=== PATIENT | male | born 1955 | race Caucasian/White ===

== ENCOUNTER → 2022-08-23 | Outpatient (CLI) | payer MEDICARE, BC, SELFPAY ==
[2022-08-26 14:08] LABS: QNTFERON TB Mitogen Value > 10.00 IU/mL (.); QNTFERON TB Nil Value 0.05 IU/mL (.); QNTFERON TB1+ Ag Value 0.04 IU/mL (.); QNTFERON TB2+ Ag Value 0.04 IU/mL (.)
[2022-08-26 18:25] LABS: QNTIFERON TB Positive Criteria Negative (Negative)
== END | disposition home or self-care (01) ==
LOC: MTLAB 08:58
PROVIDERS: PCP Family Medicine; Referring Provider Dermatology; Visit Provider Dermatology
DX: L40.0 Psoriasis vulgaris (principal); Z79.899 Other long term (current) drug therapy
CPT/HCPCS: 36415; 86480

== ENCOUNTER → 2023-12-05 | Outpatient (CLI) | payer MEDICARE, BC, SELFPAY ==
--- NOTE | 2023-12-05 08:30 | PET_ITS ---
EXAMINATION: FDG PET-CT INDICATIONS: A 68-year-old male with history of pulmonary nodularity. COMPARISON EXAMINATION: None available INDEX LESION SIZE SUV INTERPRETATION Right upper lung field, right upper lobe 7.1-mm 4.1 Fulfills quantitative criteria for viable neoplasm TECHNIQUE: Following the intravenous administration of 14.67 mCi of F-18 deoxyglucose via the left antecubital fossa, multiplanar image acquisitions of the neck, chest, abdomen and pelvis to level of mid thigh, obtained at one hour post radiopharmaceutical administration contemporaneously interpreted with the current CT of the neck, chest, abdomen and pelvis, to level of mid thigh, dated 12/05/23 via coregistration reveals: BLOOD GLUCOSE LEVEL:?? 87 mg/dl?HEIGHT:?65 inches?WEIGHT: 160 lbs. FINDINGS: Head/Neck: There is no evidence of abnormal increased glucose metabolism in the pharyngeal mucosal space, parapharyngeal space, bilateral-lateral and anterior neck, hypopharynx and distribution of the laryngeal structures. CHEST: Facilitated uptake is noted in the posterior aspect of the right upper lung, right upper lobe. The calculated maximal standard uptake value is 4.1. The maximal axial diameter of the corresponding parenchymal density is 7.1-mm. Prominent radiopharmaceutical concentration is identified in the left ventricular myocardium commensurate with the [place]. Pertinent chest CT findings are as follows. There is atherosclerotic calcification defined in the thoracic aorta without evidence of dilatation-aneurysm formation. Coronary arterial calcification is observed. Bilateral axillary soft tissue densities are non-glucose avid. Abdomen/Pelvis: Normal physiologic distribution of the radiopharmaceutical is apparent in the hepatic (2.9) and splenic parenchyma, both renal units, bladder and visualized intestinal tract. The abdomen and pelvis CT findings are as follows. There is atherosclerotic calcification defined in the abdominal aorta without evidence of dilatation-aneurysm formation. Pelvic arterial calcification is observed. There is evidence of prior vasectomy. Right and left inguinal soft tissue densities are ametabolic. Calcified phlebolith formation is noted in the left lower hemipelvis. Colonic diverticulosis is noted without evidence of diverticulitis. Skeletal: Degenerative changes are noted in the cervical, thoracic and lumbar spine without evidence of increased radiopharmaceutical concentration. PET/PET/CT Tumor Base -Thigh Init IMPRESSION: 1. ABNORMAL EXAMINATION INDICATIVE OF MALIGNANT VIABLE NEOPLASM. 2. Increased tracer uptake noted in the right hemithorax pulmonary parenchyma, right upper lobe, fulfills quantitative criteria for malignant transformation. Histopathologic analysis is recommended. (Gagan et al, Annals of Internal Medicine, 138:724, 2003). 3. No other quantitatively significant hypermetabolic abnormalities are noted. There is no scintigraphic evidence of distant metastatic disease. Electronic Signature Miguel Farrell D.O. Accurate Quantification of SUVs for this report are calculated using the exclusive [employer], (U.S. Patent No. [phone] [id number] [phone] [id number] [phone] [place] patent [id number] [phone] [phone] ). Standardization and correction of the FDG SUV metric exclusively available with [employer] intellectual property, allow for vendor non-specific objective quantitative sequential FDG PET-CT comparison and otherwise unobtainable optimization of the sensitivity and specificity of the examination. [email or web address] Electronically Signed: Miguel Farrell DO at 8:21 EDT ,
== END | disposition home or self-care (01) ==
PROVIDERS: PCP Family Medicine; Referring Provider Nurse Practitioner Family; Visit Provider Nurse Practitioner Family
DX: R91.1 Solitary pulmonary nodule (principal)
CPT/HCPCS: 78815; A9552

== ENCOUNTER 2024-01-02 18:33 | Emergency (ER) | payer MEDICARE, BC, SELFPAY ==
[2024-01-02] VITALS (13 sets, daily range): BP systolic 103–160; BP diastolic 47–115; PULSE 84–112; RESP 11–22; TEMP 37.1–37.7; O2SAT 95–99; BMI 28.4
--- NOTE | 2024-01-02 20:46 | EDS_ITS ---
HPI History of Present Illness Chief Complaint: General Illness Narrative Narrative: 68-year-old male presenting with generalized weakness, chills, cough. He states has been like this for 2 days. He states he has not had a fever and he checked his temperature. He states he has not taken any ibuprofen or Tylenol because it was not prescribed by a physician. Patient also states it is really hard for him to walk although he states he was able to walk to his car and drive here and walk into the emergency room. He states he has a history of cardiac stents and he does not want to mess anything up. He states he has decreased p.o. intake because he has constipation and does not want to make it worse. He has had constipation for several months and takes stool softeners and sporadically makes stool. He does not have any abdominal pain. No urinary symptoms. He has not had any sick contacts. Has not eaten anything exotic. No recent travel. [facility] Medical History HTN (hypertension) Lung nodule Allergy/AdvReac Type Severity Reaction Status Date / Time Penicillins Allergy Mild Hives Verified 01/02/24 18:36 Surgical History Hx of cardiac catheterization Social History Smoking Status: Former smoker ROS ROS ED ROS Narrative Generalized weakness Constitutional Constitutional ED: Denies chills, fever(s) or sweats Eyes Eyes: Denies blurry vision or change in vision ENT ENT ED: Denies ear pain or sore throat Cardiovascular Cardiovascular: Denies chest pain, palpitations or racing heartbeat Respiratory/Chest Respiratory/Chest: Reports cough; Denies dyspnea or sputum Gastrointestinal Gastrointestinal: Reports constipation; Denies abdominal pain, diarrhea, nausea or vomiting Genitourinary Genitourinary ED: Denies dysuria, hematuria or urinary frequency Musculoskeletal Musculoskeletal: Denies arthralgias, myalgias or neck pain Integumentary Denies abscess, Abrasions or rash Neurologic Neurologic: Denies headache(s), paresthesias or weakness Psychiatric Psychiatric: Denies anxiety, depression, suicidal ideation or suicidal thoughts Endocrine Endocrinology: Denies polydipsia or polyuria EXAM Physical Exam Const Vital Signs: 01/02/24 18:34 01/02/24 18:35 01/02/24 19:04 Temperature 99.7 F H 99 F Temperature Source Temporal Oral Pulse Rate 112 H 99 Respiratory Rate 22 H 19 H Respiratory Effort Short of Breath Respiratory Pattern Normal Blood Pressure 160/115 H 145/73 H Blood Pressure Mean 130 97 Pulse Ox 99 96 Oxygen Delivery Method Room Air Room Air 01/02/24 19:47 01/02/24 20:00 01/02/24 20:30 Temperature 99.8 F H Temperature Source Oral Pulse Rate 100 99 97 Respiratory Rate 16 11 L Respiratory Effort Respiratory Pattern Blood Pressure 119/56 L 123/57 H 131/64 H Blood Pressure Mean 77 75 83 Pulse Ox 95 96 Oxygen Delivery Method Room Air 01/02/24 20:45 01/02/24 21:00 01/02/24 21:15 Temperature Temperature Source Pulse Rate 94 Respiratory Rate 14 Respiratory Effort Respiratory Pattern Blood Pressure 124/97 H 120/63 117/63 Blood Pressure Mean 103 81 79 Pulse Ox 96 Oxygen Delivery Method 01/02/24 21:30 01/02/24 21:45 01/02/24 21:55 Temperature 98.8 F Temperature Source Oral Pulse Rate 88 88 Respiratory Rate 13 13 Respiratory Effort Respiratory Pattern Blood Pressure 112/61 111/47 L 111/47 L Blood Pressure Mean 78 57 68 Pulse Ox 96 96 96 Oxygen Delivery Method Room Air 01/02/24 23:06 Temperature 99.1 F Temperature Source Pulse Rate 84 Respiratory Rate 16 Respiratory Effort Respiratory Pattern Blood Pressure 103/58 L Blood Pressure Mean 73 Pulse Ox 96 Oxygen Delivery Method Positive well nourished General Appearance ED: NAD; Negative for pallor HEENT Reports moist mucous membranes Eyes PERRL and EOMs intact bilaterally General Eye ED: Negative for pale conjunctiva Chest Wall inspection of chest normal Resp normal respiratory effort and clear to auscultation bilaterally Auscultation: Negative for rales, rhonchi or wheezes Cardio regular rate and regular rhythm GI normal to inspection, nondistended, normoactive bowel sounds Extremity normal to inspection Neuro oriented x3 and CN's II-XII intact bilaterally Sensorium / Orientation: alert Motor Exam: strength 5/5 throughout Psych mental status grossly normal Skin no wounds General Skin Exam: Negative for jaundice or pallor MDM MDM MDM Narrative Medical decision making narrative: Patient presenting with fatigue, chills, without fever. Initial vital signs show tachycardia and tachypnea. Differential includes pneumonia, viral syndrome, dehydration, anemia. CBC was obtained to assess white blood cell count, hemoglobin, platelets. BMP to assess renal function, electrolytes, glucose. Chest x-ray to rule out pneumonia. Patient given IV fluids. CBC and BMP unremarkable. COVID, RSV, influenza all negative. Patient was ambulated in the hallway and maintained O2 sats 96% or higher. I do not believe he needs any further workup. I discussed this with him recommend plenty of fluids. He is to alternate Tylenol ibuprofen for fevers or bodyaches. Return precautions discussed. Impression: 1. Generalized weakness 2. Chills Lab Data Attestation: I reviewed the patient's lab results. Labs: Laboratory Results - last 24 hr 01/02/24 20:57 WBC 5.4 RBC 4.86 Hgb 14.0 Hct 43.2 MCV 88.9 MCH 28.8 MCHC 32.4 RDW Std Deviation 40.8 RDW Coeff of Ollie 12.4 Plt Count 81 L MPV 11.9 Immature Gran % (Auto) 0.600 Neut % (Auto) 87.2 H Lymph % (Auto) 3.7 L [place] % (Auto) 7.9 Eos % (Auto) 0.2 Baso % (Auto) 0.4 Absolute Neuts (auto) 4.7 Absolute Lymphs (auto) 0.20 L Nucleated RBC % 0 Differential Comment SCANNED Sodium 138 Potassium 3.9 Chloride 107 Carbon Dioxide 22.0 Anion Gap 9 BUN 23 H Creatinine 1.21 Estim Creat Clear Calc 56.12 Est GFR (MDRD) Af Amer 77 Est GFR (MDRD) Non-Af 63 BUN/Creatinine Ratio 19.0 Glucose 94 Calcium 9.2 Radiography Diagnostic Testing: Clinical Impression(s) from Imaging Studies Chest X-Ray 01/02/24 21:35 IMPRESSION: Right pulmonary nodule identified on 12/05/2023 is not well visualized radiographically. No additional acute findings. Electronically Signed: Dominick Brown DO at 22:06 EDT , Discharge Plan Triage Chief Complaint: General Illness ED Provider: Thad Morris Dx/Rx/DC Orders Instructions: ED Viral Syndrome (Adult), ED Weakness (Uncertain Cause) Primary Care Provider: Morro Solorio Referrals: Morro Solorio MD [Primary Care Provider] - Print Language: [place] Citizen Disposition Disposition: Home, Self Care Discharge Date/Time: 01/02/24 23:11
[2024-01-02] MEDS: 0.9% Normal Saline (1000mL) 1,000 ML 999 ML IV (20:55)
[2024-01-02 21:07] LABS: Absolute Neutrophil Count 4.7 X10^3/uL (2.0-7.7); Basophil# 0.02 X10^3/uL; Basophil% 0.4 % (0-1); Eosinophil# 0.01 X10^3/uL; Eosinophils% 0.2 % (0-5); Hematocrit 43.2 % (40-54); Lymphocyte % 3.7 % (19-41); Mean Corp Hgb Conc 32.4 g/dL (32-36); Mean Corpuscular Hgb 28.8 pg (27.0-32.0); Mean Corpuscular Volume 88.9 fL (80-94); Mean Platelet Vol. 11.9 fl (6.2-12.0); Monocyte# 0.43 X10^3/uL; Monocyte% 7.9 % (0-10); NRBC Flagged by Analyzer 0 % (0-5); Neutrophil # 4.73 X10^3/uL (2.7-7.7); Neutrophil % 87.2 % (47-70); POSITIVE COUNT YES; POSITIVE DIFFERENTIAL YES; Platelet Count 81 K/mm3 (150-450); RBC Distribution Width CV 12.4 % (11.6-14.6); RBC Distribution Width SD 40.8 fl (35.1-43.9); Red Blood Count 4.86 M/mm3 (4.6-6.2); White Blood Count 5.4 K/mm3 (4.4-11.0)
[2024-01-02 21:16] LABS: Differential Indicated SCAN CRITERIA MET
[2024-01-02 21:20] LABS: Anion Gap 9 (5-15); BUN 23 mg/dL (7-18); Calcium,Total 9.2 mg/dL (8.5-10.1); Chloride 107 mmol/L (98-107); Creatinine, Serum 1.21 mg/dL (0.70-1.30); EST Glomerular Filtration Rate 63 mL/min (>60); Est Glom Filt Rate - Afr Amer 77 mL/min (>60); Estimated Creatinine Clearance 56.12 ml/min; Glucose 94 mg/dL (74-106); Potassium 3.9 mmol/L (3.5-5.1); Sodium Level 138 mmol/L (136-145)
--- NOTE | 2024-01-02 21:35 | RAD_ITS ---
RAD/Chest 1 View (Portable) IMPRESSION: Right pulmonary nodule identified on 12/05/2023 is not well visualized radiographically. No additional acute findings. Electronically Signed: Dominick Brown DO at 22:06 EDT ,
[2024-01-02 21:50] LABS: Differential Comment SCANNED
== END 2024-01-02 23:11 | disposition home or self-care (01) ==
PROVIDERS: Emergency Provider Student in an Organized Health Care Education/Training Program; PCP Family Medicine; Visit Provider Student in an Organized Health Care Education/Training Program
DX: R53.1 Weakness (principal); Z87.891 Personal history of nicotine dependence; R68.83 Chills (without fever); Z95.5 Presence of coronary angioplasty implant and graft; I10 Essential (primary) hypertension
CPT/HCPCS: 71045; 80048; 85025; 87631; 99283; A4216

== ENCOUNTER 2024-02-17 05:25 | Emergency (ER) | payer MEDICARE, BC, SELFPAY ==
[2024-02-17 05:25] VITALS: BP 150/87; PULSE 98; RESP 16; TEMP 36.6; O2SAT 96
--- NOTE | 2024-02-17 05:39 | CT_ITS ---
EXAM: CT ABDOMEN AND PELVIS WITH INTRAVENOUS CONTRAST CLINICAL INDICATION: abd pain post thoracici surgery -- IV PO Contrast TECHNIQUE: Helically acquired images were obtained of the abdomen and pelvis with intravenous contrast. This CT exam was performed using one or more of the following dose reduction techniques: automated exposure control, adjustment of the mA and/or kV according to patient size, and/or use of iterative reconstruction technique. CONTRAST: 100 cc of Isovue-370 IV. With oral contrast. RADIATION DOSE: CTDIvol = 20.18 mGy, DLP = 1124.60 mGy-cm COMPARISON: No relevant prior studies available. FINDINGS: LOWER THORAX: Small right pleural effusion and atelectasis in the right lung base. Thickening of the interlobular septa in the right lung base consistent with interstitial disease. Coronary artery calcifications. No cardiomegaly. ABDOMEN: LIVER: Unremarkable. Homogeneous. No focal mass. GALLBLADDER AND BILE DUCTS: Unremarkable. No calcified gallstones. No gallbladder distention or wall edema. No intra- or extrahepatic biliary ductal dilation. PANCREAS: Unremarkable. No focal cystic or solid mass. SPLEEN: Unremarkable. Normal size without focal cystic or solid mass. ADRENALS: Unremarkable. No nodules. KIDNEYS AND URETERS: Unremarkable. Normal renal size and position. No hydronephrosis. STOMACH AND BOWEL: Unremarkable. No stomach or bowel distention. No focal inflammatory change. PELVIS: APPENDIX: No evidence of acute appendicitis. BLADDER: Unremarkable. REPRODUCTIVE: Unremarkable as visualized. No mass. ABDOMEN and PELVIS: INTRAPERITONEAL SPACE: Unremarkable. No ascites or other fluid collection. No free air. BONES/JOINTS: Unremarkable. No suspicious lytic or blastic abnormality. SOFT TISSUES: Small amount of gas in the deep soft tissues of the right chest wall posterolaterally. No discrete abdominal or pelvic wall hernia. VASCULATURE: Intrarenal abdominal aortic aneurysm measuring 3.4 cm. LYMPH NODES: Unremarkable. No enlarged lymph nodes. CT/Abdomen/Pelvis WITH Contrast IMPRESSION: 1. No acute abdominal pelvic abnormality. 2. Intrarenal abdominal aortic aneurysm measuring 3.4 cm. Recommend abdomen/pelvis CT or MR imaging follow-up in 3 years. 3. Small amount of gas in the deep soft tissues of the right chest wall posterolaterally. 4. Small right pleural effusion and atelectasis in the right lung base. 5. Thickening of the interlobular septa in the right lung base consistent with interstitial disease. 6. Coronary artery disease. Electronically Signed: Juice Riddle MD at 7:47 EDT ,
--- NOTE | 2024-02-17 05:41 | EDS_ITS ---
HPI HPI - GI History of Present Illness Chief Complaint: Chest Other Informant: patient Abdominal Pain/Flank Pain Onset: Days Context: Gradual Onset Timing: Continuous Quality: Aching Location: RUQ and Right Flank Current Severity: Moderate Maximum Severity: Moderate Worsened by: Movement Relieved by: Nothing Nausea/Vomiting/Emesis GI Symptom: Negative for Nausea or Vomiting Diarrhea/Melena/Hematochezia GI Symptom: Positive for - (Constipation.); Negative for Diarrhea, Melena or Hematochezia Onset: Days Associated Symptoms Associated Symptoms: Negative for Dysuria, Frequency, Hematuria or Urgency Narrative Narrative: 68-year-old male status post recent right chest surgery to remove a lung nodule that may be cancerous. Said he did not have any metastases. He has a prior history of CAD with 4 stents and a prior LA. Patient states he had the surgery around the was discharged from [facility] in he had right- sided abdominal right-sided chest discomfort since the surgery. Worse with movement. He has been on oxycodone for pain but he has been very constipated. Denies vomiting. Denies fever or dysuria. Prior similar symptoms: No Recent Illness/Hospitalization: Yes [facility] Medical History HTN (hypertension) Lung nodule Home Medications ?Medication ?Instructions ?Recorded ?Last Taken ?Type aspirin 81 mg capsule 81 mg PO DAILY 02/17/24 Unknown History atorvastatin 80 mg tablet 80 mg PO DAILY 02/17/24 Unknown History carvedilol 6.25 mg tablet 6.25 mg PO BID 02/17/24 Unknown History ezetimibe 10 mg tablet 10 mg PO DAILY 02/17/24 Unknown History lisinopril 5 mg tablet 5 mg PO DAILY 02/17/24 Unknown History oxycodone 5 mg tablet 5 mg PO TID PRN PRN pain 02/17/24 Unknown History Allergy/AdvReac Type Severity Reaction Status Date / Time Penicillins Allergy Mild Hives Verified 02/17/24 05:26 Surgical History Hx of cardiac catheterization Social History Smoking Status: Former smoker ROS ROS ED ROS Narrative Abdominal pain. Constipation. Review of Systems ROS Unobtainable: Denies due to encephalopathy Constitutional Constitutional ED: Denies chills or fever(s) ENT ENT ED: Denies ear pain Cardiovascular Cardiovascular: Reports chest pain Respiratory/Chest Respiratory/Chest: Denies cough or dyspnea Gastrointestinal Gastrointestinal: Reports abdominal pain and constipation; Denies diarrhea, melena, nausea or vomiting Genitourinary Genitourinary ED: Denies dysuria or hematuria Musculoskeletal Musculoskeletal: Denies arthralgias or back pain Integumentary Denies abscess, Abrasions or rash Neurologic Neurologic: Denies headache(s) Psychiatric Psychiatric: Denies anxiety or depression Endocrine Endocrinology: Denies polydipsia or polyphagia Hematologic/Lymphatic Hematologic/Lymphatic: Denies easy bleeding Allergic/Immunologic Allergic/Immunologic ED: Denies mouth swelling, tongue swelling or urticaria EXAM Physical Exam Narrative Exam Narrative: Well-appearing 68-year-old male. Vital signs stable afebrile. Pulse ox 96% on room air no hypoxia. H EENT exam unremarkable. Allergenics members. Neck nontender no JVD. Lungs clear to auscultation bilaterally. Heart regular rhythm rate about 95 no murmur. Chest wall and ribs Eila is mild tenderness to the right side chest wall is a surgical wound on the right posterior lateral chest. There is no redness or warmth. No crepitus or subcu air. Abdomen soft nondistended normal bowel sounds without peritoneal signs. His surgical wound on his right lateral abdomen. He is mildly tender around there. The site is dry and clean. His dressing in place. No hernia or mass on his abdominal exam. No signs of obstruction. Back nontender. Neurologically he is awake and alert. Answering questions and following commands. Const Vital Signs: 02/17/24 05:25 02/17/24 05:25 02/17/24 07:25 Temperature 98 F Temperature Source Oral Pulse Rate 98 94 Respiratory Rate 16 20 H Respiratory Effort Normal Non-Labored Blood Pressure 150/87 H 168/78 H Blood Pressure Mean 108 108 Pulse Ox 96 96 Oxygen Delivery Method Room Air Room Air Positive well nourished and well developed; Negative for obese, cachectic, contractures or unkempt General Appearance ED: well developed and NAD; Negative for unkempt, cachectic, contractures or pallor Nutritional Appearance: Negative for cachectic or obese HEENT Reports dry mucous membranes normocephalic and atraumatic; Negative for trauma or tenderness Mouth ED: Yes dry mucous membranes Mouth: dry mucous membranes Eyes PERRL and EOMs intact bilaterally General Eye ED: Negative for pale conjunctiva or scleral icterus Neck no lymphadenopathy, supple and no JVD General: Negative for tenderness Lymph Lymphatic: Negative for other Resp normal respiratory effort and clear to auscultation bilaterally Effort and Inspection: Negative for respiratory distress Auscultation: Negative for rales, rhonchi, wheezes or diminished lung sounds Cardio regular rate, regular rhythm, S1 normal heart sound, S2 normal heart sound and no murmurs Rate: Negative for bradycardia or tachycardic Rhythm: Negative for abnormal rhythm GI non-distended and no masses; Negative for non-tender GI Narrative: Well-healing right lateral abdominal incision. Mild tenderness or. No redness or warmth. No discharge or drainage. Inspection: Negative for abdominal distention Auscultation: normoactive bowel sounds Palpation: soft, tender and rebound tenderness present; Negative for guarding, mass or pulsatile mass Back/Spine no CVA tenderness General Back: Negative for CVA tenderness Cervical Spine: Negative for cervical spine tenderness Thoracic Spine / Upper Back: Negative for thoracic spinal tenderness Lumbar Spine / Lower Back: Negative for lumbar spinal tenderness Extremity full ROM General Extremety ED: Negative for edema or tenderness General Extremity: Negative for edema Neuro CN's II-XII intact bilaterally and moves all extremities Sensorium / Orientation: alert, oriented to person, oriented to place and oriented to time; Negative for orientation impaired, confused, lethargic or stuporous Motor Exam: strength 5/5 throughout Psych mental status grossly normal and thought process normal Appearance: Negative for unkempt Attitude: No agitated Mood & Affect: Negative for depressed, anxious or tearful Skin no wounds General Skin Exam: Negative for jaundice or pallor Lesions: no lesions Rashes: no rashes Trauma: Negative for abrasion Nails: Negative for discolored MDM MDM MDM Narrative Medical decision making narrative: 68-year-old male status post right-sided lung nodule that ended up being cancerous was removed right-sided abdominal and right lateral rib cage and chest wall pain. He did not waiting for pain due to his constipation. Chest x-ray and CAT scan his abdomen will be obtained along with screening labs. Repeat exam patient is doing well at 8:20 AM. He and I went over all his test results including chest x-ray and CAT scan. There is really no significant acute findings. He does have a small infrarenal abdominal aneurysm which of the follow-up with. His surgical sites appear to be healing appropriately. He is almost out of his pain medication will be written for prescription of Percocet for pain. Given a dose of morphine here and Zofran. And outpatient follow-up with his cardiothoracic surgeon. Tito at home for his constipation. History & Record Review Discussion w/independent historian: Patient Additional record(s) reviewed:: Prior inpatient record, Prior outpatient record, Prior ED visit, Prior labs and No prior records Lab Data Attestation: I reviewed the patient's lab results. Lab results narrative: CBC shows white count 11. H&H 12.8 and 38.6. Platelets 144. Electrolytes show sodium 134 gap 6. Normal BUN is 17 creatinine 0.8. Glucose 119. Liver enzymes normal. Labs: Laboratory Results - last 24 hr 02/17/24 06:10 WBC 11.0 RBC 4.43 L Hgb 12.8 L Hct 38.6 L MCV 87.1 MCH 28.9 MCHC 33.2 RDW Std Deviation 40.0 RDW Coeff of Ollie 12.7 Plt Count 144 L MPV 12.6 H Immature Gran % (Auto) 0.900 Neut % (Auto) 81.4 H Lymph % (Auto) 5.1 L [place] % (Auto) 11.1 H Eos % (Auto) 1.2 Baso % (Auto) 0.3 Absolute Neuts (auto) 9.0 H Absolute Lymphs (auto) 0.56 L Nucleated RBC % 0 Sodium 134 L Potassium 4.5 Chloride 102 Carbon Dioxide 26.0 Anion Gap 6 BUN 17 Creatinine 0.89 Est GFR (MDRD) Af Amer 110 Est GFR (MDRD) Non-Af 91 BUN/Creatinine Ratio 19.2 Glucose 119 H Calcium 9.0 Total Bilirubin 1.00 AST 30 ALT 86 H Alkaline Phosphatase 92 Total Protein 7.8 Albumin 3.2 Globulin 4.6 H Albumin/Globulin Ratio 0.7 L Radiography Chest X-Ray - ED: 2 View, Read by ED Physician, Normal, Heart, Lungs, Mediastinum, Bony Structures, No Acute Disease and Chronic Changes Diagnostic Testing: Clinical Impression(s) from Imaging Studies Abdomen/Pelvis CT 02/17/24 05:39 IMPRESSION: 1. No acute abdominal pelvic abnormality. 2. Intrarenal abdominal aortic aneurysm measuring 3.4 cm. Recommend abdomen/pelvis CT or MR imaging follow-up in 3 years. 3. Small amount of gas in the deep soft tissues of the right chest wall posterolaterally. 4. Small right pleural effusion and atelectasis in the right lung base. 5. Thickening of the interlobular septa in the right lung base consistent with interstitial disease. 6. Coronary artery disease. Electronically Signed: Juice Riddle MD at 7:47 EDT , Chest X-Ray 02/17/24 07:33 IMPRESSION: New small layering right pleural effusion with underlying atelectasis Electronically Signed: Jose Nobles MD at 8:12 EDT , Chest x-ray, 2 views, AP and lateral interpreted by myself shows no acute abnormality. Normal cardiac silhouette. Normal lung bermeo. Small right pleural effusion. No pneumothorax. No pneumonia. Discharge Plan Triage Chief Complaint: Chest Other ED Provider: Karl Ross Dx/Rx/DC Orders Clinical Impression: Post-op pain, History of lung cancer, History of thoracic surgery, Acute constipation Instructions: ED Constipation (Adult) Prescriptions: No Action oxycodone 5 mg tablet 5 mg PO TID PRN PRN (Reason: pain) aspirin 81 mg capsule 81 mg PO DAILY atorvastatin 80 mg tablet 80 mg PO DAILY carvedilol 6.25 mg tablet 6.25 mg PO BID ezetimibe 10 mg tablet 10 mg PO DAILY lisinopril 5 mg tablet 5 mg PO DAILY Primary Care Provider: Morro Solorio Referrals: Morro Solorio MD [Primary Care Provider] - As Needed Activity Restrictions/Additional Instructions: Follow-up with your cardiothoracic surgeon from [facility] Dr. Tadeo as scheduled. Return if you are feeling worse. Percocet for pain. Plenty of fruits, vegetables, fiber and walking to help get your bowels moving again. GoLytely 16 ounce glass every hour until you have a large bowel movement. Print Language: [place] Disposition Disposition: Home, Self Care
[2024-02-17 06:13] LABS: Absolute Lymphocyte Count 0.56 X10^3/uL (0.83-4.51); Basophil# 0.03 X10^3/uL; Basophil% 0.3 % (0-1); Eosinophil# 0.13 X10^3/uL; Eosinophils% 1.2 % (0-5); Hematocrit 38.6 % (40-54); Hemoglobin 12.8 g/dL (13.0-16.5); Lymphocyte # 0.56 X10^3/ul (0.83-4.51); Lymphocyte % 5.1 % (19-41); Mean Corp Hgb Conc 33.2 g/dL (32-36); Mean Corpuscular Hgb 28.9 pg (27.0-32.0); Mean Corpuscular Volume 87.1 fL (80-94); Mean Platelet Vol. 12.6 fl (6.2-12.0); Monocyte# 1.22 X10^3/uL; Monocyte% 11.1 % (0-10); NRBC Flagged by Analyzer 0 % (0-5); Neutrophil # 8.95 X10^3/uL (2.7-7.7); Neutrophil % 81.4 % (47-70); POSITIVE DIFFERENTIAL YES; Platelet Count 144 K/mm3 (150-450); RBC Distribution Width CV 12.7 % (11.6-14.6); Red Blood Count 4.43 M/mm3 (4.6-6.2)
[2024-02-17 06:44] LABS: ALB/GLOB Ratio 0.7 RATIO (0.9-2.4); AST(SGOT) 30 U/L (15-37); Alanine Aminotransfer ALT/SGPT 86 U/L (16-61); Albumin, Serum 3.2 g/dL (3.2-5.0); Alkaline Phosphatase 92 U/L (45-117); Anion Gap 6 (5-15); BUN 17 mg/dL (7-18); BUN/Creat Ratio 19.2 RATIO (10-20); Chloride 102 mmol/L (98-107); Creatinine, Serum 0.89 mg/dL (0.70-1.30); EST Glomerular Filtration Rate 91 mL/min (>60); Est Glom Filt Rate - Afr Amer 110 mL/min (>60); Globulin 4.6 g/dL (2.2-4.2); Glucose 119 mg/dL (74-106); Potassium 4.5 mmol/L (3.5-5.1); Protein, Total 7.8 g/dL (6.4-8.2); Sodium Level 134 mmol/L (136-145)
[2024-02-17 07:25] VITALS: BP 168/78; PULSE 94; RESP 20; O2SAT 96
--- NOTE | 2024-02-17 07:33 | RAD_ITS ---
INDICATION: S/P lung surgery 5 days ago, right lung, pain EXAMINATION/TECHNIQUE: X-RAY - XR Chest 2 Views COMPARISON: 01/02/24. FINDINGS: LINES/DEVICES: None. LUNGS: Small layering right effusion with underlying atelectasis. No left lung consolidation or effusion. No pneumothorax. MEDIASTINUM AND CARDIOVASCULAR STRUCTURES: Cardiac silhouette not enlarged. Mild aortic atherosclerosis. BONES AND SOFT TISSUES: Unremarkable. RAD/Chest PA and Lateral IMPRESSION: New small layering right pleural effusion with underlying atelectasis Electronically Signed: Jose Nobles MD at 8:12 EDT ,
[2024-02-17] MEDS: Ondansetron 4 MG/2 ML Vial IV (08:34)
[2024-02-17] MEDS: morphine 8 MG/ML Syringe IV (08:47)
[2024-02-17 08:49] VITALS: BP 138/67; PULSE 91; RESP 16; TEMP 36.6; O2SAT 96
[2024-02-17] MEDS: Electrolyte Solution/Peg's 4000 ML 2000 ML PO (09:13)
== END 2024-02-17 09:15 | disposition home or self-care (01) ==
PROVIDERS: Emergency Provider Emergency Medicine; PCP Family Medicine; Visit Provider Emergency Medicine
DX: G89.18 Other acute postprocedural pain (principal); K59.00 Constipation, unspecified; I25.10 Atherosclerotic heart disease of native coronary artery without angina pectoris; I10 Essential (primary) hypertension; I25.2 Old myocardial infarction; Z95.5 Presence of coronary angioplasty implant and graft; Z79.82 Long term (current) use of aspirin; Z79.899 Other long term (current) drug therapy; Z85.118 Personal history of other malignant neoplasm of bronchus and lung; Z87.891 Personal history of nicotine dependence
CPT/HCPCS: 71046; 74177; 80053; 85025; 96374; 96375; 99284; Q9967; A4216; J2405

== ENCOUNTER → 2024-03-22 | Outpatient (CLI) | payer MEDICARE, BC, SELFPAY ==
--- NOTE | 2024-03-22 10:26 | ART_ITS ---
Reason For Study: Other specified symptoms and signs involving the circulatory and respiratory systems Procedure A bilateral lower extremity continuous wave Doppler with analog waveform analysis and ankle brachial indexes. Left Segmental Pressures Left brachial= 122mmHg. Left posterior tibial artery = 97mmHg. Left dorsalis pedis artery = 98mmHg. Left digit = 69 mmHg. The left dorsalis pedis waveforms are biphasic. The left posterior tibial artery waveforms are biphasic. Right Segmental Pressures Right brachial= 126mmHg. Right posterior tibial artery = 137mmHg. Right dorsalis pedis artery = 134mmHg. Right digit = 134 mmHg. The right dorsalis pedis waveforms are triphasic. The right posterior tibial artery waveforms are triphasic. Indices The right ankle brachial index by the dorsalis pedis is 1.06. The right ankle brachial index by the posterior tibial artery is 1.09. The right digital-brachial index is 1.06. The left ankle brachial index by the dorsalis pedis is 0.78. The left ankle brachial index by the posterior tibial artery is 0.77. The left digital-brachial index is 0.55. VL/Ankle Brachial Index Interpretation Summary Triphasic Doppler waveforms are noted at ankle level on the right. Biphasic Dop pler waveforms are noted at ankle level on the left. Pulse-volume recordings appear diminished at digital level on the left, but satisfactory at ankle level bilaterally and at digital level on the r ight. The resting right ankle-brachial index is normal. The resting left ankle-brachial index is moderately diminished. The right digital-brachial index is normal. The left digital-brachi al index is mildly diminished. Arterial flow appears normal in the right lower extremity. There is evidence of [id number] arterial occlusive disease in the left lower extremity. Ordering Physician: Morro Solorio Referring Physician: TIMA SOLORIO MD Performed By: Latosha Clements RVT
== END | disposition home or self-care (01) ==
LOC: CVS 10:25
PROVIDERS: PCP Family Medicine; Referring Provider Family Medicine; Visit Provider Family Medicine
DX: R09.89 Other specified symptoms and signs involving the circulatory and respiratory systems (principal); R20.8 Other disturbances of skin sensation
CPT/HCPCS: 93922

== ENCOUNTER 2024-06-09 01:32 | Emergency (ER) | payer MEDICARE, BC, SELFPAY ==
[2024-06-09 01:33] VITALS: BP 158/76; PULSE 66; RESP 12; TEMP 36.4; O2SAT 98; BMI 27.3
[2024-06-09 02:09] LABS: Absolute Lymphocyte Count 1.05 X10^3/uL (0.83-4.51); Basophil# 0.03 X10^3/uL; Basophil% 0.9 % (0-1); Eosinophils% 2.8 % (0-5); Hematocrit 41.1 % (40-54); Hemoglobin 13.4 g/dL (13.0-16.5); Lymphocyte # 1.05 X10^3/ul (0.83-4.51); Lymphocyte % 29.9 % (19-41); Mean Corp Hgb Conc 32.6 g/dL (32-36); Mean Corpuscular Volume 85.8 fL (80-94); Mean Platelet Vol. 12.2 fl (6.2-12.0); Monocyte# 0.35 X10^3/uL; NRBC Flagged by Analyzer 0 % (0-5); Neutrophil # 1.96 X10^3/uL (2.7-7.7); Neutrophil % 55.8 % (47-70); Platelet Count 118 K/mm3 (150-450); RBC Distribution Width CV 12.9 % (11.6-14.6); RBC Distribution Width SD 39.8 fl (35.1-43.9); Red Blood Count 4.79 M/mm3 (4.6-6.2); White Blood Count 3.5 K/mm3 (4.4-11.0)
[2024-06-09 02:25] LABS: Anion Gap 4 (5-15); BUN 18 mg/dL (7-18); BUN/Creat Ratio 18.9 RATIO (10-20); Calcium,Total 8.7 mg/dL (8.5-10.1); Chloride 108 mmol/L (98-107); Creatinine, Serum 0.95 mg/dL (0.70-1.30); EST Glomerular Filtration Rate 83 mL/min (>60); Est Glom Filt Rate - Afr Amer 101 mL/min (>60); Estimated Creatinine Clearance 70.29 ml/min; Glucose 106 mg/dL (74-106); Potassium 4.1 mmol/L (3.5-5.1); Sodium Level 140 mmol/L (136-145); Troponin-I HS (w/2H Reflex) 11 pg/mL (3.0-78.0)
[2024-06-09 02:33] VITALS: BP 129/75; PULSE 64; RESP 18; O2SAT 96
[2024-06-09 03:00] VITALS: BP 112/67; PULSE 61; RESP 14; O2SAT 96
[2024-06-09 04:00] VITALS: BP 119/63; PULSE 62; RESP 16; O2SAT 97
[2024-06-09 04:05] LABS: Reflex Troponin-HS? (from REC) Y
[2024-06-09 04:45] LABS: Troponin-I HS 30 pg/mL (3.0-78.0)
[2024-06-09 04:50] VITALS: BP 128/66; PULSE 60; RESP 16; TEMP 36.8; O2SAT 96
== END 2024-06-09 04:56 | disposition home or self-care (01) ==
PROVIDERS: Emergency Provider Emergency Medicine; PCP Family Medicine; Visit Provider Emergency Medicine
DX: R07.89 Other chest pain (principal); I10 Essential (primary) hypertension; I25.10 Atherosclerotic heart disease of native coronary artery without angina pectoris; Z87.891 Personal history of nicotine dependence; Z79.82 Long term (current) use of aspirin; Z79.899 Other long term (current) drug therapy; Z95.5 Presence of coronary angioplasty implant and graft
CPT/HCPCS: 71045; 80048; 84484; 85025; 93005; 99284; A4216

== ENCOUNTER → 2024-06-14 | Outpatient (CLI) | payer MEDICARE, BC, SELFPAY ==
--- NOTE | 2024-06-14 08:17 | CDU_ITS ---
Reason For Study: History of CAD, PAD Rt. Velocities/BP Lt. Velocities/BP Prox CCA 100.3/17.9 cm/sec. Prox CCA 122.9/22.5 cm/sec. Mid CCA 113.3/22.5 cm/sec. Mid CCA 113.8/20.6 cm/sec. Dist CCA 109.7/26.2 cm/sec. Dist CCA 101/18.8 cm/sec. Prox ICA 84.6/15.2 cm/sec. Prox ICA 79.1/20.6 cm/sec. Mid ICA 94.9/26.2 cm/sec. Mid ICA 85.1/22.5 cm/sec. Dist ICA 69.1/23.7 cm/sec. Dist ICA 88.8/26.2 cm/sec. Rt. ICA/CCA = 0.84. Lt. ICA/CCA = 0.78. Prox ECA 143/9.7 cm/sec. Prox ECA 99.2/7.9 cm/sec. Rt. Vert. 50.7/12.6 cm/sec. Lt. Vert. 60.5/13.9 cm/sec. Right Extracranial There is homogeneous, smooth atherosclerotic plaque noted in the right common carotid artery. There is intimal thickening but no significant atherosclerotic plaque noted in the right internal carotid artery. There is intimal thickening but no significant atherosclerotic plaque noted in the right external carotid artery. Antegrade flow is noted in the right vertebral artery. Left Extracranial There is homogeneous, smooth atherosclerotic plaque noted in the left common carotid artery. There is homogeneous, smooth atherosclerotic plaque noted in the left internal carotid artery. There is intimal thickening but no significant atherosclerotic plaque noted in the left external carotid artery. Antegrade flow is noted in the left vertebral artery. Procedure Carotid Duplex 28822. This is a Carotid Duplex examination using B-mode, color flow and specral Doppler. Exam performed in department. VL/Carotid Duplex Ultrasound Interpretation Summary Normal right extracranial internal carotid. Mild (<50%) stenosis left extracranial internal carotid. Patent and antegrade vertebrals bilaterally. Ordering Physician: Roxana Plata Referring Physician: Guy Zheng Performed By: Latosha Clements RVT
== END | disposition home or self-care (01) ==
LOC: CVS 08:17
PROVIDERS: PCP Family Medicine; Referring Provider Physician Assistant; Visit Provider Physician Assistant
DX: I65.21 Occlusion and stenosis of right carotid artery (principal); I73.9 Peripheral vascular disease, unspecified; I77.9 Disorder of arteries and arterioles, unspecified
CPT/HCPCS: 93880

== ENCOUNTER → 2025-03-12 | Outpatient (CLI) | payer MEDICARE, BC, SELFPAY ==
[2025-03-14 05:07] LABS: QNTFERON TB Mitogen Value > 10.00 IU/mL (.); QNTFERON TB Nil Value 0.03 IU/mL (.); QNTFERON TB1+ Ag Value 0.02 IU/mL (.); QNTFERON TB2+ Ag Value 0.02 IU/mL (.); QNTIFERON TB Positive Criteria Negative (Negative)
== END | disposition home or self-care (01) ==
LOC: MTLAB 08:52
PROVIDERS: PCP Family Medicine; Referring Provider Dermatology; Visit Provider Dermatology
DX: L40.0 Psoriasis vulgaris (principal)
CPT/HCPCS: 36415; 86480

== ENCOUNTER → 2025-06-12 | Outpatient (CLI) | payer MEDICARE, BC, SELFPAY ==
--- NOTE | 2025-06-12 07:10 | ART_ITS ---
Reason For Study Reason For Study: PVD Procedure A bilateral lower extremity continuous wave Doppler with analog waveform analysis,segmental pressures,and ankle brachial indexes with exercise. Left Segmental Pressures Left brachial= 97mmHg. Left low thigh = 110mmHg. Left calf = 79mmHg. Left posterior tibial artery = 96mmHg. Left dorsalis pedis artery = 93mmHg. Left digit = 73 mmHg. The left posterior tibial artery waveforms are biphasic. The left dorsalis pedis waveforms are biphasic. Right Segmental Pressures Right brachial= 100mmHg. Right posterior tibial artery = 123mmHg. Right dorsalis pedis artery = 114mmHg. Right digit = 91 mmHg. The right posterior tibial artery waveforms are triphasic. The right dorsalis pedis waveforms are triphasic. Indices The right ankle brachial index by the posterior tibial artery is 1.23. The right ankle brachial index by the dorsalis pedis is 1.14. The right digital-brachial index is 0.91. The right post exercise ankle brachial index is 1.17. The left ankle brachial index by the posterior tibial artery is 0.96. The left ankle brachial index by the dorsalis pedis is 0.93. The left digital-brachial index is 0.73. The left post exercise ankle brachial index is 0.87. VL/Lower Ext Art Exam w/ Exercise Interpretation Summary Right LINH 1.23, normal. TBI and Doppler/PVR waveforms of the right leg normal a t rest. Right lower extremity exhibits normal response to exercise. Left LINH 0.96, mild arterial insufficiency. Doppler/PVR waveforms and segmental pressures reveal distal SFA/popliteal disease. Left lower extremity exhibits no change in response to exercise Ordering Physician: Roxana Plata Referring Physician: Morro Solorio Performed By: Len Castro RVT
--- OUTSIDE RECORDS SUMMARY | 2025-06-12 07:33 | XMS RPT_ITS | CCD ---
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 Name Role Phone WALTER GRESHAM Attending Unavailable SHAYNA SHAH Primary Care Unavailable WALTER GRESHAM Attending Unavailable SHAYNA SHAH Primary Care Unavailable Shayna Shah Primary Care Provider Tima Tello MD Primary Care Provider Shayna Shha DO Primary Care Provider Tima Tello MD Primary Care Provider Shayna Shah DO Primary Care Provider Tima Tello MD Primary Care Provider TIMA GUARDADO Admitting Unavailab TIMA Goncalves Attending Unavailab TIMA Garcia Primary Care Unavailab nupur Nunez MD, Daesung Unavailable Becky Tineo MD Unavailable Tima Tello MD Primary Care Provider [phone] Provider Chavez URRUTIA Unavailable Unavailable [place] PULLER OVER.DISASTER RECOVERY MANAGER, Charo Unavailable TIMA TELLO Primary Care Unavailab FRED Flor Attending Unavailable NADEGE TADEO Admitting Unavailable NADEGE TADEO Attending Unavailable NADEGE TADEO Referring Unavailable TIMA TELLO Primary Care Unavailab TIMA Garcia Primary Care Unavailab NADEGE Vanessa Attending Unavailable NADEGE TADEO Referring Unavailable TIMA TELLO Primary Care Unavailab SHAYLEE Carrillo Attending Unavailable TIMA TELLO Primary Care Unavailab TIMA Garcia Primary Care Unavailab FRED Flor Referring Unavailable Juanita RN, Irma Unavailable Unavailable Juanita RN, Irma Unavailable Unavailable Podlogar PULLER OVER.RENEE, Alejandra Unavailable Dylan PULLER OVER.DISASTER RECOVERY MANAGERJenna Unavailable Lyndsey URRUTIA, Dr. Hooker Primary Care Provider Jannie URRUTIA, Dr. Garcia Attending Provider Jannie URRUTIA, Dr. Garcia Referring Provider Juanita RN, Irma Unavailable Unavailable JUAN BROOKLYNN Admitting Unavailable JUANBROOKLYNN Attending Unavailable BURSLEY, CHRISTOPHER Primary Care Unavailable PATSY TELLES Unavailable BITTENBENDERBECKY Admitting Unavailable BITTENBENDER PETER Attending Unavailable BURSLEY, CHRISTOPHER Primary Care Unavailable BITTENBENDERBECKY Attending Unavailable BURSLEY, CHRISTOPHER Primary Care Unavailable HORACE MARTINEZ Attending Unavailable BURSLEY, CHRISTOPHER Primary Care Unavailable BROOKLYNN MARTINEZ Attending Unavailable BURSLEY, CHRISTOPHER Primary Care Unavailable YARA FLOWERS Attending Unavailable BURSLEY, CHRISTOPHER Primary Care Unavailable BROOKLYNN MARTINEZ Attending Unavailable BURSLEY, CHRISTOPHER Primary Care Unavailable YARA FLOWERS Attending Unavailable BURSLEY, CHRISTOPHER Primary Care Unavailable YARA FLOWERS Attending Unavailable BURSLEY, CHRISTOPHER Primary Care Unavailable YARA FLOWERS Attending Unavailable BURSLEY, CHRISTOPHER Primary Care Unavailable BROOKLYNN MARTINEZ Referring Unavailable BURSLEY, CHRISTOPHER Primary Care Unavailable HORACE MARTINEZ Attending Unavailable HORACE MARTINEZ Referring Unavailable BURSLEY, CHRISTOPHER Primary Care Unavailable BURSLEY, CHRISTOPHER B Primary Care Unavailab le VETOVIRAN, NAN Referring Unavailable BURSLEY, CHRISTOPHER B Primary Care Unavailab le ANALY DUMONT Attending Unavailable BURSLEY, CHRISTOPHER B Primary Care Unavailab le BURSLEY, CHRISTOPHER B Referring Unavailab le BURSLEY, CHRISTOPHER B Primary Care Unavailab le PODALEJANDRA CHERRY Attending Unavailable BURSLEY, CHRISTOPHER B Primary Care Unavailab le BURSLEY, CHRISTOPHER B Referring Unavailab SARAY Rucker Attending Unavailable BURSLEY, CHRISTOPHER B Primary Care Unavailab GISSELLE Conway Attending Unavailable BURSLEY, CHRISTOPHER B Primary Care Unavailab le YVES, SARAY Referring Unavailable TIMA TELLO Primary Care Unavailab le YVES, SARAY Referring Unavailable MAE ROBLES Attending Unavailable TIMA TELLO Primary Care Unavailab le YVES, SARAY Referring Unavailable MAXINE GOULD Attending Unavailable TIMA TELLO Primary Care Unavailab le GERMANIA TELLOER Arnulfo Referring Unavailab CRISTO Ortega Attending Unavailable TIMA TELLO Primary Care Unavailab le YVES, SARAY Attending Unavailable TIMA TELLO Primary Care Unavailab le MASCANALY Mckenzie Attending Unavailable TIMA TELLO Primary Care Unavailab le MASCANALY Mckenzie Attending Unavailable TIMA TELLO Primary Care Unavailab le TIMA TELLO Attending Unavailab le TIMA TELLO Primary Care Unavailab le GERMANIA TELLOER Arnulfo Primary Care Unavailab le MASCANALY Mckenzie Referring Unavailable TIMA TELLO Primary Care Unavailab nupur MASCIANALY Referring Unavailable TIMA TELLO Primary Care Unavailab le TIMA TELOL Referring Unavailab le GERMANIA TELLOER Arnulfo Primary Care Unavailab le BLACKWELL, HAKAN Referring Unavailable TIMA TELLO Primary Care Unavailab le BLACKWELLHAKAN Referring Unavailable TIMA TELLO Primary Care Unavailab le PODALEJANDRA CHERRY Attending Unavailable TIMA TELLO Primary Care Unavailab GISSELLE Conway Attending Unavailable TIMA TELLO Primary Care Unavailab le MASCANALY Mckenzie Referring Unavailable HAKAN BLACKWELL Attending Unavailable TIMA TELLO Primary Care Unavailab FORTUNATO Christensen Attending Unavailable TIMA TELLO Primary Care Unavailab le PODLOGALEJANDRA ALCALA Attending Unavailable TIMA TELLO Primary Care Unavailab nupur RHIANNONFORTUNATO CLEMENT Referring Unavailable TIMA TELLO Primary Care Unavailab le GERMANIA TELLOER Arnulfo Primary Care Unavailab le VETONAN PAZ Referring Unavailable TIMA TELLO Primary Care Unavailab le NAN NG Attending Unavailable Morro Tello Primary Care Unavailable Roxana Plata Referring Unavailable David Petersen Attending Unavailable [facility] Unavailable Roxana Plata Attending Unavailable Roxana Plata Referring Unavailable [facility] Primary [facility] Unavailable Blaze Burnett Attending Unavailable Blaze Burnett Referring Unavailable Jose Valderrama Attending Unavailable Jose Valderrama Referring Unavailable [facility] Unavailable Roxana Plata Attending Unavailable Roxana Plata Referring Unavailable [facility] Primary Care Unavailable Allergies Allergy Classification Reported Allergen(s) Allergy Type Date of Onset Reaction(s) Facility Penicillins (antibiotic) (1 source) Penicillins Drug Allergy 8 [facility] (1 source) Codeine Drug Allergy 7 [facility] Work Phone: (1 source) oxyCODONE Drug Allergy 7 [facility] Work Phone: (5 sources) Penicillins; Translations: [PENICILLINS] Propensity to adverse reactions to drug 8 [facility] Work Phone: (4 sources) Penicillins Propensity to adverse reactions 8 [facility] Work Phone: (20 sources) Penicillins Drug Allergy 8 [facility] (20 sources) Penicillins Propensity to adverse reactions 4 [facility] (15 sources) Penicillins Drug Allergy 8 [facility] (1 source) Penicillins Allergy to substance 4 [facility] (1 source) Penicillins Drug allergy (disorder) 4 [facility] Medications Current Medications Medication Drug Class(es) Dates Sig (Normalized) Sig (Original) atorvastatin 80 mg oral tablet (20 sources) HMG-CoA Reductase Inhibitor Start: 12-08-2021 End: 12-07-2024 take 1 tablet by mouth once daily at bedtime for hyperlipidemia atorvastatin (LIPITOR) 80 mg tablet Indications: Mixed hyperlipidemia Take 1 tablet by mouth daily at bedtime. For cholesterol. 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 For cholesterol. carvedilol 6.25 mg oral tablet (20 sources) alpha-Adrenergic Aric, beta-Adrenergic Aric Start: 0 End: take 1 tablet by mouth twice daily Carvedilol 6.25 mg tablet Active 6.25 mg PO TWICE A DAY February 17, 2024 12:00am take 1 tablet by mouth once todd y carvedilol (COREG) 6.25 mg tablet Take 6.25 mg by mouth once daily. 0 Active Comment on above: Take 6.25 mg by mout h twice daily with meals. cephalexin 500 mg oral capsule (5 sources) Cephalosporin Antibacterial Start: End: take 1 capsule by mouth three times daily cephALEXin (KEFLEX) 500 mg capsule Take 1 capsule by mouth three times a day for 5 days. 15 capsule 05/01/2024 05/06/2024 Active clopidogrel 75 mg oral tablet (20 sources) P2Y12 Platelet Inhibitor Start: End: clopidogrel (PLAVIX) 75 mg tablet Take 75 mg by mouth. 07/31/2024 Active cyclobenzaprine hydrochloride 10 mg oral tablet (4 sources) Muscle Relaxant Start: End: take 1 tablet by mouth three times daily as needed for pain cyclobenzaprine (FLEXERIL) 10 mg tablet Indications: Acute post-operative pain , History of thoracotomy Take 1 tablet by mouth three times a day as needed for muscle spasm or pain for up to 10 days. 30 tablet 0 02/22/2024 03/03/2024 Active Start: 05-05-2021 End: 11-23-2021 take 1 tablet by mouth every eight hours as needed cyclobenzaprine (FLEXERIL) 10 mg tablet Take 1 tablet by mouth three times daily as needed for muscle spasm. 21 tablet 0 05/05/2021 11/23/2021 Discontinued Comment on above: Take 1 tablet by desi th three times daily as needed for muscle spasm. docusate sodium 100 mg oral capsule (11 sources) Start: take 1 capsule by mouth twice daily as needed for constipation docusate sodium (COLACE) 100 mg capsule Indications: Chronic constipation , Melena , Generalized abdominal pain Take 1 capsule by mouth two times a day as needed for constipation. 60 capsule 2 03/19/2025 Active doxycycline hyclate 100 mg oral tablet (6 sources) Tetracycline-class Drug Start: End: take 1 tablet by mouth twice daily doxycycline (VIBRA-TABS) 100 mg tablet Indications: Left leg cellulitis Take 1 tablet by mouth two times a day for 5 days. 10 tablet 05/06/2024 05/11/2024 Active ezetimibe 10 mg oral tablet (20 sources) Dietary Cholesterol Absorption Inhibitor Start: End: take 1 tablet by mouth once daily ezetimibe (ZETIA) 10 mg tablet Take 10 mg by mouth once daily. 08/28/2024 08/28/2025 Active Comment on above: Take 1 tablet by desi once daily. 24 hr isosorbide mononitrate 30 mg extended release oral tablet (20 sources) Nitrate Vasodilator Start: End: take 1 tablet by mouth once daily, then take 1 tablet by mouth every twenty-four hours isosorbide mononitrate ER (IMDUR) 30 mg 24 hr tablet Take 30 mg by mouth once daily. 07/22/2024 Active iv contrast (will be provided with radiology test) (20 sources) Start: End: iv contrast (will be provided with radiology test) CT Chest W -Inject, intravenously, once for 1 dose.No IV access, insert saline lock prior to the beginning of sedation, infusion, injection of imaging exam. Discontinue saline lock post exam. If Pt. has a central line or IVAD, may access for administration according to line specific nursing protocol. Once exam is complete flush line and de-access according to line specific nursing protocol in theCT contrast administration guidelines link. 1 each 04/09/2025 04/10/2025 Active Start: 03-19-2025 End: 03-21-2025 iv contrast (will be provide d with radiology test) Indications: Melena , Generalized abdominal pain CT ABD/PEL -Inject, intravenously, once for 1 dose.No IV access, insert saline lock prior to the beginning of sedation, infusion, injection of imaging exam. Discontinue saline lock post exam. If Pt. has a central line or IVAD, may access for administration according to line specific nursing protocol. Once exam is complete flush line and de-access according to line specific nursing protocol in theCT contrast administration guidelines link. 1 each 03/19/2025 03/21/2025 Discontinued Start: 03-19-2025 End: 03-20-2025 iv contrast (will be provide d with radiology test) Indications: Melena , Generalized abdominal pain CT ABD/PEL -Inject, intravenously, once for 1 dose.No IV access, insert saline lock prior to the beginning of sedation, infusion, injection of imaging exam. Discontinue saline lock post exam. If Pt. has a central line or IVAD, may access for administration according to line specific nursing protocol. Once exam is complete flush line and de-access according to line specific nursing protocol in theCT contrast administration guidelines link. 1 each 03/19/2025 03/20/2025 Active Start: 03-18-2025 End: 03-19-2025 iv contrast (will be provide d with radiology test) Indications: Primary lung adenocarcinoma, right (HCC) CT Chest W -Inject, intravenously, once for 1 dose.No IV access, insert saline lock prior to the beginning of sedation, infusion, injection of imaging exam. Discontinue saline lock post exam. If Pt. has a central line or IVAD, may access for administration according to line specific nursing protocol. Once exam is complete flush line and de-access according to line specific nursing protocol in theCT contrast administration guidelines link. 1 each 03/18/2025 03/19/2025 Active Start: 09-09-2024 End: 09-10-2024 iv contrast (will be provide d with radiology test) Indications: Malignant neoplasm of unspecified part of unspecified bronchus or lung (HCC) , S/P lobectomy of lung CT Chest W -Inject, intravenously, once for 1 dose.No IV access, insert saline lock prior to the beginning of sedation, infusion, injection of imaging exam. Discontinue saline lock post exam. If Pt. has a central line or IVAD, may access for administration according to line specific nursing protocol. Once exam is complete flush line and de-access according to line specific nursing protocol in the CT contrast administration guidelines link. 1 Each 09/09/2024 09/10/2024 Active Start: 03-20-2024 End: 09-09-2024 iv contrast (will be provide d with radiology test) CT Chest W -Inject, intravenously, once for 1 dose.No IV access, insert saline lock prior to the beginning of sedation, infusion, injection of imaging exam. Discontinue saline lock post exam. If Pt. has a central line or IVAD, may access for administration according to line specific nursing protocol. Once exam is complete flush line and de-access according to line specific nursing protocol in the CT contrast administration guidelines link. 1 Each 03/20/2024 09/09/2024 Discontinued (Course of therapy completed) Start: 03-20-2024 iv contrast (w ill be provided with radiology test) CT Chest W -Inject, intravenously, once for 1 dose.No IV access, insert saline lock prior to the beginning of sedation, infusion, injection of imaging exam. Discontinue saline lock post exam. If Pt. has a central line or IVAD, may access for administration according to line specific nursing protocol. Once exam is complete flush line and de-access according to line specific nursing protocol in the CT contrast administration guidelines link. 1 Each 03/20/2024 Active lisinopril 5 mg oral tablet (20 sources) Angiotensin Converting Enzyme Inhibitor Start: 12-27-2019 End: 08-12-2024 take 1 tablet by mouth once daily Lisinopril 5 mg tablet Active 5 mg PO DAILY February 17, 2024 12:00am Comment on above: Take 5 mg by mouth o nce daily. metoprolol tartrate 25 mg oral tablet (20 sources) beta-Adrenergic Aric Start: 07-28-2024 2.5 mg, IntraVENous, Once, On 07/28/24 at 1430, For 1 dose Start: 07-28-2024 End: 07-28-2024 take 2.5 mg intravenously every six hours 2.5 mg, IntraVENous, Every 6 hours, First dose on 07/28/24 at 2000 Start: 07-28-2024 End: 12-26-2024 take 1 tablet by mouth twice daily metoprolol tartrate (Lopressor) 25 MG tablet Take 1 tablet (25 mg) by mouth 2 times daily. 60 tablet 3 08/28/2024 Active Start: 07-27-2024 End: 07-28-2024 12.5 mg, Oral, 2 times daily , First dose on Mon07/27/24 at 0900, Hold for SBP less than 105 and/or MAPs less than 65 and/or HR less than 60 Nutritional Supplements (Ensure High Protein) liquid (3 sources) Start: 09-18-2024 End: 10-18-2024 Nutritional Supplements (Ensure High Protein) liquid Take 1 Bottle by mouth 2 times daily. 67481 mL 1 09/18/2024 10/18/2024 Active pantoprazole 20 mg delayed release oral tablet (3 sources) Proton Pump Inhibitor Start: 04-15-2025 End: 07-14-2025 take 1 tablet by mouth once daily pantoprazole DR (PROTONIX) 20 mg tablet Take 1 tablet by mouth once daily. 90 tablet 04/15/2025 07/14/2025 Active Start: 07-26-2024 End: 07-31-2024 take 40 mg by mouth once daily before breakfast 40 mg, Oral, Daily before breakfast, First dose on Mon07/26/24 at 0630, Do not crush, chew, or split. polyethylene glycol 3350 48896 mg powder for oral solution (13 sources) Osmotic Laxative Start: 03-19-2025 End: 06-17-2025 polyethylene glycol 3350 (MIRALAX) 17 gram/dose powder Take 17 g by mouth two times a day. Dissolve dose in 4 - 8 ounces of liquid and take as directed. 1020 g 2 03/19/2025 06/17/2025 Active Start: 07-26-2024 End: 07-31-2024 17 g, Oral, Daily, First dos e on Mon07/26/24 at 0900, Recovery & On Unit, Bowel Regimen - for prevention of constipation. traMADol hydrochloride 50 mg oral tablet (4 sources) Opioid Agonist Start: 02-29-2024 End: 03-07-2024 take 1 tablet by mouth every six hours as needed for pain traMADol (ULTRAM) 50 mg tablet Indications: Adenocarcinoma, lung, right (HCC) Take 1 tablet by mouth every 6 hours as needed for pain for up to 7 days. 28 tablet 0 02/29/2024 03/07/2024 Active Completed/Discontinued Medications Medication Drug Class(es) Dates Sig (Normalized) Sig (Original) acetaminophen 500 mg oral tablet (15 sources) Start: 07-31-2024 End: 08-30-2024 take 2 tablets by mouth three times daily acetaminophen (Tylenol) 500 MG tablet Take 2 tablets (1,000 mg) by mouth 3 times daily. 180 tablet 07/31/2024 08/30/2024 Start: 07-25-2024 End: 07-31-2024 take 1 tablet by mouth every eight hours 1,000 mg, Oral, Every 8 hours, First dose on Marjorie 07/25/24 at 1400, Recovery & On Unit Start: 02-22-2024 End: 02-22-2024 take 2 tablets by mouth once acetaminophen (TYLENOL) 5 00 mg tablet Indications: Acute post-operative pain , History of thoracotomy Take 2 tablets by mouth one time only for 1 dose. Please take morning of surgery. 0 02/22/2024 02/22/2024 Active Start: 01-29-2024 End: 01-29-2024 take 2 tablets by mouth once acetaminophen (TYLENOL EX TRA STRENGTH) 500 mg tablet Take 2 tablets by mouth one time only for 1 dose. Take morning of surgery 2 tablet 0 01/29/2024 01/29/2024 Active acetaminophen 325 mg / oxyCODONE hydrochloride 5 mg oral tablet (1 source) Opioid Agonist Start: 02-17-2024 End: 06-07-2024 Oxycodone-Acetaminophen (Percocet) 5-325 mg tablet Discontinued 1 {tbl} PO Q4H as needed for pain 20 5 0 February 17, 2024 June 07, 2024 10:03am History of thoracic surgery Other specified postprocedural states 20 ml albumin human, long term 250 mg/ml injection (10 sources) Human Serum Albumin Start: 07-25-2024 End: 07-25-2024 50 g, IntraVENous, at 200 mL/hr, Once, On Marjorie 07/25/24 at 1515, For 1 dose, Infusion rate depends on indication and clinical situation. In emergencies, may administer as rapidly as necessary to improve clinical condition. After initial volume replacement: 25%: Do not exceed 1 mL/minute (60 mL/hr) in patients with normal plasma volume; 2 to 3 mL/minute (120 to 180 mL/hr) in patients with hypoproteinemia Start: 07-25-2024 End: 07-25-2024 50 g, IntraVENous, at 200 mL /hr, Once, On Marjorie 07/25/24 at 1515, For 1 dose, Infusion rate depends on indication and clinical situation. In emergencies, may administer as rapidly as necessary to improve clinical condition. After initial volume replacement: 25%: Do not exceed 1 mL/minute (60 mL/hr) in patients with normal plasma volume; 2 to 3 mL/minute (120 to 180 mL/hr) in patients with hypoproteinemia Start: 07-25-2024 End: 07-25-2024 Starting on Marjorie 24 at 1506, For 1 dose, Sebastián Colbert: grisel eli Start: 07-25-2024 End: 07-31-2024 50 g, IntraVENous, at 200 mL /hr, Once, On Marjorie 07/25/24 at 1315, For 1 dose, Infusion rate depends on indication and clinical situation. In emergencies, may administer as rapidly as necessary to improve clinical condition. After initial volume replacement: 25%: Do not exceed 1 mL/minute (60 mL/hr) in patients with normal plasma volume; 2 to 3 mL/minute (120 to 180 mL/hr) in patients with hypoproteinemia Start: 07-25-2024 End: 07-25-2024 IntraVENous, As needed, Star ting on Marjorie 07/25/24 at 1137, Anesthesia Intraprocedure albuterol 0.833 mg/ml / ipratropium bromide 0.167 mg/ml inhalation solution (2 sources) Anticholinergic, beta2-Adrenergic Agonist Start: 07-25-2024 End: 07-31-2024 aminocaproic acid (Amicar) 10g in sodium chloride 0.9% 290 mL infusion (1 source) Start: 07-25-2024 End: 07-25-2024 IntraVENous, Continuous PRN, Starting on Marjorie 07/25/24 at 0820, Anesthesia Intraprocedure amiodarone hydrochloride 200 mg oral tablet (19 sources) Antiarrhythmic Start: 07-31-2024 End: 09-09-2024 take 2 tablets by mouth twice daily, then take 2 tablets by mouth once daily, then take 1 tablet by mouth once daily amiodarone (PACERONE) 200 mg tablet TAKE 2 TABS BY MOUTH 2 TIMES DAILY X10 DAYS, THEN 2 TABS DAILY X7 DAYS, THEN 1 TAB DAILY X7 DAYS 07/31/2024 09/09/2024 Discontinued (Course of therapy completed) Start: 07-31-2024 End: 07-31-2024 take 400 mg by mouth twice daily 400 mg, Oral, 2 times daily, First dose on Mon07/31/24 at 0900, For 14 days Start: 07-30-2024 End: 07-31-2024 1 mg/min (33.3333 mL/hr, rou nded to 33.3 mL/hr), IntraVENous, Continuous, Starting on Mon07/30/24 at 0700, Use in-line filter. Use in-line filter. Give through central venous catheter whenever available. Premix Start: 07-30-2024 End: 07-30-2024 150 mg, IntraVENous, Adminis ter over 10 Minutes, Once, On Mon07/30/24 at 0700, For 1 dose, Use in-line filter. Administer through central venous catheter whenever available. Premix aspirin 81 mg chewable tablet (20 sources) Platelet Aggregation Inhibitor, Nonsteroidal Anti-inflammatory Drug Start: 07-26-2024 End: 07-31-2024 take 81 mg by mouth once daily 81 mg, Oral, Daily, First dose on Mon07/26/24 at 0900 Start: 02-17-2024 take 1 capsule by mouth once d aily Aspirin 81 mg capsule Active 81 mg PO DAILY February 17, 2024 12:00am take 1 tablet by desi th once daily before breakfast aspirin 81 MG EC tablet Take 81 mg by mouth every morning (before breakfast). Active Comment on above: Take 81 mg by mouth once daily. benzonatate 100 mg oral capsule (2 sources) Non-narcotic Antitussive Start: take 2 capsules by mouth every eight hours as needed benzonatate (TESSALON PERLE) 100 mg capsule Take 2 capsules by mouth three times daily as needed. 30 capsule 0 12/02/2022 Active Comment on above: Take 2 capsules by m outh three times daily as needed. 10 ml calcium chloride 100 mg/ml prefilled syringe (2 sources) Start: 024 End: IntraVENous, As needed, Starting on Marjorie 07/25/24 at 1145, Anesthesia Intraprocedure calcium chloride 0.0014 meq/ml / potassium chloride 0.004 meq/ml / sodium chloride 0.103 meq/ml / sodium lactate 0.028 meq/ml injectable solution (7 sources) Start: 025 End: take 30 mL intravenously every hour 30 mL/hr, INTRAVENOUS, CONTINUOUS, Starting on 04/08/25 at 1430, Until 04/08/25 at 1608, Preprocedure Start: 07-25-2024 End: 07-31-2024 500 mL, IntraVENous, at 500 mL/hr, Administer over 1 Hours, Once, On Marjorie 07/25/24 at 1315, For 1 dose 100 ml calcium gluconate 20 mg/ml injection (2 sources) Start: 07-25-2024 End: 07-31-2024 ceFAZolin 2000 mg injection (3 sources) Cephalosporin Antibacterial Start: 07-25-2024 End: 07-27-2024 take 2000 mg intravenously every eight hours 2,000 mg, IntraVENous, Administer over 30 Minutes, Every 8 hours, First dose on Marjorie 07/25/24 at 2000, For 5 doses, Phase II/On Unit, premix bag, Suspected Indication (Select all that apply): Surgical Prophylaxis Start: 07-25-2024 End: 07-25-2024 IntraVENous, As needed, Star ting on Marjorie 07/25/24 at 0825, Anesthesia Intraprocedure chlorhexidine gluconate 1.2 mg/ml mouthwash (3 sources) Start: 07-25-2024 End: 07-31-2024 take 15 mL by mouth twice daily 15 mL, Mouth/Throat, 2 times daily, First dose on Marjorie 07/25/24 at 1800, For 7 days, Phase II/On Unit, Rinse and spit. Do not swallow. Start: 07-12-2024 End: 07-12-2024 chlorhexidine (Peridex) 0.12 % solution Use 15 mL in the mouth or throat Once for 1 dose. Swish for 30 seconds and spit out the night before surgery. Do not swallow. 15 mL 07/12/2024 07/12/2024 Active cholecalciferol 9.52 unt/ml / glucose 357 mg/ml oral gel (2 sources) Vitamin D Start: 07-25-2024 End: 07-31-2024 1 ml dexamethasone phosphate 10 mg/ml injection (1 source) Corticosteroid Start: 07-25-2024 End: 07-25-2024 IntraVENous, As needed, Starting on Marjorie 07/25/24 at 0745, Anesthesia Intraprocedure diphenhydrAMINE (1 source) Histamine-1 Receptor Antagonist Start: 04-08-2025 End: 04-08-2025 12.5-50 mg, INTRAVENOUS, DIRECTED, Starting on 04/08/25 at 1530, Until e 04/08/25 at 1929, DOSING DIRECTED BY PHYSICIAN FOR PROCEDURAL SEDATION ONLY, Intraprocedure docusate sodium 50 mg / sennosides, long term 8.6 mg oral tablet (2 sources) Start: 07-25-2024 End: 07-31-2024 take 2 tablets by mouth once daily for constipation 2 tablet, Oral, Nightly, First dose on Marjorie 07/25/24 at 2100, Recovery & On Unit, Bowel Regimen - for prevention of constipation. enteric contrast (will be provided with radiology test) (3 sources) Start: 03-19-2025 End: 03-21-2025 enteric contrast (will be provided with radiology test) Indications: Melena , Generalized abdominal pain For CT ABD/PEL W IVCON Routine order Administer, As Directed One Time Only, via Oral, Rectal, both Oral and Rectal, Enteric Tube, Stoma or Indwelling Catheter, Enteric Contrast as designated per enteric contrast guidelines 1 each 03/19/2025 03/21/2025 Discontinued Start: 03-19-2025 End: 03-20-2025 enteric contrast (will be pr ovided with radiology test) Indications: Melena , Generalized abdominal pain For CT ABD/PEL W IVCON Routine order Administer, As Directed One Time Only, via Oral, Rectal, both Oral and Rectal, Enteric Tube, Stoma or Indwelling Catheter, Enteric Contrast as designated per enteric contrast guidelines 1 each 03/19/2025 03/20/2025 Active 10 ml esmolol hydrochloride 10 mg/ml injection (1 source) beta-Adrenergic Aric Start: 07-25-2024 End: 07-25-2024 IntraVENous, As needed, Starting on Marjorie 07/25/24 at 0745, Anesthesia Intraprocedure 20 ml etomidate 2 mg/ml injection (1 source) General Anesthetic Start: 07-25-2024 End: 07-25-2024 IntraVENous, As needed, Starting on Marjorie 07/25/24 at 0745, Anesthesia Intraprocedure 1 ml fentaNYL 0.05 mg/ml injection (2 sources) Opioid Agonist Start: 04-08-2025 End: 04-08-2025 25-100 mcg, INTRAVENOUS, DIRECTED, Starting on 04/08/25 at 1530, Until 04/08/25 at 1929, DOSING DIRECTED BY PHYSICIAN FOR PROCEDURAL SEDATION ONLY, Intraprocedure Start: 07-25-2024 End: 07-25-2024 IntraVENous, As needed, Star ting on Marjorie 07/25/24 at 0745, Anesthesia Intraprocedure furosemide 40 mg oral tablet (6 sources) Loop Diuretic Start: 07-28-2024 End: 07-30-2024 take 40 mg by mouth twice daily 40 mg, Oral, 2 times daily, First dose on 07/28/24 at 0715 Start: 07-27-2024 End: 07-28-2024 40 mg, IntraVENous, 2 times daily, First dose on 07/27/24 at 1500 Start: 07-27-2024 End: 07-27-2024 40 mg, IntraVENous, Once, On 07/27/24 at 0815, For 1 dose glucagon (rdna) 1 mg injecti on (2 sources) Antihypoglycemic Agent Start: 07-25-2024 End: 07-31-2024 150 ml glucose 50 mg/ml inje ction (4 sources) Start: 07-25-2024 End: 07-31-2024 Start: 07-25-2024 End: 07-31-2024 12 hr guaiFENesin 600 mg extended release oral tablet (2 sources) Start: 12-02-2022 take 2 tablets by mouth twice daily guaiFENesin (MUCINEX) 600 mg 12 hr tablet Take 2 tablets by mouth twice daily. 24 tablet 0 12/02/2022 Active Comment on above: Take 2 tablets by mouth twice daily. 1 ml heparin sodium, porcine 1000 unt/ml injection (1 source) Unfractionated Heparin, Anti-coagulant Start: 07-25-2024 End: 07-25-2024 IntraVENous, As needed, Starting on Marjorie 07/25/24 at 0910, Anesthesia Intraprocedure 100 ml insulin, regular, human 1 unt/ml injection (2 sources) Insulin Start: 07-25-2024 End: 07-26-2024 take 1-50 [IU] intravenously every hour, then take 1-50 mL intravenously every hour 1-50 Units/hr (1-50 mL/hr), IntraVENous, Continuous, Starting on Marjorie 07/25/24 at 1230, Recovery & On Unit, As guided by calculator flowsheet Low target: 120 High target: 160 Hold insulin infusion if BS ketamine 10 mg/ml injectable solution (1 source) General Anesthetic Start: 07-25-2024 End: 07-25-2024 IntraVENous, As needed, Starting on Marjorie 07/25/24 at 0745, Anesthesia Intraprocedure lactulose 667 mg/ml oral solution (2 sources) Osmotic Laxative Start: 07-27-2024 End: 07-28-2024 20 g, Oral, 3 times daily, First dose on 07/27/24 at 0900, For 3 doses lidocaine 0.04 mg/mg medicated patch (3 sources) Antiarrhythmic, Amide Local Anesthetic Start: 07-25-2024 End: 07-31-2024 1 patch, Topical, Administer over 12 Hours, Daily, First dose on Marjorie 07/25/24 at 1230, Recovery & On Unit, Cut in half and place on both sides of the incision. Patch may remain in place for up to 12 hours in any 24 hour period. Start: 07-25-2024 End: 07-25-2024 IntraVENous, As needed, Star ting on Marjorie 07/25/24 at 0745, Anesthesia Intraprocedure magnesium hydroxide 80 mg/ml oral suspension (4 sources) Start: 07-27-2024 End: 07-27-2024 take 8 [oz_av] by mouth once 60 mL, Oral, Once, On 07/27/24 at 0815, For 1 dose, Follow dose with 8 oz of water. Start: 07-25-2024 End: 07-31-2024 take 30 mL by mouth every twenty-four ho urs as needed for constipation magnesium sulfate IVPB premix 2,000 mg (2 sources) Start: 07-25-2024 End: 07-31-2024 magnesium sulfate IVPB premix 2,000 mg Methocarbamol (20 sources) Muscle Relaxant Start: 07-31-2024 End: 11-13-2024 take 1 tablet by mouth every eight hours as needed methocarbamol 1000 MG tablet Take 1,000 mg by mouth every 8 hours as needed for muscle spasms for up to 14 days. 42 tablet 07/31/2024 11/13/2024 Discontinued Start: 07-31-2024 take 1 tablet by desi th every eight hours as needed methocarbamol 1000 MG tablet Take 1,000 mg by mouth every 8 hours as needed for muscle spasms for up to 14 days. 42 tablet 07/31/2024 Active Start: 07-31-2024 End: 08-14-2024 take 1 tablet by mouth every eight hours as needed methocarbamol 1,000 mg tablet Take 1,000 mg by mouth three times a day as needed. 07/31/2024 08/14/2024 Active Start: 07-31-2024 End: 08-14-2024 take 1 tablet by mouth every eight hours as needed methocarbamol 1000 MG tablet Take 1,000 mg by mouth every 8 hours as needed for muscle spasms for up to 14 days. 42 tablet 07/31/2024 08/14/2024 Active Start: 07-26-2024 End: 07-31-2024 take 1 tablet by mouth every eight hours as needed 1,000 mg, Oral, Every 8 hours PRN, muscle spasms, Starting on Mon07/26/24 at 0621 take 1 tablet by desi th four times daily methocarbamol 1,000 mg tablet Take 1,000 mg by mouth four times daily. Active 2 ml metoclopramide 5 mg/ml prefilled syringe (2 sources) Dopamine-2 Receptor Antagonist Start: 07-26-2024 End: 07-27-2024 take 10 mg intravenously every six hours 10 mg, IntraVENous, Every 6 hours, First dose on Mon07/26/24 at 0630, For 4 doses 5 ml midazolam 1 mg/ml injection (2 sources) Benzodiazepine Start: 04-08-2025 End: 04-08-2025 1-5 mg, INTRAVENOUS, DIRECTED, Starting on Mon04/08/25 at 1530, Until Mon04/08/25 at 1929, DOSING DIRECTED BY PHYSICIAN FOR PROCEDURAL SEDATION ONLY, Intraprocedure Start: 07-25-2024 End: 07-25-2024 IntraVENous, As needed, Star ting on Marjorie 07/25/24 at 0729, Anesthesia Intraprocedure mupirocin 0.02 mg/mg topical ointment (8 sources) RNA Synthetase Inhibitor Antibacterial Start: 07-25-2024 End: 07-29-2024 Nasal, 2 times daily, First dose on Marjorie 07/25/24 at 1800, For 4 days, Phase II/On Unit Start: 07-12-2024 End: 07-31-2024 mupirocin (Bactroban) 2 % oi ntment Apply liberal amount per nostril the night before surgery and then again the morning of surgery 1 g 07/12/2024 07/31/2024 Discontinued (Stop taking at discharge) 1 ml naloxone hydrochloride 0.4 mg/ml injection (2 sources) Opioid Antagonist Start: 07-26-2024 End: 07-31-2024 0.4 mg, IntraVENous, Every 5 min PRN, opioid reversal, respiratory depression, Starting on Mon07/26/24 at 0625, +++ For RR nitroglycerin 0.4 mg sublingual tablet (20 sources) Nitrate Vasodilator Start: 11-23-2021 End: 09-09-2024 nitroglycerin sublingual (NITROQUICK) 0.4 mg SL tablet Dissolve 1 tablet under the tongue every 5 minutes as needed. 1 Bottle of 25 11/23/2021 09/09/2024 Discontinued (Course of therapy completed) Start: 11-23-2021 End: 07-31-2024 nitroglycerin (Nitrostat) 0. 4 MG SL tablet DISSOLVE 1 TABLET UNDER THE TONGUE EVERY 5 MINUTES NEEDED. 11/23/2021 07/31/2024 Discontinued (Stop taking at discharge) Comment on above: Dissolve 1 tablet un ti the tongue every 5 minutes as needed. Dissolve 0.4 mg unde r the tongue every 5 minutes as needed. 100 ml sodium nitroprusside 0.5 mg/ml injection (2 sources) Start: 07-25-20 End: 07-26-20 0.1-3 mcg/kg/min 74.4 kg (0.8928-26.784 mL/hr, rounded to 0.89-26.78 mL/hr), IntraVENous, Continuous PRN, SBP above hemodynamic goal, Starting on Marjorie 07/25/24 at 1229, Recovery & On Unit, If dose LESS than 1 mcg/kg/min titrate by 0.25 mcg/kg/min no faster than every 1 minute to goal If dose GREATER than or equal to 1 mcg/kg/min titrate by 0.5 mcg/kg/min no faster than every 1 minute to goal May titrate outside of defined titration parameters (increments and frequency) under the direction of the provider. If SBP falls below goal, wean drip, re-evaluate, once hemodynamic parameters are back within range resume drip using previous ordered parameters. For unstable, emergent situation, may titrate accordingly to meet hemodynamic goal., Titrate Infusion? Yes, Initial Infusion Dose: Other, Other (mcg/kg/min): 0.1, Goal of Therapy is: Other, Other Goal: Refer to Hemodynamic Goals nursing order, Contact Provider if: Other, Other: patient is at max dose and not at hemodynamic goal 2 ml ondansetron 2 mg/ml injection (1 source) Serotonin-3 Receptor Antagonist Start: 07-25-20 End: 07-25-20 IntraVENous, As needed, Starting on Marjorie 07/25/24 at 0745, Anesthesia Intraprocedure ondansetron ODT (Zofran-ODT) disintegrating tablet 4 mg (2 sources) Start: 07-25-20 End: 07-31-19 take 1 tablet by mouth every eight hours as needed for nausea and vomiting ondansetron ODT (Zofran-ODT) disintegrating tablet 4 mg oxyCODONE hydrochloride 5 mg oral tablet (20 sources) Opioid Agonist Start: 07-31-19 End: 09-09-19 take 1 tablet by mouth every six hours as needed for pain oxyCODONE IR (ROXICODONE) 5 mg immediate release tablet TAKE 1 TABLET (5 MG) BY MOUTH EVERY 6 HOURS NEEDED FOR SEVERE PAIN (7-10) FOR UP TO 7 DAYS. 07/31/2024 09/09/2024 Discontinued (Discontinued by another Health Care Provider) Start: 07-28-2024 End: 07-31-2024 take 1 tablet by mouth every six hours as needed for pain oxyCODONE (Roxicodone) immediate release tablet 5 mg Start: 07-25-2024 End: 07-28-2024 take 1 tablet by mouth every four hours as needed for pain 5 mg, Oral, Every 4 hours PRN, moderate pain (4-6), Starting on Marjorie 07/25/24 at 1235, Recovery & On Unit Start: 02-22-2024 End: 02-29-2024 take 1 tablet by mouth every six hours as needed for pain oxyCODONE IR (ROXICODONE) 5 mg immediate release tablet Indications: Acute post-operative pain , History of thoracotomy , Right upper lobe pulmonary nodule Take 1 tablet by mouth every 6 hours as needed for pain for up to 7 days. 28 tablet 0 02/22/2024 02/29/2024 Discontinued (Course of therapy completed) Start: 02-17-2024 End: 06-07-2024 take 1 tablet by mouth three times daily as needed for pain Oxycodone 5 mg tablet Discontinued 5 mg PO 3 TIMES DAILY NEEDED as needed for pain February 17, 2024 12:00am June 07, 2024 10:03am Start: 02-14-2024 End: 02-17-2024 take 1 tablet by mouth every eight hours as needed for pain oxyCODONE IR (ROXICODONE) 5 mg immediate release tablet Indications: S/P lobectomy of lung Take 1 tablet by mouth every 8 hours as needed for pain for up to 3 days. 9 tablet 0 02/14/2024 02/17/2024 Active pantoprazole (ProtoNix) 40 mg in sodium chloride (PF) 0.9 % 10 mL injection (2 sources) Start: 07-25-2024 End: 07-26-2024 40 mg, IntraVENous, Administer over 2 Minutes, Daily, First dose on Marjorie 07/25/24 at 1400, Phase II/On Unit, Reconstitute with 10 mL 0.9 % sodium chloride and administer over at least 2 minutes. perfusion prime builder (1 source) Start: 07-25-2024 End: 07-25-2024 Perfusion, Continuous PRN, Starting on Marjorie 07/25/24 at 0945, Anesthesia Intraprocedure polyethylene glycol 3350 125679 mg / potassium chloride 2970 mg / sodium bicarbonate 6740 mg / sodium chloride 5860 mg / sodium sulfate 12811 mg powder for oral solution (5 sources) Osmotic Laxative Start: 03-21-2025 End: 04-09-2025 peg 3350-Electrolytes (GOLYTELY) 236-22.74-6.74 -5.86 gram suspension Refer to printed prep instructions from your provider. 4000 mL 03/21/2025 04/09/2025 Discontinued microencapsulated potassium chloride 10 meq extended release oral tablet (4 sources) Start: 07-26-2024 End: 07-31-2024 20 mEq, Oral, PRN, Hypokalemia, Starting on Mon07/26/24 at 0000, Phase II/On Unit, If patient is intubated or not tolerating PO use PRN IV replacement protocol Potassium level Dose LESS than 3.0 = Give 20 mEq x 3 doses 3.0-3.6 = Give 20 mEq x 2 doses Recheck potassium level 2 hour after replacement given, place order for lab under [place] If potassium level LESS than 3 after 1st replacement: Call surgeon. Do not crush or break. Do not crush or chew. Start: 07-25-2024 End: 07-31-2024 potassium chloride IVPB 20 m Eq pravastatin sodium 80 mg oral tablet (5 sources) HMG-CoA Reductase Inhibitor Start: 05-07-2021 End: 05-22-2022 take 1 tablet by mouth once daily pravastatin (PRAVACHOL) 80 mg tablet Take 1 tablet by mouth once daily. 90 tablet 3 11/23/2021 12/08/2021 Discontinued Comment on above: Take 1 tablet by desi once daily. predniSONE 10 mg oral tablet (1 source) Start: 05-05-2021 End: 11-23-2021 predniSONE (DELTASONE) 10 mg tablet Take 4 tabs daily for 3 days, then 2 tabs daily for 3 days, then 1 tab daily for 3 days with food. 21 tablet 0 05/05/2021 11/23/2021 Discontinued Comment on above: Take 4 tabs daily fo r 3 days, then 2 tabs daily for 3 days, then 1 tab daily for 3 days with food. 100 ml propofol 10 mg/ml injection (2 sources) General Anesthetic Start: 07-25-2024 End: 07-26-2024 5-50 mcg/kg/min 74.4 kg (2.232-22.32 mL/hr, rounded to 2.23-22.32 mL/hr), IntraVENous, Continuous, Starting on Marjorie 07/25/24 at 1230, Recovery & On Unit, Instructions If RASS 1 point below goal - decrease dose by 5mcg/kg/min no faster than every 5 min If RASS 2 points below goal- decrease dose by 10mcg/kg/min no faster than every 5 min If RASS at goal, continue current dose If RASS 2 or more points above goal - increase dose by 10mcg/kg/min no faster than every 5 min If RASS 1 point above goal - increase dosee by 5mcg/kg/min no faster than every 5 min If after titration rate change patient exhibits adverse hemodynamic response, next titration rate change may be adjusted by one-half of the previous rate change If patient fails sedation interruption, resume propofol titration at 50% of previous rate General Anesthetic - do not give without appropriate ventilation support. Do not administer propofol in same IV catheter as blood or plasma. Discard any unused portion of propofol vials and tubing after 12 hours., Titrate Infusion? Yes, Initial Infusion Dose: 30 mcg/kg/min, Goal of Therapy: RASS of -1 to 0, Contact Provider if: Patient is receiving maximum dose and is not achieving the goal of therapy 25 ml protamine sulfate (long term) 10 mg/ml injection (1 source) Start: 07-25-2024 End: 07-25-2024 IntraVENous, As needed, Starting on Marjorie 07/25/24 at 1140, Anesthesia Intraprocedure rocuronium bromide 10 mg/ml injectable solution (1 source) Nondepolarizing Neuromuscular Aric Start: 07-25-2024 End: 07-25-2024 IntraVENous, As needed, Starting on Marjorie 07/25/24 at 0744, Anesthesia Intraprocedure 1 ml secukinumab 150 mg/ml auto-injector (12 sources) Interleukin-17A Antagonist Start: 05-07-2021 End: 11-23-2021 secukinumab (COSENTYX PEN, 2 PENS,) 150 mg/mL Inject 2 mL subcutaneously once every month. 0 05/07/2021 11/23/2021 Discontinued inject 300 mg by sub cutaneous injection every week secukinumab (COSENTYX, 2 SYRINGES,) 150 mg/mL injection Inject 300 mg subcutaneously one time a week. Active Comment on above: Inject 2 mL subcutan eously once every month. simethicone 80 mg chewable tablet (2 sources) Start: End: take 80 mg by mouth four times daily 80 mg, Oral, 4 times daily, First dose on Mon07/26/24 at 0900, For 4 doses 10 ml sodium bicarbonate 84 mg/ml injection (1 source) Start: End: IntraVENous, As needed, Starting on Marjorie 07/25/24 at 1012, Anesthesia Intraprocedure 5 ml sodium chloride 9 mg/ml injection (13 sources) Start: End: take 20 mL intravenously every hour 20 mL/hr, IntraVENous, Continuous, Starting on Marjorie 07/25/24 at 1230, Recovery & On Unit, 20 ml/hr to SP(introducer) and WT on [place] Turner Catheter; once [place] discontinued run at 20 ml/hr through SP(introducer) Start: 07-25-2024 End: 07-28-2024 take 5-40 mL intraluminal route every eight hours 5-40 mL, IntraCATHeter, Every 8 hours, First dose on Marjorie 07/25/24 at 1230, Recovery & On Unit, For Line Patency: Peripheral IV = 5 mL; Midline or Central Line = 10 mL/lumen. If following IV push medication, administer flush at same rate as the IV push. Flush volume is determined by type of infusion therapy being given. For non-viscous solutions use: Peripheral IV = 5 mL Midline or Central Line = 10 mL/lumen For viscous solutions (i.e. blood components, parenteral nutrition, contrast media, or after obtaining blood sample) use: Peripheral IV = 10 mL Midline or Central Line = 20 mL/lumen Start: 07-25-2024 End: 07-25-2024 IntraVENous, Continuous PRN, Starting on Marjorie 07/25/24 at 0729, Anesthesia Intraprocedure Start: 07-25-2024 End: 07-25-2024 take 50 mL intravenously every hour 50 mL/hr, IntraVENous, Continuous, Starting on Marojrie 07/25/24 at 0530, Preprocedure, Upon admission to sameday - please start iv if patient does not have iv access. Start: 07-05-2024 End: 07-05-2024 take 100 mL intravenously every hour as needed, then take 20 mL intravenously every hour as needed 5-250 mL/hr, IntraVENous, PRN, if patient receiving piggyback infusions and maintenance fluids are not ordered OR KVO fluids to protect IV site / prevent frequent line interruptions / long duration, Starting on Mon07/05/24 at 0828, Preprocedure, For piggyback infusion, administer at same rate as piggyback for a total of 25 mL. Enter 25 mL into dose field and piggyback rate into rate field of order. If piggyback is infusing at a rate less than 100 mL/hr, enter 25 mL into dose field and 100 mL/hr into rate field of order. For KVO fluids, enter rate of 20 mL/hr or less into rate field of order. Start: 07-05-2024 End: 07-05-2024 5-40 mL, IntraVENous, PRN, l ine care, After every IV line use, Starting on Mon07/05/24 at 0828, Preprocedure, For Line Patency: Peripheral IV = 5 mL; Midline or Central Line = 10 mL/lumen. If following IV push medication, administer flush at same rate as the IV push. Flush volume is determined by type of infusion therapy being given. For non-viscous solutions use: Peripheral IV = 5 mL Midline or Central Line = 10 mL/lumen For viscous solutions (i.e. blood components, parenteral nutrition, contrast media, or after obtaining blood sample) use: Peripheral IV = 10 mL Midline or Central Line = 20 mL/lumen Start: 07-05-2024 End: 07-05-2024 take 5-40 mL intravenously every twelve hours 5-40 mL, IntraVENous, Every 12 hours, First dose on Mon07/05/24 at 0830, Preprocedure, For Line Patency: Peripheral IV = 5 mL; Midline or Central Line = 10 mL/lumen. If following IV push medication, administer flush at same rate as the IV push. Flush volume is determined by type of infusion therapy being given. For non-viscous solutions use: Peripheral IV = 5 mL Midline or Central Line = 10 mL/lumen For viscous solutions (i.e. blood components, parenteral nutrition, contrast media, or after obtaining blood sample) use: Peripheral IV = 10 mL Midline or Central Line = 20 mL/lumen 5 ml sugammadex 100 mg/ml injection (2 sources) Start: 07-25-2024 End: 07-25-2024 300 mg (rounded from 297.6 m g = 4 mg/kg 74.4 kg), IntraVENous, Once, On Marjorie 07/25/24 at 1315, For 1 dose Problems Active Problems Problem Classification Problem Date Documented Da te Episodic/Chronic Abdominal pain (13 sources) Generalized abdominal pain; Translations: [Generalized abdominal pain] Onset: 03-21-2025 03-19-2025 Episodic Aortic; peripheral; and visceral artery aneurysms (20 sources) Abdominal aortic aneurysm without rupture; Translations: [Abdominal aortic aneurysm, without rupture] Onset: 06-08-2021 06-08-2021 Chronic Cancer of bronchus; lung (20 sources) Adenocarcinoma of right lung; Translations: [Malignant neoplasm of unspecified part of right bronchus or lung] Onset: 02-29-2024 02-29-2024 Chronic Cancer of bronchus; lung (1 source) History of malignant neoplasm of thoracic cavity structure; Translations: [Personal history of other malignant neoplasm of bronchus and lung] 02-25-2024 Episodic Cancer; other respiratory and intrathoracic (2 sources) Malignant neoplasm of lower respiratory tract 09-09-2024 Chronic Cardiac dysrhythmias (5 sources) Atrial fibrillation; Translations: [Unspecified atrial fibrillation] Onset: 08-14-2024 08-14-2024 Chronic Coagulation and hemorrhagic disorders (20 sources) Platelet count below reference range; Translations: [Thrombocytopenia, unspecified] Chronic Congestive heart failure; nonhypertensive (2 sources) Heart failure, unspecified; Translations: [Heart failure, unspecified (HCC)] Onset: 07-18-2024 Chronic Coronary atherosclerosis and other heart disease (20 sources) Coronary atherosclerosis; Translations: [Atherosclerotic heart disease of [place] coronary artery without angina pectoris] Onset: 11-29-2016 11-29-2016 Chronic Disorders of lipid metabolism (20 sources) Hyperlipidemia; Translations: [Mixed hyperlipidemia] Onset: 07-02-2008 10-27-2017 Chronic Essential hypertension (20 sources) Essential hypertension; Translations: [Essential (primary) hypertension] Onset: 05-07-2021 Chronic Gastrointestinal hemorrhage (10 sources) Melena; Translations: [Melena] Onset: 03-21-2025 03-19-2025 Episodic Nausea and vomiting (8 sources) Nausea; Translations: [Nausea] Onset: 03-21-2025 03-21-2025 Episodic Occlusion or stenosis of precerebral arteries (4 sources) Bilateral stenosis of carotid arteries; Translations: [Occlusion and stenosis of bilateral carotid arteries] Onset: 07-11-2024 04-15-2025 Chronic Osteoarthritis (1 source) Primary osteoarthritis, left shoulder; Translations: [Primary osteoarthritis, left shoulder] Onset: 07-02-2024 Chronic Other circulatory disease (2 sources) Other specified symptoms and signs involving the circulatory and respiratory systems; Translations: [Other symptoms involving cardiovascular system] Onset: 03-26-2025 03-11-2024 Episodic Other circulatory disease (6 sources) Air trapping; Translations: [Other specified symptoms and signs involving the circulatory and respiratory systems] 05-21-2024 Episodic Other connective tissue disease (2 sources) Pain of toe of right foot; Translations: [Pain in right toe(s)] 03-11-2024 Episodic Other ear and sense organ disorders (20 sources) Bilateral tinnitus; Translations: [Tinnitus, bilateral] 05-07-2021 Episodic Other gastrointestinal disorders (6 sources) Chronic constipation; Translations: [Other constipation] 03-19-2025 Episodic Other gastrointestinal disorders (4 sources) Heartburn; Translations: [Heartburn] 03-21-2025 Episodic Other gastrointestinal disorders (1 source) Acute constipation; Translations: [Constipation, unspecified] 02-25-2024 Episodic Other gastrointestinal disorders (1 source) Constipation, unspecified; Translations: [Constipation, unspecified constipation type] Onset: 06-03-2025 Episodic Other gastrointestinal disorders (1 source) Other constipation; Translations: [Chronic constipation] Onset: 03-21-2025 Episodic Other gastrointestinal disorders (1 source) Heartburn; Translations: [Heart burn] Onset: 03-21-2025 Episodic Other inflammatory condition of skin (20 sources) Psoriasis; Translations: [Psoriasis, unspecified] Chronic Other inflammatory condition of skin (1 source) Psoriasis vulgaris; Translations: [Psoriasis vulgaris] Onset: 03-21-2025 Chronic Other lower respiratory disease (3 sources) Solitary pulmonary nodule; Translations: [Lung nodule] Onset: 12-15-2023 Episodic Other lower respiratory disease (1 source) Dyspnea; Translations: [Shortness of breath] 01-19-2024 Episodic Other lower respiratory disease (1 source) Shortness of breath; Translations: [Shortness of breath] Onset: 01-29-2024 Episodic Other nervous system disorders (1 source) Chronic post-thoracotomy pain syndrome; Translations: [Chronic post-thoracotomy pain] 04-09-2025 Chronic Other nervous system disorders (3 sources) Other chronic pain; Translations: [Other chronic pain] Onset: 07-25-2024 Chronic Other nervous system disorders (1 source) Chronic post-thoracotomy pain; Translations: [Chronic post-thoracotomy pain] Onset: 04-09-2025 Chronic Other nervous system disorders (1 source) Acute postoperative pain; Translations: [Other acute postprocedural pain] 02-22-2024 Episodic Other nervous system disorders (2 sources) Cold extremity; Translations: [Unspecified disturbances of skin sensation] 03-11-2024 Episodic Other nervous system disorders (1 source) Postoperative pain ; Translations: [Other acute postprocedural pain] 02-25-2024 Episodic Other non-traumatic joint disorders (3 sources) Chronic pain of left upper limb; Translations: [Pain in left shoulder] 07-31-2024 Episodic Other upper respiratory infections (1 source) Upper respiratory infection; Translations: [Acute upper respiratory infection, unspecified] Episodic Peripheral and visceral atherosclerosis (16 sources) Peripheral vascular disease, unspecified; Translations: [Peripheral vascular disease, unspecified] Onset: 06-10-2024 04-04-2024 Chronic Residual codes; unclassified (2 sources) Pain; Translations: [Pain, unspecified] 08-09-2024 Episodic Residual codes; unclassified (1 source) History of thoracic surgery; Translations: [Other specified postprocedural states] 02-25-2024 Episodic Screening and history of mental health and substance abuse codes (12 sources) Tobacco use and exposure - finding; Translations: [Personal history of nicotine dependence] Onset: 03-26-2025 Episodic Skin and subcutaneous tissue infections (3 sources) Cellulitis of left lower limb; Translations: [Cellulitis of left lower limb] 05-01-2024 Episodic Spondylosis; intervertebral disc disorders; other back problems (3 sources) Degeneration of cervical intervertebral disc; Translations: [Other cervical disc degeneration, unspecified cervical region] Onset: 08-12-2024 08-12-2024 Chronic Substance-related disorders (20 sources) Tobacco user; Translations: [Nicotine dependence, unspecified, uncomplicated] Onset: 06-03-2008 06-03-2008 Chronic Unclassified (1 source) Established Patient Onset: 01-29-2024 Unclassified (2 sources) Chronic pain of left upper limb 07-31-2024 Unclassified (1 source) History of lung lobectomy 09-09-2024 Unclassified (1 source) Peripheral arterial disease 04-15-2025 Unclassified (1 source) Infrarenal abdominal aortic aneurysm (AAA) without rupture; Translations: [Infrarenal abdominal aortic aneurysm (AAA) without rupture] Onset: 06-08-2021 Unclassified (1 source) Abdominal aortic aneurysm (AAA) without rupture, unspecified part; Translations: [Abdominal aortic aneurysm (AAA) without rupture, unspecified part] Onset: 06-08-2021 Unclassified (1 source) Infrarenal abdominal aortic aneurysm, without rupture; Translations: [Infrarenal abdominal aortic aneurysm, without rupture] Onset: 04-15-2025 Past or Other Problems Problem Classification Problem Date Documented Date Episodic/Chronic Allergic reactions (20 sources) Allergy to penicillin; Translations: [Allergy status to penicillin] Onset: 06-03-2008 11-14-2008 Episodic Coronary atherosclerosis and other heart disease (4 sources) Presence of aortocoronary bypass graft; Translations: [Presence of coronary angioplasty implant and graft] Onset: 06-11-2024 Episodic Diabetes mellitus without complication (2 sources) Hyperglycemia, unspecified; Translations: [Hyperglycemia, unspecified] Onset: 07-18-2024 Episodic Disorders of teeth and jaw (20 sources) Jaw pain; Translations: [Jaw pain] Onset: 10-27-2017 10-27-2017 Episodic Immunizations and screening for infectious disease (20 sources) Patient encounter status; Translations: [Encounter for screening for human immunodeficiency virus [HIV]] Onset: 10-08-2008 Episodic Nonspecific chest pain (20 sources) Atypical chest pain; Translations: [Chest pain] Onset: 10-27-2017 10-27-2017 Episodic Other and unspecified benign neoplasm (20 sources) Benign neoplasm of colon; Translations: [Benign neoplasm of colon, unspecified] Onset: 10-08-2008 10-08-2008 Episodic Other circulatory disease (20 sources) Low blood pressure; Translations: [Hypotension, unspecified] Onset: 10-27-2017 10-27-2017 Episodic Other lower respiratory disease (20 sources) Multiple nodules of lung; Translations: [Other nonspecific abnormal finding of lung field] Onset: 11-09-2023 11-06-2023 Episodic Other lower respiratory disease (20 sources) Nodule of lung; Translations: [Solitary pulmonary nodule] Onset: 12-15-2023 11-10-2023 Episodic Other non-traumatic joint disorders (20 sources) Arthralgia of the ankle and/or foot; Translations: [Pain in unspecified ankle and joints of unspecified foot] Onset: 06-03-2008 06-03-2008 Episodic Other non-traumatic joint disorders (4 sources) Pain in left shoulder; Translations: [Pain in joint, shoulder region] Onset: 07-25-2024 06-11-2024 Episodic Other screening for suspected conditions (not mental disorders or infectious disease) (20 sources) Echocardiogram abnormal; Translations: [Abnormal result of other cardiovascular function study] Onset: 06-25-2024 07-02-2024 Episodic Residual codes; unclassified (20 sources) At risk of apnea; Translations: [Other specified personal risk factors, not elsewhere classified] Onset: 11-29-2023 11-29-2023 Episodic Residual codes; unclassified (20 sources) History of lung lobectomy; Translations: [Acquired absence of lung [part of]] Onset: 02-09-2024 02-09-2024 Episodic Residual codes; unclassified (2 sources) Acquired absence of lung [part of]; Translations: [S/P lobectomy of lung] Onset: 02-09-2024 Episodic Residual codes; unclassified (1 source) Pain, unspecified; Translations: [Pain] Onset: 08-12-2024 Episodic Sprains and strains (20 sources) Injury of shoulder and upper arm; Translations: [Sprain and strain of unspecified site of shoulder and upper arm] Onset: 06-03-2008 06-03-2008 Episodic Viral infection (20 sources) Herpes simplex; Translations: [Herpesviral infection, unspecified] Onset: 06-03-2008 06-03-2008 Episodic Results Test Name Value Interpretation Reference Range Facility [facility] 06-03-2025 CNOV Office Visit (BLAKE ) -- MARKSHARONDA Romero ([id number]) 1955 M [facility] Date Time Provider Department 06/03/25 10:30 AM MAXINE GOULD During your visit today, we recorded the following information about you: Pulse Blood pressure Weight 75/minute 146/80 72.5 kg Maxine Gould PA-C 06/03/2025 10:25 AM Addendum Thank you for seeing me in clinic today. It was very nice to meet you! As we discussed, my recommendations are as follows: Schedule HIDA scan Mix one 238 gram bottle of Miralax with 64 ounces (2 quarts) of Gatorade. Drink an 8 ounce glass of Miralax / Gatorade solution every 30 minutes until gone. Go more slowly if nauseated. If no results after the first 4 hours, you can take 2 tablets of Dulcolax to speed up the process (may cause cramping.) Follow this with a daily dose of 1-2 capfuls Miralax AND 1 tbsp of Benefiber or Metamucil with lots of daily fluids (at least 64oz water daily) Continue pantoprazole 20mg daily If you have any questions about the above treatment plan, please do not hesitate to send me a [employer] message or call. Maxine Gould PA-C We discussed your constipation and abdominal pain: - You should stop using stool softeners, as they are not very effective. - Continue taking Metamucil daily for fiber. - Add Miralax, starting with 2 capfuls per day, to help regulate your bowel movements. You may increase to 3 capfuls per day if needed, based on your response. - Complete a full bowel cleanout at home, similar to the preparation you did before your colonoscopy, to clear out your colon before starting the new regimen. - Drink plenty of water each day to support regular bowel movements. - Continue taking pantoprazole 20 mg daily in the morning before eating, as this has been helping with your acid reflux and stomach upset. We discussed possible causes for your ongoing pain: - The pain may be related to constipation, your gallbladder, or scar tissue from your previous lung surgery. - Your recent CT scan showed a significant amount of stool in the right side of your colon, which may be contributing to your symptoms. - There is no evidence of cancer or other dangerous findings on your recent CT scan, colonoscopy, or endoscopy. Follow-up: - We will schedule a HIDA scan to check the function of your gallbladder and help determine if it is contributing to your symptoms. - I will send a message to your primary care provider to update them on our plan and findings. Maxine Gould PA-C 06/03/2025 10:50 AM Signed DEPARTMENT OF GASTROENTEROLOGY - NEW PATIENT/CONSULT REASON FOR VISIT Sharonda Flores is a 69 year old male who is scheduled at the request of Saray Marinelli for Consult (CONSTIPATION). My final recommendations will be communicated back to the requesting physician by the way of the shared medical record, fax, or via US Mail HISTORY OF PRESENT ILLNESS Sharonda Flores is a 69 year old male who presents today for an evaluation of RUQ pain and constipation. The patient is a 69-year-old male with chronic constipation, right-sided abdominal pain, and a history of right lung cancer resection and coronary artery disease, presenting for evaluation of persistent abdominal pain and constipation. He reports that his symptoms began after his first surgery in January of last year, which he attributes to opioid use postoperatively. He subsequently underwent a triple bypass in June, after which his constipation worsened. He describes his bowel movements as infrequent, with intervals ranging from 1 to 4 days, and the stool is consistently small and pellet-like. He has tried various interventions, including castor oil, Metamucil, and up to 3 stool softeners daily, with only temporary relief. He notes that his symptoms improve after bowel cleanouts, but constipation and pain recur once he resumes eating. He describes his abdominal pain as localized to the right side, sometimes associated with a palpable firmness. The pain is exacerbated by physical contact or pressure and can radiate to the back. He also reports intermittent swelling in the right upper quadrant. The pain disrupts his sleep and has led to reduced oral intake, including cessation of carbonated beverages and limiting food intake, without significant improvement. He denies any improvement in pain with pantoprazole, though it has resolved his prior dyspepsia. He has undergone multiple diagnostic tests, including colonoscopy, EGD, and CT scan, with no definitive diagnosis. He has received conflicting information regarding the presence of an ulcer. He expresses frustration with the lack of a clear diagnosis and resolution of his symptoms. He is currently taking pantoprazole 20 mg daily, which has resolved his dyspepsia, but has not improved his abdominal pain. He is also on Cosentyx for psoriasis. (more content not included)... [facility] CNOVSPon 05-14-2025 CNOVSP Visit (SP) Office (H EMAWS) -- SHARONDA FLORES ([id number]) 1955 [facility] Date Time Provider Department 05/14/25 8:50 AM ANALY DUMONT During your visit today, we recorded the following information about you: Temperature Pulse Blood pressure Weight 98.3 degrees 67/minute 129/78 74.4 kg Analy Dumont DO 05/14/2025 9:11 AM Signed Oncologic problem(s): 1) NSCLC s/p resection. HPI: The patient is a 69-year-old male with past medical history as outlined below. Had a screening CT of the lung 11/06/2023. Observed to have a solid nodule in the right upper lobe with an average diameter of approximately 10.2 mm. It would. Mildly larger when compared to scan in July 2023. There were 2 other nodules in the right upper lobe. 1 of which appeared stable and the other measuring 4 x 3 mm may have been slightly larger than when compared to previous scan. A 7.1 mm parenchymal density in the right upper lobe on PET scan performed subsequently had an SUV of 4.1. Ultimately underwent a right sided VATS right upper lobectomy on 02/09/2024. Pathology: FINAL DIAGNOSIS A. Lung, right upper lobe, wedge resection: - Adenocarcinoma, acinar subtype. - Inked surgical margin is positive for carcinoma. - See comment. B. Lymph node, level 9, excision: - Lymph node tissue, negative for carcinoma (0/1). C. Lung, right upper lobe, lobectomy: - Adenocarcinoma, acinar (60%) and lepidic (40%) patterns. - Margins (bronchial, vascular and parenchymal margins) negative for tumor. - Focal features suggestive of prior infarct. - Seven lymph nodes, negative for carcinoma (0/7). - See comment and synoptic report. D. Lymph node, level 4, excision: - Fibroadipose tissue, negative for tumor. - Lymph node tissue is not present. E. Lymph node, level 7, excision: - One lymph node, negative for carcinoma (0/1). Diagnosis Comment A. The tumor in part A shows extensive frozen artifact which limits the morphologic evaluation as well as the evaluation for size,vascular space and pleural invasion. C. Targeted oncology profile (TOP), ALK, PDL1, ROS1 and RET testing will be performed A, C. Dr. Erica Roberts has reviewed this case and agrees with the above diagnosis. Block for additional Biomarkers/Molecular studies C16 Synoptic Report LUNG 8th Edition - Protocol posted: 04/20/2022LUNG: RESECTION - All Specimens SPECIMEN Procedure Lobectomy Specimen Laterality Right TUMOR Tumor Focality Single focus Tumor Site Upper lobe of lung Tumor Size Total Tumor Size (size of entire tumor) Greatest Dimension (Centimeters): at least 1.5 cm Size of Invasive Component Greatest Dimension (Centimeters): at least 1.5 cm Histologic Type Invasive acinar adenocarcinoma Histologic Patterns Present Acinar: 80 Histologic Grade G2, moderately differentiated Spread Through Air Spaces (ANITA) Not identified Visceral Pleura Invasion Not identified Direct Invasion of Adjacent Structures Not applicable (no adjacent structures present) Treatment Effect No known presurgical therapy Lymphovascular Invasion Not identified MARGINS Margin Status for Invasive Carcinoma All margins negative for invasive carcinoma Closest Margin(s) to Invasive Carcinoma Bronchial Vascular Parenchymal Distance from Invasive Carcinoma to Closest Margin 3.5 cm Margin Status for Non-Invasive Tumor All margins negative for non-invasive tumor REGIONAL LYMPH NODES Lymph Node(s) from Prior Procedures Not included Regional Lymph Node Status All regional lymph nodes negative for tumor Number of Lymph Nodes Examined 9 Erika Site(s) Examined 4R: Lower paratracheal 9R: Pulmonary ligament 7: Subcarinal PATHOLOGIC STAGE CLASSIFICATION (pTNM, AJCC 8th Edition) Reporting of pT, pN, and (when applicable) pM categories is based on information available to the pathologist at the time the report is issued. As per the AJCC (Chapter 1, 8th Ed.) it is the managing physician?s responsibility to establish the final pathologic stage based upon all pertinent information, including but potentially not limited to this pathology report. pT Category pT1b pN Category pN0 . Presents for ongoing oncologic management. Interim history: Had 3 vessel CABG 06/2024. Since last seen: Underwent EGD. Findings noted. Saw general surgery. Started on PPI. Had a CT abdomen pelvis that showed contracted gallbladder. Still having pain that is exacerbated with activity and eating different foods. He has been eating a lot of eggs salad sandwiches because they seem to sit best with him. Nausea improved after starting PPI. Still gets flares of right upper quadrant pain nonetheless. No other GI symptoms. No change in overall respiratory status. PAST MEDICAL HISTORY Diagnosis Date Abdominal ao (more content not included)... Normal [facility] CNOVon 04-21-2025 CNOV Office Visit (YULIYAWS ) -- SHARONDA FLORES ([id number]) 1955 M [facility] Date Time Provider Department 04/21/25 7:20 AM ALEJANDRA VIRAMONTES During your visit today, we recorded the following information about you: Pulse Blood pressure Weight Height 63/minute 144/87 74.4 kg 1.69 m Alejandra Viramontes APRN.CNP 04/21/2025 3:15 PM Signed 04/21/2025 Patient presents with: Follow Up Results Recording using Purple software for draft documentation of the visit was discussed with the patient/authorized sales representative electric service; all questions welcomed and answered. Patient/authorized sales representative electric service agreed to proceed SUBJECTIVE: This is a 69 year old that is here today for Above Complaints.. Followed up with gastro for RUQ pain and nausea that has been ongoing since his right upper lung resection in 2023. Pain is intermittent and described as a numbness that shoots. Physical activity seems to make it worse. Recently completed EGD and colonoscopy. Was place on Protonix about five days ago by gastro for the pain. Was instructed to take for 90 days. Also instructed if no improvement in pain then to inform gastro and they would order HIDA scan. PAST MEDICAL HISTORY Diagnosis Date Abdominal aortic aneurysm (AAA) without rupture 3 x 3.1 cm 05/2021, repeat 1 year. 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 Tineo Essential hypertension Heart attack (HCC) 2011 s/p stents History of tobacco use HLD (hyperlipidemia) Multiple lung nodules on CT 11/09/2023 PET scan ordered PAD (peripheral artery disease) 04/04/2024 Mild to moderate disease LLE on LINH Primary lung adenocarcinoma, right (HCC) RUL,s/p 02/09/24 flexible bronchoscopy, right VATS, right upper lobe wedge resection, cryo nerve block, mediastinal lymph node dissection Psoriasis [facility] S/P lobectomy of lung S/P triple vessel bypass 07/25/2024 Thrombocytopenia Tinnitus of both ears ALLERGIES Penicillins MEDICATIONS Current Outpatient Medications Medication Sig pantoprazole DR (PROTONIX) 20 mg tablet Take 1 tablet by mouth once daily. secukinumab (COSENTYX, 2 SYRINGES,) 150 mg/mL injection Inject 300 mg subcutaneously one time a week. docusate sodium (COLACE) 100 mg capsule Take 1 capsule by mouth two times a day as needed for constipation. ezetimibe (ZETIA) 10 mg tablet Take 10 mg by mouth once daily. isosorbide mononitrate ER (IMDUR) 30 mg 24 hr tablet Take 30 mg by mouth once daily. methocarbamol 1,000 mg tablet Take 1,000 mg by mouth four times daily. clopidogrel (PLAVIX) 75 mg tablet Take 75 mg by mouth. atorvastatin (LIPITOR) 80 mg tablet Take 1 tablet by mouth daily at bedtime. For cholesterol. Aspirin 81 mg Tab Take 81 mg by mouth once daily. polyethylene glycol 3350 (MIRALAX) 17 gram/dose powder Take 17 g by mouth two times a day. Dissolve dose in 4 - 8 ounces of liquid and take as directed. (Patient not taking: Reported on 04/21/2025) No current facility-administered medications for this visit. Medications and allergies reviewed by this provider. SOCIAL HISTORY SOCIAL HISTORY[1] REVIEW OF SYSTEMS All other reviewed and negative other than HPI. OBJECTIVE: BP 144/87 Pulse 63 Ht 169 cm (5' 6.54) Wt 74.4 kg (164 lb) BMI 26.04 kg/m? . Vital signs reviewed by this provider. APPEARANCE Well appearing, alert, in no acute distress, well-hydrated, well nourished. DTaP,Tdap,Td Vaccine(1 - Tdap) Never done Shingrix Vaccine(1 of 2) Never done Pneumococcal Vaccine: 50+(1 of 2 - PCV) Never done RSV Vaccine(1 - Risk 60-74 years 1-dose series) Never done Advance Directive Discussion due on 07/31/2024 Depression Screening due on 12/07/2024 Anxiety Screening due on 12/07/2024 Medicare Annual Wellness Visit due on 12/07/2024 Influenza Vaccine(1) due on 01/27/2026 LDL Cholesterol due on 09/02/2025 Annual PCP Team Chronic Disease Visit due on 04/21/2026 Diabetes Screening due on 03/19/2028 Lipid Screening due on 09/02/2029 Colorectal Cancer Screening due on 04/08/2035 Abdominal Aortic Aneurysm Screening Completed Hepatitis C Screening Completed ASSESSMENT/PLAN: 1. RUQ pain - ICD9: 789.01, ICD10: R10.11 - not exactly sure why he is following up today as this was addressed by gastro - instructed patient to continue their recommendations and follow-up as instructed - follow-up with PCP in 6 months for routine visit, sooner if needed Alejandra PodlogSESAR alcala.[employer]GER Prescription instructions reviewed with patient as applicable. Patient advised if symptoms do not improve or if symptoms worsen sooner, to contact their primary care physician. Potential red flag symptoms discussed with the patient. Reviewed appropriate action plan to take if red flag symptoms occur. Patient agreeable to treatm (more content not included)... Normal [facility] CNOVon 04-15-2025 CNOV Office Visit (GENSWS ) -- SHARONDA FLORES ([id number]) 1955 [facility] Date Time Provider Department 04/15/25 10:00 AM SARAY MARINELLI GENS During your visit today, we recorded the following information about you: Saray Marinelli APRN.CNP 04/15/2025 10:12 AM Signed FOLLOW UP VISIT - ENDOSCOPY Sharonda Flores 1955 [id number] REFERRING PHYSICIAN: No referring provider defined for this encounter. Sharonda Flores is a patient I am following for melena AND RUQ pain. Dr. Robles performed upper AND lower endoscopy on 04/08/25. The patient was found to have EGD Patchy mildly erythematous mucosa without active bleeding and with no stigmata of bleeding was found in the duodenal bulb. Biopsies were taken with a cold forceps for histology. Patchy mildly erythematous mucosa without bleeding was found in the gastric body. Biopsies were taken with a cold forceps for histology. Also biopsy taken of antrum for h pylori. Verification of patient identification for the specimen was done by the nurse. Estimated blood loss was minimal. A very small hiatal hernia was present. COLONOSCOPY Impression: - Non-bleeding internal hemorrhoids. - Diverticulosis in the sigmoid colon. - No specimens collected. Pathology demonstrated: FINAL DIAGNOSIS A. Small bowel, duodenum, biopsy: - Superficial fragments of small bowel mucosa with extensive gastric mucin cell metaplasia B. Stomach, antrum, biopsy: - Antral-type gastric mucosa with no diagnostic abnormalities. - No helicobacter organisms identified. C. Stomach, body, biopsy: - Fragments of antral and oxyntic type gastric mucosa with no diagnostic abnormalities. - No helicobacter organisms identified. RUQ US IMPRESSION: 1. Gallbladder is contracted with thickened wall 2. Spleen is mildly enlarged The patient notes continued struggles with constipation -noting he needs to use catrol oil -can't eat late at night or red sauce or he tastes his food -does use pepto bismol -notes nausea after eating VITALS: There were no vitals taken for this visit. General: patient is alert, cooperative, pleasant and in no acute distress On examination, the abdomen is RUQ pain. Assessment ASSESSMENT/PLAN: 1. RUQ pain - ICD9: 789.01, ICD10: R10.11 - Begin treatment with Protonix 20 mg every day x 3 mos - If post prandial nausea is not relieved with Protonix after 1 month will order HIDA - RUQ pain not believe to be related to gallbladder since it is not post prandial AND has been present since CABG in 2023- if no improvement with protonix will refer to GI I reviewed the results with Dr. Robles who agrees with the above plan. The operative findings and pathology report were reviewed with the patient, and the patient has had the opportunity to ask questions and have questions answered. If the patient notes any problems or changes in bowel function, the patient should contact me immediately. Otherwise I recommend follow up colonoscopy in 5 to 10 years. HM updated. Discussed treatment plan and patient voices understanding. Patient's questions answered appropriately. Medications and potential side effects were discussed and patient voices understanding. Return to the office as scheduled or as needed for worsening/no improvement. _ KAVYA Rosa Kimberley, APRN.CNP 04/15/2025 10:02 AM Signed Start taking Protonix 20mg daily in the morning at least 30 minutes before eating or drinking for 3 months, at 3 months can stop taking medication -if no improvement with the nausea after eating in 1 month let me know and I will order a HIDA scan to check the functioning of the gallbladder -normal to experience diarrhea and bloating for the first week or two while taking the medication, if it is intolerable let me know and we can switch to a similar medication 2. Repeat colonoscopy in 5 to 10 years or sooner with any concerning symptoms Allergies As of Date: 04/15/2025 Noted Allergy Reaction PENICILLINS 05/23/2008 4 - Hives Date Reviewed: 04/15/2025 Reviewed by: Saray Marinelli APRN.DISASTER RECOVERY MANAGER - Fully Assessed Reason for Visit: Follow Up [171] Cmt: Follow up to colonoscopy Primary Visit Diagnosis:RUQ pain [R10.11] Order(s):pantoprazole DR (PROTONIX) 20 mg tabletTake 1 tablet by mouth once daily.Disp: 90 tabletRfl: 0 Prescriptions as of 04/15/2025 - pantoprazole DR (PROTONIX) 20 mg tablet Take 1 tablet by mouth once daily. - secukinumab (COSENTYX, 2 SYRINGES,) 150 mg/mL injection Inject 300 mg subcutaneously one time a week. - docusate sodium (COLACE) 100 mg capsule Take 1 capsule by mouth two times a day as needed for constipation. - polyethylene glycol 3350 (MIRALAX) 17 gram/dose powder Take 17 g by mouth two times a day. Dissolve dose in 4 - 8 ounces of liquid and take as directed. - ezetimibe (ZETIA) 10 (more content not included)... Normal [facility] CN Office Visit (VASSWS ) -- SHARONDA FLORES ([id number]) 1955 M [place] Date Time Provider Department 04/15/25 8:30 AM CRISTO LOERAS During your visit today, we recorded the following information about you: Pulse Blood pressure 71/minute 131/76 Cristo Loera, DO 04/15/2025 4:31 PM Signed [facility] DEPARTMENT OF VASCULAR SURGERY OUTPATIENT VISIT DATE April 15, 2025 OUTPATIENT VISIT TYPE CONSULTATION SERVICE DATE: 04/15/2025 SERVICE TIME: 8:18 AM PRIMARY CARE PHYSICIAN: Tima Tello MD REFERRING PROVIDER: Tima Tello [id number] [facility] [id number] Consult requested for an opinion regarding the evaluation and treatment of the above. My final impression and recommendations will be communicated back to the requesting physician by way of the shared medical record or letter via US mail. CHIEF COMPLAINT: AAA, atherosclerotic ulcer of aorta HISTORY OF PRESENT ILLNESS: Vascular consultation at the request of Dr. Tima Tello. A copy of this consultation note will be provided to the requesting physician by way of shared Medical record or letter to requesting physician via US mail. Mr. Flores is a 69 year old male who is seen today for AAA and atherosclerotic ulcer. He has been having right upper quadrant pain which he has noticed after his CABG and VATS. He denies significant family history of aneurysmal disease. States he had blood pressure cuff testing on his legs in the past and carotid ultrasound. His biggest concern is of upper abdominal pain. Denies significant history of trauma or tearing/crushing abdominal or back pain. PAST MEDICAL HISTORY Diagnosis Date Abdominal aortic aneurysm (AAA) without rupture 3 x 3.1 cm 05/2021, repeat 1 year. 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 Tineo Essential hypertension Heart attack (HCC) 2012 s/p stents History of tobacco use HLD (hyperlipidemia) Multiple lung nodules on CT 11/09/2023 PET scan ordered PAD (peripheral artery disease) 04/04/2024 Mild to moderate disease LLE on LINH Primary lung adenocarcinoma, right (HCC) RUL,s/p 02/09/24 flexible bronchoscopy, right VATS, right upper lobe wedge resection, cryo nerve block, mediastinal lymph node dissection Psoriasis [facility] S/P lobectomy of lung S/P triple vessel bypass 07/25/2024 Thrombocytopenia Tinnitus of both ears PAST SURGICAL HISTORY Procedure Laterality Date APPENDECTOMY HX COLONOSCOPY 04/08/2025 COLONOSCOPY FLX DX W/COLLJ SPEC WHEN PFRMD 10/08/2008 Colonoscopy COLONOSCOPY FLX DX W/COLLJ SPEC WHEN PFRMD 08/03/2021 repeat in 10 years EGD 04/08/2025 EXTRACTION, ERUPTED TOOTH OR EXPOSED ROOT (ELEVATION AND/OR FORCEPS REMOVAL) wisdom HEART CATHETERIZATION 2012 stent x 4 HEART SURGERY HX LUNG SURGERY HX Right 02/09/2024 right VATS Right Upper lobe Lung resection PAST SURGICAL HISTORY OF age 6 appendectomy, no rupture PAST SURGICAL HISTORY OF Right 09/2021 cyst removal from chest wall PAST SURGICAL HISTORY OF 07/25/2024 Triple Bypass PT ED HEART AND VASCULAR 2012 TONSILLECTOMY HX TONSILLECTOMY PRIMARY/SECONDARY tonsillectomy SOCIAL HISTORY: SOCIAL HISTORY[1] FAMILY HISTORY Problem Relation Age of Onset Breast Cancer Mother Heart Father details uncertain; ? h/o rheumatic fever Stroke Father details uncertain No Known Problems Brother No Known Problems Daughter No Known Problems Daughter No Known Problems Son No Known Problems Son No Known Problems Maternal Grandmother No Known Problems Maternal Grandfather No Known Problems Paternal Grandmother No Known Problems Paternal Grandfather Diabetes Other none Colon Cancer Other none Prostate Cancer Other none Anesthesia Problems No Family History MEDICATIONS: secukinumab (COSENTYX, 2 SYRINGES,) 150 mg/mL injection Inject 300 mg subcutaneously one time a week. docusate sodium (COLACE) 100 mg capsule Take 1 capsule by mouth two times a day as needed for constipation. polyethylene glycol 3350 (MIRALAX) 17 gram/dose powder Take 17 g by mouth two times a day. Dissolve dose in 4 - 8 ounces of liquid and take as directed. ezetimibe (ZETIA) 10 mg tablet Take 10 mg by mouth once daily. isosorbide mononitrate ER (IMDUR) 30 mg 24 hr tablet Take 30 mg by mouth once daily. methocarbamol 1,000 mg tablet Take 1,000 mg by mouth four times daily. clopidogrel (PLAVIX) 75 mg tablet Take 75 mg by mouth. atorvastatin (LIPITOR) 80 mg tablet Take 1 tablet by mouth daily at bedtime. For cholesterol. Aspirin 81 mg Tab Take 81 mg by mouth once daily. ALLERGIES: ALLERGIES Allergen Reactions Penicillins Hives REVIEW of SYSTEM: Constitutional: Negative for Malaise and (more content not included)... Normal [facility] [id number] 36 Pended rx, PULLER OVER to s ign. BETH Dr. Tineo 11/13/24. CBC completed 03/19/25 Normal [facility] 36 Requesting refill clopidogrel (Plavix) 75 MG tablet [facility] Normal [facility] 36 Discussed with pt, h e is reaching out to Dr. Tineo's office for refills. [facility] 36on 04-13-2025 36 Name of caller: Len Contact phone number: [phone] Relationship to Patient: patient Provider: [facility] Practice: Cardiothoracic Surgery Chief Complaint/Reason for Call: Patient is calling stating that he is unable to refill his ezetimibe (Zetia) 10 MG without contacting provider first. He has just a few weeks remaining. Advised he may need to contact office on Monday morning, 04/14/25 to discuss. Please call to advise. Best time of day caller can be reached: Any Patient advised that office/PCP has 24-48 business hours to return their call: Yes Normal [facility] CT ABD/PEL W IVCONon 025 CT ABD/PEL W IVCON * * *Final Report* * * DATE OF EXAM: Apr 11 2025 12:04PM [facility] 0530 - CT ABD/PEL W IVCON / PROCEDURE REASON: multiple diagnoses * * * * Physician Interpretation * * * * EXAMINATION: CT ABDOMEN AND PELVIS WITH IV CONTRAST CLINICAL HISTORY: Melena. TECHNIQUE: CT of the abdomen and pelvis was performed using standard technique, scanning from just above the dome of the diaphragm to the symphysis pubis. MQ: CTAP_3 Contrast: IV: 100 ml of Omnipaque 350 Oral: 10 ml of Omni 240 10-25ml diluted with water CT Radiation dose: Integrated Dose-length product (DLP) for this visit = 568 mGy*cm. CT Dose Reduction Employed: Automated exposure control(AEC) and iterative recon COMPARISON: CT abdomen pelvis on 01/21/2013 RESULT: Liver: There are a few low-attenuation lesions or cysts measuring up to 9 mm. Biliary: No bile duct dilation. No CT evidence of gallbladder stones. Spleen: No mass. The spleen is within upper normal limits in size. Pancreas: No mass or duct dilation. Adrenals: No mass. Kidneys: No kidney mass, abnormal enhancement or hydroureteronephrosis. GI tract: No bowel obstruction. The appendix is surgically absent. There appears to be thickening in the sigmoid colon, to lesser extent in the distal descending colon. No significant soft tissue stranding/edema along the large bowel loops. Lymph nodes: No abdominal or pelvic lymphadenopathy. Mesentery/Peritoneum: No ascites or mass or free abdominal air. Retroperitoneum: No mass. Vasculature: The celiac artery, SMA, KALINA and portal veins are patent. Noted is interval AAA in the distal abdomen aorta measuring 3.4 x 3 x 4.5 cm, with mural thrombus. Just superior to the AAA, there appears be a 1.1 cm atherosclerotic ulcer projecting over from the posterior wall of the abdomen aorta, series 6 image 62. Atherosclerotic calcifications noted in the abdomen aorta and its branches. Pelvis: No mass, ascites or fluid collection. Bones/Soft Tissues: Stable abdominal wall soft tissue. There are degenerative changes in the spine. Lower thorax: No pleural effusions. Lung bases are clear of consolidations. Localizer images: No additional findings. IMPRESSION: Subcentimeter low-attenuation lesions or cysts in the liver. Bowel wall thickening in the sigmoid colon and descending colon, without adjacent soft tissue stranding or edema. Please clinically correlate. AAA in the distal abdominal aorta. Atherosclerotic ulcer in the abdomen aorta. Security Business Analyst: [facility] Transcribe Date/Time: Apr 11 2025 12:30P Dictated by : JAIRO CARMONA MD This examination was interpreted and the report reviewed and electronically signed by: JAIRO CARMONA MD on Apr 11 2025 12:45PM [facility] [id number] Normal [facility] CT Abdomen and Pelvis W cont rast Ana Rosa 04-11-2025 IMPRESSION: Subcentimeter low-attenuation lesions or cysts in the liver. Bowel wall thickening in the sigmoid colon and descending colon, without adjacent soft tissue stranding or edema. Please clinically correlate. AAA in the distal abdominal aorta. Atherosclerotic ulcer in the abdomen aorta. Security Business Analyst: [facility] Transcribe Date/Time: Apr 11 2025 12:30P Dictated by : JAIRO CARMONA MD This examination was interpreted and the report reviewed and electronically signed by: JAIRO CARMONA MD on Apr 11 2025 12:45PM [facility] DIVISION OF RADIOLOGY * * *Final Report* * * DATE OF EXAM: Apr 11 2025 12:04PM [facility] 0530 - CT ABD/PEL W IVCON / PROCEDURE REASON: multiple diagnoses * * * * Physician Interpretation * * * * EXAMINATION: CT ABDOMEN AND PELVIS WITH IV CONTRAST CLINICAL HISTORY: Melena. TECHNIQUE: CT of the abdomen and pelvis was performed using standard technique, scanning from just above the dome of the diaphragm to the symphysis pubis. MQ: CTAP_3 Contrast: IV: 100 ml of Omnipaque 350 Oral: 10 ml of Omni 240 10-25ml diluted with water CT Radiation dose: Integrated Dose-length product (DLP) for this visit = 568 mGy*cm. CT Dose Reduction Employed: Automated exposure control(AEC) and iterative recon COMPARISON: CT abdomen pelvis on 01/21/2013 RESULT: Liver: There are a few low-attenuation lesions or cysts measuring up to 9 mm. Biliary: No bile duct dilation. No CT evidence of gallbladder stones. Spleen: No mass. The spleen is within upper normal limits in size. Pancreas: No mass or duct dilation. Adrenals: No mass. Kidneys: No kidney mass, abnormal enhancement or hydroureteronephrosis. GI tract: No bowel obstruction. The appendix is surgically absent. There appears to be thickening in the sigmoid colon, to lesser extent in the distal descending colon. No significant soft tissue stranding/edema along the large bowel loops. Lymph nodes: No abdominal or pelvic lymphadenopathy. Mesentery/Peritoneum: No ascites or mass or free abdominal air. Retroperitoneum: No mass. Vasculature: The celiac artery, SMA, KALINA and portal veins are patent. Noted is interval AAA in the distal abdomen aorta measuring 3.4 x 3 x 4.5 cm, with mural thrombus. Just superior to the AAA, there appears be a 1.1 cm atherosclerotic ulcer projecting over from the posterior wall of the abdomen aorta, series 6 image 62. Atherosclerotic calcifications noted in the abdomen aorta and its branches. Pelvis: No mass, ascites or fluid collection. Bones/Soft Tissues: Stable abdominal wall soft tissue. There are degenerative changes in the spine. Lower thorax: No pleural effusions. Lung bases are clear of consolidations. Localizer images: No additional findings. DIVISION OF RADIOLOGY Provider, [facility] - 04/11/2025 * * *Final Report* * * DATE OF EXAM: Apr 11 2025 12:04PM [facility] 0530 - CT ABD/PEL W IVCON / PROCEDURE REASON: multiple diagnoses * * * * Physician Interpretation * * * * EXAMINATION: CT ABDOMEN AND PELVIS WITH IV CONTRAST CLINICAL HISTORY: Melena. TECHNIQUE: CT of the abdomen and pelvis was performed using standard technique, scanning from just above the dome of the diaphragm to the symphysis pubis. MQ: CTAP_3 Contrast: IV: 100 ml of Omnipaque 350 Oral: 10 ml of Omni 240 10-25ml diluted with water CT Radiation dose: Integrated Dose-length product (DLP) for this visit = 568 mGy*cm. CT Dose Reduction Employed: Automated exposure control(AEC) and iterative recon COMPARISON: CT abdomen pelvis on 01/21/2013 RESULT: Liver: There are a few low-attenuation lesions or cysts measuring up to 9 mm. Biliary: No bile duct dilation. No CT evidence of gallbladder stones. Spleen: No mass. The spleen is within upper normal limits in size. Pancreas: No mass or duct dilation. Adrenals: No mass. Kidneys: No kidney mass, abnormal enhancement or hydroureteronephrosis. GI tract: No bowel obstruction. The appendix is surgically absent. There appears to be thickening in the sigmoid colon, to lesser extent in the distal descending colon. No significant soft tissue stranding/edema along the large bowel loops. Lymph nodes: No abdominal or pelvic lymphadenopathy. Mesentery/Peritoneum: No ascites or mass or free abdominal air. Retroperitoneum: No mass. Vasculature: The celiac artery, SMA, KALINA and portal veins are patent. Noted is interval AAA in the distal abdomen aorta measuring 3.4 x 3 x 4.5 cm, with mural thrombus. Just superior to the AAA, there appears be a 1.1 cm atherosclerotic ulcer projecting over from the posterior wall of the abdomen aorta, series 6 image 62. Atherosclerotic calcifications noted in the abdomen aorta and its branches. Pelvis: No mass, ascites or fluid collection. Bones/Soft Tissues: Stable abdominal wall soft tissue. There are degenerative changes in the spine. Lower thorax: No pleural effusions. Lung bases are clear of consolidations. Localizer images: No additional findings. IMPRESSION IMPRESSION: Subcentimeter low-attenuation lesions or cysts in the liver. Bowel wall thickening in the sigmoid colon and descending colon, without adjacent soft tissue stranding or edema. Please clinically correlate. AAA in the distal abdominal aorta. Atherosclerotic ulcer in the abdomen aorta. Security Business Analyst: [facility] Transcribe Date/Time: Apr 11 2025 12:30P Dictated by : JAIRO CARMONA MD This examination was interpreted and the report reviewed and electronically signed by: AJIRO CARMONA MD on Apr 11 2025 12:45PM EST [facility] Radiology Study observation (narrative) [facility] CT Abdomen and Pelvis W cont rast IVOrdered By: [facility] Provider on 04-11-2025 [facility] CNOVSPon 04-09-2025 CNOVSP Visit (SP) Office (H EMAWS) -- SHARONDA FLORES ([id number]) 1955 M [facility] Date Time Provider Department 04/09/25 9:10 AM ANALY DUMONT During your visit today, we recorded the following information about you: Temperature Pulse Blood pressure Weight 97.7 degrees 82/minute 123/74 72.8 kg Analy Dumont DO 04/09/2025 10:48 AM Signed Oncologic problem(s): 1) NSCLC s/p resection. HPI: The patient is a 69-year-old male with past medical history as outlined below. Had a screening CT of the lung 11/06/2023. Observed to have a solid nodule in the right upper lobe with an average diameter of approximately 10.2 mm. It would. Mildly larger when compared to scan in July 2023. There were 2 other nodules in the right upper lobe. 1 of which appeared stable and the other measuring 4 x 3 mm may have been slightly larger than when compared to previous scan. A 7.1 mm parenchymal density in the right upper lobe on PET scan performed subsequently had an SUV of 4.1. Ultimately underwent a right sided VATS right upper lobectomy on 02/09/2024. Pathology: FINAL DIAGNOSIS A. Lung, right upper lobe, wedge resection: - Adenocarcinoma, acinar subtype. - Inked surgical margin is positive for carcinoma. - See comment. B. Lymph node, level 9, excision: - Lymph node tissue, negative for carcinoma (0/1). C. Lung, right upper lobe, lobectomy: - Adenocarcinoma, acinar (60%) and lepidic (40%) patterns. - Margins (bronchial, vascular and parenchymal margins) negative for tumor. - Focal features suggestive of prior infarct. - Seven lymph nodes, negative for carcinoma (0/7). - See comment and synoptic report. D. Lymph node, level 4, excision: - Fibroadipose tissue, negative for tumor. - Lymph node tissue is not present. E. Lymph node, level 7, excision: - One lymph node, negative for carcinoma (0/1). Diagnosis Comment A. The tumor in part A shows extensive frozen artifact which limits the morphologic evaluation as well as the evaluation for size,vascular space and pleural invasion. C. Targeted oncology profile (TOP), ALK, PDL1, ROS1 and RET testing will be performed A, C. Dr. Erica Roberts has reviewed this case and agrees with the above diagnosis. Block for additional Biomarkers/Molecular studies C16 Synoptic Report LUNG 8th Edition - Protocol posted: 04/20/2022LUNG: RESECTION - All Specimens SPECIMEN Procedure Lobectomy Specimen Laterality Right TUMOR Tumor Focality Single focus Tumor Site Upper lobe of lung Tumor Size Total Tumor Size (size of entire tumor) Greatest Dimension (Centimeters): at least 1.5 cm Size of Invasive Component Greatest Dimension (Centimeters): at least 1.5 cm Histologic Type Invasive acinar adenocarcinoma Histologic Patterns Present Acinar: 80 Histologic Grade G2, moderately differentiated Spread Through Air Spaces (ANITA) Not identified Visceral Pleura Invasion Not identified Direct Invasion of Adjacent Structures Not applicable (no adjacent structures present) Treatment Effect No known presurgical therapy Lymphovascular Invasion Not identified MARGINS Margin Status for Invasive Carcinoma All margins negative for invasive carcinoma Closest Margin(s) to Invasive Carcinoma Bronchial Vascular Parenchymal Distance from Invasive Carcinoma to Closest Margin 3.5 cm Margin Status for Non-Invasive Tumor All margins negative for non-invasive tumor REGIONAL LYMPH NODES Lymph Node(s) from Prior Procedures Not included Regional Lymph Node Status All regional lymph nodes negative for tumor Number of Lymph Nodes Examined 9 Erika Site(s) Examined 4R: Lower paratracheal 9R: Pulmonary ligament 7: Subcarinal PATHOLOGIC STAGE CLASSIFICATION (pTNM, AJCC 8th Edition) Reporting of pT, pN, and (when applicable) pM categories is based on information available to the pathologist at the time the report is issued. As per the AJCC (Chapter 1, 8th Ed.) it is the managing physician?s responsibility to establish the final pathologic stage based upon all pertinent information, including but potentially not limited to this pathology report. pT Category pT1b pN Category pN0 . Presents for ongoing oncologic management. Interim history: Had 3 vessel CABG 06/2024. More constipated since last summer. Having RUQ pain that radiates around to back. Not worse with eating. Uses MiraLAX as advised by his PCP. Moving and taking deep breath can aggravated it. Had EGD and colonoscopy yesterday. Also had recent US RUQ. Results noted. PAST MEDICAL HISTORY Diagnosis Date Abdominal aortic aneurysm (AAA) without rupture 3 x 3.1 cm 05/2021, repeat 1 year. Benign neoplasm of colon Coronary artery disease involving chilkoot coronary artery of chilkoot heart without angina pectoris Dr. Tineo (more content not included)... Normal [facility] [id number] 04-08-2025 [id number] HNO ID: [id number] Author: JUANITA GODFREY RN Service: ? Author Type: Registered Nurse Type: [id number] Filed: 04/08/2025 16:17 Note Text: The patient received a copy of Colonoscopy and EGD discharge instructions that contain information for how to contact the physician who performed the procedure and when to seek medical care. Normal [facility]-08-2025 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 Last Colonoscopy: 2021. Referring Physician: Saray Marinelli (Referring MD) Medicines: Midazolam 3 mg IV, Fentanyl 50 micrograms IV, See the other procedure note for documentation of the administered medications Complications: No immediate complications. Requesting Provider: Procedure: Pre-Anesthesia Assessment: - Prior to the procedure, a History and Physical was performed, and patient medications and allergies were reviewed. The patient is competent. The risks and benefits of the procedure and the sedation options and risks were discussed with the patient. All questions were answered and informed consent was obtained. Patient identification and proposed procedure were verified by the physician in the pre-procedure area. Mental Status Examination: alert and oriented. Airway Examination: normal oropharyngeal airway and neck mobility. Respiratory Examination: clear to auscultation. CV Examination: normal. Prophylactic Antibiotics: The patient does not require prophylactic antibiotics. Prior Anticoagulants: The patient has taken no anticoagulant or antiplatelet agents. ASA Grade Assessment: II - A patient with mild systemic disease. After reviewing the risks and benefits, the patient was deemed in satisfactory condition to undergo the procedure. The anesthesia plan was to use moderate sedation / analgesia (conscious sedation). Immediately prior to administration of medications, the patient was re-assessed for adequacy to receive sedatives. The heart rate, respiratory rate, oxygen saturations, blood pressure, adequacy of pulmonary ventilation, and response to care were monitored throughout the procedure. The physical status of the patient was re-assessed after the procedure. After I obtained informed consent, the scope was passed under direct vision. Throughout the procedure, the patient's blood pressure, pulse, and oxygen saturations were monitored continuously. The Colonoscope was introduced through the anus and advanced to the cecum, identified by the appendiceal orifice, IC valve and transillumination. The colonoscopy was performed without difficulty. The patient tolerated the procedure well. The quality of the bowel preparation was adequate to identify polyps greater than 5 mm in size. The appendiceal orifice and the rectum were photographed. Moderate Sedation: The administration of moderate sedation was initiated at 15:24. Moderate (conscious) sedation was personally administered by the endoscopist. The following parameters were monitored: oxygen saturation, heart rate, blood pressure, respiratory rate, EKG, adequacy of pulmonary ventilation, and response to care. Moderate (conscious) sedation was personally administered by the endoscopist. The following parameters were monitored: oxygen saturation, heart rate, blood pressure, respiratory rate, EKG, adequacy of pulmonary ventilation, and response to care. Findings: The perianal and digital rectal examinations were normal. Non-bleeding internal hemorrhoids were found. A few small-mouthed diverticula were found in the sigmoid colon. Impression: - Non-bleeding internal hemorrhoids. - Diverticulosis in the sigmoid colon. - No specimens collected. Recommendation: - Discharge patient to home. - Resume previous diet. - Continue present medications. - - Repeat colonoscopy in 5-10 years for screening purposes. - Return to referring provider at the next available appointment for discussion of EGD results. - Patient has a contact number available for emergencies. The signs and symptoms of potential delayed complications were discussed with the patient. Return to normal activities tomorrow. Written discharge instructions were provided to the patient. Procedure Code(s): --- Professional --- 75346, Colonoscopy, flexible; diagnostic, including collection of specimen(s) by brushing or washing, when performed (separate procedure) Diagnosis Code(s): --- Professional --- K57.30, Diverticulosis of large intestine without perforation or abscess without bleeding K92.1, Melena (includes Hematochezia) K64.8, Other hemorrhoids CPT copyright 2020 [employer]. All rights reserved. The codes documented in this report are preliminary and upon uniform patrol police officer review may be revised to meet current compliance requirements. Attending Participation: I personally performed the entire procedure. Scope In: 3:41:47 PM Scope Out: 3:56:14 PM MD Mae Calvert MD 04/08/2025 4:02 (more content not included)... Normal [facility] EGD Study observation Gasper aleamn 04-08-2025 Vernon [facility] Gastrointestinal Endoscopy Patient Name: Sharonda Flores Procedure Date: 04/08/2025 3:08 PM Date of : 1955 Admit Type: Outpatient Age: 69 Gender: Male Note Status: Finalized Procedure: Upper GI endoscopy Indications: Abdominal pain in the right upper quadrant, Heartburn Providers: Mae Robles MD Patient Profile: Refer to note in patient chart for documentation of history and physical. Referring Physician: Saray Marinelli (Referring MD) Medicines: Midazolam 5 mg IV, Fentanyl 50 micrograms IV, Diphenhydramine 50 mg IV, Benzocaine spray, See the other procedure note for documentation of the administered medications Complications: No immediate complications. Requesting Provider: Procedure: Pre-Anesthesia Assessment: - Prior to the procedure, a History and Physical was performed, and patient medications and allergies were reviewed. The patient is competent. The risks and benefits of the procedure and the sedation options and risks were discussed with the patient. All questions were answered and informed consent was obtained. Patient identification and proposed procedure were verified by the physician in the pre-procedure area. Mental Status Examination: alert and oriented. Airway Examination: normal oropharyngeal airway and neck mobility. Respiratory Examination: clear to auscultation. Prophylactic Antibiotics: The patient does not require prophylactic antibiotics. Prior Anticoagulants: The patient has taken no anticoagulant or antiplatelet agents. ASA Grade Assessment: II - A patient with mild systemic disease. After reviewing the risks and benefits, the patient was deemed in satisfactory condition to undergo the procedure. The anesthesia plan was to use moderate sedation / analgesia (conscious sedation). Immediately prior to administration of medications, the patient was re-assessed for adequacy to receive sedatives. The heart rate, respiratory rate, oxygen saturations, blood pressure, adequacy of pulmonary ventilation, and response to care were monitored throughout the procedure. The physical status of the patient was re-assessed after the procedure. After obtaining informed consent, the endoscope was passed under direct vision. Throughout the procedure, the patient's blood pressure, pulse, and oxygen saturations were monitored continuously. The Endoscope was introduced through the mouth, and advanced to the second part of duodenum. The upper GI endoscopy was accomplished without difficulty. The patient tolerated the procedure. Moderate Sedation: The administration of moderate sedation was initiated at 15:24. Findings: Patchy mildly erythematous mucosa without active bleeding and with no stigmata of bleeding was found in the duodenal bulb. Biopsies were taken with a cold forceps for histology. Patchy mildly erythematous mucosa without bleeding was found in the gastric body. Biopsies were taken with a cold forceps for histology. Also biopsy taken of antrum for h pylori. Verification of patient identification for the specimen was done by the nurse. Estimated blood loss was minimal. A very small hiatal hernia was present. Impression: - No specimens collected. Recommendation: - Discharge patient to home (ambulatory). - Resume previous diet. - Continue present medications. - Await pathology results. - - Follow up with Kya Marinelli NP, , may be via televisit for discussion of pathology results and determination of timing of future endoscopies Procedure Code(s): --- Professional --- 99146, Esophagogastroduodenoscopy , flexible, transoral; diagnostic, including col (more content not included)... PROVATION [facility] Flexible sigmoidoscopy study on 04-08-2025 Nicko [facility] Gastrointestinal Endoscopy Patient Name: Sharonda Flores Procedure Date: 04/08/2025 3:07 PM Date of : 1955 Admit Type: Outpatient Age: 69 Gender: Male Note Status: Finalized Procedure: Colonoscopy Indications: Melena Providers: Mae Robles MD Patient Profile: Refer to note in patient chart for documentation of history and physical. Last Colonoscopy: 2021. Referring Physician: Saray Marinelli (Referring MD) Medicines: Midazolam 3 mg IV, Fentanyl 50 micrograms IV, See the other procedure note for documentation of the administered medications Complications: No immediate complications. Requesting Provider: Procedure: Pre-Anesthesia Assessment: - Prior to the procedure, a History and Physical was performed, and patient medications and allergies were reviewed. The patient is competent. The risks and benefits of the procedure and the sedation options and risks were discussed with the patient. All questions were answered and informed consent was obtained. Patient identification and proposed procedure were verified by the physician in the pre-procedure area. Mental Status Examination: alert and oriented. Airway Examination: normal oropharyngeal airway and neck mobility. Respiratory Examination: clear to auscultation. CV Examination: normal. Prophylactic Antibiotics: The patient does not require prophylactic antibiotics. Prior Anticoagulants: The patient has taken no anticoagulant or antiplatelet agents. ASA Grade Assessment: II - A patient with mild systemic disease. After reviewing the risks and benefits, the patient was deemed in satisfactory condition to undergo the procedure. The anesthesia plan was to use moderate sedation / analgesia (conscious sedation). Immediately prior to administration of medications, the patient was re-assessed for adequacy to receive sedatives. The heart rate, respiratory rate, oxygen saturations, blood pressure, adequacy of pulmonary ventilation, and response to care were monitored throughout the procedure. The physical status of the patient was re-assessed after the procedure. After I obtained informed consent, the scope was passed under direct vision. Throughout the procedure, the patient's blood pressure, pulse, and oxygen saturations were monitored continuously. The Colonoscope was introduced through the anus and advanced to the cecum, identified by the appendiceal orifice, IC valve and transillumination. The colonoscopy was performed without difficulty. The patient tolerated the procedure well. The quality of the bowel preparation was adequate to identify polyps greater than 5 mm in size. The appendiceal orifice and the rectum were photographed. Moderate Sedation: The administration of moderate sedation was initiated at 15:24. Moderate (conscious) sedation was personally administered by the endoscopist. The following parameters were monitored: oxygen saturation, heart rate, blood pressure, respiratory rate, EKG, adequacy of pulmonary ventilation, and response to care. Findings: The perianal and digital rectal examinations were normal. Non-bleeding internal hemorrhoids were found. A few small-mouthed diverticula were found in the sigmoid colon. Impression: - Non-bleeding internal hemorrhoids. - Diverticulosis in the sigmoid colon. - No specimens collected. Recommendation: - Discharge patient to home. - Resume previous diet. - Continue present medications. - - Repeat colonoscopy in 5-10 years for screening purposes. - Return to referring provider at the next available appointment for discussio (more content not included)... PR[facility]ATION [facility] HISTORY PHYSICALon HISTORY PHYSICAL HNO ID: [id number] Author: MAE ROBLES MD Service: General Surgery Author Type: Physician Type: H&P Filed: 04/08/2025 13:34 Note Text: HISTORY AND PHYSICAL Sharonda Flores : 1955 REFERRING PHYSICIAN: [facility] [id number] CHIEF COMPLAINT: Patient presents with: Rectal Problem: blood in stool HPI: Sharonda is a 69 year old male referred for endoscopy. [place] notes constipation AND melena. Sharonda notes abdominal pain. -relieved with bowel movement [place] denies diarrhea. Sharonda notes constipation. -chronic, happens one time a month -uses castor oil which causes black stools -no fiber supplements -tried miraLAX once with no relief [place] notes melena. -most recent BM described as black and watery Lutherpaulino denies bright red blood per rectum. Sharonda notes occasional hemorrhoids. [place] denies family history of colon issues. Sharonda notes heartburn. -if eating too late a night [place] denies dysphagia. Sharonda denies a history of ulcers/ peptic ulcer disease. Lutheralejandramingo notes a lot of nausea after eating [place] notes a lot of chronic RUQ pain that has been present since his CABG last year. Hx of CABG (06/2024), [place] s/p stents (2011), HLD, HTN AND AAA- follow with cardiology On plavix He CP, SOB, dizziness, palpitations, syncope, edema, recent hospitalizations Hx of RUL wedge 01/2024 d/t lung cancer. No chemo or radiation. Sharonda has undergone prior endoscopy. Last colonoscopy was 07/[address] Ariza at [facility]. Sedation: Midazolam 5 mg IV, Fentanyl 100 micrograms IV Impression: - Diverticulosis in the sigmoid colon. - Submucosal nodule in the recto-sigmoid colon. Biopsied. - The examination was otherwise normal on direct and retroflexion views. CONVERTED FINAL DIAGNOSIS Colon at 20 cm, biopsy - Hyperplastic polyp. TPP/lk 08/04/2021 CURRENT MEDICATIONS Current Outpatient Medications Medication Sig secukinumab (COSENTYX, 2 SYRINGES,) 150 mg/mL injection Inject 300 mg subcutaneously one time a week. docusate sodium (COLACE) 100 mg capsule Take 1 capsule by mouth two times a day as needed for constipation. ezetimibe (ZETIA) 10 mg tablet Take 10 mg by mouth once daily. isosorbide mononitrate ER (IMDUR) 30 mg 24 hr tablet Take 30 mg by mouth once daily. methocarbamol 1,000 mg tablet Take 1,000 mg by mouth four times daily. clopidogrel (PLAVIX) 75 mg tablet Take 75 mg by mouth. atorvastatin (LIPITOR) 80 mg tablet Take 1 tablet by mouth daily at bedtime. For cholesterol. Aspirin 81 mg Tab Take 81 mg by mouth once daily. peg 3350-Electrolytes (GOLYTELY) 236-22.74-6.74 -5.86 gram suspension Refer to printed prep instructions from your provider. polyethylene glycol 3350 (MIRALAX) 17 gram/dose powder Take 17 g by mouth two times a day. Dissolve dose in 4 - 8 ounces of liquid and take as directed. No current facility-administered medications for this visit. ALLERGIES: Penicillins PAST MEDICAL HISTORY PAST MEDICAL HISTORY Diagnosis Date Abdominal aortic aneurysm (AAA) without rupture 3 x 3.1 cm 05/2021, repeat 1 year. Benign neoplasm of colon Coronary artery disease involving chilkoot coronary artery of chilkoot heart without angina pectoris Dr. Tineo Essential hypertension Heart attack (HCC) 2011 s/p stents History of tobacco use HLD (hyperlipidemia) Multiple lung nodules on CT 11/09/2023 PET scan ordered PAD (peripheral artery disease) 04/04/2024 Mild to moderate disease LLE on LINH Primary lung adenocarcinoma, right (HCC) RUL,s/p 02/09/24 flexible bronchoscopy, right VATS, right upper lobe wedge resection, cryo nerve block, mediastinal lymph node dissection Psoriasis [facility] S/P lobectomy of lung S/P triple vessel bypass 07/25/2024 Thrombocytopenia Tinnitus of both ears PAST SURGICAL HISTORY PAST SURGICAL HISTORY Procedure Laterality Date COLONOSCOPY FLX DX W/COLLJ SPEC WHEN PFRMD 10/08/2008 Colonoscopy COLONOSCOPY FLX DX W/COLLJ SPEC WHEN PFRMD 08/03/2021 repeat in 10 years EXTRACTION, ERUPTED TOOTH OR EXPOSED ROOT (ELEVATION AND/OR FORCEPS REMOVAL) wisdom HEART CATHETERIZATION 2012 stent x 4 HEART SURGERY HX LUNG SURGERY HX Right 02/09/2024 right VATS Right Upper lobe Lung resection PAST SURGICAL HISTORY OF age 6 appendectomy, no rupture PAST SURGICAL HISTORY OF Right 09/2021 cyst removal from chest wall PAST SURGICAL HISTORY OF 07/25/2024 Triple Bypass PT ED HEART AND VASCULAR 2011 TONSILLECTOMY HX TONSILLECTOMY PRIMARY/SECONDARY tonsillectomy FAMILY HISTORY FAMILY HISTORY Problem Relation Age of Onset Breast Cancer Mother Heart Father details uncertain; ? h/o rheumatic fever Stroke Father details uncertain No Known Problems Brother No Known Problems Daughter No Known Problems Daughter No Known Problems Son No Known Problems Son No Known Problems Maternal Grandmother No Known P (more content not included)... Normal [facility] No Panel Informationon 04-08 Radiology Study observation (narrative) [facility] Pathology biopsy report Mustapha (Tiss)on 04-08-[address] [facility] Comment on above: Order Comment: Speci men Type: TISSUE SPECIMENOrdering Facility: [facility] Address: [address] [place] [address] Result Comment: Kathy palomo Developed Test (LDT) Disclaimer: Performance characteristics of immunohistochemical, immunofluorescent, and chromogenic in-situ hybridization tests have been determined by the performing laboratory within the [facility] Department of Pathology and Laboratory Medicine ([facility], [facility], [facility], [facility], [facility], [facility], or [facility]) in a manner consistent with CLIA requirements. One or more of these tests may not have been cleared or approved by the FDA. The [facility] Department of Pathology and Laboratory Medicine is regulated under CLIA as qualified to perform high-complexity testing. These tests are used for clinical purposes. These should not be regarded as investigational or for research. Positive and negative controls stain appropriately. Digital pathology was utilized on all slides in rendering a final diagnosis. Performed By: #### 6 6121-5 ####[facility] LAB[facility] [id number] [address] [place] CASE REPORT Normal [facility] Comment on above: Order Comment: Vernon sterling Type: TISSUE SPECIMENOrdering Facility: [facility] Address: [address] [place] [address] Result Comment: Surg ica Pathology Report Case: [id number] Authorizing Provider: Mae Robles MD Collected: 04/08/2025 03:25 PM Ordering Location: Ambulatory Surgery Received: 04/08/2025 05:11 PM Pathologist: Juice Manjarrez MD Specimens: A) - Small Bowel, Duodenum, Biopsy B) - Stomach, Antrum, Biopsy, Antral bx for H/H C) - Stomach, Biopsy, stomach body bx Performed By: #### 6 6121-5 ####[facility] [id number] [address] FINAL DIAGNOSIS Normal [facility] Comment on above: Order Comment: Charlesi asher Type: TISSUE SPECIMENOrdering Facility: [facility] Address: [address] [place] [address] Result Comment: A. S mall bowel, duodenum, biopsy: - Superficial fragments of small bowel mucosa with extensive gastric mucin cell metaplasia B. Stomach, antrum, biopsy: - Antral-type gastric mucosa with no diagnostic abnormalities. - No helicobacter organisms identified. C. Stomach, body, biopsy: - Fragments of antral and oxyntic type gastric mucosa with no diagnostic abnormalities. - No helicobacter organisms identified. at 1132 EDT Performed By: #### 6 6121-5 ####[facility] [id number] [address] FINAL PERFORMING LAB Normal [facility] Comment on above: Order Comment: Charlesi asher Type: TISSUE SPECIMENOrdering Facility: [facility] Address: [address] [place] [address] Result Comment: Diag nostic interpretation performed at: [facility], [address] [place], [place] [id number] CLIA# [id number] Camouflage Assembler: Bjorn Zuleta MD Performed By: #### 6 6121-5 ####[facility] LABIA [id number] [place] [address] [place] GROSS DESCRIPTION Normal [facility] Comment on above: Order Comment: Speci men Type: TISSUE SPECIMENOrdering Facility: [facility] Address: [address] [place] [address] Result Comment: A. S mall Bowel, Duodenum, Biopsy Received in formalin is one piece of prather, soft tissue measuring 0.2 x 0.1 x 0.1 cm. Totally submitted in one cassette. B. Stomach, Antrum, Biopsy Received in formalin is one piece of prather, soft tissue measuring 0.2 x 0.2 x 0.1 cm. Totally submitted in one cassette. C. Stomach, Biopsy Received in formalin are two pieces of prather, soft tissue aggregating to 0.5 x 0.2 x 0.1 cm. Totally submitted in one cassette. 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 Referring Physician: Saray Marinelli (Referring ) Medicines: Midazolam 5 mg IV, Fentanyl 50 micrograms IV, Diphenhydramine 50 mg IV, Benzocaine spray, See the other procedure note for documentation of the administered medications Complications: No immediate complications. Requesting Provider: Procedure: Pre-Anesthesia Assessment: - Prior to the procedure, a History and Physical was performed, and patient medications and allergies were reviewed. The patient is competent. The risks and benefits of the procedure and the sedation options and risks were discussed with the patient. All questions were answered and informed consent was obtained. Patient identification and proposed procedure were verified by the physician in the pre-procedure area. Mental Status Examination: alert and oriented. Airway Examination: normal oropharyngeal airway and neck mobility. Respiratory Examination: clear to auscultation. Prophylactic Antibiotics: The patient does not require prophylactic antibiotics. Prior Anticoagulants: The patient has taken no anticoagulant or antiplatelet agents. ASA Grade Assessment: II - A patient with mild systemic disease. After reviewing the risks and benefits, the patient was deemed in satisfactory condition to undergo the procedure. The anesthesia plan was to use moderate sedation / analgesia (conscious sedation). Immediately prior to administration of medications, the patient was re-assessed for adequacy to receive sedatives. The heart rate, respiratory rate, oxygen saturations, blood pressure, adequacy of pulmonary ventilation, and response to care were monitored throughout the procedure. The physical status of the patient was re-assessed after the procedure. After obtaining informed consent, the endoscope was passed under direct vision. Throughout the procedure, the patient's blood pressure, pulse, and oxygen saturations were monitored continuously. The Endoscope was introduced through the mouth, and advanced to the second part of duodenum. The upper GI endoscopy was accomplished without difficulty. The patient tolerated the procedure. Moderate Sedation: The administration of moderate sedation was initiated at 15:24. Moderate (conscious) sedation was personally administered by the endoscopist. The following parameters were monitored: oxygen saturation, heart rate, blood pressure, respiratory rate, EKG, adequacy of pulmonary ventilation, and response to care. Findings: Patchy mildly erythematous mucosa without active bleeding and with no stigmata of bleeding was found in the duodenal bulb. Biopsies were taken with a cold forceps for histology. Patchy mildly erythematous mucosa without bleeding was found in the gastric body. Biopsies were taken with a cold forceps for histology. Also biopsy taken of antrum for h pylori. Verification of patient identification for the specimen was done by the nurse. Estimated blood loss was minimal. A very small hiatal hernia was present. Impression: - No specimens collected. Recommendation: - Discharge patient to home (ambulatory). - Resume previous diet. - Continue present medications. - Await pathology results. - - Follow up with Kya Marienlli NP, , may be via televisit for discussion of pathology results and determination of timing of future endoscopies Procedure Code(s): --- Professional --- 42921, Esophagogastroduodenoscopy , flexible, transoral; diagnostic, including collection of specimen(s) by brushing or washing, when performed (separate procedure) Diagnosis Code(s): --- Professional --- R12, Heartburn CPT copyright 2020 [employer]. All rights reserved. The codes documented in this report are preliminary and upon uniform patrol police officer review may be revised to meet current compliance requirements. Attending Participation: I personally performed the entire procedure. Scope In: 3:24:06 PM Scope Out: 3:33:37 PM MD Mae Calvert MD 04/08/2025 3:38:33 PM This report has been signed electronically by Mae Robles MD Number of Addenda: 0 Note Initiated On: 04/08/2025 3:08 PM Estimated Blood Loss: Estimated blood loss was minimal. Normal [facility] Panel Informationon 03-27 IMPRESSION: 1. Gallbladder is contracted with thickened wall 2. Spleen is mildly enlarged Security Business Analyst: BETTY Transcribe Date/Time: Mar 27 2025 9:55A Dictated by : ERICA LOPEZ DO This examination was interpreted and the report reviewed and electronically signed by: ERICA LOPEZ DO on Mar 27 2025 10:15AM [facility] DIVISION OF RADIOLOGY Radiology Study observation (narrative) [facility] No Panel InformationOrdered By: Ccf Provider on 03-27-2025 [facility] US ABD RIGHT UPPER QUADRANTo n 03-27-2025 US ABD RIGHT UPPER QUADRANT * * *Final Report* * * DATE OF EXAM: Mar 27 2025 7:40AM WRU 1032 - US ABD RIGHT UPPER QUADRANT / PROCEDURE REASON: multiple diagnoses * * * * Physician Interpretation * * * * EXAMINATION: RIGHT UPPER QUADRANT ULTRASOUND /ULTRASOUND SPLEEN HISTORY: Nausea RUQ abdominal pain TECHNIQUE: Sonography of the right upper quadrant was performed. Images were obtained and stored in a permanent archive. MQ: URUQ_1 COMPARISON: CT chest 03/11/2025 RESULT: * Pancreas: Not well visualized Liver: Echogenicity: Homogeneous Surface contour: Smooth * Lesions: Simple cyst anteriorly in the LEFT lobe of the liver. It measures 1.8 x 0.7 x 1.2 cm Biliary: No intrahepatic bile duct dilatation * CBD: Not well seen Gallbladder: * -Gallbladder is contracted with some thickening of the wall. Right Kidney: Grossly unremarkable Ascites: No ascites is seen Spleen: The spleen measures 12.2 cm in length. Main portal vein: Unremarkable IMPRESSION: 1. Gallbladder is contracted with thickened wall 2. Spleen is mildly enlarged Security Business Analyst: [facility] Transcribe Date/Time: Mar 27 2025 9:55A Dictated by : ERICA LOPEZ DO This examination was interpreted and the report reviewed and electronically signed by: ERICA LOPEZ DO on Mar 27 2025 10:15AM EST [id number] Normal [facility] US ABD SPLEEN - NBon 025 * * *Final Report* * * DATE OF EXAM: Mar 27 2025 7:40AM WRU 1232 - US ABD SPLEEN -NB / PROCEDURE REASON: multiple diagnoses * * * * Physician Interpretation * * * * EXAMINATION: RIGHT UPPER QUADRANT ULTRASOUND /ULTRASOUND SPLEEN HISTORY: Nausea RUQ abdominal pain TECHNIQUE: Sonography of the right upper quadrant was performed. Images were obtained and stored in a permanent archive. MQ: URUQ_1 COMPARISON: CT chest 03/11/2025 RESULT: * Pancreas: Not well visualized Liver: Echogenicity: Homogeneous Surface contour: Smooth * Lesions: Simple cyst anteriorly in the LEFT lobe of the liver. It measures 1.8 x 0.7 x 1.2 cm Biliary: No intrahepatic bile duct dilatation * CBD: Not well seen Gallbladder: * -Gallbladder is contracted with some thickening of the wall. Right Kidney: Grossly unremarkable Ascites: No ascites is seen Spleen: The spleen measures 12.2 cm in length. Main portal vein: Unremarkable DIVISION OF RADIOLOGY Provider, Candido Silva Jarrett - 03/27/2025 * * *Final Report* * * DATE OF EXAM: Mar 27 2025 7:40AM [facility]U 1232 - US ABD SPLEEN -NB / PROCEDURE REASON: multiple diagnoses * * * * Physician Interpretation * * * * EXAMINATION: RIGHT UPPER QUADRANT ULTRASOUND /ULTRASOUND SPLEEN HISTORY: Nausea RUQ abdominal pain TECHNIQUE: Sonography of the right upper quadrant was performed. Images were obtained and stored in a permanent archive. MQ: URUQ_1 COMPARISON: CT chest 03/11/2025 RESULT: * Pancreas: Not well visualized Liver: Echogenicity: Homogeneous Surface contour: Smooth * Lesions: Simple cyst anteriorly in the LEFT lobe of the liver. It measures 1.8 x 0.7 x 1.2 cm Biliary: No intrahepatic bile duct dilatation * CBD: Not well seen Gallbladder: * -Gallbladder is contracted with some thickening of the wall. Right Kidney: Grossly unremarkable Ascites: No ascites is seen Spleen: The spleen measures 12.2 cm in length. Main portal vein: Unremarkable IMPRESSION IMPRESSION: 1. Gallbladder is contracted with thickened wall 2. Spleen is mildly enlarged Security Business Analyst: [facility] Transcribe Date/Time: Mar 27 2025 9:55A Dictated by : ERICA LOPEZ DO This examination was interpreted and the report reviewed and electronically signed by: ERICA LOPEZ DO on Mar 27 2025 10:15AM [facility] US ABD SPLEEN -NBon 03-27-20 US ABD SPLEEN -NB * * *Final Report* * * DATE OF EXAM: Mar 27 2025 7:40AM U 1232 - US ABD SPLEEN -NB / PROCEDURE REASON: multiple diagnoses * * * * Physician Interpretation * * * * EXAMINATION: RIGHT UPPER QUADRANT ULTRASOUND /ULTRASOUND SPLEEN HISTORY: Nausea RUQ abdominal pain TECHNIQUE: Sonography of the right upper quadrant was performed. Images were obtained and stored in a permanent archive. MQ: URUQ_1 COMPARISON: CT chest 03/11/2025 RESULT: * Pancreas: Not well visualized Liver: Echogenicity: Homogeneous Surface contour: Smooth * Lesions: Simple cyst anteriorly in the LEFT lobe of the liver. It measures 1.8 x 0.7 x 1.2 cm Biliary: No intrahepatic bile duct dilatation * CBD: Not well seen Gallbladder: * -Gallbladder is contracted with some thickening of the wall. Right Kidney: Grossly unremarkable Ascites: No ascites is seen Spleen: The spleen measures 12.2 cm in length. Main portal vein: Unremarkable IMPRESSION: 1. Gallbladder is contracted with thickened wall 2. Spleen is mildly enlarged Security Business Analyst: [facility] Transcribe Date/Time: Mar 27 2025 9:55A Dictated by : ERICA LOPEZ DO This examination was interpreted and the report reviewed and electronically signed by: ERICA LOPEZ DO on Mar 27 2025 10:15AM EST [id number] Normal [facility] US Abdomen RUQon 03-27-2025 * * *Final Report* * * DATE OF EXAM: Mar 27 2025 7:40AM [facility] 1032 - US ABD RIGHT UPPER QUADRANT / PROCEDURE REASON: multiple diagnoses * * * * Physician Interpretation * * * * EXAMINATION: RIGHT UPPER QUADRANT ULTRASOUND /ULTRASOUND SPLEEN HISTORY: Nausea RUQ abdominal pain TECHNIQUE: Sonography of the right upper quadrant was performed. Images were obtained and stored in a permanent archive. MQ: URUQ_1 COMPARISON: CT chest 03/11/2025 RESULT: * Pancreas: Not well visualized Liver: Echogenicity: Homogeneous Surface contour: Smooth * Lesions: Simple cyst anteriorly in the LEFT lobe of the liver. It measures 1.8 x 0.7 x 1.2 cm Biliary: No intrahepatic bile duct dilatation * CBD: Not well seen Gallbladder: * -Gallbladder is contracted with some thickening of the wall. Right Kidney: Grossly unremarkable Ascites: No ascites is seen Spleen: The spleen measures 12.2 cm in length. Main portal vein: Unremarkable DIVISION OF RADIOLOGY Provider, [facility] - 03/27/2025 * * *Final Report* * * DATE OF EXAM: Mar 27 2025 7:40AM [facility]U 1032 - US ABD RIGHT UPPER QUADRANT / PROCEDURE REASON: multiple diagnoses * * * * Physician Interpretation * * * * EXAMINATION: RIGHT UPPER QUADRANT ULTRASOUND /ULTRASOUND SPLEEN HISTORY: Nausea RUQ abdominal pain TECHNIQUE: Sonography of the right upper quadrant was performed. Images were obtained and stored in a permanent archive. MQ: URUQ_1 COMPARISON: CT chest 03/11/2025 RESULT: * Pancreas: Not well visualized Liver: Echogenicity: Homogeneous Surface contour: Smooth * Lesions: Simple cyst anteriorly in the LEFT lobe of the liver. It measures 1.8 x 0.7 x 1.2 cm Biliary: No intrahepatic bile duct dilatation * CBD: Not well seen Gallbladder: * -Gallbladder is contracted with some thickening of the wall. Right Kidney: Grossly unremarkable Ascites: No ascites is seen Spleen: The spleen measures 12.2 cm in length. Main portal vein: Unremarkable IMPRESSION IMPRESSION: 1. Gallbladder is contracted with thickened wall 2. Spleen is mildly enlarged Security Business Analyst: [facility] Transcribe Date/Time: Mar 27 2025 9:55A Dictated by : ERICA LPOEZ DO This examination was interpreted and the report reviewed and electronically signed by: ERICA LOPEZ DO on Mar 27 2025 10:15AM EST [facility] CNOVon 03-26-2025 CNOV Office Visit (PULMWS ) -- SHARANSHARONDA HERNANDEZ ([id number]) 1955 [address] [facility] Date Time Provider Department 03/26/25 9:30 AM GISSELLE PHELAN PULMWS During your visit today, we recorded the following information about you: Pulse Respiration Blood pressure Weight 81/minute 15/minute 120/74 73.9 kg Gisselle Phelan, P[employer]ER [employer].DISASTER RECOVERY MANAGER 03/26/2025 10:12 AM Signed Pulmonary Medicine Patients name: Sharonda Flores PCP: Tima Tello MD CC: follow-up HPI: Sharonda Flores is a 69 year old male former 37 pack year smoker, quitting in 2010 with PMH significant for CAD s/p stents, s/p CABG 06/2024, PAD, psoriasis, pulmonary nodules, adenocarcinoma of lung s/p RUL lobectomy 01/2024. No chemotherapy or radiation, follows with oncology. [facility] 08/2024 with stable symptoms. He presents today for follow-up. Not currently on inhaled therapy. Since his last visit, he reports symptoms remain stable. He continues to have soreness and a firecracker sensation in his ribs if he over exerts himself that has overall improved since his surgery. Reports exertional dyspnea but is unchanged. He had surveillance chest CT on 03/11 with resolution of previous RLL tree-in-bud opacities. No new nodules noted. Continues to follow with cardiology. Today, he denies coughing, wheezing, chest tightness or pain. No recent hospitalizations or ED visits or upper respiratory infections. PAST MEDICAL HISTORY Diagnosis Date Abdominal aortic aneurysm (AAA) without rupture 3 x 3.1 cm 05/2021, repeat 1 year. Benign neoplasm of colon Coronary artery disease involving chilkoot coronary artery of chilkoot heart without angina pectoris Dr. Tineo Essential hypertension Heart attack (HCC) 2011 s/p stents History of tobacco use HLD (hyperlipidemia) Multiple lung nodules on CT 11/09/2023 PET scan ordered PAD (peripheral artery disease) 04/04/2024 Mild to moderate disease LLE on LINH Primary lung adenocarcinoma, right (HCC) RUL,s/p 02/09/24 flexible bronchoscopy, right VATS, right upper lobe wedge resection, cryo nerve block, mediastinal lymph node dissection Psoriasis [facility] S/P lobectomy of lung S/P triple vessel bypass 07/25/2024 Thrombocytopenia Tinnitus of both ears Allergies: Penicillins Hives Medication List Accurate as of March 25, 2025 3:19 PM. If you have any questions, ask your nurse or doctor. CONTINUE taking these medications Aspirin 81 mg Tab atorvastatin 80 mg tablet Commonly known as: LIPITOR Take 1 tablet by mouth daily at bedtime. For cholesterol. clopidogrel 75 mg tablet Commonly known as: PLAVIX COSENTYX (2 SYRINGES) 150 mg/mL injection Generic drug: secukinumab docusate sodium 100 mg capsule Commonly known as: COLACE Take 1 capsule by mouth two times a day as needed for constipation. ezetimibe 10 mg tablet Commonly known as: ZETIA isosorbide mononitrate ER 30 mg 24 hr tablet Commonly known as: IMDUR methocarbamol 1,000 mg tablet Commonly known as: TANLOR peg 3350-Electrolytes 236-22.74-6.74 -5.86 gram suspension Commonly known as: GOLYTELY Refer to printed prep instructions from your provider. polyethylene glycol 3350 17 gram/dose powder Commonly known as: MIRALAX Take 17 g by mouth two times a day. Dissolve dose in 4 - 8 ounces of liquid and take as directed. DATA: I personally reviewed and analyzed all labs, radiographs and available pulmonary function testing PFT: 11/2023 Spirometry did not show obstruction. Lung volumes not valid. The diffusing capacity is normal. CT Chest: 03/11/25 IMPRESSION: 1. Resolution of previously described clustered nodules in the right lower lobe. No new nodules are visualized. 2. No thoracic lymphadenopathy Security Business Analyst: [facility] Transcribe Date/Time: Mar 18 2025 2:48P Dictated by : JOANNA LYONS MD This examination was interpreted and the report reviewed and electronically signed by: JOANNA LYONS MD on Mar 18 2025 2:57PM EST Comparison: CT chest 09/06/2024 RESULT: Limitations: None. Lines, tubes, and devices: None. Lung parenchyma and airways: Postoperative changes from a right upper lobectomy. No consolidation. Resolution of previously described clustered nodules in the right lower lobe. No new suspicious pulmonary nodule. The central airways are patent. Pleural space: No pleural effusion. No pleural thickening. Lower neck, lymph nodes, and mediastinum: The imaged thyroid gland is normal. No lymphadenopathy in the supraclavicular, axillary, mediastinal, or hilar regions. Review of Systems Constitutional: Negative for activity change, appetite change and unexpected weight change. HENT: Negative for congestion. Respiratory: Positive for shortness of breath. Negative for cough, chest tightness and wheezing. Cardiovascular: Negative for chest pain, palpitations and leg swelling. Musculo (more content not included)... Normal [facility] CNOVon 03-21-2025 CNOV Office Visit (GENSWS ) -- SHARONDA FLORES ([id number]) 1955 [facility] Date Time Provider Department 03/21/25 9:00 AM SARAY MARINELLI GENSWS During your visit today, we recorded the following information about you: Pulse Respiration Blood pressure Weight 66/minute 14/minute 151/72 74.2 kg Saray Marinelli APRN.CNP 03/21/2025 9:26 AM Signed HISTORY AND PHYSICAL Sharonda Flores : 1955 REFERRING PHYSICIAN: Tima Tello [address] [facility] [id number] CHIEF COMPLAINT: Patient presents with: Rectal Problem: blood in stool HPI: Sharonda is a 69 year old male referred for endoscopy. Sharonda notes constipation AND melena. Sharonda notes abdominal pain. -relieved with bowel movement Sharonda denies diarrhea. Sharonda notes constipation. -chronic, happens one time a month -uses castor oil which causes black stools -no fiber supplements -tried miraLAX once with no relief Sharonda notes melena. -most recent BM described as black and watery hSaronda denies bright red blood per rectum. Sharonda notes occasional hemorrhoids. Sharonda denies family history of colon issues. Sharonda notes heartburn. -if eating too late a night Sharonda denies dysphagia. Sharonda denies a history of ulcers/ peptic ulcer disease. Sharonda notes a lot of nausea after eating Sharonda notes a lot of chronic RUQ pain that has been present since his CABG last year. Hx of CABG (06/2024), [place] s/p stents (2011), HLD, HTN AND AAA- follow with cardiology On plavix He CP, SOB, dizziness, palpitations, syncope, edema, recent hospitalizations Hx of RUL wedge 01/2024 d/t lung cancer. No chemo or radiation. Sharonda has undergone prior endoscopy. Last colonoscopy was 07/[address] Ariza at [facility]. Sedation: Midazolam 5 mg IV, Fentanyl 100 micrograms IV Impression: - Diverticulosis in the sigmoid colon. - Submucosal nodule in the recto-sigmoid colon. Biopsied. - The examination was otherwise normal on direct and retroflexion views. CONVERTED FINAL DIAGNOSIS Colon at 20 cm, biopsy - Hyperplastic polyp. TPP/lk 08/04/2021 Current Outpatient Medications Medication Sig secukinumab (COSENTYX, 2 SYRINGES,) 150 mg/mL injection Inject 300 mg subcutaneously one time a week. docusate sodium (COLACE) 100 mg capsule Take 1 capsule by mouth two times a day as needed for constipation. ezetimibe (ZETIA) 10 mg tablet Take 10 mg by mouth once daily. isosorbide mononitrate ER (IMDUR) 30 mg 24 hr tablet Take 30 mg by mouth once daily. methocarbamol 1,000 mg tablet Take 1,000 mg by mouth four times daily. clopidogrel (PLAVIX) 75 mg tablet Take 75 mg by mouth. atorvastatin (LIPITOR) 80 mg tablet Take 1 tablet by mouth daily at bedtime. For cholesterol. Aspirin 81 mg Tab Take 81 mg by mouth once daily. peg 3350-Electrolytes (GOLYTELY) 236-22.74-6.74 -5.86 gram suspension Refer to printed prep instructions from your provider. polyethylene glycol 3350 (MIRALAX) 17 gram/dose powder Take 17 g by mouth two times a day. Dissolve dose in 4 - 8 ounces of liquid and take as directed. No current facility-administered medications for this visit. ALLERGIES: Penicillins PAST MEDICAL HISTORY Diagnosis Date Abdominal aortic aneurysm (AAA) without rupture 3 x 3.1 cm 05/2021, repeat 1 year. Benign neoplasm of colon Coronary artery disease involving chilkoot coronary artery of chilkoot heart without angina pectoris Dr. Tineo Essential hypertension Heart attack (HCC) 2011 s/p stents History of tobacco use HLD (hyperlipidemia) Multiple lung nodules on CT 11/09/2023 PET scan ordered PAD (peripheral artery disease) 04/04/2024 Mild to moderate disease LLE on LINH Primary lung adenocarcinoma, right (HCC) RUL,s/p 02/09/24 flexible bronchoscopy, right VATS, right upper lobe wedge resection, cryo nerve block, mediastinal lymph node dissection Psoriasis [facility] S/P lobectomy of lung S/P triple vessel bypass 07/25/2024 Thrombocytopenia Tinnitus of both ears PAST SURGICAL HISTORY Procedure Laterality Date COLONOSCOPY FLX DX W/COLLJ SPEC WHEN PFRMD 10/08/2008 Colonoscopy COLONOSCOPY FLX DX W/COLLJ SPEC WHEN PFRMD 08/03/2021 repeat in 10 years EXTRACTION, ERUPTED TOOTH OR EXPOSED ROOT (ELEVATION AND/OR FORCEPS REMOVAL) wisdom HEART CATHETERIZATION 2012 stent x 4 HEART SURGERY HX LUNG SURGERY HX Right 02/09/2024 right VATS Right Upper lobe Lung resection PAST SURGICAL HISTORY OF age 6 appendectomy, no rupture PAST SURGICAL HISTORY OF Right 09/2021 cyst removal from chest wall PAST SURGICAL HISTORY OF 07/25/2024 Triple Bypass PT ED HEART AND VASCULAR 2012 TONSILLECTOMY HX TONSILLECTOMY PRIMARY/SECONDARY tonsillectomy FAMILY HISTORY Problem Relation Age of Onset Breast Cancer Mother Heart Father details uncertain; ? h/o rheumatic fever Stroke Father detai (more content not included)... Normal [facility] CBC W Auto Differential pane l (Bld)on 03-19-2025 Basophils (Bld) [#/Vol] 0.04 10*3/uL Normal <0.11 [facility] Comment on above: Order Comment: Speci men Type: BLOOD SPECIMENOrdering Facility: [facility] Address: [address] [place] [address] Performed By: #### 5 7021-8 ####[facility] LABCLIA [id number] [facility] [place] [address] [place] Basophils/100 WBC (Bld) 0.8 % Normal [facility] Comment on above: Order Comment: Speci men Type: BLOOD SPECIMENOrdering Facility: [facility] Address: [address] [place] [address] Performed By: #### 5 7021-8 ####[facility] LABCLIA [id number] [facility] [place] [address] [place] Differential cell count method Nom (Bld) Auto Normal [facility] Comment on above: Order Comment: Speci men Type: BLOOD SPECIMENOrdering Facility: [facility] Address: [address] [place] [address] Performed By: #### 5 7021-8 ####[facility] LABCLIA [id number] [place] [address] [place] Eosinophils (Bld) [#/Vol] 0.10 10*3/uL Normal <0.46 [facility] Comment on above: Order Comment: Speci men Type: BLOOD SPECIMENOrdering Facility: [facility] Address: [address] [place] [address] Performed By: #### 5 7021-8 ####[facility] LABCLIA [id number] [place] [address] [place] Eosinophils/100 WBC (Bld) 2.1 % Normal [facility] Comment on above: Order Comment: Speci men Type: BLOOD SPECIMENOrdering Facility: [facility] Address: [address] [place] [address] Performed By: #### 5 7021-8 ####[facility] LABCLIA [id number] [place] [address] [place] Erythrocyte distribution width (RBC) [Ratio] 12.7 % Normal 11.5-15.0 [facility] Comment on above: Order Comment: Speci men Type: BLOOD SPECIMENOrdering Facility: [facility] Address: [address] [place] [address] Performed By: #### 5 7021-8 ####[facility] LABCLIA [id number] [place] [address] [place] Hematocrit (Bld) [Volume fraction] 44.4 % Normal 39.0-51.0 [facility] Comment on above: Order Comment: Speci men Type: BLOOD SPECIMENOrdering Facility: [facility] Address: [address] [place] [address] Performed By: #### 5 7021-8 ####[facility] LABCLIA [id number] [place] [address] [place] Hemoglobin (Bld) [Mass/Vol] 14.9 g/dL Normal 13.0-17.0 [facility] Comment on above: Order Comment: Speci men Type: BLOOD SPECIMENOrdering Facility: [facility] Address: [address] [place] [address] Performed By: #### 5 7021-8 ####[facility] LABCLIA [id number] [place] [address] [place] Immature granulocytes (Bld) [#/Vol] 10*3/uL Normal <0.10 [facility] Comment on above: Order Comment: Speci men Type: BLOOD SPECIMENOrdering Facility: [facility] Address: [address] [place] [address] Performed By: #### 5 7021-8 ####[facility] LABCLIA [id number] [place] [address] [place] Immature granulocytes/100 WBC (Bld) 0.4 % Normal [facility] Comment on above: Order Comment: Speci men Type: BLOOD SPECIMENOrdering Facility: [facility] Address: [address] [place] [address] Performed By: #### 5 7021-8 ####[facility] LABCLIA [id number] [place] [address] [place] Lymphocytes (Bld) [#/Vol] 0.90 10*3/uL Low 1.00-4.00 [facility] Comment on above: Order Comment: Speci men Type: BLOOD SPECIMENOrdering Facility: [facility] Address: [address] [place] [address] Performed By: #### 5 7021-8 ####[facility] LABCLIA [id number] [place] [address] [place] Lymphocytes/100 WBC (Bld) 18.6 % Normal [facility] Comment on above: Order Comment: Speci men Type: BLOOD SPECIMENOrdering Facility: [facility] Address: [address] [place] [address] Performed By: #### 5 7021-8 ####[facility] LABCLIA [id number] [place] [address] [place] MCH (RBC) [Entitic mass] 28.9 pg Normal 26.0-34.0 [facility] Comment on above: Order Comment: Speci men Type: BLOOD SPECIMENOrdering Facility: [facility] Address: [address] [place] [address] Performed By: #### 5 7021-8 ####[facility] LABCLIA [id number] [place] [address] [place] MCHC (RBC) [Mass/Vol] 33.6 g/dL Normal 30.5-36.0 [facility] Comment on above: Order Comment: Speci men Type: BLOOD SPECIMENOrdering Facility: [facility] Address: [address] [place] [address] Performed By: #### 5 7021-8 ####[facility] LABCLIA [id number] [place] [address] [place] MCV (RBC) [Entitic vol] 86.2 fL Normal 80.0-100.0 [facility] Comment on above: Order Comment: Speci men Type: BLOOD SPECIMENOrdering Facility: [facility] Address: [address] [place] [address] Performed By: #### 5 7021-8 ####[facility] LABCLIA [id number] [place] [address] [place] Monocytes (Bld) [#/Vol] 0.45 10*3/uL Normal <0.87 [facility] Comment on above: Order Comment: Speci men Type: BLOOD SPECIMENOrdering Facility: [facility] Address: [address] [place] [address] Performed By: #### 5 7021-8 ####[facility] LABCLIA [id number] [place] [address] [place] Monocytes/100 WBC (Bld) 9.3 % Normal [facility] Comment on above: Order Comment: Speci men Type: BLOOD SPECIMENOrdering Facility: [facility] Address: [address] [place] [address] Performed By: #### 5 7021-8 ####[facility] LABCLIA [id number] [place] [id number] [place] Neutrophils (Bld) [#/Vol] 3.34 10*3/uL Normal 1.45-7.50 [facility] Comment on above: Order Comment: Speci men Type: BLOOD SPECIMENOrdering Facility: [facility] Address: [address] [place] [address] Performed By: #### 5 7021-8 ####[facility] LABCLIA [id number] [place] [address] [place] Neutrophils/100 WBC (Bld) 68.8 % Normal [facility] Comment on above: Order Comment: Speci men Type: BLOOD SPECIMENOrdering Facility: [facility] Address: [address] [place] [address] Performed By: #### 5 7021-8 ####[facility] LABCLIA [id number] [place] [address] [place] Nucleated RBC (Bld) [#/Vol] 10*3/uL Normal <0.01 [facility] Comment on above: Order Comment: Speci men Type: BLOOD SPECIMENOrdering Facility: [facility] Address: [address] [place] [address] Performed By: #### 5 7021-8 ####[facility] LABCLIA [id number] [place] [address] [place] Nucleated RBC/100 WBC (Bld) [Ratio] 0.0 /[address] [facility] Comment on above: Order Comment: Speci men Type: BLOOD SPECIMENOrdering Facility: [facility] Address: [address] [place] [address] Performed By: #### 5 7021-8 ####[facility] LABCLIA [id number] [place] [address] [place] Platelet mean volume (Bld) [Entitic vol] 12.2 fL Normal 9.0-12.7 [facility] Comment on above: Order Comment: Speci men Type: BLOOD SPECIMENOrdering Facility: [facility] Address: [address] [place] [address] Performed By: #### 5 7021-8 ####[facility] LABCLIA [id number] [place] [address] [place] Platelets (Bld) [#/Vol] 135 10*3/uL Low 150-400 [facility] Comment on above: Order Comment: Speci men Type: BLOOD SPECIMENOrdering Facility: [facility] Address: [address] [place] [address] Performed By: #### 5 7021-8 ####[facility] LABCLIA [id number] [place] [address] [place] RBC (Bld) [#/Vol] 5.15 10*6/uL Normal 4.20-6.00 [facility] Comment on above: Order Comment: Speci men Type: BLOOD SPECIMENOrdering Facility: [facility] Address: [address] [place] [address] Performed By: #### 5 7021-8 ####[facility] LABIA [id number] [place] [address] [place] WBC (Bld) [#/Vol] 4.85 10*3/uL Normal 3.70-11.00 [facility] Comment on above: Order Comment: Speci men Type: BLOOD SPECIMENOrdering Facility: [facility] Address: [address] [place] [address] Performed By: #### 5 7021-8 ####[facility] LABIA [id number] [place] [address] [place] CNOVon 03-19-2025 CNOV Office Visit (FAMPWS ) -- SHARONDA FLORES ([id number]) 1955 M [facility] Date Time Provider Department 03/19/25 7:20 AM TIMA TELLOPWS During your visit today, we recorded the following information about you: Pulse Blood pressure Weight Height 73/minute 116/68 72 kg 1.69 m Tima Tello MD 03/19/2025 8:06 AM Signed Chief Complaint Patient presents with: Constipation Rectal Problem Recording using ambient AI software for draft documentation of the visit was discussed with the patient/authorized sales representative electric service; all questions welcomed and answered. Patient/authorized sales representative electric service agreed to proceed HPI Sharonda Flores is a 69 year old male who presents here today for Above Complaints. Chronic Constipation and Black Stools: - Chronic constipation x1 year, with episodes occurring approximately once a month. - Episodes last about two days, during which Sharonda experiences significant straining. - Reports going up to three weeks without a bowel movement during severe episodes. - Uses castor oil to induce bowel movements, resulting in dark, black stools. - Recent bowel movements described as watery and dark. - Denies hematochezia, nausea, emesis, or pain with bowel movements. - Denies SOB, lightheadedness, or dizziness. - Nocturnal regurgitation if eating past a certain time. - No recent weight loss or night sweats. - Tried Miralax once with no relief; denies using fiber supplements. Lung Cancer: - Followed by Dr. Dumont. - Recent CT chest showed no signs of lung cancer; next follow-up in 6 months. CAD: - Underwent CABG last year. - Reports that pain medication post-surgery contributed to constipation. Past medical history, appointments, medications, allergies reviewed. Previous Medical History PAST MEDICAL HISTORY Diagnosis Date Abdominal aortic aneurysm (AAA) without rupture 3 x 3.1 cm 05/2021, repeat 1 year. Benign neoplasm of colon Coronary artery disease involving chilkoot coronary artery of chilkoot heart without angina pectoris Dr. Tineo Essential hypertension Heart attack (HCC) 2011 s/p stents History of tobacco use HLD (hyperlipidemia) Multiple lung nodules on CT 11/09/2023 PET scan ordered PAD (peripheral artery disease) 04/04/2024 Mild to moderate disease LLE on LINH Primary lung adenocarcinoma, right (HCC) RUL,s/p 02/09/24 flexible bronchoscopy, right VATS, right upper lobe wedge resection, cryo nerve block, mediastinal lymph node dissection Psoriasis [facility] S/P lobectomy of lung S/P triple vessel bypass 07/25/2024 Thrombocytopenia Tinnitus of both ears Previous Surgical History PAST SURGICAL HISTORY Procedure Laterality Date COLONOSCOPY FLX DX W/COLLJ SPEC WHEN PFRMD 10/08/2008 Colonoscopy COLONOSCOPY FLX DX W/COLLJ SPEC WHEN PFRMD 08/03/2021 repeat in 10 years EXTRACTION, ERUPTED TOOTH OR EXPOSED ROOT (ELEVATION AND/OR FORCEPS REMOVAL) wisdom HEART CATHETERIZATION 2012 stent x 4 HEART SURGERY HX LUNG SURGERY HX Right 02/09/2024 right VATS Right Upper lobe Lung resection PAST SURGICAL HISTORY OF age 6 appendectomy, no rupture PAST SURGICAL HISTORY OF Right 09/2021 cyst removal from chest wall PAST SURGICAL HISTORY OF 07/25/2024 Triple Bypass PT [facility] 2012 TONSILLECTOMY HX TONSILLECTOMY PRIMARY/SECONDARY tonsillectomy Family History FAMILY HISTORY Problem Relation Age of Onset Breast Cancer Mother Heart Father details uncertain; ? h/o rheumatic fever Stroke Father details uncertain No Known Problems Brother No Known Problems Daughter No Known Problems Daughter No Known Problems Son No Known Problems Son No Known Problems Maternal Grandmother No Known Problems Maternal Grandfather No Known Problems Paternal Grandmother No Known Problems Paternal Grandfather Diabetes Other none Colon Cancer Other none Prostate Cancer Other none Anesthesia Problems No Family History Patient Allergies ALLERGIES Allergen Reactions Penicillins Hives Current Medications Current Outpatient Medications on File Prior to Visit Medication Sig secukinumab (COSENTYX, 2 SYRINGES,) 150 mg/mL injection Inject 300 mg subcutaneously one time a week. iv contrast (will be provided with radiology test) CT Chest W -Inject, intravenously, once for 1 dose.No IV access, insert saline lock prior to the beginning of sedation, infusion, injection of imaging exam. Discontinue saline lock post exam. If Pt. has a central line or IVAD, may access for administration according to line specific nursing protocol. Once exam is complete flush line and de-access according to line specific nursing protocol in theCT contrast administration guidelines link. ezetimibe (ZETIA) 10 mg tablet Take 10 mg by mouth once daily. isosorbide mononitrate ER (IMDUR) 30 mg 24 hr tablet Take 30 mg (more content not included)... Normal [facility] Comprehensive metabolic 2000 panelon 03-19-2025 Albumin [Mass/Vol] 4.8 g/dL Normal 3.9-4.9 [facility] Comment on above: Order Comment: Speci men Type: BLOOD SPECIMENOrdering Facility: [facility] Address: [address] [place] [address] [place] [address] Performed By: #### 2 4323-8 ####[facility] LABCLIA [id number] [facility] [place] [id number] [place] ALP [Catalytic activity/Vol] 82 U/L Normal 38-113 [facility] Comment on above: Order Comment: Speci men Type: BLOOD SPECIMENOrdering Facility: [facility] Address: [address] [place] [address] Performed By: #### 2 4323-8 ####[facility] LABCLIA [id number] [facility] [place] [id number] [place] ALT [Catalytic activity/Vol] 13 U/L Normal 10-54 [facility] Comment on above: Order Comment: Speci men Type: BLOOD SPECIMENOrdering Facility: [facility] Address: [address] [place] [address] Performed By: #### 2 4323-8 ####[facility] LABCLIA [id number] [place] [id number] [place] Anion gap [Moles/Vol] 11 mmol/L Normal 8-15 [facility] Comment on above: Order Comment: Speci men Type: BLOOD SPECIMENOrdering Facility: [facility] Address: [address] [place] [address] Performed By: #### 2 4323-8 ####[facility] LABCLIA [id number] [place] [id number] [place] AST [Catalytic activity/Vol] 20 U/L Normal 14-40 [facility] Comment on above: Order Comment: Speci men Type: BLOOD SPECIMENOrdering Facility: [facility] Address: [address] [place], [place] [address] Performed By: #### 2 4323-8 ####[facility] LABCLIA [id number] [place] [id number] [place] Bilirubin [Mass/Vol] 0.9 mg/dL Normal 0.2-1.3 [facility] Comment on above: Order Comment: Speci men Type: BLOOD SPECIMENOrdering Facility: [facility] Address: [address] [place] [id number] Performed By: #### 2 4323-8 ####[facility] LABCLIA [id number] [facility] [address] [place] [address] [place] Calcium [Mass/Vol] 9.2 mg/dL Normal 8.5-10.2 [facility] Comment on above: Order Comment: Speci men Type: BLOOD SPECIMENOrdering Facility: [facility] Address: [address] [place], [place] [address] Performed By: #### 2 4323-8 ####[facility] LABCLIA [id number] [facility] [address] [place] [address] [place] Chloride [Moles/Vol] 103 mmol/L Normal 98-107 [facility] Comment on above: Order Comment: Speci men Type: BLOOD SPECIMENOrdering Facility: [facility] Address: [address] [place], [place] [id number] Performed By: #### 2 4323-8 ####[facility] LABCLIA [id number] [address] [place] [address] [place] CO2 [Moles/Vol] 26 mmol/L Normal 22-30 [facility] Comment on above: Order Comment: Speci men Type: BLOOD SPECIMENOrdering Facility: [facility] Address: [address] [place], [place] [address] Performed By: #### 2 4323-8 ####[facility] LABCLIA [id number] [facility] [address] [place] [address] [place] Creatinine [Mass/Vol] 1.01 mg/dL Normal 0.73-1.22 [facility] Comment on above: Order Comment: Speci men Type: BLOOD SPECIMENOrdering Facility: [facility] Address: [address] [place], [place] [address] Performed By: #### 2 4323-8 ####[facility] LABCLIA [id number] [place] [id number] [place] eGFRcr SerPlBld CKD-EPI 2020 81 mL/min/1.73m??? Normal >=60 [facility] Comment on above: Order Comment: Vernon sterling Type: BLOOD SPECIMENOrdering Facility: [facility] Address: [address] [place] [address] Result Comment: Piedad mated Glomerular Filtration Rate (eGFR) is calculated using the 2020 CKD-EPI creatinine equation. This equation utilizes serum creatinine, sex, and age as parameters. The creatinine assay has traceable calibration to isotope dilution-mass spectrometry. Refer to KDIGO guidelines for clinical interpretation. In patients with unstable renal function, e.g. those with acute kidney injury, the eGFR may not accurately reflect actual GFR. Performed By: #### 2 4323-8 ####[facility] LABIA [id number] [place] [address] [place] Glucose [Mass/Vol] 101 mg/dL High 74-99 [facility] Comment on above: Order Comment: Vernon sterling Type: BLOOD SPECIMENOrdering Facility: [facility] Address: [address] [place] [address] Result Comment: The [place] Diabetes Association (ADA) provides guidance for cutoff values for fasting glucose and random glucose. The ADA defines fasting as no caloric intake for at least 8 hours. Fasting plasma glucose results between 100 to 125 mg/dL indicate increased risk for diabetes (prediabetes). Fasting plasma glucose results greater than or equal to 126 mg/dL meet the criteria for diagnosis of diabetes. In the absence of unequivocal hyperglycemia, results should be confirmed by repeat testing. In a patient with classic symptoms of hyperglycemia or hyperglycemic crisis, random plasma glucose results greater than or equal to 200 mg/dL meet the criteria for diagnosis of diabetes. Reference: Standards of Medical Care in Diabetes 2016, [place] [employer] Association. Diabetes Care. 2016.39(Suppl 1). Performed By: #### 2 4323-8 ####[facility] LABCLIA [id number] [place] [id number] [place] Potassium [Moles/Vol] 3.8 mmol/L Normal 3.7-5.1 [facility] Comment on above: Order Comment: Speci men Type: BLOOD SPECIMENOrdering Facility: [facility] Address: [address] [place] [address] Performed By: #### 2 4323-8 ####[facility] LABCLIA [id number] [facility] [place] [id number] [place] Protein [Mass/Vol] 7.5 g/dL Normal 6.3-8.0 [facility] Comment on above: Order Comment: Speci men Type: BLOOD SPECIMENOrdering Facility: [facility] Address: [address] [place] [address] Performed By: #### 2 4323-8 ####[facility] LABCLIA [id number] [place] [address] [place] Sodium [Moles/Vol] 140 mmol/L Normal 136-144 [facility] Comment on above: Order Comment: Speci men Type: BLOOD SPECIMENOrdering Facility: [facility] Address: [address] [place] [address] Performed By: #### 2 4323-8 ####[facility] LABCLIA [id number] [address], [place] [address] [place] Urea nitrogen [Mass/Vol] 16 mg/dL Normal 9-24 [facility] Comment on above: Order Comment: Speci men Type: BLOOD SPECIMENOrdering Facility: [facility] Address: [address] [place] [address] Performed By: #### 2 4323-8 ####[facility] LABCLIA [id number] [place] [id number] [place] Hemoccult Stl Ql IAon 2024 Lower GI hemoglobin IA Ql (Stl) Positive Abnormal Negative [facility] Comment on above: Order Comment: Speci men Type: STOOL SPECIMENOrdering Facility: [facility] Address: [address] [place] [place] [id number] Performed By: #### 2 9771-3 ####[facility] LABCLIA [id number] [facility] [place] [id number] [place] CNPGisele 03-18-2025 CNPN Telephone (HEMAWS) -- SHARONDA FLORES ([id number]) 1955 M [facility] Date Time Provider Department 03/18/25 ANALY DUMONT During your visit today, we recorded the following information about you: Analy Dumont DO 03/18/2025 3:40 PM Signed Let him know CT chest showed no sign of lung cancer. Please schedule for serum Cr CT chest with contrast followed by office visit about a week later in about 6 months. DO Lico Varma Kara, LPN 03/18/2025 4:11 PM Signed Pt notified and voices understanding. Please schedule CT chest and serum creatinine in 6 mo followed by OV one week later. CT pended. ANDREW Doe Paul A, DO 03/18/2025 4:32 PM Signed Thank you. Order filed. Rhonda Arroyo 03/19/2025 11:57 AM Signed We dont show these orders yet for ct or labs. Analy Ceballos DO 03/19/2025 12:58 PM Signed Orders for CT are signed under this encounter. They were signed when this was previously sent to me. Danita Avila LPN 03/19/2025 2:45 PM Signed Please schedule CT chest and serum creatinine in 6 mo followed by OV one week later. Rhonda Arroyo 03/19/2025 2:53 PM Signed Spoke w pt and this is scheduled as directed. (Order was linked to an another CT ordered by Lyndsey) Rhonda Storck Allergies As of Date: 03/18/2025 Noted Allergy Reaction PENICILLINS 05/23/2008 4 - Hives Date Reviewed: 03/17/2025 Reviewed by: Hugo Botello MA - Fully Assessed Reason for Visit: Results [95] Primary Visit Diagnosis:Primary lung adenocarcinoma, 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] Order(s):CT CHEST W IVCON [0532505] Order #: [id number] FUTURE iv contrast (will be provided with radiology test)CT Chest W -Inject, intravenously, once for 1 dose.No IV access, insert saline lock prior to the beginning of sedation, infusion, injection of imaging exam. Discontinue saline lock post exam. If Pt. has a central line or IVAD, may access for administration according to line specific nursing protocol. Once exam is complete flush line and de-access according to line specific nursing protocol in theCT contrast administration guidelines link.Disp: 1 eachRfl: 0 Prescriptions as of 03/19/2025 - secukinumab (COSENTYX, 2 SYRINGES,) 150 mg/mL injection Inject 300 mg subcutaneously one time a week. - iv contrast (will be provided with radiology test) CT ABD/PEL -Inject, intravenously, once for 1 dose.No IV access, insert saline lock prior to the beginning of sedation, infusion, injection of imaging exam. Discontinue saline lock post exam. If Pt. has a central line or IVAD, may access for administration according to line specific nursing protocol. Once exam is complete flush line and de-access according to line specific nursing protocol in theCT contrast administration guidelines link. - enteric contrast (will be provided with radiology test) For CT ABD/PEL W IVCON Routine order Administer, As Directed One Time Only, via Oral, Rectal, both Oral and Rectal, Enteric Tube, Stoma or Indwelling Catheter, Enteric Contrast as designated per enteric contrast guidelines - docusate sodium (COLACE) 100 mg capsule Take 1 capsule by mouth two times a day as needed for constipation. - polyethylene glycol 3350 (MIRALAX) 17 gram/dose powder Take 17 g by mouth two times a day. Dissolve dose in 4 - 8 ounces of liquid and take as directed. - iv contrast (will be provided with radiology test) CT Chest W -Inject, intravenously, once for 1 dose.No IV access, insert saline lock prior to the beginning of sedation, infusion, injection of imaging exam. Discontinue saline lock post exam. If Pt. has a central line or IVAD, may access for administration according to line specific nursing protocol. Once exam is complete flush line and de-access according to line specific nursing protocol in theCT contrast administration guidelines link. - ezetimibe (ZETIA) 10 mg tablet Take 10 mg by mouth once daily. - isosorbide mononitrate ER (IMDUR) 30 mg 24 hr tablet Take 30 mg by mouth once daily. - methocarbamol 1,000 mg tablet Take 1,000 mg by mouth four times daily. - clopidogrel (PLAVIX) 75 mg tablet Take 75 mg by mouth. - atorvastatin (LIPITOR) 80 mg tablet Take 1 tablet by mouth daily at bedtime. For cholesterol. - Aspirin 81 mg Tab Take 81 mg by mouth once daily. Problem List As Of Date 03/18/2025 Noted Resolved PERS HX PENICILLIN ALLERGY [Z88.0] 06/03/2008 Class: Chronic TOBACCO USE DISORDER [F17.200] 06/03/2008 SPRAIN SHOULDER/ARM NOS [[id number]] 06/03/2008 JOINT PAIN-ANKLE [M25.579] 06/03/2008 HERPES SIMPLEX NOS [B00.9] 06/03/2008 MIXED HYPERLIPIDEMIA [E78.2] 07/02/2008 SCREENING MAL NEOP-COLON [Z12.11] 10/08/2008 BENIGN NEOPLASM LG BOWEL [D12.6] 10/08/2008 Coronary artery disease involving chilkoot lacey* Essential hypertension [I10] Thrombocytopenia (HCC) [D69.6] Tinnitus of both ears [H93.13] Psoriasis [L4 (more content not included)... Normal [facility] CNOVSPon 03-17-2025 CNOVSP Visit (SP) Office (H EMAWS) -- SHARONDA FLORES ([id number]) 1955 M [facility] Date Time Provider Department 03/17/25 8:30 AM ANALY DUMONT HEMAWS During your visit today, we recorded the following information about you: Temperature Pulse Blood pressure Weight 97.2 degrees 65/minute 143/80 74.8 kg Height 1.69 m Analy Dumont DO 03/17/2025 8:34 AM Signed Patient left without being seen. Analy Dumont DO Allergies As of Date: 03/17/2025 Noted Allergy Reaction PENICILLINS 05/23/2008 4 - Hives Date Reviewed: 03/17/2025 Reviewed by: Hugo Botello MA - Fully Assessed Reason for Visit: Established Patient [175] Primary Visit Diagnosis:Primary lung adenocarcinoma, 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] Prescriptions as of 03/17/2025 - ezetimibe (ZETIA) 10 mg tablet Take 10 mg by mouth once daily. - isosorbide mononitrate ER (IMDUR) 30 mg 24 hr tablet Take 30 mg by mouth once daily. - methocarbamol 1,000 mg tablet Take 1,000 mg by mouth four times daily. - clopidogrel (PLAVIX) 75 mg tablet Take 75 mg by mouth. - atorvastatin (LIPITOR) 80 mg tablet Take 1 tablet by mouth daily at bedtime. For cholesterol. - Aspirin 81 mg Tab Take 81 mg by mouth once daily. Problem List As Of Date 03/17/2025 Noted Resolved PERS HX PENICILLIN ALLERGY [Z88.0] 06/03/2008 Class: Chronic TOBACCO USE DISORDER [F17.200] 06/03/2008 SPRAIN SHOULDER/ARM NOS [[id number]] 06/03/2008 JOINT PAIN-ANKLE [M25.579] 06/03/2008 HERPES SIMPLEX NOS [B00.9] 06/03/2008 MIXED HYPERLIPIDEMIA [E78.2] 07/02/2008 SCREENING MAL NEOP-COLON [Z12.11] 10/08/2008 BENIGN NEOPLASM LG BOWEL [D12.6] 10/08/2008 Coronary artery disease involving chilkoot lacey* Essential hypertension [I10] Thrombocytopenia (HCC) [D69.6] Tinnitus of both ears [H93.13] Psoriasis [L40.9] Abdominal aortic aneurysm (AAA) without rupture*06/08/2021 At risk for sleep apnea [Z91.89] 11/29/20[address] Multiple lung nodules on CT [R91.8] 11/09/2023 Lung nodule [R91.1] 12/15/2023 S/P lobectomy of lung [Z90.2] 02/09/2024 Primary lung adenocarcinoma, right (HCC) [C34.9*03/11/2024 Encounter Status:Closed by ANALY DUMONT on 03/17/[address] [facility] Quantiferon TB-Gold+on 03-14 QFT MITOGEN IVAN > 10.00 Normal . [facility] Comment on above: Order Comment: FAX T O [phone] Performed By: #### L 3400.8000 #### [facility] [address] [place], [address] (595) QFT NIL VALUE 0.03 IU/mL Normal . [facility] Comment on above: Order Comment: FAX T O [phone] Performed By: #### L 3400.8000 #### [facility] [address] [place], [place], [id number] (014) QFT TB GOLD+ Comment Normal . [facility] Comment on above: Order Comment: FAX T O [phone] Result Comment: Jairo tiFERON-TB Gold Plus is a qualitative indirect test for M tuberculosis infection (including disease) and is intended for use in conjunction with risk assessment, radiography, and other medical and diagnostic evaluations. The QuantiFERON-TB Gold Plus result is determined by subtracting the Nil value from either TB antigen (Ag) value. The Mitogen tube serves as a control for the test. Performed By: #### L 3400.8000 #### [facility] [address] [place], [place], [id number] QFT TB POS CRIT Negative Normal Negative [facility] Comment on above: Order Comment: FAX T O [phone] Result Comment: No r esponse to M tuberculosis antigens detected. Infection with M tuberculosis is unlikely, but high risk individuals should be considered for additional testing (ATS/IDSA/CDC Clinical Practice Guidelines, 2017). The reference range is an Antigen minus Nil result of <0.35 IU/mL. The specimen received for QuantiFERON testing was incubated by the ordering institution. Specific procedures outlined in our Directory of Services and in the package insert for the QuantiFERON Gold (In Tube) test must be followed to enable for proper stimulation of cells for the production of interferon gamma. Chemiluminescence immunoassay methodology Performed at: [employer] [id number] Mixer Blender: Curt Taylor PhD, Phone: [phone] Performed By: #### L 3400.8000 #### [facility] [address] [place], [place], [id number] QFT TB1+ AG IVAN 0.02 IU/mL Normal . [facility] Comment on above: Order Comment: FAX T O [phone] Performed By: #### L 3400.8000 #### [facility] [address] [place], [address] QFT TB2+ AG IVAN 0.02 IU/mL Normal . [facility] Comment on above: Order Comment: FAX T O [phone] Performed By: #### L [id number] #### [facility] [address] [place], [address] Qualitative QuantiFERON-TB g old in tube testOrdered By: Jose Valderrama on 03-12-2025 M. tuberculosis tuberculin stim IFN-g Ql (Bld) 0.02 IU/mL . [facility] CT CHEST W IVCONon CT CHEST W IVCON * * *Final Report* * * DATE OF EXAM: Mar 11 2025 9:08AM [facility] 0539 - CT CHEST W IVCON / PROCEDURE REASON: multiple diagnoses * * * * Physician Interpretation * * * * EXAMINATION: CHEST CT WITH CONTRAST CLINICAL HISTORY: Lung cancer Technique: Spiral CT acquisition of the chest from the thoracic inlet to the upper abdomen following IV contrast. MQ: CTCW_6 Contrast: 50 mL Omnipaque [address] Radiation dose: Integrated Dose-length product (DLP) for this visit = 195 mGy*cm CT Dose Reduction Employed: Automated exposure control(AEC) and iterative recon Comparison: CT chest 09/06/2024 RESULT: Limitations: None. Lines, tubes, and devices: None. Lung parenchyma and airways: Postoperative changes from a right upper lobectomy. No consolidation. Resolution of previously described clustered nodules in the right lower lobe. No new suspicious pulmonary nodule. The central airways are patent. Pleural space: No pleural effusion. No pleural thickening. Lower neck, lymph nodes, and mediastinum: The imaged thyroid gland is normal. No lymphadenopathy in the supraclavicular, axillary, mediastinal, or hilar regions. Heart, pericardium, and thoracic vessels: The thoracic aorta and main pulmonary artery are normal in caliber. The cardiac chambers are normal in size. Coronary artery atherosclerotic calcifications are noted, although the study is not optimized for coronary assessment. No pericardial effusion or thickening. Bones and soft tissues: No destructive bone lesion. Chest wall is unremarkable. Upper abdomen: No abnormality in the imaged upper abdomen. Localizer images: No additional findings. IMPRESSION: 1. Resolution of previously described clustered nodules in the right lower lobe. No new nodules are visualized. 2. No thoracic lymphadenopathy Security Business Analyst: [facility] Transcribe Date/Time: Mar 18 2025 2:48P Dictated by : JOANNA LYONS MD This examination was interpreted and the report reviewed and electronically signed by: JOANNA LYONS MD on Mar 18 2025 2:57PM EST [id number] Normal [facility] Creatinine and Glomerular fi ltration rate.predicted panel (S/P/Bld)on 03-11-2025 Creatinine [Mass/Vol] 1.04 mg/dL Normal 0.73-1.22 [facility] Comment on above: Order Comment: Charlesi asher Type: BLOOD SPECIMENOrdering Facility: [facility] Address: [address] [place] [address] Performed By: #### 4 5066-8 ####[facility] [id number] [place] [address] [place] eGFRcr SerPlBld CKD-EPI 2020 78 mL/min/1.73m??? Normal >=60 [facility] Comment on above: Order Comment: [place] sterling Type: BLOOD SPECIMENOrdering Facility: [facility] Address: [address], [place] [address] Result Comment: Piedad mated Glomerular Filtration Rate (eGFR) is calculated using the 2020 CKD-EPI creatinine equation. This equation utilizes serum creatinine, sex, and age as parameters. The creatinine assay has traceable calibration to isotope dilution-mass spectrometry. Refer to KDIGO guidelines for clinical interpretation. In patients with unstable renal function, e.g. those with acute kidney injury, the eGFR may not accurately reflect actual GFR. Performed By: #### 4 5066-8 ####[facility] [id number] OF [facility] 29on 11-13-2024 29 Addended by: BECKY GONZALEZ on: 11/13/2024 02:04 PM Modules accepted: Orders Normal [facility] Office Visiton 11-13-2024 Follow-up visit [id number] Luther Flores 1955 M Date Provider Department Center 11/13/2024 [id number] TINEO SHMG ACH JAIR SHMGCV [address] Ar Family History Problem Relation Age of Onset Heart disease Father No Known Problems Mother Cancer Maternal Grandfather Family Status - Relation Status Age at Father Mother Alive Brother Alive Maternal Grandfather Level of Service:67058 [place] OFFICE/OUTPATIENT ESTABLISHED MOD MDM 30 MIN Reason for Visit and Comments: Annual Exam [83] Normal [facility] Progress Noteon 11-13-2024 Progress Note [facility] - [place] [address] [facility] [address] Dept: [phone] Dept Visit type: Established : 1955 Reason for Visit: Annual Exam Assessment and Plan 1. Coronary artery disease involving chilkoot coronary artery of chilkoot heart without angina pectoris 2. Mixed hyperlipidemia - ECG 12 lead - CLINIC PERFORMED 3. Essential hypertension 4. S/P CABG (coronary artery bypass graft) This is a very pleasant 68 year-old male with a history of CAD s/p CABG in 06/2024 (prior remote stents in 2011). His ejection fraction is normal. He is doing quite well with his current medications. he needs to remain on aspirin 81mg daily, lifelong. I have not changed his statin or antihypertensive regimen today. Will get a routine echo, at his convenience, as a new post-op baseline. Otherwise he should remain as active as possible and I will see him back in one year, sooner if needed. It was a pleasure seeing your patient in the office today. Please do not hesitate to call me with any questions. Follow up in about 1 year (around 11/13/2025). Subjective HPI Sharonda Flores is a 69 y.o. male with a history of several PCIs, most recently in May 2012. He had a stress test in 05/2024 showing inferior ischemia. Cath then showed three vessel CAD. He underwent CABG in 06/2024 (GREY-LAD, SVG-PDA, SVG-D1). EF was normal pre-op. He did well post-op and has recovered well. Sharonda Flores is here for routine follow up. he Is doing well, having no cardiac symptoms. He has some mild continued soreness at his incision site, but overall feels pretty good. Review of Systems Constitutional: Negative for activity change, chills, diaphoresis, fatigue and fever. HENT: Negative for nosebleeds and trouble swallowing. Eyes: Negative for discharge and visual disturbance. Respiratory: Negative for apnea, cough, chest tightness, shortness of breath and wheezing. Cardiovascular: Negative for chest pain, palpitations and leg swelling. Gastrointestinal: Negative for abdominal distention, abdominal pain, blood in stool, diarrhea, nausea and vomiting. Endocrine: Negative for cold intolerance and heat intolerance. Genitourinary: Negative for hematuria. Musculoskeletal: Negative for gait problem and myalgias. Skin: Negative for color change and rash. Neurological: Negative for dizziness, seizures, syncope, facial asymmetry, speech difficulty, weakness, light-headedness, numbness and headaches. Hematological: Does not bruise/bleed easily. Psychiatric/Behavioral: Negative for dysphoric mood. Allergies Allergen Reactions Pcn [Penicillins] Rash Current Outpatient Medications: aspirin 81 MG EC tablet, Take 81 mg by mouth every morning (before breakfast)., Disp: , Rfl: atorvastatin (Lipitor) 80 MG tablet, Take 1 tablet (80 mg) by mouth every evening., Disp: 90 tablet, Rfl: 3 clopidogrel (Plavix) 75 MG tablet, TAKE 1 TABLET BY MOUTH EVERY DAY, Disp: 30 tablet, Rfl: 2 ezetimibe (Zetia) 10 MG tablet, Take 1 tablet (10 mg) by mouth every morning (before breakfast)., Disp: 30 tablet, Rfl: 3 methocarbamol 1000 MG tablet, Take 1,000 mg by mouth every 8 hours as needed for muscle spasms for up to 14 days., Disp: 42 tablet, Rfl: 0 metoprolol tartrate (Lopressor) 25 MG tablet, Take 1 tablet (25 mg) by mouth 2 times daily., Disp: 60 tablet, Rfl: 3 Past Medical History: Diagnosis Date Arrhythmia v-fib/ arrest CAD (coronary artery disease) Cancer (CMS/HCC) (HCC) LUNG UPPER RIGHT - SURGERY FOR REMOVAL 02/09/2024 Congenital heart disease Hyperlipidemia Hypertension [place], old ST[place] PLACE Sleep apnea NO CPAP WORN Social History Tobacco Use Smoking status: Former Current packs/day: 0.00 Average packs/day: 2.0 packs/day for 56.1 years (112.2 ttl pk-yrs) Types: Cigarettes Start date: 1955 Quit date: 08/17/2011 Years since quittin.2 Smokeless tobacco: Former Quit date: 1970 Tobacco comments: Quit smoking: currently occ cigar Substance Use Topics Alcohol use: No Past Surgical History: Procedure Laterality Date ADENOIDECTOMY APPENDECTOMY CARDIAC CATHETERIZATION N/A 07/05/2024 Performed by Becky Tineo MD at [facility] Cardiac Cath/EP Lab CARDIAC PROCEDURE 03/15/2012 BMS mid dis RCA CARDIAC PROCEDURE 03/2012 REBECCA to mis dist LAD CARDIAC PROCEDURE 05/2012 REBECCA to prox LCx COLONOSCOPY CORONARY ANGIOPLASTY 05/2012 circ, distal RCA, & LAD TONSILLECTOMY Family History Problem Relation Name Age of Onset Heart disease Father Thad No Known Problems Mother Cancer Maternal Grandfather Mother Objective Vitals: 11/13/24 1245 11/13/24 1300 BP: (S) (!) 162/80 136/68 BP Location: Right arm Left arm Patient Position: Sitting BP Cuff Size: Adult Pulse: 66 SpO2: 98% Weight: 157 lb (71.2 kg) Height: 5' 5 (1.651 m) Physical Exam Constitutional: General: He is not in acute distress. Ap (more content not included)... [facility]24 Progress Note EMR reviewed. Sharon grimes enrolled in [facility] Cardiac 90-day BPCI Program post-hospital discharge 07/31/24 DX-CABG x3 (GREY-LAD, SVG-Diag, SVG-PDA), LAD endarterectomy LEVH, ZARI on 07/25/24 (Dr. Martinez). 90-day outreach made by 10/25/24 VM left. BPCI program is complete able to avoid any re-admissions during 90-day period case closed. Normal [facility] Progress Noteon 10-25-2024 Progress Note 10/25/24 Community Health Worker Patient active with: BPCI RN MARCI Grant Reason for Call: BPCI outreach Chart review completed. Follow up Appointments 11/13 Cardiology Placed a phone call no answer, left voice message stating reason for call. Left contact information for call back. BPCI end call. Normal [facility] Progress Noteon 10-10-2024 Progress Note EMR reviewed. Sharon grimes enrolled in [facility] Cardiac 90-day BPCI Program post-hospital discharge 07/31/24 DX-CABG x3 (GREY-LAD, SVG-Diag, SVG-PDA), LAD endarterectomy LEVH, ZARI on 07/25/24 (Dr. Martinez). 60-day outreach made by CHW 10/01/24 LVM. 90 day future outreach scheduled. Normal [facility] Progress Noteon 10-09-2024 Progress Note [facility]: [facility] [address] [facility] [facility] [address] Dept: [phone] Dept Loc: [phone] Visit type: Established patient Reason for Visit: Follow-up Assessment and Plan 1. S/P CABG (coronary artery bypass graft) 07/25/24: Dr. Martinez- CABG x3 (GREY-LAD, SVG-Diag, SVG-PDA), LAD endarterectomy LEVH, ZARI -No issues, progressing well physically. -Starting Cardiac Rehab in the next couple of weeks. -Incisions healing well. -Pain tolerable. POD#83 Day from Discharge (07/31/24) #78 -Reviewed current meds: Continue as prescribed. -Surgical Incisions: Per patient-healing appropriately, well approximated, no s/s of infection. -Physical therapy as outlined in discharge instructions.Ok to attend Cardiac Rehab and Ok to drive. -Acute Post-Operative Pain controlled. Patient no longer taking narcotic opioid medication. Tx plan: Over The Counter-Tylenol (acetaminophen) 500 mg 1-2 tablets every 6 hours. No more than 4,000 mg in 24 hour period, Over The Counter-Motrin (ibuprofen) 200-400 mg by mouth every 4-6 hours (or) 600-800mg every 8 hours. No more than 3,200 mg per day, Over The Counter-pain patches (Salon pas) may used as needed next to incision but not directly on your incision, and Ice packs applied for 20 minutes, then off for at least 20 minutes before reapplying. Weight restriction measures 1-4 weeks from date of surgery- 10lbs weight restriction: 5-8 weeks from date of surgery- 20lbs weight restriction: 9-12 weeks from date of surgery-30lbs weight restriction approximate end date: Disposition: Patient verbalized understanding of plan and stated they would call if any questions or concerns arise. Treatment Team: PCP: Tima Tello MD Patient was identified and seen today via Telehealth by agreement and consent. I used the following Telehealth technology: Audio capability only. Total length of call 10 minutes. The patient was offered and advised video for a more comprehensive evaluation, but the patient declined or was unable to use video. Patient location: Patient Location: [place]. This patient encounter is appropriate and reasonable under the circumstances: Patient preference . The patient has been advised of the potential risks and limitations of this mode of treatment (including but not limited to the absence of in-person examination) and has agreed to be treated in a remote fashion in spite of them. Any and all of the patient's/patient's family's questions on this issue have been answered and I have made no promises or guarantees to the patient. The patient has also been advised to contact this office for worsening conditions or problems, and seek emergency medical treatment and/or call 911 if the patient deems either necessary. The patient stated that they are currently in the state [facility]. If the patient is a minor, permission has been obtained by the parent or guardian for the patient to receive medical care at this visit. Subjective HPI: Sharonda Flores is a 68 y.o. male referred by Dr. Tineo for CABG. Patient's PMHx includes CAD (s/p several PCI, most recently 2011 - LAD, LCx, distal RCA with known PHYSICIAN NON INVASIVE CARDIOLOGIST D2), preserved LVEF (65%), HTN, HLD, PAD (follows with vascular at [facility]), prior tobacco use, pulmonary nodules, adenocarcinoma s/p RUL lobectomy 01/2024 (follows with Pulmonology), and psoriasis. Patient had presented to [facility] ED with a sharp pain in the center of his chest with left shoulder ache. He had associated diaphoresis and nausea. EKG was normal.Troponin was WNL. Discharged and advised to follow up with Cardiology. A stress echocardiogram was ordered and completed on 06/25/24 which was abnormal. He then underwent a heart catheterization on 07/08/24 which demonstrated multivessel CAD. Seen by Dr. Martinez in OP setting, agreeable to CABG, scheduled for 07/25/24. Patient extubated as expected post-op, was on pressor support and transfused blood products. Weaned off of pressors by POD#1. Had brief runs of atrial fibrillation, loaded with amio without re-occurrence. Patient progressed well and was able to DC home on POD#06. 08/14/24: Patient presents to office for follow up. Overall he is doing well. He says he is having good days and bad days. He is getting around well. Pain is tolerable, with aches and pains in his neck, back and shoulders. Noted to have L shoulder pain prior to surgery. Seen orthopedics for L shoulder pain. Incisions healing well, surgical tape removed. Appetite has been poor, encouraged small meals throughout the day and increased protein intake. Reviewed provided vitals log. 08/28/24: Spoke with patient on phone for follow up. Continues to recover well. Per patient, incisions healing. Pain tolerable. No acute issues. Reviewed medications. 09/09/24: Spoke to patient on phone for follow up. Overall doing well. Not eating much, requesting ens (more content not included)... Normal [facility] Progress Noteon 10-01-2024 Progress Note 10/01/24 Community Health Worker Patient active with: BPDARRIUS Grant Chart review completed. Follow up Appointments 10/09 Cardio Thoracic Surgery 11/13 Cardiology Placed a call no answer, left voice message stating reason for call. Left contact information for call back. Outreach scheduled Normal [facility] CNOVon 09-24-2024 CNOV Office Visit (PULMWS ) -- SHARONDA FLORES ([id number]) 1955 M [facility] Date Time Provider Department 09/24/24 8:00 AM GISSELLE PHELAN PULRamyaWS During your visit today, we recorded the following information about you: Pulse Respiration Blood pressure 66/minute 18/minute 118/72 Gisselle Phelan APRN.DISASTER RECOVERY MANAGER 09/24/2024 9:56 AM Signed Pulmonary Medicine Patients name: Sharonda Flores PCP: Tima Tello MD CC: follow-up HPI: Sharonda Flores is a 69 year old male former 37 pack year smoker, quitting in 2010 with PMH significant for CAD s/p stents, PAD, psoriasis, pulmonary nodules, adenocarcinoma of lung s/p RUL lobectomy 01/2024. No chemotherapy or radiation. Being seen by oncology with plans for active surveillance. He presents today for follow-up. Not currently on inhaled therapy. Previously seen by lung cancer screening. Now following with Oncology for surveillance. New to Dr. Mas in 04/2024 with overall stable pulmonary symptoms. Underwent CABG in June. He was seen by Oncology earlier this month with chest CT. CT notable for RLL tree-in-bud/clustered nodules likely infectious/inflammatory. Denied any sickness/concerns at that time. Today, he denies respiratory symptoms. No cough, wheezing, SOB or chest tightness. He notes ongoing soreness in his right ribs which first started after lobectomy. Denies recent illness or need for steroids/antibiotics for respiratory infections. PAST MEDICAL HISTORY Diagnosis Date Abdominal aortic aneurysm (AAA) without rupture (HCC) 3 x 3.1 cm 05/2021, repeat 1 year. Benign neoplasm of colon Coronary artery disease involving chilkoot coronary artery of chilkoot heart without angina pectoris Dr. Tineo Essential hypertension Heart attack (HCC) 2012 s/p stents History of tobacco use HLD (hyperlipidemia) Multiple lung nodules on CT 11/09/2023 PET scan ordered PAD (peripheral artery disease) (HCC) 04/04/2024 Mild to moderate disease LLE on LINH Primary lung adenocarcinoma, right (HCC) RUL,s/p 02/09/24 flexible bronchoscopy, right VATS, right upper lobe wedge resection, cryo nerve block, mediastinal lymph node dissection Psoriasis [facility] S/P lobectomy of lung S/P triple vessel bypass 07/25/2024 Thrombocytopenia (HCC) Tinnitus of both ears Allergies: Penicillins Hives Medication List Accurate as of September 20, 2024 5:28 PM. If you have any questions, ask your nurse or doctor. CONTINUE taking these medications Aspirin 81 mg Tab atorvastatin 80 mg tablet Commonly known as: LIPITOR Take 1 tablet by mouth daily at bedtime. For cholesterol. clopidogrel 75 mg tablet Commonly known as: PLAVIX methocarbamol 1,000 mg tablet metoprolol tartrate (short acting) 25 mg tablet Commonly known as: LOPRESSOR DATA: I personally reviewed and analyzed all labs, radiographs and available pulmonary function testing PFT: 11/2023 Spirometry did not show obstruction. Lung volumes not valid. The diffusing capacity is normal. CXR: Last XR Chest - Impression Only XR CHEST 1V FRONTAL Exam End: 07/31/2024 5:43 AM (Final result) Impression: Probable small left pleural effusion. Atelectasis at the left base as well Report Dictated on Electronically Signed By: Elijah Flynn MD Electronically Signed Date/Time: 07/31/2024 6:[address] Chest: 09/06/2024 IMPRESSION: 1. Multiple clustered nodules in a tree-in-bud distribution in the posterior right lower lobe which are most likely infectious/inflammatory 2. Retained secretions in the trachea 3. No thoracic lymphadenopathy Security Business Analyst: [employer] Transcribe Date/Time: Sep 11 2024 9:31A Dictated by : JOANNA LYONS MD This examination was interpreted and the report reviewed and electronically signed by: JOANNA LYONS MD on Sep 11 2024 9:46AM EST Results-Findings * * *Final Report* * * DATE OF EXAM: Sep 06 2024 3:26PM [facility] 0539 - CT CHEST W IVCON / PROCEDURE REASON: Malignant neoplasm of unspecified part of unspecified bronchus or lung (HCC) * * * * Physician Interpretation * * * * EXAMINATION: CHEST CT WITH CONTRAST CLINICAL HISTORY: Non-small cell lung cancer. Status post right upper lobectomy. Technique: Spiral CT acquisition of the chest from the thoracic inlet to the upper abdomen following IV contrast. MQ: CTCW_6 Contrast: 50 mL Omnipaque [address] Radiation dose: Integrated Dose-length product (DLP) for this visit = 173 mGy*cm CT Dose Reduction Employed: Automated exposure control(AEC) and iterative recon Comparison: CT chest 12/13/2023 RESULT: Limitations: None. Lines, tubes, and devices: None. Lung parenchyma and airways: Postoperative changes from a right upper lobectomy. No consolidation. Multiple clustered nodules in the posterior right lower lobe which are most likely infec (more content not included)... Normal [facility] CNOVon 09-17-2024 [facility] SHARONDA FLORES ([id number]) 1955 M [facility] Date Time Provider Department 09/17/24 8:20 AM ALEJANDRA VIRAMONTES During your visit today, we recorded the following information about you: Pulse Respiration Blood pressure Weight 74/minute 18/minute 122/68 68.5 kg Alejandra Viramontes APRN.CNP 09/17/2024 8:41 AM Signed 09/16/2024 Patient presents with: F/U 3 Month SUBJECTIVE: This is a 69 year old that is here today for Above Complaints.. HTN: Patient is compliant with meds Yes Monitors bp at home: Yes. Denies side effects: Yes. Chest pain: No. Dyspnea: No. Edema: No. Palpitations: No. Syncope: No. Headache: No. Dizziness: No. HYPERLIPIDEMIA: Patient is taking medications: Yes. Patient is watching diet: Yes. Patient denies myalgias: Yes. Patient denies gi upset: Yes Triple bypass on 07/25/2025. Doing well. Last follow-up on 09/09/2024. Currently doing cardiac rehab Follows with oncology and pulmonology for hx of NSCLC with last office appointment on 09/09/2024. No medication changes. Next follow-up 03/17/2025. Recently completed CT chest PAD: followed with [facility] on 06/07/2024. No changes in current regime. PAST MEDICAL HISTORY Diagnosis Date Abdominal aortic aneurysm (AAA) without rupture (HCC) 3 x 3.1 cm 05/2021, repeat 1 year. Benign neoplasm of colon Coronary artery disease involving chilkoot coronary artery of chilkoot heart without angina pectoris Dr. Tineo Essential hypertension Heart attack (HCC) 2011 s/p stents History of tobacco use HLD (hyperlipidemia) Multiple lung nodules on CT 11/09/2023 PET scan ordered PAD (peripheral artery disease) (HCC) 04/04/2024 Mild to moderate disease LLE on LINH Primary lung adenocarcinoma, right (HCC) RUL,s/p 02/09/24 flexible bronchoscopy, right VATS, right upper lobe wedge resection, cryo nerve block, mediastinal lymph node dissection Psoriasis [facility] S/P lobectomy of lung Thrombocytopenia (HCC) Tinnitus of both ears ALLERGIES Penicillins MEDICATIONS Current Outpatient Medications Medication Sig methocarbamol 1,000 mg tablet Take 1,000 mg by mouth four times daily. clopidogrel (PLAVIX) 75 mg tablet Take 75 mg by mouth. metoprolol tartrate, short acting, (LOPRESSOR) 25 mg tablet Take 25 mg by mouth two times a day. atorvastatin (LIPITOR) 80 mg tablet Take 1 tablet by mouth daily at bedtime. For cholesterol. Aspirin 81 mg Tab Take 81 mg by mouth once daily. No current facility-administered medications for this visit. Medications and allergies reviewed by this provider. SOCIAL HISTORY Social History Tobacco Use Smoking status: Former Current packs/day: 0.00 Average packs/day: 1.5 packs/day for 25.0 years (37.5 ttl pk-yrs) Types: Cigarettes Start date: 01/24/1986 Quit date: 01/24/2011 Years since quittin.6 Smokeless tobacco: Never Vaping Use Vaping status: Never Used Substance Use Topics Alcohol use: Not Currently Drug use: Yes Types: Marijuana Comment: Twice a month REVIEW OF SYSTEMS All other reviewed and negative other than HPI. OBJECTIVE: BP 122/68 Pulse 74 Resp 18 Wt 68.5 kg (151 lb 0.2 oz) SpO2 97% BMI 23.70 kg/m? . Vital signs reviewed by this provider. APPEARANCE Well appearing, alert, in no acute distress, well-hydrated, well nourished. EYES conjunctiva and sclera normal. HEART RRR with normal S1 and S2, no murmurs, no gallops, no JVD appreciated LUNG clear to auscultation. No wheezes, rhonchi or rales EXTREMITIES Extremities normal, No deformities, No skin discoloration, and No edema SKIN Skin color, texture, turgor normal, no suspicious rashes or lesions to exposed skin Latest Ref Rng 09/02/2024 Cholesterol, Total <200 mg/dL 148 Triglyceride <150 mg/dL 182 (H) HDL Cholesterol >39 mg/dL 28 (L) Non HDL Cholesterol <130 mg/dL 120 Fasting Time hrs 24 VLDL Cholesterol <30 mg/dL 36 (H) TC:HDL Ratio <5.10 5.29 (H) LDL Cholesterol <100 mg/dL 84 LDL:HDL Ratio <2.54 3.00 (H) Legend: (H) High (L) Low DTaP,Tdap,Td Vaccine(1 - Tdap) Never done Shingrix Vaccine(1 of 2) Never done Pneumococcal Vaccine: 50+(1 of 1 - PCV) Never done RSV Vaccine(1 - Risk 60-74 years 1-dose series) Never done Advance Directive Discussion due on 07/31/2024 Influenza Vaccine(1) due on 01/27/2025 Covid-19 Vaccine(3 - season) due on 06/10/2025 Depression Screening due on 12/07/2024 Anxiety Screening due on 12/07/2024 LDL Cholesterol due on 09/02/2025 Annual PCP Team Chronic Disease Visit due on 09/17/2025 BP Controlled (<130/80) due on 09/17/2025 Diabetes Screening due on 07/31/2027 Lipid Screening due on 09/02/2029 Colorectal Cancer Screening due on 08/03/2031 Abdominal Aortic Aneurysm Screening Completed Hepatitis C Screening Completed ASSESSMENT/PLAN: 1. Essential hypertension - ICD9: 401.9, IC (more content not included)... Normal [facility] CNOVSPon 09-09-2024 CNOVSP Visit (SP) Office (H EMAWS) -- MARKLUTHERALEJANDRAMingo Heather ([id number]) 1955 M [place] Date Time Provider Department 09/09/24 8:30 AM HAKAN BLACKWELL During your visit today, we recorded the following information about you: Temperature Pulse Blood pressure Weight 97.5 degrees 61/minute 128/73 66.9 kg Hakan Blackwell 09/09/2024 9:59 AM Signed Sharonda Flores 1955 09/09/2024 Consulted for NSCLC. The impression and plan will be communicated by way of the shared electronic record. HPI: The patient is a 68-year-old male with past medical history as outlined below. Had a screening CT of the lung 11/06/2023. Observed to have a solid nodule in the right upper lobe with an average diameter of approximately 10.2 mm. It would. Mildly larger when compared to scan in July 2023. There were 2 other nodules in the right upper lobe. 1 of which appeared stable and the other measuring 4 x 3 mm may have been slightly larger than when compared to previous scan. A 7.1 mm parenchymal density in the right upper lobe on PET scan performed subsequently had an SUV of 4.1. Ultimately underwent a right sided VATS right upper lobectomy on 02/09/2024. Interval Hx: Mr. Flores presents today for follow up and CT review. Unfortunately CT read is still pending today. He reports feeling generally well. Denies recent illness. No fevers, chills. Had a challenging year with resection followed closely by open heart surgery. He plans to begin cardiac rehab soon. Denies new aches or pains. No new or worsening SOB, CP, or palpitations. No changes in bowel or bladder habits. No rash or skin changes. Denies bleeding or bruising. Not much of an appetite since first surgery. Pathology: FINAL DIAGNOSIS A. Lung, right upper lobe, wedge resection: - Adenocarcinoma, acinar subtype. - Inked surgical margin is positive for carcinoma. - See comment. B. Lymph node, level 9, excision: - Lymph node tissue, negative for carcinoma (0/1). C. Lung, right upper lobe, lobectomy: - Adenocarcinoma, acinar (60%) and lepidic (40%) patterns. - Margins (bronchial, vascular and parenchymal margins) negative for tumor. - Focal features suggestive of prior infarct. - Seven lymph nodes, negative for carcinoma (0/7). - See comment and synoptic report. D. Lymph node, level 4, excision: - Fibroadipose tissue, negative for tumor. - Lymph node tissue is not present. E. Lymph node, level 7, excision: - One lymph node, negative for carcinoma (0/1). Diagnosis Comment A. The tumor in part A shows extensive frozen artifact which limits the morphologic evaluation as well as the evaluation for size,vascular space and pleural invasion. C. Targeted oncology profile (TOP), ALK, PDL1, ROS1 and RET testing will be performed A, C. Dr. Erica Roberts has reviewed this case and agrees with the above diagnosis. Block for additional Biomarkers/Molecular studies C16 Synoptic Report LUNG 8th Edition - Protocol posted: 04/20/2022LUNG: RESECTION - All Specimens SPECIMEN Procedure Lobectomy Specimen Laterality Right TUMOR Tumor Focality Single focus Tumor Site Upper lobe of lung Tumor Size Total Tumor Size (size of entire tumor) Greatest Dimension (Centimeters): at least 1.5 cm Size of Invasive Component Greatest Dimension (Centimeters): at least 1.5 cm Histologic Type Invasive acinar adenocarcinoma Histologic Patterns Present Acinar: 80 Histologic Grade G2, moderately differentiated Spread Through Air Spaces (ANITA) Not identified Visceral Pleura Invasion Not identified Direct Invasion of Adjacent Structures Not applicable (no adjacent structures present) Treatment Effect No known presurgical therapy Lymphovascular Invasion Not identified MARGINS Margin Status for Invasive Carcinoma All margins negative for invasive carcinoma Closest Margin(s) to Invasive Carcinoma Bronchial Vascular Parenchymal Distance from Invasive Carcinoma to Closest Margin 3.5 cm Margin Status for Non-Invasive Tumor All margins negative for non-invasive tumor REGIONAL LYMPH NODES Lymph Node(s) from Prior Procedures Not included Regional Lymph Node Status All regional lymph nodes negative for tumor Number of Lymph Nodes Examined 9 Erika Site(s) Examined 4R: Lower paratracheal 9R: Pulmonary ligament 7: Subcarinal PATHOLOGIC STAGE CLASSIFICATION (pTNM, AJCC 8th Edition) Reporting of pT, pN, and (when applicable) pM categories is based on information available to the pathologist at the time the report is issued. As per the AJCC (Chapter 1, 8th Ed.) it is the managing physician?s responsibility to establish the final pathologic stage based upon all pertinent information, including but potentially not limited to this pathology report. pT Category pT1b pN Category pN0 . Pos (more content not included)... Normal [facility] Progress Noteon 09-09-2024 Progress Note [facility] Group: [place] [facility] [place] [address] [facility] [address] Dept: [phone] Dept Loc: [phone] Visit type: Established patient Reason for Visit: Follow-up Assessment and Plan 1. S/P CABG (coronary artery bypass graft) 2. Essential hypertension 3. Atrial fibrillation, unspecified type (HCC) 07/25/24: Dr. Martinez- CABG x3 (GREY-LAD, SVG-Diag, SVG-PDA), LAD endarterectomy [facility], [facility] Requesting ensure x2 months. -Will send script to pharmacy. Incisions healing well. Reviewed medications. No acute issues. POD#46 Day from Discharge (07/31/24) #40 -Reviewed current meds: Continue as prescribed. -Surgical Incisions: Per patient-healing appropriately, well approximated, no s/s of infection. -Physical therapy as outlined in discharge instructions.Ok to attend Cardiac Rehab and Ok to drive. -Acute Post-Operative Pain controlled. Patient no longer taking narcotic opioid medication. Tx plan: Over The Counter-Tylenol (acetaminophen) 500 mg 1-2 tablets every 6 hours. No more than 4,000 mg in 24 hour period, Over The Counter-Motrin (ibuprofen) 200-400 mg by mouth every 4-6 hours (or) 600-800mg every 8 hours. No more than 3,200 mg per day, Over The Counter-pain patches (Salon pas) may used as needed next to incision but not directly on your incision, and Ice packs applied for 20 minutes, then off for at least 20 minutes before reapplying. Weight restriction measures 1-4 weeks from date of surgery- 10lbs weight restriction: 5-8 weeks from date of surgery- 20lbs weight restriction: 9-12 weeks from date of surgery-30lbs weight restriction approximate end date: Disposition: Cardiology appt 11/13/24, will see if office can get moved up. Phone call in 3 weeks. Patient verbalized understanding of plan and stated they would call if any questions or concerns arise. Treatment Team: PCP: Tima Tello MD Patient was identified and seen today via Telehealth by agreement and consent. I used the following Telehealth technology: Audio capability only. Total length of call 20 minutes. The patient was offered and advised video for a more comprehensive evaluation, but the patient declined or was unable to use video. Patient location: Patient Location: Home. This patient encounter is appropriate and reasonable under the circumstances: Recently assessed in [facility] . The patient has been advised of the potential risks and limitations of this mode of treatment (including but not limited to the absence of in-person examination) and has agreed to be treated in a remote fashion in spite of them. Any and all of the patient's/patient's family's questions on this issue have been answered and I have made no promises or guarantees to the patient. The patient has also been advised to contact this office for worsening conditions orproblems, and seek emergency medical treatment and/or call 911 if the patient deems either necessary. The patient stated that they are currently in the [facility]. If the patient is a minor, permission has been obtained by the parent or guardian for the patient to receive medical care at this visit. Subjective HPI: Sharonda Flores is a 68 y.o. male referred by Dr. Tineo for CABG. Patient's PMHx includes CAD (s/p several PCI, most recently 2011 - LAD, LCx, distal RCA with known PHYSICIAN NON INVASIVE CARDIOLOGIST D2), preserved LVEF (65%), HTN, HLD, PAD (follows with vascular at [facility]), prior tobacco use, pulmonary nodules, adenocarcinoma s/p RUL lobectomy 01/2024 (follows with Pulmonology), and psoriasis. Patient had presented to [facility] ED with a sharp pain in the center of his chest with left shoulder ache. He had associated diaphoresis and nausea. EKG was normal.Troponin was WNL. Discharged and advised to follow up with Cardiology. A stress echocardiogram was ordered and completed on 06/25/24 which was abnormal. He then underwent a heart catheterization on 07/08/24 which demonstrated multivessel CAD. Seen by Dr. Martinez in OP setting, agreeable to CABG, scheduled for 07/25/24. Patient extubated as expected post-op, was on pressor support and transfused blood products. Weaned off of pressors by POD#1. Had brief runs of atrial fibrillation, loaded with amio without re-occurrence. Patient progressed well and was able to DC home on POD#06. 08/14/24: Patient presents to office for follow up. Overall he is doing well. He says he is having good days and bad days. He is getting around well. Pain is tolerable, with aches and pains in his neck, back and shoulders. Noted to have L shoulder pain prior to surgery. Seen orthopedics for L shoulder pain. Incisions healing well, surgical tape removed. Appetite has been poor, encouraged small meals throughout the day and increased protein intake. Reviewed provided vitals log. 08/28/24: Spoke with patient on phone for follow up. Continues to recover well. Per patient, incisions healing. Pa (more content not included)... Normal [facility] CT CHEST W IVCONon CT CHEST W IVCON * * *Final Report* * * DATE OF EXAM: Sep 06 2024 3:26PM [facility] 0539 - CT CHEST W IVCON / PROCEDURE REASON: Malignant neoplasm of unspecified part of unspecified bronchus or lung (HCC) * * * * Physician Interpretation * * * * EXAMINATION: CHEST CT WITH CONTRAST CLINICAL HISTORY: Non-small cell lung cancer. Status post right upper lobectomy. Technique: Spiral CT acquisition of the chest from the thoracic inlet to the upper abdomen following IV contrast. MQ: [id number]_6 Contrast: 50 mL Omnipaque [address] Radiation dose: Integrated Dose-length product (DLP) for this visit = 173 mGy*cm CT Dose Reduction Employed: Automated exposure control(AEC) and iterative recon Comparison: CT chest 12/13/2023 RESULT: Limitations: None. Lines, tubes, and devices: None. Lung parenchyma and airways: Postoperative changes from a right upper lobectomy. No consolidation. Multiple clustered nodules in the posterior right lower lobe which are most likely infectious/inflammatory. Retained secretions in the trachea. The central airways are patent. Pleural space: No pleural effusion. No pleural thickening. Lower neck, lymph nodes, and mediastinum: The imaged thyroid gland is normal. No lymphadenopathy in the supraclavicular, axillary, mediastinal, or hilar regions. Heart, pericardium, and thoracic vessels: The thoracic aorta and main pulmonary artery are normal in caliber. The cardiac chambers are normal in size. Coronary artery atherosclerotic calcifications are noted, although the study is not optimized for coronary assessment. No pericardial effusion or thickening. Bones and soft tissues: No destructive bone lesion. Median sternotomy wires are noted. Chest wall is unremarkable. Upper abdomen: No abnormality in the imaged upper abdomen. Localizer images: No additional findings. IMPRESSION: 1. Multiple clustered nodules in a tree-in-bud distribution in the posterior right lower lobe which are most likely infectious/inflammatory 2. Retained secretions in the trachea 3. No thoracic lymphadenopathy Security Business Analyst: [facility] Transcribe Date/Time: Sep 11 2024 9:31A Dictated by : JOANNA LYONS MD This examination was interpreted and the report reviewed and electronically signed by: JOANNA LYONS MD on Sep 11 2024 9:46AM EST [id number] Normal [facility] Lipid 1996 panelon 5 Cholesterol [Mass/Vol] 148 mg/dL Normal <200 [facility] Comment on above: Order Comment: Speci men Type: BLOOD SPECIMENOrdering Facility: [facility] Address: [address] [place] [address] Result Comment: <200 mg/dL, Desirable 200-239 mg/dL, Borderline high >239 mg/dL, High Performed By: #### 2 4331-1 ####[facility] LABCLIA [id number] [facility] [id number] [id number] [place] [address] [place] Cholesterol in HDL [Mass/Vol] 28 mg/dL Low >39 [facility] Comment on above: Order Comment: Charlesi men Type: BLOOD SPECIMENOrdering Facility: [facility] Address: [address] [place] [address] Result Comment: 40-5 9 mg/dL, Acceptable >59 mg/dL, High: Negative risk factor for coronary heart disease <40 mg/dL, Low: Positive risk factor for coronary heart disease Performed By: #### 2 4331-1 ####[facility] LABCLIA [id number] [address] [id number] [place] [address] [place] Cholesterol in LDL [Mass/Vol] 84 mg/dL Normal <100 [facility] Comment on above: Order Comment: [place] men Type: BLOOD SPECIMENOrdering Facility: [facility] Address: [address] [place] [address] Result Comment: <100 mg/dL, Optimal 100-129 mg/dL, Near optimal/above optimal 130-159 mg/dL, Borderline high 160-189 mg/dL, High >189 mg/dL, Very high Secondary prevention optimal LDL Cholesterol levels are recommended to be < 70 mg/dL Performed By: #### 2 4331-1 ####[facility] LABCLIA [id number] [address] [id number] [place] [address] [place] Cholesterol in LDL/Cholesterol in HDL [Mass ratio] 3.00 {ratio} High <2.54 [facility] Comment on above: Order Comment: Charlesi men Type: BLOOD SPECIMENOrdering Facility: [facility] Address: [address] [place] [address] Result Comment: Lizbeth diaz: 1. National Cholesterol Education Program ATP III Guideline At-A-Glance Quick Desk Reference: National Heart, Lung, and Blood Dolphin. National Institutes of Health. 2001: NIH Publication No. 01-3305. 2. An International Atherosclerosis Society position paper: global recommendations for the management of dyslipidemia: executive summary, Atherosclerosis. 2014: 232(2):410-413. Performed By: #### 2 4331-1 ####[facility] LABCLIA [id number] [id number] [place] [address] [place] Cholesterol in VLDL [Mass/Vol] 36 mg/dL High <30 [facility] Comment on above: Order Comment: Speci men Type: BLOOD SPECIMENOrdering Facility: [facility] Address: [address] [place] [address] Performed By: #### 2 4331-1 ####[facility] LABCLIA [id number] [address] [id number] [place] [address] [place] Cholesterol non HDL [Mass/Vol] 120 mg/dL Normal <130 [facility] Comment on above: Order Comment: Speci men Type: BLOOD SPECIMENOrdering Facility: [facility] Address: [address] [place] [address] Result Comment: <130 mg/dL, Optimal 130-159 mg/dL, Near optimal/above optimal 160-189 mg/dL, Borderline high 190-219 mg/dL, High >219 mg/dL, Very high Secondary prevention optimal non HDL Cholesterol levels are recommended to be <100 mg/dL Performed By: #### 2 4331-1 ####[facility] LABCLIA [id number] [address] [id number] [id number] Cholesterol.total/Stephanie sterol in HDL [Mass ratio] 5.29 {ratio} High <5.10 [facility] Comment on above: Order Comment: Speci men Type: BLOOD SPECIMENOrdering Facility: [facility] Address: [address] [place] [address] Performed By: #### 2 4331-1 ####[facility] LABCLIA [id number] [address] [id number] [place] [address] [place] FASTING TIME [address] [facility] Comment on above: Order Comment: Speci men Type: BLOOD SPECIMENOrdering Facility: [facility] Address: [address] [place] [address] Performed By: #### 2 4331-1 ####[facility] LABCLIA [id number] [address] [id number] [address] [place] Triglyceride [Mass/Vol] 182 mg/dL High <150 [facility] Comment on above: Order Comment: Speci men Type: BLOOD SPECIMENOrdering Facility: [facility] Address: [address] [place] [address] Result Comment: <150 mg/dL, Normal 150-199 mg/dL, Borderline high 200-499 mg/dL, High >499 mg/dL, Very high Performed By: #### 2 4331-1 ####[facility] LABCLIA [id number] [address] [id number] [address] [place] Progress Noteon 09-02-2024 Progress Note 09/02/24 1153 BPCI Late Drop? Program late drop? No BPCI Outreach Assessment Selection Which outreach assessment are you completing? 30 Day BPCI - 30 Day Outreach Did patient answer phone call? Yes Since you have been discharged from the facility, what do you feel the status of you condition is? Improving Do you have any concerns with your medication(s)? No Any complications with post discharge services? No Any concerns with your DME equipment? No Any questions about your condition you are unsure about that I can help clarify? No EMR reviewed. Patient enrolled in [facility] 90-day BPCI Program post-hospital discharge 07/31/24 DX-CABG x3 (GREY-LAD, SVG-Diag, SVG-PDA), LAD endarterectomy [facility], ZARI on 07/25/24 (Dr. Martinez). 30-day outreach made spoke with patient reports has a cold with a cough mostly at night, (using pillow to splint chest), denies SOB, instructed patient to call PCP if cough worsens or persists. Patient is still active with [facility]- nursing, PT/OT per patient most likely 2 more visits. Patient inquired about cardiac rehab there is a standing order in place. Patient denies any other health questions at this time. CM to schedule future outreach. Normal [facility] Progress Noteon 08-28-2024 Progress Note [facility] Group: [facility] [address] [place] [address] Dept: [phone] Dept Loc: [phone] Visit type: Established patient Reason for Visit: Follow-up Assessment and Plan 1. S/P CABG (coronary artery bypass graft) 2. Essential hypertension 3. Atrial fibrillation, unspecified type (HCC) 07/25/24: Dr. Martinez- CABG x3 (GREY-LAD, SVG-Diag, SVG-PDA), LAD endarterectomy [facility], ZARI -c coming out, pt/nursing -incisions healing -reviewed meds -no acute issues noted -pain tolerable POD#34 Day from Discharge (07/31/24) #28 -Reviewed current meds: continue as prescribed. -Surgical Incisions: Per patient-healing appropriately, well approximated, no s/s of infection. -Physical therapy as outlined in discharge instructions.Ok to attend Cardiac Rehab and Ok to drive. -Acute Post-Operative Pain controlled. Patient no longer taking narcotic opioid medication. Tx plan: Over The Counter-Tylenol (acetaminophen) 500 mg 1-2 tablets every 6 hours. No more than 4,000 mg in 24 hour period, Over The Counter-Motrin (ibuprofen) 200-400 mg by mouth every 4-6 hours (or) 600-800mg every 8 hours. No more than 3,200 mg per day, Over The Counter-pain patches (Salon pas) may used as needed next to incision but not directly on your incision, and Ice packs applied for 20 minutes, then off for at least 20 minutes before reapplying. Weight restriction measures 1-4 weeks from date of surgery- 10lbs weight restriction: 5-8 weeks from date of surgery- 20lbs weight restriction: 9-12 weeks from date of surgery-30lbs weight restriction approximate end date: Disposition: Follow up in 2 weeks and PRN. Patient verbalized understanding of plan and stated they would call if any questions or concerns arise. Treatment Team: PCP: Tima Tello MD Patient was identified and seen today via Telehealth by agreement and consent. I used the following Telehealth technology: Audio capability only. Total length of call 10 minutes. The patient was offered and advised video for a more comprehensive evaluation, but the patient declined or was unable to use video. Patient location: Patient Location: Home. This patient encounter is appropriate and reasonable under the circumstances: recently assessed in person . The patient has been advised of the potential risks and limitations of this mode of treatment (including but not limited to the absence of in-person examination) and has agreed to be treated in a remote fashion in spite of them. Any and all of the patient's/patient's family's questions on this issue have been answered and I have made no promises or guarantees to the patient. The patient has also been advised to contact this office for worsening conditions orproblems, and seek emergency medical treatment and/or call 911 if the patient deems either necessary. The patient stated that they are currently in the state [facility]. If the patient is a minor, permission has been obtained by the parent or guardian for the patient to receive medical care at this visit. Subjective HPI: Sharonda Flores is a 68 y.o. male referred by Dr. Tineo for CABG. Patient's PMHx includes CAD (s/p several PCI, most recently 2011 - LAD, LCx, distal RCA with known PHYSICIAN NON INVASIVE CARDIOLOGIST D2), preserved LVEF (65%), HTN, HLD, PAD (follows with vascular at [facility]), prior tobacco use, pulmonary nodules, adenocarcinoma s/p RUL lobectomy 01/2024 (follows with Pulmonology), and psoriasis. Patient had presented to [facility] ED with a sharp pain in the center of his chest with left shoulder ache. He had associated diaphoresis and nausea. EKG was normal.Troponin was WNL. Discharged and advised to follow up with Cardiology. A stress echocardiogram was ordered and completed on 06/25/24 which was abnormal. He then underwent a heart catheterization on 07/08/24 which demonstrated multivessel CAD. Seen by Dr. Martinez in OP setting, agreeable to CABG, scheduled for 07/25/24. Patient extubated as expected post-op, was on pressor support and transfused blood products. Weaned off of pressors by POD#1. Had brief runs of atrial fibrillation, loaded with amio without re-occurrence. Patient progressed well and was able to DC home on POD#06. 08/14/24: Patient presents to office for follow up. Overall he is doing well. He says he is having good days and bad days. He is getting around well. Pain is tolerable, with aches and pains in his neck, back and shoulders. Noted to have L shoulder pain prior to surgery. Seen orthopedics for L shoulder pain. Incisions healing well, surgical tape removed. Appetite has been poor, encouraged small meals throughout the day and increased protein intake. Reviewed provided vitals log. 08/28/24: Spoke with patient on phone for follow up. Continues to recover well. Per patient, incisions healing. Pain tolerable. No acute issues. Reviewed medications. Review of Systems Co (more content not included)... Normal [facility] Progress Noteon 08-20-2024 Progress Note 08/20/24 Community Health Worker Patient active with: [facility] Grant Chart review completed. Follow up Appointments 08/28 Cardiothoracic Surgery Called patient and identified role and reason for call. Patient stated he knows he will be experiencing some pain, he noted he still handling the pain with Tylenol as prescribed. Denies shortness of breath and need of refills. He was reminded of weight restrictions and he acknowledged. Outreach scheduled Normal [facility] Progress Note Completed 08/20/24 by CHW 08/20/241926 BPCI Late Drop? Program late drop? No BPCI Outreach Assessment Selection Which outreach assessment are you completing? 21 Day BPCI - 21 Day Outreach Did patient answer phone call? Yes Have you noticed any negative changes in your condition? No Have you had any issues contacting your provider regarding any concerns? No Do you have any concerns with your medication(s)? No Any complications with post discharge services? No Any concerns with your DME equipment? No Are there any additional items you need? No Any questions about your condition you are unsure about that I can help clarify? No Reminded patient about 30 day window to re-admit to SNF/HHC if needed. Done Normal [facility] Progress Noteon 08-16-2024 Progress Note EMR reviewed. Sharon grimes enrolled in [facility] 90-day BPCI Program post-hospital discharge 07/31/24 DX-CABG x3 (GREY-LAD, SVG-Diag, SVG-PDA), LAD endarterectomy [facility], ZARI on 07/25/24 (Dr. Martinez). 14-day outreach made unable to reach caller unavailable per teams. Spoke with patient last encounter. Patient had CTA post-op hospital follow up 08/14/24 notes copied below. Patient's incisions healing, VS log stable, cleared to drive with someone, continue current medications. RANULFO PT/OT, cardiac rehab referral once PT/OT C completed. -Acute Post-Operative Pain controlled. Patient no longer taking narcotic opioid medication. Tx plan: Over The Counter-Tylenol (acetaminophen) 500 mg 1-2 tablets every 6 hours. No more than 4,000 mg in 24 hour period, Over The Counter-Motrin (ibuprofen) 200-400 mg by mouth every 4-6 hours (or) 600-800mg every 8 hours. No more than 3,200 mg per day, Over The Counter-pain patches (Salon pas) may used as needed next to incision but not directly on your incision, and Ice packs applied for 20 minutes, then off for at least 20 minutes before reapplying. 2 week phone call and PRN with [facility]. Future outreach scheduled. Weight restriction measures 1-4 weeks from date of surgery- 10lbs weight restriction: 5-8 weeks from date of surgery- 20lbs weight restriction: 9-12 weeks from date of surgery-30lbs weight restriction approximate end date: Reason for Visit: Follow-up 08/14/24 Assessment and Plan 1. S/P CABG (coronary artery bypass graft) 2. 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 Essential hypertension 4. Atrial fibrillation, unspecified type (HCC) 07/25/24: Dr. Martinez- CABG x3 (GREY-LAD, SVG-Diag, SVG-PDA), LAD endarterectomy [facility], ZARI -Continue current medications. -Incisions healing well. -Reviewed vitals log, stable. -Okay to drive with someone. -Home Health nursing and PT/OT coming to house. -Will refer to Cardiac Rehab once Home Health completed. POD#20 Day from Discharge (07/31/24) #14 -Reviewed current meds: Continue. -Surgical Incisions: healing appropriately, well approximated, no s/s of infection. -Physical therapy as outlined in discharge instructions.Ok to drive and Not ready for Cardiac Rehab. -Acute Post-Operative Pain controlled. Patient no longer taking narcotic opioid medication. Tx plan: Over The Counter-Tylenol (acetaminophen) 500 mg 1-2 tablets every 6 hours. No more than 4,000 mg in 24 hour period, Over The Counter-Motrin (ibuprofen) 200-400 mg by mouth every 4-6 hours (or) 600-800mg every 8 hours. No more than 3,200 mg per day, Over The Counter-pain patches (Salon pas) may used as needed next to incision but not directly on your incision, and Ice packs applied for 20 minutes, then off for at least 20 minutes before reapplying. Weight restriction measures 1-4 weeks from date of surgery- 10lbs weight restriction: 5-8 weeks from date of surgery- 20lbs weight restriction: 9-12 weeks from date of surgery-30lbs weight restriction approximate end date: Disposition: 2 week phone call and PRN. Patient verbalized understanding of plan and stated they would call if any questions or concerns arise. Treatment Team: PCP: Ramya Galvez [facility] Office Visiton 08-14-2024 Follow-up visit [id number] Luther Flores 1955 M Date Provider Department Center 08/14/2024 [id number] FLOWERS [facility] CT None Family History Problem Relation Age of Onset Heart disease Father No Known Problems Mother Cancer Maternal Grandfather Family Status - Relation Status Age at Father Mother Alive Brother Alive Maternal Grandfather Level of Service:[id number] [place] POSTOP FOLLOW UP VISIT RELATED TO ORIGINAL PX Reason for Visit and Comments: Follow-up [[id number]] Normal [facility] Progress Noteon 08-14-2024 Progress Note [facility]: [facility] [address] [facility] [address] Dept: [phone] Dept Loc: [phone] Visit type: Established patient Reason for Visit: Follow-up Assessment and Plan 1. S/P CABG (coronary artery bypass graft) 2. 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 Essential hypertension 4. Atrial fibrillation, unspecified type ([facility]) 07/25/24: Dr. Martinez- CABG x3 (GREY-LAD, SVG-Diag, SVG-PDA), LAD endarterectomy [facility], ZARI -Continue current medications. -Incisions healing well. -Reviewed vitals log, stable. -Okay to drive with someone. -Home Health nursing and PT/OT coming to house. -Will refer to Cardiac Rehab once Home Health completed. POD#20 Day from Discharge (07/31/24) #14 -Reviewed current meds: Continue. -Surgical Incisions: healing appropriately, well approximated, no s/s of infection. -Physical therapy as outlined in discharge instructions.Ok to drive and Not ready for Cardiac Rehab. -Acute Post-Operative Pain controlled. Patient no longer taking narcotic opioid medication. Tx plan: Over The Counter-Tylenol (acetaminophen) 500 mg 1-2 tablets every 6 hours. No more than 4,000 mg in 24 hour period, Over The Counter-Motrin (ibuprofen) 200-400 mg by mouth every 4-6 hours (or) 600-800mg every 8 hours. No more than 3,200 mg per day, Over The Counter-pain patches (Salon pas) may used as needed next to incision but not directly on your incision, and Ice packs applied for 20 minutes, then off for at least 20 minutes before reapplying. Weight restriction measures 1-4 weeks from date of surgery- 10lbs weight restriction: 5-8 weeks from date of surgery- 20lbs weight restriction: 9-12 weeks from date of surgery-30lbs weight restriction approximate end date: Disposition: 2 week phone call and PRN. Patient verbalized understanding of plan and stated they would call if any questions or concerns arise. Treatment Team: PCP: Tima Tello MD Subjective HPI: Sharonda Flores is a 68 y.o. male referred by Dr. Tineo for CABG. Patient's PMHx includes CAD (s/p several PCI, most recently 2011 - LAD, LCx, distal RCA with known PHYSICIAN NON INVASIVE CARDIOLOGIST D2), preserved LVEF (65%), HTN, HLD, PAD (follows with vascular at [facility]), prior tobacco use, pulmonary nodules, adenocarcinoma s/p RUL lobectomy 01/2024 (follows with Pulmonology), and psoriasis. Patient had presented to [facility] ED with a sharp pain in the center of his chest with left shoulder ache. He had associated diaphoresis and nausea. EKG was normal.Troponin was WNL. Discharged and advised to follow up with Cardiology. A stress echocardiogram was ordered and completed on 06/25/24 which was abnormal. He then underwent a heart catheterization on 07/08/24 which demonstrated multivessel CAD. Seen by Dr. Martinez in OP setting, agreeable to CABG, scheduled for 07/25/24. Patient extubated as expected post-op, was on pressor support and transfused blood products. Weaned off of pressors by POD#1. Had brief runs of atrial fibrillation, loaded with amio without re-occurrence. Patient progressed well and was able to DC home on POD#06. 08/14/24: Patient presents to office for follow up. Overall he is doing well. He says he is having good days and bad days. He is getting around well. Pain is tolerable, with aches and pains in his neck, back and shoulders. Noted to have L shoulder pain prior to surgery. Seen orthopedics for L shoulder pain. Incisions healing well, surgical tape removed. Appetite has been poor, encouraged small meals throughout the day and increased protein intake. Reviewed provided vitals log. Review of Systems Constitutional: Positive for appetite change. Negative for chills, diaphoresis and fever. Respiratory: Positive for cough. Negative for shortness of breath and wheezing. Cardiovascular: Negative for palpitations and leg swelling. Gastrointestinal: Negative for abdominal distention, abdominal pain, nausea and vomiting. Neurological: Negative for dizziness and light-headedness. Allergies Allergen Reactions Pcn [Penicillins] Rash Outpatient Medications Prior to Visit Medication Sig Dispense Refill acetaminophen (Tylenol) 500 MG tablet Take 2 tablets (1,000 mg) by mouth 3 times daily. 180 tablet 0 amiodarone (Pacerone) 200 MG tablet Take 2 tablets (400 mg) by mouth 2 times daily for 10 days, THEN 2 tablets (400 mg) daily for 7 days, THEN 1 tablet (200 mg) daily for 7 days. 61 tablet 0 aspirin 81 MG EC tablet Take 81 mg by mouth every morning (before breakfast). atorvastatin (Lipitor) 80 MG tablet Take 1 tablet (80 mg) by mouth every evening. (Patient taking differently: Take 80 mg by mouth every morning (before breakfast).) 90 tablet 3 clopidogrel (Plavix) 75 MG tablet Take 1 tablet (75 mg) by mouth daily. 30 tablet 2 ezetimibe (Zetia) 10 MG tablet Take 10 mg by mouth every morning (befo (more content not included)... [facility] 08-12-2024 [facility] Office Visit (XANDER ) -- SHARONDA FLORES ([id number]) 1955 M [place] Date Time Provider Department 08/12/24 11:00 AM NAN NG During your visit today, we recorded the following information about you: Tianna Rachel LPN 08/12/2024 3:37 PM Signed AMB ROOMING INTAKE FLOWSHEET DATA Pain Pain Level: 10 Pain Location: Shoulder-Left Description: Aching, Sore Duration Amount of Time: 7 Duration Units: Months Frequency: Intermittent Intervention/Comfort measure: Reposition, Relaxation Patient presents with: Left Shoulder - New, Pain, Numbness ANDREW Lindsay Sondra, PA-C 08/12/2024 3:37 PM Signed Nan Ng PA-C Department of Orthopaedics Orthopaed[facility] [address] [facility] [address] Dept: [phone] Dept August 12, 2024 CHIEF COMPLAINT: New, Pain, and Numbness of the Left Shoulder Mr. Sharonda Flores is a 69 year old male who presents with worsening pain in his left shoulder. He tells me that he dislocated the shoulder in the , since the incident he has had some intermittent discomfort in the shoulder which did respond well to previous corticosteroid injections. The patient unfortunately had a recent coronary artery bypass about 2 weeks ago. Shortly after surgery he started having increased pain in his left shoulder. Pain was better with the pain was better with the narcotic pain medication he was taking following his CABG. Pain radiates down the arm and he does report some numbness in his left index finger. Patient reports that he was seen by a provider at the [facility] for his shoulder prior to his CABG, he was referred to physical therapy but was not able to start the therapy as he had surgery. ASSESSMENT: M50.30 DDD (degenerative disc disease), cervical (primary encounter diagnosis) M25.512, G89.29 Chronic left shoulder pain PLAN: The patient certainly has some degenerative changes in the shoulder region (AC) though most of his complaints sound like they may be radicular in nature. We discussed getting some cervical films today and then getting him into some physical therapy for his cervical spine. Cannot obtain EMG at this time because of anticoagulant. Will continue to monitor patient for Ddd (degenerative disc disease), cervical (primary encounter diagnosis) Chronic left shoulder pain, patient to schedule visit as per follow up discussed. Mr. Sharonda Flores was advised as to contrast therapies and/or to take analgesics/anti-inflammato anjelica as needed and all contraindications were reviewed. OBJECTIVE: Mr. Sharonda Flores is a pleasant 69 year old in no apparent distress. Gen:There were no vitals taken for this visit. nl development, obese, no deformities ENT: Normocephalic, normal hearing, moist mucosa CV: Pulses:Radial= 2+ and symmetric, capillary refill < 2 secs, no peripheral edema/varicosities Skin: no rash, bruising or lesions. Good turgor. Psych: cooperative and appropriate, alert and oriented x 3, good mood and affect. Musculoskeletal: Reduced range of motion of the cervical spine without pain. Spurling signs are negative. No atrophy of the deltoid and shoulder musculature. Left shoulder is tender to palpation over the SC joint, clavicle and AC joint. mild tenderness to palpation over the posterior shoulder, non tender at the anterior lateral corner of the shoulder and greater tuberosity. Non tender at the bicipital groove and coracoid. Active range of motion is limited by chest wall pain. negative Neer and positive Baumann impingement signs. Strength testing not preformed. Subjective numbness in the left index finger. Imaging: IMPRESSION: Sclerotic appearance of the odontoid process of C2. Etiology uncertain. This can be due to previous trauma. Clinical correlation Security Business Analyst: BETTY Transcribe Date/Time: Aug 12 2024 1:43P Dictated by : ERICA LOPEZ DO This examination was interpreted and the report reviewed and electronically signed by: ERIAC LOPEZ DO on Aug 12 2024 1:45PM EST Results-Findings * * *Final Report* * * DATE OF EXAM: Aug 12 2024 12:23PM [id number] - XR CERVICAL 4V AP/LAT/OBL / PROCEDURE REASON: DDD (degenerative disc disease), cervical * * * * Physician Interpretation * * * * Cervical spine: HISTORY: Indication: DDD (degenerative disc disease), cervical PT STATES LEFT SHOULDER PAIN WITHOUT INJURY PT STATES LEFT SHOULDER PAIN WITHOUT INJURY TECHNIQUE: Views obtained: XR CERVICAL 4V AP/LAT/OBL Comparison: None. RESULT: Findings: There are sclerotic appearance of the odontoid noted. Disk spaces: Well-preserved. Spine alignment: The vertebra are in good alignment. No fractures or dislocations are seen. IMPRESSION: Findings as discussed under Results.. Security Business Analyst: BETTY Transcribe Date/Time: Aug 12 2024 1:42P (more content not included)... Normal [facility] XR CERVICAL 4V AP/LAT/OBLon 08-12-2024 XR CERVICAL 4V AP/LAT/OBL * * *Final Report* * * DATE OF EXAM: Aug 12 2024 12:23PM [id number] - XR CERVICAL 4V AP/LAT/OBL / PROCEDURE REASON: DDD (degenerative disc disease), cervical * * * * Physician Interpretation * * * * Cervical spine: HISTORY: Indication: DDD (degenerative disc disease), cervical PT STATES LEFT SHOULDER PAIN WITHOUT INJURY PT STATES LEFT SHOULDER PAIN WITHOUT INJURY TECHNIQUE: Views obtained: XR CERVICAL 4V AP/LAT/OBL Comparison: None. RESULT: Findings: There are sclerotic appearance of the odontoid noted. Disk spaces: Well-preserved. Spine alignment: The vertebra are in good alignment. No fractures or dislocations are seen. IMPRESSION: Sclerotic appearance of the odontoid process of C2. Etiology uncertain. This can be due to previous trauma. Clinical correlation Security Business Analyst: BETTY Transcribe Date/Time: Aug 12 2024 1:43P Dictated by : ERICA LOPEZ DO This examination was interpreted and the report reviewed and electronically signed by: ERICA LOPEZ DO on Aug 12 2024 1:45PM EST [id number] Normal [facility] XR Cervical spine AP and Lat eral and obliqueon 08-12-2024 IMPRESSION: Sclerotic appearance of the odontoid process of C2. Etiology uncertain. This can be due to previous trauma. Clinical correlation Security Business Analyst: [facility]fo Transcribe Date/Time: Aug 12 2024 1:43P Dictated by : ERICA LOPEZ DO This examination was interpreted and the report reviewed and electronically signed by: ERICA LOPEZ DO on Aug 12 2024 1:45PM EST DIVISION OF RADIOLOGY * * *Final Report* * * DATE OF EXAM: Aug 12 2024 12:23PM [id number] - XR CERVICAL 4V AP/LAT/OBL / PROCEDURE REASON: DDD (degenerative disc disease), cervical * * * * Physician Interpretation * * * * Cervical spine: HISTORY: Indication: DDD (degenerative disc disease), cervical PT STATES LEFT SHOULDER PAIN WITHOUT INJURY PT STATES LEFT SHOULDER PAIN WITHOUT INJURY TECHNIQUE: Views obtained: XR CERVICAL 4V AP/LAT/OBL Comparison: None. RESULT: Findings: There are sclerotic appearance of the odontoid noted. Disk spaces: Well-preserved. Spine alignment: The vertebra are in good alignment. No fractures or dislocations are seen. DIVISION OF RADIOLOGY [facility] * * *Final Report* * * DATE OF EXAM: Aug 12 2024 12:23PM [id number] - XR CERVICAL 4V AP/LAT/OBL / PROCEDURE REASON: DDD (degenerative disc disease), cervical * * * * Physician Interpretation * * * * Cervical spine: HISTORY: Indication: DDD (degenerative disc disease), cervical PT STATES LEFT SHOULDER PAIN WITHOUT INJURY PT STATES LEFT SHOULDER PAIN WITHOUT INJURY TECHNIQUE: Views obtained: XR CERVICAL 4V AP/LAT/OBL Comparison: None. RESULT: Findings: There are sclerotic appearance of the odontoid noted. Disk spaces: Well-preserved. Spine alignment: The vertebra are in good alignment. No fractures or dislocations are seen. IMPRESSION IMPRESSION: Sclerotic appearance of the odontoid process of C2. Etiology uncertain. This can be due to previous trauma. Clinical correlation Security Business Analyst: BETTY Transcribe Date/Time: Aug 12 2024 1:43P Dictated by : ERICA LOPEZ DO This examination was interpreted and the report reviewed and electronically signed by: ERICA LOPEZ DO on Aug 12 2024 1:45PM [facility] Radiology Study observation (narrative) [facility] XR Cervical spine AP and Lat eral and obliqueOrdered By: [facility] Provider on 08-12-2024 [facility] XR SHLDR >/=3V AP/LIZBET AP/OTH R LTon 08-12-2024 XR SHLDR >/=3V AP/LIZBET AP/OTHR LT * * *Final Report* * * DATE OF EXAM: Aug 12 2024 11:00AM [id number] - XR SHLDR >/=3V AP/LIZBET AP/OTHR LT / PROCEDURE REASON: Pain * * * * Physician Interpretation * * * * EXAM(s): XR SHLDR >/=3V AP/LIZBET AP/OTHR LT EXAM DATE/TIME: 08/12/2024 11:00 AM HISTORY: 69 years old Clinical information: Pain PT STATES LEFT SHOULDER PAIN NO INJURY TECHNIQUE: Images: XR SHLDR >/=3V AP/LIZBET AP/OTHR LT Comparison: None. RESULT: Findings: The AC joint is well maintained.. The glenohumeral joint is well maintained. The acromiohumeral interval appears mildly decreased IMPRESSION: Findings as discussed under Results.. Security Business Analyst: BETTY Transcribe Date/Time: Aug 12 2024 1:42P Dictated by : ERICA LOPEZ DO This examination was interpreted and the report reviewed and electronically signed by: ERICA LOPEZ DO on Aug 12 2024 1:43PM EST [id number] Normal [facility] XR Shoulder - left 3 Viewson 08-12-2024 IMPRESSION: Findings as discussed under Results.. Security Business Analyst: PSC[facility]ulfo Transcribe Date/Time: Aug 12 2024 1:42P Dictated by : ERICA LOPEZ DO This examination was interpreted and the report reviewed and electronically signed by: ERICA LOPEZ DO on Aug 12 2024 1:43PM EST DIVISION OF RADIOLOGY * * *Final Report* * * DATE OF EXAM: Aug 12 2024 11:00AM [id number] - XR SHLDR >/=3V AP/LIZBET AP/OTHR LT / PROCEDURE REASON: Pain * * * * Physician Interpretation * * * * EXAM(s): XR SHLDR >/=3V AP/LIZBET AP/OTHR LT EXAM DATE/TIME: 08/12/2024 11:00 AM HISTORY: 69 years old Clinical information: Pain PT STATES LEFT SHOULDER PAIN NO INJURY TECHNIQUE: Images: XR SHLDR >/=3V AP/LIZBET AP/OTHR LT Comparison: None. RESULT: Findings: The AC joint is well maintained.. The glenohumeral joint is well maintained. The acromiohumeral interval appears mildly decreased DIVISION OF RADIOLOGY Provider, [facility] - 08/12/2024 * * *Final Report* * * DATE OF EXAM: Aug 12 2024 11:00AM [id number] - XR SHLDR >/=3V AP/LIZBET AP/OTHR LT / PROCEDURE REASON: Pain * * * * Physician Interpretation * * * * EXAM(s): XR SHLDR >/=3V AP/LIZBET AP/OTHR LT EXAM DATE/TIME: 08/12/2024 11:00 AM HISTORY: 69 years old Clinical information: Pain PT STATES LEFT SHOULDER PAIN NO INJURY TECHNIQUE: Images: XR SHLDR >/=3V AP/LIZBET AP/OTHR LT Comparison: None. RESULT: Findings: The AC joint is well maintained.. The glenohumeral joint is well maintained. The acromiohumeral interval appears mildly decreased IMPRESSION IMPRESSION: Findings as discussed under Results.. Security Business Analyst: BETTY Transcribe Date/Time: Aug 12 2024 1:42P Dictated by : ERICA LOPEZ DO This examination was interpreted and the report reviewed and electronically signed by: ERICA LOPEZ DO on Aug 12 2024 1:43PM EST [facility] Radiology Study observation (narrative) [facility] XR Shoulder - left 3 ViewsOr dered By: Candido Provider on 08-12-2024 [facility] Progress Noteon 08-08-2024 Progress Note 08/08/24 1419 BPCI Late Drop? Program late drop? No BPCI Outreach Assessment Selection Which outreach assessment are you completing? 7 Day BPCI - 7 Day Outreach Did patient answer phone call? Yes Have you experienced any issues, decline or backsliding in your condition? No Do you have any question on managing your condition? Yes (Patient concern for episode of CP and increased BP CTS aware) Any issues with scheduling your follow up appointment with your provider? No (08/14/24- CTS) Do you have any issues with Transportation to your appointments? No (Not driving at this time finds transportation to MD visits) Do you feel there are any barriers to you progressing toward your post d/c goals? Yes (Chronic left shoulder pain- referral to [facility] orthopedics) Are you missing any Post discharge Services? No Any issues with the services provided? No Are there any additional items you need or questions in your condition that you need clarified? No Educational and general instructions provided: Medication Adherence;S/S Fluid Overload;Daily weights;Low sodium diet;S/S infection;Fall precautions;When to call MD;When to return to the ED Have you had any thoughts of returning to the hospital/SNF? No Reminded patient about 30 day window to re-admit to SNF/HHC if needed. Done EMR reviewed. Patient enrolled in [facility] 90-day BPCI Program post-hospital discharge 07/31/24 -Dx: s/p CABG x3 (GREY-LAD, SVG-DIAG, SVG-PDA) with Dr. Martinez, LAD Endarterectomy, [facility], ZARI (discharge summary copied below). CM to follow 90 days post hospital-discharge. 7-day post hospital discharge outreach made introduced self and role to patient. Patient reports has some pain when doing things for example gave was vacuuming CM advised shouldn't be vacuuming at this time, lifting, or using arms to get up. Patient reports wasn't told he couldn't do house work was only told to not lift anything heavier then agallon of milk. CM reinforced sternal precautions, discharge instructions, and importance of following patient verbalizes understanding and will follow. Patient still not driving he believes all his pain is from his on going left shoulder pain which Dr. Martinez sent a referral to [facility]. Patient active with [facility] recent call 08/06/24 to CTS concerned for increased blood pressure and an episode of sharp chest pain (note copied below). Patient was not regularly taking BP at home instructed to do so and is now doing along with keeping a log of any abnormal episodes that occur. Patient verbalizes he is aware to call office if has any more sharp chest pain episodes. Patient appreciative for call. Future outreach scheduled. Telephone 08/06/2024 [facility] Cardiovascular Thoracic Surgery - Sadia Martinez, DO Cardiothoracic Surgery Release of Information Reason for call All Conversations: Release of Information (Oldest Message First)August 06, 2024 Nasra WHITEHEAD 08/06/24 2:40 PM Note Pt s/p CABG x3, LAD endarterectomy ZE, ZARI on 07/25/[address] Martinez. Received call from home health nurse Lisbeth reporting that patient's BP was elevated today, 151/75. Spoke with patient who states he has not been checking his BP since discharge, so no log to review. Patient reports he is taking all medications as prescribed, denies any symptoms at this time, but wanted to report that he had an episode of stabbing midsternal chest pain yesterday that lasted for a few seconds and resolved on its own. Pt states he was sitting at the time this occurred. Patient is scheduled for post op appt on 08/14/24 with Gerri Flowers APRN-DISASTER RECOVERY MANAGER. Advised patient to start keeping a BP log, and that he should go to the ER/call 911 or call the office if it occurs again, or any new symptoms appear. Patient is asking if he should be seen for a sooner appointment, or keep scheduled appt. Any further instruction or orders to add? RK 08/06/24 2:40 PM Nasra Alfonso routed this conversation to [facility] Chiquis Pool August 07, 2024 SESAR Kelly CNP 08/07/24 1:43 PM Note Keep scheduled appointment. Agree with instructions given. J [facility] 36on 08-07-2024 36 Message released to patient as written. Patient's further questions if applicable: N/A Were all questions from office addressed or relayed to the patient from encounter: Yes [facility] 36 Keep scheduled appointment. Agree with instructions given. [facility] 36on 08-06-2024 36 Pt s/p CABG x3, LAD endarterectomy ZARI KUNZ on 07/25/[address] Martinez. Received call from home health nurse Lisbeth reporting that patient's BP was elevated today, 151/75. Spoke with patient who states he has not been checking his BP since discharge, so no log to review. Patient reports he is taking all medications as prescribed, denies any symptoms at this time, but wanted to report that he had an episode of stabbing midsternal chest pain yesterday that lasted for a few seconds and resolved on its own. Pt states he was sitting at the time this occurred. Patient is scheduled for post op appt on 08/14/24 with RAMAN Roper. Advised patient to start keeping a BP log, and that he should go to the ER/call 911 or call the office if it occurs again, or any new symptoms appear. Patient is asking if he should be seen for a sooner appointment, or keep scheduled appt. Any further instruction or orders to add? [facility] Progress Noteon 08-05-2024 Progress Note EMR reviewed. Sharon grimes enrolled in [facility] Cardiac 90-day BPCI Program post-hospital discharge 07/31/24 -Dx: s/p CABG x3 (GREY-LAD, SVG-DIAG, SVG-PDA) with Dr. Martinez, LAD Endarterectomy, LEVH, ZARI (discharge summary copied below). CM to follow 90 days post hospital-discharge. 72-HR post hospital discharge outreach made unable to reach LVM. Future outreach scheduled. -Amio taper for brief episodes of afib. -Aspirin, statin and BB. -Plavix for LAD endarterectomy. -Oxy for 7 days, robaxin for 10 days. -External referral to Ortho for shoulder pain. Yara Flowers APRN - DISASTER RECOVERY MANAGER Nurse Practitioner Cardiothoracic Surgery Discharge Summary Cosign Needed Date of Service: 07/31/2024 8:40 AM Cosign Needed Discharge Summary: Cardiothoracic Surgery Sharonda Flores, 69 y.o., 1955 ADMIT DATE: 07/25/2024 DISCHARGE DATE: 07/31/2024 VISIT STATUS: Admission CODE STATUS: Full Code DISCHARGING SURGEON: Brooklynn Martinez DO, Office Number: [phone] DISCHARGE DIAGNOSES: CAD s/p multiple PCI's, now s/p CABG HTN HLD PAD Adenocarcinoma s/p RUL lobectomy (02/17/24) Former smoker Psoriasis Post operative Pulm Management: Normal Post-operative Course Post-operative Atrial Fibrillation: [x]Yes [] No Acute blood loss anemia/consumptive coagulopathy -Amio taper for brief episodes of afib. -Aspirin, statin and BB. -Plavix for LAD endarterectomy. -Oxy for 7 days, robaxin for 10 days. -External referral to Ortho for shoulder pain. BMI CLASSIFICATION:Overweight (BMI 25.0-29.9) TREATMENT TEAM: Primary Care Physician: Tima Tello MD Business Division Chair: Dr. Tineo SURGERY: 07/25/24: Dr. Martinez- CABG x3 (GREY-LAD, SVG-Diag, SVG-PDA), LAD endarterectomy LEVH, ZARI HOSPITAL COURSE: Sharonda Flores is a 68 y.o. male referred by Dr. Tineo for CABG. Patient's PMHx includes CAD (s/p several PCI, most recently 2011 - LAD, LCx, distal RCA with known PHYSICIAN NON INVASIVE CARDIOLOGIST D2), preserved LVEF (65%), HTN, HLD, PAD (follows with vascular at [facility]), prior tobacco use, pulmonary nodules, adenocarcinoma s/p RUL lobectomy 01/2024 (follows with Pulmonology), and psoriasis. Patient had presented to [facility] with a sharp pain in the center of his chest with left shoulder ache. He had associated diaphoresis and nausea. EKG was normal.Troponin was WNL. Discharged and advised to follow up with Cardiology. A stress echocardiogram was ordered and completed on 06/25/24 which was abnormal. He then underwent a heart catheterization on 07/08/24 which demonstrated multivessel CAD. Seen by Dr. Martinez in OP setting, agreeable to CABG, scheduled for 07/25/24. Patient extubated as expected post-op, was on pressor support and transfused blood products. Weaned off of pressors by POD#1. Had brief runs of atrial fibrillation, loaded with amio without re-occurrence. Patient progressed well and was able to DC home on POD#06. DIAGNOSTICS: BP 114/53 (BP Location: Left arm, Patient Position: Lying) Pulse 70 Temp 36.1 ?C (97 ?F) (Temporal) Resp 16 Ht 5' 5 (1.651 m) Comment: per pt and chart Wt 158 lb (71.7 kg) SpO2 98% BMI 26.29 kg/m? Recent Labs 07/29/24 0200 07/29/24 0302 07/29/24 0526 07/30/24 0659 07/31/24 0227 CREATININE 0.81 -- -- 0.82 0.96 HGB -- 8.4* -- 9.6* 9.3* PLT -- 94* -- 153 166 WBC -- 4.9 -- 5.0 5.2 NA 141 -- -- 139 136 K 3.4* -- 4.0 3.2* 3.3* DISCHARGE MEDICATIONS: Medication List START taking these medications acetaminophen 500 MG tablet Commonly known as: Tylenol Take 2 tablets (1,000 mg) by mouth 3 times daily. amiodarone 200 MG tablet Commonly known as: Pacerone Take 2 tablets (400 mg) by mouth 2 times daily for 10 days, THEN 2 tablets (400 mg) daily for 7 days, THEN 1 tablet (200 mg) daily for 7 days. Start taking on: July 31, 2024 clopidogrel 75 MG tablet Commonly known as: Plavix Take 1 tablet (75 mg) by mouth daily. Methocarbamol 1000 MG tablet Take 1,000 mg by mouth every 8 hours as needed for muscle spasms for up to 14 days. metoprolol tartrate 25 MG tablet Commonly known as: Lopressor Take 1 tablet (25 mg) by mouth 2 times daily. oxyCODONE 5 MG immediate release tablet Commonly known as: Roxicodone Take 1 tablet (5 mg) by mouth every 6 hours as needed for severe pain (7-10) for up to 7 days. CHANGE how you take these medications atorvastatin 80 MG tablet Commonly known as: Lipitor Take 1 tablet (80 mg) by mouth every evening. What changed: when to take this CONTINUE taking these medications aspirin 81 MG EC tablet ezetimibe 10 MG tablet Commonly known as: Zetia STOP taking these medications carvedilol 6.25 MG tablet Commonly known as: Coreg isosorbide mononitrate ER 30 MG 24 hr tablet Commonly known as: Imdur mupirocin 2 % ointment Commonly known as: Bactroban nitroglycerin 0.4 MG SL tablet Commonly known as: Nitrostat Where to Get Your Medications These medications were (more content not included)... [facility] [id number] 08-01-2024 [id number] Patient Choice Patient Name: SHARONDA FLORES Date of : 1955 [facility] 36on 08-01-2024 36 Spoke to pharmacy an d pt. Reviewed medication list. All questions answered. [facility] Progress Noteon 08-01-2024 Progress Note EMR reviewed. Sharon grimes enrolled in [facility]ulatory Cardiac 90-day BPCI Program post-hospital discharge 07/31/24 -Dx: s/p CABG x3 (GREY-LAD, SVG-DIAG, SVG-PDA) with Dr. Martinez, LAD Endarterectomy, ZE, ZARI (discharge summary copied below). CM to follow 90 days post hospital-discharge. 72-HR post discharge outreach scheduled. -Amio taper for brief episodes of afib. -Aspirin, statin and BB. -Plavix for LAD endarterectomy. -Oxy for 7 days, robaxin for 10 days. -External referral to Ortho for shoulder pain. Yara Flowers APRN - DISASTER RECOVERY MANAGER Nurse Practitioner Cardiothoracic Surgery Discharge Summary Cosign Needed Date of Service: 07/31/2024 8:40 AM Cosign Needed Discharge Summary: Cardiothoracic Surgery Sharonda Flores, 69 y.o., 1955 ADMIT DATE: 07/25/2024 DISCHARGE DATE: 07/31/2024 VISIT STATUS: Admission CODE STATUS: Full Code DISCHARGING SURGEON: Brooklynn Martinez DO, Office Number: [phone] DISCHARGE DIAGNOSES: CAD s/p multiple PCI's, now s/p CABG HTN HLD PAD Adenocarcinoma s/p RUL lobectomy (02/17/24) Former smoker Psoriasis Post operative Pulm Management: Normal Post-operative Course Post-operative Atrial Fibrillation: [x]Yes [] No Acute blood loss anemia/consumptive coagulopathy -Amio taper for brief episodes of afib. -Aspirin, statin and BB. -Plavix for LAD endarterectomy. -Oxy for 7 days, robaxin for 10 days. -External referral to Ortho for shoulder pain. BMI CLASSIFICATION:Overweight (BMI 25.0-29.9) TREATMENT TEAM: Primary Care Physician: Tima Tello MD Business Division Chair: Dr. Tineo SURGERY: 07/25/24: Dr. Martinez- CABG x3 (GREY-LAD, SVG-Diag, SVG-PDA), LAD endarterectomy [facility] ZARI HOSPITAL COURSE: Sharonda Flores is a 68 y.o. male referred by Dr. Tineo for CABG. Patient's PMHx includes CAD (s/p several PCI, most recently 2011 - LAD, LCx, distal RCA with known PHYSICIAN NON INVASIVE CARDIOLOGIST D2), preserved LVEF (65%), HTN, HLD, PAD (follows with vascular at [facility]), prior tobacco use, pulmonary nodules, adenocarcinoma s/p RUL lobectomy 01/2024 (follows with Pulmonology), and psoriasis. Patient had presented to [facility] ED with a sharp pain in the center of his chest with left shoulder ache. He had associated diaphoresis and nausea. EKG was normal.Troponin was WNL. Discharged and advised to follow up with Cardiology. A stress echocardiogram was ordered and completed on 06/25/24 which was abnormal. He then underwent a heart catheterization on 07/08/24 which demonstrated multivessel CAD. Seen by Dr. Martinez in OP setting, agreeable to CABG, scheduled for 07/25/24. Patient extubated as expected post-op, was on pressor support and transfused blood products. Weaned off of pressors by POD#1. Had brief runs of atrial fibrillation, loaded with amio without re-occurrence. Patient progressed well and was able to DC home on POD#06. DIAGNOSTICS: BP 114/53 (BP Location: Left arm, Patient Position: Lying) Pulse 70 Temp 36.1 ?C (97 ?F) (Temporal) Resp 16 Ht 5' 5 (1.651 m) Comment: per pt and chart Wt 158 lb (71.7 kg) SpO2 98% BMI 26.29 kg/m? Recent Labs 07/29/24 0200 07/29/24 0302 07/29/24 0526 07/30/24 0659 07/31/24 0227 CREATININE 0.81 -- -- 0.82 0.96 HGB -- 8.4* -- 9.6* 9.3* PLT -- 94* -- 153 166 WBC -- 4.9 -- 5.0 5.2 NA 141 -- -- 139 136 K 3.4* -- 4.0 3.2* 3.3* DISCHARGE MEDICATIONS: Medication List START taking these medications acetaminophen 500 MG tablet Commonly known as: Tylenol Take 2 tablets (1,000 mg) by mouth 3 times daily. amiodarone 200 MG tablet Commonly known as: Pacerone Take 2 tablets (400 mg) by mouth 2 times daily for 10 days, THEN 2 tablets (400 mg) daily for 7 days, THEN 1 tablet (200 mg) daily for 7 days. Start taking on: July 31, 2024 clopidogrel 75 MG tablet Commonly known as: Plavix Take 1 tablet (75 mg) by mouth daily. Methocarbamol 1000 MG tablet Take 1,000 mg by mouth every 8 hours as needed for muscle spasms for up to 14 days. metoprolol tartrate 25 MG tablet Commonly known as: Lopressor Take 1 tablet (25 mg) by mouth 2 times daily. oxyCODONE 5 MG immediate release tablet Commonly known as: Roxicodone Take 1 tablet (5 mg) by mouth every 6 hours as needed for severe pain (7-10) for up to 7 days. CHANGE how you take these medications atorvastatin 80 MG tablet Commonly known as: Lipitor Take 1 tablet (80 mg) by mouth every evening. What changed: when to take this CONTINUE taking these medications aspirin 81 MG EC tablet ezetimibe 10 MG tablet Commonly known as: Zetia STOP taking these medications carvedilol 6.25 MG tablet Commonly known as: Coreg isosorbide mononitrate ER 30 MG 24 hr tablet Commonly known as: Imdur mupirocin 2 % ointment Commonly known as: Bactroban nitroglycerin 0.4 MG SL tablet Commonly known as: Nitrostat Where to Get Your Medications These medications were sent to [facility]/pharmacy #[id number] - [place], [place] - [address] (more content not included)... [facility] 3007-31-2024 30 Problem: Pain - Adul t Goal: Verbalizes/displays adequate comfort level or baseline comfort level Outcome: Completed Problem: Safety - Adult Goal: Free from fall injury Outcome: Completed Problem: Discharge Planning Goal: Discharge to home or other facility with appropriate resources Outcome: Completed Problem: Chronic Conditions and Co-morbidities Goal: Patient's chronic conditions and co-morbidity symptoms are monitored and maintained or improved Outcome: Completed Problem: Knowledge Deficit Goal: Patient/family/caregiver demonstrates understanding of disease process, treatment plan, medications, and discharge instructions Outcome: Completed Problem: Potential for Compromised Skin Integrity Goal: Skin Integrity is Maintained or Improved Outcome: Completed Goal: Nutritional status is improving Outcome: Completed Problem: Urinary Incontinence Goal: Perineal skin integrity is maintained or improved Outcome: Completed Problem: Problem Interventions Goal: Assess Nutritional Intake Outcome: Completed [facility] [id number] 07-31-2024 [id number] [facility] notified of discharge home today. [facility] 36on 07-31-2024 36 Name of caller reque sting page:Paul Phone Number of caller: [phone] Facility requesting page: [facility] Reason for Page: methocarbamol not available in 1000mg Provider paged: heath Segura Name of paged provider: ct surgery Page Placed to #: superintendent landfill operations finder Time Page was sent or provider contacted: 12:22 pm Page Content: Paul with [facility] pharmacy called stating the Methocarbamol 1000 mg is not available. He states the 500 mg is. He is asking for a verbal ok to switch it to the 500 mg. Please call Paul at #[phone]. Thank you. Normal [facility] BASIC METABOLIC PANELon 01-0 Anion gap [Moles/Vol] 11 mmol/L Normal 3-13 [facility] Comment on above: Performed By: #### L AB103, LAB15 ####Scientific Illustrator: MARILEE ALVARADO ([id number])[facility])[address] [place] [address] Calcium [Mass/Vol] 9.3 mg/dL Normal 8.8-10.0 [facility] Comment on above: Performed By: #### L AB103, LAB15 ####Scientific Illustrator: MARILEE ALVARADO ([id number])[facility])[address] [place] [address] Chloride [Moles/Vol] 97 mmol/L Low 98-107 [facility] Comment on above: Performed By: #### L AB103, LAB15 ####Scientific Illustrator: MARILEE ALVARADO ([id number])[facility])[address] [place] [address] CO2 [Moles/Vol] 28 mmol/L Normal 23-31 [facility] Comment on above: Performed By: #### L AB103, LAB15 ####Scientific Illustrator: MARILEE ALVARADO ([id number])[facility])[address] [place] [address] Creatinine [Mass/Vol] 0.96 mg/dL Normal 0.72-1.25 [facility] Comment on above: Performed By: #### L AB103, LAB15 ####Scientific Illustrator: MARILEE ALVARADO ([id number])[facility])[address] [place] [address] [place] GLOMERULAR FILTRATION RATE ML/MIN/1.73 SQ M.PREDICTED 85.6 mL/min/1.73m*2 Normal >60.0 [facility] Comment on above: Result Comment: Calc ulation based on the Chronic Kidney Disease Epidemiology Collaboration (CKD-EPI) equation refit without adjustment for race Performed By: #### L 103, LAB15 ####Scientific Illustrator: MARILEE ALVARADO ([id number])[facility])[address] [place] [address] Glucose [Mass/Vol] 130 mg/dL High 82-115 [facility] Comment on above: Performed By: #### L AB103, LAB15 ####Scientific Illustrator: MARILEE ALVARADO ([id number])[facility])[address] [place] [address] Potassium [Moles/Vol] 3.3 mmol/L Low 3.5-5.1 [facility] Comment on above: Result Comment: [facility] potassium values may be up to 0.5 mmol/L lower than serum values. Performed By: #### L 103, LAB15 ####Scientific Illustrator: MARILEE ALVARADO ([id number])[facility] ([facility])[address] [place] [address] Sodium [Moles/Vol] 136 mmol/L Normal 136-145 [facility] Comment on above: Performed By: #### L 103, LAB15 ####Scientific Illustrator: MARILEE ALVARADO ([id number])[facility])[address] [place] [address] Urea nitrogen [Mass/Vol] 22 mg/dL Normal 9-23 [facility] Comment on above: Performed By: #### L AB103, LAB15 ####Scientific Illustrator: MARILEE ALVARADO ([id number])[facility])[address] [place] [address] Basic metabolic 1998 panelon 07-31-2024 Anion gap [Moles/Vol] 11 mmol/L 3 - 13 mmol/L [facility] Calcium [Mass/Vol] 9.3 mg/dL 8.8 - 10. 0 mg/dL [facility] Chloride [Moles/Vol] 97 mmol/L Low 98 - 10 7 mmol/L [facility] CO2 [Moles/Vol] 28 mmol/L 23 - 31 mmol/L [facility] Creatinine [Mass/Vol] 0.96 mg/dL 0.72 - 1.25 mg/dL [facility] GFR/1.73 sq M.predicted (S/P/Bld) [Vol rate/Area] 85.6 mL/min - PINF [facility] Comment on above: Calculation based on the Chronic Kidney Disease Epidemiology Collaboration (CKD-EPI) equation refit without adjustment for race Glucose [Mass/Vol] 130 mg/dL High 82 - 115 mg/dL [facility] Interpretation and review of laboratory results Abnormal [facility] Potassium [Moles/Vol] 3.3 mmol/L Low 3.5 - 5.1 mmol/L [facility] Comment on above: Plasma potassium ivan ues may be up to 0.5 mmol/L lower than serum values. Sodium [Moles/Vol] 136 mmol/L 136 - 145 mmol/L [facility] Urea nitrogen [Mass/Vol] 22 mg/dL 9 - 23 mg/dL [facility] CBC (HEMOGRAM)on 07-31-2024 Erythrocyte distribution width (RBC) [Ratio] 13.9 % Normal 11.5-15.0 [facility] Comment on above: Performed By: #### L AB294 ####Scientific Illustrator: MARILEE ALVARADO ([id number])[address] Hematocrit (Bld) [Volume fraction] 27.5 % Low 40.0-52.0 [facility] Comment on above: Performed By: #### L AB294 ####Scientific Illustrator: MARILEE ALVARADO ([id number])[facility])[address] [place] [address] Hemoglobin (Bld) [Mass/Vol] 9.3 g/dL Low 13.0-18.0 [facility] Comment on above: Performed By: #### L AB294 ####Scientific Illustrator: MARILEE ALVARADO ([id number])[facility])[address] [place] [address] MCH (RBC) [Entitic mass] 28.3 pg Normal 26.0-34.0 [facility] Comment on above: Performed By: #### L AB294 ####Scientific Illustrator: MARILEE ALVARADO ([id number])[facility])[address] [place] [address] MCHC 33.8 % Normal 30.5-36.0 [facility] Comment on above: Performed By: #### L AB294 ####Scientific Illustrator: MARILEE ALVARADO ([id number])[facility])[address] [place] [address] MCV (RBC) [Entitic vol] 83.6 fL Normal 77.0-99.0 [facility] Comment on above: Performed By: #### L AB294 ####Scientific Illustrator: MARILEE ALVARADO ([id number])[facility])[address] [place] [address] Platelet mean volume (Bld) [Entitic vol] 11.4 fL Normal 9.0-12.7 [facility] Comment on above: Performed By: #### L AB294 ####Scientific Illustrator: MARILEE ALVARADO ([id number])[facility] ([facility])[address] [place] [address] Platelets (Bld) [#/Vol] 166 10*3/uL Normal 140-440 [facility] Comment on above: Performed By: #### L AB294 ####Scientific Illustrator: MARILEE ALVARADO ([id number])[facility])[address] [place] [address] RBC (Bld) [#/Vol] 3.29 10*6/uL Low 4.40-5.90 [facility] Comment on above: Performed By: #### L AB294 ####Scientific Illustrator: MARILEE ALVARADO ([id number])[facility])[address] [place] [address] WBC (Bld) [#/Vol] 5.2 10*3/uL Normal 3.6-10.7 [facility] Comment on above: Performed By: #### L AB294 ####Scientific Illustrator: MARILEE ALVARADO ([id number])[facility] ([facility])[address] [place] [address] CBC panel Auto (Bld)on 07-31 Erythrocyte distribution width (RBC) [Ratio] 13.9 % 11.5 - 15.0 % [facility] Hematocrit (Bld) [Volume fraction] 27.5 % Low 40.0 - 52.0 % [facility] Hemoglobin (Bld) [Mass/Vol] 9.3 g/dL Low 13.0 - 18.0 g/dL [facility] Interpretation and review of laboratory results Abnormal [facility] MCH (RBC) [Entitic mass] 28.3 pg 26.0 - 34.0 pg [facility] MCHC (RBC) [Mass/Vol] 33.8 % 30.5 - 36.0 % [facility] MCV (RBC) [Entitic vol] 83.6 fL 77.0 - 99.0 fL [facility] Platelet mean volume (Bld) [Entitic vol] 11.4 fL 9.0 - 12.7 fL [facility] Platelets (Bld) [#/Vol] 166 10*3/uL 140 - 440 10*3/uL [facility] RBC (Bld) [#/Vol] 3.29 10*6/uL Low 4.40 - 5.90 10*6/uL [facility] WBC (Bld) [#/Vol] 5.2 10*3/uL 3.6 - 10.7 10*3/uL [facility] - Chemistry and C hemistry - challengeon 07-31-2024 Magnesium [Mass/Vol] 1.9 mg/dL 1.6 - 2 .6 mg/dL [facility] MAGNESIUMon 07-31-2024 Magnesium [Mass/Vol] 1.9 mg/dL Normal 1.6-2.6 [facility] Comment on above: Result Comment: MIKE Carr COMMENTS: Higher values can be expected in females during menses. Performed By: #### L AB103, LAB15 ####Scientific Illustrator: MARILEE ALVARADO ([id number])[facility] [place] [address] Magnesium [Mass/Vol]on 07-31 Interpretation and review of laboratory results Normal [facility] Higher values can be expected in females during menses. [facility] No Panel Informationon 07-31 [facility] Nursing Noteon 07-31-2024 Nursing Note 1130- Discharge instructions reviewed with patient including but not limited to medications, follow up appointments, diet, limitations. Patient take by wheelchair to waiting vehicle with brother. Normal [facility] Progress Noteon 07-31-2024 Progress Note OCCUPATIONAL THERAPY [facility] Treatment Note Name/MRN: Sharonda Flores ([id number]) Date of : 1955 Age: 69 y.o. Room/Bed: T1-109/T1-109 A Discharge Recommendation: Home with assist PRN, Home with Home health OT Equipment Needed: No Prior Level of Function Prior Level of ADL Function: Independent Prior Level of Mobility: Independent; Device: None Prior Level of Transfers: Independent Assessment Pt limited with L shoulder pain/sensory issues, sternal precautions, decreased activity tolerance and living alone. Pt was ind for ADLs, transfers and mobility. Discussed higher level ADLs/IADL compensatory strategies. HHOT recommended at discharge. Subjective Pt reports L shoulder pain which increases when cold with numbness/tingling in first digit. Pt reports not being taken seriously with his concerns when addressed with Dr. Martinez. Pain: RN managing pain. 0-10 pain scale: 5/10 Location: L shoulder; increases with activity/cold Medical Precautions: No active isolations Proper PPE donned/doffed in accordance with facility standards. Fall Risk: Vicente Fall Risk Score: 35 (Medium Risk) Precautions/Restrictions: Sternal Precautions: No lifting greater than 10 lbs. Ok for modified UE precautions using Keep Your Move in the Tube technique Lines/Drains/Airways: chest tube x 1, tele, PIV, central line Family/Caregiver Present: none Objective ADLs LE Dressing: Independent, doff/don bilateral socks, pants Toileting: Independent Grooming: Independent UE Dressing: Independent LE Bathing: did not trial; educated on use of shower chair/ext tub bench for EC/fall prevention. Pt reported his stall is too small for use. Discussed/Edu on IADL strategies due to living alone: laundry within sternal precautions; transportation for follow up care, food, etc and meal prep Transfers/Mobility Sit to stand: Independent Stand to sit: Independent Toilet: Independent Sitting balance: Independent Standing balance: Independent Functional mobility: Independent Pt does not use a fww/device at baseline; no safety concerns noted. One verbal cue sternal precautions. Plan Continue acute OT per plan of care. Safety/Education Safety Safety Devices in place: All fall risk precautions in place, call light within reach, left in chair, nurse notified, and no alarms engaged upon entry Restraints: No Education Education Given To: patient Education Provided: OT Role, Plan of Care, Precautions, ADL Adaptive Strategies, Transfer Training, Energy Conservation, IADL Safety, Equipment, Fall Prevention Education, Discharge Recommendations, Benefits of Increasing Activity, and Breathing Techniques Education Method: Verbal, Demonstration, and Teach Back Barriers to Learning: None Education Outcome: Verbalized Understanding, Demonstrated Understanding, and Continued Education Needed AM-PAC AM-PAC Inpatient Daily Activity Raw Score: 23 ADL Inpatient CMS G-Code Modifier: CI Goals Patient Stated Goal: to find out why his shoulder still hurts; go home Encounter Problems Encounter Problems (Active) Balance Patient will maintain dynamic standing balance for 3-5 minutes with modified independence in order to demonstrate decreased risk of falling. (Progressing) Start: 07/28/24 Expected End: 08/25/24 Bathing Patient will utilize adaptive techniques to bathe body [place]. (Progressing) Start: 07/28/24 Expected End: 08/25/24 Encounter Problems (Resolved) Dressings Lower Extremities Patient will dress lower body [place]. (Goal Met) Start: 07/28/24 Expected End: 08/25/24 Resolved: 07/31/24 Toileting Patient will complete toileting tasks at standard toilet with modified independence. (Goal Met) Start: 07/28/24 Expected End: 08/25/24 Resolved: 07/31/24 Therapy Time Individual Co-treatment Time In 0830 Time Out 0900 Minutes 30 Timed Code Treatment Minutes: 30 Minutes (1 self 1 act) [facility] XR CHEST 1 VIEWon 07-31-2024 XR CHEST 1 VIEW Patient Name: SHARONDA FLORES : 1955 Exam Date/Time: 07/31/2024 05:41 Procedure: XR CHEST 1 VIEW Ordering Provider: GARCIA ANDREW Reason For Exam: Shortness of breath CHEST - PORTABLE: CLINICAL INDICATION: Respiratory distress for follow up TECHNIQUE: Portable AP COMPARISON: One day ago FINDINGS: Heart/Mediastinum: Unchanged Lungs/Pleura: Minor atelectasis at the left lung base. No other consolidation. Minor blunting of left costophrenic angle but the right remains sharp IMPRESSION: Probable small left pleural effusion. Atelectasis at the left base as well Report Dictated on Workstation: [email or web address] Electronically Signed By: Elijah Flynn MD Electronically Signed Date/Time: 07/31/2024 6:59 AM EST [facility] XR Chest Single viewon 07-31 Probable small left pleural effusion. Atelectasis at the left base as well Report Dictated on Workstation: [email or web address] Electronically Signed By: Elijah Flynn MD Electronically Signed Date/Time: 07/31/2024 6:59 AM [facility] Patient Name: SHARONDA FLORES : 1955 Exam Date/Time: 07/31/2024 05:41 Procedure: XR CHEST 1 VIEW Ordering Provider: GARCIA ANDREW Reason For Exam: Shortness of breath CHEST - PORTABLE: CLINICAL INDICATION: Respiratory distress for follow up TECHNIQUE: Portable AP COMPARISON: One day ago FINDINGS: Heart/Mediastinum: Unchanged Lungs/Pleura: Minor atelectasis at the left lung base. No other consolidation. Minor blunting of left costophrenic angle but the right remains sharp [facility] Elijah Flynn MD - 07/31/2024 Patient Name: SHARONDA FLORES : 1955 Exam Date/Time: 07/31/2024 05:41 Procedure: XR CHEST 1 VIEW Ordering Provider: GARCIA ANDREW Reason For Exam: Shortness of breath CHEST - PORTABLE: CLINICAL INDICATION: Respiratory distress for follow up TECHNIQUE: Portable AP COMPARISON: One day ago FINDINGS: Heart/Mediastinum: Unchanged Lungs/Pleura: Minor atelectasis at the left lung base. No other consolidation. Minor blunting of left costophrenic angle but the right remains sharp IMPRESSION: Probable small left pleural effusion. Atelectasis at the left base as well Report Dictated on Electronically Signed By: Elijah Flynn MD Electronically Signed Date/Time: 07/31/2024 6:59 AM EST [facility] Radiology Study observation (narrative) [facility] 30on 07-30-2024 30 Problem: Pain - Adul t Goal: Verbalizes/displays adequate comfort level or baseline comfort level 07/30/20241905 by Anisa Awad RN Outcome: Progressing 07/30/2024 09 by Anisa Awad RN Outcome: Progressing Problem: Safety - Adult Goal: Free from fall injury 07/30/20241905 by Anisa Awad RN Outcome: Progressing 07/30/2024 0933 by Anisa Awad RN Outcome: Progressing Problem: Discharge Planning Goal: Discharge to home or other facility with appropriate resources 07/30/20241905 by Anisa Awad RN Outcome: Progressing 07/30/2024 09 by Anisa Awad RN Outcome: Progressing Problem: Chronic Conditions and Co-morbidities Goal: Patient's chronic conditions and co-morbidity symptoms are monitored and maintained or improved 07/30/20241905 by Anisa Awad RN Outcome: Progressing 07/30/2024932 by Anisa Awad RN Outcome: Progressing Problem: Knowledge Deficit Goal: Patient/family/caregiver demonstrates understanding of disease process, treatment plan, medications, and discharge instructions 07/30/20241905 by Anisa Awad RN Outcome: Progressing 07/30/2024 09 by Anisa Awad RN Outcome: Progressing Problem: Potential for Compromised Skin Integrity Goal: Skin Integrity is Maintained or Improved 07/30/20241905 by Anisa Awad RN Outcome: Progressing 07/30/2024932 by Anisa Awad RN Outcome: Progressing Goal: Nutritional status is improving 07/30/20241905 by Anisa Awad RN Outcome: Progressing 07/30/2024 0933 by Anisa Awad RN Outcome: Progressing Problem: Urinary Incontinence Goal: Perineal skin integrity is maintained or improved 07/30/2024 190 by Anisa Awad RN Outcome: Progressing 07/30/2024 09 by Anisa Awad RN Outcome: Progressing Problem: Problem Interventions Goal: Assess Nutritional Intake 07/30/2024 190 by Anisa Awad RN Outcome: Progressing 07/30/202433 by Anisa Awad RN Outcome: Progressing Normal [facility] 30 Problem: Pain - Adul t Goal: Verbalizes/displays adequate comfort level or baseline comfort level Outcome: Progressing Problem: Safety - Adult Goal: Free from fall injury Outcome: Progressing Problem: Discharge Planning Goal: Discharge to home or other facility with appropriate resources Outcome: Progressing Problem: Chronic Conditions and Co-morbidities Goal: Patient's chronic conditions and co-morbidity symptoms are monitored and maintained or improved Outcome: Progressing Problem: Knowledge Deficit Goal: Patient/family/caregiver demonstrates understanding of disease process, treatment plan, medications, and discharge instructions Outcome: Progressing Problem: Potential for Compromised Skin Integrity Goal: Skin Integrity is Maintained or Improved Outcome: Progressing Goal: Nutritional status is improving Outcome: Progressing Problem: Urinary Incontinence Goal: Perineal skin integrity is maintained or improved Outcome: Progressing Problem: Problem Interventions Goal: Assess Nutritional Intake Outcome: Progressing Normal [facility] BASIC METABOLIC PANELon 12 Anion gap [Moles/Vol] 10 mmol/L Normal 3-13 [facility] Comment on above: Performed By: #### L AB15, [id number] ####Scientific Illustrator: MARILEE ALVARADO ([id number])[address] Calcium [Mass/Vol] 9.7 mg/dL Normal 8.8-10.0 [facility] Comment on above: Performed By: #### L AB15, [id number] ####Scientific Illustrator: MARILEE ALVARADO ([id number])[facility])[address] [place] [address] Chloride [Moles/Vol] 99 mmol/L Normal 98-107 [facility] Comment on above: Performed By: #### L AB15, [id number] ####Scientific Illustrator: MARILEE [id number])[facility] ([facility])[address] [place] [address] CO2 [Moles/Vol] 30 mmol/L Normal 23-31 [facility] Comment on above: Performed By: #### L AB15, [id number] ####Scientific Illustrator: MARILEE ALVARADO ([id number])[facility])[address] [place] [address] Creatinine [Mass/Vol] 0.82 mg/dL Normal 0.72-1.25 [facility] Comment on above: Performed By: #### L AB15, [id number] ####Scientific Illustrator: MARILEE ALVARADO ([id number])[facility])[address] [place] [address] GLOMERULAR FILTRATION RATE ML/MIN/1.73 SQ M.PREDICTED >90.0 Normal >60.0 [facility] Comment on above: Result Comment: Calc ulation based on the Chronic Kidney Disease Epidemiology Collaboration (CKD-EPI) equation refit without adjustment for race Performed By: #### L AB15, [id number] ####Scientific Illustrator: MARILEE ALVARADO ([id number])[facility] ([facility])[address] [place] [address] [place] Glucose [Mass/Vol] 101 mg/dL Normal 82-115 [facility] Comment on above: Performed By: #### L AB15, [id number] ####Scientific Illustrator: MARILEE ALVARADO ([id number])[facility])[address] [place] [address] Potassium [Moles/Vol] 3.2 mmol/L Low 3.5-5.1 [facility] Comment on above: Result Comment: [facility] potassium values may be up to 0.5 mmol/L lower than serum values. Performed By: #### L AB15, [id number] ####Scientific Illustrator: MARILEE ALVARADO ([id number])[facility] ([facility])[address] [place] [address] [place] Sodium [Moles/Vol] 139 mmol/L Normal 136-145 [facility] Comment on above: Performed By: #### L AB15, [id number] ####Scientific Illustrator: MARILEE ALVARADO ([id number])[facility])[address] [place] [address] Urea nitrogen [Mass/Vol] 25 mg/dL High 9-23 [facility] Comment on above: Performed By: #### L AB15, [id number] ####Scientific Illustrator: MARILEE ALVARADO ([id number])[facility])[address] [place] [address] Basic metabolic 1998 panelon 07-30-2024 Anion gap [Moles/Vol] 10 mmol/L 3 - 13 mmol/L [facility] Calcium [Mass/Vol] 9.7 mg/dL 8.8 - 10. 0 mg/dL [facility] Chloride [Moles/Vol] 99 mmol/L 98 - 10 7 mmol/L [facility] CO2 [Moles/Vol] 30 mmol/L 23 - 31 mmol/L [facility] Creatinine [Mass/Vol] 0.82 mg/dL 0.72 - 1.25 mg/dL [facility] GFR/1.73 sq M.predicted (S/P/Bld) [Vol rate/Area] - PINF [facility] Comment on above: Calculation based on the Chronic Kidney Disease Epidemiology Collaboration (CKD-EPI) equation refit without adjustment for race Glucose [Mass/Vol] 101 mg/dL 82 - 115 mg/dL [facility] Interpretation and review of laboratory results Abnormal [facility] Potassium [Moles/Vol] 3.2 mmol/L Low 3.5 - 5.1 mmol/L [facility] Comment on above: Plasma potassium ivan ues may be up to 0.5 mmol/L lower than serum values. Sodium [Moles/Vol] 139 mmol/L 136 - 145 mmol/L [facility] Urea nitrogen [Mass/Vol] 25 mg/dL High 9 - 23 mg/dL [facility] CBC (HEMOGRAM)on 07-30-2024 Erythrocyte distribution width (RBC) [Ratio] 13.9 % Normal 11.5-15.0 [facility] Comment on above: Performed By: #### L [id number] #### Scientific Illustrator: MARILEE ALVARADO ([id number]) [facility] ([facility]) [address] [place] [address] Hematocrit (Bld) [Volume fraction] 28.7 % Low 40.0-52.0 [facility] Comment on above: Performed By: #### L [id number] #### Scientific Illustrator: MARILEE ALVARADO ([id number]) [facility] ([facility]) [address] [place] [address] Hemoglobin (Bld) [Mass/Vol] 9.6 g/dL Low 13.0-18.0 [facility] Comment on above: Performed By: #### L [id number] #### Scientific Illustrator: MARILEE ALVARADO ([id number]) [facility] ([facility]) [address] [place] [address] MCH (RBC) [Entitic mass] 28.1 pg Normal 26.0-34.0 [facility] Comment on above: Performed By: #### L [id number] #### Scientific Illustrator: MARILEE ALVARADO ([id number]) [facility] ([facility]) [address] [place] [address] MCHC 33.4 % Normal 30.5-36.0 [facility] Comment on above: Performed By: #### L [id number] #### Scientific Illustrator: MARILEE ALVARADO ([id number]) [facility] ([facility]) [address] [place] [address] MCV (RBC) [Entitic vol] 83.9 fL Normal 77.0-99.0 [facility] Comment on above: Performed By: #### L [id number] #### Scientific Illustrator: MARILEE ALVARADO ([id number]) [facility] ([facility]) [address] [place] [address] Platelet mean volume (Bld) [Entitic vol] 11.4 fL Normal 9.0-12.7 [facility] Comment on above: Performed By: #### L [id number] #### Scientific Illustrator: MARILEE ALVARADO ([id number]) [facility] ([facility]) [address] [place] [address] Platelets (Bld) [#/Vol] 153 10*3/uL Normal 140-440 [facility] Comment on above: Performed By: #### L [id number] #### Scientific Illustrator: MARILEE ALVARADO ([id number]) [facility]) [address] [place] [address] RBC (Bld) [#/Vol] 3.42 10*6/uL Low 4.40-5.90 [facility] Comment on above: Performed By: #### L [id number] #### Scientific Illustrator: MARILEE ALVARADO ([id number]) [facility] ([facility]) [address] [place] [address] WBC (Bld) [#/Vol] 5.0 10*3/uL Normal 3.6-10.7 [facility] Comment on above: Performed By: #### L [id number] #### Scientific Illustrator: MARILEE ALVARADO ([id number]) [facility]) [address] [place] [address] CBC panel Auto (Bld)Ordered By: Bere Mas on 07-30-2024 Erythrocyte distribution width (RBC) [Ratio] 13.9 % 11.5 - 15.0 % [facility] Hematocrit (Bld) [Volume fraction] 28.7 % Low 40.0 - 52.0 % [facility] Hemoglobin (Bld) [Mass/Vol] 9.6 g/dL Low 13.0 - 18.0 g/dL [facility] Interpretation and review of laboratory results Abnormal [facility] MCH (RBC) [Entitic mass] 28.1 pg 26.0 - 34.0 pg [facility] MCHC (RBC) [Mass/Vol] 33.4 % 30.5 - 36.0 % [facility] MCV (RBC) [Entitic vol] 83.9 fL 77.0 - 99.0 fL [facility] Platelet mean volume (Bld) [Entitic vol] 11.4 fL 9.0 - 12.7 fL [facility] Platelets (Bld) [#/Vol] 153 10*3/uL 140 - 440 10*3/uL [facility] RBC (Bld) [#/Vol] 3.42 10*6/uL Low 4.40 - 5.90 10*6/uL [facility] WBC (Bld) [#/Vol] 5 10*3/uL 3.6 - 10.7 10*3/uL [facility] - Chemistry and C hemistry - challengeon 07-30-2024 Magnesium [Mass/Vol] 1.9 mg/dL 1.6 - 2 .6 mg/dL [facility] MAGNESIUMon 07-30-2024 Magnesium [Mass/Vol] 1.9 mg/dL Normal 1.6-2.6 [facility] Comment on above: Result Comment: MIKE Carr COMMENTS: Higher values can be expected in females during menses. Performed By: #### L AB15, [id number] ####Scientific Illustrator: MARILEE ALVARADO ([id number])[facility]ITALX[facility] Magnesium [Mass/Vol]on 07-30 Interpretation and review of laboratory results Normal [facility] Higher values can be expected in females during menses. [facility] No Panel Informationon 07-30 [facility] XR CHEST 1 VIEWon 07-30-2024 XR CHEST 1 VIEW Patient Name: SHARONDA FLORES : 1955 Exam Date/Time: 07/30/2024 07:41 Procedure: XR CHEST 1 VIEW Ordering Provider: GARCIA ANDREW Reason For Exam: Shortness of breath EXAM: XR Chest, 1 View CLINICAL INDICATION: Shortness of breath TECHNIQUE: Frontal view of the chest. COMPARISON: XR Chest dated 07/29/2024 FINDINGS: LUNGS AND PLEURAL SPACES: Minimal left basilar atelectasis. No pneumothorax. HEART: Unremarkable. No cardiomegaly. MEDIASTINUM: Unremarkable. Normal mediastinal contour. BONES/JOINTS: Median sternotomy. No acute fracture. IMPRESSION: Minimal left basilar atelectasis. Report Dictated on Electronically Signed By: Shayna Patel DO Electronically Signed Date/Time: 07/30/2024 7:59 AM EST Normal [facility] XR Chest Single viewon 07-30 Minimal left basilar atelectasis. Report Dictated on Electronically Signed By: Shayna Patel DO Electronically Signed Date/Time: 07/30/2024 7:59 AM EST [facility] Patient Name: SHARONDA FLORES : 1955 Exam Date/Time: 07/30/2024 07:41 Procedure: XR CHEST 1 VIEW Ordering Provider: GARCIA ANDREW Reason For Exam: Shortness of breath EXAM: XR Chest, 1 View CLINICAL INDICATION: Shortness of breath TECHNIQUE: Frontal view of the chest. COMPARISON: XR Chest dated 07/29/2024 FINDINGS: LUNGS AND PLEURAL SPACES: Minimal left basilar atelectasis. No pneumothorax. HEART: Unremarkable. No cardiomegaly. MEDIASTINUM: Unremarkable. Normal mediastinal contour. BONES/JOINTS: Median sternotomy. No acute fracture. [facility] Shayna Patel DO - 07/30/2024 Patient Name: SHARONDA FLORES : 1955 Exam Date/Time: 07/30/2024 07:41 Procedure: XR CHEST 1 VIEW Ordering Provider: GARCIA ANDREW Reason For Exam: Shortness of breath EXAM: XR Chest, 1 View CLINICAL INDICATION: Shortness of breath TECHNIQUE: Frontal view of the chest. COMPARISON: XR Chest dated 07/29/2024 FINDINGS: LUNGS AND PLEURAL SPACES: Minimal left basilar atelectasis. No pneumothorax. HEART: Unremarkable. No cardiomegaly. MEDIASTINUM: Unremarkable. Normal mediastinal contour. BONES/JOINTS: Median sternotomy. No acute fracture. IMPRESSION: Minimal left basilar atelectasis. Report Dictated on Electronically Signed By: Shayna Patel DO Electronically Signed Date/Time: 07/30/2024 7:59 AM EST [facility] Radiology Study observation (narrative) [facility] [employer] XR Chest Single viewOrdered By: Shayna Patel on 07-30-2024 [employer] Work Phone: 30on 07-29-2024 30 Problem: Pain - Adul t Goal: Verbalizes/displays adequate comfort level or baseline comfort level Outcome: Progressing Problem: Safety - Adult Goal: Free from fall injury Outcome: Progressing Problem: Discharge Planning Goal: Discharge to home or other facility with appropriate resources Outcome: Progressing Problem: Chronic Conditions and Co-morbidities Goal: Patient's chronic conditions and co-morbidity symptoms are monitored and maintained or improved Outcome: Progressing Problem: Knowledge Deficit Goal: Patient/family/caregiver demonstrates understanding of disease process, treatment plan, medications, and discharge instructions Outcome: Progressing Problem: Potential for Compromised Skin Integrity Goal: Skin Integrity is Maintained or Improved Outcome: Progressing Goal: Nutritional status is improving Outcome: Progressing Problem: Urinary Incontinence Goal: Perineal skin integrity is maintained or improved Outcome: Progressing Problem: Problem Interventions Goal: Assess Nutritional Intake Outcome: Progressing Normal [facility] BASIC METABOLIC PANELon 12-3 -2023 Anion gap [Moles/Vol] 9 mmol/L Normal 3-13 [facility] Comment on above: Performed By: #### L AB103, [id number] ####Scientific Illustrator: MARILEE ALVARADO ([id number])[address] Calcium [Mass/Vol] 9.0 mg/dL Normal 8.8-10.0 [facility] Comment on above: Performed By: #### L AB103, LAB15 ####Scientific Illustrator: MARILEE ALVARADO ([id number])[facility])[address] [place] [address] Chloride [Moles/Vol] 102 mmol/L Normal 98-107 [facility] Comment on above: Performed By: #### L AB103, LAB15 ####Scientific Illustrator: MARILEE ALVARADO ([id number])[facility])[address] [place] [address] CO2 [Moles/Vol] 30 mmol/L Normal 23-31 [facility] Comment on above: Performed By: #### L AB103, LAB15 ####Scientific Illustrator: MARILEE ALVARADO ([id number])[address] Creatinine [Mass/Vol] 0.81 mg/dL Normal 0.72-1.25 [facility] Comment on above: Performed By: #### L AB103, LAB15 ####Scientific Illustrator: MARILEE ALVARADO ([id number])[facility])[address] [place] [address] GLOMERULAR FILTRATION RATE ML/MIN/1.73 SQ M.PREDICTED >90.0 Normal >60.0 [facility] Comment on above: Result Comment: Calc ulation based on the Chronic Kidney Disease Epidemiology Collaboration (CKD-EPI) equation refit without adjustment for race Performed By: #### L AB103, LAB15 ####Scientific Illustrator: MARILEE ALVARADO ([id number])[facility] ([facility])[address] [place] [address] Glucose [Mass/Vol] 89 mg/dL Normal 82-115 [facility] Comment on above: Performed By: #### L 103, LAB15 ####Scientific Illustrator: MARILEE ALVARADO ([id number])[facility])[address] [place] [address] Potassium [Moles/Vol] 3.4 mmol/L Low 3.5-5.1 [facility] Comment on above: Result Comment: [facility] potassium values may be up to 0.5 mmol/L lower than serum values. Performed By: #### L AB103, LAB15 ####Scientific Illustrator: MARILEE ALVARADO ([id number])[facility] ([facility])[address] [place] [address] [place] Sodium [Moles/Vol] 141 mmol/L Normal 136-145 [facility] Comment on above: Performed By: #### L AB103, LAB15 ####Scientific Illustrator: MARILEE ALVARADO ([id number])[facility] ([facility])[address] [place] [address] [place] Urea nitrogen [Mass/Vol] 24 mg/dL High - [facility] Comment on above: Performed By: #### L AB103, LAB15 ####Scientific Illustrator: MARILEE ALVARADO ([id number])[facility])[address] [place] [address] Basic metabolic 1998 panelon 07-29-2024 Anion gap [Moles/Vol] 9 mmol/L 3 - 13 mmol/L [facility] Calcium [Mass/Vol] 9 mg/dL 8.8 - 10. 0 mg/dL [facility] Chloride [Moles/Vol] 102 mmol/L 98 - 10 7 mmol/L [facility] CO2 [Moles/Vol] 30 mmol/L 23 - 31 mmol/L [facility] Creatinine [Mass/Vol] 0.81 mg/dL 0.72 - 1.25 mg/dL [facility] GFR/1.73 sq M.predicted (S/P/Bld) [Vol rate/Area] - PINF [facility] Comment on above: Calculation based on the Chronic Kidney Disease Epidemiology Collaboration (CKD-EPI) equation refit without adjustment for race Glucose [Mass/Vol] 89 mg/dL 82 - 115 mg/dL [facility] Interpretation and review of laboratory results Abnormal [facility] Potassium [Moles/Vol] 3.4 mmol/L Low 3.5 - 5.1 mmol/L [facility] Comment on above: Plasma potassium ivan ues may be up to 0.5 mmol/L lower than serum values. Sodium [Moles/Vol] 141 mmol/L 136 - 145 mmol/L [facility] Urea nitrogen [Mass/Vol] 24 mg/dL High 9 - 23 mg/dL [facility] CBC (HEMOGRAM)on 07-29-2024 Erythrocyte distribution width (RBC) [Ratio] 13.7 % Normal 11.5-15.0 [facility] Comment on above: Performed By: #### L [id number] ####Scientific Illustrator: MARILEE ALVARADO ([id number])[address] Hematocrit (Bld) [Volume fraction] 25.2 % Low 40.0-52.0 [facility] Comment on above: Performed By: #### L [id number] ####Scientific Illustrator: MARILEE ALVARADO ([id number])[address] Hemoglobin (Bld) [Mass/Vol] 8.4 g/dL Low 13.0-18.0 [facility] Comment on above: Performed By: #### L [id number] ####Scientific Illustrator: MARILEE [id number])[facility] ([facility])[address] [place] [address] IPF 9 Normal [facility] Comment on above: Performed By: #### L [id number] ####Scientific Illustrator: MARILEE ALVARADO ([id number])[facility] ([facility])[address] [place] [address] MCH (RBC) [Entitic mass] 28.2 pg Normal 26.0-34.0 [facility] Comment on above: Performed By: #### L [id number] ####Scientific Illustrator: MARILEE ALVARADO ([id number])[facility])[address] [place] [address] MCHC 33.3 % Normal 30.5-36.0 [facility] Comment on above: Performed By: #### L [id number] ####Scientific Illustrator: MARILEE ALVARADO ([id number])[facility] ([facility])[address] [place] [address] MCV (RBC) [Entitic vol] 84.6 fL Normal 77.0-99.0 [facility] Comment on above: Performed By: #### L [id number] ####Scientific Illustrator: MARILEE ALVARADO ([id number])[facility] ([facility])[address] [place] [address] Platelet mean volume (Bld) [Entitic vol] 12.9 fL High 9.0-12.7 [facility] Comment on above: Performed By: #### L [id number] ####Scientific Illustrator: MARILEE ALVARADO ([id number])[facility] ([facility])[address] [place] [address] Platelets (Bld) [#/Vol] 94 10*3/uL Low 140-440 [facility] Comment on above: Performed By: #### L [id number] ####Scientific Illustrator: MARILEE ALVARADO ([id number])[facility] ([facility])[address] [place] [address] RBC (Bld) [#/Vol] 2.98 10*6/uL Low 4.40-5.90 [facility] Comment on above: Performed By: #### L [id number] ####Scientific Illustrator: MARILEE ALVARADO ([id number])[facility] ([facility])[address] [place] [address] WBC (Bld) [#/Vol] 4.9 10*3/uL Normal 3.6-10.7 [facility] Comment on above: Performed By: #### L [id number] ####Scientific Illustrator: MARILEE ALVARADO ([id number])[facility] ([facility])[address] [place] [address] CBC panel Auto (Bld)on 07-29 Erythrocyte distribution width (RBC) [Ratio] 13.7 % 11.5 - 15.0 % [facility] Hematocrit (Bld) [Volume fraction] 25.2 % Low 40.0 - 52.0 % [facility] Hemoglobin (Bld) [Mass/Vol] 8.4 g/dL Low 13.0 - 18.0 g/dL [facility] Interpretation and review of laboratory results Abnormal [facility] IPF 9 [facility] MCH (RBC) [Entitic mass] 28.2 pg 26.0 - 34.0 pg [facility] MCHC (RBC) [Mass/Vol] 33.3 % 30.5 - 36.0 % [facility] MCV (RBC) [Entitic vol] 84.6 fL 77.0 - 99.0 fL [facility] Platelet mean volume (Bld) [Entitic vol] 12.9 fL High 9.0 - 12.7 fL [facility] Platelets (Bld) [#/Vol] 94 10*3/uL Low 140 - 440 10*3/uL [facility] RBC (Bld) [#/Vol] 2.98 10*6/uL Low 4.40 - 5.90 10*6/uL [facility] WBC (Bld) [#/Vol] 4.9 10*3/uL 3.6 - 10.7 10*3/uL [facility] ECG 12-LEADon 07-29-2024 ECG 12-LEAD IMPRESSION: Atrial fibrillation with rapid V-rate Repolarization abnormality, prob rate related Electronically Signed On 07-29-2024 12:10:18 EST by Rhea Borrego Normal [facility] Laboratory - Chemistry and C hemistry - challengeon 07-29-2024 Potassium [Moles/Vol] 4 mmol/L 3.5 - 5.1 mmol/L [facility] Comment on above: Plasma potassium ivan ues may be up to 0.5 mmol/L lower than serum values. Magnesium [Mass/Vol] 1.8 mg/dL 1.6 - 2 .6 mg/dL [facility] MAGNESIUMon 07-29-2024 Magnesium [Mass/Vol] 1.8 mg/dL Normal 1.6-2.6 [facility] Comment on above: Result Comment: ORDE R COMMENTS: Higher values can be expected in females during menses. Performed By: #### L AB103, LAB15 ####Scientific Illustrator: MARILEE ALVARADO ([id number])[facility] ([address] Magnesium [Mass/Vol]on 07-29 Interpretation and review of laboratory results Normal [facility] Higher values can be expected in females during menses. [facility] No Panel InformationOrdered By: Rhea Borrego on 07-29-2024 P [place] 0 degrees [employer] Work Phone: WI Interval 0 ms [employer] Phone: QRS [place] 27 degrees [employer] Phone: QRSD Interval 77 ms [employer] Work Phone: QT Interval 289 ms [employer] Work Phone: QTC Interval 468 ms [employer] Work Phone: T Wave [place] -46 degrees [employer] Phone: [employer] Work Phone: No Panel Informationon 07-29 Atrial fibrillation with rapid V-rate Repolarization abnormality, prob rate related Electronically Signed On 07-29-2024 12:10:18 EST by Rhea Borrego CV Rhea Lassiter MD - 07/29/2024 IMPRESSION: Atrial fibrillation with rapid V-rate Repolarization abnormality, prob rate related Electronically Signed On 07-29-2024 12:10:18 EST by Rhea Borrego [facility] Nursing Noteon 07-29-2024 Nursing Note Summary of day shift - Patient ambulated unit 3 times independently during shift; positive for BM; intermittent c/o chest pain treated with PRN meds and rest; patient did not eat much (doesn't care for food selections). Did drink Ensure. Patient anticipating discharge to home tomorrow. Normal [facility] POTASSIUMon 07-29-2024 Potassium [Moles/Vol] 4.0 mmol/L Normal 3.5-5.1 [facility] Comment on above: Result Comment: [facility] potassium values may be up to 0.5 mmol/L lower than serum values. Performed By: #### L [id number] ####Scientific Illustrator: MARILEE ALVARADO ([id number])[facility] ([facility] Potassium [Moles/Vol]on 07-02 Interpretation and review of laboratory results Normal [facility] Progress Noteon 07-29-2024 Progress Note PHYSICAL THERAPY [facility] Treatment Note Name/MRN: Sharonda Flores ([id number]) Date of : 1955 Age: 69 y.o. Room/Bed: T1-109/T1-109 A Discharge Recommendation: Home with assist PRN Equipment Needed: No Prior Level of Function Prior Level of ADL Function: Independent Prior Level of Mobility: Independent; Device: None Prior Level of Transfers: Independent Assessment Good progress made towards goals, met multiple goals. Patient was able to ambulate 2 laps on HLU with supervision and no device. Minimal instability noted with mobility tasks. Has been performing P&C exercises on own. Recommend home with assist PRN at discharge. Subjective Seated in recliner upon arrival, agrees to PT. Pain: Pt denies any current pain. Medical Precautions: No active isolations Proper PPE donned/doffed in accordance with facility standards. Fall Risk: Vicente Fall Risk Score: 45 (High Risk) Precautions/Restrictions: Sternal Precautions: No lifting greater than 10 lbs. Ok for modified UE precautions using Keep Your Move in the Tube technique Lines/Drains/Airways: tele Overall Cognitive Status: WNL Overall Orientation Status: Oriented x4 Family/Caregiver Present: none Objective Transfers/Mobility Sit to stand: Supervision Stand to sit: Supervision Good technique, no instability Device(s) used: None Ambulation Ambulation 1 Assistive device(s) used: None Assist level: Supervision Distance (ft): 720ft Quality of gait: No LOB, equal step length Balance During Session: Posture: good Sitting - Static: Independent Sitting - Dynamic: Independent Standing - Static: Supervision Standing - Dynamic: Supervision Performs P&C exercises on own. Plan Continue acute PT per plan of care. Safety/Education Safety Safety Devices in place: All fall risk precautions in place, call light within reach, and left in chair Restraints: No Education Gait, balance, walking program Outcome Measures AM-PAC AM-PAC Inpatient Mobility Raw Score (No Stairs) : 20 JH-HLM JH-HLM Score: Walked 250 ft or more (i.e. several laps on unit) Goals Patient Stated Goal: to feel better Encounter Problems Encounter Problems (Active) Cardiac Patient will perform bed mobility with independence in order to improve independence and prepare for out of bed mobility. (Not Addressed) Start: 07/26/24 Expected End: 08/23/24 Patient will complete sit to stand transfer with independence to none in order to improve safety and prepare for out of bed mobility. (Adequate for Discharge) Start: 07/26/24 Expected End: 08/23/24 Patient will ambulate 600 feet or ambulate 5 minutes with independence with RPE of 14 or lower. (Adequate for Discharge) Start: 07/26/24 Expected End: 08/23/24 Patient will be independent with P&C exercises. (Completed) Start: 07/26/24 Expected End: 08/23/24 Resolved: 07/29/24 Patient will be independent with managing secretions and home walking program. (Completed) Start: 07/26/24 Expected End: 08/23/24 Resolved: 07/29/24 Pain - Adult Therapy Time Individual Co-treatment Time In 1155 Time Out 1209 Minutes 14 Timed Code Treatment Minutes: 14 Minutes (Gait) Lilo Powell PTA Normal [facility] Vital signsOrdered By: Timothy waite Yoselinjose miguel on 07-29-2024 Heart rate 157 /min bpm [facility] [employer] Work Phone: XR CHEST 1 VIEWon 07-29-2024 XR CHEST 1 VIEW Patient Name: SHARONDA FLORES : 1955 Exam Date/Time: 07/29/2024 05:12 Procedure: XR CHEST 1 VIEW Ordering Provider: GARCIA ANDREW Reason For Exam: Shortness of breath CHEST CLINICAL INDICATION: Shortness of breath TECHNIQUE: AP portable chest COMPARISON: Chest radiograph from 07/28/2024 FINDINGS: SUPPORT DEVICES: Right internal jugular catheter is no longer visualized. Mediastinal drain and left chest tube are no longer visualized. HEART AND MEDIASTINUM: Calcification of the thoracic aorta. Stable mild prominence of the cardiac silhouette. Apparent prior CABG procedure. LUNGS AND PLEURA: Trace left pleural effusion.. No sizable pleural effusion . No pneumothorax is identified. OSSEOUS STRUCTURES: Median sternotomy wires. Degenerative change of the spine. IMPRESSION: Trace left pleural effusion. Report Dictated on Electronically Signed By: Juana Bose MD Electronically Signed Date/Time: 07/29/2024 8:34 AM [facility] XR Chest Single viewon 07-29 Trace left pleural effusion. Report Dictated on Electronically Signed By: Juana Bose MD Electronically Signed Date/Time: 07/29/2024 8:34 AM [facility] Patient Name: SHARONDA FLORES : 1955 Exam Date/Time: 07/29/2024 05:12 Procedure: XR CHEST 1 VIEW Ordering Provider: GARCIA ANDREW Reason For Exam: Shortness of breath CHEST CLINICAL INDICATION: Shortness of breath TECHNIQUE: AP portable chest COMPARISON: Chest radiograph from 07/28/2024 FINDINGS: SUPPORT DEVICES: Right internal jugular catheter is no longer visualized. Mediastinal drain and left chest tube are no longer visualized. HEART AND MEDIASTINUM: Calcification of the thoracic aorta. Stable mild prominence of the cardiac silhouette. Apparent prior CABG procedure. LUNGS AND PLEURA: Trace left pleural effusion.. No sizable pleural effusion . No pneumothorax is identified. OSSEOUS STRUCTURES: Median sternotomy wires. Degenerative change of the spine. [facility] Juana Bose M D - 07/29/2024 Patient Name: SHARONDA FLORES : 1955 [id number] Exam Date/Time: 07/29/2024 05:12 Procedure: XR CHEST 1 VIEW Ordering Provider: GARCIA ANDREW Reason For Exam: Shortness of breath CHEST CLINICAL INDICATION: Shortness of breath TECHNIQUE: AP portable chest COMPARISON: Chest radiograph from 07/28/2024 FINDINGS: SUPPORT DEVICES: Right internal jugular catheter is no longer visualized. Mediastinal drain and left chest tube are no longer visualized. HEART AND MEDIASTINUM: Calcification of the thoracic aorta. Stable mild prominence of the cardiac silhouette. Apparent prior CABG procedure. LUNGS AND PLEURA: Trace left pleural effusion.. No sizable pleural effusion . No pneumothorax is identified. OSSEOUS STRUCTURES: Median sternotomy wires. Degenerative change of the spine. IMPRESSION: Trace left pleural effusion. Report Dictated on Electronically Signed By: Juana Bose MD Electronically Signed Date/Time: 07/29/2024 8:34 AM EST [facility] Radiology Study observation (narrative) [facility] 30on 07-28-2024 30 Problem: Pain - Adul t Goal: Verbalizes/displays adequate comfort level or baseline comfort level Outcome: Progressing Problem: Safety - Adult Goal: Free from fall injury Outcome: Progressing Problem: Discharge Planning Goal: Discharge to home or other facility with appropriate resources Outcome: Progressing Problem: Chronic Conditions and Co-morbidities Goal: Patient's chronic conditions and co-morbidity symptoms are monitored and maintained or improved Outcome: Progressing Problem: Knowledge Deficit Goal: Patient/family/caregiver demonstrates understanding of disease process, treatment plan, medications, and discharge instructions Outcome: Progressing Problem: Potential for Compromised Skin Integrity Goal: Skin Integrity is Maintained or Improved Outcome: Progressing Goal: Nutritional status is improving Outcome: Progressing Problem: Urinary Incontinence Goal: Perineal skin integrity is maintained or improved Outcome: Progressing Problem: Problem Interventions Goal: Assess Nutritional Intake Outcome: Progressing Normal [facility] BASIC METABOLIC PANELon 12-2 Anion gap [Moles/Vol] 7 mmol/L Normal 3-13 [facility] Comment on above: Performed By: #### L AB15 ####Scientific Illustrator: MARILEE ALVARADO ([id number])[facility] [place] [address] Calcium [Mass/Vol] 9.1 mg/dL Normal 8.8-10.0 [facility] Comment on above: Performed By: #### L AB15 ####Scientific Illustrator: MARILEE ALVARADO ([id number])[facility] ([facility])[address] [place] [address] Chloride [Moles/Vol] 97 mmol/L Low 98-107 [facility] Comment on above: Performed By: #### L AB15 ####Scientific Illustrator: MARILEE ALVARADO ([id number])[facility] [place] [address] CO2 [Moles/Vol] 33 mmol/L High 23-31 [facility] Comment on above: Performed By: #### L AB15 ####Scientific Illustrator: MARILEE ALVARADO ([id number])[facility] ([facility])[address] [place] [address] Creatinine [Mass/Vol] 0.82 mg/dL Normal 0.72-1.25 [facility] Comment on above: Performed By: #### L AB15 ####Scientific Illustrator: MARILEE ALVARADO ([id number])[facility] ([facility])[address] [place] [address] GLOMERULAR FILTRATION RATE ML/MIN/1.73 SQ M.PREDICTED >90.0 Normal >60.0 [facility] Comment on above: Result Comment: Calc ulation based on the Chronic Kidney Disease Epidemiology Collaboration (CKD-EPI) equation refit without adjustment for race Performed By: #### L AB15 ####Scientific Illustrator: MARILEE ALVARADO ([id number])[facility] ([facility])[address] [place] [address] Glucose [Mass/Vol] 98 mg/dL Normal 82-115 [facility] Comment on above: Performed By: #### L AB15 ####Scientific Illustrator: MARILEE ALVARADO ([id number])[facility] ([facility])[address] [place] [address] Potassium [Moles/Vol] 3.3 mmol/L Low 3.5-5.1 [facility] Comment on above: Result Comment: [facility] potassium values may be up to 0.5 mmol/L lower than serum values. Performed By: #### L AB15 ####Scientific Illustrator: MARILEE ALVARADO ([id number])[facility] ([facility])[address] [place] [address] Sodium [Moles/Vol] 137 mmol/L Normal 136-145 [facility] Comment on above: Performed By: #### L AB15 ####Scientific Illustrator: MARILEE ALVARADO ([id number])[facility] ([facility])[address] [place] [address] [place] Urea nitrogen [Mass/Vol] 24 mg/dL High 9-23 [facility] Comment on above: Performed By: #### L AB15 ####Scientific Illustrator: MARILEE ALVARADO ([id number])[facility] ([facility])[address] [place] [address] Anion gap [Moles/Vol] 4 mmol/L Normal 3-13 [facility] Comment on above: Performed By: #### L AB103, LAB15 ####Scientific Illustrator: MARILEE ALVARADO ([id number])[facility] [place] [address] [place] Calcium [Mass/Vol] 9.0 mg/dL Normal 8.8-10.0 [facility] Comment on above: Performed By: #### L AB103, LAB15 ####Scientific Illustrator: MARILEE ALVARADO ([id number])[facility] ([facility])[address] [place] [address] [place] Chloride [Moles/Vol] 101 mmol/L Normal 98-107 [facility] Comment on above: Performed By: #### L AB103, LAB15 ####Scientific Illustrator: MARILEE ALVARADO ([id number])[facility])[address] [place] [address] CO2 [Moles/Vol] 31 mmol/L Normal 23-31 [facility] Comment on above: Performed By: #### L AB103, LAB15 ####Scientific Illustrator: MARILEE ALVARADO ([id number])[facility])[address] [place] [address] Creatinine [Mass/Vol] 0.90 mg/dL Normal 0.72-1.25 [facility] Comment on above: Performed By: #### L AB103, LAB15 ####Scientific Illustrator: MARILEE ALVARADO ([id number])[facility])[address] [place] [address] GLOMERULAR FILTRATION RATE ML/MIN/1.73 SQ M.PREDICTED >90.0 Normal >60.0 [facility] Comment on above: Result Comment: Calc ulation based on the Chronic Kidney Disease Epidemiology Collaboration (CKD-EPI) equation refit without adjustment for race Performed By: #### L CARLOS MANUEL, LAB15 ####Scientific Illustrator: MARILEE ALVARADO ([id number])[facility])[address] [place] [address] [place] Glucose [Mass/Vol] 103 mg/dL Normal 82-115 [facility] Comment on above: Performed By: #### L AB103, LAB15 ####Scientific Illustrator: MARILEE ALVARADO ([id number])[facility])[address] [place] [address] [place] Potassium [Moles/Vol] 3.6 mmol/L Normal 3.5-5.1 [facility] Comment on above: Result Comment: [facility] potassium values may be up to 0.5 mmol/L lower than serum values. Performed By: #### L AB103, LAB15 ####Scientific Illustrator: MARILEE ALVARADO ([id number])[facility])[address] [place] [address] [place] Sodium [Moles/Vol] 136 mmol/L Normal 136-145 [facility] Comment on above: Performed By: #### L AB103, LAB15 ####Scientific Illustrator: MARILEE ALVARADO ([id number])[facility] ([facility])[address] [place] [address] Urea nitrogen [Mass/Vol] 23 mg/dL Normal 9-23 [facility] Comment on above: Performed By: #### L AB103, LAB15 ####Scientific Illustrator: MARILEE ALVARADO ([id number])[facility] [place] [address] Basic metabolic 1998 panelon 07-28-2024 Anion gap [Moles/Vol] 7 mmol/L 3 - 13 mmol/L [facility] Calcium [Mass/Vol] 9.1 mg/dL 8.8 - 10. 0 mg/dL [facility] Chloride [Moles/Vol] 97 mmol/L Low 98 - 10 7 mmol/L [facility] CO2 [Moles/Vol] 33 mmol/L High 23 - 31 mmol/L [facility] Creatinine [Mass/Vol] 0.82 mg/dL 0.72 - 1.25 mg/dL [facility] GFR/1.73 sq M.predicted (S/P/Bld) [Vol rate/Area] - PINF [facility] Comment on above: Calculation based on the Chronic Kidney Disease Epidemiology Collaboration (CKD-EPI) equation refit without adjustment for race Glucose [Mass/Vol] 98 mg/dL 82 - 115 mg/dL [facility] Interpretation and review of laboratory results Abnormal [facility] Potassium [Moles/Vol] 3.3 mmol/L Low 3.5 - 5.1 mmol/L [facility] Comment on above: Plasma potassium ivan ues may be up to 0.5 mmol/L lower than serum values. Sodium [Moles/Vol] 137 mmol/L 136 - 145 mmol/L [facility] Urea nitrogen [Mass/Vol] 24 mg/dL High 9 - 23 mg/dL [facility] Anion gap [Moles/Vol] 4 mmol/L 3 - 13 mmol/L [facility] Calcium [Mass/Vol] 9 mg/dL 8.8 - 10. 0 mg/dL [facility] Chloride [Moles/Vol] 101 mmol/L 98 - 10 7 mmol/L [facility] CO2 [Moles/Vol] 31 mmol/L 23 - 31 mmol/L [facility] Creatinine [Mass/Vol] 0.9 mg/dL 0.72 - 1.25 mg/dL [facility] GFR/1.73 sq M.predicted (S/P/Bld) [Vol rate/Area] - PINF [facility] Comment on above: Calculation based on the Chronic Kidney Disease Epidemiology Collaboration (CKD-EPI) equation refit without adjustment for race Glucose [Mass/Vol] 103 mg/dL 82 - 115 mg/dL [facility] Potassium [Moles/Vol] 3.6 mmol/L 3.5 - 5.1 mmol/L [facility] Comment on above: Plasma potassium ivan ues may be up to 0.5 mmol/L lower than serum values. Sodium [Moles/Vol] 136 mmol/L 136 - 145 mmol/L [facility] Urea nitrogen [Mass/Vol] 23 mg/dL 9 - 23 mg/dL [facility] CBC (HEMOGRAM)on 07-28-2024 Erythrocyte distribution width (RBC) [Ratio] 14.1 % Normal 11.5-15.0 [facility] Comment on above: Performed By: #### L [id number] #### Scientific Illustrator: MARILEE ALVARADO ([id number]) [facility]) [address] [place] [address] Hematocrit (Bld) [Volume fraction] 24.3 % Low 40.0-52.0 [facility] Comment on above: Performed By: #### L [id number] #### Scientific Illustrator: MARILEE ALVARADO ([id number]) [facility] ([facility]) [address] [place] [address] Hemoglobin (Bld) [Mass/Vol] 8.1 g/dL Low 13.0-18.0 [facility] Comment on above: Performed By: #### L [id number] #### Scientific Illustrator: MARILEE ALVARADO ([id number]) [facility]) [address] [place] [address] [place] IPF 9 Normal [facility] Comment on above: Performed By: #### L [id number] #### Scientific Illustrator: MARILEE ALVARADO ([id number]) [facility] ([facility]) [address] [place] [address] MCH (RBC) [Entitic mass] 28.4 pg Normal 26.0-34.0 [facility] Comment on above: Performed By: #### L [id number] #### Scientific Illustrator: MARILEE ALVARADO ([id number]) [facility] ([facility]) [address] [place] [address] MCHC 33.3 % Normal 30.5-36.0 [facility] Comment on above: Performed By: #### L [id number] #### Scientific Illustrator: MARILEE ALVARADO ([id number]) [facility]) [address] [place] [address] MCV (RBC) [Entitic vol] 85.3 fL Normal 77.0-99.0 S [facility] Comment on above: Performed By: #### L [id number] #### Scientific Illustrator: MARILEE ALVARADO ([id number]) [facility] ([facility]) [address] [place] [address] Platelet mean volume (Bld) [Entitic vol] 12.2 fL Normal 9.0-12.7 [facility] Comment on above: Performed By: #### L [id number] #### Scientific Illustrator: MARILEE ALVARAOD ([id number]) [facility]) [address] [place] [address] Platelets (Bld) [#/Vol] 68 10*3/uL Low 140-440 S [facility] Comment on above: Performed By: #### L [id number] #### Scientific Illustrator: MARILEE ALVARADO ([id number]) [facility] ([facility]) [address] [place] [address] RBC (Bld) [#/Vol] 2.85 10*6/uL Low 4.40-5.90 [facility] Comment on above: Performed By: #### L [id number] #### Scientific Illustrator: MARILEE ALVARADO ([id number]) [facility]) [address] [place] [address] WBC (Bld) [#/Vol] 5.0 10*3/uL Normal 3.6-10.7 [facility] Comment on above: Performed By: #### L [id number] #### Scientific Illustrator: MARILEE ALVARADO ([id number]) [facility] ([facility]) [address] [place] [address] CBC panel Auto (Bld)Ordered By: Nikolai Hillman on 07-28-2024 Erythrocyte distribution width (RBC) [Ratio] 14.1 % 11.5 - 15.0 % [facility] Hematocrit (Bld) [Volume fraction] 24.3 % Low 40.0 - 52.0 % [facility] Hemoglobin (Bld) [Mass/Vol] 8.1 g/dL Low 13.0 - 18.0 g/dL [facility] Interpretation and review of laboratory results Abnormal [facility] IPF 9 [facility] MCH (RBC) [Entitic mass] 28.4 pg 26.0 - 34.0 pg [facility] MCHC (RBC) [Mass/Vol] 33.3 % 30.5 - 36.0 % [facility] MCV (RBC) [Entitic vol] 85.3 fL 77.0 - 99.0 fL [facility] Platelet mean volume (Bld) [Entitic vol] 12.2 fL 9.0 - 12.7 fL [facility] Platelets (Bld) [#/Vol] 68 10*3/uL Low 140 - 440 10*3/uL [facility] RBC (Bld) [#/Vol] 2.85 10*6/uL Low 4.40 - 5.90 10*6/uL [facility] WBC (Bld) [#/Vol] 5 10*3/uL 3.6 - 10.7 10*3/uL [facility] ECG 12-LEADon 07-28-2024 ECG 12-LEAD IMPRESSION: Sinus rhythm Low voltage in precordial leads Electronically Signed On 07-28-2024 08:59:52 EST by Jose Phelan [facility] Laboratory - Chemistry and C hemistry - challengeon 07-28-2024 Magnesium [Mass/Vol] 2.1 mg/dL 1.6 - 2 .6 mg/dL [facility] Laboratory - Coagulationon 1 09-28-2023 aPTT Coag (PPP) [Time] 26.5 s 20.0 - 30.5 s [facility] INR Coag (PPP) [Relative time] 1.1 {INR} 0.9 - 1.1 [facility] Comment on above: Recommended Anticoag ulant Therapy: SEE BELOW ----- INR of 2.0 - 3.0 : - Prophylaxis of Venous Thrombosis (high-risk surgery) - Treatment of Venous Thrombosis - Treatment of Pulmonary Embolism (Includes tissue heart valves, Acute Myocardial Infarction to prevent systemic embolism, Valvular Heart Disease, and Atrial Fibrillation) ----- INR of 2.5 - 3.5 : - Mechanical Prosthetic Valves (high risk) - If oral anticoagulant therapy is used to prevent Myocardial Infarction PT Coag (Bld) [Time] 12 s 9.0 - 1 2.0 s [facility] MAGNESIUMon 07-28-2024 Magnesium [Mass/Vol] 2.1 mg/dL Normal 1.6-2.6 [facility] Comment on above: Result Comment: MIKE Carr COMMENTS: Higher values can be expected in females during menses. Performed By: #### L [id number], [id number] ####Scientific Illustrator: MARILEE ALVARADO ([id number])[address] Magnesium [Mass/Vol]on 07-28 Higher values can be expected in females during menses. [facility] No Panel Informationon 07-28 P [place] 41 degrees [facility] [place] Interval 137 ms [facility] QRS [place] 16 degrees [facility] QRSD Interval 72 ms [facility] QT Interval 365 ms [facility] QTC Interval 415 ms [facility] T Wave [place] 1 degrees [facility] Sinus rhythm Low voltage in precordial leads Electronically Signed On 07-28-2024 08:59:52 EST by Jose Antoine MD - 07/28/2024 IMPRESSION: Sinus rhythm Low voltage in precordial leads Electronically Signed On 07-28-2024 08:59:52 EST by Jose Hickman [facility] Interpretation and review of laboratory results Normal [facility] Interpretation and review of laboratory results Normal [facility] PROTIME AND APTTon aPTT Coag (Bld) [Time] 26.5 s Normal 20.0-30.5 [facility] Comment on above: Performed By: #### Urbano [id number] ####Scientific Illustrator: MARILEE ALVARADO ([id number])[facility] ([facility])[address] [place] [address] INR Coag (PPP) [Relative time] 1.1 {INR} Normal 0.9-1.1 [facility] Comment on above: Result Comment: Adebayo mmended Anticoagulant Therapy: SEE BELOW ----- INR of 2.0 - 3.0 : - Prophylaxis of Venous Thrombosis (high-risk surgery) - Treatment of Venous Thrombosis - Treatment of Pulmonary Embolism (Includes tissue heart valves, Acute Myocardial Infarction to prevent systemic embolism, Valvular Heart Disease, and Atrial Fibrillation) ----- INR of 2.5 - 3.5 : - Mechanical Prosthetic Valves (high risk) - If oral anticoagulant therapy is used to prevent Myocardial Infarction Performed By: #### Urbano [id number] ####Scientific Illustrator: MARILEE ALVARADO ([id number])[address] PT Coag (PPP) [Time] 12.0 s Normal 9.0-12.0 [facility] Comment on above: Performed By: #### Urbano [id number] ####Scientific Illustrator: MARILEE ALVARADO ([id number])[facility])[address] [place] [address] Progress Noteon 07-28-2024 Progress Note PHYSICAL THERAPY [facility] Treatment Note Name/MRN: Sharonda Flores ([id number]) Date of : 1955 Age: 69 y.o. Room/Bed: T1-109/T1-109 A Discharge Recommendation: Continue to assess pending progress, Home with assist PRN Equipment Needed: No Prior Level of Function Prior Level of ADL Function: Independent Prior Level of Mobility: Independent; Device: None Prior Level of Transfers: Independent Assessment Progressed with gait distance this session, able to ambulate lap on HLU with nezzi and SBA. Performs transfers with SBA, maintains precautions without cues. Overall good stability demonstrated with mobility tasks. Performed P&C exercises with cues for technique and ROM. Anticipate home with assist PRN at discharge. Subjective Seated EOB upon arrival, agrees to participate in PT. Cleared for PT by RN. Pain: discomfort in chest, did not rate Medical Precautions: No active isolations Proper PPE donned/doffed in accordance with facility standards. Fall Risk: Vicente Fall Risk Score: 45 (High Risk) Precautions/Restrictions: Sternal Precautions: No lifting greater than 10 lbs. Ok for modified UE precautions using Keep Your Move in the Tube technique Lines/Drains/Airways: tele, PIV Overall Cognitive Status: WNL Overall Orientation Status: Oriented x4 Family/Caregiver Present: none Objective Transfers/Mobility Sit to stand: SBA Stand to sit: SBA Maintains sternal precautions, good technique. No instability or LOB noted. Device(s) used: [place] Ambulation Ambulation 1 Assistive device(s) used: Nezzie Assist level: SBA Distance (ft): 370ft Quality of gait: slow jb. Some dyspnea noted, decreased jb speed at times. Short standing rest break x 1. Overall good safety awareness and stability demonstrated. Balance During Session: Posture: fair Sitting - Static: Independent Sitting - Dynamic: Independent Standing - Static: SBA Standing - Dynamic: SBA Exercises Exercises Comments: P&C exercises 1-9 x10 reps each, cues and demo for technique and ROM throughout. Encouraged to perform 2-3 x daily. Plan Continue acute PT per plan of care. Safety/Education Safety Safety Devices in place: All fall risk precautions in place, call light within reach, nurse notified, and patient left sitting EOB Restraints: No Education Gait, exercises, balance Outcome Measures AM-PAC AM-PAC Inpatient Mobility Raw Score (No Stairs) : 17 JH-HLM -HLM Score: Walked 250 ft or more (i.e. several laps on unit) Goals Patient Stated Goal: to feel better Encounter Problems Encounter Problems (Active) Cardiac Patient will perform bed mobility with independence in order to improve independence and prepare for out of bed mobility. (Not Addressed) Start: 07/26/24 Expected End: 08/23/24 Patient will complete sit to stand transfer with independence to none in order to improve safety and prepare for out of bed mobility. (Progressing) Start: 07/26/24 Expected End: 08/23/24 Patient will ambulate 600 feet or ambulate 5 minutes with independence with RPE of 14 or lower. (Progressing) Start: 07/26/24 Expected End: 08/23/24 Patient will be independent with P&C exercises. (Progressing) Start: 07/26/24 Expected End: 08/23/24 Patient will be independent with managing secretions and home walking program. (Progressing) Start: 07/26/24 Expected End: 08/23/24 Pain - Adult Therapy Time Individual Co-treatment Time In 1246 Time Out 1309 Minutes 23 Timed Code Treatment Minutes: 23 Minutes (Gait, TP) Lilo Powell PTA [facility] Progress Note Epicardial pacing wi re pulled without difficulty per protocol. Patient and nurse educated on possible complications. Patient tolerated well. Will continue to monitor. Chest tubes assessed: no air leak, subcutaneous air noted. Chest tubes removed without difficulty and dressing applied. Patient tolerated well. Patient and nurse educated on possible complications to observe for. Will continue to monitor. SESAR Kelly CNP 07/28/24 [facility] Progress Note ------ -- Attestation signed by Mike Mosley MD at 07/28/2024 2:39 PM I have personally performed a face to face diagnostic evaluation on this patient today on 07/28/24. Labs, imaging studies, and electronic medical record notes on [employer] have been reviewed by me. This note documented and discussed by the []community arts officer []Fellow [x] CHIQUIS reflects my history, exam and medical decision making. I have reviewed and agree with the care plan. Changes were made in the orders as necessary. ROS documentation was reviewed and negative unless otherwise stated in the HPI. My history, exam, assessment and plan are as follows: Some elements copied from my notes, which have been updated where appropriate. All reflect current medical decision making from 07/28/24. Physical Exam listed was completed in entirely on 07/28/24 and is unchanged except where noted. 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 male referred by Dr. Tineo for CABG. Patient's PMHx includes CAD (s/p several PCI, most recently 2011 - LAD, LCx, distal RCA with known PHYSICIAN NON INVASIVE CARDIOLOGIST D2), preserved LVEF (65%), HTN, HLD, PAD (follows with vascular at [facility]), prior tobacco use, pulmonary nodules, adenocarcinoma s/p RUL lobectomy 01/2024 (follows with Pulmonology), and psoriasis. Patient had presented to [facility] ED with a sharp pain in the center of his chest with left shoulder ache. He had associated diaphoresis and nausea. EKG was normal.Troponin was WNL. Discharged and advised to follow up with Cardiology. A stress echocardiogram was ordered and completed on 06/25/24 which was abnormal. He then underwent a heart catheterization on 07/08/24 which demonstrated multivessel CAD. Seen by Dr. Martinez in OP setting, agreeable to CABG, scheduled for 07/25/24. Surgery/Procedure: 07/25/24: Dr. Martinez- CABG x3 (GREY-LAD, SVG-Diag, SVG-PDA), LAD endarterectomy LEVH, ZARI Interval History: 07/28/24, POD#3: VSS, afebrile, NSR on tele. On RA. Patients main concern is regarding his shoulder pain and feeling he needs this managed as an outpatient- discussed referral to pain management as OP. [address] output in last 24hrs- noted improvement of L pleural effusion on CXR. Minimal output overnight. Review of Systems Constitutional: Positive for activity change, appetite change and fatigue. Negative for diaphoresis and fever. Respiratory: Negative for cough, shortness of breath and wheezing. Cardiovascular: Negative for chest pain, palpitations and leg swelling. Gastrointestinal: Negative for abdominal distention, abdominal pain, nausea and vomiting. Skin: Negative for color change, pallor and rash. Objective: CT output cc/24hrs: 920 mL Last BM Date: 07/27/24 Vitals: BP: 103/65, MAP (mmHg): 75, BP Method: Automatic Heart Rate: 80 Resp: 18 Temp: 36.8 ?C (98.2 ?F), Temp Source: Temporal BMI (Calculated): 27.79 Pacer Wires: V-wires CXR: BMP: Recent Labs 07/25/24 1156 07/25/24 1313 07/26/24 1217 07/27/24 0000 07/28/24 0105 NA 140 < > 139 137 136 K 4.0 < > 4.2 3.6 3.6 CL 113* < > 110* 106 101 CO2 23 < > 23 25 31 BUN 15 < > 21 22 23 CREATININE 0.93 < > 1.02 0.97 0.90 CALCIUM 10.8* < > 8.5* 8.7* 9.0 MG 5.5* < > 2.5 2.2 2.1 PHOS 2.2* -- -- -- -- < > = values in this interval not displayed. CBC: Recent Labs 07/27/24 0000 07/27/24 1133 07/28/24 0105 WBC 5.8 6.4 5.0 HGB 8.5* 9.5* 8.1* HCT 26.2* 28.9* 24.3* PLT 66* 81* 68* MCV 86.8 86.8 85.3 RDW 14.6 14.3 14.1 INR: Recent Labs 07/26/24 1217 07/27/24 0000 07/28/24 0105 INR 1.1 1.0 1.1 Physical Exam Cardiovascular: Rate and Rhythm: Normal rate and regular rhythm. Heart sounds: Normal heart sounds. No murmur heard. No friction rub. Pulmonary: Effort: Pulmonary effort is normal. Breath sounds: No decreased breath sounds, wheezing or rhonchi. Musculoskeletal: Right lower leg: No edema. Left lower leg: No edema. Skin: General: Skin is warm and dry. Capillary Refill: Capillary refill takes less than 2 seconds. Findings: Bruising and ecchymosis present. Comments: Surgical Incisions: well approximate; clean dry with no drainage noted. Surrounding skin no redness, warmth, or signs of infection noted. Neurological: Mental Status: He is al (more content not included)... Normal [facility] Vital signson 07-28-2024 Heart rate 78 /min bpm [facility] XR CHEST 1 VIEWon 07-28-2024 XR CHEST 1 VIEW Patient Name: SHARONDA FLORES : 1955 [id number] Exam Date/Time: 07/28/2024 05:27 Procedure: XR CHEST 1 VIEW Ordering Provider: GARCIA ANDREW Reason For Exam: Shortness of breath CLINICAL INFORMATION: Shortness of breath. Portable view of the chest at 0525 hours is provided and compared to a previous study dated July 27, 2024. FINDINGS: A tunneled line is in place via the right internal jugular vein. The distal tip is in the superior vena cava. The patient is status post CABG with the usual sternal wires and surgical clips. The cardiac silhouette and mediastinum are otherwise unremarkable. Mediastinal left-sided chest tubes are in place. There is no pneumothorax. The aeration of the lungs has significantly improved. IMPRESSION: 1. Postoperative changes. 2. Chest tubes without pneumothorax. 3. Significant improvement in the aeration of the lungs when compared to yesterday's study. Report Dictated on Electronically Signed By: Elijah Bañuelos MD Electronically Signed Date/Time: 07/28/2024 5:52 AM EST Normal [facility] XR Chest Single viewon 07-28 1. Postoperative viky nges. 2. Chest tubes without pneumothorax. 3. Significant improvement in the aeration of the lungs when compared to yesterday's study. Report Dictated on Electronically Signed By: Elijah Bañuelos MD Electronically Signed Date/Time: 07/28/2024 5:52 AM EST [facility] Patient Name: SHARONDA FLORES : 1955 Exam Date/Time: 07/28/2024 05:27 Procedure: XR CHEST 1 VIEW Ordering Provider: GARCIA ANDREW Reason For Exam: Shortness of breath CLINICAL INFORMATION: Shortness of breath. Portable view of the chest at 0525 hours is provided and compared to a previous study dated July 27, 2024. FINDINGS: A tunneled line is in place via the right internal jugular vein. The distal tip is in the superior vena cava. The patient is status post CABG with the usual sternal wires and surgical clips. The cardiac silhouette and mediastinum are otherwise unremarkable. Mediastinal left-sided chest tubes are in place. There is no pneumothorax. The aeration of the lungs has significantly improved. [facility] Elijah Bañuelos MD - 07/28/2024 Patient Name: SHARONDA FLORES : 1955 Exam Date/Time: 07/28/2024 05:27 Procedure: XR CHEST 1 VIEW Ordering Provider: GARCIA ANDREW Reason For Exam: Shortness of breath CLINICAL INFORMATION: Shortness of breath. Portable view of the chest at 0525 hours is provided and compared to a previous study dated July 27, 2024. FINDINGS: A tunneled line is in place via the right internal jugular vein. The distal tip is in the superior vena cava. The patient is status post CABG with the usual sternal wires and surgical clips. The cardiac silhouette and mediastinum are otherwise unremarkable. Mediastinal left-sided chest tubes are in place. There is no pneumothorax. The aeration of the lungs has significantly improved. IMPRESSION: 1. Postoperative changes. 2. Chest tubes without pneumothorax. 3. Significant improvement in the aeration of the lungs when compared to yesterday's study. Report Dictated on Electronically Signed By: Elijah Bañuelos MD Electronically Signed Date/Time: 07/28/2024 5:52 AM EST [facility] Radiology Study observation (narrative) [facility] XR Chest Single viewOrdered By: Elijah Bañuelos on 07-28-2024 [facility] [employer] Work Phone: BASIC METABOLIC PANELon 07-01 Anion gap [Moles/Vol] 6 mmol/L Normal 3-13 [facility] Comment on above: Performed By: #### L [id number], LAB15 ####Scientific Illustrator: MARILEE ALVARADO ([id number])[facility])[address] [place] [address] Calcium [Mass/Vol] 8.7 mg/dL Low 8.8-10.0 [facility] Comment on above: Performed By: #### L AB103, LAB15 ####Scientific Illustrator: MARILEE ALVARADO ([id number])[facility] [place] [address] Chloride [Moles/Vol] 106 mmol/L Normal 98-107 [facility] Comment on above: Performed By: #### L AB103, LAB15 ####Scientific Illustrator: MARILEE ALVARADO ([id number])[facility] ([facility])[address] [place] [address] CO2 [Moles/Vol] 25 mmol/L Normal 23-31 [facility] Comment on above: Performed By: #### L AB103, LAB15 ####Scientific Illustrator: MARILEE ALVARADO ([id number])[facility] ([facility])[address] [place] [address] Creatinine [Mass/Vol] 0.97 mg/dL Normal 0.72-1.25 [facility] Comment on above: Performed By: #### L AB103, LAB15 ####Scientific Illustrator: MARILEE ALVARADO ([id number])[facility] ([facility])[address] [place] [address] GLOMERULAR FILTRATION RATE ML/MIN/1.73 SQ M.PREDICTED 84.5 mL/min/1.73m*2 Normal >60.0 [facility] Comment on above: Result Comment: Calc ulation based on the Chronic Kidney Disease Epidemiology Collaboration (CKD-EPI) equation refit without adjustment for race Performed By: #### L AB103, LAB15 ####Scientific Illustrator: MARILEE ALVARADO ([id number])[facility])[address] [place] [address] Glucose [Mass/Vol] 115 mg/dL Normal 82-115 [facility] Comment on above: Performed By: #### L AB103, LAB15 ####Scientific Illustrator: MARILEE ALVARADO ([id number])[facility])[address] [place] [address] Potassium [Moles/Vol] 3.6 mmol/L Normal 3.5-5.1 [facility] Comment on above: Result Comment: [facility] potassium values may be up to 0.5 mmol/L lower than serum values. Performed By: #### L AB103, LAB15 ####Scientific Illustrator: MARILEE ALVARADO ([id number])[facility])[address] [place] [address] Sodium [Moles/Vol] 137 mmol/L Normal 136-145 [facility] Comment on above: Performed By: #### L AB103, LAB15 ####Scientific Illustrator: MARILEE ALVARADO ([id number])[address] Urea nitrogen [Mass/Vol] 22 mg/dL Normal 9-23 [facility] Comment on above: Performed By: #### L AB103, LAB15 ####Scientific Illustrator: MARILEE ALVARADO ([id number])[address] Basic metabolic 1998 panelon 07-27-2024 Anion gap [Moles/Vol] 6 mmol/L 3 - 13 mmol/L [facility] Calcium [Mass/Vol] 8.7 mg/dL Low 8.8 - 10. 0 mg/dL [facility] Chloride [Moles/Vol] 106 mmol/L 98 - 10 7 mmol/L [facility] CO2 [Moles/Vol] 25 mmol/L 23 - 31 mmol/L [facility] Creatinine [Mass/Vol] 0.97 mg/dL 0.72 - 1.25 mg/dL [facility] GFR/1.73 sq M.predicted (S/P/Bld) [Vol rate/Area] 84.5 mL/min - PINF [facility] Comment on above: Calculation based on the Chronic Kidney Disease Epidemiology Collaboration (CKD-EPI) equation refit without adjustment for race Glucose [Mass/Vol] 115 mg/dL 82 - 115 mg/dL [facility] Interpretation and review of laboratory results Abnormal [facility] Potassium [Moles/Vol] 3.6 mmol/L 3.5 - 5.1 mmol/L [facility] Comment on above: Plasma potassium ivan ues may be up to 0.5 mmol/L lower than serum values. Sodium [Moles/Vol] 137 mmol/L 136 - 145 mmol/L [facility] Urea nitrogen [Mass/Vol] 22 mg/dL 9 - 23 mg/dL [facility] CBC (HEMOGRAM)on 07-27-2024 Erythrocyte distribution width (RBC) [Ratio] 14.3 % Normal 11.5-15.0 [facility] Comment on above: Performed By: #### L [id number] ####Scientific Illustrator: MARILEE ALVARADO ([id number])[address] Hematocrit (Bld) [Volume fraction] 28.9 % Low 40.0-52.0 [facility] Comment on above: Performed By: #### L [id number] ####Scientific Illustrator: MARILEE ALVARADO ([id number])[facility])[address] [place] [address] Hemoglobin (Bld) [Mass/Vol] 9.5 g/dL Low 13.0-18.0 [facility] Comment on above: Performed By: #### L [id number] ####Scientific Illustrator: MARILEE ALVARADO ([id number])[facility])[address] [place] [address] [place] IPF 8 Normal [facility] Comment on above: Performed By: #### L [id number] ####Scientific Illustrator: MARILEE ALVARADO ([id number])[facility])[address] [place] [address] MCH (RBC) [Entitic mass] 28.5 pg Normal 26.0-34.0 [facility] Comment on above: Performed By: #### L AB294 ####Scientific Illustrator: MARILEE ALVARADO ([id number])[facility])[address] [place] [address] MCHC 32.9 % Normal 30.5-36.0 [facility] Comment on above: Performed By: #### L AB294 ####Scientific Illustrator: MARILEE ALVARADO ([id number])[facility])[address] [place] [address] MCV (RBC) [Entitic vol] 86.8 fL Normal 77.0-99.0 S [facility] Comment on above: Performed By: #### L [id number] ####Scientific Illustrator: MARILEE ALVARADO ([id number])[facility] ([facility])[address] [place] [address] Platelet mean volume (Bld) [Entitic vol] 12.1 fL Normal 9.0-12.7 [facility] Comment on above: Performed By: #### L [id number] ####Scientific Illustrator: MARILEE ALVARADO ([id number])[facility])[address] [place] [address] Platelets (Bld) [#/Vol] 81 10*3/uL Low 140-440 S [facility] Comment on above: Performed By: #### L AB294 ####Scientific Illustrator: MARILEE ALVARADO ([id number])[facility])[address] [place] [address] RBC (Bld) [#/Vol] 3.33 10*6/uL Low 4.40-5.90 [facility] Comment on above: Performed By: #### L [id number] ####Scientific Illustrator: MARILEE ALVARADO ([id number])[facility])[address] [place] [address] WBC (Bld) [#/Vol] 6.4 10*3/uL Normal 3.6-10.7 [facility] Comment on above: Performed By: #### L AB294 ####Scientific Illustrator: MARILEE ALVARADO ([id number])[facility])[address] [place] [address] Erythrocyte distribution width (RBC) [Ratio] 14.6 % Normal 11.5-15.0 [facility] Comment on above: Performed By: #### L AB294 ####Scientific Illustrator: MARILEE ALVARADO ([id number])[address] Hematocrit (Bld) [Volume fraction] 26.2 % Low 40.0-52.0 [facility] Comment on above: Performed By: #### L [id number] ####Scientific Illustrator: MARILEE ALVARADO ([id number])[address] Hemoglobin (Bld) [Mass/Vol] 8.5 g/dL Low 13.0-18.0 [facility] Comment on above: Performed By: #### L [id number] ####Scientific Illustrator: MARILEE ALVARADO ([id number])[address] IPF 6 Normal [facility] Comment on above: Performed By: #### L [id number] ####Scientific Illustrator: MARILEE ALVARADO ([id number])[facility])[address] [place] [address] MCH (RBC) [Entitic mass] 28.1 pg Normal 26.0-34.0 [facility] Comment on above: Performed By: #### L [id number] ####Scientific Illustrator: MARILEE ALVARADO ([id number])[facility])[address] [place] [address] MCHC 32.4 % Normal 30.5-36.0 [facility] Comment on above: Performed By: #### L [id number] ####Scientific Illustrator: MARILEE ALVARADO ([id number])[facility] ([facility])[address] [place] [address] MCV (RBC) [Entitic vol] 86.8 fL Normal 77.0-99.0 [facility] Comment on above: Performed By: #### L [id number] ####Scientific Illustrator: MARILEE ALVARADO ([id number])[facility] ([facility])[address] [place] [address] Platelet mean volume (Bld) [Entitic vol] 11.7 fL Normal 9.0-12.7 [facility] Comment on above: Performed By: #### L [id number] ####Scientific Illustrator: MARILEE ALVARADO ([id number])[facility] ([facility])[address] [place] [address] Platelets (Bld) [#/Vol] 66 10*3/uL Low 140-440 [facility] Comment on above: Performed By: #### L [id number] ####Scientific Illustrator: MARILEE ALVARADO ([id number])[facility] ([facility])[address] [place] [address] RBC (Bld) [#/Vol] 3.02 10*6/uL Low 4.40-5.90 [facility] Comment on above: Performed By: #### L [id number] ####Scientific Illustrator: MARILEE ALVARADO ([id number])[facility] ([facility])[address] [place] [address] WBC (Bld) [#/Vol] 5.8 10*3/uL Normal 3.6-10.7 [facility] Comment on above: Performed By: #### L [id number] ####Scientific Illustrator: MARILEE ALVARADO ([id number])[facility])[address] [place] [address] CBC panel Auto (Bld)on 12-28 -2024 Erythrocyte distribution width (RBC) [Ratio] 14.3 % 11.5 - 15.0 % [facility] Hematocrit (Bld) [Volume fraction] 28.9 % Low 40.0 - 52.0 % [facility] Hemoglobin (Bld) [Mass/Vol] 9.5 g/dL Low 13.0 - 18.0 g/dL [facility] Interpretation and review of laboratory results Abnormal [facility] IPF 8 [facility] MCH (RBC) [Entitic mass] 28.5 pg 26.0 - 34.0 pg [facility] MCHC (RBC) [Mass/Vol] 32.9 % 30.5 - 36.0 % [facility] MCV (RBC) [Entitic vol] 86.8 fL 77.0 - 99.0 fL [facility] Platelet mean volume (Bld) [Entitic vol] 12.1 fL 9.0 - 12.7 fL [facility] Platelets (Bld) [#/Vol] 81 10*3/uL Low 140 - 440 10*3/uL [facility] RBC (Bld) [#/Vol] 3.33 10*6/uL Low 4.40 - 5.90 10*6/uL [facility] WBC (Bld) [#/Vol] 6.4 10*3/uL 3.6 - 10.7 10*3/uL [facility] Erythrocyte distribution width (RBC) [Ratio] 14.6 % 11.5 - 15.0 % [facility] Hematocrit (Bld) [Volume fraction] 26.2 % Low 40.0 - 52.0 % [facility] Hemoglobin (Bld) [Mass/Vol] 8.5 g/dL Low 13.0 - 18.0 g/dL [facility] Interpretation and review of laboratory results Abnormal [facility] IPF 6 [facility] MCH (RBC) [Entitic mass] 28.1 pg 26.0 - 34.0 pg [facility] MCHC (RBC) [Mass/Vol] 32.4 % 30.5 - 36.0 % [facility] MCV (RBC) [Entitic vol] 86.8 fL 77.0 - 99.0 fL [facility] Platelet mean volume (Bld) [Entitic vol] 11.7 fL 9.0 - 12.7 fL [facility] Platelets (Bld) [#/Vol] 66 10*3/uL Low 140 - 440 10*3/uL [facility] RBC (Bld) [#/Vol] 3.02 10*6/uL Low 4.40 - 5.90 10*6/uL [facility] WBC (Bld) [#/Vol] 5.8 10*3/uL 3.6 - 10.7 10*3/uL [facility] Laboratory - Chemistry and C hemistry - challengeon 07-27-2024 Glucose [Mass/Vol] 120 mg/dL High 70 - 100 mg/dL [facility] Magnesium [Mass/Vol] 2.2 mg/dL 1.6 - 2 .6 mg/dL [facility] Laboratory - Coagulationon 1 09-27-2023 aPTT Coag (PPP) [Time] 27.1 s 20.0 - 30.5 s [facility] INR Coag (PPP) [Relative time] 1 {INR} 0.9 - 1.1 [facility] Comment on above: Recommended Anticoag ulant Therapy: SEE BELOW ----- INR of 2.0 - 3.0 : - Prophylaxis of Venous Thrombosis (high-risk surgery) - Treatment of Venous Thrombosis - Treatment of Pulmonary Embolism (Includes tissue heart valves, Acute Myocardial Infarction to prevent systemic embolism, Valvular Heart Disease, and Atrial Fibrillation) ----- INR of 2.5 - 3.5 : - Mechanical Prosthetic Valves (high risk) - If oral anticoagulant therapy is used to prevent Myocardial Infarction PT Coag (Bld) [Time] 11.7 s 9.0 - 1 2.0 s [facility] MAGNESIUMon 07-27-2024 Magnesium [Mass/Vol] 2.2 mg/dL Normal 1.6-2.6 [facility] Comment on above: Result Comment: MIKE Carr COMMENTS: Higher values can be expected in females during menses. Performed By: #### L [id number], LAB15 ####Scientific Illustrator: MARILEE ALVARADO ([id number])[facility] ([id number] Magnesium [Mass/Vol]on 07-27 Interpretation and review of laboratory results Normal [facility] Higher values can be expected in females during menses. [facility] [employer] No Panel Informationon 07-27 Interpretation and review of laboratory results Abnormal [facility] Performed by: [facility], [address] [address] CLIA ID: [id number] [facility] Interpretation and review of laboratory results Normal [facility] PROTIME AND APTTon aPTT Coag (Bld) [Time] 27.1 s Normal 20.0-30.5 [facility] Comment on above: Performed By: #### L [id number] ####Scientific Illustrator: MARILEE ALVARADO ([id number])[facility] [place] [address] INR Coag (PPP) [Relative time] 1.0 {INR} Normal 0.9-1.1 [facility] Comment on above: Result Comment: Adebayo mmended Anticoagulant Therapy: SEE BELOW ----- INR of 2.0 - 3.0 : - Prophylaxis of Venous Thrombosis (high-risk surgery) - Treatment of Venous Thrombosis - Treatment of Pulmonary Embolism (Includes tissue heart valves, Acute Myocardial Infarction to prevent systemic embolism, Valvular Heart Disease, and Atrial Fibrillation) ----- INR of 2.5 - 3.5 : - Mechanical Prosthetic Valves (high risk) - If oral anticoagulant therapy is used to prevent Myocardial Infarction Performed By: #### L [id number] ####Scientific Illustrator: MARILEE ALVARADO ([id number])[facility] ([facility])[address] [place] [address] PT Coag (PPP) [Time] 11.7 s Normal 9.0-12.0 [facility] Comment on above: Performed By: #### L [id number] ####Scientific Illustrator: MARILEE ALVARADO ([id number])[facility] ([facility])[address] [place] [address] Progress Noteon 07-27-2024 Progress Note [employer] Medicine Division of Endocrinology, Diabetes, & Metabolism Endocrinology Note Patient Name: Sharonda Flores : 1955 AGE: 69 y.o. Room/Bed: T1-109/T1-109 A Admission Date: 07/25/2024 Visit Date: 07/27/2024 Reason for Endocrine Consult: Stress hyperglycemia Provider/Team Requesting Consult: Cardiology PCP: Tima Tello MD Outpt Industrial Therapist: No ASSESSMENT: Stress induced hyperglycemia Steroid induced hyperglycemia Status post CABGx3 CAD PLAN: Glucose readings are reasonable without any other coverage Discontinue Humalog correction scale May obtain a blood glucose readings as needed Endocrinology service will sign off ICU goal <180 GMF goal <150 POCT BG ACHS Hypoglycemia management per protocol Carb controlled diet ANTICIPATED ENDOCRINE HOME GOING RECOMMENDATIONS: Optimized for Discharge from Endocrine standpoint: Yes Home Going Endocrine Rx Recommendations-- None Outpt Follow Up-- PCP SUBJECTIVE/HPI: CHIEF COMPLAINT: Status post CABG Interval events 07/27 Reported constipation was given laxatives Blood glucose readings reasonable 07/26 Has been extubated. Chest tube in place. On pacer Gtt: none at this time Blood glucose still tightly controlled Discussed with patient, no history DM or thyroid Feeling better, sore Has not eaten, plans to eat later today. Drinking water and carlos manuel young 07/25 Intubated and chest tube in place, on pacer Gtt: propofol and insulin (off at time of consult) No pressors are on Received dexamethasone earlier today Blood glucose tightly controlled at this time No history of DM, no A1C available Will clarify patient medical history once extubated Type of DM: NA Onset of DM: NA Home DM Medication Regimen: NA DM control (last A1c/glucose data): Lab Results Component Value Date HGBA1C 6.0 (H) 07/25/2024 Glucose Date/Time Value Ref Range Status 07/27/2024 08:21 AM 120 (H) 70 - 100 mg/dL Final 07/26/2024 05:37 PM 106 (H) 70 - 100 mg/dL Final 07/26/2024 06:59 AM 112 (H) 70 - 100 mg/dL Final 07/26/2024 04:07 AM 101 (H) 70 - 100 mg/dL Final 07/26/2024 01:58 AM 113 (H) 70 - 100 mg/dL Final 07/26/2024 01:16 AM 107 (H) 70 - 100 mg/dL Final Review of Systems Constitutional: Positive for fatigue. Negative for activity change, appetite change and unexpected weight change. Gastrointestinal: Negative for diarrhea, nausea and vomiting. Endocrine: Negative for polydipsia, polyphagia and polyuria. Genitourinary: Negative for dysuria. Musculoskeletal: Positive for myalgias. Skin: Negative for color change and pallor. ROS negative except for those mentioned in HPI. OBJECTIVE: Vitals: 07/27/24 0510 07/27/24 0600 07/27/24 0700 07/27/24 0800 BP: 102/57 106/57 128/58 BP Location: Right arm Patient Position: Sitting Pulse: 78 74 81 Resp: 20 18 Temp: 36.1 ?C (97 ?F) TempSrc: Temporal SpO2: 95% 96% 97% Weight: 179 lb 3.7 oz (81.3 kg) Height: Physical Exam Vitals reviewed. Constitutional: General: He is not in acute distress. Appearance: Normal appearance. HENT: Head: Normocephalic and atraumatic. Right Ear: External ear normal. Left Ear: External ear normal. Nose: Nose normal. Mouth/Throat: Pharynx: Oropharynx is clear. Eyes: Extraocular Movements: Extraocular movements intact. Cardiovascular: Rate and Rhythm: Normal rate. Pulmonary: Effort: Pulmonary effort is normal. Chest: Comments: Chest tube in place Skin: General: Skin is warm and dry. Comments: Midline incision intact Neurological: General: No focal deficit present. Mental Status: He is alert and oriented to person, place, and time. Psychiatric: Mood and Affect: Mood normal. Behavior: Behavior normal. Thought Content: Thought content normal. Judgment: Judgment normal. 24 hour intake/output: Intake/Output Summary (Last 24 hours) at 07/27/2024 1030 Last data filed at 07/27/2024 0900 Gross per 24 hour Intake 571 ml Output 1045 ml Net -474 ml Diet: Adult diet Regular; 5 carb choices (75 gm/meal); Low Fat/Low Chol/High Fiber/ISAIAS Medications (as per EMR): HomeMeds: Current Outpatient Medications Medication Instructions aspirin 81 mg, Daily before breakfast atorvastatin (LIPITOR) 80 mg, Oral, Every evening carvedilol (COREG) 6.25 mg, Oral, 2 times daily ezetimibe (ZETIA) 10 mg, Daily before breakfast isosorbide mononitrate ER (IMDUR) 30 mg, Oral, Daily, Do not crush or chew. mupirocin (Bactroban) 2 % ointment Apply liberal amount per nostril the night before surgery and then again the morning of surgery nitroglycerin (Nitrostat) 0.4 MG SL tablet DISSOLVE 1 TABLET UNDER THE TONGUE EVERY 5 MINUTES NEEDED. Scheduled Meds:acetaminophen, 1,000 mg, Oral, q8h aspirin, 81 mg, Oral, Daily atorvastatin, 80 mg, Oral, Daily chlorhexidine, 15 mL, Mouth/Throat, BID furosemide, 40 mg, IntraVENous, BID lactulose, 20 g, Oral (more content not included)... Normal [facility] Progress Note ------ -- Attestation signed by Mike Mosley MD at 07/27/2024 11:30 AM I have personally performed a face to face diagnostic evaluation on this patient today on 07/27/24. Labs, imaging studies, and electronic medical record notes on [employer] have been reviewed by me. This note documented and discussed by the []community arts officer []Fellow [x] CHIQUIS reflects my history, exam and medical decision making. I have reviewed and agree with the care plan. Changes were made in the orders as necessary. ROS documentation was reviewed and negative unless otherwise stated in the HPI. My history, exam, assessment and plan are as follows: Some elements copied from my notes, which have been updated where appropriate. All reflect current medical decision making from 07/27/24. Physical Exam listed was completed in entirely on 07/27/24 and is unchanged except where noted. 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 male referred by Dr. Tineo for CABG. Patient's PMHx includes CAD (s/p several PCI, most recently 2011 - LAD, LCx, distal RCA with known PHYSICIAN NON INVASIVE CARDIOLOGIST D2), preserved LVEF (65%), HTN, HLD, PAD (follows with vascular at [facility]), prior tobacco use, pulmonary nodules, adenocarcinoma s/p RUL lobectomy 01/2024 (follows with Pulmonology), and psoriasis. Patient had presented to [facility] ED with a sharp pain in the center of his chest with left shoulder ache. He had associated diaphoresis and nausea. EKG was normal.Troponin was WNL. Discharged and advised to follow up with Cardiology. A stress echocardiogram was ordered and completed on 06/25/24 which was abnormal. He then underwent a heart catheterization on 07/08/24 which demonstrated multivessel CAD. Seen by Dr. Martinez in OP setting, agreeable to CABG, scheduled for 07/25/24. Surgery/Procedure: 07/25/24: Dr. Martinez- CABG x3 (GREY-LAD, SVG-Diag, SVG-PDA), LAD endarterectomy LEVH, ZARI Interval History: 07/27/24, POD# 2: VSS, afebrile, NSR on tele. On 2L NC. Resting in chair, has ambulated in hallway. Reports some nausea with pain medication, low appetite, he is drinking fluids. Plts- 66 (58) Hgb- 8.5, stable Cr- 0.97 Review of Systems Constitutional: Positive for activity change, appetite change and fatigue. Negative for diaphoresis and fever. Respiratory: Negative for cough, shortness of breath and wheezing. Cardiovascular: Negative for chest pain, palpitations and leg swelling. Gastrointestinal: Negative for abdominal distention, abdominal pain, nausea and vomiting. Skin: Negative for color change, pallor and rash. Objective: CT output cc/24hrs: 330 mL UO cc/24hrs: 590 mL Last BM Date: 07/24/24 (preop) Vitals: BP: 106/57, MAP (mmHg): 73, BP Method: Automatic Heart Rate: 74 Resp: 20 Temp: 36.8 ?C (98.3 ?F), Temp Source: Temporal BMI (Calculated): 29.83 Pacer Wires: V-wires CXR: BMP: Recent Labs 07/25/24 1156 07/25/24 1313 07/26/24 0009 07/26/24 1217 07/27/24 0000 NA 140 < > 142 139 137 K 4.0 < > 4.5 4.2 3.6 CL 113* < > 111* 110* 106 CO2 23 < > 23 23 25 BUN 15 < > 16 21 22 CREATININE 0.93 < > 1.14 1.02 0.97 CALCIUM 10.8* < > 8.4* 8.5* 8.7* MG 5.5* -- 2.6 2.5 2.2 PHOS 2.2* -- -- -- -- < > = values in this interval not displayed. CBC: Recent Labs 07/26/24 0520 07/26/24 1217 07/27/24 0000 WBC 4.4 5.0 5.8 HGB 8.8* 8.6* 8.5* HCT 26.2* 25.9* 26.2* PLT 57* 58* 66* MCV 85.6 85.8 86.8 RDW 14.4 14.6 14.6 INR: Recent Labs 07/26/24 0009 07/26/24 1217 07/27/24 0000 INR 1.1 1.1 1.0 Physical Exam Cardiovascular: Rate and Rhythm: Normal rate and regular rhythm. Heart sounds: Normal heart sounds. No murmur heard. No friction rub. Pulmonary: Effort: Pulmonary effort is normal. Breath sounds: Examination of the right-lower field reveals decreased breath sounds. Examination of the left-lower field reveals decreased breath sounds. Decreased breath sounds (L>R) present. No wheezing or rhonchi. Musculoskeletal: Right lower leg: No edema. Left lower leg: No edema. Skin: General: Skin is warm and dry. Capillary Refill: Capillary refill takes less than 2 seconds. Findings: Bruising and ecchymosis present. Comments: Surgical Incisions: well approximate; clean dry with no attila (more content not included)... Normal [facility] XR CHEST 1 VIEWon 07-27-2024 XR CHEST 1 VIEW Patient Name: SHARONDA FLORES : 1955 Exam Date/Time: 07/27/2024 05:24 Procedure: XR CHEST 1 VIEW Ordering Provider: GARCIA ANDREW Reason For Exam: Shortness of breath CLINICAL INDICATION: Shortness of breath COMPARISON: 07/26/2024 TECHNIQUE: Single portable AP radiograph of the chest. FINDINGS: LUNGS/PLEURA:Again seen is a moderate-sized left-sided pleural effusion. No new infiltrate or effusion. Unchanged deviation of trachea to the right. MEDIASTINUM:Heart size and mediastinal contours are normal. VASCULARITY: Mild pulmonary vascular congestion. BONES:Unremarkable SUPPORT LINES: Right-sided central line terminates at the cavoatrial junction. OTHER: IMPRESSION: Unchanged moderate-sized left-sided pleural effusion with pulmonary vascular congestion. No new infiltrate or effusion. Report Dictated on Electronically Signed By: Carlitos Moser MD Electronically Signed Date/Time: 07/27/2024 8:04 AM [facility] Normal [facility] XR Chest Single viewon 07-27 Unchanged moderate-s ized left-sided pleural effusion with pulmonary vascular congestion. No new infiltrate or effusion. Report Dictated on Electronically Signed By: Carlitos Moser MD Electronically Signed Date/Time: 07/27/2024 8:04 AM [facility] Patient Name: SHARONDA FLORES : 1955 Exam Date/Time: 07/27/2024 05:24 Procedure: XR CHEST 1 VIEW Ordering Provider: GARCIA ANDREW Reason For Exam: Shortness of breath CLINICAL INDICATION: Shortness of breath COMPARISON: 07/26/2024 TECHNIQUE: Single portable AP radiograph of the chest. FINDINGS: LUNGS/PLEURA:Again seen is a moderate-sized left-sided pleural effusion. No new infiltrate or effusion. Unchanged deviation of trachea to the right. MEDIASTINUM:Heart size and mediastinal contours are normal. VASCULARITY: Mild pulmonary vascular congestion. BONES:Unremarkable SUPPORT LINES: Right-sided central line terminates at the cavoatrial junction. OTHER: [facility] Natalia Moser MD - 07/27/2024 Patient Name: SHARONDA FLORES : 1955 [id number] Exam Date/Time: 07/27/2024 05:24 Procedure: XR CHEST 1 VIEW Ordering Provider: GARCIA ANDREW Reason For Exam: Shortness of breath CLINICAL INDICATION: Shortness of breath COMPARISON: 07/26/2024 TECHNIQUE: Single portable AP radiograph of the chest. FINDINGS: LUNGS/PLEURA:Again seen is a moderate-sized left-sided pleural effusion. No new infiltrate or effusion. Unchanged deviation of trachea to the right. MEDIASTINUM:Heart size and mediastinal contours are normal. VASCULARITY: Mild pulmonary vascular congestion. BONES:Unremarkable SUPPORT LINES: Right-sided central line terminates at the cavoatrial junction. OTHER: IMPRESSION: Unchanged moderate-sized left-sided pleural effusion with pulmonary vascular congestion. No new infiltrate or effusion. Report Dictated on Electronically Signed By: Carlitos Moser MD Electronically Signed Date/Time: 07/27/2024 8:04 AM EST [facility] Study observation (narrative) [facility] [facility] XR Chest Single viewOrdered By: Natalia Moser on 07-27-2024 [employer] Work Phone: [phone] 07-26-2024 [id number] Riv[employer] Automatic following case for Discharge Needs. [facility] [id number] 07-26-2024 [id number] Patient [facility] ICU s/p CABG x 3 POD # 1. Patient from home alone, is independent, has PCP and prescription coverage. Met with patient at bedside, introduced self and role. Patient agreeable to discharge plan of home with [facility], but does not have anyone to stay with him nor does he plan to stay with anyone. Referral to [facility] for home care. Normal [facility] BASIC METABOLIC PANELon 12-2 Anion gap [Moles/Vol] 6 mmol/L Normal 3-13 [facility] Comment on above: Performed By: #### L AB103, LAB15 ####Scientific Illustrator: MRAILEE ALVARADO ([id number])[facility])[address] [place] [address] Calcium [Mass/Vol] 8.5 mg/dL Low 8.8-10.0 [facility] Comment on above: Performed By: #### L AB103, LAB15 ####Scientific Illustrator: MARILEE ALVARADO ([id number])[facility])[address] [place] [address] Chloride [Moles/Vol] 110 mmol/L High 98-107 [facility] Comment on above: Performed By: #### L AB103, LAB15 ####Scientific Illustrator: MARILEE ALVARADO ([id number])[facility])[address] [place] [address] CO2 [Moles/Vol] 23 mmol/L Normal 23-31 [facility] Comment on above: Performed By: #### L AB103, LAB15 ####Scientific Illustrator: MARILEE ALVARADO ([id number])[facility])[address] [place] [address] Creatinine [Mass/Vol] 1.02 mg/dL Normal 0.72-1.25 [facility] Comment on above: Performed By: #### L AB103, LAB15 ####Scientific Illustrator: MARILEE ALVARADO ([id number])[address] GLOMERULAR FILTRATION RATE ML/MIN/1.73 SQ M.PREDICTED 79.6 mL/min/1.73m*2 Normal >60.0 [facility] Comment on above: Result Comment: Calc ulation based on the Chronic Kidney Disease Epidemiology Collaboration (CKD-EPI) equation refit without adjustment for race Performed By: #### L AB103, LAB15 ####Scientific Illustrator: MARILEE ALVARADO ([id number])[facility])[address] [place] [address] Glucose [Mass/Vol] 95 mg/dL Normal 82-115 [facility] Comment on above: Performed By: #### L AB103, LAB15 ####Scientific Illustrator: MARILEE ALVARADO ([id number])[facility])[address] [place] [address] Potassium [Moles/Vol] 4.2 mmol/L Normal 3.5-5.1 [facility] Comment on above: Result Comment: [facility] potassium values may be up to 0.5 mmol/L lower than serum values. Performed By: #### L AB103, LAB15 ####Scientific Illustrator: MARILEE ALVARADO ([id number])[facility])[address] [place] [address] Sodium [Moles/Vol] 139 mmol/L Normal 136-145 [facility] Comment on above: Performed By: #### L AB103, LAB15 ####Scientific Illustrator: MARILEE ALVARADO ([id number])[facility])[address] [place] [address] Urea nitrogen [Mass/Vol] 21 mg/dL Normal 9-23 [facility] Comment on above: Performed By: #### L AB103, LAB15 ####Scientific Illustrator: MARILEE ALVARADO ([id number])[facility])[address] [place] [address] Anion gap [Moles/Vol] 8 mmol/L Normal 3-13 [facility] Comment on above: Performed By: #### L AB103, LAB15 ####Scientific Illustrator: MARILEE ALVARADO ([id number])[facility])[address] [place] [address] Calcium [Mass/Vol] 8.4 mg/dL Low 8.8-10.0 [facility] Comment on above: Performed By: #### L AB103, LAB15 ####Scientific Illustrator: MARILEE ALVARADO ([id number])[facility])[address] [place] [address] Chloride [Moles/Vol] 111 mmol/L High 98-107 [facility] Comment on above: Performed By: #### L AB103, LAB15 ####Scientific Illustrator: MARILEE ALVARADO ([id number])[facility])[address] [place] [address] [place] CO2 [Moles/Vol] 23 mmol/L Normal 23-31 [facility] [facility] Comment on above: Performed By: #### L [id number], [id number] ####Scientific Illustrator: MARILEE ALVARADO ([id number])[facility])[address] [place] [address] Creatinine [Mass/Vol] 1.14 mg/dL Normal 0.72-1.25 [facility] Comment on above: Performed By: #### L [id number], LAB15 ####Scientific Illustrator: MARILEE ALVARADO ([id number])[facility] ([facility])[address] [place] [address] GLOMERULAR FILTRATION RATE ML/MIN/1.73 SQ M.PREDICTED 69.6 mL/min/1.73m*2 Normal >60.0 [facility] Comment on above: Result Comment: Calc ulation based on the Chronic Kidney Disease Epidemiology Collaboration (CKD-EPI) equation refit without adjustment for race Performed By: #### L [id number], LAB15 ####Scientific Illustrator: MARILEE ALVARADO ([id number])[facility] ([facility])[address] [place] [address] Glucose [Mass/Vol] 100 mg/dL Normal 82-115 [facility] Comment on above: Performed By: #### L [id number], LAB15 ####Scientific Illustrator: MARILEE ALVARADO ([id number])[facility])[address] [place] [address] Potassium [Moles/Vol] 4.5 mmol/L Normal 3.5-5.1 [facility] Comment on above: Result Comment: [facility] potassium values may be up to 0.5 mmol/L lower than serum values. Performed By: #### L [id number], LAB15 ####Scientific Illustrator: MARILEE ALVARADO ([id number])[facility])[address] [place] [address] Sodium [Moles/Vol] 142 mmol/L Normal 136-145 [facility] Comment on above: Performed By: #### L [id number], LAB15 ####Scientific Illustrator: MARILEE ALVARADO ([id number])[facility] ([facility])[address] [place] [address] Urea nitrogen [Mass/Vol] 16 mg/dL Normal 9-23 [facility] Comment on above: Performed By: #### L [id number], LAB15 ####Scientific Illustrator: MARILEE ALVARADO ([id number])[address] Basic metabolic 1998 panelon 07-26-2024 Anion gap [Moles/Vol] 6 mmol/L 3 - 13 mmol/L [facility] Calcium [Mass/Vol] 8.5 mg/dL Low 8.8 - 10. 0 mg/dL [facility] Chloride [Moles/Vol] 110 mmol/L High 98 - 10 7 mmol/L [facility] CO2 [Moles/Vol] 23 mmol/L 23 - 31 mmol/L [facility] Creatinine [Mass/Vol] 1.02 mg/dL 0.72 - 1.25 mg/dL [facility] GFR/1.73 sq M.predicted (S/P/Bld) [Vol rate/Area] 79.6 mL/min - PINF [facility] Comment on above: Calculation based on the Chronic Kidney Disease Epidemiology Collaboration (CKD-EPI) equation refit without adjustment for race Glucose [Mass/Vol] 95 mg/dL 82 - 115 mg/dL [facility] Interpretation and review of laboratory results Abnormal [facility] Potassium [Moles/Vol] 4.2 mmol/L 3.5 - 5.1 mmol/L [facility] Comment on above: Plasma potassium ivan ues may be up to 0.5 mmol/L lower than serum values. Sodium [Moles/Vol] 139 mmol/L 136 - 145 mmol/L [facility] Urea nitrogen [Mass/Vol] 21 mg/dL 9 - 23 mg/dL [facility] Anion gap [Moles/Vol] 8 mmol/L 3 - 13 mmol/L [facility] Calcium [Mass/Vol] 8.4 mg/dL Low 8.8 - 10. 0 mg/dL [facility] Chloride [Moles/Vol] 111 mmol/L High 98 - 10 7 mmol/L [facility] CO2 [Moles/Vol] 23 mmol/L 23 - 31 mmol/L [facility] Creatinine [Mass/Vol] 1.14 mg/dL 0.72 - 1.25 mg/dL [facility] GFR/1.73 sq M.predicted (S/P/Bld) [Vol rate/Area] 69.6 mL/min - PINF [facility] Comment on above: Calculation based on the Chronic Kidney Disease Epidemiology Collaboration (CKD-EPI) equation refit without adjustment for race Glucose [Mass/Vol] 100 mg/dL 82 - 115 mg/dL [facility] Interpretation and review of laboratory results Abnormal [facility] Potassium [Moles/Vol] 4.5 mmol/L 3.5 - 5.1 mmol/L [facility] Comment on above: Plasma potassium ivan ues may be up to 0.5 mmol/L lower than serum values. Sodium [Moles/Vol] 142 mmol/L 136 - 145 mmol/L [facility] Urea nitrogen [Mass/Vol] 16 mg/dL 9 - 23 mg/dL [facility] CALCIUM, IONIZEDon CALCIUM IONIZED 4.20 mg/dL Low 4.30-5.20 [facility] Comment on above: Performed By: #### L [id number] #### Scientific Illustrator: MARILEE ALVARADO ([id number]) [facility] [address] [place] [address] PH, IONIZED CALCIUM 7.41 Normal 7.31-7.46 [facility] Comment on above: Performed By: #### L [id number] #### Scientific Illustrator: MARILEE ALVARADO ([id number]) [facility] [address] [place] [address] CBC (HEMOGRAM)on 07-26-2024 Erythrocyte distribution width (RBC) [Ratio] 14.6 % Normal 11.5-15.0 [facility] Comment on above: Performed By: #### L [id number] #### Scientific Illustrator: MARILEE ALVARADO ([id number]) [facility]) [address] [place] [address] Hematocrit (Bld) [Volume fraction] 25.9 % Low 40.0-52.0 [facility] Comment on above: Performed By: #### L [id number] #### Scientific Illustrator: MARILEE ALVARADO ([id number]) [facility]) [address] [place] [address] Hemoglobin (Bld) [Mass/Vol] 8.6 g/dL Low 13.0-18.0 [facility] Comment on above: Performed By: #### L [id number] #### Scientific Illustrator: MARILEE ALVARADO ([id number]) [address] IPF 8 Normal [facility] Comment on above: Performed By: #### L [id number] #### Scientific Illustrator: MARILEE ALVARADO ([id number]) [facility]) [address] [place] [address] MCH (RBC) [Entitic mass] 28.5 pg Normal 26.0-34.0 [facility] Comment on above: Performed By: #### L [id number] #### Scientific Illustrator: MARILEE ALVARADO ([id number]) [facility]) [address] [place] [address] MCHC 33.2 % Normal 30.5-36.0 [facility] Comment on above: Performed By: #### L [id number] #### Scientific Illustrator: MARILEE ALVARADO ([id number]) [facility]) [address] [place] [address] MCV (RBC) [Entitic vol] 85.8 fL Normal 77.0-99.0 [facility] Comment on above: Performed By: #### L [id number] #### Scientific Illustrator: MARILEE ALVARADO ([id number]) [facility]) [address] [place] [address] Platelet mean volume (Bld) [Entitic vol] 12.0 fL Normal 9.0-12.7 [facility] Comment on above: Performed By: #### L [id number] #### Scientific Illustrator: MARILEE ALVARADO ([id number]) [facility] ([facility]) [address] [place] [address] Platelets (Bld) [#/Vol] 58 10*3/uL Low 140-440 [facility] Comment on above: Performed By: #### L [id number] #### Scientific Illustrator: MARILEE ALVARADO ([id number]) [facility]) [address] [place] [address] RBC (Bld) [#/Vol] 3.02 10*6/uL Low 4.40-5.90 [facility] Comment on above: Performed By: #### L [id number] #### Scientific Illustrator: MARILEE ALVARADO ([id number]) [facility] ([facility]) [address] [place] [address] WBC (Bld) [#/Vol] 5.0 10*3/uL Normal 3.6-10.7 [facility] Comment on above: Performed By: #### L [id number] #### Scientific Illustrator: MARILEE ALVARADO ([id number]) [facility]) [address] [place] [address] Erythrocyte distribution width (RBC) [Ratio] 14.4 % Normal 11.5-15.0 [facility] Comment on above: Performed By: #### L [id number] ####Scientific Illustrator: MARILEE ALVARADO ([id number])[facility])[address] [place] [address] Hematocrit (Bld) [Volume fraction] 26.2 % Low 40.0-52.0 [facility] Comment on above: Performed By: #### L [id number] ####Scientific Illustrator: MARILEE ALVARADO ([id number])[facility])[address] [place] [address] Hemoglobin (Bld) [Mass/Vol] 8.8 g/dL Low 13.0-18.0 [facility] Comment on above: Performed By: #### L [id number] ####Scientific Illustrator: MARILEE ALVARADO ([id number])[facility])[address] [place] [address] IPF 8 Normal [facility] Comment on above: Performed By: #### L [id number] ####Scientific Illustrator: MARILEE ALVARADO ([id number])[facility])[address] [place] [address] MCH (RBC) [Entitic mass] 28.8 pg Normal 26.0-34.0 [facility] Comment on above: Performed By: #### L [id number] ####Scientific Illustrator: MARILEE ALVARADO ([id number])[facility])[address] [place] [address] MCHC 33.6 % Normal 30.5-36.0 [facility] Comment on above: Performed By: #### L [id number] ####Scientific Illustrator: MARILEE ALVARADO ([id number])[facility] ([facility])[address] [place] [address] MCV (RBC) [Entitic vol] 85.6 fL Normal 77.0-99.0 [facility] Comment on above: Performed By: #### L [id number] ####Scientific Illustrator: MARILEE ALVARADO ([id number])[facility])[address] [place] [address] Platelet mean volume (Bld) [Entitic vol] 12.6 fL Normal 9.0-12.7 [facility] Comment on above: Performed By: #### L [id number] ####Scientific Illustrator: MARILEE ALVARADO ([id number])[facility])[address] [place] [address] Platelets (Bld) [#/Vol] 57 10*3/uL Low 140-440 [facility] Comment on above: Performed By: #### L [id number] ####Scientific Illustrator: MARILEE ALVARADO ([id number])[facility] ([facility])[address] [place] [address] RBC (Bld) [#/Vol] 3.06 10*6/uL Low 4.40-5.90 [facility] Comment on above: Performed By: #### L [id number] ####Scientific Illustrator: MARILEE ALVARADO ([id number])[facility] ([facility])[address] [place] [address] WBC (Bld) [#/Vol] 4.4 10*3/uL Normal 3.6-10.7 [facility] Comment on above: Performed By: #### L [id number] ####Scientific Illustrator: MARILEE ALVARADO ([id number])[facility] ([facility])[address] [place] [address] CBC panel Auto (Bld)Ordered By: Tosin Oseguera on 07-26-2024 Erythrocyte distribution width (RBC) [Ratio] 14.6 % 11.5 - 15.0 % [facility] Hematocrit (Bld) [Volume fraction] 25.9 % Low 40.0 - 52.0 % [facility] Hemoglobin (Bld) [Mass/Vol] 8.6 g/dL Low 13.0 - 18.0 g/dL [facility] Interpretation and review of laboratory results Abnormal [facility] IPF 8 [facility] MCH (RBC) [Entitic mass] 28.5 pg 26.0 - 34.0 pg [facility] MCHC (RBC) [Mass/Vol] 33.2 % 30.5 - 36.0 % [facility] MCV (RBC) [Entitic vol] 85.8 fL 77.0 - 99.[address] [facility] Platelet mean volume (Bld) [Entitic vol] 12 fL 9.0 - 12.[address] [facility] Platelets (Bld) [#/Vol] 58 10*3/uL Low 140 - 440 10*3/uL [facility] RBC (Bld) [#/Vol] 3.02 10*6/uL Low 4.40 - 5.90 10*6/uL [facility] WBC (Bld) [#/Vol] 5 10*3/uL 3.6 - 10.7 10*3/uL [facility] CBC panel Auto (Bld)Ordered By: Cherelle Baer on 07-26-2024 Erythrocyte distribution width (RBC) [Ratio] 14.4 % 11.5 - 15.0 % [facility] Hematocrit (Bld) [Volume fraction] 26.2 % Low 40.0 - 52.0 % [facility] Hemoglobin (Bld) [Mass/Vol] 8.8 g/dL Low 13.0 - 18.0 g/dL [facility] Interpretation and review of laboratory results Abnormal [facility] IPF 8 [facility] MCH (RBC) [Entitic mass] 28.8 pg 26.0 - 34.0 pg [facility] MCHC (RBC) [Mass/Vol] 33.6 % 30.5 - 36.0 % [facility] MCV (RBC) [Entitic vol] 85.6 fL 77.0 - 99.0 fL [facility] Platelet mean volume (Bld) [Entitic vol] 12.6 fL 9.0 - 12.7 fL [facility] Platelets (Bld) [#/Vol] 57 10*3/uL Low 140 - 440 10*3/uL [facility] RBC (Bld) [#/Vol] 3.06 10*6/uL Low 4.40 - 5.90 10*6/uL [facility] WBC (Bld) [#/Vol] 4.4 10*3/uL 3.6 - 10.7 10*3/uL [facility] Calcium.ionized [Moles/Vol]o n 07-26-2024 Calcium.ionized (Bld) [Moles/Vol] 4.2 mg/dL Low 4.30 - 5.20 mg/dL [facility] Interpretation and review of laboratory results Abnormal [facility] PH, IONIZED CALCIUM 7.41 7.31 - 7.46 [facility] Consulton 07-26-2024 Consult Nutrition Assessment Type and Reason for Visit: Initial, Consult (s/p open heart) Nutrition Recommendations/Plan: Pt currently ordered No Added Salt, 75 gm CHO Control diet; per MNT protocol will modify to Low fat/low cholesterol/high fiber/ISAIAS diet, will keep CHO restriction as ordered however may be able to remove acutely pending future blood sugars, hemoglobin A1c- 6.0%; RD provided pt with [employer] post-op heart healthy diet pamphlet, suspect pt would benefit from ongoing nutrition/diet instruction as well as education. Per MNT protocol will trial Ensure HP (both flavors) acutely, to promote protein intake and support pt while appetite may be compromised- provides 160 kcal & 16 gm protein per serving. RD to monitor PO intake, weight, labs, fluid, overall nutritional status & follow up weekly. Malnutrition Assessment: Malnutrition Status: At risk for malnutrition (Comment) (pt at risk of acute loss, will trial ONS and monitor adequacy of PO intake post-op) Context: Acute Illness Findings of the 6 clinical characteristics of malnutrition: Energy Intake: Unable to assess (when asked about appetite pt reports prior to surgery eating 'typically' for himself, has low appetite after surgery; after speaking with pt he also reports times at baseline where he doesn't feel hungry and may not eat, otherwise mostly eats out) Weight Loss: Unable to assess (164# at PAT a week ago per chart, pt reports fluctuating weight from 150# (usual weight) up to 170# which he attributes weight gain to lack of exercise; EPIC weight hx reviewed) Body Fat Loss: Unable to assess Muscle Mass Loss: Unable to assess Fluid Accumulation: Unable to assess 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 Strength: Not Performed Nutrition Assessment: Pt with PMH including CAD (s/p several PCI, most recently 2011 - LAD, LCx, distal RCA with known PHYSICIAN NON INVASIVE CARDIOLOGIST D2), preserved LVEF (65%), HTN, HLD, PAD, prior tobacco use, pulmonary nodules, adenocarcinoma s/p RUL lobectomy 01/2024 (follows with Pulmonology), and Psoriasis presented to [facility] with a sharp pain in the center of his chest with left shoulder ache, had associated diaphoresis and nausea, EKG was normal, troponin was WNL, pt was disscharged and advised to follow up with Cardiology, a stress echocardiogram was ordered and completed on 06/25/24 which was abnormal, he then underwent a heart catheterization on 07/08/24 which demonstrated multivessel CAD, pt then seen in OP setting and was agreeable to CABG, scheduled for 07/25 (done yesterday); pt is POD #1 s/p CABG x3 (GREY-LAD, SVG-Diag, SVG-PDA), LAD endarterectomy LEVH, ZARI, last night weaned off levophed, VSS, afebrile, on 1L NC, transfused with 2 PRBC and 2 Cryo postop, diet advanced to ISAIAS, 75 gm CHO Control (no hx of DM). RD spoke with pt in room this morning, pt hasn't eaten yet and agreed to RD ordering some yogurt and fruit; conversation was relatively brief with pt (he had to be reminded that he was at [facility], also was wondering what time of day it is, states 'I missed a day or two I guess') however he was able to provide limited dietary recall (pt admitted to eating 'unhealthy'): he does not eat/prepare meals at home, often will go through drive-thrus such as [employer] or [employer], at [employer] he will get the 'big breakfast' with pancakes, breakfast meats and eggs and will space it out over 3 meals in the same day, likes to get fried shrimp (later corrected to 'grilled shrimp') and burgers when out as well, likesthe convenience of eating out as he lives alone; RD did provide general nutrition recommendations, encouraged foods prepared using methods such as baked or grilled, noted high sodium/fat content of foods like breakfast meats, encouraged intake of nonstarchy vegetables as well as fruit (for micronutrients and fiber), pt reported mostly drinking sweet tea at home, acknowledges he isn't diabetic currently but states 'I might be on my way there', RD suggested sweeteners vs added sugar, made basic recommendations for making healthier choices while eating out however encouraged eating at home more often, can freeze food that's not used and save for a later time; pt also admits that at times he has 'no appetite at all and just won't eat'; RD to trial ONS; provided pt with [employer] Heart Healthy Diet pamphlet and briefly reviewed contents, also provided pt with menu and noted items not permitted on heart healthy diet. Estimated Daily Nutrient Needs: Energy Requirements Based On: Kcal/kg Weight Used for Energy Requirements: [place] Weight for Energy Calculation (kg): 62 kg Total Energy Requirements (kcals/day): 0216-2071 kcal/day (25-30 kcal/kg) Weight Used for Protein Requirements: [place] Weight in Kg Used for Protein Requirements: 62 kg Estimated Total Protein (g/day): 74-81 gm protein/day (1.2-1.3 gm protein/kg) Estimated Daily Total Fluid (ml/day): per MD Nutrition Related Findings: missing teeth, hypoactive BS, la (more content not included)... Normal [facility] ECG 12-LEADon 07-26-2024 ECG 12-LEAD IMPRESSION: Sinus rhythm Inferior infarct, old Borderline ST elevation, lateral leads Electronically Signed On 07-26-2024 09:47:11 EST by [facility] ECG 12-LEAD IMPRESSION: Sinus rhythm Low voltage, precordial leads ST elevations, consider pericarditis Electronically Signed On 07-26-2024 09:22:49 EST [facility] FIBRINOGENon 07-26-2024 FIBRINOGEN 352 mg/dL Normal 200-400 [facility] Comment on above: Performed By: #### L [id number] ####Scientific Illustrator: MARILEE ALVARADO ([id number])[address] Fibrinogen Coag (PPP) [Mass/ Vol]on 07-26-2024 Interpretation and review of laboratory results Normal [facility] Laboratory - Chemistry and C hemistry - challengeon 07-26-2024 Glucose [Mass/Vol] 106 mg/dL High 70 - 100 mg/dL [facility] Magnesium [Mass/Vol] 2.5 mg/dL 1.6 - 2 .6 mg/dL [facility] Glucose [Mass/Vol] 112 mg/dL High 70 - 100 mg/dL [facility] Glucose [Mass/Vol] 101 mg/dL High 70 - 100 mg/dL [facility] Glucose [Mass/Vol] 113 mg/dL High 70 - 100 mg/dL [facility] Glucose [Mass/Vol] 107 mg/dL High 70 - 100 mg/dL [facility] Magnesium [Mass/Vol] 2.6 mg/dL 1.6 - 2 .6 mg/dL [facility] Glucose [Mass/Vol] 98 mg/dL 70 - 100 mg/dL [facility] Laboratory - Coagulationon 1 09-26-2023 aPTT Coag (PPP) [Time] 29.6 s 20.0 - 30.5 s [facility] Fibrinogen Coag (PPP) [Mass/Vol] 352 mg/dL 200 - 400 mg/dL [facility] INR Coag (PPP) [Relative time] 1.1 {INR} 0.9 - 1.1 [facility] Comment on above: Recommended Anticoag ulant Therapy: SEE BELOW ----- INR of 2.0 - 3.0 : - Prophylaxis of Venous Thrombosis (high-risk surgery) - Treatment of Venous Thrombosis - Treatment of Pulmonary Embolism (Includes tissue heart valves, Acute Myocardial Infarction to prevent systemic embolism, Valvular Heart Disease, and Atrial Fibrillation) ----- INR of 2.5 - 3.5 : - Mechanical Prosthetic Valves (high risk) - If oral anticoagulant therapy is used to prevent Myocardial Infarction PT Coag (Bld) [Time] 12.1 s High 9.0 - [address] [facility] aPTT Coag (PPP) [Time] 34.8 s High 20.0 - 30.5 s [facility] INR Coag (PPP) [Relative time] 1.1 {INR} 0.9 - 1.1 [facility] Comment on above: Recommended Anticoag ulant Therapy: SEE BELOW ----- INR of 2.0 - 3.0 : - Prophylaxis of Venous Thrombosis (high-risk surgery) - Treatment of Venous Thrombosis - Treatment of Pulmonary Embolism (Includes tissue heart valves, Acute Myocardial Infarction to prevent systemic embolism, Valvular Heart Disease, and Atrial Fibrillation) ----- INR of 2.5 - 3.5 : - Mechanical Prosthetic Valves (high risk) - If oral anticoagulant therapy is used to prevent Myocardial Infarction PT Coag (Bld) [Time] 12.4 s High 9.0 - [address] [facility] MAGNESIUMon 07-26-2024 Magnesium [Mass/Vol] 2.5 mg/dL Normal 1.6-2.6 [facility] Comment on above: Result Comment: MIKE Carr COMMENTS: Higher values can be expected in females during menses. Performed By: #### L [id number], LAB15 ####Scientific Illustrator: MARILEE ALVARADO ([id number])[facility] ([address] Magnesium [Mass/Vol] 2.6 mg/dL Normal 1.6-2.6 [facility] Comment on above: Result Comment: MIKE R COMMENTS: Higher values can be expected in females during menses. Performed By: #### L [id number], LAB15 ####Scientific Illustrator: MARILEE ALVARADO ([id number])[facility] ([facility])[address] [id number] [place] Magnesium [Mass/Vol]on 07-26 Interpretation and review of laboratory results Normal [facility] Higher values can be expected in females during menses. [facility] Interpretation and review of laboratory results Normal [facility] Higher values can be expected in females during menses. [facility] No Panel Informationon 07-26 Interpretation and review of laboratory results Abnormal [facility] Performed by: [facility], [address] [place] [address] CLIA ID: [id number] [facility] Interpretation and review of laboratory results Abnormal [facility] Sinus rhythm Inferior infarct, old Borderline ST elevation, lateral leads Electronically Signed On 07-26-2024 09:47:11 EST by Jose Antoine MD - 07/26/2024 IMPRESSION: Sinus rhythm Inferior infarct, old Borderline ST elevation, lateral leads Electronically Signed On 07-26-2024 09:47:11 EST by Jose Hickman [facility] P [place] 37 degrees [facility] [place] Interval 141 ms [facility] QRS [place] 15 degrees [facility] QRSD Interval 69 ms [facility] QT Interval 371 ms [facility] QTC Interval 405 ms [facility] T Wave [place] 2 degrees [facility] Sinus rhythm Low voltage, precordial leads ST elevations, consider pericarditis Electronically Signed On 07-26-2024 09:22:49 EST by Jose Antoine MD - 07/26/2024 IMPRESSION: Sinus rhythm Low voltage, precordial leads ST elevations, consider pericarditis Electronically Signed On 07-26-2024 09:22:49 EST by Jose Hickman [facility] Interpretation and review of laboratory results Abnormal [facility] Performed by: [facility], [address] [place] [id number] CLIA ID: [id number] [facility] Interpretation and review of laboratory results Abnormal [facility] Performed by: [facility], [address] [place] [address] CLIA ID: [id number] [facility] Interpretation and review of laboratory results Abnormal [facility] Performed by: [facility], [address] [place] [address] CLIA ID: [id number] [facility] Interpretation and review of laboratory results Abnormal [facility] Performed by: [facility], [address] [place] [id number] CLIA ID: [id number] [facility] Interpretation and review of laboratory results Abnormal [facility] Interpretation and review of laboratory results Normal [facility] Performed by: [facility], [address] [place] [address] CLIA ID: [id number] [facility] [employer] [facility] No Panel InformationOrdered By: Jose Hickman on 07-26-2024 P [place] 69 degrees [facility] Work Phone: [place] Interval 165 ms [facility] Work Phone: QRS [place] 50 degrees [facility] Work Phone: QRSD Interval 94 ms [facility] Work Phone: QT Interval 394 ms [facility] Work Phone: QTC Interval 438 ms [facility] Work Phone: T Wave [place] -15 degrees [facility] Work Phone: [facility] Work Phone: PROTIME AND APTTon aPTT Coag (Bld) [Time] 29.6 s Normal 20.0-30.5 [facility] Comment on above: Performed By: #### L [id number], [id number] ####Scientific Illustrator: MARILEE ALVARADO ([id number])[facility] ([facility])[address] [place] [address] INR Coag (PPP) [Relative time] 1.1 {INR} Normal 0.9-1.1 [facility] Comment on above: Result Comment: Adebayo mmended Anticoagulant Therapy: SEE BELOW ----- INR of 2.0 - 3.0 : - Prophylaxis of Venous Thrombosis (high-risk surgery) - Treatment of Venous Thrombosis - Treatment of Pulmonary Embolism (Includes tissue heart valves, Acute Myocardial Infarction to prevent systemic embolism, Valvular Heart Disease, and Atrial Fibrillation) ----- INR of 2.5 - 3.5 : - Mechanical Prosthetic Valves (high risk) - If oral anticoagulant therapy is used to prevent Myocardial Infarction Performed By: #### L [id number], [id number] ####Scientific Illustrator: MARILEE ALVARADO ([id number])[address] PT Coag (PPP) [Time] 12.1 s High 9.0-12.0 [facility] Comment on above: Performed By: #### L [id number], [id number] ####Scientific Illustrator: MARILEE ALAVRADO ([id number])[facility])[address] [place] [address] aPTT Coag (Bld) [Time] 34.8 s High 20.0-30.5 [facility] Comment on above: Performed By: #### L [id number] #### Scientific Illustrator: MARILEE ALVARADO ([id number]) [address] INR Coag (PPP) [Relative time] 1.1 {INR} Normal 0.9-1.1 [facility] Comment on above: Result Comment: Adebayo mmended Anticoagulant Therapy: SEE BELOW ----- INR of 2.0 - 3.0 : - Prophylaxis of Venous Thrombosis (high-risk surgery) - Treatment of Venous Thrombosis - Treatment of Pulmonary Embolism (Includes tissue heart valves, Acute Myocardial Infarction to prevent systemic embolism, Valvular Heart Disease, and Atrial Fibrillation) ----- INR of 2.5 - 3.5 : - Mechanical Prosthetic Valves (high risk) - If oral anticoagulant therapy is used to prevent Myocardial Infarction Performed By: #### L [id number] #### Scientific Illustrator: MARILEE [id number]) [facility] ([facility]) [address] [place] [address] PT Coag (PPP) [Time] 12.4 s High 9.0-12.0 [facility] Comment on above: Performed By: #### L [id number] #### Scientific Illustrator: MARILEE ALVARADO ([id number]) [facility] ([facility]) [address] [place] [address] Progress Noteon 07-26-2024 Progress Note ------ -- Attestation signed by Patsy Telles MD at 07/26/2024 1:14 PM I have personally performed a face to face diagnostic evaluation on this patient. 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 My findings are as follows: Reported pain at site of surgery Denies nausea or vomiting Blood glucose readings are reasonable on minimal insulin drip requirements Vitals: BP 116/58 Pulse 76 Temp 36.7 ?C (98 ?F) (Temporal) Resp 20 Ht 5' 5 (1.651 m) Comment: per pt and chart Wt 164 lb (74.4 kg) SpO2 91% BMI 27.29 kg/m? Respiratory: No respiratory distress Cardiovascular System: No lower extremity edema A/P Stress hyperglycemia status post CABG Insulin drip requirements are very minimal so discontinue insulin drip Start Humalog low-dose correction before meals Obtain a blood glucose readings before meals and at bedtime Monitor blood glucose readings in the coming 24 hours Do not anticipate that patient will need diabetes regimen on discharge but we will monitor blood glucose readings I spent 20 minutes with the pt which involved in coordination of care, medical evaluation, review of records, and/or counseling of the pt regarding her condition/disease state/prognosis on the date of this note. Old records including available PCP, ED notes and or other specialists notes are reviewed. LABs and/or imaging are reviewed as detailed in the resident's/COREMAKER HELPER/PIG MACHINE SUPERVISOR's note -- Department of Internal Medicine Division of Endocrinology, Diabetes, & Metabolism Endocrinology Note Patient Name: Sharonda Flores : 1955 AGE: 69 y.o. Room/Bed: T1109/[facility] A Admission Date: 07/25/2024 Visit Date: 07/26/2024 Reason for Endocrine Consult: Stress hyperglycemia Provider/Team Requesting Consult: Cardiology PCP: Tima Tello MD Outpt Industrial Therapist: No ASSESSMENT: Stress induced hyperglycemia Steroid induced hyperglycemia Status post CABGx3 CAD PLAN: Discontinue insulin gtt Start hlog low dose SS with meals Monitor ICU goal <180 GMF goal <150 POCT BG ACHS Hypoglycemia management per protocol Carb controlled diet ANTICIPATED ENDOCRINE HOME GOING RECOMMENDATIONS: Optimized for Discharge from Endocrine standpoint: Yes Home Going Endocrine Rx Recommendations-- None Outpt Follow Up-- PCP SUBJECTIVE/HPI: CHIEF COMPLAINT: No chief complaint on file. Status post CABG Interval events 07/26 Has been extubated. Chest tube in place. On pacer Gtt: none at this time Blood glucose still tightly controlled Discussed with patient, no history DM or thyroid Feeling better, sore Has not eaten, plans to eat later today. Drinking water and carlos manuel young 07/25 Intubated and chest tube in place, on pacer Gtt: propofol and insulin (off at time of consult) No pressors are on Received dexamethasone earlier today Blood glucose tightly controlled at this time No history of DM, no A1C available Will clarify patient medical history once extubated Type of DM: NA Onset of DM: NA Home DM Medication Regimen: NA DM control (last A1c/glucose data): Lab Results Component Value Date HGBA1C 6.0 (H) 07/25/2024 Glucose Date/Time Value Ref Range Status 07/26/2024 06:59 AM 112 (H) 70 - 100 mg/dL Final 07/26/2024 04:07 AM 101 (H) 70 - 100 mg/dL Final 07/26/2024 01:58 AM 113 (H) 70 - 100 mg/dL Final 07/26/2024 01:16 AM 107 (H) 70 - 100 mg/dL Final 07/26/2024 12:07 AM 98 70 - 100 mg/dL Final 07/25/2024 11:05 PM 108 (H) 70 - 100 mg/dL Final Review of Systems Constitutional: Positive for fatigue. Negative for activity change, appetite change and unexpected weight change. Gastrointestinal: Negative for diarrhea, nausea and vomiting. Endocrine: Negative for polydipsia, polyphagia and polyuria. Genitourinary: Negative for dysuria. Musculoskeletal: Positive for myalgias. Skin: Negative for color change and pallor. ROS negative except for those mentioned in HPI. OBJECTIVE: Vitals: 07/26/24 0615 07/26/24 0630 07/26/24 0645 07/26/24 0700 BP: 111/56 113/55 BP Location: Patient Position: Pulse: 74 74 68 69 Resp: Temp: TempSrc: SpO2: 94% 96% 97% 98% Weight: Height: Physical Exam Vitals reviewed. Constitutional: General: He is not in acute distress. Appearance: Normal appearance. HENT: Head: Normocephalic and atraumatic. Right Ear: External ear normal. Left Ear: External ear normal. Nose: Nose normal. Mouth/Throat: Pharynx: Oropharynx is clear. Eyes: Extraocular Movements: Extraocular movements intact. Cardiovascular: Rate and Rhythm: Normal rate. Pulmonary: Effort: Pulmonary effort is normal. Chest: Comments: Chest tube i (more content not included)... Normal [facility] Progress Note ------ -- Attestation signed by Mike Mosley MD at 07/26/2024 2:16 PM I have personally performed a face to face diagnostic evaluation on this patient today on 07/26/24. Labs, imaging studies, and electronic medical record notes on [employer] have been reviewed by me. This note documented and discussed by the []community arts officer []Fellow [x] CHIQUIS reflects my history, exam and medical decision making. I have reviewed and agree with the care plan. Changes were made in the orders as necessary. ROS documentation was reviewed and negative unless otherwise stated in the HPI. My history, exam, assessment and plan are as follows: Some elements copied from my notes, which have been updated where appropriate. All reflect current medical decision making from 07/26/24. Physical Exam listed was completed in entirely on 07/26/24 and is unchanged except where noted. Pt no longer critical care. 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 male referred by Dr. Tineo for CABG. Patient's PMHx includes CAD (s/p several PCI, most recently 2011 - LAD, LCx, distal RCA with known PHYSICIAN NON INVASIVE CARDIOLOGIST D2), preserved LVEF (65%), HTN, HLD, PAD (follows with vascular at [facility]), prior tobacco use, pulmonary nodules, adenocarcinoma s/p RUL lobectomy 01/2024 (follows with Pulmonology), and psoriasis. Patient had presented to [facility] ED with a sharp pain in the center of his chest with left shoulder ache. He had associated diaphoresis and nausea. EKG was normal.Troponin was WNL. Discharged and advised to follow up with Cardiology. A stress echocardiogram was ordered and completed on 06/25/24 which was abnormal. He then underwent a heart catheterization on 07/08/24 which demonstrated multivessel CAD. Seen by Dr. Martinez in OP setting, agreeable to CABG, scheduled for 07/25/24. Surgery/Procedure: 07/25/24: Dr. Martinez- CABG x3 (GREY-LAD, SVG-Diag, SVG-PDA), LAD endarterectomy LEVH, ZARI Interval History: 07/26/24, POD# 1: Weaned off levophed overnight. VSS, Afebrile, on 1L NC. Transfused with 2 PRBC and 2 Cryo postop. Sitting up in bed, reports some muscle spasms. Hgb- 8.8 Plts- 57 Cr- 1.14 Review of Systems Constitutional: Positive for activity change, appetite change and fatigue. Negative for diaphoresis and fever. Respiratory: Negative for cough, shortness of breath and wheezing. Cardiovascular: Negative for chest pain, palpitations and leg swelling. Gastrointestinal: Negative for abdominal distention, abdominal pain, nausea and vomiting. Skin: Negative for color change, pallor and rash. Objective: CT output cc/24hrs: 1,248 mL UO cc/24hrs: 3,190 mL Last BM Date: 07/24/24 (preop) Vitals: BP: (!) 129/44, MAP (mmHg): 71, BP Method: Arterial line Heart Rate: 76 Resp: 12 Temp: 37.1 ?C (98.7 ?F), Temp Source: Temporal BMI (Calculated): 27.29 Pacer Wires: V-wires CXR: BMP: Recent Labs 07/25/24 1156 07/25/24 1313 07/26/24 0009 NA 140 143 142 K 4.0 3.8 4.5 CL 113* 112* 111* CO2 23 24 23 BUN 15 15 16 CREATININE 0.93 0.94 1.14 CALCIUM 10.8* 9.4 8.4* MG 5.5* -- 2.6 PHOS 2.2* -- -- CBC: Recent Labs 07/25/24 1313 07/25/24 1550 07/25/24 2225 07/26/24 0520 WBC 5.0 5.9 -- 4.4 HGB 10.4 9.6* 7.9* 8.5* 8.8* HCT 29.3* 23.7* 25.8* 26.2* PLT 58* 67* -- 57* MCV 85.7 84.9 -- 85.6 RDW 13.1 13.2 -- 14.4 INR: Recent Labs 07/25/24 1156 07/25/24 1550 07/26/24 0009 INR 1.6* 1.3* 1.1 Physical Exam Cardiovascular: Rate and Rhythm: Normal rate and regular rhythm. Heart sounds: Normal heart sounds. No murmur heard. No friction rub. Pulmonary: Effort: Pulmonary effort is normal. Breath sounds: Examination of the right-lower field reveals decreased breath sounds. Examination of the left-lower field reveals decreased breath sounds. Decreased breath sounds present. No wheezing or rhonchi. Genitourinary: Comments: Sher catheter to straight drain Musculoskeletal: Right lower leg: No edema. Left lower leg: No edema. Skin: General: Skin is warm and dry. Capillary Refill: Capillary refill takes less than 2 seconds. Findings: Bruising and ecchymosis present. Comments: Surgical Incisions: well approximate; clean dry with no drainage noted. Surrounding skin no redness, warmth, or signs of infection noted. Neurol (more content not included)... Normal [facility] Vital signsOrdered By: Dimas Hickman on 07-26-2024 Heart rate 74 /min bpm [facility] Work Phone: Vital signson 07-26-2024 Heart rate 71 /min bpm [facility] XR CHEST 1 VIEWon 07-26-2024 XR CHEST 1 VIEW Patient Name: SHARONDA FLORES : 1955 Exam Date/Time: 07/26/2024 05:17 Procedure: XR CHEST 1 VIEW Ordering Provider: GARCIA ANDREW Reason For Exam: Shortness of breath CHEST - PORTABLE: CLINICAL INDICATION: Respiratory distress for follow up TECHNIQUE: Portable AP COMPARISON: One day ago FINDINGS: Life support devices: Right central venous catheter again noted. Left chest tube Heart/Mediastinum: Unchanged Lungs/Pleura: Increased density left lower hemithorax with blunting of the costophrenic angle corresponds to pleural fluid. No other consolidation on the right. Right costophrenic angle is sharp. IMPRESSION: Left pleural effusion. No new abnormality on the right Report Dictated on Workstation: [email or web address] Electronically Signed By: Elijah Flynn MD Electronically Signed Date/Time: 07/26/2024 6:25 AM EST [facility] XR Chest Single viewon 07-26 Left pleural effusio n. No new abnormality on the right Report Dictated on Workstation: [email or web address] Electronically Signed By: Elijah Flynn MD Electronically Signed Date/Time: 07/26/2024 6:25 AM EST [facility] Patient Name: SHARONDA FLORES : 1955 Exam Date/Time: 07/26/2024 05:17 Procedure: XR CHEST 1 VIEW Ordering Provider: GARCIA ANDREW Reason For Exam: Shortness of breath CHEST - PORTABLE: CLINICAL INDICATION: Respiratory distress for follow up TECHNIQUE: Portable AP COMPARISON: One day ago FINDINGS: Life support devices: Right central venous catheter again noted. Left chest tube Heart/Mediastinum: Unchanged Lungs/Pleura: Increased density left lower hemithorax with blunting of the costophrenic angle corresponds to pleural fluid. No other consolidation on the right. Right costophrenic angle is sharp. [facility] Elijah Flynn MD - 07/26/2024 Patient Name: SHARONDA FLORES : 1955 Exam Date/Time: 07/26/2024 05:17 Procedure: XR CHEST 1 VIEW Ordering Provider: GARCIA ANDREW Reason For Exam: Shortness of breath CHEST - PORTABLE: CLINICAL INDICATION: Respiratory distress for follow up TECHNIQUE: Portable AP COMPARISON: One day ago FINDINGS: Life support devices: Right central venous catheter again noted. Left chest tube Heart/Mediastinum: Unchanged Lungs/Pleura: Increased density left lower hemithorax with blunting of the costophrenic angle corresponds to pleural fluid. No other consolidation on the right. Right costophrenic angle is sharp. IMPRESSION: Left pleural effusion. No new abnormality on the right Report Dictated on Electronically Signed By: Elijah Flynn MD Electronically Signed Date/Time: 07/26/2024 6:25 AM EST [facility] Radiology Study observation (narrative) [facility] XR Chest Single viewOrdered By: Elijah Flynn on 07-26-2024 [facility] Work Phone: Arterial Lineon 07-25-2024 DARY Veronica RN - SALES ATTENDANT 07/25/2024 9:11 AM Arterial Line: Date/Time: 07/25/2024 9:42 AM An arterial line was placed Procedure performed using ultrasound guidance - Image permanently retained with wire or catheter in vein.in the Procedural for the following indication(s): continuous blood pressure monitoring and blood sampling needed. A 20 gauge (size), 1 and 3/4 inch (length), Arrow (type) catheter was placed, into the Left radial artery, secured by Tegaderm and tape. Events: patient tolerated procedure well with no complications. Staffing Performed: SALES ATTENDANT Resident/SALES ATTENDANT: Dewayne Rodriges APRN - SALES ATTENDANT [facility] BASIC METABOLIC PANELon -2 Anion gap [Moles/Vol] 7 mmol/L Normal 3-13 [facility] Comment on above: Performed By: #### L [id number] ####Scientific Illustrator: MARILEE ALVARADO ([id number])[address] Calcium [Mass/Vol] 9.4 mg/dL Normal 8.8-10.0 [facility] Comment on above: Performed By: #### L AB15 ####Scientific Illustrator: MARILEE ALVARADO ([id number])[address] Chloride [Moles/Vol] 112 mmol/L High 98-107 [facility] Comment on above: Performed By: #### L AB15 ####Scientific Illustrator: MARILEE ALVARADO ([id number])[facility] ([facility])[address] [place] [address] CO2 [Moles/Vol] 24 mmol/L Normal 23-31 [facility] Comment on above: Performed By: #### L AB15 ####Scientific Illustrator: MARILEE ALVARADO ([id number])[facility])[address] [place] [address] Creatinine [Mass/Vol] 0.94 mg/dL Normal 0.72-1.25 [facility] Comment on above: Performed By: #### L AB15 ####Scientific Illustrator: MARILEE ALVARADO ([id number])[facility])[address] [place] [address] GLOMERULAR FILTRATION RATE ML/MIN/1.73 SQ M.PREDICTED 87.8 mL/min/1.73m*2 Normal >60.0 [facility] Comment on above: Result Comment: Calc ulation based on the Chronic Kidney Disease Epidemiology Collaboration (CKD-EPI) equation refit without adjustment for race Performed By: #### L AB15 ####Scientific Illustrator: MARILEE ALVARADO ([id number])[facility] ([facility])[address] [place] [address] [place] Glucose [Mass/Vol] 83 mg/dL Normal 82-115 [facility] Comment on above: Performed By: #### L AB15 ####Scientific Illustrator: MARILEE ALVARADO ([id number])[facility])[address] [place] [address] Potassium [Moles/Vol] 3.8 mmol/L Normal 3.5-5.1 [facility] Comment on above: Result Comment: [facility] potassium values may be up to 0.5 mmol/L lower than serum values. Performed By: #### L AB15 ####Scientific Illustrator: MARILEE ALVARADO ([id number])[facility])[address] [place] [address] Sodium [Moles/Vol] 143 mmol/L Normal 136-145 [facility] Comment on above: Performed By: #### L AB15 ####Scientific Illustrator: MARILEE ALVARADO ([id number])[facility] [place] [address] [place] Urea nitrogen [Mass/Vol] 15 mg/dL Normal 9-23 [facility] Comment on above: Performed By: #### L AB15 ####Scientific Illustrator: MARILEE ALVARADO ([id number])[facility] [place] [address] [place] Anion gap [Moles/Vol] 4 mmol/L Normal 3-13 [facility] Comment on above: Performed By: #### L AB113, [id number], LAB15 ####Scientific Illustrator: MARILEE ALVARADO ([id number])[facility] [place] [address] Calcium [Mass/Vol] 10.8 mg/dL High 8.8-10.0 [facility] Comment on above: Performed By: #### L AB113, [id number], LAB15 ####Scientific Illustrator: MARILEE ALVARADO ([id number])[facility] [place] [address] [place] Chloride [Moles/Vol] 113 mmol/L High 98-107 [facility] Comment on above: Performed By: #### L AB113, [id number], LAB15 ####Scientific Illustrator: MARILEE ALVARADO ([id number])[facility] [place] [address] [place] CO2 [Moles/Vol] 23 mmol/L Normal 23-31 [facility] Comment on above: Performed By: #### L AB113, [id number], LAB15 ####Scientific Illustrator: MARILEE ALVARADO ([id number])[facility] [place] [address] [place] Creatinine [Mass/Vol] 0.93 mg/dL Normal 0.72-1.25 [facility] Comment on above: Performed By: #### L AB113, [id number], LAB15 ####Scientific Illustrator: MARILEE ALVARADO ([id number])[facility] [place] [address] [place] GLOMERULAR FILTRATION RATE ML/MIN/1.73 SQ M.PREDICTED 88.9 mL/min/1.73m*2 Normal >60.0 [facility] Comment on above: Result Comment: Calc ulation based on the Chronic Kidney Disease Epidemiology Collaboration (CKD-EPI) equation refit without adjustment for race Performed By: #### L AB113, [id number], LAB15 ####Scientific Illustrator: MARILEE ALVARADO ([id number])[facility])[address] [place] [address] Glucose [Mass/Vol] 120 mg/dL High 82-115 [facility] Comment on above: Performed By: #### L AB113, [id number], LAB15 ####Scientific Illustrator: MARILEE ALVARADO ([id number])[facility])[address] [place] [address] Potassium [Moles/Vol] 4.0 mmol/L Normal 3.5-5.1 [facility] Comment on above: Result Comment: [facility] potassium values may be up to 0.5 mmol/L lower than serum values. Performed By: #### L AB113, [id number], LAB15 ####Scientific Illustrator: MARILEE ALVARADO ([id number])[facility])[address] [place] [address] Sodium [Moles/Vol] 140 mmol/L Normal 136-145 [facility] Comment on above: Performed By: #### L AB113, [id number], LAB15 ####Scientific Illustrator: MARILEE ALVARADO ([id number])[facility])[address] [place] [address] Urea nitrogen [Mass/Vol] 15 mg/dL Normal 9-23 [facility] Comment on above: Performed By: #### L AB113, [id number], LAB15 ####Scientific Illustrator: MARILEE ALVARADO ([id number])[facility])[address] [place] [address] BLOOD GAS ARTERIALon 12-26-2 024 Base excess Calc (Bld) [Moles/Vol] -1.9000 mmol/L Normal -3.0-3.0 [facility] Comment on above: Performed By: #### L AB76 ####Scientific Illustrator: MARILEE ALVARADO ([id number])[facility])[address] [place] [address] CO2 [Moles/Vol] 27.6 mmol/L High 23.0-27.0 [facility] Comment on above: Performed By: #### L AB76 ####Scientific Illustrator: MARILEE ALVARADO ([id number])[facility])[address] [place] [address] HCO3 (Bld) [Moles/Vol] 25.8 mmol/L High 21.0-25.0 [facility] Comment on above: Performed By: #### L AB76 ####Scientific Illustrator: MARILEE ALVARADO ([id number])[facility])[address] [place] [address] Hemoglobin (Bld) [Mass/Vol] 10.4 g/dL Normal Screen only [facility] Comment on above: Performed By: #### L AB76 ####Scientific Illustrator: MARILEE ALVARADO ([id number])[facility])[address] [place] [address] OXYGEN SATURATION (%) IN ARTERIAL BLOOD 98.3 % Normal 95.0-100.0 [facility] Comment on above: Performed By: #### L AB76 ####Scientific Illustrator: MARILEE ALVARADO ([id number])[facility])[address] [place] [address] PCO2 ARTERIAL 58.8 mm Hg High >35.0-<45. 0 [facility] Comment on above: Performed By: #### L AB76 ####Scientific Illustrator: MARILEE ALVARADO ([id number])[address] PH ARTERIAL 7.260 Low 7.350-7.45 0 [facility] Comment on above: Performed By: #### L AB76 ####Scientific Illustrator: MARILEE ALVARADO ([id number])[facility] [address] PO[address] ARTERIAL 154.5 mm Hg High 80.0-100.0 [facility] Comment on above: Performed By: #### L AB76 ####Scientific Illustrator: MARILEE ALVARADO ([id number])[facility])[address] [place] [address] SOURCE OF OXYGEN 60% Oxygen Normal [facility] Comment on above: Performed By: #### L AB76 ####Scientific Illustrator: MARILEE ALVARADO ([id number])[facility])[address] [place] [address] Base excess Calc (Bld) [Moles/Vol] -2.2000 mmol/L Normal -3.0-3.0 [facility] Comment on above: Performed By: #### L AB76 ####Scientific Illustrator: MARILEE ALVARADO ([id number])[facility])[address] [place] [address] CO2 [Moles/Vol] 23.7 mmol/L Normal 23.0-27.0 [facility] Comment on above: Performed By: #### L AB76 ####Scientific Illustrator: MARILEE ALVARADO ([id number])[facility])[address] [place] [address] HCO3 (Bld) [Moles/Vol] 22.5 mmol/L Normal 21.0-25.0 [facility] Comment on above: Performed By: #### L [id number] ####Scientific Illustrator: MARILEE ALVARADO ([id number])[facility])[address] [place] [address] Hemoglobin (Bld) [Mass/Vol] 7.6 g/dL Normal Screen only [facility] Comment on above: Performed By: #### L AB76 ####Scientific Illustrator: MARILEE ALVARADO ([id number])[facility])[address] [place] [address] OXYGEN SATURATION (%) IN ARTERIAL BLOOD 98.8 % Normal 95.0-100.0 [facility] Comment on above: Performed By: #### L AB76 ####Scientific Illustrator: MARILEE ALVARADO ([id number])[facility] ([facility])[address] [place] [address] PCO2 ARTERIAL 37.9 mm Hg Normal >35.0-<45. 0 [facility] Comment on above: Performed By: #### L AB76 ####Scientific Illustrator: MARILEE ALVARADO ([id number])[facility] ([facility])[address] [place] [address] PH ARTERIAL 7.392 Normal 7.350-7.45 0 [facility] Comment on above: Performed By: #### L AB76 ####Scientific Illustrator: MARILEE ALVARADO ([id number])[facility])[address] [place] [address] PO2 ARTERIAL 339.5 mm Hg High 80.0-100.0 [facility] Comment on above: Performed By: #### L AB76 ####Scientific Illustrator: MARILEE ALVARADO ([id number])[facility] ([facility])[address] [place] [address] SOURCE OF OXYGEN Vent Normal [facility] Comment on above: Result Comment: 100% Performed By: #### L AB76 ####Scientific Illustrator: MARILEE ALVARADO ([id number])[facility])[address] [place] [address] Basic metabolic 1998 panelon 07-25-2024 Anion gap [Moles/Vol] 7 mmol/L 3 - 13 mmol/L [facility] Calcium [Mass/Vol] 9.4 mg/dL 8.8 - 10. 0 mg/dL [facility] Chloride [Moles/Vol] 112 mmol/L High 98 - 10 7 mmol/L [facility] CO2 [Moles/Vol] 24 mmol/L 23 - 31 mmol/L [facility] Creatinine [Mass/Vol] 0.94 mg/dL 0.72 - 1.25 mg/dL [facility] GFR/1.73 sq M.predicted (S/P/Bld) [Vol rate/Area] 87.8 mL/min - PINF [facility] Comment on above: Calculation based on the Chronic Kidney Disease Epidemiology Collaboration (CKD-EPI) equation refit without adjustment for race Glucose [Mass/Vol] 83 mg/dL 82 - 115 mg/dL [facility] Interpretation and review of laboratory results Abnormal [facility] Potassium [Moles/Vol] 3.8 mmol/L 3.5 - 5.1 mmol/L [facility] Comment on above: Plasma potassium ivan ues may be up to 0.5 mmol/L lower than serum values. Sodium [Moles/Vol] 143 mmol/L 136 - 145 mmol/L [facility] Urea nitrogen [Mass/Vol] 15 mg/dL 9 - 23 mg/dL [facility] Anion gap [Moles/Vol] 4 mmol/L 3 - 13 mmol/L [facility] Calcium [Mass/Vol] 10.8 mg/dL High 8.8 - 10. 0 mg/dL [facility] Chloride [Moles/Vol] 113 mmol/L High 98 - 10 7 mmol/L [facility] CO2 [Moles/Vol] 23 mmol/L 23 - 31 mmol/L [facility] Creatinine [Mass/Vol] 0.93 mg/dL 0.72 - 1.25 mg/dL [facility] GFR/1.73 sq M.predicted (S/P/Bld) [Vol rate/Area] 88.9 mL/min - PINF [facility] Comment on above: Calculation based on the Chronic Kidney Disease Epidemiology Collaboration (CKD-EPI) equation refit without adjustment for race Glucose [Mass/Vol] 120 mg/dL High 82 - 115 mg/dL [facility] Potassium [Moles/Vol] 4 mmol/L 3.5 - 5.1 mmol/L [facility] Comment on above: Plasma potassium ivan ues may be up to 0.5 mmol/L lower than serum values. Sodium [Moles/Vol] 140 mmol/L 136 - 145 mmol/L [facility] Urea nitrogen [Mass/Vol] 15 mg/dL 9 - 23 mg/dL [facility] CALCIUM, IONIZEDon 4 CALCIUM IONIZED 5.90 mg/dL High 4.30-5.20 [facility] Comment on above: Performed By: #### L AB54 ####Scientific Illustrator: MARILEE ALVARADO ([id number])[facility] ([address] PH, IONIZED CALCIUM 7.39 Normal 7.31-7.46 [facility] Comment on above: Performed By: #### L AB54 ####Scientific Illustrator: MARILEE ALVARADO ([id number])[facility])[address] [place] [address] CBC (HEMOGRAM)on 07-25-2024 Erythrocyte distribution width (RBC) [Ratio] 13.2 % Normal 11.5-15.0 [facility] Comment on above: Performed By: #### L [id number] ####Scientific Illustrator: MARILEE ALVARADO ([id number])[facility])[address] [place] [address] Hematocrit (Bld) [Volume fraction] 23.7 % Low 40.0-52.0 [facility] Comment on above: Performed By: #### L [id number] ####Scientific Illustrator: MARILEE ALVARADO ([id number])[facility])[address] [place] [address] Hemoglobin (Bld) [Mass/Vol] 7.9 g/dL Low 13.0-18.0 [facility] Comment on above: Performed By: #### L [id number] ####Scientific Illustrator: MARILEE ALVARADO ([id number])[facility])[address] [place] [address] IPF 7 Normal [facility] Comment on above: Performed By: #### L [id number] ####Scientific Illustrator: MARILEE ALVARADO ([id number])[facility])[address] [place] [address] MCH (RBC) [Entitic mass] 28.3 pg Normal 26.0-34.0 [facility] Comment on above: Performed By: #### L [id number] ####Scientific Illustrator: MARILEE ALVARADO ([id number])[facility])[address] [place] [address] MCHC 33.3 % Normal 30.5-36.0 [facility] Comment on above: Performed By: #### L [id number] ####Scientific Illustrator: MARILEE ALVARADO ([id number])[facility] ([facility])[address] [place] [address] MCV (RBC) [Entitic vol] 84.9 fL Normal 77.0-99.0 [facility] Comment on above: Performed By: #### L [id number] ####Scientific Illustrator: MARILEE ALVARADO ([id number])[facility] ([facility])[address] [place] [address] Platelet mean volume (Bld) [Entitic vol] 11.0 fL Normal 9.0-12.7 [facility] Comment on above: Performed By: #### L [id number] ####Scientific Illustrator: MARILEE ALVARADO ([id number])[facility])[address] [place] [address] Platelets (Bld) [#/Vol] 67 10*3/uL Low 140-440 [facility] Comment on above: Performed By: #### L [id number] ####Scientific Illustrator: MARILEE ALVARADO ([id number])[facility])[address] [place] [address] RBC (Bld) [#/Vol] 2.79 10*6/uL Low 4.40-5.90 [facility] Comment on above: Performed By: #### L [id number] ####Scientific Illustrator: MARILEE ALVARADO ([id number])[facility])[address] [place] [address] WBC (Bld) [#/Vol] 5.9 10*3/uL Normal 3.6-10.7 [facility] Comment on above: Performed By: #### L [id number] ####Scientific Illustrator: MARILEE ALVARADO ([id number])[facility])[address] [place] [address] Erythrocyte distribution width (RBC) [Ratio] 13.1 % Normal 11.5-15.0 [facility] Comment on above: Performed By: #### L [id number] ####Scientific Illustrator: MARILEE ALVARADO ([id number])[facility])[address] [place] [address] Hematocrit (Bld) [Volume fraction] 29.3 % Low 40.0-52.0 [facility] Comment on above: Performed By: #### L [id number] ####Scientific Illustrator: MARILEE ALVARADO ([id number])[facility])[address] [place] [address] Hemoglobin (Bld) [Mass/Vol] 9.6 g/dL Low 13.0-18.0 [facility] Comment on above: Performed By: #### L [id number] ####Scientific Illustrator: MARILEE ALVARADO ([id number])[facility])[address] [place] [address] IPF 6 Normal [facility] Comment on above: Performed By: #### L [id number] ####Scientific Illustrator: MARILEE ALVARADO ([id number])[facility])[address] [place] [address] MCH (RBC) [Entitic mass] 28.1 pg Normal 26.0-34.0 [facility] Comment on above: Performed By: #### L [id number] ####Scientific Illustrator: MARILEE ALVARADO ([id number])[facility])[address] [place] [address] MCHC 32.8 % Normal 30.5-36.0 [facility] Comment on above: Performed By: #### L [id number] ####Scientific Illustrator: MARILEE ALVARADO ([id number])[facility])[address] [place] [address] MCV (RBC) [Entitic vol] 85.7 fL Normal 77.0-99.0 [facility] Comment on above: Performed By: #### L [id number] ####Scientific Illustrator: MARILEE ALVARADO ([id number])[facility])[address] [place] [address] Platelet mean volume (Bld) [Entitic vol] 11.1 fL Normal 9.0-12.7 [facility] Comment on above: Performed By: #### L [id number] ####Scientific Illustrator: MARILEE ALVARADO ([id number])[facility])[address] [place] [address] Platelets (Bld) [#/Vol] 58 10*3/uL Low 140-440 [facility] Comment on above: Performed By: #### L [id number] ####Scientific Illustrator: MARILEE ALVARADO ([id number])[facility])[address] [place] [address] RBC (Bld) [#/Vol] 3.42 10*6/uL Low 4.40-5.90 [facility] Comment on above: Performed By: #### L [id number] ####Scientific Illustrator: MARILEE ALVARADO ([id number])[facility])[address] [place] [address] WBC (Bld) [#/Vol] 5.0 10*3/uL Normal 3.6-10.7 [facility] Comment on above: Performed By: #### L [id number] ####Scientific Illustrator: MARILEE ALVARADO ([id number])[facility])[address] [place] [address] Erythrocyte distribution width (RBC) [Ratio] 13.0 % Normal 11.5-15.0 [facility] Comment on above: Performed By: #### L [id number] ####Scientific Illustrator: MARILEE ALVARADO ([id number])[facility])[address] [place] [address] Hematocrit (Bld) [Volume fraction] 21.2 % Low 40.0-52.0 [facility] Comment on above: Performed By: #### L [id number] ####Scientific Illustrator: MARILEE ALVARADO ([id number])[facility])[address] [place] [address] Hemoglobin (Bld) [Mass/Vol] 7.1 g/dL Low 13.0-18.0 [facility] Comment on above: Performed By: #### L [id number] ####Scientific Illustrator: MARILEE ALVARADO ([id number])[facility])[address] [place] [address] IPF 7 Normal [facility] Comment on above: Performed By: #### L [id number] ####Scientific Illustrator: MARILEE ALVARADO ([id number])[facility])[address] [place] [address] MCH (RBC) [Entitic mass] 28.6 pg Normal 26.0-34.0 [facility] Comment on above: Performed By: #### L [id number] ####Scientific Illustrator: MARILEE ALVARADO ([id number])[facility])[address] [place] [address] MCHC 33.5 % Normal 30.5-36.0 [facility] Comment on above: Performed By: #### L [id number] ####Scientific Illustrator: MARILEE ALVARADO ([id number])[facility] ([facility])[address] [place] [address] MCV (RBC) [Entitic vol] 85.5 fL Normal 77.0-99.0 [facility] Comment on above: Performed By: #### L [id number] ####Scientific Illustrator: MARILEE ALVARADO ([id number])[facility])[address] [place] [address] Platelet mean volume (Bld) [Entitic vol] 11.1 fL Normal 9.0-12.7 [facility] Comment on above: Performed By: #### L [id number] ####Scientific Illustrator: MARILEE ALVARADO ([id number])[facility] ([facility])[address] [place] [address] Platelets (Bld) [#/Vol] 58 10*3/uL Low 140-440 [facility] Comment on above: Performed By: #### L [id number] ####Scientific Illustrator: MARILEE ALVARADO ([id number])[facility])[address] [place] [address] RBC (Bld) [#/Vol] 2.48 10*6/uL Low 4.40-5.90 [facility] Comment on above: Performed By: #### L [id number] ####Scientific Illustrator: MARILEE ALVARADO ([id number])[facility] ([facility])[address] [place] [address] WBC (Bld) [#/Vol] 5.4 10*3/uL Normal 3.6-10.7 [facility] Comment on above: Performed By: #### L [id number] ####Scientific Illustrator: MARILEE ALVARADO ([id number])[facility] ([facility])[address] [place] [address] CBC panel Auto (Bld)Ordered By: Mohini Powell on 07-25-2024 Erythrocyte distribution width (RBC) [Ratio] 13.2 % 11.5 - 15.0 % [facility] Hematocrit (Bld) [Volume fraction] 23.7 % Low 40.0 - 52.0 % [facility] Hemoglobin (Bld) [Mass/Vol] 7.9 g/dL Low 13.0 - 18.0 g/dL [facility] Interpretation and review of laboratory results Abnormal [facility] IPF 7 [facility] MCH (RBC) [Entitic mass] 28.3 pg 26.0 - 34.0 pg [facility] MCHC (RBC) [Mass/Vol] 33.3 % 30.5 - 36.0 % [facility] MCV (RBC) [Entitic vol] 84.9 fL 77.0 - 99.0 fL [facility] Platelet mean volume (Bld) [Entitic vol] 11 fL 9.0 - 12.7 fL [facility] Platelets (Bld) [#/Vol] 67 10*3/uL Low 140 - 440 10*3/uL [facility] RBC (Bld) [#/Vol] 2.79 10*6/uL Low 4.40 - 5.90 10*6/uL [facility] WBC (Bld) [#/Vol] 5.9 10*3/uL 3.6 - 10.7 10*3/uL [facility] CBC panel Auto (Bld)Ordered By: Diana Tan on 07-25-2024 Erythrocyte distribution width (RBC) [Ratio] 13.1 % 11.5 - 15.0 % [facility] Hematocrit (Bld) [Volume fraction] 29.3 % Low 40.0 - 52.0 % [facility] Hemoglobin (Bld) [Mass/Vol] 9.6 g/dL Low 13.0 - 18.0 g/dL [facility] Interpretation and review of laboratory results Abnormal [facility] IPF 6 [facility] MCH (RBC) [Entitic mass] 28.1 pg 26.0 - 34.0 pg [facility] MCHC (RBC) [Mass/Vol] 32.8 % 30.5 - 36.0 % [facility] MCV (RBC) [Entitic vol] 85.7 fL 77.0 - 99.0 fL [facility] Platelet mean volume (Bld) [Entitic vol] 11.1 fL 9.0 - 12.7 fL [facility] Platelets (Bld) [#/Vol] 58 10*3/uL Low 140 - 440 10*3/uL [facility] RBC (Bld) [#/Vol] 3.42 10*6/uL Low 4.40 - 5.90 10*6/uL [facility] WBC (Bld) [#/Vol] 5 10*3/uL 3.6 - 10.7 10*3/uL [facility] CBC panel Auto (Bld)Ordered By: Cesar Iglesias on 07-25-2024 Erythrocyte distribution width (RBC) [Ratio] 13 % 11.5 - 15.0 % [facility] Hematocrit (Bld) [Volume fraction] 21.2 % Low 40.0 - 52.0 % [facility] Hemoglobin (Bld) [Mass/Vol] 7.1 g/dL Low 13.0 - 18.0 g/dL [facility] Interpretation and review of laboratory results Abnormal [facility] IPF 7 [facility] MCH (RBC) [Entitic mass] 28.6 pg 26.0 - 34.0 pg [facility] MCHC (RBC) [Mass/Vol] 33.5 % 30.5 - 36.0 % [facility] MCV (RBC) [Entitic vol] 85.5 fL 77.0 - 99.0 fL [facility] Platelet mean volume (Bld) [Entitic vol] 11.1 fL 9.0 - 12.7 fL [facility] Platelets (Bld) [#/Vol] 58 10*3/uL Low 140 - 440 10*3/uL [facility] RBC (Bld) [#/Vol] 2.48 10*6/uL Low 4.40 - 5.90 10*6/uL [facility] WBC (Bld) [#/Vol] 5.4 10*3/uL 3.6 - 10.7 10*3/uL [facility] Calcium.ionized [Moles/Vol]O rdered By: Tonny Swab on 07-25-2024 Calcium.ionized (Bld) [Moles/Vol] 5.9 mg/dL High 4.30 - 5.20 mg/dL [facility] PH, IONIZED CALCIUM 7.39 7.31 - 7.46 [facility] Central Venous Lineon 2023 DARY Veronica RN - SALES ATTENDANT 07/25/2024 9:11 AM Central Venous Line: Date/Time: 07/25/2024 7:55 AM A central venous line was placed in the Procedural for the following indication(s): Sterility preparation included the following: provider hand hygiene performed prior to central venous catheter insertion, all 5 sterile barriers used (gloves, gown, cap, mask, large sterile drape) during central venous catheter insertion, antiseptic used during central venous catheter insertion and skin prep agent completely dried prior to procedure. The patient was placed in Trendelenburg position. Right The site was prepped with Chlorhexidine. Size: 8.5 Fr Catheter type: introducer During the procedure, the following specific steps were taken: target vein identified, needle advanced into vein and blood aspirated and guidewire advanced into vein. Procedure performed using ultrasound guidance - Image permanently retained with wire or catheter in vein. Sterile gel and probe cover used in ultrasound-guided central venous catheter insertion. Intravenous verification was obtained by ultrasound. Post insertion care included: all ports aspirated, all ports flushed easily, guidewire removed intact, Biopatch applied, line sutured in place and dressing applied. During the procedure the patient experienced: patient tolerated procedure well with no complications. Staffing Performed: SALES ATTENDANT Resident/SALES ATTENDANT: Dewayne Rodriges APRN - JESSIE [facility] Consulton 07-25-2024 Consult ------ -- Attestation signed by Patsy Telles MD at 07/25/2024 3:39 PM I have personally performed a face to face diagnostic evaluation on this patient. 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 My findings are as follows: Status post CABG for coronary artery disease No previous history of diabetes Not on diabetes medication Hemoglobin A1c 6% but obtained after surgery which is not reliable in the setting of anemia His blood glucose reading was fine before surgery on July 18 Vitals: BP (!) 119/44 (BP Location: Left arm, Patient Position: Lying) Pulse 81 Temp (!) 35.6 ?C (96.1 ?F) (Temporal) Resp 18 Ht 5' 5 (1.651 m) Wt 164 lb (74.4 kg) SpO2 100% BMI 27.29 kg/m? Constitutional: intubated Respiratory: No respiratory distress Cardiovascular System: No lower extremity edema A/P Stress hyperglycemia status post CABG Continue insulin drip BG Q 1 hour per protocol Will switch insulin drip to sc insulin if needed in 24 to 48 hours. Do not anticipate that patient will need diabetes regimen on discharge but we will monitor blood glucose readings Old records including available PCP, ED notes and or other specialists notes are reviewed. LABs and/or imaging are reviewed as detailed in the resident's/COREMAKER HELPER/PIG MACHINE SUPERVISOR's note -- Department of Internal Medicine Division of Endocrinology, Diabetes, & Metabolism Endocrinology Note Patient Name: Sharonda Flores : 1955 AGE: 69 y.o. Room/Bed: T1-109/T1-109 A Admission Date: 07/25/2024 Visit Date: 07/25/2024 Reason for Endocrine Consult: Stress hyperglycemia Provider/Team Requesting Consult: Cardiology PCP: Tima Tello MD Outpt Industrial Therapist: No ASSESSMENT: Stress induced hyperglycemia Steroid induced hyperglycemia Status post CABGx3 CAD PLAN: Continue insulin gtt per protocol Monitor ICU goal <180 GMF goal <150 POCT BG ACHS Hypoglycemia management per protocol Carb controlled diet ANTICIPATED ENDOCRINE HOME GOING RECOMMENDATIONS: Optimized for Discharge from Endocrine standpoint: Yes Home Going Endocrine Rx Recommendations-- None Outpt Follow Up-- PCP SUBJECTIVE/HPI: CHIEF COMPLAINT: No chief complaint on file. Status post CABG Intubated and chest tube in place, on pacer Gtt: propofol and insulin (off at time of consult) No pressors are on Received dexamethasone earlier today Blood glucose tightly controlled at this time No history of DM, no A1C available Will clarify patient medical history once extubated Type of DM: NA Onset of DM: NA Home DM Medication Regimen: NA DM control (last A1c/glucose data): No results found for: HGBA1C Glucose Date/Time Value Ref Range Status 07/25/2024 12:35 PM 87 70 - 100 mg/dL Final Review of Systems Reason unable to perform ROS: intubated. ROS negative except for those mentioned in HPI. OBJECTIVE: Vitals: 07/25/24 0530 07/25/24 0832 07/25/24 1230 BP: 132/78 (!) 119/44 BP Location: Left arm Patient Position: Lying Pulse: 62 76 Resp: 16 14 Temp: 36.1 ?C (97 ?F) (!) 35.6 ?C (96.1 ?F) TempSrc: Tympanic Temporal SpO2: 98% 100% Weight: 164 lb (74.4 kg) 164 lb (74.4 kg) Height: 5' 5 (1.651 m) 5' 5 (1.651 m) Physical Exam Vitals reviewed. Constitutional: Appearance: Normal appearance. He is ill-appearing. HENT: Head: Normocephalic and atraumatic. Right Ear: External ear normal. Left Ear: External ear normal. Nose: Nose normal. Mouth/Throat: Pharynx: Oropharynx is clear. Cardiovascular: Rate and Rhythm: Normal rate. Pulmonary: Effort: Pulmonary effort is normal. Chest: Comments: Chest tube in place Skin: General: Skin is warm and dry. Comments: Midline incision intact Neurological: Mental Status: He is alert. 24 hour intake/output: Intake/Output Summary (Last 24 hours) at 07/25/2024 1240 Last data filed at 07/25/2024 1230 Gross per 24 hour Intake 1176 ml Output 1100 ml Net 76 ml Diet: NPO diet Medications (as per EMR): HomeMeds: Current Outpatient Medications Medication Instructions aspirin 81 mg, Daily before breakfast atorvastatin (LIPITOR) 80 mg, Oral, Every evening carvedilol (COREG) 6.25 mg, Oral, 2 times daily ezetimibe (ZETIA) 10 mg, Daily before breakfast isosorbide mononitrate ER (IMDUR) 30 mg, Oral, Daily, Do not crush or chew. mupirocin (Bactroban) 2 % ointment Apply liberal amount per nostril the night before surgery and then again the morning of surgery nitroglycerin (Nitrostat) 0.4 MG SL tablet DISSOLVE 1 TABLET UNDER THE TONGUE EVERY 5 MINUTES NEEDED. Scheduled Meds:acetaminophen, 1,000 mg, Oral, q8h ceFAZolin, 2,000 mg, IntraVENous, q8h chl (more content not included)... Normal [facility] Consult ------ -- Attestation signed by Mike Mosley MD at 07/25/2024 2:53 PM I have personally performed a face to face diagnostic evaluation on this patient today on 07/25/24. Labs, imaging studies, and electronic medical record notes on [employer] have been reviewed by me. This note documented and discussed by the []community arts officer []Fellow [x] CHIQUIS reflects my history, exam and medical decision making. I have reviewed and agree with the care plan. Changes were made in the orders as necessary. ROS documentation was reviewed and negative unless otherwise stated in the HPI. My history, exam, assessment and plan are as follows: Critical care time spent excluding separately billable procedures is 36 minutes. Sedated, intubated, pupils symmetric Heart RRR Lungs clear symmetric Abd soft CXR: ETT and central lines in position Severe multivessel CAD 07/25 s/p CABG x 3 Post op vent management Anemia, thrombocytopenia expected post op On propofol sedation, mech vent Wean sedation as tolerated for SBT and extubation later today Transfuse prn -- [facility]: Critical Care Consultation Note Date: 07/25/24 PATIENT NAME: Sharonda Flores : 1955 (69 y.o.) Reason for Consult: Critical Care & Vent Management HPI: Sharonda Flores is a 68 y.o. male referred by Dr. Tineo for CABG. Patient's PMHx includes CAD (s/p several PCI, most recently 2011 - LAD, LCx, distal RCA with known PHYSICIAN NON INVASIVE CARDIOLOGIST D2), preserved LVEF (65%), HTN, HLD, PAD (follows with vascular at [facility]), prior tobacco use, pulmonary nodules, adenocarcinoma s/p RUL lobectomy 01/2024 (follows with Pulmonology), and psoriasis. Patient had presented to [facility] ED with a sharp pain in the center of his chest with left shoulder ache. He had associated diaphoresis and nausea. EKG was normal.Troponin was WNL. Discharged and advised to follow up with Cardiology. A stress echocardiogram was ordered and completed on 06/25/24 which was abnormal. He then underwent a heart catheterization on 07/08/24 which demonstrated multivessel CAD. Seen by Dr. Martinez in OP setting, agreeable to CABG, scheduled for 07/25/24. Surgery: 07/25/24: Dr. Martinez- CABG x3 (GREY-LAD, SVG-Diag, SVG-PDA), LAD endarterectomy LEVH, ZARI Interval History: 07/25/24: POD #0: Patient arrived to the unit, intubated and sedated. Surgical hand off completed below. Surgery Hand Off: Arrival Time in [facility]: 1230 Complications/Pertinent Events: Last Paralytic: 0900 Medications given in route: Gtts OR report Propofol: 20mcg/kg/min Insulin: off Amicar: 29 Current gtts upon arrival Propofol: 50mcg/kg/min Insulin: off Amicar: 29 Devices: Epicardial wires: yes [x] no [] IABP: yes [] no [x] LVAD: yes [] no [x] Speed: Equipment: Back up controller yes [] no [x] Blood Transfusions Intra Op: yes [] no [x] CellSaver: yes Vital Signs including Cardiac Numbers (if indicated) at Conclusion of Hand-off OR CTVICU CO No [place] CI CVP SVR PAP Additional Interventions/Misc during Handoff Review of Systems Unable to perform ROS: Intubated Allergies: Pcn [penicillins] Past Medical History: has a past medical history of Arrhythmia, CAD (coronary artery disease), Cancer (CMS/HCC) (HCC), Congenital heart disease, Hyperlipidemia, Hypertension, [place], old, and Sleep apnea. Past Surgical History: has a past surgical history that includes Cardiac procedure (03/15/2012); Cardiac procedure (03/2012); Cardiac procedure (05/2012); Coronary angioplasty (05/2012); Cardiac catheterization (N/A, 07/05/2024); Colonoscopy; Tonsillectomy; Adenoidectomy; and Appendectomy. Social History: reports that he quit smoking about 12 years ago. His smoking use included cigarettes. He started smoking about 69 years ago. He has a 112.2 pack-year smoking history. He quit smokeless tobacco use about 54 years ago. He reports that he does not drink alcohol and does not use drugs. Family History: family history includes Cancer in his maternal grandfather; Heart disease in his father; No Known Problems in his mother. Medications: Prior to Admission medications Medication Sig Start Date End Date Taking? Authorizing Provider aspirin 81 MG EC tablet Take 81 mg by mouth every morning (before breakfast). Yes Historical Provider, atorvastatin (Lipitor) 80 MG tablet Take 1 tablet (80 mg) by mouth every evening. Patient taking differently: Take 80 mg by mouth every morning (before breakfast). 02/08/24 Yes Becky Tineo MD carvedilol (Coreg) 6.25 MG tablet Take 1 tablet (6.25 mg) by mouth 2 times daily. 01/30/24 Yes Jazmyn White APRN - DISASTER RECOVERY MANAGER ezetimibe (Zetia) 10 MG tablet Take 10 mg by mouth every (more content not included)... Normal [facility] FIBRINOGENon 07-25-2024 FIBRINOGEN 92 mg/dL Low 200-400 [facility] Comment on above: Performed By: #### L [id number], [id number] ####Scientific Illustrator: MARILEE ALVARADO ([id number])[facility])[address] [place] [address] FIBRINOGEN 109 mg/dL Low 200-400 [facility] Comment on above: Performed By: #### L [id number], [id number] ####Scientific Illustrator: MARILEE ALVARADO ([id number])[facility])[address] [place] [address] Fibrinogen Coag (PPP) [Mass/ Vol]on 07-25-2024 Interpretation and review of laboratory results Abnormal [facility] Interpretation and review of laboratory results Abnormal [facility] HEMOGLOBIN A1Con 07-25-2024 Glucose [Mass/Vol] 126 mg/dL Normal [facility] Comment on above: Result Comment: MIKE Carr COMMENTS: HbA1c values of 5.7-6.4 percent indicate an increased risk for developing diabetes mellitus. HbA1c values greater than or equal to 6.5 percent are diagnostic of diabetes mellitus. For diagnosis of diabetes in individuals without unequivocal hyperglycemia, results should be confirmed by repeat testing. Performed By: #### L [id number] ####Scientific Illustrator: MARILEE ALVARADO ([id number])[facility])[address] [place] [address] HEMOGLOBIN A1C 6.0 %HbA1C High <5.7 [facility] Comment on above: Result Comment: Norm al less than 5.7% Prediabetes 5.7% to 6.4% Diabetes 6.5% or higher --HgbA1C levels may not be accurate in patients who have renal disease, received recent blood transfusions, are anemic, or who have dyshemoglobinemia. Performed By: #### L [id number] ####Scientific Illustrator: MARILEE ALVARADO ([id number])[facility] ([facility])[address] [place] [address] HEMOGLOBIN AND HEMATOCRIT, B LOODon 07-25-2024 Hematocrit (Bld) [Volume fraction] 25.8 % Low 40.0-52.0 [facility] Comment on above: Order Comment: Recom mend 1 hour post transfusion Performed By: #### L [id number] ####Scientific Illustrator: MARILEE ALVARADO ([id number])[facility] ([facility])[address] [place] [address] Hemoglobin (Bld) [Mass/Vol] 8.5 g/dL Low 13.0-18.0 [facility] Comment on above: Order Comment: Recom mend 1 hour post transfusion Performed By: #### L [id number] ####Scientific Illustrator: MARILEE ALVARADO ([id number])[facility] ([facility])[address] [place] [address] Hemoglobin (Bld) [Mass/Vol]O rdered By: Willie Prince on 07-25-2024 Hematocrit (Bld) [Volume fraction] 25.8 % Low 40.0 - 52.0 % [facility] Interpretation and review of laboratory results Abnormal [facility] - Chemistry and C hemistry - challengeon 07-25-2024 Glucose [Mass/Vol] 108 mg/dL High 70 - 100 mg/dL [facility] Glucose [Mass/Vol] 126 mg/dL High 70 - 100 mg/dL [facility] Glucose [Mass/Vol] 134 mg/dL High 70 - 100 mg/dL [facility] Glucose [Mass/Vol] 123 mg/dL High 70 - 100 mg/dL [facility] Glucose [Mass/Vol] 125 mg/dL High 70 - 100 mg/dL [facility] Glucose [Mass/Vol] 122 mg/dL High 70 - 100 mg/dL [facility] Glucose [Mass/Vol] 110 mg/dL High 70 - 100 mg/dL [facility] Glucose [Mass/Vol] 115 mg/dL High 70 - 100 mg/dL [facility] Glucose [Mass/Vol] 114 mg/dL High 70 - 100 mg/dL [facility] Average glucose Estimated from glycated hemoglobin (Bld) [Mass/Vol] 126 mg/dL [facility] Magnesium [Mass/Vol] 5.5 mg/dL High 1.6 - 2 .6 mg/dL [facility] Glucose [Mass/Vol] 87 mg/dL 70 - 100 mg/dL [facility] Base excess Calc (Bld) [Moles/Vol] -2.2000 mmol/L -3.0 - 3.0 mmol/L [facility] CO2 (Bld) [Partial pressure] 37.9 mm[Hg] - PINF [facility] CO2 [Moles/Vol] 23.7 mmol/L 23.0 - 27.0 mmol/L [facility] HCO3 (Bld) [Moles/Vol] 22.5 mmol/L 21.0 - 25.0 mmol/L [facility] Oxygen (Bld) [Partial pressure] 339.5 mm[Hg] High [facility] pH (Bld) 7.392 [pH] 7.350 - 7.450 [facility] Laboratory - Chemistry and C hemistry - challengeOrdered By: Latosha Santos on 07-25-2024 Base excess Calc (Bld) [Moles/Vol] -1.9000 mmol/L -3.0 - 3.0 mmol/L [facility] CO2 (Bld) [Partial pressure] 58.8 mm[Hg] High - PINF [facility] CO2 [Moles/Vol] 27.6 mmol/L High 23.0 - 27.0 mmol/L [facility] HCO3 (Bld) [Moles/Vol] 25.8 mmol/L High 21.0 - 25.0 mmol/L [facility] Oxygen (Bld) [Partial pressure] 154.5 mm[Hg] High [facility] pH (Bld) 7.26 [pH] Low 7.350 - 7.450 [facility] Laboratory - Coagulationon 1 09-25-2023 Fibrinogen Coag (PPP) [Mass/Vol] 92 mg/dL Low 200 - 400 mg/dL [facility] aPTT Coag (PPP) [Time] 29 s 20.0 - 30.5 s [facility] INR Coag (PPP) [Relative time] 1.3 {INR} High 0.9 - 1.1 [facility] Comment on above: Recommended Anticoag ulant Therapy: SEE BELOW ----- INR of 2.0 - 3.0 : - Prophylaxis of Venous Thrombosis (high-risk surgery) - Treatment of Venous Thrombosis - Treatment of Pulmonary Embolism (Includes tissue heart valves, Acute Myocardial Infarction to prevent systemic embolism, Valvular Heart Disease, and Atrial Fibrillation) ----- INR of 2.5 - 3.5 : - Mechanical Prosthetic Valves (high risk) - If oral anticoagulant therapy is used to prevent Myocardial Infarction PT Coag (Bld) [Time] 14.2 s High 9.0 - 1 2.0 s [facility] Fibrinogen Coag (PPP) [Mass/Vol] 109 mg/dL Low 200 - 400 mg/dL [facility] aPTT Coag (PPP) [Time] 23.4 s 20.0 - 30.5 s [facility] INR Coag (PPP) [Relative time] 1.6 {INR} High 0.9 - 1.1 [facility] Comment on above: Recommended Anticoag ulant Therapy: SEE BELOW ----- INR of 2.0 - 3.0 : - Prophylaxis of Venous Thrombosis (high-risk surgery) - Treatment of Venous Thrombosis - Treatment of Pulmonary Embolism (Includes tissue heart valves, Acute Myocardial Infarction to prevent systemic embolism, Valvular Heart Disease, and Atrial Fibrillation) ----- INR of 2.5 - 3.5 : - Mechanical Prosthetic Valves (high risk) - If oral anticoagulant therapy is used to prevent Myocardial Infarction PT Coag (Bld) [Time] 17.8 s High 9.0 - [address] [facility] - Hematology and Cell countsOrdered By: Willie Prince on 07-25-2024 Hemoglobin (Bld) [Mass/Vol] 8.5 g/dL Low 13.0 - 18.0 g/dL [facility] - Hematology and Cell countson 07-25-2024 HbA1c (Bld) [Mass fraction] 6 % High NINF [facility] Comment on above: Normal less than 5.7 % Prediabetes 5.7% to 6.4% Diabetes 6.5% or higher --HgbA1C levels may not be accurate in patients who have renal disease, received recent blood transfusions, are anemic, or who have dyshemoglobinemia. Hemoglobin (Bld) [Mass/Vol] 7.6 g/dL Screen only [facility] - Hematology and Cell countsOrdered By: Latosha Santos on 07-25-2024 Hemoglobin (Bld) [Mass/Vol] 10.4 g/dL Screen only [facility] MAGNESIUMon 07-25-2024 Magnesium [Mass/Vol] 5.5 mg/dL High 1.6-2.6 [facility] Comment on above: Result Comment: MIKE Carr COMMENTS: Higher values can be expected in females during menses. Performed By: #### L [id number], [id number], [id number] ####Scientific Illustrator: MARILEE ALVARADO ([id number])[facility] ([facility])[address] [place] [address] Magnesium [Mass/Vol]on 07-25 Higher values can be expected in females during menses. [facility] No Panel Informationon 07-25 Interpretation and review of laboratory results Abnormal [facility] Performed by: [facility], [address] [place] [address] CLIA ID: [id number] [facility] Interpretation and review of laboratory results Abnormal [facility] Performed by: [facility], [address] [place] [address] CLIA ID: [id number] [facility] Interpretation and review of laboratory results Abnormal [facility] Performed by: [facility], [address] [place] [address] CLIA ID: [id number] [facility] Interpretation and review of laboratory results Abnormal [facility] Performed by: [facility], [address] [place] [address] CLIA ID: [id number] [facility] Blood Expiration Date S [facility] Blood Expiration Date S [facility] Crossmatch interpretation COMP [facility] Dispense Status Transfused [facility] Product Blood Type 8400 [facility] PRODUCT CODE [id number] [facility] ABO AB [facility] Number [id number] [facility] Number [id number] [facility] RH Positive [facility] Volume 300 mL [facility] Interpretation and review of laboratory results Abnormal [facility] Performed by: [facility], [address] [place] [address] CLIA ID: [id number] [facility] Blood Expiration Date S [facility] Blood Expiration Date S [facility] Dispense Status Transfused [facility] Product Blood Type 6200 [facility] PRODUCT CODE [id number] [facility] Unit ABO A [facility] Unit Number [id number] [facility] Number [id number] [facility] RH Positive [facility] Volume 113 ml [facility] Volume 106 ml [facility] Interpretation and review of laboratory results Abnormal [facility] Performed by: [facility], [address] [place] [address] CLIA ID: [id number] [facility] Interpretation and review of laboratory results Abnormal [facility] Performed by: [facility], [address] [place] [address] CLIA ID: [id number] [facility] Interpretation and review of laboratory results Abnormal [facility] Interpretation and review of laboratory results Abnormal [facility] Performed by: [facility], [address] [place] [address] CLIA ID: [id number] [facility] Interpretation and review of laboratory results Abnormal [facility] Performed by: [facility], [address] [place] [address] CLIA ID: [id number] [facility] Interpretation and review of laboratory results Abnormal [facility] HbA1c values of 5.7- 6.4 percent indicate an increased risk for developing diabetes mellitus. HbA1c values greater than or equal to 6.5 percent are diagnostic of diabetes mellitus. For diagnosis of diabetes in individuals without unequivocal hyperglycemia, results should be confirmed by repeat testing. [facility] Interpretation and review of laboratory results Abnormal [facility] Interpretation and review of laboratory results Normal [facility] Performed by: [facility], [address] [place] [address] CLIA ID: [id number] [facility] Interpretation and review of laboratory results Abnormal [facility] Source Of Oxygen Vent [facility] Comment on above: 100% No Panel InformationOrdered By: Latosha Santos on 07-25-2024 Interpretation and review of laboratory results Abnormal [facility] Source Of Oxygen 60% Oxygen [facility] No Panel InformationOrdered By: Tonny Pedro on 07-25-2024 Interpretation and review of laboratory results Abnormal [facility] Op Noteon 07-25-2024 Op Note Cardiothoracic Surge ry Operative Report Date: 07/25/24 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 Fredi Buchanan Heel Cementer Machine: Jazmyn Rodgers Total IV fluids: See anesthesia and perfusion record Blood Transfusion?: None Drains/wires: Chest tube x 2; ventricular pacing wires Complications: None INDICATIONS FOR SURGERY: This is a 69 year-old male who was seen as an outpatient for coronary disease. Left heart catheter revealed multivessel disease. The above procedure was offered to him. The risks benefits and alternatives were explained in detail and he agreed to proceed. Findings: The mammary artery is a good conduit with excellent flows. The saphenous vein is about 4 mm and adequate for use as a conduit. The left anterior descending is stented all the way down to the distal portion which is the only place suitable for placement of the bypass. It is still very calcified and thickened there. A small endarterectomy was required. It is about 1 mm at the point of bypass. The patient was weaned from cardiopulmonary bypass with no inotropic support needed. Myocardial function is preserved on ZARI. Cardiopulmonary bypass time 111 minutes. Aortic cross-clamp time 96 minutes. DESCRIPTION OF PROCEDURE: The patient was brought to the operative suite and placed in supine position on the operative table. General anesthesia was administered. All appropriate lines and tubes were placed. His torso and lower extremities were then prepped and draped in the usual sterile fashion. A two team approach was taken. The dental office assistant team performed all aspects of the vein harvest. He also assisted with the entire procedure while on cardiopulmonary bypass and with the closure. A small incision was made in the at the medial left knee. The greater saphenous vein was identified and then harvested from the left thigh completely and endoscopically. It was prepared on the back table. The incision was closed in layers with running absorbable sutures. Concomitantly a standard median sternotomy incision was made. The sternum was divided in the midline and hemostasis was achieved. A mammary retractor was then placed. The left pleuralspace was opened and the left internal mammary artery was taken down witha combination of blunt dissection electrocautery and hemoclips. Full dose heparin was then given. The mammary was ligated distally and divided. It was prepared on the field and had excellent flows. A standard retractor was then placed. The thymus was divided in the midline and the pericardium was opened. I then cannulated for bypass. A double pursestring suture was placed into the ascending aorta. An 8 mm arterial cannula was placed through this and secured. Another pursestring was placed in the right atrial appendage. A dual stage venous cannula was placed through this and secured. An antegrade cardioplegia cannula was placed into the ascending aorta. We then went on total cardiopulmonary bypass. There was excellent decompression of all 4 cardiac chambers. Each of the distal targets were examined and found to be as describedabove. An aortic cross-clamp was then placed. Cold blood antegrade followed by retrograde cardioplegia was administered with excellent diastolic arrest of the heart. Cardioplegia was readministered periodically throughout the procedure as indicated. The posterior descending artery was then identified. An arteriotomy was made and an end to side saphenous vein to the posterior descending anastomosis was created with a running Prolene stitch. It was hemostatic once complete and had good outflows. The diagonal branch was then identified. An arteriotomy was made in an end-to-side saphenous vein to diagonal anastomosis was created with a running Prolene stitch. It was hemostatic once complete and had good outflows. The the patient was rewarmed. The left anterior descending was then identified in the very distal portion. Everything before this was stented. An arteriotomy was made but the lumen was not well delineated. A small endarterectomy was required to remove the circumferential stenosis in the area. A long end to side GREY to LAD anastomosis was created with a running Prolene stitch. It was hemostatic once complete and had good outflow to the apex. A right sided aortotomy was made. The right sided vein graft was anastomosed (more content not included)... Normal [facility] PHOSPHORUSon 07-25-2024 Phosphate [Mass/Vol] 2.2 mg/dL Low 2.3-4.7 [facility] Comment on above: Performed By: #### L [id number], [id number], [id number] ####Scientific Illustrator: MARILEE ALVARADO ([id number] PROTIME AND APTTon aPTT Coag (Bld) [Time] 29.0 s Normal 20.0-30.5 [facility] Comment on above: Performed By: #### L [id number], [id number] ####Scientific Illustrator: MARILEE ALVARADO ([id number])[address] INR Coag (PPP) [Relative time] 1.3 {INR} High 0.9-1.1 [facility] Comment on above: Result Comment: Adebayo mmended Anticoagulant Therapy: SEE BELOW ----- INR of 2.0 - 3.0 : - Prophylaxis of Venous Thrombosis (high-risk surgery) - Treatment of Venous Thrombosis - Treatment of Pulmonary Embolism (Includes tissue heart valves, Acute Myocardial Infarction to prevent systemic embolism, Valvular Heart Disease, and Atrial Fibrillation) ----- INR of 2.5 - 3.5 : - Mechanical Prosthetic Valves (high risk) - If oral anticoagulant therapy is used to prevent Myocardial Infarction Performed By: #### L [id number], [id number] ####Scientific Illustrator: MARILEE [id number])[address] PT Coag (PPP) [Time] 14.2 s High 9.0-12.0 [facility] Comment on above: Performed By: #### L [id number], [id number] ####Scientific Illustrator: MARILEE [id number])[facility] [place] [address] aPTT Coag (Bld) [Time] 23.4 s Normal 20.0-30.5 [facility] Comment on above: Performed By: #### L [id number], [id number] ####Scientific Illustrator: MARILEE ALVARADO ([id number])[facility] ([facility])[address] [place] [address] INR Coag (PPP) [Relative time] 1.6 {INR} High 0.9-1.1 [facility] Comment on above: Result Comment: Adebayo mmended Anticoagulant Therapy: SEE BELOW ----- INR of 2.0 - 3.0 : - Prophylaxis of Venous Thrombosis (high-risk surgery) - Treatment of Venous Thrombosis - Treatment of Pulmonary Embolism (Includes tissue heart valves, Acute Myocardial Infarction to prevent systemic embolism, Valvular Heart Disease, and Atrial Fibrillation) ----- INR of 2.5 - 3.5 : - Mechanical Prosthetic Valves (high risk) - If oral anticoagulant therapy is used to prevent Myocardial Infarction Performed By: #### L [id number], [id number] ####Scientific Illustrator: MARILEE ALVARADO ([id number])[facility] ([facility])[address] [place] [address] PT Coag (PPP) [Time] 17.8 s High 9.0-12.0 [facility] Comment on above: Performed By: #### L [id number], [id number] ####Scientific Illustrator: MARILEE ALVARADO ([id number])[facility] ([facility])[address] [place] [address] [place] Phosphate [Moles/Vol]on 07-01 Phosphate [Mass/Vol] 2.2 mg/dL Low 2.3 - 4 .7 mg/dL [facility] Heart Transesophagealon 1 09-25-2023 Left Ventricle: Left ventricle size is normal. Normal wall thickness. Normal left ventricular systolic function. The EF by visual approximation is 55%. Normal wall motion. Right Ventricle: Right ventricle size is normal. Normal systolic function. Left Atrium: Normal sized appendage. Decreased appendage flow velocity. No left atrial appendage thrombus noted. Interatrial Septum: Agitated saline study was negative with and without provocation. Small left to right shunt seen on color The septum is bowing into the RA. Aorta: There is no atherosclerosis present in the sinuses of Valsalva. There is no atherosclerosis present in the ascending aorta. There is moderate and protruding atherosclerosis present in the aortic arch with grade 3 thickening (sessile atheroma protruding less than 5mm into the aortic lumen). There is moderate and protruding atherosclerosis in the descending aorta with grade 3 thickening (sessile atheroma protruding less than 5mm into the aortic lumen). Left Ventricle Left ventricle size is normal. Normal wall thickness. Normal left ventricular systolic function. The EF by visual approximation is 55%. Normal wall motion. Right Ventricle Right ventricle size is normal. Normal systolic function. Left Atrium Left atrium size is normal. Normal sized appendage. Decreased appendage flow velocity. No left atrial appendage thrombus noted. Normal pulmonary vein connection. Right Atrium Right atrium size is normal. Mitral Valve Valve structure is normal. Mild (1+) regurgitation. No stenosis noted. Tricuspid Valve Valve structure is normal. No regurgitation. Aortic Valve Trileaflet. No regurgitation. No stenosis. Pulmonic Valve The pulmonic valve visualization is suboptimal but appears to be functioning normally. Trace regurgitation. Ascending Aorta There is no atherosclerosis present in the sinuses of Valsalva. There is no atherosclerosis present in the ascending aorta. There is moderate and protruding atherosclerosis present in the aortic arch with grade 3 thickening (sessile atheroma protruding less than 5mm into the aortic lumen). There is moderate and protruding atherosclerosis in the descending aorta with grade 3 thickening (sessile atheroma protruding less than 5mm into the aortic lumen). Pericardium No pericardial effusion. Septum Agitated saline study was negative with and without provocation. Small left to right shunt seen on color The septum is bowing into the RA. Pulmonary Artery Pulmonary artery was not assessed due to poor image quality. Study Details Image quality: good. Blood pressure: 139/69 mmHg. ZARI probe number: 8. ZARI probe was inserted by the SALES ATTENDANT with no difficulty. No topical anesthesic. No complications. Saline contrast was given to evaluate for intracardiac shunt. Bubble study was without Valsalva. See anesthesia notes for medications given. Wall Scoring Baseline Score Index: 1.00 The left ventricular wall motion is normal. CV CPACS HEMO US Heart TransesophagealOrde red By: Tara Sainz on 07-25-2024 [employer] Work Phone: XR CHEST 1 VIEWon 07-25-2024 XR CHEST 1 VIEW Patient Name: SHARONDA FLORES : 1955 Exam Date/Time: 07/25/2024 13:12 Procedure: XR CHEST 1 VIEW Ordering Provider: GARCIA ANDREW Reason For Exam: Post op open heart surgery CHEST CLINICAL INDICATION: Post op open heart surgery TECHNIQUE: AP portable chest COMPARISON: Chest radiograph from 07/18/2024 FINDINGS: SUPPORT DEVICES: Tip of the endotracheal tube terminates 3.6 cm above the bill. An enteric tube extends beneath the diaphragm. The distal tip projects over the gastric fundus. Right internal jugular catheter tip projects over the mid SVC. Left basilar chest tube. Mediastinal drain. HEART AND MEDIASTINUM: Calcification of the thoracic aorta. Apparent CABG.. LUNGS AND PLEURA: No sizable pleural effusion. Linear atelectasis in the left lung. No confluent consolidation. No pneumothorax is identified. OSSEOUS STRUCTURES: Median sternotomy wires. Mild degenerative change of the spine.. IMPRESSION: Mild linear atelectasis in the left midlung. Report Dictated on Electronically Signed By: Jauna Bose MD Electronically Signed Date/Time: 07/25/2024 2:[address] [facility] XR Chest Single viewon 07-25 Mild linear atelecta sis in the left midlung. Report Dictated on Electronically Signed By: Juana Bose MD Electronically Signed Date/Time: 07/25/2024 2:05 PM [facility] Patient Name: SHARONDA FLORES : 1955 Exam Date/Time: 07/25/2024 13:12 Procedure: XR CHEST 1 VIEW Ordering Provider: GARCIA ANDREW Reason For Exam: Post op open heart surgery CHEST CLINICAL INDICATION: Post op open heart surgery TECHNIQUE: AP portable chest COMPARISON: Chest radiograph from 07/18/2024 FINDINGS: SUPPORT DEVICES: Tip of the endotracheal tube terminates 3.6 cm above the bill. An enteric tube extends beneath the diaphragm. The distal tip projects over the gastric fundus. Right internal jugular catheter tip projects over the mid SVC. Left basilar chest tube. Mediastinal drain. HEART AND MEDIASTINUM: Calcification of the thoracic aorta. Apparent CABG.. LUNGS AND PLEURA: No sizable pleural effusion. Linear atelectasis in the left lung. No confluent consolidation. No pneumothorax is identified. OSSEOUS STRUCTURES: Median sternotomy wires. Mild degenerative change of the spine.. [facility] Juana Bose M D - 07/25/2024 Patient Name: SHARONDA FLORES : 1955 [id number] Exam Date/Time: 07/25/2024 13:12 Procedure: XR CHEST 1 VIEW Ordering Provider: GARCIA ANDREW Reason For Exam: Post op open heart surgery CHEST CLINICAL INDICATION: Post op open heart surgery TECHNIQUE: AP portable chest COMPARISON: Chest radiograph from 07/18/2024 FINDINGS: SUPPORT DEVICES: Tip of the endotracheal tube terminates 3.6 cm above the bill. An enteric tube extends beneath the diaphragm. The distal tip projects over the gastric fundus. Right internal jugular catheter tip projects over the mid SVC. Left basilar chest tube. Mediastinal drain. HEART AND MEDIASTINUM: Calcification of the thoracic aorta. Apparent CABG.. LUNGS AND PLEURA: No sizable pleural effusion. Linear atelectasis in the left lung. No confluent consolidation. No pneumothorax is identified. OSSEOUS STRUCTURES: Median sternotomy wires. Mild degenerative change of the spine.. IMPRESSION: Mild linear atelectasis in the left midlung. Report Dictated on Electronically Signed By: Juana Bose MD Electronically Signed Date/Time: 07/25/2024 2:05 PM EST [facility] [facility] Radiology Study observation (narrative) [employer] XR Chest Single viewOrdered By: Juana Bose on 07-25-2024 [employer] Work Phone: [phone] 07-18-2024 [id number] Medication List Accurate as of July 18, 2024 12:52 PM. Always use your most recent med list. aspirin 81 MG EC tablet Medication Adjustments for Surgery: Take morning of surgery atorvastatin 80 MG tablet Commonly known as: Lipitor Take 1 tablet (80 mg) by mouth every evening. carvedilol 6.25 MG tablet Commonly known as: Coreg Take 1 tablet (6.25 mg) by mouth 2 times daily. Medication Adjustments for Surgery: Hold morning of surgery ezetimibe 10 MG tablet Commonly known as: Zetia Medication Adjustments for Surgery: Take morning of surgery isosorbide mononitrate ER 30 MG 24 hr tablet Commonly known as: Imdur Take 1 tablet (30 mg) by mouth daily. Do not crush or chew. Medication Adjustments for Surgery: Take morning of surgery mupirocin 2 % ointment Commonly known as: Bactroban Apply liberal amount per nostril the night before surgery and then again the morning of surgery nitroglycerin 0.4 MG SL tablet Commonly known as: Nitrostat Additional Instructions: You may take your prescription pain medication. You may take Tylenol for pain. NO Motrin, ibuprofen or Advil for 24 hours prior to surgery or longer if instructed by your surgeon. NO Aleve or Naprosyn for 5 days prior to surgery or longer if instructed by your surgeon. CONTINUE TAKING ASPIRIN INCLUDING THE MORNING OF SURGERY HOLD CARVEDILOL THE MORNING OF SURGERY ALL OTHER MEDICATION MAY BE TAKEN SCHEDULED HOLD NSAIDS 7 DAYS PRIOR TO SURGERY- ONLY TYLENOL FOR PAIN Shower with an antibacterial soap such as Dial or Safeguard or shower kit provided to you before coming to the hospital. No makeup, lotion, powder, deodorant or body spays. No hair products. Remove all jewelry and leave it at home. Wear loose comfortable clothing to go home in. You may brush your teeth morning of surgery. Do not wear contacts day of surgery. No marijuana (THC), smoking or alcohol for 24 hours prior to surgery. Please arrange for a responsible adult to drive you home after your surgery and that there is a responsible adult with you for 24 hours post discharge. If you have specific questions, please call your surgeon. You will receive a call the day before your surgery to verify your arrival time and date. You will be asked to arrive at least two hours prior to your scheduled surgery time. Please bring your [facility] Surgical folder and medication list with you day of surgery. We encourage you to write down any questions you may have for the surgeon, anesthesiologist, or other members of the surgical team and bring it with you the day of surgery. Please bring photo ID and insurance information. Normal [facility] BLOOD TYPE AND SCREEN GELon 07-18-2024 ABO GROUPING AB Normal [facility] Comment on above: Performed By: #### L [id number] ####Scientific Illustrator: ALEKSANDRA NUNEZ ([id number])[facility] ([facility])[address] RH TYPE IN BLOOD Positive Normal [facility] Comment on above: Performed By: #### L [id number] ####Scientific Illustrator: ALEKSANDRA NUNEZ ([id number])[facility] BLOOD [facility] ([facility])[address] [place] [address] CBC (HEMOGRAM)on 07-18-2024 Erythrocyte distribution width (RBC) [Ratio] 12.9 % Normal 11.5-15.0 [facility] Comment on above: Performed By: #### L [id number] ####Scientific Illustrator: ALEKSANDRA NUNEZ ([id number])[facility] ([facility])[address] [place] [address] Hematocrit (Bld) [Volume fraction] 40.2 % Normal 40.0-52.0 [facility] Comment on above: Performed By: #### L [id number] ####Scientific Illustrator: ALEKSANDRA NUNEZ ([id number])[facility] ([facility])[address] [place] [address] Hemoglobin (Bld) [Mass/Vol] 13.1 g/dL Normal 13.0-18.0 [facility] Comment on above: Performed By: #### L [id number] ####Scientific Illustrator: ALEKSANDRA NUNEZ ([id number])[facility] [place] [address] MCH (RBC) [Entitic mass] 27.8 pg Normal 26.0-34.0 [facility] Comment on above: Performed By: #### L [id number] ####Scientific Illustrator: ALEKSANDRA NUNEZ ([id number])[facility] [place] ([facility])[address] MCHC 32.6 % Normal 30.5-36.0 [facility] Comment on above: Performed By: #### L [id number] ####Scientific Illustrator: ALEKSANDRA NUNEZ ([id number])[facility]USHe[facility] [place] ([facility])[address] MCV (RBC) [Entitic vol] 85.4 fL Normal 77.0-99.0 [facility] Comment on above: Performed By: #### L [id number] ####Scientific Illustrator: ALEKSANDRA NUNEZ ([id number])[facility] CAMPUSHeather [place]en ([facility])[address] Platelet mean volume (Bld) [Entitic vol] 12.1 fL Normal 9.0-12.7 [facility] Comment on above: Performed By: #### L [id number] ####Scientific Illustrator: ALEKSANDRA NUNEZ ([id number])[facility] CAMPUSHeather [place] ([facility])[address] [place] [address] [place] Platelets (Bld) [#/Vol] 133 10*3/uL Low 140-440 [facility] Comment on above: Performed By: #### L [id number] ####Scientific Illustrator: ALEKSANDRA NUNEZ ([id number])[facility] CAMPUSHeather [place] ([facility])[address] RBC (Bld) [#/Vol] 4.71 10*6/uL Normal 4.40-5.90 [facility] Comment on above: Performed By: #### L [id number] ####Scientific Illustrator: ALEKSANDRA NUNEZ ([id number])[facility] CAMPUSHeather [place] ([facility])[address] WBC (Bld) [#/Vol] 4.5 10*3/uL Normal 3.6-10.7 [facility] Comment on above: Performed By: #### L [id number] ####Scientific Illustrator: ALEKSANDRA NUNEZ ([id number])[facility] CAMPUSA [facility] ([facility])[address] COMPLETE URINALYSISon 2023 BACTERIA (#/HPF) IN URINE Negative Normal Negative [facility] Comment on above: Performed By: #### L [id number] ####Scientific Illustrator: ALEKSANDRA NUNEZ ([id number])[facility]AMPUSA [facility] ([facility])[address] BILIRUBIN, TOTAL PRESENCE IN URINE Negative Normal Negative [facility] Comment on above: Performed By: #### L [id number] ####Scientific Illustrator: ALEKSANDRA NUNEZ ([id number])[facility] ([facility])[address] Clarity (U) Clear Normal Clear [facility] Comment on above: Performed By: #### L [id number] ####Scientific Illustrator: ALEKSANDRA NUNEZ ([id number])[facility] ([facility])[address] Color (U) Yellow Normal Lt. Yellow [facility] Comment on above: Performed By: #### L [id number] ####Scientific Illustrator: ALEKSANDRA NUNEZ ([id number])[facility] CAMPUSA [facility] ([facility])[address] GLUCOSE (MG/DL) IN URINE Normal Normal Normal (<70) [facility] Comment on above: Performed By: #### L [id number] ####Scientific Illustrator: ALEKSANDRA NUNEZ ([id number])[facility] ([facility])[address] HEMOGLOBIN PRESENCE IN URINE Negative Normal Negative [facility] Comment on above: Performed By: #### L [id number] ####Scientific Illustrator: ALEKSANDRA NUNEZ ([id number])[facility]AMPUSA [facility] ([facility])[address] HYALINE CASTS (#/LPF) IN URINE SEDIMENT BY MICROSCOPY 0-2 Abnormal Negative [facility] Comment on above: Performed By: #### L [id number] ####Scientific Illustrator: ALEKSANDRA PEREZJUNG ([id number])[facility] CAMPUSA [place] ([facility])[address] Ketones Ql (U) Negative Normal Negative [facility] Comment on above: Performed By: #### L [id number] ####Scientific Illustrator: ALEKSANDRA NUNEZ ([id number])[facility]AMPUSA [place] [facility])[address] LEUKOCYTE ESTERASE PRESENCE IN URINE BY TEST STRIP Negative Normal Negative [facility] Comment on above: Performed By: #### L [id number] ####Scientific Illustrator: ALEKSANDRA NUNEZ ([id number])[facility])[address] MUCUS (#/LPF) IN URINE SEDIMENT Many Abnormal Negative [facility] Comment on above: Performed By: #### L [id number] ####Scientific Illustrator: ALEKSANDRA NUNEZ ([id number])[facility])[address] NITRITE PRESENCE IN URINE Negative Normal Negative [facility] Comment on above: Performed By: #### L [id number] ####Scientific Illustrator: ALEKSANDRA NUNEZ ([id number])[facility] CAMPUSA [facility] ([facility])[address] pH (U) 5.5 [pH] Normal 5.0-8.0 [facility] Comment on above: Performed By: #### L [id number] ####Scientific Illustrator: ALEKSANDRA NUNEZ ([id number])[facility] CAMPUSA [place] ([facility])[address] Protein (U) [Mass/Vol] 10 mg/dL Abnormal Negative [facility] Comment on above: Performed By: #### L [id number] ####Scientific Illustrator: ALEKSANDRA NUNEZ ([id number])[facility] CAMPUSA [place] ([facility])[address] RBC (#/HPF) IN URINE SEDIMENT 0-2 Normal 0-2 [facility] Comment on above: Performed By: #### L [id number] ####Scientific Illustrator: ALEKSANDRA NUNEZ ([id number])[facility] CAMPUSA [place] ([facility])[address] Specific gravity (U) [Rel density] 1.028 Normal 1.005-1.03 0 [facility] Comment on above: Performed By: #### L [id number] ####Scientific Illustrator: ALEKSANDRA NUNEZ ([id number])[facility] CAMPUSA [place] ([facility])[address] SQUAMOUS EPITHELIAL CELLS (#/HPF) IN URINE SEDIMENT 0-2 Normal 3-5 [facility] Comment on above: Performed By: #### L [id number] ####Scientific Illustrator: ALEKSANDRA NUNEZ ([id number])[facility] CAMPUSA [facility] ([facility])[address] UROBILINOGEN (MG/DL) IN URINE Normal Normal Normal (0-1) [facility] Comment on above: Performed By: #### L [id number] ####Scientific Illustrator: ALEKSANDRA NUNEZ ([id number])[facility] ([facility])[address] WBC (LEUKOCYTE) (#/HPF) IN URINE SEDIMENT 0-2 Normal 0-5 [facility] Comment on above: Performed By: #### L [id number] ####Scientific Illustrator: ALEKSANDRA NUNEZ ([id number])[facility]AMPUSA [place] ([facility])[address] COMPREHENSIVE METABOLIC PANE Ra 07-18-2024 Albumin [Mass/Vol] 4.0 g/dL Normal 3.4-4.8 [facility] Comment on above: Performed By: #### L AB17 ####Scientific Illustrator: ALEKSANDRA NUNEZ ([id number])[facility] [place] ([facility])[address] ALP [Catalytic activity/Vol] 71 U/L Normal 40-150 [facility] Comment on above: Performed By: #### L AB17 ####Scientific Illustrator: ALEKSANDRA NUNEZ ([id number])[facility]AMPUSA [place] ([facility])[address] ALT [Catalytic activity/Vol] 14 U/L Normal <40 [facility] Comment on above: Performed By: #### L AB17 ####Scientific Illustrator: ALEKSANDRA NUNEZ ([id number])[facility] CAMPUSA [place] ([facility])[address] Anion gap [Moles/Vol] 10 mmol/L Normal 3-13 [facility] Comment on above: Performed By: #### L AB17 ####Scientific Illustrator: ALEKSANDRA NUNEZ ([id number])[facility] CAMPUSA [place] ([facility])[address] AST [Catalytic activity/Vol] 25 U/L Normal <34 [facility] Comment on above: Performed By: #### L AB17 ####Scientific Illustrator: ALEKSANDRA NUNEZ ([id number])[facility] CAMPUSA [place] ([facility])[address] Bilirubin [Mass/Vol] 0.7 mg/dL Normal <1.2 [facility] Comment on above: Performed By: #### L AB17 ####Scientific Illustrator: ALEKSANDRA NUNEZ ([id number])[facility] CAMPUSA [place] ([facility])[address] Calcium [Mass/Vol] 9.3 mg/dL Normal 8.8-10.0 [facility] Comment on above: Performed By: #### L AB17 ####Scientific Illustrator: ALEKSANDRA NUNEZ ([id number])[facility] CAMPUSA [place] ([facility])[address] [place] [address] [place] Chloride [Moles/Vol] 107 mmol/L Normal 98-107 [facility] Comment on above: Performed By: #### L AB17 ####Scientific Illustrator: ALEKSANDRA NUNEZ ([id number])[facility] CO2 [Moles/Vol] 24 mmol/L Normal 23-31 [facility] Comment on above: Performed By: #### L AB17 ####Scientific Illustrator: ALEKSANDRA NUNEZ ([id number])[facility])[address] Creatinine [Mass/Vol] 0.94 mg/dL Normal 0.72-1.25 [facility] Comment on above: Performed By: #### L AB17 ####Scientific Illustrator: ALEKSANDRA NUNEZ ([id number])[facility] ([facility])[address] GLOMERULAR FILTRATION RATE ML/MIN/1.73 SQ M.PREDICTED 87.8 mL/min/1.73m*2 Normal >60.0 [facility] Comment on above: Result Comment: Calc ulation based on the Chronic Kidney Disease Epidemiology Collaboration (CKD-EPI) equation refit without adjustment for race Performed By: #### L AB17 ####Scientific Illustrator: ALEKSANDRA NUNEZ ([id number])[facility] ([facility])[address] Glucose [Mass/Vol] 92 mg/dL Normal 82-115 [facility] Comment on above: Performed By: #### L AB17 ####Scientific Illustrator: ALEKSANDRA NUNEZ ([id number])[facility] ([facility])[address] [place] [address] [place] Potassium [Moles/Vol] 4.9 mmol/L Normal 3.5-5.1 [facility] Comment on above: Result Comment: [facility] potassium values may be up to 0.5 mmol/L lower than serum values. Performed By: #### L AB17 ####Scientific Illustrator: ALEKSNADRA NUNEZ ([id number])[facility] ([facility])[address] Protein [Mass/Vol] 7.0 g/dL Normal 6.4-8.3 [facility] Comment on above: Performed By: #### L AB17 ####Scientific Illustrator: ALEKSANDRA NUNEZ ([id number])[facility] CAMPUSHeather [facility]LAINT[facility] ([facility])[address] Sodium [Moles/Vol] 141 mmol/L Normal 136-145 [facility] Comment on above: Performed By: #### L AB17 ####Scientific Illustrator: ALEKSANDRACHUNG NUNEZ ([id number])[facility] ([facility])[address] Urea nitrogen [Mass/Vol] 14 mg/dL Normal 9-23 [facility] Comment on above: Performed By: #### L AB17 ####Scientific Illustrator: ALEKSANDRA CEJAILDA ([id number])[facility] ([facility])[address] MRSA BY PCRon 07-18-2024 MRSA BY PCR STAPHYLOCOCCUS AUREU S Reference Not Detected Not Detected MECA GENE Reference Not Detected Not Detected ORDER COMMENTS: No Staphylococcus aureus detected. Negative nasal MRSA PCR has a high negative predictive value for MRSA pneumonia. Consider stopping Vancomycin if no other clinical indication. Contact Antimicrobial Stewardship for further recommendations. Staphylococcus aureus nasal screen by real-time PCR. This test was modified and its performance characteristics determined by [facility]. The U. [place]. Food and Drug Administration has not approved or cleared this test; however, FDA clearance or approval is not currently required for clinical use. The results are not intended to be used as the sole means for clinical diagnosis or patient management decisions. Normal [facility] Comment on above: Performed By: #### L [id number] #### Scientific Illustrator: MARILEE ALVARADO ([id number]) [facility] ([facility]) [address] PROTIME AND APTTon aPTT Coag (Bld) [Time] 24.5 s Normal 20.0-30.5 [facility] Comment on above: Performed By: #### L [id number] ####Scientific Illustrator: ALEKSANDRA NUNEZ ([id number])[facility] ([facility])[address] [place] [address] INR Coag (PPP) [Relative time] 1.0 {INR} Normal 0.9-1.1 [facility] Comment on above: Result Comment: Adebayo mmended Anticoagulant Therapy: SEE BELOW ----- INR of 2.0 - 3.0 : - Prophylaxis of Venous Thrombosis (high-risk surgery) - Treatment of Venous Thrombosis - Treatment of Pulmonary Embolism (Includes tissue heart valves, Acute Myocardial Infarction to prevent systemic embolism, Valvular Heart Disease, and Atrial Fibrillation) ----- INR of 2.5 - 3.5 : - Mechanical Prosthetic Valves (high risk) - If oral anticoagulant therapy is used to prevent Myocardial Infarction Performed By: #### L [id number] ####Scientific Illustrator: ALEKSANDRA NUNEZ ([id number])[facility] ([facility])[address] [place] [address] PT Coag (PPP) [Time] 11.4 s Normal 9.0-12.0 [facility] Comment on above: Performed By: #### L [id number] ####Scientific Illustrator: ALEKSANDRA NUNEZ ([id number])[facility])[address] [place] [address] Progress Noteon 07-18-2024 Progress Note [facility] NILESH Flores : 1955 Primary Care Physician: Tima Tello MD The patient and/or family/surrogate voluntarily agreed to participate in ACP services. Patient?s cognitive capacity: Full Code Status: [x] [FULL CODE - Continue all advanced life support: CPR,intubation,invasive procedures] [_] [DNR-CCA - DO NOT do CPR, intubation] [_] [DNR-SLITTER AND REWINDER - Comfort care only] [_] DNR form [was/was not] signed Summary of discussion: The patient health care POA/ surrogate is the following: None . [Condition that instigated the ACP on this DOS, relevant PMH, functional status, goals of care, and whom this was discussed with including names and relationship to the patient, and any relevant advance care documentation discussion] I answered all the patient/family questions that I could within the range and scope of the current medical situation. We discussed the medical conditions, risks, benefits, outcomes, and goals of care at this time for the patient's medical issues at hand in the face of the patient's chronic issues and current presentation. Total time spent: 5 minutes were spent discussing the patient's resuscitation status, advance care planning, and end of life care, with patient and/or family/surrogate. Xander Sandoval PA-C Acute care [facility] 07/18/2024, 1:28 PM [facility] 29on 07-12-2024 29 Addended by: RUDDY EATON on: 07/12/2024 10:40 AM Modules accepted: Orders [facility] 36on 07-12-2024 36 Meds sent and orders placed [facility] Office Visiton 07-10-2024 Follow-up visit [id number] Luther Flores 1955 M Date Provider Department Center 07/10/2024 [id number] [facility] [place] [facility] [place] [facility] [place] Family History Problem Relation Age of Onset Heart disease Father No Known Problems Mother Cancer Maternal Grandfather Family Status - Relation Status Age at Father Mother Alive Brother Alive Maternal Grandfather Level of Service:[address]35 [place] OFFICE/OUTPATIENT NEW [facility] 60 MINUTES (57) Reason for Visit and Comments: New Patient [542] [facility] Progress Noteon 07-10-2024 Progress Note Pre op teaching done with patient. Instructed to hold NSAIDS 7 days prior to surgery. All other medications per [facility] protocol. Pharmacy confirmed. All questions answered. [facility] Progress Note [facility] CARDIOVASCULAR & THORACIC SURGERY [address] [facility] [address] Dept: [phone] Dept Loc: [phone] Visit type: New Reason for Visit: CAD Assessment: 1. 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 Angina, class III (CMS/HCC) (HCC) 3. Essential hypertension 4. Malignant neoplasm of right lung, unspecified part of lung (HCC) Recommendations: He will undergo CABG as the best revascularization option. This was explained to him in detail. The risks were outlined in terms of the STS risk calculator. All questions were answered. We will need to obtain his echocardiogram or repeat the study prior to his operation. Other preoperative testing has been ordered. He is ready to proceed. At least 2/3 of his LAD has been stented which will make for a very distal bypass graft. STS Risk Calculator Procedure Type: Isolated CABG Perioperative Outcome Estimate % Operative Mortality 1% Morbidity & Mortality 4.45% Stroke 0.675% Renal Failure 0.668% Reoperation 2.35% Prolonged Ventilation 2.08% Deep Sternal Wound Infection 0.11% Long Hospital Stay (>14 days) 1.82% Short Hospital Stay (<6 days)* 62.4% History of Present Illness Sharonda Flores is a 68 y.o. male referred by Dr. Tineo for CABG. Per note, pt with PMHx CAD (s/p several PCI, most recently 2011 - LAD, LCx, distal RCA with known PHYSICIAN NON INVASIVE CARDIOLOGIST D2), preserved LVEF (65%), HTN, HLD, PAD (follows with vascular at [facility]), prior tobacco use, pulmonary nodules, adenocarcinoma s/p RUL lobectomy 01/2024 (follows with pulmonology), and psoriasis. Pt had presented to [facility] with a sharp pain in the center of his chest with left shoulder ache. He had associated diaphoresis and nausea. EKG was normal. Chest xray was negative. Troponin was WNL. Pt was discharged and advised to follow up with Cardiology. Pt reported left shoulder pain for the past month. A stress echocardiogram was ordered and completed on 06/25/24 which was abnormal. He thenunderwent a heart catheterization on 07/08/24 which demonstrated multivessel CAD. Pt is a former smoker. Pt is here now for an evaluation. He describes anginal pain that starts in his left shoulder and radiates down his left arm. It comes with exertion and sometimes without. He was recently given isosorbide which has helped his symptoms considerably. He denies shortness of breath with it. He quit smoking about 12 years ago and is not diabetic. He lives alone and can take care of all his daily activities. About 3 months ago he had a right VATS lobectomy for lung cancer at [facility]. He has recovered well since then. Past Medical History Past Medical History: Diagnosis Date Arrhythmia v-fib/ arrest CAD (coronary artery disease) Congenital heart disease Hyperlipidemia Hypertension [place], old Sleep apnea Past Surgical History Past Surgical History: Procedure Laterality Date CARDIAC CATHETERIZATION N/A 07/05/2024 Performed by Becky Tineo MD at [facility] Cardiac Cath/EP Lab CARDIAC PROCEDURE 03/15/2012 BMS mid dis RCA CARDIAC PROCEDURE 03/2012 REBECCA to mis dist LAD CARDIAC PROCEDURE 05/2012 REBECCA to prox LCx CORONARY ANGIOPLASTY 05/2012 circ, distal RCA, & LAD Family History Family History Problem Relation Name Age of Onset Heart disease Father Thad No Known Problems Mother Cancer Maternal Grandfather Mother Social History Marital status: Work history: Retired [place] status: Never Served Social History Tobacco Use Smoking status: Former Current packs/day: 0.00 Average packs/day: 2.0 packs/day for 56.1 years (112.2 ttl pk-yrs) Types: Cigarettes Start date: 1955 Quit date: 08/17/2011 Years since quittin.9 Smokeless tobacco: Former Quit date: 1970 Tobacco comments: Quit smoking: currently occ cigar Substance Use Topics Alcohol use: No Drug use: No Allergies Allergies Allergen Reactions Pcn [Penicillins] Rash Medications Current Outpatient Medications: aspirin 81 MG EC tablet, Take 81 mg by mouth daily., Disp: , Rfl: atorvastatin (Lipitor) 80 MG tablet, Take 1 tablet (80 mg) by mouth every evening., Disp: 90 tablet, Rfl: 3 carvedilol (Coreg) 6.25 MG tablet, Take 1 tablet (6.25 mg) by mouth 2 times daily., Disp: 180 tablet, Rfl: 3 ezetimibe (Zetia) 10 MG tablet, Take 10 mg by mouth in the morning., Disp: , Rfl: isosorbide mononitrate ER (Imdur) 30 MG 24 hr tablet, Take 1 tablet (30 mg) by mouth daily. Do not crush or chew., Disp: 30 tablet, Rfl: 11 nitroglycerin (Nitrostat) 0.4 MG SL tablet, DISSOLVE 1 TABLET UNDER THE TONGUE EVERY 5 MINUTES NEEDED., Disp: , Rfl: Review of Systems Review of Systems Constitutional: Positive for diaphoresis (on exertion). Respiratory: Positive for shortness of breath (on exertion). Cardiovascular: Positive for (more content not included)... Normal [facility] 36on 07-02-2024 36 Spoke w/pt re: C instructions. Pt requesting instructions via [employer]. Normal [facility] 36 Prep for proc completed Normal [facility] 36 Called patient to of selina this Monday07/05/2024 and l/m to cmb No auth req per Medicare Normal [facility] Basic metabolic 2000 panelon 06-28-2024 Anion gap [Moles/Vol] 12 mmol/L Normal 8-15 [facility] Comment on above: Order Comment: Speci men Type: BLOOD SPECIMENOrdering Facility: [facility] Address: [address] [place] [address] Performed By: #### 2 4321-2 ####[facility] LABCLIA [id number] [place] [address] [place] Calcium [Mass/Vol] 9.1 mg/dL Normal 8.5-10.2 [facility] Comment on above: Order Comment: Speci men Type: BLOOD SPECIMENOrdering Facility: [facility] Address: [address] [place] [address] Performed By: #### 2 4321-2 ####[facility] LABCLIA [id number] [place] [address] [place] Chloride [Moles/Vol] 104 mmol/L Normal 98-107 [facility] Comment on above: Order Comment: Speci men Type: BLOOD SPECIMENOrdering Facility: [facility] Address: [address] [place] [address] Performed By: #### 2 4321-2 ####[facility] LABCLIA [id number] [place] [id number] [place] CO2 [Moles/Vol] 28 mmol/L Normal 22-30 [facility] Comment on above: Order Comment: Speci men Type: BLOOD SPECIMENOrdering Facility: [facility] Address: [address] [place] [address] Performed By: #### 2 4321-2 ####[facility] LABCLIA [id number] [place] [id number] [place] Creatinine [Mass/Vol] 0.97 mg/dL Normal 0.73-1.22 [facility] Comment on above: Order Comment: [facility] men Type: BLOOD SPECIMENOrdering Facility: [facility] Address: [address] [place] [address] Performed By: #### 2 4321-2 ####[facility] LABCLIA [id number] [place] [id number] [place] Creatinine and Glomerular filtration rate.predicted panel (S/P/Bld) 85 mL/min/1.73m??? Normal >=60 [facility] Comment on above: Order Comment: [facility] sterling Type: BLOOD SPECIMENOrdering Facility: [facility] Address: [address] [place] [address] Result Comment: Piedad mated Glomerular Filtration Rate (eGFR) is calculated using the 2020 CKD-EPI creatinine equation. This equation utilizes serum creatinine, sex, and age as parameters. The creatinine assay has traceable calibration to isotope dilution-mass spectrometry. Refer to KDIGO guidelines for clinical interpretation. In patients with unstable renal function, e.g. those with acute kidney injury, the eGFR may not accurately reflect actual GFR. Performed By: #### 2 4321-2 ####[facility] LABCLIA [id number] [place] [id number] [place] Glucose [Mass/Vol] 88 mg/dL Normal 74-99 [facility] Comment on above: Order Comment: [facility] sterling Type: BLOOD SPECIMENOrdering Facility: [facility] Address: [address] [place] [address] Result Comment: The [place] Diabetes Association (ADA) provides guidance for cutoff values for fasting glucose and random glucose. The ADA defines fasting as no caloric intake for at least 8 hours. Fasting plasma glucose results between 100 to 125 mg/dL indicate increased risk for diabetes (prediabetes). Fasting plasma glucose results greater than or equal to 126 mg/dL meet the criteria for diagnosis of diabetes. In the absence of unequivocal hyperglycemia, results should be confirmed by repeat testing. In a patient with classic symptoms of hyperglycemia or hyperglycemic crisis, random plasma glucose results greater than or equal to 200 mg/dL meet the criteria for diagnosis of diabetes. Reference: Standards of Medical Care in Diabetes 2016, [place] Diabetes Association. Diabetes Care. 2016.39(Suppl 1). Performed By: #### 2 4321-2 ####[facility] LABCLIA [id number] [place] [address] [place] Potassium [Moles/Vol] 4.1 mmol/L Normal 3.7-5.1 [facility] Comment on above: Order Comment: [facility] sterling Type: BLOOD SPECIMENOrdering Facility: [facility] Address: [address] [place] [address] Performed By: #### 2 4321-2 ####[facility] LABCLIA [id number] [place] [address] [place] Sodium [Moles/Vol] 144 mmol/L Normal 136-144 [facility] Comment on above: Order Comment: [facility] sterling Type: BLOOD SPECIMENOrdering Facility: [facility] Address: [address] [place] [address] Performed By: #### 2 4321-2 ####[facility] LABCLIA [id number] [place] [id number] [place] Urea nitrogen [Mass/Vol] 15 mg/dL Normal 9-24 [facility] Comment on above: Order Comment: [facility] sterling Type: BLOOD SPECIMENOrdering Facility: [facility] Address: [address] [place] [address] Performed By: #### 2 4321-2 ####[facility] LABCLIA [id number] [address] [address] [place] CBC panel Auto (Bld)on 06-28 Erythrocyte distribution width (RBC) [Ratio] 12.7 % Normal 11.5-15.0 [facility] Comment on above: Order Comment: Speci men Type: BLOOD SPECIMENOrdering Facility: [facility] Address: [address] [place] [address] Performed By: #### 5 8410-2 ####[facility] STONEKeronNCMARY [id number] [place] [address] [place] Hematocrit (Bld) [Volume fraction] 39.6 % Normal 39.0-51.0 [facility] Comment on above: Order Comment: Speci men Type: BLOOD SPECIMENOrdering Facility: [facility] Address: [address] [place] [address] Performed By: #### 5 8410-2 ####[facility] P[facility]ACOLAIMRANDA [id number] [place] [address] [place] Hemoglobin (Bld) [Mass/Vol] 12.7 g/dL Low 13.0-17.0 [facility] Comment on above: Order Comment: Speci men Type: BLOOD SPECIMENOrdering Facility: [facility] Address: [address] [place] [address] Performed By: #### 5 8410-2 ####[facility] P[facility]ACOLAMIRANDA [id number] [place] [address] [place] MCH (RBC) [Entitic mass] 27.5 pg Normal 26.0-34.0 [facility] Comment on above: Order Comment: Speci men Type: BLOOD SPECIMENOrdering Facility: [facility] Address: [address] [place] [address] Performed By: #### 5 8410-2 ####[facility]ACOLAMIRANDA [id number] [place] [address] [place] MCHC (RBC) [Mass/Vol] 32.1 g/dL Normal 30.5-36.0 [facility] Comment on above: Order Comment: Speci men Type: BLOOD SPECIMENOrdering Facility: [facility] Address: [address] [place] [address] Performed By: #### 5 8410-2 ####[facility] BRANDIEWBRITLIA [id number] [place] [address] [place] MCV (RBC) [Entitic vol] 85.7 fL Normal 80.0-100.0 [facility] Comment on above: Order Comment: Speci men Type: BLOOD SPECIMENOrdering Facility: [facility] Address: [address] [place] [address] Performed By: #### 5 8410-2 ####[facility] PENSACOLABRITLIA [id number] [place] [address] [place] Nucleated RBC (Bld) [#/Vol] 10*3/uL Normal <0.01 [facility] Comment on above: Order Comment: Speci men Type: BLOOD SPECIMENOrdering Facility: [facility] Address: [address] [place] [address] Performed By: #### 5 8410-2 ####[facility] PENSACOLABRITLIA [id number] [place] [address] [place] Platelet mean volume (Bld) [Entitic vol] 11.0 fL Normal 9.0-12.7 [facility] Comment on above: Order Comment: Speci men Type: BLOOD SPECIMENOrdering Facility: [facility] Address: [address] [place] [address] Performed By: #### 5 8410-2 ####[facility] PENSACOLABRITLIA [id number] [place] [address] [place] Platelets (Bld) [#/Vol] 146 10*3/uL Low 150-400 [facility] Comment on above: Order Comment: Speci men Type: BLOOD SPECIMENOrdering Facility: [facility] Address: [address] [place] [address] Performed By: #### 5 8410-2 ####[facility] HOSPITALLIA [id number] [place] [address] [place] RBC (Bld) [#/Vol] 4.62 10*6/uL Normal 4.20-6.00 [facility] Comment on above: Order Comment: Speci men Type: BLOOD SPECIMENOrdering Facility: [facility] Address: [address] [place] [address] Performed By: #### 5 8410-2 ####[facility] [id number] [place] [address] [place] WBC (Bld) [#/Vol] 4.29 10*3/uL Normal 3.70-11.00 [facility] Comment on above: Order Comment: Speci men Type: BLOOD SPECIMENOrdering Facility: [facility] Address: [address] [place] [address] Performed By: #### 5 8410-2 ####[facility] [id number] [place] [address] [place] 36on 06-26-2024 36 Lab orders faxed to PCP office [phone]/confirmed Normal [facility] 36on 06-25-2024 36 Patient reviewed pawan Tineo who recommends OP LHC/coronary angiography. PC to patient to review recommendation. Reviewed indications and potential risks and benefits. Patient is agreeable to plan. Will place case request. He will need pre-procedure labs. H&P and EKG valid through 07/11/24. Patient to start imdur 30 mg daily. Advised on potential side effects, premedication with tylenol, and blood pressure monitoring. Patient verbalizes understanding and is agreeable to plan. Normal [facility] [address] ates he was not able to complete all stages of the stress test due to significant leg weakness, left shoulder pain, and acid taste in mouth. States he was told blood pressure was elevated at stress test today, but mostly controlled at home. Provides me with various readings ranging 110s-130s/60-70s. He states he had US of bilateral legs, arm, and neck that he was told have moderate blockage. He was ordered PT. I would like to review the stress test with Dr. Tineo as well as obtain records from vascular US's. Patient is agreeable to plan. Normal [facility] 36 Name of caller: Luther bob Contact phone number: [phone] Relationship to Patient: Patient Provider: Dr Tineo Practice: [facility] Chief Complaint/Reason for Call: Patient had Stress Test today and was told he would have to come back as he was unable to finish the test. Please advise patient accordingly. Best time of day caller can be reached: any Patient advised that office/PCP has 24-48 business hours to return their call: No Normal [facility] No Panel InformationOrdered By: Joshua Fonseca on 06-25-2024 Angina Index 0 [employer] Phone: Ao Root Index 1.8 cm/m2 [employer] Phone: Aortic Root 3.2 cm [employer] Phone: Aortic Sinus Valsalva 3.2 cm [employer] Phone: Aortic Sinus Valsalva Index 1.8 cm/m2 [employer] Phone: Ascending Aorta 2.5 cm [employer] Phone: Ascending Aorta Index 1.4 cm/m2 [employer] Phone: AV Area by Peak Velocity 2.1 cm2 [employer] Phone: AV Area by VTI 2.3 cm2 [employer] Phone: AV Mean Gradient 4 mmHg [employer] Phone: [phone] AV Mean Velocity 0.9 m/s [employer] Phone: AV Peak Gradient 7 mmHg [employer] Phone: AV Peak Velocity 1.4 m/s [employer] Phone: AV Velocity Ratio 0.57 [employer] Phone: AV VTI 27.9 cm [employer] Phone: JOE/BSA Peak Velocity 1.2 cm2/m2 Sum sd [employer] Work Phone: JOE/BSA VTI 1.3 cm2/m2 [facility] [employer] Work Phone: Baseline Diastolic BP 84 mmHg Sum sd [employer] Work Phone: Baseline HR [address] [facility] [employer] Work Phone: Baseline ST Depression 0 mm [facility] Work Phone: Baseline Systolic BP 140 mmHg Summ [employer] Work Phone: EF BP 67 % 55 - 100 % [facility] [employer] Work Phone: Fractional Shortening 2D 43 % 28 - 44 % [facility] [employer] Work Phone: Global Longitudinal Strain -16.5 % [facility] [employer] Work Phone: [phone] Interpretation and review of laboratory results Abnormal [facility] [employer] Phone: IVSd 0.9 cm 0.6 - 1.[address] [facility] [employer] Work Phone: LA Diameter 3.[address] [facility] [employer] Work Phone: LA Size Index 2.19 cm/m2 [facility] [employer] Work Phone: LA Volume 2C 32 mL 18 - [address] [facility] [employer] Work Phone: LA Volume 4C 35 mL 18 - [address] [facility] [employer] Phone: LA Volume A/L [address] [facility] [employer] Work Phone: LA Volume BP 35 mL 18 - [address] [facility] [employer] Work Phone: LA Volume Index 2C 18 mL/m2 16 - 34 mL/m2 [facility] [employer] Work Phone: LA Volume Index 4C 20 mL/m2 16 - 34 mL/m2 [facility] [employer] Work Phone: LA Volume Index A/L 21 mL/m2 16 - 34 mL/m2 [facility] [employer] Work Phone: LA Volume Index BP 20 ml/m2 16 - 34 ml/m2 [facility] [employer] Work Phone: LA/AO Root Ratio 1.22 [facility] [employer] Work Phone: LV EDV A2C 53 mL [employer] Work Phone: LV EDV A4C 71 mL INAPPINa [employer] Work Phone: LV EDV BP 63 mL Abnormal 67 - 155 mL [employer] Work Phone: LV EDV Index A2C 30 mL/m2 [employer] Work Phone: LV EDV Index A4C 40 mL/m2 [employer] Work Phone: LV EDV Index BP 35 mL/m2 [employer] Work Phone: LV Ejection Fraction A2C 62 % [employer] Work Phone: LV Ejection Fraction A4C 70 % [employer] Work Phone: LV ESV A2C 20 mL [employer] Work Phone: LV ESV A4C 21 mL [employer] Work Phone: LV ESV BP 21 mL Abnormal 22 - 58 mL [employer] Work Phone: LV ESV Index A2C 11 mL/m2 [employer] Work Phone: LV ESV Index A4C 12 mL/m2 [employer] Work Phone: LV ESV Index BP 12 mL/m2 [employer] Work Phone: LV Mass 2D 118.2 g 88 - 224 g [employer] Work Phone: LV Mass 2D Index 66.4 g/m2 49 - 115 g/m2 [employer] Work Phone: LV RWT Ratio 0.5 [employer] Work Phone: LVIDd 4 cm Abnormal 4.2 - 5.9 cm [employer] Work Phone: LVIDd Index 2.25 cm/m2 [employer] Work Phone: LVIDs 2.3 cm [employer] Work Phone: LVIDs Index 1.29 cm/m2 [employer] Work Phone: LVOT Area 3.8 cm2 [facility] Work Phone: [phone] LVOT Cardiac Output 4.5 liter/mi nu te [facility] Work Phone: [phone] LVOT Diameter 2.[address] [facility] [employer] Work Phone: [phone] LVOT Mean Gradient 1 mmHg [facility] Work Phone: [phone] LVOT Peak Gradient 2 mmHg [facility] [employer] Work Phone: [phone] LV[facility] Peak Velocity 0.8 m/s [facility] Work Phone: [phone] [employer] Stroke Volume Index 35.4 mL/m2 [facility] Work Phone: [phone] LVOT SV 63.[address] [facility] [employer] Work Phone: [phone] LVOT VTI 16.[address] [facility] [employer] Work Phone: [phone] LVOT:AV VTI Index 0.59 [facility] [employer] Work Phone: LVPWd 1 cm 0.6 - 1.0 cm [facility] Work Phone: [phone] Depression (mm) 0.5 mm [facility] Work Phone: [phone] Recovery Stage 1 BP 144/[address] [facility] [employer] Work Phone: Recovery Stage 1 HR 78 bpm [facility] Work Phone: [phone] Recovery Stage 2 BP 190/82 mmHg [facility] Work Phone: Recovery Stage [address] [facility] [employer] Work Phone: Recovery Stage 2 HR 71 bpm [facility] Work Phone: Recovery Stage 3 BP 180/82 mmHg [facility] Work Phone: Recovery Stage 3 HR 72 bpm [facility] Work Phone: Recovery Stage 4 BP 148/80 mmHg [facility] Work Phone: Recovery Stage 4 Comments headache and L shouler ache are resolved [facility] Work Phone: [phone] Recovery Stage 4 HR 75 bpm [facility] Work Phone: [phone] Sinotubular Junction 2.2 cm [facility] Work Phone: [phone] Stress Diastolic BP [address] [facility] [employer] Phone: [phone] Stress Peak HR [address] [facility] [employer] Phone: [phone] Stress Percent HR Achieved 71 % [facility] [employer] Phone: [phone] Stress Rate Pressure Product 09366 bpm*mmHg [facility] [employer] Phone: [phone] Depression 0 mm [facility] [employer] Phone: [phone] Stress Stage 1 BP 138/[address] [facility] [employer] Phone: [phone] Stress Stage [address] [facility] [employer] Phone: [phone] Stress Stage 2 BP 146/[address] [facility] [employer] Phone: [phone] Stress Stage 2 Comments L shoulder ache 10/10 [facility] [employer] Phone: [phone] Stress Stage 2 HR 108 bpm [facility] Phone: [phone] Stress Systolic BP [address] [facility] [employer] Phone: Stress Target HR [address] [facility] [employer] Phone: TAPSE 2.[address] [facility] [employer] Phone: [facility] [employer] Phone: No Panel Informationon 06-25 Study Impression: Ab normal stress echocardiogram. Findings are consistent with mild inferoseptal ischemia. This occured at submaximal heart rate reducing sensitivity for more extensive ischemia. Stress ECG: Conclusion: The stress test is non-diagnostic due to failure to achieve target heart rate. There were minor ST depressions during recovery. Stress Test: A Jude protocol stress test was performed. Hemodynamics are inadequate for diagnosis. Blood pressure demonstrated a blunted response and heart rate demonstrated a blunted response to stress. The patient's heart rate recovery was normal. Left Ventricle: Left ventricle is smaller than normal. Normal wall thickness. Normal left ventricular systolic function. EF by 2D [employer] Bi[employer] is 67%. Normal wall motion. Right Ventricle: Right ventricle size is normal. Normal systolic function. TAPSE is 2.1 cm. Left Ventricle Left ventricle is smaller than normal. Normal wall thickness. Normal left ventricular systolic function. EF by 2D Simpsons Biplane is 67%. Normal wall motion. Right Ventricle Right ventricle size is normal. Normal systolic function. TAPSE is 2.1 cm. Left Atrium Left atrium size is normal. Mitral Valve Valve structure is normal. No regurgitation. No stenosis noted. Tricuspid Valve Valve structure is normal. Trace regurgitation. Aortic Valve Trileaflet. Mildly thickened cusps. No regurgitation. No stenosis. AV mean gradient is 4 mmHg. AV peak velocity is 1.4 m/s. LVOT:AV VTI Index is 0.59. Pulmonic Valve The pulmonic valve visualization is suboptimal but appears to be functioning normally. Trace regurgitation. Ascending Aorta Normal sized sinuses of Valsalva and ascending aorta. Sinuses of Valsalva diameter is 3.2 cm. Ao ascending diameter is 2.5 cm. Pericardium No pericardial effusion. Study Details Post stress images acquired after 58 seconds. Image quality: suboptimal. Additional technique includes myocardial strain. Heart rate: 70 bpm. Blood pressure: 140/84 mmHg. Technical qualifiers: Technically difficult study due to patient's body habitus. No contrast was given. Resting ECG The ECG shows normal sinus rhythm. Resting ECG shows no ST-segment deviation. The ECG shows premature ventricular contractions. Stress Findings A Jude protocol stress test was performed. The patient reached stage 2 of the protocol. The patient experienced no angina during the test. Zina rating of perceived exertion was 17. Hemodynamics are inadequate for diagnosis. Blood pressure demonstrated a blunted response and heart rate demonstrated a blunted response to stress. The patient's heart rate recovery was normal. The patient reported no symptoms prior to the stress test. The patient reported left shoulder ache during the stress test that started at peak exertion and resolved in recovery. The test was stopped because the patient experienced dyspnea and leg pain. Stress ECG Arrhythmias during stress: PACs. No ST depression was noted. Arrhythmias during recovery: PACs. Conclusion: The stress test is non-diagnostic due to failure to achieve target heart rate. Study Impression Abnormal stress echocardiogram. Findings are consistent with inferoseptal ischemia. This occured at submaximal heart rate reducing sensitivity for more extensive ischemia. Comparison Study There is a prior study available for comparison. Wall Scoring Resting Score Index: 1.00 The left ventricular wall motion is normal. Wall Scoring Stress Score Index: 1.12 The following segments are hypokinetic: apical septal and apical inferior. The following segments are hyperkinetic: basal anterior, basal anteroseptal, basal inferoseptal, basal inferior, basal inferolateral, basal anterolateral, mid anterior, mid anteroseptal, mid inferoseptal, mid inferior, mid inferolateral, mid anterolateral, apical anterior, apical lateral and apex. CV CPACS STRESS Vital signsOrdered By: Kelly Fonseca on 06-25-2024 Oxygen saturation in Blood 97 % [facility] [employer] Work Phone: 36on 06-24-2024 36 Received call from Non-invasive radiology stating the Stress Echo that is scheduled for tomorrow 06/25 is not passing medical necessity. *[id number] Normal [facility] Carotid Duplex Ultrasoundon 06-14-2024 Carotid Duplex Ultrasound [facility] [address] [place] [address] Carotid Duplex Ultrasound 06/14/24 0847 MR#: [id number] Acct: [id number] Name: SHARONDA FLORES Rep #: [id number] : 1955 68 From: David Petersen MD Attending Dr: MICHELLE Song Status: REG CLI Ordering Dr: Roxana Plata Date: 06/14/24 Location: [facility] Sex: M C Admitted: Reason For Study: History of CAD, PAD Rt. Velocities/BP Lt. Velocities/BP Prox CCA 100.3/17.9 cm/sec. Prox CCA 122.9/22.5 cm/sec. Mid CCA 113.3/22.5 cm/sec. Mid CCA 113.8/20.6 cm/sec. Dist CCA 109.7/26.2 cm/sec. Dist CCA 101/18.8 cm/sec. Prox ICA 84.6/15.2 cm/sec. Prox ICA 79.1/20.6 cm/sec. Mid ICA 94.9/26.2 cm/sec. Mid ICA 85.1/22.5 cm/sec. Dist ICA 69.1/23.7 cm/sec. Dist ICA 88.8/26.2 cm/sec. Rt. ICA/CCA = 0.84. Lt. ICA/CCA = 0.78. Prox ECA 143/9.7 cm/sec. Prox ECA 99.2/7.9 cm/sec. Rt. Vert. 50.7/12.6 cm/sec. Lt. Vert. 60.5/13.9 cm/sec. Right Extracranial There is homogeneous, smooth atherosclerotic plaque noted in the right common carotid artery. There is intimal thickening but no significant atherosclerotic plaque noted in the right internal carotid artery. There is intimal thickening but no significant atherosclerotic plaque noted in the right external carotid artery. Antegrade flow is noted in the right vertebral artery. Left Extracranial There is homogeneous, smooth atherosclerotic plaque noted in the left common carotid artery. There is homogeneous, smooth atherosclerotic plaque noted in the left internal carotid artery. There is intimal thickening but no significant atherosclerotic plaque noted in the left external carotid artery. Antegrade flow is noted in the left vertebral artery. Procedure Carotid Duplex [id number]. This is a Carotid Duplex examination using B-mode, color flow and specral Doppler. Exam performed in department. VL/Carotid Duplex Ultrasound Interpretation Summary Normal right extracranial internal carotid. Mild (<50%) stenosis left extracranial internal carotid. Patent and antegrade vertebrals bilaterally. Ordering Physician: Roxana Plata Referring Physician: Tima Zheng Performed By: Latosha Clements RVT 06/17/24 1311 Date David Petersen MD CC: MICHELLE Song; Dr. 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 [facility] 36 [facility], and I actually discontinued his lisinopril (5 mg) at our visit because his blood pressure was low normal. Perhaps this was another office? PCP maybe? [facility] 36on 06-12-2024 36 Patient called and katia Romo called him when he was on his way home yesterday from his appt stating she wants him to stay on the lisinopril 10mg and she would send to his pharmacy. Nothing there and it's discontinued on his list. [facility] [address] [facility] 36on 06-11-2024 36 Scanned under Media [facility] 36 Requested ED records . Waiting on fax [facility] 37on 06-11-2024 37 Please obtain a [employer] Engine d pressure cuff for home monitoring. You can find these at any local pharmacy, [employer], etc. It should be an upper arm cuff as these are more accurate than wrist cuffs. Omron is a good brand and their standard cuff is around $40. When measuring your blood pressure, you should be sitting in a comfortable position, back and arm supported, feet flat on the floor, empty bladder, and relaxed for about 5 minutes before you take the reading. You want to wait 90-120 min after you have taken your blood pressure medications. You can take it before your medications if you would like to see where your blood pressure is starting, but we want to know what your blood pressure is with your medications on board so we know if your regimen is effective. Your blood pressure goal is to be less than 130 for the top number, and less than 80 for the bottom number. Do this daily, preferably around the same time each day, and keep a log. If you are consistently getting numbers above goal, contact our office, as we can potentially make adjustments over the phone or bring you in for a sooner appointment. Please bring this log to your follow up appointments. [facility] CNPNon 06-11-2024 RENEEN Telephone (FAMPWS) -- SHARONDA FLORES ([id number]) 1955 M UPA Date Time Provider Department 06/11/24 FORTUNATO JURADO During your visit today, we recorded the following information about you: Fortunato Jurado APRN.RENEE 06/11/2024 9:49 AM Signed Please let the patient know that his cholesterol panel is worse than prior. Not sure if it is secondary to running out of Zetia. Let's get have start taking his Zetia and Lipitor routinely and recheck cholesterol in 3 months prior to his next visit with his PCP team. Fortunato Jurado APRN.Tosin Calvert LPN 06/11/2024 10:39 AM Signed Patient notified. Verbalized understanding. Allergies As of Date: 06/11/2024 Noted Allergy Reaction PENICILLINS 05/23/2008 4 - Hives Date Reviewed: 06/10/2024 Reviewed by: Tosin Trevizo LPN - Fully Assessed Reason for Visit: Results [95] Primary Visit Diagnosis:Hyperlipidemia, mixed [E78.2] Order(s):LIPID PANEL BASIC [SQLIPB] Order #: [id number] FUTURE Prescriptions as of 06/11/2024 - ezetimibe (ZETIA) 10 mg tablet Take 1 tablet by mouth once daily. - iv contrast (will be provided with radiology test) CT Chest W -Inject, intravenously, once for 1 dose.No IV access, insert saline lock prior to the beginning of sedation, infusion, injection of imaging exam. Discontinue saline lock post exam. If Pt. has a central line or IVAD, may access for administration according to line specific nursing protocol. Once exam is complete flush line and de-access according to line specific nursing protocol in the CT contrast administration guidelines link. - atorvastatin (LIPITOR) 80 mg tablet Take 1 tablet by mouth daily at bedtime. For cholesterol. - nitroglycerin sublingual (NITROQUICK) 0.4 mg SL tablet Dissolve 1 tablet under the tongue every 5 minutes as needed. - Aspirin 81 mg Tab Take 81 mg by mouth once daily. - carvedilol (COREG) 6.25 mg tablet Take 6.25 mg by mouth two times a day with meals. - lisinopril (ZESTRIL) 5 mg tablet Take 5 mg by mouth once daily. Problem List As Of Date 06/11/2024 Noted Resolved PERS HX PENICILLIN ALLERGY [Z88.0] 06/03/2008 Class: Chronic TOBACCO USE DISORDER [F17.200] 06/03/2008 SPRAIN SHOULDER/ARM NOS [UJR3605] 06/03/2008 JOINT PAIN-ANKLE [M25.579] 06/03/2008 HERPES SIMPLEX NOS [B00.9] 06/03/2008 MIXED HYPERLIPIDEMIA [E78.2] 07/02/2008 SCREENING MAL NEOP-COLON [Z12.11] 10/08/2008 BENIGN NEOPLASM LG BOWEL [D12.6] 10/08/2008 Coronary artery disease involving chilkoot lacey* Essential hypertension [I10] Thrombocytopenia (HCC) [D69.6] Tinnitus of both ears [H93.13] Psoriasis [L40.9] Abdominal aortic aneurysm (AAA) without rupture*06/08/2021 At risk for sleep apnea [Z91.89] 11/29/[address] nodules on CT [R91.8] 11/09/2023 Lung nodule [R91.1] 12/15/2023 S/P lobectomy 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 Office Visiton 06-11-2024 Follow-up visit [id number] Luther Flores 1955 M Date Provider Department Center 06/11/2024 Jack-HORACE MARTINEZ [facility] [address] Family History Problem Relation Age of Onset Heart disease Father No Known Problems Mother Family Status - Relation Status Age at Father Mother Alive Brother Alive Level of Service:62967 [place] OFFICE/OUTPATIENT ESTABLISHED MOD MDM 30 MIN Reason for Visit and Comments: Hospital Follow-up [832] Chest Pain [878155] Normal [facility] Progress Noteon 06-11-2024 Progress Note [facility] [place] [address] [facility] [id number] Dept: [phone] Dept Visit type: Established : 1955 Reason for Visit: Hospital Follow-up and Chest Pain Assessment and Plan MVCAD with history of PCI with episode of atypical chest pain and new left shoulder pain - Left shoulder pain x 1 month and one episode of chest pain. Patient reports vague symptoms with prior PCIs. His last stress test was in 2019 with no ischemia. He admits he has not been compliant with his statin therapy (states he has never taken it consistently). Blood pressure is low normal today, so unable to add anti-anginal therapy. At this time, I recommend we repeat a stress echocardiogram. He will continue ASA 81 mg daily, carvedilol 6.25 mg BID, atorvastatin 80 mg daily, and ezetimibe 10 mg daily. Patient advised to call sooner with new or worsening symptoms. Essential hypertension - Blood pressure is low normal today. Patient does not check his blood pressure at home. Repeat blood pressures in both arms are equal. Patient denies symptoms. At this time we will hold his lisinopril. I have asked patient to purchase a home blood pressure monitor, keep a daily log, and bring to follow up appointment. I have reviewed goal <130/80 and asked he contact our office if he is consistently getting readings above this or if he continues to get low readings. Per my chart review, he has typically been in the 120s systolic at other office visits. Continue carvedilol 6.25 mg BID . Continue lifestyle interventions including dietary salt reduction, DASH diet, achieving and maintaining healthy weight, aerobic exercise at least 30 min daily most days of the week, no smoking, and no excessive alcohol use. Mixed hyperlipidemia - LDL 184 on 06/10/24; goal <70, ideally <55 per ESC guidelines. Patient admits he has not been compliant with his statin. His PCP added ezetimibe 10 mg daily which he plans to picker and sorter load and unload today. Reviewed lipid panel drawn yesterday with patient, educated on lifestyle interventions to improve triglycerides, LDL and HDL. Continue atorvastatin 80 mg daily and ezetimibe 10 mg daily. Advised patient he needs to be on daily therapy for 3 months before we can repeat lipid panel. PAD (peripheral artery disease) - Patient following with [facility]. R > L DP pulses. Is to schedule further assessment of LLE. Continue ASA 81 mg daily, atorvastatin 80 mg daily, and ezetimibe 10 mg daily. Received records from [facility] following our visit today (scanned in media tab). Assessment and plan below: Follow up in about 1 month (around 07/11/2024). Subjective HPI Sharonda Flores is a 68 year old male, known to Dr. Tineo, with PMHx CAD (s/p several PCI, most recently 2011 - LAD, LCx, distal RCA with known PHYSICIAN NON INVASIVE CARDIOLOGIST D2), preserved LVEF (65%), HTN, HLD, PAD (follows with vascular at [facility]), prior tobacco use, pulmonary nodules, adenocarcinoma s/p RUL lobectomy 01/2024 (follows with pulmonology), and psoriasis. He contacted our office yesterday after presenting to [facility] over the weekend with right sided chest pain at rest with associated left shoulder/arm pain. He also noticed a acid taste in his mouth and leg weakness. He was recommended an urgent office visit. Sharonda Flores presents today in urgent ER follow up. His ER visit was prompted by a sharp pain in the center of his chest with left shoulder ache. He had associated diaphoresis and nausea. He has been having similar left shoulder ache without chest pain for the past month. This has been occurring both at rest and exertion. Episodes last 5 minutes or less. When symptoms occur with exertion, if he sits and rest they resolve within 5 min. If symptoms occur at rest, he goes and lays down and is able to go to sleep. These does not seem to be a discernable pattern or precipitating factor. He has not tried SL NTG. He also notes bilateral arm weakness with exertion (like when he was leaf blowing last week) and bilateral leg weakness. He was seen by [facility] 06/07/24 and states they found a problem in his left leg that he needs further testing for, right leg was clear. He denies claudication symptoms. He denies lightheadedness, dizziness, bleeding, and swelling. He notes prior injury to his left shoulder and he wonders if some of his symptoms are due to an orthopedic issues. At the time of his prior stenting, he does not recall every having chest pain, just felt unwell. Review of Systems Constitutional: Negative for chills, diaphoresis and fever. HENT: Negative for nosebleeds. Eyes: Negative for visual disturbance. Respiratory: Positive for shortness of breath (cold weather makes worse). Negative for chest tightness and wheezing. Cardiovascular: Positive for chest pain (left shoulder ache). Negative for palpitations and leg swelling. Gastrointestinal: Negative for abdominal pain, (more content not included)... Normal [facility] 36on 06-10-2024 36 Spoke with patient a nd scheduled appt tomorrow Gerri Martinez APRN [facility] 36 Chart and message reviewed. Agree with sooner follow up. I have openings tomorrow if patient is available. Normal [facility] 36 Spoke with patient a nd reviewed below. Patient denies any chest pain since ER visit yesterday. States he will intermittently have left/right shoulder pain for a few months. Denies any associated chest pain, SOB, lightheadedness. Patient able to complete ADLs and walk up flight of stairs without difficulty. Denies lifting anything heavy to cause shoulder pain. States 50 years ago he dislocated left shoulder. When he went to ER, provider mentioned possible outpatient stress test per cardiology follow-up. Gerri Martinez APRN to review and advise. Normal [facility] 36 Chart reviewed, BETH Tineo 01/16/24. History of several PCI, 2011, doing well at time of visit and PAD following vascular at [facility]. PCP visit today, patient went to [facility] yesterday for right sided chest pain, lasting few seconds occurring at rest. Associated with random episodes of left shoulder, arm pain. Also had funny acid taste in mouth with feeling weak in legs when walking. ER cardiac work-up negative. Denies having chest or arm pain when exerting self and denied chest pain today. PCP recommended follow-up cardiology and exam seems more musculoskeletal. Advised patient to follow-up with vascular as well. Patient also follows with pulmonology s/p RUL lobectomy for adenocarcinoma 01/2024, patient described having intermittent neuropathic pain at that time. Left message for patient to discuss. Deann Marinelli to obtain [facility] ER notes. Normal [facility] CNOVon 06-10-2024 CNOV Office Visit (FAMPWS ) -- SHARONDA FLORES ([id number]) 1955 M U[place] Date Time Provider Department 06/10/24 7:00 AM FORTUNATO JURADO During your visit today, we recorded the following information about you: Fortunato Jurado APRN.CNP 06/11/2024 9:47 AM Addendum Chief Complaint Patient presents with: Follow Up: 3 month ER f/u Monday, minor chest pain, left arm pain, bad taste. Went to [facility] HPI Sharonda Flores is a 68 year old male who presents here today for Chronic Medical Conditions. Patient is here for 3-month follow-up. Taking medications as prescribed with the exception of Zetia. Not sure if he has it at home. Following with pulmonology/oncology for history of malignant neoplasm of the right upper lobe of the lung. Following with vascular at [facility] for PAD. Mentions that he went to the emergency room yesterday for right-sided chest pain. Went to [facility]. Troponin is negative. CMP,CBC normal. Chest x-ray normal. History of stents x 4. Was having a brief episode of right-sided nonpleuritic chest pain, lasted for a few seconds, felt sharp. Occurred at rest. Was concerned as he had been having random episodes of left shoulder, arm pain. Described as muscle pain as it hurts when that left arm is moved. Also had a funny taste in his mouth like acid also complaining of feeling weak in the legs when walking at times. This has been going on for a few weeks. Patient denied having any arm discomfort or chest pain when he was exerting himself/walking. He is calling his electrostatic powder coating technician today for follow up. Today, he is without chest pain or dizziness Past medical history, appointments, medications, allergies reviewed. EXAM: BP (P) 120/76 Pulse (P) 78 Resp (P) 16 Wt (P) 71.7 kg (158 lb) SpO2 (P) 98% BMI (P) 24.80 kg/m? General Appearance: Well appearing, alert, in no acute distress, well-hydrated, well nourished.. Lungs: Lungs clear to auscultation. No wheezing, rhonchi, rales.. Heart: RRR without murmur, gallop, or rubs. No ectopy. M/S: Mild to moderate left upper trapezius tenderness, radiating down the left scapular region. ASSESSMENT/PLAN: 1. Mixed hyperlipidemia - ICD9: 272.2, ICD10: E78.2 (primary diagnosis) - Control undetermined, due for labs - Continue current medications - Counseled on healthy diet and regular exercise - LIPID PANEL BASIC 2. Essential hypertension - ICD9: 401.9, ICD10: I10 - Controlled - Continue current medications - Recommend home blood pressure monitoring, to bring results to next visit - Encouraged sodium restriction, DASH or Mediterranean diet - Recommend regular aerobic exercise 3. PAD (peripheral artery disease) (HCC) - ICD9: 443.9, ICD10: I73.9 -Continue with plan to follow-up with [facility]. 4. Coronary artery disease involving chilkoot coronary artery of chilkoot heart without angina pectoris - ICD9: 414.01, ICD10: I25.10 -No current complaints of chest pain. He will make an appointment to follow-up with his electrostatic powder coating technician. I provided some reassurance that some of his symptoms were at rest. Exam seems to be more musculoskeletal origin. Discussed back to the ER for chest pain or syncope. Fortunato Jurado APRN.RNEEE RTO in 3 months, sooner if needed. This note was partly generated using [employer] voice recognition dictation and may contain some misspelled or inaccurate words missed on review. Fortunato Jurado APRN.CNP 06/10/2024 7:07 AM Signed [facility] Get cholesterol panel Call electrostatic powder coating technician to follow up Continue to follow with vascular medicine If you get chest pain or pass, you go back to the ER. See Dr. Tello is back in 3 months. Fortunato Jurado APRN.CNP Allergies As of Date: 06/10/2024 Noted Allergy Reaction PENICILLINS 05/23/2008 4 - Hives Date Reviewed: 06/10/2024 Reviewed by: Tosin Trevizo LPN - Fully Assessed Reason for Visit: Follow Up [171] Cmt: 3 month ER f/u Monday, minor chest pain, left arm pain, bad taste. Went to [facility] Primary Visit Diagnosis:Mixed hyperlipidemia [E78.2] Other Visit Diagnoses:Essential hypertension [I10] PAD (peripheral artery disease) (HCC) [I73.9] Coronary artery disease involving chilkoot coronary artery of chilkoot heart without angina pectoris [I25.10] Order(s):ezetimibe (ZETIA) 10 mg tabletTake 1 tablet by mouth once daily.Disp: 90 tabletRfl: 3 LIPID PANEL BASIC [SQLIPB] Order #: [id number] FUTURE Prescriptions as of 06/11/2024 - ezetimibe (ZETIA) 10 mg tablet Take 1 tablet by mouth once daily. - iv contrast (will be provided with radiology test) CT Chest W -Inject, intravenously, once for 1 dose.No IV access, insert saline lock prior to the beginning of sedation, infusion, injection of imaging exam. Discontinue saline lock post exam. If Pt. has a central line or IVAD, may access for administration according to line specific nursing protocol. Once exam is c (more content not included)... Normal [facility] Lipid 1996 panelon 4 Cholesterol [Mass/Vol] 257 mg/dL High <200 Cl [facility] Comment on above: Order Comment: Speci men Type: BLOOD SPECIMENOrdering Facility: [facility] Address: [address] [place] [address] Result Comment: <200 mg/dL, Desirable 200-239 mg/dL, Borderline high >239 mg/dL, High Performed By: #### 2 4331-1 ####[facility] LABIA [id number] [place] [address] [place] Cholesterol in HDL [Mass/Vol] 30 mg/dL Low >39 [facility] Comment on above: Order Comment: Speci men Type: BLOOD SPECIMENOrdering Facility: [facility] Address: [address] [place] [address] Result Comment: 40-5 9 mg/dL, Acceptable >59 mg/dL, High: Negative risk factor for coronary heart disease <40 mg/dL, Low: Positive risk factor for coronary heart disease Performed By: #### 2 4331-1 ####[facility] [id number] [place] [address] [place] Cholesterol in LDL [Mass/Vol] 184 mg/dL High <100 [facility] Comment on above: Order Comment: Speci men Type: BLOOD SPECIMENOrdering Facility: [facility] Address: [address] [place] [address] Result Comment: <100 mg/dL, Optimal 100-129 mg/dL, Near optimal/above optimal 130-159 mg/dL, Borderline high 160-189 mg/dL, High >189 mg/dL, Very high Secondary prevention optimal LDL Cholesterol levels are recommended to be < 70 mg/dL Performed By: #### 2 4331-1 ####[facility] LABCLIA [id number] [address] [place] Cholesterol in LDL/Cholesterol in HDL [Mass ratio] 6.13 {ratio} High <2.54 [facility] Comment on above: Order Comment: Speci men Type: BLOOD SPECIMENOrdering Facility: [facility] Address: [address] [place] [address] Result Comment: Lizbeth saraviace: 1. National Cholesterol Education Program ATP III Guideline At-A-Glance Quick Desk Reference: National Heart, Lung, and Blood Dolphin. National Institutes of Health. 2001: NIH Publication No. 01-3305. 2. An International Atherosclerosis Society position paper: global recommendations for the management of dyslipidemia: executive summary, Atherosclerosis. 2014: 232(2):410-413. Performed By: #### 2 4331-1 ####[facility] LABCLIA [id number] [place] [address] [place] Cholesterol in VLDL [Mass/Vol] 43 mg/dL High <30 [facility] Comment on above: Order Comment: Speci men Type: BLOOD SPECIMENOrdering Facility: [facility] Address: [address] [place] [address] Performed By: #### 2 4331-1 ####[facility] LABCLIA [id number] [place] [address] [place] Cholesterol non HDL [Mass/Vol] 227 mg/dL High <130 [facility] Comment on above: Order Comment: Speci men Type: BLOOD SPECIMENOrdering Facility: [facility] Address: [address] [place] [address] Result Comment: <130 mg/dL, Optimal 130-159 mg/dL, Near optimal/above optimal 160-189 mg/dL, Borderline high 190-219 mg/dL, High >219 mg/dL, Very high Secondary prevention optimal non HDL Cholesterol levels are recommended to be <100 mg/dL Performed By: #### 2 4331-1 ####[facility] LABCLIA [id number] [place] [address] [place] Cholesterol.total/Stephanie sterol in HDL [Mass ratio] 8.57 {ratio} High <5.10 [facility] Comment on above: Order Comment: Speci men Type: BLOOD SPECIMENOrdering Facility: [facility] Address: [address] [place] [address] Performed By: #### 2 4331-1 ####[facility] LABCLIA [id number] [address] STATES OF [facility] FASTING TIME [address] [facility] Comment on above: Order Comment: Speci men Type: BLOOD SPECIMENOrdering Facility: [facility] Address: [address] [place] [address] Performed By: #### 2 4331-1 ####[facility] LABCLIA [id number] [place] [address] [place] Triglyceride [Mass/Vol] 217 mg/dL High <150 [facility] Comment on above: Order Comment: Speci men Type: BLOOD SPECIMENOrdering Facility: [facility] Address: [address] [place] [address] Result Comment: <150 mg/dL, Normal 150-199 mg/dL, Borderline high 200-499 mg/dL, High >499 mg/dL, Very high Performed By: #### 2 4331-1 ####[facility] LABCLIA [id number] [address] [place] 36on 06-08-2024 36 S: Patient spoke wit h [facility] nurse regarding meds refill s and an appointment request. B: Onset of symptoms on and off for several months. BETH 01/21. A: L shoulder is aching and nausea, cold sweats, no chest pain, after walking his legs couldn't hold him up and after setting down for a few seconds everything comes back, sometimes gets a funny taste in the mouth, sometimes gets a headache. Sx's come and go and are getting worse. Needs Cavedilol 6.25 mg, Lisinopril 5 mg. Patient seen PCP the above sx's and referred to Cardiology to be seen. No current sx's, last had these sx's 4 days ago. Uses [facility] in [place]. R: Referred to the ER for eval. Patient would also like to be seen in the office for eval. Patient understands care advice. No further needs at this time. Patient instructed to call back with new or worsening symptoms. Reason for Disposition [1] Shoulder pains with exertion (e.g., walking) AND [2] pain goes away on resting AND [3] not present now Protocols used: Shoulder [id number] Normal [facility] XR Foot - right AP and Later al and obliqueon 03-11-2024 IMPRESSION: No acute radiographic abnormalities seen in the right foot. Security Business Analyst: BETTY Transcribe Date/Time: Mar 11 2024 8:51A Dictated by : JAIRO CARMONA MD This examination was interpreted and the report reviewed and electronically signed by: JAIRO CARMONA MD on Mar 11 2024 8:55AM [facility] DIVISION OF RADIOLOGY * * *Final Report* * * DATE OF EXAM: Mar 11 2024 8:40AM [id number] - XR FOOT 3V AP/LAT/OBL RT / PROCEDURE REASON: Pain of toe of right foot * * * * Physician Interpretation * * * * EXAM TITLE: XR FOOT 3V AP/LAT/OBL RT EXAM DATE/TIME: 03/11/2024 8:40 AM COMPARISON: None CLINICAL INDICATION/HISTORY: Right foot pain. TECHNIQUE: AP, lateral and oblique views of the right foot are presented. FINDINGS: No acute fractures or subluxations are noted. The joint spaces are well preserved. The mineralization of the bones is normal. There is no significant soft tissue swelling. DIVISION OF RADIOLOGY Provider, Candido mckeon Dolphin - 03/11/2024 * * *Final Report* * * DATE OF EXAM: Mar 11 2024 8:40AM [id number] - XR FOOT 3V AP/LAT/OBL RT / PROCEDURE REASON: Pain of toe of right foot * * * * Physician Interpretation * * * * EXAM TITLE: XR FOOT 3V AP/LAT/OBL RT EXAM DATE/TIME: 03/11/2024 8:40 AM COMPARISON: None CLINICAL INDICATION/HISTORY: Right foot pain. TECHNIQUE: AP, lateral and oblique views of the right foot are presented. FINDINGS: No acute fractures or subluxations are noted. The joint spaces are well preserved. The mineralization of the bones is normal. There is no significant soft tissue swelling. IMPRESSION IMPRESSION: No acute radiographic abnormalities seen in the right foot. Security Business Analyst: PSCB Transcribe Date/Time: Mar 11 2024 8:51A Dictated by : JAIRO CARMONA MD This examination was interpreted and the report reviewed and electronically signed by: JAIRO CARMONA MD on Mar 11 2024 8:55AM [facility] Radiology Study observation (narrative) Ramez almodovar [facility] XR Foot - right AP and Later al and obliqueOrdered By: [facility]-2024 [facility] SHARONDA FLORES ([id number]) 1955 [place] Date Time Provider Department 03/04/24 NADEGE TADEO During your visit today, we recorded the following information about you: Conrado Yao MA 03/04/2024 9:[address] Analy Dumont (Oncologist) office phone [phone] fax [phone] [facility] ([facility]) Faxed referral for right lung cancer, 02/29/24 office encounter, 02/09/24 operative report AND pathology on 03/04/24 Allergies As of Date: 03/04/2024 Noted Allergy Reaction PENICILLINS 05/23/2008 4 - Hives Date Reviewed: 02/29/2024 Reviewed by: Dorita Yoon LPN - Fully Assessed Reason for Visit: Referral Information [[id number]] Prescriptions as of 03/04/2024 - traMADol (ULTRAM) 50 mg tablet Take 1 tablet by mouth every 6 hours as needed for pain for up to 7 days. - atorvastatin (LIPITOR) 80 mg tablet Take 1 tablet by mouth daily at bedtime. For cholesterol. - ezetimibe (ZETIA) 10 mg tablet Take 1 tablet by mouth once daily. - nitroglycerin sublingual (NITROQUICK) 0.4 mg SL tablet Dissolve 1 tablet under the tongue every 5 minutes as needed. - Aspirin 81 mg Tab Take 81 mg by mouth once daily. - carvedilol (COREG) 6.25 mg tablet Take 6.25 mg by mouth two times a day with meals. - lisinopril (ZESTRIL) 5 mg tablet Take 5 mg by mouth once daily. Problem List As Of Date 03/04/2024 Noted Resolved PERS HX PENICILLIN ALLERGY [Z88.0] 06/03/2008 Class: Chronic TOBACCO USE DISORDER [F17.200] 06/03/2008 SPRAIN SHOULDER/ARM NOS [[id number]] 06/03/2008 JOINT PAIN-ANKLE [M25.579] 06/03/2008 HERPES SIMPLEX NOS [B00.9] 06/03/2008 MIXED HYPERLIPIDEMIA [E78.2] 07/02/2008 SCREENING MAL NEOP-COLON [Z12.11] 10/08/2008 BENIGN NEOPLASM LG BOWEL [D12.6] 10/08/2008 Coronary artery disease involving chilkoot lacey* Essential hypertension [I10] Thrombocytopenia (HCC) [D69.6] Tinnitus of both ears [H93.13] Psoriasis [L40.9] Abdominal aortic aneurysm (AAA) without rupture*06/08/2021 At risk for sleep apnea [Z91.89] 11/29/[address] lung nodules on CT [R91.8] 11/09/2023 Lung nodule [R91.1] 12/15/2023 S/P lobectomy of lung [Z90.2] 02/09/2024 Encounter Status:Closed by BISHNU YAO on 03/04/24 [facility] CNPN Telephone (AGVASACC) -- SHARONDA FLORES ([id number]) 1955 M [facility] Date Time Provider Department 03/04/24 CHARLENE AMAYA During your visit today, we recorded the following information about you: Charlene Amaya APRN.CNP 03/04/2024 9:14 AM Signed [facility] Phone Note Surgeon: Dr. Tadeo Surgery: S/p flexible bronchoscopy, right VATS, right upper lobe wedge resection to send for frozen, cryo nerve block, mediastinal lymph node dissection Date of the surgery: 02/09/24 Origin of the call: patient Date of the call: 03/03/24 Reason for call: Patient states that he has not been taking pain medication (tramadol) d/t pain had stopped. Stated that he is now having discomfort around the previous feeding tube and near thoracotomy incision. Describes pain as a constant discomfort. Denies any drainage, increase warmth or redness to the sites. States the regimen of tylenol and motrin is giving improvement, but not resolving. Contact information: [phone] How call resolved:Encouraged patient to continue regimen, add ice/heat to site and lidocaine patches. Required follow up: Patient to follow up on Monday with phone call on how pain doing. SIGNATURE: Charlene Amaya APRN.CNP DATE of SERVICE: 03/04/2024 TIME of SERVICE: 9:04 AM Allergies As of Date: 03/04/2024 Noted Allergy Reaction PENICILLINS 05/23/2008 4 - Hives Date Reviewed: 02/29/2024 Reviewed by: Dorita Yoon LPN - Fully Assessed Prescriptions as of 03/04/2024 - traMADol (ULTRAM) 50 mg tablet Take 1 tablet by mouth every 6 hours as needed for pain for up to 7 days. - atorvastatin (LIPITOR) 80 mg tablet Take 1 tablet by mouth daily at bedtime. For cholesterol. - ezetimibe (ZETIA) 10 mg tablet Take 1 tablet by mouth once daily. - nitroglycerin sublingual (NITROQUICK) 0.4 mg SL tablet Dissolve 1 tablet under the tongue every 5 minutes as needed. - Aspirin 81 mg Tab Take 81 mg by mouth once daily. - carvedilol (COREG) 6.25 mg tablet Take 6.25 mg by mouth two times a day with meals. - lisinopril (ZESTRIL) 5 mg tablet Take 5 mg by mouth once daily. Problem List As Of Date 03/04/2024 Noted Resolved PERS HX PENICILLIN ALLERGY [Z88.0] 06/03/2008 Class: Chronic TOBACCO USE DISORDER [F17.200] 06/03/2008 SPRAIN SHOULDER/ARM NOS [[id number]] 06/03/2008 JOINT PAIN-ANKLE [M25.579] 06/03/2008 HERPES SIMPLEX NOS [B00.9] 06/03/2008 MIXED HYPERLIPIDEMIA [E78.2] 07/02/2008 SCREENING MAL NEOP-COLON [Z12.11] 10/08/2008 BENIGN NEOPLASM LG BOWEL [D12.6] 10/08/2008 Coronary artery disease involving chilkoot lacey* Essential hypertension [I10] Thrombocytopenia (HCC) [D69.6] Tinnitus of both ears [H93.13] Psoriasis [L40.9] Abdominal aortic aneurysm (AAA) without rupture*06/08/2021 At risk for sleep apnea [Z91.89] 11/29/[address] lung nodules on CT [R91.8] 11/09/2023 Lung nodule [R91.1] 12/15/2023 S/P lobectomy of lung [Z90.2] 02/09/2024 Encounter Status:Closed by CHARLENE AMAYA on 03/04/24 [facility] CNOVon 02-29-2024 CNOV Office Visit (NORMA VITALE) -- SHARONDA FLORES ([id number]) 1955 M [facility] Date Time Provider Department 02/29/24 10:00 AM [facility] During your visit today, we recorded the following information about you: Pulse Respiration Blood pressure Weight 68/minute 16/minute 112/64 76.3 kg Height 1.651 m Shaylee Woods, PULLER OVER.DISASTER RECOVERY MANAGER 02/29/2024 12:56 PM Signed HPI: Per Dr. Tadeo (Mr. Flores is a 68 year old male with past medical history of coronary artery disease status post multiple stents in [address] Tineo, AAA, hypertension, history of smoking cigars, thrombocytopenia, psoriasis presenting to the office for evaluation of a right upper lobe lung nodule. This was identified on screening CT scan of the chest in July, and follow-up CT in October showed that the solid nodule in the right upper lobe lobe of the lung increased in size to 1 cm. PET/CT demonstrated avidity of the nodule with a max SUV of 4.1. Patient obtain PFTs, which are fairly normal, and he underwent bronchoscopy/EBUS and navigational bronchoscopy on 12/15/2023 showing negative mediastinum and nodule pathology showing normal lung tissue with some blood. Patient was referred for surgical lung resection for both diagnosis and treatment. He is a fairly active gentleman with no family history of lung cancer. Patient was scheduled for 02/09/24 flexible bronchoscopy, right VATS, right upper lobe wedge resection to send for frozen, cryo nerve block, mediastinal lymph node dissection. If frozen returns as malignancy complete right upper lobe lobectomy to be performed. 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 He therefore underwent right upper lobe lung resection surgery. He tolerated the procedure well. He was monitored in the ICU and transitioned to the regular nursing floor when stable. His chest tube was removed after his air leak resolved. His post chest tube removal X-Ray showed no pneumothorax and he was stable for discharge. He presents today on 2 week post hospital DC follow up. He has not had his CXR. Interval events: Presents with his brother. Pt had called into our office 02/21 stating having pain over the right side of chest/chest wall and right shoulder, has been taking oxy 5mg q4 hours and continues to have significant pain. States develops cold sweats when pain is at its worst. Was dc'd with oxycodone. Was Instructed to start tylenol 1000mg QID and start flexiril 10mg TID PRN for pain and continue to use oxy prn. Scripts sent to pharmacy Still with right surgical site pain sharp and shooting, worse with activity. Last few days it has been a little better, so he backed off on oxycodone, but did require oxycodone last night. Has taken flexeril twice with good relief. He has not been taking tylenol, thought at one point in his life he was told not to take it so he hesitated. Denies any liver d/o history, hepatitis. LFTs WNL in early January. Feels side effects of oxycodone are hot/cold sweat, difficulty dreams but tolerable, inquires about alternative Sharonda Flores reports home recovery as listed below: Episodes of dizziness or syncope: no Chest pain: no Palpitations: no BP: reviewed per home log: NA Tolerating diet well without changing bowel habits: poor appetite, no n/v/d. Last BM was yesterday Fever, chills: no Activities at home with/without SOB or BARBER: walks around mobile home twice several times daily without SOB or cough Post surgical pain with pain medications - as above. Leg edema: no Sleep: impaired 2/2 pain Energy: fair Subjective: Current Outpatient Medications Medication Sig cyclobenzaprine (FLEXERIL) 10 mg tablet Take 1 tablet by mouth three times a day as needed for muscle spasm or pain for up to 10 days. oxyCODONE IR (ROXICODONE) 5 mg immediate release tablet Take 1 tablet by mouth every 6 hours as needed for pain for up to 7 days. atorvastatin (LIPITOR) 80 mg tablet Take 1 tablet by mouth daily at bedtime. For cholesterol. ezetimibe (ZETIA) 10 mg tablet Take 1 tablet by mouth once daily. nitroglycerin sublingual (NITROQUICK) 0.4 mg SL tablet Dissolve 1 tablet under the tongue every 5 minutes as needed. Aspirin 81 mg Tab Take 81 mg by mouth once daily. carvedilol (COREG) 6.25 mg tablet Take 6.25 mg by mouth two times a day with meals. lisinopril (ZESTRIL) 5 mg tablet Take 5 mg by mouth once daily. No current facility-administered medications for this visit. Penicillins PAST MEDICAL HISTORY No date: Abdominal aortic aneurysm (AAA) without rupture (HCC) Comment: 3 x 3.1 cm 05/2021, repeat 1 year. No date: Benign neoplasm of colon No date: Coronary artery disease involving chilkoot coronary artery of chilkoot heart without angina pectoris Comment: Dr. Tineo No date: Essential hypertension No date: History of tobacco use (more content not included)... Normal [facility] XR CHEST 1V FRONTAL PORTon 0 02-29-2024 XR CHEST 1V FRONTAL PORT * * *Final Report* * * DATE OF EXAM: Feb 29 2024 11:14AM [id number] - XR CHEST 1V FRONTAL PORT / PROCEDURE REASON: S/P lobectomy of lung * * * * Physician Interpretation * * * * EXAMINATION: CHEST RADIOGRAPH (PORTABLE SINGLE VIEW AP) Exam Date/Time: 02/29/2024 11:14 AM CLINICAL HISTORY: Lung surgery. MQ: XCPR_5 Comparison: 02/14/2024. RESULT: Lines, tubes, and devices: None. Lungs and pleura: There are vague infiltrate/atelectatic changes in the right lung base and a small right pleural effusion. The findings are compatible with intervening right lung surgery. Cardiomediastinal silhouette: Stable cardiomediastinal silhouette. Other: The visualized bony thorax appears unremarkable. IMPRESSION: Postsurgical changes involving the right hemithorax. A follow-up exam is recommended. Security Business Analyst: PSCB Transcribe Date/Time: Mar 03 2024 8:39A Dictated by : LAINE STILL MD This examination was interpreted and the report reviewed and electronically signed by: LAINE STILL MD on Mar 03 2024 8:40AM EST [id number] Normal [facility] CNPNon 02-22-2024 CNPN Telephone (AGVASPocket Concierge) -- SHARONDA FLORES ([id number]) 1955 M [facility] Date Time Provider Department 02/22/24 NADEGE TADEO During your visit today, we recorded the following information about you: Stoney Talavera LPN 02/22/2024 10:19 AM Signed Patient calling in and left message that he needs to speak to Dr. Tadeo's Nurse. This Nurse returned call. Patient states after surgery morphine wore off and was taking the prescribed oxycodone but he couldn't get out of bed once he started medication. Patient states he had to call [facility] who ran tests and he checked-out fine. Patient states he is experiencing right-sided pain of his chest. He was provided refills of oxycodone by [facility] however the pain is starting to feel like it did before. Patient states it feels like a fire cracker. Stoney Talavera LPN February 22, 2024 10:18 AM Stoney Talavera LPN 02/26/2024 7:30 AM Signed See Telephone Encounter from Dr. Francois's PIG MACHINE SUPERVISOR, 02/22/2024 10:36AM. Stoney Talavera LPN February 26, 2024 7:30 AM Allergies As of Date: 02/22/2024 Noted Allergy Reaction PENICILLINS 05/23/2008 4 - Hives Date Reviewed: 02/10/2024 Reviewed by: Enrique Black, COLEEN - Fully Assessed Reason for Visit: Patient Update [1234] Cmt: Pain medication Prescriptions as of 02/26/2024 - cyclobenzaprine (FLEXERIL) 10 mg tablet Take 1 tablet by mouth three times a day as needed for muscle spasm or pain for up to 10 days. - oxyCODONE IR (ROXICODONE) 5 mg immediate release tablet Take 1 tablet by mouth every 6 hours as needed for pain for up to 7 days. - atorvastatin (LIPITOR) 80 mg tablet Take 1 tablet by mouth daily at bedtime. For cholesterol. - ezetimibe (ZETIA) 10 mg tablet Take 1 tablet by mouth once daily. - nitroglycerin sublingual (NITROQUICK) 0.4 mg SL tablet Dissolve 1 tablet under the tongue every 5 minutes as needed. - Aspirin 81 mg Tab Take 81 mg by mouth once daily. - carvedilol (COREG) 6.25 mg tablet Take 6.25 mg by mouth two times a day with meals. - lisinopril (ZESTRIL) 5 mg tablet Take 5 mg by mouth once daily. Problem List As Of Date 02/22/2024 Noted Resolved PERS HX PENICILLIN ALLERGY [Z88.0] 06/03/2008 Class: Chronic TOBACCO USE DISORDER [F17.200] 06/03/2008 SPRAIN SHOULDER/ARM NOS [[id number]] 06/03/2008 JOINT PAIN-ANKLE [M25.579] 06/03/2008 HERPES SIMPLEX NOS [B00.9] 06/03/2008 MIXED HYPERLIPIDEMIA [E78.2] 07/02/2008 SCREENING MAL NEOP-COLON [Z12.11] 10/08/2008 BENIGN NEOPLASM LG BOWEL [D12.6] 10/08/2008 Coronary artery disease involving chilkoot lacey* Essential hypertension [I10] Thrombocytopenia (HCC) [D69.6] Tinnitus of both ears [H93.13] Psoriasis [L40.9] Abdominal aortic aneurysm (AAA) without rupture*06/08/2021 At risk for sleep apnea [Z91.89] 11/29/[address] nodules on CT [R91.8] 11/09/2023 Lung nodule [R91.1] 12/15/2023 S/P lobectomy of lung [Z90.2] 02/09/2024 Encounter Status:Closed by STONEY TALAVERA on 02/26/24 [facility] CNPN Telephone (AGVASACC) -- SHARONDA FLORES ([id number]) 1955 M [place] Date Time Provider Department 02/22/24 NADEGE TADEO During your visit today, we recorded the following information about you: Conrado Yao MA 02/22/2024 9:33 AM Signed Mr. Quijano left voicemail 02/22/24 8:29am stating he is pain and having cold sweats because of pain. He also said if he didn't hear back from our office soon, he was going to urgent care. I tried calling him at 02/22/24 9:27am twice ([phone]), it seems like someone answers but no one speaks. 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 Charlene Amaya APRN.DISASTER RECOVERY MANAGER 02/22/2024 10:36 AM Signed [facility] Phone Note Surgeon: Dr. Tadeo Surgery: Right Upper lobe Lung resection via right thoracotomy Date of the surgery: 02/09/24 Origin of the call: patient Date of the call: 02/22/24 Reason for call: States having pain over the right side of chest/chest wall and right shoulder, has been taking oxy 5mg q4 hours and continues to have significant pain. States develops cold sweats when pain is at its worst. Was dc'd with oxycodone. Contact information: [phone] How call resolved: Instructed to start tylenol 1000mg QID and start flexiril 10mg TID PRN for pain and continue to use oxy prn. Scripts sent to pharmacy Required follow up: Has f/u on 02/28 SIGNATURE: Charlene Amaya APRN.DISASTER RECOVERY MANAGER DATE of SERVICE: 02/22/2024 TIME of SERVICE: 10:15 AM Allergies As of Date: 02/22/2024 Noted Allergy Reaction PENICILLINS 05/23/2008 4 - Hives Date Reviewed: 02/10/2024 Reviewed by: Enrique Black RN - Fully Assessed Primary Visit Diagnosis:Acute post-operative pain [G89.18] Other Visit Diagnoses:History of thoracotomy [Z98.890] Right upper lobe pulmonary nodule [R91.1] Order(s):acetaminophen (TYLENOL) 500 mg tabletTake 2 tablets by mouth one time only for 1 dose. Please take morning of surgery.Disp: Rfl: cyclobenzaprine (FLEXERIL) 10 mg tabletTake 1 tablet by mouth three times a day as needed for muscle spasm or pain for up to 10 days.Disp: 30 tabletRfl: 0 oxyCODONE IR (ROXICODONE) 5 mg immediate release tabletTake 1 tablet by mouth every 6 hours as needed for pain for up to 7 days.Disp: 28 tabletRfl: 0 Prescriptions as of 02/22/2024 - acetaminophen (TYLENOL) 500 mg tablet Take 2 tablets by mouth one time only for 1 dose. Please take morning of surgery. - cyclobenzaprine (FLEXERIL) 10 mg tablet Take 1 tablet by mouth three times a day as needed for muscle spasm or pain for up to 10 days. - oxyCODONE IR (ROXICODONE) 5 mg immediate release tablet Take 1 tablet by mouth every 6 hours as needed for pain for up to 7 days. - atorvastatin (LIPITOR) 80 mg tablet Take 1 tablet by mouth daily at bedtime. For cholesterol. - ezetimibe (ZETIA) 10 mg tablet Take 1 tablet by mouth once daily. - nitroglycerin sublingual (NITROQUICK) 0.4 mg SL tablet Dissolve 1 tablet under the tongue every 5 minutes as needed. - Aspirin 81 mg Tab Take 81 mg by mouth once daily. - carvedilol (COREG) 6.25 mg tablet Take 6.25 mg by mouth two times a day with meals. - lisinopril (ZESTRIL) 5 mg tablet Take 5 mg by mouth once daily. Problem List As Of Date 02/22/2024 Noted Resolved PERS HX PENICILLIN ALLERGY [Z88.0] 06/03/2008 Class: Chronic TOBACCO USE DISORDER [F17.200] 06/03/2008 SPRAIN SHOULDER/ARM NOS [[id number]] 06/03/2008 JOINT PAIN-ANKLE [M25.579] 06/03/2008 HERPES SIMPLEX NOS [B00.9] 06/03/2008 MIXED HYPERLIPIDEMIA [E78.2] 07/02/2008 SCREENING MAL NEOP-COLON [Z12.11] 10/08/2008 BENIGN NEOPLASM LG BOWEL [D12.6] 10/08/2008 Coronary artery disease involving chilkoot lacey* Essential hypertension [I10] Thrombocytopenia (HCC) [D69.6] Tinnitus of both ears [H93.13] Psoriasis [L40.9] Abdominal aortic aneurysm (AAA) without rupture*06/08/2021 At risk for sleep apnea [Z91.89] 11/29/[address] nodules on CT [R91.8] 11/09/2023 Lung nodule [R91.1] 12/15/2023 S/P lobectomy of lung [Z90.2] 02/09/2024 Prescriptions ordered this encounter Disp Refills Start End ACETAMINOPHEN 500 MG TABLET 02/22/2024 02/22/2024 Class: OTC Route: ORAL Sig: Take 2 tablets by mouth one time only for 1 dose. Please take morning of surgery. CYCLOBENZAPRINE 10 MG TABLET 30 t* 0 02/22/2024 03/03/2024 Route: ORAL Sig: Take 1 tablet by mouth three times a day as needed for muscle spasm or pain for up to 10 days. OXYCODONE 5 MG TABLET 28 t* 0 02/22/2024 02/29/2024 Route: ORAL Sig: Take 1 tablet by mouth every 6 hours as needed for pain for up to 7 days. Encounter Status:Closed by CHARLENE AMAYA on 02/22/24 [facility] CNDSon 02-14-2024 [facility] HNO ID: [id number] Author: NADEGE TADEO MD Service: General Surgery Author Type: Physician Type: Discharge Summary Filed: 03/09/2024 11:04 Note Text: DISCHARGE SUMMARY PATIENT NAME: Sharonda Flores Code Status: Not on file Highest Readmission Risk Score: 10 The 30 day readmissions risk score is derived from an internally validated risk model which evaluates patient level characteristics, utilization history, medication orders and lab results up until the day of discharge. Patients with a score of 40 or above are considered highest risk for readmission. Specific patient level drivers will be listed at the bottom of the summary. Admission Information Admission Information ADMIT DATE: 02/09/2024 DISCHARGE DATE: 02/14/2024 MY DOCTORS AND MEDICAL TEAM: My Main Hospital Doctor: Nadege Tadeo MD Primary Care Provider: Tima Tello MD My Medical Team Members: Treatment Team: Attending Provider: Nadege Tadeo MD MY CONDITION AT DISCHARGE: Stable REASON I WAS IN THE HOSPITAL: Video-assisted Thoracoscopic Right upper lobe Resection SUMMARY OF WHAT HAPPENED WHILE I WAS IN THE HOSPITAL: Patient was admitted to the hospital following his elective lung resection surgery. He tolerated the procedure well. He was monitored in the ICU and transitioned to the regular nursing floor when stable. His chest tube was removed after his air leak resolved. His post chest tube removal X-Ray showed no pneumothorax and he was stable for discharge. OTHER PROBLEMS/DIAGNOSIS: Principal Problem: S/P lobectomy of lung Resolved Problems: * No resolved hospital problems. * OPERATIONS PERFORMED WHILE IN THE HOSPITAL: Right Upper lobe Lung resection IMPORTANT TEST/PROCEDURES: No procedures performed TEST RESULTS NOT AVAILABLE AT THIS TIME: No pending results Discharge Disposition Discharge Disposition: Home With Self Care Activity When You Leave the Hospital Other: May shower. No bathing or soaking in water for prolonged periods of time. No lifting of heavy weights for 2-3 weeks. Diet Instructions Resume your pre-hospital diet For Pain When You Leave the Hospital If you become constipated, you may use any llbp-xbq-xzcdxyl treatment such as Milk of Magnesia, Sennakot, Prune Juice, Suppositories, etc. in addition to the stool softener/fiber supplement Use acetaminophen (Tylenol) as recommended on the bottle You should use an ubvn-xdd-yollbjs stool softener (Docusate sodium) and/or a fiber supplement (Metamucil, Fiber Con) every day while taking prescribed pain medication Wound/Surgical Site Care It is normal to have swelling, mild bruising, blood on the steri-strips, numbness and firmness around the incision Some bleeding from the wound/surgical site can be expected. If excessive, see a doctor at once Some bleeding from the wound/surgical site can be expected. If you soak a gauze bandage in one hour, see a doctor at once Some bleeding from the wound/surgical site can be expected. If you soak a sanitary pad in one hour, see a doctor at once Wash your hands frequently, especially before touching your incision, after using restroom and before eating Your incision has skin glue. It will peel off on its own. It can get wet Call Your Doctor If There is an unusual odor from the wound area There is severe pain at the operative site You have a severe headache You have lightheadedness, fainting, or confusion You have persistent nausea/vomiting over 24 hours You have persistent or heavy bleeding You have redness, swelling, pus or drainage from the wound You have swollen glands or cold and clammy skin Your temperature is greater than 101F Follow Up Appointments Follow-Up Appointment When: In 2 weeks Nadege Tadeo MD [phone] [facility] [address] PCP Requested Referral Additional Provider to Provider Information: No notes on file Treatment Team: Attending Provider: Nadege Tadeo MD Transitions of Care Critical Issues: None LABS AND PROCEDURES PENDING AT DISCHARGE: No pending results. FOLLOW-UP APPOINTMENTS ALREADY SCHEDULED WITH A [facility] PROVIDER: Future Appointments Date Time Provider Department Center 03/11/2024 7:00 AM Tima Tello MD [facility] [place] ALLERGIES Allergen Reactions Penicillins Hives DISCHARGE MEDICATION: Medication List CONTINUE taking these medications Aspirin 81 mg Tab atorvastatin 80 mg tablet Commonly known as: LIPITOR Take 1 tablet by mouth daily at bedtime. For cholesterol. carvedilol 6.25 mg tablet Commonly known as: COREG ezetimibe 10 mg tablet Commonly known as: ZETIA Take 1 tablet by mouth once daily. lisinopril 5 mg tablet Commonly known as: ZESTRIL nitroglycerin sublingual 0.4 mg SL tablet Commonly known as: NITROQUICK Dissolve 1 tablet under the tongue every 5 minutes as needed. PHYSICAL EXAM: GENERAL: resting com (more content not included)... Normal [facility] XR CHEST 1V FRONTALon 2023 XR CHEST 1V FRONTAL * * *Final Report* * * DATE OF EXAM: Feb 14 2024 4:52AM AKX 5290 - XR CHEST 1V FRONTAL / PROCEDURE REASON: Post-operative/post-proced ure assessment * * * * Physician Interpretation * * * * EXAMINATION: CHEST RADIOGRAPH (SINGLE VIEW AP OR PA) CLINICAL HISTORY: Post-operative/post-proced ure assessment MQ: XC1_5 Comparison: 02/13/2024 RESULT: Lines, tubes, and devices: None. Lungs and pleura: Mild increased density noted medial right upper lung. Lungs are otherwise clear. Cardiomediastinal silhouette: Normal cardiomediastinal silhouette. Other: No significant additional findings. IMPRESSION: Stable postoperative findings. Security Business Analyst: [employer] Transcribe Date/Time: Feb 14 2024 6:36A Dictated by : FREDI VALLE MD This examination was interpreted and the report reviewed and electronically signed by: FREDI VALLE MD on Feb 14 2024 6:39AM EST [id number] Normal [facility] XR CHEST 1V FRONTALon 2023 XR CHEST 1V FRONTAL * * *Final Report* * * DATE OF EXAM: Feb 13 2024 4:22PM AKX 5290 - XR CHEST 1V FRONTAL / PROCEDURE REASON: Post-operative/post-proced ure assessment * * * * Physician Interpretation * * * * EXAMINATION: CHEST RADIOGRAPH (SINGLE VIEW AP OR PA) CLINICAL HISTORY: Post-operative/post-proced ure assessment, Pneumothorax MQ: XC1_5 Comparison: 02/13/2024 RESULT: Lines, tubes, and devices: The right chest tube has been removed. Lungs and pleura: No consolidation. No lung mass. No pleural effusion. No visible pneumothorax. Cardiomediastinal silhouette: Stable widening of the right paratracheal stripe. Other: . IMPRESSION: Recently removed right chest tube. Otherwise, stable appearance. Security Business Analyst: [facility] Transcribe Date/Time: Feb 14 2024 6:55A Dictated by : ОЛЬГА BARR MD This examination was interpreted and the report reviewed and electronically signed by: ОЛЬГА BARR MD on Feb 14 2024 6:57AM EST [id number] Normal [facility] XR CHEST 1V FRONTAL * * *Final Report* * * DATE OF EXAM: Feb 13 2024 5:08AM AKX 5290 - XR CHEST 1V FRONTAL / PROCEDURE REASON: Post-operative/post-proced ure assessment * * * * Physician Interpretation * * * * EXAMINATION: CHEST RADIOGRAPH (SINGLE VIEW AP OR PA) CLINICAL HISTORY: Post-operative/post-proced ure assessment MQ: XC1_5 Comparison: Daily prior chest radiographs. RESULT: Lines, tubes, and devices: A right-sided chest tube appears in unaltered position. Lungs and pleura: 6 mm nodular density in profile with the right anterior second rib. No consolidation. No visible pneumothorax or large pleural effusion. Cardiomediastinal silhouette: Stable cardiomediastinal silhouette with right hilar opacity, presumed postoperative.. Other: None. IMPRESSION: 6 mm nodular density in profile with the right anterior second rib. Right hilar opacity, presumed postoperative. Correlate with subsequent chest radiographs. Security Business Analyst: [facility] Transcribe Date/Time: Feb 13 2024 6:55A Dictated by : ELIJAH GONSALEZ MD This examination was interpreted and the report reviewed and electronically signed by: ELIJAH GONSALEZ MD on Feb 13 2024 7:01AM EST [id number] Normal [facility] XR CHEST 1V FRONTALon 2023 XR CHEST 1V FRONTAL * * *Final Report* * * DATE OF EXAM: Feb 12 2024 5:09AM AKX 5290 - XR CHEST 1V FRONTAL / PROCEDURE REASON: Post-operative/post-proced ure assessment * * * * Physician Interpretation * * * * EXAMINATION: CHEST RADIOGRAPH (SINGLE VIEW AP OR PA) CLINICAL HISTORY: Post-operative/post-proced ure assessment MQ: XC1_5 Comparison: 06/13/2024 RESULT: Lines, tubes, and devices: Stable position of the right chest tube. Lungs and pleura: No consolidation. No lung mass. No pleural effusion. No visible pneumothorax. Cardiomediastinal silhouette: Normal cardiomediastinal silhouette. IMPRESSION: No acute radiographic abnormality. Security Business Analyst: [facility] Transcribe Date/Time: Feb 12 2024 10:54A Dictated by : LAZARO PRABHAKAR MD This examination was interpreted and the report reviewed and electronically signed by: LAZARO PRABHAKAR MD on Feb 12 2024 11:02AM EST [id number] Normal [facility] XR CHEST 1V FRONTALon 2023 XR CHEST 1V FRONTAL * * *Final Report* * * DATE OF EXAM: Feb 11 2024 4:35AM AKX 5290 - XR CHEST 1V FRONTAL / PROCEDURE REASON: Post-operative/post-proced ure assessment * * * * Physician Interpretation * * * * EXAMINATION: CHEST RADIOGRAPH (SINGLE VIEW AP OR PA) CLINICAL HISTORY: Post-operative/post-proced ure assessment MQ: XC1_5 Comparison: Chest radiographs 02/10/2024 and 02/09/[address] chest 12/13/2023. RESULT: Lines, tubes, and devices: Unaltered position of right-sided chest tube. Overlying cardiac monitoring leads. Lungs and pleura: No consolidation. No measurable pneumothorax. No large pleural effusion. Cardiomediastinal silhouette: Stable cardiomediastinal silhouette. Other: None. IMPRESSION: No acute radiographic abnormality. Security Business Analyst: [facility]TY Transcribe Date/Time: Feb 11 2024 6:57A Dictated by : ELIJAH GONSALEZ MD This examination was interpreted and the report reviewed and electronically signed by: ELIJAH GONSALEZ MD on Feb 11 2024 6:59AM EST [id number] Normal [facility] Basic metabolic 2000 panelon 02-10-2024 Anion gap [Moles/Vol] 10 mmol/L Normal 8-15 [facility] Comment on above: Order Comment: Speci men Type: BLOOD SPECIMENOrdering Facility: [facility] Address: [address] [place] [address] Performed By: #### 2 4321-2 ####[facility][1] LABORATORYCLIA [id number] [place] [address] [place] Calcium [Mass/Vol] 7.5 mg/dL Low 8.5-10.2 [facility] Comment on above: Order Comment: Speci men Type: BLOOD SPECIMENOrdering Facility: [facility] Address: [address] [place] [address] Performed By: #### 2 4321-2 ####[facility][1] LABORATORYCLIA [id number] [place] [address] [place] Chloride [Moles/Vol] 103 mmol/L Normal 98-107 [facility] Comment on above: Order Comment: Speci men Type: BLOOD SPECIMENOrdering Facility: [facility] Address: [address] [place] [address] Performed By: #### 2 4321-2 ####[facility][1] LABORATORYCLIA [id number] [place] [address] [place] CO2 [Moles/Vol] 25 mmol/L Normal 22-30 [facility] Comment on above: Order Comment: Speci men Type: BLOOD SPECIMENOrdering Facility: [facility] Address: [address] [place] [address] Performed By: #### 2 4321-2 ####[facility] [id number] [address] STATES OF [facility] Creatinine [Mass/Vol] 1.01 mg/dL Normal 0.73-1.22 [facility] Comment on above: Order Comment: [place] Type: BLOOD SPECIMENOrdering Facility: [facility] Address: [address] [place] [address] Performed By: #### 2 4321-2 ####[facility][1] LABORATORYCLIA [id number] [address] Creatinine and Glomerular filtration rate.predicted panel (S/P/Bld) 81 mL/min/1.73m??? Normal >=60 [facility] Comment on above: Order Comment: [place] Type: BLOOD SPECIMENOrdering Facility: [facility] Address: [address] [place] [address] Result Comment: Piedad mated Glomerular Filtration Rate (eGFR) is calculated using the 2020 CKD-EPI creatinine equation. This equation utilizes serum creatinine, sex, and age as parameters. The creatinine assay has traceable calibration to isotope dilution-mass spectrometry. Refer to KDIGO guidelines for clinical interpretation. In patients with unstable renal function, e.g. those with acute kidney injury, the eGFR may not accurately reflect actual GFR. Performed By: #### 2 4321-2 ####[facility][1] LABORATORYCLIA [id number] [address] [place] Glucose [Mass/Vol] 114 mg/dL High 74-99 [facility] Comment on above: Order Comment: [place] Type: BLOOD SPECIMENOrdering Facility: [facility] Address: [address] [place] [address] Result Comment: The [place] Diabetes Association (ADA) provides guidance for cutoff values for fasting glucose and random glucose. The ADA defines fasting as no caloric intake for at least 8 hours. Fasting plasma glucose results between 100 to 125 mg/dL indicate increased risk for diabetes (prediabetes). Fasting plasma glucose results greater than or equal to 126 mg/dL meet the criteria for diagnosis of diabetes. In the absence of unequivocal hyperglycemia, results should be confirmed by repeat testing. In a patient with classic symptoms of hyperglycemia or hyperglycemic crisis, random plasma glucose results greater than or equal to 200 mg/dL meet the criteria for diagnosis of diabetes. Reference: Standards of Medical Care in Diabetes 2016, [place] [employer]. Diabetes Care. 2016.39(Suppl 1). Performed By: #### 2 4321-2 ####[facility][1] LABORATORYCLIA [id number] [address] STATES OF [facility] Potassium [Moles/Vol] 3.7 mmol/L Normal 3.7-5.1 [facility] Comment on above: Order Comment: Speci men Type: BLOOD SPECIMENOrdering Facility: [facility] Address: [address] [place] [address] Performed By: #### 2 4321-2 ####[facility][1] LABORATORYCLIA [id number] [address] [place] Sodium [Moles/Vol] 138 mmol/L Normal 136-144 [facility] Comment on above: Order Comment: Speci asher Type: BLOOD SPECIMENOrdering Facility: [facility] Address: [address] [place] [address] Performed By: #### 2 4321-2 ####[facility][1] LABORATORYCLIA [id number] [address] [place] Urea nitrogen [Mass/Vol] 18 mg/dL Normal 9-24 [facility] Comment on above: Order Comment: Speci men Type: BLOOD SPECIMENOrdering Facility: [facility] Address: [address] [place] [address] Performed By: #### 2 4321-2 ####[facility][1] LABORATORYCLIA [id number] [place] [address] [place] Anion gap [Moles/Vol] 12 mmol/L Normal 8-15 [facility] Comment on above: Order Comment: Speci men Type: BLOOD SPECIMENOrdering Facility: [facility] Address: [address] [place] [address] Performed By: #### 2 4321-2 ####[facility][1] LABORATORYCLIA [id number] [place] [address] [place] Calcium [Mass/Vol] 8.6 mg/dL Normal 8.5-10.2 [facility] Comment on above: Order Comment: Speci men Type: BLOOD SPECIMENOrdering Facility: [facility] Address: [address] [place] [address] Performed By: #### 2 4321-2 ####[facility][1] LABORATORYCLIA [id number] [place] [address] [place] Chloride [Moles/Vol] 104 mmol/L Normal 98-107 [facility] Comment on above: Order Comment: Speci men Type: BLOOD SPECIMENOrdering Facility: [facility] Address: [address] [place] [address] Performed By: #### 2 4321-2 ####[facility][1] LABORATORYCLIA [id number] [address] STATES OF [facility] CO2 [Moles/Vol] 23 mmol/L Normal 22-30 [facility] Comment on above: Order Comment: Speci men Type: BLOOD SPECIMENOrdering Facility: [facility] Address: [address] [place] [address] Performed By: #### 2 4321-2 ####[facility][1] LABORATORYCLIA [id number] [address] [place] Creatinine [Mass/Vol] 0.86 mg/dL Normal 0.73-1.22 [facility] Comment on above: Order Comment: Speci men Type: BLOOD SPECIMENOrdering Facility: [facility] Address: [address] [place] [address] Performed By: #### 2 4321-2 ####[facility][1] LABORATORYCLIA [id number] [address] Creatinine and Glomerular filtration rate.predicted panel (S/P/Bld) 94 mL/min/1.73m??? Normal >=60 [facility] Comment on above: Order Comment: Speci men Type: BLOOD SPECIMENOrdering Facility: [facility] Address: [address] [place] [address] Result Comment: Piedad mated Glomerular Filtration Rate (eGFR) is calculated using the 2020 CKD-EPI creatinine equation. This equation utilizes serum creatinine, sex, and age as parameters. The creatinine assay has traceable calibration to isotope dilution-mass spectrometry. Refer to KDIGO guidelines for clinical interpretation. In patients with unstable renal function, e.g. those with acute kidney injury, the eGFR may not accurately reflect actual GFR. Performed By: #### 2 4321-2 ####[facility][1] LABORATORYCLIA [id number] [place] [address] [place] Glucose [Mass/Vol] 136 mg/dL High 74-99 [facility] Comment on above: Order Comment: [place] Type: BLOOD SPECIMENOrdering Facility: [facility] Address: [address] [place] [address] Result Comment: The [place] Diabetes Association (ADA) provides guidance for cutoff values for fasting glucose and random glucose. The ADA defines fasting as no caloric intake for at least 8 hours. Fasting plasma glucose results between 100 to 125 mg/dL indicate increased risk for diabetes (prediabetes). Fasting plasma glucose results greater than or equal to 126 mg/dL meet the criteria for diagnosis of diabetes. In the absence of unequivocal hyperglycemia, results should be confirmed by repeat testing. In a patient with classic symptoms of hyperglycemia or hyperglycemic crisis, random plasma glucose results greater than or equal to 200 mg/dL meet the criteria for diagnosis of diabetes. Reference: Standards of Medical Care in Diabetes 2016, [place] [employer]. Diabetes Care. 2016.39(Suppl 1). Performed By: #### 2 4321-2 ####[facility][1] LABORATORYCLIA [id number] [place] [address] [place] Potassium [Moles/Vol] 4.4 mmol/L Normal 3.7-5.1 [facility] Comment on above: Order Comment: [place] [facility] Type: BLOOD SPECIMENOrdering Facility: [facility] Address: [address] [place] [id number] Performed By: #### 2 4321-2 ####[facility][1] LABORATORYCLIA [id number] [address] STATES OF [facility] Sodium [Moles/Vol] 139 mmol/L Normal 136-144 [facility] Comment on above: Order Comment: Speci men Type: BLOOD SPECIMENOrdering Facility: [facility] Address: [address] [place] [address] Performed By: #### 2 4321-2 ####[facility][1] LABORATORYCLIA [id number] [address] [place] Urea nitrogen [Mass/Vol] 18 mg/dL Normal 9-24 [facility] Comment on above: Order Comment: Speci men Type: BLOOD SPECIMENOrdering Facility: [facility] Address: [address] [place] [address] Performed By: #### 2 4321-2 ####[facility][1] LABORATORYCLIA [id number] [address] [place] CBC panel Auto (Bld)on 02-09 Erythrocyte distribution width (RBC) [Ratio] 12.9 % Normal 11.5-15.0 [facility] Comment on above: Order Comment: Speci men Type: BLOOD SPECIMENOrdering Facility: [facility] Address: [address] [place] [address] Performed By: #### 5 8410-2 ####[facility][1] LABORATORYCLIA [id number] [address] STATES OF [facility] Hematocrit (Bld) [Volume fraction] 38.8 % Low 39.0-51.0 [facility] Comment on above: Order Comment: Speci men Type: BLOOD SPECIMENOrdering Facility: [facility] Address: [address] [place] [address] Performed By: #### 5 8410-2 ####[facility][1] LABORATORYCLIA [id number] [address] [place] Hemoglobin (Bld) [Mass/Vol] 12.3 g/dL Low 13.0-17.0 [facility] Comment on above: Order Comment: Speci men Type: BLOOD SPECIMENOrdering Facility: [facility] Address: [address] [place], [place] [address] Performed By: #### 5 8410-2 ####[facility][1] LABORATORYCLIA [id number] [address] MCH (RBC) [Entitic mass] 29.3 pg Normal 26.0-34.0 [facility] Comment on above: Order Comment: Speci men Type: BLOOD SPECIMENOrdering Facility: [facility] Address: [address] [place] [address] Performed By: #### 5 8410-2 ####[facility][1] LABORATORYCLIA [id number] [address] OF [facility] MCHC (RBC) [Mass/Vol] 31.7 g/dL Normal 30.5-36.0 [facility] Comment on above: Order Comment: Speci men Type: BLOOD SPECIMENOrdering Facility: [facility] Address: [address] [place] [address] Performed By: #### 5 8410-2 ####[facility][1] LABORATORYCLIA [id number] [address] MCV (RBC) [Entitic vol] 92.4 fL Normal 80.0-100.0 [facility] Comment on above: Order Comment: Speci men Type: BLOOD SPECIMENOrdering Facility: [facility] Address: [address] [place] [address] Performed By: #### 5 8410-2 ####[facility][1] LABORATORYCLIA [id number] [address] Nucleated RBC (Bld) [#/Vol] 10*3/uL Normal <0.01 [facility] Comment on above: Order Comment: Speci men Type: BLOOD SPECIMENOrdering Facility: [facility] Address: [address] [place] [address] Performed By: #### 5 8410-2 ####[facility][1] LABORATORYCLIA [id number] [address] Platelet mean volume (Bld) [Entitic vol] 12.6 fL Normal 9.0-12.7 [facility] Comment on above: Order Comment: Speci men Type: BLOOD SPECIMENOrdering Facility: [facility] Address: [address] [place] [address] Performed By: #### 5 8410-2 ####[facility][1] LABORATORYCLIA [id number] [address] OF [facility] Platelets (Bld) [#/Vol] 129 10*3/uL Low 150-400 [facility] Comment on above: Order Comment: Speci men Type: BLOOD SPECIMENOrdering Facility: [facility] Address: [address] [place] [address] Performed By: #### 5 8410-2 ####[facility][1] LABORATORYCLIA [id number] [address] OF [facility] RBC (Bld) [#/Vol] 4.20 10*6/uL Normal 4.20-6.00 [facility] Comment on above: Order Comment: Speci men Type: BLOOD SPECIMENOrdering Facility: [facility] Address: [address] [place] [address] Performed By: #### 5 8410-2 ####[facility][1] LABORATORYCLIA [id number] [address] WBC (Bld) [#/Vol] 11.45 10*3/uL High 3.70-11.00 [facility] Comment on above: Order Comment: Speci men Type: BLOOD SPECIMENOrdering Facility: [facility] Address: [address] [place] [address] Performed By: #### 5 8410-2 ####[facility][1] LABORATORYCLIA [id number] [address] Erythrocyte distribution width (RBC) [Ratio] 12.8 % Normal 11.5-15.0 [facility] Comment on above: Order Comment: Speci men Type: BLOOD SPECIMENOrdering Facility: [facility] Address: [address] [place] [address] Performed By: #### 5 8410-2 ####[facility][1] LABORATORYCLIA [id number] [address] Hematocrit (Bld) [Volume fraction] 40.9 % Normal 39.0-51.0 [facility] Comment on above: Order Comment: Speci men Type: BLOOD SPECIMENOrdering Facility: [facility] Address: [address] [place] [address] Performed By: #### 5 8410-2 ####[facility][1] LABORATORYCLIA [id number] [address] OF [facility] Hemoglobin (Bld) [Mass/Vol] 13.2 g/dL Normal 13.0-17.0 [facility] Comment on above: Order Comment: Speci men Type: BLOOD SPECIMENOrdering Facility: [facility] Address: [address] [place] [address] Performed By: #### 5 8410-2 ####[facility][1] LABORATORYCLIA [id number] [address] MCH (RBC) [Entitic mass] 29.1 pg Normal 26.0-34.0 [facility] Comment on above: Order Comment: Speci men Type: BLOOD SPECIMENOrdering Facility: [facility] Address: [address] [place] [address] Performed By: #### 5 8410-2 ####[facility][1] LABORATORYCLIA [id number] [address] [place] MCHC (RBC) [Mass/Vol] 32.3 g/dL Normal 30.5-36.0 [facility] Comment on above: Order Comment: Speci men Type: BLOOD SPECIMENOrdering Facility: [facility] Address: [address] [place] [address] Performed By: #### 5 8410-2 ####[facility][1] LABORATORYCLIA [id number] [address] MCV (RBC) [Entitic vol] 90.3 fL Normal 80.0-100.0 [facility] Comment on above: Order Comment: Speci men Type: BLOOD SPECIMENOrdering Facility: [facility] Address: [address] [place] [address] Performed By: #### 5 8410-2 ####[facility][1] LABORATORYCLIA [id number] [address] OF [place] Nucleated RBC (Bld) [#/Vol] 10*3/uL Normal <0.01 [facility] Comment on above: Order Comment: Speci men Type: BLOOD SPECIMENOrdering Facility: [facility] Address: [address] [place] [address] Performed By: #### 5 8410-2 ####[facility][1] LABORATORYCLIA [id number] [address] [place] Platelet mean volume (Bld) [Entitic vol] 11.4 fL Normal 9.0-12.7 [facility] Comment on above: Order Comment: Speci men Type: BLOOD SPECIMENOrdering Facility: [facility] Address: [address] [place] [address] Performed By: #### 5 8410-2 ####[facility][1] LABORATORYCLIA [id number] [address] OF [place] Platelets (Bld) [#/Vol] 141 10*3/uL Low 150-400 [facility] Comment on above: Order Comment: Speci men Type: BLOOD SPECIMENOrdering Facility: [facility] Address: [address] [place] [address] Result Comment: No c lot detected. Performed By: #### 5 8410-2 ####[facility][1] LABORATORYCLIA [id number] [address] OF [place] RBC (Bld) [#/Vol] 4.53 10*6/uL Normal 4.20-6.00 [facility] Comment on above: Order Comment: Speci men Type: BLOOD SPECIMENOrdering Facility: [facility] Address: [address] [place] [address] Performed By: #### 5 8410-2 ####[facility][1] LABORATORYCLIA [id number] [place] [address] [place] WBC (Bld) [#/Vol] 9.92 10*3/uL Normal 3.70-11.00 [facility] Comment on above: Order Comment: Speci men Type: BLOOD SPECIMENOrdering Facility: [facility] Address: [address] [place], [place] [address] Performed By: #### 5 8410-2 ####[facility][1] LABORATORYCLIA [id number] [place] [address] [place] XR CHEST 1V FRONTALon 2023 XR CHEST 1V FRONTAL * * *Final Report* * * DATE OF EXAM: Feb 10 2024 6:01AM [id number] [id number] - XR CHEST 1V FRONTAL / PROCEDURE REASON: Post-operative/post-proced ure assessment * * * * Physician Interpretation * * * * EXAMINATION: CHEST RADIOGRAPH (SINGLE VIEW AP OR PA) CLINICAL HISTORY: Post-operative/post-proced ure assessment right upper lobectomy MQ: XC1_5 Comparison: Chest radiograph 02/09/[address] chest 12/13/2023. RESULT: Lines, tubes, and devices: Unaltered position of right-sided chest tube. Overlying cardiac monitoring leads. Lungs and pleura: No consolidation. No measurable pneumothorax or sizable pleural effusion. Cardiomediastinal silhouette: Normal cardiomediastinal silhouette with left coronary artery stent. Other: None. IMPRESSION: No acute radiographic abnormality. Security Business Analyst: BETTY Transcribe Date/Time: Feb 10 2024 6:27A Dictated by : ELIJAH GONSALEZ MD This examination was interpreted and the report reviewed and electronically signed by: ELIJAH GONSALEZ MD on Feb 10 2024 6:30AM EST [id number] Normal [facility] ALK (D5F3)on 02-09-2024 ALK INTERPRETATION Equivocal Abnormal [facility] Comment on above: Order Comment: Speci men Type: TISSUE SPECIMENOrdering Facility: [facility] Address: [address] [place], [place] [address] Performed By: #### S ####[facility][1] LABORATORYCLIA [id number] [place] [address] [place]#### [id number], [id number] ####[facility] LABCLIA [id number] [place] [address] [place]#### ROS1, RET, TOPTO, GNDT1, FSHLNG ####[facility] LIMSCLIA [id number] [place] [address] [place] BIOMARKER METHOD Immunohistochemistry was performed on formalin fixed paraffin-embedded tissue using the rabbit monoclonal antibody D5F3 ([employer], [place], [place]) followed by ultrasensitive bright field detection (Optiview with amplification [[employer], [place], [place]]). [facility] Comment on above: Order Comment: Speci men Type: TISSUE SPECIMENOrdering Facility: [facility] Address: [address] [place] [address] Performed By: #### S ####[facility] HOSPITALIA [id number] [place] [address] [place]#### [id number], [id number] ####[facility] LABCLIA [id number] [place] [address] [place]#### ROS1, RET, TOPTO, GNDT1, FSHLNG ####[facility] LIMSCLIA [id number] [place] [address] [place] BLOCK ID [id number] [facility] Comment on above: Order Comment: Speci men Type: TISSUE SPECIMENOrdering Facility: [facility] Address: [address] [place] [address] Performed By: #### S ####[facility][1] LABORATORYCLIA [id number] [place] [address] [place]#### [id number], [id number] ####[facility] LABCLIA [id number] [place] [address] [place]#### ROS1, RET, TOPTO, GNDT1, FSHLNG ####[facility] LIMSCLIA [id number] [place] [address] [place] [facility] CASE NUMBER [id number] Normal [facility] Comment on above: Order Comment: Speci men Type: TISSUE SPECIMENOrdering Facility: [facility] Address: [address] [place] [address] Performed By: #### S ####[facility][1] LABORATORYCLIA [id number] [place] [address] [place]#### [id number], [id number] ####[facility] LABCLIA [id number] [place] [address] [place]#### ROS1, RET, TOPTO, GNDT1, FSHLNG ####[facility] LIMSCLIA [id number] [address] [place] ANES POSTPROC EVALon 024 ANES POSTPROC EVAL HNO ID: [id number] Author: INGRIS POSEY MD Service: Anesthesiology Author Type: Anesthesiologist Type: Anesthesia Postprocedure Evaluation Filed: 02/09/2024 15:28 Note Text: POST ANESTHESIA EVALUATION NOTE : 1955 Procedure Summary Date: 02/09/24 Room / Location: ID OR / ID OR Anesthesia Start: 905 Anesthesia Stop: 1515 Procedures: BRONCHOSCOPY FLEXIBLE ADULT (Bronchus) THORACOSCOPY SURGICAL W/DIAGNOSTIC WEDGE RESECTION FOLLOWED BY ANATOMIC LUNG RESECTION (Right: Lung lobe upper) Diagnosis: Nodule of right lung (Nodule of right lung [R91.1]) Surgeons: Nadege Tadeo MD Responsible Provider: Ingris Posey MD Anesthesia Type: general ASA Status: 3 Anesthesia Type: general Airway Type: ETT Last Vitals Vitals Value Taken Time BP 02/09/24 1527 Temp 02/09/24 1527 Pulse 91 02/09/24 1526 Resp 15 02/09/24 1526 SpO2 97 % 02/09/24 1526 Vitals shown include unfiled device data. Post Anesthesia Patient Status Patient Evaluation: ICU. Anticipated Disposition: ICU planned admission. Neurological Status: sleepy but arousable. Pulmonary Status: breathing comfortably on supplemental oxygen Airway Control: returned to baseline unsupported. Cardiovascular Status: stable. Intraoperative Events: no significant anesthesia events Recommendation: further care per PACU/ICU/floor team. Anesthesia Observations No Documentation SIGNATURE: Ingris Posey MD PATIENT NAME: Sharonda Flores DATE: February 09, 2024 TIME: 3:27 PM CSN: [id number] Normal [facility] ANES PRE-OPon 02-09-2024 ANES PRE-OP HNO ID: [id number] Author: INGRIS POSEY MD Service: Anesthesiology Author Type: Anesthesiologist Type: Anesthesia Preprocedure Evaluation Filed: 02/09/2024 07:51 Note Text: ANESTHESIOLOGY DAY OF SURGERY NOTE : 1955 Procedure Information Date/Time: 02/09/24 0800 Procedures: BRONCHOSCOPY FLEXIBLE ADULT (Bronchus) THORACOSCOPY SURGICAL W/DIAGNOSTIC WEDGE RESECTION FOLLOWED BY ANATOMIC LUNG RESECTION (Right: Lung lobe upper) THORACOTOMY ADULT (Right: Chest) Location: ID OR [address] [place] [address] OR Surgeons: Nadege Tadeo MD Estimated body mass index is 27.57 kg/m? as calculated from the following: Height as of 01/29/24: 167.6 cm (5' 6). Weight as of 01/29/24: 77.5 kg (170 lb 12.8 oz). Most recent hematocrit and potassium results: Hematocrit 44.5 01/29/2024 Potassium 4.2 01/29/2024 Relevant Problems No relevant active problems 68M with RUL mass, CAD s/p stents 2011- on asa LD 02/07, EF nml, HTN, TRAM I - PHYSICAL EVALUATION AIRWAY Patient intubated: No. Mallampati: II. TM distance: >3 FB. Neck ROM: full ROM without neurological symptoms. Mouth opening: adequate. Short neck: no. Thick neck: no DENTAL Dental findings: teeth intact. II - ANESTHESIA PLAN ASA Score: 3 Anesthetic Plan: general Airway type: ETT The patient is a current smoker. NPO Status: adequate Beta Aric Administration of chronic beta aric medication planned. Monitoring Plan Monitoring plan: standard ASA and invasive hemodynamic monitoring. Monitoring method: arterial Line Post Procedure Analgesic Plan Postoperative analgesic plan: parenteral or oral opioids and multimodal analgesia. Informed Consent Anesthetic risks, benefits, alternatives, personnel and consent discussed: yes. Patient / Responsible Democrat agrees to proceed: yes Patient / Surrogate agrees to blood products: Yes Significant changes in the patient condition since the History and Physical, not otherwise documented in primary service progress note: no. Potential Anesthesia issues that may suggest increased risk of complications or contraindication to planned procedure: none. Vitals Value Taken Time BP 139/68 02/09/2416 Pulse 70 02/09/2416 Resp 16 02/09/24715 Temp 36.5 ?C (97.7 ?F) 02/09/24715 SpO2 98 % 02/09/24715 No current facility-administered medications on file as of 02/09/2024. Outpatient Medications as of 02/09/2024 Medication Sig atorvastatin (LIPITOR) 80 mg tablet Take 1 tablet by mouth daily at bedtime. For cholesterol. ezetimibe (ZETIA) 10 mg tablet Take 1 tablet by mouth once daily. Aspirin 81 mg Tab Take 81 mg by mouth once daily. carvedilol (COREG) 6.25 mg tablet Take 6.25 mg by mouth once daily. lisinopril (ZESTRIL) 5 mg tablet Take 5 mg by mouth once daily. nitroglycerin sublingual (NITROQUICK) 0.4 mg SL tablet Dissolve 1 tablet under the tongue every 5 minutes as needed. I have interviewed and examined the patient. I have reviewed the medical record and/or the pre-anesthesia evaluation, pertinent labs, and test results. This contains updated information obtained within 48 hours of Surgery/Procedure. SIGNATURE: Ingris Posey MD PATIENT NAME: Sharonda Flores DATE: February 09, 2024 TIME: 7:50 AM CSN: [id number] Normal [facility] Basic metabolic 2000 panelon 02-09-2024 Anion gap [Moles/Vol] 12 mmol/L Normal 8-15 [facility] Comment on above: Order Comment: Speci men Type: BLOOD SPECIMENOrdering Facility: [facility] Address: [address] [place] [address] Performed By: #### 2 4321-2 ####[facility][1] LABORATORYCLIA [id number] [place] [address] [place] Calcium [Mass/Vol] 8.5 mg/dL Normal 8.5-10.2 [facility] Comment on above: Order Comment: Speci men Type: BLOOD SPECIMENOrdering Facility: [facility] Address: [facility] [place] [address] Performed By: #### 2 4321-2 ####[facility][1] LABORATORYCLIA [id number] [place] [address] [place] Chloride [Moles/Vol] 106 mmol/L Normal 98-107 [facility] Comment on above: Order Comment: Speci men Type: BLOOD SPECIMENOrdering Facility: [facility] Address: [address] [place] [address] Performed By: #### 2 4321-2 ####[facility][1] LABORATORYCLIA [id number] [place] [address] [place] CO2 [Moles/Vol] 21 mmol/L Low 22-30 [facility] Comment on above: Order Comment: Speci men Type: BLOOD SPECIMENOrdering Facility: [facility] Address: [address] [place] [address] Performed By: #### 2 4321-2 ####[facility][1] LABORATORYCLIA [id number] [place] [address] [place] Creatinine [Mass/Vol] 0.87 mg/dL Normal 0.73-1.22 [facility] Comment on above: Order Comment: Speci men Type: BLOOD SPECIMENOrdering Facility: [facility] Address: [address] [place] [address] Performed By: #### 2 4321-2 ####[facility][1] LABORATORYCLIA [id number] [address] OF [place] Creatinine and Glomerular filtration rate.predicted panel (S/P/Bld) 94 mL/min/1.73m??? Normal >=60 [facility] Comment on above: Order Comment: Speci men Type: BLOOD SPECIMENOrdering Facility: [facility] Address: [address] [place] [address] Result Comment: Piedad mated Glomerular Filtration Rate (eGFR) is calculated using the 2021 CKD-EPI creatinine equation. This equation utilizes serum creatinine, sex, and age as parameters. The creatinine assay has traceable calibration to isotope dilution-mass spectrometry. Refer to KDIGO guidelines for clinical interpretation. In patients with unstable renal function, e.g. those with acute kidney injury, the eGFR may not accurately reflect actual GFR. Performed By: #### 2 4321-2 ####[facility][1] LABORATORYCLIA [id number] [place] [address] [place] Glucose [Mass/Vol] 163 mg/dL High 74-99 [facility] Comment on above: Order Comment: Speci men Type: BLOOD SPECIMENOrdering Facility: [facility] Address: [address] [place] [address] Result Comment: The [place] Diabetes Association (ADA) provides guidance for cutoff values for fasting glucose and random glucose. The ADA defines fasting as no caloric intake for at least 8 hours. Fasting plasma glucose results between 100 to 125 mg/dL indicate increased risk for diabetes (prediabetes). Fasting plasma glucose results greater than or equal to 126 mg/dL meet the criteria for diagnosis of diabetes. In the absence of unequivocal hyperglycemia, results should be confirmed by repeat testing. In a patient with classic symptoms of hyperglycemia or hyperglycemic crisis, random plasma glucose results greater than or equal to 200 mg/dL meet the criteria for diagnosis of diabetes. Reference: Standards of Medical Care in Diabetes 2016, [place] [employer] Association. Diabetes Care. 2016.39(Suppl 1). Performed By: #### 2 4321-2 ####[facility][1] LABORATORYCLIA [id number] [place] [address] [place] Potassium [Moles/Vol] 4.2 mmol/L Normal 3.7-5.1 [facility] Comment on above: Order Comment: Speci men Type: BLOOD SPECIMENOrdering Facility: [facility] Address: [address] [place] [id number] Performed By: #### 2 4321-2 ####[facility][1] LABORATORYCLIA [id number] [place] [id number] [place] Sodium [Moles/Vol] 139 mmol/L Normal 136-144 [facility] Comment on above: Order Comment: Speci men Type: BLOOD SPECIMENOrdering Facility: [facility] Address: [address] [place] [address] Performed By: #### 2 4321-2 ####[facility][1] LABORATORYCLIA [id number] [place] [id number] [facility] Urea nitrogen [Mass/Vol] 20 mg/dL Normal 9-24 [facility] Comment on above: Order Comment: Speci men Type: BLOOD SPECIMENOrdering Facility: [facility] Address: [address] [place] [address] Performed By: #### 2 4321-2 ####[facility][1] LABORATORYCLIA [id number] [address] CBC panel Auto (Bld)on 02-08 Erythrocyte distribution width (RBC) [Ratio] 12.6 % Normal 11.5-15.0 [facility] Comment on above: Order Comment: Speci men Type: BLOOD SPECIMENOrdering Facility: [facility] Address: [address] [place] [address] Performed By: #### 5 8410-2 ####[facility][1] LABORATORYCLIA [id number] [address] Hematocrit (Bld) [Volume fraction] 42.2 % Normal 39.0-51.0 [facility] Comment on above: Order Comment: Speci men Type: BLOOD SPECIMENOrdering Facility: [facility] Address: [address] [place] [address] Performed By: #### 5 8410-2 ####[facility][1] LABORATORYCLIA [id number] [address] Hemoglobin (Bld) [Mass/Vol] 13.6 g/dL Normal 13.0-17.0 [facility] Comment on above: Order Comment: Speci men Type: BLOOD SPECIMENOrdering Facility: [facility] Address: [address] [place] [address] Performed By: #### 5 8410-2 ####[facility][1] LABORATORYCLIA [id number] [place] [address] [place] MCH (RBC) [Entitic mass] 28.8 pg Normal 26.0-34.0 [facility] Comment on above: Order Comment: Speci men Type: BLOOD SPECIMENOrdering Facility: [facility] Address: [address] [place] [address] Performed By: #### 5 8410-2 ####[facility][1] LABORATORYCLIA [id number] [address] STATES OF [facility] MCHC (RBC) [Mass/Vol] 32.2 g/dL Normal 30.5-36.0 [facility] Comment on above: Order Comment: Speci men Type: BLOOD SPECIMENOrdering Facility: [facility] Address: [address] [place] [address] Performed By: #### 5 8410-2 ####[facility][1] LABORATORYCLIA [id number] [address] OF [facility] MCV (RBC) [Entitic vol] 89.4 fL Normal 80.0-100.0 [facility] Comment on above: Order Comment: Speci men Type: BLOOD SPECIMENOrdering Facility: [facility] Address: [address] [place] [address] Performed By: #### 5 8410-2 ####[facility][1] LABORATORYCLIA [id number] [address] Nucleated RBC (Bld) [#/Vol] 10*3/uL Normal <0.01 [facility] Comment on above: Order Comment: Speci men Type: BLOOD SPECIMENOrdering Facility: [facility] Address: [address] [place] [address] Performed By: #### 5 8410-2 ####[facility][1] LABORATORYCLIA [id number] [address] Platelet mean volume (Bld) [Entitic vol] 11.2 fL Normal 9.0-12.7 [facility] Comment on above: Order Comment: Speci men Type: BLOOD SPECIMENOrdering Facility: [facility] Address: [address] [place] [address] Performed By: #### 5 8410-2 ####[facility][1] LABORATORYCLIA [id number] [address] Platelets (Bld) [#/Vol] 144 10*3/uL Low 150-400 [facility] Comment on above: Order Comment: Speci men Type: BLOOD SPECIMENOrdering Facility: [facility] Address: [address] [place] [address] Performed By: #### 5 8410-2 ####[facility][1] LABORATORYCLIA [id number] [address] RBC (Bld) [#/Vol] 4.72 10*6/uL Normal 4.20-6.00 [facility] Comment on above: Order Comment: Speci men Type: BLOOD SPECIMENOrdering Facility: [facility] Address: [address] [place] [address] Performed By: #### 5 8410-2 ####[facility][1] LABORATORYCLIA [id number] [address] WBC (Bld) [#/Vol] 12.55 10*3/uL High 3.70-11.00 [facility] Comment on above: Order Comment: Speci men Type: BLOOD SPECIMENOrdering Facility: [facility] Address: [address] [place] [address] Performed By: #### 5 8410-2 ####[facility][1] LABORATORYCLIA [id number] [address] ECG COMPLETEon 02-09-2024 ECG COMPLETE Ventricular Rate : 7 9 BPM Atrial Rate : 79 BPM P-R Interval : 132 ms QRS Duration : 78 ms Q-T Interval : 394 ms QTC Calculation(Bazett) : 451 ms Calculated P [place] : 62 degrees Calculated R [place] : 11 degrees Calculated T [place] : 12 degrees NORMAL SINUS RHYTHM INFERIOR INFARCT , AGE UNDETERMINED ABNORMAL ECG NO PREVIOUS ECGS AVAILABLE Confirmed by MD LUCILLE, JAC ([id number]) on 02/11/2024 11:25:43 PM NAME : SHARONDA FLORES PID : [id number] : 1955 Gender : Male Race : ORD : [id number] Procedure Date : Feb 09 2024 15:39:23 Edit Date : Feb 11 2024 23:25:48 Diagnosis: NORMAL SINUS RHYTHM INFERIOR INFARCT , AGE UNDETERMINED ABNORMAL ECG NO PREVIOUS ECGS AVAILABLE Confirmed by MD ADKINS YASSAR ([id number]) on 02/11/2024 11:25:43 PM Test Reason : Post-OP Location : [address] : [place] [address] Overread By : MD ADKINS YASSAR Edited By : MD ADKINS YASSAR Referred By : NADEGE TADEO Acquired by : LOYD THAYER Normal [facility] FISH FOR ALK (2P23) FFPET NS CLCon 02-09-2024 FISH FOR ALK (2P23) FFPET NSCLC Normal [facility] Comment on above: Order Comment: Speci men Type: TISSUE SPECIMENOrdering Facility: [facility] Address: [address] [place] [address] Result Comment: FISH for ALK (2p23) FFPET NSCLC Laboratory Accession Number: [id number] Case: [id number] Block/Part ID: [id number] Sample Type: FFPET Sample Description: Lung, Right Upper Lobe, Lobectomy Received Date: 03/12/2024 Number of nuclei scored: 50 RESULT: Result Reference Range ALK Rearrangement 4% (0-14%) INTERPRETATION: Interphase FISH was negative for a rearrangement involving the ALK gene at 2p23.2. Nomenclature: nuc shanice(ALKx3~10)[31/50] METHODOLOGY: A dual color, break-apart probe specific to the ALK gene at 2p23.2 ([employer], [place], [place]) was used in this interphase FISH analysis to detect the presence of an ALK rearrangement. The slides were scored manually. REFERENCES: 1) Vidya EL, Ethan Y-J, Nicolás DR, et al. Anaplastic Lymphoma Kinase Inhibition in Jgd-Sgvff-Pmnq Lung Cancer. N Engl J Med 2010;363:7968-9252. 2) Kristin NI, Eric PT, Ekta JENKINS, et al. Molecular Testing Guideline for the Selection of Lung Cancer Patients for EGFR and ALK Tyrosine Kinase Inhibitors: Guideline from the College of [place] Pathologists, Internatonal Association for the Study of Lung Cancer, and Association for Molecular Pathology. J Mol Diagn 2013;15:415-53. 3) NCCN Clinical Practice Guidelines in Oncology: Non-Small Cell Lung Cancer, National Comprehensive Cancer Network, Inc. Available at NCCN.org. 4) Iris SJ, Lance Cordova, Jeff S, et al. Unique clinicopathologic features characterize ALK-rearranged lung adenocarcinoma in the western population. Clin Cancer Res 2009;15:5647-9186. LIMITATIONS: This test will not identify all rearrangements involving ALK. Rare, cryptic abnormalities may be below the resolution of the assay, or may otherwise be undetected. Specimen size, quality or representativeness can affect the quality of the result. This assay has been validated for paraffin-embedded tissues fixed with 10% neutral buffered formalin. Decalcification agents and fixation agents containing heavy metals, e.g. B5, or harsh acid or base components (e.g. Bouin's solution) can adversely impact assay performance. DISCLAIMER: This test was developed and its performance characteristics determined by the [facility]'s [facility] ([facility]). It has not been cleared or approved by the FDA. [facility] is regulated under CLIA as qualified to perform high- complexity testing. This test is used for clinical purposes. It should not be regarded as investigational or for research. Interpretation [place] [address]. CLIA Number: [id number] As reviewed by Marilyn Best MD Performed By: #### S ####[facility][1] LABORATORYCLIA [id number] [place] [address] [place]#### [id number], [id number] ####[facility] LABCLIA [id number] [place] [address] [place]#### ROS1, RET, TOPTO, GNDT1, FSHLNG ####[facility] LIMSCLIA [id number] [place] [address] [place] FISH FOR RET (10Q11.21)on FISH FOR RET (10Q11.21) Normal A [facility] Comment on above: Order Comment: Speci men Type: TISSUE SPECIMENOrdering Facility: [facility] Address: [address], [place] [address] Result Comment: FISH for RET (10q11.21) Laboratory Accession Number: [id number] Case: [id number] Block/Part ID: [id number] Sample Type: FFPET Sample Description: RIGHT UPPER LOBE, LUNG LOBECTOMY Received Date: 03/04/2024 Number of nuclei scored: 50 RESULT: Result Reference Range RET Rearrangement 0% (0-14%) INTERPRETATION: A rearrangement involving the RET gene at 10q11.21 was not detected. Clinical and pathological correlation is recommended. Nomenclature: nuc shanice(RETx1)[]/(RETx3)[] METHODOLOGY: A dual color, break apart probe specific to the RET gene at 10q11.21 ([employer], [place], [place]) was used in this interphase FISH assay to detect the presence of a RET rearrangement. The slides were scored manually. REFERENCES: Edison Romero, Anup L, Hasbrittaney A, et al. Response to Cabozantinib in patients with RET fusion-positive lung adenocarcinomas. Cancer Discov 2013;3:630-5 2. Autumn ROMERO. RET revisited: expanding the oncogenic portfolio. Jana Rev Cancer 2014;14:173-86 3. Lea C, et al. Molecular methods for somatic mutation testing in lung adenocarcinoma: EGFR and beyond. Trans Lung Cancer Res 2015;4:126-41 4. National Comprehensive Cancer Network (NCCN) Clinical Practice Guidelines in Oncology, Non-Small Cell Lung Cancer, Available at NCCN.org LIMITATIONS: This test will not identify all rearrangements in RET. Rare, cryptic abnormalities may be below the resolution of the assay, or may otherwise be undetected. Specimen size, quality or representativeness can affect the quality of the results. This assay has been validated for tissues fixed with neutral buffered formalin. Decalcification agents and fixation agents containing heavy metals, e.g. B5, or harsh acid or base components (e.g. Bouin's solution) can adversely impact assay performance. DISCLAIMER: This test was developed and its performance characteristics determined by the [facility]'s [facility] ([facility] It has not been cleared or approved by the FDA. [facility] is regulated under CLIA as qualified to perform high- complexity testing. This test is used for clinical purposes. It should not be regarded as investigational or for research. Interpretation performed at [facility], [address] [place] [address]. CLIA Number: [id number] As reviewed by Jazmyn Lamar MD, PhD Performed By: #### S ####[facility][1] LABORATORYCLIA [id number] [address] [place]#### [id number], [id number] ####[facility] LABCLIA [id number] [address]#### ROS1, RET, TOPTO, GNDT1, FSHLNG ####[facility] LIMSCLIA [id number] [address] [place] HISTORY PHYSICALon HISTORY PHYSICAL HNO ID: [id number] Author: NADEGE TADEO MD Service: General Surgery Author Type: Physician Type: H&P Filed: 02/09/2024 08:25 Note Text: UPDATED HISTORY AND PHYSICAL EXAMINATION SERVICE DATE: 02/09/2024 SERVICE TIME: 02/09/2024 PHYSICAL EXAM MUST BE COMPLETED ON ADMISSION The History and Physical (completed in the past 30 days) has been reviewed and the patient has been examined. The contents accurately reflect the patient's condition with the following additions or revisions since the HANDP was completed. Examination indicates no changes. This HANDP can be found in the Electronic Medical Record. SIGNATURE: Leon Flower MD PATIENT NAME: Sharonda Flores DATE: February 09, 2024 TIME: 7:31 AM Normal [facility] MOLECULAR GENETIC DATAon FISH PROBE (LIMS) ROS1 Normal [facility] Comment on above: Order Comment: Speci men Type: TISSUE SPECIMENOrdering Facility: [facility] Address: [address] [place] [address] Performed By: #### S ####[facility][1] LABORATORYCLIA [id number] [address] [place]#### [id number], [id number] ####[facility] LABCLIA [id number] [place] [address] [place]#### ROS1, RET, TOPTO, GNDT1, FSHLNG ####[facility] LIMSCLIA [id number] [address] [address] [place] FISH PROBE (LIMS) RET Normal [facility] Comment on above: Order Comment: Speci men Type: TISSUE SPECIMENOrdering Facility: [facility] Address: [address] [place] [address] Performed By: #### S ####[facility][1] LABORATORYCLIA [id number] [place] [address] [place]#### [id number], [id number] ####[facility] LABCLIA [id number] [place] [address] [place]#### ROS1, RET, TOPTO, GNDT1, FSHLNG ####[facility] LIMSCLIA [id number] [place] [address] [place] FISH PROBE (LIMS) ALK Normal [facility] Comment on above: Order Comment: Speci men Type: TISSUE SPECIMENOrdering Facility: [facility] Address: [address] [place] [address] Performed By: #### S ####[facility][1] LABORATORYCLIA [id number] [place] [address] [place]#### [id number], [id number] ####[facility] LABCLIA [id number] [place] [address] [place]#### ROS1, RET, TOPTO, GNDT1, FSHLNG ####[facility] LIMSCLIA [id number] [place] [id number] [place] FISH RESULT (LIMS) Negative [facility] Comment on above: Order Comment: Speci men Type: TISSUE SPECIMENOrdering Facility: [facility] Address: [address] [place] [address] Performed By: #### S ####[facility] LABORATORYCLIA [id number] [place] [address] [place]#### [id number], [id number] ####[facility] LABCLIA [id number] [address] [place]#### ROS1, RET, TOPTO, GNDT1, FSHLNG ####[facility] LIMSCLIA [id number] [address] STATES OF [facility] OPERATIVE NOon 02-09-2024 OPERATIVE NO HNO ID: [id number] Author: NADEGE TADEO MD Service: Cardiac Surgery Author Type: Physician Type: Operative Report Filed: 02/09/2024 15:17 Note Text: [facility] CARDIO-THORACICSURGERY OPERATIVE/PROCEDURE REPORT LOG ID: [id number] SURGERY/PROCEDURE DATE: 02/09/2024 INCISION/PROCEDURE START TIME: 9:53 AM INCISION CLOSE/PROCEDURE END TIME: 3:04 PM SURGEON(S)/PROCEDURALIST(S ) AND SCRAPER TENDER(S): Surgeon(s) and Role: * Nadege Tadeo MD - Primary * Leon Flower MD - Resident - Assisting Physician Healthcare Manager: Corry Burleson PA-C; Cathi Hastings PA-C ANESTHESIA: General THOR OP REPORTS Performed by: Nadege Tadeo MD Authorized by: Nadege Tadeo MD PROCEDURE: Lung Resection PREOPERATIVE DIAGNOSIS: Lung Nodule POSTOPERATIVE DIAGNOSIS: Lung cancer, right upper lobe Primary Procedure: Laterality: Right Approach: VATS Removed: Lobectomy Lobe: Upper Secondary Procedures: Wedge Resection and Bronchoscopy Other Secondary Procedures: Cryo nerve block levels T4, T5, T6, T7, T8 LUNG RESECTION PROCEDURE DETAILS: Division Details: Division of pulmonary ligament, Division of arterial branches, Division of venous branches, Division of airway branches and Division of fissure Division of Arterial Branches: Per routine Division of Venous Branches: Per routine Division of Airway Branches: Per routine Division of Fissure: Per routine Specimen Removed: Endocatch bag Frozen Sections Performed: Yes Initial Margins Negative: N/A Lymph Nodes Negative: N/A Adequate hemostasis, lymphostasis, and pneumostasis Number of Chest Tubes: 1 Chest Tube 1: Location: Right Position: Pleural Size: 32 Type: Straight Closure: Routine VATS Unusually Difficult Procedure: No Lung Resection Procedure Findings: Initial wedge of RUL showed adenocarcinoma on frozen, necessitating RUL lobectomy. Hilar lymph nodes kept on specimen. POST-PROCEDURE DETAILS Patient Tolerance of Procedure: tolerated well, no immediate complications Catheters/Paisley/Wires Counts: Final Counts Correct Estimated Blood Loss: 300 mL Specimens: See Specimens below from Opt[employer] Log Extubated in OR: Yes Destination: ICU SURGEON/SCRAPER TENDER PARTICIPATION: The primary surgeon/proceduralist performed the procedure with assistance. and No qualified Resident/Fellow was available. Spectrographer: Opened: Surgeon present Closed: Indirect supervision Alteration/removal of tissue: Surgeon present Dissected Tissue: Surgeon present Second Assist: Opened: Surgeon present Closed: Indirect supervision Alteration/removal of tissue: Surgeon present Dissected Tissue: Surgeon present SPECIMENS: ID Type Source Tests Collected by Time A : RIGHT UPPER LOBE WEDGE RESECTION Tissue Lung, Right, Wedge Resection SURGICAL PATHOLOGY Nadeeg Tadeo MD 02/09/2024 10:26 AM B : level 9 Tissue Lymph Node SURGICAL PATHOLOGY Nadege Tadeo MD 02/09/2024 10:50 AM C : Right Upper Lobe Tissue Lung, Right, Lobectomy SURGICAL PATHOLOGY Nadege Tadeo MD 02/09/2024 2:01 PM D : right level 4 Tissue Lymph Node SURGICAL PATHOLOGY Nadege Tadeo MD 02/09/2024 2:04 PM E : right level 7 Tissue Lymph Node SURGICAL PATHOLOGY Nadege Tadeo MD 02/09/2024 2:15 PM COMPLETED BY: Nadege Tadeo MD PATIENT NAME: Sharonda Flores DATE: February 09, 2024 TIME: 3:14 PM AGE: [age] year old Normal [facility] PD-L1 22C3on 02-09-2024 AP BIOMARKER DISCLAIMER Normal [facility] Comment on above: Order Comment: Speci men Type: TISSUE SPECIMENOrdering Facility: [facility] Address: [address] [place] [address] Result Comment: Kathy palomo Developed Test (LDT) Disclaimer: Performance characteristics of immunohistochemical, immunofluorescent and chromogenic in-situ hybridization tests have been determined by the performing laboratory within [facility]???s [facility] Pathology and Laboratory Medicine Department ([facility], [facility], [facility], [facility], [facility], [facility], or [facility]) in a manner consistent with CLIA requirements. One or more of these tests have not been cleared or approved by the FDA. [facility] is regulated under CLIA as qualified to perform high-complexity testing. These tests are used for clinical purposes. They should not be regarded as investigational or for research. Positive and negative controls stain appropriately. Performed By: #### S ####[facility] [id number] [place] [address] [place]#### [id number], [id number] ####[facility] LABCLIA [id number] [place] [address] [place]#### ROS1, RET, TOPTO, GNDT1, FSHLNG ####[facility] LIMSCLIA [id number] [place] [address] [place] AP BLOCK ID [id number] Normal [facility] Comment on above: Order Comment: Speci men Type: TISSUE SPECIMENOrdering Facility: [facility] Address: [address] [place] [address] Performed By: #### S ####[facility] [id number] [place] [address] [place]#### [id number], [id number] ####[facility] LABCLIA [id number] [place] [address] [place]#### ROS1, RET, TOPTO, GNDT1, FSHLNG ####[facility] LIMSCLIA [id number] [place] [address] [place] BIOMARKER INTERPRETATION COMMENT AND REFERENCE RANGE Normal [facility] Comment on above: Order Comment: Speci men Type: TISSUE SPECIMENOrdering Facility: [facility] Address: [address] [place] [address] Result Comment: Inte rpretation standard: TPS: The Tumor Proportion Score is the percentage of the viable tumor cells demonstrating partial or completed membrane staining of any intensity. Reference Range for PDL1 expression in Non-Small Cell Lung Cancer (NSCLC) TPS less than 1%: Negative TPS between 1 - 49%: Low Positive TPS greater than 50%: High Positive The PDL1 expression of Non-Small Cell Lung Cancer (NSCLC) is interpreted to determine if the patient should be considered for treatment with either pembrolizumab (KEYTRUDA) or cemiplimab-rwlc (LIBTAYO). Please refer to the Product label for additional information. KEYTRUDA - (https://www.Reelhouse.com/prescribing-information/) LIBTAYO - (https://www.Livemap/sites/default/files/Libtayo_FPI.pdf ) Performed By: #### S ####[facility][1] LABORATORYCLIA [id number] [address] [place]#### [id number], [id number] ####[facility] LABCLIA [id number] [address]#### ROS1, RET, TOPTO, GNDT1, FSHLNG ####[facility] LIMSCLIA [id number] [address] Result Comment: Refe rence range for ALK (D5F3): Positive: strong and diffuse cytoplasmic staining in any number of tumor cells Equivocal: weak and/or focal cytoplasmic staining Negative: absence of cytoplasmic staining tumor cells. Interpretation comments: As fluorescent in situ hybridization can help resolve equivocal IHC results, any equivocal results will be reflexed to ALK-FISH. The molecular study's results will be reported separately. Reference: 1. Kristin NI., Eric PT., Arabella DL., et al. Updated Molecular Testing Guideline for the Selection of Lung Cancer Patients for Treatment With Targeted Tyrosine Kinase Inhibitors. Guideline From the College of [place] Pathologists, the International Association for the Study of Lung Cancer, and the Association for Molecular Pathology. Arch Pathol Lab Med. 2018 Mar;142(3):321-346. doi: 10.5858/arpa.0376-1248-EY. Epub 2017Aug 21. PMID: 11574563. 2. Anna DICKSON., Tabatha ROMERO., Amee Cordova., et al. An International Interpretation Study Using the ALK IHC Antibody D5F3 and a Sensitive Detection Kit Demonstrates High Concordance between ALK IHC and ALK FISH and between Evaluators. J Thorac Oncol. 2014 November;9(5):631-8. doi: 10.1097/JTO.3281725683829104. PMID: 07523661; PMCID: XHA9474767. 3. Rod Grimes., Andre Judge, Leatha Ivan, et al. A Sensitive ALK Immunohistochemistry Software Publisher Diagnostic Test Identifies Patients Eligible for Treatment with Crizotinib. J Thorac Oncol. 2017 November;12(5):804-813. doi: 10.1016/j.jtho.2017.01.020. Epub 2016Aug 28. PMID: 62091046. BIOMARKER METHOD Immunohistochemistry was performed on formalin fixed paraffin-embedded tissue using the mouse monoclonal antibody 22C3 ([employer]; [place], [place]) followed by ultrasensitive bright field detection (Optiview with amplification [[employer], [place]]). [facility] Comment on above: Order Comment: Speci men Type: TISSUE SPECIMENOrdering Facility: [facility] Address: [address] [place] [address] Performed By: #### S ####[facility][1] LABORATORYCLIA [id number] [place] [address] [place]#### [id number], [id number] ####[facility] LABCLIA [id number] [place] [address] [place]#### ROS1, RET, TOPTO, GNDT1, FSHLNG ####[facility] LIMSCLIA [id number] [place] [address] [place] [facility] CASE NUMBER PD-L1 [id number] [facility] Comment on above: Order Comment: Speci men Type: TISSUE SPECIMENOrdering Facility: [facility] Address: [address] [place] [address] Performed By: #### S ####[facility][1] LABORATORYCLIA [id number] [place] [address] [place]#### [id number], [id number] ####[facility] LABCLIA [id number] [place] [address] [place]#### ROS1, RET, TOPTO, GNDT1, FSHLNG ####[facility] LIMSCLIA [id number] [place] [address] [place] FINAL PERFORMING LAB Normal [facility] Comment on above: Order Comment: Speci men Type: TISSUE SPECIMENOrdering Facility: [facility] Address: [address] [place] [address] Result Comment: Diag nostic interpretation performed at [facility], [address] [place] [address] CLIA: [id number] Camouflage Assembler: Bjorn Zuleta MD Electronically signed out by: Elver Whitaker MD Performed By: #### S ####[facility][1] LABORATORYCLIA [id number] [place] [address] [place]#### [id number], [id number] ####[facility] LABCLIA [id number] [place] [address] [place]#### ROS1, RET, TOPTO, GNDT1, FSHLNG ####[facility] LIMSCLIA [id number] [place] [address] [place] FIXATIVE Not Provided Normal [facility] Comment on above: Order Comment: Speci men Type: TISSUE SPECIMENOrdering Facility: [facility] Address: [address] [place] [address] Performed By: #### S ####[facility][1] LABORATORYCLIA [id number] [place] [address] [place]#### [id number], [id number] ####[facility] LABCLIA [id number] [place] [address] [place]#### ROS1, RET, TOPTO, GNDT1, FSHLNG ####[facility] LIMSCLIA [id number] [place] [address] [place] PD-L1 22C3 TPS (LUNG) INTERPRETATION Positive Abnormal [facility] Comment on above: Order Comment: Speci men Type: TISSUE SPECIMENOrdering Facility: [facility] Address: [address] [place] [address] Performed By: #### S ####[facility][1] LABORATORYCLIA [id number] [place] [address] [place]#### [id number], [id number] ####[facility] LABCLIA [id number] [place] [address] [place]#### ROS1, RET, TOPTO, GNDT1, FSHLNG ####[facility] LIMSCLIA [id number] [address] [place] PD-L1 TUMOR TYPE Other (See Comment) Normal [facility] Comment on above: Order Comment: Speci men Type: TISSUE SPECIMENOrdering Facility: [facility] Address: [address] [place] [address] Performed By: #### S ####[facility][1] LABORATORYCLIA [id number] [place] [address] [place]#### [id number], [id number] ####[facility] LABCLIA [id number] [place] [address] [place]#### ROS1, RET, TOPTO, GNDT1, FSHLNG ####[facility] LIM[facility]CLIA [id number] [place] [address] [place] TUMOR PROPORTION SCORE (TPS) 60 Normal [facility] Comment on above: Order Comment: Speci men Type: TISSUE SPECIMENOrdering Facility: [facility] Address: [address] [place] [address] Performed By: #### S ####[facility][1] LABORATORYCLIA [id number] [place] [address] [place]#### [id number], [id number] ####[facility] LABCLIA [id number] [place] [address] [place]#### ROS1, RET, TOPTO, GNDT1, FSHLNG ####[facility] LIMSCLIA [id number] [address] [place] ROS1 GENE REARRANGEMENTon FISH FOR ROS1 (6Q22) Normal [facility] Comment on above: Order Comment: Speci men Type: TISSUE SPECIMENOrdering Facility: [facility] Address: [address] [place] [address] Result Comment: FISH for ROS1(6q22) Laboratory Accession Number: [id number] Case: [id number] Block/Part ID: C16 Sample Type: FFPET Sample Description: RIGHT UPPER LOBE, LUNG LOBECTOMY Received Date: 03/04/2024 Number of nuclei scored: 50 RESULT: Result Reference Range ROS1 Rearrangement 0% (0-14%) INTERPRETATION: A rearrangement involving the ROS1 gene at 6q22.1 was not detected. Clinical and pathological correlation is recommended. Nomenclature: nuc shanice(ROS1x3~8)[25/50] METHODOLOGY: A dual color, break apart probe specific to the ROS1 gene at 6q22.1 ([employer], [place], [place]) was used in this interphase FISH assay to detect the presence of a ROS1 rearrangement. The slides were scored manually. REFERENCES: 1) Penny GAMBOA, Thang MILLS. Molecular Pathways: ROS1 Fusion Proteins in Cancer. Clin Cancer Res 2013;15:1-6. Renaldo AT, Zainab NO, Tonia B, et al. Crizotinib in Ros1-Rearranged Non-Small Cell Lung Cancer. New Encl J Med 2014;21:1963-71 2) Renaldo DAWSON, Zainab NO, Nitin Arredondo, et al. Crizotinib in ROS1-Rearranged Non-Small Lung Cancer. New Engl J Med 2014;21:1963-71 3) Lea Oro, et al. Molecular methods for somatic mutation testing in lung adenocarcinoma: EGFR and beyond. Transl Lung Cacer Res 2015;4:126-41 4) Haley M, Ibrahima Romero, Mele Oro, et al. ROS1 rearrangements in lung adenocarcinoma: prognostic impact, therapeutic options and genetic variability. Oncotarget 2015; e-pub ahead of print, October 22, 2014. 5) National Comprehensive Cancer Network (NCCN) Clinical Practice Guidelines in Oncology, Non-Small Cell Lung Cancer. Available at NCCN.org LIMITATIONS: This test will not identify all rearrangements in ROS1. Rare, cryptic abnormalities may be below the resolution of the assay, or may otherwise be undetected. Specimen size, quality or representativeness can affect the quality of the results. This assay has been validated for tissues fixed with neutral buffered formalin. Decalcification agents and fixation agents containing heavy metals, e.g. B5, or harsh acid or base components (e.g. Bouin's solution) can adversely impact assay performance. DISCLAIMER: This test was developed and its performance characteristics determined by the [facility] ([facility] It has not been cleared or approved by the FDA. [facility] is regulated under CLIA as qualified to perform high- complexity testing. This test is used for clinical purposes. It should not be regarded as investigational or for research. Interpretation performed at [facility], [address] [place] [address]. CLIA Number: [id number] As reviewed by Jazmyn Lamar MD, PhD Performed By: #### S ####[facility][1] LABORATORYCLIA [id number] [place] [address] [place]#### [id number], [id number] ####[facility] LABCLIA [id number] [place] [address] [place]#### ROS1, RET, TOPTO, GNDT1, FSHLNG ####[facility] LIMSCLIA [id number] [place] [id number] [place] SURGICAL PATHOLOGYon 024 BLOCK FOR ADDITIONAL BIOMARKERS/MOLECULAR STUDIES C16 [facility] Comment on above: Order Comment: Speci men Type: TISSUE SPECIMENOrdering Facility: [facility] Address: [address] [place] [address] Performed By: #### S ####[facility][1] LABORATORYCLIA [id number] [place], [place] [id number] [place] [address] [place]#### [id number], [id number] ####[facility] LABCLIA [id number] [address] [place]#### ROS1, RET, TOPTO, GNDT1, FSHLNG ####[facility] LIMSCLIA [id number] [address] [place] CASE REPORT Normal [facility] Comment on above: Order Comment: Speci men Type: TISSUE SPECIMENOrdering Facility: [facility] Address: [address] [place] [address] Result Comment: Surg ica Pathology Report Case: [id number] Authorizing Provider: Nadege Tadeo MD Collected: 02/09/2024 10:26 AM Ordering Location: [facility] OR Received: 02/09/2024 10:32 AM Pathologist: Mahogany Ascencio DO Intraop: David Marie MD Specimens: A) - Lung, Right, Wedge Resection, RIGHT UPPER LOBE WEDGE RESECTION B) - Lymph Node, level 9 C) - Lung, Right, Lobectomy, Right Upper Lobe D) - Lymph Node, right level 4 E) - Lymph Node, right level 7 Performed By: #### S ####[facility][1] LABORATORYCLIA [id number] [place], [place] [address] [place] [address] [place]#### [id number], [id number] ####[facility] LABCLIA [id number] [address] [id number]#### ROS1, RET, TOPTO, GNDT1, FSHLNG ####[facility] LIMSCLIA [id number] [address] [place] CLINICAL HISTORY Normal [facility] Comment on above: Order Comment: Speci men Type: TISSUE SPECIMENOrdering Facility: [facility] Address: [address] [place] [address] Result Comment: Pre- op diagnosis: Nodule of right lung [R91.1] Performed By: #### S ####[facility][1] LABORATORYCLIA [id number] [address] [place]#### [id number], [id number] ####[facility] LABCLIA [id number] [address] [place]#### ROS1, RET, TOPTO, GNDT1, FSHLNG ####[facility] LIMSCLIA [id number] [address] STATES [facility] DIAGNOSIS COMMENT Normal [facility] Comment on above: Order Comment: Speci men Type: TISSUE SPECIMENOrdering Facility: [facility] Address: [address] [place] [address] Result Comment: A. T he tumor in part A shows extensive frozen artifact which limits the morphologic evaluation as well as the evaluation for size,vascular space and pleural invasion. C. Targeted oncology profile (TOP), ALK, PDL1, ROS1 and RET testing will be performed A, C. Dr. Erica Roberts has reviewed this case and agrees with the above diagnosis. Performed By: #### S ####[facility][1] LABORATORYCLIA [id number] [place] [address] [place]#### [id number], [id number] ####[facility] LABCLIA [id number] [address] [place]#### ROS1, RET, TOPTO, GNDT1, FSHLNG ####[facility] LIMSCLIA [id number] [address] [place] FINAL DIAGNOSIS Normal [facility] Comment on above: Order Comment: Speci men Type: TISSUE SPECIMENOrdering Facility: [facility] Address: [address] [place] [address] Result Comment: A. L brionna, right upper lobe, wedge resection: - Adenocarcinoma, acinar subtype. - Inked surgical margin is positive for carcinoma. - See comment. B. Lymph node, level 9, excision: - Lymph node tissue, negative for carcinoma (0/1). C. Lung, right upper lobe, lobectomy: - Adenocarcinoma, acinar (60%) and lepidic (40%) patterns. - Margins (bronchial, vascular and parenchymal margins) negative for tumor. - Focal features suggestive of prior infarct. - Seven lymph nodes, negative for carcinoma (0/7). - See comment and synoptic report. D. Lymph node, level 4, excision: - Fibroadipose tissue, negative for tumor. - Lymph node tissue is not present. E. Lymph node, level 7, excision: - One lymph node, negative for carcinoma (0/1). Performed By: #### S ####[facility][1] LABORATORYCLIA [id number] [place] [address] [place]#### [id number], [id number] ####[facility] LABCLIA [id number] [place] [address] [place]#### ROS1, RET, TOPTO, GNDT1, FSHLNG ####[facility] LIMSCLIA [id number] [place] [address] [place] FINAL PERFORMING LAB Normal [facility] Comment on above: Order Comment: Speci men Type: TISSUE SPECIMENOrdering Facility: [facility] Address: [address] [place] [address] Result Comment: Diag nostic interpretation performed at [facility], [address] [place] [address] CLIA# [id number] Camouflage Assembler: David Marie M.D. Performed By: #### S ####[facility][1] LABORATORYCLIA [id number] [place] [address] [place]#### [id number], [id number] ####[facility] LABCLIA [id number] [address] [place]#### ROS1, RET, TOPTO, GNDT1, FSHLNG ####[facility] LIMSCLIA [id number] [address] [place] GROSS DESCRIPTION Normal [facility] Comment on above: Order Comment: Speci men Type: TISSUE SPECIMENOrdering Facility: [facility] Address: [address] [place] [address] Result Comment: A. L brionna, Right, Wedge Resection Received fresh for intraoperative consultation labeled as right upper lobe wedge is a wedge of lung parenchyma with 1 stapled margin measuring 3.5 x 1.0 x 0.5 cm. The pleural surface appears smooth and glistening. The resection margin is inked blue. Serial sectioning reveals a diffuse firm parenchyma with no definitive lesion. The wedge is entirely submitted as follows: FS A1-sales representative electric service sections perpendicular to margin A2-remainder of specimen, perpendicular to margin Gross examination performed at [facility], [address] [place] [address] CLIA#[id number] [facility] February 09, 2024 8:44 AM B. Lymph Node Formalin labeled as level 9 lymph node are 2 irregular shaped segments of prather firm tissue aggregating to 1.5 x 0.8 x 0.4 cm. The specimen is totally submitted in formalin in 1 cassette. C. Lung, Right, Lobectomy Received in formalin labeled as right upper lobe is a lobectomy specimen measuring 11 x 9 x 3.5 cm and weighing 173 g. The stapled resection margin is inked orange. The pleural surface appears pink-red and smooth. Sectioning reveals a slightly firm area nearest to the pleural surface with focal nodularity. The firm area shows focal emphysema and a cluster of small nodules spanning approximately 5 cm. The area of interest extends within 0.2 cm from the pleura, 3.5 cm from the bronchial vascular margins, and 5.5 cm from the parenchymal resection margin. Dissection reveals 8 possible lymph nodes ranging in size 0.3-1.0 cm. Sander Setter sections are submitted as follows: C1-bronchial vascular margins C2-resection margin, perpendicular C3-roughened field representative/health education possible wedge resection site C4-C9 sales representative electric service sections of firm area of small nodules D67-fkzeteme emphysema C11 uninvolved parenchyma R72-wslg area of parenchymal line of resection C 13-5 lymph nodes C 14-1 lymph node serially sectioned C 15-1 lymph node bisected C16-1 lymph node bisected D. Lymph Node Received in formalin labeled as right level 4 is irregular shaped segment of yellow-red soft tissue measuring 1.0 x 0.5 x 0.3 cm. The specimen is totally submitted in formalin in 1 cassette. E. Lymph Node Received in formalin labeled as right level 7 is an irregular shaped segment of prather-brown soft tissue measuring 0.7 x 0.5 x 0.5 cm. The specimen is totally submitted in formalin in 1 cassette. Gross examination performed at [facility], [address] [place] [address] CLIA#[id number] [facility] February 12, 2024 10:11 AM Performed By: #### S ####[facility][1] LABORATORYCLIA [id number] [place] [address] [place]#### [id number], [id number] ####[facility] LABCLIA [id number] [place] [address] [place]#### ROS1, RET, TOPTO, GNDT1, FSHLNG ####[facility] LIMSCLIA [id number] [place] [address] [place] INTRAOPERATIVE DIAGNOSIS Normal [facility] Comment on above: Order Comment: Speci men Type: TISSUE SPECIMENOrdering Facility: [facility] Address: [address] [place] [address] Result Comment: A. L brionna, Right, Wedge Resection FS A1-right upper lobe wedge biopsy: Adenocarcinoma. (Dr. Marie and Dr. Ibarra) Intraoperative examination performed at [facility], [address] [place] [address] CLIA# [id number] Performed By: #### S ####[facility][1] LABORATORYCLIA [id number] [place] [address] [place]#### [id number], [id number] ####[facility] LABCLIA [id number] [place] [address] [place]#### ROS1, RET, TOPTO, GNDT1, FSHLNG ####[facility] LIMSCLIA [id number] [place] [address] [place] SYNOPTIC REPORT LUNG Normal [facility] Comment on above: Order Comment: Speci men Type: TISSUE SPECIMENOrdering Facility: [facility] Address: [address] [place] [address] Result Comment: LUNG : RESECTION - All Specimens 8th Edition - Protocol posted: 04/20/2022 SPECIMEN Procedure: Lobectomy Specimen Laterality: Right TUMOR Tumor Focality: Single focus Tumor Site: Upper lobe of lung Tumor Size: Total Tumor Size (size of entire tumor): Greatest Dimension (Centimeters): at least 1.5 cm Size of Invasive Component: Greatest Dimension (Centimeters): at least 1.5 cm Histologic Type: Invasive acinar adenocarcinoma Histologic Patterns Present: Acinar: 80 Histologic Grade: G2, moderately differentiated Spread Through Air Spaces (ANITA): Not identified Visceral Pleura Invasion: Not identified Direct Invasion of Adjacent Structures: Not applicable (no adjacent structures present) Treatment Effect: No known presurgical therapy Lymphovascular Invasion: Not identified MARGINS Margin Status for Invasive Carcinoma: All margins negative for invasive carcinoma Closest Margin(s) to Invasive Carcinoma: Bronchial Closest Margin(s) to Invasive Carcinoma: Vascular Closest Margin(s) to Invasive Carcinoma: Parenchymal Distance from Invasive Carcinoma to Closest Margin: 3.5 cm Margin Status for Non-Invasive Tumor: All margins negative for non-invasive tumor REGIONAL LYMPH NODES Lymph Node(s) from Prior Procedures: Not included Regional Lymph Node Status: : All regional lymph nodes negative for tumor Number of Lymph Nodes Examined: 9 Erika Site(s) Examined: 4R: Lower paratracheal Erika Site(s) Examined: 9R: Pulmonary ligament Erika Site(s) Examined: 7: Subcarinal PATHOLOGIC STAGE CLASSIFICATION (pTNM, AJCC 8th Edition) Reporting of pT, pN, and (when applicable) pM categories is based on information available to the pathologist at the time the report is issued. As per the AJCC (Chapter 1, 8th Ed.) it is the managing physician???s responsibility to establish the final pathologic stage based upon all pertinent information, including but potentially not limited to this pathology report. pT Category: pT1b pN Category: pN0 Performed By: #### S ####[facility][1] LABORATORYCLIA [id number] [place], [place] [id number] [place] [address]#### [id number], [id number] ####[facility] LABCLIA [id number] [address] [place]#### ROS1, RET, TOPTO, GNDT1, FSHLNG ####[facility] LIMSCLIA [id number] [address] [place] TARGETED ONCOLOGY PANEL NEXT GENERATION SEQUENCING OTHERon 02-09-2024 TARGETED ONCOLOGY PANEL NEXT GENERATION SEQUENCING OTHER Normal [facility] Comment on above: Order Comment: Speci men Type: TISSUE SPECIMENOrdering Facility: [facility] Address: [address] [place] [address] Result Comment: [facility] Targeted Oncology Panel Laboratory Accession Number: [id number] Case #: [id number] Block #: C16 Sample Type: FFPET % Tumor: 80 CASE SUMMARY: 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 Please note that the detected TP53 variant has been previously reported as a pathogenic germline change in individuals with Li- Fraumeni syndrome. This testing cannot distinguish between germline and somatic variants. If clinically indicated, genetic counseling and germline testing are recommended. *Unless otherwise stated, all assay hotspot regions have been tested (see EVALUATED GENES below) and only positive genes are reported. 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 TP53 encodes for tumor protein p53, a retail special event associate factor involved in DNA damage pathway, cell cycle arrest and apoptosis (PMID: 65502750). Germline mutations occur in cancer predisposition syndrome and Li-Fraumeni syndrome (PMID: 50860949). Somatic missense and loss of function mutations are common in every tumor type and some impart resistance to chemotherapy (PMID: 8466028). Variants of uncertain significance detected: None Detected Regions with coverage <100x: CTNNB1:NM_001904.3:Exon3 chr3:[id number] Range: 76-80; PIK3CA:NM_006218.2:Exon2 chr3:[id number] Range: 96-99; PIK3CA:NM_006218.2:Exon2 chr3:[id number] Range: 98-99; PIK3CA:NM_006218.2:Exon2 chr3:[id number] Range: 93-99; PIK3CA:NM_006218.2:Exon2 chr3:[id number] Range: 97-99; PIK3CA:NM_006218.2:Exon2 chr3:[id number] Range: 98-99; PIK3CA:NM_006218.2:Exon2 chr3:[id number] Range: 98-99; PIK3CA:NM_006218.2:Exon2 chr3:[id number] Range: 96-99; PIK3CA:NM_006218.2:Exon2 chr3:[id number] Range: 97-99; PIK3CA:NM_006218.2:Exon2 chr3:[id number] Range: 95-99; FGFR3:NM_000142.4:Exon16 chr4:[id number] Range: 89-94; METHODOLOGY: Extracted nucleic acid from the specimen, both DNA and RNA, were subjected to separate targeted amplification reactions, using AmpliSeq custom primers designed by [employer] ([employer], [place], [place]). Hotspots and selected fusions in gene regions listed below were sequenced using Illumina ([place], [place]) 2x150 paired-end cycle chemistry. A customized bioinformatics analytical platform was used for read alignment (Genome Build GRCh37/hg19), variant identification and annotation. Single nucleotide variants (SNVs), insertion, deletion (indels) and copy number gain variants are detected by DNA sequencing. Select fusions and aberrant transcripts (EGFR vIII and MET exon 14 skipping transcripts) are detected by RNA sequencing. Variants are classified according to established guidelines (1). Reported results include variants of strong or potential clinical significance and variants of unclear clinical significance. Benign population polymorphisms are not included in the report. Based on validation, the DNA testing delivered an average of >500x coverage and >99% of targeted regions showed over 100x coverage. A minimum coverage depth of 100 reads is required across the entire region of interest; a list of low coverage areas is included in the report as applicable. The test demonstrated 100% sensitivity and 100% specificity in identifying SNVs, indels and copy number gains. The lower limit of detection of this assay is approximately 5% variant allele fraction (VAF) for SNV/indels and 6 copies or greater for copy number gains. Variants below these thresholds may be reported at the discretion of the molecular pathology professional staff if the technical quality of the sequencing is sufficient at that location and the call is unequivocal. Based on validation, the RNA fusion testing averaged >150,000 total reads. The test demonstrated 93% sensitivity and 100% specificity in gene fusion identification compared to NGS sequencing, and 69% sensitivity and 100% specificity compared to FISH of fusion drivers (unknown fusion partner). Overall sensitivity is 78% and accuracy is 99%. The lower limit of detection is approximately 1% of total sequencing reads. LIMITATIONS: Sequence changes outside the analyzed alterations hotspots, including intronic and noncoding regions, will not be identified by this test. Insertions and deletions larger than 20 and 40 bp, respectively, may not be identified by this test. Negative results from specimens for which the percentage of tumor cells is 10% or less should be interpreted with caution. Although variant allele fraction is provided a (more content not included)... Performed By: #### S ####[facility] [id number] [address]#### [id number], [id number] ####[facility] LABCLIA [id number] [place] [address] [place]#### ROS1, RET, TOPTO, GNDT1, FSHLNG ####[facility] LIMSCLIA [id number] [address] [place] XR CHEST 1V FRONTALon 2023 XR CHEST 1V FRONTAL * * *Final Report* * * DATE OF EXAM: Feb 09 2024 4:18PM AKX 5290 - XR CHEST 1V FRONTAL / PROCEDURE REASON: Post-operative/post-proced ure assessment * * * * Physician Interpretation * * * * EXAMINATION: CHEST RADIOGRAPH (SINGLE VIEW AP OR PA) CLINICAL HISTORY: Post-operative/post-proced ure assessment MQ: XC1_5 Comparison: None. RESULT: Lines, tubes, and devices: A right chest tube ending in the right upper chest is in place. Lungs and pleura: There is suggestion of right lung surgery with vague atelectatic changes in the right suprahilar region. No consolidation. No lung mass. No pleural effusion. Cardiomediastinal silhouette: Unremarkable cardiomediastinal silhouette. Other: The visualized bony thorax appears unremarkable. IMPRESSION: Postsurgical changes involving the right lung with a right chest tube in place. Security Business Analyst: BETTY Transcribe Date/Time: Feb 09 2024 7:40P Dictated by : LAINE STILL MD This examination was interpreted and the report reviewed and electronically signed by: LAINE STILL MD on Feb 09 2024 7:41PM EST [id number] Normal [facility] CBC panel Auto (Bld)on 01-28 Erythrocyte distribution width (RBC) [Ratio] 12.6 % Normal 11.5-15.0 [facility] Comment on above: Order Comment: Speci men Type: BLOOD SPECIMENOrdering Facility: [facility] Address: [address] [place] [address] Performed By: #### 5 8410-2 ####[facility][1] LABORATORYCLIA [id number] [address] OF [facility] Hematocrit (Bld) [Volume fraction] 44.5 % Normal 39.0-51.0 [facility] Comment on above: Order Comment: Speci men Type: BLOOD SPECIMENOrdering Facility: [facility] Address: [address] [place] [address] Performed By: #### 5 8410-2 ####[facility][1] LABORATORYCLIA [id number] [address] OF [facility] Hemoglobin (Bld) [Mass/Vol] 14.2 g/dL Normal 13.0-17.0 [facility] Comment on above: Order Comment: Speci men Type: BLOOD SPECIMENOrdering Facility: [facility] Address: [address] [place] [address] Performed By: #### 5 8410-2 ####[facility][1] LABORATORYCLIA [id number] [address] MCH (RBC) [Entitic mass] 28.9 pg Normal 26.0-34.0 [facility] Comment on above: Order Comment: Speci men Type: BLOOD SPECIMENOrdering Facility: [facility] Address: [address] [place] [address] Performed By: #### 5 8410-2 ####[facility][1] LABORATORYCLIA [id number] [address] [place] MCHC (RBC) [Mass/Vol] 31.9 g/dL Normal 30.5-36.0 [facility] Comment on above: Order Comment: Speci men Type: BLOOD SPECIMENOrdering Facility: [facility] Address: [address] [place] [address] Performed By: #### 5 8410-2 ####[facility][1] LABORATORYCLIA [id number] [address] MCV (RBC) [Entitic vol] 90.4 fL Normal 80.0-100.0 [facility] Comment on above: Order Comment: Speci men Type: BLOOD SPECIMENOrdering Facility: [facility] Address: [address] [place] [address] Performed By: #### 5 8410-2 ####[facility][1] LABORATORYCLIA [id number] [address] [place] Nucleated RBC (Bld) [#/Vol] 10*3/uL Normal <0.01 [facility] Comment on above: Order Comment: Speci men Type: BLOOD SPECIMENOrdering Facility: [facility] Address: [address] [place] [address] Performed By: #### 5 8410-2 ####[facility][1] LABORATORYCLIA [id number] [address] [place] Platelet mean volume (Bld) [Entitic vol] 12.2 fL Normal 9.0-12.7 [facility] Comment on above: Order Comment: Speci men Type: BLOOD SPECIMENOrdering Facility: [facility] Address: [address] [place] [address] Performed By: #### 5 8410-2 ####[facility][1] LABORATORYCLIA [id number] [address] [place] Platelets (Bld) [#/Vol] 144 10*3/uL Low 150-400 [facility] Comment on above: Order Comment: Speci men Type: BLOOD SPECIMENOrdering Facility: [facility] Address: [address] [place] [address] Performed By: #### 5 8410-2 ####[facility][1] LABORATORYCLIA [id number] [address] [place] RBC (Bld) [#/Vol] 4.92 10*6/uL Normal 4.20-6.00 [facility] Comment on above: Order Comment: Speci men Type: BLOOD SPECIMENOrdering Facility: [facility] Address: [address] [place] [address] Performed By: #### 5 8410-2 ####[facility][1] LABORATORYCLIA [id number] [address] [place] WBC (Bld) [#/Vol] 5.07 10*3/uL Normal 3.70-11.00 [facility] Comment on above: Order Comment: Speci men Type: BLOOD SPECIMENOrdering Facility: [facility] Address: [address] [place] [address] Performed By: #### 5 8410-2 ####[facility][1] LABORATORYCLIA [id number] [place] [address] [facility] CNOVon 01-29-2024 CNOV Office Visit ([facility]) -- SHARONDA FLORES ([id number]) 1955 M [place] Date Time Provider Department 01/29/24 9:00 AM FRED MCKINNEY During your visit today, we recorded the following information about you: Pulse Blood pressure Weight Height 75/minute 100/60 77.5 kg 1.676 m Fred Mckinney APRN.CNP 01/29/2024 9:11 AM Signed UPDATED HISTORY AND PHYSICAL EXAMINATION SERVICE DATE: 01/29/2024 SERVICE TIME: 8:56 AM The History and Physical (completed in the past 30 days) has been reviewed and the patient has been examined. The contents accurately reflect the patient's condition with the following additions or revisions since the HANDP was completed. HPI: Per Dr. Tadeo on 01/08/24, Mr. Flores is a 68 year old male with past medical history of coronary artery disease status post multiple stents in [address] Tineo, AAA, hypertension, history of smoking cigars, thrombocytopenia, psoriasis presenting to the office for evaluation of a right upper lobe lung nodule. This was identified on screening CT scan of the chest in July, and follow-up CT in October showed that the solid nodule in the right upper lobe lobe of the lung increased in size to 1 cm. PET/CT demonstrated avidity of the nodule with a max SUV of 4.1. Patient obtain PFTs, which are fairly normal, and he underwent bronchoscopy/EBUS and navigational bronchoscopy on 12/15/2023 showing negative mediastinum and nodule pathology showing normal lung tissue with some blood. Patient was referred for surgical lung resection for both diagnosis and treatment. He is a fairly active gentleman with no family history of lung cancer. Patient is scheduled for flexible bronchoscopy, right VATS, right upper lobe wedge resection to send for frozen, cryo nerve block, mediastinal lymph node dissection. If frozen returns as malignancy complete right upper lobe lobectomy to be performed. He presents to the office today for PAT. Interval events: On encounter, pt accompanied alone and reports since seeing Dr. Tadeo on 01/07, there have been no hospitalizations/ED visits . Patient reports the following: Fever/chills: denies Dizziness/lightheadedness/ syncope: denies Chest pain/palpitations: denies SOB/cough: denies Sore throat/nasal congestion/rhinitis: denies N/V/D/C/abdominal pain: denies : denies Leg swelling: denies Paresthesias: denies Hand dominance: right Implantable devices: denies Accept blood products: yes Issues with intubation or anesthesia in the past: denies Examination indicates no changes. LUNGS: Lungs clear to auscultation, Good diaphragmatic excursion CARDIAC: Normal S1 and S2; no rubs, murmurs, or gallops EDEMA: none Anesthesia Findings: Planned anesthesia: general Intubation history: no/yes Difficult airway: no/yes Drug interaction under anesthesia Reviewed the following diagnostic tests: CT chest 12/13/23: IMPRESSION: Stable right lung nodules and groundglass opacities. No definite new nodules identified. Bronchoscopy/EBUS and navigational bronchoscopy on 12/15/2023: FINAL DIAGNOSIS A - Lung, Right Upper Lobe, Transbronchial, Aspirate/Fine Needle Aspirate Negative for malignant cells. Benign bronchial cells. B - Lymph Node, Transbronchial, Aspirate/Fine Needle Aspirate - 11RS Negative for malignant cells. Benign lymphoid sample. C - Lymph Node, Transbronchial, Aspirate/Fine Needle Aspirate - 11RI Negative for malignant cells. Benign lymphoid sample. Component FINAL DIAGNOSIS Right lung, upper lobe, transbronchial biopsy: - Predominantly blood with rare clusters of benign respiratory-type epithelium. PFTs on 12/06/2023 demonstrated an FEV1 of 89% predicted and DLCO of 85% predicted. PET/CT on 12/05/2023 showed increased uptake in the right upper lobe lung nodule with max SUV of 4.1. Provisional Diagnosis/Treatment Plan: * No surgery found * RUL nodule Procedure for diagnosis and treatment: Flexible bronchoscopy, right VATS, right upper lobe wedge resection to send for frozen, cryo nerve block, mediastinal lymph node dissection. If frozen returns as malignancy complete right upper lobe lobectomy to be performed. Scheduled on 02/09/[address] Tadeo The risks, benefits and anticipated outcomes of the procedure, the risks and benefits of the alternatives to the procedure, and the roles and tasks of the personnel to be involved, were discussed with the patient by Dr. Tadeo. Consent to be obtained by Dr. Tadeo. - HAND P updated, which is consistent with recent evaluation performed by Dr. Tadeo - Reviewed all pre-op labs, images and reports; Still needs INR, CMP, CBC, TANDS drawn which I encouraged patient to have done today - Pre-op teaching and consultation provided - CHG 4% solution provided to patient along with instructions - Pre-op nutritional drinks were provided (more content not included)... Normal [facility] Comprehensive metabolic 2000 panelon 01-29-2024 Albumin [Mass/Vol] 4.4 g/dL Normal 3.9-4.9 [facility] Comment on above: Order Comment: Speci men Type: BLOOD SPECIMENOrdering Facility: [facility] Address: [address] [place] [address] Performed By: #### 2 4323-8 ####[facility][1] LABORATORYCLIA [id number] [address] STATES OF [facility] ALP [Catalytic activity/Vol] 78 U/L Normal 38-113 [facility] Comment on above: Order Comment: Speci men Type: BLOOD SPECIMENOrdering Facility: [facility] Address: [address] [place] [address] Performed By: #### 2 4323-8 ####[facility][1] LABORATORYCLIA [id number] [address] [place] ALT With P-5'-P [Catalytic activity/Vol] 18 U/L Normal 10-54 [facility] Comment on above: Order Comment: Speci men Type: BLOOD SPECIMENOrdering Facility: [facility] Address: [address] [place] [address] Performed By: #### 2 4323-8 ####[facility] LABORATORYCLIA [id number] [place] [address] [place] Anion gap [Moles/Vol] 13 mmol/L Normal 8-15 [facility] Comment on above: Order Comment: Speci men Type: BLOOD SPECIMENOrdering Facility: [facility] Address: [address] [place] [address] Performed By: #### 2 4323-8 ####[facility][1] LABORATORYCLIA [id number] [address] [place] AST With P-5'-P [Catalytic activity/Vol] 17 U/L Normal 14-40 [facility] Comment on above: Order Comment: Speci men Type: BLOOD SPECIMENOrdering Facility: [facility] Address: [address] [place] [address] Performed By: #### 2 4323-8 ####[facility][1] LABORATORYCLIA [id number] [place] [address] [place] Bilirubin [Mass/Vol] 0.5 mg/dL Normal 0.2-1.3 [facility] Comment on above: Order Comment: Speci men Type: BLOOD SPECIMENOrdering Facility: [facility] Address: [address] [place] [address] Performed By: #### 2 4323-8 ####[facility] LABORATORYCLIA [id number] [address] [place] Calcium [Mass/Vol] 9.3 mg/dL Normal 8.5-10.2 [facility] Comment on above: Order Comment: Speci men Type: BLOOD SPECIMENOrdering Facility: [facility] Address: [address] [place] [address] Performed By: #### 2 4323-8 ####[facility] LABORATORYCLIA [id number] [place] [address] [place] Chloride [Moles/Vol] 104 mmol/L Normal 98-107 [facility] Comment on above: Order Comment: Speci men Type: BLOOD SPECIMENOrdering Facility: [facility] Address: [address] [place] [address] Performed By: #### 2 4323-8 ####[facility][1] LABORATORYCLIA [id number] [address] [place] CO2 [Moles/Vol] 24 mmol/L Normal 22-30 [facility] Comment on above: Order Comment: Speci men Type: BLOOD SPECIMENOrdering Facility: [facility] Address: [address] [place] [address] Performed By: #### 2 4323-8 ####[facility]PITALCLIA [id number] [address] Creatinine [Mass/Vol] 1.04 mg/dL Normal 0.73-1.22 [facility] Comment on above: Order Comment: Speci men Type: BLOOD SPECIMENOrdering Facility: [facility] Address: [address] [place] [address] Performed By: #### 2 4323-8 ####[facility][1] LABORATORYCLIA [id number] [address] Creatinine and Glomerular filtration rate.predicted panel (S/P/Bld) 78 mL/min/1.73m??? Normal >=60 [facility] Comment on above: Order Comment: Speci men Type: BLOOD SPECIMENOrdering Facility: [facility] Address: [address] [place] [address] Result Comment: Piedad mated Glomerular Filtration Rate (eGFR) is calculated using the 2020 CKD-EPI creatinine equation. This equation utilizes serum creatinine, sex, and age as parameters. The creatinine assay has traceable calibration to isotope dilution-mass spectrometry. Refer to KDIGO guidelines for clinical interpretation. In patients with unstable renal function, e.g. those with acute kidney injury, the eGFR may not accurately reflect actual GFR. Performed By: #### 2 4323-8 ####[facility][1] LABORATORYCLIA [id number] [place] [address] [place] Glucose [Mass/Vol] 84 mg/dL Normal 74-99 [facility] Comment on above: Order Comment: Speci men Type: BLOOD SPECIMENOrdering Facility: [facility] Address: [address] [place] [address] Result Comment: The [place] Diabetes Association (ADA) provides guidance for cutoff values for fasting glucose and random glucose. The ADA defines fasting as no caloric intake for at least 8 hours. Fasting plasma glucose results between 100 to 125 mg/dL indicate increased risk for diabetes (prediabetes). Fasting plasma glucose results greater than or equal to 126 mg/dL meet the criteria for diagnosis of diabetes. In the absence of unequivocal hyperglycemia, results should be confirmed by repeat testing. In a patient with classic symptoms of hyperglycemia or hyperglycemic crisis, random plasma glucose results greater than or equal to 200 mg/dL meet the criteria for diagnosis of diabetes. Reference: Standards of Medical Care in Diabetes 2016, [place] [employer]. Diabetes Care. 2016.39(Suppl 1). Performed By: #### 2 4323-8 ####[facility][1] LABORATORYCLIA [id number] [place] [address] [place] Potassium [Moles/Vol] 4.2 mmol/L Normal 3.7-5.1 [facility] Comment on above: Order Comment: Charlsei men Type: BLOOD SPECIMENOrdering Facility: [facility] Address: [address] [place] [address] Performed By: #### 2 4323-8 ####[facility][1] LABORATORYCLIA [id number] [place] [address] [place] Protein [Mass/Vol] 7.3 g/dL Normal 6.3-8.0 [facility] Comment on above: Order Comment: Speci men Type: BLOOD SPECIMENOrdering Facility: [facility] Address: [address] [place] [address] Performed By: #### 2 4323-8 ####[facility][1] LABORATORYCLIA [id number] [place] [address] [place] Sodium [Moles/Vol] 141 mmol/L Normal 136-144 [facility] Comment on above: Order Comment: Speci men Type: BLOOD SPECIMENOrdering Facility: [facility] Address: [address] [place] [address] Performed By: #### 2 4323-8 ####[facility][1] LABORATORYCLIA [id number] [place] [id number] [place] [facility] Urea nitrogen [Mass/Vol] 16 mg/dL Normal 9-24 [facility] Comment on above: Order Comment: Speci men Type: BLOOD SPECIMENOrdering Facility: [facility] Address: [address] [place] [address] Performed By: #### 2 4323-8 ####[facility][1] LABORATORYCLIA [id number] [address] PT panel Coag (PPP)on 2023 INR Coag (PPP) [Relative time] 1.0 {INR} Normal 0.9-1.3 [facility] Comment on above: Order Comment: Speci men Type: BLOOD SPECIMENOrdering Facility: [facility] Address: [address] [place] [address] Result Comment: Whitney min K Antagonist (VKA) Therapeutic Range: INR 2 to 3 (Target INR of 2.5) Note: For patients treated with VKA drugs, such as warfarin, the [place] [employer] 2012 Guideline recommends a therapeutic INR range of 2 to 3 (target INR of 2.5). This recommendation includes high-risk patients with antiphospholipid syndrome with previous arterial or venous thromboembolism, current-generation mechanical or bioprosthetic aortic heart valve replacement. Note: Patients with mechanical aortic valve replacement and additional risk factors for thromboembolic events (atrial fibrillation, previous thromboembolism, LV dysfunction, hypercoagulable conditions) or an older generation mechanical AVR (i.e., ball in-Cage) or any mechanical MVR should have a INR therapeutic range of 2.5 to 3.5 (target INR of 3). Obinna GH, et al. Chest 2012, 141:7S-47S January RA et al. [facility] 2017, 70: 252-289 Performed By: #### 3 4528-0 ####[facility][1] LABORATORYCLIA [id number] [address] [place] PT Coag (PPP) [Time] 10.9 s Normal 9.7-13.0 [facility] Comment on above: Order Comment: Speci men Type: BLOOD SPECIMENOrdering Facility: [facility] Address: [address] [place] [address] Performed By: #### 3 4528-0 ####[facility][1] LABORATORYCLIA [id number] [address] TYPE AND SCREEN,30 DAYon ABO AB Normal [facility] Comment on above: Order Comment: Speci men Type: BLOOD SPECIMENOrdering Facility: [facility] Address: [address] [place] [address] Performed By: #### T SCR30 ####[facility][1] BLOOD BANKCLIA [id number] [address] HISTORICAL AB SCR STATUS Negative Normal [facility] Comment on above: Order Comment: Speci men Type: BLOOD SPECIMENOrdering Facility: [facility] Address: [address] [place] [address] Performed By: #### T SCR30 ####[facility][1] BLOOD BANKCLIA [id number] [address] Rh Nom (Bld) Positive Normal [facility] Comment on above: Order Comment: Speci men Type: BLOOD SPECIMENOrdering Facility: [facility] Address: [address] [place] [address] Performed By: #### T SCR30 ####[facility][1] BLOOD BANKCLIA [id number] [address] CNPGisele 01-18-2024 CNPN Telephone (AGVASACC) -- SHARONDA FLORES ([id number]) 1955 M [place] Date Time Provider Department 01/18/24 NADEGE TADEO AGVASACC During your visit today, we recorded the following information about you: Conrado Yao MA 01/18/2024 2:18 PM Signed Left message requesting call back to discuss scheduling lung surgery with Dr. Tadeo. Currently schedule for 02/13/24, however there are sooner dates available. Conrado Yao MA 01/19/2024 9:16 AM Signed Pt return my call and chose 02/09/24 for surgery. Office visit for presurgical instructions 01/29/24 9am. Pt will go for labs after appt. No fasting required. Bronchoscopy, right VATS RUL wedge resection frozen section, mediastinal lymph node dissection, cyro nerve block 02/09/24 arrival time 6am procedure time 8am @ [facility]. Allergies As of Date: 01/18/2024 Noted Allergy Reaction PENICILLINS 05/23/2008 4 - Hives Date Reviewed: 01/08/2024 Reviewed by: Nadege Tadeo MD - Fully Assessed Reason for Visit: Schedule Surgery [1330] Orders [681] Primary Visit Diagnosis:Nodule of upper lobe of right lung [R91.1] Other Visit Diagnoses:Preoperative testing [Z01.818] Shortness of breath [R06.02] Order(s):COMPLETE BLOOD COUNT [SQCBC] Order #: [id number] FUTURE TYPE AND SCREEN,30 DAY [APPBNB58] Order #: [id number] FUTURE COMPREHENSIVE METABOLIC PANEL [SQCMP] Order #: [id number] FUTURE PROTHROMBIN TIME [SQPT] Order #: [id number] FUTURE Prescriptions as of 01/19/2024 - atorvastatin (LIPITOR) 80 mg tablet Take 1 tablet by mouth daily at bedtime. For cholesterol. - ezetimibe (ZETIA) 10 mg tablet Take 1 tablet by mouth once daily. - nitroglycerin sublingual (NITROQUICK) 0.4 mg SL tablet Dissolve 1 tablet under the tongue every 5 minutes as needed. - Aspirin 81 mg Tab Take 81 mg by mouth once daily. - carvedilol (COREG) 6.25 mg tablet Take 6.25 mg by mouth once daily. - lisinopril (ZESTRIL) 5 mg tablet Take 5 mg by mouth once daily. Problem List As Of Date 01/18/2024 Noted Resolved PERS HX PENICILLIN ALLERGY [Z88.0] 06/03/2008 Class: Chronic TOBACCO USE DISORDER [F17.200] 06/03/2008 SPRAIN SHOULDER/ARM NOS [[id number]] 06/03/2008 JOINT PAIN-ANKLE [M25.579] 06/03/2008 HERPES SIMPLEX NOS [B00.9] 06/03/2008 MIXED HYPERLIPIDEMIA [E78.2] 07/02/2008 SCREENING MAL NEOP-COLON [Z12.11] 10/08/2008 BENIGN NEOPLASM LG BOWEL [D12.6] 10/08/2008 Coronary artery disease involving chilkoot lacey* Essential hypertension [I10] Thrombocytopenia (HCC) [D69.6] Tinnitus of both ears [H93.13] Psoriasis [L40.9] Abdominal aortic aneurysm (AAA) without rupture*06/08/2021 At risk for sleep apnea [Z91.89] 11/29/20[address] lung nodules on CT [R91.8] 11/09/2023 Lung nodule [R91.1] 12/15/2023 Encounter Status:Closed by FRED MCKINNEY on 01/19/24 [facility] CNPGisele 01-09-2024 CNPN Telephone (AGVASPocket Concierge) -- SHARONDA FLORES ([id number]) 1955 M [place] Date Time Provider Department 01/09/24 NADEGE TADEO During your visit today, we recorded the following information about you: Conrado Yao MA 01/09/2024 3:36 PM Signed Business Division Chair Dr. Tineo [phone] fax [phone] cardiac clearance request faxed on 01/09/24. Bronchoscopy, right VATS RUL wedge resection frozen section, mediastinal lymph node dissection, cyro nerve block 02/13/24 Conrado Yao MA 01/18/2024 2:14 PM Signed Received cardiac clearance from Dr. Tineo. Form scanned into. Allergies As of Date: 01/09/2024 Noted Allergy Reaction PENICILLINS 05/23/2008 4 - Hives Date Reviewed: 01/08/2024 Reviewed by: Nadege Tadeo MD - Fully Assessed Reason for Visit: Cardiac Clearance [4105] Cmt: Received Primary Visit Diagnosis:Nodule of right lung [R91.1] Order(s):SURGICAL REQUEST - ELECTIVE (02/2020) [[id number]] Order #: [id number]: 1 Prescriptions as of 01/18/2024 - atorvastatin (LIPITOR) 80 mg tablet Take 1 tablet by mouth daily at bedtime. For cholesterol. - ezetimibe (ZETIA) 10 mg tablet Take 1 tablet by mouth once daily. - nitroglycerin sublingual (NITROQUICK) 0.4 mg SL tablet Dissolve 1 tablet under the tongue every 5 minutes as needed. - Aspirin 81 mg Tab Take 81 mg by mouth once daily. - carvedilol (COREG) 6.25 mg tablet Take 6.25 mg by mouth once daily. - lisinopril (ZESTRIL) 5 mg tablet Take 5 mg by mouth once daily. Problem List As Of Date 01/09/2024 Noted Resolved PERS HX PENICILLIN ALLERGY [Z88.0] 06/03/2008 Class: Chronic TOBACCO USE DISORDER [F17.200] 06/03/2008 SPRAIN SHOULDER/ARM NOS [[id number]] 06/03/2008 JOINT PAIN-ANKLE [M25.579] 06/03/2008 HERPES SIMPLEX NOS [B00.9] 06/03/2008 MIXED HYPERLIPIDEMIA [E78.2] 07/02/2008 SCREENING MAL NEOP-COLON [Z12.11] 10/08/2008 BENIGN NEOPLASM LG BOWEL [D12.6] 10/08/2008 Coronary artery disease involving chilkoot lacey* Essential hypertension [I10] Thrombocytopenia (HCC) [D69.6] Tinnitus of both ears [H93.13] Psoriasis [L40.9] Abdominal aortic aneurysm (AAA) without rupture*06/08/2021 At risk for sleep apnea [Z91.89] 11/29/[address] lung nodules on CT [R91.8] 11/09/2023 Lung nodule [R91.1] 12/15/2023 Encounter Status:Closed by BISHNU YAO on 01/18/24 Normal [facility] CNCOon 01-08-2024 CNCO Letter Text Normal [facility] CNOVon 01-08-2024 CNOV Office Visit (AGVASA CC) -- SHARONDA FLORES ([id number]) 1955 [facility] Date Time Provider Department 01/08/24 1:00 PM NADEGE TADEO During your visit today, we recorded the following information about you: Pulse Respiration Blood pressure Weight 68/minute 16/minute 120/64 78.5 kg Height 1.651 m Nadege Tadeo MD 01/08/2024 1:49 PM Signed PRIMARY CARE PHYSICIAN: Tima Tello [facility] [place] [phone] Subjective Chief Complaint No chief complaint on file. HISTORY OF PRESENT ILLNESS: Mr. Flores is a 68 year old male with past medical history of coronary artery disease status post multiple stents in [address] Tineo, AAA, hypertension, history of smoking cigars, thrombocytopenia, psoriasis presenting to the office for evaluation of a right upper lobe lung nodule. This was identified on screening CT scan of the chest in July, and follow-up CT in October showed that the solid nodule in the right upper lobe lobe of the lung increased in size to 1 cm. PET/CT demonstrated avidity of the nodule with a max SUV of 4.1. Patient obtain PFTs, which are fairly normal, and he underwent bronchoscopy/EBUS and navigational bronchoscopy on 12/15/2023 showing negative mediastinum and nodule pathology showing normal lung tissue with some blood. Patient was referred for surgical lung resection for both diagnosis and treatment. He is a fairly active gentleman with no family history of lung cancer. Review of Systems Constitutional: Negative for chills, fever, malaise/fatigue and weight loss. HENT: Negative for sore throat. Eyes: Negative for blurred vision and double vision. Respiratory: Negative for cough, hemoptysis, shortness of breath, wheezing and stridor. Cardiovascular: Negative for chest pain, palpitations and leg swelling. Gastrointestinal: Negative for abdominal pain, melena, nausea and vomiting. Genitourinary: Negative for flank pain and hematuria. Musculoskeletal: Negative for myalgias. Skin: Negative for rash. Neurological: Negative for dizziness, seizures, loss of consciousness and weakness. Endo/Heme/Allergies: Does not bruise/bleed easily. Objective PAST MEDICAL HISTORY Diagnosis Date Abdominal aortic aneurysm (AAA) without rupture (HCC) 3 x 3.1 cm 05/2021, repeat 1 year. Benign neoplasm of colon Coronary artery disease involving chilkoot coronary artery of chilkoot heart without angina pectoris Dr. Tineo Essential hypertension History of tobacco use Multiple lung nodules on CT 11/09/2023 PET scan ordered Psoriasis [facility] Thrombocytopenia (HCC) Tinnitus of both ears PAST SURGICAL HISTORY Procedure Laterality Date COLONOSCOPY FLX DX W/COLLJ SPEC WHEN PFRMD 10/08/2008 Colonoscopy COLONOSCOPY FLX DX W/COLLJ SPEC WHEN PFRMD 08/03/2021 repeat in 10 years EXTRACTION, ERUPTED TOOTH OR EXPOSED ROOT (ELEVATION AND/OR FORCEPS REMOVAL) wisdom HEART CATHETERIZATION 2012 stent x 4 HEART SURGERY HX PAST SURGICAL HISTORY OF age 6 appendectomy, no rupture PAST SURGICAL HISTORY OF Right 09/2021 cyst removal from chest wall TONSILLECTOMY HX TONSILLECTOMY PRIMARY/SECONDARY tonsillectomy FAMILY HISTORY Problem Relation Age of Onset Breast Cancer Mother Heart Father details uncertain; ? h/o rheumatic fever Stroke Father details uncertain No Known Problems Brother No Known Problems Daughter No Known Problems Daughter No Known Problems Son No Known Problems Son No Known Problems Maternal Grandmother No Known Problems Maternal Grandfather No Known Problems Paternal Grandmother No Known Problems Paternal Grandfather Diabetes Other none Colon Cancer Other none Prostate Cancer Other none Anesthesia Problems No Family History Social History Tobacco Use Smoking status: Former Packs/day: 1.50 Years: 25.00 Additional pack years: 0.00 Total pack years: 37.50 Types: Cigarettes Quit date: 01/24/2011 Years since quittin.9 Smokeless tobacco: Never Vaping Use Vaping Use: Never used Substance Use Topics Alcohol use: Not Currently Drug use: Yes Types: Marijuana Comment: Twice a month ALLERGIES Allergen Reactions Penicillins Hives Physical Examination Vitals:There were no vitals taken for this visit. Last 2 Encounter Wt Readings: Date: Wt: 12/29/2023 178 lb (80.7 kg) 12/08/2023 178 lb 3.2 oz (80.8 kg) Physical Exam HENT: Head: Normocephalic and atraumatic. Eyes: Pupils: Pupils are equal, round, and reactive to light. Neck: Thyroid: No thyromegaly. Trachea: No tracheal deviation. Cardiovascular: Rate and Rhythm: Normal rate and regular rhythm. Heart sounds: Normal heart sounds. No murmur heard. Pulmonary: Effort: Pulmonary effort is normal. No accessory muscle usage or respiratory distress. (more content not included)... Normal [facility]NPNon [facility] -- SHARONDA FLORES ([id number]) 1955 M [place] Date Time Provider Department 12/22/23 CHARO TSAI [facility] During your visit today, we recorded the following information about you: Charo Tsai APRN.CNP 12/27/2023 11:28 AM Addendum Spoke with patient and the following results were discussed: Cytology/pathology bronchoscopy 12/15/2023 Results Negative for malignancy Recommendations: Consult RAD ONC and thoracic surgery due to nodule increasing in size and suspicious for malignancy. PET avid 10.2 mm RUL lung nodule. Increased in size form 08/03/2023 CT Chest when it measured 7x7 mm. Case was reviewed with Dr. Fuentes. Patient verbalized understanding of the results and had no other questions or concerns at this time. Charo Tsai APRN.[facility] December 22, 2023 1:13 PM Allergies As of Date: 12/22/2023 Noted Allergy Reaction PENICILLINS 05/23/2008 4 - Hives Date Reviewed: 12/15/2023 Reviewed by: Charlene Estrada RN - Fully Assessed Reason for Visit: Results [95] Primary Visit Diagnosis:Multiple lung nodules [R91.8] Other Visit Diagnosis:Former tobacco use [Z87.891] Order(s):CONSULT TO CARDIOTHORACIC SURGERY [2087360] Order #: [id number]: 1 FUTURE RAD/ONC CONSULT [9037] Order #: [id number]: 1 FUTURE Prescriptions as of 12/28/2023 - atorvastatin (LIPITOR) 80 mg tablet Take 1 tablet by mouth daily at bedtime. For cholesterol. - ezetimibe (ZETIA) 10 mg tablet Take 1 tablet by mouth once daily. - nitroglycerin sublingual (NITROQUICK) 0.4 mg SL tablet Dissolve 1 tablet under the tongue every 5 minutes as needed. - Aspirin 81 mg Tab Take 81 mg by mouth once daily. - carvedilol (COREG) 6.25 mg tablet Take 6.25 mg by mouth once daily. - lisinopril (ZESTRIL) 5 mg tablet Take 5 mg by mouth once daily. Problem List As Of Date 12/22/2023 Noted Resolved PERS HX PENICILLIN ALLERGY [Z88.0] 06/03/2008 Class: Chronic TOBACCO USE DISORDER [F17.200] 06/03/2008 SPRAIN SHOULDER/ARM NOS [[id number]] 06/03/2008 JOINT PAIN-ANKLE [M25.579] 06/03/2008 HERPES SIMPLEX NOS [B00.9] 06/03/2008 MIXED HYPERLIPIDEMIA [E78.2] 07/02/2008 SCREENING MAL NEOP-COLON [Z12.11] 10/08/2008 BENIGN NEOPLASM LG BOWEL [D12.6] 10/08/2008 Coronary artery disease involving chilkoot lacey* Essential hypertension [I10] Thrombocytopenia (HCC) [D69.6] Tinnitus of both ears [H93.13] Psoriasis [L40.9] Abdominal aortic aneurysm (AAA) without rupture*06/08/2021 At risk for sleep apnea [Z91.89] 11/29/[address] nodules on CT [R91.8] 11/09/2023 Lung nodule [R91.1] 12/15/2023 Encounter Status:Closed by CHARO TSAI on 12/28/23 [facility] ANES POSTPROC EVALon 024 ANES POSTPROC EVAL HNO ID: [id number] Author: ANTONIO MCCLURE MD Service: Anesthesiology Author Type: Anesthesiologist Type: Anesthesia Postprocedure Evaluation Filed: 12/15/2023 12:57 Note Text: POST ANESTHESIA EVALUATION NOTE : 1955 Procedure Summary Date: 12/15/23 Room / Location: GI TRAVEL CART / GI Anesthesia Start: 741 Anesthesia Stop: 1030 Procedures: FLEX BRONCHOSCOPY W/ NAVIGATIONAL IMAGE GUIDANCE (Lung) BRONCHOSCOPY FLEXIBLE WITH C-ARM (Lung) BRONCHOSCOPY,RIGID/FLEXIBL E W/ FLUORO,W/ENDOBRONCHIAL ULTRASOUND (EBUS) GUIDED TRANSTRACHEAL/ TRANSBRONCHIAL ASPIRATION/BIOPSY,1 OR 2 MEDIASTINAL AND/OR HILAR LYMPH NODE STATIONS/STRUCTURES (Lung) Diagnosis: Lung nodule (Lung nodule [R91.1]) Surgeons: Tima Guardado MD Responsible Provider: Antonio Mcclure MD Anesthesia Type: general ASA Status: 4 Anesthesia Type: general Airway Type: ETT Last Vitals Vitals Value Taken Time BP 133/76 12/15/23 1121 Temp 36.2 ?C (97.2 ?F) 12/15/23 1121 HR SpO2 62 12/15/23 1112 Resp 14 12/15/23 1121 SpO2 95 % 12/15/23 1121 Vitals shown include unfiled device data. Post Anesthesia Patient Status Patient Evaluation: PACU. PACU/ICU Patient Condition: stable. Anticipated Disposition: phase 2 then home. Neurological Status: aware and responsive. Pulmonary Status: breathing comfortably on room air Airway Control: returned to baseline unsupported. Cardiovascular Status: stable. Pain Management: clinically adequate Postoperative Hydration: acceptable. Intraoperative Events: no significant anesthesia events Post Operative Nausea/Vomiting Status: no significant post operative nausea or vomiting Recommendation: continue current plan of care. Anesthesia Observations No Documentation SIGNATURE: Antonio Mcclure MD PATIENT NAME: Sharonda Flores DATE: December 15, 2023 TIME: 12:57 PM CSN: [id number] [facility] ANES PRE-OPon 12-15-2023 ANES PRE-OP HNO ID: [id number] Author: ANTONIO MCCLURE MD Service: Anesthesiology Author Type: Anesthesiologist Type: Anesthesia Preprocedure Evaluation Filed: 12/15/2023 07:07 Note Text: ANESTHESIOLOGY DAY OF SURGERY NOTE : 1955 Procedure Information Date/Time: 12/15/23 0730 Procedures: FLEX BRONCHOSCOPY W/ NAVIGATIONAL IMAGE GUIDANCE (Lung) BRONCHOSCOPY FLEXIBLE WITH C-ARM (Lung) BRONCHOSCOPY,RIGID/FLEXIBL E W/ FLUORO,W/ENDOBRONCHIAL ULTRASOUND (EBUS) GUIDED TRANSTRACHEAL/ TRANSBRONCHIAL ASPIRATION/BIOPSY,1 OR 2 MEDIASTINAL AND/OR HILAR LYMPH NODE STATIONS/STRUCTURES (Lung) Location: GI TRAVEL CART / GI Surgeons: Tima Guardado MD Estimated body mass index is 28.04 kg/m? as calculated from the following: Height as of 12/06/23: 169.8 cm (5' 6.85). Weight as of 12/08/23: 80.8 kg (178 lb 3.2 oz). Most recent hematocrit and potassium results: Hematocrit 42.7 11/29/2023 Potassium 4.3 11/29/2023 Relevant Problems CARDIO (+) Abdominal aortic aneurysm (AAA) without rupture (HCC) (+) Coronary artery disease involving chilkoot coronary artery of chilkoot heart without angina pectoris (+) Essential hypertension I - PHYSICAL EVALUATION AIRWAY Patient intubated: No. Tracheostomy tube not present Mallampati: II. TM distance: >3 FB. Neck ROM: full ROM without neurological symptoms. Mouth opening: adequate. Short neck: no. Thick neck: no DENTAL Dental findings: teeth intact. Additional exam findings: yes. CARDIOVASCULAR Rate: normal PULMONARY Breath sounds clear to auscultation. II - ANESTHESIA PLAN ASA Score: 4 Anesthetic Plan: general Airway type: ETT The patient is not a current smoker. NPO Status: adequate Beta Aric Monitoring Plan Monitoring plan: standard ASA. Post Procedure Analgesic Plan Postoperative analgesic plan: multimodal analgesia. Informed Consent Anesthetic risks, benefits, alternatives, personnel and consent discussed: yes. Patient / Responsible Democrat agrees to proceed: yes Patient / Surrogate agrees to blood products: Yes DNR status not reviewed with patient and/or family prior to surgery. Significant changes in the patient condition since the History and Physical, not otherwise documented in primary service progress note: no. Potential Anesthesia issues that may suggest increased risk of complications or contraindication to planned procedure: none. Vitals Value Taken Time BP 131/66 12/15/23 0641 Pulse 60 12/15/23 0641 Resp 18 12/15/23 0641 Temp 36.2 ?C (97.2 ?F) 12/15/23 0641 SpO2 97 % 12/15/23 06 No current facility-administered medications on file as of 12/15/2023. Outpatient Medications as of 12/15/2023 Medication Sig Aspirin 81 mg Tab Take 81 mg by mouth once daily. carvedilol (COREG) 6.25 mg tablet Take 6.25 mg by mouth once daily. lisinopril (ZESTRIL) 5 mg tablet Take 5 mg by mouth once daily. nitroglycerin sublingual (NITROQUICK) 0.4 mg SL tablet Dissolve 1 tablet under the tongue every 5 minutes as needed. I have interviewed and examined the patient. I have reviewed the medical record and/or the pre-anesthesia evaluation, pertinent labs, and test results. This contains updated information obtained within 48 hours of Surgery/Procedure. SIGNATURE: Antonio Mcclure MD PATIENT NAME: Sharonda Flores DATE: December 15, 2023 TIME: 7:06 AM CSN: [id number] Normal [facility] CYTOLOGY NON-GYNon 4 ADEQUACY INTERPRETATION Normal [facility] Comment on above: Order Comment: Speci men Type: SPECIMEN OBTAINED BY ASPIRATIONOrdering Facility: [facility] Address: [address] [place] [address] Result Comment: A: # 1-5 Non-diagnostic B: #1-4 Non-diagnostic #5 Lymphoid sample C: #1,[address] Dorota Lovett / Deann Corbett Each letter in the above intra-procedural assessment refers to a unique site. The specific site is indicated in the final diagnosis portion of the report. Each number in this assessment references a discrete evaluation episode. Intra-procedural assessment performed at [facility], [address] [place] [address] Performed By: #### C YTONON ####[facility] [id number] [address] CASE REPORT Normal [facility] Comment on above: Order Comment: Speci men Type: SPECIMEN OBTAINED BY ASPIRATIONOrdering Facility: [facility] Address: [address] [place] [address] Result Comment: [facility] Cytology Report Case: [id number] Authorizing Provider: Tima Guardado MD Collected: 12/15/2023 07:49 AM Ordering Location: [facility] Received: 12/15/2023 10:38 AM Endoscopy - ENDO Pathologist: Sheng Lovett MD Specimens: A) - Lung, Right Upper Lobe, Transbronchial B) - Lymph Node, Transbronchial, 11RS C) - Lymph Node, Transbronchial, 11RI Performed By: #### C YTONON ####[facility] [id number] [address] FINAL DIAGNOSIS Normal [facility] Comment on above: Order Comment: Speci men Type: SPECIMEN OBTAINED BY ASPIRATIONOrdering Facility: [facility] Address: [address] [place] [address] Result Comment: A - Lung, Right Upper Lobe, Transbronchial, Aspirate/Fine Needle Aspirate Negative for malignant cells. Benign bronchial cells. B - Lymph Node, Transbronchial, Aspirate/Fine Needle Aspirate - 11RS Negative for malignant cells. Benign lymphoid sample. C - Lymph Node, Transbronchial, Aspirate/Fine Needle Aspirate - 11RI Negative for malignant cells. Benign lymphoid sample. The following cell blocks were associated with this case: A1 Cell Block, Alcohol Fixed B1 Cell Block, Alcohol Fixed C1 Cell Block, Alcohol Fixed Performed By: #### C YTONON ####[facility] [id number] [address] FINAL PERFORMING LAB Normal [facility] Comment on above: Order Comment: Speci men Type: SPECIMEN OBTAINED BY ASPIRATIONOrdering Facility: [facility] Address: [address] [place] [address] Result Comment: Tech nical component, machine maintenance servicer screening performed at [facility], [address] [place] [address] CLIA# [id number] Diagnostic interpretation performed at [facility], [address] [place] [address] CLIA# [id number] Camouflage Assembler: Dewayne Bray M.D. Performed By: #### C YTONON ####[facility] [id number] [address] [place] GROSS DESCRIPTION Normal [facility] Comment on above: Order Comment: Speci men Type: SPECIMEN OBTAINED BY ASPIRATIONOrdering Facility: [facility] Address: [address] [place] [address] Result Comment: A. L brionna, Right Upper Lobe, Transbronchial 30cc cloudy red CytoLyt with material. ThinPrep and Cell Block prepared and 10 smears (5 air dried and 5 fixed). B. Lymph Node, Transbronchial 30 cc hazy red CytoLyt with material. ThinPrep and Cell Block prepared and 10 smears (5 air dried and 5 fixed). C. Lymph Node, Transbronchial 30 cc cloudy red CytoLyt with material. ThinPrep and Cell Block prepared and 4 smears (2 air dried and 2 fixed). Performed By: #### C YTONON ####[facility] [id number] [address] [place] ORDER COMMENT Normal [facility] Comment on above: Order Comment: Speci men Type: SPECIMEN OBTAINED BY ASPIRATIONOrdering Facility: [facility] Address: [address] [place] [address] Result Comment: Pre- op diagnosis: Lung nodule [R91.1] Performed By: #### C YTONON ####[facility]ORYCLIA [id number] [place] [address] [place] NURSING PROGon 12-15-2023 NURSING PROG HNO ID: [id number] Author: CHARLENE ESTRADA RN Service: Nursing Author Type: Registered Nurse Type: Nursing Progress Note Filed: 12/15/2023 11:15 Note Text: PATIENT EDUCATION TOPIC: PROCEDURE / SURGERY: Post-op Teaching: Med Administration, Symptom Management, and Wound Care PATIENT NAME: Sharonda Flores PATIENT LOCATION: [facility] ENDO POOL/[facility] ENDO POOL READINESS TO LEARN COGNITIVE ABILITY: Alert and oriented MOTIVATION TO LEARN: Interested FAMILY SUPPORT: High - Very involved in pt care INSTRUCTION PROVIDED TO: Patient and family member PATIENT LEARNS BEST BY: Individual Instruction Written Instruction - Hand-outs Verbal Instruction FACTORS AFFECTING LEARNING: None PHYSICAL LIMITATIONS AFFECTING LEARNING: None LEARNING RESPONSE DIAGNOSIS: ADULT: Well Adult PATIENT/FAMILY RESPONSE: Verbalizes understanding of: POST-OPERATIVE INSTRUCTIONS-Correct actions to take to reduce postoperative complications METHOD OF INSTRUCTION: Individual instruction Written instruction/Handouts Verbal instruction FOLLOW-UP PLAN: Patient instructed to call with any further issues Follow-up with Primary Care INSTRUCTIONAL AIDS USED: NA SUPPLEMENTAL MATERIAL PROVIDED TO PATIENT: None REFERRAL (RECOMMENDATION): None Electronically Signed By: Charlene Estrada [facility] NURSING PROG HNO ID: [id number] Author: CARITO SOUSA RN Service: Nursing Author Type: Registered Nurse Type: Nursing Progress Note Filed: 12/15/2023 06:16 Note Text: PATIENT EDUCATION TOPIC: PROCEDURE / SURGERY: Pre-op Teaching: Logistics Protocols PATIENT NAME: Sharonda Flores PATIENT LOCATION: [facility] ENDO POOL/[facility] ENDO POOL READINESS TO LEARN COGNITIVE ABILITY: Alert and oriented MOTIVATION TO LEARN: Eager Interested FAMILY SUPPORT: None - Unavailable/disinterested INSTRUCTION PROVIDED TO: Patient PATIENT LEARNS BEST BY: Verbal Instruction FACTORS AFFECTING LEARNING: None PHYSICAL LIMITATIONS AFFECTING LEARNING: None LEARNING RESPONSE DIAGNOSIS: ADULT: Well Adult PATIENT/FAMILY RESPONSE: Verbalizes understanding of: PRE-OPERATIVE INSTRUCTIONS-Correct action to take to follow pre-operative instructions PRE-PROCEDURE INSTRUCTIONS-Correct action to take to follow pre-procedure instructions METHOD OF INSTRUCTION: Verbal instruction FOLLOW-UP PLAN: Complete - No need for follow-up INSTRUCTIONAL AIDS USED: NA SUPPLEMENTAL MATERIAL PROVIDED TO PATIENT: None REFERRAL (RECOMMENDATION): None Electronically Signed By: Carito Sousa [facility] SURGICAL PATHOLOGYon 024 CASE REPORT [facility] Comment on above: Order Comment: Speci men Type: TISSUE SPECIMENOrdering Facility: [facility] Address: [address] [place] [address] Result Comment: Surg ical Pathology Report Case: [id number] Authorizing Provider: Tima Guardado MD Collected: 12/15/2023 08:33 AM Ordering Location: [facility] Received: 12/15/2023 11:29 AM Endoscopy - ENDO Pathologist: Elver Whitaker V, MD Specimen: Lung, Right Upper Lobe, Transbronchial Biopsy, core needle biopsy Performed By: #### S ####[facility] LABCLIA [id number] [address] OF [facility] CLINICAL HISTORY Normal [facility] Comment on above: Order Comment: Speci men Type: TISSUE SPECIMENOrdering Facility: [facility] Address: [address] [place] [address] Result Comment: Pre- op diagnosis: Lung nodule [R91.1] Performed By: #### S ####[facility] LABCLIA [id number] [address] FINAL DIAGNOSIS Normal [facility] Comment on above: Order Comment: Speci men Type: TISSUE SPECIMENOrdering Facility: [facility] Address: [address] [place] [address] Result Comment: Righ t lung, upper lobe, transbronchial biopsy: - Predominantly blood with rare clusters of benign respiratory-type epithelium. [facility]/ 12/18/2023 Performed By: #### S ####[facility] LABCLIA [id number] [address] FINAL PERFORMING LAB Normal [facility] Comment on above: Order Comment: Speci men Type: TISSUE SPECIMENOrdering Facility: [facility] Address: [address] [place] [address] Result Comment: Diag nostic interpretation performed at [facility], [address] [place] [address] CLIA# [id number] Camouflage Assembler: Bjorn Zuleta M.D. Performed By: #### S ####[facility] LABCLIA [id number] [address] [place] GROSS DESCRIPTION Normal [facility] Comment on above: Order Comment: Speci men Type: TISSUE SPECIMENOrdering Facility: [facility] Address: [address] [place], [place] [address] [address] Result Comment: Moncho staton, Right Upper Lobe, Transbronchial Biopsy Received in formalin are multiple segments of cylindrical tissue aggregating to 2.4 x 0.8 x 0.1 cm, prather-red and of a soft and friable consistency. Totally submitted in one cassette. Gross examination performed at [facility], [address] [place] [address], [address] December 15, 2023 5:04 PM Performed By: #### S ####[facility] LABCLIA [id number] [place] [address] [place] XR CHEST 1V FRONTALon 2023 XR CHEST 1V FRONTAL * * *Final Report* * * DATE OF EXAM: Dec 15 2023 9:48AM FVO 5290 - XR CHEST 1V FRONTAL / PROCEDURE REASON: BRONCH WITH NAVIGATION * * * * Physician Interpretation * * * * EXAMINATION: CHEST RADIOGRAPH (SINGLE VIEW AP OR PA) CLINICAL HISTORY: Bronchoscopy with no indication MQ: XC1_5 Fluoroscopic Radiation Summary: Plane A, Air Kerma: 77.7 mGy Dose Area Product (DAP): Fluoro time: 6:26 min:sec RESULT: 4 spot images were obtained of the chest. Images demonstrate a bronchoscopy with a biopsy device traveling into the right upper medial hemithorax. IMPRESSION: Fluoroscopic assistance for bronchoscopic procedure. Please see procedure notes for more details Security Business Analyst: PSCB Transcribe Date/Time: Dec 15 2023 10:05A Dictated by : MADIE AUGUST MD This examination was interpreted and the report reviewed and electronically signed by: MADIE AUGUST MD on Dec 15 2023 10:06AM EST [id number] [facility] SIX MINUTE WALKon 12-06-2023 Rosana Sanchez ESTHELA Deya 12/06/2023 8:51 AM RESPIRATORY THERAPY SIX MINUTE WALK TEST OXIMETRY REPORT Six Minute Walk Test for This Encounter Oxygen Device Liters FIO2 SpO2% HR Activity Feet Speed (MPH) Flag R/A 97 74 Resting R/A 95 106 Six Minute Walk 1150 2.2 R/A 97 80 Recovery 1 minute post R/A 96 75 Recovery 2 minute post R/A 96 73 Recovery 3 minute post General Information Height Weight Pulse Oximetry Site Oximeter Pre Blood Pressure Post Blood Pressure Total Time Spent (min) 169.8 cm (5' 6.85) 80.7 kg (178 lb) L Index Finger Masimo 124/80 137/72 30 _ Distance Walked (meters) Distance Walked (feet) Male Predicted Walk Distance (feet) Male Lower Limit of Normal (feet) Male % Predicted Total Duration Of The Stops (seconds) 350.52 1150 1617.13 1115.13 71.1 -- _ Lowest SpO2 During 6 Minute Walk Pre-Zina Dyspnea Rating Pre-Zina Fatigue Rating Post Zina Dyspnea Rating Post Zina Fatigue Rating 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 Assistance/O2 Supply Carrier 95 % 0 0 0 1 -- None Six Minute Walk Trend (Previous Encounters) None SIGNATURE: DEMARCO Magdaleno PATIENT NAME: Sharonda Flores DATE: December 06, 2023 TIME: 8:51 AM [facility] SIX MINUTE WALKOrdered By: Fadi Mas on 12-06-2023 [facility] Work Phone: ECG COMPLETEon 11-29-2023 Atrial Rate 65 BPM [facility] Calculated P [place] 44 degrees [facility] Calculated R [place] 17 degrees [facility] Calculated T [place] 18 degrees [facility] P-R Interval 152 ms [facility] QRS Duration 78 ms [facility] QT Interval 396 ms [facility] QTC Calculation (Bazett) 411 ms [facility] Ventricular Rate 65 BPM [facility] NORMAL SINUS RHYTHM NORMAL ECG Confirmed by MD TURPIN GREGORY () on 11/29/2023 8:41:55 AM [facility] NAME : ALISA FLORES PID : [id number] : 1955 Gender : Male Race : ORD : Procedure Date : Nov 29 2023 08:13:29 Edit Date : Nov 29 2023 08:41:58 Diagnosis: NORMAL SINUS RHYTHM NORMAL ECG Confirmed by MD TURPIN GREGORY () on 11/29/2023 8:41:55 AM Test Reason : Location : 636 : [facility] Overread By : MD TURPIN GREGORY Edited By : MD TURPIN GREGORY Referred By : RENE MORE Acquired by : mima, [facility] CT Lung parenchyma WO manuel taco 11-06-2023 [facility] Anuja 08-03-2023 RENEEN Telephone (PULJ) -- SHARONDA FLORES ([id number]) 1955 M [facility] Date Time Provider Department 08/03/23 CHARO TSAI [facility] During your visit today, we recorded the following information about you: Charo Tsai APRN.CNP 08/03/2023 4:18 PM Signed Spoke with patient and the following results were discussed: LDCT Lung Screen Results LungRADS category: 4A Incidentals: coronary calcifications with stents Recommendations: Follow up CT in 3 mos Case reviewed with [facility] physician champion Dr. Law Foy. Patient verbalized understanding of the results and had no other questions or concerns at this time. Charo Tsai APRN.CNP August 03, 2023 4:16 PM Allergies As of Date: 08/03/2023 Noted Allergy Reaction PENICILLINS 05/23/2008 4 - Hives Date Reviewed: 07/11/2023 Reviewed by: Charo Tsai APRN.CNP - Fully Assessed Reason for Visit: Results [95] Primary Visit Diagnosis:Lung nodules [R91.8] Order(s):CT LUNG FOLLOWUP WO LOCOON [[id number]] Order #: [id number] FUTURE Prescriptions as of 08/03/2023 - ezetimibe (ZETIA) 10 mg tablet Take 1 tablet by mouth once daily. - atorvastatin (LIPITOR) 80 mg tablet Take 1 tablet by mouth daily at bedtime. For cholesterol. - nitroglycerin sublingual (NITROQUICK) 0.4 mg SL tablet Dissolve 1 tablet under the tongue every 5 minutes as needed. - Aspirin 81 mg Tab Take 81 mg by mouth once daily. - carvedilol (COREG) 6.25 mg tablet Take 6.25 mg by mouth twice daily with meals. - lisinopril (ZESTRIL) 5 mg tablet Take 5 mg by mouth once daily. Problem List As Of Date 08/03/2023 Noted Resolved PERS HX PENICILLIN ALLERGY [Z88.0] 06/03/2008 Class: Chronic TOBACCO USE DISORDER [F17.200] 06/03/2008 SPRAIN SHOULDER/ARM NOS [[id number]] 06/03/2008 JOINT PAIN-ANKLE [M25.579] 06/03/2008 HERPES SIMPLEX NOS [B00.9] 06/03/2008 MIXED HYPERLIPIDEMIA [E78.2] 07/02/2008 SCREENING MAL NEOP-COLON [Z12.11] 10/08/2008 BENIGN NEOPLASM LG BOWEL [D12.6] 10/08/2008 Coronary artery disease involving chilkoot lacey* Essential hypertension [I10] Thrombocytopenia (HCC) [D69.6] Tinnitus of both ears [H93.13] Psoriasis [L40.9] Abdominal aortic aneurysm (AAA) without rupture*06/08/2021 Encounter Status:Closed by CHARO TSAI on 08/03/23 [facility] US ABD AORTAon 06-13-2023 [facility] Qualitative QuantiFERON-TB g old in tube testOrdered By: Dr. Valderrama on 08-23-2022 M. tuberculosis tuberculin stim IFN-g Ql (Bld) 0.04 IU/mL . [facility] Thin prep Papanicolaou smear with manual screeningOrdered By: Dr. Valderrama on 08-23-2022 Thin prep Papanicolaou smear with manual screening Comment . [facility] Comment on above: QuantiFERON-TB Gold Plus is a qualitative indirect test forM tuberculosis infection (including disease) and isintended for use in conjunction with risk assessment,radiography, and other medical and diagnostic evaluations.The QuantiFERON-TB Gold Plus result is determined bysubtracting the Nil value from either TB antigen (Ag)value. The Mitogen tube serves as a control for the test. Thin prep Papanicolaou smear with manual screening 0.04 IU/mL . [facility] Thin prep Papanicolaou smear with manual screening 0.05 IU/mL . [facility] Thin prep Papanicolaou smear with manual screening > 10.00 IU/mL . [facility] Thin prep Papanicolaou smear with manual screening Negative Negative [facility] Comment on above: No response to M tub erculosis antigens detected.Infection with M tuberculosis is unlikely, but high riskindividuals should be considered for additional testing(ATS/IDSA/CDC Clinical Practice Guidelines, 2017). Thereference range is an Antigen minus Nil result of <0.35IU/mL.The specimen received for QuantiFERON testing was incubatedby the ordering institution. Specific procedures outlinedin our Directory of Services and in the package insert forthe QuantiFERON Gold (In Tube) test must be followed toenable for proper stimulation of cells for the productionof interferon gamma. Chemiluminescence immunoassaymethodologyPerformed at: [facility] Technologies[place] [id number] Director: Curt Taylor PhD, Phone: [phone] Comp Metabolic Panelon 09-30 ALP [Catalytic activity/Vol] 63 U/L Normal 38-126 [facility] Comment on above: Performed By: #### C MP3, LIPD2 #### [facility] [address], [place] ALT [Catalytic activity/Vol] 22 U/L Normal 0-49 [facility] Comment on above: Result Comment: The ALT test is performed by an updated assay method. Please note that the reference intervals have been changed and are now sex specific. Performed By: #### C MP3, LIPD2 #### [facility] [address], [place] AST [Catalytic activity/Vol] 29 U/L Normal 15-46 [facility] Comment on above: Performed By: #### C MP3, LIPD2 #### [facility] [address], [place] Bilirubin [Mass/Vol] 0.7 mg/dL Normal 0.2-1.3 [facility] Comment on above: Performed By: #### C MP3, LIPD2 #### [facility] [address] [place] [address] Calcium [Mass/Vol] 9.4 mg/dL Normal 8.4-10.4 [facility] Comment on above: Performed By: #### C MP3, LIPD2 #### [facility] [address] [place] [address] Creatinine [Mass/Vol] 0.81 mg/dL Normal 0.52-1.25 [facility] Comment on above: Performed By: #### C MP3, LIPD2 #### [facility] [address] [place] [address] GFR/1.73 sq M predicted among blacks MDRD (S/P/Bld) [Vol rate/Area] mL/min/{1.73_m2} Normal >60 [facility] Comment on above: Performed By: #### C MP3, LIPD2 #### [facility] [address] [place] [address] GFR/1.73 sq M predicted among non-blacks MDRD (S/P/Bld) [Vol rate/Area] mL/min/{1.73_m2} Normal >60 [facility] Comment on above: Result Comment: KDIG O guidelines provide the following GFR categories: Stage GFR(ml/min/1.73 m2) Terms G1 >=90 Normal or high G2 60-89 Mildly decreased* G3a 45-59 Mildly to moderately decreased G3b 30-44 Moderately to severely decreased G4 15-29 Severely decreased G5 <15 Kidney failure *Relative to young adult level. In the absence of evidence of kidney damage, neither GFR category G1 nor G2 fulfill the criteria for CKD. The CKD-EPI equation is validated in individuals 18 years of age and older. Currently the best equation for estimating glomerular filtration rate (GFR) from serum creatinine in children is the Bedside Chilel equation. It is less accurate in patients with extremes of muscle mass, restriction of dietary protein, ingestion of creatine, extra-renal metabolism of creatinine, or treatment with medications that affect renal tubular creatinine secretion. Performed By: #### C MP3, LIPD2 #### [facility] [address] [place] [address] Glucose [Mass/Vol] 77 mg/dL Normal 70-100 [facility] Comment on above: Performed By: #### C MP3, LIPD2 #### [facility] [address], [place] Protein [Mass/Vol] 7.3 g/dL Normal 6.3-8.2 [facility] Comment on above: Performed By: #### C MP3, LIPD2 #### [facility] [address], [place] Urea nitrogen [Mass/Vol] 15 mg/dL Normal 7-20 [facility] Comment on above: Performed By: #### C MP3, LIPD2 #### [facility] [address], [place] Anion gap [Moles/Vol] 3 mmol/L Normal 3-13 [facility] Comment on above: Performed By: #### C MP3, LIPD2 #### [facility] [address], [place] CO2 [Moles/Vol] 30 mmol/L Normal 22-30 [facility] Comment on above: Performed By: #### C MP3, LIPD2 #### [facility] [address], [place] Albumin [Mass/Vol] 4.2 g/dL Normal 3.5-5.0 [facility] Comment on above: Performed By: #### C MP3, LIPD2 #### [facility] [address], [place] Potassium [Moles/Vol] 4.9 mmol/L Normal 3.5-5.1 [facility] Comment on above: Performed By: #### C MP3, LIPD2 #### [facility] [address], [place] Sodium [Moles/Vol] 138 mmol/L Normal 135-145 [facility] Comment on above: Performed By: #### C MP3, LIPD2 #### [facility] [address], [place] Chloride [Moles/Vol] 105 mmol/L Normal 98-107 [facility] Comment on above: Performed By: #### C MP3, LIPD2 #### [facility] [address] [place] [address] Comprehensive Metabolic Pane ra 09-30-2020 Albumin [Mass/Vol] 4.2 g/dL 3.5 - 5 g/dL [facility] [employer] [facility] Work Phone: [phone] ALP [Catalytic activity/Vol] 63 U/L 38 - 126 U/L [facility] Work Phone: [phone] ALT [Catalytic activity/Vol] 22 U/L 0 - 49 U/L [facility] Work Phone: [phone] Comment on above: The ALT test is perf ormed by an updated assay method. Please note that the reference intervals have been changed and are now sex specific. Anion gap [Moles/Vol] 3 mmol/L 3 - 13 mmol/L [facility] Work Phone: [phone] AST [Catalytic activity/Vol] 29 U/L 15 - 46 U/L [facility] Work Phone: [phone] Bilirubin Ql (U) 0.7 mg/dL 0.2 - 1.3 mg/dL [facility] Work Phone: [phone] Calcium [Mass/Vol] 9.4 mg/dL 8.4 - 10. 4 mg/dL [facility] Work Phone: [phone] Chloride [Moles/Vol] 105 mmol/L 98 - 10 7 mmol/L [facility] Work Phone: [phone] CO2 [Moles/Vol] 30 mmol/L 22 - 30 mmol/L [facility] Work Phone: [phone] Creatinine [Mass/Vol] 0.81 mg/dL 0.52 - 1.25 mg/dL [facility] Work Phone: [phone] EGFR IF NonAfrican Nicaraguan >90.0 >60 mL/min [facility] Work Phone: [phone] Comment on above: KDIGO guidelines pro vide the following GFR categories: Stage GFR(ml/min/1.73 m2) Terms G1 >=90 Normal or high G2 60-89 Mildly decreased* G3a 45-59 Mildly to moderately decreased G3b 30-44 Moderately to severely decreased G4 15-29 Severely decreased G5 <15 Kidney failure *Relative to young adult level. In the absence of evidence of kidney damage, neither GFR category G1 nor G2 fulfill the criteria for CKD. The CKD-EPI equation is validated in individuals 18 years of age and older. Currently the best equation for estimating glomerular filtration rate (GFR) from serum creatinine in children is the Bedside Chilel equation. It is less accurate in patients with extremes of muscle mass, restriction of dietary protein, ingestion of creatine, extra-renal metabolism of creatinine, or treatment with medications that affect renal tubular creatinine secretion. GFR/1.73 sq M predicted among blacks MDRD (S/P/Bld) [Vol rate/Area] mL/min/{1.73_m2} >60 mL/min [facility] Work Phone: Glucose [Mass/Vol] 77 mg/dL 70 - 100 mg/dL [facility] Work Phone: [phone] Potassium [Moles/Vol] 4.9 mmol/L 3.5 - 5.1 mmol/L [facility] Work Phone: Protein [Mass/Vol] 7.3 g/dL 6.3 - 8.2 g/dL [facility] Work Phone: Sodium [Moles/Vol] 138 mmol/L 135 - 145 mmol/L [facility] Work Phone: Urea nitrogen [Mass/Vol] 15 mg/dL 7 - 20 mg/dL [facility] Work Phone: [phone] Lipid Panelon 09-30-2020 Cholesterol in HDL [Mass/Vol] 34 mg/dL Low 40-60 [facility] Comment on above: Performed By: #### C MP3, LIPD2 #### [facility] [address] [place] [address] Cholesterol.total/Stephanie sterol in HDL [Mass ratio] 7 Normal [facility] Comment on above: Result Comment: Ref Range: < 3 Low Risk for CHD 3-6 Mod Risk for CHD > 6 High Risk for CHD Performed By: #### C MP3, LIPD2 #### [employer] [address] [place] [address] Protein [Mass/Vol] 175 mg/dL Abnormal <100 [facility] Comment on above: Performed By: #### C MP3, LIPD2 #### [facility] [address] [place] [address] Triglyceride [Mass/Vol] 164 mg/dL Abnormal <150 [facility] Comment on above: Performed By: #### C MP3, LIPD2 #### [facility] [address] [place] [address] Cholesterol [Mass/Vol] 242 mg/dL Abnormal < 200 [facility] Comment on above: Performed By: #### C MP3, LIPD2 #### [facility] [address] [place] [address] Cholesterol [Mass/Vol] 242 mg/dL Abnormal <200 [facility] Work Phone: Cholesterol in HDL [Mass/Vol] 34 mg/dL Low 40 - 60 mg/dL [facility] Work Phone: Cholesterol in LDL [Mass/Vol] 175 mg/dL Abnormal <100 [facility] Work Phone: Cholesterol.total/Stephanie sterol in HDL [Mass ratio] 7 {ratio} [facility] Work Phone: Comment on above: Ref Range: < 3 Low Risk for CHD 3-6 Mod Risk for CHD > 6 High Risk for CHD Interpretation and review of laboratory results Abnormal [facility] Work Phone: Triglyceride [Mass/Vol] 164 mg/dL Abnormal <150 [facility] Work Phone: Otheron 09-30-2020 Test Performed by [facility], [address] [place] [address] [facility] Work Phone: RFon 10-04-2018 Rheumatoid Factor <6.0 Normal [facility] ([place]) Comment on above: Result Comment: RF I gM Antibody by Enzyme Immunoassay: Negative < or = 6 Positive > 6 A positive result indicates the presence of RF antibodies and suggests the possibility of rheumatoid arthritis. A negative result indicates no RF IgM antibody or levels below the negative cut-off of the assay. Results of this assay should be used in conjunction with clinical findings and other serological tests. These results were obtained with the Struq QUANTA Lite RF IgM MICHELLE. RF IgM values obtained with different manufacturers' assay methods may not be used interchangeably. The magnitude of the reported IgM levels cannot be correlated to an endpoint titer. Performed By: #### C BC, ADIFF, ANEU, B12, FERR, FES, CMP, GFR, FOL, ESR, KIMBERLY, CRP, RF #### [place] [address] ANAon 10-02-2018 Nuclear Ab IF titer (S) 40 {titer} Normal Neg 40 [facility] ([place]) Comment on above: Performed By: #### C BC, ADIFF, ANEU, B12, FERR, FES, CMP, GFR, FOL, ESR, KIMBERLY, CRP, RF #### [place] [address] CRPon 10-02-2018 CRP mass conc 0.53 mg/dL Normal <=0.80 [facility] ([place]) Comment on above: Performed By: #### C BC, ADIFF, ANEU, B12, FERR, FES, CMP, GFR, FOL, ESR, KIMBERLY, CRP, RF #### [place] [address] .Auto Diffon 10-01-2018 Ammonia mass conc (P) 0.40 10 3/mcL Normal 0.09-1.40 [facility] ([place]) Comment on above: Performed By: #### C BC, ADIFF, ANEU, B12, FERR, FES, CMP, GFR, FOL, ESR, KIMBERLY, CRP, RF #### [place] [address] Basophils #/vol (Bld) 0.00 10 3/mcL Normal 0.00-0.27 [facility] ([place]) Comment on above: Performed By: #### C BC, ADIFF, ANEU, B12, FERR, FES, CMP, GFR, FOL, ESR, KIMBERLY, CRP, RF #### [place] [address] Basophils/100 WBC (Bld) 0.5 % Normal 0.0-2.5 [facility] ([place]) Comment on above: Performed By: #### C BC, ADIFF, ANEU, B12, FERR, FES, CMP, GFR, FOL, ESR, KIMBERLY, CRP, RF #### [address] [address] Eosinophils #/vol (Bld) 0.10 10 3/mcL Normal 0.00-0.65 [facility] ([place]) Comment on above: Performed By: #### C BC, ADIFF, ANEU, B12, FERR, FES, CMP, GFR, FOL, ESR, KIMBERLY, CRP, RF #### [address] [address] Eosinophils/100 WBC (Bld) 2.8 % Normal 0.0-6.0 [facility] ([place]) Comment on above: Performed By: #### C BC, ADIFF, ANEU, B12, FERR, FES, CMP, GFR, FOL, ESR, KIMBERLY, CRP, RF #### [address] [address] Lymphocytes #/vol (Bld) 1.10 10 3/mcL Normal 0.90-4.32 [facility] ([place]) Comment on above: Performed By: #### C BC, ADIFF, ANEU, B12, FERR, FES, CMP, GFR, FOL, ESR, KIMBERLY, CRP, RF #### [address] [address] Lymphocytes/100 WBC (Bld) 24.9 % Normal 20.0-40.0 [facility] ([place]) Comment on above: Performed By: #### C BC, ADIFF, ANEU, B12, FERR, FES, CMP, GFR, FOL, ESR, KIMBERLY, CRP, RF #### [address] [address] Monocytes/100 WBC (Bld) 7.6 % Normal 2.0-13.0 [facility] ([place]) Comment on above: Performed By: #### C BC, ADIFF, ANEU, B12, FERR, FES, CMP, GFR, FOL, ESR, KIMBERLY, CRP, RF #### [address] [address] Neutrophils/100 WBC (Bld) 64.2 % Normal 50.0-75.0 [facility] ([place]) Comment on above: Performed By: #### C BC, ADIFF, ANEU, B12, FERR, FES, CMP, GFR, FOL, ESR, KIMBERLY, CRP, RF #### [address] [address] .GFRon 10-01-2018 GFR Non- >60 Normal [facility] ([place]) Comment on above: Result Comment: GFR Population mean for , Non- Americans Ages 20-29 = 116 mL/min/1.73 sq.m. Ages 30-39 = 107 mL/min/1.73 sq.m. Ages 40-49 = 99 mL/min/1.73 sq.m. Ages 50-59 = 93 mL/min/1.73 sq.m. Ages 60-69 = 85 mL/min/1.73 sq.m. Ages 70+ = 75 mL/min/1.73 sq.m. Chronic Kidney Disease: Less than 60 mL/min/1.73 square meters End Stage Renal Disease: Less than 15 mL/min/1.73 square meters Performed By: #### C BC, ADIFF, ANEU, B12, FERR, FES, CMP, GFR, FOL, ESR, KIMBERLY, CRP, RF #### [place] [id number] GFR >60 Normal [facility] ([place]) Comment on above: Result Comment: GFR Population mean for , Non- Americans Ages 20-29 = 116 mL/min/1.73 sq.m. Ages 30-39 = 107 mL/min/1.73 sq.m. Ages 40-49 = 99 mL/min/1.73 sq.m. Ages 50-59 = 93 mL/min/1.73 sq.m. Ages 60-69 = 85 mL/min/1.73 sq.m. Ages 70+ = 75 mL/min/1.73 sq.m. Chronic Kidney Disease: Less than 60 mL/min/1.73 square meters End Stage Renal Disease: Less than 15 mL/min/1.73 square meters Performed By: #### C BC, ADIFF, ANEU, B12, FERR, FES, CMP, GFR, FOL, ESR, KIMBERLY, CRP, RF #### [address] [address] .NEUABSon 10-01-2018 Neutrophils #/vol (Bld) 3.00 10 3/mcL Normal 2.25-8.10 [facility] ([place]) Comment on above: Performed By: #### C BC, ADIFF, ANEU, B12, FERR, FES, CMP, GFR, FOL, ESR, KIMBERLY, CRP, RF #### [address] [address] B12on 10-01-2018 Cobalamin (Vitamin B12) mass conc 504 pg/mL Normal 211-911 [facility] ([place]) Comment on above: Performed By: #### C BC, ADIFF, ANEU, B12, FERR, FES, CMP, GFR, FOL, ESR, KIMBERLY, CRP, RF #### [place] [id number] CBCon 10-01-2018 Erythrocyte distribution width Ratio (RBC) 13.8 % Normal 11.5-15.5 [facility] ([place]) Comment on above: Performed By: #### C BC, ADIFF, ANEU, B12, FERR, FES, CMP, GFR, FOL, ESR, KIMBERLY, CRP, RF #### [place] [address] Hematocrit Volume Fraction (Bld) 44.7 % Normal 40.0-52.0 [facility] ([place]) Comment on above: Performed By: #### C BC, ADIFF, ANEU, B12, FERR, FES, CMP, GFR, FOL, ESR, KIMBERLY, CRP, RF #### [place] [address] Hemoglobin mass conc (Bld) 15.2 G/dL Normal 13.0-17.5 [facility] ([place]) Comment on above: Performed By: #### C BC, ADIFF, ANEU, B12, FERR, FES, CMP, GFR, FOL, ESR, KIMBERLY, CRP, RF #### [place] [id number] MCH Entitic mass (RBC) 30.6 pg Normal 27.0-33.0 [facility] ([place]) Comment on above: Performed By: #### C BC, ADIFF, ANEU, B12, FERR, FES, CMP, GFR, FOL, ESR, KIMBERLY, CRP, RF #### [place] [address] MCHC mass conc (RBC) 34.0 G/dL Normal 32.0-36.0 [facility] ([place]) Comment on above: Performed By: #### C BC, ADIFF, ANEU, B12, FERR, FES, CMP, GFR, FOL, ESR, KIMBERLY, CRP, RF #### [place] [address] MCV Entitic volume (RBC) 89.9 fL Normal 81.0-100.0 [facility] ([place]) Comment on above: Performed By: #### C BC, ADIFF, ANEU, B12, FERR, FES, CMP, GFR, FOL, ESR, KIMBERLY, CRP, RF #### [place] [address] Platelet mean volume Entitic volume (Bld) 9.8 fL Normal 6.4-10.5 [facility] ([place]) Comment on above: Performed By: #### C BC, ADIFF, ANEU, B12, FERR, FES, CMP, GFR, FOL, ESR, KIMBERLY, CRP, RF #### [place] [address] Platelets #/vol (Bld) 128 10 3/mcL Low 150-450 [facility] ([place]) Comment on above: Performed By: #### C BC, ADIFF, ANEU, B12, FERR, FES, CMP, GFR, FOL, ESR, KIMBERLY, CRP, RF #### [place] [address] RBC #/vol (Bld) 4.97 10 6/mcL Normal 4.50-6.00 [facility] ([place]) Comment on above: Performed By: #### C BC, ADIFF, ANEU, B12, FERR, FES, CMP, GFR, FOL, ESR, KIMBERLY, CRP, RF #### [place] [address] WBC #/vol (Bld) 4.60 10 3/mcL Normal 4.50-10.80 [facility] ([place]) Comment on above: Performed By: #### C BC, ADIFF, ANEU, B12, FERR, FES, CMP, GFR, FOL, ESR, KIMBERLY, CRP, RF #### [address] [address] CMPon 10-01-2018 Albumin/Globulin mass ratio 1.2 {ratio} Normal 0.9-1.6 [facility] ([place]) Comment on above: Performed By: #### C BC, ADIFF, ANEU, B12, FERR, FES, CMP, GFR, FOL, ESR, KIMBERLY, CRP, RF #### [address] [address] ALP enzyme act/vol 80 U/L Normal 38-126 [facility] ([place]) Comment on above: Performed By: #### C BC, ADIFF, ANEU, B12, FERR, FES, CMP, GFR, FOL, ESR, KIMBERLY, CRP, RF #### [address] [address] Bili Total 0.2 mg/dL Normal 0.2-1.2 [facility] ([place]) Comment on above: Performed By: #### C BC, ADIFF, ANEU, B12, FERR, FES, CMP, GFR, FOL, ESR, KIMBERLY, CRP, RF #### [address] [address] Creatinine mass conc 0.90 mg/dL Normal 0.60-1.40 [facility] ([place]) Comment on above: Performed By: #### C BC, ADIFF, ANEU, B12, FERR, FES, CMP, GFR, FOL, ESR, KIMBERLY, CRP, RF #### [place] [id number] Globulin mass conc (S) 3.2 G/dL Normal 1.5-3.8 [facility] ([place]) Comment on above: Performed By: #### C BC, ADIFF, ANEU, B12, FERR, FES, CMP, GFR, FOL, ESR, KIMBERLY, CRP, RF #### [address] [address] Protein mass conc 7.1 G/dL Normal 6.0-8.5 [facility] ([place]) Comment on above: Performed By: #### C BC, ADIFF, ANEU, B12, FERR, FES, CMP, GFR, FOL, ESR, KIMBERLY, CRP, RF #### [place] [id number] Urea nitrogen/Creatinine mass ratio 13.3 ratio Normal 10.0-22.0 [facility] ([place]) Comment on above: Performed By: #### C BC, ADIFF, ANEU, B12, FERR, FES, CMP, GFR, FOL, ESR, KIMBERLY, CRP, RF #### [place] [id number] Albumin mass conc 3.9 G/dL Normal 3.2-4.8 [facility] ([place]) Comment on above: Performed By: #### C BC, ADIFF, ANEU, B12, FERR, FES, CMP, GFR, FOL, ESR, KIMBERLY, CRP, RF #### [place] [address] ALT enzyme act/vol 21 U/L Normal 12-55 [facility] ([place]) Comment on above: Performed By: #### C BC, ADIFF, ANEU, B12, FERR, FES, CMP, GFR, FOL, ESR, KIMBERLY, CRP, RF #### [place] [id number] AST enzyme act/vol 12 U/L Normal 8-34 [facility] ([place]) Comment on above: Performed By: #### C BC, ADIFF, ANEU, B12, FERR, FES, CMP, GFR, FOL, ESR, KIMBERLY, CRP, RF #### [place] [id number] Calcium mass conc 9.2 mg/dL Normal 8.4-10.1 [facility] ([place]) Comment on above: Performed By: #### C BC, ADIFF, ANEU, B12, FERR, FES, CMP, GFR, FOL, ESR, KIMBERLY, CRP, RF #### [place] [id number] Chloride molar conc 108 mmol/L Normal 98-110 [facility] ([place]) Comment on above: Performed By: #### C BC, ADIFF, ANEU, B12, FERR, FES, CMP, GFR, FOL, ESR, KIMBERLY, CRP, RF #### [place] [address] CO2 molar conc 30 mmol/L Normal 22-32 [facility] ([place]) Comment on above: Performed By: #### C BC, ADIFF, ANEU, B12, FERR, FES, CMP, GFR, FOL, ESR, KIMBERLY, CRP, RF #### [place] [address] Electrolyte Balance 4.0 mEq/L Normal 4.0-15.0 [facility] ([place]) Comment on above: Performed By: #### C BC, ADIFF, ANEU, B12, FERR, FES, CMP, GFR, FOL, ESR, KIMBERLY, CRP, RF #### [place] [address] Glucose mass conc 77 mg/dL Low 82-115 [facility] ([place]) Comment on above: Performed By: #### C BC, ADIFF, ANEU, B12, FERR, FES, CMP, GFR, FOL, ESR, KIMBERLY, CRP, RF #### [place] [address] Potassium molar conc 4.5 mmol/L Normal 3.5-5.0 [facility] ([place]) Comment on above: Performed By: #### C BC, ADIFF, ANEU, B12, FERR, FES, CMP, GFR, FOL, ESR, KIMBERLY, CRP, RF #### [place] [address] Sodium molar conc 142 mmol/L Normal 136-145 [facility] ([place]) Comment on above: Performed By: #### C BC, ADIFF, ANEU, B12, FERR, FES, CMP, GFR, FOL, ESR, KIMBERLY, CRP, RF #### [place] [address] Urea nitrogen mass conc 12.0 mg/dL Normal 8.0-22.0 [facility] ([place]) Comment on above: Performed By: #### C BC, ADIFF, ANEU, B12, FERR, FES, CMP, GFR, FOL, ESR, KIMBERLY, CRP, RF #### [place] [id number] ESRon 10-01-2018 ESR Velocity (Bld) 6 mm/h Normal 0-20 [facility] ([place]) Comment on above: Performed By: #### C BC, ADIFF, ANEU, B12, FERR, FES, CMP, GFR, FOL, ESR, KIMBERLY, CRP, RF #### [place] [address] [place] 10-01-2018 Ferritin mass conc 145 ng/mL Normal 26-388 [facility] ([place]) Comment on above: Performed By: #### C BC, ADIFF, ANEU, B12, FERR, FES, CMP, GFR, FOL, ESR, KIMBERLY, CRP, RF #### [place] [address] FESon 10-01-2018 Iron Sat 20 % Normal [facility] ([place]) Comment on above: Performed By: #### C BC, ADIFF, ANEU, B12, FERR, FES, CMP, GFR, FOL, ESR, KIMBERLY, CRP, RF #### [place] [address] TIBC 288 mcg/dL Normal 250-500 [facility] ([place]) Comment on above: Performed By: #### C BC, ADIFF, ANEU, B12, FERR, FES, CMP, GFR, FOL, ESR, KIMBERLY, CRP, RF #### [place] [address] Iron mass conc 58 ug/dL Normal 49-181 [facility] ([place]) Comment on above: Performed By: #### C BC, ADIFF, ANEU, B12, FERR, FES, CMP, GFR, FOL, ESR, KIMBERLY, CRP, RF #### [place] [address] FOLon 10-01-2018 Folate 17.7 ng/mL Normal 1.1-20.0 [facility] ([place]) Comment on above: Performed By: #### C BC, ADIFF, ANEU, B12, FERR, FES, CMP, GFR, FOL, ESR, KIMBERLY, CRP, RF #### [place] [address] Vital Signs Date Time Vital Sign Value Performing Clinician Edel nuñez 04-15-2025 08:25-0400 Diastolic blood pressure 76 mm[Hg] Cristo Loera DO Work Phone: [facility] 04-15-2025 08:25-0400 Heart rate 71 /min Cristo Loera DO Work Phone: [facility] 04-15-2025 08:25-0400 SaO2% (BldA) [Mass fraction] 98 % Cristo Loera DO Work Phone: [facility] 04-15-2025 08:25-0400 Systolic blood pressure 131 mm[Hg] Cristo Loera DO Work Phone: [facility] 04-09-2025 08:56-0400 Body mass index (BMI) [Ratio] 25.49 kg/m2 Analy Giraldoi DO Work Phone: [facility] 04-09-2025 08:56-0400 Body temperature 97.7 [degF] Analy Masci DO Work Phone: [facility] 04-09-2025 08:56-0400 Body weight 72.8 kg Analy Masci DO Work Phone: [facility] 04-09-2025 08:56-0400 Diastolic blood pressure 74 mm[Hg] Analy Masci DO Work Phone: [facility] 04-09-2025 08:56-0400 Heart rate 82 /min Analy Masci DO Work Phone: [facility] 04-09-2025 08:56-0400 SaO2% (BldA) [Mass fraction] 100 % Analy Masci DO Work Phone: [facility] 04-09-2025 08:56-0400 Systolic blood pressure 123 mm[Hg] Analy Masci DO Work Phone: [facility] 04-08-2025 16:35-0400 Diastolic blood pressure 67 mm[Hg] Mae Robles MD Work Phone: [facility] 04-08-2025 16:35-0400 Heart rate 73 /min Mae Robles MD Work Phone: [facility] 04-08-2025 16:35-0400 Respiratory rate 14 /min Mae Robles MD Work Phone: [facility] 04-08-2025 16:35-0400 SaO2% (BldA) [Mass fraction] 97 % Mae Robles MD Work Phone: [facility] 04-08-2025 16:35-0400 Systolic blood pressure 150 mm[Hg] Mae Robles MD Work Phone: [facility] 04-08-2025 14:20-0400 Body mass index (BMI) [Ratio] 25.87 kg/m2 Mae Robles MD Work Phone: [facility] 04-08-2025 14:20-0400 Body temperature 97.39 [degF] Mae Robles MD Work Phone: [facility] 04-08-2025 14:20-0400 Body weight 73.9 kg Mae Robles MD Work Phone: [facility] 03-26-2025 09:09-0400 Body mass index (BMI) [Ratio] 25.88 kg/m2 Gisselle Click PULLER OVER.DISASTER RECOVERY MANAGER Work Phone: [facility] 03-26-2025 09:09-0400 Body weight 73.94 kg Gisselle Click PULLER OVER.DISASTER RECOVERY MANAGER Work Phone: [facility] 03-26-2025 09:09-0400 Diastolic blood pressure 74 mm[Hg] Gisselle Click PULLER OVER.DISASTER RECOVERY MANAGER Work Phone: [facility] 03-26-2025 09:09-0400 Heart rate 81 /min Gisselle Click PULLER OVER.DISASTER RECOVERY MANAGER Work Phone: [facility] 03-26-2025 09:09-0400 Respiratory rate 15 /min Gisselle Click PULLER OVER.DISASTER RECOVERY MANAGER Work Phone: [facility] 03-26-2025 09:09-0400 SaO2% (BldA) [Mass fraction] 100 % Gisselle Click PULLER OVER.DISASTER RECOVERY MANAGER Work Phone: [facility] 03-26-2025 09:09-0400 Systolic blood pressure 120 mm[Hg] Gisselle Virgie PULLER OVER.DISASTER RECOVERY MANAGER Work Phone: [facility] 03-21-2025 08:45-0400 Body mass index (BMI) [Ratio] 25.98 kg/m2 Saray Yves PULLER OVER.DISASTER RECOVERY MANAGER Work Phone: [facility] 03-21-2025 08:45-0400 Body weight 74.21 kg Saray Yves PULLER OVER.DISASTER RECOVERY MANAGER Work Phone: [facility] 03-21-2025 08:45-0400 Diastolic blood pressure 72 mm[Hg] Saray Yves PULLER OVER.DISASTER RECOVERY MANAGER Work Phone: [facility] 03-21-2025 08:45-0400 Heart rate 66 /min Saray Yves PULLER OVER.DISASTER RECOVERY MANAGER Work Phone: [facility] 03-21-2025 08:45-0400 Respiratory rate 14 /min Saray Yves PULLER OVER.DISASTER RECOVERY MANAGER Work Phone: [facility] 03-21-2025 08:45-0400 SaO2% (BldA) [Mass fraction] 99 % Saray Yves PULLER OVER.DISASTER RECOVERY MANAGER Work Phone: [facility] 03-21-2025 08:45-0400 Systolic blood pressure 151 mm[Hg] Saray Yves PULLER OVER.DISASTER RECOVERY MANAGER Work Phone: [facility] 03-19-2025 06:57-0400 Body height 169 cm Tima Tello MD Work Phone: [facility] 03-19-2025 06:57-0400 Body mass index (BMI) [Ratio] 25.22 kg/m2 Tima Tello MD Work Phone: [facility] 03-19-2025 06:57-0400 Body weight 72.03 kg Tima Tello MD Work Phone: [facility] 03-19-2025 06:57-0400 Diastolic blood pressure 68 mm[Hg] Tima Tello MD Work Phone: [facility] 03-19-2025 06:57-0400 Heart rate 73 /min Tima Tello MD Work Phone: [facility] 03-19-2025 06:57-0400 SaO2% (BldA) [Mass fraction] 98 % Tima Tello MD Work Phone: [facility] 03-19-2025 06:57-0400 Systolic blood pressure 116 mm[Hg] Tima Tello MD Work Phone: [facility] 03-17-2025 08:12-0400 Body height 169 cm Analy Kristali DO Work Phone: [facility] 03-17-2025 08:12-0400 Body mass index (BMI) [Ratio] 26.21 kg/m2 Analy Masci DO Work Phone: [facility] 03-17-2025 08:12-0400 Body temperature 97.2 [degF] Analy Masci DO Work Phone: [facility] 03-17-2025 08:12-0400 Body weight 74.84 kg Analy Masci DO Work Phone: [facility] 03-17-2025 08:12-0400 Diastolic blood pressure 80 mm[Hg] Analy Masci DO Work Phone: [facility] 03-17-2025 08:12-0400 Heart rate 65 /min Analy Masci DO Work Phone: [facility] 03-17-2025 08:12-0400 SaO2% (BldA) [Mass fraction] 98 % Analy Masci DO Work Phone: [facility] 03-17-2025 08:12-0400 Systolic blood pressure 143 mm[Hg] Analy Masci DO Work Phone: [facility] 11-13-2024 13:00-0400 Diastolic blood pressure 68 mm[Hg] Becky Tineo MD Work Phone: [facility] 11-13-2024 13:00-0400 Systolic blood pressure 136 mm[Hg] Becky Tineo MD Work Phone: [facility] 11-13-2024 12:45-0400 Body height 165.1 cm Becky Tineo MD Work Phone: [facility] 11-13-2024 12:45-0400 Body mass index (BMI) [Ratio] 26.13 kg/m2 Becky Tineo MD Work Phone: [facility] 11-13-2024 12:45-0400 Body weight 71.22 kg Becky Tineo MD Work Phone: [facility] 11-13-2024 12:45-0400 Heart rate 66 /min Becky Tineo MD Work Phone: [facility] 11-13-2024 12:45-0400 SaO2% (BldA) [Mass fraction] 98 % Becky Tineo MD Work Phone: [facility] 09-24-2024 07:54-0500 Diastolic blood pressure 72 mm[Hg] Gisselle Click PULLER OVER.DISASTER RECOVERY MANAGER Work Phone: [facility] 09-24-2024 07:54-0500 Heart rate 66 /min Gisselle Click PULLER OVER.DISASTER RECOVERY MANAGER Work Phone: [facility] 09-24-2024 07:54-0500 Respiratory rate 18 /min Gisselle Click PULLER OVER.DISASTER RECOVERY MANAGER Work Phone: [facility] 09-24-2024 07:54-0500 SaO2% (BldA) [Mass fraction] 96 % Gisselle Click PULLER OVER.DISASTER RECOVERY MANAGER Work Phone: [facility] 09-24-2024 07:54-0500 Systolic blood pressure 118 mm[Hg] Gisselle Click PULLER OVER.DISASTER RECOVERY MANAGER Work Phone: [facility] 09-17-2024 08:20-0500 Body mass index (BMI) [Ratio] 23.7 kg/m2 Alejandra Viramontes PULLER OVER.DISASTER RECOVERY MANAGER Work Phone: [facility] 09-17-2024 08:20-0500 Body weight 68.5 kg Alejandra Viramontes PULLER OVER.DISASTER RECOVERY MANAGER Work Phone: [facility] 09-17-2024 08:20-0500 Diastolic blood pressure 68 mm[Hg] Alejandra Podlogar PULLER OVER.DISASTER RECOVERY MANAGER Work Phone: [facility] 09-17-2024 08:20-0500 Heart rate 74 /min Alejandra Podlogar PULLER OVER.DISASTER RECOVERY MANAGER Work Phone: [facility] 09-17-2024 08:20-0500 Respiratory rate 18 /min Alejandra Podlogar PULLER OVER.DISASTER RECOVERY MANAGER Work Phone: [facility] 09-17-2024 08:20-0500 SaO2% (BldA) [Mass fraction] 97 % Alejandra Podlogar PULLER OVER.DISASTER RECOVERY MANAGER Work Phone: [facility] 09-17-2024 08:20-0500 Systolic blood pressure 122 mm[Hg] Alejandra Podlogar PULLER OVER.DISASTER RECOVERY MANAGER Work Phone: [facility] 09-09-2024 08:18-0500 Body mass index (BMI) [Ratio] 23.15 kg/m2 Hakancourtney Blackwell Work Phone: [facility] 09-09-2024 08:18-0500 Body temperature 97.5 [degF] Hakan Blackwell Work Phone: [facility] 09-09-2024 08:18-0500 Body weight 66.91 kg Hakan Blackwell Work Phone: [facility] 09-09-2024 08:18-0500 Diastolic blood pressure 73 mm[Hg] Hakan Blackwell Work Phone: [facility] 09-09-2024 08:18-0500 Heart rate 61 /min Hakan Blackwell Work Phone: [facility] 09-09-2024 08:18-0500 SaO2% (BldA) [Mass fraction] 98 % Hakan Blackwell Work Phone: [facility] 09-09-2024 08:18-0500 Systolic blood pressure 128 mm[Hg] Hakan Francesight Work Phone: [facility] 08-14-2024 11:21-0500 Diastolic blood pressure 61 mm[Hg] Yara Flowers PULLER OVER - DISASTER RECOVERY MANAGER Work Phone: [employer] 08-14-2024 11:21-0500 Heart rate 72 /min Yara Flowers PULLER OVER - DISASTER RECOVERY MANAGER Work Phone: [facility] [facility] 08-14-2024 11:21-0500 Systolic blood pressure 100 mm[Hg] Yara Flowers PULLER OVER - DISASTER RECOVERY MANAGER Work Phone: [facility] 07-31-2024 08:00-0500 Body temperature 97.81 [degF] Brooklynn Martinez DO Work Phone: [facility] 07-31-2024 08:00-0500 Diastolic blood pressure 50 mm[Hg] Brooklynn Martinez DO Work Phone: [facility] 07-31-2024 08:00-0500 Heart rate 74 /min Brooklynn Martinez DO Work Phone: [facility] 07-31-2024 08:00-0500 Respiratory rate 16 /min Brooklynn Martinez DO Work Phone: [facility] [facility] 07-31-2024 08:00-0500 SaO2% (BldA) [Mass fraction] 97 % Brooklynn Martinez DO Work Phone: [facility] [facility] 07-31-2024 08:00-0500 Systolic blood pressure 110 mm[Hg] Brooklynn Martinez DO Work Phone: [facility] 07-31-2024 06:23-0500 Body mass index (BMI) [Ratio] 26.29 kg/m2 Brooklynn Contreraser DO Work Phone: [facility] [facility] 07-31-2024 06:23-0500 Body weight 71.67 kg Brooklynn Martinez DO Work Phone: [facility] 07-26-2024 06:55-0500 Body height 165.1 cm Brooklynn Martinez DO Work Phone: [employer] Comment on above: per pt and chart 07-25-2024 13:29-0500 SaO2% (BldA) [Mass fraction] 98.3 % Brooklynn Martinez DO Work Phone: [facility] 07-25-2024 12:08-0500 SaO2% (BldA) [Mass fraction] 98.8 % Brooklynn Martinez DO Work Phone: [facility] 07-05-2024 14:30-0500 Diastolic blood pressure 105 mm[Hg] Becky Tineo MD Work Phone: [facility] 07-05-2024 14:30-0500 Heart rate 70 /min Becky Tineo MD Work Phone: [facility] 07-05-2024 14:30-0500 Respiratory rate 14 /min Becky Tineo MD Work Phone: [facility] 07-05-2024 14:30-0500 Systolic blood pressure 139 mm[Hg] Becky Tineo MD Work Phone: [facility] 07-05-2024 12:16-0500 Body temperature 96.69 [degF] Becky Tineo MD Work Phone: [facility] 07-05-2024 11:07-0500 SaO2% (BldA) [Mass fraction] 100 % Becky Tineo MD Work Phone: [facility] 07-05-2024 08:35-0500 Body height 165.1 cm Becky Tineo MD Work Phone: [facility] 07-05-2024 08:35-0500 Body mass index (BMI) [Ratio] 26.13 kg/m2 Becky Tineo MD Work Phone: [facility] 07-05-2024 08:35-0500 Body weight 71.22 kg Becky Tineo MD Work Phone: [facility] 06-25-2024 10:20-0500 Body height 165.1 cm Horace Becker CNP Work Phone: [facility] 06-25-2024 10:20-0500 Body mass index (BMI) [Ratio] 26.13 kg/m2 Horace Martinez APRN - DISASTER RECOVERY MANAGER Work Phone: [facility] 06-25-2024 10:20-0500 Body weight 71.22 kg Horace Martinez PULLER OVER - DISASTER RECOVERY MANAGER Work Phone: [facility] 06-11-2024 09:51-0500 Diastolic blood pressure 52 mm[Hg] Horace Martinez PULLER OVER - DISASTER RECOVERY MANAGER Work Phone: [facility] 06-11-2024 09:51-0500 Systolic blood pressure 98 mm[Hg] Horace Martinez PULLER OVER - DISASTER RECOVERY MANAGER Work Phone: [facility] 06-11-2024 09:03-0500 Body height 165.1 cm Horace Martinez APRN - DISASTER RECOVERY MANAGER Work Phone: [facility] 06-11-2024 09:03-0500 Body mass index (BMI) [Ratio] 26.19 kg/m2 Horace Martinez APRN - DISASTER RECOVERY MANAGER Work Phone: [facility] 06-11-2024 09:03-0500 Body weight 71.4 kg Horace Martinez APRN - DISASTER RECOVERY MANAGER Work Phone: [facility] 06-11-2024 09:03-0500 Heart rate 64 /min Horace Martinez APRN - DISASTER RECOVERY MANAGER Work Phone: [facility] 06-11-2024 09:03-0500 SaO2% (BldA) [Mass fraction] 95 % Horace Martinez APRN - DISASTER RECOVERY MANAGER Work Phone: [facility] 05-21-2024 08:37-0400 Body mass index (BMI) [Ratio] 25.27 kg/m2 Jazmyn Mas MD Work Phone: [facility] 05-21-2024 08:37-0400 Body temperature 97.7 [degF] Jazmyn Mas MD Work Phone: [facility] 05-21-2024 08:37-0400 Body weight 73.03 kg Jazmyn Mas MD Work Phone: [facility] 05-21-2024 08:37-0400 Diastolic blood pressure 60 mm[Hg] Jazmyn Mas MD Work Phone: [facility] 05-21-2024 08:37-0400 Heart rate 74 /min Jazmyn Mas MD Work Phone: [facility] 05-21-2024 08:37-0400 SaO2% (BldA) [Mass fraction] 96 % Jazmyn Mas MD Work Phone: [facility] 05-21-2024 08:37-0400 Systolic blood pressure 102 mm[Hg] Jazmyn Mas MD Work Phone: [facility] 05-06-2024 15:14-0400 Body mass index (BMI) [Ratio] 25.16 kg/m2 Alejandra Podlogar PULLER OVER.DISASTER RECOVERY MANAGER Work Phone: [facility] 05-06-2024 15:14-0400 Body weight 72.7 kg Alejandra Podlogar PULLER OVER.DISASTER RECOVERY MANAGER Work Phone: [facility] 05-06-2024 15:14-0400 Diastolic blood pressure 58 mm[Hg] Alejandra Podlogar PULLER OVER.DISASTER RECOVERY MANAGER Work Phone: [facility] 05-06-2024 15:14-0400 Heart rate 73 /min Alejandra Podlogar PULLER OVER.DISASTER RECOVERY MANAGER Work Phone: [facility] 05-06-2024 15:14-0400 Respiratory rate 16 /min Alejandra Podlogar PULLER OVER.DISASTER RECOVERY MANAGER Work Phone: [facility] 05-06-2024 15:14-0400 SaO2% (BldA) [Mass fraction] 94 % Alejandra Podlogar PULLER OVER.DISASTER RECOVERY MANAGER Work Phone: [facility] 05-06-2024 15:14-0400 Systolic blood pressure 92 mm[Hg] Alejandra Podlogar PULLER OVER.DISASTER RECOVERY MANAGER Work Phone: [facility] 05-03-2024 11:29-0400 Body mass index (BMI) [Ratio] 24.81 kg/m2 Alejandra Podlogar PULLER OVER.DISASTER RECOVERY MANAGER Work Phone: [facility] 05-03-2024 11:29-0400 Body weight 71.7 kg Alejandra Podlogar PULLER OVER.DISASTER RECOVERY MANAGER Work Phone: [facility] 05-03-2024 11:29-0400 Diastolic blood pressure 68 mm[Hg] Alejandra Podlogar PULLER OVER.DISASTER RECOVERY MANAGER Work Phone: [facility] 05-03-2024 11:29-0400 Heart rate 73 /min Alejandra Podlogar PULLER OVER.DISASTER RECOVERY MANAGER Work Phone: [facility] 05-03-2024 11:29-0400 Respiratory rate 18 /min Alejandra Podlogar PULLER OVER.DISASTER RECOVERY MANAGER Work Phone: [facility] 05-03-2024 11:29-0400 SaO2% (BldA) [Mass fraction] 96 % Alejandra Podlogar PULLER OVER.DISASTER RECOVERY MANAGER Work Phone: [facility] 05-03-2024 11:29-0400 Systolic blood pressure 132 mm[Hg] Alejandra Podlogar PULLER OVER.DISASTER RECOVERY MANAGER Work Phone: [facility] 05-01-2024 15:09-0400 Body mass index (BMI) [Ratio] 25.09 kg/m2 [facility] P[facility] OVER.DISASTER RECOVERY MANAGER Work Phone: [facility] 05-01-2024 15:09-0400 Body temperature 97.9 [degF] [facility] PULLER OVER.DISASTER RECOVERY MANAGER Work Phone: [facility] 05-01-2024 15:09-0400 Body weight 72.5 kg [facility] PULLER OVER.DISASTER RECOVERY MANAGER Work Phone: [facility] 05-01-2024 15:09-0400 Diastolic blood pressure 74 mm[Hg] [facility] PULLER OVER.DISASTER RECOVERY MANAGER Work Phone: [facility] 05-01-2024 15:09-0400 Heart rate 76 /min [facility] PULLER OVER.DISASTER RECOVERY MANAGER Work Phone: [facility] 05-01-2024 15:09-0400 Respiratory rate 19 /min Elijah Sanders PULLER OVER.DISASTER RECOVERY MANAGER Work Phone: [facility] 05-01-2024 15:09-0400 SaO2% (BldA) [Mass fraction] 97 % Elijah Sanders PULLER OVER.DISASTER RECOVERY MANAGER Work Phone: [facility] 05-01-2024 15:09-0400 Systolic blood pressure 130 mm[Hg] Elijah Sanders PULLER OVER.DISASTER RECOVERY MANAGER Work Phone: [facility] 03-20-2024 12:36-0400 Body height 170 cm Analy Masci DO Work Phone: [facility] 03-20-2024 12:36-0400 Body mass index (BMI) [Ratio] 24.72 kg/m2 Analy Masci DO Work Phone: [facility] 03-20-2024 12:36-0400 Body temperature 97.59 [degF] Analy Masci DO Work Phone: [facility] 03-20-2024 12:36-0400 Body weight 71.44 kg Analy Masci DO Work Phone: [facility] 03-20-2024 12:36-0400 Diastolic blood pressure 61 mm[Hg] Analy Masci DO Work Phone: [facility] 03-20-2024 12:36-0400 Heart rate 81 /min Analy Masci DO Work Phone: [facility] 03-20-2024 12:36-0400 SaO2% (BldA) [Mass fraction] 98 % Analy Masci DO Work Phone: [facility] 03-20-2024 12:36-0400 Systolic blood pressure 99 mm[Hg] Analy Masci DO Work Phone: [facility] 03-11-2024 07:14-0400 Body mass index (BMI) [Ratio] 26.3 kg/m2 Tima Tello MD Work Phone: [facility] 03-11-2024 07:14-0400 Body weight 71.7 kg Tima Tello MD Work Phone: [facility] 03-11-2024 07:14-0400 Diastolic blood pressure 64 mm[Hg] Tima Tello MD Work Phone: [facility] 03-11-2024 07:14-0400 Heart rate 83 /min Tima Tello MD Work Phone: [facility] 03-11-2024 07:14-0400 Respiratory rate 18 /min Tima Tello MD Work Phone: [facility] 03-11-2024 07:14-0400 SaO2% (BldA) [Mass fraction] 97 % Tima Tello MD Work Phone: [facility] 03-11-2024 07:14-0400 Systolic blood pressure 130 mm[Hg] Tima Tello MD Work Phone: [facility] 02-29-2024 09:50-0400 Body height 165.1 cm Shaylee Woods APRN.DISASTER RECOVERY MANAGER Work Phone: [facility] 02-29-2024 09:50-0400 Body mass index (BMI) [Ratio] 28.01 kg/m2 Shaylee Woods APRN.DISASTER RECOVERY MANAGER Work Phone: [facility] 02-29-2024 09:50-0400 Body weight 76.34 kg Shaylee Woods APRN.DISASTER RECOVERY MANAGER Work Phone: [facility] 02-29-2024 09:50-0400 Diastolic blood pressure 64 mm[Hg] Shaylee Woods APRN.DISASTER RECOVERY MANAGER Work Phone: [facility] 02-29-2024 09:50-0400 Heart rate 68 /min Shaylee Woods APRN.DISASTER RECOVERY MANAGER Work Phone: [facility] 02-29-2024 09:50-0400 Respiratory rate 16 /min Shaylee Woods APRN.DISASTER RECOVERY MANAGER Work Phone: [facility] 02-29-2024 09:50-0400 Systolic blood pressure 112 mm[Hg] Shaylee Woods APRN.DISASTER RECOVERY MANAGER Work Phone: [facility] 01-29-2024 08:22-0400 Body height 167.6 cm Fred Mckinney APRN.DISASTER RECOVERY MANAGER Work Phone: [facility] Comment on above: Patient reports 01-29-2024 08:22-0400 Body mass index (BMI) [Ratio] 27.57 kg/m2 Fred Mckinney APRN.DISASTER RECOVERY MANAGER Work Phone: [facility] 01-29-2024 08:22-0400 Body weight 77.47 kg Fred Mckinney APRN.DISASTER RECOVERY MANAGER Work Phone: [facility] Comment on above: Fully clothed with shoes on. 01-29-2024 08:22-0400 Diastolic blood pressure 60 mm[Hg] Fred Mckinney APRN.DISASTER RECOVERY MANAGER Work Phone: [facility] 01-29-2024 08:22-0400 Heart rate 75 /min Fred Mckinney APRN.DISASTER RECOVERY MANAGER Work Phone: [facility] 01-29-2024 08:22-0400 SaO2% (BldA) [Mass fraction] 97 % Fred Mckinney APRN.DISASTER RECOVERY MANAGER Work Phone: [facility] 01-29-2024 08:22-0400 Systolic blood pressure 100 mm[Hg] Fred Mckinney APRN.DISASTER RECOVERY MANAGER Work Phone: [facility] 01-16-2024 12:36-0400 Body height 165.1 cm Becky Tineo MD Work Phone: [facility] 01-16-2024 12:36-0400 Body mass index (BMI) [Ratio] 28.32 kg/m2 Becky Tineo MD Work Phone: [facility] 01-16-2024 12:36-0400 Body weight 77.2 kg Becky Tineo MD Work Phone: [facility] 01-16-2024 12:36-0400 Diastolic blood pressure 62 mm[Hg] Becky Tineo MD Work Phone: [facility] 01-16-2024 12:36-0400 Heart rate 65 /min Becky Tineo MD Work Phone: [facility] 01-16-2024 12:36-0400 Systolic blood pressure 128 mm[Hg] Becky Tineo MD Work Phone: [facility] 01-08-2024 13:07-0400 Body height 165.1 cm Nadege Tadeo MD Work Phone: [facility] 01-08-2024 13:07-0400 Body mass index (BMI) [Ratio] 28.79 kg/m2 Nadege Tadeo MD Work Phone: [facility] 01-08-2024 13:07-0400 Body weight 78.47 kg Nadege Tadeo MD Work Phone: [facility] 01-08-2024 13:07-0400 Diastolic blood pressure 64 mm[Hg] Nadege Tadeo MD Work Phone: [facility] 01-08-2024 13:07-0400 Heart rate 68 /min Nadege Tadeo MD Work Phone: [facility] 01-08-2024 13:07-0400 Respiratory rate 16 /min Nadege Tadeo MD Work Phone: [facility] 01-08-2024 13:07-0400 Systolic blood pressure 120 mm[Hg] Nadege Tadeo MD Work Phone: [facility] 12-29-2023 09:31-0400 Body mass index (BMI) [Ratio] 28 kg/m2 Stephen Nunez MD Work Phone: [facility] 12-29-2023 09:31-0400 Body temperature 97.5 [degF] Stephen Nunez MD Work Phone: [facility] 12-29-2023 09:31-0400 Body weight 80.74 kg Stephen Nunez MD Work Phone: [facility] 12-29-2023 09:31-0400 Diastolic blood pressure 90 mm[Hg] Stephen Nunez MD Work Phone: [facility] 12-29-2023 09:31-0400 Heart rate 69 /min Stephen Nunez MD Work Phone: [facility] 12-29-2023 09:31-0400 SaO2% (BldA) [Mass fraction] 98 % Stephen Nunez MD Work Phone: [facility] 12-29-2023 09:31-0400 Systolic blood pressure 131 mm[Hg] Stephen Nunez MD Work Phone: [facility] 12-08-2023 08:41-0400 Diastolic blood pressure 70 mm[Hg] Tima Tello MD Work Phone: [facility] Comment on above: recheck 12-08-2023 08:41-0400 Systolic blood pressure 124 mm[Hg] Tima Tello MD Work Phone: [facility] Comment on above: recheck 12-08-2023 07:45-0400 Body mass index (BMI) [Ratio] 28.04 kg/m2 Tima Tello MD Work Phone: [facility] 12-08-2023 07:45-0400 Body weight 80.83 kg Tima Tello MD Work Phone: [facility] 12-08-2023 07:45-0400 Heart rate 70 /min Tima Tello MD Work Phone: [facility] 12-08-2023 07:45-0400 Respiratory rate 16 /min Tima Tello MD Work Phone: [facility] 12-08-2023 07:45-0400 SaO2% (BldA) [Mass fraction] 97 % Tima Tello MD Work Phone: [facility] 12-06-2023 08:47-0400 Body height 169.8 cm Pulm Wstr Work Phone: [facility] 12-06-2023 08:47-0400 Body mass index (BMI) [Ratio] 28 kg/m2 Pulm Wstr Work Phone: [facility] 12-06-2023 08:47-0400 Body weight 80.74 kg Pulm Wstr Work Phone: [facility] 12-06-2023 08:47-0400 Heart rate 74 /min Pulm Wstr Work Phone: [facility] 12-06-2023 08:47-0400 Respiratory rate 14 /min Pulm Wstr Work Phone: [facility] 12-06-2023 08:47-0400 SaO2% (BldA) [Mass fraction] 97 % Pulm Wstr Work Phone: [facility] 11-29-2023 07:55-0400 Body height 165.1 cm Pacc 1 Work Phone: [facility] 11-29-2023 07:55-0400 Body mass index (BMI) [Ratio] 29.79 kg/m2 Pacc 1 Work Phone: [facility] 11-29-2023 07:55-0400 Body temperature 97.39 [degF] Pacc 1 Work Phone: [facility] 11-29-2023 07:55-0400 Body weight 81.19 kg Pacc 1 Work Phone: [facility] 11-29-2023 07:55-0400 Diastolic blood pressure 80 mm[Hg] Pacc 1 Work Phone: [facility] 11-29-2023 07:55-0400 Heart rate 69 /min Pacc 1 Work Phone: [facility] 11-29-2023 07:55-0400 Respiratory rate 14 /min Pacc 1 Work Phone: [facility] 11-29-2023 07:55-0400 SaO2% (BldA) [Mass fraction] 97 % Pacc 1 Work Phone: [facility] 11-29-2023 07:55-0400 Systolic blood pressure 122 mm[Hg] Pacc 1 Work Phone: [facility] 11-06-2023 08:25-0400 Body height 167.6 cm Charo Tsai APRN.CNP Work Phone: [facility] 11-06-2023 08:25-0400 Body weight 80.02 kg Charo [place] PULLER OVER.DISASTER RECOVERY MANAGER Work Phone: [facility] 11-06-2023 08:25-0400 Diastolic blood pressure 82 mm[Hg] Charo [place] PULLER OVER.DISASTER RECOVERY MANAGER Work Phone: [facility] 11-06-2023 08:25-0400 Heart rate 74 /min Charo [place] PULLER OVER.DISASTER RECOVERY MANAGER Work Phone: [facility] 11-06-2023 08:25-0400 Respiratory rate 16 /min Charo [place] PULLER OVER.DISASTER RECOVERY MANAGER Work Phone: [facility] 11-06-2023 08:25-0400 SaO2% (BldA) [Mass fraction] 96 % Charo [place] PULLER OVER.DISASTER RECOVERY MANAGER Work Phone: [facility] 11-06-2023 08:25-0400 Systolic blood pressure 110 mm[Hg] Charo [place] PULLER OVER.DISASTER RECOVERY MANAGER Work Phone: [facility] 12-02-2022 10:10-0400 Body temperature 97.9 [degF] Rosario Lalitha PULLER OVER.DISASTER RECOVERY MANAGER Work Phone: [facility] 12-02-2022 10:10-0400 Body weight 75.75 kg Rosario Lalitha PULLER OVER.DISASTER RECOVERY MANAGER Work Phone: [facility] 12-02-2022 10:10-0400 Diastolic blood pressure 62 mm[Hg] Rosario Lalitha PULLER OVER.DISASTER RECOVERY MANAGER Work Phone: [facility] 12-02-2022 10:10-0400 Heart rate 90 /min Rosario Lalitha PULLER OVER.DISASTER RECOVERY MANAGER Work Phone: [facility] 12-02-2022 10:10-0400 Respiratory rate 18 /min Rosario Lalitha PULLER OVER.DISASTER RECOVERY MANAGER Work Phone: [facility] 12-02-2022 10:10-0400 SaO2% (BldA) [Mass fraction] 98 % Rosario Lalitha PULLER OVER.DISASTER RECOVERY MANAGER Work Phone: [facility] 12-02-2022 10:10-0400 Systolic blood pressure 120 mm[Hg] Rosario Lalitha KABA.DISASTER RECOVERY MANAGER Work Phone: [facility] 11-01-2022 13:10-0400 Body height 165.1 cm Becky Tineo MD Work Phone: [facility] 11-01-2022 13:10-0400 Body mass index (BMI) [Ratio] 28.96 kg/m2 Becky Tineo MD Work Phone: [facility] 11-01-2022 13:10-0400 Body weight 78.93 kg Becky Tineo MD Work Phone: [facility] 11-01-2022 13:10-0400 Diastolic blood pressure 60 mm[Hg] Becky Tineo MD Work Phone: [facility] 11-01-2022 13:10-0400 Heart rate 69 /min Becky Tineo MD Work Phone: [facility] 11-01-2022 13:10-0400 SaO2% (BldA) [Mass fraction] 96 % Becky Tineo MD Work Phone: [facility] 11-01-2022 13:10-0400 Systolic blood pressure 102 mm[Hg] Becky Tineo MD Work Phone: [facility] 12-07-2021 15:22-0400 Diastolic blood pressure 68 mm[Hg] Mi Nurse Work Phone: [facility] 12-07-2021 15:22-0400 Heart rate 80 /min Mi Nurse Work Phone: [facility] 12-07-2021 15:22-0400 Systolic blood pressure 106 mm[Hg] Mi Nurse Work Phone: [facility] 11-23-2021 17:01-0400 Diastolic blood pressure 70 mm[Hg] Tima Tello MD Work Phone: [facility] 11-23-2021 17:01-0400 Systolic blood pressure 132 mm[Hg] Tima Tello MD Work Phone: [facility] 11-23-2021 16:42-0400 Body weight 81.83 kg Tima Tello MD Work Phone: [facility] 11-23-2021 16:42-0400 Heart rate 71 /min Tima Tello MD Work Phone: [facility] 11-23-2021 16:42-0400 Respiratory rate 18 /min Tima Tello MD Work Phone: [facility] 11-23-2021 16:42-0400 SaO2% (BldA) [Mass fraction] 99 % Tima Tello MD Work Phone: [facility] Encounters Encounter Date Encounter Type Care Provider Facility Start: 06-12-2025 ambulatory [facility] Facility:[facility] Start: 06-03-2025 End: 06-03-2025 ambulatory TIMA TELLO Facility:[facility] Start: 05-14-2025 End: 05-14-2025 ambulatory TIMA TELLO Facility:[facility] Start: 04-21-2025 End: 04-21-2025 ambulatory GERMANIA Arnulfo TELLO Facility:[facility] Start: 04-15-2025 End: 04-15-2025 ambulatory TIMA TELLO Facility:[facility] Start: 04-15-2025 End: 04-15-2025 Patient encounter procedure Saray Marinelli APRN.CNP Work Phone: General Surgery Comment on above: RUQ pain (Primary Dx ) Infrarenal abdominal aortic aneurysm (AAA) without rupture (Primary Dx); Atherosclerotic ulcer of aorta; Abdominal aortic aneurysm (AAA) without rupture, unspecified part; Bilateral carotid artery stenosis; Peripheral arterial disease; Infrarenal abdominal aortic aneurysm, without rupture Start: 04-15-2025 End: 04-15-2025 ambulatory TIMA TELLO Facility:[facility] Start: 04-14-2025 End: 04-14-2025 Adela Tineo MD Work Phone: [facility] Cardiology [facility] Comment on above: 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) Start: 04-11-2025 [facility] Start: 04-11-2025 End: 04-12-2025 Subsequent hospital visit by physician [facility] Cat Scan Comment on above: Melena [K92.1] Start: 04-09-2025 End: 04-09-2025 Patient encounter procedure Analy Dumont DO Work Phone: Hematology/Oncology Start: 04-09-2025 End: 04-09-2025 ambulatory Analy Dumont DO Work Phone: Hematology/Oncology Comment on above: Malignant neoplasm o f upper lobe of right lung (HCC) (Primary Dx); Malignant neoplasm of unspecified part of unspecified bronchus or lung (HCC); Chronic post-thoracotomy pain Start: 04-08-2025 ambulatory [facility] Start: 04-08-2025 End: 04-08-2025 Subsequent hospital visit by physician Mae Robles MD Work Phone: Ambulatory Surgery Comment on above: Chronic constipation [K59.09] Start: 03-27-2025 [facility] Facility:[facility] Start: 03-27-2025 End: 03-27-2025 Subsequent hospital visit by physician [facility] Work Phone: Radiology Comment on above: Nausea [R11.0] Start: 03-26-2025 End: 03-26-2025 Office outpatient visit 15 minutes Gisselle Phelan APRN.DISASTER RECOVERY MANAGER Work Phone: Pulmonary Medicine Comment on above: Pulmonary air trappi ng (Primary Dx); Malignant neoplasm of upper lobe of right lung (HCC); Former cigarette smoker Start: 03-26-2025 End: 03-26-2025 ambulatory [facility] Facility:[facility] Start: 03-21-2025 End: 03-21-2025 Patient encounter procedure Saray Marinelli APRN.DISASTER RECOVERY MANAGER Work Phone: General Surgery Comment on above: Nausea (Primary Dx); Chronic constipation; Melena; Heart burn; RUQ abdominal pain Start: 03-21-2025 End: 03-21-2025 ambulatory TIMA TELLO Facility:[facility] Start: 03-20-2025 End: 03-20-2025 Follow-up encounter Tima Tello MD Work Phone: [facility] Comment on above: Results Start: 03-19-2025 End: 03-19-2025 ambulatory TIMA TELLO Facility:[facility] Start: 03-19-2025 End: 03-19-2025 Patient encounter procedure Tima Tello MD Work Phone: [facility] Comment on above: Chronic constipation (Primary Dx); Melena; Generalized abdominal pain Start: 03-19-2025 End: 03-19-2025 ambulatory TIMA TELLO Facility:[facility] Start: 03-18-2025 End: 03-18-2025 ambulatory Chad Davies MA [facility] Start: 03-18-2025 End: 03-18-2025 Patient [facility] Comment on above: Population Health Na vigation Outreach (RAMU MAHARAJ PCSA ) Start: 03-18-2025 End: 03-19-2025 Telephone encounter Analy Dumont DO Work Phone: Hematology/Oncology Comment on above: Results Start: 03-17-2025 End: 03-17-2025 ambulatory Analy Dumont DO Work Phone: Hematology/Oncology Comment on above: Primary lung adenoca rcinoma, right (HCC) (Primary Dx) Start: 03-17-2025 End: 03-17-2025 Patient encounter procedure Analy Dumont DO Work Phone: Hematology/Oncology Start: 03-17-2025 ambulatory TIMA TELLO Facility:[facility] Start: 03-12-2025 End: 03-12-[address] Morro Tello MD Work Phone: [facility] Start: 03-12-2025 End: 03-12-[address] Jose Valderrama MD -Laboratory [place] Work Phone: Start: 03-11-2025 End: 03-11-2025 Subsequent hospital visit by physician Ct [facility] (I-Stat) Work Phone: Cat Scan Comment on above: Malignant neoplasm o f unspecified part of unspecified bronchus or lung (HCC) [C34.90] Start: 03-11-2025 End: 03-12-2025 ambulatory TIMA TELLO Facility:[facility] Start: 01-12-2025 End: 01-13-2025 Refill Yara Flowers APRN - DISASTER RECOVERY MANAGER Work Phone: [facility] Cardiac Thoracic Vascular Intensive Care Unit CTV ICU T1 Start: 12-16-2024 End: 12-16-2024 Refill Yara Flowers PULLER OVER - DISASTER RECOVERY MANAGER Work Phone: [facility] [place] Start: 11-13-2024 End: 11-13-2024 Office outpatient visit 25 minutes Becky Tineo MD Work Phone: [facility] Cardiology [facility] Comment on above: 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); Mixed hyperlipidemia; Essential hypertension; S/P CABG (coronary artery bypass graft) Start: 11-13-2024 End: 11-13-2024 ambulatory BECKY TINEO [facility] Start: 10-25-2024 End: 10-25-2024 ambulatory [facility] Start: 10-20-2024 End: 10-21-2024 Refill Yara Flowers PULLER OVER - DISASTER RECOVERY MANAGER Work Phone: [facility] Cardiac Thoracic Vascular Intensive Care Unit CTV ICU T1 Start: 10-09-2024 End: 10-09-2024 Postop follow up visit related to original px Yara Flowers APRN - DISASTER RECOVERY MANAGER Work Phone: [facility] [place] Comment on above: S/P CABG (coronary a rtery bypass graft) (Primary Dx) Start: 10-09-2024 End: 10-09-2024 ambulatory YARA FLOWERS [facility] Start: 10-01-2024 End: 10-01-2024 ambulatory Ivy Gonzalez [facility] Start: 09-24-2024 End: 09-24-2024 ambulatory TIMA TELLO Facility:[facility] Start: 09-24-2024 End: 09-24-2024 Office outpatient visit 15 minutes Gisselle Phelan APRN.DISASTER RECOVERY MANAGER Work Phone: Pulmonary Medicine Comment on above: Pulmonary air trappi ng (Primary Dx); Malignant neoplasm of upper lobe of right lung (HCC); Former cigarette smoker Start: 09-17-2024 End: 09-17-2024 ambulatory TIMA TELLO Facility:[facility] Start: 09-17-2024 End: 09-17-2024 Patient encounter procedure Alejandra Viramontes APRN.DISASTER RECOVERY MANAGER Work Phone: [facility] Comment on above: Essential hypertensi on (Primary Dx); Hyperlipidemia, mixed; Coronary artery disease involving chilkoot coronary artery of chilkoot heart without angina pectoris; PAD (peripheral artery disease) (HCC); S/P lobectomy of lung; S/P triple vessel bypass; Primary lung adenocarcinoma, right (HCC) Start: 09-13-2024 ambulatory TIMA TELLO Facility:[facility] Start: 09-12-2024 End: 09-12-2024 Follow-up encounter Hakan Blackwell Work Phone: Hematology/Oncology Start: 09-09-2024 End: 09-09-2024 Postop follow up visit related to original px Yara Flowers PULLER OVER - DISASTER RECOVERY MANAGER Work Phone: [facility] Cardi[facility]acic [facility] [place] Comment on above: S/P CABG (coronary a rtery bypass graft) (Primary Dx); Essential hypertension; Atrial fibrillation, unspecified type (HCC) Start: 09-09-2024 End: 09-09-2024 ambulatory YARA FLOWERS [facility] Start: 09-09-2024 End: 09-09-2024 ambulatory Hakan Blackwell Work Phone: Hematology/Oncology Comment on above: Malignant neoplasm o f unspecified part of unspecified bronchus or lung (HCC) (Primary Dx); S/P lobectomy of lung Start: 09-09-2024 End: 09-09-2024 Patient encounter procedure Hakan Blackwell Work Phone: Hematology/Oncology Start: 09-06-2024 End: 09-06-2024 ambulatory TIMA TELLO Facility:[facility] Start: 09-06-2024 End: 09-06-2024 Subsequent hospital visit by physician Ct [facility] (I-Stat) Work Phone: Cat Scan Comment on above: Malignant neoplasm o f unspecified part of unspecified bronchus or lung (HCC) [C34.90] Start: 09-02-2024 End: 09-02-2024 ambulatory TIMA TELLO Facility:[facility] Start: 08-28-2024 End: 08-28-2024 Postop follow up visit related to original px Yara Flowers PULLER OVER - DISASTER RECOVERY MANAGER Work Phone: [facility] [place] Comment on above: S/P CABG (coronary a rtery bypass graft) (Primary Dx); Essential hypertension; Atrial fibrillation, unspecified type (HCC) Start: 08-28-2024 End: 08-28-2024 ambulatory YARA FLOWERS [facility] Start: 08-26-2024 End: 08-26-2024 Adela Tineo MD Work Phone: [facility] - [place] Comment on above: 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 Start: 08-20-2024 End: 08-20-2024 ambulatory Ivy Gonzalez [facility] Start: 08-16-2024 End: 08-16-2024 ambulatory Irma Grant RN [facility] Start: 08-14-2024 End: 08-14-2024 Postop follow up visit related to original px Yara Flowers PULLER OVER - DISASTER RECOVERY MANAGER Work Phone: [facility] [place] Comment on above: S/P CABG (coronary a rtery bypass graft) (Primary Dx); 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); Essential hypertension; Atrial fibrillation, unspecified type (HCC) Start: 08-14-2024 End: 08-14-2024 ambulatory YARA FLOWERS [facility] Start: 08-12-2024 End: 08-12-2024 Subsequent hospital visit by physician Xr [facility] [place] Work Phone: Radiology Comment on above: DDD (degenerative di sc disease), cervical [M50.30] Start: 08-12-2024 End: 08-12-2024 Patient encounter procedure Nan Ng PA-C Work Phone: Orthopaedics Comment on above: DDD (degenerative di sc disease), cervical (Primary Dx); Chronic left shoulder pain Start: 08-12-2024 End: 08-12-2024 ambulatory TIMA TELLO Facility:[facility] Start: 08-12-2024 End: 08-12-2024 Subsequent hospital visit by physician Xr [facility] [place] Work Phone: Radiology Comment on above: Pain [R52] Start: 08-09-2024 End: 08-09-2024 Orders Only Nandra Ng PA-C Work Phone: [facility] [place] Comment on above: Pain (Primary Dx) Start: 08-06-2024 End: 08-07-2024 Telephone encounter Brooklynn Martinez DO Work Phone: [facility] [place] Comment on above: Release of Informati on Start: 07-25-2024 End: 07-25-2024 Anesthesia consultation Fredi Buchanan MD Work Phone: [facility] MAIN OR Start: 07-25-2024 End: 07-31-2024 Evaluation and management of inpatient Brooklynn Juan GOODMAN Work Phone: [facility] Cardiac Thoracic Vascular Intensive Care Unit CTV ICU T1 Comment on above: S/P CABG (coronary a rtery bypass graft) (Primary Dx); 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); Chronic total occlusion of coronary artery; Chronic left shoulder pain Start: 07-18-2024 End: 07-18-2024 Subsequent hospital visit by physician Meng Xr Exam Room 1 [facility] X-ray Imaging Comment on above: Arrived Start: 07-18-2024 End: 07-18-2024 ambulatory BROOKLYNN MARTINEZ [facility] Start: 07-18-2024 End: 07-18-2024 ambulatory BROOKLYNN MARTINEZ [facility] Start: 07-18-2024 End: 07-18-2024 Encounter for other preprocedural examination BROOKLYNN MARTINEZ [facility] Start: 07-12-2024 End: 07-12-2024 Telephone encounter Brooklynn Martinez DO Work Phone: [facility] [place] Comment on above: Surgery Scheduling Start: 07-11-2024 ambulatory Morro Tello [facility] Start: 07-10-2024 End: 07-10-2024 ambulatory BROOKLYNN MARTINEZ [facility] Start: 07-05-2024 End: 07-05-2024 ambulatory BECKY TINEO [facility] Start: 07-05-2024 End: 07-05-2024 Subsequent hospital visit by physician Becky Tineo MD Work Phone: [facility] Comment on above: Coronary artery dise ase of chilkoot artery of chilkoot heart with stable angina pectoris (HCC); Abnormal stress echocardiogram Start: 07-02-2024 End: 07-02-2024 ambulatory Horace Martinez APRN - DISASTER RECOVERY MANAGER Work Phone: [facility] [place] Start: 06-28-2024 End: 06-28-2024 ambulatory TIMA TELOL Facility:[facility] Start: 06-25-2024 End: 06-25-2024 Subsequent hospital visit by physician Horace Martinez APRN - DISASTER RECOVERY MANAGER Work Phone: [facility] [address] Non-Invasive Cardiology Comment on above: Coronary artery dise ase involving chilkoot coronary artery of chilkoot heart with angina pectoris (HCC); Chest pain, unspecified type Start: 06-25-2024 End: 06-25-[address] [facility] Start: 06-24-2024 End: 06-25-2024 Telephone encounter Horace Becker CNP Work Phone: [facility] on above: Orders Start: 06-14-2024 ambulatory Morro Tello Faci lity:[facility] Start: 06-14-2024 End: 06-14-2024 ambulatory Morro Tello Facility:[facility] Start: 06-11-2024 End: 06-11-2024 Telephone encounter Fortunato Jurado APRN.DISASTER RECOVERY MANAGER Work Phone: [facility] Comment on above: Results Start: 06-11-2024 End: 06-11-2024 Office outpatient visit 25 minutes Horace Martinez APRN - DISASTER RECOVERY MANAGER Work Phone: [facility] Comment on above: Coronary artery dise ase involving chilkoot coronary artery of chilkoot heart with angina pectoris (HCC) (Primary Dx); Atherosclerosis of chilkoot coronary artery of chilkoot heart with angina pectoris (HCC); Coronary artery disease involving chilkoot coronary artery of chilkoot heart without angina pectoris; History of heart artery stent; Left shoulder pain, unspecified chronicity; Essential hypertension; Mixed hyperlipidemia; PAD (peripheral artery disease) (HCC) Coronary artery dise ase involving chilkoot coronary artery of chilkoot heart with angina pectoris (HCC) (Primary Dx); Atherosclerosis of chilkoot coronary artery of chilkoot heart with angina pectoris (HCC); Coronary artery disease involving chilkoot coronary artery of chilkoot heart without angina pectoris; History of heart artery stent; Left shoulder pain, unspecified chronicity; Essential hypertension; Mixed hyperlipidemia; PAD (peripheral artery disease) (HCC); Chest pain, unspecified type Start: 06-11-2024 End: 06-11-2024 ambulatory [facility] Start: 06-10-2024 End: 06-10-2024 ambulatory TIMA TELLO Facility:[facility] Start: 06-10-2024 End: 06-10-2024 Office outpatient visit 25 minutes Fortunato Jurado APRN.DISASTER RECOVERY MANAGER Work Phone: [facility] [place] Comment on above: Mixed hyperlipidemia (Primary Dx); Essential hypertension; PAD (peripheral artery disease) (HCC); Coronary artery disease involving chilkoot coronary artery of chilkoot heart without angina pectoris Start: 06-08-2024 End: 06-08-2024 [facility] Start: 06-08-2024 End: 06-08-2024 Patient encounter procedure Velia Hendricks Clinical Communication Start: 05-21-2024 End: 05-21-2024 Patient encounter procedure Jazmyn Mas MD Work Phone: Pulmonary Medicine Comment on above: Malignant neoplasm o f upper lobe of right lung (HCC) (Primary Dx); Former cigarette smoker; Pulmonary air trapping Start: 05-14-2024 End: 05-14-2024 Telephone encounter Tima Tello MD Work Phone: [facility] [place] Comment on above: Patient Question Start: 05-06-2024 End: 05-06-2024 Patient encounter procedure Alejandra Viramontes APRN.DISASTER RECOVERY MANAGER Work Phone: [facility] [place] Comment on above: Left leg cellulitis (Primary Dx) Start: 05-06-2024 End: 05-06-2024 Telephone encounter Tima Tello MD Work Phone: [facility] [place] Comment on above: fax referral to Katherine Flores Start: 05-03-2024 End: 05-03-2024 Patient encounter procedure Alejandra Viramontes PULLER OVER.DISASTER RECOVERY MANAGER Work Phone: [facility] [place] Comment on above: Left leg cellulitis (Primary Dx) Start: 05-01-2024 End: 05-01-2024 Office outpatient visit 25 minutes Elijah Sanders PULLER OVER.DISASTER RECOVERY MANAGER Work Phone: [facility] Comment on above: Cellulitis of left l ower extremity (Primary Dx) Start: 05-01-2024 End: 05-01-2024 Telephone encounter Tima Tello MD Work Phone: [facility] [place] Comment on above: Patient Question Start: 04-04-2024 End: 04-05-2024 Telephone encounter Tima Tello MD Work Phone: [facility] Comment on above: Results Start: 03-20-2024 End: 03-20-2024 ambulatory Analy Dumont DO Work Phone: Hematology/Oncology Comment on above: Malignant neoplasm o f upper lobe of right lung (HCC) (Primary Dx); Malignant neoplasm of unspecified part of unspecified bronchus or lung (HCC) Start: 03-20-2024 End: 03-20-2024 Patient encounter procedure Analy Heather Ed DO Work Phone: Hematology/Oncology Start: 03-11-2024 Telephone encounter Morro Tello MD Work Phone: [facility] Comment on above: Results Start: 03-11-2024 End: 03-11-2024 Subsequent hospital visit by physician Jose Elias [facility] [place] Work Phone: Radiology Comment on above: Pain of toe of right foot [M79.674] Start: 03-11-2024 End: 03-11-2024 Patient encounter procedure Tima Tello MD Work Phone: [facility] Comment on above: Cold extremity witho ut peripheral vascular disease (Primary Dx); Other specified symptoms and signs involving the circulatory and respiratory systems; Pain of toe of right foot; Primary lung adenocarcinoma, right (HCC); S/P lobectomy of lung; Coronary artery disease involving chilkoot coronary artery of chilkoot heart without angina pectoris; Essential hypertension Start: 03-04-2024 Telephone encounter Charlene fernandez APRN.DISASTER RECOVERY MANAGER Work Phone: [facility] Comment on above: Referral Information Start: 02-29-2024 ambulatory [facility] Facility :[facility] Start: 02-29-2024 End: 02-29-2024 Subsequent hospital visit by physician Xr [place] [facility] Comment on above: S/P lobectomy of katalina g [Z90.2] Start: 02-29-2024 End: 02-29-2024 Patient encounter procedure Shaylee Woods APRN.DISASTER RECOVERY MANAGER Work Phone: [facility] Comment on above: S/P lobectomy of katalina g (Primary Dx); Adenocarcinoma, lung, right (HCC) Start: 02-29-2024 End: 02-29-2024 ambulatory SHAYLEE WOODS Facility:[facility] Start: 02-22-2024 Telephone encounter Nadege caba MD Work Phone: [facility] Comment on above: Patient Update (Pain medication) Start: 02-20-2024 Telephone encounter Chavez Almodovar [facility] Department Comment on above: Fabric Transition of Care Start: 02-17-2024 Telephone encounter Chavez Almodovar [facility] Department Comment on above: Fabric Transition of Care Start: 02-16-2024 ambulatory Mackeznie salas RN NURSE [employer]IPLE [employer]VE TESTER Comment on above: Medication Request Start: 02-16-2024 Telephone encounter Chavez Almodovar [facility] Department Comment on above: Fabric Transition of Care Start: 02-15-2024 Telephone encounter Chavez Almodovar [facility] Department Comment on above: Fabric Transition of Care Start: 02-09-2024 End: 02-14-2024 Evaluation and management of inpatient NADEGE TADEO Facility:[facility] Start: 01-30-2024 End: 01-30-2024 Refshawnee Tineo MD Work Phone: [facility] Cardiology Comment on above: 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 Start: 01-29-2024 End: 01-29-2024 ambulatory TIMA TELLO Facility:[facility] Start: 01-29-2024 Encounter for other preprocedural examination TIMA TELLO [facility] Start: 01-29-2024 End: 01-29-2024 Patient encounter procedure Fred Mckinney APRN.DISASTER RECOVERY MANAGER Work Phone: [facility] Comment on above: Right upper lobe pul monary nodule (Primary Dx); Coronary artery disease involving chilkoot coronary artery of chilkoot heart without angina pectoris; H/O heart artery stent; Essential hypertension; Pre-op exam Start: 01-29-2024 End: 01-29-2024 Preprocedural examination done Fred Mckinney APRN.DISASTER RECOVERY MANAGER Work Phone: [facility] Start: 01-29-2024 End: 01-29-2024 ambulatory [facility] Facility:[facility] Start: 01-27-2024 End: 01-27-2024 Telephone encounter Stu Mcdermott MD Work Phone: [facility] Cardiology Comment on above: Med Refill Start: 01-18-2024 Patient encounter status Nadege Tadeo MD Work Phone: [facility] Start: 01-18-2024 Telephone encounter Nadege caba MD Work Phone: [facility] Comment on above: Schedule Surgery; Or ders Start: 01-16-2024 End: 01-16-2024 Office outpatient visit 25 minutes Becky Tineo MD Work Phone: [facility] Cardiology Comment on above: Mixed hyperlipidemia (Primary Dx); Coronary artery disease involving chilkoot coronary artery of chilkoot heart without angina pectoris; Essential hypertension Start: 01-09-2024 Telephone encounter Nadege caba MD Work Phone: [facility] Comment on above: Cardiac Clearance (R eceived ) Start: 01-08-2024 End: 01-08-2024 Patient encounter procedure Nadege Tadeo MD Work Phone: [facility] Comment on above: Nodule of upper lobe of right lung [R91.1] (Primary Dx) Start: 01-08-2024 End: 01-08-2024 [facility] Facility:[facility] Start: 12-29-2023 Telephone encounter Stephen Adams MD Work Phone: Radiation Oncology Comment on above: Appointment Start: 12-29-2023 End: 12-29-2023 Patient encounter procedure Stephen Nunez MD Work Phone: Radiation Oncology Comment on above: Multiple lung nodule s; Former tobacco use Start: 12-22-2023 Telephone encounter Charo rodríguez PULLER OVER.DISASTER RECOVERY MANAGER Work Phone: [facility] Pulmonary Comment on above: Results Start: 12-15-2023 End: 12-15-2023 ambulatory TIMA GUARDADO Facility:[facility] Start: 12-14-2023 End: 12-14-2023 ambulatory Modesta Rivera MD Work Phone: Pulmonary Medicine Comment on above: Lung nodule (Primary Dx); Former tobacco use; Pre-operative respiratory examination Start: 12-14-2023 End: 12-14-2023 Repair venous blockage Modesta Rivera MD Work Phone: [facility] Start: 12-14-2023 End: 12-14-2023 Telemedicine consultation with patient Modesta Rivera MD Work Phone: Pulmonary Medicine Start: 12-13-2023 End: 12-13-2023 [facility] Work Phone: Cat Scan Comment on above: Lung nodule [R91.1] Start: 12-11-2023 Telephone encounter Charo rodríguez PULLER OVER.DISASTER RECOVERY MANAGER Work Phone: Pulmonary Medicine Comment on above: Results Start: 12-08-2023 End: 12-08-2023 Patient encounter procedure Tima Tello MD Work Phone: [facility] Comment on above: Medicare annual well ness visit, subsequent (Primary Dx); Essential hypertension; Mixed hyperlipidemia; Coronary artery disease involving chilkoot coronary artery of chilkoot heart without angina pectoris; Thrombocytopenia (HCC); Multiple lung nodules on CT; Tobacco use disorder Start: 12-06-2023 End: 12-06-2023 ambulatory Pulm Lab [facility] Work Phone: PULM LAB [facility] Comment on above: Spirometry Start: 12-06-2023 End: 12-06-2023 Patient encounter procedure Pulm Lab [facility] Work Phone: PULM LAB [facility] Start: 11-29-2023 End: 11-29-2023 Admission to establishment [facility] 1 Work Phone: Pre Anesthesia Start: 11-29-2023 End: 11-29-2023 Anesthesia consultation [facility] Work Phone: Pre Anesthesia Comment on above: Pre-op evaluation (P rimary Dx); Mixed hyperlipidemia; Essential hypertension; Coronary artery disease involving chilkoot coronary artery of chilkoot heart without angina pectoris; Abdominal aortic aneurysm (AAA) without rupture, unspecified part (HCC); Thrombocytopenia (HCC); At risk for sleep apnea; Penicillin allergy; Personal history of allergy to penicillin Start: 11-29-2023 End: 11-29-2023 Preprocedural examination done [facility] 1 Work Phone: [facility] Work Phone: Start: 11-24-2023 Telephone encounter Charo Lang rpsbrandon PULLER OVER.DISASTER RECOVERY MANAGER Work Phone: Pulmonary Medicine Start: 11-20-2023 Telephone encounter Charo rodríguez PULLER OVER.DISASTER RECOVERY MANAGER Work Phone: Pulmonary Medicine Comment on above: Appointment Start: 11-14-2023 Telephone encounter Charo rodríguez PULLER OVER.DISASTER RECOVERY MANAGER Work Phone: Pulmonary Medicine Comment on above: Appointment Start: 11-13-2023 ambulatory Rene gregorio MD Work Phone: Pulmonology Comment on above: Bronchoscopy Schedul ing Start: 11-13-2023 Patient encounter procedure Rene More MD Work Phone: Pulmonology Start: 11-08-2023 Telephone encounter Charo rodríguez PULLER OVER.DISASTER RECOVERY MANAGER Work Phone: Pulmonary Medicine Comment on above: Results Start: 11-06-2023 End: 11-06-2023 Patient encounter procedure Charo Tsai PULLER OVER.DISASTER RECOVERY MANAGER Work Phone: Pulmonary Medicine Comment on above: Multiple lung nodule s (Primary Dx); Former tobacco use; Lung nodules Start: 11-06-2023 End: 11-06-2023 Subsequent hospital visit by physician Ct [facility] (I-Stat) Work Phone: Cat Scan Comment on above: Lung nodules [R91.8] Start: 06-13-2023 Telephone encounter Morro Tello MD Work Phone: [facility] Comment on above: Results Start: 06-13-2023 End: 06-13-2023 Subsequent hospital visit by physician [facility] 2 Work Phone: Radiology Comment on above: Abdominal aortic ane urysm (AAA) without rupture, unspecified part (HCC) [I71.40] Start: 12-03-2022 Telephone encounter Hugo MARTINEZ Work Phone: [facility] Comment on above: Results Page out Start: 12-02-2022 End: 12-02-2022 Patient encounter procedure Rosario Doty SESAR.DISASTER RECOVERY MANAGER Work Phone: [facility] Comment on above: URI with cough and c ongestion (Primary Dx) Start: 11-01-2022 End: 11-01-2022 Office outpatient visit 25 minutes Becky Tineo MD Work Phone: [facility] Cardiology Comment on above: Hyperlipidemia, unsp ecified hyperlipidemia type (Primary Dx); Coronary artery disease involving chilkoot coronary artery of chilkoot heart without angina pectoris; Essential hypertension Start: 08-23-2022 End: 08-23-2022 ambulatory [facility] Work Phone: Start: 08-23-2022 End: 08-23-2022 Patient encounter procedure [facility] Start: 12-08-2021 Telephone encounter Morro Tello MD Work Phone: [facility] Comment on above: Results Start: 12-07-2021 End: 12-07-2021 Nursing evaluation of patient and report Mi Nurse Work Phone: [facility] Comment on above: Essential hypertensi on (Primary Dx) Start: 12-07-2021 Telephone encounter Morro Tello MD Work Phone: [facility] Comment on above: Blood Pressure Check Start: 11-23-2021 End: 11-23-2021 Patient encounter procedure Tima Tello MD Work Phone: [facility] Comment on above: 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); Essential hypertension; Thrombocytopenia (HCC); Psoriasis; History of tobacco use; Screening for HIV (human immunodeficiency virus) Start: 09-30-2020 End: 09-30-2020 Subsequent hospital visit by physician Becky Tineo Work Phone: [facility] [address] [facility] Comment on above: 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; Essential hypertension Start: 10-01-2018 End: 10-02-2018 Patient encounter procedure [facility] Facility:A Start: 09-27-2018 Patient encounter procedure [facility] Facility:A Procedures Date Procedure Procedure Detail Performing Clinician Start: 04-11-2025 Ct abdomen & pelvis w/contrast material Tima Tello MD Work Phone: Start: 04-08-2025 Colonoscopy flx dx w/collj spec when pfrmd Saray Marinelli APRN.DISASTER RECOVERY MANAGER Work Phone: Start: 04-08-2025 Esophagogastroduodenoscopy transoral diagnostic Saray Marinelli APRN.DISASTER RECOVERY MANAGER Work Phone: Start: 04-08-2025 Colonoscopy Mae Robles MD Work Phone: Start: 03-27-2025 Us abdominal real time w/image limited Saray Marinelli APRN.DISASTER RECOVERY MANAGER Work Phone: Start: 03-12-2025 In-vitro immunologic test Dr. Morro Tello MD Work Phone: Comment on above: QuantiFERON-TB Gold Plus is a qualitativ e indirect test forM tuberculosis infection (including disease) and isintended for use in conjunction with risk assessment,radiography, and other medical and diagnostic evaluations.The QuantiFERON-TB Gold Plus result is determined bysubtracting the Nil value from either TB antigen (Ag)value. The Mitogen tube serves as a control for the test. No response to M tub erculosis antigens detected.Infection with M tuberculosis is unlikely, but high riskindividuals should be considered for additional testing(ATS/IDSA/CDC Clinical Practice Guidelines, 2017). Thereference range is an Antigen minus Nil result of <0.35IU/mL.The specimen received for QuantiFERON testing was incubatedby the ordering institution. Specific procedures outlinedin our Directory of Services and in the package insert forthe QuantiFERON Gold (In Tube) test must be followed toenable for proper stimulation of cells for the productionof interferon gamma. Chemiluminescence immunoassaymethodologyPerformed at: - [facility] [address] [id number] Director: Curt Taylor PhD, Phone: [phone] Start: 11-13-2024 Ecg routine ecg w/least 12 lds trcg only w/o i&r Becky Tineo MD Work Phone: Start: 09-02-2024 Lipid 1996 panel - Serum or Plasma Ct (I -Stat) Work Phone: Start: 08-12-2024 End: 08-12-2024 Radex spine cervical 4 or 5 views Nan Ng PA-C Work Phone: Start: 07-31-2024 Radiologic exam chest single view Ez Jacksoner PULLER OVER - DISASTER RECOVERY MANAGER Work Phone: Start: 07-31-2024 Basic metabolic panel calcium total Andr ew Louie PULLER OVER - DISASTER RECOVERY MANAGER Work Phone: Start: 07-30-2024 Radiologic exam chest single view Ez Garcia PULLER OVER - DISASTER RECOVERY MANAGER Work Phone: Start: 07-30-2024 Basic metabolic panel calcium total Andr ew Louie PULLER OVER - DISASTER RECOVERY MANAGER Work Phone: Start: 07-29-2024 End: 07-29-2024 Basic metabolic panel calcium total Andr ew Garcia PULLER OVER - DISASTER RECOVERY MANAGER Work Phone: Start: 07-29-2024 Radiologic exam chest single view Ez Garcia PULLER OVER - DISASTER RECOVERY MANAGER Work Phone: Start: 07-28-2024 Basic metabolic panel calcium total Neha rebeca Fitch PULLER OVER - DISASTER RECOVERY MANAGER Work Phone: Start: 07-28-2024 Ecg routine ecg w/least 12 lds trcg only w/o i&r Charlene Fitch PULLER OVER - DISASTER RECOVERY MANAGER Work Phone: Start: 07-28-2024 Radiologic exam chest single view Ez Garcia PULLER OVER - DISASTER RECOVERY MANAGER Work Phone: Start: 07-28-2024 Basic metabolic panel calcium total Andr lorelei Garcia PULLER OVER - DISASTER RECOVERY MANAGER Work Phone: Start: 07-27-2024 Blood count complete automated Charlene Mayers Constantine PULLER OVER - DISASTER RECOVERY MANAGER Work Phone: Start: 07-27-2024 Glucose quantitative blood xcpt reagent strip Brooklynn Martinez DO Work Phone: Start: 07-27-2024 Ecg routine ecg w/least 12 lds trcg only w/o i&r Ez Garcia PULLER OVER - DISASTER RECOVERY MANAGER Work Phone: Start: 07-27-2024 Radiologic exam chest single view Ez Garcia PULLER OVER - DISASTER RECOVERY MANAGER Work Phone: Start: 07-26-2024 Glucose quantitative blood xcpt reagent strip Brooklynn Martinez DO Work Phone: Start: 07-26-2024 End: 07-27-2024 Basic metabolic panel calcium total Neha rebeca Fitch PULLER OVER - DISASTER RECOVERY MANAGER Work Phone: Start: 07-26-2024 Glucose quantitative blood xcpt reagent strip Brooklynn Martinez DO Work Phone: Start: 07-26-2024 Radiologic exam chest single view Ez Garcia PULLER OVER - DISASTER RECOVERY MANAGER Work Phone: Start: 07-26-2024 Blood count complete automated Ez perez PULLER OVER - DISASTER RECOVERY MANAGER Work Phone: Start: 07-26-2024 Ecg routine ecg w/least 12 lds trcg only w/o i&r Ez Garcia PULLER OVER - DISASTER RECOVERY MANAGER Work Phone: Start: 07-26-2024 Glucose quantitative blood xcpt reagent strip Brooklynn Martinez DO Work Phone: Start: 07-26-2024 End: 07-26-2024 Glucose quantitative blood xcpt reagent strip Brooklynn Juan DO Work Phone: Start: 07-26-2024 End: 07-26-2024 Basic metabolic panel calcium total Andr ew Louie PULLER OVER - DISASTER RECOVERY MANAGER Work Phone: Start: 07-25-2024 End: 07-25-2024 Blood count hematocrit Yara Flowers PULLER OVER - DISASTER RECOVERY MANAGER Work Phone: Start: 07-25-2024 End: 07-25-2024 Glucose quantitative blood xcpt reagent strip Brooklynn Martinez DO Work Phone: Start: 07-25-2024 Compatibility each unit electronic Yara Flowers PULLER OVER - DISASTER RECOVERY MANAGER Work Phone: Start: 07-25-2024 End: 07-25-2024 TRANSFUSE RED BLOOD CELLS Yara garza PULLER OVER - DISASTER RECOVERY MANAGER Work Phone: Start: 07-25-2024 Glucose quantitative blood xcpt reagent strip Brooklynn Martinez DO Work Phone: Start: 07-25-2024 Cryoprecipitate each unit Yara garza PULLER OVER - DISASTER RECOVERY MANAGER Work Phone: Start: 07-25-2024 End: 07-25-2024 TRANSFUSE CRYOPRECIPITATE Yara garza PULLER OVER - DISASTER RECOVERY MANAGER Work Phone: Start: 07-25-2024 End: 07-25-2024 Glucose quantitative blood xcpt reagent strip Brooklynn Martinez DO Work Phone: Start: 07-25-2024 End: 07-25-2024 TRANSFUSE CRYOPRECIPITATE Yara garza PULLER OVER - DISASTER RECOVERY MANAGER Work Phone: Start: 07-25-2024 End: 07-25-2024 TRANSFUSE RED BLOOD CELLS Yara garza PULLER OVER - DISASTER RECOVERY MANAGER Work Phone: Start: 07-25-2024 End: 07-25-2024 Blood count complete automated Yaranupur sarmiento PULLER OVER - DISASTER RECOVERY MANAGER Work Phone: Start: 07-25-2024 WILTON Mosley MD Work Phone: Start: 07-25-2024 Echo transesophag r-t 2d w/prb img acquisj i&r Brooklynn Martinez DO Work Phone: Start: 07-25-2024 Radiologic exam chest single view Ez Garcia PULLER OVER [employer] DISASTER RECOVERY MANAGER Work Phone: Start: 07-25-2024 Basic metabolic panel calcium total Yara Flowers PULLER OVER [employer] DISASTER RECOVERY MANAGER Work Phone: Start: 07-25-2024 Blood gases any combination ph pco2 po2 co2 hco3 Yara Flowers PULLER OVER [employer] DISASTER RECOVERY MANAGER Work Phone: Start: 07-25-2024 Ecg routine ecg w/least 12 lds trcg only w/o i&r Ez Garcia PULLER OVER [employer] DISASTER RECOVERY MANAGER Work Phone: Start: 07-25-2024 End: 07-25-2024 Basic metabolic panel calcium total Rich lazaro Martinez DO Work Phone: Start: 07-25-2024 Blood gases any combination ph pco2 po2 co2 hco3 Brooklynn Martinez DO Work Phone: Start: 07-25-2024 ANESTHESIA ARTERIAL LINE PLACEMENT Dewayne Rodriges PULLER OVER - SALES ATTENDANT Work Phone: Start: 07-25-2024 HCS INTRODUCER - DOUBLE LUMEN Dewayne wong PULLER OVER - SALES ATTENDANT Work Phone: Start: 07-25-2024 Us vasc access sits vsl patency ndl entry Dewayne Rodriges PULLER OVER - SALES ATTENDANT Work Phone: Start: 07-25-2024 End: 07-25-2024 Cabg w/arterial graft three arterial grafts Brooklynn Martinez DO Work Phone: Start: 07-25-2024 End: 07-25-2024 Echo transesophag r-t 2d w/prb img acquisj i&r Brooklynn Martinez DO Work Phone: Start: 07-18-2024 Antibody screen BROOKLYNN MARTINEZ Comment on above: Performed By: #### [id number] ####Medical Di bren: ALEKSANDRA NUNEZ ([id number])[facility] ([facility])[address] Start: 07-05-2024 Cardiac catheterization study Horace Ivis Martinez APRN - DISASTER RECOVERY MANAGER Work Phone: Start: 06-25-2024 Echo tthrc r-t 2d w/wo m-mode rest&strs cont ecg Horace Ivis Martinez APRN - DISASTER RECOVERY MANAGER Work Phone: Start: 06-11-2024 Ecg routine ecg w/least 12 lds trcg only w/o i&r Becky Tineo MD Work Phone: Start: 06-10-2024 Lipid 1996 panel - Serum or Plasma Fortunato Jurado APRN.DISASTER RECOVERY MANAGER Work Phone: Start: 03-11-2024 Radex foot complete minimum 3 views Chri phill Tello MD Work Phone: Start: 01-29-2024 Antibody screen TIMA TELLO Comment on above: Order Comment: Specimen Type: BLOOD SPEC IMENOrdering Facility: [facility] Address: [address] [place] [address] Performed By: #### T [id number] ####[facility] [id number] [place] [address] [place] Start: 01-16-2024 Ecg routine ecg w/least 12 lds trcg only w/o i&r Becky Tineo MD Work Phone: Start: 12-08-2023 Adult depression screening assessment Shawn Tadeo MD Work Phone: Start: 12-06-2023 End: 12-06-2023 Brncdilat rspse spmtry pre&post-brncdilat admn Charo Tsai APRN.DISASTER RECOVERY MANAGER Work Phone: Start: 11-29-2023 Ecg routine ecg w/least 12 lds i&r only [facility] Provider Start: 11-29-2023 Lipid 1996 panel - Serum or Plasma Pulm Wstr Work Phone: Start: 11-06-2023 Ct thorax w/o contrast material Charo Polancopster PULLER OVER.DISASTER RECOVERY MANAGER Work Phone: Start: 06-13-2023 Us retroperitoneal real time w/image limited Tima Tello MD Work Phone: Start: 06-09-2023 Lipid 1996 panel - Serum or Plasma Gregorio Tello MD Work Phone: Start: 11-01-2022 Ecg routine ecg w/least 12 lds trcg only w/o i&r Becky Tineo MD Work Phone: Start: 12-07-2021 Lipid 1996 panel - Serum or Plasma Yara Flowers PULLER OVER - DISASTER RECOVERY MANAGER Work Phone: Start: 08-03-2021 [facility] Tima Tello MD Work Phone: Start: 05-07-2021 Adult depression screening assessment aleisha Tello MD Work Phone: Start: 09-30-2020 Comprehensive metabolic panel Becky pavon Work Phone: Start: 09-30-2020 Lipid panel Becky Tineo Work Phone: Start: 09-30-2020 Lipid 1996 panel - Serum or Plasma Becky Tineo MD Work Phone: H/O: surgery History of thoracotomy Nadege Tadeo MD Work Phone: History of coronary artery bypass grafting S/P CABG (coronary artery bypass graft) Brooklynn Martinez DO Work Phone: History of coronary artery bypass grafting S/P CABG (coronary artery bypass graft) Yara Flowers PULLER OVER - DISASTER RECOVERY MANAGER Work Phone: History of coronary artery bypass grafting S/P CABG (coronary artery bypass graft) Yara Flowers PULLER OVER - DISASTER RECOVERY MANAGER Work Phone: History of coronary artery bypass grafting S/P triple vessel bypass Alejandra Viramontes PULLER OVER.DISASTER RECOVERY MANAGER Work Phone: History of coronary artery bypass grafting S/P CABG (coronary artery bypass graft) Yara Flowers PULLER OVER - DISASTER RECOVERY MANAGER Work Phone: History of coronary artery bypass grafting S/P CABG (coronary artery bypass graft) Yara Flowers PULLER OVER - DISASTER RECOVERY MANAGER Work Phone: History of coronary artery bypass grafting S/P CABG (coronary artery bypass graft) Becky Tineo MD Work Phone: History of placement of stent for coronary artery disease H/O heart artery stent Fred Mckinney PULLER OVER.DISASTER RECOVERY MANAGER Work Phone: History of placement of stent for coronary artery disease History of heart artery stent Horace Martinez PULLER OVER - DISASTER RECOVERY MANAGER Work Phone: Plan of Treatment Date Care Activity Detail Author Start: 04-08-2035 Screening for malignant neoplasm of colon [facility] Start: 08-03-2031 Colonoscopy COLONOSCOPY [facility] Start: 08-03-2031 COLORECTAL CANCER SCREENING COLORECTAL CANCER SCREENING [facility] Start: 08-03-2031 Screening for malignant neoplasm of colon [facility] Start: 2030 RSV Vaccine (1 - 1-dose 75+ series) RSV Vaccine (1 - 1-dose 75+ series) [facility] Start: 09-02-2029 Lipid panel [facility] Start: 06-10-2029 Lipid panel Lipid Screening [facility] Start: 11-28-2028 Lipid panel Lipid Screening [facility] Start: 06-09-2028 Lipid 1996 panel - Serum or Plasma Lipid Screening [facility] Start: 06-09-2028 Lipid panel Lipid Screening [facility] Start: 03-19-2028 Diabetes Screening Diabetes Screening [facility] Start: 07-31-2027 Diabetes Screening Diabetes Screening [facility] Start: 06-28-2027 Diabetes Screening Diabetes Screening [facility] Start: 02-09-2027 Diabetes Screening Diabetes Screening [facility] Start: 01-28-2027 Diabetes Screening Diabetes Screening [facility] Start: 12-07-2026 Lipid panel Lipid Panel [facility] Start: 12-07-2026 LIPID SCREEN LIPID SCREEN [facility] Start: 11-28-2026 Diabetes Screening Diabetes Screening [facility] Start: 06-09-2026 Diabetes Screening Diabetes Screening [facility] Start: 05-07-2026 PROSTATE CANCER SCREENING DISCUSSION PROSTATE CANCER SCREENING DISCUSSION [facility] Start: 05-07-2026 Prostate specific antigen measurement Prostate Cancer Screening Discussion [facility] Start: 03-19-2026 Annual PCP Team Chronic Disease Visit Annual PCP Team Chronic Disease Visit [facility] Start: 03-19-2026 Screening for malignant neoplasm of colon [facility] Start: 11-19-2025 End: 11-19-2025 Patient encounter procedure 11/19/2025 2:15 PM EDT Office Visit [facility] - [place] [address] [place] [address] Becky Tineo MD [address] [address] [facility] Start: 11-11-2025 End: 11-11-2025 Patient encounter procedure Vasculary Surgery Comment on above: Dx: Bilateral carotid artery stenosis [I 65.23] Dx: Peripheral arter ial disease [I73.9] Dx: Abdominal aortic aneurysm (AAA) without rupture, unspecified part [I71.40]; Infrarenal abdominal aortic aneurysm, without rupture [I71.43] 6 month follow up Start: 10-13-2025 End: 10-13-2025 ambulatory 10/13/2025 8:00 AM EDT Visit (SP) Office Hematology/Oncology [address] [place] [address] Reanna Cervantes APRN.DISASTER RECOVERY MANAGER [address] [place] [address] 6MO OV Hematology/Oncology Comment on above: 6MO OV Start: 10-08-2025 End: 10-08-2025 ambulatory 10/08/2025 9:10 AM EDT Visit (SP) Office Hematology/Oncology [address] [place] [address] Analy Dumont DO [address] [place] [address] 6MO OV*/ LABS AND CT2/23 Hematology/Oncology Comment on above: 6MO OV*/ LABS AND CT09/22 Start: 10-06-2025 End: 10-06-2025 Patient encounter procedure 10/06/2025 8:40 AM EDT Appointment Cat Scan [address] [place] [address] Dx: Malignant neoplasm of unspecified part of unspecified bronchus or lung (HCC) [C34.90] Cat Scan Comment on above: Dx: Malignant neoplasm of unspecified pa rt of unspecified bronchus or lung (HCC) [C34.90] Start: 10-06-2025 End: 10-06-2025 ambulatory 10/06/2025 8:15 AM EDT Results Only Nicko Shaw [facility] [address] [place] [address] serum creatnine* [place] [facility] Comment on above: serum creatnine* Start: 09-30-2025 Lipid panel Lipid Panel [facility] Start: 09-29-2025 End: 09-29-2025 Patient encounter procedure 09/29/2025 9:00 AM EST Appointment [facility] Non-Invasive Cardiology [address], [place] [id number] Becky Tineo MD 95 [facility] [address] [place] [address] [facility] Non-Invasive Cardiology Start: 09-24-2025 BP Controlled (<130/80) BP Controlled (<130/80) [facility] Start: 09-22-2025 End: 09-22-2025 Patient encounter procedure 09/22/2025 9:20 AM EST Appointment Cat Scan [address] [place] [address] Primary lung adenocarcinoma, 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] Cat Scan Comment on above: Primary lung adenocarcinoma, 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] Start: 09-22-2025 End: 09-22-2025 ambulatory 09/22/2025 9:00 AM EST Results Only [facility] Laboratory [address] [place] [place] [id number] serum creatnine* Nick[facility] Shaw [facility] Laboratory Comment on above: serum creatnine* Start: 09-17-2025 Annual PCP Team Chronic Disease Visit Annual PCP Team Chronic Disease Visit [facility] Start: 09-17-2025 BP Controlled (<130/80) BP Controlled (<130/80) [facility] Start: 09-09-2025 BP Controlled (<130/80) BP Controlled (<130/80) [facility] Start: 09-02-2025 Hepatitis B surface antibody level LDL Cholesterol [facility] Start: 07-31-2025 Creatinine measurement Creatinine Level [facility] Start: 07-31-2025 Potassium measurement Potassium Level [facility] Start: 07-26-2025 Creatinine measurement Creatinine Level [facility] Start: 07-26-2025 Potassium measurement Potassium Level [facility] Start: 07-25-2025 Diabetes mellitus screening Diabetes Screening [facility] Start: 07-25-2025 Echocardiography Echocardiogram [facility] Start: 07-18-2025 Creatinine measurement Creatinine Level [facility] Start: 07-18-2025 Potassium measurement Potassium Level [facility] Start: 06-10-2025 Annual PCP Team Chronic Disease Visit Annual PCP Team Chronic Disease Visit [facility] Start: 06-10-2025 BP Controlled (<130/80) BP Controlled (<130/80) [facility] Start: 06-10-2025 Covid-19 Vaccine ( season) Covid-19 Vaccine () [facility] Comment on above: Postponed from 03/31/2024 (Declined at t his time) Start: 06-10-2025 Hepatitis B surface antibody level LDL Cholesterol [facility] Start: 05-21-2025 BP Controlled (<130/80) BP Controlled (<130/80) [facility] Start: 05-14-2025 End: 05-14-2025 ambulatory 05/14/2025 8:50 AM EDT Visit (SP) Office Hematology/Oncology [address] [place] [place] [id number] Analy Dumont DO [address] [place] [phone] 4-6WK OV Hematology/Oncology Comment on above: 4-6WK OV Start: 05-06-2025 Annual PCP Team Chronic Disease Visit Annual PCP Team Chronic Disease Visit [facility] Start: 05-06-2025 BP Controlled (<130/80) BP Controlled (<130/80) [facility] Start: 05-03-2025 Annual PCP Team Chronic Disease Visit Annual PCP Team Chronic Disease Visit [facility] Start: 04-21-2025 End: 04-21-2025 Patient encounter procedure 04/21/2025 7:20 AM EDT Office Visit Family Medicine [place] [address] [facility] [place], [place] [id number] PodlogarAlejandra APRN.DISASTER RECOVERY MANAGER [address] [facility], [place] [address] 4 week follow up Family Medicine [place] Comment on above: 4 week follow up Start: 04-15-2025 End: 04-15-2025 Patient encounter procedure General Surgery Comment on above: 04-08 EGD & Colonoscopy follow up FU: EGD & Colonoscop y follow up; 04/08/2025. C Atherosclerotic ulce r of aorta [I70.0, I71.9]; Abdominal aortic aneurysm (AAA) without rupture, unspecified part [I71.40] Start: 04-11-2025 End: 04-11-2025 Patient encounter procedure Cat Scan Comment on above: Dx: Melena [K92.1]; Generalized abdomina l pain [R10.84] Patient needs to go to CT at 1020... Start: 04-09-2025 End: 04-09-2025 ambulatory 04/09/2025 9:10 AM EDT Visit (SP) Office Hematology/Oncology [address] [place], [place] [phone] Analy Dumont DO [address] [place], [place] [phone] OV Hematology/Oncology Comment on above: OV Start: 04-08-2025 End: 04-08-2025 Patient encounter procedure 04/08/2025 3:00 PM EDT Appointment Ambulatory Surgery [address] [place], [place] [id number] Mae Robles MD [address] [place] [phone] EGD & Colonoscopy Ambulatory Surgery Comment on above: EGD & Colonoscopy Start: 03-31-2025 COVID-19 Vaccine () COVID-19 Vaccine () [facility] Start: 03-31-2025 Influenza vaccination [facility] Start: 03-27-2025 End: 03-27-2025 Patient encounter procedure 03/27/2025 7:00 AM EDT Appointment Radiology [address], [place] [phone] Nausea [R11.0]; RUQ abdominal pain [R10.11] Radiology Comment on above: Nausea [R11.0]; RUQ abdominal pain [R10. 11] Start: 03-26-2025 End: 03-26-2025 Patient encounter procedure Pulmonary Medicine Comment on above: 6 MTH F/U Start: 03-25-2025 End: 03-25-2025 Patient encounter procedure 03/25/2025 10:15 AM EDT Office Visit General Surgery [address], [place] [phone] Enrique Selby MD [address], [place] [phone] Dx: Chronic constipation [K59.09]; Melena [K92.1] General Surgery Comment on above: Dx: Chronic constipation [K59.09]; Melen a [K92.1] Start: 03-25-2025 End: 03-25-2025 Patient encounter procedure Cat Scan Comment on above: Dx: Melena [K92.1]; Generalized abdomina l pain [R10.84] Start: 03-24-2025 End: 03-24-2025 Patient encounter procedure 03/24/2025 10:30 AM EDT Office Visit Pulmonary Medicine [address] [place], [place] [phone] Jazmyn Mas MD [address] [place] [address] 6 MTH F/U Pulmonary Medicine Comment on above: 6 MTH F/U Start: 03-21-2025 End: 03-21-2025 Patient encounter procedure 03/21/2025 9:00 AM EDT Office Visit General Surgery [address] [place] [address] Saray Marinelli APRN.DISASTER RECOVERY MANAGER [address] [place] [address] Positive Fecal Blood Test General Surgery Comment on above: Positive Fecal Blood Test Start: 03-20-2025 BP Controlled (<130/80) BP Controlled (<130/80) [facility] Start: 03-19-2025 End: 06-18-2025 CBC W Auto Differential panel - Blood [facility] Comment on above: Expected: 03/19/2025, Expires: Start: 03-19-2025 End: 06-18-2025 Comprehensive metabolic 2000 panel - Serum or Plasma [facility] Comment on above: Expected: 03/19/2025, Expires: Start: 03-19-2025 End: 03-19-2025 Patient encounter procedure 03/19/2025 7:20 AM EDT Office Visit Family [facility] [address] [place] [address] Tima Tello MD [address] [facility] [place] [address] FOLLOW UP Family [facility] Comment on above: FOLLOW UP Start: 03-17-2025 End: 03-17-2025 Patient encounter procedure 03/17/2025 9:40 AM EDT Office Visit Family Medicine [place] [address] [place] [address] Tima Tello MD [address] [facility] [place] [address] 6 month follow up Family Medicine [place] Comment on above: 6 month follow up Start: 03-17-2025 End: 03-17-2025 ambulatory 03/17/2025 8:30 AM EDT Visit (SP) Office Hematology/Oncology [address] [place] [phone] Analy Dumont DO [address] [place] [address] 6MO OV/CT 03/10* Hematology/Oncology Comment on above: 6MO OV/CT 03/10* Start: 03-11-2025 Annual PCP Team Chronic Disease Visit Annual PCP Team Chronic Disease Visit [facility] Start: 03-10-2025 End: 03-10-2025 Patient encounter procedure 03/10/2025 8:40 AM EDT Appointment Cat Scan [address] [place] [place] [id number] Malignant neoplasm of unspecified part of unspecified bronchus or lung (HCC) [C3... Cat Scan Comment on above: Malignant neoplasm of unspecified part o f unspecified bronchus or lung (HCC) [C3... Start: 03-09-2025 End: 06-08-2025 CREATININE BLD CREATININE BLD Lab Routine Malignant neoplasm of unspecified part of unspecified bronchus or lung (HCC) S/P lobectomy of lung Expected: 03/09/2025 (Approximate), Expires: 06/08/2025 [facility] Comment on above: Expected: 03/09/2025 (Approximate), Expi res: 06/08/2025 Start: 03-09-2025 End: 10-09-2025 CT Chest W contrast IV CT CHEST W IVCON Radiology Routine Malignant neoplasm of unspecified part of unspecified bronchus or lung (HCC) S/P lobectomy of lung Expected: 03/09/2025 (Approximate), Expires: 10/09/2025 [facility] Work Phone: Comment on above: Expected: 03/09/2025 (Approximate), Expi res: 10/09/2025 Start: 02-28-2025 BP Controlled (<130/80) BP Controlled (<130/80) [facility] Start: 01-28-2025 BP Controlled (<130/80) BP Controlled (<130/80) [facility] Start: 01-27-2025 Influenza vaccination Influenza Vaccine (#1) [place] [facility] Comment on above: Postponed from 03/31/2024 (Declined at t his time) Start: 01-07-2025 BP Controlled (<130/80) BP Controlled (<130/80) [facility] Start: 01-06-2025 Medicare Annual Wellness (AWV) Medicare Annual Wellness (AWV) [facility] Start: 12-12-2024 Screening for malignant neoplasm of lung Lung Cancer Screening [facility] Start: 12-07-2024 Annual PCP Team Chronic Disease Visit Annual PCP Team Chronic Disease Visit [facility] Start: 12-07-2024 Anxiety Screening Anxiety Screening [facility] Start: 12-07-2024 BP Controlled (<130/80) BP Controlled (<130/80) [facility] Start: 12-07-2024 Depression Screening Depression Screening [facility] Start: 12-07-2024 DIABETES SCREEN DIABETES SCREEN [facility] Start: 12-07-2024 Medicare Annual Wellness Visit Medicare Annual Wellness Visit [facility] Start: 11-28-2024 Hepatitis B surface antibody level LDL Cholesterol [facility] Start: 11-13-2024 End: 11-13-2026 Heart Transthoracic Transthoracic echocardiogram (TTE) complete with contrast, bubble, strain, and 3D PRN CV Echocardiography Routine Coronary artery disease involving chilkoot coronary artery of chilkoot heart without angina pectoris S/P CABG (coronary artery bypass graft) Expected: 11/13/2024 (Approximate), Expires: 11/13/2026 [facility] Work Phone: Comment on above: Expected: 11/13/2024 (Approximate), Expi res: 11/13/2026 Start: 11-13-2024 End: 11-13-2024 Patient encounter procedure [facility] Cardiology Start: 11-05-2024 Screening for malignant neoplasm of lung Lung Cancer Screening [facility] Start: 10-17-2024 LIPID SCREEN LIPID SCREEN [facility] Start: 09-24-2024 End: 09-24-2024 Patient encounter procedure 09/24/2024 8:00 AM EST Office Visit Pulmonary Medicine [address] [place] [address] Gisselle Phelan APRN.DISASTER RECOVERY MANAGER [address] [place] [address] 4 MTH F/U Pulmonary Medicine Comment on above: 4 MTH F/U Start: 09-13-2024 End: 09-13-2024 Patient encounter procedure 09/13/2024 9:00 AM EST Office Visit Family Medicine [place] [address] [place] [address] TannerlogAlejandra alcala APRN.DISASTER RECOVERY MANAGER [address] [place] [address] 3 month follow up Family Medicine [place] Comment on above: 3 month follow up Start: 09-09-2024 End: 09-09-2024 ambulatory Hematology/Oncology Comment on above: 6 MO OV/CT 2/3* 6 MO OV/CT 2/7* Start: 09-02-2024 End: 12-02-2024 CREATININE BLD CREATININE BLD Lab Routine Malignant neoplasm of upper lobe of right lung (HCC) Malignant neoplasm of unspecified part of unspecified bronchus or lung (HCC) Expected: 09/02/2024, Expires: 12/02/2024 [facility] Comment on above: Expected: 09/02/2024, Expires: Start: 09-02-2024 End: 09-02-2024 Patient encounter procedure 09/02/2024 8:40 AM EST Appointment Cat Scan [address] [place] [address] Malignant neoplasm of unspecified part of unspecified bronchus or lung (HCC) [C34.90] Cat Scan Comment on above: Malignant neoplasm of unspecified part o f unspecified bronchus or lung (HCC) [C34.90] Start: 09-02-2024 End: 09-02-2024 ambulatory 09/02/2024 8:15 AM EST Results Only [place] [facility] Laboratory [address] [place] [address] CREATININE(S)* [facility] Laboratory Comment on above: CREATININE(S)* Start: 08-31-2024 End: 11-30-2024 Lipid 1996 panel - Serum or Plasma LIPID PANEL BASIC Lab Routine Hyperlipidemia, mixed Expected: 08/31/2024 (Approximate), Expires: 11/30/2024 [facility] Work Phone: Comment on above: Expected: 08/31/2024 (Approximate), Expi res: 11/30/2024 Start: 08-28-2024 End: 08-28-2024 Telemedicine consultation with patient 08/28/2024 1:00 PM EST Telemedicine [facility] [place] [address] [place] [address] Yara Flowers, PULLER OVER - DISASTER RECOVERY MANAGER [address] [place] [address] [facility] [place] Start: 08-14-2024 End: 08-14-2024 Patient encounter procedure 08/14/2024 11:30 AM EST Office Visit [facility] [place] [address] [place] [address] Yara Flowers, PULLER OVER - DISASTER RECOVERY MANAGER [address] [place] [address] [facility] [place] Start: 08-12-2024 End: 08-12-2024 Patient encounter procedure Radiology Comment on above: lt shoulder lt shoulder pain - r eferral in scanned docs Start: 07-31-2024 Advance Directive Discussion Advance Directive Discussion [facility] Start: 07-25-2024 End: 07-25-2024 Admission to same day surgery center 07/25/2024 7:30 AM EST - 07/25/2024 12:30 PM EST Surgery [facility] OR [address] [place] [phone] Brooklynn Martinez DO [address] [place] [address] CORONARY ARTERY BYPASS GRAFT [81764 (CPT )] [facility] Comment on above: CORONARY ARTERY BYPASS GRAFT [42347 (CPT )] Start: 07-25-2024 End: 07-25-2024 Anesthesia consultation 07/25/2024 7:30 AM EST Anesthesia Event [facility] [address] [facility] [place] [phone] Xander Sandoval PA-C [address] [place] [address] [facility] OR Start: 07-25-2024 End: 07-25-2024 Cabg w/arterial graft three arterial grafts CORONARY ARTERY BYPASS GRAFT X3 ARTERIAL GRAFTS 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) 07/25/2024 7:30 AM EST [facility] Operating Room Start: 07-25-2024 End: 07-25-2024 Echo transesophag r-t 2d w/prb img acquisj i&r Echocardiography transesophageal real-time 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) 07/25/2024 7:30 AM EST [facility] Start: 07-25-2024 Subsequent hospital visit by physician 07/25/2024 7:30 AM EST Hospital Encounter [facility] [address] [place] [phone] Brooklynn Martinez DO [address] [place] [address] [facility] Start: 07-18-2024 End: 07-18-2024 Admission to establishment 07/18/2024 1:00 PM EST Pre-Admission Testing [facility] Pre-Admit Testing [address] [place] [address] [facility] Pre-Admit Testing Start: 07-10-2024 End: 07-10-2024 Patient encounter procedure 07/10/2024 12:30 PM EST Office Visit [facility] [place] [address] [place] [phone] Brooklynn Martinez DO [address] [address] [facility] [place] Start: 07-05-2024 End: 07-05-2024 Admission to same day surgery center 07/05/2024 10:00 AM EST - 07/05/2024 11:00 AM EST Surgery [facility] Cath/EP Lab [address] [place] [phone] Becky Tineo MD [address] [address] Left heart cath / coronary angiography [facility] Comment on above: Left heart cath / coronary angiography Start: 07-05-2024 Subsequent hospital visit by physician 07/05/2024 10:00 AM EST Hospital Encounter [facility]EP [facility] [address] [place] [address] Becky Tineo MD [address] [address] 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); Abnormal stress echocardiogram [facility] Comment on above: 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); Abnormal stress echocardiogram Start: 07-04-2024 End: 07-04-2024 Patient encounter procedure 07/04/2024 8:30 AM EST Office Visit [facility] Cardiology [facility] [address] [place] [phone] Horace Martinez, PULLER OVER - DISASTER RECOVERY MANAGER [address] [place] [phone] [facility] Cardiology [facility] Start: 06-25-2024 End: 06-25-2024 Patient encounter procedure 06/25/2024 8:00 AM EST Appointment [facility] [address] Non-Invasive Cardiology 95 [place] [phone] Horace Martinez, PULLER OVER - DISASTER RECOVERY MANAGER [address] [place] [phone] [facility] [address] Non-Invasive Cardiology Start: 06-11-2024 End: 06-11-2026 Stress echocardiogram (TTE) exercise with contrast, bubble, strain, and 3D PRN [facility] Work Phone: Comment on above: Expected: 06/11/2024 (Approximate), Expi res: 06/11/2026 Start: 06-11-2024 End: 06-11-2024 Patient encounter procedure 06/11/2024 9:30 AM EST Office Visit [facility] [place] [address] [place] [facility] [address] Horace Martinez, PULLER OVER - DISASTER RECOVERY MANAGER [address] [place] [address] [facility] [place] Start: 06-10-2024 End: 09-09-2024 Lipid 1996 panel - Serum or Plasma [facility] Work Phone: Comment on above: Expected: 06/10/2024, Expires: Start: 06-10-2024 End: 06-10-2024 Patient encounter procedure Family Medicine [place] Comment on above: 3 month follow up Start: 06-09-2024 Annual PCP Team Chronic Disease Visit Annual PCP Team Chronic Disease Visit [facility] Start: 06-09-2024 BP Controlled (<130/80) BP Controlled (<130/80) [facility] Start: 06-09-2024 Covid-19 Vaccine () Covid-19 Vaccine ( season) [facility] Comment on above: Postponed from 03/31/2023 (Declined at t his time) Start: 06-09-2024 Hepatitis B surface antibody level LDL Cholesterol [facility] Start: 06-09-2024 Pneumococcal Vaccine: 65+ (1 - PCV) Pneumococcal Vaccine: 65+ (1 - PCV) [facility] Comment on above: Postponed from 2020 (Declined at t his time) Start: 06-09-2024 Pneumococcal Vaccine: 65+ (1 of 1 - PCV) Pneumococcal Vaccine: 65+ (1 of 1 - PCV) [facility] Comment on above: Postponed from 2020 (Declined at t his time) Start: 06-09-2024 RSV Vaccine (1 - 1-dose 60+ series) RSV Vaccine (1 - 1-dose 60+ series) [facility] Comment on above: Postponed from 2015 (Declined at t his time) Start: 06-09-2024 RSV Vaccine (1 - Risk 60-74 years 1-dose series) RSV Vaccine (1 - Risk 60-74 years 1-dose series) [facility] Comment on above: Postponed from 2015 (Declined at t his time) Start: 06-09-2024 Shingrix Vaccine (1 of 2) Shingrix Vaccine (1 of 2) [facility] Comment on above: Postponed from 2005 (Declined at t his time) Start: 06-09-2024 Urine microalbumin profile DTaP,Tdap,Td Vaccine (1 - Tdap) [facility] Comment on above: Postponed from 1974 (Declined at t his time) Start: 05-21-2024 End: 05-21-2024 Patient encounter procedure 05/21/2024 8:45 AM EDT Office Visit Pulmonary Medicine [address] [place] [address] Jazmyn Mas MD [address] [place] [address] Adenocarcinoma, lung, 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] Pulmonary Medicine Comment on above: Adenocarcinoma, lung, right (HCC) [C34.9 1] Start: 05-06-2024 End: 05-06-2024 Patient encounter procedure 05/06/2024 3:20 PM EDT Office Visit Family [place] [facility] [address] [place], [place] [address] PodAlejandra cherry APRN.DISASTER RECOVERY MANAGER [address] [place] [address] Follow up Family Medicine [place] Comment on above: Follow up Start: 05-03-2024 End: 05-03-2024 Patient encounter procedure 05/03/2024 11:40 AM EDT Office Visit Family Medicine [place] [address] [facility] [place] [address] Alejandra Viramontes APRN.DISASTER RECOVERY MANAGER [address] [facility] [place] [address] urg care follow up Family Medicine [place] Comment on above: urg care follow up Start: 03-31-2024 Covid-19 Vaccine ( season) Covid-19 Vaccine () [facility] Start: 03-31-2024 Covid-19 Vaccine () Covid-19 Vaccine () [facility] Start: 03-31-2024 Influenza vaccination [facility] Start: 03-20-2024 End: 03-20-2024 ambulatory 03/20/2024 1:00 PM EDT Visit (SP) Office Hematology/Oncology [address] [place] [address] Analy Dumont DO [address] [place], [place] [phone] 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, RT/REF SHAYLEE WOODS/FIRST AVAILABLE* Hematology/Oncology Comment on above: 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 CANCER, RT/REF SHAYLEE WOODS/ RST AVAILABLE* Start: 03-11-2024 End: 03-11-2024 Patient encounter procedure 03/11/2024 7:00 AM EDT Office Visit [facility] [place] [address] [facility] [place] [address] Tima Tello MD [address] [place], [place] [phone] 3 month follow up Family [place] [facility] Comment on above: 3 month follow up Start: 02-29-2024 End: 02-29-2024 Patient encounter procedure 02/29/2024 10:00 AM EDT Office Visit [facility] [address] [place], [place] [phone] Shaylee Woods APRN.DISASTER RECOVERY MANAGER 1 [facility] [address] [place], [place] [phone] *CXR* 2 week p/o - s/p lobectomy (per [facility]) [facility] Comment on above: *CXR* 2 week p/o - s/p lobectomy (per [facility] ) Start: 02-13-2024 End: 02-13-2024 Admission to same day surgery center 02/13/2024 8:30 AM EDT - 02/13/2024 3:15 PM EDT [facility] [address] [place] [address] Nadege Tadeo MD [address] [place] [address] BRONCHOSCOPY FLEXIBLE ADULT [facility] Comment on above: BRONCHOSCOPY FLEXIBLE ADULT Start: 02-13-2024 End: 02-13-2024 [facility] incl fluor gdnce dx w/cell washg spx BRONCHOSCOPY FLEXIBLE ADULT Nodule of right lung 02/13/2024 8:30 AM EDT [facility] Start: 02-13-2024 Subsequent hospital visit by physician 02/13/2024 8:30 AM EDT Hospital Encounter [facility] [address] [place] [address] Nadege Tadeo MD [address] [place] [address] Nodule of right lung [R91.1] [facility] Comment on above: Nodule of right lung [R91.1] Start: 02-13-2024 End: 02-13-2024 Thoracoscopy w/dx wedge resexn anato lung resexn THORACOSCOPY SURGICAL W/DIAGNOSTIC WEDGE RESECTION FOLLOWED BY ANATOMIC LUNG RESECTION Nodule of right lung 02/13/2024 8:30 AM EDT [facility] Start: 02-13-2024 End: 02-13-2024 Thoracotomy with exploration THORACOTOMY ADULT Nodule of right lung 02/13/2024 8:30 AM EDT [facility] Start: 02-09-2024 End: 02-09-2024 Admission to same day surgery center 02/09/2024 8:00 AM EDT - 02/09/2024 2:45 PM EDT Surgery [facility] [address] [place] [address] Nadege Tadeo MD 1 [place], [place] [phone] BRONCHOSCOPY FLEXIBLE ADULT [facility] Comment on above: BRONCHOSCOPY FLEXIBLE ADULT Start: 02-09-2024 End: 02-09-2024 [facility] incl fluor gdnce dx w/cell washg spx BRONCHOSCOPY FLEXIBLE ADULT Nodule of right lung 02/09/2024 8:00 AM EDT [facility] Start: 02-09-2024 Subsequent hospital visit by physician 02/09/2024 8:00 AM EDT Hospital Encounter [facility] [address] [place] [address] Nadege Tadeo MD 1 [place], [place] [phone] Nodule of right lung [R91.1] [facility] Comment on above: Nodule of right lung [R91.1] Start: 02-09-2024 End: 02-09-2024 Thoracoscopy w/dx wedge resexn anato lung resexn THORACOSCOPY SURGICAL W/DIAGNOSTIC WEDGE RESECTION FOLLOWED BY ANATOMIC LUNG RESECTION Nodule of right lung 02/09/2024 8:00 AM EDT [facility] Start: 02-09-2024 End: 02-09-2024 Thoracotomy with exploration THORACOTOMY ADULT Nodule of right lung 02/09/2024 8:00 AM EDT [facility] Start: 01-29-2024 End: 01-29-2024 Patient encounter procedure 01/29/2024 9:00 AM EDT Office Visit [facility] [address] [place], [place] [phone] Fred Mckinney APRN.DISASTER RECOVERY MANAGER [address] [place], [place] [phone] PAT 02/09/24 lung surgery [facility] Comment on above: PAT 02/09/24 lung surgery Start: 01-28-2024 Influenza vaccination Influenza Vaccine (#1) [facility] [place] Comment on above: Postponed from 03/31/2023 (Declined at t his time) Start: 01-19-2024 End: 04-19-2024 CBC panel - Blood by Automated count COMPLETE BLOOD COUNT Lab Routine Nodule of upper lobe of right lung Preoperative testing Expected: 01/19/2024, Expires: 04/19/2024 [facility] Work Phone: Comment on above: Expected: 01/19/2024, Expires: 4 Start: 01-19-2024 End: 04-19-2024 Comprehensive metabolic 2000 panel - Serum or Plasma COMPREHENSIVE METABOLIC PANEL Lab Routine Nodule of upper lobe of right lung Preoperative testing Expected: 01/19/2024, Expires: 04/19/2024 [facility] Comment on above: Expected: 01/19/2024, Expires: 4 Start: 01-19-2024 End: 04-19-2024 PT panel - Platelet poor plasma by Coagulation assay PROTHROMBIN TIME Lab Routine Nodule of upper lobe of right lung Preoperative testing Shortness of breath Expected: 01/19/2024, Expires: 04/19/2024 [facility] Comment on above: Expected: 01/19/2024, Expires: 4 Start: 01-19-2024 End: 04-19-2024 TYPE AND SCREEN,30 DAY TYPE AND SCREEN,30 DAY Blood Bank Routine Nodule of upper lobe of right lung Preoperative testing Expected: 01/19/2024, Expires: 04/19/2024 [facility] Comment on above: Expected: 01/19/2024, Expires: 4 Start: 01-08-2024 End: 01-08-2024 Patient encounter procedure 01/08/2024 1:00 PM EDT Office Visit [facility] [address] [place] [address] Nadege Tadeo MD [address] [id number] New Patient Referral from Charo Tsai ([phone]) - Multiple Lung Nodules [facility] Comment on above: New Patient Referral from Adenike Tsai ([phone]) - Multiple Lung Nodules Start: 12-29-2023 End: 12-29-2023 Patient encounter procedure 12/29/2023 9:30 AM EDT Office Visit Radiation Oncology [address] [place], [place] [id number] Stephen Nunez MD [address] [address] Multiple lung nodules [R91.8]; Former tobacco use [Z87.891] [facility] Comment on above: Multiple lung nodules [R91.8]; Former to bacco use [Z87.891] Start: 12-15-2023 End: 12-15-2023 Admission to same day surgery center [facility] Endoscopy - ENDO Comment on above: FLEX BRONCHOSCOPY W/ NAVIGATIONAL IMAGE GUIDANCE Start: 12-15-2023 End: 12-15-2023 [facility] ebus guided sampl 1/2 node station/strux BRONCHOSCOPY,RIGID/FLEXI BLE W/ FLUORO,W/ENDOBRONCHIAL ULTRASOUND (EBUS) GUIDED TRANSTRACHEAL/ TRANSBRONCHIAL ASPIRATION/BIOPSY,1 OR 2 MEDIASTINAL AND/OR HILAR LYMPH NODE STATIONS/STRUCTURES Lung nodule 12/15/2023 7:30 AM EDT [facility] Start: 12-15-2023 End: 12-15-2023 [facility] incl fluor gdnce dx w/cell washg spx BRONCHOSCOPY FLEXIBLE WITH C-ARM Lung nodule 12/15/2023 7:30 AM EDT [facility] Start: 12-15-2023 End: 12-15-2023 Bronchoscopy w/cptr-asst image-guided navigation FLEX BRONCHOSCOPY W/ NAVIGATIONAL IMAGE GUIDANCE Lung nodule 12/15/2023 7:30 AM EDT [facility] Start: 12-15-2023 Subsequent hospital visit by physician [facility] Endoscopy - ENDO Comment on above: Lung nodule [R91.1] Start: 12-14-2023 End: 12-14-2023 ambulatory 12/14/2023 9:00 AM EDT [facility] Pulmonary Medicine [address] [place] [address] Modesta Rivera MD [address] [place], [place] [id number] [facility] Comment on above: [facility] Start: 12-13-2023 End: 12-13-2023 Patient encounter procedure 12/13/2023 8:20 AM EDT Appointment Cat Scan [address] [place] [address] [facility] Scan Comment on above: [facility] Start: 12-08-2023 DIABETES SCREEN DIABETES SCREEN [facility] Start: 12-08-2023 End: 12-08-2023 Nursing evaluation of patient and report 12/08/2023 9:15 AM EDT Nurse Visit [facility] [address] [place] [address] Nurse, Pr [address] [place] [address] ekg [facility] Comment on above: ekg Start: 12-08-2023 End: 12-08-2023 Patient encounter procedure 12/08/2023 8:00 AM EDT Office Visit [facility] [address] [place] [address] Tima Tello MD [address] [place] [address] medicare wellness exam [facility] Comment on above: medicare wellness exam Start: 12-08-2023 End: 12-08-2023 ambulatory 12/08/2023 7:15 AM EDT Results Only [facility] Station [address] [place] [address] [facility] Comment on above: lab Start: 12-06-2023 End: 12-06-2023 ambulatory [facility]UL[facility] Comment on above: Multiple lung nodules [R91.8] Start: 12-03-2023 BP CONTROLLED (<130/80) BP CONTROLLED (<130/80) [facility] Start: 11-29-2023 End: 11-29-2023 Anesthesia consultation 11/29/2023 8:00 AM EDT PAT Pre Anesthesia [address] [place] [address] 1, [facility] [place] [address] [place] [address] FLEX BRONCHOSCOPY W/ NAVIGATIONAL IMAGE GUIDANCE [[id number]] - Lung - N/A Pre Anesthesia Comment on above: FLEX BRONCHOSCOPY W/ NAVIGATIONAL IMAGE GUIDANCE [[id number]] - Lung - N/A Start: 11-13-2023 End: 02-12-2024 Basic metabolic 2000 panel - Serum or Plasma BASIC METABOLIC PANEL Lab Routine Lung nodule Expected: 11/13/2023, Expires: 02/12/2024 [facility] Work Phone: Comment on above: Expected: 11/13/2023, Expires: 4 Start: 11-13-2023 End: 02-12-2024 CBC W Auto Differential panel - Blood COMPLETE BLOOD COUNT AND DIFFERENTIAL Lab Routine Lung nodule Expected: 11/13/2023, Expires: 02/12/2024 [facility] Work Phone: Comment on above: Expected: 11/13/2023, Expires: Start: 09-13-2023 End: 12-13-2023 Lipid 1996 panel - Serum or Plasma LIPID PANEL BASIC Lab Routine Hyperlipidemia, mixed Expected: 09/13/2023, Expires: 12/13/2023 [facility] Work Phone: Comment on above: Expected: 09/13/2023, Expires: 4 Start: 07-31-2023 Advance Directive Discussion Advance Directive Discussion [facility] Start: 07-31-2023 Behavioral Health Screening Behavioral Health Screening [facility] Start: 03-31-2023 COVID-19 Vaccine ( season) COVID-19 Vaccine () [facility] Start: 03-31-2023 Influenza vaccination [facility] Start: 12-07-2022 BP CONTROLLED (<130/80) BP CONTROLLED (<130/80) [facility] Start: 12-07-2022 Hepatitis B surface antibody level LDL CHOLESTEROL [facility] Start: 12-02-2022 End: 12-16-2022 SARS-CoV-2 (COVID-19) RNA [Presence] in Respiratory specimen by PRESLEY with probe detection [facility] Work Phone: Comment on above: Expected: 12/02/2022, Expires: 3 Start: 11-23-2022 ANNUAL PCP TEAM CHRONIC DISEASE VISIT ANNUAL PCP TEAM CHRONIC DISEASE VISIT [facility] Start: 11-23-2022 COVID-19 VACCINE (3 - Booster for Pfizer series) COVID-19 VACCINE (3 - Booster for Pfizer series) [facility] Comment on above: Postponed from 05/20/2021 (Declined at t his time) Start: 11-23-2022 SHINGRIX VACCINE (1 of 2) SHINGRIX VACCINE (1 of 2) [facility] Comment on above: Postponed from 2005 (Declined at t his time) Start: 07-31-2022 ADVANCE DIRECTIVE DISCUSSION ADVANCE DIRECTIVE DISCUSSION [facility] Start: 07-31-2022 DEPRESSION ASSESSMENT DEPRESSION ASSESSMENT [facility] Start: 05-07-2022 Adult depression screening assessment DEPRESSION SCREENING [facility] Start: 05-07-2022 PNEUMOVAX AGE 65 AND OVER WITH 5YR LOOKBACK (#1) PNEUMOVAX AGE 65 AND OVER WITH 5YR LOOKBACK (#1) [facility] Comment on above: Postponed from 2020 (Declined at t his time) Start: 05-07-2022 Urine microalbumin profile DTAP,TDAP,TD (1 - Tdap) [facility] Comment on above: Postponed from 1974 (Declined at t his time) Start: 03-31-2022 Influenza vaccination INFLUENZA (Season Ended) [facility] Start: 03-10-2022 End: 05-10-2022 Comprehensive metabolic 2000 panel - Serum or Plasma COMP METABOLIC PANEL Lab Routine Mixed hyperlipidemia Expected: 03/10/2022, Expires: 05/10/2022 [facility] Work Phone: Comment on above: Expected: 03/10/2022, Expires: 2 Start: 03-10-2022 End: 05-10-2022 LIPID PANEL BASIC LIPID PANEL BASIC Lab Routine Mixed hyperlipidemia Expected: 03/10/2022, Expires: 05/10/2022 [facility] Work Phone: Comment on above: Expected: 03/10/2022, Expires: 2 Start: 11-23-2021 End: 01-23-2022 CBC W Auto Differential panel - Blood CBC + DIFF Lab Routine Coronary artery disease involving chilkoot coronary artery of chilkoot heart without angina pectoris Expected: 11/23/2021, Expires: 01/23/2022 [facility] Work Phone: Comment on above: Expected: 11/23/2021, Expires: 2 Start: 11-23-2021 End: 01-23-2022 Comprehensive metabolic 2000 panel - Serum or Plasma COMP METABOLIC PANEL Lab Routine Coronary artery disease involving chilkoot coronary artery of chilkoot heart without angina pectoris Expected: 11/23/2021, Expires: 01/23/2022 [facility] Work Phone: Comment on above: Expected: 11/23/2021, Expires: 2 Start: 11-23-2021 End: 01-23-2022 HIV 1+2 Ab [Presence] in Serum or Plasma by Immunoassay HIV 1 2 COMBO(AG/AB),WITH REFLEX TO DIFFERENTIATION Lab Routine Screening for HIV (human immunodeficiency virus) Expected: 11/23/2021, Expires: 01/23/2022 [facility] Work Phone: Comment on above: Expected: 11/23/2021, Expires: 2 Start: 11-23-2021 End: 01-23-2022 LIPID PANEL, NONFASTING LIPID PANEL, NONFASTING Lab Routine Coronary artery disease involving chilkoot coronary artery of chilkoot heart without angina pectoris Expected: 11/23/2021, Expires: 01/23/2022 [facility] Work Phone: Comment on above: Expected: 11/23/2021, Expires: 2 Start: 07-31-2021 ADVANCE DIRECTIVE DISCUSSION ADVANCE DIRECTIVE DISCUSSION [facility] Start: 02-12-2021 COVID-19 Vaccine (3 - Booster for Pfizer series) COVID-19 Vaccine (3 - Booster for Pfizer series) [facility] Start: 02-12-2021 COVID-19 Vaccine (3 - Pfizer series) COVID-19 Vaccine (3 - Pfizer series) [facility] Start: 10-17-2020 Creatinine measurement Creatinine monitoring [facility] Work Phone: Start: 10-17-2020 Hepatitis B surface antibody level LDL CHOLESTEROL [facility] Start: 10-17-2020 Lipid panel Lipid screen [facility] Work Phone: Start: 10-17-2020 Potassium monitoring Potassium monitoring [facility] Work Phone: Start: 2020 Pneumococcal 65+ years Vaccine (1 of 1 - PPSV23) Pneumococcal 65+ years Vaccine (1 of 1 - PPSV23) [facility] Work Phone: Start: 2020 Pneumococcal Vaccine: 65+ (1 of 1 - PCV) Pneumococcal Vaccine: 65+ (1 of 1 - PCV) [facility] Start: 2020 PNEUMOCOCCAL: 65+ (1 - PCV) PNEUMOCOCCAL: 65+ (1 - PCV) [facility] Start: 03-31-2020 Influenza vaccination Flu vaccine (#1) [facility] Work Phone: Start: 2015 RSV Immunization aged 60 or older (1 - 1-dose 60+ series) RSV Immunization aged 60 or older (1 - 1-dose 60+ series) [facility] Start: 2015 RSV Immunization for Adults (1 - Risk 60-74 years 1-dose series) RSV Immunization for Adults (1 - Risk 60-74 years 1-dose series) [facility] Start: 2015 RSV Vaccine (1 - Risk 60-74 years 1-dose series) RSV Vaccine (1 - Risk 60-74 years 1-dose series) [facility] Start: 2010 Influenza vaccination LUNG CANCER SCREENING [facility] Start: 2005 Influenza vaccination LUNG CANCER SCREENING [facility] Start: 2005 Pneumococcal Vaccine: 50+ (1 of 1 - PCV) Pneumococcal Vaccine: 50+ (1 of 1 - PCV) [facility] Start: 2005 Screening for malignant neoplasm of colon Colon cancer screen colonoscopy [facility] Work Phone: Start: 2005 Shingles Vaccine (1 of 2) Shingles Vaccine (1 of 2) [facility] Work Phone: Start: 2005 SHINGRIX VACCINE (1 of 2) SHINGRIX VACCINE (1 of 2) [facility] Start: 2005 Zoster Vaccines (1 of 2) Zoster Vaccines (1 of 2) [facility] Start: 2000 COLOGUARD (FIT-DNA) COLOGUARD (FIT-DNA) [facility] Start: [address] COLONOGRAPHY [facility] Start: 2000 FECAL OCCULT BLOOD FECAL OCCULT BLOOD [facility] Start: 2000 Screening for malignant neoplasm of colon [facility] Start: 2000 SIGMOIDOSCOPY SIGMOIDOSCOPY [facility] Start: 1974 DTaP/Tdap/Td vaccine (1 - Tdap) DTaP/Tdap/Td vaccine (1 - Tdap) [facility] Work Phone: Start: 1974 DTaP/Tdap/Td Vaccines (1 - Tdap) DTaP/Tdap/Td Vaccines (1 - Tdap) [facility] Start: 1974 Pneumococcal Vaccine: 50+ (1 of 2 - PCV) Pneumococcal Vaccine: 50+ (1 of 2 - PCV) [facility] Start: 1974 Pneumococcal Vaccine: 50+ Years (1 of 2 - PCV) Pneumococcal Vaccine: 50+ Years (1 of 2 - PCV) [facility] Start: 1974 Shingrix Vaccine (1 of 2) Shingrix Vaccine (1 of 2) [facility] Start: 1974 Urine microalbumin profile [facility] Start: 1973 BP CONTROLLED (<130/80) BP CONTROLLED (<130/80) [facility] Start: 1973 Diabetes mellitus screening Diabetes Screening [facility] Start: 1973 Hepatitis C screening Hepatitis C Screening [facility] Start: 1971 COVID-19 Vaccine (1 of 2) COVID-19 Vaccine (1 of 2) [facility] Work Phone: Start: 1970 HIV screening HIV screen [facility] Work Phone: Start: 1967 Depression Screening Depression Screening [facility] Start: 1961 Pneumococcal Vaccine: 65+ Years (1 - PCV) Pneumococcal Vaccine: 65+ Years (1 - PCV) [facility] Start: 1961 Pneumococcal Vaccine: 65+ Years (1 of 2 - PCV) Pneumococcal Vaccine: 65+ Years (1 of 2 - PCV) [facility] Start: 1955 Abdominal aortic aneurysm screening AAA screen [facility] Work Phone: Start: 1955 Echocardiography Echocardiogram [facility] Start: 1955 Hepatitis B Vaccines (1 of 3 - 3-dose series) Hepatitis B Vaccines (1 of 3 - 3-dose series) [facility] Start: 1955 Hepatitis C screening Hepatitis C screen [facility] Work Phone: Start: 1955 Medicare Annual Wellness (AWV) Medicare Annual Wellness (AWV) [facility] Start: 1955 Screening for malignant neoplasm of colon [facility] Start: 1955 Thyroid stimulating hormone measurement TSH Level [facility] Bacteria identified in Wound by Culture ABSCESS AND WOUND CULTURE WITH GRAM STAIN Microbiology Routine Cellulitis of left lower extremity Ordered: 05/01/2024 [facility] Work Phone: Comment on above: Ordered: 05/01/2024 Cardiac catheterizat ion study Cardiac procedure CV Cardiac Cath Routine 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 Work Phone: End: 04-18-2026 CT Abdomen and Pelvis W contrast IV CT ABD/PEL W IVCON Radiology RAQUEL Melena Generalized abdominal pain 1 Occurrences starting 03/19/2025 until 04/18/2026 [facility] Work Phone: Comment on above: 1 Occurrences starting 03/19/2025 until 04/18/2026 End: 04-19-2025 CT Chest W contrast IV CT CHEST W IVCON Radiology Routine Malignant neoplasm of unspecified part of unspecified bronchus or lung (HCC) 1 Occurrences starting 03/20/2024 until 04/19/2025 [facility] Work Phone: Comment on above: 1 Occurrences starting 03/20/2024 until 04/19/2025 CT Chest W contrast IV CT CHEST W IVCON Radiology Routine Malignant neoplasm of unspecified part of unspecified bronchus or lung (HCC) 09/06/2024 3:26 PM [facility] Work Phone: CT Chest W contrast IV CT CHEST W IVCON Radiology Routine Malignant neoplasm of unspecified part of unspecified bronchus or lung (HCC) S/P lobectomy of lung 03/11/2025 9:08 AM EDT [facility] Work Phone: End: 04-17-2026 CT Chest W contrast IV CT CHEST W IVCON Radiology Routine Primary lung adenocarcinoma, right (HCC) 1 Occurrences starting 03/18/2025 until 04/17/2026 [facility] Work Phone: Comment on above: 1 Occurrences starting 03/18/2025 until 04/17/2026 End: 05-09-2026 CT Chest W contrast IV CT CHEST W IVCON Radiology Routine Malignant neoplasm of unspecified part of unspecified bronchus or lung (HCC) 1 Occurrences starting 04/09/2025 until 05/09/2026 [facility] Work Phone: Comment on above: 1 Occurrences starting 04/09/2025 until 05/09/2026 End: 12-12-2024 CT Chest WO contrast CT CHEST WO IVCON Radiology Routine Lung nodule 1 Occurrences starting 11/13/2023 until 12/12/2024 [facility] Work Phone: Comment on above: 1 Occurrences starting 11/13/2023 until 12/12/2024 CT Chest WO contrast CT CHEST WO IVCON Radiology Routine Lung nodule 12/13/2023 8:37 AM EDT [facility] Work Phone: ECG 12 lead - CLINIC PERFORMED ECG 12 lead - CLINIC PERFORMED CV ECG Routine Coronary artery disease involving chilkoot coronary artery of chilkoot heart without angina pectoris 11/01/2022 1:15 PM [facility] Work Phone: ECG 12 lead - CLINIC PERFORMED ECG 12 lead - CLINIC PERFORMED CV ECG Routine Coronary artery disease involving chilkoot coronary artery of chilkoot heart without angina pectoris 01/16/2024 12:36 PM [facility] Work Phone: ECG 12 lead - CLINIC PERFORMED ECG 12 lead - CLINIC PERFORMED CV ECG Routine Coronary artery disease involving chilkoot coronary artery of chilkoot heart without angina pectoris 06/11/2024 9:08 AM EST [facility] Work Phone: ECG 12 lead - CLINIC PERFORMED ECG 12 lead - CLINIC PERFORMED CV ECG Routine Mixed hyperlipidemia 11/13/2024 12:47 PM EDT [facility] End: 11-12-2024 ECG COMPLETE ECG COMPLETE ECG Routine Lung nodule 1 Occurrences starting 11/13/2023 until 11/12/2024 [facility] Work Phone: Comment on above: 1 Occurrences starting 11/13/2023 until 11/12/2024 End: 03-21-2026 EGD DIAGNOSTIC EGD DIAGNOSTIC Endoscopy Routine Melena Nausea Heart burn 1 Occurrences starting 03/21/2025 until 03/21/2026 [facility] Comment on above: 1 Occurrences starting 03/21/2025 until 03/21/2026 End: 03-21-2026 Flexible sigmoidoscopy study COLONOSCOPY DIAGNOSTIC Endoscopy Routine Chronic constipation 1 Occurrences starting 03/21/2025 until 03/21/2026 [facility] Work Phone: Comment on above: 1 Occurrences starting 03/21/2025 until 03/21/2026 Hemoglobin.gastroint piedad nal.lower [Presence] in Stool by Immunoassay IMMUNOCHEMICAL FECAL OCCULT BLOOD TEST Lab Routine Chronic constipation Melena 03/19/2025 10:00 AM EDT [facility] LEFT HEART CATH / CORONARY ANGIOGRAPHY LEFT HEART CATH / CORONARY ANGIOGRAPHY 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) Abnormal stress echocardiogram [facility] End: 12-05-2024 LUNG DIFFUSION CAPACITY (DLCO) LUNG DIFFUSION CAPACITY (DLCO) PFT Routine Multiple lung nodules 1 Occurrences starting 11/06/2023 until 12/05/2024 [facility] Work Phone: Comment on above: 1 Occurrences starting 11/06/2023 until 12/05/2024 LUNG DIFFUSION CAPAC ITY (DLCO) LUNG DIFFUSION CAPACITY (DLCO) PFT Routine Multiple lung nodules 12/06/2023 8:00 AM EDT [facility] Work Phone: End: 04-25-2026 LUNG DIFFUSION CAPACITY (DLCO) LUNG DIFFUSION CAPACITY (DLCO) PFT Routine Pulmonary air trapping Malignant neoplasm of upper lobe of right lung (HCC) 1 Occurrences starting 03/26/2025 until 04/25/2026 [facility] Comment on above: 1 Occurrences starting 03/26/2025 until 04/25/2026 End: 12-05-2024 LUNG VOLUMES LUNG VOLUMES PFT Routine Multiple lung nodules 1 Occurrences starting 11/06/2023 until 12/05/2024 [facility] Work Phone: Comment on above: 1 Occurrences starting 11/06/2023 until 12/05/2024 LUNG VOLUMES LUNG VOLUMES PFT Routine Multiple lung nodules 12/06/2023 8:00 AM EDT [facility] Work Phone: End: 04-25-2026 LUNG VOLUMES LUNG VOLUMES PFT Routine Pulmonary air trapping Malignant neoplasm of upper lobe of right lung (HCC) 1 Occurrences starting 03/26/2025 until 04/25/2026 [facility] Comment on above: 1 Occurrences starting 03/26/2025 until 04/25/2026 End: 12-05-2024 PET+CT Guidance for localization of tumor of Skull base to mid-thigh-- W [id number] IV NM PET/CT SKULL-THIGH INITIAL Radiology Routine Lung nodules 1 Occurrences starting 11/06/2023 until 12/05/2024 [facility] Work Phone: Comment on above: 1 Occurrences starting 11/06/2023 until 12/05/2024 End: 12-05-2024 SIX MINUTE WALK SIX MINUTE WALK PFT Routine Multiple lung nodules 1 Occurrences starting 11/06/2023 until 12/05/2024 [facility] Work Phone: Comment on above: 1 Occurrences starting 11/06/2023 until 12/05/2024 End: 12-05-2024 SPIROMETRY WITH DILATOR IF OBSTRUCTED SPIROMETRY WITH DILATOR IF OBSTRUCTED PFT Routine Multiple lung nodules 1 Occurrences starting 11/06/2023 until 12/05/2024 [facility] Work Phone: Comment on above: 1 Occurrences starting 11/06/2023 until 12/05/2024 SPIROMETRY WITH DILA TOR IF OBSTRUCTED SPIROMETRY WITH DILATOR IF OBSTRUCTED PFT Routine Multiple lung nodules 12/06/2023 8:00 AM EDT [facility] Work Phone: End: 04-25-2026 SPIROMETRY WITH DILATOR IF OBSTRUCTED SPIROMETRY WITH DILATOR IF OBSTRUCTED PFT Routine Pulmonary air trapping Malignant neoplasm of upper lobe of right lung (HCC) 1 Occurrences starting 03/26/2025 until 04/25/2026 [facility] Work Phone: Comment on above: 1 Occurrences starting 03/26/2025 until 04/25/2026 Tissue Pathology bio psy report [facility] Work Phone: Comment on above: Release Upon Ordering for 1 Occurrences starting 04/08/2025, 1 completed End: 04-20-2026 US Abdomen RUQ US ABD RIGHT UPPER QUADRANT Radiology Routine Nausea RUQ abdominal pain 1 Occurrences starting 03/21/2025 until 04/20/2026 [facility] Comment on above: 1 Occurrences starting 03/21/2025 until 04/20/2026 End: 04-15-2026 US Abdominal Aorta US ABD AORTA COMPLETE [facility] Vascular Lab Routine Abdominal aortic aneurysm (AAA) without rupture, unspecified part Infrarenal abdominal aortic aneurysm, without rupture 1 Occurrences starting 04/15/2025 until 04/15/2026 [facility] Work Phone: Comment on above: 1 Occurrences starting 04/15/2025 until 04/15/2026 End: 04-15-2026 US Carotid arteries - bilateral US CAROTID ARTERIES [facility] Vascular Lab Routine Bilateral carotid artery stenosis 1 Occurrences starting 04/15/2025 until 04/15/2026 [facility] Comment on above: 1 Occurrences starting 04/15/2025 until 04/15/2026 End: 04-15-2026 US Lower extremity artery - bilateral PVR LEG [facility] Vascular Lab Routine Peripheral arterial disease 1 Occurrences starting 04/15/2025 until 04/15/2026 [facility] Comment on above: 1 Occurrences starting 04/15/2025 until 04/15/2026 End: 03-11-2025 US.doppler Extremity arteries - bilateral for physiologic artery study PVR ANK PRESS [facility] Vascular Lab STAT Cold extremity without peripheral vascular disease Other specified symptoms and signs involving the circulatory and respiratory systems 1 Occurrences starting 03/11/2024 until 03/11/2025 [facility] Work Phone: Comment on above: 1 Occurrences starting 03/11/2024 until 03/11/2025 XR Chest 2 Views XR chest 2 view s Imaging Routine Preop examination 07/18/2024 2:15 PM EST [facility] Work Phone: XR Chest Single view XR CHEST 1V FRONTAL PORT Radiology Routine S/P lobectomy of lung 02/29/2024 11:14 AM EDT [facility] Work Phone: End: 09-08-2025 XR Shoulder - left 3 Views XR SHOULDER GENERAL 3V OR MORE AP/TRUE AP/OTHER LEFT Radiology Routine Pain 1 Occurrences starting 08/09/2024 until 09/08/2025 [facility] Work Phone: Comment on above: 1 Occurrences starting 08/09/2024 until 09/08/2025 [facility] Immunizations Immunization Date Immunization Notes Care Provider Fa cili 12-18-2020 COVID-19 vaccine, ag e 12+ yr (PFIZER-BIONTECH - PURPLE TOP) Tima Tello MD Work Phone: [facility] 11-27-2020 COVID-19 vaccine, ag e 12+ yr (PFIZER-BIONTECH - PURPLE TOP) Tima Tello MD Work Phone: [facility] Payers Date Payer Category Payer Self-pay 2020 [facility] DICARE SUPPLEMENT [id number] 2020 Medicare MEDICARE MEDICAR E A AND B [id number] 2020-Present [phone] [place] [address] Medicare [id number] 2020 Medicare [id number] 2020 Medicare supplementa l policy (as second payer) [employer]TH[employer]AT MEDICARE SUPPLEMENT [id number] 2020 [place] [id number] 2020-Present [phone] [id number] [place] [address] Indemnity [id number] 2020 Unknown [id number] 2020 Medicare [id number] 2020 Unknown [id number] 2018 Unknown [id number] 2005 Unknown MED [facility] [place] PERS [id number] 1955 Unknown [id number] 1955 Unknown [id number] Unknown [id number] Unknown [id number] Unknown [id number] Unknown [id number] Unknown [id number] Social History Date Type Detail Facility Start: 09-30-2020 End: 05-01-2024 Tobacco smoking status NHIS Former smoker [facility] Work Phone: Start: 1955 End: 08-17-2011 History of tobacco use Current smoker [employer] Phone: Start: 09-30-2020 End: 05-01-2024 Tobacco use and exposure Never used [facility] Work Phone: Start: 09-30-2020 End: 11-13-2024 Alcohol intake Current non-drinker of alcohol (finding) [facility] Work Phone: Start: 08-17-2018 Tobacco Comment currently occ cigar [facility] Work Phone: Start: 1955 Sex Assigned At Not on file S [facility] Work Phone: Start: 11-13-2021 End: 11-01-2022 Exposure to SARS-CoV-2 (event) Not sure [facility] Work Phone: Start: 1955 End: 08-17-2011 History of tobacco use Cigarette Smoker [facility] Work Phone: Start: 03-28-2011 End: 07-11-2023 Cigarettes smoked current (pack per day) - Reported 1.5 [facility] Work Phone: Start: 1955 Sex Assigned At Male Keron [facility] Start: 11-01-2022 End: 07-11-2023 Tobacco use panel [facility] Work Phone: Start: 07-01-2012 Adult Depression Screening Assessment 0 [facility] Work Phone: Start: 11-06-2023 End: 04-15-2025 Alcohol intake Ex-drinker (finding) [facility] How often to you hav e a drink containing alcohol? Monthly or less [facility] How many standard drinks containing alcohol do you have on a typical day? 1 or 2 [facility] How often do you hav e 6 or more drinks on 1 occasion? Never [facility] Has the [employer], or [employer] threatened to shut off services in your home in past 12Mo No [facility] (I/We) worried [facility] (my/our) food would run out before (I/we) got money to buy more. Never true [facility] Are you now , , , , never or living with a partner? [facility] How hard is it for y ou to pay for the very basics like food, housing, medical care, and heating Not very hard [facility] Do you feel stress - tense, restless, nervous, or anxious, or unable to sleep at night because your mind is troubled all the time - these days [OSQ] Not at all [facility] (I/We) worried [facility] (my/our) food would run out before (I/we) got money to buy more. Sometimes true [facility] Start: 02-28-2022 Sex Male (finding) Tierra hernandez Start: 07-10-2024 Tobacco use and exposure Former smokeless tobacco user [facility] [employer] End: 1970 History of tobacco use User of smokeless tobacco [facility] Do you feel stress - tense, restless, nervous, or anxious, or unable to sleep at night because your mind is troubled all the time - these days [OSQ] Very much [facility] Medical Equipment Procedure Code Equipment Code Equipment Origin al Text Equipment Identifier Dates 0.01-0.2 mcg/kg/ min 74.4 kg (0.6975-13.95 mL/hr, rounded to 0.7-13.95 mL/hr), IntraVENous, Continuous PRN, Initiate if Cardiac Index above 2.0; SBP less than 90 mmHg or MAP less than 65 mmHg; and PAD above 18, Starting on Marjorie 07/25/24 at 1229, Recovery & On Unit, Infuse via central line. If Titrate Infusion? is No: Disregard instructions below. If Titrate infusion? is Yes: Titrate in increments of 0.02 mcg/kg/min no faster than every 5 minutes to goal. When approaching therapeutic goal or weaning off, smaller titration increments of 0.01 mcg/kg/min no faster than every 5 minutes may be used to maintain goal. , Goal Maintain SBP greater than 90 and less than 130 Goal Maintain MAP greater than 65 and less than 80, Titrate Infusion: Yes, Infusion Dose: Other, Infusion Dose: 0.01 mcg/kg/min, Goal of Therapy is: MAP great than 65 mmHg, SBP greater than 90 mmHg, Contact Provider if: Patient is receiving the maximum dose and is not achieving the goal of therapy Start: 07-25-2024 End: 07-26-2024 Goals Date Patient Goal Desired Activity /State Personal health goal Functional Status Date Assessment Result Facility 04-09-2025 Total score [AUDIT-C] 0 04/09/20 8:52 AM Hugo Hamilton MA [facility] 03-17-2025 Total score [AUDIT-C] 0 03/17/20 8:09 AM HENRIKT Hugo Botello MA [facility] 02-14-2024 Are you deaf, or do you have serious difficulty hearing No 02/14/2024 9:30 AM EDT Juice Oscar RN No [facility] 02-14-2024 Are you blind, or do you have serious difficulty seeing, even when wearing glasses No 02/14/2024 9:30 AM HENRIKT Juice Oscar RN No [facility] 02-14-2024 Do you have serious difficulty walking or climbing stairs No 02/14/2024 9:30 AM EDJuice Zuniga RN No [facility] 02-14-2024 Do you have difficul ty dressing or bathing No 02/14/2024 9:30 AM EDT Juice Oscar RN No [facility] 02-14-2024 Because of a physica l, mental, or emotional condition, do you have difficulty doing errands alone such as visiting a physician's office or shopping No 02/14/2024 9:30 AM EDT Juice Oscar RN No [facility] Mental Status Date Assessment Result Facility 02-14-2024 Because of a physica l, mental, or emotional condition, do you have serious difficulty concentrating, remembering, or making decisions No 02/14/2024 9:30 AM EDT Juice Oscar RN No [facility] Clinical Notes 11-23-2021 to 06-03-2025 Patient Saray Garrett APRN.DISASTER RECOVERY MANAGER - 04/15/2025 10:00 AM Cristo Boykin DO - 04/15/2025 8:18 AM EDTTelephone Encounter - Joanna Black RN - 04/14/2025 1:44 PM EDTProcedure Summary Note Date & Type Note Facility 06-03-2025 Note HNO ID: [id number] Author: MAXINE GOULD PA-C Service: ? Author Type: Physician Healthcare Manager Type: Progress Notes Filed: 06/03/2025 10:50 Note Text: DEPARTMENT OF GASTROENTEROLOGY - NEW PATIENT/CONSULT REASON FOR VISIT Sharonda Flores is a 69 year old male who is scheduled at the request of Saray Marinelli for Consult (CONSTIPATION). My final recommendations will be communicated back to the requesting physician by the way of the shared medical record, fax, or via US Mail HISTORY OF PRESENT ILLNESS Sharonda Flores is a 69 year old male who presents today for an evaluation of RUQ pain and constipation. The patient is a 69-year-old male with chronic constipation, right-sided abdominal pain, and a history of right lung cancer resection and coronary artery disease, presenting for evaluation of persistent abdominal pain and constipation. He reports that his symptoms began after his first surgery in January of last year, which he attributes to opioid use postoperatively. He subsequently underwent a triple bypass in June, after which his constipation worsened. He describes his bowel movements as infrequent, with intervals ranging from 1 to 4 days, and the stool is consistently small and pellet-like. He has tried various interventions, including castor oil, Metamucil, and up to 3 stool softeners daily, with only temporary relief. He notes that his symptoms improve after bowel cleanouts, but constipation and pain recur once he resumes eating. He describes his abdominal pain as localized to the right side, sometimes associated with a palpable firmness. The pain is exacerbated by physical contact or pressure and can radiate to the back. He also reports intermittent swelling in the right upper quadrant. The pain disrupts his sleep and has led to reduced oral intake, including cessation of carbonated beverages and limiting food intake, without significant improvement. He denies any improvement in pain with pantoprazole, though it has resolved his prior dyspepsia. He has undergone multiple diagnostic tests, including colonoscopy, EGD, and CT scan, with no definitive diagnosis. He has received conflicting information regarding the presence of an ulcer. He expresses frustration with the lack of a clear diagnosis and resolution of his symptoms. He is currently taking pantoprazole 20 mg daily, which has resolved his dyspepsia, but has not improved his abdominal pain. He is also on Cosentyx for psoriasis. 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 -No adjuvant chemotherapy or radiation indicated. -Reviewed CT chest from 03/11/2025. Previous RUL lobectomy. RAMIRO. -Again discussed surveillance including CT chest with or without contrast every 6 months for 2 to 3 years then low-dose noncontrast enhanced CT chest annually. Plan: -CT chest with contrast followed by office visit in September as scheduled. (R10.11) RUQ pain Assessment: - Underwent EGD. On PPI. Some improvement in postprandial dyspepsia symptoms but continues to have right upper quadrant pain that can be worsened with physical activity. - Likely secondary to gallbladder and some element of postthoracotomy pain. Plan: - He was told to message general surgery if he did not get relief with PPI in a month. I will forward this note. - Once gallbladder ruled out as a source of pain, he can follow-up with his PCPs team for management of postthoracotomy pain. Portions of this documentation were copied and pasted from my previous office visit note dated 04/09/2025 in order to provide a cohesive continuity of the history. The note has been reviewed and edited and updated as necessary. EGD/colonoscopy 03/2025 - Non-bleeding internal hemorrhoids. - Diverticulosis in the sigmoid colon. - No specimens collected. Recommendation: - Discharge patient to home. - Resume previous diet. - Continue present medications. - - Repeat colonoscopy in 5-10 years for screening purposes. - Return to referring provider at the next available appointment for discussion of EGD results. - Patient has a contact number available for emergencies. The signs and symptoms of potential delayed complications were discussed with the patient. Return to normal activities tomorrow. Written discharge instructions were provided to the patient. No specimens collected. Recommendation: - Discharge patient to home (ambulatory). - Resume previous diet. - Continue present medications. - Await pathology results. - - Follow up with Kya Marinelli NP, , may be via televisit for discussion of pathology results and determination of timing of future endoscopies Patchy mildly erythematous mucosa without active bleeding and with no stigmata of bleeding was found in the duodenal b (more content not included)... [facility] 05-14-2025 Note HNO ID: [id number] Author: ANALY DUMONT, DO Service: ? Author Type: Physician Type: Progress Notes Filed: 05/14/2025 09:11 Note Text: Oncologic problem(s): 1) NSCLC s/p resection. HPI: The patient is a 69-year-old male with past medical history as outlined below. Had a screening CT of the lung 11/06/2023. Observed to have a solid nodule in the right upper lobe with an average diameter of approximately 10.2 mm. It would. Mildly larger when compared to scan in July 2023. There were 2 other nodules in the right upper lobe. 1 of which appeared stable and the other measuring 4 x 3 mm may have been slightly larger than when compared to previous scan. A 7.1 mm parenchymal density in the right upper lobe on PET scan performed subsequently had an SUV of 4.1. Ultimately underwent a right sided VATS right upper lobectomy on 02/09/2024. Pathology: FINAL DIAGNOSIS A. Lung, right upper lobe, wedge resection: - Adenocarcinoma, acinar subtype. - Inked surgical margin is positive for carcinoma. - See comment. B. Lymph node, level 9, excision: - Lymph node tissue, negative for carcinoma (0/1). C. Lung, right upper lobe, lobectomy: - Adenocarcinoma, acinar (60%) and lepidic (40%) patterns. - Margins (bronchial, vascular and parenchymal margins) negative for tumor. - Focal features suggestive of prior infarct. - Seven lymph nodes, negative for carcinoma (0/7). - See comment and synoptic report. D. Lymph node, level 4, excision: - Fibroadipose tissue, negative for tumor. - Lymph node tissue is not present. E. Lymph node, level 7, excision: - One lymph node, negative for carcinoma (0/1). Diagnosis Comment A. The tumor in part A shows extensive frozen artifact which limits the morphologic evaluation as well as the evaluation for size,vascular space and pleural invasion. C. Targeted oncology profile (TOP), ALK, PDL1, ROS1 and RET testing will be performed A, C. Dr. Erica Roberts has reviewed this case and agrees with the above diagnosis. Block for additional Biomarkers/Molecular studies C16 Synoptic Report LUNG 8th Edition - Protocol posted: 04/20/2022LUNG: RESECTION - All Specimens SPECIMEN Procedure Lobectomy Specimen Laterality Right TUMOR Tumor Focality Single focus Tumor Site Upper lobe of lung Tumor Size Total Tumor Size (size of entire tumor) Greatest Dimension (Centimeters): at least 1.5 cm Size of Invasive Component Greatest Dimension (Centimeters): at least 1.5 cm Histologic Type Invasive acinar adenocarcinoma Histologic Patterns Present Acinar: 80 Histologic Grade G2, moderately differentiated Spread Through Air Spaces (ANITA) Not identified Visceral Pleura Invasion Not identified Direct Invasion of Adjacent Structures Not applicable (no adjacent structures present) Treatment Effect No known presurgical therapy Lymphovascular Invasion Not identified MARGINS Margin Status for Invasive Carcinoma All margins negative for invasive carcinoma Closest Margin(s) to Invasive Carcinoma Bronchial Vascular Parenchymal Distance from Invasive Carcinoma to Closest Margin 3.5 cm Margin Status for Non-Invasive Tumor All margins negative for non-invasive tumor REGIONAL LYMPH NODES Lymph Node(s) from Prior Procedures Not included Regional Lymph Node Status All regional lymph nodes negative for tumor Number of Lymph Nodes Examined 9 Erika Site(s) Examined 4R: Lower paratracheal 9R: Pulmonary ligament 7: Subcarinal PATHOLOGIC STAGE CLASSIFICATION (pTNM, AJCC 8th Edition) Reporting of pT, pN, and (when applicable) pM categories is based on information available to the pathologist at the time the report is issued. As per the AJCC (Chapter 1, 8th Ed.) it is the managing physician?s responsibility to establish the final pathologic stage based upon all pertinent information, including but potentially not limited to this pathology report. pT Category pT1b pN Category pN0 . Presents for ongoing oncologic management. Interim history: Had 3 vessel CABG 06/2024. Since last seen: Underwent EGD. Findings noted. Saw general surgery. Started on PPI. Had a CT abdomen pelvis that showed contracted gallbladder. Still having pain that is exacerbated with activity and eating different foods. He has been eating a lot of eggs salad sandwiches because they seem to sit best with him. Nausea improved after starting PPI. Still gets flares of right upper quadrant pain nonetheless. No other GI symptoms. No change in overall respiratory status. PAST MEDICAL HISTORY Diagnosis Date Abdominal aortic aneurysm (AAA) without rupture 3 x 3.1 cm 05/2021, repeat 1 year. 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 Tineo Essential hypertension Heart a (more content not included)... [facility] 04-21-2025 Note HNO ID: [id number] Author: ALEJANDRA VIRAMONTES APRN.DISASTER RECOVERY MANAGER Service: ? Author Type: Nurse Practitioner Type: Progress Notes Filed: 04/21/2025 15:15 Note Text: 04/21/2025 Patient presents with: Follow Up Results Recording using Purple software for draft documentation of the visit was discussed with the patient/authorized sales representative electric service; all questions welcomed and answered. Patient/authorized sales representative electric service agreed to proceed SUBJECTIVE: This is a 69 year old that is here today for Above Complaints.. Followed up with gastro for RUQ pain and nausea that has been ongoing since his right upper lung resection in 2023. Pain is intermittent and described as a numbness that shoots. Physical activity seems to make it worse. Recently completed EGD and colonoscopy. Was place on Protonix about five days ago by gastro for the pain. Was instructed to take for 90 days. Also instructed if no improvement in pain then to inform gastro and they would order HIDA scan. PAST MEDICAL HISTORY Diagnosis Date Abdominal aortic aneurysm (AAA) without rupture 3 x 3.1 cm 05/2021, repeat 1 year. 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 Tineo Essential hypertension Heart attack (HCC) 2011 s/p stents History of tobacco use HLD (hyperlipidemia) Multiple lung nodules on CT 11/09/2023 PET scan ordered PAD (peripheral artery disease) 04/04/2024 Mild to moderate disease LLE on LINH Primary lung adenocarcinoma, right (HCC) RUL,s/p 02/09/24 flexible bronchoscopy, right VATS, right upper lobe wedge resection, cryo nerve block, mediastinal lymph node dissection Psoriasis [facility] S/P lobectomy of lung S/P triple vessel bypass 07/25/2024 Thrombocytopenia Tinnitus of both ears ALLERGIES Penicillins MEDICATIONS Current Outpatient Medications Medication Sig pantoprazole DR (PROTONIX) 20 mg tablet Take 1 tablet by mouth once daily. secukinumab (COSENTYX, 2 SYRINGES,) 150 mg/mL injection Inject 300 mg subcutaneously one time a week. docusate sodium (COLACE) 100 mg capsule Take 1 capsule by mouth two times a day as needed for constipation. ezetimibe (ZETIA) 10 mg tablet Take 10 mg by mouth once daily. isosorbide mononitrate ER (IMDUR) 30 mg 24 hr tablet Take 30 mg by mouth once daily. methocarbamol 1,000 mg tablet Take 1,000 mg by mouth four times daily. clopidogrel (PLAVIX) 75 mg tablet Take 75 mg by mouth. atorvastatin (LIPITOR) 80 mg tablet Take 1 tablet by mouth daily at bedtime. For cholesterol. Aspirin 81 mg Tab Take 81 mg by mouth once daily. polyethylene glycol 3350 (MIRALAX) 17 gram/dose powder Take 17 g by mouth two times a day. Dissolve dose in 4 - 8 ounces of liquid and take as directed. (Patient not taking: Reported on 04/21/2025) No current facility-administered medications for this visit. Medications and allergies reviewed by this provider. SOCIAL HISTORY SOCIAL HISTORY[1] REVIEW OF SYSTEMS All other reviewed and negative other than HPI. OBJECTIVE: BP 144/87 Pulse 63 Ht 169 cm (5' 6.54) Wt 74.4 kg (164 lb) BMI 26.04 kg/m? . Vital signs reviewed by this provider. APPEARANCE Well appearing, alert, in no acute distress, well-hydrated, well nourished. DTaP,Tdap,Td Vaccine(1 - Tdap) Never done Shingrix Vaccine(1 of 2) Never done Pneumococcal Vaccine: 50+(1 of 2 - PCV) Never done RSV Vaccine(1 - Risk 60-74 years 1-dose series) Never done Advance Directive Discussion due on 07/31/2024 Depression Screening due on 12/07/2024 Anxiety Screening due on 12/07/2024 Medicare Annual Wellness Visit due on 12/07/2024 Influenza Vaccine(1) due on 01/27/2026 LDL Cholesterol due on 09/02/2025 Annual PCP Team Chronic Disease Visit due on 04/21/2026 Diabetes Screening due on 03/19/2028 Lipid Screening due on 09/02/2029 Colorectal Cancer Screening due on 04/08/2035 Abdominal Aortic Aneurysm Screening Completed Hepatitis C Screening Completed ASSESSMENT/PLAN: 1. RUQ pain - ICD9: 789.01, ICD10: R10.11 - not exactly sure why he is following up today as this was addressed by gastro - instructed patient to continue their recommendations and follow-up as instructed - follow-up with PCP in 6 months for routine visit, sooner if needed Alejandra PodlogSESAR alcala.DISASTER RECOVERY MANAGER Prescription instructions reviewed with patient as applicable. Patient advised if symptoms do not improve or if symptoms worsen sooner, to contact their primary care physician. Potential red flag symptoms discussed with the patient. Reviewed appropriate action plan to take if red flag symptoms occur. Patient agreeable to treatment plan. Medical Decision Making: Problems: Low: Stable chronic illness Risk: Low: Low risk from testing/treatment Medical Decision Making Level: 3 - Low [1] Social History Tobacco Use Smoking status: Former Current packs/day: 0.00 Ave (more content not included)... [facility] 04-15-2025 Instructions Saray Marinelli APRN.CNP - 04/15/2025 10:02 AM EDT Start taking Protonix 20mg daily in the morning at least 30 minutes before eating or drinking for 3 months, at 3 months can stop taking medication -if no improvement with the nausea after eating in 1 month let me know and I will order a HIDA scan to check the functioning of the gallbladder -normal to experience diarrhea and bloating for the first week or two while taking the medication, if it is intolerable let me know and we can switch to a similar medication 2. Repeat colonoscopy in 5 to 10 years or sooner with any concerning symptoms documented in this encounter [facility] 04-15-2025 History of Presen t illness Narrative FOLLOW UP VISIT - ENDOSCOPY Sharonda Flores 1955 [id number] REFERRING PHYSICIAN: No referring provider defined for this encounter. Sharonda Flores is a patient I am following for melena & RUQ pain. Dr. Robles performed upper & lower endoscopy on 04/08/25. The patient was found to have EGD Patchy mildly erythematous mucosa without active bleeding and with no stigmata of bleeding was found in the duodenal bulb. Biopsies were taken with a cold forceps for histology. Patchy mildly erythematous mucosa without bleeding was found in the gastric body. Biopsies were taken with a cold forceps for histology. Also biopsy taken of antrum for h pylori. Verification of patient identification for the specimen was done by the nurse. Estimated blood loss was minimal. A very small hiatal hernia was present. COLONOSCOPY Impression: - Non-bleeding internal hemorrhoids. - Diverticulosis in the sigmoid colon. - No specimens collected. Pathology demonstrated: FINAL DIAGNOSIS A. Small bowel, duodenum, biopsy: - Superficial fragments of small bowel mucosa with extensive gastric mucin cell metaplasia B. Stomach, antrum, biopsy: - Antral-type gastric mucosa with no diagnostic abnormalities. - No helicobacter organisms identified. C. Stomach, body, biopsy: - Fragments of antral and oxyntic type gastric mucosa with no diagnostic abnormalities. - No helicobacter organisms identified. RUQ US IMPRESSION: 1. Gallbladder is contracted with thickened wall 2. Spleen is mildly enlarged The patient notes continued struggles with constipation -noting he needs to use catrol oil -can't eat late at night or red sauce or he tastes his food -does use pepto bismol -notes nausea after eating VITALS: There were no vitals taken for this visit. General: patient is alert, cooperative, pleasant and in no acute distress On examination, the abdomen is RUQ pain. Assessment ASSESSMENT/PLAN: 1. RUQ pain - ICD9: 789.01, ICD10: R10.11 - Begin treatment with Protonix 20 mg every day x 3 mos - If post prandial nausea is not relieved with Protonix after 1 month will order HIDA - RUQ pain not believe to be related to gallbladder since it is not post prandial & has been present since CABG in 2023- if no improvement with protonix will refer to GI I reviewed the results with Dr. Robles who agrees with the above plan. The operative findings and pathology report were reviewed with the patient, and the patient has had the opportunity to ask questions and have questions answered. If the patient notes any problems or changes in bowel function, the patient should contact me immediately. Otherwise I recommend follow up colonoscopy in 5 to 10 years. HM updated. Discussed treatment plan and patient voices understanding. Patient's questions answered appropriately. Medications and potential side effects were discussed and patient voices understanding. Return to the office as scheduled or as needed for worsening/no improvement. Saray Marinelli APRN.RENEE documented in this encounter [facility] 04-15-2025 Note HNO ID: [id number] Author: SARAY MARINELLI APRN.RENEE Service: ? Author Type: Nurse Practitioner Type: Progress Notes Filed: 04/15/2025 10:12 Note Text: FOLLOW UP VISIT - ENDOSCOPY Sharonda Flores 1955 [id number] REFERRING PHYSICIAN: No referring provider defined for this encounter. Sharonda Flores is a patient I am following for melena AND RUQ pain. Dr. Robles performed upper AND lower endoscopy on 04/08/25. The patient was found to have EGD Patchy mildly erythematous mucosa without active bleeding and with no stigmata of bleeding was found in the duodenal bulb. Biopsies were taken with a cold forceps for histology. Patchy mildly erythematous mucosa without bleeding was found in the gastric body. Biopsies were taken with a cold forceps for histology. Also biopsy taken of antrum for h pylori. Verification of patient identification for the specimen was done by the nurse. Estimated blood loss was minimal. A very small hiatal hernia was present. COLONOSCOPY Impression: - Non-bleeding internal hemorrhoids. - Diverticulosis in the sigmoid colon. - No specimens collected. Pathology demonstrated: FINAL DIAGNOSIS A. Small bowel, duodenum, biopsy: - Superficial fragments of small bowel mucosa with extensive gastric mucin cell metaplasia B. Stomach, antrum, biopsy: - Antral-type gastric mucosa with no diagnostic abnormalities. - No helicobacter organisms identified. C. Stomach, body, biopsy: - Fragments of antral and oxyntic type gastric mucosa with no diagnostic abnormalities. - No helicobacter organisms identified. RUQ US IMPRESSION: 1. Gallbladder is contracted with thickened wall 2. Spleen is mildly enlarged The patient notes continued struggles with constipation -noting he needs to use catrol oil -can't eat late at night or red sauce or he tastes his food -does use pepto bismol -notes nausea after eating VITALS: There were no vitals taken for this visit. General: patient is alert, cooperative, pleasant and in no acute distress On examination, the abdomen is RUQ pain. Assessment ASSESSMENT/PLAN: 1. RUQ pain - ICD9: 789.01, ICD10: R10.11 - Begin treatment with Protonix 20 mg every day x 3 mos - If post prandial nausea is not relieved with Protonix after 1 month will order HIDA - RUQ pain not believe to be related to gallbladder since it is not post prandial AND has been present since CABG in 2023- if no improvement with protonix will refer to GI I reviewed the results with Dr. Robles who agrees with the above plan. The operative findings and pathology report were reviewed with the patient, and the patient has had the opportunity to ask questions and have questions answered. If the patient notes any problems or changes in bowel function, the patient should contact me immediately. Otherwise I recommend follow up colonoscopy in 5 to 10 years. HM updated. Discussed treatment plan and patient voices understanding. Patient's questions answered appropriately. Medications and potential side effects were discussed and patient voices understanding. Return to the office as scheduled or as needed for worsening/no improvement. Sarayumu Marinelli APRN.RENEE [facility] 04-15-2025 Note HNO ID: [id number] Author: CRISTO LOERA, DO Service: ? Author Type: Physician Type: Progress Notes Filed: 04/15/2025 16:31 Note Text: [facility] DEPARTMENT OF VASCULAR SURGERY OUTPATIENT VISIT DATE April 15, 2025 OUTPATIENT VISIT TYPE CONSULTATION SERVICE DATE: 04/15/2025 SERVICE TIME: 8:18 AM PRIMARY CARE PHYSICIAN: Tima Tello MD REFERRING PROVIDER: Tima Tello [address] [facility] [id number] Consult requested for an opinion regarding the evaluation and treatment of the above. My final impression and recommendations will be communicated back to the requesting physician by way of the shared medical record or letter via [place] mail. CHIEF COMPLAINT: AAA, atherosclerotic ulcer of aorta HISTORY OF PRESENT ILLNESS: Vascular consultation at the request of Dr. Tima Tello. A copy of this consultation note will be provided to the requesting physician by way of shared Medical record or letter to requesting physician via US mail. Mr. Flores is a 69 year old male who is seen today for AAA and atherosclerotic ulcer. He has been having right upper quadrant pain which he has noticed after his CABG and VATS. He denies significant family history of aneurysmal disease. States he had blood pressure cuff testing on his legs in the past and carotid ultrasound. His biggest concern is of upper abdominal pain. Denies significant history of trauma or tearing/crushing abdominal or back pain. PAST MEDICAL HISTORY Diagnosis Date Abdominal aortic aneurysm (AAA) without rupture 3 x 3.1 cm 05/2021, repeat 1 year. 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 Tineo Essential hypertension Heart attack (HCC) 2011 s/p stents History of tobacco use HLD (hyperlipidemia) Multiple lung nodules on CT 11/09/2023 PET scan ordered PAD (peripheral artery disease) 04/04/2024 Mild to moderate disease LLE on LINH Primary lung adenocarcinoma, right (HCC) RUL,s/p 02/09/24 flexible bronchoscopy, right VATS, right upper lobe wedge resection, cryo nerve block, mediastinal lymph node dissection Psoriasis [facility] S/P lobectomy of lung S/P triple vessel bypass 07/25/2024 Thrombocytopenia Tinnitus of both ears PAST SURGICAL HISTORY Procedure Laterality Date APPENDECTOMY HX COLONOSCOPY 04/08/2025 COLONOSCOPY FLX DX W/COLLJ SPEC WHEN PFRMD 10/08/2008 Colonoscopy COLONOSCOPY FLX DX W/COLLJ SPEC WHEN PFRMD 08/03/2021 repeat in 10 years EGD 04/08/2025 EXTRACTION, ERUPTED TOOTH OR EXPOSED ROOT (ELEVATION AND/OR FORCEPS REMOVAL) wisdom HEART CATHETERIZATION 2012 stent x 4 HEART SURGERY HX LUNG SURGERY HX Right 02/09/2024 right VATS Right Upper lobe Lung resection PAST SURGICAL HISTORY OF age 6 appendectomy, no rupture PAST SURGICAL HISTORY OF Right 09/2021 cyst removal from chest wall PAST SURGICAL HISTORY OF 07/25/2024 Triple Bypass PT ED HEART AND VASCULAR 2011 TONSILLECTOMY HX TONSILLECTOMY PRIMARY/SECONDARY tonsillectomy SOCIAL HISTORY: SOCIAL HISTORY[1] FAMILY HISTORY Problem Relation Age of Onset Breast Cancer Mother Heart Father details uncertain; ? h/o rheumatic fever Stroke Father details uncertain No Known Problems Brother No Known Problems Daughter No Known Problems Daughter No Known Problems Son No Known Problems Son No Known Problems Maternal Grandmother No Known Problems Maternal Grandfather No Known Problems Paternal Grandmother No Known Problems Paternal Grandfather Diabetes Other none Colon Cancer Other none Prostate Cancer Other none Anesthesia Problems No Family History MEDICATIONS: secukinumab (COSENTYX, 2 SYRINGES,) 150 mg/mL injection Inject 300 mg subcutaneously one time a week. docusate sodium (COLACE) 100 mg capsule Take 1 capsule by mouth two times a day as needed for constipation. polyethylene glycol 3350 (MIRALAX) 17 gram/dose powder Take 17 g by mouth two times a day. Dissolve dose in 4 - 8 ounces of liquid and take as directed. ezetimibe (ZETIA) 10 mg tablet Take 10 mg by mouth once daily. isosorbide mononitrate ER (IMDUR) 30 mg 24 hr tablet Take 30 mg by mouth once daily. methocarbamol 1,000 mg tablet Take 1,000 mg by mouth four times daily. clopidogrel (PLAVIX) 75 mg tablet Take 75 mg by mouth. atorvastatin (LIPITOR) 80 mg tablet Take 1 tablet by mouth daily at bedtime. For cholesterol. Aspirin 81 mg Tab Take 81 mg by mouth once daily. ALLERGIES: ALLERGIES Allergen Reactions Penicillins Hives REVIEW of SYSTEM: Constitutional: Negative for Malaise and significant weight loss, Positive for fever HEENT: Negative for frequent or significant headaches, No changes in hearing or vision, no nose bleeds or other nasal problems Respiratory: Negative for cough and wheezing and Positive for sh (more content not included)... [facility] 04-15-2025 History of Presen t illness Narrative Images from the original note were not included. [facility] DEPARTMENT OF VASCULAR SURGERY OUTPATIENT VISIT DATE April 15, 2025 OUTPATIENT VISIT TYPE CONSULTATION SERVICE DATE: 04/15/2025 SERVICE TIME: 8:18 AM PRIMARY CARE PHYSICIAN: Tima Tello MD REFERRING PROVIDER: Tima Tello [address] [facility] [address] Consult requested for an opinion regarding the evaluation and treatment of the above. My final impression and recommendations will be communicated back to the requesting physician by way of the shared medical record or letter via [place] mail. CHIEF COMPLAINT: AAA, atherosclerotic ulcer of aorta HISTORY OF PRESENT ILLNESS: Vascular consultation at the request of Dr. Tima Tello. A copy of this consultation note will be provided to the requesting physician by way of shared Medical record or letter to requesting physician via US mail. Mr. Flores is a 69 year old male who is seen today for AAA and atherosclerotic ulcer. He has been having right upper quadrant pain which he has noticed after his CABG and VATS. He denies significant family history of aneurysmal disease. States he had blood pressure cuff testing on his legs in the past and carotid ultrasound. His biggest concern is of upper abdominal pain. Denies significant history of trauma or tearing/crushing abdominal or back pain. PAST MEDICAL HISTORY Diagnosis Date Abdominal aortic aneurysm (AAA) without rupture 3 x 3.1 cm 05/2021, repeat 1 year. 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 Tineo Essential hypertension Heart attack (HCC) 2011 s/p stents History of tobacco use HLD (hyperlipidemia) Multiple lung nodules on CT 11/09/2023 PET scan ordered PAD (peripheral artery disease) 04/04/2024 Mild to moderate disease LLE on LINH Primary lung adenocarcinoma, right (HCC) RUL,s/p 02/09/24 flexible bronchoscopy, right VATS, right upper lobe wedge resection, cryo nerve block, mediastinal lymph node dissection Psoriasis [facility] S/P lobectomy of lung S/P triple vessel bypass 07/25/2024 Thrombocytopenia Tinnitus of both ears PAST SURGICAL HISTORY Procedure Laterality Date APPENDECTOMY HX COLONOSCOPY 04/08/2025 COLONOSCOPY FLX DX W/COLLJ SPEC WHEN PFRMD 10/08/2008 Colonoscopy COLONOSCOPY FLX DX W/COLLJ SPEC WHEN PFRMD 08/03/2021 repeat in 10 years EGD 04/08/2025 EXTRACTION, ERUPTED TOOTH OR EXPOSED ROOT (ELEVATION AND/OR FORCEPS REMOVAL) wisdom HEART CATHETERIZATION 2012 stent x 4 HEART SURGERY HX LUNG SURGERY HX Right 02/09/2024 right VATS Right Upper lobe Lung resection PAST SURGICAL HISTORY OF age 6 appendectomy, no rupture PAST SURGICAL HISTORY OF Right 09/2021 cyst removal from chest wall PAST SURGICAL HISTORY OF 07/25/2024 Triple Bypass PT ED HEART AND VASCULAR 2012 TONSILLECTOMY HX TONSILLECTOMY PRIMARY/SECONDARY <AGE 12 tonsillectomy SOCIAL HISTORY: SOCIAL HISTORY[1] FAMILY HISTORY Problem Relation Age of Onset Breast Cancer Mother Heart Father details uncertain; ? h/o rheumatic fever Stroke Father details uncertain No Known Problems Brother No Known Problems Daughter No Known Problems Daughter No Known Problems Son No Known Problems Son No Known Problems Maternal Grandmother No Known Problems Maternal Grandfather No Known Problems Paternal Grandmother No Known Problems Paternal Grandfather Diabetes Other none Colon Cancer Other none Prostate Cancer Other none Anesthesia Problems No Family History MEDICATIONS: secukinumab (COSENTYX, 2 SYRINGES,) 150 mg/mL injection Inject 300 mg subcutaneously one time a week. docusate sodium (COLACE) 100 mg capsule Take 1 capsule by mouth two times a day as needed for constipation. polyethylene glycol 3350 (MIRALAX) 17 gram/dose powder Take 17 g by mouth two times a day. Dissolve dose in 4 - 8 ounces of liquid and take as directed. ezetimibe (ZETIA) 10 mg tablet Take 10 mg by mouth once daily. isosorbide mononitrate ER (IMDUR) 30 mg 24 hr tablet Take 30 mg by mouth once daily. methocarbamol 1,000 mg tablet Take 1,000 mg by mouth four times daily. clopidogrel (PLAVIX) 75 mg tablet Take 75 mg by mouth. atorvastatin (LIPITOR) 80 mg tablet Take 1 tablet by mouth daily at bedtime. For cholesterol. Aspirin 81 mg Tab Take 81 mg by mouth once daily. ALLERGIES: ALLERGIES Allergen Reactions Penicillins Hives REVIEW of SYSTEM: Constitutional: Negative for Malaise and significant weight loss, Positive for fever HEENT: Negative for frequent or significant headaches, No changes in hearing or vision, no nose bleeds or other nasal problems Respiratory: Negative for cough and wheezing and Positive for shortness of breath on exertion Cardiovascular: Negative for leg swelling and Positive for chest pain and palpitations Gatrointestinal: Positive for abdominal discomfort and blood in stools Genitourinary: No history of dysuria, frequency, or incontinence Musculoskeletal: Negative for back pain and muscle pain and Positive for joint pain Endocrine: Negative for cold or heat intolerance, polyuria, polydipsia and goiter Hematology/Lymphatic: Positive for bruises easily Neurologic: No history or headaches, syncope, paralysis, seizures or tremors Integumentary: Negative for lesions and Positive for itching PHYSICAL EXAM: VITALS: There were no vitals taken for this visit. General: Alert and oriented Integumentary: Normal color, no rash, no lesions. HEENT: EOM, pupils equal, round and reactive. Cardiovascular: Pulse regular. Lungs: No chest deformities or chest wall tenderness. Abdomen: soft, non-distended Extremities: No deformity, no edema or tenderness, no joint swelling or clubbing. Neurological: Normal cognition and motor skills. Vascular: Dorsalis Pedal Right: Normal - Left: nonpalpable, non-palpable popliteal pulses Diagnostic tests reviewed for today's visit: Most recent labs Most recent imaging CT abd/pelvis- Subcentimeter low-attenuation lesions or cysts in the liver. Bowel wall thickening in the sigmoid colon and descending colon, without adjacent soft tissue stranding or edema. Please clinically correlate. AAA in the distal abdominal aorta. Atherosclerotic ulcer in the abdomen aorta. IMPRESSION: Mr. Flores is a 69 year old male with AAA, peripheral arterial disease . PLAN and RECOMMENDATIONS: Continue Medical Management Discussed CT findings most likely not contributing to current pain Recommend PVRs, carotid duplex, aortic duplex in 6 months Continue blood pressure, cholesterol control Follow up in 6 months SIGNATURE: Cristo Loera DO PATIENT NAME: Sharonda Flores DATE: April 15, 2025 TIME: 8:18 AM [1] Social History Tobacco Use Smoking status: Former Current packs/day: 0.00 Average packs/day: 1.5 packs/day for 25.0 years (37.5 ttl pk-yrs) Types: Cigarettes Start date: 01/24/1986 Quit date: 01/24/2011 Years since quittin.2 Smokeless tobacco: Never Vaping Use Vaping status: Never Used Substance Use Topics Alcohol use: Not Currently Drug use: Yes Types: Marijuana Comment: Twice a month documented in this encounter [facility] 04-14-2025 Telephone encounter Note Pended rx, PULLER OVER to sign. BETH Dr. Tineo 11/13/24. CBC completed 03/19/25 [facility] 04-14-2025 Miscellaneous Notes Pended rx, PULLER OVER to sign. BETH Dr. Tineo 11/13/24. CBC completed 03/19/25 Requesting refill clopidogrel (Plavix) 75 MG tablet [facility] documented in this encounter [facility] 04-14-2025 Telephone encounter Note Requesting refill clopidogrel (Plavix) 75 MG tablet [facility] 04-14-2025 Telephone encounter Note Discussed with pt, he is reaching out to Dr. Tineo's office for refills. [facility] 04-14-2025 Miscellaneous Notes Discussed with pt, he is reaching out to Dr. Tineo's office for refills. Name of caller: Len Contact phone number: [phone] Relationship to Patient: patient [facility] Practice: Cardiothoracic Surgery Chief Complaint/Reason for Call: Patient is calling stating that he is unable to refill his ezetimibe (Zetia) 10 MG without contacting provider first. He has just a few weeks remaining. Advised he may need to contact office on 04/14/25 to discuss. Please call to advise. Best time of day caller can be reached: Any Patient advised that office/PCP has 24-48 business hours to return their call: Yes documented in this encounter [facility] 04-13-2025 Telephone encounter Note Name of caller: Len Contact phone number: [phone] Relationship to Patient: patient Provider: [facility] Practice: Cardiothoracic Surgery Chief Complaint/Reason for Call: Patient is calling stating that he is unable to refill his ezetimibe (Zetia) 10 MG without contacting provider first. He has just a few weeks remaining. Advised he may need to contact office on 04/14/25 to discuss. Please call to advise. Best time of day caller can be reached: Any Patient advised that office/PCP has 24-48 business hours to return their call: Yes [facility] 04-13-2025 Miscellaneous Notes Name of caller: Len Contact phone number: [phone] Relationship to Patient: patient Provider: [facility] Practice: Cardiothoracic Surgery Chief Complaint/Reason for Call: Patient is calling stating that he is unable to refill his ezetimibe (Zetia) 10 MG without contacting provider first. He has just a few weeks remaining. Advised he may need to contact office on Monday morning, 04/14/25 to discuss. Please call to advise. Best time of day caller can be reached: Any Patient advised that office/PCP has 24-48 business hours to return their call: Yes documented in this encounter [facility] 04-11-2025 History of Presen t illness Narrative Radiology Service Progress Note DATE OF SERVICE: April 11, 2025 TIME: 2:21 PM PATIENT IDENTITY VERIFICATION COMPLETED USING TWO (2) STANDARD IDENTIFIERS: Name and Date of confirmed by patient verbally. FALL SCREENING: Has the patient had 2 falls in the last year or 1 fall with injury or currently using an Ambulatory Assistive Device (Walker, Cane, Wheelchair, Crutches, etc.)? No PATIENT GENDER DATA: Assigned male at PATIENT RELEVANT IMPLANT DATA REVIEWED: Yes PATIENT PRESENTS WITH AN IMPLANTABLE OR ATTACHED FIREFIGHTER: No ALLERGIES: Reviewed and unchanged CONTRAST ALLERGY: NO. EXAM: CT -CONTRAST INDUCED NEPHROPATHY RISK FACTORS: Patient age > 60 years CREATININE: Creatinine Date Value Ref Range Status 03/19/2025 1.01 0.73 - 1.22 mg/dL Final 03/11/2025 1.04 0.73 - 1.22 mg/dL Final 06/28/2024 0.97 0.73 - 1.22 mg/dL Final Estimated Glomerular Filtration Rate Date Value Ref Range Status 03/19/2025 81 >=60 mL/min/1.73m Final Comment: Estimated Glomerular Filtration Rate (eGFR) is calculated using the 2020 CKD-EPI creatinine equation. This equation utilizes serum creatinine, sex, and age as parameters. The creatinine assay has traceable calibration to isotope dilution-mass spectrometry. Refer to KDIGO guidelines for clinical interpretation. In patients with unstable renal function, e.g. those with acute kidney injury, the eGFR may not accurately reflect actual GFR. eGFR- Date Value Ref Range Status 12/07/2020 >60 Final P.O.C.T. RESULTS: POC done: Yes, See Lab Tab April 11, 2025 TREATMENT: N/A PERIPHERAL IV DATA: Ambulatory: A peripheral IV was started in the Left antecubital site with a Angio cath: 22 gauge. RADIOLOGY DEPARTMENT: CT; Exam(s) Completed: Abdomen/Pelvis . Anesthesia: No SIGNATURE: RT Lashawn(Bruno) PATIENT NAME: Sharonda Flores DATE: April 11, 2025 TIME: 2:21 PM documented in this encounter [facility] 04-11-2025 Note HNO ID: [id number] Author: KYA RAMIREZ RT(R) Service: ? Author Type: Certified Diabetes Educator Type: Progress Notes Filed: 04/11/2025 14:21 Note Text: Radiology Service Progress Note DATE OF SERVICE: April 11, 2025 TIME: 2:21 PM PATIENT IDENTITY VERIFICATION COMPLETED USING TWO (2) STANDARD IDENTIFIERS: Name and Date of confirmed by patient verbally. FALL SCREENING: Has the patient had 2 falls in the last year or 1 fall with injury or currently using an Ambulatory Assistive Device (Walker, Cane, Wheelchair, Crutches, etc.)? No PATIENT GENDER DATA: Assigned male at PATIENT RELEVANT IMPLANT DATA REVIEWED: Yes PATIENT PRESENTS WITH AN IMPLANTABLE OR ATTACHED FIREFIGHTER: No ALLERGIES: Reviewed and unchanged CONTRAST ALLERGY: NO. EXAM: CT -CONTRAST INDUCED NEPHROPATHY RISK FACTORS: Patient age > 60 years CREATININE: Creatinine Date Value Ref Range Status 03/19/2025 1.01 0.73 - 1.22 mg/dL Final 03/11/2025 1.04 0.73 - 1.22 mg/dL Final 06/28/2024 0.97 0.73 - 1.22 mg/dL Final Estimated Glomerular Filtration Rate Date Value Ref Range Status 03/19/2025 81 >=60 mL/min/1.73m? Final Comment: Estimated Glomerular Filtration Rate (eGFR) is calculated using the 2020 CKD-EPI creatinine equation. This equation utilizes serum creatinine, sex, and age as parameters. The creatinine assay has traceable calibration to isotope dilution-mass spectrometry. Refer to KDIGO guidelines for clinical interpretation. In patients with unstable renal function, e.g. those with acute kidney injury, the eGFR may not accurately reflect actual GFR. eGFR- Date Value Ref Range Status 12/07/2020 >60 Final P.O.C.T. RESULTS: POC done: Yes, See Lab Tab April 11, 2025 TREATMENT: N/A PERIPHERAL IV DATA: Ambulatory: A peripheral IV was started in the Left antecubital site with a Angio cath: 22 gauge. RADIOLOGY DEPARTMENT: CT; Exam(s) Completed: Abdomen/Pelvis . Anesthesia: No SIGNATURE: RT Lashawn(R) PATIENT NAME: Sharonda Flores DATE: April 11, 2025 TIME: 2:[address] [facility] 04-09-2025 History of Presen t illness Narrative Oncologic problem(s): 1) NSCLC s/p resection. HPI: The patient is a 69-year-old male with past medical history as outlined below. Had a screening CT of the lung 11/06/2023. Observed to have a solid nodule in the right upper lobe with an average diameter of approximately 10.2 mm. It would. Mildly larger when compared to scan in July 2023. There were 2 other nodules in the right upper lobe. 1 of which appeared stable and the other measuring 4 x 3 mm may have been slightly larger than when compared to previous scan. A 7.1 mm parenchymal density in the right upper lobe on PET scan performed subsequently had an SUV of 4.1. Ultimately underwent a right sided VATS right upper lobectomy on 02/09/2024. Pathology: FINAL DIAGNOSIS A. Lung, right upper lobe, wedge resection: - Adenocarcinoma, acinar subtype. - Inked surgical margin is positive for carcinoma. - See comment. B. Lymph node, level 9, excision: - Lymph node tissue, negative for carcinoma (0/1). C. Lung, right upper lobe, lobectomy: - Adenocarcinoma, acinar (60%) and lepidic (40%) patterns. - Margins (bronchial, vascular and parenchymal margins) negative for tumor. - Focal features suggestive of prior infarct. - Seven lymph nodes, negative for carcinoma (0/7). - See comment and synoptic report. D. Lymph node, level 4, excision: - Fibroadipose tissue, negative for tumor. - Lymph node tissue is not present. E. Lymph node, level 7, excision: - One lymph node, negative for carcinoma (0/1). Diagnosis Comment A. The tumor in part A shows extensive frozen artifact which limits the morphologic evaluation as well as the evaluation for size,vascular space and pleural invasion. C. Targeted oncology profile (TOP), ALK, PDL1, ROS1 and RET testing will be performed A, C. Dr. rEica Roberts has reviewed this case and agrees with the above diagnosis. Block for additional Biomarkers/Molecular studies C16 Synoptic Report LUNG 8th Edition - Protocol posted: 04/20/2022LUNG: RESECTION - All Specimens SPECIMEN Procedure Lobectomy Specimen Laterality Right TUMOR Tumor Focality Single focus Tumor Site Upper lobe of lung Tumor Size Total Tumor Size (size of entire tumor) Greatest Dimension (Centimeters): at least 1.5 cm Size of Invasive Component Greatest Dimension (Centimeters): at least 1.5 cm Histologic Type Invasive acinar adenocarcinoma Histologic Patterns Present Acinar: 80 Histologic Grade G2, moderately differentiated Spread Through Air Spaces (ANITA) Not identified Visceral Pleura Invasion Not identified Direct Invasion of Adjacent Structures Not applicable (no adjacent structures present) Treatment Effect No known presurgical therapy Lymphovascular Invasion Not identified MARGINS Margin Status for Invasive Carcinoma All margins negative for invasive carcinoma Closest Margin(s) to Invasive Carcinoma Bronchial Vascular Parenchymal Distance from Invasive Carcinoma to Closest Margin 3.5 cm Margin Status for Non-Invasive Tumor All margins negative for non-invasive tumor REGIONAL LYMPH NODES Lymph Node(s) from Prior Procedures Not included Regional Lymph Node Status All regional lymph nodes negative for tumor Number of Lymph Nodes Examined 9 Erika Site(s) Examined 4R: Lower paratracheal 9R: Pulmonary ligament 7: Subcarinal PATHOLOGIC STAGE CLASSIFICATION (pTNM, AJCC 8th Edition) Reporting of pT, pN, and (when applicable) pM categories is based on information available to the pathologist at the time the report is issued. As per the AJCC (Chapter 1, 8th Ed.) it is the managing physician s responsibility to establish the final pathologic stage based upon all pertinent information, including but potentially not limited to this pathology report. pT Category pT1b pN Category pN0 . Presents for ongoing oncologic management. Interim history: Had 3 vessel CABG 06/2024. More constipated since last summer. Having RUQ pain that radiates around to back. Not worse with eating. Uses MiraLAX as advised by his PCP. Moving and taking deep breath can aggravated it. Had EGD and colonoscopy yesterday. Also had recent US RUQ. Results noted. PAST MEDICAL HISTORY Diagnosis Date Abdominal aortic aneurysm (AAA) without rupture 3 x 3.1 cm 05/2021, repeat 1 year. Benign neoplasm of colon Coronary artery disease involving chilkoot coronary artery of chilkoot heart without angina pectoris Dr. Tineo Essential hypertension Heart attack (HCC) 2011 s/p stents History of tobacco use HLD (hyperlipidemia) Multiple lung nodules on CT 11/09/2023 PET scan ordered PAD (peripheral artery disease) 04/04/2024 Mild to moderate disease LLE on LINH Primary lung adenocarcinoma, right (HCC) RUL,s/p 02/09/24 flexible bronchoscopy, right VATS, right upper lobe wedge resection, cryo nerve block, mediastinal lymph node dissection Psoriasis [facility] S/P lobectomy of lung S/P triple vessel bypass 07/25/2024 Thrombocytopenia Tinnitus of both ears PAST SURGICAL HISTORY Procedure Laterality Date APPENDECTOMY HX COLONOSCOPY FLX DX W/COLLJ SPEC WHEN PFRMD 10/08/2008 Colonoscopy COLONOSCOPY FLX DX W/COLLJ SPEC WHEN PFRMD 08/03/2021 repeat in 10 years EXTRACTION, ERUPTED TOOTH OR EXPOSED ROOT (ELEVATION AND/OR FORCEPS REMOVAL) wisdom HEART CATHETERIZATION 2012 stent x 4 HEART SURGERY HX LUNG SURGERY HX Right 02/09/2024 right VATS Right Upper lobe Lung resection PAST SURGICAL HISTORY OF age 6 appendectomy, no rupture PAST SURGICAL HISTORY OF Right 09/2021 cyst removal from chest wall PAST SURGICAL HISTORY OF 07/25/2024 Triple Bypass PT ED HEART AND VASCULAR 2012 TONSILLECTOMY HX TONSILLECTOMY PRIMARY/SECONDARY <AGE 12 tonsillectomy ALLERGIES Allergen Reactions Penicillins Hives Current Outpatient Medications Medication Sig peg 3350-Electrolytes (GOLYTELY) 236-22.74-6.74 -5.86 gram suspension Refer to printed prep instructions from your provider. secukinumab (COSENTYX, 2 SYRINGES,) 150 mg/mL injection Inject 300 mg subcutaneously one time a week. docusate sodium (COLACE) 100 mg capsule Take 1 capsule by mouth two times a day as needed for constipation. polyethylene glycol 3350 (MIRALAX) 17 gram/dose powder Take 17 g by mouth two times a day. Dissolve dose in 4 - 8 ounces of liquid and take as directed. ezetimibe (ZETIA) 10 mg tablet Take 10 mg by mouth once daily. isosorbide mononitrate ER (IMDUR) 30 mg 24 hr tablet Take 30 mg by mouth once daily. methocarbamol 1,000 mg tablet Take 1,000 mg by mouth four times daily. clopidogrel (PLAVIX) 75 mg tablet Take 75 mg by mouth. atorvastatin (LIPITOR) 80 mg tablet Take 1 tablet by mouth daily at bedtime. For cholesterol. Aspirin 81 mg Tab Take 81 mg by mouth once daily. No current facility-administered medications for this visit. Social History Tobacco Use Smoking status: Former Current packs/day: 0.00 Average packs/day: 1.5 packs/day for 25.0 years (37.5 ttl pk-yrs) Types: Cigarettes Start date: 01/24/1986 Quit date: 01/24/2011 Years since quittin.2 Smokeless tobacco: Never Vaping Use Vaping status: Never Used Substance Use Topics Alcohol use: Not Currently Drug use: Yes Types: Marijuana Comment: Twice a month Family History Problem Relation Age of Onset Breast Cancer Mother Heart Father details uncertain; ? h/o rheumatic fever Stroke Father details uncertain No Known Problems Brother No Known Problems Daughter No Known Problems Daughter No Known Problems Son No Known Problems Son No Known Problems Maternal Grandmother No Known Problems Maternal Grandfather No Known Problems Paternal Grandmother No Known Problems Paternal Grandfather Diabetes Other none Colon Cancer Other none Prostate Cancer Other none Anesthesia Problems No Family History ROS: Constitutional: No fever. No drenching night sweats. Normal appetite. No unexplained weight loss. No significant fatigue. Neuro: No recent LANG, vertigo, dizziness or imbalance. No symptoms of sensory neuropathy. HEENT: No recent change in voice, vision or hearing. Resp: CVS: No exertional chest pain, PND or orthopnea. No extremity swelling/edema. GI: No reflux, n/v, change in bowel habits. : No dysuria or gross hematuria. Endo: No hot flashes. Musculoskeletal: See HPI. Derm: No current rash. Heme: No unusual bleeding and unexplained bruising. Psych: Normal mood. PHYSICAL EXAM: Vitals: Blood pressure 123/74, pulse 82, temperature 36.5 C (97.7 F), temperature source Temporal, weight 72.8 kg (160 lb 8 oz), SpO2 100%. Well-appearing and in no acute distress. EYES: Sclerae are anicteric bilaterally. LYMPHATIC: There is no palpable cervical, supraclavicular or axillary adenopathy. RESPIRATORY: Inspiratory breath sounds are of diminished intensity in all bermeo. No rales, wheezes or rhonchi. CARDIOVASCULAR: Rhythm is regular. ABDOMEN: The abdomen is nondistended. Extremities: No swelling or edema. SKIN: No jaundice. ASSESSMENT/PLAN: (C34.11) Malignant neoplasm of upper lobe of right lung (HCC) ((G89.22) Chronic post-thoracotomy pain Assessment: -pT1b pN0 M0 stage IA2 acinar adenocarcinoma, grade 2 of the right upper lobe. -No adjuvant chemotherapy or radiation indicated. -Reviewed CT chest from 03/11/2025. Previous RUL lobectomy. RAMIRO. -He has been having right upper quadrant pain that often times can become very sharp and debilitating. Reviewed ultrasound. Potential gallbladder issue. I explained to him that he has an upcoming appointment next week with general surgery. If it is felt that the gallbladder is not the issue, then we could try gabapentin for postthoracotomy pain. -Discussed surveillance including CT chest with or without contrast every 6 months for 2 to 3 years then low-dose noncontrast enhanced CT chest annually. Plan: -Office visit in 4 to 6 weeks to address postthoracotomy pain. - CT chest with contrast and office visit in 6 months. Portions of this documentation were copied and pasted from my previous office visit note dated 03/20/2024 in order to provide a cohesive continuity of the history. The note has been reviewed and edited and updated as necessary. I spent a total of 30 minutes on the date of the service which included preparing to see the patient, [id number] patient care, completing clinical documentation, obtaining and/or reviewing separately obtained history, performing a medically appropriate examination, counseling and educating the patient/family/caregiver, ordering medications, tests, or procedures, communicating with other HCPs (not separately reported), and communicating results to the patient/family/caregiver. Analy Dumont DO documented in this encounter [facility] 04-09-2025 Note HNO ID: [id number] Author: ANALY DUMONT DO Service: ? Author Type: Physician Type: Progress Notes Filed: 04/09/2025 10:48 Note Text: Oncologic problem(s): 1) NSCLC s/p resection. HPI: The patient is a 69-year-old male with past medical history as outlined below. Had a screening CT of the lung 11/06/2023. Observed to have a solid nodule in the right upper lobe with an average diameter of approximately 10.2 mm. It would. Mildly larger when compared to scan in July 2023. There were 2 other nodules in the right upper lobe. 1 of which appeared stable and the other measuring 4 x 3 mm may have been slightly larger than when compared to previous scan. A 7.1 mm parenchymal density in the right upper lobe on PET scan performed subsequently had an SUV of 4.1. Ultimately underwent a right sided VATS right upper lobectomy on 02/09/2024. Pathology: FINAL DIAGNOSIS A. Lung, right upper lobe, wedge resection: - Adenocarcinoma, acinar subtype. - Inked surgical margin is positive for carcinoma. - See comment. B. Lymph node, level 9, excision: - Lymph node tissue, negative for carcinoma (0/1). C. Lung, right upper lobe, lobectomy: - Adenocarcinoma, acinar (60%) and lepidic (40%) patterns. - Margins (bronchial, vascular and parenchymal margins) negative for tumor. - Focal features suggestive of prior infarct. - Seven lymph nodes, negative for carcinoma (0/7). - See comment and synoptic report. D. Lymph node, level 4, excision: - Fibroadipose tissue, negative for tumor. - Lymph node tissue is not present. E. Lymph node, level 7, excision: - One lymph node, negative for carcinoma (0/1). Diagnosis Comment A. The tumor in part A shows extensive frozen artifact which limits the morphologic evaluation as well as the evaluation for size,vascular space and pleural invasion. C. Targeted oncology profile (TOP), ALK, PDL1, ROS1 and RET testing will be performed A, C. Dr. Erica Roberts has reviewed this case and agrees with the above diagnosis. Block for additional Biomarkers/Molecular studies C16 Synoptic Report LUNG 8th Edition - Protocol posted: 04/20/2022LUNG: RESECTION - All Specimens SPECIMEN Procedure Lobectomy Specimen Laterality Right TUMOR Tumor Focality Single focus Tumor Site Upper lobe of lung Tumor Size Total Tumor Size (size of entire tumor) Greatest Dimension (Centimeters): at least 1.5 cm Size of Invasive Component Greatest Dimension (Centimeters): at least 1.5 cm Histologic Type Invasive acinar adenocarcinoma Histologic Patterns Present Acinar: 80 Histologic Grade G2, moderately differentiated Spread Through Air Spaces (ANITA) Not identified Visceral Pleura Invasion Not identified Direct Invasion of Adjacent Structures Not applicable (no adjacent structures present) Treatment Effect No known presurgical therapy Lymphovascular Invasion Not identified MARGINS Margin Status for Invasive Carcinoma All margins negative for invasive carcinoma Closest Margin(s) to Invasive Carcinoma Bronchial Vascular Parenchymal Distance from Invasive Carcinoma to Closest Margin 3.5 cm Margin Status for Non-Invasive Tumor All margins negative for non-invasive tumor REGIONAL LYMPH NODES Lymph Node(s) from Prior Procedures Not included Regional Lymph Node Status All regional lymph nodes negative for tumor Number of Lymph Nodes Examined 9 Erika Site(s) Examined 4R: Lower paratracheal 9R: Pulmonary ligament 7: Subcarinal PATHOLOGIC STAGE CLASSIFICATION (pTNM, AJCC 8th Edition) Reporting of pT, pN, and (when applicable) pM categories is based on information available to the pathologist at the time the report is issued. As per the AJCC (Chapter 1, 8th Ed.) it is the managing physician?s responsibility to establish the final pathologic stage based upon all pertinent information, including but potentially not limited to this pathology report. pT Category pT1b pN Category pN0 . Presents for ongoing oncologic management. Interim history: Had 3 vessel CABG 06/2024. More constipated since last summer. Having RUQ pain that radiates around to back. Not worse with eating. Uses MiraLAX as advised by his PCP. Moving and taking deep breath can aggravated it. Had EGD and colonoscopy yesterday. Also had recent US RUQ. Results noted. PAST MEDICAL HISTORY Diagnosis Date Abdominal aortic aneurysm (AAA) without rupture 3 x 3.1 cm 05/2021, repeat 1 year. Benign neoplasm of colon Coronary artery disease involving chilkoot coronary artery of chilkoot heart without angina pectoris Dr. Tineo Essential hypertension Heart attack (HCC) 2011 s/p stents History of tobacco use HLD (hyperlipidemia) Multiple lung nodules on CT 11/09/2023 PET scan ordered PAD (peripheral artery disease) 04/04/2024 Mild to moderate disease LLE on LINH Primary lung adenocarcinoma, (more content not included)... [facility] 04-08-2025 Note Formatting of this n ote might be different from the original. The patient received a copy of Colonoscopy and EGD discharge instructions that contain information for how to contact the physician who performed the procedure and when to seek medical care. [facility] 04-08-2025 Miscellaneous Notes The patient received a copy of Colonoscopy and EGD discharge instructions that contain information for how to contact the physician who performed the procedure and when to seek medical care. documented in this encounter [facility] 04-08-2025 History and physical note HISTORY AND PHYSICAL Sharonda Flores : 1955 REFERRING PHYSICIAN: Tima Tello [address] [facility] [id number] CHIEF COMPLAINT: Patient presents with: Rectal Problem: blood in stool HPI: Sharonda is a 69 year old male referred for endoscopy. Sharonda notes constipation & melena. Sharonda notes abdominal pain. -relieved with bowel movement Sharonda denies diarrhea. Sharonda notes constipation. -chronic, happens one time a month -uses castor oil which causes black stools -no fiber supplements -tried miraLAX once with no relief Sharonda notes melena. -most recent BM described as black and watery Sharonda denies bright red blood per rectum. Sharonda notes occasional hemorrhoids. Sharonda denies family history of colon issues. Sharonda notes heartburn. -if eating too late a night Sharonda denies dysphagia. Sharonda denies a history of ulcers/ peptic ulcer disease. Sharonda notes a lot of nausea after eating Sharonda notes a lot of chronic RUQ pain that has been present since his CABG last year. Hx of CABG (06/2024), [place] s/p stents (2011), HLD, HTN & AAA- follow with cardiology On plavix He CP, SOB, dizziness, palpitations, syncope, edema, recent hospitalizations Hx of RUL wedge 01/2024 d/t lung cancer. No chemo or radiation. Sharonda has undergone prior endoscopy. Last colonoscopy was 07/[address] Ariza at [facility]. Sedation: Midazolam 5 mg IV, Fentanyl 100 micrograms IV Impression: - Diverticulosis in the sigmoid colon. - Submucosal nodule in the recto-sigmoid colon. Biopsied. - The examination was otherwise normal on direct and retroflexion views. CONVERTED FINAL DIAGNOSIS Colon at 20 cm, biopsy - Hyperplastic polyp. TPP/lk 08/04/2021 CURRENT MEDICATIONS Current Outpatient Medications Medication Sig secukinumab (COSENTYX, 2 SYRINGES,) 150 mg/mL injection Inject 300 mg subcutaneously one time a week. docusate sodium (COLACE) 100 mg capsule Take 1 capsule by mouth two times a day as needed for constipation. ezetimibe (ZETIA) 10 mg tablet Take 10 mg by mouth once daily. isosorbide mononitrate ER (IMDUR) 30 mg 24 hr tablet Take 30 mg by mouth once daily. methocarbamol 1,000 mg tablet Take 1,000 mg by mouth four times daily. clopidogrel (PLAVIX) 75 mg tablet Take 75 mg by mouth. atorvastatin (LIPITOR) 80 mg tablet Take 1 tablet by mouth daily at bedtime. For cholesterol. Aspirin 81 mg Tab Take 81 mg by mouth once daily. peg 3350-Electrolytes (GOLYTELY) 236-22.74-6.74 -5.86 gram suspension Refer to printed prep instructions from your provider. polyethylene glycol 3350 (MIRALAX) 17 gram/dose powder Take 17 g by mouth two times a day. Dissolve dose in 4 - 8 ounces of liquid and take as directed. No current facility-administered medications for this visit. ALLERGIES: Penicillins PAST MEDICAL HISTORY PAST MEDICAL HISTORY Diagnosis Date Abdominal aortic aneurysm (AAA) without rupture 3 x 3.1 cm 05/2021, repeat 1 year. Benign neoplasm of colon Coronary artery disease involving chilkoot coronary artery of chilkoot heart without angina pectoris Dr. Tineo Essential hypertension Heart attack (HCC) 2011 s/p stents History of tobacco use HLD (hyperlipidemia) Multiple lung nodules on CT 11/09/2023 PET scan ordered PAD (peripheral artery disease) 04/04/2024 Mild to moderate disease LLE on LINH Primary lung adenocarcinoma, right (HCC) RUL,s/p 02/09/24 flexible bronchoscopy, right VATS, right upper lobe wedge resection, cryo nerve block, mediastinal lymph node dissection Psoriasis [facility] S/P lobectomy of lung S/P triple vessel bypass 07/25/2024 Thrombocytopenia Tinnitus of both ears PAST SURGICAL HISTORY PAST SURGICAL HISTORY Procedure Laterality Date COLONOSCOPY FLX DX W/COLLJ SPEC WHEN PFRMD 10/08/2008 Colonoscopy COLONOSCOPY FLX DX W/COLLJ SPEC WHEN PFRMD 08/03/2021 repeat in 10 years EXTRACTION, ERUPTED TOOTH OR EXPOSED ROOT (ELEVATION AND/OR FORCEPS REMOVAL) wisdom HEART CATHETERIZATION 2012 stent x 4 HEART SURGERY HX LUNG SURGERY HX Right 02/09/2024 right VATS Right Upper lobe Lung resection PAST SURGICAL HISTORY OF age 6 appendectomy, no rupture PAST SURGICAL HISTORY OF Right 09/2021 cyst removal from chest wall PAST SURGICAL HISTORY OF 07/25/2024 Triple Bypass PT ED HEART AND VASCULAR 2011 TONSILLECTOMY HX TONSILLECTOMY PRIMARY/SECONDARY tonsillectomy FAMILY HISTORY FAMILY HISTORY Problem Relation Age of Onset Breast Cancer Mother Heart Father details uncertain; ? h/o rheumatic fever Stroke Father details uncertain No Known Problems Brother No Known Problems Daughter No Known Problems Daughter No Known Problems Son No Known Problems Son No Known Problems Maternal Grandmother No Known Problems Maternal Grandfather No Known Problems Paternal Grandmother No Known Problems Paternal Grandfather Diabetes Other none Colon Cancer Other none Prostate Cancer Other none Anesthesia Problems No Family History [SOCIAL HISTORY] [SOCIAL HISTORY] Social History Tobacco Use Smoking status: Former Current packs/day: 0.00 Average packs/day: 1.5 packs/day for 25.0 years (37.5 ttl pk-yrs) Types: Cigarettes Start date: 01/24/1986 Quit date: 01/24/2011 Years since quittin.1 Smokeless tobacco: Never Vaping Use Vaping status: Never Used Substance Use Topics Alcohol use: Not Currently Drug use: Yes Types: Marijuana Comment: Twice a month REVIEW OF SYMPTOMS: The review of systems data was entered by the nurse and reviewed by me PHYSICAL EXAMINATION: General: The patient is 69 year old, male well nourished, well hydrated in no acute distress. The patient is oriented to time, place, and person. VITALS: Blood pressure 151/72, pulse 66, resp. rate 14, weight 74.2 kg (163 lb 9.6 oz), SpO2 99%. Body mass index is 25.98 kg/m . HEENT: Normal cephalic, ataumatic, pupils are equally round, sclera are anicteric, mucous membranes are moist, oropharynx is clear. Neck has no masses or asymmetry . Respiratory: Clear to auscultation. Cardiac: Regular rate and rhythm. Abdominal exam: Soft, +very tender at epigastric/RUQ with no palpable masses. No hepatosplenomegaly. No palpable hernias. Extremities: no clubbing or cyanosis LABORATORY VALUES: As Noted RADIOLOGIC STUDIES: As Noted Assessment IMPRESSION: melena, nausea, heart burn, ruq pain, chronic constipation PLAN: I have reviewed my findings with the surgeon. Will plan for upper and lower endoscopy. We discussed the risks and benefits of the planned endoscopy in terms understandable to the patient. I have informed the patient that complications can occur including failure to complete the endoscopy and perforation. Sharonda had the opportunity to ask questions concerning the planned endoscopy. Sharonda freely consents to surgery. RUQ US ordered d/t RUQ tenderness, constipation & post prandial nausea -pt has CT Chest/abd/pelv ordered on 04/11/25 I plan to use Golytely bowel preparation I have explained to the patient the difference between IV conscious sedation and MAC anesthesia - and I have offered either, according to the patient's wishes. I have explained that with IV conscious sedation there is no anesthesia provider available and therefore there is a limitation of the amount of IV medications that can be given and that the patient may wake up in the middle of the procedure and/or experience pain/discomfort during the procedure. Further discussion was done and the patient was given the opportunity to ask questions and all questions were answered. Sharonda chooses IV conscious sedation. Sharonda was counseled that if there are changes in his/her medical condition, to let the office know if surgery should proceed. If there are changes in patient's medical condition from time of this encounter to the day of the procedure that preclude anesthesia, patient may have procedure cancelled for patient's safety. Diagnoses: (R11.0) Nausea (primary encounter diagnosis) (K59.09) Chronic constipation (K92.1) Melena (R12) Heart burn (R10.11) RUQ abdominal pain Consultation requested by Dr. Tello for an opinion regarding melena & constipation. My final recommendations will be communicated back to the requesting physician by way of shared Medical record or letter to requesting physician via US mail. Portions of this documentation were copied and pasted from previous office visit notes in order to provide a cohesive continuity of the history. The note has been reviewed and edited and updated as necessary. Saray Marinelli APRN.DISASTER RECOVERY MANAGER [facility] Work Phone: 04-08-2025 History and physical note HISTORY AND PHYSICAL Sharonda Flores : 1955 REFERRING PHYSICIAN: Tima Tello [address] [facility] [id number] CHIEF COMPLAINT: Patient presents with: Rectal Problem: blood in stool HPI: Sharonda is a 69 year old male referred for endoscopy. Sharonda notes constipation & melena. Sharonda notes abdominal pain. -relieved with bowel movement Sharonda denies diarrhea. Sharonda notes constipation. -chronic, happens one time a month -uses castor oil which causes black stools -no fiber supplements -tried miraLAX once with no relief Sharonda notes melena. -most recent BM described as black and watery Sharonda denies bright red blood per rectum. Sharonda notes occasional hemorrhoids. Sharonda denies family history of colon issues. Sharonda notes heartburn. -if eating too late a night Sharonda denies dysphagia. Sharonda denies a history of ulcers/ peptic ulcer disease. Sharonda notes a lot of nausea after eating Sharonda notes a lot of chronic RUQ pain that has been present since his CABG last year. Hx of CABG (06/2024), [place] s/p stents (2011), HLD, HTN & AAA- follow with cardiology On plavix He CP, SOB, dizziness, palpitations, syncope, edema, recent hospitalizations Hx of RUL wedge 01/2024 d/t lung cancer. No chemo or radiation. Sharonda has undergone prior endoscopy. Last colonoscopy was 07/[address] Ariza at [facility]. Sedation: Midazolam 5 mg IV, Fentanyl 100 micrograms IV Impression: - Diverticulosis in the sigmoid colon. - Submucosal nodule in the recto-sigmoid colon. Biopsied. - The examination was otherwise normal on direct and retroflexion views. CONVERTED FINAL DIAGNOSIS Colon at 20 cm, biopsy - Hyperplastic polyp. TPP/lk 08/04/2021 CURRENT MEDICATIONS Current Outpatient Medications Medication Sig secukinumab (COSENTYX, 2 SYRINGES,) 150 mg/mL injection Inject 300 mg subcutaneously one time a week. docusate sodium (COLACE) 100 mg capsule Take 1 capsule by mouth two times a day as needed for constipation. ezetimibe (ZETIA) 10 mg tablet Take 10 mg by mouth once daily. isosorbide mononitrate ER (IMDUR) 30 mg 24 hr tablet Take 30 mg by mouth once daily. methocarbamol 1,000 mg tablet Take 1,000 mg by mouth four times daily. clopidogrel (PLAVIX) 75 mg tablet Take 75 mg by mouth. atorvastatin (LIPITOR) 80 mg tablet Take 1 tablet by mouth daily at bedtime. For cholesterol. Aspirin 81 mg Tab Take 81 mg by mouth once daily. peg 3350-Electrolytes (GOLYTELY) 236-22.74-6.74 -5.86 gram suspension Refer to printed prep instructions from your provider. polyethylene glycol 3350 (MIRALAX) 17 gram/dose powder Take 17 g by mouth two times a day. Dissolve dose in 4 - 8 ounces of liquid and take as directed. No current facility-administered medications for this visit. ALLERGIES: Penicillins PAST MEDICAL HISTORY PAST MEDICAL HISTORY Diagnosis Date Abdominal aortic aneurysm (AAA) without rupture 3 x 3.1 cm 05/2021, repeat 1 year. Benign neoplasm of colon Coronary artery disease involving chilkoot coronary artery of chilkoot heart without angina pectoris Dr. Tineo Essential hypertension Heart attack (HCC) 2011 s/p stents History of tobacco use HLD (hyperlipidemia) Multiple lung nodules on CT 11/09/2023 PET scan ordered PAD (peripheral artery disease) 04/04/2024 Mild to moderate disease LLE on LINH Primary lung adenocarcinoma, right (HCC) RUL,s/p 02/09/24 flexible bronchoscopy, right VATS, right upper lobe wedge resection, cryo nerve block, mediastinal lymph node dissection Psoriasis [facility] S/P lobectomy of lung S/P triple vessel bypass 07/25/2024 Thrombocytopenia Tinnitus of both ears PAST SURGICAL HISTORY PAST SURGICAL HISTORY Procedure Laterality Date COLONOSCOPY FLX DX W/COLLJ SPEC WHEN PFRMD 10/08/2008 Colonoscopy COLONOSCOPY FLX DX W/COLLJ SPEC WHEN PFRMD 08/03/2021 repeat in 10 years EXTRACTION, ERUPTED TOOTH OR EXPOSED ROOT (ELEVATION AND/OR FORCEPS REMOVAL) wisdom HEART CATHETERIZATION 2012 stent x 4 HEART SURGERY HX LUNG SURGERY HX Right 02/09/2024 right VATS Right Upper lobe Lung resection PAST SURGICAL HISTORY OF age 6 appendectomy, no rupture PAST SURGICAL HISTORY OF Right 09/2021 cyst removal from chest wall PAST SURGICAL HISTORY OF 07/25/2024 Triple Bypass PT ED [facility] VASCULAR 2011 TONSILLECTOMY HX TONSILLECTOMY PRIMARY/SECONDARY <AGE 12 tonsillectomy FAMILY HISTORY FAMILY HISTORY Problem Relation Age of Onset Breast Cancer Mother Heart Father details uncertain; ? h/o rheumatic fever Stroke Father details uncertain No Known Problems Brother No Known Problems Daughter No Known Problems Daughter No Known Problems Son No Known Problems Son No Known Problems Maternal Grandmother No Known Problems Maternal Grandfather No Known Problems Paternal Grandmother No Known Problems Paternal Grandfather Diabetes Other none Colon Cancer Other none Prostate Cancer Other none Anesthesia Problems No Family History [SOCIAL HISTORY] [SOCIAL HISTORY] Social History Tobacco Use Smoking status: Former Current packs/day: 0.00 Average packs/day: 1.5 packs/day for 25.0 years (37.5 ttl pk-yrs) Types: Cigarettes Start date: 01/24/1986 Quit date: 01/24/2011 Years since quittin.1 Smokeless tobacco: Never Vaping Use Vaping status: Never Used Substance Use Topics Alcohol use: Not Currently Drug use: Yes Types: Marijuana Comment: Twice a month REVIEW OF SYMPTOMS: The review of systems data was entered by the nurse and reviewed by me PHYSICAL EXAMINATION: General: The patient is 69 year old, male well nourished, well hydrated in no acute distress. The patient is oriented to time, place, and person. VITALS: Blood pressure 151/72, pulse 66, resp. rate 14, weight 74.2 kg (163 lb 9.6 oz), SpO2 99%. Body mass index is 25.98 kg/m . HEENT: Normal cephalic, ataumatic, pupils are equally round, sclera are anicteric, mucous membranes are moist, oropharynx is clear. Neck has no masses or asymmetry . Respiratory: Clear to auscultation. Cardiac: Regular rate and rhythm. Abdominal exam: Soft, +very tender at epigastric/RUQ with no palpable masses. No hepatosplenomegaly. No palpable hernias. Extremities: no clubbing or cyanosis LABORATORY VALUES: As Noted RADIOLOGIC STUDIES: As Noted Assessment IMPRESSION: melena, nausea, heart burn, ruq pain, chronic constipation PLAN: I have reviewed my findings with the surgeon. Will plan for upper and lower endoscopy. We discussed the risks and benefits of the planned endoscopy in terms understandable to the patient. I have informed the patient that complications can occur including failure to complete the endoscopy and perforation. Sharonda had the opportunity to ask questions concerning the planned endoscopy. Sharonda freely consents to surgery. RUQ US ordered d/t RUQ tenderness, constipation & post prandial nausea -pt has CT Chest/abd/pelv ordered on 04/11/25 I plan to use Golytely bowel preparation I have explained to the patient the difference between IV conscious sedation and MAC anesthesia - and I have offered either, according to the patient's wishes. I have explained that with IV conscious sedation there is no anesthesia provider available and therefore there is a limitation of the amount of IV medications that can be given and that the patient may wake up in the middle of the procedure and/or experience pain/discomfort during the procedure. Further discussion was done and the patient was given the opportunity to ask questions and all questions were answered. Sharonda chooses IV conscious sedation. Sharonda was counseled that if there are changes in his/her medical condition, to let the office know if surgery should proceed. If there are changes in patient's medical condition from time of this encounter to the day of the procedure that preclude anesthesia, patient may have procedure cancelled for patient's safety. Diagnoses: (R11.0) Nausea (primary encounter diagnosis) (K59.09) Chronic constipation (K92.1) Melena (R12) Heart burn (R10.11) RUQ abdominal pain Consultation requested by Dr. Tello for an opinion regarding melena & constipation. My final recommendations will be communicated back to the requesting physician by way of shared Medical record or letter to requesting physician via [place] mail. Portions of this documentation were copied and pasted from previous office visit notes in order to provide a cohesive continuity of the history. The note has been reviewed and edited and updated as necessary. Saray Marinelli APRN.DISASTER RECOVERY MANAGER documented in this encounter [facility] 03-27-2025 History of Presen t illness Narrative Radiology Service Progress Note PATIENT NAME: Sharonda Flores DATE OF SERVICE: March 27, 2025 TIME: 7:41 AM PATIENT IDENTITY VERIFICATION COMPLETED USING TWO (2) IDENTIFIERS: Name and Date of confirmed by patient verbally. FALL SCREENING: Has the patient had 2 falls in the last year or 1 fall with injury or currently using an Ambulatory Assistive Device (Walker, Cane, Wheelchair, Crutches, etc.)? No PATIENT GENDER DATA: Assigned male at PATIENT RELEVANT IMPLANT DATA REVIEWED: Not Applicable PATIENT PRESENTS WITH AN IMPLANTABLE OR ATTACHED FIREFIGHTER: No RADIOLOGY DEPARTMENT: Ultrasound PERIPHERAL IV DATA: Not applicable SIGNED BY: Milli England RDMS March 27, 2025 7:41 AM documented in this encounter [facility] 03-27-2025 Note HNO ID: [id number] Author: MILLI ENGLAND RDMS Service: ? Author Type: Certified Diabetes Educator Type: Progress Notes Filed: 03/27/2025 07:41 Note Text: Radiology Service Progress Note PATIENT NAME: Sharonda Flores DATE OF SERVICE: March 27, 2025 TIME: 7:41 AM PATIENT IDENTITY VERIFICATION COMPLETED USING TWO (2) IDENTIFIERS: Name and Date of confirmed by patient verbally. FALL SCREENING: Has the patient had 2 falls in the last year or 1 fall with injury or currently using an Ambulatory Assistive Device (Walker, Cane, Wheelchair, Crutches, etc.)? No PATIENT GENDER DATA: Assigned male at PATIENT RELEVANT IMPLANT DATA REVIEWED: Not Applicable PATIENT PRESENTS WITH AN IMPLANTABLE OR ATTACHED FIREFIGHTER: No RADIOLOGY DEPARTMENT: Ultrasound PERIPHERAL IV DATA: Not applicable SIGNED BY: Milli England RDMS March 27, 2025 7:[address] [facility] 03-26-2025 History of Presen t illness Narrative Images from the original note were not included. Pulmonary Medicine Patients name: Sharonda Flores PCP: Tima Tello MD CC: follow-up HPI: Sharonda Flores is a 69 year old male former 37 pack year smoker, quitting in 2010 with PMH significant for CAD s/p stents, s/p CABG 06/2024, PAD, psoriasis, pulmonary nodules, adenocarcinoma of lung s/p RUL lobectomy 01/2024. No chemotherapy or radiation, follows with oncology. BETH 08/2024 with stable symptoms. He presents today for follow-up. Not currently on inhaled therapy. Since his last visit, he reports symptoms remain stable. He continues to have soreness and a firecracker sensation in his ribs if he over exerts himself that has overall improved since his surgery. Reports exertional dyspnea but is unchanged. He had surveillance chest CT on 03/11 with resolution of previous RLL tree-in-bud opacities. No new nodules noted. Continues to follow with cardiology. Today, he denies coughing, wheezing, chest tightness or pain. No recent hospitalizations or ED visits or upper respiratory infections. PAST MEDICAL HISTORY Diagnosis Date Abdominal aortic aneurysm (AAA) without rupture 3 x 3.1 cm 05/2021, repeat 1 year. Benign neoplasm of colon Coronary artery disease involving chilkoot coronary artery of chilkoot heart without angina pectoris Dr. Tinoe Essential hypertension Heart attack (HCC) 2011 s/p stents History of tobacco use HLD (hyperlipidemia) Multiple lung nodules on CT 11/09/2023 PET scan ordered PAD (peripheral artery disease) 04/04/2024 Mild to moderate disease LLE on LINH Primary lung adenocarcinoma, right (HCC) RUL,s/p 02/09/24 flexible bronchoscopy, right VATS, right upper lobe wedge resection, cryo nerve block, mediastinal lymph node dissection Psoriasis [facility] S/P lobectomy of lung S/P triple vessel bypass 07/25/2024 Thrombocytopenia Tinnitus of both ears Allergies: Penicillins Hives Medication List Accurate as of March 25, 2025 3:19 PM. If you have any questions, ask your nurse or doctor. CONTINUE taking these medications Aspirin 81 mg Tab atorvastatin 80 mg tablet Commonly known as: LIPITOR Take 1 tablet by mouth daily at bedtime. For cholesterol. clopidogrel 75 mg tablet Commonly known as: PLAVIX COSENTYX (2 SYRINGES) 150 mg/mL injection Generic drug: secukinumab docusate sodium 100 mg capsule Commonly known as: COLACE Take 1 capsule by mouth two times a day as needed for constipation. ezetimibe 10 mg tablet Commonly known as: ZETIA isosorbide mononitrate ER 30 mg 24 hr tablet Commonly known as: IMDUR methocarbamol 1,000 mg tablet Commonly known as: TANLOR peg 3350-Electrolytes 236-22.74-6.74 -5.86 gram suspension Commonly known as: GOLYTELY Refer to printed prep instructions from your provider. polyethylene glycol 3350 17 gram/dose powder Commonly known as: MIRALAX Take 17 g by mouth two times a day. Dissolve dose in 4 - 8 ounces of liquid and take as directed. DATA: I personally reviewed and analyzed all labs, radiographs and available pulmonary function testing PFT: 11/2023 Spirometry did not show obstruction. Lung volumes not valid. The diffusing capacity is normal. CT Chest: 03/11/25 IMPRESSION: 1. Resolution of previously described clustered nodules in the right lower lobe. No new nodules are visualized. 2. No thoracic lymphadenopathy Security Business Analyst: PSCB Transcribe Date/Time: Mar 18 2025 2:48P Dictated by : JOANNA LYONS MD This examination was interpreted and the report reviewed and electronically signed by: JOANNA LYONS MD on Mar 18 2025 2:57PM EST Comparison: CT chest 09/06/2024 RESULT: Limitations: None. Lines, tubes, and devices: None. Lung parenchyma and airways: Postoperative changes from a right upper lobectomy. No consolidation. Resolution of previously described clustered nodules in the right lower lobe. No new suspicious pulmonary nodule. The central airways are patent. Pleural space: No pleural effusion. No pleural thickening. Lower neck, lymph nodes, and mediastinum: The imaged thyroid gland is normal. No lymphadenopathy in the supraclavicular, axillary, mediastinal, or hilar regions. Review of Systems Constitutional: Negative for activity change, appetite change and unexpected weight change. HENT: Negative for congestion. Respiratory: Positive for shortness of breath. Negative for cough, chest tightness and wheezing. Cardiovascular: Negative for chest pain, palpitations and leg swelling. Musculoskeletal: Positive for arthralgias. Neurological: Negative for dizziness and weakness. BP 120/74 Pulse 81 Resp 15 Wt 73.9 kg (163 lb) SpO2 100% BMI 25.88 kg/m Physical Exam Vitals reviewed. Constitutional: General: He is not in acute distress. Appearance: Normal appearance. He is not ill-appearing. HENT: Head: Normocephalic. Cardiovascular: Rate and Rhythm: Normal rate and regular rhythm. Heart sounds: Normal heart sounds. Pulmonary: Effort: Pulmonary effort is normal. No respiratory distress. Breath sounds: No wheezing or rhonchi. Musculoskeletal: Right lower leg: No edema. Left lower leg: No edema. Lymphadenopathy: Cervical: No cervical adenopathy. Skin: General: Skin is warm and dry. Capillary Refill: Capillary refill takes less than 2 seconds. Neurological: General: No focal deficit present. Mental Status: He is alert. ASSESSMENT/PLAN: 1. Pulmonary air trapping - ICD9: 786.9, ICD10: R09.89 (primary diagnosis) - stable symptoms, some dyspnea on exertion but unchanged. No evidence of COPD on prior testing. He has not required inhaled therapy prior. Discussed updating PFT as they have not been done since surgery. He has other medical issues he is currently addressing. He would like to follow-up in a year and have PFT at that time. Encouraged to reach out for a sooner visit if symptoms worsen. - SPIROMETRY WITH DILATOR IF OBSTRUCTED - LUNG VOLUMES - LUNG DIFFUSION CAPACITY (DLCO) 2. Malignant neoplasm of upper lobe of right lung (HCC) - ICD9: 162.3, ICD10: C34.11 - s/p RUL lobectomy 01/2024 - ongoing surveillance with oncology 3. Former cigarette smoker - ICD9: V15.82, ICD10: Z87.891 - continued cessation - see #2 F/u 1 year with PFT Portions of this documentation were copied and pasted from previous office visit notes in order to provide a cohesive continuity of the history. The note has been reviewed and edited and updated as necessary. Gisselle Phelan APRN.CNP I spent a total of 22 minutes on the date of the service which included preparing to see the patient, [id number] patient care, completing clinical documentation, performing a medically appropriate examination, counseling and educating the patient/family/caregiver, and ordering medications, tests, or procedures. documented in this encounter [facility] 03-26-2025 Note HNO ID: [id number] Author: GISSELLE PHELAN APRN.CNP Service: ? Author Type: Nurse Practitioner Type: Progress Notes Filed: 03/26/2025 10:12 Note Text: Pulmonary Medicine Patients name: Sharonda Flores PCP: Tima Tello MD CC: follow-up HPI: Sharonda Flores is a 69 year old male former 37 pack year smoker, quitting in 2010 with PMH significant for CAD s/p stents, s/p CABG 06/2024, PAD, psoriasis, pulmonary nodules, adenocarcinoma of lung s/p RUL lobectomy 01/2024. No chemotherapy or radiation, follows with oncology. BETH 08/2024 with stable symptoms. He presents today for follow-up. Not currently on inhaled therapy. Since his last visit, he reports symptoms remain stable. He continues to have soreness and a firecracker sensation in his ribs if he over exerts himself that has overall improved since his surgery. Reports exertional dyspnea but is unchanged. He had surveillance chest CT on 03/11 with resolution of previous RLL tree-in-bud opacities. No new nodules noted. Continues to follow with cardiology. Today, he denies coughing, wheezing, chest tightness or pain. No recent hospitalizations or ED visits or upper respiratory infections. PAST MEDICAL HISTORY Diagnosis Date Abdominal aortic aneurysm (AAA) without rupture 3 x 3.1 cm 05/2021, repeat 1 year. Benign neoplasm of colon Coronary artery disease involving chilkoot coronary artery of chilkoot heart without angina pectoris Dr. Tineo Essential hypertension Heart attack (HCC) 2012 s/p stents History of tobacco use HLD (hyperlipidemia) Multiple lung nodules on CT 11/09/2023 PET scan ordered PAD (peripheral artery disease) 04/04/2024 Mild to moderate disease LLE on LINH Primary lung adenocarcinoma, right (HCC) RUL,s/p 02/09/24 flexible bronchoscopy, right VATS, right upper lobe wedge resection, cryo nerve block, mediastinal lymph node dissection Psoriasis [facility] S/P lobectomy of lung S/P triple vessel bypass 07/25/2024 Thrombocytopenia Tinnitus of both ears Allergies: Penicillins Hives Medication List Accurate as of March 25, 2025 3:19 PM. If you have any questions, ask your nurse or doctor. CONTINUE taking these medications Aspirin 81 mg Tab atorvastatin 80 mg tablet Commonly known as: LIPITOR Take 1 tablet by mouth daily at bedtime. For cholesterol. clopidogrel 75 mg tablet Commonly known as: PLAVIX COSENTYX (2 SYRINGES) 150 mg/mL injection Generic drug: secukinumab docusate sodium 100 mg capsule Commonly known as: COLACE Take 1 capsule by mouth two times a day as needed for constipation. ezetimibe 10 mg tablet Commonly known as: ZETIA isosorbide mononitrate ER 30 mg 24 hr tablet Commonly known as: IMDUR methocarbamol 1,000 mg tablet Commonly known as: TANLOR peg 3350-Electrolytes 236-22.74-6.74 -5.86 gram suspension Commonly known as: GOLYTELY Refer to printed prep instructions from your provider. polyethylene glycol 3350 17 gram/dose powder Commonly known as: MIRALAX Take 17 g by mouth two times a day. Dissolve dose in 4 - 8 ounces of liquid and take as directed. DATA: I personally reviewed and analyzed all labs, radiographs and available pulmonary function testing PFT: 11/2023 Spirometry did not show obstruction. Lung volumes not valid. The diffusing capacity is normal. CT Chest: 03/11/25 IMPRESSION: 1. Resolution of previously described clustered nodules in the right lower lobe. No new nodules are visualized. 2. No thoracic lymphadenopathy Security Business Analyst: PSCB Transcribe Date/Time: Mar 18 2025 2:48P Dictated by : JOANNA LYONS MD This examination was interpreted and the report reviewed and electronically signed by: JOANNA LYONS MD on Mar 18 2025 2:57PM EST Comparison: CT chest 09/06/2024 RESULT: Limitations: None. Lines, tubes, and devices: None. Lung parenchyma and airways: Postoperative changes from a right upper lobectomy. No consolidation. Resolution of previously described clustered nodules in the right lower lobe. No new suspicious pulmonary nodule. The central airways are patent. Pleural space: No pleural effusion. No pleural thickening. Lower neck, lymph nodes, and mediastinum: The imaged thyroid gland is normal. No lymphadenopathy in the supraclavicular, axillary, mediastinal, or hilar regions. Review of Systems Constitutional: Negative for activity change, appetite change and unexpected weight change. HENT: Negative for congestion. Respiratory: Positive for shortness of breath. Negative for cough, chest tightness and wheezing. Cardiovascular: Negative for chest pain, palpitations and leg swelling. Musculoskeletal: Positive for arthralgias. Neurological: Negative for dizziness and weakness. BP 120/74 Pulse 81 Resp 15 Wt 73.9 kg (163 lb) SpO2 100% BMI 25.88 kg/m? Physical Exam Vitals reviewed. Constitutional: General: He is not in acute distress. Appea (more content not included)... [facility] 03-21-2025 Note HNO ID: [id number] Author: ?, ?, ? Service: ? Author Type: ? Type: Progress Notes Filed: 03/21/2025 09:48 Note Text: REVIEW OF SYSTEMS: General: The patient denies fatigue, denies weight loss, denies weight gain, denies feeling hot, and denies feelings of cold. Eyes: The patient denies glaucoma, denies eye injury/surgery, wears glasses or contacts. Ear/Nose/Throat: The patient denies allergies, denies hayfever, denies ear infections, and denies bloody noses. Cardiovascular: The patient denies chest pain, NOTES heart disease, NOTES high blood pressure,NOTES cardiac stent, denies prior heart attack, denies irregular heart beat, NOTES high cholesterol, denies poor circulation, denies heart failure, other cardiac issues, denies claudication, denies cold feet, denies peripheral arterial stent. Respiratory: The patient denies tuberculosis, denies pneumonia, denies frequent cough, denies pulmonary embolism, denies shortness of breath, and denies coughing up blood. Other Lung problems, Lung Cancer Gastrointestinal: The patient denies difficulty swallowing, denies acid reflux, denies ulcers, denies vomiting, denies jaundice/hepatitis, denies gallbladder problems, denies black or tarry stools, denies hemorrhoids, denies bleeding from rectum, denies diverticulitis, denies constipation, denies diarrhea, denies loss of stool control, and denies hernias. Kidney/Bladder: The patient denies kidney stones, denies urine infections, and denies bloody urine. Skin: The patient denies a history of skin cancer, denies bleeding/changing moles, and NOTES a history of skin rash. Neurologic: The patient denies a history of epilepsy/convulsions, denies headaches, denies head/spinal injuries, and denies stroke/TIA. Psychiatric: The patient denies psychiatric medications, denies depression, and denies voices, denies substance abuse. Endocrine: The patient denies thyroid disorders, denies diabetes, and denies hormonal problems. Hematologic: The patient denies a history of bruising, denies bleeding, and denies anemia, denies blood clots. Infections: The patient denies a history of measles and mumps, denies rheumatic fever, and denies sexually transmitted diseases. Musculoskeletal: The patient denies back pain/injury, denies back problems, denies sciatica, denies knee/foot trouble, denies arthritis, or denies gout. When was patient's last Mammogram screening? N/A Last Colonoscopy: 08-03-[address] [facility] 03-21-2025 History of Presen t illness Narrative REVIEW OF SYSTEMS: General: The patient denies fatigue, denies weight loss, denies weight gain, denies feeling hot, and denies feelings of cold. Eyes: The patient denies glaucoma, denies eye injury/surgery, wears glasses or contacts. Ear/Nose/Throat: The patient denies allergies, denies hayfever, denies ear infections, and denies bloody noses. Cardiovascular: The patient denies chest pain, NOTES heart disease, NOTES high blood pressure,NOTES cardiac stent, denies prior heart attack, denies irregular heart beat, NOTES high cholesterol, denies poor circulation, denies heart failure, other cardiac issues, denies claudication, denies cold feet, denies peripheral arterial stent. Respiratory: The patient denies tuberculosis, denies pneumonia, denies frequent cough, denies pulmonary embolism, denies shortness of breath, and denies coughing up blood. Other Lung problems, Lung Cancer Gastrointestinal: The patient denies difficulty swallowing, denies acid reflux, denies ulcers, denies vomiting, denies jaundice/hepatitis, denies gallbladder problems, denies black or tarry stools, denies hemorrhoids, denies bleeding from rectum, denies diverticulitis, denies constipation, denies diarrhea, denies loss of stool control, and denies hernias. Kidney/Bladder: The patient denies kidney stones, denies urine infections, and denies bloody urine. Skin: The patient denies a history of skin cancer, denies bleeding/changing moles, and NOTES a history of skin rash. Neurologic: The patient denies a history of epilepsy/convulsions, denies headaches, denies head/spinal injuries, and denies stroke/TIA. Psychiatric: The patient denies psychiatric medications, denies depression, and denies voices, denies substance abuse. Endocrine: The patient denies thyroid disorders, denies diabetes, and denies hormonal problems. Hematologic: The patient denies a history of bruising, denies bleeding, and denies anemia, denies blood clots. Infections: The patient denies a history of measles and mumps, denies rheumatic fever, and denies sexually transmitted diseases. Musculoskeletal: The patient denies back pain/injury, denies back problems, denies sciatica, denies knee/foot trouble, denies arthritis, or denies gout. When was patient's last Mammogram screening? N/A Last Colonoscopy: 08-03-2021 [facility] HISTORY AND PHYSICAL Sharonda Flores : 1955 REFERRING PHYSICIAN: Tima Tello [address] [facility] [id number] CHIEF COMPLAINT: Patient presents with: Rectal Problem: blood in stool HPI: Sharonda is a 69 year old male referred for endoscopy. Sharonda notes constipation & melena. Sharonda notes abdominal pain. -relieved with bowel movement Sharonda denies diarrhea. Lutheralejandramingo notes constipation. -chronic, happens one time a month -uses castor oil which causes black stools -no fiber supplements -tried miraLAX once with no relief Sharonda notes melena. -most recent BM described as black and watery Sharonda denies bright red blood per rectum. Sharonda notes occasional hemorrhoids. Sharonda denies family history of colon issues. Sharonda notes heartburn. -if eating too late a night Sharonda denies dysphagia. Sharonda denies a history of ulcers/ peptic ulcer disease. Sharonda notes a lot of nausea after eating Sharonda notes a lot of chronic RUQ pain that has been present since his CABG last year. Hx of CABG (06/2024), [place] s/[place] st[place] (2011), HLD, HTN & AAA- follow with cardiology On plavix He CP, SOB, dizziness, palpitations, syncope, edema, recent hospitalizations Hx of RUL wedge 01/2024 d/t lung cancer. No chemo or radiation. Sharonda has undergone prior endoscopy. Last colonoscopy was 07/[address] Ariza at [facility]. Sedation: Midazolam 5 mg IV, Fentanyl 100 micrograms IV Impression: - Diverticulosis in the sigmoid colon. - Submucosal nodule in the recto-sigmoid colon. Biopsied. - The examination was otherwise normal on direct and retroflexion views. CONVERTED FINAL DIAGNOSIS Colon at 20 cm, biopsy - Hyperplastic polyp. TPP/lk 08/04/2021 Current Outpatient Medications Medication Sig secukinumab (COSENTYX, 2 SYRINGES,) 150 mg/mL injection Inject 300 mg subcutaneously one time a week. docusate sodium (COLACE) 100 mg capsule Take 1 capsule by mouth two times a day as needed for constipation. ezetimibe (ZETIA) 10 mg tablet Take 10 mg by mouth once daily. isosorbide mononitrate ER (IMDUR) 30 mg 24 hr tablet Take 30 mg by mouth once daily. methocarbamol 1,000 mg tablet Take 1,000 mg by mouth four times daily. clopidogrel (PLAVIX) 75 mg tablet Take 75 mg by mouth. atorvastatin (LIPITOR) 80 mg tablet Take 1 tablet by mouth daily at bedtime. For cholesterol. Aspirin 81 mg Tab Take 81 mg by mouth once daily. peg 3350-Electrolytes (GOLYTELY) 236-22.74-6.74 -5.86 gram suspension Refer to printed prep instructions from your provider. polyethylene glycol 3350 (MIRALAX) 17 gram/dose powder Take 17 g by mouth two times a day. Dissolve dose in 4 - 8 ounces of liquid and take as directed. No current facility-administered medications for this visit. ALLERGIES: Penicillins PAST MEDICAL HISTORY Diagnosis Date Abdominal aortic aneurysm (AAA) without rupture 3 x 3.1 cm 05/2021, repeat 1 year. Benign neoplasm of colon Coronary artery disease involving chilkoot coronary artery of chilkoot heart without angina pectoris Dr. Tineo Essential hypertension Heart attack (HCC) 2012 s/p stents History of tobacco use HLD (hyperlipidemia) Multiple lung nodules on CT 11/09/2023 PET scan ordered PAD (peripheral artery disease) 04/04/2024 Mild to moderate disease LLE on LINH Primary lung adenocarcinoma, right (HCC) RUL,s/p 02/09/24 flexible bronchoscopy, right VATS, right upper lobe wedge resection, cryo nerve block, mediastinal lymph node dissection Psoriasis [facility] S/P lobectomy of lung S/P triple vessel bypass 07/25/2024 Thrombocytopenia Tinnitus of both ears PAST SURGICAL HISTORY Procedure Laterality Date COLONOSCOPY FLX DX W/COLLJ SPEC WHEN PFRMD 10/08/2008 Colonoscopy COLONOSCOPY FLX DX W/COLLJ SPEC WHEN PFRMD 08/03/2021 repeat in 10 years EXTRACTION, ERUPTED TOOTH OR EXPOSED ROOT (ELEVATION AND/OR FORCEPS REMOVAL) [facility] HEART CATHETERIZATION 2012 stent x 4 HEART SURGERY HX LUNG SURGERY HX Right 02/09/2024 right VATS Right Upper lobe Lung resection PAST SURGICAL HISTORY OF age 6 appendectomy, no rupture PAST SURGICAL HISTORY OF Right 09/2021 cyst removal from chest wall PAST SURGICAL HISTORY OF 07/25/2024 Triple Bypass PT ED HEART AND VASCULAR 2012 TONSILLECTOMY HX TONSILLECTOMY PRIMARY/SECONDARY <AGE 12 tonsillectomy FAMILY HISTORY Problem Relation Age of Onset Breast Cancer Mother Heart Father details uncertain; ? h/o rheumatic fever Stroke Father details uncertain No Known Problems Brother No Known Problems Daughter No Known Problems Daughter No Known Problems Son No Known Problems Son No Known Problems Maternal Grandmother No Known Problems Maternal Grandfather No Known Problems Paternal Grandmother No Known Problems Paternal Grandfather Diabetes Other none Colon Cancer Other none Prostate Cancer Other none Anesthesia Problems No Family History SOCIAL HISTORY[1] REVIEW OF SYMPTOMS: The review of systems data was entered by the nurse and reviewed by me PHYSICAL EXAMINATION: General: The patient is 69 year old, male well nourished, well hydrated in no acute distress. The patient is oriented to time, place, and person. VITALS: Blood pressure 151/72, pulse 66, resp. rate 14, weight 74.2 kg (163 lb 9.6 oz), SpO2 99%. Body mass index is 25.98 kg/m . HEENT: Normal cephalic, ataumatic, pupils are equally round, sclera are anicteric, mucous membranes are moist, oropharynx is clear. Neck has no masses or asymmetry . Respiratory: Clear to auscultation. Cardiac: Regular rate and rhythm. Abdominal exam: Soft, +very tender at epigastric/RUQ with no palpable masses. No hepatosplenomegaly. No palpable hernias. Extremities: no clubbing or cyanosis LABORATORY VALUES: As Noted RADIOLOGIC STUDIES: As Noted Assessment IMPRESSION: melena, nausea, heart burn, ruq pain, chronic constipation PLAN: I have reviewed my findings with the surgeon. Will plan for upper and lower endoscopy. We discussed the risks and benefits of the planned endoscopy in terms understandable to the patient. I have informed the patient that complications can occur including failure to complete the endoscopy and perforation. Sharonda had the opportunity to ask questions concerning the planned endoscopy. Sharonda freely consents to surgery. RUQ US ordered d/t RUQ tenderness, constipation & post prandial nausea -pt has CT Chest/abd/pelv ordered on 04/11/25 I plan to use Golytely bowel preparation I have explained to the patient the difference between IV conscious sedation and MAC anesthesia - and I have offered either, according to the patient's wishes. I have explained that with IV conscious sedation there is no anesthesia provider available and therefore there is a limitation of the amount of IV medications that can be given and that the patient may wake up in the middle of the procedure and/or experience pain/discomfort during the procedure. Further discussion was done and the patient was given the opportunity to ask questions and all questions were answered. Sharonda chooses IV conscious sedation. Sharonda was counseled that if there are changes in his/her medical condition, to let the office know if surgery should proceed. If there are changes in patient's medical condition from time of this encounter to the day of the procedure that preclude anesthesia, patient may have procedure cancelled for patient's safety. Diagnoses: (R11.0) Nausea (primary encounter diagnosis) (K59.09) Chronic constipation (K92.1) Melena (R12) Heart burn (R10.11) RUQ abdominal pain Consultation requested by Dr. Tello for an opinion regarding melena & constipation. My final recommendations will be communicated back to the requesting physician by way of shared Medical record or letter to requesting physician via US mail. Portions of this documentation were copied and pasted from previous office visit notes in order to provide a cohesive continuity of the history. The note has been reviewed and edited and updated as necessary. Saray Marinelli APRN.CNP [1] Social History Tobacco Use Smoking status: Former Current packs/day: 0.00 Average packs/day: 1.5 packs/day for 25.0 years (37.5 ttl pk-yrs) Types: Cigarettes Start date: 01/24/1986 Quit date: 01/24/2011 Years since quittin.1 Smokeless tobacco: Never Vaping Use Vaping status: Never Used Substance Use Topics Alcohol use: Not Currently Drug use: Yes Types: Marijuana Comment: Twice a month documented in this encounter [facility] 03-21-2025 Note HNO ID: [id number] Author: SARAY MARINELLI APRN.CNP Service: ? Author Type: Nurse Practitioner Type: Progress Notes Filed: 03/21/2025 09:26 Note Text: HISTORY AND PHYSICAL Sharonda Flores : 1955 REFERRING PHYSICIAN: Tima Tello [address] [facility] [address] CHIEF COMPLAINT: Patient presents with: Rectal Problem: blood in stool HPI: Sharonda is a 69 year old male referred for endoscopy. Sharonda notes constipation AND melena. Sharonda notes abdominal pain. -relieved with bowel movement Sharonda denies diarrhea. Sharonda notes constipation. -chronic, happens one time a month -uses castor oil which causes black stools -no fiber supplements -tried miraLAX once with no relief Sharonda notes melena. -most recent BM described as black and watery Sharonda denies bright red blood per rectum. Sharonda notes occasional hemorrhoids. Sharonda denies family history of colon issues. Sharonda notes heartburn. -if eating too late a night Sharonda denies dysphagia. Sharonda denies a history of ulcers/ peptic ulcer disease. Sharonda notes a lot of nausea after eating Sharonda notes a lot of chronic RUQ pain that has been present since his CABG last year. Hx of CABG (06/2024), [place] s/[place]2011), HLD, HTN AND AAA- follow with cardiology On plavix He CP, SOB, dizziness, palpitations, syncope, edema, recent hospitalizations Hx of RUL wedge 01/2024 d/t lung cancer. No chemo or radiation. Sharonda has undergone prior endoscopy. Last colonoscopy was 07/[address] Ariza at [facility]. Sedation: Midazolam 5 mg IV, Fentanyl 100 micrograms IV Impression: - Diverticulosis in the sigmoid colon. - Submucosal nodule in the recto-sigmoid colon. Biopsied. - The examination was otherwise normal on direct and retroflexion views. CONVERTED FINAL DIAGNOSIS Colon at 20 cm, biopsy - Hyperplastic polyp. TPP/lk 08/04/2021 Current Outpatient Medications Medication Sig secukinumab (COSENTYX, 2 SYRINGES,) 150 mg/mL injection Inject 300 mg subcutaneously one time a week. docusate sodium (COLACE) 100 mg capsule Take 1 capsule by mouth two times a day as needed for constipation. ezetimibe (ZETIA) 10 mg tablet Take 10 mg by mouth once daily. isosorbide mononitrate ER (IMDUR) 30 mg 24 hr tablet Take 30 mg by mouth once daily. methocarbamol 1,000 mg tablet Take 1,000 mg by mouth four times daily. clopidogrel (PLAVIX) 75 mg tablet Take 75 mg by mouth. atorvastatin (LIPITOR) 80 mg tablet Take 1 tablet by mouth daily at bedtime. For cholesterol. Aspirin 81 mg Tab Take 81 mg by mouth once daily. peg 3350-Electrolytes (GOLYTELY) 236-22.74-6.74 -5.86 gram suspension Refer to printed prep instructions from your provider. polyethylene glycol 3350 (MIRALAX) 17 gram/dose powder Take 17 g by mouth two times a day. Dissolve dose in 4 - 8 ounces of liquid and take as directed. No current facility-administered medications for this visit. ALLERGIES: Penicillins PAST MEDICAL HISTORY Diagnosis Date Abdominal aortic aneurysm (AAA) without rupture 3 x 3.1 cm 05/2021, repeat 1 year. Benign neoplasm of colon Coronary artery disease involving chilkoot coronary artery of chilkoot heart without angina pectoris Dr. Tineo Essential hypertension Heart attack (HCC) 2012 s/p stents History of tobacco use HLD (hyperlipidemia) Multiple lung nodules on CT 11/09/2023 PET scan ordered PAD (peripheral artery disease) 04/04/2024 Mild to moderate disease LLE on LINH Primary lung adenocarcinoma, right (HCC) RUL,s/p 02/09/24 flexible bronchoscopy, right VATS, right upper lobe wedge resection, cryo nerve block, mediastinal lymph node dissection Psoriasis [facility] S/P lobectomy of lung S/P triple vessel bypass 07/25/2024 Thrombocytopenia Tinnitus of both ears PAST SURGICAL HISTORY Procedure Laterality Date COLONOSCOPY FLX DX W/COLLJ SPEC WHEN PFRMD 10/08/2008 Colonoscopy COLONOSCOPY FLX DX W/COLLJ SPEC WHEN PFRMD 08/03/2021 repeat in 10 years EXTRACTION, ERUPTED TOOTH OR EXPOSED ROOT (ELEVATION AND/OR FORCEPS REMOVAL) [facility] HEART CATHETERIZATION 2012 stent x 4 HEART SURGERY HX LUNG SURGERY HX Right 02/09/2024 right VATS Right Upper lobe Lung resection PAST SURGICAL HISTORY OF age 6 appendectomy, no rupture PAST SURGICAL HISTORY OF Right 09/2021 cyst removal from chest wall PAST SURGICAL HISTORY OF 07/25/2024 Triple Bypass PT ED HEART AND VASCULAR 2012 TONSILLECTOMY HX TONSILLECTOMY PRIMARY/SECONDARY tonsillectomy FAMILY HISTORY Problem Relation Age of Onset Breast Cancer Mother Heart Father details uncertain; ? h/o rheumatic fever Stroke Father details uncertain No Known Problems Brother No Known Problems Daughter No Known Problems Daughter No Known Problems Son No Known Problems Son No Known Problems Maternal Grandmother No Known Problems Maternal Grandfather No Known Problems Paternal Grandmother (more content not included)... [facility] 03-20-2025 Telephone encounter Note Spoke with patient and he verbalized understanding. States he takes both an 81 mg baby aspirin and Plavix. Tess Dobson MA [facility] 03-20-2025 Miscellaneous Notes Spoke with patient and he verbalized understanding. States he takes both an 81 mg baby aspirin and Plavix. Tess Dobson MA ----- Message from Tima Tello MD sent at 03/20/2025 11:06 AM EDT ----- FOBT is positive for blood in his stool. Needs OV with general surgery RAQUEL for EGD and colonoscopy. His last appointment with cardiology, they noted he was on ASA and should be on it life long. Is he taking plavix as well? ----- Message ----- From: Lab, Background User Sent: 03/20/2025 11:03 AM EDT To: Tima Tello MD Patient informed and verbalized understanding. Tess Dobson MA ----- Message from Tima Tello MD sent at 03/20/2025 9:41 AM EDT ----- Normal labs aside from low platelets which are chronic and stable. Awaiting FOBT results and CT scan. Continue treatment as discussed in office. ----- Message ----- From: Lab, Background User Sent: 03/19/2025 2:56 PM EDT To: Tima Tello MD documented in this encounter [facility] 03-20-2025 Telephone encounter Note ----- Message from Tima Tello MD sent at 03/20/2025 11:06 AM EDT ----- FOBT is positive for blood in his stool. Needs OV with general surgery RAQUEL for EGD and colonoscopy. His last appointment with cardiology, they noted he was on ASA and should be on it life long. Is he taking plavix as well? ----- Message ----- From: Lab, Background User Sent: 03/20/2025 11:03 AM EDT To: Tima Tello MD [facility] 03-20-2025 Telephone encounter Note Patient informed and verbalized understanding. Tess Dobson MA [facility] 03-20-2025 Telephone encounter Note ----- Message from Tima Tello MD sent at 03/20/2025 9:41 AM EDT ----- Normal labs aside from low platelets which are chronic and stable. Awaiting FOBT results and CT scan. Continue treatment as discussed in office. ----- Message ----- From: Lab, Background User Sent: 03/19/2025 2:56 PM EDT To: Tima Tello MD [facility] 03-19-2025 Telephone encounter Note Spoke w pt and this is scheduled as directed. (Order was linked to an another CT ordered by Lyndsey) Rhonda Arroyo [facility] 03-19-2025 Miscellaneous Notes Spoke w pt and this is scheduled as directed. (Order was linked to an another CT ordered by Lyndsey) Rhonda Arroyo Please schedule CT chest and serum creatinine in 6 mo followed by OV one week later. Orders for CT are signed under this encounter. They were signed when this was previously sent to me. We dont show these orders yet for ct or labs. Rhonda Arroyo Thank you. Order filed. Pt notified and voices understanding. Please schedule CT chest and serum creatinine in 6 mo followed by OV one week later. CT pended. Cathi Barfield LPN Let him know CT chest showed no sign of lung cancer. Please schedule for serum Cr CT chest with contrast followed by office visit about a week later in about 6 months. Analy Dumont DO documented in this encounter [facility] 03-19-2025 Telephone encounter Note Please schedule CT chest and serum creatinine in 6 mo followed by OV one week later. [facility] 03-19-2025 Telephone encounter Note Orders for CT are signed under this encounter. They were signed when this was previously sent to me. [facility] 03-19-2025 Telephone encounter Note We dont show these orders yet for ct or labs. Rhonda Arroyo [facility] 03-19-2025 Instructions Tima Tello MD - 03/19/2025 7:52 AM EDT - Begin Miralax twice daily and Colace twice daily until you re having 1-2 soft bowel movements each day; if you develop diarrhea, reduce the doses and then take them as needed when constipation returns - Take a fiber supplement (for example, Benefiber or Metamucil) and drink at least 64 ounces of water daily to help keep your stools regular - Complete blood tests today to check for anemia, electrolyte balance, and kidney and liver function - Use the stool kit provided to collect a sample for testing of blood in your stool - Schedule a CT scan of your abdomen and pelvis within the next few days to evaluate ongoing abdominal pain and stool buildup - See a general surgeon for evaluation and to arrange an upper endoscopy and colonoscopy to look for any bleeding sources or lesions - Go to the emergency department if you develop severe abdominal pain, persistent nausea or vomiting, inability to keep food down, bright red blood in your stool, shortness of breath, lightheadedness, dizziness, or extreme fatigue - Return in about one month to review your test results and address your other chronic health issues documented in this encounter [facility] 03-19-2025 Note HNO ID: [id number] Author: TIMA TELLO MD Service: ? Author Type: Physician Type: Progress Notes Filed: 03/19/2025 08:06 Note Text: Chief Complaint Patient presents with: Constipation Rectal Problem Recording using Purple software for draft documentation of the visit was discussed with the patient/authorized sales representative electric service; all questions welcomed and answered. Patient/authorized sales representative electric service agreed to proceed HPI Sharonda Flores is a 69 year old male who presents here today for Above Complaints. Chronic Constipation and Black Stools: - Chronic constipation x1 year, with episodes occurring approximately once a month. - Episodes last about two days, during which Sharonda experiences significant straining. - Reports going up to three weeks without a bowel movement during severe episodes. - Uses castor oil to induce bowel movements, resulting in dark, black stools. - Recent bowel movements described as watery and dark. - Denies hematochezia, nausea, emesis, or pain with bowel movements. - Denies SOB, lightheadedness, or dizziness. - Nocturnal regurgitation if eating past a certain time. - No recent weight loss or night sweats. - Tried Miralax once with no relief; denies using fiber supplements. Lung Cancer: - Followed by Dr. Dumont. - Recent CT chest showed no signs of lung cancer; next follow-up in 6 months. CAD: - Underwent CABG last year. - Reports that pain medication post-surgery contributed to constipation. Past medical history, appointments, medications, allergies reviewed. Previous Medical History PAST MEDICAL HISTORY Diagnosis Date Abdominal aortic aneurysm (AAA) without rupture 3 x 3.1 cm 05/2021, repeat 1 year. Benign neoplasm of colon Coronary artery disease involving chilkoot coronary artery of chilkoot heart without angina pectoris Dr. Tineo Essential hypertension Heart attack (HCC) 2011 s/p stents History of tobacco use HLD (hyperlipidemia) Multiple lung nodules on CT 11/09/2023 PET scan ordered PAD (peripheral artery disease) 04/04/2024 Mild to moderate disease LLE on LINH Primary lung adenocarcinoma, right (HCC) RUL,s/p 02/09/24 flexible bronchoscopy, right VATS, right upper lobe wedge resection, cryo nerve block, mediastinal lymph node dissection Psoriasis [facility] S/P lobectomy of lung S/P triple vessel bypass 07/25/2024 Thrombocytopenia Tinnitus of both ears Previous Surgical History PAST SURGICAL HISTORY Procedure Laterality Date COLONOSCOPY FLX DX W/COLLJ SPEC WHEN PFRMD 10/08/2008 Colonoscopy COLONOSCOPY FLX DX W/COLLJ SPEC WHEN PFRMD 08/03/2021 repeat in 10 years EXTRACTION, ERUPTED TOOTH OR EXPOSED ROOT (ELEVATION AND/OR FORCEPS REMOVAL) [facility] HEART CATHETERIZATION 2012 stent x 4 HEART SURGERY HX LUNG SURGERY HX Right 02/09/2024 right VATS Right Upper lobe Lung resection PAST SURGICAL HISTORY OF age 6 appendectomy, no rupture PAST SURGICAL HISTORY OF Right 09/2021 cyst removal from chest wall PAST SURGICAL HISTORY OF 07/25/2024 Triple Bypass PT ED HEART AND VASCULAR 2012 TONSILLECTOMY HX TONSILLECTOMY PRIMARY/SECONDARY tonsillectomy Family History FAMILY HISTORY Problem Relation Age of Onset Breast Cancer Mother Heart Father details uncertain; ? h/o rheumatic fever Stroke Father details uncertain No Known Problems Brother No Known Problems Daughter No Known Problems Daughter No Known Problems Son No Known Problems Son No Known Problems Maternal Grandmother No Known Problems Maternal Grandfather No Known Problems Paternal Grandmother No Known Problems Paternal Grandfather Diabetes Other none Colon Cancer Other none Prostate Cancer Other none Anesthesia Problems No Family History Patient Allergies ALLERGIES Allergen Reactions Penicillins Hives Current Medications Current Outpatient Medications on File Prior to Visit Medication Sig secukinumab (COSENTYX, 2 SYRINGES,) 150 mg/mL injection Inject 300 mg subcutaneously one time a week. iv contrast (will be provided with radiology test) CT Chest W -Inject, intravenously, once for 1 dose.No IV access, insert saline lock prior to the beginning of sedation, infusion, injection of imaging exam. Discontinue saline lock post exam. If Pt. has a central line or IVAD, may access for administration according to line specific nursing protocol. Once exam is complete flush line and de-access according to line specific nursing protocol in theCT contrast administration guidelines link. ezetimibe (ZETIA) 10 mg tablet Take 10 mg by mouth once daily. isosorbide mononitrate ER (IMDUR) 30 mg 24 hr tablet Take 30 mg by mouth once daily. methocarbamol 1,000 mg tablet Take 1,000 mg by mouth four times daily. clopidogrel (PLAVIX) 75 mg tablet Take 75 mg by mouth. atorvastatin (LIPITOR) 80 mg tablet Take 1 tablet by mouth daily at bedtime. For cholesterol. Aspirin 81 mg Tab Take (more content not included)... [facility] 03-19-2025 History of Presen t illness Narrative Chief Complaint Patient presents with: Constipation Rectal Problem Recording using Purple software for draft documentation of the visit was discussed with the patient/authorized sales representative electric service; all questions welcomed and answered. Patient/authorized sales representative electric service agreed to proceed HPI Sharonda Flores is a 69 year old male who presents here today for Above Complaints. Chronic Constipation and Black Stools: - Chronic constipation x1 year, with episodes occurring approximately once a month. - Episodes last about two days, during which Sharonda experiences significant straining. - Reports going up to three weeks without a bowel movement during severe episodes. - Uses castor oil to induce bowel movements, resulting in dark, black stools. - Recent bowel movements described as watery and dark. - Denies hematochezia, nausea, emesis, or pain with bowel movements. - Denies SOB, lightheadedness, or dizziness. - Nocturnal regurgitation if eating past a certain time. - No recent weight loss or night sweats. - Tried Miralax once with no relief; denies using fiber supplements. Lung Cancer: - Followed by Dr. Dumont. - Recent CT chest showed no signs of lung cancer; next follow-up in 6 months. CAD: - Underwent CABG last year. - Reports that pain medication post-surgery contributed to constipation. Past medical history, appointments, medications, allergies reviewed. Previous Medical History PAST MEDICAL HISTORY Diagnosis Date Abdominal aortic aneurysm (AAA) without rupture 3 x 3.1 cm 05/2021, repeat 1 year. Benign neoplasm of colon Coronary artery disease involving chilkoot coronary artery of chilkoot heart without angina pectoris Dr. Tineo Essential hypertension Heart attack (HCC) 2011 s/p stents History of tobacco use HLD (hyperlipidemia) Multiple lung nodules on CT 11/09/2023 PET scan ordered PAD (peripheral artery disease) 04/04/2024 Mild to moderate disease LLE on LINH Primary lung adenocarcinoma, right (HCC) RUL,s/p 02/09/24 flexible bronchoscopy, right VATS, right upper lobe wedge resection, cryo nerve block, mediastinal lymph node dissection Psoriasis [facility] S/P lobectomy of lung S/P triple vessel bypass 07/25/2024 Thrombocytopenia Tinnitus of both ears Previous Surgical History PAST SURGICAL HISTORY Procedure Laterality Date COLONOSCOPY FLX DX W/COLLJ SPEC WHEN PFRMD 10/08/2008 Colonoscopy COLONOSCOPY FLX DX W/COLLJ SPEC WHEN PFRMD 08/03/2021 repeat in 10 years EXTRACTION, ERUPTED TOOTH OR EXPOSED ROOT (ELEVATION AND/OR FORCEPS REMOVAL) wisdom HEART CATHETERIZATION 2012 stent x 4 HEART SURGERY HX LUNG SURGERY HX Right 02/09/2024 right VATS Right Upper lobe Lung resection PAST SURGICAL HISTORY OF age 6 appendectomy, no rupture PAST SURGICAL HISTORY OF Right 09/2021 cyst removal from chest wall PAST SURGICAL HISTORY OF 07/25/2024 Triple Bypass PT [facility] 2012 TONSILLECTOMY HX TONSILLECTOMY PRIMARY/SECONDARY <AGE 12 tonsillectomy Family History FAMILY HISTORY Problem Relation Age of Onset Breast Cancer Mother Heart Father details uncertain; ? h/o rheumatic fever Stroke Father details uncertain No Known Problems Brother No Known Problems Daughter No Known Problems Daughter No Known Problems Son No Known Problems Son No Known Problems Maternal Grandmother No Known Problems Maternal Grandfather No Known Problems Paternal Grandmother No Known Problems Paternal Grandfather Diabetes Other none Colon Cancer Other none Prostate Cancer Other none Anesthesia Problems No Family History Patient Allergies ALLERGIES Allergen Reactions Penicillins Hives Current Medications Current Outpatient Medications on File Prior to Visit Medication Sig secukinumab (COSENTYX, 2 SYRINGES,) 150 mg/mL injection Inject 300 mg subcutaneously one time a week. iv contrast (will be provided with radiology test) CT Chest W -Inject, intravenously, once for 1 dose.No IV access, insert saline lock prior to the beginning of sedation, infusion, injection of imaging exam. Discontinue saline lock post exam. If Pt. has a central line or IVAD, may access for administration according to line specific nursing protocol. Once exam is complete flush line and de-access according to line specific nursing protocol in theLA contrast administration guidelines link. ezetimibe (ZETIA) 10 mg tablet Take 10 mg by mouth once daily. isosorbide mononitrate ER (IMDUR) 30 mg 24 hr tablet Take 30 mg by mouth once daily. methocarbamol 1,000 mg tablet Take 1,000 mg by mouth four times daily. clopidogrel (PLAVIX) 75 mg tablet Take 75 mg by mouth. atorvastatin (LIPITOR) 80 mg tablet Take 1 tablet by mouth daily at bedtime. For cholesterol. Aspirin 81 mg Tab Take 81 mg by mouth once daily. No current facility-administered medications on file prior to visit. Social History SOCIAL HISTORY[1] Review of Symptoms REVIEW OF SYSTEMS See HPI EXAM: BP 116/68 Pulse 73 Ht 169 cm (5' 6.54) Wt 72 kg (158 lb 12.8 oz) SpO2 98% BMI 25.22 kg/m General Appearance: Well appearing, alert, in no acute distress, well-hydrated, well nourished.. Skin: Skin color, texture, turgor normal, no suspicious rashes or lesions. Lungs: Lungs clear to auscultation. No wheezing, rhonchi, rales.. Heart: RRR without murmur, gallop, or rubs. No ectopy. Abdomen: Abdomen soft, non-tender. Bowel sounds normal. No masses, organomegaly, Negative CVA tenderness, Positive findings: tenderness moderate generalized with guarding without rebound. Health Maintenance List DTaP,Tdap,Td Vaccine(1 - Tdap) Never done Shingrix Vaccine(1 of 2) Never done Pneumococcal Vaccine: 50+(1 of 2 - PCV) Never done RSV Vaccine(1 - Risk 60-74 years 1-dose series) Never done Advance Directive Discussion due on 07/31/2024 Depression Screening due on 12/07/2024 Anxiety Screening due on 12/07/2024 Medicare Annual Wellness Visit due on 12/07/2024 Influenza Vaccine(1) due on 03/31/2025 LDL Cholesterol due on 09/02/2025 Annual PCP Team Chronic Disease Visit due on 03/19/2026 Diabetes Screening due on 07/31/2027 Lipid Screening due on 09/02/2029 Colorectal Cancer Screening due on 08/03/2031 Abdominal Aortic Aneurysm Screening Completed Hepatitis C Screening Completed Data reviewed Latest Ref Rng 09/02/2024 03/11/2025 Cholesterol, Total <200 mg/dL 148 Triglyceride <150 mg/dL 182 (H) HDL Cholesterol >39 mg/dL 28 (L) Non HDL Cholesterol <130 mg/dL 120 Fasting Time hrs 24 VLDL Cholesterol <30 mg/dL 36 (H) TC:HDL Ratio <5.10 5.29 (H) LDL Cholesterol, Calculated <100 mg/dL 84 LDL:HDL Ratio <2.54 3.00 (H) Creatinine 0.73 - 1.22 mg/dL 1.04 eGFR >=60 mL/min/1.73m 78 Legend: (H) High (L) Low 1. Chronic constipation (K59.09) 2. Melena (K92.1) 3. Generalized abdominal pain (R10.84) - Chronic constipation with intermittent episodes of melena and generalized abdominal pain for over a year; abdominal tenderness noted on exam. - Order CBC, electrolytes, kidney and liver function tests. - Order CT abdomen and pelvis to evaluate for underlying pathology. - Provide stool kit to test for occult blood. - Start Miralax BID and Colace BID until 1-2 soft bowel movements per day achieved; reduce if diarrhea develops. - Recommend fiber supplement (Benefiber or Metamucil) and increase water intake to at least 64 oz daily. - Refer to general surgery for evaluation and consideration of upper endoscopy and colonoscopy. - Educated patient on signs and symptoms warranting ER visit: severe abdominal pain, nausea/vomiting with inability to tolerate oral intake, hematochezia, shortness of breath, lightheadedness, dizziness, or severe fatigue. - Follow-up in 1 month to review results and address other chronic issues. Tima Tello MD [1] Social History Tobacco Use Smoking status: Former Current packs/day: 0.00 Average packs/day: 1.5 packs/day for 25.0 years (37.5 ttl pk-yrs) Types: Cigarettes Start date: 01/24/1986 Quit date: 01/24/2011 Years since quittin.1 Smokeless tobacco: Never Vaping Use Vaping status: Never Used Substance Use Topics Alcohol use: Not Currently Drug use: Yes Types: Marijuana Comment: Twice a month documented in this encounter [facility] 03-18-2025 Telephone encounter Note Thank you. Order filed. [facility] 03-18-2025 Telephone encounter Note Pt notified and voices understanding. Please schedule CT chest and serum creatinine in 6 mo followed by OV one week later. CT pended. Cathi Barfield LPN [facility] 03-18-2025 Telephone encounter Note Let him know CT chest showed no sign of lung cancer. Please schedule for serum Cr CT chest with contrast followed by office visit about a week later in about 6 months. Analy Dumont DO [facility] 03-18-2025 Note HNO ID: [id number] Author: CHAD DAVIES MA Service: ? Author Type: Cage Supervisor Type: Progress Notes Filed: 03/18/2025 13:22 Note Text: POPULATION HEALTH NAVIGATION OUTREACH Action/FYI Spoke to Sharonda Rescheduled appointment for 03-19-25 Topic Due (Y or N) Comments Medicare Wellness y Never done PCP Follow up y Colorectal Cancer Screening Controlling Blood Pressure A1C HCC Flu Vaccine Care Everywhere Reviewed MyChart Activation Updated Appointment Note Reason for Outreach Care Gap/HCC or Scheduling Wellness Visits Care Gaps due: Follow-up Appointment Patient Contacted: Spoke to patient/parent/or legal guardian Patient identified by name and : Yes Care Gap/HCC/Scheduling Wellness actions taken: Patient scheduled/pended orders: [facility] F[facility]U [facility]LY [facility]UM[facility] OV Navigation Signature: Chad Davies MA March 18, 2025 1:[address] [facility] 03-18-2025 History of Presen t illness Narrative POPULATION HEALTH NAVIGATION OUTREACH Action/FYI Spoke to Sharonda Rescheduled appointment for 03-19-25 Topic Due (Y or N) Comments Medicare Wellness y Never done PCP Follow up y Colorectal Cancer Screening Controlling Blood Pressure A1C HCC Flu Vaccine Care Everywhere Reviewed MyChart Activation Updated Appointment Note Reason for Outreach Care Gap/HCC or Scheduling Wellness Visits Care Gaps due: Follow-up Appointment Patient Contacted: Spoke to patient/parent/or legal guardian Patient identified by name and : Yes Care Gap/HCC/Scheduling Wellness actions taken: Patient scheduled/pended orders: Follow-up App[facility]ment [facility] FO[facility] G[facility]SEL[facility] PHEL[facility]TH F/U [facility] - OV Navigation Signature: Chad Davies MA March 18, 2025 1:20 PM POPULATION HEALTH NAVIGATION OUTREACH Action/FYI LVM POPULATION HEALTH NAVIGATION OUTREACH Topic Due (Y or N) Comments Medicare Wellness Y NEVER DONE PCP Follow up Y Colorectal Cancer Screening Controlling Blood Pressure A1C HCC Flu Vaccine Care Everywhere Reviewed MyChart Activation Updated Appointment Note Reason for Outreach Care Gap/HCC or Scheduling Wellness Visits Care Gaps due: Medicare Annual Wellness Visit Follow-up Appointment Patient Contacted: Unable or unnecessary to reach patient: Left message Navigation Signature: Chad Davies MA March 18, 2025 1:00 PM POPULATION HEALTH NAVIGATION OUTREACH Action/FYI LVRamya MYCHART MESSAGE SENT Topic Due (Y or N) Comments Medicare Wellness Y NEVER DONE PCP Follow up y Reschedule appt 03-17-25 Colorectal Cancer Screening Controlling Blood Pressure A1C HCC Flu Vaccine Care Everywhere Reviewed MyChart Activation Updated Appointment Note Reason for Outreach Care Gap/HCC or Scheduling Wellness Visits Care Gaps due: Medicare Annual Wellness Visit Follow-up Appointment Patient Contacted: Unable or unnecessary to reach patient: Left message Tinkercadhart message sent Navigation Signature: Chad Davies MA March 18, 2025 8:22 AM documented in this encounter [facility] 03-18-2025 Note HNO ID: [id number] Author: CHAD DAVIES MA Service: ? Author Type: Cage Supervisor Type: Progress Notes Filed: 03/18/2025 13:20 Note Text: POPULATION HEALTH NAVIGATION OUTREACH Action/FYI LVM POPULATION HEALTH NAVIGATION OUTREACH Topic Due (Y or N) Comments Medicare Wellness Y NEVER DONE PCP Follow up Y Colorectal Cancer Screening Controlling Blood Pressure A1C HCC Flu Vaccine Care Everywhere Reviewed MyChart Activation Updated Appointment Note Reason for Outreach Care Gap/HCC or Scheduling Wellness Visits Care Gaps due: Medicare Annual Wellness Visit Follow-up Appointment Patient Contacted: Unable or unnecessary to reach patient: Left message Navigation Signature: Chad Davies MA March 18, 2025 1:[address] [facility] 03-18-2025 Note HNO ID: [id number] Author: CHAD DAVIES MA Service: ? Author Type: Cage Supervisor Type: Progress Notes Filed: 03/18/2025 10:07 Note Text: POPULATION HEALTH NAVIGATION OUTREACH Action/FYI LVM MYCHART MESSAGE SENT Topic Due (Y or N) Comments Medicare Wellness Y NEVER DONE PCP Follow up y Reschedule appt 03-17-25 Colorectal Cancer Screening Controlling Blood Pressure A1C HCC Flu Vaccine Care Everywhere Reviewed MyChart Activation Updated Appointment Note Reason for Outreach Care Gap/HCC or Scheduling Wellness Visits Care Gaps due: Medicare Annual Wellness Visit Follow-up Appointment Patient Contacted: Unable or unnecessary to reach patient: Left message MyChart message sent Navigation Signature: Chad Daveis MA March 18, 2025 8:[address] [facility] 03-18-2025 Note Patient Outreach (RILEY TNAV) SHARONDA FLORES ([id number]) 1955 M [facility] Date Time Provider Department 03/18/25 CHAD DAVIES During your visit today, we recorded the following information about you: Chad Davies MA 03/18/2025 10:07 AM Signed POPULATION HEALTH NAVIGATION OUTREACH Action/I LVM MYCHART MESSAGE SENT Topic Due (Y or N) Comments Medicare Wellness Y NEVER DONE PCP Follow up y Reschedule appt 03-17-25 Colorectal Cancer Screening Controlling Blood Pressure A1C HCC Flu Vaccine Care Everywhere Reviewed MyChart Activation Updated Appointment Note Reason for Outreach Care Gap/HCC or Scheduling Wellness Visits Care Gaps due: Medicare Annual Wellness Visit Follow-up Appointment Patient Contacted: Unable or unnecessary to reach patient: Left message MyChart message sent Navigation Signature: Chad Davies MA March 18, 2025 8:22 AM Chad Davies MA 03/18/2025 1:20 PM Addendum POPULATION HEALTH NAVIGATION OUTREACH Action/FYI LVM POPULATION HEALTH NAVIGATION OUTREACH Topic Due (Y or N) Comments Medicare Wellness Y NEVER DONE PCP Follow up Y Colorectal Cancer Screening Controlling Blood Pressure A1C HCC Flu Vaccine Care Everywhere Reviewed MyChart Activation Updated Appointment Note Reason for Outreach Care Gap/HCC or Scheduling Wellness Visits Care Gaps due: Medicare Annual Wellness Visit Follow-up Appointment Patient Contacted: Unable or unnecessary to reach patient: Left message Navigation Signature: Chad Davies MA March 18, 2025 1:00 PM Chad Davies MA 03/18/2025 1:22 PM Signed POPULATION HEALTH NAVIGATION OUTREACH Action/FYI Spoke to [facility] appointment for 03-19-25 Topic Due (Y or N) Comments Medicare Wellness y Never done PCP Follow up y Colorectal Cancer Screening Controlling Blood Pressure A1C HCC Flu Vaccine Care Everywhere Reviewed MyChart Activation Updated Appointment Note Reason for Outreach Care Gap/HCC or Scheduling Wellness Visits Care Gaps due: Follow-up Appointment Patient Contacted: Spoke to patient/parent/or legal guardian Patient identified by name and : Yes Care Gap/HCC/Scheduling Wellness actions taken: Patient scheduled/pended orders: Follow-up Appointment 03/19/2025 in [facility] with TIMA TELLO - FOLLOW UP 03/26/2025 in [facility] with GISSELLE PHELAN - 6 [facility] F/U 04/09/2025 in [facility] with ANALY DUMONT - OV Navigation Signature: Chad Davies MA March 18, 2025 1:20 PM Allergies As of Date: 03/18/2025 Noted Allergy Reaction PENICILLINS 05/23/2008 4 - Hives Date Reviewed: 03/17/2025 Reviewed by: Hugo Botello MA - Fully Assessed Reason for Visit: Population Health Navigation Outreach [3910] Cmt: RAMU MAHARAJ PCSA Prescriptions as of 03/18/2025 - ezetimibe (ZETIA) 10 mg tablet Take 10 mg by mouth once daily. - isosorbide mononitrate ER (IMDUR) 30 mg 24 hr tablet Take 30 mg by mouth once daily. - methocarbamol 1,000 mg tablet Take 1,000 mg by mouth four times daily. - clopidogrel (PLAVIX) 75 mg tablet Take 75 mg by mouth. - atorvastatin (LIPITOR) 80 mg tablet Take 1 tablet by mouth daily at bedtime. For cholesterol. - Aspirin 81 mg Tab Take 81 mg by mouth once daily. Problem List As Of Date 03/18/2025 Noted Resolved PERS HX PENICILLIN ALLERGY [Z88.0] 06/03/2008 Class: Chronic TOBACCO USE DISORDER [F17.200] 06/03/2008 SPRAIN SHOULDER/ARM NOS [[id number]] 06/03/2008 JOINT PAIN-ANKLE [M25.579] 06/03/2008 HERPES SIMPLEX NOS [B00.9] 06/03/2008 MIXED HYPERLIPIDEMIA [E78.2] 07/02/2008 SCREENING MAL NEOP-COLON [Z12.11] 10/08/2008 BENIGN NEOPLASM LG BOWEL [D12.6] 10/08/2008 Coronary artery disease involving chilkoot lacey* Essential hypertension [I10] Thrombocytopenia (HCC) [D69.6] Tinnitus of both ears [H93.13] Psoriasis [L40.9] Abdominal aortic aneurysm (AAA) without rupture*06/08/2021 At risk for sleep apnea [Z91.89] 11/29/[address] on CT [R91.8] 11/09/2023 Lung nodule [R91.1] 12/15/2023 S/P lobectomy of lung [Z90.2] 02/09/2024 Primary lung adenocarcinoma, right (HCC) [C34.9*03/11/2024 Encounter Status:Closed by CHAD DAVIES on 03/18/25 [facility] 03-17-2025 History of Presen t illness Narrative Patient left without being seen. Analy Dumont DO documented in this encounter [facility] 03-17-2025 Note HNO ID: [id number] Author: ANALY DUMONT DO Service: ? Author Type: Physician Type: Progress Notes Filed: 03/17/2025 08:34 Note Text: Patient left without being seen. Analy Dumont DO [facility] 03-11-2025 History of Presen t illness Narrative Radiology Service Progress Note DATE OF SERVICE: March 11, 2025 TIME: 1:46 PM PATIENT IDENTITY VERIFICATION COMPLETED USING TWO (2) STANDARD IDENTIFIERS: Name and Date of confirmed by patient verbally. FALL SCREENING: Has the patient had 2 falls in the last year or 1 fall with injury or currently using an Ambulatory Assistive Device (Walker, Cane, Wheelchair, Crutches, etc.)? No PATIENT GENDER DATA: Assigned male at PATIENT RELEVANT IMPLANT DATA REVIEWED: Yes PATIENT PRESENTS WITH AN IMPLANTABLE OR ATTACHED FIREFIGHTER: No ALLERGIES: Reviewed and unchanged CONTRAST ALLERGY: NO. EXAM: CT -CONTRAST INDUCED NEPHROPATHY RISK FACTORS: Patient age > 60 years CREATININE: Creatinine Date Value Ref Range Status 03/11/2025 1.04 0.73 - 1.22 mg/dL Final 06/28/2024 0.97 0.73 - 1.22 mg/dL Final 02/10/2024 1.01 0.73 - 1.22 mg/dL Final Estimated Glomerular Filtration Rate Date Value Ref Range Status 03/11/2025 78 >=60 mL/min/1.73m Final Comment: Estimated Glomerular Filtration Rate (eGFR) is calculated using the 2020 CKD-EPI creatinine equation. This equation utilizes serum creatinine, sex, and age as parameters. The creatinine assay has traceable calibration to isotope dilution-mass spectrometry. Refer to KDIGO guidelines for clinical interpretation. In patients with unstable renal function, e.g. those with acute kidney injury, the eGFR may not accurately reflect actual GFR. eGFR- Date Value Ref Range Status 12/07/2020 >60 Final P.O.C.T. RESULTS: POC done: Yes, See Lab Tab March 11, 2025 TREATMENT: N/A PERIPHERAL IV DATA: Ambulatory: A peripheral IV was started in the Left antecubital site with a Angio cath: 22 gauge. RADIOLOGY DEPARTMENT: CT; Exam(s) Completed: Chest SIGNATURE: RT Lashawn(R) PATIENT NAME: Sharonda Flores DATE: March 11, 2025 TIME: 1:46 PM documented in this encounter [facility] 03-11-2025 Note HNO ID: [id number] Author: KYA RAMIREZ RT(R) Service: ? Author Type: Certified Diabetes Educator Type: Progress Notes Filed: 03/11/2025 13:46 Note Text: Radiology Service Progress Note DATE OF SERVICE: March 11, 2025 TIME: 1:46 PM PATIENT IDENTITY VERIFICATION COMPLETED USING TWO (2) STANDARD IDENTIFIERS: Name and Date of confirmed by patient verbally. FALL SCREENING: Has the patient had 2 falls in the last year or 1 fall with injury or currently using an Ambulatory Assistive Device (Walker, Cane, Wheelchair, Crutches, etc.)? No PATIENT GENDER DATA: Assigned male at PATIENT RELEVANT IMPLANT DATA REVIEWED: Yes PATIENT PRESENTS WITH AN IMPLANTABLE OR ATTACHED FIREFIGHTER: No ALLERGIES: Reviewed and unchanged CONTRAST ALLERGY: NO. EXAM: CT -CONTRAST INDUCED NEPHROPATHY RISK FACTORS: Patient age > 60 years CREATININE: Creatinine Date Value Ref Range Status 03/11/2025 1.04 0.73 - 1.22 mg/dL Final 06/28/2024 0.97 0.73 - 1.22 mg/dL Final 02/10/2024 1.01 0.73 - 1.22 mg/dL Final Estimated Glomerular Filtration Rate Date Value Ref Range Status 03/11/2025 78 >=60 mL/min/1.73m? Final Comment: Estimated Glomerular Filtration Rate (eGFR) is calculated using the 2020 CKD-EPI creatinine equation. This equation utilizes serum creatinine, sex, and age as parameters. The creatinine assay has traceable calibration to isotope dilution-mass spectrometry. Refer to KDIGO guidelines for clinical interpretation. In patients with unstable renal function, e.g. those with acute kidney injury, the eGFR may not accurately reflect actual GFR. eGFR- Date Value Ref Range Status 12/07/2020 >60 Final P.O.C.T. RESULTS: POC done: Yes, See Lab Tab March 11, 2025 TREATMENT: N/A PERIPHERAL IV DATA: Ambulatory: A peripheral IV was started in the Left antecubital site with a Angio cath: 22 gauge. RADIOLOGY DEPARTMENT: CT; Exam(s) Completed: Chest SIGNATURE: RT Lashawn(R) PATIENT NAME: Sharonda Flores DATE: March 11, 2025 TIME: 1:[address] [facility] 11-13-2024 History of Presen t illness Narrative Images from the original note were not included. [facility] CARDIOLOGY - [place] [address] [facility] [id number] Dept: [phone] Dept Visit type: Established : 1955 Reason for Visit: Annual Exam Assessment and Plan 1. Coronary artery disease involving chilkoot coronary artery of chilkoot heart without angina pectoris 2. Mixed hyperlipidemia - ECG 12 lead - CLINIC PERFORMED 3. Essential hypertension 4. S/P CABG (coronary artery bypass graft) This is a very pleasant 68 year-old male with a history of CAD s/p CABG in 06/2024 (prior remote stents in 2011). His ejection fraction is normal. He is doing quite well with his current medications. he needs to remain on aspirin 81mg daily, lifelong. I have not changed his statin or antihypertensive regimen today. Will get a routine echo, at his convenience, as a new post-op baseline. Otherwise he should remain as active as possible and I will see him back in one year, sooner if needed. It was a pleasure seeing your patient in the office today. Please do not hesitate to call me with any questions. Follow up in about 1 year (around 11/13/2025). Subjective HPI Sharonda Flores is a 69 y.o. male with a history of several PCIs, most recently in May 2012. He had a stress test in 05/2024 showing inferior ischemia. Cath then showed three vessel CAD. He underwent CABG in 06/2024 (GREY-LAD, SVG-PDA, SVG-D1). EF was normal pre-op. He did well post-op and has recovered well. Sharonda Flores is here for routine follow up. he Is doing well, having no cardiac symptoms. He has some mild continued soreness at his incision site, but overall feels pretty good. Review of Systems Constitutional: Negative for activity change, chills, diaphoresis, fatigue and fever. HENT: Negative for nosebleeds and trouble swallowing. Eyes: Negative for discharge and visual disturbance. Respiratory: Negative for apnea, cough, chest tightness, shortness of breath and wheezing. Cardiovascular: Negative for chest pain, palpitations and leg swelling. Gastrointestinal: Negative for abdominal distention, abdominal pain, blood in stool, diarrhea, nausea and vomiting. Endocrine: Negative for cold intolerance and heat intolerance. Genitourinary: Negative for hematuria. Musculoskeletal: Negative for gait problem and myalgias. Skin: Negative for color change and rash. Neurological: Negative for dizziness, seizures, syncope, facial asymmetry, speech difficulty, weakness, light-headedness, numbness and headaches. Hematological: Does not bruise/bleed easily. Psychiatric/Behavioral: Negative for dysphoric mood. Allergies Allergen Reactions Pcn [Penicillins] Rash Current Outpatient Medications: aspirin 81 MG EC tablet, Take 81 mg by mouth every morning (before breakfast)., Disp: , Rfl: atorvastatin (Lipitor) 80 MG tablet, Take 1 tablet (80 mg) by mouth every evening., Disp: 90 tablet, Rfl: 3 clopidogrel (Plavix) 75 MG tablet, TAKE 1 TABLET BY MOUTH EVERY DAY, Disp: 30 tablet, Rfl: 2 ezetimibe (Zetia) 10 MG tablet, Take 1 tablet (10 mg) by mouth every morning (before breakfast)., Disp: 30 tablet, Rfl: 3 methocarbamol 1000 MG tablet, Take 1,000 mg by mouth every 8 hours as needed for muscle spasms for up to 14 days., Disp: 42 tablet, Rfl: 0 metoprolol tartrate (Lopressor) 25 MG tablet, Take 1 tablet (25 mg) by mouth 2 times daily., Disp: 60 tablet, Rfl: 3 Past Medical History: Diagnosis Date Arrhythmia v-fib/ arrest CAD (coronary artery disease) Cancer (CMS/HCC) (HCC) LUNG UPPER RIGHT - SURGERY FOR REMOVAL 02/09/2024 Congenital heart disease Hyperlipidemia Hypertension [place], old [address] [address] Sleep apnea NO CPAP WORN Social History Tobacco Use Smoking status: Former Current packs/day: 0.00 Average packs/day: 2.0 packs/day for 56.1 years (112.2 ttl pk-yrs) Types: Cigarettes Start date: 1955 Quit date: 08/17/2011 Years since quittin.2 Smokeless tobacco: Former Quit date: 1970 Tobacco comments: Quit smoking: currently occ cigar Substance Use Topics Alcohol use: No Past Surgical History: Procedure Laterality Date ADENOIDECTOMY APPENDECTOMY CARDIAC CATHETERIZATION N/A 07/05/2024 Performed by Becky Tineo MD at [facility] Cardiac Cath/EP Lab CARDIAC PROCEDURE 03/15/2012 BMS mid dis RCA CARDIAC PROCEDURE 03/2012 REBECCA to mis dist LAD CARDIAC PROCEDURE 05/2012 REBECCA to prox LCx COLONOSCOPY CORONARY ANGIOPLASTY 05/2012 circ, distal RCA, & LAD TONSILLECTOMY Family History Problem Relation Name Age of Onset Heart disease Father Thad No Known Problems Mother Cancer Maternal Grandfather Mother Objective Vitals: 11/13/24 1245 11/13/24 1300 BP: (S) (!) 162/80 136/68 BP Location: Right arm Left arm Patient Position: Sitting BP Cuff Size: Adult Pulse: 66 SpO2: 98% Weight: 157 lb (71.2 kg) Height: 5' 5 (1.651 m) Physical Exam Constitutional: General: He is not in acute distress. Appearance: He is not diaphoretic. HENT: Head: Normocephalic. Nose: Nose normal. Mouth/Throat: Mouth: Mucous membranes are moist. Pharynx: No oropharyngeal exudate. Eyes: General: No scleral icterus. Right eye: No discharge. Left eye: No discharge. Neck: Thyroid: No thyromegaly. Vascular: No carotid bruit or JVD. Cardiovascular: Rate and Rhythm: Normal rate and regular rhythm. Pulses: Normal pulses. Heart sounds: Normal heart sounds. Pulmonary: Effort: Pulmonary effort is normal. Breath sounds: Normal breath sounds. Abdominal: General: Bowel sounds are normal. There is no distension. Palpations: There is no hepatomegaly. Tenderness: There is no abdominal tenderness. Musculoskeletal: General: Normal range of motion. Cervical back: Normal range of motion. Right lower leg: No edema. Left lower leg: No edema. Skin: General: Skin is warm and dry. Neurological: Mental Status: He is oriented to person, place, and time. Psychiatric: Mood and Affect: Mood normal. Behavior: Behavior normal. Data Reviewed and Summarized EF BP Date Value Ref Range Status 06/25/2024 67 55 - 100 % Final Review of tests/labs done/ordered within my specialty: EKG in office: Review of tests/labs done/ordered outside my specialty: Independent interpretation of tests: Becky Tineo MD documented in this encounter [facility] 11-13-2024 Miscellaneous Notes Addended by: BECKY TINEO on: 11/13/2024 02:04 PM Modules accepted: Orders documented in this encounter [facility] 11-13-2024 Note Addended by: BECKY GONZALEZ on: 11/13/2024 02:04 PM Modules accepted: Orders [facility] 11-13-2024 Note Addended by: BECKY GONZALEZ on: 11/13/2024 02:04 PM Modules accepted: Orders [facility] 10-25-2024 History of Presen t illness Narrative 10/25/24 Community Health Worker Patient active with: [facility] RN MARCI Grant Reason for Call: [facility] outreach Chart review completed. Follow up Appointments 11/13 Cardiology Placed a phone call no answer, left voice message stating reason for call. Left contact information for call back. [facility] end call. documented in this encounter [facility] 10-09-2024 History of Presen t illness Narrative Images from the original note were not included. [facility] Medical Group: [facility] [employer] [address] [facility] [address] Dept: [phone] Dept Loc: [phone] Visit type: Established patient Reason for Visit: Follow-up Assessment and Plan 1. S/P CABG (coronary artery bypass graft) 07/25/24: Dr. Martinez- CABG x3 (GREY-LAD, SVG-Diag, SVG-PDA), LAD endarterectomy LEVH, ZARI -No issues, progressing well physically. -Starting Cardiac Rehab in the next couple of weeks. -Incisions healing well. -Pain tolerable. POD#83 Day from Discharge (07/31/24) #78 -Reviewed current meds: Continue as prescribed. -Surgical Incisions: Per patient-healing appropriately, well approximated, no s/s of infection. -Physical therapy as outlined in discharge instructions.Ok to attend Cardiac Rehab and Ok to drive. -Acute Post-Operative Pain controlled. Patient no longer taking narcotic opioid medication. Tx plan: Over The Counter-Tylenol (acetaminophen) 500 mg 1-2 tablets every 6 hours. No more than 4,000 mg in 24 hour period, Over The Counter-Motrin (ibuprofen) 200-400 mg by mouth every 4-6 hours (or) 600-800mg every 8 hours. No more than 3,200 mg per day, Over The Counter-pain patches (Salon pas) may used as needed next to incision but not directly on your incision, and Ice packs applied for 20 minutes, then off for at least 20 minutes before reapplying. Weight restriction measures 1-4 weeks from date of surgery- 10lbs weight restriction: 5-8 weeks from date of surgery- 20lbs weight restriction: 9-12 weeks from date of surgery-30lbs weight restriction approximate end date: Disposition: Patient verbalized understanding of plan and stated they would call if any questions or concerns arise. Treatment Team: PCP: Tima Tello MD Patient was identified and seen today via Telehealth by agreement and consent. I used the following Telehealth technology: Audio capability only. Total length of call 10 minutes. The patient was offered and advised video for a more comprehensive evaluation, but the patient declined or was unable to use video. Patient location: Patient Location: Home. This patient encounter is appropriate and reasonable under the circumstances: Patient preference . The patient has been advised of the potential risks and limitations of this mode of treatment (including but not limited to the absence of in-person examination) and has agreed to be treated in a remote fashion in spite of them. Any and all of the patient's/patient's family's questions on this issue have been answered and I have made no promises or guarantees to the patient. The patient has also been advised to contact this office for worsening conditions or problems, and seek emergency medical treatment and/or call 911 if the patient deems either necessary. The patient stated that they are currently in the [facility]. If the patient is a minor, permission has been obtained by the parent or guardian for the patient to receive medical care at this visit. Subjective HPI: Sharonda Flores is a 68 y.o. male referred by Dr. Tineo for CABG. Patient's PMHx includes CAD (s/p several PCI, most recently 2011 - LAD, LCx, distal RCA with known PHYSICIAN NON INVASIVE CARDIOLOGIST D2), preserved LVEF (65%), HTN, HLD, PAD (follows with vascular at [facility]), prior tobacco use, pulmonary nodules, adenocarcinoma s/p RUL lobectomy 01/2024 (follows with Pulmonology), and psoriasis. Patient had presented to [facility] ED with a sharp pain in the center of his chest with left shoulder ache. He had associated diaphoresis and nausea. EKG was normal.Troponin was WNL. Discharged and advised to follow up with Cardiology. A stress echocardiogram was ordered and completed on 06/25/24 which was abnormal. He then underwent a heart catheterization on 07/08/24 which demonstrated multivessel CAD. Seen by Dr. Martinez in OP setting, agreeable to CABG, scheduled for 07/25/24. Patient extubated as expected post-op, was on pressor support and transfused blood products. Weaned off of pressors by POD#1. Had brief runs of atrial fibrillation, loaded with amio without re-occurrence. Patient progressed well and was able to DC home on POD#06. 08/14/24: Patient presents to office for follow up. Overall he is doing well. He says he is having good days and bad days. He is getting around well. Pain is tolerable, with aches and pains in his neck, back and shoulders. Noted to have L shoulder pain prior to surgery. Seen orthopedics for L shoulder pain. Incisions healing well, surgical tape removed. Appetite has been poor, encouraged small meals throughout the day and increased protein intake. Reviewed provided vitals log. 08/28/24: Spoke with patient on phone for follow up. Continues to recover well. Per patient, incisions healing. Pain tolerable. No acute issues. Reviewed medications. 09/09/24: Spoke to patient on phone for follow up. Overall doing well. Not eating much, requesting ensure prescription, will attempt to send to pharmacy. No acute issues. 10/09/24: Tolerating pain, getting around okay, starting Cardiac Rehab. Incisions healing well. No acute issues. Patient has been progressing well physically. Review of Systems Constitutional: Negative for chills, diaphoresis and fever. Respiratory: Negative for cough, shortness of breath and wheezing. Cardiovascular: Negative for palpitations and leg swelling. Neurological: Negative for dizziness and light-headedness. Allergies Allergen Reactions Pcn [Penicillins] Rash Outpatient Medications Prior to Visit Medication Sig Dispense Refill aspirin 81 MG EC tablet Take 81 mg by mouth every morning (before breakfast). atorvastatin (Lipitor) 80 MG tablet Take 1 tablet (80 mg) by mouth every evening. 90 tablet 3 clopidogrel (Plavix) 75 MG tablet Take 1 tablet (75 mg) by mouth daily. 30 tablet 2 ezetimibe (Zetia) 10 MG tablet Take 1 tablet (10 mg) by mouth every morning (before breakfast). 30 tablet 3 methocarbamol 1000 MG tablet Take 1,000 mg by mouth every 8 hours as needed for muscle spasms for up to 14 days. 42 tablet 0 metoprolol tartrate (Lopressor) 25 MG tablet Take 1 tablet (25 mg) by mouth 2 times daily. 60 tablet 3 Nutritional Supplements (Ensure High Protein) liquid Take 1 Bottle by mouth 2 times daily. 66963 mL 1 No facility-administered medications prior to visit. Past Medical History: Diagnosis Date Arrhythmia v-fib/ arrest CAD (coronary artery disease) Cancer (CMS/HCC) (HCC) LUNG UPPER RIGHT - SURGERY FOR REMOVAL 02/09/2024 Congenital heart disease Hyperlipidemia Hypertension [place], old 2011- [address] Sleep apnea NO CPAP WORN Objective Patient reported: Failed to redirect to the Timeline version of the [employer]. There were no vitals filed for this visit. Wt Readings from Last 3 Encounters: 07/31/24 158 lb (71.7 kg) 07/18/24 164 lb 2 oz (74.4 kg) 07/10/24 160 lb (72.6 kg) Physical exam deferred due to virtual visit-with audio (telephone) capabilities only. Data Reviewed and Summarized Labs/Imaging/Testing: reviewed EMR, see A&P for pertinent diagnostic results related to office visit SESAR Muniz CNP documented in this encounter [facility] 10-01-2024 History of Presen t illness Narrative 10/01/24 Community Health Worker Patient active with: [facility] RN MARCI Grant Chart review completed. Follow up Appointments 10/09 Cardio Thoracic Surgery 11/13 Cardiology Placed a call no answer, left voice message stating reason for call. Left contact information for call back. Outreach scheduled documented in this encounter [facility] 09-24-2024 History of Presen t illness Narrative Images from the original note were not included. Pulmonary Medicine Patients name: Sharonda Flores PCP: Tima Tello MD CC: follow-up HPI: Sharonda Flores is a 69 year old male former 37 pack year smoker, quitting in 2010 with PMH significant for CAD s/p stents, PAD, psoriasis, pulmonary nodules, adenocarcinoma of lung s/p RUL lobectomy 01/2024. No chemotherapy or radiation. Being seen by oncology with plans for active surveillance. He presents today for follow-up. Not currently on inhaled therapy. Previously seen by lung cancer screening. Now following with Oncology for surveillance. New to Dr. Mas in 04/2024 with overall stable pulmonary symptoms. Underwent CABG in June. He was seen by Oncology earlier this month with chest CT. CT notable for RLL tree-in-bud/clustered nodules likely infectious/inflammatory. Denied any sickness/concerns at that time. Today, he denies respiratory symptoms. No cough, wheezing, SOB or chest tightness. He notes ongoing soreness in his right ribs which first started after lobectomy. Denies recent illness or need for steroids/antibiotics for respiratory infections. PAST MEDICAL HISTORY Diagnosis Date Abdominal aortic aneurysm (AAA) without rupture (HCC) 3 x 3.1 cm 05/2021, repeat 1 year. Benign neoplasm of colon Coronary artery disease involving chilkoot coronary artery of chilkoot heart without angina pectoris Dr. Tineo Essential hypertension Heart attack (HCC) 2011 s/p stents History of tobacco use HLD (hyperlipidemia) Multiple lung nodules on CT 11/09/2023 PET scan ordered PAD (peripheral artery disease) (HCC) 04/04/2024 Mild to moderate disease LLE on LINH Primary lung adenocarcinoma, right (HCC) RUL,s/p 02/09/24 flexible bronchoscopy, right VATS, right upper lobe wedge resection, cryo nerve block, mediastinal lymph node dissection Psoriasis [facility] S/P lobectomy of lung S/P triple vessel bypass 07/25/2024 Thrombocytopenia (HCC) Tinnitus of both ears Allergies: Penicillins Hives Medication List Accurate as of September 20, 2024 5:28 PM. If you have any questions, ask your nurse or doctor. CONTINUE taking these medications Aspirin 81 mg Tab atorvastatin 80 mg tablet Commonly known as: LIPITOR Take 1 tablet by mouth daily at bedtime. For cholesterol. clopidogrel 75 mg tablet Commonly known as: PLAVIX methocarbamol 1,000 mg tablet metoprolol tartrate (short acting) 25 mg tablet Commonly known as: LOPRESSOR DATA: I personally reviewed and analyzed all labs, radiographs and available pulmonary function testing PFT: 11/2023 Spirometry did not show obstruction. Lung volumes not valid. The diffusing capacity is normal. CXR: Last XR Chest - Impression Only XR CHEST 1V FRONTAL Exam End: 07/31/2024 5:43 AM (Final result) Impression: Probable small left pleural effusion. Atelectasis at the left base as well Report Dictated on Electronically Signed By: Elijah Flynn MD Electronically Signed Date/Time: 07/31/2024 6:[address] Chest: 09/06/2024 IMPRESSION: 1. Multiple clustered nodules in a tree-in-bud distribution in the posterior right lower lobe which are most likely infectious/inflammatory 2. Retained secretions in the trachea 3. No thoracic lymphadenopathy Security Business Analyst: [facility] Transcribe Date/Time: Sep 11 2024 9:31A Dictated by : JOANNA LYONS MD This examination was interpreted and the report reviewed and electronically signed by: JOANNA LYONS MD on Sep 11 2024 9:46AM EST Results-Findings * * *Final Report* * * DATE OF EXAM: Sep 06 2024 3:26PM [facility] [id number] - CT CHEST W IVCON / PROCEDURE REASON: Malignant neoplasm of unspecified part of unspecified bronchus or lung (HCC) * * * * Physician Interpretation * * * * EXAMINATION: CHEST CT WITH CONTRAST CLINICAL HISTORY: Non-small cell lung cancer. Status post right upper lobectomy. Technique: Spiral CT acquisition of the chest from the thoracic inlet to the upper abdomen following IV contrast. MQ: [id number] Contrast: 50 mL Omnipaque [address] Radiation dose: Integrated Dose-length product (DLP) for this visit = 173 mGy*cm CT Dose Reduction Employed: Automated exposure control(AEC) and iterative recon Comparison: CT chest 12/13/2023 RESULT: Limitations: None. Lines, tubes, and devices: None. Lung parenchyma and airways: Postoperative changes from a right upper lobectomy. No consolidation. Multiple clustered nodules in the posterior right lower lobe which are most likely infectious/inflammatory. Retained secretions in the trachea. The central airways are patent. Pleural space: No pleural effusion. No pleural thickening. Lower neck, lymph nodes, and mediastinum: The imaged thyroid gland is normal. No lymphadenopathy in the supraclavicular, axillary, mediastinal, or hilar regions. Heart, pericardium, and thoracic vessels: The thoracic aorta and main pulmonary artery are normal in caliber. The cardiac chambers are normal in size. Coronary artery atherosclerotic calcifications are noted, although the study is not optimized for coronary assessment. No pericardial effusion or thickening. Bones and soft tissues: No destructive bone lesion. Median sternotomy wires are noted. Chest wall is unremarkable. Upper abdomen: No abnormality in the imaged upper abdomen. Localizer images: No additional findings. IMMUNIZATIONS Prevnar - xx Pneumovax 23 - xx Influenza - xx COVID-19 - xx RSV- xx Review of Systems Constitutional: Negative for activity change, appetite change and unexpected weight change. HENT: Negative for congestion, postnasal drip and sinus pressure. Respiratory: Negative for cough, chest tightness, shortness of breath and wheezing. Cardiovascular: Negative for palpitations and leg swelling. Neurological: Negative for weakness. BP 118/72 Pulse 66 Resp 18 SpO2 96% Physical Exam Vitals reviewed. Constitutional: General: He is not in acute distress. Appearance: Normal appearance. He is normal weight. He is not ill-appearing. HENT: Head: Normocephalic. Nose: No rhinorrhea. Cardiovascular: Rate and Rhythm: Normal rate and regular rhythm. Heart sounds: Normal heart sounds. Pulmonary: Effort: Pulmonary effort is normal. No respiratory distress. Breath sounds: No wheezing or rhonchi. Musculoskeletal: Right lower leg: No edema. Left lower leg: No edema. Skin: General: Skin is warm and dry. Capillary Refill: Capillary refill takes less than 2 seconds. Neurological: General: No focal deficit present. Mental Status: He is alert. ASSESSMENT/PLAN: 1. Pulmonary air trapping - ICD9: 786.9, ICD10: R09.89 (primary diagnosis) - PFT without COPD - patient without pulmonary complaints. No need for inhaled therapy at this time. 2. Malignant neoplasm of upper lobe of right lung (HCC) - ICD9: 162.3, ICD10: C34.11 - stage 1A adenocarcinoma s/p lung resection. - no current need for chemotherapy per oncology - patient with questions on CT report- clustered nodules in RLL. Previously discussed with oncology. Reviewed images and radiology report with patient and questions answered. No current pulmonary symptoms. Plan for repeat imaging in 6 months. - surveillance for 5 years with oncology, chest CT due in February. 3. Former cigarette smoker - ICD9: V15.82, ICD10: Z87.891 - quit in 2010 - continued cessation F/u 6 months Portions of this documentation were copied and pasted from previous office visit notes in order to provide a cohesive continuity of the history. The note has been reviewed and edited and updated as necessary. Gisselle Phelan APRN.CNP I spent a total of 23 minutes on the date of the service which included preparing to see the patient, [id number] patient care, completing clinical documentation, performing a medically appropriate examination, counseling and educating the patient/family/caregiver, and communicating results to the patient/family/caregiver. documented in this encounter [facility] 09-24-2024 Note HNO ID: [id number] Author: GISSELLE PHELAN APRN.CNP Service: ? Author Type: Nurse Practitioner Type: Progress Notes Filed: 09/24/2024 09:56 Note Text: Pulmonary Medicine Patients name: Sharonda Flores PCP: Tima Tello MD CC: follow-up HPI: Sharonda Flores is a 69 year old male former 37 pack year smoker, quitting in 2010 with PMH significant for CAD s/p stents, PAD, psoriasis, pulmonary nodules, adenocarcinoma of lung s/p RUL lobectomy 01/2024. No chemotherapy or radiation. Being seen by oncology with plans for active surveillance. He presents today for follow-up. Not currently on inhaled therapy. Previously seen by lung cancer screening. Now following with Oncology for surveillance. New to Dr. Mas in 04/2024 with overall stable pulmonary symptoms. Underwent CABG in June. He was seen by Oncology earlier this month with chest CT. CT notable for RLL tree-in-bud/clustered nodules likely infectious/inflammatory. Denied any sickness/concerns at that time. Today, he denies respiratory symptoms. No cough, wheezing, SOB or chest tightness. He notes ongoing soreness in his right ribs which first started after lobectomy. Denies recent illness or need for steroids/antibiotics for respiratory infections. PAST MEDICAL HISTORY Diagnosis Date Abdominal aortic aneurysm (AAA) without rupture (HCC) 3 x 3.1 cm 05/2021, repeat 1 year. Benign neoplasm of colon Coronary artery disease involving chilkoot coronary artery of chilkoot heart without angina pectoris Dr. Tineo Essential hypertension Heart attack (HCC) 2011 s/p stents History of tobacco use HLD (hyperlipidemia) Multiple lung nodules on CT 11/09/2023 PET scan ordered PAD (peripheral artery disease) ([facility]) 04/04/2024 Mild to moderate disease LLE on LINH Primary lung adenocarcinoma, right (HCC) RUL,s/p 02/09/24 flexible bronchoscopy, right VATS, right upper lobe wedge resection, cryo nerve block, mediastinal lymph node dissection Psoriasis [facility] S/P lobectomy of lung S/P triple vessel bypass 07/25/2024 Thrombocytopenia (HCC) Tinnitus of both ears Allergies: Penicillins Hives Medication List Accurate as of September 20, 2024 5:28 PM. If you have any questions, ask your nurse or doctor. CONTINUE taking these medications Aspirin 81 mg Tab atorvastatin 80 mg tablet Commonly known as: LIPITOR Take 1 tablet by mouth daily at bedtime. For cholesterol. clopidogrel 75 mg tablet Commonly known as: PLAVIX methocarbamol 1,000 mg tablet metoprolol tartrate (short acting) 25 mg tablet Commonly known as: LOPRESSOR DATA: I personally reviewed and analyzed all labs, radiographs and available pulmonary function testing PFT: 11/2023 Spirometry did not show obstruction. Lung volumes not valid. The diffusing capacity is normal. CXR: Last XR Chest - Impression Only XR CHEST 1V FRONTAL Exam End: 07/31/2024 5:43 AM (Final result) Impression: Probable small left pleural effusion. Atelectasis at the left base as well Report Dictated on Electronically Signed By: Elijah Flynn MD Electronically Signed Date/Time: 07/31/2024 6:[address] Chest: 09/06/2024 IMPRESSION: 1. Multiple clustered nodules in a tree-in-bud distribution in the posterior right lower lobe which are most likely infectious/inflammatory 2. Retained secretions in the trachea 3. No thoracic lymphadenopathy Security Business Analyst: PSCB Transcribe Date/Time: Sep 11 2024 9:31A Dictated by : JOANNA LYONS MD This examination was interpreted and the report reviewed and electronically signed by: JOANNA LYONS MD on Sep 11 2024 9:46AM EST Results-Findings * * *Final Report* * * DATE OF EXAM: Sep 06 2024 3:26PM [facility] 0539 - CT CHEST W IVCON / PROCEDURE REASON: Malignant neoplasm of unspecified part of unspecified bronchus or lung (HCC) * * * * Physician Interpretation * * * * EXAMINATION: CHEST CT WITH CONTRAST CLINICAL HISTORY: Non-small cell lung cancer. Status post right upper lobectomy. Technique: Spiral CT acquisition of the chest from the thoracic inlet to the upper abdomen following IV contrast. MQ: [id number]_6 Contrast: 50 mL Omnipaque [address] Radiation dose: Integrated Dose-length product (DLP) for this visit = 173 mGy*cm CT Dose Reduction Employed: Automated exposure control(AEC) and iterative recon Comparison: CT chest 12/13/2023 RESULT: Limitations: None. Lines, tubes, and devices: None. Lung parenchyma and airways: Postoperative changes from a right upper lobectomy. No consolidation. Multiple clustered nodules in the posterior right lower lobe which are most likely infectious/inflammatory. Retained secretions in the trachea. The central airways are patent. Pleural space: No pleural effusion. No pleural thickening. Lower neck, lymph nodes, and mediastinum: The imaged thyroid gland is normal. No lymphadenopathy in the s (more content not included)... [facility] 09-17-2024 History of Presen t illness Narrative 09/16/2024 Patient presents with: F/U 3 Month SUBJECTIVE: This is a 69 year old that is here today for Above Complaints.. HTN: Patient is compliant with meds Yes Monitors bp at home: Yes. Denies side effects: Yes. Chest pain: No. Dyspnea: No. Edema: No. Palpitations: No. Syncope: No. Headache: No. Dizziness: No. HYPERLIPIDEMIA: Patient is taking medications: Yes. Patient is watching diet: Yes. Patient denies myalgias: Yes. Patient denies gi upset: Yes Triple bypass on 07/25/2025. Doing well. Last follow-up on 09/09/2024. Currently doing cardiac rehab Follows with oncology and pulmonology for hx of NSCLC with last office appointment on 09/09/2024. No medication changes. Next follow-up 03/17/2025. Recently completed CT chest PAD: followed with [facility] on 06/07/2024. No changes in current regime. PAST MEDICAL HISTORY Diagnosis Date Abdominal aortic aneurysm (AAA) without rupture (HCC) 3 x 3.1 cm 05/2021, repeat 1 year. Benign neoplasm of colon Coronary artery disease involving chilkoot coronary artery of chilkoot heart without angina pectoris Dr. Tineo Essential hypertension Heart attack (HCC) 2011 s/p stents History of tobacco use HLD (hyperlipidemia) Multiple lung nodules on CT 11/09/2023 PET scan ordered PAD (peripheral artery disease) (HCC) 04/04/2024 Mild to moderate disease LLE on LINH Primary lung adenocarcinoma, right (HCC) RUL,s/p 02/09/24 flexible bronchoscopy, right VATS, right upper lobe wedge resection, cryo nerve block, mediastinal lymph node dissection Psoriasis [facility] S/P lobectomy of lung Thrombocytopenia (HCC) Tinnitus of both ears ALLERGIES Penicillins MEDICATIONS Current Outpatient Medications Medication Sig methocarbamol 1,000 mg tablet Take 1,000 mg by mouth four times daily. clopidogrel (PLAVIX) 75 mg tablet Take 75 mg by mouth. metoprolol tartrate, short acting, (LOPRESSOR) 25 mg tablet Take 25 mg by mouth two times a day. atorvastatin (LIPITOR) 80 mg tablet Take 1 tablet by mouth daily at bedtime. For cholesterol. Aspirin 81 mg Tab Take 81 mg by mouth once daily. No current facility-administered medications for this visit. Medications and allergies reviewed by this provider. SOCIAL HISTORY Social History Tobacco Use Smoking status: Former Current packs/day: 0.00 Average packs/day: 1.5 packs/day for 25.0 years (37.5 ttl pk-yrs) Types: Cigarettes Start date: 01/24/1986 Quit date: 01/24/2011 Years since quittin.6 Smokeless tobacco: Never Vaping Use Vaping status: Never Used Substance Use Topics Alcohol use: Not Currently Drug use: Yes Types: Marijuana Comment: Twice a month REVIEW OF SYSTEMS All other reviewed and negative other than HPI. OBJECTIVE: BP 122/68 Pulse 74 Resp 18 Wt 68.5 kg (151 lb 0.2 oz) SpO2 97% BMI 23.70 kg/m . Vital signs reviewed by this provider. APPEARANCE Well appearing, alert, in no acute distress, well-hydrated, well nourished. EYES conjunctiva and sclera normal. HEART RRR with normal S1 and S2, no murmurs, no gallops, no JVD appreciated LUNG clear to auscultation. No wheezes, rhonchi or rales EXTREMITIES Extremities normal, No deformities, No skin discoloration, and No edema SKIN Skin color, texture, turgor normal, no suspicious rashes or lesions to exposed skin Latest Ref Rng 09/02/2024 Cholesterol, Total <200 mg/dL 148 Triglyceride <150 mg/dL 182 (H) HDL Cholesterol >39 mg/dL 28 (L) Non HDL Cholesterol <130 mg/dL 120 Fasting Time hrs 24 VLDL Cholesterol <30 mg/dL 36 (H) TC:HDL Ratio <5.10 5.29 (H) LDL Cholesterol <100 mg/dL 84 LDL:HDL Ratio <2.54 3.00 (H) Legend: (H) High (L) Low DTaP,Tdap,Td Vaccine(1 - Tdap) Never done Shingrix Vaccine(1 of 2) Never done Pneumococcal Vaccine: 50+(1 of 1 - PCV) Never done RSV Vaccine(1 - Risk 60-74 years 1-dose series) Never done Advance Directive Discussion due on 07/31/2024 Influenza Vaccine(1) due on 01/27/2025 Covid-19 Vaccine(3 - season) due on 06/10/2025 Depression Screening due on 12/07/2024 Anxiety Screening due on 12/07/2024 LDL Cholesterol due on 09/02/2025 Annual PCP Team Chronic Disease Visit due on 09/17/2025 BP Controlled (<130/80) due on 09/17/2025 Diabetes Screening due on 07/31/2027 Lipid Screening due on 09/02/2029 Colorectal Cancer Screening due on 08/03/2031 Abdominal Aortic Aneurysm Screening Completed Hepatitis C Screening Completed ASSESSMENT/PLAN: 1. Essential hypertension - ICD9: 401.9, ICD10: I10 (primary diagnosis) - Controlled - Continue current medications - Recommend home blood pressure monitoring, to bring results to next visit - Encouraged sodium restriction, DASH or Mediterranean diet - Recommend regular aerobic exercise - Follow up in 6 months for hypertension visit 2. Hyperlipidemia, mixed - ICD9: 272.2, ICD10: E78.2 - Controlled - Continue current medications - Counseled on healthy diet and regular exercise - Follow up in 6 months, sooner should any other issues arise. 3. Coronary artery disease involving chilkoot coronary artery of chilkoot heart without angina pectoris - ICD9: 414.01, ICD10: I25.10 - stable - continue current medications - follow-up with cardiology as recommended 4. PAD (peripheral artery disease) (HCC) - ICD9: 443.9, ICD10: I73.9 - stable - continue medications - follow-up with vascular as recommended 5. S/P lobectomy of lung - ICD9: V45.89, ICD10: Z90.2 - follow-up with pulmonology as scheduled next week 6. S/P triple vessel bypass - ICD9: V45.81, ICD10: Z95.1 - plan as in #3 7. Primary lung adenocarcinoma, right (HCC) - ICD9: 162.9, ICD10: C34.91 - stable - follow-up with oncology as scheduled in February Alejandra Viramontes APRN.DISASTER RECOVERY MANAGER Prescription instructions reviewed with patient as applicable. Patient advised if symptoms do not improve or if symptoms worsen sooner, to contact their primary care physician. Potential red flag symptoms discussed with the patient. Reviewed appropriate action plan to take if red flag symptoms occur. Patient agreeable to treatment plan. Medical Decision Making: Problems: Moderate: 2+ stable chronic illnesses Risk: Moderate: Moderate risk from testing/treatment Medical Decision Making Level: 4 - Moderate documented in this encounter [facility] 09-17-2024 Note HNO ID: [id number] Author: ALEJANDRA VIRAMONTES APRN.RENEE Service: ? Author Type: Nurse Practitioner Type: Progress Notes Filed: 09/17/2024 08:41 Note Text: 09/16/2024 Patient presents with: F/U 3 Month SUBJECTIVE: This is a 69 year old that is here today for Above Complaints.. HTN: Patient is compliant with meds Yes Monitors bp at home: Yes. Denies side effects: Yes. Chest pain: No. Dyspnea: No. Edema: No. Palpitations: No. Syncope: No. Headache: No. Dizziness: No. HYPERLIPIDEMIA: Patient is taking medications: Yes. Patient is watching diet: Yes. Patient denies myalgias: Yes. Patient denies gi upset: Yes Triple bypass on 07/25/2025. Doing well. Last follow-up on 09/09/2024. Currently doing cardiac rehab Follows with oncology and pulmonology for hx of NSCLC with last office appointment on 09/09/2024. No medication changes. Next follow-up 03/17/2025. Recently completed CT chest PAD: followed with [facility] on 06/07/2024. No changes in current regime. PAST MEDICAL HISTORY Diagnosis Date Abdominal aortic aneurysm (AAA) without rupture (HCC) 3 x 3.1 cm 05/2021, repeat 1 year. Benign neoplasm of colon Coronary artery disease involving chilkoot coronary artery of chilkoot heart without angina pectoris Dr. Tineo Essential hypertension Heart attack (HCC) 2011 s/p stents History of tobacco use HLD (hyperlipidemia) Multiple lung nodules on CT 11/09/2023 PET scan ordered PAD (peripheral artery disease) (HCC) 04/04/2024 Mild to moderate disease LLE on LINH Primary lung adenocarcinoma, right (HCC) RUL,s/p 02/09/24 flexible bronchoscopy, right VATS, right upper lobe wedge resection, cryo nerve block, mediastinal lymph node dissection Psoriasis [facility] S/P lobectomy of lung Thrombocytopenia (HCC) Tinnitus of both ears ALLERGIES Penicillins MEDICATIONS Current Outpatient Medications Medication Sig methocarbamol 1,000 mg tablet Take 1,000 mg by mouth four times daily. clopidogrel (PLAVIX) 75 mg tablet Take 75 mg by mouth. metoprolol tartrate, short acting, (LOPRESSOR) 25 mg tablet Take 25 mg by mouth two times a day. atorvastatin (LIPITOR) 80 mg tablet Take 1 tablet by mouth daily at bedtime. For cholesterol. Aspirin 81 mg Tab Take 81 mg by mouth once daily. No current facility-administered medications for this visit. Medications and allergies reviewed by this provider. SOCIAL HISTORY Social History Tobacco Use Smoking status: Former Current packs/day: 0.00 Average packs/day: 1.5 packs/day for 25.0 years (37.5 ttl pk-yrs) Types: Cigarettes Start date: 01/24/1986 Quit date: 01/24/2011 Years since quittin.6 Smokeless tobacco: Never Vaping Use Vaping status: Never Used Substance Use Topics Alcohol use: Not Currently Drug use: Yes Types: Marijuana Comment: Twice a month REVIEW OF SYSTEMS All other reviewed and negative other than HPI. OBJECTIVE: BP 122/68 Pulse 74 Resp 18 Wt 68.5 kg (151 lb 0.2 oz) SpO2 97% BMI 23.70 kg/m? . Vital signs reviewed by this provider. APPEARANCE Well appearing, alert, in no acute distress, well-hydrated, well nourished. EYES conjunctiva and sclera normal. HEART RRR with normal S1 and S2, no murmurs, no gallops, no JVD appreciated LUNG clear to auscultation. No wheezes, rhonchi or rales EXTREMITIES Extremities normal, No deformities, No skin discoloration, and No edema SKIN Skin color, texture, turgor normal, no suspicious rashes or lesions to exposed skin Latest Ref [facility] 09/02/2024 Cholesterol, Total <200 mg/dL 148 Triglyceride <150 mg/dL 182 (H) HDL Cholesterol >39 mg/dL 28 (L) Non HDL Cholesterol <130 mg/dL 120 Fasting Time hrs 24 VLDL Cholesterol <30 mg/dL 36 (H) TC:HDL Ratio <5.10 5.29 (H) LDL Cholesterol <100 mg/dL 84 LDL:HDL Ratio <2.54 3.00 (H) Legend: (H) High (L) Low DTaP,Tdap,Td Vaccine(1 - Tdap) Never done Shingrix Vaccine(1 of 2) Never done Pneumococcal Vaccine: 50+(1 of 1 - PCV) Never done RSV Vaccine(1 - Risk 60-74 years 1-dose series) Never done Advance Directive Discussion due on 07/31/2024 Influenza Vaccine(1) due on 01/27/2025 Covid-19 Vaccine(3 - season) due on 06/10/2025 Depression Screening due on 12/07/2024 Anxiety Screening due on 12/07/2024 LDL Cholesterol due on 09/02/2025 Annual PCP Team Chronic Disease Visit due on 09/17/2025 BP Controlled (<130/80) due on 09/17/2025 Diabetes Screening due on 07/31/2027 Lipid Screening due on 09/02/2029 Colorectal Cancer Screening due on 08/03/2031 Abdominal Aortic Aneurysm Screening Completed Hepatitis C Screening Completed ASSESSMENT/PLAN: 1. Essential hypertension - ICD9: 401.9, ICD10: I10 (primary diagnosis) - Controlled - Continue current medications - Recommend home blood pressure monitoring, to bring results to next visit - Encouraged sodium restriction, DASH or Mediterranean diet - Recommend regular aerobic exercise - Follow up (more content not included)... [facility] 09-12-2024 Telephone encounter Note Pt called back. Info relayed and pt verbalized understanding. Teresa Cortes MA [facility] 09-12-2024 Miscellaneous Notes Pt called back. Info relayed and pt verbalized understanding. Teresa Cortes MA documented in this encounter [facility] 09-09-2024 History of Presen t illness Narrative Images from the original note were not included. [facility]: [facility] [address] [facility] [address] Dept: [phone] Dept Loc: [phone] Visit type: Established patient Reason for Visit: Follow-up Assessment and Plan 1. S/P CABG (coronary artery bypass graft) 2. Essential hypertension 3. Atrial fibrillation, unspecified type (HCC) 07/25/24: Dr. Martinez- CABG x3 (GREY-LAD, SVG-Diag, SVG-PDA), LAD endarterectomy ZE, ZARI Requesting ensure x2 months. -Will send script to pharmacy. Incisions healing well. Reviewed medications. No acute issues. POD#46 Day from Discharge (07/31/24) #40 -Reviewed current meds: Continue as prescribed. -Surgical Incisions: Per patient-healing appropriately, well approximated, no s/s of infection. -Physical therapy as outlined in discharge instructions.Ok to attend Cardiac Rehab and Ok to drive. -Acute Post-Operative Pain controlled. Patient no longer taking narcotic opioid medication. Tx plan: Over The Counter-Tylenol (acetaminophen) 500 mg 1-2 tablets every 6 hours. No more than 4,000 mg in 24 hour period, Over The Counter-Motrin (ibuprofen) 200-400 mg by mouth every 4-6 hours (or) 600-800mg every 8 hours. No more than 3,200 mg per day, Over The Counter-pain patches (Salon pas) may used as needed next to incision but not directly on your incision, and Ice packs applied for 20 minutes, then off for at least 20 minutes before reapplying. Weight restriction measures 1-4 weeks from date of surgery- 10lbs weight restriction: 5-8 weeks from date of surgery- 20lbs weight restriction: 9-12 weeks from date of surgery-30lbs weight restriction approximate end date: Disposition: Cardiology appt 11/13/24, will see if office can get moved up. Phone call in 3 weeks. Patient verbalized understanding of plan and stated they would call if any questions or concerns arise. Treatment Team: PCP: Tima Tello MD Patient was identified and seen today via Telehealth by agreement and consent. I used the following Telehealth technology: Audio capability only. Total length of call 20 minutes. The patient was offered and advised video for a more comprehensive evaluation, but the patient declined or was unable to use video. Patient location: Patient Location: Home. This patient encounter is appropriate and reasonable under the circumstances: Recently assessed in [facility] . The patient has been advised of the potential risks and limitations of this mode of treatment (including but not limited to the absence of in-person examination) and has agreed to be treated in a remote fashion in spite of them. Any and all of the patient's/patient's family's questions on this issue have been answered and I have made no promises or guarantees to the patient. The patient has also been advised to contact this office for worsening conditions or problems, and seek emergency medical treatment and/or call 911 if the patient deems either necessary. The patient stated that they are currently in the state [facility]. If the patient is a minor, permission has been obtained by the parent or guardian for the patient to receive medical care at this visit. Subjective HPI: Sharonda Flores is a 68 y.o. male referred by Dr. Tineo for CABG. Patient's PMHx includes CAD (s/p several PCI, most recently 2011 - LAD, LCx, distal RCA with known PHYSICIAN NON INVASIVE CARDIOLOGIST D2), preserved LVEF (65%), HTN, HLD, PAD (follows with vascular at [facility]), prior tobacco use, pulmonary nodules, adenocarcinoma s/p RUL lobectomy 01/2024 (follows with Pulmonology), and psoriasis. Patient had presented to [facility] ED with a sharp pain in the center of his chest with left shoulder ache. He had associated diaphoresis and nausea. EKG was normal.Troponin was WNL. Discharged and advised to follow up with Cardiology. A stress echocardiogram was ordered and completed on 06/25/24 which was abnormal. He then underwent a heart catheterization on 07/08/24 which demonstrated multivessel CAD. Seen by Dr. Martinez in OP setting, agreeable to CABG, scheduled for 07/25/24. Patient extubated as expected post-op, was on pressor support and transfused blood products. Weaned off of pressors by POD#1. Had brief runs of atrial fibrillation, loaded with amio without re-occurrence. Patient progressed well and was able to DC home on POD#06. 08/14/24: Patient presents to office for follow up. Overall he is doing well. He says he is having good days and bad days. He is getting around well. Pain is tolerable, with aches and pains in his neck, back and shoulders. Noted to have L shoulder pain prior to surgery. Seen orthopedics for L shoulder pain. Incisions healing well, surgical tape removed. Appetite has been poor, encouraged small meals throughout the day and increased protein intake. Reviewed provided vitals log. 08/28/24: Spoke with patient on phone for follow up. Continues to recover well. Per patient, incisions healing. Pain tolerable. No acute issues. Reviewed medications. 09/09/24: Spoke to patient on phone for follow up. Overall doing well. Not eating much, requesting ensure prescription, will attempt to send to pharmacy. No acute issues. Allergies Allergen Reactions Pcn [Penicillins] Rash Outpatient Medications Prior to Visit Medication Sig Dispense Refill aspirin 81 MG EC tablet Take 81 mg by mouth every morning (before breakfast). atorvastatin (Lipitor) 80 MG tablet Take 1 tablet (80 mg) by mouth every evening. 90 tablet 3 clopidogrel (Plavix) 75 MG tablet Take 1 tablet (75 mg) by mouth daily. 30 tablet 2 ezetimibe (Zetia) 10 MG tablet Take 1 tablet (10 mg) by mouth every morning (before breakfast). 30 tablet 3 methocarbamol 1000 MG tablet Take 1,000 mg by mouth every 8 hours as needed for muscle spasms for up to 14 days. 42 tablet 0 metoprolol tartrate (Lopressor) 25 MG tablet Take 1 tablet (25 mg) by mouth 2 times daily. 60 tablet 3 No facility-administered medications prior to visit. Past Medical History: Diagnosis Date Arrhythmia v-fib/ arrest CAD (coronary artery disease) Cancer (CMS/HCC) (HCC) LUNG UPPER RIGHT - SURGERY FOR REMOVAL 02/09/2024 Congenital heart disease Hyperlipidemia Hypertension [place], old 2011- [facility] Sleep apnea NO CPAP WORN Objective Patient reported: Failed to redirect to the Timeline version of the [employer]. There were no vitals filed for this visit. Wt Readings from Last 3 Encounters: 07/31/24 158 lb (71.7 kg) 07/18/24 164 lb 2 oz (74.4 kg) 07/10/24 160 lb (72.6 kg) Physical exam deferred due to virtual visit-with audio (telephone) capabilities only. Data Reviewed and Summarized Labs/Imaging/Testing: reviewed EMR, see A&P for pertinent diagnostic results related to office visit SESAR Muniz CNP documented in this encounter [facility] 09-09-2024 Note HNO ID: [id number] Author: HAKAN BLACKWELL, ? Service: ? Author Type: Nurse Practitioner Type: Progress Notes Filed: 09/09/2024 09:59 Note Text: Sharonda Flores 1955 09/09/2024 Consulted for NSCLC. The impression and plan will be communicated by way of the shared electronic record. HPI: The patient is a 68-year-old male with past medical history as outlined below. Had a screening CT of the lung 11/06/2023. Observed to have a solid nodule in the right upper lobe with an average diameter of approximately 10.2 mm. It would. Mildly larger when compared to scan in July 2023. There were 2 other nodules in the right upper lobe. 1 of which appeared stable and the other measuring 4 x 3 mm may have been slightly larger than when compared to previous scan. A 7.1 mm parenchymal density in the right upper lobe on PET scan performed subsequently had an SUV of 4.1. Ultimately underwent a right sided VATS right upper lobectomy on 02/09/2024. Interval Hx: Mr. Flores presents today for follow up and CT review. Unfortunately CT read is still pending today. He reports feeling generally well. Denies recent illness. No fevers, chills. Had a challenging year with resection followed closely by open heart surgery. He plans to begin cardiac rehab soon. Denies new aches or pains. No new or worsening SOB, CP, or palpitations. No changes in bowel or bladder habits. No rash or skin changes. Denies bleeding or bruising. Not much of an appetite since first surgery. Pathology: FINAL DIAGNOSIS A. Lung, right upper lobe, wedge resection: - Adenocarcinoma, acinar subtype. - Inked surgical margin is positive for carcinoma. - See comment. B. Lymph node, level 9, excision: - Lymph node tissue, negative for carcinoma (0/1). C. Lung, right upper lobe, lobectomy: - Adenocarcinoma, acinar (60%) and lepidic (40%) patterns. - Margins (bronchial, vascular and parenchymal margins) negative for tumor. - Focal features suggestive of prior infarct. - Seven lymph nodes, negative for carcinoma (0/7). - See comment and synoptic report. D. Lymph node, level 4, excision: - Fibroadipose tissue, negative for tumor. - Lymph node tissue is not present. E. Lymph node, level 7, excision: - One lymph node, negative for carcinoma (0/1). Diagnosis Comment A. The tumor in part A shows extensive frozen artifact which limits the morphologic evaluation as well as the evaluation for size,vascular space and pleural invasion. C. Targeted oncology profile (TOP), ALK, PDL1, ROS1 and RET testing will be performed A, C. Dr. Erica Roberts has reviewed this case and agrees with the above diagnosis. Block for additional Biomarkers/Molecular studies C16 Synoptic Report LUNG 8th Edition - Protocol posted: 04/20/2022LUNG: RESECTION - All Specimens SPECIMEN Procedure Lobectomy Specimen Laterality Right TUMOR Tumor Focality Single focus Tumor Site Upper lobe of lung Tumor Size Total Tumor Size (size of entire tumor) Greatest Dimension (Centimeters): at least 1.5 cm Size of Invasive Component Greatest Dimension (Centimeters): at least 1.5 cm Histologic Type Invasive acinar adenocarcinoma Histologic Patterns Present Acinar: 80 Histologic Grade G2, moderately differentiated Spread Through Air Spaces (ANITA) Not identified Visceral Pleura Invasion Not identified Direct Invasion of Adjacent Structures Not applicable (no adjacent structures present) Treatment Effect No known presurgical therapy Lymphovascular Invasion Not identified MARGINS Margin Status for Invasive Carcinoma All margins negative for invasive carcinoma Closest Margin(s) to Invasive Carcinoma Bronchial Vascular Parenchymal Distance from Invasive Carcinoma to Closest Margin 3.5 cm Margin Status for Non-Invasive Tumor All margins negative for non-invasive tumor REGIONAL LYMPH NODES Lymph Node(s) from Prior Procedures Not included Regional Lymph Node Status All regional lymph nodes negative for tumor Number of Lymph Nodes Examined 9 Erika Site(s) Examined 4R: Lower paratracheal 9R: Pulmonary ligament 7: Subcarinal PATHOLOGIC STAGE CLASSIFICATION (pTNM, AJCC 8th Edition) Reporting of pT, pN, and (when applicable) pM categories is based on information available to the pathologist at the time the report is issued. As per the AJCC (Chapter 1, 8th Ed.) it is the managing physician?s responsibility to establish the final pathologic stage based upon all pertinent information, including but potentially not limited to this pathology report. pT Category pT1b pN Category pN0 . Postthoracotomy pain improving. PAST MEDICAL HISTORY Diagnosis Date Abdominal aortic aneurysm (AAA) without rupture (HCC) 3 x 3.1 cm 05/2021, repeat 1 year. Benign neoplasm of colon Coronary artery disease involving chilkoot coronary artery of chilkoot heart without (more content not included)... [facility] 09-09-2024 History of Presen t illness Narrative Sharonda Flores 1955 09/09/2024 Consulted for NSCLC. The impression and plan will be communicated by way of the shared electronic record. HPI: The patient is a 68-year-old male with past medical history as outlined below. Had a screening CT of the lung 11/06/2023. Observed to have a solid nodule in the right upper lobe with an average diameter of approximately 10.2 mm. It would. Mildly larger when compared to scan in July 2023. There were 2 other nodules in the right upper lobe. 1 of which appeared stable and the other measuring 4 x 3 mm may have been slightly larger than when compared to previous scan. A 7.1 mm parenchymal density in the right upper lobe on PET scan performed subsequently had an SUV of 4.1. Ultimately underwent a right sided VATS right upper lobectomy on 02/09/2024. Interval Hx: Mr. Flores presents today for follow up and CT review. Unfortunately CT read is still pending today. He reports feeling generally well. Denies recent illness. No fevers, chills. Had a challenging year with resection followed closely by open heart surgery. He plans to begin cardiac rehab soon. Denies new aches or pains. No new or worsening SOB, CP, or palpitations. No changes in bowel or bladder habits. No rash or skin changes. Denies bleeding or bruising. Not much of an appetite since first surgery. Pathology: FINAL DIAGNOSIS A. Lung, right upper lobe, wedge resection: - Adenocarcinoma, acinar subtype. - Inked surgical margin is positive for carcinoma. - See comment. B. Lymph node, level 9, excision: - Lymph node tissue, negative for carcinoma (0/1). C. Lung, right upper lobe, lobectomy: - Adenocarcinoma, acinar (60%) and lepidic (40%) patterns. - Margins (bronchial, vascular and parenchymal margins) negative for tumor. - Focal features suggestive of prior infarct. - Seven lymph nodes, negative for carcinoma (0/7). - See comment and synoptic report. D. Lymph node, level 4, excision: - Fibroadipose tissue, negative for tumor. - Lymph node tissue is not present. E. Lymph node, level 7, excision: - One lymph node, negative for carcinoma (0/1). Diagnosis Comment A. The tumor in part A shows extensive frozen artifact which limits the morphologic evaluation as well as the evaluation for size,vascular space and pleural invasion. C. Targeted oncology profile (TOP), ALK, PDL1, ROS1 and RET testing will be performed A, C. Dr. Erica Roberts has reviewed this case and agrees with the above diagnosis. Block for additional Biomarkers/Molecular studies C16 Synoptic Report LUNG 8th Edition - Protocol posted: 04/20/2022LUNG: RESECTION - All Specimens SPECIMEN Procedure Lobectomy Specimen Laterality Right TUMOR Tumor Focality Single focus Tumor Site Upper lobe of lung Tumor Size Total Tumor Size (size of entire tumor) Greatest Dimension (Centimeters): at least 1.5 cm Size of Invasive Component Greatest Dimension (Centimeters): at least 1.5 cm Histologic Type Invasive acinar adenocarcinoma Histologic Patterns Present Acinar: 80 Histologic Grade G2, moderately differentiated Spread Through Air Spaces (ANITA) Not identified Visceral Pleura Invasion Not identified Direct Invasion of Adjacent Structures Not applicable (no adjacent structures present) Treatment Effect No known presurgical therapy Lymphovascular Invasion Not identified MARGINS Margin Status for Invasive Carcinoma All margins negative for invasive carcinoma Closest Margin(s) to Invasive Carcinoma Bronchial Vascular Parenchymal Distance from Invasive Carcinoma to Closest Margin 3.5 cm Margin Status for Non-Invasive Tumor All margins negative for non-invasive tumor REGIONAL LYMPH NODES Lymph Node(s) from Prior Procedures Not included Regional Lymph Node Status All regional lymph nodes negative for tumor Number of Lymph Nodes Examined 9 Erika Site(s) Examined 4R: Lower paratracheal 9R: Pulmonary ligament 7: Subcarinal PATHOLOGIC STAGE CLASSIFICATION (pTNM, AJCC 8th Edition) Reporting of pT, pN, and (when applicable) pM categories is based on information available to the pathologist at the time the report is issued. As per the AJCC (Chapter 1, 8th Ed.) it is the managing physician s responsibility to establish the final pathologic stage based upon all pertinent information, including but potentially not limited to this pathology report. pT Category pT1b pN Category pN0 . Postthoracotomy pain improving. PAST MEDICAL HISTORY Diagnosis Date Abdominal aortic aneurysm (AAA) without rupture (HCC) 3 x 3.1 cm 05/2021, repeat 1 year. Benign neoplasm of colon Coronary artery disease involving chilkoot coronary artery of chilkoot heart without angina pectoris Dr. Tineo Essential hypertension Heart attack (HCC) 2012 s/p stents History of tobacco use HLD (hyperlipidemia) Multiple lung nodules on CT 11/09/2023 PET scan ordered PAD (peripheral artery disease) (HCC) 04/04/2024 Mild to moderate disease LLE on LINH Primary lung adenocarcinoma, right (HCC) RUL,s/p 02/09/24 flexible bronchoscopy, right VATS, right upper lobe wedge resection, cryo nerve block, mediastinal lymph node dissection Psoriasis [facility] S/P lobectomy of lung Thrombocytopenia (HCC) Tinnitus of both ears PAST SURGICAL HISTORY Procedure Laterality Date COLONOSCOPY FLX DX W/COLLJ SPEC WHEN PFRMD 10/08/2008 Colonoscopy COLONOSCOPY FLX DX W/COLLJ SPEC WHEN PFRMD 08/03/2021 repeat in 10 years EXTRACTION, ERUPTED TOOTH OR EXPOSED ROOT (ELEVATION AND/OR FORCEPS REMOVAL) wisdom HEART CATHETERIZATION 2012 stent x 4 HEART SURGERY HX LUNG SURGERY HX Right 02/09/2024 right VATS Right Upper lobe Lung resection PAST SURGICAL HISTORY OF age 6 appendectomy, no rupture PAST SURGICAL HISTORY OF Right 09/2021 cyst removal from chest wall PT ED [facility]ASCULAR 2012 TONSILLECTOMY HX TONSILLECTOMY PRIMARY/SECONDARY <AGE 12 tonsillectomy ALLERGIES Allergen Reactions Penicillins Hives Current Outpatient Medications Medication Sig methocarbamol 1,000 mg tablet Take 1,000 mg by mouth four times daily. clopidogrel (PLAVIX) 75 mg tablet Take 75 mg by mouth. metoprolol tartrate, short acting, (LOPRESSOR) 25 mg tablet Take 25 mg by mouth two times a day. atorvastatin (LIPITOR) 80 mg tablet Take 1 tablet by mouth daily at bedtime. For cholesterol. Aspirin 81 mg Tab Take 81 mg by mouth once daily. amiodarone (PACERONE) 200 mg tablet TAKE 2 TABS BY MOUTH 2 TIMES DAILY X10 DAYS, THEN 2 TABS DAILY X7 DAYS, THEN 1 TAB DAILY X7 DAYS oxyCODONE IR (ROXICODONE) 5 mg immediate release tablet TAKE 1 TABLET (5 MG) BY MOUTH EVERY 6 HOURS NEEDED FOR SEVERE PAIN (7-10) FOR UP TO 7 DAYS. ezetimibe (ZETIA) 10 mg tablet Take 1 tablet by mouth once daily. (Patient not taking: Reported on 09/09/2024) iv contrast (will be provided with radiology test) CT Chest W -Inject, intravenously, once for 1 dose.No IV access, insert saline lock prior to the beginning of sedation, infusion, injection of imaging exam. Discontinue saline lock post exam. If Pt. has a central line or IVAD, may access for administration according to line specific nursing protocol. Once exam is complete flush line and de-access according to line specific nursing protocol in the CT contrast administration guidelines link. (Patient not taking: Reported on 05/01/2024) nitroglycerin sublingual (NITROQUICK) 0.4 mg SL tablet Dissolve 1 tablet under the tongue every 5 minutes as needed. (Patient not taking: Reported on 09/09/2024) No current facility-administered medications for this visit. Social History Tobacco Use Smoking status: Former Current packs/day: 0.00 Average packs/day: 1.5 packs/day for 25.0 years (37.5 ttl pk-yrs) Types: Cigarettes Start date: 01/24/1986 Quit date: 01/24/2011 Years since quittin.6 Smokeless tobacco: Never Vaping Use Vaping status: Never Used Substance Use Topics Alcohol use: Not Currently Drug use: Yes Types: Marijuana Comment: Twice a month Family History Problem Relation Age of Onset Breast Cancer Mother Heart Father details uncertain; ? h/o rheumatic fever Stroke Father details uncertain No Known Problems Brother No Known Problems Daughter No Known Problems Daughter No Known Problems Son No Known Problems Son No Known Problems Maternal Grandmother No Known Problems Maternal Grandfather No Known Problems Paternal Grandmother No Known Problems Paternal Grandfather Diabetes Other none Colon Cancer Other none Prostate Cancer Other none Anesthesia Problems No Family History ROS: All systems reviewed on 09/09/2024 with pertinent positives and negatives as outlined in the interval history. PHYSICAL EXAM: Vitals: Blood pressure 128/73, pulse 61, temperature 36.4 C (97.5 F), temperature source Temporal, weight 66.9 kg (147 lb 8 oz), SpO2 98%. Well-appearing and in no acute distress. EYES: Sclerae are anicteric bilaterally. LYMPHATIC: There is no palpable cervical, supraclavicular, axillary adenopathy. RESPIRATORY: Inspiratory breath sounds are of diminished intensity in all bermeo. No rales, wheezes or rhonchi. CARDIOVASCULAR: Rhythm is regular. Normal intensity S1/S2. There is no gallop or murmur. ABDOMEN: The abdomen is nondistended.No tenderness. Extremities: No swelling or edema. SKIN: No jaundice or rash. No petechiae. ASSESSMENT/PLAN: (C34.11) Malignant neoplasm of upper lobe of right lung (HCC) Assessment: -pT1b pN0 M0 stage IA2 acinar adenocarcinoma, grade 2 of the right upper lobe. -All margins negative. -9 lymph nodes including subcarinal all negative. -No visceral pleural invasion. -No adjuvant chemotherapy or radiation indicated. -Reviewed surveillance including CT chest with or without contrast every 6 months for 2 to 3 years then low-dose noncontrast enhanced CT chest annually. -CT pending today. Plan: -Labs then CT chest followed by OV in about 6 months. Advised to call with any questions or concerns in the meantime. Hakan Blackwell APRN.DISASTER RECOVERY MANAGER I spent a total of 30 minutes on the date of the service which included preparing to see the patient, [id number] patient care, completing clinical documentation, obtaining and/or reviewing separately obtained history, performing a medically appropriate examination, and ordering medications, tests, or procedures. Portions of this note including HPI, ROS, impression/plan may have been copied forward as to provide important historical information essential in contributing to medical decision making. Documentation has been reviewed and edited as necessary to support clinical decision making for today's visit and to reflect my own independent evaluation of this patient. documented in this encounter [facility] 09-06-2024 History of Presen t illness Narrative Radiology Service Progress Note DATE OF SERVICE: September 06, 2024 TIME: 3:58 PM PATIENT IDENTITY VERIFICATION COMPLETED USING TWO (2) STANDARD IDENTIFIERS: Name and Date of confirmed by patient verbally. FALL SCREENING: Has the patient had 2 falls in the last year or 1 fall with injury or currently using an Ambulatory Assistive Device (Walker, Cane, Wheelchair, Crutches, etc.)? No PATIENT GENDER DATA: Assigned male at PATIENT RELEVANT IMPLANT DATA REVIEWED: Yes PATIENT PRESENTS WITH AN IMPLANTABLE OR ATTACHED FIREFIGHTER: No ALLERGIES: Reviewed and unchanged CONTRAST ALLERGY: NO. EXAM: CT -CONTRAST INDUCED NEPHROPATHY RISK FACTORS: Patient age > 60 years CREATININE: Creatinine Date Value Ref Range Status 06/28/2024 0.97 0.73 - 1.22 mg/dL Final 02/10/2024 1.01 0.73 - 1.22 mg/dL Final 02/10/2024 0.86 0.73 - 1.22 mg/dL Final Estimated Glomerular Filtration Rate Date Value Ref Range Status 06/28/2024 85 >=60 mL/min/1.73m Final Comment: Estimated Glomerular Filtration Rate (eGFR) is calculated using the 2020 CKD-EPI creatinine equation. This equation utilizes serum creatinine, sex, and age as parameters. The creatinine assay has traceable calibration to isotope dilution-mass spectrometry. Refer to KDIGO guidelines for clinical interpretation. In patients with unstable renal function, e.g. those with acute kidney injury, the eGFR may not accurately reflect actual GFR. eGFR- Date Value Ref Range Status 12/07/2020 >60 Final P.O.C.T. RESULTS: POC done: Yes, See Lab Tab September 06, 2024 TREATMENT: N/A PERIPHERAL IV DATA: Ambulatory: A peripheral IV was started in the Left antecubital site with a Angio cath: 22 gauge. RADIOLOGY DEPARTMENT: CT; Exam(s) Completed: Chest SIGNATURE: LIZZIE Hardin) PATIENT NAME: Sharonda Flores DATE: September 06, 2024 TIME: 3:58 PM documented in this encounter [facility] 09-06-2024 Note HNO ID: [id number] Author: KYA RAMIREZ RT(R) Service: ? Author Type: Certified Diabetes Educator Type: Progress Notes Filed: 09/06/2024 15:58 Note Text: Radiology Service Progress Note DATE OF SERVICE: September 06, 2024 TIME: 3:58 PM PATIENT IDENTITY VERIFICATION COMPLETED USING TWO (2) STANDARD IDENTIFIERS: Name and Date of confirmed by patient verbally. FALL SCREENING: Has the patient had 2 falls in the last year or 1 fall with injury or currently using an Ambulatory Assistive Device (Walker, Cane, Wheelchair, Crutches, etc.)? No PATIENT GENDER DATA: Assigned male at PATIENT RELEVANT IMPLANT DATA REVIEWED: Yes PATIENT PRESENTS WITH AN IMPLANTABLE OR ATTACHED FIREFIGHTER: No ALLERGIES: Reviewed and unchanged CONTRAST ALLERGY: NO. EXAM: CT -CONTRAST INDUCED NEPHROPATHY RISK FACTORS: Patient age > 60 years CREATININE: Creatinine Date Value Ref Range Status 06/28/2024 0.97 0.73 - 1.22 mg/dL Final 02/10/2024 1.01 0.73 - 1.22 mg/dL Final 02/10/2024 0.86 0.73 - 1.22 mg/dL Final Estimated Glomerular Filtration Rate Date Value Ref Range Status 06/28/2024 85 >=60 mL/min/1.73m? Final Comment: Estimated Glomerular Filtration Rate (eGFR) is calculated using the 2020 CKD-EPI creatinine equation. This equation utilizes serum creatinine, sex, and age as parameters. The creatinine assay has traceable calibration to isotope dilution-mass spectrometry. Refer to KDIGO guidelines for clinical interpretation. In patients with unstable renal function, e.g. those with acute kidney injury, the eGFR may not accurately reflect actual GFR. eGFR- Date Value Ref Range Status 12/07/2020 >60 Final P.O.C.T. RESULTS: POC done: Yes, See Lab Tab September 06, 2024 TREATMENT: N/A PERIPHERAL IV DATA: Ambulatory: A peripheral IV was started in the Left antecubital site with a Angio cath: 22 gauge. RADIOLOGY DEPARTMENT: CT; Exam(s) Completed: Chest SIGNATURE: RT Lashawn(R) PATIENT NAME: Sharonda Flores DATE: September 06, 2024 TIME: 3:[address] [facility] 08-28-2024 History of Presen t illness Narrative Images from the original note were not included. [facility]: [facility] [address] [facility] [address] Dept: [phone] Dept Loc: [phone] Visit type: Established patient Reason for Visit: Follow-up Assessment and Plan 1. S/P CABG (coronary artery bypass graft) 2. Essential hypertension 3. Atrial fibrillation, unspecified type (HCC) 07/25/24: Dr. Martinez- CABG x3 (GREY-LAD, SVG-Diag, SVG-PDA), LAD endarterectomy LEVH, ZARI -hhc coming out, pt/nursing -incisions healing -reviewed meds -no acute issues noted -pain tolerable POD#34 Day from Discharge (07/31/24) #28 -Reviewed current meds: continue as prescribed. -Surgical Incisions: Per patient-healing appropriately, well approximated, no s/s of infection. -Physical therapy as outlined in discharge instructions.Ok to attend Cardiac Rehab and Ok to drive. -Acute Post-Operative Pain controlled. Patient no longer taking narcotic opioid medication. Tx plan: Over The Counter-Tylenol (acetaminophen) 500 mg 1-2 tablets every 6 hours. No more than 4,000 mg in 24 hour period, Over The Counter-Motrin (ibuprofen) 200-400 mg by mouth every 4-6 hours (or) 600-800mg every 8 hours. No more than 3,200 mg per day, Over The Counter-pain patches (Salon pas) may used as needed next to incision but not directly on your incision, and Ice packs applied for 20 minutes, then off for at least 20 minutes before reapplying. Weight restriction measures 1-4 weeks from date of surgery- 10lbs weight restriction: 5-8 weeks from date of surgery- 20lbs weight restriction: 9-12 weeks from date of surgery-30lbs weight restriction approximate end date: Disposition: Follow up in 2 weeks and PRN. Patient verbalized understanding of plan and stated they would call if any questions or concerns arise. Treatment Team: PCP: Tima Tello MD Patient was identified and seen today via Telehealth by agreement and consent. I used the following Telehealth technology: Audio capability only. Total length of call 10 minutes. The patient was offered and advised video for a more comprehensive evaluation, but the patient declined or was unable to use video. Patient location: Patient Location: Home. This patient encounter is appropriate and reasonable under the circumstances: recently assessed in person . The patient has been advised of the potential risks and limitations of this mode of treatment (including but not limited to the absence of in-person examination) and has agreed to be treated in a remote fashion in spite of them. Any and all of the patient's/patient's family's questions on this issue have been answered and I have made no promises or guarantees to the patient. The patient has also been advised to contact this office for worsening conditions or problems, and seek emergency medical treatment and/or call 911 if the patient deems either necessary. The patient stated that they are currently in the [place] [facility]. If the patient is a minor, permission has been obtained by the parent or guardian for the patient to receive medical care at this visit. Subjective HPI: Sharonda Flores is a 68 y.o. male referred by Dr. Tineo for CABG. Patient's PMHx includes CAD (s/p several PCI, most recently 2011 - LAD, LCx, distal RCA with known PHYSICIAN NON INVASIVE CARDIOLOGIST D2), preserved LVEF (65%), HTN, HLD, PAD (follows with vascular at [facility]), prior tobacco use, pulmonary nodules, adenocarcinoma s/p RUL lobectomy 01/2024 (follows with Pulmonology), and psoriasis. Patient had presented to [facility] ED with a sharp pain in the center of his chest with left shoulder ache. He had associated diaphoresis and nausea. EKG was normal.Troponin was WNL. Discharged and advised to follow up with Cardiology. A stress echocardiogram was ordered and completed on 06/25/24 which was abnormal. He then underwent a heart catheterization on 07/08/24 which demonstrated multivessel CAD. Seen by Dr. Martinez in OP setting, agreeable to CABG, scheduled for 07/25/24. Patient extubated as expected post-op, was on pressor support and transfused blood products. Weaned off of pressors by POD#1. Had brief runs of atrial fibrillation, loaded with amio without re-occurrence. Patient progressed well and was able to DC home on POD#06. 08/14/24: Patient presents to office for follow up. Overall he is doing well. He says he is having good days and bad days. He is getting around well. Pain is tolerable, with aches and pains in his neck, back and shoulders. Noted to have L shoulder pain prior to surgery. Seen orthopedics for L shoulder pain. Incisions healing well, surgical tape removed. Appetite has been poor, encouraged small meals throughout the day and increased protein intake. Reviewed provided vitals log. 08/28/24: Spoke with patient on phone for follow up. Continues to recover well. Per patient, incisions healing. Pain tolerable. No acute issues. Reviewed medications. Review of Systems Constitutional: Negative for chills, diaphoresis and fever. Respiratory: Negative for cough, shortness of breath and wheezing. Cardiovascular: Negative for chest pain, palpitations and leg swelling. Gastrointestinal: Negative for abdominal distention, abdominal pain, nausea and vomiting. Neurological: Negative for dizziness and light-headedness. Allergies Allergen Reactions Pcn [Penicillins] Rash Outpatient Medications Prior to Visit Medication Sig Dispense Refill acetaminophen (Tylenol) 500 MG tablet Take 2 tablets (1,000 mg) by mouth 3 times daily. 180 tablet 0 amiodarone (Pacerone) 200 MG tablet Take 2 tablets (400 mg) by mouth 2 times daily for 10 days, THEN 2 tablets (400 mg) daily for 7 days, THEN 1 tablet (200 mg) daily for 7 days. 61 tablet 0 aspirin 81 MG EC tablet Take 81 mg by mouth every morning (before breakfast). atorvastatin (Lipitor) 80 MG tablet Take 1 tablet (80 mg) by mouth every evening. 90 tablet 3 clopidogrel (Plavix) 75 MG tablet Take 1 tablet (75 mg) by mouth daily. 30 tablet 2 ezetimibe (Zetia) 10 MG tablet Take 10 mg by mouth every morning (before breakfast). methocarbamol 1000 MG tablet Take 1,000 mg by mouth every 8 hours as needed for muscle spasms for up to 14 days. 42 tablet 0 metoprolol tartrate (Lopressor) 25 MG tablet Take 1 tablet (25 mg) by mouth 2 times daily. 60 tablet 2 No facility-administered medications prior to visit. Past Medical History: Diagnosis Date Arrhythmia v-fib/ arrest CAD (coronary artery disease) Cancer (CMS/HCC) (HCC) LUNG UPPER RIGHT - SURGERY FOR REMOVAL 02/09/2024 Congenital heart disease Hyperlipidemia Hypertension [place], old 2011- [facility] Sleep apnea NO CPAP WORN Objective Patient reported: Failed to redirect to the Timeline version of the [employer] SmartLink. There were no vitals filed for this visit. Wt Readings from Last 3 Encounters: 07/31/24 158 lb (71.7 kg) 07/18/24 164 lb 2 oz (74.4 kg) 07/10/24 160 lb (72.6 kg) Physical exam deferred due to virtual visit-with audio (telephone) capabilities only. Data Reviewed and Summarized Labs/Imaging/Testing: reviewed EMR, see A&P for pertinent diagnostic results related to office visit SESAR Muniz CNP documented in this encounter [facility] 08-20-2024 Note 08/20/24 104 General Care Management Assessment completed with: Patient Enrolled in care management program: Yes Living arrangement: Alone Type of residence: Private residence Home care services: No Equipment used at home: None Communication device: Yes Bed or wheelchair confined: No Medication adherence problem: No Difficulty keeping appointments: No [facility] 08-20-2024 History of Presen t illness Narrative 08/20/24 104 General Care Management Assessment completed with: Patient Enrolled in care management program: Yes Living arrangement: Alone Type of residence: Private residence Home care services: No Equipment used at home: None Communication device: Yes Bed or wheelchair confined: No Medication adherence problem: No Difficulty keeping appointments: No 08/20/24 Community Health Worker Patient active with: [facility] Chart review completed. Follow up Appointments 08/28 Cardiothoracic Surgery Called patient and identified role and reason for call. Patient stated he knows he will be experiencing some pain, he noted he still handling the pain with Tylenol as prescribed. Denies shortness of breath and need of refills. He was reminded of weight restrictions and he acknowledged. Outreach scheduled Completed 08/20/24 by HEBERW 08/20/241926 [facility] Late Drop? Program late drop? No [facility] Outreach Assessment Selection Which outreach assessment are you completing? 21 Day [facility] - 21 Day Outreach Did patient answer phone call? Yes Have you noticed any negative changes in your condition? No Have you had any issues contacting your provider regarding any concerns? No Do you have any concerns with your medication(s)? No Any complications with post discharge services? No Any concerns with your DME equipment? No Are there any additional items you need? No Any questions about your condition you are unsure about that I can help clarify? No Reminded patient about 30 day window to re-admit to SNF/HHC if needed. Done documented in this encounter [facility] 08-16-2024 History of Presen t illness Narrative EMR reviewed. Patient enrolled in [facility] 90-day BPCI Program post-hospital discharge 07/31/24 DX-CABG x3 (GREY-LAD, SVG-Diag, SVG-PDA), LAD endarterectomy LEVH, ZARI on 07/25/24 (Dr. Martinez). 14-day outreach made unable to reach caller unavailable per teams. Spoke with patient last encounter. Patient had CTA post-op hospital follow up 08/14/24 notes copied below. Patient's incisions healing, VS log stable, cleared to drive with someone, continue current medications. RANULFO PT/OT, cardiac rehab referral once PT/OT C completed. -Acute Post-Operative Pain controlled. Patient no longer taking narcotic opioid medication. Tx plan: Over The Counter-Tylenol (acetaminophen) 500 mg 1-2 tablets every 6 hours. No more than 4,000 mg in 24 hour period, Over The Counter-Motrin (ibuprofen) 200-400 mg by mouth every 4-6 hours (or) 600-800mg every 8 hours. No more than 3,200 mg per day, Over The Counter-pain patches (Salon pas) may used as needed next to incision but not directly on your incision, and Ice packs applied for 20 minutes, then off for at least 20 minutes before reapplying. 2 week [place] [facility] [place] Future outreach scheduled. Weight restriction measures 1-4 weeks from date of surgery- 10lbs weight restriction: 5-8 weeks from date of surgery- 20lbs weight restriction: 9-12 weeks from date of surgery-30lbs weight restriction approximate end date: Reason for Visit: Follow-up 08/14/24 Assessment and Plan 1. S/P CABG (coronary artery bypass graft) 2. 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 Essential hypertension 4. Atrial fibrillation, unspecified type (HCC) 07/25/24: Dr. Martinez- CABG x3 (GREY-LAD, SVG-Diag, SVG-PDA), LAD endarterectomy LEVH, ZARI -Continue current medications. -Incisions healing well. -Reviewed vitals log, stable. -Okay to drive with someone. -Home Health nursing and PT/OT coming to house. -Will refer to Cardiac Rehab once Home Health completed. POD#20 Day from Discharge (07/31/24) #14 -Reviewed current meds: Continue. -Surgical Incisions: healing appropriately, well approximated, no s/s of infection. -Physical therapy as outlined in discharge instructions.Ok to drive and Not ready for Cardiac Rehab. -Acute Post-Operative Pain controlled. Patient no longer taking narcotic opioid medication. Tx plan: Over The Counter-Tylenol (acetaminophen) 500 mg 1-2 tablets every 6 hours. No more than 4,000 mg in 24 hour period, Over The Counter-Motrin (ibuprofen) 200-400 mg by mouth every 4-6 hours (or) 600-800mg every 8 hours. No more than 3,200 mg per day, Over The Counter-pain patches (Salon pas) may used as needed next to incision but not directly on your incision, and Ice packs applied for 20 minutes, then off for at least 20 minutes before reapplying. Weight restriction measures 1-4 weeks from date of surgery- 10lbs weight restriction: 5-8 weeks from date of surgery- 20lbs weight restriction: 9-12 weeks from date of surgery-30lbs weight restriction approximate end date: Disposition: 2 week phone call and PRN. Patient verbalized understanding of plan and stated they would call if any questions or concerns arise. Treatment Team: PCP: Ramya Galvez documented in this encounter [facility] 08-14-2024 History of Presen t illness Narrative Images from the original note were not included. [facility]: [facility] [address] [facility] [address] Dept: [phone] Dept Loc: [phone] Visit type: Established patient Reason for Visit: Follow-up Assessment and Plan 1. S/P CABG (coronary artery bypass graft) 2. 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 Essential hypertension 4. Atrial fibrillation, unspecified type (HCC) 07/25/24: Dr. Martinez- CABG x3 (GREY-LAD, SVG-Diag, SVG-PDA), LAD endarterectomy LEVH, ZARI -Continue current medications. -Incisions healing well. -Reviewed vitals log, stable. -Okay to drive with someone. -Home Health nursing and PT/OT coming to house. -Will refer to Cardiac Rehab once Home Health completed. POD#20 Day from Discharge (07/31/24) #14 -Reviewed current meds: Continue. -Surgical Incisions: healing appropriately, well approximated, no s/s of infection. -Physical therapy as outlined in discharge instructions.Ok to drive and Not ready for Cardiac Rehab. -Acute Post-Operative Pain controlled. Patient no longer taking narcotic opioid medication. Tx plan: Over The Counter-Tylenol (acetaminophen) 500 mg 1-2 tablets every 6 hours. No more than 4,000 mg in 24 hour period, Over The Counter-Motrin (ibuprofen) 200-400 mg by mouth every 4-6 hours (or) 600-800mg every 8 hours. No more than 3,200 mg per day, Over The Counter-pain patches (Salon pas) may used as needed next to incision but not directly on your incision, and Ice packs applied for 20 minutes, then off for at least 20 minutes before reapplying. Weight restriction measures 1-4 weeks from date of surgery- 10lbs weight restriction: 5-8 weeks from date of surgery- 20lbs weight restriction: 9-12 weeks from date of surgery-30lbs weight restriction approximate end date: Disposition: 2 week phone call and PRN. Patient verbalized understanding of plan and stated they would call if any questions or concerns arise. Treatment Team: PCP: Tima Tello MD Subjective HPI: Sharonda Flores is a 68 y.o. male referred by Dr. Tineo for CABG. Patient's PMHx includes CAD (s/p several PCI, most recently 2011 - LAD, LCx, distal RCA with known PHYSICIAN NON INVASIVE CARDIOLOGIST D2), preserved LVEF (65%), HTN, HLD, PAD (follows with vascular at [facility]), prior tobacco use, pulmonary nodules, adenocarcinoma s/p RUL lobectomy 01/2024 (follows with Pulmonology), and psoriasis. Patient had presented to [facility] ED with a sharp pain in the center of his chest with left shoulder ache. He had associated diaphoresis and nausea. EKG was normal.Troponin was WNL. Discharged and advised to follow up with Cardiology. A stress echocardiogram was ordered and completed on 06/25/24 which was abnormal. He then underwent a heart catheterization on 07/08/24 which demonstrated multivessel CAD. Seen by Dr. Martinez in OP setting, agreeable to CABG, scheduled for 07/25/24. Patient extubated as expected post-op, was on pressor support and transfused blood products. Weaned off of pressors by POD#1. Had brief runs of atrial fibrillation, loaded with amio without re-occurrence. Patient progressed well and was able to DC home on POD#06. 08/14/24: Patient presents to office for follow up. Overall he is doing well. He says he is having good days and bad days. He is getting around well. Pain is tolerable, with aches and pains in his neck, back and shoulders. Noted to have L shoulder pain prior to surgery. Seen orthopedics for L shoulder pain. Incisions healing well, surgical tape removed. Appetite has been poor, encouraged small meals throughout the day and increased protein intake. Reviewed provided vitals log. Review of Systems Constitutional: Positive for appetite change. Negative for chills, diaphoresis and fever. Respiratory: Positive for cough. Negative for shortness of breath and wheezing. Cardiovascular: Negative for palpitations and leg swelling. Gastrointestinal: Negative for abdominal distention, abdominal pain, nausea and vomiting. Neurological: Negative for dizziness and light-headedness. Allergies Allergen Reactions Pcn [Penicillins] Rash Outpatient Medications Prior to Visit Medication Sig Dispense Refill acetaminophen (Tylenol) 500 MG tablet Take 2 tablets (1,000 mg) by mouth 3 times daily. 180 tablet 0 amiodarone (Pacerone) 200 MG tablet Take 2 tablets (400 mg) by mouth 2 times daily for 10 days, THEN 2 tablets (400 mg) daily for 7 days, THEN 1 tablet (200 mg) daily for 7 days. 61 tablet 0 aspirin 81 MG EC tablet Take 81 mg by mouth every morning (before breakfast). atorvastatin (Lipitor) 80 MG tablet Take 1 tablet (80 mg) by mouth every evening. (Patient taking differently: Take 80 mg by mouth every morning (before breakfast).) 90 tablet 3 clopidogrel (Plavix) 75 MG tablet Take 1 tablet (75 mg) by mouth daily. 30 tablet 2 ezetimibe (Zetia) 10 MG tablet Take 10 mg by mouth every morning (before breakfast). methocarbamol 1000 MG tablet Take 1,000 mg by mouth every 8 hours as needed for muscle spasms for up to 14 days. 42 tablet 0 metoprolol tartrate (Lopressor) 25 MG tablet Take 1 tablet (25 mg) by mouth 2 times daily. 60 tablet 2 No facility-administered medications prior to visit. Past Medical History: Diagnosis Date Arrhythmia v-fib/ arrest CAD (coronary artery disease) Cancer (CMS/HCC) (HCC) LUNG UPPER RIGHT - SURGERY FOR REMOVAL 02/09/2024 Congenital heart disease Hyperlipidemia Hypertension [place], old 2011- [facility] Sleep apnea NO CPAP WORN Objective Patient reported: Failed to redirect to the Timeline version of the [employer] SmartLink. Vitals: 08/14/24 1121 BP: 100/61 Pulse: 72 Wt Readings from Last 3 Encounters: 07/31/24 158 lb (71.7 kg) 07/18/24 164 lb 2 oz (74.4 kg) 07/10/24 160 lb (72.6 kg) Physical Exam Cardiovascular: Rate and Rhythm: Normal rate and regular rhythm. Pulses: Normal pulses. Heart sounds: No murmur heard. Pulmonary: Effort: Pulmonary effort is normal. Breath sounds: No wheezing, rhonchi or rales. Musculoskeletal: Right lower leg: No edema. Left lower leg: No edema. Skin: General: Skin is warm and dry. Comments: Surgical incisions healing well. No redness, warmth or drainage noted. Data Reviewed and Summarized Labs/Imaging/Testing: reviewed EMR, see A&P for pertinent diagnostic results related to office visit Yara Flowers APRN - DISASTER RECOVERY MANAGER documented in this encounter [facility] 08-12-2024 Note HNO ID: [id number] Author: NAN NG PA-C Service: ? Author Type: Physician Healthcare Manager Type: Progress Notes Filed: 08/12/2024 15:37 Note Text: Nan Ng PA-C Department of Orthopaedics Orthopaedics [address] [place] [id number] Dept: [phone] Dept August 12, 2024 CHIEF COMPLAINT: New, Pain, and Numbness of the Left Shoulder Mr. Sharonda Flores is a 69 year old male who presents with worsening pain in his left shoulder. He tells me that he dislocated the shoulder in the , since the incident he has had some intermittent discomfort in the shoulder which did respond well to previous corticosteroid injections. The patient unfortunately had a recent coronary artery bypass about 2 weeks ago. Shortly after surgery he started having increased pain in his left shoulder. Pain was better with the pain was better with the narcotic pain medication he was taking following his CABG. Pain radiates down the arm and he does report some numbness in his left index finger. Patient reports that he was seen by a provider at the [facility] for his shoulder prior to his CABG, he was referred to physical therapy but was not able to start the therapy as he had surgery. ASSESSMENT: M50.30 DDD (degenerative disc disease), cervical (primary encounter diagnosis) M25.512, G89.29 Chronic left shoulder pain PLAN: The patient certainly has some degenerative changes in the shoulder region (AC) though most of his complaints sound like they may be radicular in nature. We discussed getting some cervical films today and then getting him into some physical therapy for his cervical spine. Cannot obtain EMG at this time because of anticoagulant. Will continue to monitor patient for Ddd (degenerative disc disease), cervical (primary encounter diagnosis) Chronic left shoulder pain, patient to schedule visit as per follow up discussed. Mr. Sharonda Flores was advised as to contrast therapies and/or to take analgesics/anti-inflammatories as needed and all contraindications were reviewed. OBJECTIVE: Mr. Sharonda Flores is a pleasant 69 year old in no apparent distress. Gen:There were no vitals taken for this visit. nl development, obese, no deformities ENT: Normocephalic, normal hearing, moist mucosa CV: Pulses:Radial= 2+ and symmetric, capillary refill < 2 secs, no peripheral edema/varicosities Skin: no rash, bruising or lesions. Good turgor. Psych: cooperative and appropriate, alert and oriented x 3, good mood and affect. Musculoskeletal: Reduced range of motion of the cervical spine without pain. Spurling signs are negative. No atrophy of the deltoid and shoulder musculature. Left shoulder is tender to palpation over the SC joint, clavicle and AC joint. mild tenderness to palpation over the posterior shoulder, non tender at the anterior lateral corner of the shoulder and greater tuberosity. Non tender at the bicipital groove and coracoid. Active range of motion is limited by chest wall pain. negative Neer and positive Baumann impingement signs. Strength testing not preformed. Subjective numbness in the left index finger. Imaging: IMPRESSION: Sclerotic appearance of the odontoid process of C2. Etiology uncertain. This can be due to previous trauma. Clinical correlation Security Business Analyst: BETTY Transcribe Date/Time: Aug 12 2024 1:43P Dictated by : ERICA LOPEZ DO This examination was interpreted and the report reviewed and electronically signed by: ERICA LOPEZ DO on Aug 12 2024 1:45PM EST Results-Findings * * *Final Report* * * DATE OF EXAM: Aug 12 2024 12:23PM [id number] - XR CERVICAL 4V AP/LAT/OBL / PROCEDURE REASON: DDD (degenerative disc disease), cervical * * * * Physician Interpretation * * * * Cervical spine: HISTORY: Indication: DDD (degenerative disc disease), cervical PT STATES LEFT SHOULDER PAIN WITHOUT INJURY PT STATES LEFT SHOULDER PAIN WITHOUT INJURY TECHNIQUE: Views obtained: XR CERVICAL 4V AP/LAT/OBL Comparison: None. RESULT: Findings: There are sclerotic appearance of the odontoid noted. Disk spaces: Well-preserved. Spine alignment: The vertebra are in good alignment. No fractures or dislocations are seen. IMPRESSION: Findings as discussed under Results.. Security Business Analyst: BETTY Transcribe Date/Time: Aug 12 2024 1:42P Dictated by : ERICA LOPEZ DO This examination was interpreted and the report reviewed and electronically signed by: ERICA LOPEZ DO on Aug 12 2024 1:43PM EST Results-Findings * * *Final Report* * * DATE OF EXAM: Aug 12 2024 11:00AM [id number] - XR SHLDR >/=3V AP/LIZBET AP/OTHR LT / PROCEDURE REASON: Pain * * * * Physician Interpretation * * * * EXAM(s): XR SHLDR >/=3V AP/LIZBET AP/OTHR LT EXAM DATE/TIME: 08/12/2024 11:00 AM HISTORY: 69 years old Clinical information: Pain PT STATES LEFT SHOULDER PAIN NO INJURY TECHNIQUE: (more content not included)... [facility] 08-12-2024 History of Presen t illness Narrative Nan Ng PA-C Department of Orthopaedics Orthopaedics [address] [facility] [address] Dept: [phone] Dept August 12, 2024 CHIEF COMPLAINT: New, Pain, and Numbness of the Left Shoulder Mr. Sharonda Flores is a 69 year old male who presents with worsening pain in his left shoulder. He tells me that he dislocated the shoulder in the 1980s, since the incident he has had some intermittent discomfort in the shoulder which did respond well to previous corticosteroid injections. The patient unfortunately had a recent coronary artery bypass about 2 weeks ago. Shortly after surgery he started having increased pain in his left shoulder. Pain was better with the pain was better with the narcotic pain medication he was taking following his CABG. Pain radiates down the arm and he does report some numbness in his left index finger. Patient reports that he was seen by a provider at the [facility] for his shoulder prior to his CABG, he was referred to physical therapy but was not able to start the therapy as he had surgery. ASSESSMENT: M50.30 DDD (degenerative disc disease), cervical (primary encounter diagnosis) M25.512, G89.29 Chronic left shoulder pain PLAN: The patient certainly has some degenerative changes in the shoulder region (AC) though most of his complaints sound like they may be radicular in nature. We discussed getting some cervical films today and then getting him into some physical therapy for his cervical spine. Cannot obtain EMG at this time because of anticoagulant. Will continue to monitor patient for Ddd (degenerative disc disease), cervical (primary encounter diagnosis) Chronic left shoulder pain, patient to schedule visit as per follow up discussed. Mr. Sharonda Flores was advised as to contrast therapies and/or to take analgesics/anti-inflammatories as needed and all contraindications were reviewed. OBJECTIVE: Mr. Sharonda Flores is a pleasant 69 year old in no apparent distress. Gen:There were no vitals taken for this visit. nl development, obese, no deformities ENT: Normocephalic, normal hearing, moist mucosa CV: Pulses:Radial= 2+ and symmetric, capillary refill < 2 secs, no peripheral edema/varicosities Skin: no rash, bruising or lesions. Good turgor. Psych: cooperative and appropriate, alert and oriented x 3, good mood and affect. Musculoskeletal: Reduced range of motion of the cervical spine without pain. Spurling signs are negative. No atrophy of the deltoid and shoulder musculature. Left shoulder is tender to palpation over the SC joint, clavicle and AC joint. mild tenderness to palpation over the posterior shoulder, non tender at the anterior lateral corner of the shoulder and greater tuberosity. Non tender at the bicipital groove and coracoid. Active range of motion is limited by chest wall pain. negative Neer and positive Baumann impingement signs. Strength testing not preformed. Subjective numbness in the left index finger. Imaging: IMPRESSION: Sclerotic appearance of the odontoid process of C2. Etiology uncertain. This can be due to previous trauma. Clinical correlation Security Business Analyst: BETTY Transcribe Date/Time: Aug 12 2024 1:43P Dictated by : ERICA LOPEZ DO This examination was interpreted and the report reviewed and electronically signed by: ERICA LOPEZ DO on Aug 12 2024 1:45PM EST Results-Findings * * *Final Report* * * DATE OF EXAM: Aug 12 2024 12:23PM [id number] - XR CERVICAL 4V AP/LAT/OBL / PROCEDURE REASON: DDD (degenerative disc disease), cervical * * * * Physician Interpretation * * * * Cervical spine: HISTORY: Indication: DDD (degenerative disc disease), cervical PT STATES LEFT SHOULDER PAIN WITHOUT INJURY PT STATES LEFT SHOULDER PAIN WITHOUT INJURY TECHNIQUE: Views obtained: XR CERVICAL 4V AP/LAT/OBL Comparison: None. RESULT: Findings: There are sclerotic appearance of the odontoid noted. Disk spaces: Well-preserved. Spine alignment: The vertebra are in good alignment. No fractures or dislocations are seen. IMPRESSION: Findings as discussed under Results.. Security Business Analyst: BETTY Transcribe Date/Time: Aug 12 2024 1:42P Dictated by : ERICA LOPEZ DO This examination was interpreted and the report reviewed and electronically signed by: ERICA LOPEZ DO on Aug 12 2024 1:43PM EST Results-Findings * * *Final Report* * * DATE OF EXAM: Aug 12 2024 11:00AM [id number] - XR SHLDR >/=3V AP/LIZBET AP/OTHR LT / PROCEDURE REASON: Pain * * * * Physician Interpretation * * * * EXAM(s): XR SHLDR >/=3V AP/LIZBET AP/OTHR LT EXAM DATE/TIME: 08/12/2024 11:00 AM HISTORY: 69 years old Clinical information: Pain PT STATES LEFT SHOULDER PAIN NO INJURY TECHNIQUE: Images: XR SHLDR >/=3V AP/LIZBET AP/OTHR LT Comparison: None. RESULT: Findings: The AC joint is well maintained.. The glenohumeral joint is well maintained. The acromiohumeral interval appears mildly decreased Supporting Subjective Information Below: Past Surgical History: PAST SURGICAL HISTORY Procedure Laterality Date COLONOSCOPY FLX DX W/COLLJ SPEC WHEN PFRMD 10/08/2008 Colonoscopy COLONOSCOPY FLX DX W/COLLJ SPEC WHEN PFRMD 08/03/2021 repeat in 10 years EXTRACTION, ERUPTED TOOTH OR EXPOSED ROOT (ELEVATION AND/OR FORCEPS REMOVAL) [facility] HEART CATHETERIZATION 2012 stent x 4 HEART SURGERY HX LUNG SURGERY HX Right 02/09/2024 right VATS Right Upper lobe Lung resection PAST SURGICAL HISTORY OF age 6 appendectomy, no rupture PAST SURGICAL HISTORY OF Right 09/2021 cyst removal from chest wall PT ED HEART AND VASCULAR 2012 TONSILLECTOMY HX TONSILLECTOMY PRIMARY/SECONDARY <AGE 12 tonsillectomy Medications: Current Outpatient Medications Medication Sig acetaminophen (TYLENOL) 500 mg tablet Take 1,000 mg by mouth. amiodarone (PACERONE) 200 mg tablet TAKE 2 TABS BY MOUTH 2 TIMES DAILY X10 DAYS, THEN 2 TABS DAILY X7 DAYS, THEN 1 TAB DAILY X7 DAYS clopidogrel (PLAVIX) 75 mg tablet Take 75 mg by mouth. methocarbamol 1,000 mg tablet Take 1,000 mg by mouth three times a day as needed. metoprolol tartrate, short acting, (LOPRESSOR) 25 mg tablet Take 25 mg by mouth. oxyCODONE IR (ROXICODONE) 5 mg immediate release tablet TAKE 1 TABLET (5 MG) BY MOUTH EVERY 6 HOURS NEEDED FOR SEVERE PAIN (7-10) FOR UP TO 7 DAYS. ezetimibe (ZETIA) 10 mg tablet Take 1 tablet by mouth once daily. atorvastatin (LIPITOR) 80 mg tablet Take 1 tablet by mouth daily at bedtime. For cholesterol. nitroglycerin sublingual (NITROQUICK) 0.4 mg SL tablet Dissolve 1 tablet under the tongue every 5 minutes as needed. Aspirin 81 mg Tab Take 81 mg by mouth once daily. iv contrast (will be provided with radiology test) CT Chest W -Inject, intravenously, once for 1 dose.No IV access, insert saline lock prior to the beginning of sedation, infusion, injection of imaging exam. Discontinue saline lock post exam. If Pt. has a central line or IVAD, may access for administration according to line specific nursing protocol. Once exam is complete flush line and de-access according to line specific nursing protocol in the CT contrast administration guidelines link. (Patient not taking: Reported on 05/01/2024) No current facility-administered medications for this visit. Allergies: Penicillins ROS: General (negative for fatigue, malaise, weight loss/gain) HEENT (negative for headache, earache, recent vision changes, sinus pain, sore throat) Respiratory (no recent shortness of breath, hemoptysis) CV (negative for chest tightness, palpitations) Musculoskeletal (see HPI) Psych (no depression, anxiety) This note was partially generated using Tune[employer] voice recognition system, and there may be some incorrect words, spellings, and punctuation that were not noted in checking the note before saving. Nan Ng PA-C AMB ROOMING INTAKE FLOWSHEET DATA Pain Pain Level: 10 Pain Location: Shoulder-Left Description: Aching, Sore Duration Amount of Time: 7 Duration Units: Months Frequency: Intermittent Intervention/Comfort measure: Reposition, Relaxation Patient presents with: Left Shoulder - New, Pain, Numbness Tianna Rachel LPN documented in this encounter [facility] 08-12-2024 Note HNO ID: [id number] Author: TIANNA RACHEL LPN Service: ? Author Type: LICENSED NURSE Type: Progress Notes Filed: 08/12/2024 15:37 Note Text: AMB ROOMING INTAKE FLOWSHEET DATA Pain Pain Level: 10 Pain Location: Shoulder-Left Description: Aching, Sore Duration Amount of Time: 7 Duration Units: Months Frequency: Intermittent Intervention/Comfort measure: Reposition, Relaxation Patient presents with: Left Shoulder - New, Pain, Numbness Tianna Rachel LPN [facility] 08-12-2024 History of Presen t illness Narrative Radiology Service Progress Note PATIENT NAME: Sharonda Flores DATE OF SERVICE: August 12, 2024 TIME: 9:35 PM PATIENT IDENTITY VERIFICATION COMPLETED USING TWO (2) IDENTIFIERS: Name and Date of confirmed by patient verbally. FALL SCREENING: Has the patient had 2 falls in the last year or 1 fall with injury or currently using an Ambulatory Assistive Device (Walker, Cane, Wheelchair, Crutches, etc.)? No PATIENT GENDER DATA: Assigned male at PATIENT RELEVANT IMPLANT DATA REVIEWED: Not Applicable PATIENT PRESENTS WITH AN IMPLANTABLE OR ATTACHED FIREFIGHTER: No RADIOLOGY DEPARTMENT: General X-ray: Exam(s) Completed: Spine X-Ray(s): Cervical AP / LAT / OBL Upper Extremity X-Ray(s): Shoulder, AP / TRUE AP / AXILLARY left PERIPHERAL IV DATA: Not applicable SIGNED BY: RT Maurice(Bruno) August 12, 2024 9:35 PM documented in this encounter [facility] 08-12-2024 Note HNO ID: [id number] Author: SHAYLEE WALTERS RT(R) Service: ? Author Type: Technologist Type: Progress Notes Filed: 08/12/2024 21:35 Note Text: Radiology Service Progress Note PATIENT NAME: Sharonda Flores DATE OF SERVICE: August 12, 2024 TIME: 9:35 PM PATIENT IDENTITY VERIFICATION COMPLETED USING TWO (2) IDENTIFIERS: Name and Date of confirmed by patient verbally. FALL SCREENING: Has the patient had 2 falls in the last year or 1 fall with injury or currently using an Ambulatory Assistive Device (Walker, Cane, Wheelchair, Crutches, etc.)? No PATIENT GENDER DATA: Assigned male at PATIENT RELEVANT IMPLANT DATA REVIEWED: Not Applicable PATIENT PRESENTS WITH AN IMPLANTABLE OR ATTACHED FIREFIGHTER: No RADIOLOGY DEPARTMENT: General X-ray: Exam(s) Completed: Spine X-Ray(s): Cervical AP / LAT / OBL Upper Extremity X-Ray(s): Shoulder, AP / TRUE AP / AXILLARY left PERIPHERAL IV DATA: Not applicable SIGNED BY: RT Maurice(R) August 12, 2024 9:[address] [facility] 08-07-2024 Telephone encounter Note Message released to patient as written. Patient's further questions if applicable: N/A Were all questions from office addressed or relayed to the patient from encounter: Yes [facility] 08-07-2024 Miscellaneous Notes Message released to patient as written. Patient's further questions if applicable: N/A Were all questions from office addressed or relayed to the patient from encounter: Yes Keep scheduled appointment. Agree with instructions given. Pt s/p CABG x3, LAD endarterectomy ZARI KUNZ on 07/25/[address] Martinez. Received call from home health nurse Lisbeth reporting that patient's BP was elevated today, 151/75. Spoke with patient who states he has not been checking his BP since discharge, so no log to review. Patient reports he is taking all medications as prescribed, denies any symptoms at this time, but wanted to report that he had an episode of stabbing midsternal chest pain yesterday that lasted for a few seconds and resolved on its own. Pt states he was sitting at the time this occurred. Patient is scheduled for post op appt on 08/14/24 with RAMAN Roper. Advised patient to start keeping a BP log, and that he should go to the ER/call 911 or call the office if it occurs again, or any new symptoms appear. Patient is asking if he should be seen for a sooner appointment, or keep scheduled appt. Any further instruction or orders to add? documented in this encounter [facility] 08-07-2024 Telephone encounter Note Keep scheduled appointment. Agree with instructions given. [facility] Phone: 08-06-2024 Telephone encounter Note Pt s/p CABG x3, LAD endarterectomy ZARI KUNZ on 07/25/[address] Martinez. Received call from home health nurse Lisbeth reporting that patient's BP was elevated today, 151/75. Spoke with patient who states he has not been checking his BP since discharge, so no log to review. Patient reports he is taking all medications as prescribed, denies any symptoms at this time, but wanted to report that he had an episode of stabbing midsternal chest pain yesterday that lasted for a few seconds and resolved on its own. Pt states he was sitting at the time this occurred. Patient is scheduled for post op appt on 08/14/24 with RAMAN Roper. Advised patient to start keeping a BP log, and that he should go to the ER/call 911 or call the office if it occurs again, or any new symptoms appear. Patient is asking if he should be seen for a sooner appointment, or keep scheduled appt. Any further instruction or orders to add? [facility] 07-31-2024 Nurse Note 1130- Discharge instructions reviewed with patient including but not limited to medications, follow up appointments, diet, limitations. Patient take by wheelchair to waiting vehicle with brother. [facility] 07-31-2024 Nurse Note 1130- Discharge instructions reviewed with patient including but not limited to medications, follow up appointments, diet, limitations. Patient take by wheelchair to waiting vehicle with brother. Summary of day shift - Patient ambulated unit 3 times independently during shift; positive for BM; intermittent c/o chest pain treated with PRN meds and rest; patient did not eat much (doesn't care for food selections). Did drink Ensure. Patient anticipating discharge to home tomorrow. documented in this encounter [facility] 07-31-2024 Plan of care note Problem: Pain - Adult Goal: Verbalizes/displays adequate comfort level or baseline comfort level Outcome: Completed Problem: Safety - Adult Goal: Free from fall injury Outcome: Completed Problem: Discharge Planning Goal: Discharge to home or other facility with appropriate resources Outcome: Completed Problem: Chronic Conditions and Co-morbidities Goal: Patient's chronic conditions and co-morbidity symptoms are monitored and maintained or improved Outcome: Completed Problem: Knowledge Deficit Goal: Patient/family/caregiver demonstrates understanding of disease process, treatment plan, medications, and discharge instructions Outcome: Completed Problem: Potential for Compromised Skin Integrity Goal: Skin Integrity is Maintained or Improved Outcome: Completed Goal: Nutritional status is improving Outcome: Completed Problem: Urinary Incontinence Goal: Perineal skin integrity is maintained or improved Outcome: Completed Problem: Problem Interventions Goal: Assess Nutritional Intake Outcome: Completed [facility] 07-31-2024 Miscellaneous Notes Problem: Pain - Adult Goal: Verbalizes/displays adequate comfort level or baseline comfort level Outcome: Completed Problem: Safety - Adult Goal: Free from fall injury Outcome: Completed Problem: Discharge Planning Goal: Discharge to home or other facility with appropriate resources Outcome: Completed Problem: Chronic Conditions and Co-morbidities Goal: Patient's chronic conditions and co-morbidity symptoms are monitored and maintained or improved Outcome: Completed Problem: Knowledge Deficit Goal: Patient/family/caregiver demonstrates understanding of disease process, treatment plan, medications, and discharge instructions Outcome: Completed Problem: Potential for Compromised Skin Integrity Goal: Skin Integrity is Maintained or Improved Outcome: Completed Goal: Nutritional status is improving Outcome: Completed Problem: Urinary Incontinence Goal: Perineal skin integrity is maintained or improved Outcome: Completed Problem: Problem Interventions Goal: Assess Nutritional Intake Outcome: Completed [facility] notified of discharge home today. Patient Choice Patient Name: SHARONDA FLORES Date of : 1955 All Providers Sent Referral Name: [facility] [place] Phone: [phone] Address: [address] [place] [address] Start PACC Note Home Health Referral Educated patient on Home Care and services available. Patient offered choice of available HHC and agreeable to SN/PT services with [facility]. Care Types: None Isolation Precautions: No active isolations Social Determinates of Health: Tobacco Use: Medium Risk (07/25/2024) Patient History Smoking Tobacco Use: Former Smokeless Tobacco Use: Former Passive Exposure: Not on file Social History Substance and Sexual Activity Alcohol Use No Social History Substance and Sexual Activity Drug Use No Does the patient have any financial resource strain? No Does the patient have any food insecurities? No Does the patient have any housing instabilities? No If any of the above is noted as yes - consider a BUTTONHOLE TACKER evaluation once the patient returns home. START PATIENT REGISTRATION INFORMATION Order Information Order Signing Physician: Brooklynn Martinez DO Service Ordered RN ?: Yes Service Ordered PT ?: Yes Service Ordered OT ?: No Service Ordered ST ?: No Service Ordered BUTTONHOLE TACKER?:No Service Ordered GAS ANALYST?: No Following Physician: Brooklynn Martinez DO Following Physician Overseeing Physician: Brooklynn Martinez DO (Required for Residents only) Agreeable to Follow? Yes Date/Time of Call 07/30/24 12:18 PM, Spoke with: kira alarconcourbano Care Coordination Same Day SOC?: No Primary Care Physician: Tima Tello MD Primary Care Physician Primary Care Physician Address: [address] [place] [address] Visit Instructions: N/A Service Discharge Location Type: Home with Home Care Service Facility Name: N/A Service Floor Facility: N/A Service Room No: N/A Demographics Patient Last Name: Mark Patient First Name: Sharonda Language/Communication Barrier: no Service Address: [address] Service City: [place] Service ST: [place] Service ZIP: [phone] Service Other phone numbers: Telephone Information: Emergency Contact: Extended Emergency Contact Information Primary Emergency Contact: Douglas Flores Address: 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 Do you have any upper respiratory symptoms (cough, SOB, Fever)? No 2. Have you been exposed to anyone with COVID-19 Virus? No Answer only if pending or positive for COVID-19? 1. Agreeable to wear PPE at each visit? No 2. Is the hospital supplying them with PPE upon Discharge? No Start PACC Summary General Report/ Additional Comments Wound care/dressing changes: -Surgical incisions leave open to air, cleanse daily with mild soap & warm water, pat dry, no lotion or powders on incision. -Surgical tape/dsg removal 10 days from surgery date Respiratory Care: -Cough and Deep Breath; Use incentive spirometry 10 times every hour while awake for 2 weeks. Additional Orders: -Sternal precautions (no lifting, pushing, pulling >10 lbs) for 6 weeks-use heart pillow -Vitals per home health protocol-call for fever and chills -Daily weights- call for weight gain: 2-3lbs in one day; 5lbs in 3 days. -Wear TEDs during day and off at night. Lab Work: -If Diabetic: blood glucose testing as directed by PCP/Industrial Therapist -For recent heart surgery if patient discharged on Coumadin verify need for INR draw on visit. Activity/Weight Bearing: -Up with assistance: up in chair for all meals, ambulate 3-4 times a day -Stretching exercises per PT discharge instructions Discharge Date: pending Referral Source-PACC: (Hospital/Unit): [facility] / T1-109/T1-109 A End PACC Note Problem: Pain - Adult Goal: Verbalizes/displays adequate comfort level or baseline comfort level 07/30/2024 1906 by Anisa Awad RN Outcome: Progressing 07/30/2024 0933 by Anisa Awad RN Outcome: Progressing Problem: Safety - Adult Goal: Free from fall injury 07/30/20241905 by Anisa Awad RN Outcome: Progressing 07/30/2024932 by Anisa Awad RN Outcome: Progressing Problem: Discharge Planning Goal: Discharge to home or other facility with appropriate resources 07/30/20241905 by Anisa Awad RN Outcome: Progressing 07/30/2024 09 by Anisa Awad RN Outcome: Progressing Problem: Chronic Conditions and Co-morbidities Goal: Patient's chronic conditions and co-morbidity symptoms are monitored and maintained or improved 07/30/20241905 by Anisa Awad RN Outcome: Progressing 07/30/2024932 by Anisa Awad RN Outcome: Progressing Problem: Knowledge Deficit Goal: Patient/family/caregiver demonstrates understanding of disease process, treatment plan, medications, and discharge instructions 07/30/20241905 by Anisa Awad RN Outcome: Progressing 07/30/2024932 by Anisa Awad RN Outcome: Progressing Problem: Potential for Compromised Skin Integrity Goal: Skin Integrity is Maintained or Improved 07/30/20241905 by Anisa Awad RN Outcome: Progressing 07/30/2024932 by Anisa Awad RN Outcome: Progressing Goal: Nutritional status is improving 07/30/20241905 by Anisa Awad RN Outcome: Progressing 07/30/2024932 by Anisa Awad RN Outcome: Progressing Problem: Urinary Incontinence Goal: Perineal skin integrity is maintained or improved 07/30/20241905 by Anisa Awad RN Outcome: Progressing 07/30/2024 0933 by Anisa Awad RN Outcome: Progressing Problem: Problem Interventions Goal: Assess Nutritional Intake 07/30/20241905 by Anisa Awad RN Outcome: Progressing 07/30/2024932 by Anisa Awad RN Outcome: Progressing Problem: Pain - Adult Goal: Verbalizes/displays adequate comfort level or baseline comfort level Outcome: Progressing Problem: Safety - Adult Goal: Free from fall injury Outcome: Progressing Problem: Discharge Planning Goal: Discharge to home or other facility with appropriate resources Outcome: Progressing Problem: Chronic Conditions and Co-morbidities Goal: Patient's chronic conditions and co-morbidity symptoms are monitored and maintained or improved Outcome: Progressing Problem: Knowledge Deficit Goal: Patient/family/caregiver demonstrates understanding of disease process, treatment plan, medications, and discharge instructions Outcome: Progressing Problem: Potential for Compromised Skin Integrity Goal: Skin Integrity is Maintained or Improved Outcome: Progressing Goal: Nutritional status is improving Outcome: Progressing Problem: Urinary Incontinence Goal: Perineal skin integrity is maintained or improved Outcome: Progressing Problem: Problem Interventions Goal: Assess Nutritional Intake Outcome: Progressing Care Management Progress Note Patient remains in [facility] ICU s/p CABG x 3 POD # 5. Episodes of Afib overnight, plan for Amio bolus and drip x 24 hr. Hopefully for dc tomorrow. DCP-home with RANULFO [facility]ro following Length of Stay (Days): 5 GMLOS: 8.1 Problem: Pain - Adult Goal: Verbalizes/displays adequate comfort level or baseline comfort level Outcome: Progressing Problem: Safety - Adult Goal: Free from fall injury Outcome: Progressing Problem: Discharge Planning Goal: Discharge to home or other facility with appropriate resources Outcome: Progressing Problem: Chronic Conditions and Co-morbidities Goal: Patient's chronic conditions and co-morbidity symptoms are monitored and maintained or improved Outcome: Progressing Problem: Knowledge Deficit Goal: Patient/family/caregiver demonstrates understanding of disease process, treatment plan, medications, and discharge instructions Outcome: Progressing Problem: Potential for Compromised Skin Integrity Goal: Skin Integrity is Maintained or Improved Outcome: Progressing Goal: Nutritional status is improving Outcome: Progressing Problem: Urinary Incontinence Goal: Perineal skin integrity is maintained or improved Outcome: Progressing Problem: Problem Interventions Goal: Assess Nutritional Intake Outcome: Progressing Problem: Pain - Adult Goal: Verbalizes/displays adequate comfort level or baseline comfort level Outcome: Progressing Problem: Safety - Adult Goal: Free from fall injury Outcome: Progressing Problem: Discharge Planning Goal: Discharge to home or other facility with appropriate resources Outcome: Progressing Problem: Chronic Conditions and Co-morbidities Goal: Patient's chronic conditions and co-morbidity symptoms are monitored and maintained or improved Outcome: Progressing Problem: Knowledge Deficit Goal: Patient/family/caregiver demonstrates understanding of disease process, treatment plan, medications, and discharge instructions Outcome: Progressing Problem: Potential for Compromised Skin Integrity Goal: Skin Integrity is Maintained or Improved Outcome: Progressing Goal: Nutritional status is improving Outcome: Progressing Problem: Urinary Incontinence Goal: Perineal skin integrity is maintained or improved Outcome: Progressing Problem: Problem Interventions Goal: Assess Nutritional Intake Outcome: Progressing 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 Patient admitted to [facility] ICU s/p CABG x 3 POD # 1. Patient from home alone, is independent, has PCP and prescription coverage. Met with patient at bedside, introduced self and role. Patient agreeable to discharge plan of home with [facility], but does not have anyone to stay with him nor does he plan to stay with anyone. Referral to [facility] for home care. Cardiothoracic Surgery Operative Report Date: 07/25/24 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 Fredi Buchanan Heel Cementer Machine: Jazmyn Rodgers Total IV fluids: See anesthesia and perfusion record Blood Transfusion?: None Drains/wires: Chest tube x 2; ventricular pacing wires Complications: None INDICATIONS FOR SURGERY: This is a 69 year-old male who was seen as an outpatient for coronary disease. Left heart catheter revealed multivessel disease. The above procedure was offered to him. The risks benefits and alternatives were explained in detail and he agreed to proceed. Findings: The mammary artery is a good conduit with excellent flows. The saphenous vein is about 4 mm and adequate for use as a conduit. The left anterior descending is stented all the way down to the distal portion which is the only place suitable for placement of the bypass. It is still very calcified and thickened there. A small endarterectomy was required. It is about 1 mm at the point of bypass. The patient was weaned from cardiopulmonary bypass with no inotropic support needed. Myocardial function is preserved on ZARI. Cardiopulmonary bypass time 111 minutes. Aortic cross-clamp time 96 minutes. DESCRIPTION OF PROCEDURE: The patient was brought to the operative suite and placed in supine position on the operative table. General anesthesia was administered. All appropriate lines and tubes were placed. His torso and lower extremities were then prepped and draped in the usual sterile fashion. A two team approach was taken. The dental office assistant team performed all aspects of the vein harvest. He also assisted with the entire procedure while on cardiopulmonary bypass and with the closure. A small incision was made in the at the medial left knee. The greater saphenous vein was identified and then harvested from the left thigh completely and endoscopically. It was prepared on the back table. The incision was closed in layers with running absorbable sutures. Concomitantly a standard median sternotomy incision was made. The sternum was divided in the midline and hemostasis was achieved. A mammary retractor was then placed. The left pleural space was opened and the left internal mammary artery was taken down with a combination of blunt dissection electrocautery and hemoclips. Full dose heparin was then given. The mammary was ligated distally and divided. It was prepared on the field and had excellent flows. A standard retractor was then placed. The thymus was divided in the midline and the pericardium was opened. I then cannulated for bypass. A double pursestring suture was placed into the ascending aorta. An 8 mm arterial cannula was placed through this and secured. Another pursestring was placed in the right atrial appendage. A dual stage venous cannula was placed through this and secured. An antegrade cardioplegia cannula was placed into the ascending aorta. We then went on total cardiopulmonary bypass. There was excellent decompression of all 4 cardiac chambers. Each of the distal targets were examined and found to be as described above. An aortic cross-clamp was then placed. Cold blood antegrade followed by retrograde cardioplegia was administered with excellent diastolic arrest of the heart. Cardioplegia was readministered periodically throughout the procedure as indicated. The posterior descending artery was then identified. An arteriotomy was made and an end to side saphenous vein to the posterior descending anastomosis was created with a running Prolene stitch. It was hemostatic once complete and had good outflows. The diagonal branch was then identified. An arteriotomy was made in an end-to-side saphenous vein to diagonal anastomosis was created with a running Prolene stitch. It was hemostatic once complete and had good outflows. The the patient was rewarmed. The left anterior descending was then identified in the very distal portion. Everything before this was stented. An arteriotomy was made but the lumen was not well delineated. A small endarterectomy was required to remove the circumferential stenosis in the area. A long end to side GREY to LAD anastomosis was created with a running Prolene stitch. It was hemostatic once complete and had good outflow to the apex. A right sided aortotomy was made. The right sided vein graft was anastomosed here in an end to side fashion. A shot of warm straight blood was then administered through the antegrade cannula. The cannula was removed and the diagonal graft was anastomosed here in an end to side fashion. Each of the vein grafts were then clamped. The aortic cross-clamp was then removed. The vein grafts were de-aired with a 30-gauge needle and then opened up. The retrograde cannula was removed as well and the site was secured. Each of the distal anastomoses were examined and found to be hemostatic. Temporary ventricular pacing wires were placed. There was spontaneous return of cardiac activity. I then began to wean from bypass. The heart was volume loaded and began to eject. The pump flows were gradually reduced and the lungs were ventilated. I was eventually able to wean completely off bypass with no inotropic support. Once off bypass the venous cannula was removed. ZARI showed there to be preserved myocardial function with no new wall motion abnormalities. Protamine was tested. Once half the protamine was given the arterial cannula was removed and the site was secured. Hemostasis was assured at each of the surgical sites. Chest tubes were placed in the left chest and the mediastinum. I then turned attention to closure. The sternum was approximated in the midline with heavy steel wires in a [id number] fashion. The soft tissues were closed in layers with running absorbable sutures. The procedure was then terminated. At the end of the procedure all the sponge and sharp counts were correct. Disposition: The patient having tolerated the procedure well was taken in stable condition to the HLU. He will be monitored closely as to outputs and hemodynamics. Lico Martinez DO FACS Cardiothoracic Surgery documented in this encounter [facility] 07-31-2024 History of Presen t illness Narrative Images from the original note were not included. OCCUPATIONAL THERAPY [facility] Treatment Note Name/MRN: Sharonda Flores ([id number]) Date of : 1955 Age: 69 y.o. Room/Bed: T1-109/T1-109 A Discharge Recommendation: Home with assist PRN, Home with Home health OT Equipment Needed: No Prior Level of Function Prior Level of ADL Function: Independent Prior Level of Mobility: Independent; Device: None Prior Level of Transfers: Independent Assessment Pt limited with L shoulder pain/sensory issues, sternal precautions, decreased activity tolerance and living alone. Pt was ind for ADLs, transfers and mobility. Discussed higher level ADLs/IADL compensatory strategies. HHOT recommended at discharge. Subjective Pt reports L shoulder pain which increases when cold with numbness/tingling in first digit. Pt reports not being taken seriously with his concerns when addressed with Dr. Martinez. Pain: RN managing pain. 0-10 pain scale: 5/10 Location: L shoulder; increases with activity/cold Medical Precautions: No active isolations Proper PPE donned/doffed in accordance with facility standards. Fall Risk: Vicente Fall Risk Score: 35 (Medium Risk) Precautions/Restrictions: Sternal Precautions: No lifting greater than 10 lbs. Ok for modified UE precautions using Keep Your Move in the Tube technique Lines/Drains/Airways: chest tube x 1, tele, PIV, central line Family/Caregiver Present: none Objective ADLs LE Dressing: Independent, doff/don bilateral socks, pants Toileting: Independent Grooming: Independent UE Dressing: Independent LE Bathing: did not trial; educated on use of shower chair/ext tub bench for EC/fall prevention. Pt reported his stall is too small for use. Discussed/Edu on IADL strategies due to living alone: laundry within sternal precautions; transportation for follow up care, food, etc and meal prep Transfers/Mobility Sit to stand: Independent Stand to sit: Independent Toilet: Independent Sitting balance: Independent Standing balance: Independent Functional mobility: Independent Pt does not use a fww/device at baseline; no safety concerns noted. One verbal cue sternal precautions. Plan Continue acute OT per plan of care. Safety/Education Safety Safety Devices in place: All fall risk precautions in place, call light within reach, left in chair, nurse notified, and no alarms engaged upon entry Restraints: No Education Education Given To: patient Education Provided: OT Role, Plan of Care, Precautions, ADL Adaptive Strategies, Transfer Training, Energy Conservation, IADL Safety, Equipment, Fall Prevention Education, Discharge Recommendations, Benefits of Increasing Activity, and Breathing Techniques Education Method: Verbal, Demonstration, and Teach Back Barriers to Learning: None Education Outcome: Verbalized Understanding, Demonstrated Understanding, and Continued Education Needed AM-PAC AM-PAC Inpatient Daily Activity Raw Score: 23 ADL Inpatient CMS G-Code Modifier: CI Goals Patient Stated Goal: to find out why his shoulder still hurts; go home Encounter Problems Encounter Problems (Active) Balance Patient will maintain dynamic standing balance for 3-5 minutes with modified independence in order to demonstrate decreased risk of falling. (Progressing) Start: 07/28/24 Expected End: 08/25/24 Bathing Patient will utilize adaptive techniques to bathe body [place]. (Progressing) Start: 07/28/24 Expected End: 08/25/24 Encounter Problems (Resolved) Dressings Lower Extremities Patient will dress lower body [place]. (Goal Met) Start: 07/28/24 Expected End: 08/25/24 Resolved: 07/31/24 Toileting Patient will complete toileting tasks at standard toilet with modified independence. (Goal Met) Start: 07/28/24 Expected End: 08/25/24 Resolved: 07/31/24 Therapy Time Individual Co-treatment Time In 0830 Time Out 0900 Minutes 30 Timed Code Treatment Minutes: 30 Minutes (1 self 1 act) SHERIE Phelps Cosigned by Eloy Bee OT at 07/31/2024 10:18 AM EST Images from the original note were not included. Cardiothoracic Surgery/[facility] Progress Note PATIENT NAME: Sharonda Flores DATE: 07/30/24 HPI: Sharonda Flores is a 68 y.o. male referred by Dr. Tineo for CABG. Patient's PMHx includes CAD (s/p several PCI, most recently 2011 - LAD, LCx, distal RCA with known PHYSICIAN NON INVASIVE CARDIOLOGIST D2), preserved LVEF (65%), HTN, HLD, PAD (follows with vascular at [facility]), prior tobacco use, pulmonary nodules, adenocarcinoma s/p RUL lobectomy 01/2024 (follows with Pulmonology), and psoriasis. Patient had presented to [facility] ED with a sharp pain in the center of his chest with left shoulder ache. He had associated diaphoresis and nausea. EKG was normal.Troponin was WNL. Discharged and advised to follow up with Cardiology. A stress echocardiogram was ordered and completed on 06/25/24 which was abnormal. He then underwent a heart catheterization on 07/08/24 which demonstrated multivessel CAD. Seen by Dr. Martinez in OP setting, agreeable to CABG, scheduled for 07/25/24. Surgery/Procedure: 07/25/24: Dr. Martinez- CABG x3 (GREY-LAD, SVG-Diag, SVG-PDA), LAD endarterectomy LEVH, ZARI Interval History: 07/30/24, POD# 05. Afebrile, NSR on tele, BP stable, on RA. Had brief episodes of atrial fibrillation overnight. No other issues noted. Patient ambulating on unit. Pain tolerable. Review of Systems Constitutional: Negative for chills, diaphoresis and fever. Respiratory: Negative for cough, shortness of breath and wheezing. Cardiovascular: Negative for palpitations and leg swelling. Gastrointestinal: Negative for abdominal distention, abdominal pain, nausea and vomiting. Neurological: Negative for dizziness and light-headedness. Objective: Last BM Date: (07/29) Vitals: BP: 103/53, MAP (mmHg): 67, BP Method: Automatic Heart Rate: 81 Resp: 18 Temp: 37.2 C (99 F), Temp Source: Temporal BMI (Calculated): 26.49 BMP: Recent Labs 07/28/24 0105 07/28/24 1420 07/29/24 0200 07/29/24 0526 NA 136 137 141 -- K 3.6 3.3* 3.4* 4.0 CL 101 97* 102 -- CO2 31 33* 30 -- BUN 23 24* 24* -- CREATININE 0.90 0.82 0.81 -- CALCIUM 9.0 9.1 9.0 -- MG 2.1 -- 1.8 -- CBC: Recent Labs 07/28/24 0105 07/29/24 0302 07/30/24 0659 WBC 5.0 4.9 5.0 HGB 8.1* 8.4* 9.6* HCT 24.3* 25.2* 28.7* PLT 68* 94* 153 MCV 85.3 84.6 83.9 RDW 14.1 13.7 13.9 INR: Recent Labs 07/28/24 010 INR 1.1 Physical Exam Vitals reviewed. Constitutional: General: He is not in acute distress. Appearance: He is not ill-appearing or diaphoretic. Cardiovascular: Rate and Rhythm: Normal rate and regular rhythm. Pulses: Normal pulses. Heart sounds: No murmur heard. Pulmonary: Effort: Pulmonary effort is normal. Breath sounds: No wheezing, rhonchi or rales. Abdominal: General: There is no distension. Palpations: Abdomen is soft. Tenderness: There is no abdominal tenderness. Musculoskeletal: Right lower leg: No edema. Left lower leg: No edema. Skin: General: Skin is warm and dry. Capillary Refill: Capillary refill takes less than 2 seconds. Findings: Bruising present. Comments: Surgical incisions well approximated. No redness, warmth or drainage noted. Neurological: General: No focal deficit present. Mental Status: He is alert and oriented to person, place, and time. Assessment: CAD s/p multiple PCI's, now s/p CABG HTN HLD PAD Adenocarcinoma s/p RUL lobectomy (02/17/24) Former smoker Psoriasis Post operative Pulm Management: Normal Post-operative Course Post-operative Atrial Fibrillation: [x]Yes [] No Acute blood loss anemia/consumptive coagulopathy Plan: Patient status: Tele Give amio bolus x1, then amio gtt at 1mg/min for 24 hours. -If patient continues to have episodes of afib, will need anticoagulation at DC. Continue aspirin, statin and BB. -Increase BB as HR/BP tolerates. Plavix d/t LAD endarterectomy and stents present. Lasix 40mg PO x1 today. PO pain control. Bowel regimen. Encourage PO intake. Aggressive PT/OT. Plan for OP referral to Orthopedics for shoulder issue. -Office will help coordinate in [place]. GI prophy: PO protonix DVT prophy:TEDs, SCDs, and not on due to risk of bleeding Pulmonary hygiene: IS and Acapella Consults: Endocrinology signed off. -No home going recs. PT/OT: Home with assist PRN (07/28/24) TCC/Discharge Planning: Monitor for afib over the next 24 hours +amio load, DC home tomorrow. Central Line: []Yes [x] No Arterial Line: []Yes [x] No Sher: []Yes [x] No Restraints: []Yes [x] No Patient discussed and plan of day developed from multidisciplinary rounds between Cardiothoracic Surgery (Cardiothoracic Surgeon, CHIQUIS) and Critical Care Attending Time spent 20 minutes. The time involved in the performance of this care was exclusive of separately billable procedures, teaching time and treating other patients. The time was spent personally by myself for the following activities: examination of the patient, ordering and/or performing treatment, reviewing the laboratory and radiographic studies, and if applicable, ventilator management and blood gas interpretation. Cardiac Core Medications: ASA, Statin, and BB EF: 07/25/2024- 55% Blood Conservation: Transfused Business Division Chair: Dr. Tineo Cosigned by Tho Stephens DO at 07/30/2024 12:13 PM EST Images from the original note were not included. PHYSICAL THERAPY [facility] Treatment Note Name/MRN: Sharonda Flores ([id number]) Date of : 1955 Age: 69 y.o. Room/Bed: T1-109/T1-109 A Discharge Recommendation: Home with assist PRN Equipment Needed: No Prior Level of Function Prior Level of ADL Function: Independent Prior Level of Mobility: Independent; Device: None Prior Level of Transfers: Independent Assessment Good progress made towards goals, met multiple goals. Patient was able to ambulate 2 laps on HLU with supervision and no device. Minimal instability noted with mobility tasks. Has been performing P&C exercises on own. Recommend home with assist PRN at discharge. Subjective Seated in recliner upon arrival, agrees to PT. Pain: Pt denies any current pain. Medical Precautions: No active isolations Proper PPE donned/doffed in accordance with facility standards. Fall Risk: Vicente Fall Risk Score: 45 (High Risk) Precautions/Restrictions: Sternal Precautions: No lifting greater than 10 lbs. Ok for modified UE precautions using Keep Your Move in the Tube technique Lines/Drains/Airways: tele Overall Cognitive Status: WNL Overall Orientation Status: Oriented x4 Family/Caregiver Present: none Objective Transfers/Mobility Sit to stand: Supervision Stand to sit: Supervision Good technique, no instability Device(s) used: None Ambulation Ambulation 1 Assistive device(s) used: None Assist level: Supervision Distance (ft): 720ft Quality of gait: No LOB, equal step length Balance During Session: Posture: good Sitting - Static: Independent Sitting - Dynamic: Independent Standing - Static: Supervision Standing - Dynamic: Supervision Performs P&C exercises on own. Plan Continue acute PT per plan of care. Safety/Education Safety Safety Devices in place: All fall risk precautions in place, call light within reach, and left in chair Restraints: No Education Gait, balance, walking program Outcome Measures AM-PAC AM-PAC Inpatient Mobility Raw Score (No Stairs) : 20 JH-HLM JH-HLM Score: Walked 250 ft or more (i.e. several laps on unit) Goals Patient Stated Goal: to feel better Encounter Problems Encounter Problems (Active) Cardiac Patient will perform bed mobility with independence in order to improve independence and prepare for out of bed mobility. (Not Addressed) Start: 07/26/24 Expected End: 08/23/24 Patient will complete sit to stand transfer with independence to none in order to improve safety and prepare for out of bed mobility. (Adequate for Discharge) Start: 07/26/24 Expected End: 08/23/24 Patient will ambulate 600 feet or ambulate 5 minutes with independence with RPE of 14 or lower. (Adequate for Discharge) Start: 07/26/24 Expected End: 08/23/24 Patient will be independent with P&C exercises. (Completed) Start: 07/26/24 Expected End: 08/23/24 Resolved: 07/29/24 Patient will be independent with managing secretions and home walking program. (Completed) Start: 07/26/24 Expected End: 08/23/24 Resolved: 07/29/24 Pain - Adult Therapy Time Individual Co-treatment Time In 1155 Time Out 1209 Minutes 14 Timed Code Treatment Minutes: 14 Minutes (Gait) Lilo Powell PTA Cosigned by Mega Peraza PT at 07/29/2024 3:36 PM EST Images from the original note were not included. Cardiothoracic Surgery/[facility] Progress Note PATIENT NAME: Sharonda Flores DATE: 07/29/24 HPI: Sharonda Flores is a 68 y.o. male referred by Dr. Tineo for CABG. Patient's PMHx includes CAD (s/p several PCI, most recently 2011 - LAD, LCx, distal RCA with known PHYSICIAN NON INVASIVE CARDIOLOGIST D2), preserved LVEF (65%), HTN, HLD, PAD (follows with vascular at [facility]), prior tobacco use, pulmonary nodules, adenocarcinoma s/p RUL lobectomy 01/2024 (follows with Pulmonology), and psoriasis. Patient had presented to [place] ED with a sharp pain in the center of his chest with left shoulder ache. He had associated diaphoresis and nausea. EKG was normal.Troponin was WNL. Discharged and advised to follow up with Cardiology. A stress echocardiogram was ordered and completed on 06/25/24 which was abnormal. He then underwent a heart catheterization on 07/08/24 which demonstrated multivessel CAD. Seen by Dr. Martinez in OP setting, agreeable to CABG, scheduled for 07/25/24. Surgery/Procedure: 07/25/24: Dr. Martinez- CABG x3 (GREY-LAD, SVG-Diag, SVG-PDA), LAD endarterectomy LEVH, ZARI Interval History: 07/29/24, POD# 04: Afebrile, NSR on tele, BP stable, on RA. Chest tubes, sher and central line all removed. Ambulating on unit with nursing. Major concern is shoulder pain. Long discussion with PIG MACHINE SUPERVISOR yesterday about OP referrals. Review of Systems Constitutional: Negative for chills, diaphoresis and fever. Respiratory: Negative for cough, shortness of breath and wheezing. Cardiovascular: Negative for palpitations and leg swelling. Gastrointestinal: Negative for abdominal distention, abdominal pain, nausea and vomiting. Neurological: Negative for dizziness and light-headedness. Objective: Last BM Date: 07/27/24 Vitals: BP: 128/62, MAP (mmHg): 82, BP Method: Automatic Heart Rate: 79 Resp: 20 Temp: 36.4 C (97.5 F), Temp Source: Temporal BMI (Calculated): 26.49 BMP: Recent Labs 07/27/24 0000 07/28/24 0105 07/28/24 1420 07/29/24 0200 NA 137 136 137 141 K 3.6 3.6 3.3* 3.4* CL 106 101 97* 102 CO2 25 31 33* 30 BUN 22 23 24* 24* CREATININE 0.97 0.90 0.82 0.81 CALCIUM 8.7* 9.0 9.1 9.0 MG 2.2 2.1 -- 1.8 CBC: Recent Labs 07/27/24 1133 07/28/24 0105 07/29/24 0302 WBC 6.4 5.0 4.9 HGB 9.5* 8.1* 8.4* HCT 28.9* 24.3* 25.2* PLT 81* 68* 94* MCV 86.8 85.3 84.6 RDW 14.3 14.1 13.7 INR: Recent Labs 07/26/24 1217 07/27/24 0000 07/28/24 0105 INR 1.1 1.0 1.1 Physical Exam Vitals reviewed. Constitutional: General: He is not in acute distress. Appearance: He is not ill-appearing or diaphoretic. Cardiovascular: Rate and Rhythm: Normal rate and regular rhythm. Pulses: Normal pulses. Heart sounds: No murmur heard. Pulmonary: Effort: Pulmonary effort is normal. Breath sounds: No wheezing, rhonchi or rales. Abdominal: General: There is no distension. Palpations: Abdomen is soft. Tenderness: There is no abdominal tenderness. Musculoskeletal: Right lower leg: No edema. Left lower leg: No edema. Skin: General: Skin is warm and dry. Capillary Refill: Capillary refill takes less than 2 seconds. Findings: Bruising present. Comments: Surgical incisions well approximated. No redness, warmth or drainage noted. Neurological: General: No focal deficit present. Mental Status: He is alert and oriented to person, place, and time. Assessment: CAD s/p multiple PCI's, now s/p CABG HTN HLD PAD Adenocarcinoma s/p RUL lobectomy (02/17/24) Former smoker Psoriasis Post operative Pulm Management: Normal Post-operative Course Post-operative Atrial Fibrillation: []Yes [x] No Acute blood loss anemia/consumptive coagulopathy Plan: Patient status: Tele Continue aspirin, statin and BB. -Increase BB as HR/BP tolerates. Start Plavix d/t LAD endarterectomy and stents present. PO lasix BID today, back off tomorrow. PO pain control. Bowel regimen. Encourage PO intake. Aggressive PT/OT. Plan for OP referral to Orthopedics for shoulder issue. -Office will help coordinate in [place]. GI prophy: PO protonix DVT prophy:TEDs, SCDs, and not on due to risk of bleeding Pulmonary hygiene: IS and Acapella Consults: Endocrinology signed off. -No home going recs. PT/OT: Home with assist PRN (07/28/24) TCC/Discharge Planning: Plan for DC tomorrow. Central Line: []Yes [x] No Arterial Line: []Yes [x] No Sher: []Yes [x] No Restraints: []Yes [x] No Patient discussed and plan of day developed from multidisciplinary rounds between Cardiothoracic Surgery (Cardiothoracic Surgeon, CHIQUIS) and Critical Care Attending Time spent 30 minutes. The time involved in the performance of this care was exclusive of separately billable procedures, teaching time and treating other patients. The time was spent personally by myself for the following activities: examination of the patient, ordering and/or performing treatment, reviewing the laboratory and radiographic studies, and if applicable, ventilator management and blood gas interpretation. Cardiac Core Medications: ASA, Statin, and BB EF: 07/25/2024- 55% Blood Conservation: Transfused Business Division Chair: Dr. Tineo Cosigned by Tho Stephens DO at 07/29/2024 11:41 AM EST Images from the original note were not included. PHYSICAL THERAPY [facility] Treatment Note Name/MRN: Sharonda Flores ([id number]) Date of : 1955 Age: 69 y.o. Room/Bed: T1-109/T1-109 A Discharge Recommendation: Continue to assess pending progress, Home with assist PRN Equipment Needed: No Prior Level of Function Prior Level of ADL Function: Independent Prior Level of Mobility: Independent; Device: None Prior Level of Transfers: Independent Assessment Progressed with gait distance this session, able to ambulate lap on HLU with nezzi and SBA. Performs transfers with SBA, maintains precautions without cues. Overall good stability demonstrated with mobility tasks. Performed P&C exercises with cues for technique and ROM. Anticipate home with assist PRN at discharge. Subjective Seated EOB upon arrival, agrees to participate in PT. Cleared for PT by RN. Pain: discomfort in chest, did not rate Medical Precautions: No active isolations Proper PPE donned/doffed in accordance with facility standards. Fall Risk: Vicente Fall Risk Score: 45 (High Risk) Precautions/Restrictions: Sternal Precautions: No lifting greater than 10 lbs. Ok for modified UE precautions using Keep Your Move in the Tube technique Lines/Drains/Airways: tele, PIV Overall Cognitive Status: WNL Overall Orientation Status: Oriented x4 Family/Caregiver Present: none Objective Transfers/Mobility Sit to stand: SBA Stand to sit: SBA Maintains sternal precautions, good technique. No instability or LOB noted. Device(s) used: [place] Ambulation Ambulation 1 Assistive device(s) used: [place] Assist level: SBA Distance (ft): 370ft Quality of gait: slow jb. Some dyspnea noted, decreased jb speed at times. Short standing rest break x 1. Overall good safety awareness and stability demonstrated. Balance During Session: Posture: fair Sitting - Static: Independent Sitting - Dynamic: Independent Standing - Static: SBA Standing - Dynamic: SBA Exercises Exercises Comments: P&C exercises 1-9 x10 reps each, cues and demo for technique and ROM throughout. Encouraged to perform 2-3 x daily. Plan Continue acute PT per plan of care. Safety/Education Safety Safety Devices in place: All fall risk precautions in place, call light within reach, nurse notified, and patient left sitting EOB Restraints: No Education Gait, exercises, balance Outcome Measures AM-PAC AM-PAC Inpatient Mobility Raw Score (No Stairs) : 17 JH-HLM JH-HLM Score: Walked 250 ft or more (i.e. several laps on unit) Goals Patient Stated Goal: to feel better Encounter Problems Encounter Problems (Active) Cardiac Patient will perform bed mobility with independence in order to improve independence and prepare for out of bed mobility. (Not Addressed) Start: 07/26/24 Expected End: 08/23/24 Patient will complete sit to stand transfer with independence to none in order to improve safety and prepare for out of bed mobility. (Progressing) Start: 07/26/24 Expected End: 08/23/24 Patient will ambulate 600 feet or ambulate 5 minutes with independence with RPE of 14 or lower. (Progressing) Start: 07/26/24 Expected End: 08/23/24 Patient will be independent with P&C exercises. (Progressing) Start: 07/26/24 Expected End: 08/23/24 Patient will be independent with managing secretions and home walking program. (Progressing) Start: 07/26/24 Expected End: 08/23/24 Pain - Adult Therapy Time Individual Co-treatment Time In 1246 Time Out 1309 Minutes 23 Timed Code Treatment Minutes: 23 Minutes (Gait, TP) Lilo Powell PTA Cosigned by Juice Hall, PT at 07/28/2024 2:30 PM EST Epicardial pacing wire pulled without difficulty per protocol. Patient and nurse educated on possible complications. Patient tolerated well. Will continue to monitor. Chest tubes assessed: no air leak, subcutaneous air noted. Chest tubes removed without difficulty and dressing applied. Patient tolerated well. Patient and nurse educated on possible complications to observe for. Will continue to monitor. SESAR Kelly CNP 07/28/24 Images from the original note were not included. OCCUPATIONAL THERAPY [facility] Initial Evaluation Name/MRN: Sharonda Flores ([id number]) Evaluation Date: 07/28/2024 Date of : 1955 Admission Date: 07/25/2024 5:14 AM Age: 69 y.o. Room/Bed: T1-109/T1-109 A Discharge Recommendation: Home with assist PRN, Home with Home health OT Assessment IMPRESSION: Patient is a 69-year-old male hospitalized s/p CABG x 3 on 07/25. Patient is functionally independent with self-care tasks and functional mobility at baseline. Patient is limited by the deficits listed below. Patient is Supervision for UB ADLs, SBA LB ADLs and SBA toileting. Patient is Contact Guard for transfers/functional mobility. Recommending Home with Home OT and Home with Assist PRN upon discharge. Admitting Diagnosis: CAD of chilkoot artery Performance Deficits /Impairments: Increased Pain, Decreased Functional Mobility, Decreased ADL status, Decreased Strength, Decreased Safety Awareness, Decreased Endurance, and Decreased Balance Prognosis: Good Decision Making: Low Complexity Subjective Patient is sitting in recliner; patient agreeable to therapy evaluation. RN ok'd for participation. Pain: 0-10 pain scale: 4/10 Location: sternal pain Past Medical History: Past Medical History: Diagnosis Date Arrhythmia v-fib/ arrest CAD (coronary artery disease) [facility] ([facility]) ([facility]) LUNG UPPER RIGHT - SURGERY FOR REMOVAL 02/09/2024 Congenital heart disease Hyperlipidemia Hypertension [place], old 2011- [facility] Sleep apnea NO CPAP WORN Past Surgical History: Past Surgical History: Procedure Laterality Date ADENOIDECTOMY APPENDECTOMY CARDIAC CATHETERIZATION N/A 07/05/2024 Performed by Becky Tineo MD at [facility] Cardiac Cath/EP Lab CARDIAC PROCEDURE 03/15/2012 BMS mid dis RCA CARDIAC PROCEDURE 03/2012 REBECCA to mis dist LAD CARDIAC PROCEDURE 05/2012 REBECCA to prox LCx COLONOSCOPY CORONARY ANGIOPLASTY 05/2012 circ, distal RCA, & LAD TONSILLECTOMY Admission Diagnosis: Patient Active Problem List Diagnosis Date Noted 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 Fall Risk: Vicente Fall Risk Score: 45 (High Risk) Precautions/Restrictions: Sternal Precautions: No lifting greater than 10 lbs. Ok for modified UE precautions using Keep Your Move in the Tube technique Lines/Drains/Airways: chest tube x 1, tele, PIV, central line Family/Caregiver Present: none Overall Cognitive Status: WFL Overall Orientation Status: Oriented x4 Social/Functional History Patient admitted from home. 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 Patient ambulated to commode with Mame and CGA. Patient requiring cueing for sternal precautions as patient presents with some impulsivity. Patient with FAIR standing balance and tolerance. Return to recliner. Device(s) used: Mame AM-PAC AM-PAC Inpatient Daily Activity Raw Score: 21 ADL Inpatient CMS G-Code Modifier: CJ Plan Pt would benefit from skilled acute OT services to address Strengthening, Gait Training, Balance Training, Self-Care/ADL Training, Functional Mobility Training, Endurance Training, Safety Education and Training, Pain Management, Home Management Training, and Patient/Caregiver Training. Frequency: 5x/week for 4 weeks Barriers: Pain, Impaired balance, Lower extremity weakness, Decreased endurance, and Limited safety awareness Safety/Education Safety Safety Devices in place: All fall risk precautions in place, call light within reach, left in chair, and nurse notified Restraints: No Education Education Given To: patient Education Provided: OT Role, Plan of Care, Precautions, and Discharge Recommendations Education Method: Verbal Barriers to Learning: None Education Outcome: Continued Education Needed Goals Patient Stated Goal: to get better Encounter Problems Encounter Problems (Active) Balance Patient will maintain dynamic standing balance for 3-5 minutes with modified independence in order to demonstrate decreased risk of falling. Start: 07/28/24 Expected End: 08/25/24 Bathing Patient will utilize adaptive techniques to bathe body [place]. Start: 07/28/24 Expected End: 08/25/24 Dressings Lower Extremities Patient will dress lower body [place]. Start: 07/28/24 Expected End: 08/25/24 Toileting Patient will complete toileting tasks at standard toilet with modified independence. Start: 07/28/24 Expected End: 08/25/24 Therapy Time Individual Co-Treatment Co-Evaluation Time In 0806 Time Out 0820 Minutes 14 Orquidea Corley OT Patient's Occupational Therapy Plan of Care supervision is transferred to a [facility] Occupational Therapist. Goals and/or treatment plan was established in collaboration with patient/family/other representatives. Images from the original note were not included. Cardiothoracic Surgery/[facility] Progress Note PATIENT NAME: Sharonda Flores DATE: 07/28/24 HPI: Sharonda Flores is a 68 y.o. male referred by Dr. Tineo for CABG. Patient's PMHx includes CAD (s/p several PCI, most recently 2011 - LAD, LCx, distal RCA with known PHYSICIAN NON INVASIVE CARDIOLOGIST D2), preserved LVEF (65%), HTN, HLD, PAD (follows with vascular at [facility]), prior tobacco use, pulmonary nodules, adenocarcinoma s/p RUL lobectomy 01/2024 (follows with Pulmonology), and psoriasis. Patient had presented to [facility] ED with a sharp pain in the center of his chest with left shoulder ache. He had associated diaphoresis and nausea. EKG was normal.Troponin was WNL. Discharged and advised to follow up with Cardiology. A stress echocardiogram was ordered and completed on 06/25/24 which was abnormal. He then underwent a heart catheterization on 07/08/24 which demonstrated multivessel CAD. Seen by Dr. Martinez in OP setting, agreeable to CABG, scheduled for 07/25/24. Surgery/Procedure: 07/25/24: Dr. Martinez- CABG x3 (GREY-LAD, SVG-Diag, SVG-PDA), LAD endarterectomy LEVH, ZARI Interval History: 07/28/24, POD#3: VSS, afebrile, NSR on tele. On RA. Patients main concern is regarding his shoulder pain and feeling he needs this managed as an outpatient- discussed referral to pain management as OP. [address] output in last 24hrs- noted improvement of L pleural effusion on CXR. Minimal output overnight. Review of Systems Constitutional: Positive for activity change, appetite change and fatigue. Negative for diaphoresis and fever. Respiratory: Negative for cough, shortness of breath and wheezing. Cardiovascular: Negative for chest pain, palpitations and leg swelling. Gastrointestinal: Negative for abdominal distention, abdominal pain, nausea and vomiting. Skin: Negative for color change, pallor and rash. Objective: CT output cc/24hrs: 920 mL Last BM Date: 07/27/24 Vitals: BP: 103/65, MAP (mmHg): 75, BP Method: Automatic Heart Rate: 80 Resp: 18 Temp: 36.8 C (98.2 F), Temp Source: Temporal BMI (Calculated): 27.79 Pacer Wires: V-wires CXR: BMP: Recent Labs 07/25/24 1156 07/25/24 1313 07/26/24 1217 07/27/24 0000 07/28/24 0105 NA 140 < > 139 137 136 K 4.0 < > 4.2 3.6 3.6 CL 113* < > 110* 106 101 CO2 23 < > 23 25 31 BUN 15 < > 21 22 23 CREATININE 0.93 < > 1.02 0.97 0.90 CALCIUM 10.8* < > 8.5* 8.7* 9.0 MG 5.5* < > 2.5 2.2 2.1 PHOS 2.2* -- -- -- -- < > = values in this interval not displayed. CBC: Recent Labs 07/27/24 0000 07/27/24 1133 07/28/24 0105 WBC 5.8 6.4 5.0 HGB 8.5* 9.5* 8.1* HCT 26.2* 28.9* 24.3* PLT 66* 81* 68* MCV 86.8 86.8 85.3 RDW 14.6 14.3 14.1 INR: Recent Labs 07/26/24 1217 07/27/24 0000 07/28/24 0105 INR 1.1 1.0 1.1 Physical Exam Cardiovascular: Rate and Rhythm: Normal rate and regular rhythm. Heart sounds: Normal heart sounds. No murmur heard. No friction rub. Pulmonary: Effort: Pulmonary effort is normal. Breath sounds: No decreased breath sounds, wheezing or rhonchi. Musculoskeletal: Right lower leg: No edema. Left lower leg: No edema. Skin: General: Skin is warm and dry. Capillary Refill: Capillary refill takes less than 2 seconds. Findings: Bruising and ecchymosis present. Comments: Surgical Incisions: well approximate; clean dry with no drainage noted. Surrounding skin no redness, warmth, or signs of infection noted. Neurological: Mental Status: He is alert. Psychiatric: Behavior: Behavior is cooperative. Assessment: CAD s/p multiple PCI's, now s/p CABG HTN HLD PAD Adenocarcinoma s/p RUL lobectomy (02/17/24) Former smoker Psoriasis Post operative Pulm Management: Normal Post-operative Course Post-operative Atrial Fibrillation: []Yes [x] No Acute blood loss anemia/consumptive coagulopathy Plan: Patient status: tele Medications: ASA/Statin Increase BB- Metoprolol 25mg BID Lasix 40mg PO BID GI prophy: PO protonix DVT prophy:TEDs, SCDs, and holding d/t thrombocytopenia Interventions: Will reassess CT later today after ambulation- likely remove this afternoon D/C IJ Will need referral to pain management as OP for shoulder pain (chronic issue) OOB to chair, progressive mobility Pulmonary hygiene: IS and Acapella Consults: Endocrine signed off- no needs at discharge PT/OT: PT: Continue to assess pending progress, Home with assist PRN TCC/Discharge Planning Likely d/c in 1-2 days Central Line: [x]Yes [] No Arterial Line: []Yes [x] No Sher: []Yes [x] No Restraints: []Yes [x] No Patient discussed and plan of day developed from multidisciplinary rounds between Cardiothoracic Surgery (Cardiothoracic Surgeon, CHIQUIS) and Critical Care Attending Critical Care time spent 35 minutes. The time involved in the performance of this care was exclusive of separately billable procedures, teaching time and treating other patients. The time was spent personally by myself for the following activities: examination of the patient, ordering and/or performing treatment, reviewing the laboratory and radiographic studies, and if applicable, ventilator management and blood gas interpretation. Cardiac Core Medications: ASA, Statin, and BB EF: 07/25/2024- 55% Blood Conservation: transfused postop Business Division Chair: Dr. Tineo Cosigned by Mike Mosley MD at 07/28/2024 2:39 PM EST Associated attestation - Mike Mosley MD - 07/28/2024 2:39 PM EST I have personally performed a face to face diagnostic evaluation on this patient today on 07/28/24. Labs, imaging studies, and electronic medical record notes on [employer] have been reviewed by me. This note documented and discussed by the []community arts officer []Fellow [x] CHIQUIS reflects my history, exam and medical decision making. I have reviewed and agree with the care plan. Changes were made in the orders as necessary. ROS documentation was reviewed and negative unless otherwise stated in the HPI. My history, exam, assessment and plan are as follows: Some elements copied from my notes, which have been updated where appropriate. All reflect current medical decision making from 07/28/24. Physical Exam listed was completed in entirely on 07/28/24 and is unchanged except where noted. Pt no longer critical care Time spent for coordination of care: a subsequent visit: 25 minutes (Level I) In chair, had BM, on room air Heart RRR Lungs clear anteriorly, unlabored Abd soft Severe multivessel CAD 07/25 s/p CABG x 3 Post op pulm management Anemia, thrombocytopenia expected post op On ASA, statin, b-aric Lasix diuresis as tolerated Department of Internal Medicine Division of Endocrinology, Diabetes, & Metabolism Endocrinology Note Patient Name: Sharonda Flores : 1955 AGE: 69 y.o. Room/Bed: [facility]/T1109 A Admission Date: 07/25/2024 Visit Date: 07/27/2024 Reason for Endocrine Consult: Stress hyperglycemia Provider/Team Requesting Consult: Cardiology PCP: Tima Tello MD Outpt Industrial Therapist: No ASSESSMENT: Stress induced hyperglycemia Steroid induced hyperglycemia Status post CABGx3 CAD PLAN: Glucose readings are reasonable without any other coverage Discontinue Humalog correction scale May obtain a blood glucose readings as needed Endocrinology service will sign off ICU goal <180 GMF goal <150 POCT BG ACHS Hypoglycemia management per protocol Carb controlled diet ANTICIPATED ENDOCRINE HOME GOING RECOMMENDATIONS: Optimized for Discharge from Endocrine standpoint: Yes Home Going Endocrine Rx Recommendations-- None Outpt Follow Up-- PCP SUBJECTIVE/HPI: CHIEF COMPLAINT: Status post CABG Interval events 07/27 Reported constipation was given laxatives Blood glucose readings reasonable 07/26 Has been extubated. Chest tube in place. On pacer Gtt: none at this time Blood glucose still tightly controlled Discussed with patient, no history DM or thyroid Feeling better, sore Has not eaten, plans to eat later today. Drinking water and carlos manuel young 07/25 Intubated and chest tube in place, on pacer Gtt: propofol and insulin (off at time of consult) No pressors are on Received dexamethasone earlier today Blood glucose tightly controlled at this time No history of DM, no A1C available Will clarify patient medical history once extubated Type of DM: NA Onset of DM: NA Home DM Medication Regimen: NA DM control (last A1c/glucose data): Lab Results Component Value Date HGBA1C 6.0 (H) 07/25/2024 Glucose Date/Time Value Ref Range Status 07/27/2024 08:21 AM 120 (H) 70 - 100 mg/dL Final 07/26/2024 05:37 PM 106 (H) 70 - 100 mg/dL Final 07/26/2024 06:59 AM 112 (H) 70 - 100 mg/dL Final 07/26/2024 04:07 AM 101 (H) 70 - 100 mg/dL Final 07/26/2024 01:58 AM 113 (H) 70 - 100 mg/dL Final 07/26/2024 01:16 AM 107 (H) 70 - 100 mg/dL Final Review of Systems Constitutional: Positive for fatigue. Negative for activity change, appetite change and unexpected weight change. Gastrointestinal: Negative for diarrhea, nausea and vomiting. Endocrine: Negative for polydipsia, polyphagia and polyuria. Genitourinary: Negative for dysuria. Musculoskeletal: Positive for myalgias. Skin: Negative for color change and pallor. ROS negative except for those mentioned in HPI. OBJECTIVE: Vitals: 07/27/24 0510 07/27/24 0600 07/27/24 0700 07/27/24 0800 BP: 102/57 106/57 128/58 BP Location: Right arm Patient Position: Sitting Pulse: 78 74 81 Resp: 20 18 Temp: 36.1 C (97 F) TempSrc: Temporal SpO2: 95% 96% 97% Weight: 179 lb 3.7 oz (81.3 kg) Height: Physical Exam Vitals reviewed. Constitutional: General: He is not in acute distress. Appearance: Normal appearance. HENT: Head: Normocephalic and atraumatic. Right Ear: External ear normal. Left Ear: External ear normal. Nose: Nose normal. Mouth/Throat: Pharynx: Oropharynx is clear. Eyes: Extraocular Movements: Extraocular movements intact. Cardiovascular: Rate and Rhythm: Normal rate. Pulmonary: Effort: Pulmonary effort is normal. Chest: Comments: Chest tube in place Skin: General: Skin is warm and dry. Comments: Midline incision intact Neurological: General: No focal deficit present. Mental Status: He is alert and oriented to person, place, and time. Psychiatric: Mood and Affect: Mood normal. Behavior: Behavior normal. Thought Content: Thought content normal. Judgment: Judgment normal. 24 hour intake/output: Intake/Output Summary (Last 24 hours) at 07/27/2024 1030 Last data filed at 07/27/2024 0900 Gross per 24 hour Intake 571 ml Output 1045 ml Net -474 ml Diet: Adult diet Regular; 5 carb choices (75 gm/meal); Low Fat/Low Chol/High Fiber/ISAIAS Medications (as per EMR): HomeMeds: Current Outpatient Medications Medication Instructions aspirin 81 mg, Daily before breakfast atorvastatin (LIPITOR) 80 mg, Oral, Every evening carvedilol (COREG) 6.25 mg, Oral, 2 times daily ezetimibe (ZETIA) 10 mg, Daily before breakfast isosorbide mononitrate ER (IMDUR) 30 mg, Oral, Daily, Do not crush or chew. mupirocin (Bactroban) 2 % ointment Apply liberal amount per nostril the night before surgery and then again the morning of surgery nitroglycerin (Nitrostat) 0.4 MG SL tablet DISSOLVE 1 TABLET UNDER THE TONGUE EVERY 5 MINUTES NEEDED. Scheduled Meds:acetaminophen, 1,000 mg, Oral, q8h aspirin, 81 mg, Oral, Daily atorvastatin, 80 mg, Oral, Daily chlorhexidine, 15 mL, Mouth/Throat, BID furosemide, 40 mg, IntraVENous, BID lactulose, 20 g, Oral, TID Lidocaine, 1 patch, Topical, Daily metoprolol tartrate, 12.5 mg, Oral, BID mupirocin, , Nasal, BID pantoprazole, 40 mg, Oral, qAM AC polyethylene glycol (PEG) 3350, 17 g, Oral, Daily senna-docusate sodium, 2 tablet, Oral, Nightly sodium chloride 0.9%, 5-40 mL, IntraCATHeter, q8h Continuous Infusions:lactated ringers, 250 mL, Last Rate: Stopped (07/25/242322) PRN Meds:PRN medications: albumin human, calcium gluconate, dextrose, dextrose, glucagon (rDNA), glucose, ipratropium-albuterol, lactated ringers, magnesium hydroxide, magnesium sulfate OR magnesium sulfate, methocarbamol, morphine sulfate OR morphine sulfate, naloxone, ondansetron ODT OR ondansetron, oxyCODONE OR oxyCODONE, potassium chloride OR potassium chloride OR potassium chloride, potassium chloride CR, sodium chloride 0.9% Diagnostic Workup: I reviewed pertinent Laboratory results, Radiographic results, and Other Clinical Notes at the time of today's encounter. Labs: No components found for: LABA1C No components found for: EAG Lab Results Component Value Date NA 137 07/27/2024 K 3.6 07/27/2024 CL 106 07/27/2024 CO2 25 07/27/2024 BUN 22 07/27/2024 CREATININE 0.97 07/27/2024 GLUCOSE 115 07/27/2024 CALCIUM 8.7 (L) 07/27/2024 Lab Results Component Value Date CHLPL 217 10/21/2019 CHOL 242 (A) 09/30/2020 Lab Results Component Value Date TRIG 164 (A) 09/30/2020 TRIG 170 10/21/2019 Lab Results Component Value Date HDL 34 (L) 09/30/2020 HDL 32 (A) 10/21/2019 Lab Results Component Value Date LDLCALC 151 10/21/2019 Lab Results Component Value Date VLDL 34 10/21/2019 Lab Results Component Value Date CHOLHDLRATIO 7 09/30/2020 CHOLHDLRATIO 6.78 10/21/2019 No results found for: [id number] No results found for: TSH, J8YNSMI, W7PABXV, THYROIDAB Radiology reportsas per the Radiologist Radiology: POCT glucose meter Result Date: 07/25/2024 Performed by: [facility], [address] [place] [address] CLIA ID: [id number] History/Other: Past Medical History: Past Medical History: Diagnosis Date Arrhythmia v-fib/ arrest CAD (coronary artery disease) Cancer (CMS/HCC) (HCC) LUNG UPPER RIGHT - SURGERY FOR REMOVAL 02/09/2024 Congenital heart disease Hyperlipidemia Hypertension [place], old 2011- [facility] Sleep apnea NO CPAP WORN Past Surgical History: Past Surgical History: Procedure Laterality Date ADENOIDECTOMY APPENDECTOMY CARDIAC CATHETERIZATION N/A 07/05/2024 Performed by Becky Tineo MD at [facility] Cardiac Cath/EP Lab CARDIAC PROCEDURE 03/15/2012 BMS mid dis RCA CARDIAC PROCEDURE 03/2012 REBECCA to mis dist LAD CARDIAC PROCEDURE 05/2012 REBECCA to prox LCx COLONOSCOPY CORONARY ANGIOPLASTY 05/2012 circ, distal RCA, & LAD TONSILLECTOMY Allergy(ies): Allergies Allergen Reactions Pcn [Penicillins] Rash Family History: Family History Problem Relation Name Age of Onset Heart disease Father Thad No Known Problems Mother Cancer Maternal Grandfather Mother Social History: Social History Tobacco Use Smoking status: Former Current packs/day: 0.00 Average packs/day: 2.0 packs/day for 56.1 years (112.2 ttl pk-yrs) Types: Cigarettes Start date: 1955 Quit date: 08/17/2011 Years since quittin.9 Smokeless tobacco: Former Quit date: 1970 Tobacco comments: Quit smoking: currently occ cigar Vaping Use Vaping status: Never Used Substance Use Topics Alcohol use: No Drug use: No Portions of the information within this encounter were entered using an electronic dictation system. Best attempts were made to edit/proofread the information prior to note completion. Despite the review of information, some errors may remain. If there are questions related to the information contained within the note please contact the signing physician directly. Images from the original note were not included. Cardiothoracic Surgery/[facility] Progress Note PATIENT NAME: Sharonda Flores DATE: 07/27/24 HPI: Sharonda Flores is a 68 y.o. male referred by Dr. Tineo for CABG. Patient's PMHx includes CAD (s/p several PCI, most recently 2011 - LAD, LCx, distal RCA with known PHYSICIAN NON INVASIVE CARDIOLOGIST D2), preserved LVEF (65%), HTN, HLD, PAD (follows with vascular at [facility]), prior tobacco use, pulmonary nodules, adenocarcinoma s/p RUL lobectomy 01/2024 (follows with Pulmonology), and psoriasis. Patient had presented to [facility] ED with a sharp pain in the center of his chest with left shoulder ache. He had associated diaphoresis and nausea. EKG was normal.Troponin was WNL. Discharged and advised to follow up with Cardiology. A stress echocardiogram was ordered and completed on 06/25/24 which was abnormal. He then underwent a heart catheterization on 07/08/24 which demonstrated multivessel CAD. Seen by Dr. Martinez in OP setting, agreeable to CABG, scheduled for 07/25/24. Surgery/Procedure: 07/25/24: Dr. Martinez- CABG x3 (GREY-LAD, SVG-Diag, SVG-PDA), LAD endarterectomy LEVH, ZARI Interval History: 07/27/24, POD# 2: VSS, afebrile, NSR on tele. On 2L NC. Resting in chair, has ambulated in hallway. Reports some nausea with pain medication, low appetite, he is drinking fluids. Plts- 66 (58) Hgb- 8.5, stable Cr- 0.97 Review of Systems Constitutional: Positive for activity change, appetite change and fatigue. Negative for diaphoresis and fever. Respiratory: Negative for cough, shortness of breath and wheezing. Cardiovascular: Negative for chest pain, palpitations and leg swelling. Gastrointestinal: Negative for abdominal distention, abdominal pain, nausea and vomiting. Skin: Negative for color change, pallor and rash. Objective: CT output cc/24hrs: 330 mL UO cc/24hrs: 590 mL Last BM Date: 07/24/24 (preop) Vitals: BP: 106/57, MAP (mmHg): 73, BP Method: Automatic Heart Rate: 74 Resp: 20 Temp: 36.8 C (98.3 F), Temp Source: Temporal BMI (Calculated): 29.83 Pacer Wires: V-wires CXR: BMP: Recent Labs 07/25/24 1156 07/25/24 1313 07/26/24 0009 07/26/24 1217 07/27/24 0000 NA 140 < > 142 139 137 K 4.0 < > 4.5 4.2 3.6 CL 113* < > 111* 110* 106 CO2 23 < > 23 23 25 BUN 15 < > 16 21 22 CREATININE 0.93 < > 1.14 1.02 0.97 CALCIUM 10.8* < > 8.4* 8.5* 8.7* MG 5.5* -- 2.6 2.5 2.2 PHOS 2.2* -- -- -- -- < > = values in this interval not displayed. CBC: Recent Labs 07/26/24 0520 07/26/24 1217 07/27/24 0000 WBC 4.4 5.0 5.8 HGB 8.8* 8.6* 8.5* HCT 26.2* 25.9* 26.2* PLT 57* 58* 66* MCV 85.6 85.8 86.8 RDW 14.4 14.6 14.6 INR: Recent Labs 07/26/24 0009 07/26/24 1217 07/27/24 0000 INR 1.1 1.1 1.0 Physical Exam Cardiovascular: Rate and Rhythm: Normal rate and regular rhythm. Heart sounds: Normal heart sounds. No murmur heard. No friction rub. Pulmonary: Effort: Pulmonary effort is normal. Breath sounds: Examination of the right-lower field reveals decreased breath sounds. Examination of the left-lower field reveals decreased breath sounds. Decreased breath sounds (L>R) present. No wheezing or rhonchi. Musculoskeletal: Right lower leg: No edema. Left lower leg: No edema. Skin: General: Skin is warm and dry. Capillary Refill: Capillary refill takes less than 2 seconds. Findings: Bruising and ecchymosis present. Comments: Surgical Incisions: well approximate; clean dry with no drainage noted. Surrounding skin no redness, warmth, or signs of infection noted. Neurological: Mental Status: He is alert. Psychiatric: Behavior: Behavior is cooperative. Assessment: CAD s/p multiple PCI's, now s/p CABG HTN HLD PAD Adenocarcinoma s/p RUL lobectomy (02/17/24) Former smoker Psoriasis Post operative Pulm Management: Normal Post-operative Course Post-operative Atrial Fibrillation: []Yes [x] No Acute blood loss anemia/consumptive coagulopathy Plan: Patient status: ICU Medications: ASA/Statin Start low dose BB- Metoprolol 12.5mg BID Lasix 40mg IVP BID MOM 60 x1 PRN Methocarbamol for muscle spasms GI prophy: PO protonix DVT prophy:TEDs, SCDs, and holding d/t thrombocytopenia Interventions: Continue CT-> suction, okay to remove for ambulation OOB to chair, progressive mobility Pulmonary hygiene: IS and Acapella Consults: Endocrine following for insulin needs PT/OT: PT: Continue to assess pending progress, Home with assist PRN TCC/Discharge Planning TBD Central Line: [x]Yes [] No Arterial Line: []Yes [x] No Sher: []Yes [x] No Restraints: []Yes [x] No Patient discussed and plan of day developed from multidisciplinary rounds between Cardiothoracic Surgery (Cardiothoracic Surgeon, CHIQUIS) and Critical Care Attending Critical Care time spent 22 minutes. The time involved in the performance of this care was exclusive of separately billable procedures, teaching time and treating other patients. The time was spent personally by myself for the following activities: examination of the patient, ordering and/or performing treatment, reviewing the laboratory and radiographic studies, and if applicable, ventilator management and blood gas interpretation. Cardiac Core Medications: ASA, Statin, and BB EF: 07/25/2024- 55% Blood Conservation: transfused postop Business Division Chair: Dr. Tineo Cosigned by Mike Mosley MD at 07/27/2024 11:30 AM EST Associated attestation - Mike Mosley MD - 07/27/2024 11:30 AM EST I have personally performed a face to face diagnostic evaluation on this patient today on 07/27/24. Labs, imaging studies, and electronic medical record notes on [employer] have been reviewed by me. This note documented and discussed by the []community arts officer []Fellow [x] CHIQUIS reflects my history, exam and medical decision making. I have reviewed and agree with the care plan. Changes were made in the orders as necessary. ROS documentation was reviewed and negative unless otherwise stated in the HPI. My history, exam, assessment and plan are as follows: Some elements copied from my notes, which have been updated where appropriate. All reflect current medical decision making from 07/27/24. Physical Exam listed was completed in entirely on 07/27/24 and is unchanged except where noted. Time spent for coordination of care: a subsequent visit: 25 minutes (Level I) In chair, no BM Heart RRR Lungs clear anteriorly, unlabored Abd soft Severe multivessel CAD 07/25 s/p CABG x 3 Post op pulm management Anemia, thrombocytopenia expected post op On ASA, statin, b-aric Lasix diuresis as tolerated Wean O2 as tolerated Lactulose x 3 doses to help promote BM Images from the original note were not included. PHYSICAL THERAPY [facility] Initial Evaluation Name/MRN: Sharonda Flores ([id number]) Evaluation Date: 07/26/2024 Date of : 1955 Admission Date: 07/25/2024 5:14 AM Age: 69 y.o. Room/Bed: T1-109/T1-109 A Discharge Recommendation: Continue to assess pending progress, Home with assist PRN Equipment Needed: No Assessment IMPRESSION: 69 y.o. pt admitted to [facility] for CAD, s/p CABG x3 07/25. They were Min A for bed mobility, CGA for transfers, and CGA for ambulation. He is from home alone, indep DIRECT OF REAL ESTATE. Currently limited d/t fatigue. Would anticipate home with assistance PRN at discharge with progress. Admitting Diagnosis: CAD, s/p CABG x3 07/25 Prognosis: good Performance Deficits /Impairments: Increased Pain, Decreased Functional Mobility, and Decreased Endurance Decision Making: Medium Complexity Subjective Pt seated in recliner. Agreeable to PT session. Cleared by nursing Pain: Gonzalez-Manuel Pain Ratin = Hurts little more Pain Location: pulling in chest Past Medical History: Past Medical History: Diagnosis Date Arrhythmia v-fib/ arrest CAD (coronary artery disease) Cancer (CMS/HCC) ([facility]) LUNG UPPER RIGHT - SURGERY FOR REMOVAL 02/09/2024 Congenital heart disease Hyperlipidemia Hypertension [place], old 2011- [facility] Sleep apnea NO CPAP WORN Past Surgical History: Past Surgical History: Procedure Laterality Date ADENOIDECTOMY APPENDECTOMY CARDIAC CATHETERIZATION N/A 07/05/2024 Performed by Becky Tineo MD at [facility] Cardiac Cath/EP Lab CARDIAC PROCEDURE 03/15/2012 BMS mid dis RCA CARDIAC PROCEDURE 03/2012 REBECCA to mis dist LAD CARDIAC PROCEDURE 05/2012 REBECCA to prox LCx COLONOSCOPY CORONARY ANGIOPLASTY 05/2012 circ, distal RCA, & LAD TONSILLECTOMY Admission Diagnosis: Patient Active Problem List Diagnosis Date Noted 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 Fall Risk: Vicente Fall Risk Score: 20 (Low Risk) Precautions/Restrictions: Sternal Precautions: No lifting greater than 10 lbs. Ok for modified UE precautions using Keep Your Move in the Tube technique Lines/Drains/Airways: PIV, tele, chest tube to wall suction, external pacer, central line, 2L O2 via NC, sher Fall Precautions Family/Caregiver Present: none Overall Cognitive Status: WNL Overall Orientation Status: Oriented x4 Vision: wears glasses at all times and and are being used during the eval Hearing: normal Social/Functional History Patient admitted from home. Lives With: Alone Type of Home: mobile home Home Layout: Single Level Home Home Access: Level Entry Bathroom Shower/Tub: Toilet: Standard Home Equipment: none Homemaking Responsibilities: Independent Receives Help From: None Active Unisaw Operator: Yes Occupation: retired Prior Level of Function Prior Level of ADL Function: Independent Prior Level of Mobility: Independent; Device: None Prior Level of Transfers: Independent Objective Lower Extremity Assessment AROM: WFL PROM: WFL Strength: WFL (4/5 overall) Sensation: WFL Balance: Balance During Session: Posture: good Sitting - Static: Supervision Sitting - Dynamic: Supervision Standing - Static: Contact Guard Standing - Dynamic: Contact Guard Standing at chair ~1 min prior to ambulation Bed Mobility: Sit to supine: Min Assist Cues for log rolling, good maintenance of sternal precautions. Cues for sequencing. Slight BLE assist Transfers Sit to stand: Contact Guard Stand to sit: Contact Guard Chair x1 at [facility], cues for sequencing Ambulation Ambulation 1 Assistive device(s) used: Neblaireie Assist level: Contact Guard Distance (ft): 100' + 10' Quality of gait: shuffling, wide ZANE, slow jb, 2 standing rest breaks, vitals WFL Exercises Performed P&C therex x4 each exercise with minimal cuing IS use to 750 mL x5 trials Outcome Measures AM-PAC How much HELP from another person do you currently need Turning from your back to your side while in a flat bed without using bedrails?: None Moving from lying on your back to sitting on the side of a flat bed without using bedrails?: A Little Moving to and from a bed to a chair (including a wheelchair)?: A Little Standing up from a chair using your arms (wheelchair or bedside chair)?: A Little Walking in a hospital room?: A Little Stair climbing assessed?: No AM-PAC Inpatient Mobility Raw Score (No Stairs) : 16 JH-HLM -M Score: Walked 25 ft or more (i.e. walked outside of room) Plan Pt would benefit from skilled acute PT services to address Strengthening, Gait Training, Balance Training, Functional Mobility Training, Endurance Training, Safety Education and Training, Stair Training, Equipment Evaluation/Education, Neuromuscular Re-Education Training, and Patient/Caregiver Training. Frequency: 5x/week for 4 weeks Barriers: Impaired balance Safety/Education Safety Safety Devices in place: call light within reach, left in bed, and nurse notified Restraints: No Education Education Given To: patient Education Provided: PT Role, PT Goals, Gait Training, Plan of Care, Home Exercise Program, Precautions, Energy Conservation, Equipment, Fall Prevention Education, Discharge Recommendations, and Benefits of Increasing Activity Education Method: Verbal and Printed Information Barriers to Learning: None Education Outcome: Verbalized Understanding Goals Patient Stated Goal: to feel better Encounter Problems Encounter Problems (Active) Cardiac Patient will perform bed mobility with independence in order to improve independence and prepare for out of bed mobility. Start: 07/26/24 Expected End: 08/23/24 Patient will complete sit to stand transfer with independence to none in order to improve safety and prepare for out of bed mobility. Start: 07/26/24 Expected End: 08/23/24 Patient will ambulate 600 feet or ambulate 5 minutes with independence with RPE of 14 or lower. Start: 07/26/24 Expected End: 08/23/24 Patient will be independent with P&C exercises. Start: 07/26/24 Expected End: 08/23/24 Patient will be independent with managing secretions and home walking program. Start: 07/26/24 Expected End: 08/23/24 Pain - Adult Therapy Time Individual Co-Treatment Co-Evaluation Time In 0800 Time Out 0825 Minutes 25 Timed Code Treatment Minutes: (mod eval, 1 gait) Elida Vázquez PT Patient's Physical Therapy Plan of Care supervision is transferred to a [facility] Physical Therapist. Goals and/or treatment plan was established in collaboration with patient/family/other representatives. Department of Internal Medicine Division of Endocrinology, Diabetes, & Metabolism Endocrinology Note Patient Name: Sharonda Flores : 1955 AGE: 69 y.o. Room/Bed: T1-109/T1-109 A Admission Date: 07/25/2024 Visit Date: 07/26/2024 Reason for Endocrine Consult: Stress hyperglycemia Provider/Team Requesting Consult: Cardiology PCP: Tima Tello MD Outpt Industrial Therapist: No ASSESSMENT: Stress induced hyperglycemia Steroid induced hyperglycemia Status post CABGx3 CAD PLAN: Discontinue insulin gtt Start hlog low dose SS with meals Monitor ICU goal <180 GMF goal <150 POCT BG ACHS Hypoglycemia management per protocol Carb controlled diet ANTICIPATED ENDOCRINE HOME GOING RECOMMENDATIONS: Optimized for Discharge from Endocrine standpoint: Yes Home Going Endocrine Rx Recommendations-- None Outpt Follow Up-- PCP SUBJECTIVE/HPI: CHIEF COMPLAINT: No chief complaint on file. Status post CABG Interval events 07/26 Has been extubated. Chest tube in place. On pacer Gtt: none at this time Blood glucose still tightly controlled Discussed with patient, no history DM or thyroid Feeling better, sore Has not eaten, plans to eat later today. Drinking water and carlos manuel young 07/25 Intubated and chest tube in place, on pacer Gtt: propofol and insulin (off at time of consult) No pressors are on Received dexamethasone earlier today Blood glucose tightly controlled at this time No history of DM, no A1C available Will clarify patient medical history once extubated Type of DM: NA Onset of DM: NA Home DM Medication Regimen: NA DM control (last A1c/glucose data): Lab Results Component Value Date HGBA1C 6.0 (H) 07/25/2024 Glucose Date/Time Value Ref Range Status 07/26/2024 06:59 AM 112 (H) 70 - 100 mg/dL Final 07/26/2024 04:07 AM 101 (H) 70 - 100 mg/dL Final 07/26/2024 01:58 AM 113 (H) 70 - 100 mg/dL Final 07/26/2024 01:16 AM 107 (H) 70 - 100 mg/dL Final 07/26/2024 12:07 AM 98 70 - 100 mg/dL Final 07/25/2024 11:05 PM 108 (H) 70 - 100 mg/dL Final Review of Systems Constitutional: Positive for fatigue. Negative for activity change, appetite change and unexpected weight change. Gastrointestinal: Negative for diarrhea, nausea and vomiting. Endocrine: Negative for polydipsia, polyphagia and polyuria. Genitourinary: Negative for dysuria. Musculoskeletal: Positive for myalgias. Skin: Negative for color change and pallor. ROS negative except for those mentioned in HPI. OBJECTIVE: Vitals: 07/26/24 0615 07/26/24 0630 07/26/24 0645 07/26/24 0700 BP: 111/56 113/55 BP Location: Patient Position: Pulse: 74 74 68 69 Resp: Temp: TempSrc: SpO2: 94% 96% 97% 98% Weight: Height: Physical Exam Vitals reviewed. Constitutional: General: He is not in acute distress. Appearance: Normal appearance. HENT: Head: Normocephalic and atraumatic. Right Ear: External ear normal. Left Ear: External ear normal. Nose: Nose normal. Mouth/Throat: Pharynx: Oropharynx is clear. Eyes: Extraocular Movements: Extraocular movements intact. Cardiovascular: Rate and Rhythm: Normal rate. Pulmonary: Effort: Pulmonary effort is normal. Chest: Comments: Chest tube in place Skin: General: Skin is warm and dry. Comments: Midline incision intact Neurological: General: No focal deficit present. Mental Status: He is alert and oriented to person, place, and time. Psychiatric: Mood and Affect: Mood normal. Behavior: Behavior normal. Thought Content: Thought content normal. Judgment: Judgment normal. 24 hour intake/output: Intake/Output Summary (Last 24 hours) at 07/26/2024 0851 Last data filed at 07/26/2024 0700 Gross per 24 hour Intake 7295 ml Output 4588 ml Net 2707 ml Diet: Adult diet Regular; No Added Salt (3-4 gm); 5 carb choices (75 gm/meal) Medications (as per EMR): HomeMeds: Current Outpatient Medications Medication Instructions aspirin 81 mg, Daily before breakfast atorvastatin (LIPITOR) 80 mg, Oral, Every evening carvedilol (COREG) 6.25 mg, Oral, 2 times daily ezetimibe (ZETIA) 10 mg, Daily before breakfast isosorbide mononitrate ER (IMDUR) 30 mg, Oral, Daily, Do not crush or chew. mupirocin (Bactroban) 2 % ointment Apply liberal amount per nostril the night before surgery and then again the morning of surgery nitroglycerin (Nitrostat) 0.4 MG SL tablet DISSOLVE 1 TABLET UNDER THE TONGUE EVERY 5 MINUTES NEEDED. Scheduled Meds:acetaminophen, 1,000 mg, Oral, q8h aspirin, 81 mg, Oral, Daily atorvastatin, 80 mg, Oral, Daily ceFAZolin, 2,000 mg, IntraVENous, q8h chlorhexidine, 15 mL, Mouth/Throat, BID insulin lispro, 0-6 Units, SubCUTAneous, TID WC Lidocaine, 1 patch, Topical, Daily metoclopramide, 10 mg, IntraVENous, q6h mupirocin, , Nasal, BID pantoprazole, 40 mg, Oral, qAM AC polyethylene glycol (PEG) 3350, 17 g, Oral, Daily senna-docusate sodium, 2 tablet, Oral, Nightly simethicone, 80 mg, Oral, 4x daily sodium chloride 0.9%, 5-40 mL, IntraCATHeter, q8h Continuous Infusions:lactated ringers, 250 mL, Last Rate: Stopped (07/25/24 4786) sodium chloride, 20 mL/hr, Last Rate: 20 mL/hr (07/25/24 1230) PRN Meds:PRN medications: albumin human, calcium gluconate, dextrose, dextrose, glucagon (rDNA), glucose, ipratropium-albuterol, lactated ringers, magnesium hydroxide, magnesium sulfate OR magnesium sulfate, methocarbamol, morphine sulfate OR morphine sulfate, naloxone, ondansetron ODT OR ondansetron, oxyCODONE OR oxyCODONE, potassium chloride OR potassium chloride OR potassium chloride, potassium chloride CR, sodium chloride 0.9% Diagnostic Workup: I reviewed pertinent Laboratory results, Radiographic results, and Other Clinical Notes at the time of today's encounter. Labs: No components found for: LABA1C No components found for: EAG Lab Results Component Value Date NA 142 07/26/2024 K 4.5 07/26/2024 CL 111 (H) 07/26/2024 CO2 23 07/26/2024 BUN 16 07/26/2024 CREATININE 1.14 07/26/2024 GLUCOSE 100 07/26/2024 CALCIUM 8.4 (L) 07/26/2024 Lab Results Component Value Date CHLPL 217 10/21/2019 CHOL 242 (A) 09/30/2020 Lab Results Component Value Date TRIG 164 (A) 09/30/2020 TRIG 170 10/21/2019 Lab Results Component Value Date HDL 34 (L) 09/30/2020 HDL 32 (A) 10/21/2019 Lab Results Component Value Date LDLCALC 151 10/21/2019 Lab Results Component Value Date VLDL 34 10/21/2019 Lab Results Component Value Date CHOLHDLRATIO 7 09/30/2020 CHOLHDLRATIO 6.78 10/21/2019 No results found for: [id number] No results found for: TSH, K6XIWLB, J4CPNGR, THYROIDAB Radiology reportsas per the Radiologist Radiology: POCT glucose meter Result Date: 07/25/2024 Performed by: [facility], [address] [place] [address] CLIA ID: [id number] History/Other: Past Medical History: Past Medical History: Diagnosis Date Arrhythmia v-fib/ arrest CAD (coronary artery disease) Cancer (CMS/HCC) (HCC) LUNG UPPER RIGHT - SURGERY FOR REMOVAL 02/09/2024 Congenital heart disease Hyperlipidemia Hypertension [place], old [place] Sleep apnea NO CPAP WORN Past Surgical History: Past Surgical History: Procedure Laterality Date ADENOIDECTOMY APPENDECTOMY CARDIAC CATHETERIZATION N/A 07/05/2024 Performed by Becky Tineo MD at [facility] Cardiac Cath/EP Lab CARDIAC PROCEDURE 03/15/2012 BMS mid dis RCA CARDIAC PROCEDURE 03/2012 REBECCA to mis dist LAD CARDIAC PROCEDURE 05/2012 REBECCA to prox LCx COLONOSCOPY CORONARY ANGIOPLASTY 05/2012 circ, distal RCA, & LAD TONSILLECTOMY Allergy(ies): Allergies Allergen Reactions Pcn [Penicillins] Rash Family History: Family History Problem Relation Name Age of Onset Heart disease Father Thad No Known Problems Mother Cancer Maternal Grandfather Mother Social History: Social History Tobacco Use Smoking status: Former Current packs/day: 0.00 Average packs/day: 2.0 packs/day for 56.1 years (112.2 ttl pk-yrs) Types: Cigarettes Start date: 1955 Quit date: 08/17/2011 Years since quittin.9 Smokeless tobacco: Former Quit date: 1970 Tobacco comments: Quit smoking: currently occ cigar Vaping Use Vaping status: Never Used Substance Use Topics Alcohol use: No Drug use: No Portions of the information within this encounter were entered using an electronic dictation system. Best attempts were made to edit/proofread the information prior to note completion. Despite the review of information, some errors may remain. If there are questions related to the information contained within the note please contact the signing physician directly. I spent 15 minutes with the pt which involved coordination of care, medical evaluation, review of records, and/or counseling of the pt regarding his/her condition/disease state/prognosis on the date of this note. Cosigned by Patsy Telles MD at 07/26/2024 1:14 PM EST Associated attestation - Patsy Telles MD - 07/26/2024 1:14 PM EST I have personally performed a face to face diagnostic evaluation on this patient. 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 My findings are as follows: Reported pain at site of surgery Denies nausea or vomiting Blood glucose readings are reasonable on minimal insulin drip requirements Vitals: BP 116/58 Pulse 76 Temp 36.7 C (98 F) (Temporal) Resp 20 Ht 5' 5 (1.651 m) Comment: per pt and chart Wt 164 lb (74.4 kg) SpO2 91% BMI 27.29 kg/m Respiratory: No respiratory distress Cardiovascular System: No lower extremity edema A/P Stress hyperglycemia status post CABG Insulin drip requirements are very minimal so discontinue insulin drip Start Humalog low-dose correction before meals Obtain a blood glucose readings before meals and at bedtime Monitor blood glucose readings in the coming 24 hours Do not anticipate that patient will need diabetes regimen on discharge but we will monitor blood glucose readings I spent 20 minutes with the pt which involved in coordination of care, medical evaluation, review of records, and/or counseling of the pt regarding her condition/disease state/prognosis on the date of this note. Old records including available PCP, ED notes and or other specialists notes are reviewed. LABs and/or imaging are reviewed as detailed in the resident's/COREMAKER HELPER/PIG MACHINE SUPERVISOR's note Images from the original note were not included. Cardiothoracic Surgery/CCM Progress Note PATIENT NAME: Sharonda Flores DATE: 07/26/24 HPI: Sharonda Flores is a 68 y.o. male referred by Dr. Tineo for CABG. Patient's PMHx includes CAD (s/p several PCI, most recently 2011 - LAD, LCx, distal RCA with known PHYSICIAN NON INVASIVE CARDIOLOGIST D2), preserved LVEF (65%), HTN, HLD, PAD (follows with vascular at [facility]), prior tobacco use, pulmonary nodules, adenocarcinoma s/p RUL lobectomy 01/2024 (follows with Pulmonology), and psoriasis. Patient had presented to [facility] ED with a sharp pain in the center of his chest with left shoulder ache. He had associated diaphoresis and nausea. EKG was normal.Troponin was WNL. Discharged and advised to follow up with Cardiology. A stress echocardiogram was ordered and completed on 06/25/24 which was abnormal. He then underwent a heart catheterization on 07/08/24 which demonstrated multivessel CAD. Seen by Dr. Martinez in OP setting, agreeable to CABG, scheduled for 07/25/24. Surgery/Procedure: 07/25/24: Dr. Martinez- CABG x3 (GREY-LAD, SVG-Diag, SVG-PDA), LAD endarterectomy LEVH, ZARI Interval History: 07/26/24, POD# 1: Weaned off levophed overnight. VSS, Afebrile, on 1L NC. Transfused with 2 PRBC and 2 Cryo postop. Sitting up in bed, reports some muscle spasms. Hgb- 8.8 Plts- 57 Cr- 1.14 Review of Systems Constitutional: Positive for activity change, appetite change and fatigue. Negative for diaphoresis and fever. Respiratory: Negative for cough, shortness of breath and wheezing. Cardiovascular: Negative for chest pain, palpitations and leg swelling. Gastrointestinal: Negative for abdominal distention, abdominal pain, nausea and vomiting. Skin: Negative for color change, pallor and rash. Objective: CT output cc/24hrs: 1,248 mL UO cc/24hrs: 3,190 mL Last BM Date: 07/24/24 (preop) Vitals: BP: (!) 129/44, MAP (mmHg): 71, BP Method: Arterial line Heart Rate: 76 Resp: 12 Temp: 37.1 C (98.7 F), Temp Source: Temporal BMI (Calculated): 27.29 Pacer Wires: V-wires CXR: BMP: Recent Labs 07/25/24 1156 07/25/24 1313 07/26/24 0009 NA 140 143 142 K 4.0 3.8 4.5 CL 113* 112* 111* CO2 23 24 23 BUN 15 15 16 CREATININE 0.93 0.94 1.14 CALCIUM 10.8* 9.4 8.4* MG 5.5* -- 2.6 PHOS 2.2* -- -- CBC: Recent Labs 07/25/24 1313 07/25/24 1550 07/25/24 2225 07/26/24 0520 WBC 5.0 5.9 -- 4.4 HGB 10.4 9.6* 7.9* 8.5* 8.8* HCT 29.3* 23.7* 25.8* 26.2* PLT 58* 67* -- 57* MCV 85.7 84.9 -- 85.6 RDW 13.1 13.2 -- 14.4 INR: Recent Labs 07/25/24 1156 07/25/24 1550 07/26/24 0009 INR 1.6* 1.3* 1.1 Physical Exam Cardiovascular: Rate and Rhythm: Normal rate and regular rhythm. Heart sounds: Normal heart sounds. No murmur heard. No friction rub. Pulmonary: Effort: Pulmonary effort is normal. Breath sounds: Examination of the right-lower field reveals decreased breath sounds. Examination of the left-lower field reveals decreased breath sounds. Decreased breath sounds present. No wheezing or rhonchi. Genitourinary: Comments: Sher catheter to straight drain Musculoskeletal: Right lower leg: No edema. Left lower leg: No edema. Skin: General: Skin is warm and dry. Capillary Refill: Capillary refill takes less than 2 seconds. Findings: Bruising and ecchymosis present. Comments: Surgical Incisions: well approximate; clean dry with no drainage noted. Surrounding skin no redness, warmth, or signs of infection noted. Neurological: Mental Status: He is alert. Psychiatric: Behavior: Behavior is cooperative. Assessment: CAD s/p multiple PCI's, now s/p CABG HTN HLD PAD Adenocarcinoma s/p RUL lobectomy (02/17/24) Former smoker Psoriasis Post operative Pulm Management: Normal Post-operative Course Post-operative Atrial Fibrillation: []Yes [x] No Acute blood loss anemia/consumptive coagulopathy Plan: Patient status: ICU Medications: ASA/Statin Hold BB this am- will start in afternoon if BP stable PRN Methocarbamol for muscle spasms Scheduled reglan & simethicone x4 doses- gastric bubble on am CXR GI prophy: PO protonix DVT prophy:TEDs, SCDs, and holding d/t thrombocytopenia Interventions: Continue CT-> suction Repeat labs in afternoon OOB to chair, progressive mobility Pulmonary hygiene: IS and Acapella Consults: Endocrine following for insulin needs PT/OT: Needs assessment TCC/Discharge Planning TBD Central Line: [x]Yes [] No Arterial Line: [x]Yes [] No Sher: [x]Yes [] No Restraints: []Yes [x] No Patient discussed and plan of day developed from multidisciplinary rounds between Cardiothoracic Surgery (Cardiothoracic Surgeon, CHIQUIS) and Critical Care Attending Critical Care time spent 25 minutes. The time involved in the performance of this care was exclusive of separately billable procedures, teaching time and treating other patients. The time was spent personally by myself for the following activities: examination of the patient, ordering and/or performing treatment, reviewing the laboratory and radiographic studies, and if applicable, ventilator management and blood gas interpretation. Cardiac Core Medications: ASA and Statin EF: 07/25/2024- 55% Blood Conservation: transfused postop Business Division Chair: Dr. Tineo Cosigned by Mike Mosley MD at 07/26/2024 2:16 PM EST Associated attestation - Mike Mosley MD - 07/26/2024 2:16 PM EST I have personally performed a face to face diagnostic evaluation on this patient today on 07/26/24. Labs, imaging studies, and electronic medical record notes on [facility] have been reviewed by me. This note documented and discussed by the []community arts officer []Fellow [x] CHIQUIS reflects my history, exam and medical decision making. I have reviewed and agree with the care plan. Changes were made in the orders as necessary. ROS documentation was reviewed and negative unless otherwise stated in the HPI. My history, exam, assessment and plan are as follows: Some elements copied from my notes, which have been updated where appropriate. All reflect current medical decision making from 07/26/24. Physical Exam listed was completed in entirely on 07/26/24 and is unchanged except where noted. Pt no longer critical care. 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 x 3 Post op pulm management Anemia, thrombocytopenia expected post op HTN, HLD, PAD On ASA, statin Wean O2 as tolerated [facility] Respiratory Care Department Progress Note Spontaneous Awakening Trial Wean Screen Safety Screen Spontaneous Breathing Trial (SBT - RT) : Proceed with SBT - No exclusion criteria met (07/25/24 144) Spontaneous Breathing Trial Weaning Start Time: 1441 (07/25/24 1441) Weaning Tidal Volume: 522 mL (07/25/24 1441) Weaning Respiratory Rate: 13 (07/25/24 1441) Spontaneous Minute Volume (MV): 7.07 (07/25/24 1441) Total RSBI: 40 (07/25/24 1441) Weaning Tolerance: Good (07/25/24 1441) Weaning Stop Time: 1520 (07/25/24 1441) Weaning Duration (min): 40 (07/25/24 1441) Spontaneous Breathing Trial (SBT - RT) Outcome: SBT Passed (07/25/24 144) Vent Settings Vent Mode: Spontaneous (07/25/24 1500) Mandatory Type: Pressure Control (07/25/24 144) Resp Rate (Set): 18 (07/25/24 1441) Vt (Set, mL): 390 mL (07/25/24 144) FiO2 (%): 40 % (07/25/24 1500) PEEP/CPAP (cm H2O): 8 cm H20 (07/25/24 144) Inspiratory Time (sec): 0.8 sec (07/25/24 144) Vitals MAP (mmHg): 71 (07/25/24 1230) Heart Rate: 69 (07/25/24 1500) Resp: 12 (07/25/24 1500) SpO2: 100 % (07/25/24 1500) Suctioning/Secretions ABG results Recent Labs 07/25/24 1156 07/25/24 1313 PHART 7.392 7.260* [id number] 37.9 58.8* PO2ART 339.5* 154.5* [id number] 22.5 25.8* [id number] Vent 60% Oxygen Does this patient meet criteria for termination of mechanical ventilation Yes- Notified physician below Name of physician notified via secure chat or in person : Mike Mosley MD (NA if patient did not meet criteria) Comments: Thank you for involving Respiratory in the care of this patient, documented in this encounter [facility] 07-31-2024 Note Formatting of this n ote might be different from the original. [facility] home [facility]. [facility] 07-31-2024 Note Formatting of this n ote might be different from the original. [facility] notified of discharge home today. [facility] 07-31-2024 Note Formatting of this n ote might be different from the original. Patient Choice Patient Name: SHARONDA FLORES Date of : 1955 All Providers Sent Referral Name: [facility] Phone: [phone] Address: [address] [place] [address] [facility] 07-31-2024 Note Formatting of this n ote might be different from the original. Patient Choice Patient Name: SHARONDA FLORES Date of : 1955 All Providers Sent Referral Name: [facility] Phone: [phone] Address: [address] [place] [address] [facility] 07-31-2024 Hospital Discharg e instructions Yara Flowers, PULLER OVER - DISASTER RECOVERY MANAGER - 07/31/2024 8:45 AM EST Images from the original note were not included. [facility]: Cardiothoracic Surgery [address] [place] [address] 302 [facility] #[phone] Notify us if the following occur - Increased tenderness, redness, or swelling of your incisions. - Any drainage from the chest incision (clear or pink drainage from the leg incision or chest tube site is common). - Angina symptoms like those you had before surgery - Sharp pain in chest, neck or shoulder that is worse when taking a deep breath - Persistent fever greater than 100 degrees F or 38 degrees C - Flu-like symptoms-chills, aches, fever, increased fatigue - Heart rate faster than 150 beats/minute with shortness of breath or new irregular heart rate. - Any unusual bleeding - Shortness of breath not relieved by rest - Weight gain of three pounds in one day or five pounds over one week Activity Instructions - Sternal Precautions for 6 weeks - Do not lift, push, or pull anything heavier than 10 pounds for 6 weeks (a gallon of milk weighs 8 pounds). - Do not drive until you have been given permission by your surgeon/provider and until you are off narcotic/opioid pain medication - It is ok to sleep on your side if you prop pillows to support your back. Do not sleep on your stomach. - Walk at least 4 times a day, start with 5 minute intervals, increase minutes walked each day. Do not walk on a treadmill - Balance rest and activity during your recovery - Use the stairs, but go slowly, Use the handrail for balance but do not pull yourself up with your arms. - Shower daily. Do not take your heart medication right before you shower. You could become lightheaded from your blood pressure and heart medication. Always have someone nearby to assist you. - Do not take a tub bath or use a hot tub until all incision are completely healed (no scab). - Put sunshine hose on in AM and remove at bedtime. Elevate your feet above level of heart when you are sitting. - Cough and deep breathe and use incentive spirometer every hour (10x/hour while awake for two weeks). Other Instructions - Weigh yourself daily at the same time (after you urinate but before breakfast) - Keep a record of your daily weight, and bring to your first post op office visit - Take all medications as prescribed. Bring all your medication bottles to any follow up office visit Incision Care - Wash your sternal incision with anti-bacterial soap and warm water. Pat dry, and leave open to air. Do not use any lotions, or powders, or ointments. Onelia Saldana RN - 07/30/2024 12:18 PM EST Images from the original note were not included. Continuity of Care Form Patient Name: Sharonda Flores : 1955 Admit date: 07/25/2024 Discharge date: Code Status Order: Full Code Advance Directives: N Admitting Physician: Brooklynn Martinez DO PCP: Tima Tello MD Discharging Nurse: Discharging Hospital Unit/Room#: T1-109/T1-109 A Discharging Unit Phone Number: Emergency Contact: Extended Emergency Contact Information Primary Emergency Contact: Douglas Flores Address: [place] [address] [facility] Mobile Relation: Other Past Surgical History: Past Surgical History: Procedure Laterality Date ADENOIDECTOMY APPENDECTOMY CARDIAC CATHETERIZATION N/A 07/05/2024 Performed by Becky Tineo MD at [facility] Cardiac Cath/EP Lab CARDIAC PROCEDURE 03/15/2012 BMS mid dis RCA CARDIAC PROCEDURE 03/2012 REBECCA to mis dist LAD CARDIAC PROCEDURE 05/2012 REBECCA to prox LCx COLONOSCOPY CORONARY ANGIOPLASTY 05/2012 circ, distal RCA, & LAD TONSILLECTOMY Immunization History: Immunization History Administered Date(s) Administered Pfizer SARS-CoV-2 Vaccination 11/27/2020, 12/18/2020 Active Problems: Medical Problems Problem List * (Principal) 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) Hypotension Atypical chest pain Hyperlipidemia Jaw pain Coronary artery disease involving chilkoot coronary artery of chilkoot heart without angina pectoris Chest pain Abnormal stress echocardiogram Isolation/Infection: No active isolations No active infections Nurse Assessment: Last Vital Signs: BP 101/52 (BP Location: Left arm, Patient Position: Lying) Pulse 79 Temp 36.8 C (98.2 F) (Temporal) Resp 18 Ht 1.651 m (5' 5) Comment: per pt and chart Wt 70.8 kg (156 lb) SpO2 96% BMI 25.96 kg/m Last documented pain score (0-10 scale): Last Weight: Wt Readings from Last 1 Encounters: 07/30/24 70.8 kg (156 lb) Mental Status: {YUE Patient Mental Status:34296} IV Access: {YUE IV Access:50141} Nursing Mobility/ADLs: Walking {RHONA ADL:::Independent} Transfer {RHONA ADL:01668::Independent} Bathing {RHONA ADL:84188::Independent} Dressing {RHONA ADL:81032::Independent} Toileting {RHONA ADL:10330::Independent} Feeding {RHONA ADL:56226::Independent} Director Of Golf {RHONA ADL:88977::Independent} Med Delivery {yes/no:29175} Wound Care Documentation and Therapy: Wound/Incision 07/25/24 Incision Leg Anterior;Distal;Left;Upper (Active) Site Assessment Clean;Dry;Intact 07/30/24 0800 Diana-Wound Assessment Clean;Dry;Intact 07/30/24 0800 Odor None 07/30/24 0400 Drainage Amount None 07/30/24 0400 Primary Dressing Liquid dressing adhesive 07/30/24 0800 Dressing Status Clean, dry & intact 07/30/24 0800 Number of days: 5 Wound/Incision 07/25/24 Incision Sternum Lower (Active) Site Assessment Clean;Dry;Intact 07/30/24 0800 Diana-Wound Assessment Clean;Dry;Intact 07/30/24 0800 Odor None 07/30/24 0400 Drainage Amount None 07/30/24 0400 Primary Dressing Liquid dressing adhesive 07/30/24 0800 Dressing Status Clean, dry & intact 07/30/24 0800 Number of days: 5 Elimination: Continence: Bowel: {yes/no:82089} Bladder: {yes/no:56993} Urinary Catheter: {YUE Urinary Catheter:39204} Colostomy/Ileostomy/Ileal Conduit: {YES / NO:61985} Date of Last BM: Intake/Output Summary (Last 24 hours) at 07/30/2024 1218 Last data filed at 07/30/2024 1215 Gross per 24 hour Intake 360 ml Output 125 ml Net 235 ml I/O last 3 completed shifts: In: 1380 (19.1 mL/kg) [P.O.:1380] Out: 575 (8 mL/kg) [Urine:575 (0.2 mL/kg/hr)] Weight: 72.2 kg Safety Concerns: {YUE Safety Concerns:42160} Impairments/Disabilities: {YUE Impairments/Disabilities:52844} Nutrition Therapy: Current Nutrition Therapy: {YUE Diet List:32830} Routes of Feeding: {routes of feedin} Liquids: {liquid consistency:89693} Daily Fluid Restriction: {daily fluid restriction:91854} Last Modified Barium Swallow with Video (Video Swallowing Test): {done not done:39532} Treatments at the Time of Hospital Discharge: Respiratory Treatments: Oxygen Therapy: {Therapy; copd oxygen:00891} Ventilator: {YUE Ventilator:02537} Rehab Therapies: {GEN THERAPY DISCIPLINE SCAL:0809054} Weight Bearing Status/Restrictions: {POD WEIGHT BEARIN} Other Medical Equipment (for information only, NOT a DME order): {Assistive Devices DME:71077} Other Treatments: Patient's personal belongings (please select all that are sent with patient): {YUE Patient Belongings:52122} RN SIGNATURE: {E-signature:97071} CASE MANAGEMENT/SOCIAL WORK SECTION Inpatient Status Date: Discharging to Facility/ Agency Name: [facility] Address: [address] [place] [address] Dialysis Facility (if applicable) Name: Address: Dialysis Schedule: Phone: Fax: Director Of Reimbursement/Cert Occupational Therapy Asst signature: {E-signature:94972} PHYSICIAN SECTION Name: Sharonda Flores Prognosis: {Rehab Prognosis:69510} Condition at Discharge: {Patient Condition:77657} Rehab Potential (if transferring to Rehab): {Rehab Prognosis:72481} Recommended Labs or Other Treatments After Discharge: The individual is being admitted to a nursing facility directly from an [facility] or a unit of a [facility] that is not operated by or licensed by [facility] under section 5119.14 or 5160-3-15.1 5 The individual requires the level of services provided by a nursing facility for the condition for which he or she was treated in the hospital and, Physician Certification: I certify the above information and transfer of Sharonda Flores is necessary for the continuing treatment of the diagnosis listed and that he requires {YUE Level of Care:79573} for {greater less than:95375} 30 days. Update Admission H&P: {YUE Changes in H&P:02123} PHYSICIAN SIGNATURE: {E-signature:35533} documented in this encounter [facility] 07-31-2024 Note Discharge Summary: C ardiothoracic Surgery Sharonda Flores, 69 y.o., 1955 ADMIT DATE: 07/25/2024 DISCHARGE DATE: 07/31/2024 VISIT STATUS: Admission CODE STATUS: Full Code DISCHARGING SURGEON: Brooklynn Martinez DO, Office Number: [phone] DISCHARGE DIAGNOSES: CAD s/p multiple PCI's, now s/p CABG HTN HLD PAD Adenocarcinoma s/p RUL lobectomy (02/17/24) Former smoker Psoriasis Post operative Pulm Management: Normal Post-operative Course Post-operative Atrial Fibrillation: [x]Yes [] No Acute blood loss anemia/consumptive coagulopathy -Amio taper for brief episodes of afib. -Aspirin, statin and BB. -Plavix for LAD endarterectomy. -Oxy for 7 days, robaxin for 10 days. -External referral to Ortho for shoulder pain. BMI CLASSIFICATION:Overweight (BMI 25.0-29.9) TREATMENT TEAM: Primary Care Physician: Tima Tello MD Business Division Chair: Dr. Tineo SURGERY: 07/25/24: Dr. Martinez- CABG x3 (GREY-LAD, SVG-Diag, SVG-PDA), LAD endarterectomy [facility] COURSE: Sharonda Flores is a 68 y.o. male referred by Dr. Tineo for CABG. Patient's PMHx includes CAD (s/p several PCI, most recently 2011 - LAD, LCx, distal RCA with known PHYSICIAN NON INVASIVE CARDIOLOGIST D2), preserved LVEF (65%), HTN, HLD, PAD (follows with vascular at [facility]), prior tobacco use, pulmonary nodules, adenocarcinoma s/p RUL lobectomy 01/2024 (follows with Pulmonology), and psoriasis. Patient had presented to [facility] ED with a sharp pain in the center of his chest with left shoulder ache. He had associated diaphoresis and nausea. EKG was normal.Troponin was WNL. Discharged and advised to follow up with Cardiology. A stress echocardiogram was ordered and completed on 06/25/24 which was abnormal. He then underwent a heart catheterization on 07/08/24 which demonstrated multivessel CAD. Seen by Dr. Martinez in OP setting, agreeable to CABG, scheduled for 07/25/24. Patient extubated as expected post-op, was on pressor support and transfused blood products. Weaned off of pressors by POD#1. Had brief runs of atrial fibrillation, loaded with amio without re-occurrence. Patient progressed well and was able to DC home on POD#06. DIAGNOSTICS: BP 114/53 (BP Location: Left arm, Patient Position: Lying) Pulse 70 Temp 36.1 ?C (97 ?F) (Temporal) Resp 16 Ht 5' 5 (1.651 m) Comment: per pt and chart Wt 158 lb (71.7 kg) SpO2 98% BMI 26.29 kg/m? Recent Labs 07/29/24 0200 07/29/24 0302 07/29/24 0526 07/30/24 0659 07/31/24 0227 CREATININE 0.81 -- -- 0.82 0.96 HGB -- 8.4* -- 9.6* 9.3* PLT -- 94* -- 153 166 WBC -- 4.9 -- 5.0 5.2 NA 141 -- -- 139 136 K 3.4* -- 4.0 3.2* 3.3* DISCHARGE MEDICATIONS: Medication List START taking these medications acetaminophen 500 MG tablet Commonly known as: Tylenol Take 2 tablets (1,000 mg) by mouth 3 times daily. amiodarone 200 MG tablet Commonly known as: Pacerone Take 2 tablets (400 mg) by mouth 2 times daily for 10 days, THEN 2 tablets (400 mg) daily for 7 days, THEN 1 tablet (200 mg) daily for 7 days. Start taking on: July 31, 2024 clopidogrel 75 MG tablet Commonly known as: Plavix Take 1 tablet (75 mg) by mouth daily. Methocarbamol 1000 MG tablet Take 1,000 mg by mouth every 8 hours as needed for muscle spasms for up to 14 days. metoprolol tartrate 25 MG tablet Commonly known as: Lopressor Take 1 tablet (25 mg) by mouth 2 times daily. oxyCODONE 5 MG immediate release tablet Commonly known as: Roxicodone Take 1 tablet (5 mg) by mouth every 6 hours as needed for severe pain (7-10) for up to 7 days. CHANGE how you take these medications atorvastatin 80 MG tablet Commonly known as: Lipitor Take 1 tablet (80 mg) by mouth every evening. What changed: when to take this CONTINUE taking these medications aspirin 81 MG EC tablet ezetimibe 10 MG tablet Commonly known as: Zetia STOP taking these medications carvedilol 6.25 MG tablet Commonly known as: Coreg isosorbide mononitrate ER 30 MG 24 hr tablet Commonly known as: Imdur mupirocin 2 % ointment Commonly known as: Bactroban nitroglycerin 0.4 MG SL tablet Commonly known as: Nitrostat Where to Get Your Medications These medications were sent to [facility]/pharmacy #[id number] - [place], [place] - [phone] [place] [address] acetaminophen 500 MG tablet amiodarone 200 MG tablet clopidogrel 75 MG tablet Methocarbamol 1000 MG tablet metoprolol tartrate 25 MG tablet oxyCODONE 5 MG immediate release tablet ACTIVITY: activity as tolerated, strict post-sternotomy/post-thoracotomy sternal precautions as outlined in the home going instructions, and no driving or operating heavy machinery until released by provider STRICT POST-STERNOTOMY/POST-THORACOTOMY PRECAUTIONS OUTLINED IN THE HOME GOING INSTRUCTIONS FOLLOW UP: Office will call patient to schedule in person follow up. 75 ARCH (more content not included)... [facility] 07-30-2024 Note Formatting of this n ote is different from the original. Start PACC Note Home Health Referral Educated patient on Home Care and services available. Patient offered choice of available HHC and agreeable to SN/PT services with [facility] - Home Care. Care Types: None Isolation Precautions: No active isolations Social Determinates of Health: Tobacco Use: Medium Risk (07/25/2024) Patient History Smoking Tobacco Use: Former Smokeless Tobacco Use: Former Passive Exposure: Not on file Social History Substance and Sexual Activity Alcohol Use No Social History Substance and Sexual Activity Drug Use No Does the patient have any financial resource strain? No Does the patient have any food insecurities? No Does the patient have any housing instabilities? No If any of the above is noted as yes - consider a BUTTONHOLE TACKER evaluation once the patient returns home. START PATIENT REGISTRATION INFORMATION Order Information Order Signing Physician: Brooklynn Martinez, DO Service Ordered RN ?: Yes Service Ordered PT ?: Yes Service Ordered OT ?: No Service Ordered ST ?: No Service Ordered BUTTONHOLE TACKER?:No Service Ordered GAS ANALYST?: No Following Physician: Brooklynn Martinez DO Following Physician Overseeing Physician: Brooklynn Martinez DO (Required for Residents only) Agreeable to Follow? Yes Date/Time of Call 07/30/24 12:18 PM, Spoke with: cts protcol Care Coordination Same Day SOC?: No Primary Care Physician: Tima Tello MD Primary Care Physician Primary Care Physician Address: [address] [facility] [address] Visit Instructions: N/A Service Discharge Location Type: Home with Home Care Service Facility Name: N/A Service Floor Facility: N/A Service Room No: N/A Demographics Patient Last Name: Mark Patient First Name: Sharonda Language/Communication Barrier: no Service Address: [address] Service City: [place] Service ST: [place] Service ZIP: [address] Service Other phone numbers: Telephone Information: Emergency Contact: Extended Emergency Contact Information Primary Emergency Contact: Douglas Flores Address: [place] [address] [facility] Mobile Relation: Other Admission Information Admit Date: 07/25/2024 Patient status at discharge: Inpatient Admitting Diagnosis: 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) [I25.118] 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) [I25.118] Caregiver Information Caregiver First Name: magy Caregiver Last Name: magy Caregiver Relationship to Patient na Caregiver Phone Number: na Caregiver Notes: N/A [employer] List HIGHTECH: Anchor™ TECH - NEXT DAY REQUEST Requests Next Available SOC/MARIANO END PATIENT REGISTRATION INFORMATION Pt Home Health goal go home COVID Status 1. Do you have any upper respiratory symptoms (cough, SOB, Fever)? No 2. Have you been exposed to anyone with COVID-19 Virus? No Answer only if pending or positive for COVID-19? 1. Agreeable to wear PPE at each visit? No 2. Is the hospital supplying them with PPE upon Discharge? No Start PACC Summary General Report/ Additional Comments Wound care/dressing changes: -Surgical incisions leave open to air, cleanse daily with mild soap & warm water, pat dry, no lotion or powders on incision. -Surgical tape/dsg removal 10 days from surgery date Respiratory Care: -Cough and Deep Breath; Use incentive spirometry 10 times every hour while awake for 2 weeks. Additional Orders: -Sternal precautions (no lifting, pushing, pulling >10 lbs) for 6 weeks-use heart pillow -Vitals per home health protocol-call for fever and chills -Daily weights- call for weight gain: 2-3lbs in one day; 5lbs in 3 days. -Wear TEDs during day and off at night. Lab Work: -If Diabetic: blood glucose testing as directed by PCP/Industrial Therapist -For recent heart surgery if patient discharged on Coumadin verify need for INR draw on visit. Activity/Weight Bearing: -Up with assistance: up in chair for all meals, ambulate 3-4 times a day -Stretching exercises per PT discharge instructions Discharge Date: pending Referral Source-PACC: (Hospital/Unit): [facility] / / A End PACC Note [facility] 07-30-2024 Note Formatting of this n ote is different from the original. Start PACC Note Home Health Referral Educated patient on Home Care and services available. Patient offered choice of available HHC and agreeable to SN/PT services with [facility] - Home Care. Care Types: None Isolation Precautions: No active isolations Social Determinates of Health: Tobacco Use: Medium Risk (07/25/2024) Patient History Smoking Tobacco Use: Former Smokeless Tobacco Use: Former Passive Exposure: Not on file Social History Substance and Sexual Activity Alcohol Use No Social History Substance and Sexual Activity Drug Use No Does the patient have any financial resource strain? No Does the patient have any food insecurities? No Does the patient have any housing instabilities? No If any of the above is noted as yes - consider a BUTTONHOLE TACKER evaluation once the patient returns home. START PATIENT REGISTRATION INFORMATION Order Information Order Signing Physician: Brooklynn Martinez DO Service Ordered RN ?: Yes Service Ordered PT ?: Yes Service Ordered OT ?: No Service Ordered ST ?: No Service Ordered BUTTONHOLE TACKER?:No Service Ordered GAS ANALYST?: No Following Physician: Brooklynn Martinez DO Following Physician Overseeing Physician: Brooklynn Martinez DO (Required for Residents only) Agreeable to Follow? Yes Date/Time of Call 07/30/24 12:18 PM, Spoke with: kira protcol Care Coordination Same Day SOC?: No Primary Care Physician: Tima Tello MD Primary Care Physician Primary Care Physician Address: [address] [facility] [address] Visit Instructions: N/A Service Discharge Location Type: Home with Home Care Service Facility Name: N/A Service Floor Facility: N/A Service Room No: N/A Demographics Patient Last Name: Mark Patient First Name: Sharonda Language/Communication Barrier: no Service Address: [address] Service City: [facility] ST: [place] Service ZIP: [address] Service Other phone numbers: Telephone Information: Emergency Contact: Extended Emergency Contact Information Primary Emergency Contact: MarkDouglas Address: [address] Mobile Relation: Other Admission Information Admit Date: 07/25/2024 Patient status at discharge: Inpatient Admitting Diagnosis: 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) [I25.118] 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) [I25.118] Caregiver Information Caregiver First Name: na Caregiver Last Name: na Caregiver Relationship to Patient na Caregiver Phone Number: na Caregiver Notes: N/A [employer] List HIGHTECH: Anchor™ TECH - NEXT DAY REQUEST Requests Next Available SOC/MARIANO END PATIENT REGISTRATION INFORMATION Pt Home Health goal go home COVID Status 1. Do you have any upper respiratory symptoms (cough, SOB, Fever)? No 2. Have you been exposed to anyone with COVID-19 Virus? No Answer only if pending or positive for COVID-19? 1. Agreeable to wear PPE at each visit? No 2. Is the hospital supplying them with PPE upon Discharge? No Start PACC Summary General Report/ Additional Comments Wound care/dressing changes: -Surgical incisions leave open to air, cleanse daily with mild soap & warm water, pat dry, no lotion or powders on incision. -Surgical tape/dsg removal 10 days from surgery date Respiratory Care: -Cough and Deep Breath; Use incentive spirometry 10 times every hour while awake for 2 weeks. Additional Orders: -Sternal precautions (no lifting, pushing, pulling >10 lbs) for 6 weeks-use heart pillow -Vitals per home health protocol-call for fever and chills -Daily weights- call for weight gain: 2-3lbs in one day; 5lbs in 3 days. -Wear TEDs during day and off at night. Lab Work: -If Diabetic: blood glucose testing as directed by PCP/Industrial Therapist -For recent heart surgery if patient discharged on Coumadin verify need for INR draw on visit. Activity/Weight Bearing: -Up with assistance: up in chair for all meals, ambulate 3-4 times a day -Stretching exercises per PT discharge instructions Discharge Date: pending Referral Source-PACC: (Hospital/Unit): [facility] / [id number]/[id number] A End PACC Note [facility] 07-30-2024 Note Start PACC Note Home Health Referral Educated patient on Home Care and services available. Patient offered choice of available HHC and agreeable to SN/PT services with [facility] - Home Care. Care Types: None Isolation Precautions: No active isolations Social Determinates of Health: Tobacco Use: Medium Risk (07/25/2024) Patient History Smoking Tobacco Use: Former Smokeless Tobacco Use: Former Passive Exposure: Not on file Social History Substance and Sexual Activity Alcohol Use No Social History Substance and Sexual Activity Drug Use No Does the patient have any financial resource strain? No Does the patient have any food insecurities? No Does the patient have any housing instabilities? No If any of the above is noted as yes - consider a BUTTONHOLE TACKER evaluation once the patient returns home. START PATIENT REGISTRATION INFORMATION Order Information Order Signing Physician: Brooklynn Martinez DO Service Ordered RN ?: Yes Service Ordered PT ?: Yes Service Ordered OT ?: No Service Ordered ST ?: No Service Ordered BUTTONHOLE TACKER?:No Service Ordered GAS ANALYST?: No Following Physician: Brooklynn Martinez DO Following Physician Overseeing Physician: Brooklynn Martinez DO (Required for Residents only) Agreeable to Follow? Yes Date/Time of Call 07/30/24 12:18 PM, Spoke with: kira protcol Care Coordination Same Day SOC?: No Primary Care Physician: Tima Tello MD Primary Care Physician Primary Care Physician Address: [address] [place] [address] / [facility] [id number] Visit Instructions: N/A Service Discharge Location Type: Home with Home Care Service Facility Name: N/A Service Floor Facility: N/A Service Room No: N/A Demographics Patient Last Name: Mark Patient First Name: Sharonda Language/Communication Barrier: no Service Address: [address] Service City: [facility] ST: [place] Service ZIP: [address] Service Other phone numbers: Telephone Information: Emergency Contact: Extended Emergency Contact Information Primary Emergency Contact: MarkDouglas Address: [address] Mobile Relation: Other Admission Information Admit Date: 07/25/2024 Patient status at discharge: Inpatient Admitting Diagnosis: 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) [I25.118] 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) [I25.118] Caregiver Information Caregiver First Name: na Caregiver Last Name: na Caregiver Relationship to Patient na Caregiver Phone Number: na Caregiver Notes: N/A [employer] HIGHTECH: Anchor™ TECH - NEXT DAY REQUEST Requests Next Available SOC/MARIANO END PATIENT REGISTRATION INFORMATION Pt Home Health goal go home COVID Status 1. Do you have any upper respiratory symptoms (cough, SOB, Fever)? No 2. Have you been exposed to anyone with COVID-19 Virus? No Answer only if pending or positive for COVID-19? 1. Agreeable to wear PPE at each visit? No 2. Is the hospital supplying them with PPE upon Discharge? No Start PACC Summary General Report/ Additional Comments Wound care/dressing changes: -Surgical incisions leave open to air, cleanse daily with mild soap & warm water, pat dry, no lotion or powders on incision. -Surgical tape/dsg removal 10 days from surgery date Respiratory Care: -Cough and Deep Breath; Use incentive spirometry 10 times every hour while awake for 2 weeks. Additional Orders: -Sternal precautions (no lifting, pushing, pulling >10 lbs) for 6 weeks-use heart pillow -Vitals per home health protocol-call for fever and chills -Daily weights- call for weight gain: 2-3lbs in one day; 5lbs in 3 days. -Wear TEDs during day and off at night. Lab Work: -If Diabetic: blood glucose testing as directed by PCP/Industrial Therapist -For recent heart surgery if patient discharged on Coumadin verify need for INR draw on visit. Activity/Weight Bearing: -Up with assistance: up in chair for all meals, ambulate 3-4 times a day -Stretching exercises per PT discharge instructions Discharge Date: pending Referral Source-PACC: (Hospital/Unit): [facility] / T1/T1 A End PACC Note [facility] 07-30-2024 Plan of care note Problem: Pain - Adult Goal: Verbalizes/displays adequate comfort level or baseline comfort level 07/30/20241905 by Anisa Awad RN Outcome: Progressing 07/30/2024 0933 by Anisa Awad RN Outcome: Progressing Problem: Safety - Adult Goal: Free from fall injury 07/30/20241905 by Anisa Awad RN Outcome: Progressing 07/30/2024 0933 by Anisa Awad RN Outcome: Progressing Problem: Discharge Planning Goal: Discharge to home or other facility with appropriate resources 07/30/20241905 by Anisa Awad RN Outcome: Progressing 07/30/2024 0933 by Anisa Awad RN Outcome: Progressing Problem: Chronic Conditions and Co-morbidities Goal: Patient's chronic conditions and co-morbidity symptoms are monitored and maintained or improved 07/30/20241905 by Anisa Awad RN Outcome: Progressing 07/30/2024932 by Anisa Awad RN Outcome: Progressing Problem: Knowledge Deficit Goal: Patient/family/caregiver demonstrates understanding of disease process, treatment plan, medications, and discharge instructions 07/30/20241905 by Anisa Awad RN Outcome: Progressing 07/30/2024932 by Anisa Awad RN Outcome: Progressing Problem: Potential for Compromised Skin Integrity Goal: Skin Integrity is Maintained or Improved 07/30/20241905 by Anisa Awad RN Outcome: Progressing 07/30/2024932 by Anisa Awad RN Outcome: Progressing Goal: Nutritional status is improving 07/30/20241905 by Anisa Awad RN Outcome: Progressing 07/30/2024932 by Anisa Awad RN Outcome: Progressing Problem: Urinary Incontinence Goal: Perineal skin integrity is maintained or improved 07/30/20241905 by Anisa Awad RN Outcome: Progressing 07/30/2024932 by Anisa Awad RN Outcome: Progressing Problem: Problem Interventions Goal: Assess Nutritional Intake 07/30/20241905 by Anisa Awad RN Outcome: Progressing 07/30/2024932 by Anisa Awad RN Outcome: Progressing [facility] 07-30-2024 Plan of care note Problem: Pain - Adult Goal: Verbalizes/displays adequate comfort level or baseline comfort level Outcome: Progressing Problem: Safety - Adult Goal: Free from fall injury Outcome: Progressing Problem: Discharge Planning Goal: Discharge to home or other facility with appropriate resources Outcome: Progressing Problem: Chronic Conditions and Co-morbidities Goal: Patient's chronic conditions and co-morbidity symptoms are monitored and maintained or improved Outcome: Progressing Problem: Knowledge Deficit Goal: Patient/family/caregiver demonstrates understanding of disease process, treatment plan, medications, and discharge instructions Outcome: Progressing Problem: Potential for Compromised Skin Integrity Goal: Skin Integrity is Maintained or Improved Outcome: Progressing Goal: Nutritional status is improving Outcome: Progressing Problem: Urinary Incontinence Goal: Perineal skin integrity is maintained or improved Outcome: Progressing Problem: Problem Interventions Goal: Assess Nutritional Intake Outcome: Progressing [facility] 07-30-2024 Note Formatting of this n ote might be different from the original. Care Management Progress Note Patient remains in CTV ICU s/p CABG x 3 POD # 5. Episodes of Afib overnight, plan for Amio bolus and drip x 24 hr. Hopefully for dc tomorrow. DCP-home with RANULFO AVILES following Length of Stay (Days): 5 GMLOS: 8.1 [facility] 07-30-2024 Note Formatting of this n ote might be different from the original. Care Management Progress Note Patient remains in CTV ICU s/p CABG x 3 POD # 5. Episodes of Afib overnight, plan for Amio bolus and drip x 24 hr. Hopefully for dc tomorrow. DCP-home with RANULFO AVILES following Length of Stay (Days): 5 GMLOS: 8.1 [facility] 07-30-2024 Note Care Management Prog ress Note Patient remains in CTV ICU s/p CABG x 3 POD # 5. Episodes of Afib overnight, plan for Amio bolus and drip x 24 hr. Hopefully for dc tomorrow. DCP-home with RANULFO AVILES following Length of Stay (Days): 5 GMLOS: 8.1 [facility] 07-30-2024 Note Cardiothoracic Surge ry/CCM Progress Note PATIENT NAME: Sharonda Flores DATE: 07/30/24 HPI: Sharonda Flores is a 68 y.o. male referred by Dr. Tineo for CABG. Patient's PMHx includes CAD (s/p several PCI, most recently 2011 - LAD, LCx, distal RCA with known PHYSICIAN NON INVASIVE CARDIOLOGIST D2), preserved LVEF (65%), HTN, HLD, PAD (follows with vascular at [facility]), prior tobacco use, pulmonary nodules, adenocarcinoma s/p RUL lobectomy 01/2024 (follows with Pulmonology), and psoriasis. Patient had presented to [facility] ED with a sharp pain in the center of his chest with left shoulder ache. He had associated diaphoresis and nausea. EKG was normal.Troponin was WNL. Discharged and advised to follow up with Cardiology. A stress echocardiogram was ordered and completed on 06/25/24 which was abnormal. He then underwent a heart catheterization on 07/08/24 which demonstrated multivessel CAD. Seen by Dr. Martinez in OP setting, agreeable to CABG, scheduled for 07/25/24. Surgery/Procedure: 07/25/24: Dr. Martinez- CABG x3 (GREY-LAD, SVG-Diag, SVG-PDA), LAD endarterectomy LEVH, ZARI Interval History: 07/30/24, POD# 05. Afebrile, NSR on tele, BP stable, on RA. Had brief episodes of atrial fibrillation overnight. No other issues noted. Patient ambulating on unit. Pain tolerable. Review of Systems Constitutional: Negative for chills, diaphoresis and fever. Respiratory: Negative for cough, shortness of breath and wheezing. Cardiovascular: Negative for palpitations and leg swelling. Gastrointestinal: Negative for abdominal distention, abdominal pain, nausea and vomiting. Neurological: Negative for dizziness and light-headedness. Objective: Last BM Date: (07/29) Vitals: BP: 103/53, MAP (mmHg): 67, BP Method: Automatic Heart Rate: 81 Resp: 18 Temp: 37.2 ?C (99 ?F), Temp Source: Temporal BMI (Calculated): 26.49 BMP: Recent Labs 07/28/24 0105 07/28/24 1420 07/29/24 0200 07/29/24 0526 NA 136 137 141 -- K 3.6 3.3* 3.4* 4.0 CL 101 97* 102 -- CO2 31 33* 30 -- BUN 23 24* 24* -- CREATININE 0.90 0.82 0.81 -- CALCIUM 9.0 9.1 9.0 -- MG 2.1 -- 1.8 -- CBC: Recent Labs 07/28/24 0105 07/29/24 0302 07/30/24 0659 WBC 5.0 4.9 5.0 HGB 8.1* 8.4* 9.6* HCT 24.3* 25.2* 28.7* PLT 68* 94* 153 MCV 85.3 84.6 83.9 RDW 14.1 13.7 13.9 INR: Recent Labs 07/28/24 0105 INR 1.1 Physical Exam Vitals reviewed. Constitutional: General: He is not in acute distress. Appearance: He is not ill-appearing or diaphoretic. Cardiovascular: Rate and Rhythm: Normal rate and regular rhythm. Pulses: Normal pulses. Heart sounds: No murmur heard. Pulmonary: Effort: Pulmonary effort is normal. Breath sounds: No wheezing, rhonchi or rales. Abdominal: General: There is no distension. Palpations: Abdomen is soft. Tenderness: There is no abdominal tenderness. Musculoskeletal: Right lower leg: No edema. Left lower leg: No edema. Skin: General: Skin is warm and dry. Capillary Refill: Capillary refill takes less than 2 seconds. Findings: Bruising present. Comments: Surgical incisions well approximated. No redness, warmth or drainage noted. Neurological: General: No focal deficit present. Mental Status: He is alert and oriented to person, place, and time. Assessment: CAD s/p multiple PCI's, now s/p CABG HTN HLD PAD Adenocarcinoma s/p RUL lobectomy (02/17/24) Former smoker Psoriasis Post operative Pulm Management: Normal Post-operative Course Post-operative Atrial Fibrillation: [x]Yes [] No Acute blood loss anemia/consumptive coagulopathy Plan: Patient status: Tele Give amio bolus x1, then amio gtt at 1mg/min for 24 hours. -If patient continues to have episodes of afib, will need anticoagulation at DC. Continue aspirin, statin and BB. -Increase BB as HR/BP tolerates. Plavix d/t LAD endarterectomy and stents present. Lasix 40mg PO x1 today. PO pain control. Bowel regimen. Encourage PO intake. Aggressive PT/OT. Plan for OP referral to Orthopedics for shoulder issue. -Office will help coordinate in [place]. GI prophy: PO protonix DVT prophy:TEDs, SCDs, and not on due to risk of bleeding Pulmonary hygiene: IS and Acapella Consults: Endocrinology signed off. -No home going recs. PT/OT: Home with assist PRN (07/28/24) TCC/Discharge Planning: Monitor for afib over the next 24 hours +amio load, DC home tomorrow. Central Line: []Yes [x] No Arterial Line: []Yes [x] No Sher: []Yes [x] No Restraints: []Yes [x] No Patient discussed and plan of day developed from multidisciplinary rounds between Cardiothoracic Surgery (Cardiothoracic Surgeon, CHIQUIS) and Critical Care Attending Time spent 20 minutes. The time involved in the performance of this care was exclusive of separately billable procedures, teaching time and treating other patients. The time was spent personally by myself for the following activities: examination of the p (more content not included)... [facility] 07-29-2024 Nurse Note Summary of day shift - Patient ambulated unit 3 times independently during shift; positive for BM; intermittent c/o chest pain treated with PRN meds and rest; patient did not eat much (doesn't care for food selections). Did drink Ensure. Patient anticipating discharge to home tomorrow. [facility] 07-29-2024 Plan of care note Problem: Pain - Adult Goal: Verbalizes/displays adequate comfort level or baseline comfort level Outcome: Progressing Problem: Safety - Adult Goal: Free from fall injury Outcome: Progressing Problem: Discharge Planning Goal: Discharge to home or other facility with appropriate resources Outcome: Progressing Problem: Chronic Conditions and Co-morbidities Goal: Patient's chronic conditions and co-morbidity symptoms are monitored and maintained or improved Outcome: Progressing Problem: Knowledge Deficit Goal: Patient/family/caregiver demonstrates understanding of disease process, treatment plan, medications, and discharge instructions Outcome: Progressing Problem: Potential for Compromised Skin Integrity Goal: Skin Integrity is Maintained or Improved Outcome: Progressing Goal: Nutritional status is improving Outcome: Progressing Problem: Urinary Incontinence Goal: Perineal skin integrity is maintained or improved Outcome: Progressing Problem: Problem Interventions Goal: Assess Nutritional Intake Outcome: Progressing [facility] 07-29-2024 Consult note Formatting of th is note might be different from the original. Received referral and reviewed chart. Phase II Cardiopulmonary Rehab Referral discussed with Sharonda Flores. Patient prefers cardiopulmonary rehab at [facility]. Given information on program at preferred location. [facility] 07-29-2024 Note Received referral an d reviewed chart. Phase II Cardiopulmonary Rehab Referral discussed with Sharonda Flores. Patient prefers cardiopulmonary rehab at [facility]. Given information on program at preferred location. [facility] 07-29-2024 Consult note Formatting of th is note might be different from the original. Received referral and reviewed chart. Phase II Cardiopulmonary Rehab Referral discussed with Sharonda Flores. Patient prefers cardiopulmonary rehab at [facility]. Given information on program at preferred location. Associated Order(s): IP CONSULT TO DIETITIAN; IP CONSULT TO DIETITIAN Nutrition Assessment Type and Reason for Visit: Initial, Consult (s/p open heart) Nutrition Recommendations/Plan: Pt currently ordered No Added Salt, 75 gm CHO Control diet; per MNT protocol will modify to Low fat/low cholesterol/high fiber/ISAIAS diet, will keep CHO restriction as ordered however may be able to remove acutely pending future blood sugars, hemoglobin A1c- 6.0%; RD provided pt with [facility]'s post-op heart healthy diet pamphlet, suspect pt would benefit from ongoing nutrition/diet instruction as well as education. Per MNT protocol will trial Ensure HP (both flavors) acutely, to promote protein intake and support pt while appetite may be compromised- provides 160 kcal & 16 gm protein per serving. RD to monitor PO intake, weight, labs, fluid, overall nutritional status & follow up weekly. Malnutrition Assessment: Malnutrition Status: At risk for malnutrition (Comment) (pt at risk of acute loss, will trial ONS and monitor adequacy of PO intake post-op) Context: Acute Illness Findings of the 6 clinical characteristics of malnutrition: Energy Intake: Unable to assess (when asked about appetite pt reports prior to surgery eating 'typically' for himself, has low appetite after surgery; after speaking with pt he also reports times at baseline where he doesn't feel hungry and may not eat, otherwise mostly eats out) Weight Loss: Unable to assess (164# at PAT a week ago per chart, pt reports fluctuating weight from 150# (usual weight) up to 170# which he attributes weight gain to lack of exercise; EPIC weight hx reviewed) Body Fat Loss: Unable to assess Muscle Mass Loss: Unable to assess Fluid Accumulation: Unable to assess 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 Strength: Not Performed Nutrition Assessment: Pt with PMH including CAD (s/p several PCI, most recently 2011 - LAD, LCx, distal RCA with known PHYSICIAN NON INVASIVE CARDIOLOGIST D2), preserved LVEF (65%), HTN, HLD, PAD, prior tobacco use, pulmonary nodules, adenocarcinoma s/p RUL lobectomy 01/2024 (follows with Pulmonology), and Psoriasis presented to [facility] ED with a sharp pain in the center of his chest with left shoulder ache, had associated diaphoresis and nausea, EKG was normal, troponin was WNL, pt was disscharged and advised to follow up with Cardiology, a stress echocardiogram was ordered and completed on 06/25/24 which was abnormal, he then underwent a heart catheterization on 07/08/24 which demonstrated multivessel CAD, pt then seen in OP setting and was agreeable to CABG, scheduled for 07/25 (done yesterday); pt is POD #1 s/p CABG x3 (GREY-LAD, SVG-Diag, SVG-PDA), LAD endarterectomy LEVH, ZARI, last night weaned off levophed, VSS, afebrile, on 1L NC, transfused with 2 PRBC and 2 Cryo postop, diet advanced to ISAIAS, 75 gm CHO Control (no hx of DM). RD spoke with pt in room this morning, pt hasn't eaten yet and agreed to RD ordering some yogurt and fruit; conversation was relatively brief with pt (he had to be reminded that he was at [facility], also was wondering what time of day it is, states 'I missed a day or two I guess') however he was able to provide limited dietary recall (pt admitted to eating 'unhealthy'): he does not eat/prepare meals at home, often will go through drive-thrus such as [employer] or [employer], at [employer] he will get the 'big breakfast' with pancakes, breakfast meats and eggs and will space it out over 3 meals in the same day, likes to get fried shrimp (later corrected to 'grilled shrimp') and burgers when out as well, likes the convenience of eating out as he lives alone; RD did provide general nutrition recommendations, encouraged foods prepared using methods such as baked or grilled, noted high sodium/fat content of foods like breakfast meats, encouraged intake of nonstarchy vegetables as well as fruit (for micronutrients and fiber), pt reported mostly drinking sweet tea at home, acknowledges he isn't diabetic currently but states 'I might be on my way there', RD suggested sweeteners vs added sugar, made basic recommendations for making healthier choices while eating out however encouraged eating at home more often, can freeze food that's not used and save for a later time; pt also admits that at times he has 'no appetite at all and just won't eat'; RD to trial ONS; provided pt with [employer] Heart Healthy Diet pamphlet and briefly reviewed contents, also provided pt with menu and noted items not permitted on heart healthy diet. Estimated Daily Nutrient Needs: Energy Requirements Based On: Kcal/kg Weight Used for Energy Requirements: Jameson Weight for Energy Calculation (kg): 62 kg Total Energy Requirements (kcals/day): 7784-9026 kcal/day (25-30 kcal/kg) Weight Used for Protein Requirements: Jameson Weight in Kg Used for Protein Requirements: 62 kg Estimated Total Protein (g/day): 74-81 gm protein/day (1.2-1.3 gm protein/kg) Estimated Daily Total Fluid (ml/day): per MD Nutrition Related Findings: missing teeth, hypoactive BS, last BM 07/24; +chest tube; nonpitting BLE edema; medications reviewed; labs reviewed Wound Type: Surgical Incision (s/p CABG; Matthias 19) Current Nutrition Therapies: Adult diet Regular; No Added Salt (3-4 gm); 5 carb choices (75 gm/meal) Current Oral Intake Average Meal Intake: (hasn't eaten yet today) Average Supplements Intake: None Ordered Anthropometric Measures: Height: 165.1 cm (5' 5) (per pt and chart) Admission Body Weight: 74.4 kg (164 lb) (standing scale at PAT 07/18) Usual Body Weight: (per EPIC: 06/11- 157#, 03/20- 157#, 01/28- 170#, 01/15- 170#, 11/01- 174#; weights for greater part of this year >170#; pt states UBW ~150# but that at times weight gets up to 170# which he attributes not to fluid but to 'lack of exercise') Jameson Body Weight (lbs) (Calculated): 136 lbs Jameson Body Weight (Kg) (Calculated): 62 kg Weight Adjustment For: No Adjustment BMI Categories: Overweight (BMI 25.0-29.9) Nutrition Diagnosis: Food & Nutrition-related knowledge deficit related to other (comment) (lack of prior exposure to accurate nutrition related information) as evidenced by other (comment) (? prior nutrition education, pt not following a healthful diet at baseline) Predicted inadequate energy intake related to acute injury/trauma (POD #1 s/p heart surgery) as evidenced by other (comment) (poor appetite today, did allow RD to place light breakfast order) Nutrition Interventions: Nutrition Education/Counseling: Education initiated Coordination of Nutrition Care: Continue to monitor while inpatient Plan of Care discussed with: pt Goals: Goals: PO intake 50% or greater, by next RD assessment, Teach back diet education Nutrition Monitoring and Evaluation: Behavioral-Environmental Outcomes: Knowledge or Skill Food/Nutrient Intake Outcomes: Food and Nutrient Intake, Supplement Intake Physical Signs/Symptoms Outcomes: Biochemical Data, Meal Time Behavior, GI Status, Nutrition Focused Physical Findings, Skin, Weight, Fluid Status or Edema Discharge Planning: Too soon to determine Ashanti Peace RD Contact: Secure chat or *[phone] Associated Order(s): IP CONSULT TO CARDIAC REHAB Received referral and reviewed chart. Unable to discuss Phase II Cardiopulmonary Rehab Referral with Sharonda Flores at this time. Will follow to discuss program when appropriate. Patient will be contacted at home if discharged prior to discussion. Associated Order(s): IP CONSULT TO ENDOCRINOLOGY Department of Internal Medicine Division of Endocrinology, Diabetes, & Metabolism Endocrinology Note Patient Name: Sharonda Flores : 1955 AGE: 69 y.o. Room/Bed: T1-109/T1-109 A Admission Date: 07/25/2024 Visit Date: 07/25/2024 Reason for Endocrine Consult: Stress hyperglycemia Provider/Team Requesting Consult: Cardiology PCP: Tima Tello MD Outpt Industrial Therapist: No ASSESSMENT: Stress induced hyperglycemia Steroid induced hyperglycemia Status post CABGx3 CAD PLAN: Continue insulin gtt per protocol Monitor ICU goal <180 GMF goal <150 POCT BG ACHS Hypoglycemia management per protocol Carb controlled diet ANTICIPATED ENDOCRINE HOME GOING RECOMMENDATIONS: Optimized for Discharge from Endocrine standpoint: Yes Home Going Endocrine Rx Recommendations-- None Outpt Follow Up-- PCP SUBJECTIVE/HPI: CHIEF COMPLAINT: No chief complaint on file. Status post CABG Intubated and chest tube in place, on pacer Gtt: propofol and insulin (off at time of consult) No pressors are on Received dexamethasone earlier today Blood glucose tightly controlled at this time No history of DM, no A1C available Will clarify patient medical history once extubated Type of DM: NA Onset of DM: NA Home DM Medication Regimen: NA DM control (last A1c/glucose data): No results found for: HGBA1C Glucose Date/Time Value Ref Range Status 07/25/2024 12:35 PM 87 70 - 100 mg/dL Final Review of Systems Reason unable to perform ROS: intubated. ROS negative except for those mentioned in HPI. OBJECTIVE: Vitals: 07/25/24 0530 07/25/24 0832 07/25/24 1230 BP: 132/78 (!) 119/44 BP Location: Left arm Patient Position: Lying Pulse: 62 76 Resp: 16 14 Temp: 36.1 C (97 F) (!) 35.6 C (96.1 F) TempSrc: Tympanic Temporal SpO2: 98% 100% Weight: 164 lb (74.4 kg) 164 lb (74.4 kg) Height: 5' 5 (1.651 m) 5' 5 (1.651 m) Physical Exam Vitals reviewed. Constitutional: Appearance: Normal appearance. He is ill-appearing. HENT: Head: Normocephalic and atraumatic. Right Ear: External ear normal. Left Ear: External ear normal. Nose: Nose normal. Mouth/Throat: Pharynx: Oropharynx is clear. Cardiovascular: Rate and Rhythm: Normal rate. Pulmonary: Effort: Pulmonary effort is normal. Chest: Comments: Chest tube in place Skin: General: Skin is warm and dry. Comments: Midline incision intact Neurological: Mental Status: He is alert. 24 hour intake/output: Intake/Output Summary (Last 24 hours) at 07/25/2024 1240 Last data filed at 07/25/2024 1230 Gross per 24 hour Intake 1176 ml Output 1100 ml Net 76 ml Diet: NPO diet Medications (as per EMR): HomeMeds: Current Outpatient Medications Medication Instructions aspirin 81 mg, Daily before breakfast atorvastatin (LIPITOR) 80 mg, Oral, Every evening carvedilol (COREG) 6.25 mg, Oral, 2 times daily ezetimibe (ZETIA) 10 mg, Daily before breakfast isosorbide mononitrate ER (IMDUR) 30 mg, Oral, Daily, Do not crush or chew. mupirocin (Bactroban) 2 % ointment Apply liberal amount per nostril the night before surgery and then again the morning of surgery nitroglycerin (Nitrostat) 0.4 MG SL tablet DISSOLVE 1 TABLET UNDER THE TONGUE EVERY 5 MINUTES NEEDED. Scheduled Meds:acetaminophen, 1,000 mg, Oral, q8h ceFAZolin, 2,000 mg, IntraVENous, q8h chlorhexidine, 15 mL, Mouth/Throat, BID Lidocaine, 1 patch, Topical, Daily mupirocin, , Nasal, BID [START ON 07/26/2024] pantoprazole, 40 mg, IntraVENous, Daily polyethylene glycol (PEG) 3350, 17 g, Oral, Daily senna-docusate sodium, 2 tablet, Oral, Nightly sodium chloride 0.9%, 5-40 mL, IntraCATHeter, q8h Continuous Infusions:EPINEPHrine, 0.01-0.2 mcg/kg/min insulin regular, 1-50 Units/hr lactated ringers, 250 mL nitroprusside, 0.1-3 mcg/kg/min norepinephrine, 0.01-0.2 mcg/kg/min propofol, 5-50 mcg/kg/min sodium chloride, 20 mL/hr sodium chloride, 50 mL/hr, Last Rate: 50 mL/hr (07/25/24 0621) PRN Meds:PRN medications: albumin human, calcium gluconate, dextrose, dextrose, EPINEPHrine, glucagon (rDNA), glucose, ipratropium-albuterol, lactated ringers, magnesium hydroxide, magnesium sulfate OR magnesium sulfate, morphine sulfate OR morphine sulfate, nitroprusside, norepinephrine, ondansetron ODT OR ondansetron, oxyCODONE OR oxyCODONE, potassium chloride OR potassium chloride OR potassium chloride, [START ON 07/26/2024] potassium chloride CR, sodium chloride 0.9% Diagnostic Workup: I reviewed pertinent Laboratory results, Radiographic results, and Other Clinical Notes at the time of today's encounter. Labs: No components found for: LABA1C No components found for: EAG No results found for: NA, K, CL, CO2, BUN, CREATININE, GLUCOSE, CALCIUM Lab Results Component Value Date CHLPL 217 10/21/2019 CHOL 242 (A) 09/30/2020 Lab Results Component Value Date TRIG 164 (A) 09/30/2020 TRIG 170 10/21/2019 Lab Results Component Value Date HDL 34 (L) 09/30/2020 HDL 32 (A) 10/21/2019 Lab Results Component Value Date LDLCALC 151 10/21/2019 Lab Results Component Value Date VLDL 34 10/21/2019 Lab Results Component Value Date CHOLHDLRATIO 7 09/30/2020 CHOLHDLRATIO 6.78 10/21/2019 No results found for: GWSJ74HCE No results found for: TSH, K1UGWRW, Q3JENCG, THYROIDAB Radiology reportsas per the Radiologist Radiology: POCT glucose meter Result Date: 07/25/2024 Performed by: [facility], [address] [place] [address] CLIA ID: [id number] History/Other: Past Medical History: Past Medical History: Diagnosis Date Arrhythmia v-fib/ arrest CAD (coronary artery disease) Cancer (CMS/HCC) (HCC) LUNG UPPER RIGHT - SURGERY FOR REMOVAL 02/09/2024 Congenital heart disease Hyperlipidemia Hypertension [place], old 2011- [facility] [facility] Sleep apnea NO CPAP WORN Past Surgical History: Past Surgical History: Procedure Laterality Date ADENOIDECTOMY APPENDECTOMY CARDIAC CATHETERIZATION N/A 07/05/2024 Performed by Becky Tineo MD at [facility] Cardiac Cath/EP Lab CARDIAC PROCEDURE 03/15/2012 BMS mid dis RCA CARDIAC PROCEDURE 03/2012 REBECCA to mis dist LAD CARDIAC PROCEDURE 05/2012 REBECCA to prox LCx COLONOSCOPY CORONARY ANGIOPLASTY 05/2012 circ, distal RCA, & LAD TONSILLECTOMY Allergy(ies): Allergies Allergen Reactions Pcn [Penicillins] Rash Family History: Family History Problem Relation Name Age of Onset Heart disease Father Thad No Known Problems Mother Cancer Maternal Grandfather Mother Social History: Social History Tobacco Use Smoking status: Former Current packs/day: 0.00 Average packs/day: 2.0 packs/day for 56.1 years (112.2 ttl pk-yrs) Types: Cigarettes Start date: 1955 Quit date: 08/17/2011 Years since quittin.9 Smokeless tobacco: Former Quit date: 1970 Tobacco comments: Quit smoking: currently occ cigar Vaping Use Vaping status: Never Used Substance Use Topics Alcohol use: No Drug use: No Portions of the information within this encounter were entered using an electronic dictation system. Best attempts were made to edit/proofread the information prior to note completion. Despite the review of information, some errors may remain. If there are questions related to the information contained within the note please contact the signing physician directly. I spent 30 minutes with the pt which involved coordination of care, medical evaluation, review of records, and/or counseling of the pt regarding his/her condition/disease state/prognosis on the date of this note. Cosigned by Patsy Telles MD at 07/25/2024 3:39 PM EST Associated attestation - Patsy Telles MD - 07/25/2024 3:39 PM EST I have personally performed a face to face diagnostic evaluation on this patient. 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 My findings are as follows: Status post CABG for coronary artery disease No previous history of diabetes Not on diabetes medication Hemoglobin A1c 6% but obtained after surgery which is not reliable in the setting of anemia His blood glucose reading was fine before surgery on July 18 Vitals: BP (!) 119/44 (BP Location: Left arm, Patient Position: Lying) Pulse 81 Temp (!) 35.6 C (96.1 F) (Temporal) Resp 18 Ht 5' 5 (1.651 m) Wt 164 lb (74.4 kg) SpO2 100% BMI 27.29 kg/m Constitutional: intubated Respiratory: No respiratory distress Cardiovascular System: No lower extremity edema A/P Stress hyperglycemia status post CABG Continue insulin drip BG Q 1 hour per protocol Will switch insulin drip to sc insulin if needed in 24 to 48 hours. Do not anticipate that patient will need diabetes regimen on discharge but we will monitor blood glucose readings Old records including available PCP, ED notes and or other specialists notes are reviewed. LABs and/or imaging are reviewed as detailed in the resident's/COREMAKER HELPER/PIG MACHINE SUPERVISOR's note Images from the original note were not included. [facility]: Critical Care Consultation Note Date: 07/25/24 PATIENT NAME: Sharonda Flores : 1955 (69 y.o.) Reason for Consult: Critical Care & Vent Management HPI: Sharonda Flores is a 68 y.o. male referred by Dr. Tineo for CABG. Patient's PMHx includes CAD (s/p several PCI, most recently 2011 - LAD, LCx, distal RCA with known PHYSICIAN NON INVASIVE CARDIOLOGIST D2), preserved LVEF (65%), HTN, HLD, PAD (follows with vascular at [facility]), prior tobacco use, pulmonary nodules, adenocarcinoma s/p RUL lobectomy 01/2024 (follows with Pulmonology), and psoriasis. Patient had presented to [facility] ED with a sharp pain in the center of his chest with left shoulder ache. He had associated diaphoresis and nausea. EKG was normal.Troponin was WNL. Discharged and advised to follow up with Cardiology. A stress echocardiogram was ordered and completed on 06/25/24 which was abnormal. He then underwent a heart catheterization on 07/08/24 which demonstrated multivessel CAD. Seen by Dr. Martinez in OP setting, agreeable to CABG, scheduled for 07/25/24. Surgery: 07/25/24: Dr. Martinez- CABG x3 (GREY-LAD, SVG-Diag, SVG-PDA), LAD endarterectomy LEVH, ZARI Interval History: 07/25/24: POD #0: Patient arrived to the unit, intubated and sedated. Surgical hand off completed below. Surgery Hand Off: Arrival Time in CTVICU: 1230 Complications/Pertinent Events: Last Paralytic: 0900 Medications given in route: Gtts OR report Propofol: 20mcg/kg/min Insulin: off Amicar: 29 Current gtts upon arrival Propofol: 50mcg/kg/min Insulin: off Amicar: 29 Devices: Epicardial wires: yes [x] no [] IABP: yes [] no [x] LVAD: yes [] no [x] Speed: Equipment: Back up controller yes [] no [x] Blood Transfusions Intra Op: yes [] no [x] CellSaver: yes Vital Signs including Cardiac Numbers (if indicated) at Conclusion of Hand-off OR CTVICU CO No [place] CI CVP SVR PAP Additional Interventions/Misc during Handoff Review of Systems Unable to perform ROS: Intubated Allergies: Pcn [penicillins] Past Medical History: has a past medical history of Arrhythmia, CAD (coronary artery disease), Cancer (CMS/HCC) (HCC), Congenital heart disease, Hyperlipidemia, Hypertension, [place], old, and Sleep apnea. Past Surgical History: has a past surgical history that includes Cardiac procedure (03/15/2012); Cardiac procedure (03/2012); Cardiac procedure (05/2012); Coronary angioplasty (05/2012); Cardiac catheterization (N/A, 07/05/2024); Colonoscopy; Tonsillectomy; Adenoidectomy; and Appendectomy. Social History: reports that he quit smoking about 12 years ago. His smoking use included cigarettes. He started smoking about 69 years ago. He has a 112.2 pack-year smoking history. He quit smokeless tobacco use about 54 years ago. He reports that he does not drink alcohol and does not use drugs. Family History: family history includes Cancer in his maternal grandfather; Heart disease in his father; No Known Problems in his mother. Medications: Prior to Admission medications Medication Sig Start Date End Date Taking? Authorizing Provider aspirin 81 MG EC tablet Take 81 mg by mouth every morning (before breakfast). Yes Historical Provider, atorvastatin (Lipitor) 80 MG tablet Take 1 tablet (80 mg) by mouth every evening. Patient taking differently: Take 80 mg by mouth every morning (before breakfast). 02/08/24 Yes Becky Tineo MD carvedilol (Coreg) 6.25 MG tablet Take 1 tablet (6.25 mg) by mouth 2 times daily. 01/30/24 Yes SESAR Lal CNP ezetimibe (Zetia) 10 MG tablet Take 10 mg by mouth every morning (before breakfast). 12/08/23 12/07/24 Yes Historical Provider, isosorbide mononitrate ER (Imdur) 30 MG 24 hr tablet Take 1 tablet (30 mg) by mouth daily. Do not crush or chew. Patient taking differently: Take 30 mg by mouth every morning (before breakfast). Do not crush or chew. 06/25/24 06/25/25 Yes SESAR Pierson CNP mupirocin (Bactroban) 2 % ointment Apply liberal amount per nostril the night before surgery and then again the morning of surgery Patient not taking: Reported on 07/25/2024 07/12/24 SESAR Hauser CNP nitroglycerin (Nitrostat) 0.4 MG SL tablet DISSOLVE 1 TABLET UNDER THE TONGUE EVERY 5 MINUTES NEEDED. Patient not taking: Reported on 07/25/2024 11/23/21 Historical Provider, Objective: BP 132/78 Pulse 62 Temp 36.1 C (97 F) (Tympanic) Resp 16 Ht 5' 5 (1.651 m) Wt 164 lb (74.4 kg) SpO2 98% BMI 27.29 kg/m No intake or output data in the 24 hours ending 07/25/24 0833 Physical Exam Vitals reviewed. Constitutional: Interventions: He is sedated and intubated. HENT: Mouth/Throat: Comments: ETT/OG Neck: Comments: Central line Cardiovascular: Rate and Rhythm: Normal rate and regular rhythm. Pulses: Normal pulses. Heart sounds: No murmur heard. Pulmonary: Effort: He is intubated. Breath sounds: No wheezing, rhonchi or rales. Comments: Ventilator assisted Abdominal: General: There is no distension. Palpations: Abdomen is soft. Comments: Chest tubes in place Genitourinary: Comments: Sher Musculoskeletal: General: No swelling. Skin: General: Skin is warm and dry. Capillary Refill: Capillary refill takes less than 2 seconds. Comments: MSI well approximated, no redness, warmth or drainage. LEVH with SIMRAN wrap intact. Neurological: Comments: Sedated Diagnostics: Reviewed in EMR Labs: Reviewed in EMR BMP:No results for input(s): NA, K, CL, CO2, BUN, CREATININE, CALCIUM, MG, PHOS in the last 72 hours. CBC: No results for input(s): WBC, HGB, HCT, PLT, MCV, RDW in the last 72 hours. INR: No results for input(s): INR in the last 72 hours. Assessment: CAD s/p multiple PCI's, now s/p CABG HTN HLD PAD Adenocarcinoma s/p RUL lobectomy (02/17/24) Former smoker Psoriasis Post operative Pulm Management: Normal Post-operative Course Post-operative Atrial Fibrillation: []Yes [x] No Acute blood loss anemia/consumptive thrombocytopenia Plan: - Sugamadex - Wean sedation as able, goal RASS -1 to 0 - SAT/SBT when appropriate-> extubate - STAT EKG and CXR - Review lab work, re-send if needed - Replete electrolytes per PRN protocols - Start Plavix tomorrow AM for endarterectomy - No [place], okay to check VBG and Ozzie if concerns for low CI - Hemodynamic goals: CI >2.0, SBP 90-130 mmHg, MAP 60-75 - PRN Hypertension 1st option Cardene gtt 2nd option or if Cardene unavailable Nitro -PRN Hypotension CI >2.0 euvolemic with low SVR- Levophed gtt CI <2.0 euvolemic - Epinephrine gtt - Temp pacing wires/mode: v-wires to backup - Chest tubes: no air leak or fluctuation noted, suction - Cefazolin - surgical prophy for 5 doses total - Wean to Extubation: Arrival Time in unit: 1230 - Vent: ACVC+, TV 6ml/kg/min, rate 12, fio2 100% PEEP 8 VAP protocol: HOB >30 degrees; peridex BID - HgbA1c: Ordered - Blood glucose 87 - Insulin gtt; per endo/protocol - GI prophy: Protonix IV daily Critical Care time spent 35 minutes. The time involved in the performance of this care was exclusive of separately billable procedures, teaching time and treating other patients. The time was spent personally by myself for the following activities: examination of the patient, ordering and/or performing treatment, reviewing the laboratory and radiographic studies, and if applicable, ventilator management and blood gas interpretation. Patient treatment plan and plan of care discuss with Dr. Mike Davey Cosigned by Mike Mosley MD at 07/25/2024 2:53 PM EST Associated attestation - Mike Mosley MD - 07/25/2024 2:53 PM EST I have personally performed a face to face diagnostic evaluation on this patient today on 07/25/24. Labs, imaging studies, and electronic medical record notes on [employer] have been reviewed by me. This note documented and discussed by the []community arts officer []Fellow [x] CHIQUIS reflects my history, exam and medical decision making. I have reviewed and agree with the care plan. Changes were made in the orders as necessary. ROS documentation was reviewed and negative unless otherwise stated in the HPI. My history, exam, assessment and plan are as follows: Critical care time spent excluding separately billable procedures is 36 minutes. Sedated, intubated, pupils symmetric Heart RRR Lungs clear symmetric Abd soft CXR: ETT and central lines in position Severe multivessel CAD 07/25 s/p CABG x 3 Post op vent management Anemia, thrombocytopenia expected post op On propofol sedation, mech vent Wean sedation as tolerated for SBT and extubation later today Transfuse prn documented in this encounter [facility] 07-29-2024 Note Cardiothoracic Surge ry/CCM Progress Note PATIENT NAME: Sharonda Flores DATE: 07/29/24 HPI: Sharonda Flores is a 68 y.o. male referred by Dr. Tineo for CABG. Patient's PMHx includes CAD (s/p several PCI, most recently 2011 - LAD, LCx, distal RCA with known PHYSICIAN NON INVASIVE CARDIOLOGIST D2), preserved LVEF (65%), HTN, HLD, PAD (follows with vascular at [facility]), prior tobacco use, pulmonary nodules, adenocarcinoma s/p RUL lobectomy 01/2024 (follows with Pulmonology), and psoriasis. Patient had presented to [facility] ED with a sharp pain in the center of his chest with left shoulder ache. He had associated diaphoresis and nausea. EKG was normal.Troponin was WNL. Discharged and advised to follow up with Cardiology. A stress echocardiogram was ordered and completed on 06/25/24 which was abnormal. He then underwent a heart catheterization on 07/08/24 which demonstrated multivessel CAD. Seen by Dr. Martinez in OP setting, agreeable to CABG, scheduled for 07/25/24. Surgery/Procedure: 07/25/24: Dr. Martinez- CABG x3 (GREY-LAD, SVG-Diag, SVG-PDA), LAD endarterectomy LEVH, ZARI Interval History: 07/29/24, POD# 04: Afebrile, NSR on tele, BP stable, on RA. Chest tubes, sher and central line all removed. Ambulating on unit with nursing. Major concern is shoulder pain. Long discussion with PIG MACHINE SUPERVISOR yesterday about OP referrals. Review of Systems Constitutional: Negative for chills, diaphoresis and fever. Respiratory: Negative for cough, shortness of breath and wheezing. Cardiovascular: Negative for palpitations and leg swelling. Gastrointestinal: Negative for abdominal distention, abdominal pain, nausea and vomiting. Neurological: Negative for dizziness and light-headedness. Objective: Last BM Date: 07/27/24 Vitals: BP: 128/62, MAP (mmHg): 82, BP Method: Automatic Heart Rate: 79 Resp: 20 Temp: 36.4 ?C (97.5 ?F), Temp Source: Temporal BMI (Calculated): 26.49 BMP: Recent Labs 07/27/24 0000 07/28/24 0105 07/28/24 1420 07/29/24 0200 NA 137 136 137 141 K 3.6 3.6 3.3* 3.4* CL 106 101 97* 102 CO2 25 31 33* 30 BUN 22 23 24* 24* CREATININE 0.97 0.90 0.82 0.81 CALCIUM 8.7* 9.0 9.1 9.0 MG 2.2 2.1 -- 1.8 CBC: Recent Labs 07/27/24 1133 07/28/24 0105 07/29/24 0302 WBC 6.4 5.0 4.9 HGB 9.5* 8.1* 8.4* HCT 28.9* 24.3* 25.2* PLT 81* 68* 94* MCV 86.8 85.3 84.6 RDW 14.3 14.1 13.7 INR: Recent Labs 07/26/24 1217 07/27/24 0000 07/28/24 0105 INR 1.1 1.0 1.1 Physical Exam Vitals reviewed. Constitutional: General: He is not in acute distress. Appearance: He is not ill-appearing or diaphoretic. Cardiovascular: Rate and Rhythm: Normal rate and regular rhythm. Pulses: Normal pulses. Heart sounds: No murmur heard. Pulmonary: Effort: Pulmonary effort is normal. Breath sounds: No wheezing, rhonchi or rales. Abdominal: General: There is no distension. Palpations: Abdomen is soft. Tenderness: There is no abdominal tenderness. Musculoskeletal: Right lower leg: No edema. Left lower leg: No edema. Skin: General: Skin is warm and dry. Capillary Refill: Capillary refill takes less than 2 seconds. Findings: Bruising present. Comments: Surgical incisions well approximated. No redness, warmth or drainage noted. Neurological: General: No focal deficit present. Mental Status: He is alert and oriented to person, place, and time. Assessment: CAD s/p multiple PCI's, now s/p CABG HTN HLD PAD Adenocarcinoma s/p RUL lobectomy (02/17/24) Former smoker Psoriasis Post operative Pulm Management: Normal Post-operative Course Post-operative Atrial Fibrillation: []Yes [x] No Acute blood loss anemia/consumptive coagulopathy Plan: Patient status: Tele Continue aspirin, statin and BB. -Increase BB as HR/BP tolerates. Start Plavix d/t LAD endarterectomy and stents present. PO lasix BID today, back off tomorrow. PO pain control. Bowel regimen. Encourage PO intake. Aggressive PT/OT. Plan for OP referral to Orthopedics for shoulder issue. -Office will help coordinate in [place]. GI prophy: PO protonix DVT prophy:TEDs, SCDs, and not on due to risk of bleeding Pulmonary hygiene: IS and Acapella Consults: Endocrinology signed off. -No home going recs. PT/OT: Home with assist PRN (07/28/24) TCC/Discharge Planning: Plan for DC tomorrow. Central Line: []Yes [x] No Arterial Line: []Yes [x] No Sher: []Yes [x] No Restraints: []Yes [x] No Patient discussed and plan of day developed from multidisciplinary rounds between Cardiothoracic Surgery (Cardiothoracic Surgeon, CHIQUIS) and Critical Care Attending Time spent 30 minutes. The time involved in the performance of this care was exclusive of separately billable procedures, teaching time and treating other patients. The time was spent personally by myself for the following activities: examination of the patient, ordering and/or performing treatment, reviewing the laboratory an (more content not included)... [facility] 07-28-2024 Plan of care note Problem: Pain - Adult Goal: Verbalizes/displays adequate comfort level or baseline comfort level Outcome: Progressing Problem: Safety - Adult Goal: Free from fall injury Outcome: Progressing Problem: Discharge Planning Goal: Discharge to home or other facility with appropriate resources Outcome: Progressing Problem: Chronic Conditions and Co-morbidities Goal: Patient's chronic conditions and co-morbidity symptoms are monitored and maintained or improved Outcome: Progressing Problem: Knowledge Deficit Goal: Patient/family/caregiver demonstrates understanding of disease process, treatment plan, medications, and discharge instructions Outcome: Progressing Problem: Potential for Compromised Skin Integrity Goal: Skin Integrity is Maintained or Improved Outcome: Progressing Goal: Nutritional status is improving Outcome: Progressing Problem: Urinary Incontinence Goal: Perineal skin integrity is maintained or improved Outcome: Progressing Problem: Problem Interventions Goal: Assess Nutritional Intake Outcome: Progressing [facility] 07-28-2024 Note OCCUPATIONAL THERAPY [facility] Initial Evaluation Name/MRN: Sharonda Flores ([id number]) Evaluation Date: 07/28/2024 Date of : 1955 Admission Date: 07/25/2024 5:14 AM Age: 69 y.o. Room/Bed: T1-109/T1-109 A Discharge Recommendation: Home with assist PRN, Home with Home health OT Assessment IMPRESSION: Patient is a 69-year-old male hospitalized s/p CABG x 3 on 07/25. Patient is functionally independent with self-care tasks and functional mobility at baseline. Patient is limited by the deficits listed below. Patient is Supervision for UB ADLs, SBA LB ADLs and SBA toileting. Patient is Contact Guard for transfers/functional mobility. Recommending Home with Home OT and Home with Assist PRN upon discharge. Admitting Diagnosis: CAD of chilkoot artery Performance Deficits /Impairments: Increased Pain, Decreased Functional Mobility, Decreased ADL status, Decreased Strength, Decreased Safety Awareness, Decreased Endurance, and Decreased Balance Prognosis: Good Decision Making: Low Complexity Subjective Patient is sitting in recliner; patient agreeable to therapy evaluation. RN ok'd for participation. Pain: 0-10 pain scale: 4/10 Location: sternal pain Past Medical History: Past Medical History: Diagnosis Date Arrhythmia v-fib/ arrest CAD (coronary artery disease) Cancer (CMS/HCC) (HCC) LUNG UPPER RIGHT - SURGERY FOR REMOVAL 02/09/2024 Congenital heart disease Hyperlipidemia Hypertension [place], old 2011- [facility] Sleep apnea NO CPAP WORN Past Surgical History: Past Surgical History: Procedure Laterality Date ADENOIDECTOMY APPENDECTOMY CARDIAC CATHETERIZATION N/A 07/05/2024 Performed by Becky Tineo MD at [facility] Cardiac Cath/EP Lab CARDIAC PROCEDURE 03/15/2012 BMS mid dis RCA CARDIAC PROCEDURE 03/2012 REBECCA to mis dist LAD CARDIAC PROCEDURE 05/2012 REBECCA to prox LCx COLONOSCOPY CORONARY ANGIOPLASTY 05/2012 circ, distal RCA, & LAD TONSILLECTOMY Admission Diagnosis: Patient Active Problem List Diagnosis Date Noted 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 Fall Risk: Vicente Fall Risk Score: 45 (High Risk) Precautions/Restrictions: Sternal Precautions: No lifting greater than 10 lbs. Ok for modified UE precautions using Keep Your Move in the Tube technique Lines/Drains/Airways: chest tube x 1, tele, PIV, central line Family/Caregiver Present: none Overall Cognitive Status: WFL Overall Orientation Status: Oriented x4 Social/Functional History Patient admitted from home. 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 Patient ambulated to commode with Nezzie and CGA. Patient requiring cueing for sternal precautions as patient presents with some impulsivity. Patient with FAIR standing balance and tolerance. Return to recliner. Device(s) used: Mame AM-PAC AM-PAC Inpatient Daily Activity Raw Score: 21 ADL Inpatient CMS G-Code Modifier: CJ Plan Pt would benefit from skilled acute OT services to address Strengthening, Gait Training, Balance Training, Self-Care/ADL Training, Functional Mobility Training, Endurance Training, Safety Education and Training, Pain Management, Home Management Training, and Patient/Caregiver Training. Frequency: 5x/week for 4 weeks Barriers: Pain, Impaired balance, Lower extremity weakness, Decreased endurance, and Limited safety awareness Safety/Education Safety Safety Devices in place: All fall risk precautions in place, call light within reach, left in chair, and nurse notified Restraints: No Education Education Given To: patient Education Provided: OT Role, Plan of Care, Preca (more content not included)... [facility] 07-26-2024 Note Formatting of this n ote might be different from the original. 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 [facility] 07-26-2024 Note Formatting of this n ote might be different from the original. 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 [facility] 07-26-2024 Note Formatting of this n ote might be different from the original. Patient admitted to [facility] ICU s/p CABG x 3 POD # 1. Patient from home alone, is independent, has PCP and prescription coverage. Met with patient at bedside, introduced self and role. Patient agreeable to discharge plan of home with [facility], but does not have anyone to stay with him nor does he plan to stay with anyone. Referral to [facility] for home care. [facility] 12-27-2024 Note Formatting of this n ote might be different from the original. Patient admitted to [facility] ICU s/p CABG x 3 POD # 1. Patient from home alone, is independent, has PCP and prescription coverage. Met with patient at bedside, introduced self and role. Patient agreeable to discharge plan of home with [facility], but does not have anyone to stay with him nor does he plan to stay with anyone. Referral to [facility] for home care. [facility] 07-26-2024 Consult note Associated Order (s): IP CONSULT TO DIETITIAN; IP CONSULT TO DIETITIAN Nutrition Assessment Type and Reason for Visit: Initial, Consult (s/p open heart) Nutrition Recommendations/Plan: Pt currently ordered No Added Salt, 75 gm CHO Control diet; per MNT protocol will modify to Low fat/low cholesterol/high fiber/ISAIAS diet, will keep CHO restriction as ordered however may be able to remove acutely pending future blood sugars, hemoglobin A1c- 6.0%; RD provided pt with [facility]'s post-op heart healthy diet pamphlet, suspect pt would benefit from ongoing nutrition/diet instruction as well as education. Per MNT protocol will trial Ensure HP (both flavors) acutely, to promote protein intake and support pt while appetite may be compromised- provides 160 kcal & 16 gm protein per serving. RD to monitor PO intake, weight, labs, fluid, overall nutritional status & follow up weekly. Malnutrition Assessment: Malnutrition Status: At risk for malnutrition (Comment) (pt at risk of acute loss, will trial ONS and monitor adequacy of PO intake post-op) Context: Acute Illness Findings of the 6 clinical characteristics of malnutrition: Energy Intake: Unable to assess (when asked about appetite pt reports prior to surgery eating 'typically' for himself, has low appetite after surgery; after speaking with pt he also reports times at baseline where he doesn't feel hungry and may not eat, otherwise mostly eats out) Weight Loss: Unable to assess (164# at PAT a week ago per chart, pt reports fluctuating weight from 150# (usual weight) up to 170# which he attributes weight gain to lack of exercise; EPIC weight hx reviewed) Body Fat Loss: Unable to assess Muscle Mass Loss: Unable to assess Fluid Accumulation: Unable to assess 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 Strength: Not Performed Nutrition Assessment: Pt with PMH including CAD (s/p several PCI, most recently 2011 - LAD, LCx, distal RCA with known PHYSICIAN NON INVASIVE CARDIOLOGIST D2), preserved LVEF (65%), HTN, HLD, PAD, prior tobacco use, pulmonary nodules, adenocarcinoma s/p RUL lobectomy 01/2024 (follows with Pulmonology), and Psoriasis presented to [facility] with a sharp pain in the center of his chest with left shoulder ache, had associated diaphoresis and nausea, EKG was normal, troponin was WNL, pt was disscharged and advised to follow up with Cardiology, a stress echocardiogram was ordered and completed on 06/25/24 which was abnormal, he then underwent a heart catheterization on 07/08/24 which demonstrated multivessel CAD, pt then seen in OP setting and was agreeable to CABG, scheduled for 07/25 (done yesterday); pt is POD #1 s/p CABG x3 (GREY-LAD, SVG-Diag, SVG-PDA), LAD endarterectomy LEVH, ZARI, last night weaned off levophed, VSS, afebrile, on 1L NC, transfused with 2 PRBC and 2 Cryo postop, diet advanced to ISAIAS, 75 gm CHO Control (no hx of DM). RD spoke with pt in room this morning, pt hasn't eaten yet and agreed to RD ordering some yogurt and fruit; conversation was relatively brief with pt (he had to be reminded that he was at [facility], also was wondering what time of day it is, states 'I missed a day or two I guess') however he was able to provide limited dietary recall (pt admitted to eating 'unhealthy'): he does not eat/prepare meals at home, often will go through drive-thrus such as [employer] or [employer], at [employer] he will get the 'big breakfast' with pancakes, breakfast meats and eggs and will space it out over 3 meals in the same day, likes to get fried shrimp (later corrected to 'grilled shrimp') and burgers when out as well, likes the convenience of eating out as he lives alone; RD did provide general nutrition recommendations, encouraged foods prepared using methods such as baked or grilled, noted high sodium/fat content of foods like breakfast meats, encouraged intake of nonstarchy vegetables as well as fruit (for micronutrients and fiber), pt reported mostly drinking sweet tea at home, acknowledges he isn't diabetic currently but states 'I might be on my way there', RD suggested sweeteners vs added sugar, made basic recommendations for making healthier choices while eating out however encouraged eating at home more often, can freeze food that's not used and save for a later time; pt also admits that at times he has 'no appetite at all and just won't eat'; RD to trial ONS; provided pt with [employer] Heart Healthy Diet pamphlet and briefly reviewed contents, also provided pt with menu and noted items not permitted on heart healthy diet. Estimated Daily Nutrient Needs: Energy Requirements Based On: Kcal/kg Weight Used for Energy Requirements: Jameson Weight for Energy Calculation (kg): 62 kg Total Energy Requirements (kcals/day): 7630-2519 kcal/day (25-30 kcal/kg) Weight Used for Protein Requirements: Jameson Weight in Kg Used for Protein Requirements: 62 kg Estimated Total Protein (g/day): 74-81 gm protein/day (1.2-1.3 gm protein/kg) Estimated Daily Total Fluid (ml/day): per MD Nutrition Related Findings: missing teeth, hypoactive BS, last BM 07/24; +chest tube; nonpitting BLE edema; medications reviewed; labs reviewed Wound Type: Surgical Incision (s/p CABG; Matthias 19) Current Nutrition Therapies: Adult diet Regular; No Added Salt (3-4 gm); 5 carb choices (75 gm/meal) Current Oral Intake Average Meal Intake: (hasn't eaten yet today) Average Supplements Intake: None Ordered Anthropometric Measures: Height: 165.1 cm (5' 5) (per pt and chart) Admission Body Weight: 74.4 kg (164 lb) (standing scale at PAT 07/18) Usual Body Weight: (per EPIC: 06/11- 157#, 03/20- 157#, 01/28- 170#, 01/15- 170#, 11/01- 174#; weights for greater part of this year >170#; pt states UBW ~150# but that at times weight gets up to 170# which he attributes not to fluid but to 'lack of exercise') Jameson Body Weight (lbs) (Calculated): 136 lbs Jameson Body Weight (Kg) (Calculated): 62 kg Weight Adjustment For: No Adjustment BMI Categories: Overweight (BMI 25.0-29.9) Nutrition Diagnosis: Food & Nutrition-related knowledge deficit related to other (comment) (lack of prior exposure to accurate nutrition related information) as evidenced by other (comment) (? prior nutrition education, pt not following a healthful diet at baseline) Predicted inadequate energy intake related to acute injury/trauma (POD #1 s/p heart surgery) as evidenced by other (comment) (poor appetite today, did allow RD to place light breakfast order) Nutrition Interventions: Nutrition Education/Counseling: Education initiated Coordination of Nutrition Care: Continue to monitor while inpatient Plan of Care discussed with: pt Goals: Goals: PO intake 50% or greater, by next RD assessment, Teach back diet education Nutrition Monitoring and Evaluation: Behavioral-Environmental Outcomes: Knowledge or Skill Food/Nutrient Intake Outcomes: Food and Nutrient Intake, Supplement Intake Physical Signs/Symptoms Outcomes: Biochemical Data, Meal Time Behavior, GI Status, Nutrition Focused Physical Findings, Skin, Weight, Fluid Status or Edema Discharge Planning: Too soon to determine Ashanti Peace RD Contact: Secure chat or *[phone] [facility] 07-26-2024 Note PHYSICAL THERAPY [facility] Initial Evaluation Name/MRN: Sharonda Flores ([id number]) Evaluation Date: 07/26/2024 Date of : 1955 Admission Date: 07/25/2024 5:14 AM Age: 69 y.o. Room/Bed: T1-109/T1-109 A Discharge Recommendation: Continue to assess pending progress, Home with assist PRN Equipment Needed: No Assessment IMPRESSION: 69 y.o. pt admitted to [facility] for CAD, s/p CABG x3 07/25. They were Min A for bed mobility, CGA for transfers, and CGA for ambulation. He is from home alone, indep DIRECT OF REAL ESTATE. Currently limited d/t fatigue. Would anticipate home with assistance PRN at discharge with progress. Admitting Diagnosis: CAD, s/p CABG x3 12/26 Prognosis: good Performance Deficits /Impairments: Increased Pain, Decreased Functional Mobility, and Decreased Endurance Decision Making: Medium Complexity Subjective Pt seated in recliner. Agreeable to PT session. Cleared by nursing Pain: Gonzalez-Manuel Pain Ratin = Hurts little more Pain Location: pulling in chest Past Medical History: Past Medical History: Diagnosis Date Arrhythmia v-fib/ arrest CAD (coronary artery disease) Cancer (CMS/HCC) (HCC) LUNG UPPER RIGHT - SURGERY FOR REMOVAL 02/09/2024 Congenital heart disease Hyperlipidemia Hypertension [place], old 2011- [facility] Sleep apnea NO CPAP WORN Past Surgical History: Past Surgical History: Procedure Laterality Date ADENOIDECTOMY APPENDECTOMY CARDIAC CATHETERIZATION N/A 07/05/2024 Performed by Becky Tineo MD at [facility] Cardiac Cath/EP Lab CARDIAC PROCEDURE 03/15/2012 BMS mid dis RCA CARDIAC PROCEDURE 03/2012 REBECCA to mis dist LAD CARDIAC PROCEDURE 05/2012 REBECCA to prox LCx COLONOSCOPY CORONARY ANGIOPLASTY 05/2012 circ, distal RCA, & LAD TONSILLECTOMY Admission Diagnosis: Patient Active Problem List Diagnosis Date Noted 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 Fall Risk: Vicente Fall Risk Score: 20 (Low Risk) Precautions/Restrictions: Sternal Precautions: No lifting greater than 10 lbs. Ok for modified UE precautions using Keep Your Move in the Tube technique Lines/Drains/Airways: PIV, tele, chest tube to wall suction, external pacer, central line, 2L O2 via NC, sher Fall Precautions Family/Caregiver Present: none Overall Cognitive Status: WNL Overall Orientation Status: Oriented x4 Vision: wears glasses at all times and and are being used during the eval Hearing: normal Social/Functional History Patient admitted from home. Lives With: Alone Type of Home: mobile home Home Layout: Single Level Home Home Access: Level Entry Bathroom Shower/Tub: Toilet: Standard Home Equipment: none Homemaking Responsibilities: Independent Receives Help From: None Active Unisaw Operator: Yes Occupation: retired Prior Level of Function Prior Level of ADL Function: Independent Prior Level of Mobility: Independent; Device: None Prior Level of Transfers: Independent Objective Lower Extremity Assessment AROM: WFL PROM: WFL Strength: WFL (4/5 overall) Sensation: WFL Balance: Balance During Session: Posture: good Sitting - Static: Supervision Sitting - Dynamic: Supervision Standing - Static: Contact Guard Standing - Dynamic: Contact Guard Standing at chair ~1 min prior to ambulation Bed Mobility: Sit to supine: Min Assist Cues for log rolling, good maintenance of sternal precautions. Cues for sequencing. Slight BLE assist Transfers Sit to stand: Contact Guard Stand to sit: Contact Guard Chair x1 at nezzie, cues for sequencing Ambulation Ambulation 1 Assistive device(s) used: Nezzie Assist level: Contact Guard Distance (ft): 100' + 10' Quality of gait: shuffling, wide ZANE, slow jb, 2 standing rest breaks, vitals WFL Exercises Performed P&C therex x4 each exercise with minimal cuing IS use to 750 mL x5 trials Outcome Measures AM-PAC How much HELP from another person do you currently need Turning from your back to your side while in a flat bed without using bedrails?: None Moving from lying on your back to sitting on the side of a flat bed without using bedrails?: A Little Moving to and from a bed to a chair (including a wheelchair)?: A Little Standing up from a chair using your arms (wheelchair or bedside chair)?: A Little Walking in a hospital room?: A Little Stair climbing assessed?: No AM-PAC Inpatient Mobility Raw Score (No Stairs) : 16 [facility] Score: Walked 25 ft or more (i.e. walked outside of room) Plan Pt (more content not included)... [facility] 07-26-2024 Consult note Associated Order (s): IP CONSULT TO CARDIAC REHAB Received referral and reviewed chart. Unable to discuss Phase II Cardiopulmonary Rehab Referral with Sharonda Flores at this time. Will follow to discuss program when appropriate. Patient will be contacted at home if discharged prior to discussion. [facility] 07-26-2024 Note Received referral an d reviewed chart. Unable to discuss Phase II Cardiopulmonary Rehab Referral with Sharonda Flores at this time. Will follow to discuss program when appropriate. Patient will be contacted at home if discharged prior to discussion. [facility] 07-25-2024 Note [facility] Care Department Progress Note Spontaneous Awakening Trial Wean Screen Safety Screen Spontaneous Breathing Trial (SBT - RT) : Proceed with SBT - No exclusion criteria met (07/25/24 144) Spontaneous Breathing Trial Weaning Start Time: 1441 (07/25/24 144) Weaning Tidal Volume: 522 mL (07/25/24 1441) Weaning Respiratory Rate: 13 (07/25/24 144) Spontaneous Minute Volume (MV): 7.07 (07/25/24 1441) Total RSBI: 40 (07/25/24 1441) Weaning Tolerance: Good (07/25/24 1441) Weaning Stop Time: 1520 (07/25/24 1441) Weaning Duration (min): 40 (07/25/24 144) Spontaneous Breathing Trial (SBT - RT) Outcome: SBT Passed (07/25/241440) Vent Settings Vent Mode: Spontaneous (07/25/24 1500) Mandatory Type: Pressure Control (07/25/24 144) Resp Rate (Set): 18 (07/25/24 144) Vt (Set, mL): 390 mL (07/25/24 144) FiO2 (%): 40 % (07/25/24 1500) PEEP/CPAP (cm H2O): 8 cm H20 (07/25/24 1441) Inspiratory Time (sec): 0.8 sec (07/25/24 144) Vitals MAP (mmHg): 71 (07/25/24 1230) Heart Rate: 69 (07/25/24 1500) Resp: 12 (07/25/24 1500) SpO2: 100 % (07/25/24 1500) Suctioning/Secretions ABG results Recent Labs 07/25/24 1156 07/25/24 1313 PHART 7.392 7.260* PHA2OLV 37.9 58.8* PO2ART 339.5* 154.5* LUD6CCV 22.5 25.8* [id number] Vent 60% Oxygen Does this patient meet criteria for termination of mechanical ventilation Yes- Notified physician below Name of physician notified via secure chat or in person : Mike Mosley MD (NA if patient did not meet criteria) Comments: Thank you for involving Respiratory in the care of this patient, [facility] 07-25-2024 Anesthesiology Postoperative evaluation and management note Patient: Sharonda Flores Procedure Summary Date: 07/25/24 Room / Location: [facility] Operating Room Anesthesia Start: 728 Anesthesia Stop: 1240 Procedures: CORONARY ARTERY BYPASS GRAFT (Chest) TRANSESOPHAGEAL ECHOCARDIOGRAM Diagnosis: 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) Surgeons: Brooklynn Martinez DO Responsible Provider: Fredi Buchanan MD Anesthesia Type: general ASA Status: 4 Anesthesia Type: general Vitals Value Taken Time BP 125/55 07/25/24 1356 Temp 37.1 07/25/24 1356 Pulse 72 07/25/24 1355 Resp 12 07/25/24 1355 SpO2 100 % 07/25/24 1355 Vitals shown include unfiled device data. Anesthesia Post Evaluation Patient participation: complete - patient cannot participate Post-procedure mental status: sedated/intubated. Pain score: 0 Pain management: adequate Multimodal analgesia pain management approach Airway patency: patent Two or more strategies used to mitigate risk of obstructive sleep apnea Cardiovascular status: hemodynamically stable Respiratory status: acceptable, intubated, ventilator and ETT Hydration status: acceptable No notable events documented. MIPS #430 PONV Patient received an inhalational anesthetic (4554F) Patient does not exhibit three or more risk factors for PONV (X0430)) MIPS # 424 Perioperative Temperature Management Anesthesia time was 60 minutes or longer (4255F) Anesthesai administered was General (inhalational or TIVA) or Neuraxial block (X0424) At least one body temperature greater than 95.8F/35.5C achieved within the 30 mins immediately prior to or the 15 minutes immediately following anesthesia end time (G9771) MIPS #477 Multimodal Pain Management Not emergent case Patient was administered multimodal pain management (two or more drugs and/or interventions excluding systemic opioids) in the periopeartive period occurring at some time between 6 hours prior to anesthesia start time until discharged from PACU (G2148) MIPS #404 Anesthesiology Smoking Abstinence The patient is not a current smoker (e.g. cigarette, cigar, pipe, e-cigarette/vaping/marijuana) If no stop here (XX404) I completed my handoff to the receiving clinician during which we: 1. Identified the patient 2. Identified the responsible provider 3. Reviewed the pertinent medical history 4. Discussed the surgical course 5. Reviewed intra-op anesthesia management and issues during anesthesia 6. Set expectations for post-procedure period 7. Allowed opportunity for questions and acknowledgement of understanding. [employer] Phone: 07-25-2024 Note Patient: Sharonda mohan Procedure Summary Date: 07/25/24 Room / Location: [address] Operating Room Anesthesia Start: 728 Anesthesia Stop: 1241 Procedures: CORONARY ARTERY BYPASS GRAFT (Chest) TRANSESOPHAGEAL ECHOCARDIOGRAM Diagnosis: 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) Surgeons: Brooklynn Martinez DO Responsible Provider: Fredi Buchanan MD Anesthesia Type: general ASA Status: 4 Anesthesia Type: general Vitals Value Taken Time BP 125/55 07/25/24 1356 Temp 37.1 07/25/24 1356 Pulse 72 07/25/24 1355 Resp 12 07/25/24 1355 SpO2 100 % 07/25/24 1355 Vitals shown include unfiled device data. Anesthesia Post Evaluation Patient participation: complete - patient cannot participate Post-procedure mental status: sedated/intubated. Pain score: 0 Pain management: adequate Multimodal analgesia pain management approach Airway patency: patent Two or more strategies used to mitigate risk of obstructive sleep apnea Cardiovascular status: hemodynamically stable Respiratory status: acceptable, intubated, ventilator and ETT Hydration status: acceptable No notable events documented. MIPS #430 PONV Patient received an inhalational anesthetic (4554F) Patient does not exhibit three or more risk factors for PONV (X0430)) MIPS # 424 Perioperative Temperature Management Anesthesia time was 60 minutes or longer (4255F) Anesthesai administered was General (inhalational or TIVA) or Neuraxial block (X0424) At least one body temperature greater than 95.8F/35.5C achieved within the 30 mins immediately prior to or the 15 minutes immediately following anesthesia end time (G9771) MIPS #477 Multimodal Pain Management Not emergent case Patient was administered multimodal pain management (two or more drugs and/or interventions excluding systemic opioids) in the periopeartive period occurring at some time between 6 hours prior to anesthesia start time until discharged from PACU (G2148) MIPS #404 Anesthesiology Smoking Abstinence The patient is not a current smoker (e.g. cigarette, cigar, pipe, e-cigarette/vaping/marijuana) If no stop here (XX404) I completed my handoff to the receiving clinician during which we: 1. Identified the patient 2. Identified the responsible provider 3. Reviewed the pertinent medical history 4. Discussed the surgical course 5. Reviewed intra-op anesthesia management and issues during anesthesia 6. Set expectations for post-procedure period 7. Allowed opportunity for questions and acknowledgement of understanding. [facility] 07-25-2024 Surgical operatio n note Patient: Sharonda Flores Procedure Summary Date: 07/25/24 Room / Location: [address] Operating Room Anesthesia Start: 728 Anesthesia Stop: 124 Procedures: CORONARY ARTERY BYPASS GRAFT (Chest) TRANSESOPHAGEAL ECHOCARDIOGRAM Diagnosis: 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) Surgeons: Brooklynn Martinez DO Responsible Provider: Fredi Buchanan MD Anesthesia Type: general ASA Status: 4 Anesthesia Type: general Vitals Value Taken Time BP 125/55 07/25/24 1356 Temp 37.1 07/25/24 1356 Pulse 72 07/25/24 1355 Resp 12 07/25/24 1355 SpO2 100 % 07/25/24 1355 Vitals shown include unfiled device data. Anesthesia Post Evaluation Patient participation: complete - patient cannot participate Post-procedure mental status: sedated/intubated. Pain score: 0 Pain management: adequate Multimodal analgesia pain management approach Airway patency: patent Two or more strategies used to mitigate risk of obstructive sleep apnea Cardiovascular status: hemodynamically stable Respiratory status: acceptable, intubated, ventilator and ETT Hydration status: acceptable No notable events documented. MIPS #430 PONV Patient received an inhalational anesthetic (4554F) Patient does not exhibit three or more risk factors for PONV (X0430)) MIPS # 424 Perioperative Temperature Management Anesthesia time was 60 minutes or longer (4255F) Anesthesai administered was General (inhalational or TIVA) or Neuraxial block (X0424) At least one body temperature greater than 95.8F/35.5C achieved within the 30 mins immediately prior to or the 15 minutes immediately following anesthesia end time (G9771) MIPS #477 Multimodal Pain Management Not emergent case Patient was administered multimodal pain management (two or more drugs and/or interventions excluding systemic opioids) in the periopeartive period occurring at some time between 6 hours prior to anesthesia start time until discharged from PACU (G2148) MIPS #404 Anesthesiology Smoking Abstinence The patient is not a current smoker (e.g. cigarette, cigar, pipe, e-cigarette/vaping/marijuana) If no stop here (XX404) I completed my handoff to the receiving clinician during which we: 1. Identified the patient 2. Identified the responsible provider 3. Reviewed the pertinent medical history 4. Discussed the surgical course 5. Reviewed intra-op anesthesia management and issues during anesthesia 6. Set expectations for post-procedure period 7. Allowed opportunity for questions and acknowledgement of understanding. Associated Order(s): Central Venous Line Central Venous Line: Date/Time: 07/25/2024 7:55 AM A central venous line was placed in the Procedural for the following indication(s): Sterility preparation included the following: provider hand hygiene performed prior to central venous catheter insertion, all 5 sterile barriers used (gloves, gown, cap, mask, large sterile drape) during central venous catheter insertion, antiseptic used during central venous catheter insertion and skin prep agent completely dried prior to procedure. The patient was placed in Trendelenburg position. Right The site was prepped with Chlorhexidine. Size: 8.5 Fr Catheter type: introducer During the procedure, the following specific steps were taken: target vein identified, needle advanced into vein and blood aspirated and guidewire advanced into vein. Procedure performed using ultrasound guidance - Image permanently retained with wire or catheter in vein. Sterile gel and probe cover used in ultrasound-guided central venous catheter insertion. Intravenous verification was obtained by ultrasound. Post insertion care included: all ports aspirated, all ports flushed easily, guidewire removed intact, Biopatch applied, line sutured in place and dressing applied. During the procedure the patient experienced: patient tolerated procedure well with no complications. Staffing Performed: SALES ATTENDANT Resident/SALES ATTENDANT: SESAR Veronica CRNA Associated Order(s): Arterial Line Arterial Line: Date/Time: 07/25/2024 9:42 AM An arterial line was placed Procedure performed using ultrasound guidance - Image permanently retained with wire or catheter in vein.in the Procedural for the following indication(s): continuous blood pressure monitoring and blood sampling needed. A 20 gauge (size), 1 and 3/4 inch (length), Arrow (type) catheter was placed, into the Left radial artery, secured by Tegaderm and tape. Events: patient tolerated procedure well with no complications. Staffing Performed: SALES ATTENDANT Resident/SALES ATTENDANT: SESAR Veronica CRNA Patient: Sharonda Flores Procedure Information Date/Time: 07/25/24 0730 Procedures: CORONARY ARTERY BYPASS GRAFT (Chest) - 7:30 am, 5 hours TRANSESOPHAGEAL ECHOCARDIOGRAM Location: [address] Operating Room Surgeons: Brooklynn Martinez, DO Relevant Problems Cardio (+) Coronary artery disease involving chilkoot coronary artery of chilkoot heart without angina pectoris (+) 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) (+) Hyperlipidemia Past Medical History: Past Medical History: No date: Arrhythmia Comment: v-fib/ arrest No date: CAD (coronary artery disease) No date: Cancer (CMS/HCC) (HCC) Comment: LUNG UPPER RIGHT - SURGERY FOR REMOVAL 02/09/2024 No date: Congenital heart disease No date: Hyperlipidemia No date: Hypertension No date: [place], old Comment: [place] No date: Sleep apnea Comment: NO CPAP WORN Past Surgical History: Past Surgical History: No date: ADENOIDECTOMY No date: APPENDECTOMY 07/05/2024: CARDIAC CATHETERIZATION; N/A Comment: Performed by Becky Tineo MD at [facility] Cardiac Cath/EP Lab 03/15/2012: CARDIAC PROCEDURE Comment: BMS mid dis RCA 03/2012: CARDIAC PROCEDURE Comment: REBECCA to mis dist LAD 05/2012: CARDIAC PROCEDURE Comment: REBECCA to prox LCx No date: COLONOSCOPY 05/2012: CORONARY ANGIOPLASTY Comment: circ, distal RCA, & LAD No date: TONSILLECTOMY Social History: TOBACCO: reports that he quit smoking about 12 years ago. His smoking use included cigarettes. He started smoking about 69 years ago. He has a 112.2 pack-year smoking history. He quit smokeless tobacco use about 54 years ago. ETOH: reports no history of alcohol use. Social History Substance and Sexual Activity Drug Use No Family History: Family History Problem Relation Name Age of Onset Heart disease Father Thad No Known Problems Mother Cancer Maternal Grandfather Mother Screening: unknown Clinical information reviewed: Tobacco Allergies Meds Med Hx Surg Hx Fam Hx Soc Hx Physical Exam Airway Mallampati: I TM distance: >3 FB Neck ROM: full Mouth Open: normalendotracheal tube not in place Cardiovascular Dental (+) Upper Partials, edentulous Comments: UPPER PARTIALS AND EDENTULOUS BOTTOM ; NOTHING COMES OUT Pulmonary Abdominal Anesthesia Plan patient is NPO appropriate Any family history or previous problems with anesthesia no ASA 4 general Any family history or previous problems with anesthesia no The patient is not a current smoker. Anesthetic plan and risks discussed with patient. TRAM Screening STOP-Bang Total Score: 4 Labs: No results found for: WBC, HGB, HCT, MCV, PLT Lab Results Component Value Date NA 138 09/30/2020 K 4.9 09/30/2020 CL 105 09/30/2020 CO2 30 09/30/2020 BUN 15 09/30/2020 CREATININE 0.81 09/30/2020 GLUCOSE 77 09/30/2020 CALCIUM 9.4 09/30/2020 PROT 7.3 09/30/2020 ALKPHOS 63 09/30/2020 AST 29 09/30/2020 No echocardiogram results found for the past 14 days 06/11/24 ECG 12-LEAD 07/06/2024 9:28 AM (Final) Narrative Sinus Rhythm WITHIN NORMAL LIMITS Signed by: Becky Tineo on 07/06/2024 9:28 AM Equipment Requests: Additional Equipment Requests documented in this encounter [facility] 07-25-2024 Miscellaneous Notes Patient: Sharonda Flores Procedure Summary Date: 07/25/24 Room / Location: [address] Operating Room Anesthesia Start: 728 Anesthesia Stop: 124 Procedures: CORONARY ARTERY BYPASS GRAFT (Chest) TRANSESOPHAGEAL ECHOCARDIOGRAM Diagnosis: 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) Surgeons: Brooklynn Martinez DO Responsible Provider: Fredi Buchanan MD Anesthesia Type: general ASA Status: 4 Anesthesia Type: general Vitals Value Taken Time BP 125/55 07/25/24 1355 Temp 37.1 07/25/24 1355 Pulse 74 07/25/24 1354 Resp 12 07/25/24 1354 SpO2 100 % 07/25/24 1354 Vitals shown include unfiled device data. Anesthesia Post Evaluation Patient location during evaluation: ICU Patient participation: complete - patient cannot participate Level of consciousness: intubated and sedated Pain management: adequate Airway patency: patent Dental Injury: no Cardiovascular status: acceptable and hemodynamically stable Respiratory status: acceptable, ETT, intubated and ventilator Hydration status: acceptable Nausea/Vomiting: controlled No notable events documented. Patient can be discharged once all PACU criteria has been met. documented in this encounter [facility] 07-25-2024 Note Formatting of this n ote is different from the original. Patient: Sharonda Flores Procedure Summary Date: 07/25/24 Room / Location: [address] Operating Room Anesthesia Start: 728 Anesthesia Stop: 1241 Procedures: CORONARY ARTERY BYPASS GRAFT (Chest) TRANSESOPHAGEAL ECHOCARDIOGRAM Diagnosis: 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) Surgeons: Brooklynn Martinez DO Responsible Provider: Fredi Buchanan MD Anesthesia Type: general ASA Status: 4 Anesthesia Type: general Vitals Value Taken Time BP 125/55 07/25/24 1355 Temp 37.1 07/25/24 1355 Pulse 74 07/25/24 1354 Resp 12 07/25/24 1354 SpO2 100 % 07/25/24 1354 Vitals shown include unfiled device data. Anesthesia Post Evaluation Patient location during evaluation: ICU Patient participation: complete - patient cannot participate Level of consciousness: intubated and sedated Pain management: adequate Airway patency: patent Dental Injury: no Cardiovascular status: acceptable and hemodynamically stable Respiratory status: acceptable, ETT, intubated and ventilator Hydration status: acceptable Nausea/Vomiting: controlled No notable events documented. Patient can be discharged once all PACU criteria has been met. [facility] 07-25-2024 Note Patient: Sharonda mohan Procedure Summary Date: 07/25/24 Room / Location: [address] Operating Room Anesthesia Start: 728 Anesthesia Stop: 1241 Procedures: CORONARY ARTERY BYPASS GRAFT (Chest) TRANSESOPHAGEAL ECHOCARDIOGRAM Diagnosis: 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) Surgeons: Brooklynn Martinez DO Responsible Provider: Fredi Buchanan MD Anesthesia Type: general ASA Status: 4 Anesthesia Type: general Vitals Value Taken Time BP 125/55 07/25/24 1355 Temp 37.1 07/25/24 1355 Pulse 74 07/25/24 1354 Resp 12 07/25/24 1354 SpO2 100 % 07/25/24 1354 Vitals shown include unfiled device data. Anesthesia Post Evaluation Patient location during evaluation: ICU Patient participation: complete - patient cannot participate Level of consciousness: intubated and sedated Pain management: adequate Airway patency: patent Dental Injury: no Cardiovascular status: acceptable and hemodynamically stable Respiratory status: acceptable, ETT, intubated and ventilator Hydration status: acceptable Nausea/Vomiting: controlled No notable events documented. Patient can be discharged once all PACU criteria has been met. [facility] 07-25-2024 Consult note Associated Order (s): IP CONSULT TO ENDOCRINOLOGY Department of Internal Medicine Division of Endocrinology, Diabetes, & Metabolism Endocrinology Note Patient Name: Sharonda Flores : 1955 AGE: 69 y.o. Room/Bed: T1-109/T1109 A Admission Date: 07/25/2024 Visit Date: 07/25/2024 Reason for Endocrine Consult: Stress hyperglycemia Provider/Team Requesting Consult: Cardiology PCP: Tima Tello MD Outpt Industrial Therapist: No ASSESSMENT: Stress induced hyperglycemia Steroid induced hyperglycemia Status post CABGx3 CAD PLAN: Continue insulin gtt per protocol Monitor ICU goal <180 GMF goal <150 POCT BG ACHS Hypoglycemia management per protocol Carb controlled diet ANTICIPATED ENDOCRINE HOME GOING RECOMMENDATIONS: Optimized for Discharge from Endocrine standpoint: Yes Home Going Endocrine Rx Recommendations-- None Outpt Follow Up-- PCP SUBJECTIVE/HPI: CHIEF COMPLAINT: No chief complaint on file. Status post CABG Intubated and chest tube in place, on pacer Gtt: propofol and insulin (off at time of consult) No pressors are on Received dexamethasone earlier today Blood glucose tightly controlled at this time No history of DM, no A1C available Will clarify patient medical history once extubated Type of DM: NA Onset of DM: NA Home DM Medication Regimen: NA DM control (last A1c/glucose data): No results found for: HGBA1C Glucose Date/Time Value Ref Range Status 07/25/2024 12:35 PM 87 70 - 100 mg/dL Final Review of Systems Reason unable to perform ROS: intubated. ROS negative except for those mentioned in HPI. OBJECTIVE: Vitals: 07/25/24 0530 07/25/24 0832 07/25/24 1230 BP: 132/78 (!) 119/44 BP Location: Left arm Patient Position: Lying Pulse: 62 76 Resp: 16 14 Temp: 36.1 C (97 F) (!) 35.6 C (96.1 F) TempSrc: Tympanic Temporal SpO2: 98% 100% Weight: 164 lb (74.4 kg) 164 lb (74.4 kg) Height: 5' 5 (1.651 m) 5' 5 (1.651 m) Physical Exam Vitals reviewed. Constitutional: Appearance: Normal appearance. He is ill-appearing. HENT: Head: Normocephalic and atraumatic. Right Ear: External ear normal. Left Ear: External ear normal. Nose: Nose normal. Mouth/Throat: Pharynx: Oropharynx is clear. Cardiovascular: Rate and Rhythm: Normal rate. Pulmonary: Effort: Pulmonary effort is normal. Chest: Comments: Chest tube in place Skin: General: Skin is warm and dry. Comments: Midline incision intact Neurological: Mental Status: He is alert. 24 hour intake/output: Intake/Output Summary (Last 24 hours) at 07/25/2024 1240 Last data filed at 07/25/2024 1230 Gross per 24 hour Intake 1176 ml Output 1100 ml Net 76 ml Diet: NPO diet Medications (as per EMR): HomeMeds: Current Outpatient Medications Medication Instructions aspirin 81 mg, Daily before breakfast atorvastatin (LIPITOR) 80 mg, Oral, Every evening carvedilol (COREG) 6.25 mg, Oral, 2 times daily ezetimibe (ZETIA) 10 mg, Daily before breakfast isosorbide mononitrate ER (IMDUR) 30 mg, Oral, Daily, Do not crush or chew. mupirocin (Bactroban) 2 % ointment Apply liberal amount per nostril the night before surgery and then again the morning of surgery nitroglycerin (Nitrostat) 0.4 MG SL tablet DISSOLVE 1 TABLET UNDER THE TONGUE EVERY 5 MINUTES NEEDED. Scheduled Meds:acetaminophen, 1,000 mg, Oral, q8h ceFAZolin, 2,000 mg, IntraVENous, q8h chlorhexidine, 15 mL, Mouth/Throat, BID Lidocaine, 1 patch, Topical, Daily mupirocin, , Nasal, BID [START ON 07/26/2024] pantoprazole, 40 mg, IntraVENous, Daily polyethylene glycol (PEG) 3350, 17 g, Oral, Daily senna-docusate sodium, 2 tablet, Oral, Nightly sodium chloride 0.9%, 5-40 mL, IntraCATHeter, q8h Continuous Infusions:EPINEPHrine, 0.01-0.2 mcg/kg/min insulin regular, 1-50 Units/hr lactated ringers, 250 mL nitroprusside, 0.1-3 mcg/kg/min norepinephrine, 0.01-0.2 mcg/kg/min propofol, 5-50 mcg/kg/min sodium chloride, 20 mL/hr sodium chloride, 50 mL/hr, Last Rate: 50 mL/hr (12/26/24 0621) PRN Meds:PRN medications: albumin human, calcium gluconate, dextrose, dextrose, EPINEPHrine, glucagon (rDNA), glucose, ipratropium-albuterol, lactated ringers, magnesium hydroxide, magnesium sulfate OR magnesium sulfate, morphine sulfate OR morphine sulfate, nitroprusside, norepinephrine, ondansetron ODT OR ondansetron, oxyCODONE OR oxyCODONE, potassium chloride OR potassium chloride OR potassium chloride, [START ON 07/26/2024] potassium chloride CR, sodium chloride 0.9% Diagnostic Workup: I reviewed pertinent Laboratory results, Radiographic results, and Other Clinical Notes at the time of today's encounter. Labs: No components found for: LABA1C No components found for: EAG No results found for: NA, K, CL, CO2, BUN, CREATININE, GLUCOSE, CALCIUM Lab Results Component Value Date CHLPL 217 10/21/2019 CHOL 242 (A) 09/30/2020 Lab Results Component Value Date TRIG 164 (A) 09/30/2020 TRIG 170 10/21/2019 Lab Results Component Value Date HDL 34 (L) 09/30/2020 HDL 32 (A) 10/21/2019 Lab Results Component Value Date LDLCALC 151 10/21/2019 Lab Results Component Value Date VLDL 34 10/21/2019 Lab Results Component Value Date CHOLHDLRATIO 7 09/30/2020 CHOLHDLRATIO 6.78 10/21/2019 No results found for: UADE26ZPD No results found for: TSH, W1QSIGQ, N8NZBKM, THYROIDAB Radiology reportsas per the Radiologist Radiology: POCT glucose meter Result Date: 07/25/2024 Performed by: [facility], [address] [place] [address] CLIA ID: [id number] History/Other: Past Medical History: Past Medical History: Diagnosis Date Arrhythmia v-fib/ arrest CAD (coronary artery disease) Cancer (CMS/HCC) (HCC) LUNG UPPER RIGHT - SURGERY FOR REMOVAL 02/09/2024 Congenital heart disease Hyperlipidemia Hypertension [place], old 2012- [place] Sleep apnea NO CPAP WORN Past Surgical History: Past Surgical History: Procedure Laterality Date ADENOIDECTOMY APPENDECTOMY CARDIAC CATHETERIZATION N/A 07/05/2024 Performed by Becky Tineo MD at [facility] Cardiac Cath/EP Lab CARDIAC PROCEDURE 03/15/2012 BMS mid dis RCA CARDIAC PROCEDURE 03/2012 REBECCA to mis dist LAD CARDIAC PROCEDURE 05/2012 REBECCA to prox LCx COLONOSCOPY CORONARY ANGIOPLASTY 05/2012 circ, distal RCA, & LAD TONSILLECTOMY Allergy(ies): Allergies Allergen Reactions Pcn [Penicillins] Rash Family History: Family History Problem Relation Name Age of Onset Heart disease Father Thad No Known Problems Mother Cancer Maternal Grandfather Mother Social History: Social History Tobacco Use Smoking status: Former Current packs/day: 0.00 Average packs/day: 2.0 packs/day for 56.1 years (112.2 ttl pk-yrs) Types: Cigarettes Start date: 1955 Quit date: 08/17/2011 Years since quittin.9 Smokeless tobacco: Former Quit date: 1970 Tobacco comments: Quit smoking: currently occ cigar Vaping Use Vaping status: Never Used Substance Use Topics Alcohol use: No Drug use: No Portions of the information within this encounter were entered using an electronic dictation system. Best attempts were made to edit/proofread the information prior to note completion. Despite the review of information, some errors may remain. If there are questions related to the information contained within the note please contact the signing physician directly. I spent 30 minutes with the pt which involved coordination of care, medical evaluation, review of records, and/or counseling of the pt regarding his/her condition/disease state/prognosis on the date of this note. Cosigned by Patsy Telles MD at 07/25/2024 3:39 PM EST Associated attestation - Patsy Telles MD - 07/25/2024 3:39 PM EST I have personally performed a face to face diagnostic evaluation on this patient. 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 My findings are as follows: Status post CABG for coronary artery disease No previous history of diabetes Not on diabetes medication Hemoglobin A1c 6% but obtained after surgery which is not reliable in the setting of anemia His blood glucose reading was fine before surgery on July 18 Vitals: BP (!) 119/44 (BP Location: Left arm, Patient Position: Lying) Pulse 81 Temp (!) 35.6 C (96.1 F) (Temporal) Resp 18 Ht 5' 5 (1.651 m) Wt 164 lb (74.4 kg) SpO2 100% BMI 27.29 kg/m Constitutional: intubated Respiratory: No respiratory distress Cardiovascular System: No lower extremity edema A/P Stress hyperglycemia status post CABG Continue insulin drip BG Q 1 hour per protocol Will switch insulin drip to sc insulin if needed in 24 to 48 hours. Do not anticipate that patient will need diabetes regimen on discharge but we will monitor blood glucose readings Old records including available PCP, ED notes and or other specialists notes are reviewed. LABs and/or imaging are reviewed as detailed in the resident's/COREMAKER HELPER/PIG MACHINE SUPERVISOR's note [facility] 07-25-2024 Procedure anesthe shivam Narrative Procedure Name Responsible Anesthesiologist Anesthesia Start Time Anesthesia Stop Time CORONARY ARTERY BYPASS GRAFT (Chest) Fredi Buchanan MD 07/25/24 0729 07/25/24 1241 Events Date Time Event Comment 07/25/2024 0700 0729 An Start 0729 An Start Data 0729 In Room 0744 An Induction The patient was reevaluated immediately before moderate or deep sedation use and before anesthesia induction. 0745 An Intubation 0749 Perfusion Start 0810 Anesthesia Ready 0812 AN ZARI Placed By: Costa deleon MDA 0830 Proc Start 0917 ACT Adequate for CPB 0933 Art Line Pulse/Test 0945 An CV Bypass init 0945 Yousuf Jair PRN 0950 An Clamp On 1036 AN Active Warm 1126 An Clamp Off 1136 An CV Bypass Ended 1224 Proc Fin 1224 an stop data 1234 Out of Room 1234 Perfusion Stop 1241 An Stop Meds Name Total perfusion prime builder 400 mL albumin human 25% 200 mL albumin human 25 % 200 mL sodium bicarbonate 1 mEq/mL IV injection 50 mEq midazolam (Versed) injection 2 mg/2 mL 2 mg fentaNYL (Sublimaze) injection 20 mL 600 mcg lidocaine PF (Xylocaine-MPF) local injec tion 2 % 100 mg etomidate (Amidate) injection 20 mg rocuronium (ZeMuron) 50 mg/5 mL injectio n 150 mg esmolol (Brevibloc) 25 mg heparin injection 1,000 units/mL 41,000 Units protamine injection 310 mg ondansetron (Zofran) 2 mg/mL injection 4 mg dexAMETHasone (Decadron) PF injection 10 mg/mL 4 mg ketamine injection 10 mg/mL (50 mg/5 mL) prefilled syringe 50 mg aminocaproic acid (Amicar) 10g in sodium chloride 0.9% 290 mL infusion 8.35 g calcium chloride 10% IV syringe 1,000 mg calcium chloride injection 500 mg ceFAZolin (Ancef) vial 1 g 4 g sodium chloride 0.9 % infusion 400 mL * Agents Name O2 Sevoflurane Isoflurane * Blood No blood administrations on file. Lines, Drains, and Airways Type Details Placement Removal Peripheral IV Placement Date: 07/25/24; Placement Time: 06; Catheter Size: 20 G; Orientation: Left, Posterior; Location: Wrist; Local Anesth: None; Inserted by: st; Insertion Attempts: 2; Difficult Venous Access? 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 HARVEST 07/25/24 0841 by Jorge Trivedi RN Wound/Incision 07/25/24; 0845; N; Incision; Sternum; Lower; CABG 07/25/24 0845 by Jorge Trivedi RN Chest Tube Placement Date: 07/25/24; Placement Time: 114; Inserted by: SURGEON; Location: Mediastinal; Size: 24 Fr 07/25/24 1145 by Jorge Trivedi RN Pacer Wires 07/25/24; 1240; 07/25/24; Ventricular 07/25/24 1240 by Sebastián Colbert RN Introducer Double Placement Date: 07/25/24; Placement Time: 075 (created via procedure documentation); Location: Internal jugular; Orientation: Right; Removal Date: 07/25/24; Removal Time: 199907/25/24 075 by SESAR Veronica CRNA 07/25/241999 by Imelda Bustillo RN Urethral Catheter Placement Date: 07/25/24; Placement Time: 0800; Inserted by: LONA; Type: Straight-tip; Balloon Size: 10 mL; Urine Returned: Yes; Removal Date: 07/26/24; Removal Time: 1347; Removal Reason: Other (Comment) (per dr martinez) 07/25/24 0800 by Jorge Trivedi RN 07/26/24 1347 by Dewayne Maria RN Arterial Line Placement Date: 07/25/24; Placement Time: 0942 (created via procedure documentation); Size: 20 G; Orientation: Left; Location: Radial; Securement: Taped; Patient Tolerance: Tolerated well; Removal Date: 07/26/24; Removal Time: 07; Removal Reason: Per order 07/25/24 0942 by SESAR Veronica CRNA 07/26/24 0730 by Dewayne Maria RN Chest Tube Placement Date: 07/25/24; Placement Time: 1145; Inserted by: SURGEON; Location: Mediastinal; Size: 28 Fr; Removal Date: 07/25/24; Removal Time: 1242 07/25/24 1145 by Jorge Trivedi RN 07/25/24 1242 by Sebastián Colbert RN ETT Placement Date: 07/25/24; Placement Time: 1240; Location: Oral; Removal Date: 07/25/24; Removal Time: 1524 07/25/24 1240 by Sebastián Colbert RN 07/25/24 1524 by Tosin Felipe RCP NG/OG Tube Placement Date: 07/25/24; Placement Time: 1240; Type: Orogastric; Location: Center mouth; Removal Date: 07/25/24; Removal Time: 191 (Not present upon first assessment. Removed at time of extubation); Removal Reason: Per order 07/25/24 1240 by Sebastián Colbert RN 07/25/24 1915 by Imelda Bustillo RN [id number]* Anesthesia Procedure Notes - SESAR Veronica CRNA - 07/25/2024 9:11 AM ESTAssociated Order(s): Central Venous Line Central Venous Line: Date/Time: 07/25/2024 7:55 AM A central venous line was placed in the Procedural for the following indication(s): Sterility preparation included the following: provider hand hygiene performed prior to central venous catheter insertion, all 5 sterile barriers used (gloves, gown, cap, mask, large sterile drape) during central venous catheter insertion, antiseptic used during central venous catheter insertion andskin prep agent completely dried prior to procedure. The patient was placed in Trendelenburg position. Right The site was prepped with Chlorhexidine. Size: 8.5 Fr Catheter type: introducer During the procedure, the following specific steps were taken: target vein identified, needle advanced into vein and blood aspirated and guidewire advanced into vein. Procedure performed using ultrasound guidance - Image permanently retained with wire or catheter invein. Sterile gel and probe cover used in ultrasound-guided central venous catheter insertion. Intravenous verification was obtained by ultrasound. Post insertion care included: all ports aspirated, all ports flushed easily, guidewire removed intact, Biopatch applied, line sutured in place and dressing applied. During the procedure the patient experienced: patient tolerated procedure well with no complications. Staffing Performed: SALES ATTENDANT Resident/SALES ATTENDANT: SESAR Veronica CRNA [facility]12-26-2024 NoteCentral Venous Line: Date/Time: 07/25/2024 7:55 AM A central venous line was placed in the Procedural for the following indication(s): Sterility preparation included the following: provider hand hygiene performed prior to central venous catheter insertion, all 5 sterile barriers used (gloves, gown, cap, mask, large sterile drape) during central venous catheter insertion, antiseptic used during central venous catheter insertion and skin prep agent completely dried prior to procedure. The patient was placed in Trendelenburg position. Right The site was prepped with Chlorhexidine. Size: 8.5 Fr Catheter type: introducer During the procedure, the following specific steps were taken: target vein identified, needle advanced into vein and blood aspirated and guidewire advanced into vein. Procedure performed using ultrasound guidance - Image permanently retained with wire or catheter in vein. Sterile gel and probe cover used in ultrasound-guided central venous catheter insertion. Intravenous verification was obtained by ultrasound. Post insertion care included: all ports aspirated, all ports flushed easily, guidewire removed intact, Biopatch applied, line sutured in place and dressing applied. During the procedure the patient experienced: patient tolerated procedure well with no complications. Staffing Performed: JESSIE Resident/SALES ATTENDANT: Dewayne Rodriges APRN [facility]12-26-2024 Anesthesiology procedure note* Anesthesia Procedure Notes - SESAR Veronica CRNA - 07/25/2024 9:10 AM ESTAssociated Order(s): Arterial Line Arterial Line: Date/Time: 07/25/2024 9:42 AM An arterial line was placed Procedure performed using ultrasound guidance - Image permanently retained with wire or catheter invein.in the Procedural for the following indication(s): continuous blood pressure monitoring and blood sampling needed. A 20 gauge (size), 1 and 3/4 inch (length), Arrow (type) catheter was placed, into the Left radial artery, secured by Tegaderm and tape. Events: patient tolerated procedure well with no complications. Staffing Performed: JESSIE Resident/SALES ATTENDANT: SESAR Veronica [facility]RNA [id number] NoteArterial Line: Date/Time: 07/25/2024 9:42 AM An arterial line was placed Procedure performed using ultrasound guidance - Image permanently retained with wire or catheter in vein.in the Procedural for the following indication(s): continuous blood pressure monitoring and blood sampling needed. A 20 gauge (size), 1 and 3/4 inch (length), Arrow (type) catheter was placed, into the Left radial artery, secured by Tegaderm and tape. Events: patient tolerated procedure well with no complications. Staffing Performed: JESSIE Resident/SALES ATTENDANT: Dewayne Rodriges APRN [facility]12-26-2024 Consult note* SESAR Ybarra CNP - 07/25/2024 8:32 AM EST Images from the original note were not included. [facility]: Critical Care Consultation Note Date: 07/25/24 PATIENT NAME: Sharonda Flores : 1955 (69 y.o.) Reason for Consult: Critical Care & Vent Management HPI: Sharonda Flores is a 68 y.o. male referred by Dr. Tineo for CABG. Patient's PMHx includes CAD (s/p several PCI, most recently 2011 - LAD, LCx, distal RCA with known PHYSICIAN NON INVASIVE CARDIOLOGIST D2), preserved LVEF (65%), HTN, HLD, PAD (follows with vascular at [facility]), prior tobacco use, pulmonary nodules, adenocarcinoma s/p RUL lobectomy 01/2024 (follows with Pulmonology), and psoriasis. Patient had presented to [facility] ED with a sharp pain in the center of his chest with left shoulder ache. He had associated diaphoresis and nausea. EKG was normal.Troponin was WNL. Discharged and advised to follow up with Cardiology. A stress echocardiogram was ordered and completed on 06/25/24 which was abnormal. He then underwent a heart catheterization on 07/08/24 which demonstrated multivessel CAD. Seen by Dr. Martinez in OP setting, agreeable to CABG, scheduled for 07/25/24. Surgery: 07/25/24: Dr. Martinez- CABG x3 (GREY-LAD, SVG-Diag, SVG-PDA), LAD endarterectomy LEVH, ZARI Interval History: 07/25/24: POD #0: Patient arrived to the unit, intubated and sedated. Surgical hand off completed below. Surgery Hand Off: Arrival Time in CTVICU: 1230 Complications/Pertinent Events: Last Paralytic: 0900 Medications given in route: Gtts OR report Propofol: 20mcg/kg/min Insulin: off Amicar: 29 Current gtts upon arrival Propofol: 50mcg/kg/min Insulin: off Amicar: 29 Devices: Epicardial wires: yes [x] no [] IABP: yes [] no [x] LVAD: yes [] no [x] Speed: Equipment: Back up controller yes [] no [x] Blood Transfusions Intra Op: yes [] no [x] CellSaver: yes Vital Signs including Cardiac Numbers (if indicated) at Conclusion of Hand-off OR CTVICU CO No [place] CI CVP SVR PAP Additional Interventions/Misc during Handoff Review of Systems Unable to perform ROS: Intubated Allergies: Pcn [penicillins] Past Medical History: has a past medical history of Arrhythmia, CAD (coronary artery disease), Cancer (CMS/HCC) (HCC), Congenital heart disease, Hyperlipidemia, Hypertension, [place], old, and Sleep apnea. Past Surgical History: has a past surgical history that includes Cardiac procedure (03/15/2012); Cardiac procedure (03/2012); Cardiac procedure (05/2012); Coronary angioplasty (05/2012); Cardiac catheterization (N/A, 07/05/2024); Colonoscopy; Tonsillectomy; Adenoidectomy; and Appendectomy. Social History: reports that he quit smoking about 12 years ago. His smoking use included cigarettes. He started smoking about 69 years ago. He has a 112.2 pack-year smoking history. He quit smokeless tobacco use about 54 years ago. He reports that he does not drink alcohol and does not use drugs. Family History: family history includes Cancer in his maternal grandfather; Heart disease in his father; No Known Problems in his mother. Medications: Prior to Admission medications Medication Sig Start Date End Date Taking? Authorizing Provider aspirin 81 MG EC tablet Take 81 mg by mouth every morning (before breakfast). Yes Historical Provider, atorvastatin (Lipitor) 80 MG tablet Take 1 tablet (80 mg) by mouth every evening. Patient taking differently: Take 80 mg by mouth every morning (before breakfast). 02/08/24 Yes MD Darcie carvedilol (Coreg) 6.25 MG tablet Take 1 tablet (6.25 mg) by mouth 2 times daily. 01/30/24 Yes Jazmyn White APRN - RENEE ezetimibe (Zetia) 10 MG tablet Take 10 mg by mouth every morning (before breakfast). 12/08/23 12/07/24 Yes Historical Provider, isosorbide mononitrate ER (Imdur) 30 MG 24 hr tablet Take 1 tablet (30 mg) by mouth daily. Do not crush or chew. Patient taking differently: Take 30 mg by mouth every morning (before breakfast). Do not crush or chew. 06/25/24 06/25/25 Yes Horace L. Michelle, PULLER OVER - DISASTER RECOVERY MANAGER mupirocin (Bactroban) 2 % ointment Apply liberal amount per nostril the night before surgery and then again the morning of surgery Patient not taking: Reported on 07/25/2024 07/12/24 Jose Eaton, PULLER OVER - RENEE nitroglycerin (Nitrostat) 0.4 MG SL tablet DISSOLVE 1 TABLET UNDER THE TONGUE EVERY 5 MINUTES NEEDED. Patient not taking: Reported on 07/25/2024 11/23/21 Historical Provider, Objective: BP 132/78 Pulse 62 Temp 36.1 C (97 F) (Tympanic) Resp 16 Ht 5' 5 (1.651 m) Wt 164 lb (74.4 kg) SpO2 98% BMI 27.29 kg/m No intake or output data in the 24 hours ending 07/25/24 0833 Physical Exam Vitals reviewed. Constitutional: Interventions: He is sedated and intubated. HENT: Mouth/Throat: Comments: ETT/OG Neck: Comments: Central line Cardiovascular: Rate and Rhythm: Normal rate and regular rhythm. Pulses: Normal pulses. Heart sounds: No murmur heard. Pulmonary: Effort: He is intubated. Breath sounds: No wheezing, rhonchi or rales. Comments: Ventilator assisted Abdominal: General: There is no distension. Palpations: Abdomen is soft. Comments: Chest tubes in place Genitourinary: Comments: Sher Musculoskeletal: General: No swelling. Skin: General: Skin is warm and dry. Capillary Refill: Capillary refill takes less than 2 seconds. Comments: MSI well approximated, no redness, warmth or drainage. LEVH with SIMRAN wrap intact. Neurological: Comments: Sedated Diagnostics: Reviewed in EMR Labs: Reviewed in EMR BMP:No results for input(s): NA, K, CL, CO2, BUN, CREATININE, CALCIUM, MG, PHOS in the last 72 hours. CBC: No results for input(s): WBC, HGB, HCT, PLT, MCV, RDW in the last 72 hours. INR: No results for input(s): INR in the last 72 hours. Assessment: CAD s/p multiple PCI's, now s/p CABG HTN HLD PAD Adenocarcinoma s/p RUL lobectomy (02/17/24) Former smoker Psoriasis Post operative Pulm Management: Normal Post-operative Course Post-operative Atrial Fibrillation: []Yes [x] No Acute blood loss anemia/consumptive thrombocytopenia Plan: - Sugamadex - Wean sedation as able, goal RASS -1 to 0 - SAT/SBT when appropriate-> extubate - STAT EKG and CXR - Review lab work, re-send if needed - Replete electrolytes per PRN protocols - Start Plavix tomorrow AM for endarterectomy - No [place], okay to check VBG and Ozzie if concerns for low CI - Hemodynamic goals: CI >2.0, SBP 90-130 mmHg, MAP 60-75 - PRN Hypertension 1st option Cardene gtt 2nd option or if Cardene unavailable Nitro -PRN Hypotension CI >2.0 euvolemic with low SVR- Levophed gtt CI <2.0 euvolemic - Epinephrine gtt - Temp pacing wires/mode: v-wires to backup - Chest tubes: no air leak or fluctuation noted, suction - Cefazolin - surgical prophy for 5 doses total - Wean to Extubation: Arrival Time in unit: 1230 - Vent: ACVC+, TV 6ml/kg/min, rate 12, fio2 100% PEEP 8 VAP protocol: HOB >30 degrees; peridex BID - HgbA1c: Ordered - Blood glucose 87 - Insulin gtt; per endo/protocol - GI prophy: Protonix IV daily Critical Care time spent 35 minutes. The time involved in the performance of this care was exclusive of separately billable procedures, teaching time and treating other patients. The time was spent personally by myself for the following activities: examination of the patient, ordering and/or performing treatment, reviewing the laboratory and radiographic studies, and if applicable, ventilator management and blood gas interpretation. Patient treatment plan and plan of care discuss with Dr. Mike Davey Cosigned by Mike Mosley MD at 07/25/2024 2:53 PM EST Associated attestation - Nadia-Mike Davey MD - 07/25/2024 2:53 PM EST I have personally performed a face to face diagnostic evaluation on this patient today on 07/25/24.Labs, imaging studies, and electronic medical record notes on [employer] have been reviewed by me. This note documented and discussed by the []community arts officer []Fellow [x] CHIQUIS reflects my history, exam and medical decision making. I have reviewed and agree with the care plan. Changes were made in the orders as necessary. ROS documentation was reviewed and negative unless otherwise stated in the HPI. My history, exam, assessment and plan are as follows: Critical care time spent excluding separately billable procedures is 36 minutes. Sedated, intubated, pupils symmetric Heart RRR Lungs clear symmetric Abd soft CXR: ETT and central lines in position Severe multivessel CAD 07/25 s/p CABG x 3 Post op vent management Anemia, thrombocytopenia expected post op On propofol sedation, mech vent Wean sedation as tolerated for SBT and extubation later today Transfuse prn Funky [id number] Note* Op Note - Brooklynn Martinez DO - 07/25/2024 7:29 AM EST Cardiothoracic Surgery Operative Report Date: 07/25/24 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 Fredi Buchanan Heel Cementer Machine: Jazmyn Rodgers Total IV fluids: See anesthesia and perfusion record Blood Transfusion?: None Drains/wires: Chest tube x 2; ventricular pacing wires Complications: None INDICATIONS FOR SURGERY: This is a 69 year-old male who was seen as an outpatient for coronary disease. Left heart catheter revealed multivessel disease. The above procedure was offered to him. The risks benefits and alternatives were explained in detail and he agreed to proceed. Findings: The mammary artery is a good conduit with excellent flows. The saphenous vein is about 4 mm and adequate for use as a conduit. The left anterior descending is stented all the way down to the distal portion which is the only place suitable for placement of the bypass. It is still very calcified and thickened there. A small endarterectomy was required. It is about 1 mm at the point of bypass. The patient was weaned from cardiopulmonary bypass with no inotropic support needed. Myocardial function is preserved on ZARI. Cardiopulmonary bypass time 111 minutes. Aortic cross-clamp time 96 minutes. DESCRIPTION OF PROCEDURE: The patient was brought to the operative suite and placed in supine position on the operative table. General anesthesia was administered. All appropriate lines and tubes were placed. His torso and lower extremities were then prepped and draped in the usual sterile fashion. A two team approach was taken. The dental office assistant team performed all aspects of the vein harvest. He also assisted with the entireprocedure while on cardiopulmonary bypass and with the closure. A small incision was made in the atthe medial left knee. The greater saphenous vein was identified and then harvested from the left thigh completely and endoscopically. It was prepared on the back table. The incision was closed in layers with running absorbable sutures. Concomitantly a standard median sternotomy incision was made. The sternum was divided in the midline and hemostasis was achieved. A mammary retractor was then placed. The left pleural space was opened and the left internal mammary artery was taken down with a comb ination of blunt dissection electrocautery and hemoclips. Full dose heparin was then given. The mammary was ligated distally and divided. It was prepared on the field and had excellent flows. A standard retractor was then placed. The thymus was divided in the midline and the pericardium was opened.I then cannulated for bypass. A double pursestring suture was placed into the ascending aorta. An 8mm arterial cannula was placed through this and secured. Another pursestring was placed in the right atrial appendage. A dual stage venous cannula was placed through this and secured. An antegrade cardioplegia cannula was placed into the ascending aorta. We then went on total cardiopulmonary bypass. There was excellent decompression of all 4 cardiac chambers. Each of the distal targets were examined and found to be as described above. An aortic cross-clamp was then placed. Cold blood antegrade followed by retrograde cardioplegia wasadministered with excellent diastolic arrest of the heart. Cardioplegia was readministered periodically throughout the procedure as indicated. The posterior descending artery was then identified. An arteriotomy was made and an end to side saphenous vein to the posterior descending anastomosis was created with a running Prolene stitch. It was hemostatic once complete and had good outflows. The diagonal branch was then identified. An arteriotomy was made in an end-to-side saphenous vein to diagonal anastomosis was created with a running Prolene stitch. It was hemostatic once complete and had good outflows. The the patient was rewarmed. The left anterior descending was then identified in the very distal portion. Everything before this was stented. An arteriotomy was made but the lumen was not well delineated. A small endarterectomy was required to remove the circumferential stenosis in thearea. A long end to side GREY to LAD anastomosis was created with a running Prolene stitch. It was hemostatic once complete and had good outflow to the apex. A right sided aortotomy was made. The right sided vein graft was anastomosed here in an end to side fashion. A shot of warm straight blood was then administered through the antegrade cannula. The cannula was removed and the diagonal graft was anastomosed here in an end to side fashion. Each of the vein grafts were then clamped. The aortic cross-clamp was then removed. The vein grafts were de- aired with a 30-gauge needle and then opened up. The retrograde cannula was removed as well and the site was secured. Each of the distal anastomoses were examined and found to be hemostatic. Temporary ventricular pacing wires were placed. There was spontaneous return of cardiac activity. I then began to wean from bypass. The heart was volume loaded and began to eject. The pump flows were gradually reduced and the lungs were ventilated. I was eventually able to wean completely off bypass with no inotropic support. Once off bypass the venous c annula was removed. ZARI showed there to be preserved myocardial function with no new wall motion abnormalities. Protamine was tested. Once half the protamine was given the arterial cannula was removed and the site was secured. Hemostasis was assured at each of the surgical sites. Chest tubes were placed in the left chest and the mediastinum. I then turned attention to closure. The sternum was approximated in the midline with heavy steel wires in a [id number] fashion. The soft tissues were closed in layers with running absorbable sutures. The procedure was then terminated. At the end of the procedure all thesponge and sharp counts were correct. Disposition: The patient having tolerated the procedure well was taken in stable condition to the [facility]. He will be monitored closely as to outputs and hemodynamics. Lico Martinez DO [facility]othoracic Surgery [id number] Note* Op Note - Brooklynn Martinez DO - 07/25/2024 7:29 AM EST Cardiothoracic Surgery Operative Report Date: 07/25/24 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 Fredi Buchanan Heel Cementer Machine: Jazmyn Rodgers Total IV fluids: See anesthesia and perfusion record Blood Transfusion?: None Drains/wires: Chest tube x 2; ventricular pacing wires Complications: None INDICATIONS FOR SURGERY: This is a 69 year-old male who was seen as an outpatient for coronary disease. Left heart catheter revealed multivessel disease. The above procedure was offered to him. The risks benefits and alternatives were explained in detail and he agreed to proceed. Findings: The mammary artery is a good conduit with excellent flows. The saphenous vein is about 4 mm and adequate for use as a conduit. The left anterior descending is stented all the way down to the distal portion which is the only place suitable for placement of the bypass. It is still very calcified and thickened there. A small endarterectomy was required. It is about 1 mm at the point of bypass. The patient was weaned from cardiopulmonary bypass with no inotropic support needed. Myocardial function is preserved on ZARI. Cardiopulmonary bypass time 111 minutes. Aortic cross-clamp time 96 minutes. DESCRIPTION OF PROCEDURE: The patient was brought to the operative suite and placed in supine position on the operative table. General anesthesia was administered. All appropriate lines and tubes were placed. His torso and lower extremities were then prepped and draped in the usual sterile fashion. A two team approach was taken. The dental office assistant team performed all aspects of the vein harvest. He also assisted with the entireprocedure while on cardiopulmonary bypass and with the closure. A small incision was made in the atthe medial left knee. The greater saphenous vein was identified and then harvested from the left thigh completely and endoscopically. It was prepared on the back table. The incision was closed in layers with running absorbable sutures. Concomitantly a standard median sternotomy incision was made. The sternum was divided in the midline and hemostasis was achieved. A mammary retractor was then placed. The left pleural space was opened and the left internal mammary artery was taken down with a comb ination of blunt dissection electrocautery and hemoclips. Full dose heparin was then given. The mammary was ligated distally and divided. It was prepared on the field and had excellent flows. A standard retractor was then placed. The thymus was divided in the midline and the pericardium was opened.I then cannulated for bypass. A double pursestring suture was placed into the ascending aorta. An 8mm arterial cannula was placed through this and secured. Another pursestring was placed in the right atrial appendage. A dual stage venous cannula was placed through this and secured. An antegrade cardioplegia cannula was placed into the ascending aorta. We then went on total cardiopulmonary bypass. There was excellent decompression of all 4 cardiac chambers. Each of the distal targets were examined and found to be as described above. An aortic cross-clamp was then placed. Cold blood antegrade followed by retrograde cardioplegia wasadministered with excellent diastolic arrest of the heart. Cardioplegia was readministered periodically throughout the procedure as indicated. The posterior descending artery was then identified. An arteriotomy was made and an end to side saphenous vein to the posterior descending anastomosis was created with a running Prolene stitch. It was hemostatic once complete and had good outflows. The diagonal branch was then identified. An arteriotomy was made in an end-to-side saphenous vein to diagonal anastomosis was created with a running Prolene stitch. It was hemostatic once complete and had good outflows. The the patient was rewarmed. The left anterior descending was then identified in the very distal portion. Everything before this was stented. An arteriotomy was made but the lumen was not well delineated. A small endarterectomy was required to remove the circumferential stenosis in thearea. A long end to side GREY to LAD anastomosis was created with a running Prolene stitch. It was hemostatic once complete and had good outflow to the apex. A right sided aortotomy was made. The right sided vein graft was anastomosed here in an end to side fashion. A shot of warm straight blood was then administered through the antegrade cannula. The cannula was removed and the diagonal graft was anastomosed here in an end to side fashion. Each of the vein grafts were then clamped. The aortic cross-clamp was then removed. The vein grafts were de- aired with a 30-gauge needle and then opened up. The retrograde cannula was removed as well and the site was secured. Each of the distal anastomoses were examined and found to be hemostatic. Temporary ventricular pacing wires were placed. There was spontaneous return of cardiac activity. I then began to wean from bypass. The heart was volume loaded and began to eject. The pump flows were gradually reduced and the lungs were ventilated. I was eventually able to wean completely off bypass with no inotropic support. Once off bypass the venous c annula was removed. ZARI showed there to be preserved myocardial function with no new wall motion abnormalities. Protamine was tested. Once half the protamine was given the arterial cannula was removed and the site was secured. Hemostasis was assured at each of the surgical sites. Chest tubes were placed in the left chest and the mediastinum. I then turned attention to closure. The sternum was approximated in the midline with heavy steel wires in a [id number] fashion. The soft tissues were closed in layers with running absorbable sutures. The procedure was then terminated. At the end of the procedure all thesponge and sharp counts were correct. Disposition: The patient having tolerated the procedure well was taken in stable condition to the [facility]. He will be monitored closely as to outputs and hemodynamics. Lico Martinez DO [facility] Cardiothoracic Surgery [facility]12-26-2024 Attending History and physical note* Brooklynn Martinez DO - 07/25/2024 7:00 AM EST H&P reviewed. The patient was examined and there are no changes to the H&P. Will proceed with CABG today. Lico Martinez DO [facility] Cardiothoracic Surgery Source Note - Brooklynn Martinez DO - 07/10/2024 12:30 PM EST Images from the original note were not included. [facility] CARDIOVASCULAR & THORACIC SURGERY [address] [facility] [address] Dept: [phone] Dept Loc: [phone] Visit type: New Reason for Visit: CAD Assessment: 1. 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 Angina, class III (CMS/HCC) (HCC) 3. Essential hypertension 4. Malignant neoplasm of right lung, unspecified part of lung (HCC) Recommendations: He will undergo CABG as the best revascularization option. This was explained to him in detail. Therisks were outlined in terms of the STS risk calculator. All questions were answered. We will need to obtain his echocardiogram or repeat the study prior to his operation. Other preoperative testing has been ordered. He is ready to proceed. At least 2/3 of his LAD has been stented which will make fo r a very distal bypass graft. STS Risk Calculator Procedure Type: Isolated CABG Perioperative Outcome Estimate % Operative Mortality 1% Morbidity & Mortality 4.45% Stroke 0.675% Renal Failure 0.668% Reoperation 2.35% Prolonged Ventilation 2.08% Deep Sternal Wound Infection 0.11% Long Hospital Stay (>14 days) 1.82% Short Hospital Stay (<6 days)* 62.4% History of Present Illness Sharonda Flores is a 68 y.o. male referred by Dr. Tineo for CABG. Per note, pt with PMHx CAD (s/p several PCI, most recently 2011 - LAD, LCx, distal RCA with known PHYSICIAN NON INVASIVE CARDIOLOGIST D2), preserved LVEF (65%), HTN, HLD, PAD (follows with vascular at [facility]), prior tobacco use, pulmonary nodules, adenocarcinoma s/p RUL lobectomy 01/2024 (follows with pulmonology), and psoriasis. Pt had presented to [facility] ED with a sharp pain in the center of his chest with left shoulder ache. He had associated diaphoresis and nausea. EKG was normal. Chest xray was negative. Troponin was WNL. Pt was discharged and advised to follow up with Cardiology. Pt reported left shoulder pain for the past month. A stress echocardiogram was ordered and completed on 06/25/24 which was abnormal. He then underwent a heart catheterization on 07/08/24 which demonstrated multivessel CAD. Pt is a former smoker. Pt is here now for an evaluation. He describes anginal pain that starts in his left shoulder and radiates down his left arm. It comes with exertion and sometimes without. He was recently given isosorbide which has helped his symptoms considerably. He denies shortness of breath with it. He quit smoking about 12 years ago and is not diabetic. He lives alone and can take care of all his daily activities. About 3 months ago he had a right VATS lobectomy for lung cancer at [facility]. He has recovered well since then. Past Medical History Past Medical History: Diagnosis Date Arrhythmia v-fib/ arrest CAD (coronary artery disease) Congenital heart disease Hyperlipidemia Hypertension [place], old Sleep apnea Past Surgical History Past Surgical History: Procedure Laterality Date CARDIAC CATHETERIZATION N/A 07/05/2024 Performed by Becky Tineo MD at [facility] Cardiac Cath/EP Lab CARDIAC PROCEDURE 03/15/2012 BMS mid dis RCA CARDIAC PROCEDURE 03/2012 REBECCA to mis dist LAD CARDIAC PROCEDURE 05/2012 REBECCA to prox LCx CORONARY ANGIOPLASTY 05/2012 circ, distal RCA, & LAD Family History Family History Problem Relation Name Age of Onset Heart disease Father Thad No Known Problems Mother Cancer Maternal Grandfather Mother Social History Marital status: Work history: Retired status: Never Served Social History Tobacco Use Smoking status: Former Current packs/day: 0.00 Average packs/day: 2.0 packs/day for 56.1 years (112.2 ttl pk-yrs) Types: Cigarettes Start date: 1955 Quit date: 08/17/2011 Years since quittin.9 Smokeless tobacco: Former Quit date: 1970 Tobacco comments: Quit smoking: currently occ cigar Substance Use Topics Alcohol use: No Drug use: No Allergies Allergies Allergen Reactions Pcn [Penicillins] Rash Medications Current Outpatient Medications: aspirin 81 MG EC tablet, Take 81 mg by mouth daily., Disp: , Rfl: atorvastatin (Lipitor) 80 MG tablet, Take 1 tablet (80 mg) by mouth every evening., Disp: 90 tablet, Rfl: 3 carvedilol (Coreg) 6.25 MG tablet, Take 1 tablet (6.25 mg) by mouth 2 times daily., Disp: 180 tablet, Rfl: 3 ezetimibe (Zetia) 10 MG tablet, Take 10 mg by mouth in the morning., Disp: , Rfl: isosorbide mononitrate ER (Imdur) 30 MG 24 hr tablet, Take 1 tablet (30 mg) by mouth daily. Do not crush or chew., Disp: 30 tablet, Rfl: 11 nitroglycerin (Nitrostat) 0.4 MG SL tablet, DISSOLVE 1 TABLET UNDER THE TONGUE EVERY 5 MINUTES NEEDED., Disp: , Rfl: Review of Systems Review of Systems Constitutional: Positive for diaphoresis (on exertion). Respiratory: Positive for shortness of breath (on exertion). Cardiovascular: Positive for chest pain (intermittent chest pain and shoulder pain). All other systems reviewed and are negative. Physical Exam Vitals: BP 118/74 (BP Location: Left arm, Patient Position: Sitting, BP Cuff Size: Large adult) Pulse 71 Ht 5' 5 (1.651 m) Wt 160 lb (72.6 kg) BMI 26.63 kg/m Constitutional: General: Not in acute distress. Appearance: Normal appearance. Not toxic-appearing. Ear, nose, mouth: Bilateral external ear and nose normal. Nose: Nose normal. Mouth: Appearance normal, no bleeding, moist mucus membranes Eyes: General: No scleral icterus. No discharge from bilateral eyes Extraocular Movements: Extraocular movements intact. Pupils equal and reactive bilaterally Cardiovascular: Heart: Regular rhythm. Normal heart sounds. Vascular: No carotid bruit. Edema: no edema in bilateral lower extremities Pulmonary: Effort: Pulmonary effort is normal. No respiratory distress. Breath sounds: Normal breath sounds. No wheezing. Chest wall: No tenderness. Abdominal: Appearance: Not distended Palpations: There is no abdominal tenderness, no guarding. Musculoskeletal: Bilateral upper and lower extremities: Normal range of motion, no deformity Head: Normocephalic and atraumatic. Neck: Normal range of motion and neck supple. No muscular tenderness. Lymphadenopathy: Cervical: No cervical adenopathy. Skin: General: Skin is warm and dry. Coloration: Skin is not jaundiced. Neurological: General: No focal deficit present. Cranial Nerves: No obvious cranial nerve deficit. Psychiatric: Mood and Affect: Mood normal. Thought Content: Thought content normal. Patient has good judgement and insight Mental Status: Alert and oriented to place, person, and time. Labs SODIUM Date/Time Value Ref Range Status 09/30/2020 01:30 PM 138 135 - 145 mmol/L Final 10/21/2019 12:00 AM 142 mmol/L Final POTASSIUM Date/Time Value Ref Range Status 09/30/2020 01:30 PM 4.9 3.5 - 5.1 mmol/L Final 10/21/2019 12:00 AM 4.4 mmol/L Final CREATININE Date/Time Value Ref Range Status 09/30/2020 01:30 PM 0.81 0.52 - 1.25 mg/dL Final 10/21/2019 12:00 AM 0.94 Final Imaging Heart Catheterization 07/08/24 Findings: Coronary Anatomy: Left main with short with minimal disease LAD with a PHYSICIAN NON INVASIVE CARDIOLOGIST of the proximal stent, the distal vessel fills by faint collaterals, likely from D1,and fills back to the stent partially to the mid vessel D1 likely has a severe ostial lesion of 70%, is takes off just before the PHYSICIAN NON INVASIVE CARDIOLOGIST Circumflex has a patent proximal stent OM1 has a moderate 50% lesion RCA with a severe 95% proximal lesion, the distal stent has a mild 30% ISR. Proximal RCA lesion is likely the culprit for current symptoms. Left Heart Left Ventricle Left ventriculogram was not performed.LV systolic pressure is normal. LV end diastolic pressure is elevated. Aortic Valve There is no aortic valve stenosis. Coronary Diagram Diagnostic Dominance: Right Stress Echocardiogram 06/25/24 Interpretation Summary Study Impression: Abnormal stress echocardiogram. Findings are consistent with mild inferoseptal ischemia. This occured at submaximal heart rate reducing sensitivity for more extensive ischemia. Stress ECG: Conclusion: The stress test is non-diagnostic due to failure to achieve target heart rate. There were minor ST depressions during recovery. Stress Test: A Jude protocol stress test was performed. Hemodynamics are inadequate for diagnosis.Blood pressure demonstrated a blunted response and heart rate demonstrated a blunted response to stress. The patient's heart rate recovery was normal. Left Ventricle: Left ventricle is smaller than normal. Normal wall thickness. Normal left ventricular systolic function. EF by 2D Simpsons Biplane is 67%. Normal wall motion. Right Ventricle: Right ventricle size is normal. Normal systolic function. TAPSE is 2.1 cm. Carotid Ultrasound 06/14/24 CT Chest 12/13/23 RESULT: Limitations: None. Lines, tubes, and devices: None. Lung parenchyma and airways: The central airways are patent. A few stable right lung nodules identified. For example, there is a 10 mm nodule in the posterior right upper lobe, series 6 image 53. More medially in the right upper lobe, seen is a 4 mm nodule, series 6 image 147. A 2.5 mm nodule is also noted in the right upper lobe, series 6 image 131. Similar groundglass opacities demonstrated in the posterior right upper lobe, series 6 images 139-162. Also seen are scattered tiny nodules in the bilateral lungs. No definite new nodules identified. No consolidations. There are large pericardial fat pads. Pleural space: No pleural effusion. No pleural thickening. Lower neck, lymph nodes, and mediastinum: The imaged thyroid gland is normal. No lymphadenopathy in the supraclavicular, axillary, mediastinal, or hilar regions. Heart, pericardium, and thoracic vessels: The thoracic aorta and main pulmonary artery are normal in caliber. There are atherosclerotic calcifications in the thoracic aorta. The cardiac chambers are normal in size. Linear and punctate coronary artery atherosclerotic calcifications are noted, although the study is not optimized for coronary assessment. No pericardial effusion or thickening. Bones and soft tissues: No destructive bone lesion. Chest wall soft tissue is unremarkable. Upper abdomen: No abnormality in the imaged upper abdomen. IMPRESSION: Stable right lung nodules and groundglass opacities. No definite new nodules identified. Patient Care Team: PCP: Tima Tello MD Cardiology: MD Lico Mccollum, [facility] Cardiothoracic Surgery Disclaimer INFORMED CONSENT:The nature and purpose of the proposed treatment or procedure have been discussed.The risks and benefits of the proposed treatment or procedures have been reviewed. Alternatives have been reviewed in addition to the risks and benefits of not receiving treatments or undergoing procedures. Pursuant to this discussion, the patient agrees to undergo the proposed treatment or procedure. Captured images seen in this note from are not a substitute for a comprehensive interpretation of the entire data set as reflected by the interpreting physician with regard to radiology, echocardiography, and other diagnostic images. This note may have been dictated using [employer] Practice Edition 2.6 and/or [employer] Voice Recognition Feature. The document was proofread, however unrecognized voice recognition retail special event associate errors may be present. [facility] [employer] Work Phone: [phone] 345-663412-26-2024 NoteH&P reviewed. The patient was examined and there are no changes to the H&P. Will proceed with CABG today. Lico Martinez DO [facility] History and physical note* Brooklynn Martinez DO - 07/25/2024 7:00 AM EST H&P reviewed. The patient was examined and there are no changes to the H&P. Will proceed with CABG today. Lico Martinez DO FACS Cardiothoracic Surgery Source Note - Brooklynn Martinez DO - 07/10/2024 12:30 PM EST Images from the original note were not included. [facility] CARDIOVASCULAR & THORACIC SURGERY [address] [facility] [address] Dept: [phone] Dept Loc: [phone] Visit type: New Reason for Visit: CAD Assessment: 1. 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 Angina, class III (CMS/HCC) (HCC) 3. Essential hypertension 4. Malignant neoplasm of right lung, unspecified part of lung (HCC) Recommendations: He will undergo CABG as the best revascularization option. This was explained to him in detail. Therisks were outlined in terms of the STS risk calculator. All questions were answered. We will need to obtain his echocardiogram or repeat the study prior to his operation. Other preoperative testing has been ordered. He is ready to proceed. At least 2/3 of his LAD has been stented which will make fo r a very distal bypass graft. STS Risk Calculator Procedure Type: Isolated CABG Perioperative Outcome Estimate % Operative Mortality 1% Morbidity & Mortality 4.45% Stroke 0.675% Renal Failure 0.668% Reoperation 2.35% Prolonged Ventilation 2.08% Deep Sternal Wound Infection 0.11% Long Hospital Stay (>14 days) 1.82% Short Hospital Stay (<6 days)* 62.4% History of Present Illness Sharonda Flores is a 68 y.o. male referred by Dr. Tineo for CABG. Per note, pt with PMHx CAD (s/p several PCI, most recently 2011 - LAD, LCx, distal RCA with known PHYSICIAN NON INVASIVE CARDIOLOGIST D2), preserved LVEF (65%), HTN, HLD, PAD (follows with vascular at [facility]), prior tobacco use, pulmonary nodules, adenocarcinoma s/p RUL lobectomy 01/2024 (follows with pulmonology), and psoriasis. Pt had presented to [facility] ED with a sharp pain in the center of his chest with left shoulder ache. He had associated diaphoresis and nausea. EKG was normal. Chest xray was negative. Troponin was WNL. Pt was discharged and advised to follow up with Cardiology. Pt reported left shoulder pain for the past month. A stress echocardiogram was ordered and completed on 06/25/24 which was abnormal. He then underwent a heart catheterization on 07/08/24 which demonstrated multivessel CAD. Pt is a former smoker. Pt is here now for an evaluation. He describes anginal pain that starts in his left shoulder and radiates down his left arm. It comes with exertion and sometimes without. He was recently given isosorbide which has helped his symptoms considerably. He denies shortness of breath with it. He quit smoking about 12 years ago and is not diabetic. He lives alone and can take care of all his daily activities. About 3 months ago he had a right VATS lobectomy for lung cancer at [facility]. He has recovered well since then. Past Medical History Past Medical History: Diagnosis Date Arrhythmia v-fib/ arrest CAD (coronary artery disease) Congenital heart disease Hyperlipidemia Hypertension [place], old Sleep apnea Past Surgical History Past Surgical History: Procedure Laterality Date CARDIAC CATHETERIZATION N/A 07/05/2024 Performed by Becky Tineo MD at [facility] Cardiac Cath/EP Lab CARDIAC PROCEDURE 03/15/2012 BMS mid dis RCA CARDIAC PROCEDURE 03/2012 REBECCA to mis dist LAD CARDIAC PROCEDURE 05/2012 REBECCA to prox LCx CORONARY ANGIOPLASTY 05/2012 circ, distal RCA, & LAD Family History Family History Problem Relation Name Age of Onset Heart disease Father Thad No Known Problems Mother Cancer Maternal Grandfather Mother Social History Marital status: Work history: Retired [place] status: Never Served Social History Tobacco Use Smoking status: Former Current packs/day: 0.00 Average packs/day: 2.0 packs/day for 56.1 years (112.2 ttl pk-yrs) Types: Cigarettes Start date: 1955 Quit date: 08/17/2011 Years since quittin.9 Smokeless tobacco: Former Quit date: 1970 Tobacco comments: Quit smoking: currently occ cigar Substance Use Topics Alcohol use: No Drug use: No Allergies Allergies Allergen Reactions Pcn [Penicillins] Rash Medications Current Outpatient Medications: aspirin 81 MG EC tablet, Take 81 mg by mouth daily., Disp: , Rfl: atorvastatin (Lipitor) 80 MG tablet, Take 1 tablet (80 mg) by mouth every evening., Disp: 90 tablet, Rfl: 3 carvedilol (Coreg) 6.25 MG tablet, Take 1 tablet (6.25 mg) by mouth 2 times daily., Disp: 180 tablet, Rfl: 3 ezetimibe (Zetia) 10 MG tablet, Take 10 mg by mouth in the morning., Disp: , Rfl: isosorbide mononitrate ER (Imdur) 30 MG 24 hr tablet, Take 1 tablet (30 mg) by mouth daily. Do not crush or chew., Disp: 30 tablet, Rfl: 11 nitroglycerin (Nitrostat) 0.4 MG SL tablet, DISSOLVE 1 TABLET UNDER THE TONGUE EVERY 5 MINUTES NEEDED., Disp: , Rfl: Review of Systems Review of Systems Constitutional: Positive for diaphoresis (on exertion). Respiratory: Positive for shortness of breath (on exertion). Cardiovascular: Positive for chest pain (intermittent chest pain and shoulder pain). All other systems reviewed and are negative. Physical Exam Vitals: BP 118/74 (BP Location: Left arm, Patient Position: Sitting, BP Cuff Size: Large adult) Pulse 71 Ht 5' 5 (1.651 m) Wt 160 lb (72.6 kg) BMI 26.63 kg/m Constitutional: General: Not in acute distress. Appearance: Normal appearance. Not toxic-appearing. Ear, nose, mouth: Bilateral external ear and nose normal. Nose: Nose normal. Mouth: Appearance normal, no bleeding, moist mucus membranes Eyes: General: No scleral icterus. No discharge from bilateral eyes Extraocular Movements: Extraocular movements intact. Pupils equal and reactive bilaterally Cardiovascular: Heart: Regular rhythm. Normal heart sounds. Vascular: No carotid bruit. Edema: no edema in bilateral lower extremities Pulmonary: Effort: Pulmonary effort is normal. No respiratory distress. Breath sounds: Normal breath sounds. No wheezing. Chest wall: No tenderness. Abdominal: Appearance: Not distended Palpations: There is no abdominal tenderness, no guarding. Musculoskeletal: Bilateral upper and lower extremities: Normal range of motion, no deformity Head: Normocephalic and atraumatic. Neck: Normal range of motion and neck supple. No muscular tenderness. Lymphadenopathy: Cervical: No cervical adenopathy. Skin: General: Skin is warm and dry. Coloration: Skin is not jaundiced. Neurological: General: No focal deficit present. Cranial Nerves: No obvious cranial nerve deficit. Psychiatric: Mood and Affect: Mood normal. Thought Content: Thought content normal. Patient has good judgement and insight Mental Status: Alert and oriented to place, person, and time. Labs SODIUM Date/Time Value Ref Range Status 09/30/2020 01:30 PM 138 135 - 145 mmol/L Final 10/21/2019 12:00 AM 142 mmol/L Final POTASSIUM Date/Time Value Ref Range Status 09/30/2020 01:30 PM 4.9 3.5 - 5.1 mmol/L Final 10/21/2019 12:00 AM 4.4 mmol/L Final CREATININE Date/Time Value Ref Range Status 09/30/2020 01:30 PM 0.81 0.52 - 1.25 mg/dL Final 10/21/2019 12:00 AM 0.94 Final Imaging Heart Catheterization 07/08/24 Findings: Coronary Anatomy: Left main with short with minimal disease LAD with a PHYSICIAN NON INVASIVE CARDIOLOGIST of the proximal stent, the distal vessel fills by faint collaterals, likely from D1,and fills back to the stent partially to the mid vessel D1 likely has a severe ostial lesion of 70%, is takes off just before the PHYSICIAN NON INVASIVE CARDIOLOGIST Circumflex has a patent proximal stent OM1 has a moderate 50% lesion RCA with a severe 95% proximal lesion, the distal stent has a mild 30% ISR. Proximal RCA lesion is likely the culprit for current symptoms. Left Heart Left Ventricle Left ventriculogram was not performed.LV systolic pressure is normal. LV end diastolic pressure is elevated. Aortic Valve There is no aortic valve stenosis. Coronary Diagram Diagnostic Dominance: Right Stress Echocardiogram 06/25/24 Interpretation Summary Study Impression: Abnormal stress echocardiogram. Findings are consistent with mild inferoseptal ischemia. This occured at submaximal heart rate reducing sensitivity for more extensive ischemia. Stress ECG: Conclusion: The stress test is non-diagnostic due to failure to achieve target heart rate. There were minor ST depressions during recovery. Stress Test: A Jude protocol stress test was performed. Hemodynamics are inadequate for diagnosis.Blood pressure demonstrated a blunted response and heart rate demonstrated a blunted response to stress. The patient's heart rate recovery was normal. Left Ventricle: Left ventricle is smaller than normal. Normal wall thickness. Normal left ventricular systolic function. EF by 2D Simpsons Biplane is 67%. Normal wall motion. Right Ventricle: Right ventricle size is normal. Normal systolic function. TAPSE is 2.1 cm. Carotid Ultrasound 06/14/24 CT Chest 12/13/23 RESULT: Limitations: None. Lines, tubes, and devices: None. Lung parenchyma and airways: The central airways are patent. A few stable right lung nodules identified. For example, there is a 10 mm nodule in the posterior right upper lobe, series 6 image 53. More medially in the right upper lobe, seen is a 4 mm nodule, series 6 image 147. A 2.5 mm nodule is also noted in the right upper lobe, series 6 image 131. Similar groundglass opacities demonstrated in the posterior right upper lobe, series 6 images 139-162. Also seen are scattered tiny nodules in the bilateral lungs. No definite new nodules identified. No consolidations. There are large pericardial fat pads. Pleural space: No pleural effusion. No pleural thickening. Lower neck, lymph nodes, and mediastinum: The imaged thyroid gland is normal. No lymphadenopathy in the supraclavicular, axillary, mediastinal, or hilar regions. Heart, pericardium, and thoracic vessels: The thoracic aorta and main pulmonary artery are normal in caliber. There are atherosclerotic calcifications in the thoracic aorta. The cardiac chambers are normal in size. Linear and punctate coronary artery atherosclerotic calcifications are noted, although the study is not optimized for coronary assessment. No pericardial effusion or thickening. Bones and soft tissues: No destructive bone lesion. Chest wall soft tissue is unremarkable. Upper abdomen: No abnormality in the imaged upper abdomen. IMPRESSION: Stable right lung nodules and groundglass opacities. No definite new nodules identified. Patient Care Team: PCP: Tima Tello MD Cardiology: MD Lico Mccollum DO [facility] Cardiothoracic Surgery Disclaimer INFORMED CONSENT:The nature and purpose of the proposed treatment or procedure have been discussed.The risks and benefits of the proposed treatment or procedures have been reviewed. Alternatives have been reviewed in addition to the risks and benefits of not receiving treatments or undergoing procedures. Pursuant to this discussion, the patient agrees to undergo the proposed treatment or procedure. Captured images seen in this note from are not a substitute for a comprehensive interpretation of the entire data set as reflected by the interpreting physician with regard to radiology, echocardiography, and other diagnostic images. This note may have been dictated using comment.com Practice Edition 2.6 and/or [employer] Voice Recognition Feature. The document was proofread, however unrecognized voice recognition retail special event associate errors may be present. documented in this [facility]12-19-2024 Anesthesiology Preoperative evaluation and management note* Anesthesia Preprocedure Evaluation - Dewayne Rodriges APRN - SALES ATTENDANT - 07/18/2024 1:26 PM EST Patient: Sharonda Flores Procedure Information Date/Time: 07/25/24 0730 Procedures: CORONARY ARTERY BYPASS GRAFT (Chest) - 7:30 am, 5 hours TRANSESOPHAGEAL ECHOCARDIOGRAM Location: [facility] OR [address] [place] [address] Operating Room Surgeons: Brooklynn Martinez DO Relevant Problems Cardio (+) Coronary artery disease involving chilkoot coronary artery of chilkoot heart without angina pectoris (+) 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) (+) Hyperlipidemia Past Medical History: Past Medical History: No date: Arrhythmia Comment: v-fib/ arrest No date: CAD (coronary artery disease) No date: Cancer (CMS/HCC) (HCC) Comment: LUNG UPPER RIGHT - SURGERY FOR REMOVAL 02/09/2024 No date: Congenital heart disease No date: Hyperlipidemia No date: Hypertension No date: [place], old Comment: STENTS PLACE No date: Sleep apnea Comment: NO CPAP WORN Past Surgical History: Past Surgical History: No date: ADENOIDECTOMY No date: APPENDECTOMY 07/05/2024: CARDIAC CATHETERIZATION; N/A Comment: Performed by Becky Tineo MD at [facility] Cardiac Cath/EP Lab 03/15/2012: CARDIAC PROCEDURE Comment: BMS mid dis RCA 03/2012: CARDIAC PROCEDURE Comment: REBECCA to mis dist LAD 05/2012: CARDIAC PROCEDURE Comment: REBECCA to prox LCx No date: COLONOSCOPY 05/2012: CORONARY ANGIOPLASTY Comment: circ, distal RCA, & LAD No date: TONSILLECTOMY Social History: TOBACCO: reports that he quit smoking about 12 years ago. His smoking use included cigarettes. He started smoking about 69 years ago. He has a 112.2 pack- year smoking history. He quit smokeless tobacco use about 54 years ago. ETOH: reports no history of alcohol use. Social History Substance and Sexual Activity Drug Use No Family History: Family History Problem Relation Name Age of Onset Heart disease Father Thad No Known Problems Mother Cancer Maternal Grandfather Mother Screening: unknown Clinical information reviewed: Tobacco Allergies Meds Med Hx Surg Hx Fam Hx Soc Hx Physical Exam Airway Mallampati: I TM distance: >3 FB Neck ROM: full Mouth Open: normalendotracheal tube not in place Cardiovascular Dental (+) Upper Partials, edentulous Comments: UPPER PARTIALS AND EDENTULOUS BOTTOM ; NOTHING COMES OUT Pulmonary Abdominal Anesthesia Plan patient is NPO appropriate Any family history or previous problems with anesthesia no ASA 4 general Any family history or previous problems with anesthesia no The patient is not a current smoker. Anesthetic plan and risks discussed with patient. TRAM Screening STOP-Bang Total Score: 4 Labs: No results found for: WBC, HGB, HCT, MCV, PLT Lab Results Component Value Date NA 138 09/30/2020 K 4.9 09/30/2020 CL 105 09/30/2020 CO2 30 09/30/2020 BUN 15 09/30/2020 CREATININE 0.81 09/30/2020 GLUCOSE 77 09/30/2020 CALCIUM 9.4 09/30/2020 PROT 7.3 09/30/2020 ALKPHOS 63 09/30/2020 AST 29 09/30/2020 No echocardiogram results found for the past 14 days 06/11/24 ECG 12-LEAD 07/06/2024 9:28 AM (Final) Narrative Sinus Rhythm WITHIN NORMAL LIMITS Signed by: Becky Tineo on 07/06/2024 9:28 AM Equipment Requests: Additional Equipment Requests Funky [id number] NotePatient: Sharonda Flores Procedure Information Date/Time: 07/25/24729 Procedures: CORONARY ARTERY BYPASS GRAFT (Chest) - 7:30 am, 5 hours TRANSESOPHAGEAL ECHOCARDIOGRAM Location: [address] Operating Room Surgeons: Brooklynn Martinez, DO Relevant Problems Cardio (+) Coronary artery disease involving chilkoot coronary artery of chilkoot heart without angina pectoris (+) 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) (+) Hyperlipidemia Past Medical History: Past Medical History: No date: Arrhythmia Comment: v-fib/ arrest No date: CAD (coronary artery disease) No date: Cancer (CMS/HCC) (HCC) Comment: LUNG UPPER RIGHT - SURGERY FOR REMOVAL 02/09/2024 No date: Congenital heart disease No date: Hyperlipidemia No date: Hypertension No date: [place], old Comment: ST[address]ACE No date: Sleep apnea Comment: NO CPAP WORN Past Surgical History: Past Surgical History: No date: ADENOIDECTOMY No date: APPENDECTOMY 07/05/2024: CARDIAC CATHETERIZATION; N/A Comment: Performed by Becky Tineo MD at [facility] Cardiac Cath/EP Lab 03/15/2012: CARDIAC PROCEDURE Comment: BMS mid dis RCA 03/2012: CARDIAC PROCEDURE Comment: REBECCA to mis dist LAD 05/2012: CARDIAC PROCEDURE Comment: REBECCA to prox LCx No date: COLONOSCOPY 05/2012: CORONARY ANGIOPLASTY Comment: circ, distal RCA, & LAD No date: TONSILLECTOMY Social History: TOBACCO: reports that he quit smoking about 12 years ago. His smoking use included cigarettes. He started smoking about 69 years ago. He has a 112.2 pack-year smoking history. He quit smokeless tobacco use about 54 years ago. ETOH: reports no history of alcohol use. Social History Substance and Sexual Activity Drug Use No Family History: Family History Problem Relation Name Age of Onset Heart disease Father Thad No Known Problems Mother Cancer Maternal Grandfather Mother Screening: unknown Clinical information reviewed: Tobacco Allergies Meds Med Hx Surg Hx Fam Hx Soc Hx Physical Exam Airway Mallampati: I TM distance: >3 FB Neck ROM: full Mouth Open: normalendotracheal tube not in place Cardiovascular Dental (+) Upper Partials, edentulous Comments: UPPER PARTIALS AND EDENTULOUS BOTTOM ; NOTHING COMES OUT Pulmonary Abdominal Anesthesia Plan patient is NPO appropriate Any family history or previous problems with anesthesia no ASA 4 general Any family history or previous problems with anesthesia no The patient is not a current smoker. Anesthetic plan and risks discussed with patient. TRAM Screening STOP-Bang Total Score: 4 Labs: No results found for: WBC, HGB, HCT, MCV, PLT Lab Results Component Value Date NA 138 09/30/2020 K 4.9 09/30/2020 CL 105 09/30/2020 CO2 30 09/30/2020 BUN 15 09/30/2020 CREATININE 0.81 09/30/2020 GLUCOSE 77 09/30/2020 CALCIUM 9.4 09/30/2020 PROT 7.3 09/30/2020 ALKPHOS 63 09/30/2020 AST 29 09/30/2020 No echocardiogram results found for the past 14 days 06/11/24 ECG 12-LEAD 07/06/2024 9:28 AM (Final) Narrative Sinus Rhythm WITHIN NORMAL LIMITS Signed by: Becky Tineo on 07/06/2024 9:28 AM Equipment Requests: [facility] NoteComprehensive PreSurgical History and Physical ? Name: Sharonda Flores : 1955 (Age-69 y.o.) Date of Service: Pt seen/examined on 07/18/2024 Procedure Information Date/Time: 07/25/24729 Procedures: CORONARY ARTERY BYPASS GRAFT (Chest) - 7:30 am, 5 hours TRANSESOPHAGEAL ECHOCARDIOGRAM Location: [facility] OR [address] [place] [address] Operating Room Surgeons: Brooklynn Martinez DO Chief Complaint: LEFT SHOULDER AND ONE EPISODE OF CHEST PAIN LAST MONTH ASSESSMENT/PLAN: Patient is considered intermediate risk for this high risk surgery noted above with no reducible risk factors. Based on the above evaluation, the benefits of the planned procedure likely exceed the risks. The patient is medically optimized to proceed with the planned procedure without any further cardiopulmonary testing. 1) Atherosclerotic heart disease of chilkoot coronary artery with other forms of angina pectoris ;S/P (s/p several PCI, most recently 2011 - LAD, LCx, distal RCA with known PHYSICIAN NON INVASIVE CARDIOLOGIST D2), preserved LVEF (65%), ; Managed per surgery 2) HTN Typically controlled Compliant with meds. Taking COREG Follows with PCP Labs and EKG done BP Readings from Last 3 Encounters: 07/18/24 (!) 146/80 07/10/24 118/74 07/05/24 (!) 139/105 3) HLD ;TAKING STATIN AND F/U WITH PCP 4) FORMER SMOKER 5) H/O MALIGNANT NEOPLASM OF RIGHT LUNG ;S/P right VATS lobectomy ON 02/09/24 AT [facility] 6) TRAM ; DENIES ANY C-PAP 7) H/O PVD ; F/U WITH VASCULAR AT [facility]) 8) PSORIASIS OF SKIN Visit Type: Pre-Admission Testing Visit Labs Ordered: YES - PER PAT PROTOCOL MRSA REPORT PENDING AT THE TIME OF CLOSURE OF ENCOUNTER Sleep Referral Ordered: NO - NEGATIVE SCREEN PER SLEEP REFERRAL PROTOCOL Total time spent (which include face to face and non face to face encounters) : 60 minutes Toxic drug monitoring/narrow therapeutic index drug monitoring : # Drug name : multiple # Route administered : po # Method of monitoring : LAB AND EKG PAT Protocol referenced includes: 1. Anesthesia Lab Protocol Orders 2. Perioperative Cardiovascular Risk Assessment 3. Anesthesia Assessment 4. Pain Assessment and Acute Pain Service Consult (if appropriate) 5. Medical Clearance/Consult from Internal Medicine (IMS) 6. Shower/Wash Order (for designated surgeries) 7. TRAM Screen and Sleep Clinic Referral (if appropriate) History Of Present Illness: Patient here in PAT along with his brother 69 y.o. male who presents with chief complaint mentioned above. Per surgeon's note dated 07/10/24 Sharonda Flores is a 68 y.o. male referred by Dr. Tineo for CABG. Per note, pt with PMHx CAD (s/p several PCI, most recently 2011 - LAD, LCx, distal RCA with known PHYSICIAN NON INVASIVE CARDIOLOGIST D2), preserved LVEF (65%), HTN, HLD, PAD (follows with vascular at [facility]), prior tobacco use, pulmonary nodules, adenocarcinoma s/p RUL lobectomy 01/2024 (follows with pulmonology), and psoriasis. Pt had presented to [facility] ED with a sharp pain in the center of his chest with left shoulder ache. He had associated diaphoresis and nausea. EKG was normal. Chest xray was negative. Troponin was WNL. Pt was discharged and advised to follow up with Cardiology. Pt reported left shoulder pain for the past month. A stress echocardiogram was ordered and completed on 06/25/24 which was abnormal. He thenunderwent a heart catheterization on 07/08/24 which demonstrated multivessel CAD. Pt is a former smoker. Pt is here now for an evaluation. He describes anginal pain that starts in his left shoulder and radiates down his left arm. It comes with exertion and sometimes without. He was recently given isosorbide which has helped his symptoms considerably. He denies shortness of breath with it. He quit smoking about 12 years ago and is not diabetic. He lives alone and can take care of all his daily activities. About 3 months ago he had a right VATS lobectomy for lung cancer at [facility]. He has recovered well since then. Pt has seen the surgeon and elected for above procedure. Hx problems with anesthesia? - Denies Past Medical History: Past Medical History: No date: Arrhythmia Comment: v-fib/ arrest No date: CAD (coronary artery disease) No date: Cancer (CMS/HCC) (HCC) Comment: LUNG UPPER RIGHT - SURGERY FOR REMOVAL 02/09/2024 No date: Congenital heart disease No date: Hyperlipidemia No date: Hypertension No date: [place], old Comment: ST[address] PLACE No date: Sleep apnea Comment: NO CPAP WORN Past Surgical History: Past Surgical History: No date: ADENOIDECTOMY No date: APPENDECTOMY 07/05/2024: CARDIAC CATHETERIZATION; N/A Comment: Performed by Becky Tineo MD at [facility] Cardiac Cath/EP Lab 03/15/2012: CARDIAC PROCEDURE Comment: BMS mid dis RCA 03/2012: CARDIAC PROCEDURE Comment: REBECCA to mis dist LAD 05/2012: CARDIAC PROCEDURE Comment: REBECCA to pro (more content not included)...[facility] 07-12-2024 Note* Addendum Note - SESAR Hauser CNP - 07/12/2024 10:40 AM ESTAddended by: RUDDY EATON on: 07/12/2024 10:40 AM Modules accepted: Orders [id number] Miscellaneous Notes* Addendum Note - SESAR Hauser CNP - 07/12/2024 10:40 AM ESTAddended by: RUDDY EATON on: 07/12/2024 10:40 AM Modules accepted: Orders * Telephone Encounter - SESAR Hauser CNP - 07/12/2024 10:39 AM EST Meds sent and orders placed * Telephone Encounter - Shira Manuel - 07/12/2024 10:30 AM EST Prep for Procedure Order Request: 07/12/24 Surgeon: Dr. Martinez Surgery/Procedure: CABG, ZARI Diagnosis: CAD Plan Admit: yes PAT Appointment: yes Date if yes: 07/18/24 1:00 pm [facility] Date of Surgery/Procedure: 07/25/24 7:30 am Medications: [] Hold as directed by CTS: [x] Per PAT protocol Medication needed prescribed: [] None [x] Nasal ointment and mouth rinse [] Other: documented in this [facility]12-13-2024 Telephone encounter Note* Telephone Encounter - SESRA Hauser CNP - 07/12/2024 10:39 AM EST Meds sent and orders placed [id number] NotePrep for Procedure Order Request: 07/12/24 Surgeon: Dr. Martinez Surgery/Procedure: CABG, ZARI Diagnosis: CAD Plan Admit: yes PAT Appointment: yes Date if yes: 07/18/24 1:00 pm [facility] Date of Surgery/Procedure: 07/25/24 7:30 am Medications: [] Hold as directed by CTS: [x] Per PAT protocol Medication needed prescribed: [] None [x] Nasal ointment and mouth rinse [] Other: [facility]12-13-2024 Telephone encounter Note* Telephone Encounter - Shira Manuel - 07/12/2024 10:30 AM EST Prep for Procedure Order Request: 07/12/24 Surgeon: Dr. Martinez Surgery/Procedure: CABG, ZARI Diagnosis: CAD Plan Admit: yes PAT Appointment: yes Date if yes: 07/18/24 1:00 pm SB Date of Surgery/Procedure: 07/25/24 7:30 am Medications: [] Hold as directed by CTS: [x] Per PAT protocol Medication needed prescribed: [] None [x] Nasal ointment and mouth rinse [] Other: [id number] CARDIOVASCULAR & THORACIC SURGERY [address] [facility] [address] Dept: [phone] Dept Loc: [phone] Visit type: New Reason for Visit: CAD Assessment: 1. 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 Angina, class III (CMS/HCC) (HCC) 3. Essential hypertension 4. Malignant neoplasm of right lung, unspecified part of lung (HCC) Recommendations: He will undergo CABG as the best revascularization option. This was explained to him in detail. The risks were outlined in terms of the STS risk calculator. All questions were answered. We will need to obtain his echocardiogram or repeat the study prior to his operation. Other preoperative testing has been ordered. He is ready to proceed. At least 2/3 of his LAD has been stented which will make for a very distal bypass graft. STS Risk Calculator Procedure Type: Isolated CABG Perioperative Outcome Estimate % Operative Mortality 1% Morbidity & Mortality 4.45% Stroke 0.675% Renal Failure 0.668% Reoperation 2.35% Prolonged Ventilation 2.08% Deep Sternal Wound Infection 0.11% Long Hospital Stay (>14 days) 1.82% Short Hospital Stay (<6 days)* 62.4% History of Present Illness Sharonda Flores is a 68 y.o. male referred by Dr. Tineo for CABG. Per note, pt with PMHx CAD (s/p several PCI, most recently 2011 - LAD, LCx, distal RCA with known PHYSICIAN NON INVASIVE CARDIOLOGIST D2), preserved LVEF (65%), HTN, HLD, PAD (follows with vascular at [facility]), prior tobacco use, pulmonary nodules, adenocarcinoma s/p RUL lobectomy 01/2024 (follows with pulmonology), and psoriasis. Pt had presented to [facility] ED with a sharp pain in the center of his chest with left shoulder ache. He had associated diaphoresis and nausea. EKG was normal. Chest xray was negative. Troponin was WNL. Pt was discharged and advised to follow up with Cardiology. Pt reported left shoulder pain for the past month. A stress echocardiogram was ordered and completed on 06/25/24 which was abnormal. He thenunderwent a heart catheterization on 07/08/24 which demonstrated multivessel CAD. Pt is a former smoker. Pt is here now for an evaluation. He describes anginal pain that starts in his left shoulder and radiates down his left arm. It comes with exertion and sometimes without. He was recently given isosorbide which has helped his symptoms considerably. He denies shortness of breath with it. He quit smoking about 12 years ago and is not diabetic. He lives alone and can take care of all his daily activities. About 3 months ago he had a right VATS lobectomy for lung cancer at [facility]. He has recovered well since then. Past Medical History Past Medical History: Diagnosis Date Arrhythmia v-fib/ arrest CAD (coronary artery disease) Congenital heart disease Hyperlipidemia Hypertension [place], old Sleep apnea Past Surgical History Past Surgical History: Procedure Laterality Date CARDIAC CATHETERIZATION N/A 07/05/2024 Performed by Becky Tineo MD at [facility] Cardiac Cath/EP Lab CARDIAC PROCEDURE 03/15/2012 BMS mid dis RCA CARDIAC PROCEDURE 03/2012 REBECCA to mis dist LAD CARDIAC PROCEDURE 05/2012 REBECCA to prox LCx CORONARY ANGIOPLASTY 05/2012 circ, distal RCA, & LAD Family History Family History Problem Relation Name Age of Onset Heart disease Father Thad No Known Problems Mother Cancer Maternal Grandfather Mother Social History Marital status: Work history: Retired [place] status: Never Served Social History Tobacco Use Smoking status: Former Current packs/day: 0.00 Average packs/day: 2.0 packs/day for 56.1 years (112.2 ttl pk-yrs) Types: Cigarettes Start date: 1955 Quit date: 08/17/2011 Years since quittin.9 Smokeless tobacco: Former Quit date: 1970 Tobacco comments: Quit smoking: currently occ cigar Substance Use Topics Alcohol use: No Drug use: No Allergies Allergies Allergen Reactions Pcn [Penicillins] Rash Medications Current Outpatient Medications: aspirin 81 MG EC tablet, Take 81 mg by mouth daily., Disp: , Rfl: atorvastatin (Lipitor) 80 MG tablet, Take 1 tablet (80 mg) by mouth every evening., Disp: 90 tablet, Rfl: 3 carvedilol (Coreg) 6.25 MG tablet, Take 1 tablet (6.25 mg) by mouth 2 times daily., Disp: 180 tablet, Rfl: 3 ezetimibe (Zetia) 10 MG tablet, Take 10 mg by mouth in the morning., Disp: , Rfl: isosorbide mononitrate ER (Imdur) 30 MG 24 hr tablet, Take 1 tablet (30 mg) by mouth daily. Do not crush or chew., Disp: 30 tablet, Rfl: 11 nitroglycerin (Nitrostat) 0.4 MG SL tablet, DISSOLVE 1 TABLET UNDER THE TONGUE EVERY 5 MINUTES NEEDED., Disp: , Rfl: Review of Systems Review of Systems Constitutional: Positive for diaphoresis (on exertion). Respiratory: Positive for shortness of breath (on exertion). Cardiovascular: Positive for (more content not included)...[facility]12-06-2024 Hospital Discharge instructions* Discharge Instructions* Jyotiheather Vasques APRN - DISASTER RECOVERY MANAGER - 07/05/2024 12:32 PM EST DISCHARGE INSTRUCTIONS PROCEDURE SITE Call your doctor with any medication questions or if you notice any side effects from your medications. If you are unable to fill your medications, please call your Business Division Chair immediately. The office number is located with your follow-up appointment information. Call your doctor if any redness or drainage from the wound site. DO NOT stop taking your medication unless instructed to do so by your doctor. Read the drug information material that were given to you and take medications as instructed by your doctor. New drugs may have been added to your medications, that will strengthen your heart and prevent re-stenosis of the coronary arteries. Drink 6 glasses of water (8 ounces each) over the next 24 hours. Water helps clear the dye from your body. No alcoholic beverages for 24 hours. It may interfere with healing. No exercise or sex for 5 days. Call 911 for chest pain, arm pain, nausea, neck pain, dizziness or unusual sweating AND your pain has not relieved with 2 doses of Nitroglycerin. Call your doctor if a lump at the puncture site enlarges or is larger than marble size. Call your doctor for numbness, tingling, or swelling of the fingers, hand or wrist. Call your doctor for increased area or bruising with discoloration extending into the arm. If bleeding occurs, hold pressure with your thumb against the puncture site and your finger againstthe back of the wrist for 10 minutes, if BLEEDING continues CALL 911. OK to shower. No tub baths, swimming pools or hot tub soaking for three days. Wash site daily with soap and water, dry gently. The healing wound should remain soft and dry. Keepsite clean and dry, no soaking of wrist for three days (no cleaning or dish washing). Remove band aid the day after procedure and leave open to air. No bending of affected wrist for 24 hours. DO NOT lift more than three pounds for 3-5 days[address] driving for 24 hours. Procedure Sedation Instructions If you have received sedation: you must have someone drive you home You should not drive a car, operate machinery, drink alcohol or perform any activity that requires alertness for the rest of the day. The effects of the sedative should be gone by tomorrow. PLEASE CALL YOUR HEART DOCTOR IF YOU CANNOT GET YOUR MEDICATIONS. THE NUMBER IS LISTED WITH YOUR FOLLOW-UP APPOINTMENT. documented in this [facility]12-06-2024 Attending History and physical note* Becky Tineo MD - 07/05/2024 11:23 AM EST H&P reviewed. The patient was examined and there are no changes to the H&P. Source Note - SESAR Pierson CNP - 07/02/2024 1:33 PM EST Images from the original note were not included. Sharonda Flores is scheduled for a C with Dr. Tineo on 07/05/24 [place] Protocol: No No contrast allergy H+ P copied to chart from Horace Martinez APRN's progress note dated 06/11/[address] Tineo. [facility] CARDIOLOGY [address] [address] Dept: [phone] Dept Visit type: Established : 1955 Reason for Visit: Hospital Follow-up and Chest Pain Assessment and Plan MVCAD with history of PCI with episode of atypical chest pain and new left shoulder pain - Left shoulder pain x 1 month and one episode of chest pain. Patient reports vague symptoms with prior PCIs. His last stress test was in 2019 with no ischemia. He admits he has not been compliant with his statin therapy (states he has never taken it consistently). Blood pressure is low normal today, so unable to add anti-anginal therapy. At this time, I recommend we repeat a stress echocardiogram. He will continue ASA 81 mg daily, carvedilol 6.25 mg BID, atorvastatin 80 mg daily, and ezetimibe 10 mg daily. Patient advised to call sooner with new or worsening symptoms. Essential hypertension - Blood pressure is low normal today. Patient does not check his blood pressure at home. Repeat blood pressures in both arms are equal. Patient denies symptoms. At this time alycewill hold his lisinopril. I have asked patient to purchase a home blood pressure monitor, keep a daily log, and bring to follow up appointment. I have reviewed goal <130/80 and asked he contact our office if he is consistently getting readings above this or if he continues to get low readings. Per my chart review, he has typically been in the 120s systolic at other office visits. Continue carvedilol 6.25 mg BID . Continue lifestyle interventions including dietary salt reduction, DASH diet, achieving and maintaining healthy weight, aerobic exercise at least 30 min daily most days of the week, no smoking, and no excessive alcohol use. Mixed hyperlipidemia - LDL 184 on 06/10/24; goal <70, ideally <55 per ESC guidelines. Patientadmits he has not been compliant with his statin. His PCP added ezetimibe 10 mg daily which he plans to picker and sorter load and unload today. Reviewed lipid panel drawn yesterday with patient, educated on lifestyle interventions to improve triglycerides, LDL and HDL. Continue atorvastatin 80 mg daily and ezetimibe 10 mg daily. Advised patient he needs to be on daily therapy for 3 months before we can repeat lipid panel. PAD (peripheral artery disease) - Patient following with [facility]. R > L DP pulses. Is to schedule further assessment of LLE. Continue ASA 81 mg daily, atorvastatin 80 mg daily, and ezetimibe 10 mg daily. Received records from [facility] following our visit today (scanned in media tab). Assessment and plan below: Follow up in about 1 month (around 07/11/2024). Subjective HPI Sharonda Flores is a 68 year old male, known to Dr. Tineo, with PMHx CAD (s/p several PCI, most recently 2011 - LAD, LCx, distal RCA with known PHYSICIAN NON INVASIVE CARDIOLOGIST D2), preserved LVEF (65%), HTN, HLD, PAD (follows with vascular at [facility]), prior tobacco use, pulmonary nodules, adenocarcinoma s/p RUL lobectomy 01/2024 (follows with pulmonology), and psoriasis. He contacted our office yesterday after presenting to [facility] over the weekend with right sided chest pain at rest with associated left shoulder/arm pain. He also noticed a acid taste in his mouth and leg weakness. He was recommended an urgent office visit. Sharonda Flores presents today in urgent ER follow up. His ER visit was prompted by a sharp pain in the center of his chest with left shoulder ache. He had associated diaphoresis and nausea. He has been having similar left shoulder ache without chest pain for the past month. This has been occurring both at rest and exertion. Episodes last 5 minutes or less. When symptoms occur with exertion, if he sits and rest they resolve within 5 min. If symptoms occur at rest, he goes and lays down and is able to go to sleep. These does not seem to be a discernable pattern or precipitating factor. He hasnot tried SL NTG. He also notes bilateral arm weakness with exertion (like when he was leaf blowing last week) and bilateral leg weakness. He was seen by [facility] 06/07/24 and states they found a problem in his left leg that he needs further testing for, right leg was clear. He denies claudication symptoms. He denies lightheadedness, dizziness, bleeding, and swelling. He notes prior injury to his left shoulder and he wonders if some of his symptoms are due to an orthopedic issues. At the time of his prior stenting, he does not recall every having chest pain, just felt unwell. Review of Systems Constitutional: Negative for chills, diaphoresis and fever. HENT: Negative for nosebleeds. Eyes: Negative for visual disturbance. Respiratory: Positive for shortness of breath (cold weather makes worse). Negative for chest tightness and wheezing. Cardiovascular: Positive for chest pain (left shoulder ache). Negative for palpitations and leg swelling. Gastrointestinal: Negative for abdominal pain, blood in stool and diarrhea. Genitourinary: Negative for hematuria. Musculoskeletal: Negative for myalgias. Neurological: Negative for dizziness, syncope and light-headedness. Hematological: Does not bruise/bleed easily. Allergies No Known Allergies Medications Prior to Visit Outpatient Medications Prior to Visit Medication Sig Dispense Refill aspirin 81 MG EC tablet Take 81 mg by mouth daily. atorvastatin (Lipitor) 80 MG tablet Take 1 tablet (80 mg) by mouth every evening. 90 tablet 3 carvedilol (Coreg) 6.25 MG tablet Take 1 tablet (6.25 mg) by mouth 2 times daily. 180 tablet 3 ezetimibe (Zetia) 10 MG tablet Take 10 mg by mouth in the morning. nitroglycerin (Nitrostat) 0.4 MG SL tablet DISSOLVE 1 TABLET UNDER THE TONGUE EVERY 5 MINUTES NEEDED. lisinopril 5 MG tablet Take 1 tablet (5 mg) by mouth daily. 90 tablet 0 No facility-administered medications prior to visit. Medical History Past Medical History: Diagnosis Date Arrhythmia v-fib/ arrest CAD (coronary artery disease) Hyperlipidemia [place], old Sleep apnea Social History Tobacco Use Smoking status: Former Current packs/day: 0.00 Types: Cigarettes Quit date: 08/17/2011 Years since quittin.8 Smokeless tobacco: Never Tobacco comments: Quit smoking: currently occ cigar Substance Use Topics Alcohol use: No Surgical History Past Surgical History: Procedure Laterality Date CARDIAC PROCEDURE 03/15/2012 BMS mid dis RCA CARDIAC PROCEDURE 03/2012 REBECCA to mis dist LAD CARDIAC PROCEDURE 05/2012 REBECCA to prox LCx CORONARY ANGIOPLASTY 05/2012 circ, distal RCA, & LAD Family History Family History Problem Relation Name Age of Onset Heart disease Father No Known Problems Mother Objective Vitals Vitals: 06/11/24 0903 06/11/24 0950 06/11/24 0951 BP: 90/52 98/58 98/52 BP Location: Left arm Left arm Right leg Patient Position: Sitting BP Cuff Size: Adult Pulse: 64 SpO2: 95% Weight: 157 lb 6.4 oz (71.4 kg) Height: 5' 5 (1.651 m) Physical Exam Constitutional: Appearance: Normal appearance. He is overweight. Cardiovascular: Rate and Rhythm: Normal rate and regular rhythm. Pulses: Radial pulses are 2+ on the right side and 2+ on the left side. Dorsalis pedis pulses are 2+ on the right side and 1+ on the left side. Heart sounds: Normal heart sounds. No murmur heard. No friction rub. Pulmonary: Effort: Pulmonary effort is normal. Breath sounds: Normal breath sounds and air entry. No wheezing, rhonchi or rales. Abdominal: General: Abdomen is flat. Bowel sounds are normal. Palpations: Abdomen is soft. Musculoskeletal: Right lower leg: No edema. Left lower leg: No edema. Skin: General: Skin is warm and dry. Capillary Refill: Capillary refill takes less than 2 seconds. Neurological: Mental Status: He is alert and oriented to person, place, and time. Psychiatric: Attention and Perception: Attention normal. Mood and Affect: Mood normal. Speech: Speech normal. Behavior: Behavior normal. Thought Content: Thought content normal. Data Reviewed and Summarized Review of tests/labs done/ordered within my specialty: EKG in office: SR; HR 64 TTE 11/06/2018 RAMAN Ozuna Nurse Practitioner in Interventional Cardiology [facility] - Cardiology Signed PC to patient. He states he was not able to complete all stages of the stress test due to significant leg weakness, left shoulder pain, and acid taste in mouth. States he was told blood pressure was elevated at stress test today, but mostly controlled at home. Provides me with various readings ranging 110s-130s/60-70s. He states he had US of bilateral legs, arm, and neck that he was told have moderate blockage. He was ordered PT. I would like to review the stress test with Dr. Tineo as well as obtain records from vascular US's. Patient is agreeable to plan. Signed Patient reviewed with Dr. Tineo who recommends OP LHC/coronary angiography. PC to patient zain recommendation. Reviewed indications and potential risks and benefits. Patient is agreeable to plan. Will place case request. He will need pre-procedure labs. H&P and EKG valid through 07/11/24. Patient to start imdur 30 mg daily. Advised on potential side effects, premedication with tylenol, and blood pressure monitoring. Patient verbalizes understanding and is agreeable to plan. Coronary Appropriate Use Criteria Coronary Presentation (select one): New Onset Angina < = 2 months History of CABG (select one): No Diabetes (select one): No Anginal Classification (CCS) within 2 weeks (select one): CCS II - Slight limitation, with angina only during vigorous physical activity Anti-anginal Meds within 2 weeks (select all that apply): Yes: Beta Blockers, Long Acting Nitrates (Any), Aspirin, and Statin (Any) Stress or Imaging studies performed (select one), risk/extent of ischemia (select one if applicable): Yes, Intermediate Patient undergoing renal transplant or percutaneous valve procedure (select one): No NYHA Classification: N/A, no history of HF Frailty Score : 4 Cosigned by Becky Tineo MD at 07/05/2024 10:18 PM EST [id number] NoteH&P reviewed. The patient was examined and there are no changes to the H&P.[facility]12-06-2024 History and physical note* Becky Tineo MD - 07/05/2024 11:23 AM EST H&P reviewed. The patient was examined and there are no changes to the H&P. Source Note - Horace Martinez APRN - RENEE - 07/02/2024 1:33 PM EST Images from the original note were not included. Sharonda Flores is scheduled for a LHC with Dr. Tineo on 07/05/24 [place] Protocol: No No contrast allergy H+ P copied to chart from Horace Martinez APRN's progress note dated 06/11/[address] Tineo. [facility] - [address] [address] Dept: [phone] Dept Visit type: Established : 1955 Reason for Visit: Hospital Follow-up and Chest Pain Assessment and Plan MVCAD with history of PCI with episode of atypical chest pain and new left shoulder pain - Left shoulder pain x 1 month and one episode of chest pain. Patient reports vague symptoms with prior PCIs. His last stress test was in 2019 with no ischemia. He admits he has not been compliant with his statin therapy (states he has never taken it consistently). Blood pressure is low normal today, so unable to add anti-anginal therapy. At this time, I recommend we repeat a stress echocardiogram. He will continue ASA 81 mg daily, carvedilol 6.25 mg BID, atorvastatin 80 mg daily, and ezetimibe 10 mg daily. Patient advised to call sooner with new or worsening symptoms. Essential hypertension - Blood pressure is low normal today. Patient does not check his blood pressure at home. Repeat blood pressures in both arms are equal. Patient denies symptoms. At this time wewill hold his lisinopril. I have asked patient to purchase a home blood pressure monitor, keep a daily log, and bring to follow up appointment. I have reviewed goal <130/80 and asked he contact our office if he is consistently getting readings above this or if he continues to get low readings. Per my chart review, he has typically been in the 120s systolic at other office visits. Continue carvedilol 6.25 mg BID . Continue lifestyle interventions including dietary salt reduction, DASH diet, achieving and maintaining healthy weight, aerobic exercise at least 30 min daily most days of the week, no smoking, and no excessive alcohol use. Mixed hyperlipidemia - LDL 184 on 06/10/24; goal <70, ideally <55 per ESC guidelines. Patientadmits he has not been compliant with his statin. His PCP added ezetimibe 10 mg daily which he plans to picker and sorter load and unload today. Reviewed lipid panel drawn yesterday with patient, educated on lifestyle interventions to improve triglycerides, LDL and HDL. Continue atorvastatin 80 mg daily and ezetimibe 10 mg daily. Advised patient he needs to be on daily therapy for 3 months before we can repeat lipid panel. PAD (peripheral artery disease) - Patient following with [facility]. R > L DP pulses. Is to schedule further assessment of LLE. Continue ASA 81 mg daily, atorvastatin 80 mg daily, and ezetimibe 10 mg daily. Received records from [facility] ER following our visit today (scanned in media tab). Assessment and plan below: Follow up in about 1 month (around 07/11/2024). Subjective HPI Sharonda Flores is a 68 year old male, known to Dr. Tineo, with PMHx CAD (s/p several PCI, most recently 2011 - LAD, LCx, distal RCA with known PHYSICIAN NON INVASIVE CARDIOLOGIST D2), preserved LVEF (65%), HTN, HLD, PAD (follows with vascular at [facility]), prior tobacco use, pulmonary nodules, adenocarcinoma s/p RUL lobectomy 01/2024 (follows with pulmonology), and psoriasis. He contacted our office yesterday after presenting to [facility] over the weekend with right sided chest pain at rest with associated left shoulder/arm pain. He also noticed a acid taste in his mouth and leg weakness. He was recommended an urgent office visit. Sharonda Flores presents today in urgent ER follow up. His ER visit was prompted by a sharp pain in the center of his chest with left shoulder ache. He had associated diaphoresis and nausea. He has been having similar left shoulder ache without chest pain for the past month. This has been occurring both at rest and exertion. Episodes last 5 minutes or less. When symptoms occur with exertion, if he sits and rest they resolve within 5 min. If symptoms occur at rest, he goes and lays down and is able to go to sleep. These does not seem to be a discernable pattern or precipitating factor. He hasnot tried SL NTG. He also notes bilateral arm weakness with exertion (like when he was leaf blowing last week) and bilateral leg weakness. He was seen by [facility] 06/07/24 and states they found a problem in his left leg that he needs further testing for, right leg was clear. He denies claudication symptoms. He denies lightheadedness, dizziness, bleeding, and swelling. He notes prior injury to his left shoulder and he wonders if some of his symptoms are due to an orthopedic issues. At the time of his prior stenting, he does not recall every having chest pain, just felt unwell. Review of Systems Constitutional: Negative for chills, diaphoresis and fever. HENT: Negative for nosebleeds. Eyes: Negative for visual disturbance. Respiratory: Positive for shortness of breath (cold weather makes worse). Negative for chest tightness and wheezing. Cardiovascular: Positive for chest pain (left shoulder ache). Negative for palpitations and leg swelling. Gastrointestinal: Negative for abdominal pain, blood in stool and diarrhea. Genitourinary: Negative for hematuria. Musculoskeletal: Negative for myalgias. Neurological: Negative for dizziness, syncope and light-headedness. Hematological: Does not bruise/bleed easily. Allergies No Known Allergies Medications Prior to Visit Outpatient Medications Prior to Visit Medication Sig Dispense Refill aspirin 81 MG EC tablet Take 81 mg by mouth daily. atorvastatin (Lipitor) 80 MG tablet Take 1 tablet (80 mg) by mouth every evening. 90 tablet 3 carvedilol (Coreg) 6.25 MG tablet Take 1 tablet (6.25 mg) by mouth 2 times daily. 180 tablet 3 ezetimibe (Zetia) 10 MG tablet Take 10 mg by mouth in the morning. nitroglycerin (Nitrostat) 0.4 MG SL tablet DISSOLVE 1 TABLET UNDER THE TONGUE EVERY 5 MINUTES NEEDED. lisinopril 5 MG tablet Take 1 tablet (5 mg) by mouth daily. 90 tablet 0 No facility-administered medications prior to visit. Medical History Past Medical History: Diagnosis Date Arrhythmia v-fib/ arrest CAD (coronary artery disease) Hyperlipidemia [place], old Sleep apnea Social History Tobacco Use Smoking status: Former Current packs/day: 0.00 Types: Cigarettes Quit date: 08/17/2011 Years since quittin.8 Smokeless tobacco: Never Tobacco comments: Quit smoking: currently occ cigar Substance Use Topics Alcohol use: No Surgical History Past Surgical History: Procedure Laterality Date CARDIAC PROCEDURE 03/15/2012 BMS mid dis RCA CARDIAC PROCEDURE 03/2012 REBECCA to mis dist LAD CARDIAC PROCEDURE 05/2012 REBECCA to prox LCx CORONARY ANGIOPLASTY 05/2012 circ, distal RCA, & LAD Family History Family History Problem Relation Name Age of Onset Heart disease Father No Known Problems Mother Objective Vitals Vitals: 06/11/24 0903 06/11/24 0950 06/11/24 0951 BP: 90/52 98/58 98/52 BP Location: Left arm Left arm Right leg Patient Position: Sitting BP Cuff Size: Adult Pulse: 64 SpO2: 95% Weight: 157 lb 6.4 oz (71.4 kg) Height: 5' 5 (1.651 m) Physical Exam Constitutional: Appearance: Normal appearance. He is overweight. Cardiovascular: Rate and Rhythm: Normal rate and regular rhythm. Pulses: Radial pulses are 2+ on the right side and 2+ on the left side. Dorsalis pedis pulses are 2+ on the right side and 1+ on the left side. Heart sounds: Normal heart sounds. No murmur heard. No friction rub. Pulmonary: Effort: Pulmonary effort is normal. Breath sounds: Normal breath sounds and air entry. No wheezing, rhonchi or rales. Abdominal: General: Abdomen is flat. Bowel sounds are normal. Palpations: Abdomen is soft. Musculoskeletal: Right lower leg: No edema. Left lower leg: No edema. Skin: General: Skin is warm and dry. Capillary Refill: Capillary refill takes less than 2 seconds. Neurological: Mental Status: He is alert and oriented to person, place, and time. Psychiatric: Attention and Perception: Attention normal. Mood and Affect: Mood normal. Speech: Speech normal. Behavior: Behavior normal. Thought Content: Thought content normal. Data Reviewed and Summarized Review of tests/labs done/ordered within my specialty: EKG in office: SR; HR 64 TTE 11/06/2018 RAMAN Ozuna Nurse Practitioner in Interventional Cardiology [facility] - Cardiology Signed PC to patient. He states he was not able to complete all stages of the stress test due to significant leg weakness, left shoulder pain, and acid taste in mouth. States he was told blood pressure was elevated at stress test today, but mostly controlled at home. Provides me with various readings ranging 110s-130s/60-70s. He states he had US of bilateral legs, arm, and neck that he was told have moderate blockage. He was ordered PT. I would like to review the stress test with Dr. Tineo as well as obtain records from vascular US's. Patient is agreeable to plan. Signed Patient reviewed with Dr. Tineo who recommends OP LHC/coronary angiography. PC to patient toreview recommendation. Reviewed indications and potential risks and benefits. Patient is agreeable to plan. Will place case request. He will need pre-procedure labs. H&P and EKG valid through 07/11/24. Patient to start imdur 30 mg daily. Advised on potential side effects, premedication with tylenol, and blood pressure monitoring. Patient verbalizes understanding and is agreeable to plan. Coronary Appropriate Use Criteria Coronary Presentation (select one): New Onset Angina < = 2 months History of CABG (select one): No Diabetes (select one): No Anginal Classification (CCS) within 2 weeks (select one): CCS II - Slight limitation, with angina only during vigorous physical activity Anti-anginal Meds within 2 weeks (select all that apply): Yes: Beta Blockers, Long Acting Nitrates (Any), Aspirin, and Statin (Any) Stress or Imaging studies performed (select one), risk/extent of ischemia (select one if applicable): Yes, Intermediate Patient undergoing renal transplant or percutaneous valve procedure (select one): No NYHA Classification: N/A, no history of HF Frailty Score : 4 Cosigned by Becky Tineo MD at 07/05/2024 10:18 PM EST documented in [facility]12-03-2024 Note Attestation signed by Becky Tineo MD at 07/05/2024 10:18 PM I, Dr. Tineo, saw and evaluated the patient. I personally obtained the davalos and critical portions of the history and physical exam. I reviewed the chart and discussed the patient with the Nurse Practitioner. I agree with the Nurse Practitioner's medical decision making. I spoke with Sharonda Flores this morning. he tells me that nothing has changed clinically since our last office visit. We will proceed with the planned procedure. Sharonda Flores is scheduled for a [facility] with Dr. Tineo on 07/05/24 [place] Protocol: No No contrast allergy H+ P copied to chart from Horace Martinez APRN's progress note dated 06/11/[address] Tineo. [facility] - [address] [address] Dept: [phone] Dept Visit type: Established : 1955 Reason for Visit: Hospital Follow-up and Chest Pain Assessment and Plan MVCAD with history of PCI with episode of atypical chest pain and new left shoulder pain - Left shoulder pain x 1 month and one episode of chest pain. Patient reports vague symptoms with prior PCIs. His last stress test was in 2019 with no ischemia. He admits he has not been compliant with his statin therapy (states he has never taken it consistently). Blood pressure is low normal today, so unable to add anti-anginal therapy. At this time, I recommend we repeat a stress echocardiogram. He will continue ASA 81 mg daily, carvedilol 6.25 mg BID, atorvastatin 80 mg daily, and ezetimibe 10 mg daily. Patient advised to call sooner with new or worsening symptoms. Essential hypertension - Blood pressure is low normal today. Patient does not check his blood pressure at home. Repeat blood pressures in both arms are equal. Patient denies symptoms. At this time we will hold his lisinopril. I have asked patient to purchase a home blood pressure monitor, keep a daily log, and bring to follow up appointment. I have reviewed goal <130/80 and asked he contact our office if he is consistently getting readings above this or if he continues to get low readings. Per my chart review, he has typically been in the 120s systolic at other office visits. Continue carvedilol 6.25 mg BID . Continue lifestyle interventions including dietary salt reduction, DASH diet, achieving and maintaining healthy weight, aerobic exercise at least 30 min daily most days of the week, no smoking, and no excessive alcohol use. Mixed hyperlipidemia - LDL 184 on 06/10/24; goal <70, ideally <55 per ESC guidelines. Patient admits he has not been compliant with his statin. His PCP added ezetimibe 10 mg daily which he plans to picker and sorter load and unload today. Reviewed lipid panel drawn yesterday with patient, educated on lifestyle interventions to improve triglycerides, LDL and HDL. Continue atorvastatin 80 mg daily and ezetimibe 10 mg daily. Advised patient he needs to be on daily therapy for 3 months before we can repeat lipid panel. PAD (peripheral artery disease) - Patient following with [facility]. R > L DP pulses. Is to schedule further assessment of LLE. Continue ASA 81 mg daily, atorvastatin 80 mg daily, and ezetimibe 10 mg daily. Received records from [facility] ER following our visit today (scanned in media tab). Assessment and plan below: Follow up in about 1 month (around 07/11/2024). Subjective HPI Sharonda Flores is a 68 year old male, known to Dr. Tineo, with PMHx CAD (s/p several PCI, most recently 2011 - LAD, LCx, distal RCA with known PHYSICIAN NON INVASIVE CARDIOLOGIST D2), preserved LVEF (65%), HTN, HLD, PAD (follows with vascular at [facility]), prior tobacco use, pulmonary nodules, adenocarcinoma s/p RUL lobectomy 01/2024 (follows with pulmonology), and psoriasis. He contacted our office yesterday after presenting to [place] [facility] over the weekend with right sided chest pain at rest with associated left shoulder/arm pain. He also noticed a acid taste in his mouth and leg weakness. He was recommended an urgent office visit. Sharonda Flores presents today in urgent ER follow up. His ER visit was prompted by a sharp pain in the center of his chest with left shoulder ache. He had associated diaphoresis and nausea. He has been having similar left shoulder ache without chest pain for the past month. This has been occurring both at rest and exertion. Episodes last 5 minutes or less. When symptoms occur with exertion, if he sits and rest they resolve within 5 min. If symptoms occur at rest, he goes and lays down and is able to go to sleep. These does not seem to be a discernable pattern or precipitating factor. He has not tried SL NTG. He also notes bilateral arm weakness with exertion (like when he was leaf blowing last week) and bilater (more content not included)...[facility] 07-02-2024 Note Attestation signed by Becky Tineo MD at 07/05/2024 10:18 PM I, Dr. Tineo, saw and evaluated the patient. I personally obtained the davalos and critical portions of the history and physical exam. I reviewed the chart and discussed the patient with the Nurse Practitioner. I agree with the Nurse Practitioner's medical decision making. I spoke with Sharonda Flores this morning. he tells me that nothing has changed clinically since our last office visit. We will proceed with the planned procedure. Sharonda Flores is scheduled for a [facility] with Dr. Tineo on [facility]05[facility] [place] Protocol: No No contrast allergy H+ P copied to chart from Horace Martinez APRN's progress note dated 06/11/[address] Tineo. [facility] [address] [address] Dept: [phone] Dept Visit type: Established : 1955 Reason for Visit: Hospital Follow-up and Chest Pain Assessment and Plan MVCAD with history of PCI with episode of atypical chest pain and new left shoulder pain - Left shoulder pain x 1 month and one episode of chest pain. Patient reports vague symptoms with prior PCIs. His last stress test was in 2019 with no ischemia. He admits he has not been compliant with his statin therapy (states he has never taken it consistently). Blood pressure is low normal today, so unable to add anti-anginal therapy. At this time, I recommend we repeat a stress echocardiogram. He will continue ASA 81 mg daily, carvedilol 6.25 mg BID, atorvastatin 80 mg daily, and ezetimibe 10 mg daily. Patient advised to call sooner with new or worsening symptoms. Essential hypertension - Blood pressure is low normal today. Patient does not check his blood pressure at home. Repeat blood pressures in both arms are equal. Patient denies symptoms. At this time we will hold his lisinopril. I have asked patient to purchase a home blood pressure monitor, keep a daily log, and bring to follow up appointment. I have reviewed goal <130/80 and asked he contact our office if he is consistently getting readings above this or if he continues to get low readings. Per my chart review, he has typically been in the 120s systolic at other office visits. Continue carvedilol 6.25 mg BID . Continue lifestyle interventions including dietary salt reduction, DASH diet, achieving and maintaining healthy weight, aerobic exercise at least 30 min daily most days of the week, no smoking, and no excessive alcohol use. Mixed hyperlipidemia - LDL 184 on 06/10/24; goal <70, ideally <55 per ESC guidelines. Patient admits he has not been compliant with his statin. His PCP added ezetimibe 10 mg daily which he plans to picker and sorter load and unload today. Reviewed lipid panel drawn yesterday with patient, educated on lifestyle interventions to improve triglycerides, LDL and HDL. Continue atorvastatin 80 mg daily and ezetimibe 10 mg daily. Advised patient he needs to be on daily therapy for 3 months before we can repeat lipid panel. PAD (peripheral artery disease) - Patient following with [facility]. R > L DP pulses. Is to schedule further assessment of LLE. Continue ASA 81 mg daily, atorvastatin 80 mg daily, and ezetimibe 10 mg daily. Received records from [facility] ER following our visit today (scanned in media tab). Assessment and plan below: Follow up in about 1 month (around 07/11/2024). Subjective HPI Sharonda Flores is a 68 year old male, known to Dr. Tineo, with PMHx CAD (s/p several PCI, most recently 2011 - LAD, LCx, distal RCA with known PHYSICIAN NON INVASIVE CARDIOLOGIST D2), preserved LVEF (65%), HTN, HLD, PAD (follows with vascular at [facility]), prior tobacco use, pulmonary nodules, adenocarcinoma s/p RUL lobectomy 01/2024 (follows with pulmonology), and psoriasis. He contacted our office yesterday after presenting to [facility] over the weekend with right sided chest pain at rest with associated left shoulder/arm pain. He also noticed a acid taste in his mouth and leg weakness. He was recommended an urgent office visit. Sharonda Flores presents today in urgent ER follow up. His ER visit was prompted by a sharp pain in the center of his chest with left shoulder ache. He had associated diaphoresis and nausea. He has been having similar left shoulder ache without chest pain for the past month. This has been occurring both at rest and exertion. Episodes last 5 minutes or less. When symptoms occur with exertion, if he sits and rest they resolve within 5 min. If symptoms occur at rest, he goes and lays down and is able to go to sleep. These does not seem to be a discernable pattern or precipitating factor. He has not tried SL NTG. He also notes bilateral arm weakness with exertion (like when he was leaf blowing last week) and bilater (more content not included)...[facility] 07-02-2024 NoteDx: I25.118 & R94.39 Procedure: LHC Date/Time: 07/05/2024 at 10:00a Surgeon: TREMAYNE Location: [facility] Admission: OP Anesthesia: n/a Patient agreeable to above date/time. On PB calendar and no auth req per Medicare. Requested on [employer]. I cancelled Ileana's appt on 07/04/24[facility]11-25-2024 Telephone encounter Note* Telephone Encounter - Shonna Moreland - 06/24/2024 10:08 AM EST Received call from Non-invasive radiology stating the Stress Echo that is scheduled for tomorrow 06/25 is not passing medical necessity. *[id number] [facility] [id number] Miscellaneous Notes* Telephone Encounter - Shonna Moreland - 06/24/2024 10:08 AM EST Received call from Non-invasive radiology stating the Stress Echo that is scheduled for tomorrow 06/25 is not passing medical necessity. *[id number] documented in this encounterSAultman Orrville [id number] Telephone encounter Note* Telephone Encounter - Selene Marinelli - 06/11/2024 11:23 AM EST Scanned under Media [facility] [id number] Miscellaneous Notes* Telephone Encounter - Selene Marinelli - 06/11/2024 11:23 AM EST Scanned under Media * Telephone Encounter - Selene Marinelli - 06/11/2024 9:07 AM EST Requested ED records. Waiting on fax * Telephone Encounter - oJanna Nunez RN - 06/10/2024 2:59 PM EST Spoke with patient and scheduled appt tomorrow Gerri Martinez APRN * Telephone Encounter - Horace Martinez APRN - RENEE - 06/10/2024 2:43 PM EST Chart and message reviewed. Agree with sooner follow up. I have openings tomorrow if patient is available. * Telephone Encounter - Joanna Nunez RN - 06/10/2024 2:17 PM EST Spoke with patient and reviewed below. Patient denies any chest pain since ER visit yesterday. States he will intermittently have left/right shoulder pain for a few months. Denies any associated chest pain, SOB, lightheadedness. Patient able to complete ADLs and walk up flight of stairs without difficulty. Denies lifting anything heavy to cause shoulder pain. States 50 years ago he dislocated left shoulder. When he went to ER, provider mentioned possible outpatient stress test per cardiology follow-up. Gerri Martinez APRN to review and advise. * Telephone Encounter - Joanna Nunez RN - 06/10/2024 10:16 AM EST Chart reviewed, [facility] Dr. Tineo 01/16/24. History of several PCI, 2011, doing well at time of visit and PAD following vascular at [facility]. PCP visit today, patient went to [facility] ER yesterday for right sided chest pain, lasting few seconds occurring at rest. Associated with random episodes of left shoulder, arm pain. Also had funny acid taste in mouth with feeling weak in legs when walking. ER cardiac work-up negative. Denies having chest or arm pain when exerting self and denied chest pain today. PCP recommended follow-up cardiology and exam seems more musculoskeletal. Advised patient to follow-up with vascular as well. Patient also follows with pulmonology s/p RUL lobectomy for adenocarcinoma 01/2024, patient described having intermittent neuropathic pain at that time. Left message for patient to discuss. Deann Marinelli to obtain [facility] notes. * Telephone Encounter - Velia Morgan RN - 06/08/2024 6:29 AM EST S: Patient spoke with [facility] nurse regarding meds refill s and an appointment request. B: Onset of symptoms on and off for several months. BETH 01/21. A: L shoulder is aching and nausea, cold sweats, no chest pain, after walking his legs couldn't hold him up and after setting down for a few seconds everything comes back, sometimes gets a funny taste in the mouth, sometimes gets a headache. Sx's come and go and are getting worse. Needs Cavedilol 6.25 mg, Lisinopril 5 mg. Patient seen PCP the above sx's and referred to Cardiology to be seen. No current sx's, last had these sx's 4 days ago. Uses [facility] in [place]. R: Referred to the ER for eval. Patient would also like to be seen in the office for eval. Patient understands care advice. No further needs at this time. Patient instructed to call back with new or worsening symptoms. Reason for Disposition [1] Shoulder pains with exertion (e.g., walking) AND [2] pain goes away on resting AND [3] not present now Protocols used: Shoulder [id number] documented in this [facility]11-12-2024 Telephone encounter Note* Telephone Encounter - Tosin Trevizo LPN - 06/11/2024 10:38 AM EST Patient notified. Verbalized understanding. [facility]11-12-2024 Miscellaneous Notes* Telephone Encounter - Tosin Trevizo LPN - 06/11/2024 10:38 AM EST Patient notified. Verbalized understanding. * Telephone Encounter - Fortunato Jurado APRN.CNP - 06/11/2024 9:47 AM EST Please let the patient know that his cholesterol panel is worse than prior. Not sure if it is secondary to running out of Zetia. Let's get have start taking his Zetia and Lipitor routinely and recheck cholesterol in 3 months prior to his next visit with his PCP team. Fortunatoterrie Jurado APRN.CNP documented in this [facility]11-[facility] Telephone encounter Note * Telephone Encounter - Fortunato Jurado APRN.CNP - 06/11/2024 9:47 AM EST Please let the patient know that his cholesterol panel is worse than prior. Not sure if it is secondary to running out of Zetia. Let's get have start taking his Zetia and Lipitor routinely and recheck cholesterol in 3 months prior to his next visit with his PCP team. Fortunato Jurado APRN.CNP [facility]11-12-2024 History of Present illness Narrative* Horace Martinez APRN - RENEE - 06/11/2024 9:30 AM EST Images from the original note were not included. [facility] - [address] [address] Dept: [phone] Dept Visit type: Established : 1955 Reason for Visit: Hospital Follow-up and Chest Pain Assessment and Plan MVCAD with history of PCI with episode of atypical chest pain and new left shoulder pain - Left shoulder pain x 1 month and one episode of chest pain. Patient reports vague symptoms with prior PCIs. His last stress test was in 2019 with no ischemia. He admits he has not been compliant with his statin therapy (states he has never taken it consistently). Blood pressure is low normal today, so unable to add anti-anginal therapy. At this time, I recommend we repeat a stress echocardiogram. He will continue ASA 81 mg daily, carvedilol 6.25 mg BID, atorvastatin 80 mg daily, and ezetimibe 10 mg daily. Patient advised to call sooner with new or worsening symptoms. Essential hypertension - Blood pressure is low normal today. Patient does not check his blood pressure at home. Repeat blood pressures in both arms are equal. Patient denies symptoms. At this time wewill hold his lisinopril. I have asked patient to purchase a home blood pressure monitor, keep a daily log, and bring to follow up appointment. I have reviewed goal <130/80 and asked he contact our office if he is consistently getting readings above this or if he continues to get low readings. Per my chart review, he has typically been in the 120s systolic at other office visits. Continue carvedilol 6.25 mg BID . Continue lifestyle interventions including dietary salt reduction, DASH diet, achieving and maintaining healthy weight, aerobic exercise at least 30 min daily most days of the week, no smoking, and no excessive alcohol use. Mixed hyperlipidemia - LDL 184 on 06/10/24; goal <70, ideally <55 per ESC guidelines. Patientadmits he has not been compliant with his statin. His PCP added ezetimibe 10 mg daily which he plans to picker and sorter load and unload today. Reviewed lipid panel drawn yesterday with patient, educated on lifestyle interventions to improve triglycerides, LDL and HDL. Continue atorvastatin 80 mg daily and ezetimibe 10 mg daily. Advised patient he needs to be on daily therapy for 3 months before we can repeat lipid panel. PAD (peripheral artery disease) - Patient following with [facility]. R > L DP pulses. Is to schedule further assessment of LLE. Continue ASA 81 mg daily, atorvastatin 80 mg daily, and ezetimibe 10 mg daily. Received records from [facility] following our visit today (scanned in media tab). Assessment and plan below: Follow up in about 1 month (around 07/11/2024). Subjective HPI Sharonda Flores is a 68 year old male, known to Dr. Tineo, with PMHx CAD (s/p several PCI, most recently 2011 - LAD, LCx, distal RCA with known PHYSICIAN NON INVASIVE CARDIOLOGIST D2), preserved LVEF (65%), HTN, HLD, PAD (follows with vascular at [facility]), prior tobacco use, pulmonary nodules, adenocarcinoma s/p RUL lobectomy 01/2024 (follows with pulmonology), and psoriasis. He contacted our office yesterday after presenting to [facility] over the weekend with right sided chest pain at rest with associated left shoulder/arm pain. He also noticed a acid taste in his mouth and leg weakness. He was recommended an urgent office visit. Sharonda Flores presents today in urgent ER follow up. His ER visit was prompted by a sharp pain in the center of his chest with left shoulder ache. He had associated diaphoresis and nausea. He has been having similar left shoulder ache without chest pain for the past month. This has been occurring both at rest and exertion. Episodes last 5 minutes or less. When symptoms occur with exertion, if he sits and rest they resolve within 5 min. If symptoms occur at rest, he goes and lays down and is able to go to sleep. These does not seem to be a discernable pattern or precipitating factor. He hasnot tried SL NTG. He also notes bilateral arm weakness with exertion (like when he was leaf blowing last week) and bilateral leg weakness. He was seen by [facility] 06/07/24 and states they found a problem in his left leg that he needs further testing for, right leg was clear. He denies claudication symptoms. He denies lightheadedness, dizziness, bleeding, and swelling. He notes prior injury to his left shoulder and he wonders if some of his symptoms are due to an orthopedic issues. At the time of his prior stenting, he does not recall every having chest pain, just felt unwell. Review of Systems Constitutional: Negative for chills, diaphoresis and fever. HENT: Negative for nosebleeds. Eyes: Negative for visual disturbance. Respiratory: Positive for shortness of breath (cold weather makes worse). Negative for chest tightness and wheezing. Cardiovascular: Positive for chest pain (left shoulder ache). Negative for palpitations and leg swelling. Gastrointestinal: Negative for abdominal pain, blood in stool and diarrhea. Genitourinary: Negative for hematuria. Musculoskeletal: Negative for myalgias. Neurological: Negative for dizziness, syncope and light-headedness. Hematological: Does not bruise/bleed easily. No Known Allergies Outpatient Medications Prior to Visit Medication Sig Dispense Refill aspirin 81 MG EC tablet Take 81 mg by mouth daily. atorvastatin (Lipitor) 80 MG tablet Take 1 tablet (80 mg) by mouth every evening. 90 tablet 3 carvedilol (Coreg) 6.25 MG tablet Take 1 tablet (6.25 mg) by mouth 2 times daily. 180 tablet 3 ezetimibe (Zetia) 10 MG tablet Take 10 mg by mouth in the morning. nitroglycerin (Nitrostat) 0.4 MG SL tablet DISSOLVE 1 TABLET UNDER THE TONGUE EVERY 5 MINUTES NEEDED. lisinopril 5 MG tablet Take 1 tablet (5 mg) by mouth daily. 90 tablet 0 No facility-administered medications prior to visit. Past Medical History: Diagnosis Date Arrhythmia v-fib/ arrest CAD (coronary artery disease) Hyperlipidemia [place], old Sleep apnea Social History Tobacco Use Smoking status: Former Current packs/day: 0.00 Types: Cigarettes Quit date: 08/17/2011 Years since quittin.8 Smokeless tobacco: Never Tobacco comments: Quit smoking: currently occ cigar Substance Use Topics Alcohol use: No Past Surgical History: Procedure Laterality Date CARDIAC PROCEDURE 03/15/2012 BMS mid dis RCA CARDIAC PROCEDURE 03/2012 REBECCA to mis dist LAD CARDIAC PROCEDURE 05/2012 REBECCA to prox LCx CORONARY ANGIOPLASTY 05/2012 circ, distal RCA, & LAD Family History Problem Relation Name Age of Onset Heart disease Father No Known Problems Mother Objective Vitals: 06/11/24 0903 06/11/24 0950 06/11/24 0951 BP: 90/52 98/58 98/52 BP Location: Left arm Left arm Right leg Patient Position: Sitting BP Cuff Size: Adult Pulse: 64 SpO2: 95% Weight: 157 lb 6.4 oz (71.4 kg) Height: 5' 5 (1.651 m) Physical Exam Constitutional: Appearance: Normal appearance. He is overweight. Cardiovascular: Rate and Rhythm: Normal rate and regular rhythm. Pulses: Radial pulses are 2+ on the right side and 2+ on the left side. Dorsalis pedis pulses are 2+ on the right side and 1+ on the left side. Heart sounds: Normal heart sounds. No murmur heard. No friction rub. Pulmonary: Effort: Pulmonary effort is normal. Breath sounds: Normal breath sounds and air entry. No wheezing, rhonchi or rales. Abdominal: General: Abdomen is flat. Bowel sounds are normal. Palpations: Abdomen is soft. Musculoskeletal: Right lower leg: No edema. Left lower leg: No edema. Skin: General: Skin is warm and dry. Capillary Refill: Capillary refill takes less than 2 seconds. Neurological: Mental Status: He is alert and oriented to person, place, and time. Psychiatric: Attention and Perception: Attention normal. Mood and Affect: Mood normal. Speech: Speech normal. Behavior: Behavior normal. Thought Content: Thought content normal. Data Reviewed and Summarized Review of tests/labs done/ordered within my specialty: EKG in office: SR; HR 64 TTE 11/06/2018 RAMAN Ozuna Nurse Practitioner in Interventional Cardiology [facility] - Cardiology documented in this [facility]11-12-2024 History of Present illness Narrative* SESAR Pierson CNP - 06/11/2024 9:30 AM EST Images from the original note were not included. [facility] - [address] [address] Dept: [phone] Dept Visit type: Established : 1955 Reason for Visit: Hospital Follow-up and Chest Pain Assessment and Plan MVCAD with history of PCI with episode of atypical chest pain and new left shoulder pain - Left shoulder pain x 1 month and one episode of chest pain. Patient reports vague symptoms with prior PCIs. His last stress test was in 2019 with no ischemia. He admits he has not been compliant with his statin therapy (states he has never taken it consistently). Blood pressure is low normal today, so unable to add anti-anginal therapy. At this time, I recommend we repeat a stress echocardiogram. He will continue ASA 81 mg daily, carvedilol 6.25 mg BID, atorvastatin 80 mg daily, and ezetimibe 10 mg daily. Patient advised to call sooner with new or worsening symptoms. Essential hypertension - Blood pressure is low normal today. Patient does not check his blood pressure at home. Repeat blood pressures in both arms are equal. Patient denies symptoms. At this time wewill hold his lisinopril. I have asked patient to purchase a home blood pressure monitor, keep a daily log, and bring to follow up appointment. I have reviewed goal <130/80 and asked he contact our office if he is consistently getting readings above this or if he continues to get low readings. Per my chart review, he has typically been in the 120s systolic at other office visits. Continue carvedilol 6.25 mg BID . Continue lifestyle interventions including dietary salt reduction, DASH diet, achieving and maintaining healthy weight, aerobic exercise at least 30 min daily most days of the week, no smoking, and no excessive alcohol use. Mixed hyperlipidemia - LDL 184 on 06/10/24; goal <70, ideally <55 per ESC guidelines. Patientadmits he has not been compliant with his statin. His PCP added ezetimibe 10 mg daily which he plans to picker and sorter load and unload today. Reviewed lipid panel drawn yesterday with patient, educated on lifestyle interventions to improve triglycerides, LDL and HDL. Continue atorvastatin 80 mg daily and ezetimibe 10 mg daily. Advised patient he needs to be on daily therapy for 3 months before we can repeat lipid panel. PAD (peripheral artery disease) - Patient following with [facility]. R > L DP pulses. Is to schedule further assessment of LLE. Continue ASA 81 mg daily, atorvastatin 80 mg daily, and ezetimibe 10 mg daily. Received records from [facility] ER following our visit today (scanned in media tab). Assessment and plan below: Follow up in about 1 month (around 07/11/2024). Subjective HPI Sharonda Flores is a 68 year old male, known to Dr. Tineo, with PMHx CAD (s/p several PCI, most recently 2011 - LAD, LCx, distal RCA with known PHYSICIAN NON INVASIVE CARDIOLOGIST D2), preserved LVEF (65%), HTN, HLD, PAD (follows with vascular at [facility]), prior tobacco use, pulmonary nodules, adenocarcinoma s/p RUL lobectomy 01/2024 (follows with pulmonology), and psoriasis. He contacted our office yesterday after presenting to [facility] over the weekend with right sided chest pain at rest with associated left shoulder/arm pain. He also noticed a acid taste in his mouth and leg weakness. He was recommended an urgent office visit. Sharonda Flores presents today in urgent ER follow up. His ER visit was prompted by a sharp pain in the center of his chest with left shoulder ache. He had associated diaphoresis and nausea. He has been having similar left shoulder ache without chest pain for the past month. This has been occurring both at rest and exertion. Episodes last 5 minutes or less. When symptoms occur with exertion, if he sits and rest they resolve within 5 min. If symptoms occur at rest, he goes and lays down and is able to go to sleep. These does not seem to be a discernable pattern or precipitating factor. He hasnot tried SL NTG. He also notes bilateral arm weakness with exertion (like when he was leaf blowing last week) and bilateral leg weakness. He was seen by [facility] 06/07/24 and states they found a problem in his left leg that he needs further testing for, right leg was clear. He denies claudication symptoms. He denies lightheadedness, dizziness, bleeding, and swelling. He notes prior injury to his left shoulder and he wonders if some of his symptoms are due to an orthopedic issues. At the time of his prior stenting, he does not recall every having chest pain, just felt unwell. Review of Systems Constitutional: Negative for chills, diaphoresis and fever. HENT: Negative for nosebleeds. Eyes: Negative for visual disturbance. Respiratory: Positive for shortness of breath (cold weather makes worse). Negative for chest tightness and wheezing. Cardiovascular: Positive for chest pain (left shoulder ache). Negative for palpitations and leg swelling. Gastrointestinal: Negative for abdominal pain, blood in stool and diarrhea. Genitourinary: Negative for hematuria. Musculoskeletal: Negative for myalgias. Neurological: Negative for dizziness, syncope and light-headedness. Hematological: Does not bruise/bleed easily. No Known Allergies Outpatient Medications Prior to Visit Medication Sig Dispense Refill aspirin 81 MG EC tablet Take 81 mg by mouth daily. atorvastatin (Lipitor) 80 MG tablet Take 1 tablet (80 mg) by mouth every evening. 90 tablet 3 carvedilol (Coreg) 6.25 MG tablet Take 1 tablet (6.25 mg) by mouth 2 times daily. 180 tablet 3 ezetimibe (Zetia) 10 MG tablet Take 10 mg by mouth in the morning. nitroglycerin (Nitrostat) 0.4 MG SL tablet DISSOLVE 1 TABLET UNDER THE TONGUE EVERY 5 MINUTES NEEDED. lisinopril 5 MG tablet Take 1 tablet (5 mg) by mouth daily. 90 tablet 0 No facility-administered medications prior to visit. Past Medical History: Diagnosis Date Arrhythmia v-fib/ arrest CAD (coronary artery disease) Hyperlipidemia [place], old Sleep apnea Social History Tobacco Use Smoking status: Former Current packs/day: 0.00 Types: Cigarettes Quit date: 08/17/2011 Years since quittin.8 Smokeless tobacco: Never Tobacco comments: Quit smoking: currently occ cigar Substance Use Topics Alcohol use: No Past Surgical History: Procedure Laterality Date CARDIAC PROCEDURE 03/15/2012 BMS mid dis RCA CARDIAC PROCEDURE 03/2012 REBECCA to mis dist LAD CARDIAC PROCEDURE 05/2012 REBECCA to prox LCx CORONARY ANGIOPLASTY 05/2012 circ, distal RCA, & LAD Family History Problem Relation Name Age of Onset Heart disease Father No Known Problems Mother Objective Vitals: 06/11/24 0903 06/11/24 0950 06/11/24 0951 BP: 90/52 98/58 98/52 BP Location: Left arm Left arm Right leg Patient Position: Sitting BP Cuff Size: Adult Pulse: 64 SpO2: 95% Weight: 157 lb 6.4 oz (71.4 kg) Height: 5' 5 (1.651 m) Physical Exam Constitutional: Appearance: Normal appearance. He is overweight. Cardiovascular: Rate and Rhythm: Normal rate and regular rhythm. Pulses: Radial pulses are 2+ on the right side and 2+ on the left side. Dorsalis pedis pulses are 2+ on the right side and 1+ on the left side. Heart sounds: Normal heart sounds. No murmur heard. No friction rub. Pulmonary: Effort: Pulmonary effort is normal. Breath sounds: Normal breath sounds and air entry. No wheezing, rhonchi or rales. Abdominal: General: Abdomen is flat. Bowel sounds are normal. Palpations: Abdomen is soft. Musculoskeletal: Right lower leg: No edema. Left lower leg: No edema. Skin: General: Skin is warm and dry. Capillary Refill: Capillary refill takes less than 2 seconds. Neurological: Mental Status: He is alert and oriented to person, place, and time. Psychiatric: Attention and Perception: Attention normal. Mood and Affect: Mood normal. Speech: Speech normal. Behavior: Behavior normal. Thought Content: Thought content normal. Data Reviewed and Summarized Review of tests/labs done/ordered within my specialty: EKG in office: SR; HR 64 TTE 11/06/2018 RAMAN Ozuna Nurse Practitioner in Interventional Cardiology [facility] - Cardiology documented in this [facility]11-12-2024 Instructions* Patient Instructions* SESAR Pierson CNP - 06/11/2024 9:30 AM EST Please obtain a blood pressure cuff for home monitoring. You can find these at any local pharmacy, [employer], etc. It should be an upper arm cuff as these are more accurate than wrist cuffs. Omron is a good brand and their standard cuff is around $40. When measuring your blood pressure, you should be sitting in a comfortable position, back and arm supported, feet flat on the floor, empty bladder, and relaxed for about 5 minutes before you take thereading. You want to wait 90-120 min after you have taken your blood pressure medications. You can take it before your medications if you would like to see where your blood pressure is starting, but we want to know what your blood pressure is with your medications on board so we know if your regimen is effec tive. Your blood pressure goal is to be less than 130 for the top number, and less than 80 for the bottomnumber. Do this daily, preferably around the same time each day, and keep a log. If you are consistently getting numbers above goal, contact our office, as we can potentially make adjustments over the phone or bring you in for a sooner appointment. Please bring this log to your follow up appointments. documented in this [facility]11-12-2024 Instructions* Patient Instructions* SESAR Pierson CNP - 06/11/2024 9:30 AM EST Please obtain a blood pressure cuff for home monitoring. You can find these at any local pharmacy, [employer], etc. It should be an upper arm cuff as these are more accurate than wrist cuffs. Omron is a good brand and their standard cuff is around $40. When measuring your blood pressure, you should be sitting in a comfortable position, back and arm supported, feet flat on the floor, empty bladder, and relaxed for about 5 minutes before you take thereading. You want to wait 90-120 min after you have taken your blood pressure medications. You can take it before your medications if you would like to see where your blood pressure is starting, but we want to know what your blood pressure is with your medications on board so we know if your regimen is effec tive. Your blood pressure goal is to be less than 130 for the top number, and less than 80 for the bottomnumber. Do this daily, preferably around the same time each day, and keep a log. If you are consistently getting numbers above goal, contact our office, as we can potentially make adjustments over the phone or bring you in for a sooner appointment. Please bring this log to your follow up appointments. documented in this encounterSAultman Orrville [id number] Telephone encounter Note* Telephone Encounter - Selene Marinelli - 06/11/2024 9:07 AM EST Requested ED records. [id number] Telephone encounter Note* Telephone Encounter - Joanna Nunez RN - 06/10/2024 2:59 PM EST Spoke with patient and scheduled appt tomorrow Gerri Martinez APRN [place] [id number] Miscellaneous Notes* Telephone Encounter - Joanna Nunez RN - 06/10/2024 2:59 PM EST Spoke with patient and scheduled appt tomorrow Gerri Martinez APRN * Telephone Encounter - SESAR Pierson CNP - 06/10/2024 2:43 PM EST Chart and message reviewed. Agree with sooner follow up. I have openings tomorrow if patient is available. * Telephone Encounter - Joanna Nunez RN - 06/10/2024 2:17 PM EST Spoke with patient and reviewed below. Patient denies any chest pain since ER visit yesterday. States he will intermittently have left/right shoulder pain for a few months. Denies any associated chest pain, SOB, lightheadedness. Patient able to complete ADLs and walk up flight of stairs without difficulty. Denies lifting anything heavy to cause shoulder pain. States 50 years ago he dislocated left shoulder. When he went to ER, provider mentioned possible outpatient stress test per cardiology follow-up. Gerri Martinez APRN to review and advise. * Telephone Encounter - Joanna Nunez RN - 06/10/2024 10:16 AM EST Chart reviewed, [facility] Dr. Tineo 01/16/24. History of several PCI, 2011, doing well at time of visit and PAD following vascular at [facility]. PCP visit today, patient went to [place] ER yesterday for right sided chest pain, lasting few seconds occurring at rest. Associated with random episodes of left shoulder, arm pain. Also had funny acid taste in mouth with feeling weak in legs when walking. ER cardiac work-up negative. Denies having chest or arm pain when exerting self and denied chest pain today. PCP recommended follow-up cardiology and exam seems more musculoskeletal. Advised patient to follow-up with vascular as well. Patient also follows with pulmonology s/p RUL lobectomy for adenocarcinoma 01/2024, patient described having intermittent neuropathic pain at that time. Left message for patient to discuss. Deann Marinelli to obtain [place] ER notes. * Telephone Encounter - Velia Morgan RN - 06/08/2024 6:29 AM EST S: Patient spoke with [facility] nurse regarding meds refill s and an appointment request. B: Onset of symptoms on and off for several months. [facility] 01/21. A: L shoulder is aching and nausea, cold sweats, no chest pain, after walking his legs couldn't hold him up and after setting down for a few seconds everything comes back, sometimes gets a funny taste in the mouth, sometimes gets a headache. Sx's come and go and are getting worse. Needs Cavedilol 6.25 mg, Lisinopril 5 mg. Patient seen PCP the above sx's and referred to Cardiology to be seen. No current sx's, last had these sx's 4 days ago. Uses [facility] [place]. R: Referred to the ER for eval. Patient would also like to be seen in the office for eval. Patient understands care advice. No further needs at this time. Patient instructed to call back with new or worsening symptoms. Reason for Disposition [1] Shoulder pains with exertion (e.g., walking) AND [2] pain goes away on resting AND [3] not present now Protocols used: Shoulder [id number] documented in this [facility]11-11-2024 Telephone encounter Note* Telephone Encounter - SESAR Pierson CNP - 06/10/2024 2:43 PM EST Chart and message reviewed. Agree with sooner follow up. I have openings tomorrow if patient is available. [facility] Phone: 1(276) 995-669811-11-2024 Telephone encounter Note* Telephone Encounter - Joanna Nunez RN - 06/10/2024 2:17 PM EST Spoke with patient and reviewed below. Patient denies any chest pain since ER visit yesterday. States he will intermittently have left/right shoulder pain for a few months. Denies any associated chest pain, SOB, lightheadedness. Patient able to complete ADLs and walk up flight of stairs without difficulty. Denies lifting anything heavy to cause shoulder pain. States 50 years ago he dislocated left shoulder. When he went to ER, provider mentioned possible outpatient stress test per cardiology follow-up. Gerri Martinez APRN to review and advise. [facility] [id number] Telephone encounter Note* Telephone Encounter - Joanna Nunez RN - 06/10/2024 10:16 AM EST Chart reviewed, [facility] Dr. Tineo 01/16/24. History of several PCI, 2011, doing well at time of visit and PAD following vascular at [facility]. PCP visit today, patient went to [place] ER yesterday for right sided chest pain, lasting few seconds occurring at rest. Associated with random episodes of left shoulder, arm pain. Also had funny acid taste in mouth with feeling weak in legs when walking. ER cardiac work-up negative. Denies having chest or arm pain when exerting self and denied chest pain today. PCP recommended follow-up cardiology and exam seems more musculoskeletal. Advised patient to follow-up with vascular as well. Patient also follows with pulmonology s/p RUL lobectomy for adenocarcinoma 01/2024, patient described having intermittent neuropathic pain at that time. Left message for patient to discuss. Deann Marinelli to obtain [place] ER notes. [facility] [id number] Instructions* Patient Instructions* Fortunato Jurado APRN.CNP - 06/10/2024 7:07 AM EST Pipo sent Get cholesterol panel Call electrostatic powder coating technician to follow up Continue to follow with vascular medicine If you get chest pain or pass, you go back to the ER. See Dr. Tello is back in 3 months. Fortunato Jurado APRN.CNP documented [facility] History of Present illness Narrative* Fortunato Jurado APRN.CNP - 06/10/2024 7:00 AM EST Chief Complaint Patient presents with: Follow Up: 3 month ER f/u Monday, minor chest pain, left arm pain, bad taste. Went to [facility] HPI Sharonda Flores is a 68 year old male who presents here today for Chronic Medical Conditions. Patient is here for 3-month follow-up. Taking medications as prescribed. Following with pulmonology/oncology for history of malignant neoplasm of the right upper lobe of the lung. Following with vascular [facility] for PAD. Mentions that he went to the emergency room yesterday for right-sided chest pain. Went to [facility]. Troponin is negative. CMP,CBC normal. Chest x-ray normal. History of stents x 4. Was having a brief episode of right- sided nonpleuritic chest pain, lasted for a few seconds, felt sharp. Occurred at rest. Was concerned as he had been having random episodes of left shoulder, arm pain. Described as muscle pain as it hurts when that left arm is moved. Also had a funny taste in his mouth like acid also complaining of feeling weak in the legs when walking at times. This has been going on for a few weeks. Patient denied having any arm discomfort or chest pain when he was exerting hi mself/walking. He is calling his electrostatic powder coating technician today for follow up. Today, he is without chest pain or dizziness Past medical history, appointments, medications, allergies reviewed. EXAM: BP (P) 120/76 Pulse (P) 78 Resp (P) 16 Wt (P) 71.7 kg (158 lb) SpO2 (P) 98% BMI (P) 24.80kg/m General Appearance: Well appearing, alert, in no acute distress, well-hydrated, well nourished.. Lungs: Lungs clear to auscultation. No wheezing, rhonchi, rales.. Heart: RRR without murmur, gallop, or rubs. No ectopy. M/S: Mild to moderate left upper trapezius tenderness, radiating down the left scapular region. ASSESSMENT/PLAN: 1. Mixed hyperlipidemia - ICD9: 272.2, ICD10: E78.2 (primary diagnosis) - Control undetermined, due for labs - Continue current medications - Counseled on healthy diet and regular exercise - LIPID PANEL BASIC 2. Essential hypertension - ICD9: 401.9, ICD10: I10 - Controlled - Continue current medications - Recommend home blood pressure monitoring, to bring results to next visit - Encouraged sodium restriction, DASH or Mediterranean diet - Recommend regular aerobic exercise 3. PAD (peripheral artery disease) (HCC) - ICD9: 443.9, ICD10: I73.9 -Continue with plan to follow-up with [facility]. 4. Coronary artery disease involving chilkoot coronary artery of chilkoot heart without angina pectoris- ICD9: 414.01, ICD10: I25.10 -No current complaints of chest pain. He will make an appointment to follow-up with his electrostatic powder coating technician. I provided some reassurance that some of his symptoms were at rest. Exam seems to be more musculoskeletal origin. Discussed back to the ER for chest pain or syncope. Fortunato Jurado APRN.CNP RTO in 3 months, sooner if needed. This note was partly generated using Tune[employer] voice recognition dictation and may contain some misspelled or inaccurate words missed on review. documented in this encounterAdena [facility]11-11-2024 NoteHNO ID: [id number] Author: FORTUNATO JURADO APRN.CNP Service: ? Author Type: Nurse Practitioner Type: Progress Notes Filed: 06/11/2024 09:47 Note Text: Chief Complaint Patient presents with: Follow Up: 3 month ER f/u Monday, minor chest pain, left arm pain, bad taste. Went to [facility] HPI Sharonda Flores is a 68 year old male who presents here today for Chronic Medical Conditions. Patient is here for 3-month follow-up. Taking medications as prescribed with the exception of Zetia. Not sure if he has it at home. Following with pulmonology/oncology for history of malignant neoplasm of the right upper lobe of the lung. Following with vascular [facility] for PAD. Mentions that he went to the emergency room yesterday for right-sided chest pain. Went to [facility]. Troponin is negative. CMP,CBC normal. Chest x-ray normal. History of stents x 4. Was having a brief episode of right-sided nonpleuritic chest pain, lasted for a few seconds, felt sharp. Occurred at rest. Was concerned as he had been having random episodes of left shoulder, arm pain. Described as muscle pain as it hurts when that left arm is moved. Also had a funny taste in his mouth like acid also complaining of feeling weak in the legs when walking at times. This has been going on for a few weeks. Patient denied having any arm discomfort or chest pain when he was exerting himself/walking. He is calling his electrostatic powder coating technician today for follow up. Today, he is without chest pain or dizziness Past medical history, appointments, medications, allergies reviewed. EXAM: BP (P) 120/76 Pulse (P) 78 Resp (P) 16 Wt (P) 71.7 kg (158 lb) SpO2 (P) 98% BMI (P) 24.80 kg/m? General Appearance: Well appearing, alert, in no acute distress, well-hydrated, well nourished.. Lungs: Lungs clear to auscultation. No wheezing, rhonchi, rales.. Heart: RRR without murmur, gallop, or rubs. No ectopy. M/S: Mild to moderate left upper trapezius tenderness, radiating down the left scapular region. ASSESSMENT/PLAN: 1. Mixed hyperlipidemia - ICD9: 272.2, ICD10: E78.2 (primary diagnosis) - Control undetermined, due for labs - Continue current medications - Counseled on healthy diet and regular exercise - LIPID PANEL BASIC 2. Essential hypertension - ICD9: 401.9, ICD10: I10 - Controlled - Continue current medications - Recommend home blood pressure monitoring, to bring results to next visit - Encouraged sodium restriction, DASH or Mediterranean diet - Recommend regular aerobic exercise 3. PAD (peripheral artery disease) (HCC) - ICD9: 443.9, ICD10: I73.9 -Continue with plan to follow-up with [facility]. 4. Coronary artery disease involving chilkoot coronary artery of chilkoot heart without angina pectoris - ICD9: 414.01, ICD10: I25.10 -No current complaints of chest pain. He will make an appointment to follow-up with his electrostatic powder coating technician. I provided some reassurance that some of his symptoms were at rest. Exam seems to be more musculoskeletal origin. Discussed back to the ER for chest pain or syncope. Fortunato Jurado APRN.DISASTER RECOVERY MANAGER RTO in 3 months, sooner if needed. This note was partly generated using TuneGO voice recognition dictation and may contain some misspelled or inaccurate words missed on review.[facility]11-09-[facility] Telephone encounter Note* Telephone Encounter - Velia Morgan RN - 06/08/2024 6:29 AM EST S: Patient spoke with [facility] nurse regarding meds refill s and an appointment request. B: Onset of symptoms on and off for several months. [facility] 01/21. A: L shoulder is aching and nausea, cold sweats, no chest pain, after walking his legs couldn't hold him up and after setting down for a few seconds everything comes back, sometimes gets a funny taste in the mouth, sometimes gets a headache. Sx's come and go and are getting worse. Needs Cavedilol 6.25 mg, Lisinopril 5 mg. Patient seen PCP the above sx's and referred to Cardiology to be seen. No current sx's, last had these sx's 4 days ago. [facility] [place]. R: Referred to the ER for eval. Patient would also like to be seen in the office for eval. Patient understands care advice. No further needs at this time. Patient instructed to call back with new or worsening symptoms. Reason for Disposition [1] Shoulder pains with exertion (e.g., walking) AND [2] pain goes away on resting AND [3] not present now Protocols used: Shoulder [id number] Funky [id number] Miscellaneous Notes* Telephone Encounter - Velia Morgan RN - 06/08/2024 6:29 AM EST S: Patient spoke with [facility] nurse regarding meds refill s and an appointment request. B: Onset of symptoms on and off for several months. [facility] 01/21. A: L shoulder is aching and nausea, cold sweats, no chest pain, after walking his legs couldn't hold him up and after setting down for a few seconds everything comes back, sometimes gets a funny taste in the mouth, sometimes gets a headache. Sx's come and go and are getting worse. Needs Cavedilol 6.25 mg, Lisinopril 5 mg. Patient seen PCP the above sx's and referred to Cardiology to be seen. No current sx's, last had these sx's 4 days ago. [facility]ses [facility] [place]. R: Referred to the ER for eval. Patient would also like to be seen in the office for eval. Patient understands care advice. No further needs at this time. Patient instructed to call back with new or worsening symptoms. Reason for Disposition [1] Shoulder pains with exertion (e.g., walking) AND [2] pain goes away on resting AND [3] not present now Protocols used: Shoulder [id number] documented in this [facility]10-22-2024 History of Present illness Narrative* Jazmyn Mas MD - 05/21/2024 8:45 AM EDT Images from the original note were not included. . Respiratory Dolphin Note Patient name: Sharonda Flores PCP: Tima Tello MD Referring Physician: Shaylee Woods CC: Lung cancer HPI: Sharonda Flores 68 year old male former 37 pack year smoker, quitting in 2010 with PMH significant for CAD s/p stents, PAD, psoriasis, pulmonary nodules, adenocarcinoma of lung s/p RUL lobectomy 01/2024, patient is [place] to [place] Participating in lung cancer screening program, multiple pulmonary nodules with note of an enlarging RUL semisolid nodule. EBUS biopsy did not show definitive cancer. Status post right upper lobectomy with final pathologic stage [id number]. No chemotherapy or radiation. Being seen by oncology with plans for active surveillance. He presents today for evaluation of his underlying lung disease. He denies any significant shortness of breath, chronic cough, mucus production, wheezing. No history of recurrent bronchitis or pneumonia. His preoperative pulmonary function testing was only pertinent for air trapping. Overall he states he has been doing fairly well postsurgery but is having some intermittent neuropathic pain. He is able to do more without chest pain. Has not been able to sleep on his right side. He is scheduled for surveillance CT in August. No other concerning respiratory issues. DATA: PFT 11/2023: Review pulmonary function testing shows air trapping Labs: Component Ref Range & Units TPS Interpretation High Positive (greater than or equal to 50%) (Lung) Abnormal Tumor Proportion Score (TPS) 60 Imaging / Diagnostic Studies: DATE OF EXAM: Dec 13 2023 8:37AM [facility] 0541 - CT CHEST WO IVCON / CLINICAL HISTORY: Lung nodule. Comparison: CT chest on 03/03/2024 RESULT: Limitations: None. Lines, tubes, and devices: None. Lung parenchyma and airways: The central airways are patent. A few stable right lung nodules identified. For example, there is a 10 mm nodule in the posterior right upper lobe, series 6 image 53. More medially in the right upper lobe, seen is a 4 mm nodule, series 6 image 147. A 2.5 mm nodule is also noted in the right upper lobe, series 6 image 131. Similar groundglass opacities demonstrated in the posterior right upper lobe, series 6 images 139-162. Also seen are scattered tiny nodules in thebilateral lungs. No definite new nodules identified. No consolidations. There are large pericardialfat pads. Pleural space: No pleural effusion. No pleural thickening. Lower neck, lymph nodes, and mediastinum: The imaged thyroid gland is normal. No lymphadenopathy inthe supraclavicular, axillary, mediastinal, or hilar regions. Heart, pericardium, and thoracic vessels: The thoracic aorta and main pulmonary artery are normal in caliber. There are atherosclerotic calcifications in the thoracic aorta. The cardiac chambers are normal in size. Linear and punctate coronary artery atherosclerotic calcifications are noted, although the study is not optimized for coronary assessment. No pericardial effusion or thickening. Bones and soft tissues: No destructive bone lesion. Chest wall soft tissue is unremarkable. Upper abdomen: No abnormality in the imaged upper abdomen. Localizer images: No additional findings. IMPRESSION: Stable right lung nodules and groundglass opacities. No definite new nodules identified. I personally reviewed the images which pertinent for a semisolid right upper lobe nodule with solidcomponent concerning for bronchogenic carcinoma PAST MEDICAL HISTORY Diagnosis Date Abdominal aortic aneurysm (AAA) without rupture (HCC) 3 x 3.1 cm 05/2021, repeat 1 year. Benign neoplasm of colon Coronary artery disease involving chilkoot coronary artery of chilkoot heart without angina pectoris Dr. Tineo Essential hypertension Heart attack (HCC) 2011 s/p stents History of tobacco use HLD (hyperlipidemia) Multiple lung nodules on CT 11/09/2023 PET scan ordered PAD (peripheral artery disease) (HCC) 04/04/2024 Mild to moderate disease LLE on LINH Primary lung adenocarcinoma, right (HCC) RUL,s/p 02/09/24 flexible bronchoscopy, right VATS, right upper lobe wedge resection, cryo nerve block, mediastinal lymph node dissection Psoriasis [facility] S/P lobectomy of lung Thrombocytopenia (HCC) Tinnitus of both ears ALLERGIES Allergen Reactions Penicillins Hives atorvastatin (LIPITOR) 80 mg tablet Take 1 tablet by mouth daily at bedtime. For cholesterol. nitroglycerin sublingual (NITROQUICK) 0.4 mg SL tablet Dissolve 1 tablet under the tongue every 5 minutes as needed. Aspirin 81 mg Tab Take 81 mg by mouth once daily. carvedilol (COREG) 6.25 mg tablet Take 6.25 mg by mouth two times a day with meals. lisinopril (ZESTRIL) 5 mg tablet Take 5 mg by mouth once daily. iv contrast (will be provided with radiology test) CT Chest W -Inject, intravenously, once for 1 dose.No IV access, insert saline lock prior to the beginning of sedation, infusion, injection of imaging exam. Discontinue saline lock post exam. If Pt. has a central line or IVAD, may access for administration according to line specific nursing protocol. Once exam is complete flush line and de-accessaccording to line specific nursing protocol in the CT contrast administration guidelines link. (Patient not taking: Reported on 05/01/2024) ezetimibe (ZETIA) 10 mg tablet Take 1 tablet by mouth once daily. Social History Tobacco Use Smoking status: Former Current packs/day: 0.00 Average packs/day: 1.5 packs/day for 25.0 years (37.5 ttl pk-yrs) Types: Cigarettes Start date: 01/24/1986 Quit date: 01/24/2011 Years since quittin.3 Smokeless tobacco: Never Vaping Use Vaping status: Never Used Substance Use Topics Alcohol use: Not Currently Drug use: Yes Types: Marijuana Comment: Twice a month FAMILY HISTORY Problem Relation Age of Onset Breast Cancer Mother Heart Father details uncertain; ? h/o rheumatic fever Stroke Father details uncertain No Known Problems Brother No Known Problems Daughter No Known Problems Daughter No Known Problems Son No Known Problems Son No Known Problems Maternal Grandmother No Known Problems Maternal Grandfather No Known Problems Paternal Grandmother No Known Problems Paternal Grandfather Diabetes Other none Colon Cancer Other none Prostate Cancer Other none Anesthesia Problems No Family History PAST SURGICAL HISTORY Procedure Laterality Date COLONOSCOPY FLX DX W/COLLJ SPEC WHEN PFRMD 10/08/2008 Colonoscopy COLONOSCOPY FLX DX W/COLLJ SPEC WHEN PFRMD 08/03/2021 repeat in 10 years EXTRACTION, ERUPTED TOOTH OR EXPOSED ROOT (ELEVATION AND/OR FORCEPS REMOVAL) wisdom HEART CATHETERIZATION 2012 stent x 4 HEART SURGERY HX LUNG SURGERY HX Right 02/09/2024 right VATS Right Upper lobe Lung resection PAST SURGICAL HISTORY OF age 6 appendectomy, no rupture PAST SURGICAL HISTORY OF Right 09/2021 cyst removal from chest wall PT [facility] 2012 TONSILLECTOMY HX TONSILLECTOMY PRIMARY/SECONDARY <AGE 12 tonsillectomy PMH, Social history, family history and surgical history reviewed and updated in EMR REVIEW OF SYSTEMS: CONSTITUTIONAL: No fevers, chills, nightsweats, unintended weight loss HEENT: Denies nasal congestion/sinus symptoms, allergy problems. EYES: No visual changes CARDIOVASCULAR: No chest pain, dyspnea, palpitations, orthopnea, edema. PULM: See HPI GI: No dysphagia/odynophagia, problematic reflux NEURO: No new balance problems, peripheral weakness/paresthesias or numbness of concern. Dizziness MUSC-SKEL: No joint pain, swelling, or erythema. Lower extremity weakness PSY: No concerns regarding depression, anxiety INTEGUMENTARY: No new skin changes PHYSICAL EXAMINATION: BP 102/60 Pulse 74 Temp (Src) 97.7 (Temporal) Wt 161 lb (73.0kg) SpO2 96% General Appearance: Age appropriate male, NAD. Skin: Skin color, texture, turgor normal, no suspicious rashes or lesions. Head: Normocephalic, no masses, lesions, tenderness or abnormalities. Eyes: Sclera, conjunctiva normal has. Oropharynx: No oral lesions. Neck: No JVD, no masses, no adenopathy. Lungs: Not labored, normal to percussion, no wheezes,or crackles Heart: Regular rate and rhythm, no murmurs or gallops. Extremities: No edema clubbing. Assessment/Plan: 1. Lung cancer right upper lobe -Stage IA adenocarcinoma of the lung status post resection. No need for chemotherapy -Active surveillance for 5 years per oncology -Follow-up after chest CT in August 2. Former cigarette smoker -Former smoker with sequelae of lung cancer -Continued abstinence 3. Pulmonary air-trapping -No significant COPD despite smoking history -Patient has no pulmonary symptoms so will hold on initiating inhaled therapy Jazmyn Mas MD [facility] Telephone encounter Note * Telephone Encounter - Shaylee Ochoa LPN - 05/14/2024 3:17 PM EDT [facility] and advised neither Dr Tello Or Dr Dumont noted any contraindications with medication. She stated she would update Dr Valderrama. Contacted patient and updated him aswell. Shaylee Ochoa LPN [facility]10-15-2024 Miscellaneous Notes* Telephone Encounter - Shaylee Ochoa LPN - 05/14/2024 3:17 PM EDT [facility] and advised neither Dr Tello Or Dr Dumont noted any contraindications with medication. She stated she would update Dr Valderrama. Contacted patient and updated him aswell. Shaylee Ochoa LPN * Telephone Encounter - Analy Dumont DO - 05/14/2024 12:41 PM EDT No contraindication for Cosentyx given history of lung cancer. Analy Dumont DO * Telephone Encounter - Tima Tello MD - 05/14/2024 10:55 AM EDT I am not seeing a contraindication for history of lung cancer or lung nodules for Cosentyx. I will forward this message to his oncologist to see if they have concerns with him starting this medication now. * Telephone Encounter - Jocelyn Dumont RN - 05/14/2024 9:54 AM EDT Patient calls to report that Dr. Jose Hassan with [facility] would like to place patient on Cosentyx for psoriasis but given his history of lung nodules and cancer Dr. Hassan wanted him to check with PCP to see if that would be ok for him to be prescribed. Contact number for patient: [phone] Contact number for [facility]: [phone] Jocelyn Dumont RN documented in this encounterA[facility]10-[facility]24 Telephone encounter Note * Telephone Encounter - Analy Dumont DO - 05/14/2024 12:41 PM EDT No contraindication for Cosentyx given history of lung cancer. Analy Dumont DO [facility]10-[facility] Telephone encounter Note* Telephone Encounter - Tima Tello MD - 05/14/2024 10:55 AM EDT I am not seeing a contraindication for history of lung cancer or lung nodules for Cosentyx. I will forward this message to his oncologist to see if they have concerns with him starting this medication now. [facility] Telephone encounter Note* Telephone Encounter - Jocelyn Dumont RN - 05/14/2024 9:54 AM EDT Patient calls to report that Dr. Jose Hassan with [facility] would like to place patient on Cosentyx for psoriasis but given his history of lung nodules and cancer Dr. Hassan wanted him to check with PCP to see if that would be ok for him to be prescribed. Contact number for patient: [phone] Contact number for [facility]: [phone] Jocelyn Dumont RN [facility]10-07-[facility] Telephone encounter Note* Telephone Encounter - Monique Reilly LPN - 05/06/2024 4:51 PM EDT Patient calling he said he phoned [facility] and they did not have his referral information. Patient said he wanted to see Vascular at [facility], Told him [facility], he did not have phonenumber or fax number. Phoned [phone] and fax number is [phone]. Printed face sheet, referral, office notes, xray and testing faxed as requested. [facility] Miscellaneous Notes* Telephone Encounter - Monique Reilly LPN - 05/06/2024 4:51 PM EDT Patient calling he said he phoned [facility] and they did not have his referral information. Patient said he wanted to see Vascular at [facility], Told him [facility], he did not have phonenumber or fax number. Phoned [phone] and fax number is [phone]. Printed face sheet, referral, office notes, xray and testing faxed as requested. documented in this encounterAdena [facility]10-07-2024 History of Present illness Narrative* Alejandra Viramontes APRN.DISASTER RECOVERY MANAGER - 05/06/2024 3:15 PM EDT 05/06/2024 Patient presents with: Follow Up SUBJECTIVE: This is a 68 year old that is here today for Above Complaints. Seen in [facility] on 05/01/2024 for left lower extremity leg wound with redness, swelling and drainage. Apparent spider bite. Wound Culture obtained and started on Doxycyline and Keflex. Followed up on 05/03/2024 for recheck with some improvement. Final culture was pending. Completed his five day course of Doxycycline and Keflex. Still with some drainage last night when he scrubbed it. Denies fevers, chills, increasing redness, warmth, tenderness or red streaking PAST MEDICAL HISTORY Diagnosis Date Abdominal aortic aneurysm (AAA) without rupture (HCC) 3 x 3.1 cm 05/2021, repeat 1 year. Benign neoplasm of colon Coronary artery disease involving chilkoot coronary artery of chilkoot heart without angina pectoris Dr. Tineo Essential hypertension Heart attack (HCC) 2011 History of tobacco use Multiple lung nodules on CT 11/09/2023 PET scan ordered PAD (peripheral artery disease) (HCC) 04/04/2024 Mild to moderate disease LLE on LINH Primary lung adenocarcinoma, right (HCC) RUL,s/p 02/09/24 flexible bronchoscopy, right VATS, right upper lobe wedge resection, cryo nerve block, mediastinal lymph node dissection Psoriasis [facility] S/P lobectomy of lung Thrombocytopenia (HCC) Tinnitus of both ears ALLERGIES Penicillins MEDICATIONS Current Outpatient Medications Medication Sig cephALEXin (KEFLEX) 500 mg capsule Take 1 capsule by mouth three times a day for 5 days. doxycycline (VIBRA-TABS) 100 mg tablet Take 1 tablet by mouth two times a day for 5 days. iv contrast (will be provided with radiology test) CT Chest W -Inject, intravenously, once for 1 dose.No IV access, insert saline lock prior to the beginning of sedation, infusion, injection of imaging exam. Discontinue saline lock post exam. If Pt. has a central line or IVAD, may access for administration according to line specific nursing protocol. Once exam is complete flush line and de-accessaccording to line specific nursing protocol in the CT contrast administration guidelines link. (Patient not taking: Reported on 05/01/2024) atorvastatin (LIPITOR) 80 mg tablet Take 1 tablet by mouth daily at bedtime. For cholesterol. ezetimibe (ZETIA) 10 mg tablet Take 1 tablet by mouth once daily. nitroglycerin sublingual (NITROQUICK) 0.4 mg SL tablet Dissolve 1 tablet under the tongue every 5 minutes as needed. Aspirin 81 mg Tab Take 81 mg by mouth once daily. carvedilol (COREG) 6.25 mg tablet Take 6.25 mg by mouth two times a day with meals. lisinopril (ZESTRIL) 5 mg tablet Take 5 mg by mouth once daily. No current facility-administered medications for this visit. Medications and allergies reviewed by this provider. SOCIAL HISTORY Social History Tobacco Use Smoking status: Former Current packs/day: 0.00 Average packs/day: 1.5 packs/day for 25.0 years (37.5 ttl pk-yrs) Types: Cigarettes Start date: 01/24/1986 Quit date: 01/24/2011 Years since quittin.2 Smokeless tobacco: Never Vaping Use Vaping status: Never Used Substance Use Topics Alcohol use: Not Currently Drug use: Yes Types: Marijuana Comment: Twice a month REVIEW OF SYSTEMS All other reviewed and negative other than HPI. OBJECTIVE: BP 92/58 Pulse 73 Resp 16 Wt 72.7 kg (160 lb 4.4 oz) SpO2 94% BMI 25.16 kg/m . Vital signs reviewed by this provider. APPEARANCE Well appearing, alert, in no acute distress, well-hydrated, well nourished. SKIN: medial aspect left lower leg approximately 3 cm x 3 cm semi-firm area of mild erythema with scab to center. No excessive warmth, tenderness or active drainage BP Controlled (<130/80) Never done Influenza Vaccine(1) Never done Covid-19 Vaccine(3 - season) due on 03/31/2024 DTaP,Tdap,Td Vaccine(1 - Tdap) due on 06/09/2024 RSV Vaccine(1 - Risk 60-74 years 1-dose series) due on 06/09/2024 Shingrix Vaccine(1 of 2) due on 06/09/2024 Pneumococcal Vaccine: 65+(1 of 1 - PCV) due on 06/09/2024 LDL Cholesterol due on 11/28/2024 Depression Screening due on 12/07/2024 Anxiety Screening due on 12/07/2024 Annual PCP Team Chronic Disease Visit due on 05/03/2025 Prostate Cancer Screening Discussion due on 05/07/2026 Diabetes Screening due on 02/09/2027 Lipid Screening due on 11/28/2028 Colorectal Cancer Screening due on 08/03/2031 Abdominal Aortic Aneurysm Screening Completed Advance Directive Discussion Completed Hepatitis C Screening Completed HPV Vaccine Aged Out ASSESSMENT/PLAN: 1. Left leg cellulitis - ICD9: 682.6, ICD10: L03.116 - improving - will have him complete an additional five days since he still has some redness and swelling - no red flag symptoms or exam findings - red flags symptoms discussed, verbalizes understanding - DOXYCYCLINE HYCLATE 100 MG TABLET - follow-up if fails to resolve to ER with red flag symptoms Alejandra Viramontes APRN.CNP Prescription instructions reviewed with patient as applicable. Patient advised if symptoms do not improve or if symptoms worsen sooner, to contact their primary care physician. Potential red flag symptoms discussed with the patient. Reviewed appropriate action plan to take if red flag symptoms occur. Patient agreeable to treatment plan. Medical Decision Making: Problems: Low: Acute, uncomplicated illness or injury Risk: Moderate: Drug management Medical Decision Making Level: 3 - Low documented in this encounterA[facility]10-04-2024 History of Present illness Narrative* Alejandra Viramontes APRN.CNP - 05/03/2024 11:40 AM EDT 05/03/2024 Patient presents with: Follow Up: Left lower extremity spider bite SUBJECTIVE: This is a 68 year old that is here today for Above Complaints. Seen in [facility] on 05/01/2024 for left lower extremity leg wound with redness, swelling and drainage. Apparent spider bite. Wound Culture obtained and started on Doxycyline and Keflex. Taking and tolerating without side effects. Per patient has noted some improvement. Denies fevers, chills, increasing redness, warmth, swelling, pain or drainage PAST MEDICAL HISTORY Diagnosis Date Abdominal aortic aneurysm (AAA) without rupture (HCC) 3 x 3.1 cm 05/2021, repeat 1 year. Benign neoplasm of colon Coronary artery disease involving chilkoot coronary artery of chilkoot heart without angina pectoris Dr. Tineo Essential hypertension Heart attack (HCC) 2011 History of tobacco use Multiple lung nodules on CT 11/09/2023 PET scan ordered PAD (peripheral artery disease) (HCC) 04/04/2024 Mild to moderate disease LLE on LINH Primary lung adenocarcinoma, right (HCC) RUL,s/p 02/09/24 flexible bronchoscopy, right VATS, right upper lobe wedge resection, cryo nerve block, mediastinal lymph node dissection Psoriasis [facility] S/P lobectomy of lung Thrombocytopenia (HCC) Tinnitus of both ears ALLERGIES Penicillins MEDICATIONS Current Outpatient Medications Medication Sig cephALEXin (KEFLEX) 500 mg capsule Take 1 capsule by mouth three times a day for 5 days. doxycycline (VIBRA-TABS) 100 mg tablet Take 1 tablet by mouth two times a day for 5 days. iv contrast (will be provided with radiology test) CT Chest W -Inject, intravenously, once for 1 dose.No IV access, insert saline lock prior to the beginning of sedation, infusion, injection of imaging exam. Discontinue saline lock post exam. If Pt. has a central line or IVAD, may access for administration according to line specific nursing protocol. Once exam is complete flush line and de-accessaccording to line specific nursing protocol in the CT contrast administration guidelines link. (Patient not taking: Reported on 05/01/2024) atorvastatin (LIPITOR) 80 mg tablet Take 1 tablet by mouth daily at bedtime. For cholesterol. ezetimibe (ZETIA) 10 mg tablet Take 1 tablet by mouth once daily. nitroglycerin sublingual (NITROQUICK) 0.4 mg SL tablet Dissolve 1 tablet under the tongue every 5 minutes as needed. Aspirin 81 mg Tab Take 81 mg by mouth once daily. carvedilol (COREG) 6.25 mg tablet Take 6.25 mg by mouth two times a day with meals. lisinopril (ZESTRIL) 5 mg tablet Take 5 mg by mouth once daily. No current facility-administered medications for this visit. Medications and allergies reviewed by this provider. SOCIAL HISTORY Social History Tobacco Use Smoking status: Former Current packs/day: 0.00 Average packs/day: 1.5 packs/day for 25.0 years (37.5 ttl pk-yrs) Types: Cigarettes Start date: 01/24/1986 Quit date: 01/24/2011 Years since quittin.2 Smokeless tobacco: Never Vaping Use Vaping status: Never Used Substance Use Topics Alcohol use: Not Currently Drug use: Yes Types: Marijuana Comment: Twice a month REVIEW OF SYSTEMS All other reviewed and negative other than HPI. OBJECTIVE: BP 132/68 Pulse 73 Resp 18 Wt 71.7 kg (158 lb 1.1 oz) SpO2 96% BMI 24.81 kg/m . Vital signs reviewed by this provider. APPEARANCE Well appearing, alert, in no acute distress, well-hydrated, well nourished. LEFT LOWER LEG: Medial aspect with area of approximately 4 cm x 4 cm erythema with scab in center. No excessive warmth, fluctuance, tenderness or red streaking. BP Controlled (<130/80) Never done Influenza Vaccine(1) Never done Covid-19 Vaccine(3 - season) due on 03/31/2024 DTaP,Tdap,Td Vaccine(1 - Tdap) due on 06/09/2024 RSV Vaccine(1 - Risk 60-74 years 1-dose series) due on 06/09/2024 Shingrix Vaccine(1 of 2) due on 06/09/2024 Pneumococcal Vaccine: 65+(1 of 1 - PCV) due on 06/09/2024 LDL Cholesterol due on 11/28/2024 Depression Screening due on 12/07/2024 Anxiety Screening due on 12/07/2024 Annual PCP Team Chronic Disease Visit due on 03/11/2025 Prostate Cancer Screening Discussion due on 05/07/2026 Diabetes Screening due on 02/09/2027 Lipid Screening due on 11/28/2028 Colorectal Cancer Screening due on 08/03/2031 Abdominal Aortic Aneurysm Screening Completed Advance Directive Discussion Completed Hepatitis C Screening Completed HPV Vaccine Aged Out ASSESSMENT/PLAN: 1. Left leg cellulitis - ICD9: 682.6, ICD10: L03.116 - prelim culture + for Many staph aureus- susceptibility results pending - some improvement per patient - no red flag symptoms or exam findings - red flag symptoms discussed, verbalizes understanding - continue dual antibiotic therapy - follow-up Monday for recheck Alejandra Viramontes APRN.CNP Prescription instructions reviewed with patient as applicable. Patient advised if symptoms do not improve or if symptoms worsen sooner, to contact their primary care physician. Potential red flag symptoms discussed with the patient. Reviewed appropriate action plan to take if red flag symptoms occur. Patient agreeable to treatment plan. Medical Decision Making: Problems: Moderate: New problem with uncertain prognosis Risk: Moderate: Moderate risk from testing/treatment Medical Decision Making Level: 4 - Moderate documented in this encounterAden[facility]10-02-2024 Telephone encounter Note * Telephone Encounter - Marisa Faulkner LPN - 05/01/2024 4:04 PM EDT Patient stopped into the office this day. Asking in regards to vascular medicine scheduling. Patient voiced he would like to be seen at [facility] Vascular med. Order and demographics faxed to central scheduling. Requested they call patient to schedule. Patient instructed to call [facility] scheduling if he doesnot hear from them in 3 days. Patient voices understanding. Marisa Faulkner LPN [facility]10-02-2024 Miscellaneous Notes* Telephone Encounter - Marisa Faulkner LPN - 05/01/2024 4:04 PM EDT Patient stopped into the office this day. Asking in regards to vascular medicine scheduling. Patient voiced he would like to be seen at [facility] Vascular med. Order and demographics faxed to central scheduling. Requested they call patient to schedule. Patient instructed to call [facility] scheduling if he doesnot hear from them in 3 days. Patient voices understanding. Marisa Faulkner LPN documented in this encounterAdena [facility]10-02-2024 History of Present illness Narrative* Elijah Sanders, SESAR.DISASTER RECOVERY MANAGER - 05/01/2024 3:11 PM EDT Images from the original note were not included. Subjective HPI Nontoxic-appearing male presents urgent care chief complaint left leg wound. Duration of symptoms 2days. Associated symptoms pain redness mild swelling. Has not used any OTC medications. Swelling isworsening. Denies history of MRSA. No Injury. Has noticed some drainage from the area. Denies any fevers vomiting abdominal pain. Overallfeels well. Past medical history prescription medications allergies reviewed. .Patient presents with: Trauma: Spider bite on left leg x 2 days PAST MEDICAL HISTORY Diagnosis Date Abdominal aortic aneurysm (AAA) without rupture (HCC) 3 x 3.1 cm 05/2021, repeat 1 year. Benign neoplasm of colon Coronary artery disease involving chilkoot coronary artery of chilkoot heart without angina pectoris Dr. Tineo Essential hypertension Heart attack (HCC) 2011 History of tobacco use Multiple lung nodules on CT 11/09/2023 PET scan ordered PAD (peripheral artery disease) (HCC) 04/04/2024 Mild to moderate disease LLE on LINH Primary lung adenocarcinoma, right (HCC) RUL,s/p 02/09/24 flexible bronchoscopy, right VATS, right upper lobe wedge resection, cryo nerve block, mediastinal lymph node dissection Psoriasis [facility] S/P lobectomy of lung Thrombocytopenia (HCC) Tinnitus of both ears PAST SURGICAL HISTORY Procedure Laterality Date COLONOSCOPY FLX DX W/COLLJ SPEC WHEN PFRMD 10/08/2008 Colonoscopy COLONOSCOPY FLX DX W/COLLJ SPEC WHEN PFRMD 08/03/2021 repeat in 10 years EXTRACTION, ERUPTED TOOTH OR EXPOSED ROOT (ELEVATION AND/OR FORCEPS REMOVAL) wisdom HEART CATHETERIZATION 2011 stent x 4 HEART SURGERY HX LUNG SURGERY HX Right 02/09/2024 right VATS Right Upper lobe Lung resection PAST SURGICAL HISTORY OF age 6 appendectomy, no rupture PAST SURGICAL HISTORY OF Right 09/2021 cyst removal from chest wall PT ED HEART AND VASCULAR 2011 TONSILLECTOMY HX TONSILLECTOMY PRIMARY/SECONDARY <AGE 12 tonsillectomy ALLERGIES Penicillins MEDICATIONS atorvastatin (LIPITOR) 80 mg tablet Take 1 tablet by mouth daily at bedtime. For cholesterol. ezetimibe (ZETIA) 10 mg tablet Take 1 tablet by mouth once daily. nitroglycerin sublingual (NITROQUICK) 0.4 mg SL tablet Dissolve 1 tablet under the tongue every 5 minutes as needed. Aspirin 81 mg Tab Take 81 mg by mouth once daily. carvedilol (COREG) 6.25 mg tablet Take 6.25 mg by mouth two times a day with meals. lisinopril (ZESTRIL) 5 mg tablet Take 5 mg by mouth once daily. iv contrast (will be provided with radiology test) CT Chest W -Inject, intravenously, once for 1 dose.No IV access, insert saline lock prior to the beginning of sedation, infusion, injection of imaging exam. Discontinue saline lock post exam. If Pt. has a central line or IVAD, may access for administration according to line specific nursing protocol. Once exam is complete flush line and de-accessaccording to line specific nursing protocol in the CT contrast administration guidelines link. (Patient not taking: Reported on 05/01/2024) FAMILY HISTORY Problem Relation Age of Onset Breast Cancer Mother Heart Father details uncertain; ? h/o rheumatic fever Stroke Father details uncertain No Known Problems Brother No Known Problems Daughter No Known Problems Daughter No Known Problems Son No Known Problems Son No Known Problems Maternal Grandmother No Known Problems Maternal Grandfather No Known Problems Paternal Grandmother No Known Problems Paternal Grandfather Diabetes Other none Colon Cancer Other none Prostate Cancer Other none Anesthesia Problems No Family History Social History Tobacco Use Smoking status: Former Current packs/day: 0.00 Average packs/day: 1.5 packs/day for 25.0 years (37.5 ttl pk-yrs) Types: Cigarettes Start date: 01/24/1986 Quit date: 01/24/2011 Years since quittin.2 Smokeless tobacco: Never Vaping Use Vaping status: Never Used Substance Use Topics Alcohol use: Not Currently Drug use: Yes Types: Marijuana Comment: Twice a month BP 130/74 Pulse 76 Temp 36.6 C (97.9 F) Resp 19 Wt 72.5 kg (159 lb 13.3 oz) SpO2 97% BMI 25.09 kg/m Review of Systems Constitutional: Negative for chills, fever and malaise/fatigue. HENT: Negative for congestion, ear discharge, ear pain, sinus pain and sore throat. Eyes: Negative for blurred vision, pain, discharge and redness. Respiratory: Negative for cough, hemoptysis, sputum production, shortness of breath, wheezing and stridor. Cardiovascular: Negative for chest pain. Gastrointestinal: Negative for abdominal pain, diarrhea, nausea and vomiting. Musculoskeletal: Negative for myalgias. Skin: Negative for itching and rash. Neurological: Negative for dizziness and headaches. Objective Physical Exam Constitutional: General: He is not in acute distress. Appearance: He is not toxic-appearing. HENT: Head: Normocephalic. Nose: Nose normal. Eyes: Pupils: Pupils are equal, round, and reactive to light. Cardiovascular: Rate and Rhythm: Normal rate. Pulmonary: Effort: Pulmonary effort is normal. No respiratory distress. Musculoskeletal: Cervical back: Normal range of motion. Skin: General: Skin is warm and dry. Comments: A 4 cm x 4 cm area of erythema and induration noted. No fluctuance noted. Approximately 5mm x 5 mm small opening to the wound noted. Wound approximately 3 mm deep. Small amount of purulentdrainage. No remote redness. No fluctuance. No adenopathy. Neurological: General: No focal deficit present. Mental Status: He is alert. ASSESSMENT/PLAN: 1. Cellulitis of left lower extremity - ICD9: 682.6, ICD10: L03.116 - ABSCESS AND WOUND CULTURE WITH GRAM STAIN Diagnosed with lower left leg cellulitis. No evidence of abscess formation. Wound culture obtained.Cover with Keflex and doxycycline. Tailor accordingly to the wound culture results. Will follow-up with PCP on Monday wound reevaluation. Red flags ER evaluation discussed. Patient was educated on supportive therapies. Patient was instructed to immediately proceed to emergency room for any new, worsening, or symptoms lasting longer than anticipated. The patient's clinical presentation is otherwise unremarkable at this time. Based on exam and clinical finding, the patient is stable for discharge. Plan of care was discussed with patient. Patient verbalizes understanding and agrees to plan of care. This note was generated using [employer]une[employer] software. It may contain errors in wording, punctuation, or spelling. Elijah Sanders APRN.RENEE documented in this encounterA[facility] Telephone encounter Note * Telephone Encounter - Brianna Salinas RN - 04/05/2024 11:53 AM EDT Patient returned call and given provider's message below and patient verbalized understanding. Jackie Salinas RN [facility]09-[facility] Miscellaneous Notes* Telephone Encounter - Brianna Salinas RN - 04/05/2024 11:53 AM EDT Patient returned call and given provider's message below and patient verbalized understanding. Jackie Salinas RN * Telephone Encounter - Tima Tello MD - 04/05/2024 11:46 AM EDT Unless he develops pain in his calf with walking, color change, or cold extremity I would not change his regimen at this point. I would have him follow up with vascular as ordered and call if symptoms worsen. * Telephone Encounter - Brianna Salinas RN - 04/05/2024 11:29 AM EDT Patient given provider's message below. Patient agreeable to schedule with Vascular Medicine and was transferred to master scheduler to make appt. Patient would like PCP to know that his symptoms continue; Having hot and cold sensations in both feet, more so in his right foot, and curious that it may be nerve related since his recent lung procedure. No swelling or changes in color to feet. Please advise patient further, if appropriate. Thank you. * Telephone Encounter - Shaylee Ochoa LPN - 04/04/2024 4:15 PM EDT Message left for patient to return call to review results. Shaylee Ochoa LPN * Telephone Encounter - Tima Tello MD - 04/04/2024 12:21 PM EDT Patient's Ankle Brachial index shows normal blood flow to the right extremity. The left extremity shows mild to moderate occlusive disease. He is already taking ASA and statin. Will refer to vascular for further evaluation. documented in this encounterA[facility] Telephone encounter Note * Telephone Encounter - Tima Tello MD - 04/05/2024 11:46 AM EDT Unless he develops pain in his calf with walking, color change, or cold extremity I would not change his regimen at this point. I would have him follow up with vascular as ordered and call if symptoms worsen. [facility] Telephone encounter Note* Telephone Encounter - Brianna Salinas RN - 04/05/2024 11:29 AM EDT Patient given provider's message below. Patient agreeable to schedule with Vascular Medicine and was transferred to master scheduler to make appt. Patient would like PCP to know that his symptoms continue; Having hot and cold sensations in both feet, more so in his right foot, and curious that it may be nerve related since his recent lung procedure. No swelling or changes in color to feet. Please advise patient further, if appropriate. Thank you. [facility]09-05-[facility] Telephone encounter Note* Telephone Encounter - Shaylee Ochoa LPN - 04/04/2024 4:15 PM EDT Message left for patient to return call to review results. Shaylee Ochoa LPN [facility]09-05-[facility]24 Telephone encounter Note* Telephone Encounter - Tima Tello MD - 04/04/2024 12:21 PM EDT Patient's Ankle Brachial index shows normal blood flow to the right extremity. The left extremity shows mild to moderate occlusive disease. He is already taking ASA and statin. Will refer to vascular for further evaluation. [facility]08[facility] History of Present illness Narrative* Analy Dumont DO - 03/20/2024 1:54 PM EDT Consulted for NSCLC. The impression and plan will be communicated by way of the shared electronic record. HPI: The patient is a 68-year-old male with past medical history as outlined below. Had a screening CT of the lung 11/06/2023. Observed to have a solid nodule in the right upper lobe with an average diameter of approximately 10.2 mm. It would. Mildly larger when compared to scan in July 2023. There were 2 other nodules inthe right upper lobe. 1 of which appeared stable and the other measuring 4 x 3 mm may have been slightly larger than when compared to previous scan. A 7.1 mm parenchymal density in the right upper lobe on PET scan performed subsequently had an SUV of 4.1. Ultimately underwent a right sided VATS right upper lobectomy on 02/09/2024. Pathology: FINAL DIAGNOSIS A. Lung, right upper lobe, wedge resection: - Adenocarcinoma, acinar subtype. - Inked surgical margin is positive for carcinoma. - See comment. B. Lymph node, level 9, excision: - Lymph node tissue, negative for carcinoma (0/1). C. Lung, right upper lobe, lobectomy: - Adenocarcinoma, acinar (60%) and lepidic (40%) patterns. - Margins (bronchial, vascular and parenchymal margins) negative for tumor. - Focal features suggestive of prior infarct. - Seven lymph nodes, negative for carcinoma (0/7). - See comment and synoptic report. D. Lymph node, level 4, excision: - Fibroadipose tissue, negative for tumor. - Lymph node tissue is not present. E. Lymph node, level 7, excision: - One lymph node, negative for carcinoma (0/1). Diagnosis Comment A. The tumor in part A shows extensive frozen artifact which limits the morphologic evaluation as well as the evaluation for size,vascular space and pleural invasion. C. Targeted oncology profile (TOP), ALK, PDL1, ROS1 and RET testing will be performed A, C. Dr. Erica Roberts has reviewed this case and agrees with the above diagnosis. Block for additional Biomarkers/Molecular studies C16 Synoptic Report LUNG 8th Edition - Protocol posted: 04/20/2022LUNG: RESECTION - All Specimens SPECIMEN Procedure Lobectomy Specimen Laterality Right TUMOR Tumor Focality Single focus Tumor Site Upper lobe of lung Tumor Size Total Tumor Size (size of entire tumor) Greatest Dimension (Centimeters): at least 1.5 cm Size of Invasive Component Greatest Dimension (Centimeters): at least 1.5 cm Histologic Type Invasive acinar adenocarcinoma Histologic Patterns Present Acinar: 80 Histologic Grade G2, moderately differentiated Spread Through Air Spaces (ANITA) Not identified Visceral Pleura Invasion Not identified Direct Invasion of Adjacent Structures Not applicable (no adjacent structures present) Treatment Effect No known presurgical therapy Lymphovascular Invasion Not identified MARGINS Margin Status for Invasive Carcinoma All margins negative for invasive carcinoma Closest Margin(s) to Invasive Carcinoma Bronchial Vascular Parenchymal Distance from Invasive Carcinoma to Closest Margin 3.5 cm Margin Status for Non-Invasive Tumor All margins negative for non-invasive tumor REGIONAL LYMPH NODES Lymph Node(s) from Prior Procedures Not included Regional Lymph Node Status All regional lymph nodes negative for tumor Number of Lymph Nodes Examined 9 Erika Site(s) Examined 4R: Lower paratracheal 9R: Pulmonary ligament 7: Subcarinal PATHOLOGIC STAGE CLASSIFICATION (pTNM, AJCC 8th Edition) Reporting of pT, pN, and (when applicable) pM categories is based on information available to the pathologist at the time the report is issued. As per the AJCC (Chapter 1, 8th Ed.) it is the managingphysician s responsibility to establish the final pathologic stage based upon all pertinent information, including but potentially not limited to this pathology report. pT Category pT1b pN Category pN0 . Postthoracotomy pain improving. PAST MEDICAL HISTORY No date: Abdominal aortic aneurysm (AAA) without rupture (HCC) Comment: 3 x 3.1 cm 05/2021, repeat 1 year. No date: Benign neoplasm of colon No date: Coronary artery disease involving chilkoot coronary artery of chilkoot heart without angina pectoris Comment: Dr. Tineo No date: Essential hypertension 2012: Heart attack (HCC) No date: History of tobacco use 11/09/2023: Multiple lung nodules on CT Comment: PET scan ordered No date: Primary lung adenocarcinoma, right (HCC) Comment: RUL,s/p 02/09/24 flexible bronchoscopy, right VATS, right upper lobe wedge resection, cryo nerve block, mediastinal lymph node dissection No date: Psoriasis Comment: [facility] No date: S/P lobectomy of lung No date: Thrombocytopenia (HCC) No date: Tinnitus of both ears PAST SURGICAL HISTORY 10/08/2008: COLONOSCOPY FLX DX W/COLLJ SPEC WHEN PFRMD Comment: Colonoscopy 08/03/2021: COLONOSCOPY FLX DX W/COLLJ SPEC WHEN PFRMD Comment: repeat in 10 years No date: EXTRACTION, ERUPTED TOOTH OR EXPOSED ROOT (ELEVATION AND/OR FORCEPS REMOVAL) Comment: negro 2012: HEART CATHETERIZATION Comment: stent x 4 No date: HEART SURGERY HX 02/09/2024: LUNG SURGERY HX; Right Comment: right VATS Right Upper lobe Lung resection age 6: PAST SURGICAL HISTORY OF Comment: appendectomy, no rupture 09/2021: PAST SURGICAL HISTORY OF; Right Comment: cyst removal from chest wall 2012: PT [facility] No date: TONSILLECTOMY HX No date: TONSILLECTOMY PRIMARY/SECONDARY <AGE 12 Comment: tonsillectomy ALLERGIES Allergen Reactions Penicillins Hives Current Outpatient Medications Medication Sig atorvastatin (LIPITOR) 80 mg tablet Take 1 tablet by mouth daily at bedtime. For cholesterol. ezetimibe (ZETIA) 10 mg tablet Take 1 tablet by mouth once daily. nitroglycerin sublingual (NITROQUICK) 0.4 mg SL tablet Dissolve 1 tablet under the tongue every 5 minutes as needed. Aspirin 81 mg Tab Take 81 mg by mouth once daily. carvedilol (COREG) 6.25 mg tablet Take 6.25 mg by mouth two times a day with meals. lisinopril (ZESTRIL) 5 mg tablet Take 5 mg by mouth once daily. No current facility-administered medications for this visit. Social History Tobacco Use Smoking status: Former Current packs/day: 0.00 Average packs/day: 1.5 packs/day for 25.0 years (37.5 ttl pk-yrs) Types: Cigarettes Start date: 01/24/1986 Quit date: 01/24/2011 Years since quittin.1 Smokeless tobacco: Never Vaping Use Vaping status: Never Used Substance Use Topics Alcohol use: Not Currently Drug use: Yes Types: Marijuana Comment: Twice a month Family History Problem Relation Age of Onset Breast Cancer Mother Heart Father details uncertain; ? h/o rheumatic fever Stroke Father details uncertain No Known Problems Brother No Known Problems Daughter No Known Problems Daughter No Known Problems Son No Known Problems Son No Known Problems Maternal Grandmother No Known Problems Maternal Grandfather No Known Problems Paternal Grandmother No Known Problems Paternal Grandfather Diabetes Other none Colon Cancer Other none Prostate Cancer Other none Anesthesia Problems No Family History ROS: Constitutional: No fever. No drenching night sweats. Normal appetite. No unexplained weight loss. No significant fatigue. Neuro: No recent LANG, vertigo, dizziness or imbalance. No symptoms of sensory neuropathy. HEENT: No recent change in voice, vision or hearing. Resp: CVS: No exertional chest pain, PND or orthopnea. No extremity swelling/edema. GI: No dysphagia or odynophagia. No reflux, n/v, change in bowel habits. No abdominal pain, bloating or distension. No black or bloody stools. : No dysuria or gross hematuria. No symptoms of bladder outlet obstruction. Endo: No hot flashes. No polyuria or polydipsia. No heat or cold intolerance. Musculoskeletal: See HPI. Derm: No current rash. No history of jaundice. No diffuse pruritis. Heme: No unusual bleeding and unexplained bruising. Psych: Normal mood. PHYSICAL EXAM: Vitals: Blood pressure 99/61, pulse 81, temperature 36.4 C (97.6 F), temperature source Temporal, height 170 cm (5' 6.93), weight 71.4 kg (157 lb 8 oz), SpO2 98%. Well-appearing and in no acute distress. EYES: Sclerae are anicteric bilaterally. LYMPHATIC: There is no palpable cervical, supraclavicular, axillary adenopathy. RESPIRATORY: Inspiratory breath sounds are of diminished intensity in all bermeo. No rales, wheezesor rhonchi. CARDIOVASCULAR: Rhythm is regular. Normal intensity S1/S2. There is no gallop or murmur. ABDOMEN: The abdomen is nondistended.No tenderness. Extremities: No swelling or edema. SKIN: No jaundice or rash. No petechiae. ASSESSMENT/PLAN: (C34.11) Malignant neoplasm of upper lobe of right lung (HCC) Assessment: -pT1b pN0 M0 stage IA2 acinar adenocarcinoma, grade 2 of the right upper lobe. -All margins negative. -9 lymph nodes including subcarinal all negative. -No visceral pleural invasion. -No adjuvant chemotherapy or radiation indicated. -Discussed surveillance including CT chest with or without contrast every 6 months for 2 to 3 yearsthen low-dose noncontrast enhanced CT chest annually. Plan: -Labs then CT chest followed by OV in about 6 months. I spent a total of 30 minutes on the date of the service which included preparing to see the patient, [id number] patient care, completing clinical documentation, obtaining and/or reviewing separately obtained history, performing a medically appropriate examination, counseling and educating the pat ient/family/caregiver, ordering medications, tests, or procedures, communicating with other HCPs (not separately reported), and communicating results to the patient/family/caregiver. Analy Dumont DO documented in this encounterA[facility]08-[facility]24 Telephone encounter Note * Telephone Encounter - Shaylee Ochoa LPN - 03/12/2024 2:29 PM EDT Phoned patient and updated him with results. Patient voiced understanding. Shaylee Ochoa LPN [facility]08-13-2024 Miscellaneous Notes* Telephone Encounter - Shaylee Ochoa LPN - 03/12/2024 2:29 PM EDT Phoned patient and updated him with results. Patient voiced understanding. Shaylee Ochoa LPN * Telephone Encounter - Shaylee Ochoa LPN - 03/11/2024 3:13 PM EDT ----- Message from Tima Tello MD sent at 03/11/2024 9:15 AM EDT ----- Xray of the right foot negative for fracture or dislocation. documented in this encounterAden[facility]08-12-2024 Telephone encounter Note * Telephone Encounter - Shaylee Ochoa LPN - 03/11/2024 3:13 PM EDT ----- Message from Tima Tello MD sent at 03/11/2024 9:15 AM EDT ----- Xray of the right foot negative for fracture or dislocation. [facility]08-12-[facility] History of Present illness Narrative* Alfredo Gan RT(R) - 03/11/2024 8:20 AM EDT Radiology Service Progress Note PATIENT NAME: Sharonda Flores DATE OF SERVICE: March 11, 2024 TIME: 8:30 AM PATIENT IDENTITY VERIFICATION COMPLETED USING TWO (2) IDENTIFIERS: Name and Date of confirmedby patient verbally. FALL SCREENING: Has the patient had 2 falls in the last year or 1 fall with injury or currently using an Ambulatory Assistive Device (Walker, Cane, Wheelchair, Crutches, etc.)? No PATIENT GENDER DATA: Male PATIENT RELEVANT IMPLANT DATA REVIEWED: Not Applicable PATIENT PRESENTS WITH AN IMPLANTABLE OR ATTACHED FIREFIGHTER: No RADIOLOGY DEPARTMENT: General X-ray: Exam(s) Completed: Lower Extremity X- Ray(s): Foot, Right and Wt. Bearing PERIPHERAL IV DATA: Not applicable SIGNED BY: RT Jose Carlos(R) March 11, 2024 8:30 AM documented in this encounterAdena [facility]08-12-2024 History of Present illness Narrative* Tima Tello MD - 03/11/2024 7:37 AM EDT Chief Complaint Patient presents with: Follow Up: 3 month HPI Sharonda Flores is a 68 year old male who presents here today for Above Complaints. Patient is s/p 02/09/24 flexible bronchoscopy, right VATS, right upper lobe wedge resection, cryo nerve block, mediastinal lymph node dissection with finding of RUL adenocarcinoma. Reviewed last OV with CT surgery from 02/28. Patient states that his pain is controlled with tylenol every 6 hours. Has some dry cough still related to surgery. Denies fever/chills, nausea, vomiting, erythema around wounds, drainage. Has appointment with oncology next week and pulmonology in April. Patient states that about 2-3 weeks ago developed symptoms of coldness of his right foot and ankle with pain. Does not bother him much during the day along as he is moving around. Denies cyanosis, erythema. Told after his surgery he could get numbness and tingling in his feet. Also notes that he stubbed his 4th toe about 5 days ago and continues to have pain and swelling over the area. Not treating with anything OTC. Able to ambulate without crutches. Refusing surgical boot today. Past medical history, appointments, medications, allergies reviewed. Previous Medical History PAST MEDICAL HISTORY No date: Abdominal aortic aneurysm (AAA) without rupture (HCC) Comment: 3 x 3.1 cm 05/2021, repeat 1 year. No date: Benign neoplasm of colon No date: Coronary artery disease involving chilkoot coronary artery of chilkoot heart without angina pectoris Comment: Dr. Tineo No date: Essential hypertension No date: History of tobacco use 11/09/2023: Multiple lung nodules on CT Comment: PET scan ordered No date: Psoriasis Comment: [facility] No date: Thrombocytopenia (HCC) No date: Tinnitus of both ears Previous Surgical History PAST SURGICAL HISTORY 10/08/2008: COLONOSCOPY FLX DX W/COLLJ SPEC WHEN PFRMD Comment: Colonoscopy 08/03/2021: COLONOSCOPY FLX DX W/COLLJ SPEC WHEN PFRMD Comment: repeat in 10 years No date: EXTRACTION, ERUPTED TOOTH OR EXPOSED ROOT (ELEVATION AND/OR FORCEPS REMOVAL) Comment: [facility] 2011: HEART CATHETERIZATION Comment: stent x 4 No date: HEART SURGERY HX 02/09/2024: LUNG SURGERY HX; Right Comment: right VATS Right Upper lobe Lung resection age 6: PAST SURGICAL HISTORY OF Comment: appendectomy, no rupture 09/2021: PAST SURGICAL HISTORY OF; Right Comment: cyst removal from chest wall No date: TONSILLECTOMY HX No date: TONSILLECTOMY PRIMARY/SECONDARY <AGE 12 Comment: tonsillectomy Family History FAMILY HISTORY Problem Relation Age of Onset Breast Cancer Mother Heart Father details uncertain; ? h/o rheumatic fever Stroke Father details uncertain No Known Problems Brother No Known Problems Daughter No Known Problems Daughter No Known Problems Son No Known Problems Son No Known Problems Maternal Grandmother No Known Problems Maternal Grandfather No Known Problems Paternal Grandmother No Known Problems Paternal Grandfather Diabetes Other none Colon Cancer Other none Prostate Cancer Other none Anesthesia Problems No Family History Patient Allergies ALLERGIES Allergen Reactions Penicillins Hives Current Medications Current Outpatient Medications on File Prior to Visit Medication Sig atorvastatin (LIPITOR) 80 mg tablet Take 1 tablet by mouth daily at bedtime. For cholesterol. ezetimibe (ZETIA) 10 mg tablet Take 1 tablet by mouth once daily. nitroglycerin sublingual (NITROQUICK) 0.4 mg SL tablet Dissolve 1 tablet under the tongue every 5 minutes as needed. Aspirin 81 mg Tab Take 81 mg by mouth once daily. carvedilol (COREG) 6.25 mg tablet Take 6.25 mg by mouth two times a day with meals. lisinopril (ZESTRIL) 5 mg tablet Take 5 mg by mouth once daily. No current facility-administered medications on file prior to visit. Social History Social History Tobacco Use Smoking status: Former Packs/day: 1.50 Years: 25.00 Additional pack years: 0.00 Total pack years: 37.50 Types: Cigarettes Quit date: 01/24/2011 Years since quittin.1 Smokeless tobacco: Never Vaping Use Vaping Use: Never used Substance Use Topics Alcohol use: Not Currently Drug use: Yes Types: Marijuana Comment: Twice a month Review of Symptoms REVIEW OF SYSTEMS GENERAL: No weight loss, malaise or fevers RESPIRATORY: Admits to mild SOB and cough since his surgery. Denies wheezing. CARDIOVASCULAR: Negative for chest pain, leg swelling, hypertension, CHF or palpitations GI: No nausea, vomiting, or diarrhea SKIN: Negative for lesions, rash, and itching EXAM: BP 130/64 Pulse 83 Resp 18 Wt 71.7 kg (158 lb 1.1 oz) SpO2 97% BMI 26.30 kg/m General Appearance: Well appearing, alert, in no acute distress, well-hydrated, well nourished.. Skin: Skin color, texture, turgor normal, no suspicious rashes or lesions. Lungs: Decreased lung sounds in RUL. Lungs clear to auscultation otherwise. No wheezing, rhonchi, rales. Heart: RRR without murmur, gallop, or rubs. No ectopy. Abdomen: Normal abdominal exam, Abdomen soft, non-tender. Bowel sounds normal. No masses, organomegaly. Extremities: No deformities, edema, skin discoloration, clubbing or cyanosis. Good capillary refill. Feet are warm bilaterally Pulses: 2+ femoral, popliteal, DP, and PT bilaterally. Musculoskeletal: Mild swelling over right 4th toe without bruising or deformity. Normal ROM. TTP over 4th MTP joint and 4th toe without step off. Health Maintenance List DTaP,Tdap,Td Vaccine(1 - Tdap) due on 06/09/2024 RSV Vaccine(1 - 1-dose 60+ series) due on 06/09/2024 Shingrix Vaccine(1 of 2) due on 06/09/2024 Covid-19 Vaccine(3 - season) due on 06/09/2024 Pneumococcal Vaccine: 65+(1 of 1 - PCV) due on 06/09/2024 Influenza Vaccine(1) due on 03/31/2024 LDL Cholesterol due on 11/28/2024 Annual PCP Team Chronic Disease Visit due on 12/07/2024 Depression Screening due on 12/07/2024 Anxiety Screening due on 12/07/2024 Lung Cancer Screening due on 12/12/2024 BP Controlled (<130/80) due on 02/28/2025 Prostate Cancer Screening Discussion due on 05/07/2026 Diabetes Screening due on 02/09/2027 Lipid Screening due on 11/28/2028 Colorectal Cancer Screening due on 08/03/2031 Abdominal Aortic Aneurysm Screening Completed Advance Directive Discussion Completed Hepatitis C Screening Completed Data reviewed Latest Ref Rng 02/09/2024 02/10/2024 WBC 3.70 - 11.00 k/uL 12.55 (H) 11.45 (H) WBC 9.92 RBC 4.20 - 6.00 m/uL 4.72 4.20 RBC 4.53 Hemoglobin 13.0 - 17.0 g/dL 13.6 12.3 (L) Hemoglobin 13.2 Hematocrit 39.0 - 51.0 % 42.2 38.8 (L) Hematocrit 40.9 MCV 80.0 - 100.0 fL 89.4 92.4 MCV 90.3 MCH 26.0 - 34.0 pg 28.8 29.3 MCH 29.1 MCHC 30.5 - 36.0 g/dL 32.2 31.7 MCHC 32.3 RDW-CV 11.5 - 15.0 % 12.6 12.9 RDW-CV 12.8 Platelet Count 150 - 400 k/uL 144 (L) 129 (L) Platelet Count 141 (L) MPV 9.0 - 12.7 fL 11.2 12.6 MPV 11.4 Absolute nRBC <0.01 k/uL <0.01 <0.01 Absolute nRBC <0.01 Glucose 74 - 99 mg/dL 163 (H) 114 (H) Glucose 136 (H) BUN 9 - 24 mg/dL 20 18 BUN 18 Creatinine 0.73 - 1.22 mg/dL 0.87 1.01 Creatinine 0.86 Sodium 136 - 144 mmol/L 139 138 Sodium 139 Potassium 3.7 - 5.1 mmol/L 4.2 3.7 Potassium 4.4 Chloride 98 - 107 mmol/L 106 103 Chloride 104 CO2 22 - 30 mmol/L 21 (L) 25 CO2 23 Anion Gap 8 - 15 mmol/L 12 10 Anion Gap 12 Calcium 8.5 - 10.2 mg/dL 8.5 7.5 (L) Calcium 8.6 eGFR >=60 mL/min/1.73m 94 81 eGFR 94 Legend: (H) High (L) Low ASSESSMENT/PLAN: 1. Cold extremity without peripheral vascular disease - ICD9: 782.9, ICD10: R20.9 (primary diagnosis) Normal vascular exam today. I suspect his pain is a side effect of his surgery. Will obtain LINH to rule out PAD and if negative, consider amitriptyline QHS for neuropathy. Red flags for re-assessmentreviewed with patient in detail. - PVR ANK PRESS [facility] 2. Other specified symptoms and signs involving the circulatory and respiratory systems - ICD9: 785.9, 786.9, ICD10: R09.89 - PVR ANK PRESS [facility] 3. Pain of toe of right foot - ICD9: 729.5, ICD10: M79.674 Suspect sprain. Obtain xray to confirm. Discussed tylenol, rest, ice, and elevation. Patient refusing post op shoe or crutches today. - XR FOOT GENERAL 3V AP/LAT/OBL RIGHT 4. Primary lung adenocarcinoma, right (HCC) - ICD9: 162.9, ICD10: C34.91 S/p lobectomy. Pain well controlled with tylenol. Experiencing expected effects from surgery with cough and possible neuropathy. Keep f/u with oncology, pulmonology and CT surgery as recommended. 5. S/P lobectomy of lung - ICD9: V45.89, ICD10: Z90.2 Healing well. F/u with CT surgery recommendations. 6. Coronary artery disease involving chilkoot coronary artery of chilkoot heart without angina pectoris- ICD9: 414.01, ICD10: I25.10 Asymptomatic on medical management. 7. Essential hypertension - ICD9: 401.9, ICD10: I10 - Controlled - Continue current medications - Recommend home blood pressure monitoring, to bring results to next visit - Encouraged sodium restriction, DASH or Mediterranean diet - Recommend regular aerobic exercise Tima Tello MD documented in this encounterA[facility] Telephone encounter Note * Telephone Encounter - Conrado Yao MA - 03/04/2024 9:[address] Analy Dumont (Oncologist) office phone [phone] fax [phone] [facility] ([facility]) Faxed referral for right lung cancer, 02/29/24 office encounter, 02/09/24 operative report & pathology on 03/04/24 [facility]08-05-[facility]24 Miscellaneous Notes* Telephone Encounter - Conrado Yao MA - 03/04/2024 9:[address] Analy Dumont (Oncologist) office phone [phone] fax [phone] [facility] ([facility]) Faxed referral for right lung cancer, 02/29/24 office encounter, 02/09/24 operative report & pathology on 03/04/24 documented in this encounterAdena [facility]08-05-2024 Telephone encounter Note * Telephone Encounter - Charlene Amaya APRN.CNP - 03/04/2024 9:03 AM EDT Images from the original note were not included. [facility] Phone Note Surgeon: Dr. Tadeo Surgery: S/p flexible bronchoscopy, right VATS, right upper lobe wedge resection to send for frozen, cryo nerve block, mediastinal lymph node dissection Date of the surgery: 02/09/24 Origin of the call: patient Date of the call: 03/03/24 Reason for call: Patient states that he has not been taking pain medication (tramadol) d/t pain hadstopped. Stated that he is now having discomfort around the previous feeding tube and near thoracotomy incision. Describes pain as a constant discomfort. Denies any drainage, increase warmth or redness to the sites. States the regimen of tylenol and motrin is giving improvement, but not resolving. Contact information: [phone] How call resolved:Encouraged patient to continue regimen, add ice/heat to site and lidocaine patches. Required follow up: Patient to follow up on Monday with phone call on how pain doing. SIGNATURE: Charlene Amaya APRN.CNP DATE of SERVICE: 03/04/2024 TIME of SERVICE: 9:04 AM [facility] Work Phone: 1(441) 452-323508-05-2024 Miscellaneous Notes* Telephone Encounter - Charlene Amaya APRN.DISASTER RECOVERY MANAGER - 03/04/2024 9:03 AM EDT Images from the original note were not included. [facility] Phone Note Surgeon: Dr. Tadeo Surgery: S/p flexible bronchoscopy, right VATS, right upper lobe wedge resection to send for frozen, cryo nerve block, mediastinal lymph node dissection Date of the surgery: 02/09/24 Origin of the call: patient Date of the call: 03/03/24 Reason for call: Patient states that he has not been taking pain medication (tramadol) d/t pain hadstopped. Stated that he is now having discomfort around the previous feeding tube and near thoracotomy incision. Describes pain as a constant discomfort. Denies any drainage, increase warmth or redness to the sites. States the regimen of tylenol and motrin is giving improvement, but not resolving. Contact information: [phone] How call resolved:Encouraged patient to continue regimen, add ice/heat to site and lidocaine patches. Required follow up: Patient to follow up on Monday with phone call on how pain doing. SIGNATURE: Charlene Amaya APRN.CNP DATE of SERVICE: 03/04/2024 TIME of SERVICE: 9:04 AM documented in this encounterAdena [facility] Center08-01-2024 Instructions* Patient Instructions* Shaylee Woods APRN.CNP - 02/29/2024 10:27 AM EDT You have done a great job recovering from you surgery, moving forward, here are the recommendations: Medications: please continue taking Aspirin, beta aric and statin for coronary artery disease. Please avoid taking NSAIDs (Aleve, Ibuprofen, Motrin, Advil, Mobic etc) PAIN CONTROL: - scheduled tylenol 1000 mg oral every 6 hours for next 2 weeks, then gradually decrease - once oxycodone is complete, can trial tramadol prescription pain medicine as instructed for pain - can use flexeril (anti-spasm) medicine as needed for additional pain control - ok to use heat or ice to surgical sites - salonpas over the counter topical lidocaine patches around surgical site. 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 REFERRALS PLACED TO PULMONOLOGY AND ONCOLOGY TODAY. You need to see both in follow up You can follow up with cardiac surgery team on as needed basis. Please don't hesitate to contact us if you have any concerns/questions: [phone] Thanks for coming in to see me today. Shaylee Woods APRN.CNP documented in this encounterAdena [facility]08-01-2024 NoteHNO ID: [id number] Author: SHAYLEE WOODS APRN.CNP Service: ? Author Type: Nurse Practitioner Type: Progress Notes Filed: 02/29/2024 12:56 Note Text: HPI: Per Dr. Tadeo (Mr. Flores is a 68 year old male with past medical history of coronary artery disease status post multiple stents in [address] Tineo, AAA, hypertension, history of smoking cigars, thrombocytopenia, psoriasis presenting to the office for evaluation of a right upper lobe lung nodule. This was identified on screening CT scan of the chest in July, and follow-up CT in October showed that the solid nodule in the right upper lobe lobe of the lung increased in size to 1 cm. PET/CT demonstrated avidity of the nodule with a max SUV of 4.1. Patient obtain PFTs, which are fairly normal, and he underwent bronchoscopy/EBUS and navigational bronchoscopy on 12/15/2023 showing negative mediastinum and nodule pathology showing normal lung tissue with some blood. Patient was referred for surgical lung resection for both diagnosis and treatment. He is a fairly active gentleman with no family history of lung cancer. Patient was scheduled for 02/09/24 flexible bronchoscopy, right VATS, right upper lobe wedge resection to send for frozen, cryo nerve block, mediastinal lymph node dissection. If frozen returns as malignancy complete right upper lobe lobectomy to be performed. 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 He therefore underwent right upper lobe lung resection surgery. He tolerated the procedure well. He was monitored in the ICU and transitioned to the regular nursing floor when stable. His chest tube was removed after his air leak resolved. His post chest tube removal X-Ray showed nopneumothorax and he was stable for discharge. He presents today on 2 week post hospital DC follow up. He has not had his CXR. Interval events: Presents with his brother. Pt had called into our office 02/21 stating having pain over the right side of chest/chest wall and right shoulder, has been taking oxy 5mg q4 hours and continues to have significant pain. States develops cold sweats when pain is at its worst. Was dc'd with oxycodone. Was Instructed to start tylenol 1000mg QID and start flexiril 10mg TID PRN for pain and continue to use oxy prn. Scripts sent to pharmacy Still with right surgical site pain sharp and shooting, worse with activity. Last few days it has been a little better, so he backed off on oxycodone, but did require oxycodone last night. Has taken flexeril twice with good relief. He has not been taking tylenol, thought at one point in his life he was told not to take it so he hesitated. Denies any liver d/o history, hepatitis. LFTs WNL in early January. Feels side effects of oxycodone are hot/cold sweat, difficulty dreams but tolerable, inquires about alternative Sharonda Flores reports home recovery as listed below: Episodes of dizziness or syncope: no Chest pain: no Palpitations: no BP: reviewed per home log: NA Tolerating diet well without changing bowel habits: poor appetite, no n/v/d. Last BM was yesterday Fever, chills: no Activities at home with/without SOB or BARBER: walks around mobile home twice several times daily without SOB or cough Post surgical pain with pain medications - as above. Leg edema: no Sleep: impaired 2/2 pain Energy: fair Subjective: Current Outpatient Medications Medication Sig cyclobenzaprine (FLEXERIL) 10 mg tablet Take 1 tablet by mouth three times a day as needed for muscle spasm or pain for up to 10 days. oxyCODONE IR (ROXICODONE) 5 mg immediate release tablet Take 1 tablet by mouth every 6 hours as needed for pain for up to 7 days. atorvastatin (LIPITOR) 80 mg tablet Take 1 tablet by mouth daily at bedtime. For cholesterol. ezetimibe (ZETIA) 10 mg tablet Take 1 tablet by mouth once daily. nitroglycerin sublingual (NITROQUICK) 0.4 mg SL tablet Dissolve 1 tablet under the tongue every 5 minutes as needed. Aspirin 81 mg Tab Take 81 mg by mouth once daily. carvedilol (COREG) 6.25 mg tablet Take 6.25 mg by mouth two times a day with meals. lisinopril (ZESTRIL) 5 mg tablet Take 5 mg by mouth once daily. No current facility-administered medications for this visit. Penicillins PAST MEDICAL HISTORY No date: Abdominal aortic aneurysm (AAA) without rupture (HCC) Comment: 3 x 3.1 cm 05/2021, repeat 1 year. No date: Benign neoplasm of colon No date: Coronary artery disease involving chilkoot coronary artery of chilkoot heart without angina pectoris Comment: Dr. Tineo No date: Essential hypertension No date: History of tobacco use 11/09/2023: Multiple lung nodules on CT Comment: PET scan ordered No date: Psoriasis Comment: [facility] No date: Thrombocytopenia (HCC) No date: Tinnitus of both ears PAST SURGICAL HISTORY 10/08/2008: COLONOSCOPY FLX DX W/COLLJ SPEC WHEN PFRMD Comment: Colonoscopy 08/03/2021 (more content not included)...[facility]08-01-2024 History of Present illness Narrative* Shaylee Woods, SESAR.DISASTER RECOVERY MANAGER - 02/29/2024 9:45 AM EDT HPI: Per Dr. Tadeo (Mr. Flores is a 68 year old male with past medical history of coronary artery disease status post multiple stents in [address] Tineo, AAA, hypertension, history of smoking cigars, thrombocytopenia, psoriasis presenting to the office for evaluation of a right upper lobe lung nodule. This was identified on screening CT scan of the chest in July, and follow-up CT in October showed that the solid nodule in the right upper lobe lobe of the lung increased in size to 1 cm. PET/CT demonstrated avidity of the nodule with a max SUV of 4.1. Patient obtain PFTs, which are fairly normal, and he underwent bronchoscopy/EBUS and navigational bronchoscopy on 12/15/2023 showing negative mediastinum and nodule pathology showing normal lung tissue with some blood. Patient was referred for surgical lung resection for both diagnosis and treatment. He is a fairly active gentleman with no family history of lung cancer. Patient was scheduled for 02/09/24 flexible bronchoscopy, right VATS, right upper lobe wedge resection to send for frozen, cryo nerve block, mediastinal lymph node dissection. If frozen returns as malignancy complete right upper lobe lobectomy to be performed. 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 He therefore underwent right upper lobe lung resection surgery. He tolerated the procedure well. He was monitored in the ICU and transitioned to the regular nursing floor when stable. His chest tube was removed after his air leak resolved. His post chest tube removalX-Ray showed no pneumothorax and he was stable for discharge. He presents today on 2 week post hospital DC follow up. He has not had his CXR. Interval events: Presents with his brother. Pt had called into our office 02/21 stating having pain over the right side of chest/chest wall and right shoulder, has been taking oxy 5mg q4 hours and continues to have significant pain. States develops cold sweats when pain is at its worst. Was dc'd with oxycodone. Was Instructed to start tylenol 1000mg QID and start flexiril 10mg TID PRN for pain andcontinue to use oxy prn. Scripts sent to pharmacy Still with right surgical site pain sharp and shooting, worse with activity. Last few days it has been a little better, so he backed off on oxycodone, but did require oxycodone last night. Has taken flexeril twice with good relief. He has not been taking tylenol, thought at one point in his life hewas told not to take it so he hesitated. Denies any liver d/o history, hepatitis. LFTs WNL in earlyJuly. Feels side effects of oxycodone are hot/cold sweat, difficulty dreams but tolerable, inquiresabout alternative Sharonda Flores reports home recovery as listed below: Episodes of dizziness or syncope: no Chest pain: no Palpitations: no BP: reviewed per home log: NA Tolerating diet well without changing bowel habits: poor appetite, no n/v/d. Last BM was yesterday Fever, chills: no Activities at home with/without SOB or BARBER: walks around mobile home twice several times daily without SOB or cough Post surgical pain with pain medications - as above. Leg edema: no Sleep: impaired 2/2 pain Energy: fair Subjective: Current Outpatient Medications Medication Sig cyclobenzaprine (FLEXERIL) 10 mg tablet Take 1 tablet by mouth three times a day as needed for muscle spasm or pain for up to 10 days. oxyCODONE IR (ROXICODONE) 5 mg immediate release tablet Take 1 tablet by mouth every 6 hours as needed for pain for up to 7 days. atorvastatin (LIPITOR) 80 mg tablet Take 1 tablet by mouth daily at bedtime. For cholesterol. ezetimibe (ZETIA) 10 mg tablet Take 1 tablet by mouth once daily. nitroglycerin sublingual (NITROQUICK) 0.4 mg SL tablet Dissolve 1 tablet under the tongue every 5 minutes as needed. Aspirin 81 mg Tab Take 81 mg by mouth once daily. carvedilol (COREG) 6.25 mg tablet Take 6.25 mg by mouth two times a day with meals. lisinopril (ZESTRIL) 5 mg tablet Take 5 mg by mouth once daily. No current facility-administered medications for this visit. Penicillins PAST MEDICAL HISTORY No date: Abdominal aortic aneurysm (AAA) without rupture (HCC) Comment: 3 x 3.1 cm 05/2021, repeat 1 year. No date: Benign neoplasm of colon No date: Coronary artery disease involving chilkoot coronary artery of chilkoot heart without angina pectoris Comment: Dr. Tineo No date: Essential hypertension No date: History of tobacco use 11/09/2023: Multiple lung nodules on CT Comment: PET scan ordered No date: Psoriasis Comment: [facility] No date: Thrombocytopenia (HCC) No date: Tinnitus of both ears PAST SURGICAL HISTORY 10/08/2008: COLONOSCOPY FLX DX W/COLLJ SPEC WHEN PFRMD Comment: Colonoscopy 08/03/2021: COLONOSCOPY FLX DX W/COLLJ SPEC WHEN PFRMD Comment: repeat in 10 years No date: EXTRACTION, ERUPTED TOOTH OR EXPOSED ROOT (ELEVATION AND/OR FORCEPS REMOVAL) Comment: negro 2012: HEART CATHETERIZATION Comment: stent x 4 No date: HEART SURGERY HX 02/09/2024: LUNG SURGERY HX; Right Comment: right VATS Right Upper lobe Lung resection age 6: PAST SURGICAL HISTORY OF Comment: appendectomy, no rupture 09/2021: PAST SURGICAL HISTORY OF; Right Comment: cyst removal from chest wall No date: TONSILLECTOMY HX No date: TONSILLECTOMY PRIMARY/SECONDARY <AGE 12 Comment: tonsillectomy FAMILY HISTORY Problem Relation Age of Onset Breast Cancer Mother Heart Father details uncertain; ? h/o rheumatic fever Stroke Father details uncertain No Known Problems Brother No Known Problems Daughter No Known Problems Daughter No Known Problems Son No Known Problems Son No Known Problems Maternal Grandmother No Known Problems Maternal Grandfather No Known Problems Paternal Grandmother No Known Problems Paternal Grandfather Diabetes Other none Colon Cancer Other none Prostate Cancer Other none Anesthesia Problems No Family History Social History Tobacco Use Smoking status: Former Packs/day: 1.50 Years: 25.00 Additional pack years: 0.00 Total pack years: 37.50 Types: Cigarettes Quit date: 01/24/2011 Years since quittin.1 Smokeless tobacco: Never Vaping Use Vaping Use: Never used Substance Use Topics Alcohol use: Not Currently Drug use: Yes Types: Marijuana Comment: Twice a month Review of Systems Constitutional: Negative for chills, diaphoresis, fever, malaise/fatigue and weight loss. HENT: Negative for congestion. Respiratory: Negative for cough, hemoptysis, sputum production, shortness of breath and wheezing. Cardiovascular: Negative for chest pain, palpitations, orthopnea, claudication, leg swelling and PND. Gastrointestinal: Negative for abdominal pain, blood in stool, constipation, diarrhea, melena, nausea and vomiting. Genitourinary: Negative for hematuria. Musculoskeletal: Negative for falls. Skin: Negative for itching and rash. Neurological: Negative for dizziness, tingling and focal weakness. Objective: One month post- op Chest X-ray is done and reviewed today. Ordered, but not obtained yet. CXR 02/14/24 Stable post operative findings SURGICAL PATHOLOGY 02/09/24 Component FINAL DIAGNOSIS A. Lung, right upper lobe, wedge resection: - Adenocarcinoma, acinar subtype. - Inked surgical margin is positive for carcinoma. - See comment. B. Lymph node, level 9, excision: - Lymph node tissue, negative for carcinoma (0/1). C. Lung, right upper lobe, lobectomy: - Adenocarcinoma, acinar (60%) and lepidic (40%) patterns. - Margins (bronchial, vascular and parenchymal margins) negative for tumor. - Focal features suggestive of prior infarct. - Seven lymph nodes, negative for carcinoma (0/7). - See comment and synoptic report. D. Lymph node, level 4, excision: - Fibroadipose tissue, negative for tumor. - Lymph node tissue is not present. E. Lymph node, level 7, excision: - One lymph node, negative for carcinoma (0/1). Physical Examination: Vitals:BP 112/64 Pulse 68 Resp 16 Ht 5' 5 (1.65m) Wt 168 lb 4.8 oz (76.3kg) BMI 28.01 kg/(m^2). 94-95% Spo2 Last 2 Encounter Wt Readings: Date: Wt: 01/29/2024 170 lb 12.8 oz (77.5 kg) 01/18/2024 171 lb 12.8 oz (77.9 kg) Physical Exam Vitals reviewed. Constitutional: General: He is not in acute distress. Appearance: Normal appearance. HENT: Head: Normocephalic and atraumatic. Right Ear: External ear normal. Left Ear: External ear normal. Nose: Nose normal. Eyes: Extraocular Movements: Extraocular movements intact. Pupils: Pupils are equal, round, and reactive to light. Cardiovascular: Rate and Rhythm: Normal rate and regular rhythm. Pulses: Normal pulses. Heart sounds: Normal heart sounds. Pulmonary: Effort: Pulmonary effort is normal. Comments: Slightly diminished RUL. No rales, wheezing, rhonchi appreciated Abdominal: General: Bowel sounds are normal. Palpations: Abdomen is soft. Musculoskeletal: Right lower leg: No edema. Left lower leg: No edema. Skin: General: Skin is warm and dry. Capillary Refill: Capillary refill takes less than 2 seconds. Comments: Healed VATS and CT incision sites x 2. Most posterior CT site with some intact surgical glue peeling at edges. Lateral CT site with mild diana incisional redness, no bogginess, edema, dranage, warmth. Black suture removed from lateral edge Neurological: General: No focal deficit present. Mental Status: He is alert and oriented to person, place, and time. Psychiatric: Mood and Affect: Mood normal. Assessment and Plan: Right upper lobe adenocarcinoma, s/p RUL lobectomy - s/p 02/09/24 flexible bronchoscopy, right VATS, right upper lobe wedge resection, cryo nerve block, mediastinal lymph node dissection. - Surgical pathology 02/09/24 returned as right upper lobe adenocarcinoma, no lymph node involvement. He therefore underwent right upper lobe lung resection surgery. - doing well from a post VATS perspective - CXR stable appearing on preliminary review, official read pending - denies acute worsening of respiratory symptoms - incisions healing well - pain control : - scheduled tylenol 1000 mg oral every 6 hours for next 2 weeks, then gradually decrease - once oxycodone is complete, can trial tramadol prescription pain medicine as instructed for pain - can use flexeril (anti-spasm) medicine as needed for additional pain control - ok to use heat or ice to surgical sites - salonpas over the counter topical lidocaine patches around surgical site. Leave on for 12 hours, remove for 12 hours before replacing with a new one if needed for pain - continue good pulmonary hygiene/IS/ambulation - No aggressive lifting/ activity for 6 more weeks, then activity as tolerated - referrals placed to oncology and pulmonology ([facility]). Reviewed at length with pt and brother who verbalized understanding CAD - S/P stents in 2012 - Follows with Dr. Tineo - On medical management with ASA, statin & BB HTN - Controlled - Follows with cardiology as above - Takes lisinopril and carvedilol PCP follow up appointment: 03/11/24 Electronically signed by Shaylee Woods APRN.CNP on February 29, 2024, 9:45 AM documented in this encounterAdena [facility]07-29-2024 Telephone encounter Note * Telephone Encounter - Stoney Talavera LPN - 02/26/2024 7:30 AM EDT See Telephone Encounter from Dr. Francois's PIG MACHINE SUPERVISOR, 02/22/2024 10:36AM. Stoney Talavera LPN February 26, 2024 7:30 AM [facility]07-29-2024 Miscellaneous Notes* Telephone Encounter - Stoney Talavera LPN - 02/26/2024 7:30 AM EDT See Telephone Encounter from Dr. Francois's PIG MACHINE SUPERVISOR, 02/22/2024 10:36AM. Stoney Talavera LPN February 26, 2024 7:30 AM * Telephone Encounter - Stoney Talavera LPN - 02/22/2024 10:15 AM EDT Patient calling in and left message that he needs to speak to Dr. Tadeo's Nurse. This Nurse returned call. Patient states after surgery morphine wore off and was taking the prescribed oxycodone but he couldn't get out of bed once he started medication. Patient states he had to call [facility] who ran tests and he checked-out fine. Patient states he is experiencing right-sided pain of his chest. He was provided refills of oxycodone by [facility] however the pain is starting to feel like it did before. Patient states it feels like a fire cracker. Stoney Talavera LPN February 22, 2024 10:18 AM documented in this encounterAdena [facility] Center07-25-2024 Telephone encounter Note * Telephone Encounter - Stoney Talavera LPN - 02/22/2024 10:15 AM EDT Patient calling in and left message that he needs to speak to Dr. Tadeo's Nurse. This Nurse returned call. Patient states after surgery morphine wore off and was taking the prescribed oxycodone but he couldn't get out of bed once he started medication. Patient states he had to call [facility] who ran tests and he checked-out fine. Patient states he is experiencing right-sided pain of his chest. He was provided refills of oxycodone by [facility] however the pain is starting to feel like it did before. Patient states it feels like a fire cracker. Stoney Talavera LPN February 22, 2024 10:18 AM [facility]07-25-[facility] Telephone encounter Note* Telephone Encounter - Charlene Amaya APRN.DISASTER RECOVERY MANAGER - 02/22/2024 10:15 AM EDT Images from the original note were not included. HEART and VASCULAR [facility] Surgeon: Dr. Tadeo Surgery: Right Upper lobe Lung resection via right thoracotomy Date of the surgery: 02/09/24 Origin of the call: patient Date of the call: 02/22/24 Reason for call: States having pain over the right side of chest/chest wall and right shoulder, hasbeen taking oxy 5mg q4 hours and continues to have significant pain. States develops cold sweats when pain is at its worst. Was dc'd with oxycodone. Contact information: [phone] How call resolved: Instructed to start tylenol 1000mg QID and start flexiril 10mg TID PRN for pain and continue to use oxy prn. Scripts sent to pharmacy Required follow up: Has f/u on 02/28 SIGNATURE: Charlene Amaya APRN.CNP DATE of SERVICE: 02/22/2024 TIME of SERVICE: 10:15 AM [facility]07-25-2024 Miscellaneous Notes* Telephone Encounter - Charlene Amaya APRN.CNP - 02/22/2024 10:15 AM EDT Images from the original note were not included. [facility] Phone Note Surgeon: Dr. Tadeo Surgery: Right Upper lobe Lung resection via right thoracotomy Date of the surgery: 02/09/24 Origin of the call: patient Date of the call: 02/22/24 Reason for call: States having pain over the right side of chest/chest wall and right shoulder, hasbeen taking oxy 5mg q4 hours and continues to have significant pain. States develops cold sweats when pain is at its worst. Was dc'd with oxycodone. Contact information: [phone] How call resolved: Instructed to start tylenol 1000mg QID and start flexiril 10mg TID PRN for pain and continue to use oxy prn. Scripts sent to pharmacy Required follow up: Has f/u on 02/28 SIGNATURE: Charlene Amaya APRN.CNP DATE of SERVICE: 02/22/2024 TIME of SERVICE: 10:15 AM * Telephone Encounter - Conrado Yao MA - 02/22/2024 9:29 AM EDT Mr. Quijano left voicemail 02/22/24 8:29am stating he is pain and having cold sweats because of pain. He also said if he didn't hear back from our office soon, he was going to urgent care. I tried calling him at 02/22/24 9:27am twice ([phone]), it seems like someone answers but no one speaks. 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 [facility] Telephone encounter Note * Telephone Encounter - Conrado Yao MA - 02/22/2024 9:29 AM EDT Mr. Quijano left voicemail 02/22/24 8:29am stating he is pain and having cold sweats because of pain. He also said if he didn't hear back from our office soon, he was going to urgent care. I tried calling him at 02/22/24 9:27am twice ([phone]), it seems like someone answers but no one speaks. 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 [facility]07-23-2024 Telephone encounter Note* Telephone Encounter - Chavez - 02/20/2024 6:00 PM EDT Record ID: [id number] Patient name: Sharonda Flores Date: February 20, 2024 - :00 Administered by: CHAVEZ Protocol: -> Great! Now we are in a secure chat environment. Protecting your health information is important to us. Ok, let's get started. Please verify your name and date of . Please click on the button with your first name. -> Sharonda Got it. On to the next question... Select the button with your last name. -> Mark Got it, thank you. Please enter your date of in MM/DD/YYYY format:(e.g., 08/18/1969 for Aug 18, 1969) -> 1955 Thank you for verifying your information. I'd like to ask you a few questions about how your recovery is going. Since leaving the hospital, do you have any new or worsening symptoms? -> No I'm glad to hear that. We encourage a follow-up appointment [facility] a [facility]. It seems you have a follow up appointment scheduled, are you able to attend? -> Yes Thank you for your time and allowing us to care for you. We will check in on you over the next fourweeks to ensure you continue to recover and support your needs. In the meantime, please reach out to your PCP for any questions or concerns.Thank you for choosing [facility]! -> Great! Now we are in a secure chat environment. Protecting your health information is important to us. Ok, let's get started. Please verify your name and date of . Please click on the button with your first name. -> Great! Now we are in a secure chat environment. Protecting your health information is important to us. Ok, let's get started. Please verify your name and date of . Please click on the button with your first name. -> Sharonda Got it. On to the next question... Select the button with your last name. -> Mark Got it, thank you. Please enter your date of in MM/DD/YYYY format:(e.g., 08/18/1969 for Aug 18, 1969) -> 1955 Thank you for verifying your information. I'd like to ask you a few questions about how your recovery is going. Since leaving the hospital, do you have any new or worsening symptoms? -> Great! Now we are in a secure chat environment. Protecting your health information is important to us. Ok, let's get started. Please verify your name and date of . Please click on the button with your first name. -> Sharonda Got it. On to the next question... Select the button with your last name. -> Mark Got it, thank you. Please enter your date of in MM/DD/YYYY format:(e.g., 08/18/1969 for Aug 18, 1969) -> 1955 Thank you for verifying your information. I'd like to ask you a few questions about how your recovery is going. Since leaving the hospital, do you have any new or worsening symptoms? -> Yes And how have these symptoms changed since you first noticed them? -> Worse To reach [facility] attendant via phone, please call [ ](tel:[phone]) or toll-free at [ ](tel:[phone]). Thank you for your time and allowing us to care for you. We will check in on you over the next four weeks to ensure you continue to recover and support your needs. Inthe meantime, please reach out to your PCP for any questions or concerns.Thank you for choosing [facility]! -> Thank you for your time and allowing us to care for you. We will check in on you over the next fourweeks to ensure you continue to recover and support your needs. In the meantime, please reach out to your PCP for any questions or concerns.Thank you for choosing [facility]! -> Thank you for your time and allowing us to care for you. We will check in on you over the next fourweeks to ensure you continue to recover and support your needs. In the meantime, please reach out to your PCP for any questions or concerns.Thank you for choosing [facility]! -> Thank you for your time and allowing us to care for you. We will check in on you over the next fourweeks to ensure you continue to recover and support your needs. In the meantime, please reach out to your PCP for any questions or concerns.Thank you for choosing [facility]! -> Thank you for your time and allowing us to care for you. We will check in on you over the next fourweeks to ensure you continue to recover and support your needs. In the meantime, please reach out to your PCP for any questions or concerns.Thank you for choosing [facility]! -> Thank you for your time and allowing us to care for you. We will check in on you over the next fourweeks to ensure you continue to recover and support your needs. In the meantime, please reach out to your PCP for any questions or concerns.Thank you for choosing [facility]! -> [facility]07-23-2024 Miscellaneous Notes* Telephone Encounter - Chavez - 02/20/2024 6:00 PM EDT Record ID: [id number] Patient name: Sharonda Flores Date: February 20, 2024 - :00 Administered by: CHAVEZ Protocol: -> Great! Now we are in a secure chat environment. Protecting your health information is important to us. Ok, let's get started. Please verify your name and date of . Please click on the button with your first name. -> Sharonda Got it. On to the next question... Select the button with your last name. -> Mark Got it, thank you. Please enter your date of in MM/DD/YYYY format:(e.g., 08/18/1969 for Aug 18, 1969) -> 1955 Thank you for verifying your information. I'd like to ask you a few questions about how your recovery is going. Since leaving the hospital, do you have any new or worsening symptoms? -> No I'm glad to hear that. We encourage a follow-up appointment with a physician [facility]. It seems you have a follow up appointment scheduled, are you able to attend? -> Yes Thank you for your time and allowing us to care for you. We will check in on you over the next fourweeks to ensure you continue to recover and support your needs. In the meantime, please reach out to your PCP for any questions or concerns.Thank you for choosing [facility]! -> Great! Now we are in a secure chat environment. Protecting your health information is important to us. Ok, let's get started. Please verify your name and date of . Please click on the button with your first name. -> Great! Now we are in a secure chat environment. Protecting your health information is important to us. Ok, let's get started. Please verify your name and date of . Please click on the button with your first name. -> Sharonda Got it. On to the next question... Select the button with your last name. -> Mark Got it, thank you. Please enter your date of in MM/DD/YYYY format:(e.g., 08/18/1969 for Aug 18, 1969) -> 1955 Thank you for verifying your information. I'd like to ask you a few questions about how your recovery is going. Since leaving the hospital, do you have any new or worsening symptoms? -> Great! Now we are in a secure chat environment. Protecting your health information is important to us. Ok, let's get started. Please verify your name and date of . Please click on the button with your first name. -> Sharonda Got it. On to the next question... Select the button with your last name. -> Mark Got it, thank you. Please enter your date of in MM/DD/YYYY format:(e.g., 08/18/1969 for Aug 18, 1969) -> 1955 Thank you for verifying your information. I'd like to ask you a few questions about how your recovery is going. Since leaving the hospital, do you have any new or worsening symptoms? -> Yes And how have these symptoms changed since you first noticed them? -> Worse To reach [facility] institution attendant via phone, please call [ ]([phone]) or toll-free at [ ](tel:[phone]). Thank you for your time and allowing us to care for you. We will check in on you over the next four weeks to ensure you continue to recover and support your needs. Inthe meantime, please reach out to your PCP for any questions or concerns.Thank you for choosing [facility]! -> Thank you for your time and allowing us to care for you. We will check in on you over the next fourweeks to ensure you continue to recover and support your needs. In the meantime, please reach out to your PCP for any questions or concerns.Thank you for choosing [facility]! -> Thank you for your time and allowing us to care for you. We will check in on you over the next fourweeks to ensure you continue to recover and support your needs. In the meantime, please reach out to your PCP for any questions or concerns.Thank you for choosing [facility]! -> Thank you for your time and allowing us to care for you. We will check in on you over the next fourweeks to ensure you continue to recover and support your needs. In the meantime, please reach out to your PCP for any questions or concerns.Thank you for choosing [facility]! -> Thank you for your time and allowing us to care for you. We will check in on you over the next fourweeks to ensure you continue to recover and support your needs. In the meantime, please reach out to your PCP for any questions or concerns.Thank you for choosing [facility]! -> Thank you for your time and allowing us to care for you. We will check in on you over the next fourweeks to ensure you continue to recover and support your needs. In the meantime, please reach out to your PCP for any questions or concerns.Thank you for choosing [facility]! -> [facility] Telephone encounter Note * Telephone Encounter - Chavez - 02/17/2024 7:29 AM EDT Record ID: [id number] Patient name: Sharonda Flores Date: February 17, 2024 - 02:29 Administered by: CHAVEZ Protocol: -> Great! Now we are in a secure chat environment. Protecting your health information is important to us. Ok, let's get started. Please verify your name and date of . Please click on the button with your first name. -> Sharonda Got it. On to the next question... Select the button with your last name. -> Mark Got it, thank you. Please enter your date of in MM/DD/YYYY format:(e.g., 08/18/1969 for Aug 18, 1969) -> 1955 Thank you for verifying your information. I'd like to ask you a few questions about how your recovery is going. Since leaving the hospital, do you have any new or worsening symptoms? -> No I'm glad to hear that. We encourage a follow-up appointment with a physician [facility]. It seems you have a follow up appointment scheduled, are you able to attend? -> Yes Thank you for your time and allowing us to care for you. We will check in on you over the next fourweeks to ensure you continue to recover and support your needs. In the meantime, please reach out to your PCP for any questions or concerns.Thank you for choosing [facility]! -> Great! Now we are in a secure chat environment. Protecting your health information is important to us. Ok, let's get started. Please verify your name and date of . Please click on the button with your first name. -> Great! Now we are in a secure chat environment. Protecting your health information is important to us. Ok, let's get started. Please verify your name and date of . Please click on the button with your first name. -> Sharonda Got it. On to the next question... Select the button with your last name. -> Mark Got it, thank you. Please enter your date of in MM/DD/YYYY format:(e.g., 08/18/1969 for Aug 18, 1969) -> 1955 Thank you for verifying your information. I'd like to ask you a few questions about how your recovery is going. Since leaving the hospital, do you have any new or worsening symptoms? -> Great! Now we are in a secure chat environment. Protecting your health information is important to us. Ok, let's get started. Please verify your name and date of . Please click on the button with your first name. -> Sharonda Got it. On to the next question... Select the button with your last name. -> Mark Got it, thank you. Please enter your date of in MM/DD/YYYY format:(e.g., 08/18/1969 for Aug 18, 1969) -> 1955 Thank you for verifying your information. I'd like to ask you a few questions about how your recovery is going. Since leaving the hospital, do you have any new or worsening symptoms? -> Yes And how have these symptoms changed since you first noticed them? -> Worse To reach [facility] attendant via phone, please call [ ](tel:[phone]) or toll-free at [ ](tel:[phone]). Thank you for your time and allowing us to care for you. We will check in on you over the next four weeks to ensure you continue to recover and support your needs. Inthe meantime, please reach out to your PCP for any questions or concerns.Thank you for choosing [facility]! -> Thank you for your time and allowing us to care for you. We will check in on you over the next fourweeks to ensure you continue to recover and support your needs. In the meantime, please reach out to your PCP for any questions or concerns.Thank you for choosing [facility]! -> Thank you for your time and allowing us to care for you. We will check in on you over the next fourweeks to ensure you continue to recover and support your needs. In the meantime, please reach out to your PCP for any questions or concerns.Thank you for choosing [facility]! -> Thank you for your time and allowing us to care for you. We will check in on you over the next fourweeks to ensure you continue to recover and support your needs. In the meantime, please reach out to your PCP for any questions or concerns.Thank you for choosing [facility]! -> Thank you for your time and allowing us to care for you. We will check in on you over the next fourweeks to ensure you continue to recover and support your needs. In the meantime, please reach out to your PCP for any questions or concerns.Thank you for choosing [facility]! -> [facility]07-20-2024 Miscellaneous Notes* Telephone Encounter - Chavez - 02/17/2024 7:29 AM EDT Record ID: [id number] Patient name: Sharonda Flores Date: February 17, 2024 - 02:29 Administered by: CHAVEZ Protocol: -> Great! Now we are in a secure chat environment. Protecting your health information is important to us. Ok, let's get started. Please verify your name and date of . Please click on the button with your first name. -> Sharonda Got it. On to the next question... Select the button with your last name. -> Mark Got it, thank you. Please enter your date of in MM/DD/YYYY format:(e.g., 08/18/1969 for Aug 18, 1969) -> 1955 Thank you for verifying your information. I'd like to ask you a few questions about how your recovery is going. Since leaving the hospital, do you have any new or worsening symptoms? -> No I'm glad to hear that. We encourage a follow-up appointment with a physician [facility]. It seems you have a follow up appointment scheduled, are you able to attend? -> Yes Thank you for your time and allowing us to care for you. We will check in on you over the next fourweeks to ensure you continue to recover and support your needs. In the meantime, please reach out to your PCP for any questions or concerns.Thank you for choosing [facility]! -> Great! Now we are in a secure chat environment. Protecting your health information is important to us. Ok, let's get started. Please verify your name and date of . Please click on the button with your first name. -> Great! Now we are in a secure chat environment. Protecting your health information is important to us. Ok, let's get started. Please verify your name and date of . Please click on the button with your first name. -> Sharonda Got it. On to the next question... Select the button with your last name. -> Mark Got it, thank you. Please enter your date of in MM/DD/YYYY format:(e.g., 08/18/1969 for Aug 18, 1969) -> 1955 Thank you for verifying your information. I'd like to ask you a few questions about how your recovery is going. Since leaving the hospital, do you have any new or worsening symptoms? -> Great! Now we are in a secure chat environment. Protecting your health information is important to us. Ok, let's get started. Please verify your name and date of . Please click on the button with your first name. -> Sharonda Got it. On to the next question... Select the button with your last name. -> Mark Got it, thank you. Please enter your date of in MM/DD/YYYY format:(e.g., 08/18/1969 for Aug 18, 1969) -> 1955 Thank you for verifying your information. I'd like to ask you a few questions about how your recovery is going. Since leaving the hospital, do you have any new or worsening symptoms? -> Yes And how have these symptoms changed since you first noticed them? -> Worse To reach [facility] attendant via phone, please call [ ](tel:[phone]) or toll-free at [ ](tel:[phone]). Thank you for your time and allowing us to care for you. We will check in on you over the next four weeks to ensure you continue to recover and support your needs. Inthe meantime, please reach out to your PCP for any questions or concerns.Thank you for choosing [facility]! -> Thank you for your time and allowing us to care for you. We will check in on you over the next fourweeks to ensure you continue to recover and support your needs. In the meantime, please reach out to your PCP for any questions or concerns.Thank you for choosing [facility]! -> Thank you for your time and allowing us to care for you. We will check in on you over the next fourweeks to ensure you continue to recover and support your needs. In the meantime, please reach out to your PCP for any questions or concerns.Thank you for choosing [facility]! -> Thank you for your time and allowing us to care for you. We will check in on you over the next fourweeks to ensure you continue to recover and support your needs. In the meantime, please reach out to your PCP for any questions or concerns.Thank you for choosing [facility]! -> Thank you for your time and allowing us to care for you. We will check in on you over the next fourweeks to ensure you continue to recover and support your needs. In the meantime, please reach out to your PCP for any questions or concerns.Thank you for choosing [facility]! -> [facility] Telephone encounter Note * Telephone Encounter - Chavez - 02/17/2024 5:21 AM EDT Record ID: [id number] Patient name: Sharonda Flores Date: February 17, 2024 - 12:21 Administered by: CHAVEZ Protocol: -> Great! Now we are in a secure chat environment. Protecting your health information is important to us. Ok, let's get started. Please verify your name and date of . Please click on the button with your first name. -> Sharonda Got it. On to the next question... Select the button with your last name. -> Mark Got it, thank you. Please enter your date of in MM/DD/YYYY format:(e.g., 08/18/1969 for Aug 18, 1969) -> 1955 Thank you for verifying your information. I'd like to ask you a few questions about how your recovery is going. Since leaving the hospital, do you have any new or worsening symptoms? -> No I'm glad to hear that. We encourage a follow-up appointment with a physician [facility]. It seems you have a follow up appointment scheduled, are you able to attend? -> Yes Thank you for your time and allowing us to care for you. We will check in on you over the next fourweeks to ensure you continue to recover and support your needs. In the meantime, please reach out to your PCP for any questions or concerns.Thank you for choosing [facility]! -> Great! Now we are in a secure chat environment. Protecting your health information is important to us. Ok, let's get started. Please verify your name and date of . Please click on the button with your first name. -> Great! Now we are in a secure chat environment. Protecting your health information is important to us. Ok, let's get started. Please verify your name and date of . Please click on the button with your first name. -> Sharonda Got it. On to the next question... Select the button with your last name. -> Mark Got it, thank you. Please enter your date of in MM/DD/YYYY format:(e.g., 08/18/1969 for Aug 18, 1969) -> 1955 Thank you for verifying your information. I'd like to ask you a few questions about how your recovery is going. Since leaving the hospital, do you have any new or worsening symptoms? -> Great! Now we are in a secure chat environment. Protecting your health information is important to us. Ok, let's get started. Please verify your name and date of . Please click on the button with your first name. -> Sharonda Got it. On to the next question... Select the button with your last name. -> Mark Got it, thank you. Please enter your date of in MM/DD/YYYY format:(e.g., 08/18/1969 for Aug 18, 1969) -> 1955 Thank you for verifying your information. I'd like to ask you a few questions about how your recovery is going. Since leaving the hospital, do you have any new or worsening symptoms? -> Yes And how have these symptoms changed since you first noticed them? -> Worse To reach [facility] via phone, please call [ ]([phone]) or toll-free at [ ](tel:[phone]). Thank you for your time and allowing us to care for you. We will check in on you over the next four weeks to ensure you continue to recover and support your needs. Inthe meantime, please reach out to your PCP for any questions or concerns.Thank you for choosing [facility]! -> Thank you for your time and allowing us to care for you. We will check in on you over the next fourweeks to ensure you continue to recover and support your needs. In the meantime, please reach out to your PCP for any questions or concerns.Thank you for choosing [facility]! -> Thank you for your time and allowing us to care for you. We will check in on you over the next fourweeks to ensure you continue to recover and support your needs. In the meantime, please reach out to your PCP for any questions or concerns.Thank you for choosing [facility]! -> Thank you for your time and allowing us to care for you. We will check in on you over the next fourweeks to ensure you continue to recover and support your needs. In the meantime, please reach out to your PCP for any questions or concerns.Thank you for choosing [facility]! -> [facility]07-20-2024 Miscellaneous Notes* Telephone Encounter - Chavez - 02/17/2024 5:21 AM EDT Record ID: [id number] Patient name: Sharonda Flores Date: February 17, 2024 - 12:21 Administered by: CHAVEZ Protocol: -> Great! Now we are in a secure chat environment. Protecting your health information is important to us. Ok, let's get started. Please verify your name and date of . Please click on the button with your first name. -> Sharonda Got it. On to the next question... Select the button with your last name. -> Mark Got it, thank you. Please enter your date of in MM/DD/YYYY format:(e.g., 08/18/1969 for Aug 18, 1969) -> 1955 Thank you for verifying your information. I'd like to ask you a few questions about how your recovery is going. Since leaving the hospital, do you have any new or worsening symptoms? -> No I'm glad to hear that. We encourage a follow-up [facility]. It seems you have a follow up appointment scheduled, are you able to attend? -> Yes Thank you for your time and allowing us to care for you. We will check in on you over the next fourweeks to ensure you continue to recover and support your needs. In the meantime, please reach out to your PCP for any questions or concerns.Thank you for choosing [facility]! -> Great! Now we are in a secure chat environment. Protecting your health information is important to us. Ok, let's get started. Please verify your name and date of . Please click on the button with your first name. -> Great! Now we are in a secure chat environment. Protecting your health information is important to us. Ok, let's get started. Please verify your name and date of . Please click on the button with your first name. -> Sharonda Got it. On to the next question... Select the button with your last name. -> Mark Got it, thank you. Please enter your date of in MM/DD/YYYY format:(e.g., 08/18/1969 for Aug 18, 1969) -> 1955 Thank you for verifying your information. I'd like to ask you a few questions about how your recovery is going. Since leaving the hospital, do you have any new or worsening symptoms? -> Great! Now we are in a secure chat environment. Protecting your health information is important to us. Ok, let's get started. Please verify your name and date of . Please click on the button with your first name. -> Sharonda Got it. On to the next question... Select the button with your last name. -> Mark Got it, thank you. Please enter your date of in MM/DD/YYYY format:(e.g., 08/18/1969 for Aug 18, 1969) -> 1955 Thank you for verifying your information. I'd like to ask you a few questions about how your recovery is going. Since leaving the hospital, do you have any new or worsening symptoms? -> Yes And how have these symptoms changed since you first noticed them? -> Worse To reach [facility] via phone, please call [ ]([phone]) or toll-free at [ ](tel:[phone]). Thank you for your time and allowing us to care for you. We will check in on you over the next four weeks to ensure you continue to recover and support your needs. Inthe meantime, please reach out to your PCP for any questions or concerns.Thank you for choosing [facility]! -> Thank you for your time and allowing us to care for you. We will check in on you over the next fourweeks to ensure you continue to recover and support your needs. In the meantime, please reach out to your PCP for any questions or concerns.Thank you for choosing [facility]! -> Thank you for your time and allowing us to care for you. We will check in on you over the next fourweeks to ensure you continue to recover and support your needs. In the meantime, please reach out to your PCP for any questions or concerns.Thank you for choosing [facility]! -> Thank you for your time and allowing us to care for you. We will check in on you over the next fourweeks to ensure you continue to recover and support your needs. In the meantime, please reach out to your PCP for any questions or concerns.Thank you for choosing [facility]! -> [facility] Telephone encounter Note * Telephone Encounter - Chavez - 02/17/2024 5:20 AM EDT Record ID: [id number] Patient name: Sharonda Flores Date: February 17, 2024 - 12:20 Administered by: CHAVEZ Protocol: -> Great! Now we are in a secure chat environment. Protecting your health information is important to us. Ok, let's get started. Please verify your name and date of . Please click on the button with your first name. -> Sharonda Got it. On to the next question... Select the button with your last name. -> Mark Got it, thank you. Please enter your date of in MM/DD/YYYY format:(e.g., 08/18/1969 for Aug 18, 1969) -> 1955 Thank you for verifying your information. I'd like to ask you a few questions about how your recovery is going. Since leaving the hospital, do you have any new or worsening symptoms? -> No I'm glad to hear that. We encourage a follow-up appointment with a physician within two weeks of being discharged from [facility] to oversee your recovery. It seems you have a follow up appointment scheduled, are you able to attend? -> Yes Thank you for your time and allowing us to care for you. We will check in on you over the next fourweeks to ensure you continue to recover and support your needs. In the meantime, please reach out to your PCP for any questions or concerns.Thank you for choosing [facility]! -> Great! Now we are in a secure chat environment. Protecting your health information is important to us. Ok, let's get started. Please verify your name and date of . Please click on the button with your first name. -> Great! Now we are in a secure chat environment. Protecting your health information is important to us. Ok, let's get started. Please verify your name and date of . Please click on the button with your first name. -> Sharonda Got it. On to the next question... Select the button with your last name. -> Mark Got it, thank you. Please enter your date of in MM/DD/YYYY format:(e.g., 08/18/1969 for Aug 18, 1969) -> 1955 Thank you for verifying your information. I'd like to ask you a few questions about how your recovery is going. Since leaving the hospital, do you have any new or worsening symptoms? -> Great! Now we are in a secure chat environment. Protecting your health information is important to us. Ok, let's get started. Please verify your name and date of . Please click on the button with your first name. -> Sharonda Got it. On to the next question... Select the button with your last name. -> Mark Got it, thank you. Please enter your date of in MM/DD/YYYY format:(e.g., 08/18/1969 for Aug 18, 1969) -> 1955 Thank you for verifying your information. I'd like to ask you a few questions about how your recovery is going. Since leaving the hospital, do you have any new or worsening symptoms? -> Yes And how have these symptoms changed since you first noticed them? -> Worse To reach [facility] via phone, please call [ ]([phone]) or toll-free at [ ]([phone]). Thank you for your time and allowing us to care for you. We will check in on you over the next four weeks to ensure you continue to recover and support your needs. Inthe meantime, please reach out to your PCP for any questions or concerns.Thank you for choosing [facility]! -> Thank you for your time and allowing us to care for you. We will check in on you over the next fourweeks to ensure you continue to recover and support your needs. In the meantime, please reach out to your PCP for any questions or concerns.Thank you for choosing [facility]! -> Thank you for your time and allowing us to care for you. We will check in on you over the next fourweeks to ensure you continue to recover and support your needs. In the meantime, please reach out to your PCP for any questions or concerns.Thank you for choosing [facility]! -> [facility]07-20-2024 Telephone encounter Note* Telephone Encounter - Chavez - 02/17/2024 5:20 AM EDT Record ID: [id number] Patient name: Sharonda Flores Date: February 17, 2024 - 12:20 Administered by: CHAVEZ Protocol: -> Great! Now we are in a secure chat environment. Protecting your health information is important to us. Ok, let's get started. Please verify your name and date of . Please click on the button with your first name. -> Sharonda Got it. On to the next question... Select the button with your last name. -> Mark Got it, thank you. Please enter your date of in MM/DD/YYYY format:(e.g., 08/18/1969 for Aug 18, 1969) -> 1955 Thank you for verifying your information. I'd like to ask you a few questions about how your recovery is going. Since leaving the hospital, do you have any new or worsening symptoms? -> No I'm glad to hear that. We encourage a follow-up appointment with a [facility]. It seems you have a follow up appointment scheduled, are you able to attend? -> Yes Thank you for your time and allowing us to care for you. We will check in on you over the next fourweeks to ensure you continue to recover and support your needs. In the meantime, please reach out to your PCP for any questions or concerns.Thank you for choosing [facility]! -> Great! Now we are in a secure chat environment. Protecting your health information is important to us. Ok, let's get started. Please verify your name and date of . Please click on the button with your first name. -> Great! Now we are in a secure chat environment. Protecting your health information is important to us. Ok, let's get started. Please verify your name and date of . Please click on the button with your first name. -> Sharonda Got it. On to the next question... Select the button with your last name. -> Mark Got it, thank you. Please enter your date of in MM/DD/YYYY format:(e.g., 08/18/1969 for Aug 18, 1969) -> 1955 Thank you for verifying your information. I'd like to ask you a few questions about how your recovery is going. Since leaving the hospital, do you have any new or worsening symptoms? -> Great! Now we are in a secure chat environment. Protecting your health information is important to us. Ok, let's get started. Please verify your name and date of . Please click on the button with your first name. -> Sharonda Got it. On to the next question... Select the button with your last name. -> Mark Got it, thank you. Please enter your date of in MM/DD/YYYY format:(e.g., 08/18/1969 for Aug 18, 1969) -> 1955 Thank you for verifying your information. I'd like to ask you a few questions about how your recovery is going. Since leaving the hospital, do you have any new or worsening symptoms? -> Yes And how have these symptoms changed since you first noticed them? -> Worse To reach [facility] via phone, please call [ ]([phone]) or toll-free at [ ](tel:[phone]). Thank you for your time and allowing us to care for you. We will check in on you over the next four weeks to ensure you continue to recover and support your needs. Inthe meantime, please reach out to your PCP for any questions or concerns.Thank you for choosing [facility]! -> Thank you for your time and allowing us to care for you. We will check in on you over the next fourweeks to ensure you continue to recover and support your needs. In the meantime, please reach out to your PCP for any questions or concerns.Thank you for choosing [facility]! -> [facility]07-20-2024 Miscellaneous Notes* Telephone Encounter - Chavez - 02/17/2024 5:20 AM EDT Record ID: [id number] Patient name: Sharonda Flores Date: February 17, 2024 - 12:20 Administered by: CHAVEZ Protocol: -> Great! Now we are in a secure chat environment. Protecting your health information is important to us. Ok, let's get started. Please verify your name and date of . Please click on the button with your first name. -> Lutherpaulino Got it. On to the next question... Select the button with your last name. -> Mark Got it, thank you. Please enter your date of in MM/DD/YYYY format:(e.g., 08/18/1969 for Aug 18, 1969) -> 1955 Thank you for verifying your information. I'd like to ask you a few questions about how your recovery is going. Since leaving the hospital, do you have any new or worsening symptoms? -> No I'm glad to hear that. We encourage a follow-up appointment with a physician [facility]. It seems you have a follow up appointment scheduled, are you able to attend? -> Yes Thank you for your time and allowing us to care for you. We will check in on you over the next fourweeks to ensure you continue to recover and support your needs. In the meantime, please reach out to your PCP for any questions or concerns.Thank you for choosing [facility]! -> Great! Now we are in a secure chat environment. Protecting your health information is important to us. Ok, let's get started. Please verify your name and date of . Please click on the button with your first name. -> Great! Now we are in a secure chat environment. Protecting your health information is important to us. Ok, let's get started. Please verify your name and date of . Please click on the button with your first name. -> Sharonda Got it. On to the next question... Select the button with your last name. -> Mark Got it, thank you. Please enter your date of in MM/DD/YYYY format:(e.g., 08/18/1969 for Aug 18, 1969) -> 1955 Thank you for verifying your information. I'd like to ask you a few questions about how your recovery is going. Since leaving the hospital, do you have any new or worsening symptoms? -> Great! Now we are in a secure chat environment. Protecting your health information is important to us. Ok, let's get started. Please verify your name and date of . Please click on the button with your first name. -> Sharonda Got it. On to the next question... Select the button with your last name. -> Mark Got it, thank you. Please enter your date of in MM/DD/YYYY format:(e.g., 08/18/1969 for Aug 18, 1969) -> 1955 Thank you for verifying your information. I'd like to ask you a few questions about how your recovery is going. Since leaving the hospital, do you have any new or worsening symptoms? -> Yes And how have these symptoms changed since you first noticed them? -> Worse To reach [facility] via phone, please call [ ]([phone]) or toll-free at [ ](tel:[phone]). Thank you for your time and allowing us to care for you. We will check in on you over the next four weeks to ensure you continue to recover and support your needs. Inthe meantime, please reach out to your PCP for any questions or concerns.Thank you for choosing [facility]! -> Thank you for your time and allowing us to care for you. We will check in on you over the next fourweeks to ensure you continue to recover and support your needs. In the meantime, please reach out to your PCP for any questions or concerns.Thank you for choosing [facility]! -> Thank you for your time and allowing us to care for you. We will check in on you over the next fourweeks to ensure you continue to recover and support your needs. In the meantime, please reach out to your PCP for any questions or concerns.Thank you for choosing [facility]! -> documented in [facility] Miscellaneous Notes* Telephone Encounter - Chavez - 02/17/2024 5:20 AM EDT Record ID: [id number] Patient name: Sharonda Flores Date: February 17, 2024 - 12:20 Administered by: CHAVEZ Protocol: -> Great! Now we are in a secure chat environment. Protecting your health information is important to us. Ok, let's get started. Please verify your name and date of . Please click on the button with your first name. -> Sharonda Got it. On to the next question... Select the button with your last name. -> Mark Got it, thank you. Please enter your date of in MM/DD/YYYY format:(e.g., 08/18/1969 for Aug 18, 1969) -> 1955 Thank you for verifying your information. I'd like to ask you a few questions about how your recovery is going. Since leaving the hospital, do you have any new or worsening symptoms? -> No I'm glad to hear that. We encourage a follow-up appointment with a physician [facility]. It seems you have a follow up appointment scheduled, are you able to attend? -> Yes Thank you for your time and allowing us to care for you. We will check in on you over the next fourweeks to ensure you continue to recover and support your needs. In the meantime, please reach out to your PCP for any questions or concerns.Thank you for choosing [facility]! -> Great! Now we are in a secure chat environment. Protecting your health information is important to us. Ok, let's get started. Please verify your name and date of . Please click on the button with your first name. -> Great! Now we are in a secure chat environment. Protecting your health information is important to us. Ok, let's get started. Please verify your name and date of . Please click on the button with your first name. -> Sharonda Got it. On to the next question... Select the button with your last name. -> Mark Got it, thank you. Please enter your date of in MM/DD/YYYY format:(e.g., 08/18/1969 for Aug 18, 1969) -> 1955 Thank you for verifying your information. I'd like to ask you a few questions about how your recovery is going. Since leaving the hospital, do you have any new or worsening symptoms? -> Great! Now we are in a secure chat environment. Protecting your health information is important to us. Ok, let's get started. Please verify your name and date of . Please click on the button with your first name. -> Sharonda Got it. On to the next question... Select the button with your last name. -> Mark Got it, thank you. Please enter your date of in MM/DD/YYYY format:(e.g., 08/18/1969 for Aug 18, 1969) -> 1955 Thank you for verifying your information. I'd like to ask you a few questions about how your recovery is going. Since leaving the hospital, do you have any new or worsening symptoms? -> Yes And how have these symptoms changed since you first noticed them? -> Worse To reach [facility] via phone, please call [ ]([phone]) or toll-free at [ ](tel:[phone]). Thank you for your time and allowing us to care for you. We will check in on you over the next four weeks to ensure you continue to recover and support your needs. Inthe meantime, please reach out to your PCP for any questions or concerns.Thank you for choosing [facility]! -> Thank you for your time and allowing us to care for you. We will check in on you over the next fourweeks to ensure you continue to recover and support your needs. In the meantime, please reach out to your PCP for any questions or concerns.Thank you for choosing [facility]! -> documented in this encounter[facility]07[facility] Telephone encounter Note * Telephone Encounter - Chavez - 02/17/2024 5:19 AM EDT Record ID: [id number] Patient name: Sharonda Flores Date: February 17, 2024 - 12:19 Administered by: CHAVEZ Protocol: -> Great! Now we are in a secure chat environment. Protecting your health information is important to us. Ok, let's get started. Please verify your name and date of . Please click on the button with your first name. -> Sharonda Got it. On to the next question... Select the button with your last name. -> Mark Got it, thank you. Please enter your date of in MM/DD/YYYY format:(e.g., 08/18/1969 for Aug 18, 1969) -> 1955 Thank you for verifying your information. I'd like to ask you a few questions about how your recovery is going. Since leaving the hospital, do you have any new or worsening symptoms? -> No I'm glad to hear that. We encourage a follow-up appointment with a [facility]. It seems you have a follow up appointment scheduled, are you able to attend? -> Yes Thank you for your time and allowing us to care for you. We will check in on you over the next fourweeks to ensure you continue to recover and support your needs. In the meantime, please reach out to your PCP for any questions or concerns.Thank you for choosing [facility]! -> Great! Now we are in a secure chat environment. Protecting your health information is important to us. Ok, let's get started. Please verify your name and date of . Please click on the button with your first name. -> Great! Now we are in a secure chat environment. Protecting your health information is important to us. Ok, let's get started. Please verify your name and date of . Please click on the button with your first name. -> Sharonda Got it. On to the next question... Select the button with your last name. -> Mark Got it, thank you. Please enter your date of in MM/DD/YYYY format:(e.g., 08/18/1969 for Aug 18, 1969) -> 1955 Thank you for verifying your information. I'd like to ask you a few questions about how your recovery is going. Since leaving the hospital, do you have any new or worsening symptoms? -> Great! Now we are in a secure chat environment. Protecting your health information is important to us. Ok, let's get started. Please verify your name and date of . Please click on the button with your first name. -> Sharonda Got it. On to the next question... Select the button with your last name. -> Mark Got it, thank you. Please enter your date of in MM/DD/YYYY format:(e.g., 08/18/1969 for Aug 18, 1969) -> 1955 Thank you for verifying your information. I'd like to ask you a few questions about how your recovery is going. Since leaving the hospital, do you have any new or worsening symptoms? -> Yes And how have these symptoms changed since you first noticed them? -> Worse To reach Nurse children's institution attendant via phone, please call [ ]([phone]) or toll-free at [ ](tel:[phone]). Thank you for your time and allowing us to care for you. We will check in on you over the next four weeks to ensure you continue to recover and support your needs. Inthe meantime, please reach out to your PCP for any questions or concerns.Thank you for choosing [facility]! -> [facility]07-20-2024 Miscellaneous Notes* Telephone Encounter - Chavez - 02/17/2024 5:19 AM EDT Record ID: [id number] Patient name: Sharonda Flores Date: February 17, 2024 - 12:19 Administered by: CHAVEZ Protocol: -> Great! Now we are in a secure chat environment. Protecting your health information is important to us. Ok, let's get started. Please verify your name and date of . Please click on the button with your first name. -> Sharonda Got it. On to the next question... Select the button with your last name. -> Mark Got it, thank you. Please enter your date of in MM/DD/YYYY format:(e.g., 08/18/1969 for Aug 18, 1969) -> 1955 Thank you for verifying your information. I'd like to ask you a few questions about how your recovery is going. Since leaving the hospital, do you have any new or worsening symptoms? -> No I'm glad to hear that. We encourage a follow-up appointment with a physician within two weeks of being discharged from [facility] to oversee your recovery. It seems you have a follow up appointment scheduled, are you able to attend? -> Yes Thank you for your time and allowing us to care for you. We will check in on you over the next fourweeks to ensure you continue to recover and support your needs. In the meantime, please reach out to your PCP for any questions or concerns.Thank you for choosing [facility]! -> Great! Now we are in a secure chat environment. Protecting your health information is important to us. Ok, let's get started. Please verify your name and date of . Please click on the button with your first name. -> Great! Now we are in a secure chat environment. Protecting your health information is important to us. Ok, let's get started. Please verify your name and date of . Please click on the button with your first name. -> Sharonda Got it. On to the next question... Select the button with your last name. -> Mark Got it, thank you. Please enter your date of in MM/DD/YYYY format:(e.g., 08/18/1969 for Aug 18, 1969) -> 1955 Thank you for verifying your information. I'd like to ask you a few questions about how your recovery is going. Since leaving the hospital, do you have any new or worsening symptoms? -> Great! Now we are in a secure chat environment. Protecting your health information is important to us. Ok, let's get started. Please verify your name and date of . Please click on the button with your first name. -> Sharonda Got it. On to the next question... Select the button with your last name. -> Mark Got it, thank you. Please enter your date of in MM/DD/YYYY format:(e.g., 08/18/1969 for Aug 18, 1969) -> 1955 Thank you for verifying your information. I'd like to ask you a few questions about how your recovery is going. Since leaving the hospital, do you have any new or worsening symptoms? -> Yes And how have these symptoms changed since you first noticed them? -> Worse To reach Nurse children's institution attendant via phone, please call [ ]([phone]) or toll-free at [ ](tel:[phone]). Thank you for your time and allowing us to care for you. We will check in on you over the next four weeks to ensure you continue to recover and support your needs. Inthe meantime, please reach out to your PCP for any questions or concerns.Thank you for choosing [facility]! -> [facility] Telephone encounter Note * Telephone Encounter - Chavez - 02/16/2024 10:00 PM EDT Record ID: [id number] Patient name: Sharonda Flores Date: February 16, 2024 - 05:00 Administered by: CHAVEZ Protocol: -> Great! Now we are in a secure chat environment. Protecting your health information is important to us. Ok, let's get started. Please verify your name and date of . Please click on the button with your first name. -> Sharonda Got it. On to the next question... Select the button with your last name. -> Mark Got it, thank you. Please enter your date of in MM/DD/YYYY format:(e.g., 08/18/1969 for Aug 18, 1969) -> 1955 Thank you for verifying your information. I'd like to ask you a few questions about how your recovery is going. Since leaving the hospital, do you have any new or worsening symptoms? -> No I'm glad to hear that. We encourage a follow-up appointment [facility]. It seems you have a follow up appointment scheduled, are you able to attend? -> Yes Thank you for your time and allowing us to care for you. We will check in on you over the next fourweeks to ensure you continue to recover and support your needs. In the meantime, please reach out to your PCP for any questions or concerns.Thank you for choosing [facility]! -> Great! Now we are in a secure chat environment. Protecting your health information is important to us. Ok, let's get started. Please verify your name and date of . Please click on the button with your first name. -> Great! Now we are in a secure chat environment. Protecting your health information is important to us. Ok, let's get started. Please verify your name and date of . Please click on the button with your first name. -> Sharonda Got it. On to the next question... Select the button with your last name. -> Mark Got it, thank you. Please enter your date of in MM/DD/YYYY format:(e.g., 08/18/1969 for Aug 18, 1969) -> 1955 Thank you for verifying your information. I'd like to ask you a few questions about how your recovery is going. Since leaving the hospital, do you have any new or worsening symptoms? -> Great! Now we are in a secure chat environment. Protecting your health information is important to us. Ok, let's get started. Please verify your name and date of . Please click on the button with your first name. -> Sharonda Got it. On to the next question... Select the button with your last name. -> Mark Got it, thank you. Please enter your date of in MM/DD/YYYY format:(e.g., 08/18/1969 for Aug 18, 1969) -> 1955 Thank you for verifying your information. I'd like to ask you a few questions about how your recovery is going. Since leaving the hospital, do you have any new or worsening symptoms? -> Yes And how have these symptoms changed since you first noticed them? -> Worse [facility]07-19-2024 Miscellaneous Notes* Telephone Encounter - Chavez - 02/16/2024 10:00 PM EDT Record ID: [id number] Patient name: Sharonda Flores Date: February 16, 2024 - 05:00 Administered by: CHAVEZ Protocol: -> Great! Now we are in a secure chat environment. Protecting your health information is important to us. Ok, let's get started. Please verify your name and date of . Please click on the button with your first name. -> Sharonda Got it. On to the next question... Select the button with your last name. -> Mark Got it, thank you. Please enter your date of in MM/DD/YYYY format:(e.g., 08/18/1969 for Aug 18, 1969) -> 1955 Thank you for verifying your information. I'd like to ask you a few questions about how your recovery is going. Since leaving the hospital, do you have any new or worsening symptoms? -> No I'm glad to hear that. We encourage a follow-up appointment with a physician [facility]. It seems you have a follow up appointment scheduled, are you able to attend? -> Yes Thank you for your time and allowing us to care for you. We will check in on you over the next fourweeks to ensure you continue to recover and support your needs. In the meantime, please reach out to your PCP for any questions or concerns.Thank you for choosing [facility]! -> Great! Now we are in a secure chat environment. Protecting your health information is important to us. Ok, let's get started. Please verify your name and date of . Please click on the button with your first name. -> Great! Now we are in a secure chat environment. Protecting your health information is important to us. Ok, let's get started. Please verify your name and date of . Please click on the button with your first name. -> Sharonda Got it. On to the next question... Select the button with your last name. -> Mark Got it, thank you. Please enter your date of in MM/DD/YYYY format:(e.g., 08/18/1969 for Aug 18, 1969) -> 1955 Thank you for verifying your information. I'd like to ask you a few questions about how your recovery is going. Since leaving the hospital, do you have any new or worsening symptoms? -> Great! Now we are in a secure chat environment. Protecting your health information is important to us. Ok, let's get started. Please verify your name and date of . Please click on the button with your first name. -> Sharonda Got it. On to the next question... Select the button with your last name. -> Mark Got it, thank you. Please enter your date of in MM/DD/YYYY format:(e.g., 08/18/1969 for Aug 18, 1969) -> 1955 Thank you for verifying your information. I'd like to ask you a few questions about how your recovery is going. Since leaving the hospital, do you have any new or worsening symptoms? -> Yes And how have these symptoms changed since you first noticed them? -> Worse documented [facility] Telephone encounter Note * Telephone Encounter - Mackenzie Lozano RN - 02/16/2024 5:10 PM EDT Patient calling regarding pain medication following recent hospitalization, lung lobectomy. Conferenced to Dr. Nadege Tadeo Answering Service [ ] to speak with provider superintendent landfill operations for Cardiovascular Surgery. Advised GO TO THE EMERGENCY ROOM OR CALL 911 IF: * You develop any new symptoms * Your condition worsens * You are concerned or anxious about your condition for any other reason. [facility]07-19-2024 Miscellaneous Notes* Telephone Encounter - Mackenzie Lozano RN - 02/16/2024 5:10 PM EDT Patient calling regarding pain medication following recent hospitalization, lung lobectomy. Conferenced to Dr. Nadege Tadeo Answering Service [ ] to speak with provider superintendent landfill operations for Cardiovascular Surgery. Advised GO TO THE EMERGENCY ROOM OR CALL 911 IF: * You develop any new symptoms * Your condition worsens * You are concerned or anxious about your condition for any other reason. documented in this encounterA[facility]07-[facility]-2024 Telephone encounter Note * Telephone Encounter - Chavez - 02/15/2024 1:15 PM EDT Record ID: [id number] Patient name: Sharonda Flores Date: February 15, 2024 - 08:15 Administered by: CHAVEZ Protocol: -> Great! Now we are in a secure chat environment. Protecting your health information is important to us. Ok, let's get started. Please verify your name and date of . Please click on the button with your first name. -> Sharonda Got it. On to the next question... Select the button with your last name. -> Mark Got it, thank you. Please enter your date of in MM/DD/YYYY format:(e.g., 08/18/1969 for Aug 18, 1969) -> 1955 Thank you for verifying your information. I'd like to ask you a few questions about how your recovery is going. Since leaving the hospital, do you have any new or worsening symptoms? -> No I'm glad to hear that. We encourage a follow-up appointment with a physician [facility]. It seems you have a follow up appointment scheduled, are you able to attend? -> Yes [facility]07-18-2024 Miscellaneous Notes* Telephone Encounter - Sabiharadha - 02/15/2024 1:15 PM EDT Record ID: [id number] Patient name: Sharonda Flores Date: February 15, 2024 - 08:15 Administered by: HCAVEZ Protocol: -> Great! Now we are in a secure chat environment. Protecting your health information is important to us. Ok, let's get started. Please verify your name and date of . Please click on the button with your first name. -> Sharonda Got it. On to the next question... Select the button with your last name. -> Mark Got it, thank you. Please enter your date of in MM/DD/YYYY format:(e.g., 08/18/1969 for Aug 18, 1969) -> 1955 Thank you for verifying your information. I'd like to ask you a few questions about how your recovery is going. Since leaving the hospital, do you have any new or worsening symptoms? -> No I'm glad to hear that. We encourage a follow-up appointment with a physician within [facility]. It seems you have a follow up appointment scheduled, are you able to attend? -> Yes documented in this encounterAden[facility] Center2024 NoteHNO ID: [id number] Author: ASHANTI DESAI CPhT Service: Pharmacy Author Type: Pill Coater Type: Plan of Care Filed: 02/14/2024 10:43 Note Text: PHARMACY BEDSIDE DELIVERY SERVICE Patient Name: Sharonda Flores The marked outpatient medications were Filled at: [place] and delivered to the patient's bedside to patient-rn okay with narc delivery Medication List START taking these medications oxyCODONE IR 5 mg immediate release tablet Commonly known as: ROXICODONE Take 1 tablet by mouth every 8 hours as needed for pain for up to 3 days. CONTINUE taking these medications Aspirin 81 mg Tab atorvastatin 80 mg tablet Commonly known as: LIPITOR Take 1 tablet by mouth daily at bedtime. For cholesterol. carvedilol 6.25 mg tablet Commonly known as: COREG ezetimibe 10 mg tablet Commonly known as: ZETIA Take 1 tablet by mouth once daily. lisinopril 5 mg tablet Commonly known as: ZESTRIL nitroglycerin sublingual 0.4 mg SL tablet Commonly known as: NITROQUICK Dissolve 1 tablet under the tongue every 5 minutes as needed. You might also be taking other medications not listed above. If you have questions about any of your other medications, talk to the person who prescribed them or your Primary Care Provider. Ashanti Desai [facility] PAGER: Ashanti Desai [phone] 02/14/24 10:43 AM February 14, 2024 10:42 [facility]07-16-2024 NoteHNO ID: [id number] Author: ALLEN DURANT DO Service: General Surgery Author Type: Resident Type: Plan of Care Filed: 02/13/2024 13:42 Note Text: Plan of care CT removed at bedside. Patient tolerated will. Occlusive dressing placed over the top. Post-pull CXR ordered for 4:30pm Allen Durant DO February 13, 2024 1:42 [facility]07-16-2024 NoteHNO ID: [id number] Author: NADEGE TADEO MD Service: General Surgery Author Type: Physician Type: Progress Notes Filed: 02/13/2024 13:59 Note Text: Thoracic Surgery Progress Note SERVICE DATE: February 13, 2024 Thoracic Service Pager: For questions or concerns Mon-Fri 6a-5p please page [phone]. After 5pm and on Weekends and Holidays, please page [phone] if in ICU or [phone] if on RNF. Subjective SUBJECTIVE: Patient seen in the AM. NAOE. VSS. Patient had minimal out from CT, will plan to remove today. Diet: DIET REGULAR Objective OBJECTIVE: Vitals: Temp (24hrs), Av.7 ?C (98 ?F), Min:36.3 ?C (97.3 ?F), Max:37.1 ?C (98.8 ?F) BP 124/51 Pulse 63 Temp 36.3 ?C (97.3 ?F) (Oral) Resp 18 Ht 167.6 cm (5' 6) Wt 77.9 kg (171 lb 12.8 oz) SpO2 95% BMI 27.73 kg/m? O2 Therapy: Room Air IANDO: Date 02/12/24699 - 02/13/24 0659 02/13/24699 - 02/14/24 0659 Shift 2780-6840 6932-3840 0884-8628 24 Hour Total 8599-2677 9551-7858 6320-7670 24 Hour Total INTAKE PO 480 240 720 PO 480 240 720 Shift Total 480 240 720 OUTPUT Urine 50 500 550 325 325 Void (ml) 50 500 550 325 325 Urine Not Saved. 1 x 1 x 2 x Chest Tube 30 30 Chest Tube Output (Chest Tube Right Lateral Pleural) 30 30 Shift Total 80 500 580 325 325 Weight (kg) 77.9 77.9 77.9 77.9 77.9 77.9 77.9 77.9 MEDICATIONS Current Facility-Administered Medications Medication Dose Route Frequency sodium phosphate-sodium bisphosphate 133 mL enema (FLEET) 133 mL RECTAL ONCE calcium carbonate 500 mg chewable tab(s) (TUMS) 500 mg ORAL TID PRN lisinopril 5 mg tab(s) (ZESTRIL) 5 mg ORAL DAILY atorvastatin 80 mg tab(s) (LIPITOR) 80 mg ORAL AT BEDTIME ezetimibe 10 mg tab(s) (ZETIA) 10 mg ORAL DAILY enoxaparin 40 mg injection (LOVENOX) 40 mg SUBCUTANEOUS DAILY NaCl 0.9% iv flush bag 20 mL INTRAVENOUS PRN ondansetron (PF) 4 mg injection (ZOFRAN) 4 mg INTRAVENOUS q 6 H PRN senna-docusate 8.6-50 mg 1 tablet (SENNA-S) 1 tablet ORAL BID polyethylene glycol 3350 17 g packet 17 g ORAL DAILY PRN magnesium oxide 400 mg tab(s) (MAG-OX) 400 mg ORAL DAILY acetaminophen 1,000 mg tab(s) (TYLENOL) 1,000 mg ORAL q 6 H gabapentin 200 mg cap(s) (NEURONTIN) 200 mg ORAL q 12 H morphine 2-4 mg injection 2-4 mg INTRAVENOUS q 2 H PRN albuterol 2.5 mg /3 mL (0.083 %) 2.5 mg (PROVENTIL) 2.5 mg INHALATION q 4 H PRN carvedilol 6.25 mg tab(s) (COREG) 6.25 mg ORAL DAILY aspirin 81 mg chewable tab(s) 81 mg ORAL DAILY metoprolol 5 mg injection (LOPRESSOR) 5 mg INTRAVENOUS q 6 H PRN oxyCODONE IR 5-10 mg tab(s) (ROXICODONE) 5-10 mg ORAL q 4 H PRN Labs: Recent Labs 02/10/242014 NA 138 K 3.7 CHLOR 103 CO2 25 BUN 18 CREAT 1.01 GLUC 114* ANION 10 CA 7.5* WBC 11.45* HB 12.3* HCT 38.8* PLT 129* Physical Exam: GENERAL: No distress, Alert NEURO: AANDOx3, CN II-XII grossly intact HEENT: Normocephalic, atraumatic LUNGS: Equal chest rise, Unlabored breathing O2 Therapy: Room Air. Incision sites c/d/I. CT with minimal SS output. CARDIAC: Regular rate as above, warm extremities ABDOMEN: Soft, non-tender, non-distended EXTREMITIES: MURRIETA, No deformities, No edema SKIN: Skin color, texture, turgor normal, No rashes or lesions Assessment AND Plan ASSESSMENT AND PLAN: Assessment Active Hospital Problems Diagnosis Date Noted S/P lobectomy of lung 02/09/2024 Assessment: 68 year old male s/p Diagnostic Wedge resection followed by lobectomy on 02/10 Hospital Course/Operations/Procedures: 02/09/2024 Procedure(s): BRONCHOSCOPY FLEXIBLE ADULT THORACOSCOPY SURGICAL W/DIAGNOSTIC WEDGE RESECTION FOLLOWED BY ANATOMIC LUNG RESECTION Plan: - Continue Regular Diet - OOB/IS use - Chest tube remove today, will get post-pull CXR 4:30PM - complaining of constipation will give enema - 30cc output. - PRN pain/nausea control - Bowel Regimen Anticipated Discharge Disposition: Home with Self Care Discussed with attending: Dr. Tadeo Follow up needs: [facility] SIGNATURE: Allen Durant DO PATIENT NAME: Sharonda Flores DATE: February 13, 2024 TIME: 1:38 PM Pager: [phone] Thoracic Service Pager: For questions or concerns Mon-Mon 6a-5p please page [phone]. After 5pm and on Weekends and Holidays, please page [phone] if in ICU or [phone] if on RNF. STAFF PHYSICIAN: Nadege Tadeo MD DATE OF SERVICE: February 12, 2024 TIME OF SERVICE: 11:39 AM Attending Note I have reviewed the documentation above obtained and documented by the Resident and I have personally performed a face to face assessment of the patient and have personally participated in the davalos components of the visit which includes medical decision making. The following comments revise or confirm relevant davalos components. Patient seen and examined on 02/13/24. Agree with above unless otherwise noted below. As above, minimal output via the chest tube. Chest x-ray stable. Patient with some nausea/constipation today, also complaining of pain around (more content not included)...[facility]07-15-2024 NoteHNO ID: [id number] Author: ASHANTI DESAI CPhT Service: Pharmacy Author Type: Pill Coater Type: Plan of Care Filed: 02/12/2024 16:39 Note Text: Pharmacy Discharge Medication Service: This patient has elected to receive their discharge prescriptions through the [facility] Bedside Prescription Delivery program. Please send all discharge medications to [facility] on 2nd floor. If patient is being discharged to a long term facility, acute rehab, or inpatient facility they will no longer be eligible for bedside delivery. If you have any questions, please call us at [phone]. Thank you. Ashanti Desai CPhT 02/12/24 4:39 [facility]07-15-2024 NoteHNO ID: [id number] Author: PEGGY BILLS RN Service: Care Management Author Type: Registered Nurse Type: Care Mgt Initial Assessment Filed: 02/12/2024 15:36 Note Text: CARE MANAGEMENT: ASSESSMENT AND DISCHARGE PLAN SERVICE DATE: February 12, 2024 SERVICE TIME: 3:34 PM PCP: Tima Tello MD Primary Contact: Extended Emergency Contact Information Primary Emergency Contact: Douglas Flores Mobile Relation: Brother Admission Status: Inpatient Insurance Provider: MEDICARE A AND B Discharge Planning requested by: Per Department Practice Potential Transition Plans Home Advance Directives Current Advance Directive: Health Care Power of Business Relations Manager In Chart: Yes Up To Date and Valid: Yes Current Living Arrangements and Support Lives with: Alone Type of Residence: Private Residence (House) Support: Family members How do you manage to accomplish the following: Independent: Ambulation;Bathe/Shower;Meals/Meal Prep;Going to the bathroom;Dress;Medication Management;Transportation to appointments/community Current Services/Equipment Current Post-Acute Service(s): None Discharge Planning Patient Goal(s): Be able to go home Burt of Choice Explained: Burt of Choice Given: No Reason Not Given: No placements necessary Are you interested in bedside delivery of your medications? Yes Discharge Planning Participant(s): Patient Patient/Family Comments: Caregiver Assessment: Caregiver is ready, willing and able to meet the patient's needs as recommended by the inter-professional team: No Caregiver needed Transport at Discharge: Transportation Arrangements: Car Needs Prior to Discharge: Needs Prior to Discharge: None Post-Acute Discharge Plan: Spoke with pt at the bedside. Pt states that he lives at home alone indept DIRECT OF REAL ESTATE. Plan for pt to return home when medically stable. Per notes pt with chest tube intact. CM to follow for transitional needs. SIGNATURE: Peggy Bills RN PATIENT NAME: Sharonda Flores DATE: February 12, 2024 TIME: 3:34 PM CONTACT #: [phone] Note HNO ID: [id number] Author: NADEGE TADEO MD Service: General Surgery Author Type: Physician Type: Progress Notes Filed: 02/12/2024 11:40 Note Text: Thoracic Surgery Progress Note SERVICE DATE: February 12, 2024 Thoracic Service Pager: For questions or concerns Mon-Mon 6a-5p please page [phone]. After 5pm and on Weekends and Holidays, please page [phone] if in ICU or [phone] if on RNF. Subjective SUBJECTIVE: Patient seen in the AM. 190 SS output from CXR. NAOE. Diet: DIET REGULAR Objective OBJECTIVE: Vitals: Temp (24hrs), Av.6 ?C (97.8 ?F), Min:36 ?C (96.8 ?F), Max:36.9 ?C (98.4 ?F) BP 116/58 Pulse 76 Temp 36.4 ?C (97.6 ?F) (Oral) Resp 19 Ht 167.6 cm (5' 6) Wt 77.9 kg (171 lb 12.8 oz) SpO2 94% BMI 27.73 kg/m? O2 Therapy: Room Air IANDO: Date 02/11/24699 - 02/12/2465802/12/24699 - 02/13/2459 Shift 7300-9345 5630-6094 0739-5431 24 Hour Total 4158-1108 0225-4132 5362-5724 24 Hour Total INTAKE PO 440 440 PO 440 440 Shift Total 440 440 OUTPUT Urine 550 300 850 Void (ml) 550 300 850 Chest Tube 70 75 75 220 Chest Tube Output (Chest Tube Right Lateral Pleural) 70 75 75 220 Shift Total 620 75 375 1070 Weight (kg) 77.9 77.9 77.9 77.9 77.9 77.9 77.9 77.9 MEDICATIONS Current Facility-Administered Medications Medication Dose Route Frequency lisinopril 5 mg tab(s) (ZESTRIL) 5 mg ORAL DAILY atorvastatin 80 mg tab(s) (LIPITOR) 80 mg ORAL AT BEDTIME ezetimibe 10 mg tab(s) (ZETIA) 10 mg ORAL DAILY enoxaparin 40 mg injection (LOVENOX) 40 mg SUBCUTANEOUS DAILY NaCl 0.9% iv flush bag 20 mL INTRAVENOUS PRN ondansetron (PF) 4 mg injection (ZOFRAN) 4 mg INTRAVENOUS q 6 H PRN senna-docusate 8.6-50 mg 1 tablet (SENNA-S) 1 tablet ORAL BID polyethylene glycol 3350 17 g packet 17 g ORAL DAILY PRN magnesium oxide 400 mg tab(s) (MAG-OX) 400 mg ORAL DAILY acetaminophen 1,000 mg tab(s) (TYLENOL) 1,000 mg ORAL q 6 H gabapentin 200 mg cap(s) (NEURONTIN) 200 mg ORAL q 12 H morphine 2-4 mg injection 2-4 mg INTRAVENOUS q 2 H PRN albuterol 2.5 mg /3 mL (0.083 %) 2.5 mg (PROVENTIL) 2.5 mg INHALATION q 4 H PRN carvedilol 6.25 mg tab(s) (COREG) 6.25 mg ORAL DAILY aspirin 81 mg chewable tab(s) 81 mg ORAL DAILY metoprolol 5 mg injection (LOPRESSOR) 5 mg INTRAVENOUS q 6 H PRN oxyCODONE IR 5-10 mg tab(s) (ROXICODONE) 5-10 mg ORAL q 4 H PRN Labs: Recent Labs 02/10/24201402/10/24 0521 NA 138 139 K 3.7 4.4 CHLOR 103 104 CO2 25 23 BUN 18 18 CREAT 1.01 0.86 GLUC 114* 136* ANION 10 12 CA 7.5* 8.6 WBC 11.45* 9.92 HB 12.3* 13.2 HCT 38.8* 40.9 PLT 129* 141* Physical Exam: GENERAL: No distress, Alert NEURO: AANDOx3, CN II-XII grossly intact HEENT: Normocephalic, atraumatic LUNGS: Equal chest rise, Unlabored breathing O2 Therapy: Room Air. Incision sites c/d/I. CT with SS output but no air leak. CARDIAC: Regular rate as above, warm extremities ABDOMEN: Soft, non-tender, non-distended EXTREMITIES: MURRIETA, No deformities, No edema SKIN: Skin color, texture, turgor normal, No rashes or lesions Assessment AND Plan ASSESSMENT AND PLAN: Assessment Active Hospital Problems Diagnosis Date Noted S/P lobectomy of lung 02/09/2024 Assessment: 68 year old male s/p Diagnostic Wedge resection followed by lobectomy on 02/10 Hospital Course/Operations/Procedures: 02/09/2024 Procedure(s): BRONCHOSCOPY FLEXIBLE ADULT THORACOSCOPY SURGICAL W/DIAGNOSTIC WEDGE RESECTION FOLLOWED BY ANATOMIC LUNG RESECTION Plan: - Continue Regular Diet - OOB/IS use - Continue CT to -20 cm suction will advance to WS, daily cxr while in place - 190cc outpt, will trend. - PRN pain/nausea control - Bowel Regimen Anticipated Discharge Disposition: Home with Self Care Discussed with attending: Dr. Tadeo Follow up needs: [facility] SIGNATURE: Allen Durant DO PATIENT NAME: Sharonda Flores DATE: February 12, 2024 TIME: 7:45 AM Pager: [phone] Thoracic Service Pager: For questions or concerns Mon-Fri 6a-5p please page [phone]. After 5pm and on Weekends and Holidays, please page [phone] if in ICU or [phone] if on RNF. Attending Note I have reviewed the documentation above obtained and documented by the Resident and I have personally performed a face to face assessment of the patient and have personally participated in the davalos components of the visit which includes medical decision making. The following comments revise or confirm relevant davalos components. Patient seen and examined on 02/12/24. Agree with above unless otherwise noted below. As above, doing well with better pain control. Pain seems to be from the chest tube. Chest tube with 190 cc output and no airleak over the past 24 hours. -Switch chest tube to waterseal, likely removal tomorrow if output decreases -Possible DC tomorrow if chest tube is removed and post pull film is satisfactory. STAFF PHYSICIAN: Nadege Tadeo MD DATE OF SERVICE: February 12, 2024 TIME OF SERVICE: 11:39 (more content not included)...[facility]07-14-2024 NoteHNO ID: [id number] Author: MARY JO KHAN MD Service: General Surgery Author Type: Physician Type: Progress Notes Filed: 02/11/2024 13:40 Note Text: Thoracic Surgery Progress Note SERVICE DATE: February 11, 2024 Thoracic Service Pager: For questions or concerns Mon-Fri 6a-5p please page [phone]. After 5pm and on Weekends and Holidays, please page [phone] if in ICU or [phone] if on RNF. Subjective SUBJECTIVE: NAEO. Patient doing well, some pain issues but otherwise doing well. No air leak on chest tube. Diet: DIET REGULAR Objective OBJECTIVE: Vitals: Temp (24hrs), Av.7 ?C (98 ?F), Min:36.5 ?C (97.7 ?F), Max:36.9 ?C (98.4 ?F) BP 123/68 Pulse 84 Temp 36.9 ?C (98.4 ?F) (Temporal) Resp 14 Ht 167.6 cm (5' 6) Wt 77.9 kg (171 lb 12.8 oz) SpO2 91% BMI 27.73 kg/m? O2 Therapy: Nasal Cannula IANDO: Date 02/10/24699 - 02/11/2465802/11/24699 - 02/12/2459 Shift 7212-5704 8906-3628 8254-8982 24 Hour Total 1252-4213 7227-7832 3514-5273 24 Hour Total INTAKE PO 450 300 200 950 240 240 PO 450 300 200 950 240 240 IV 1000 1000 Volume (mL) (NaCl 0.9% 1,000 mL iv bolus) 1000 1000 Shift Total 450 9473 157 7975 240 240 OUTPUT Urine 450 878 128 2512 Void (ml) 450 773 842 0063 Chest Tube 50 60 120 230 Chest Tube Output (Chest Tube Right Lateral Pleural) 50 60 120 230 # of BMs Number of BMs 0 x 0 x Shift Total 500 094 716 0636 Weight (kg) 82.7 82.7 77.9 77.9 77.9 77.9 77.9 77.9 MEDICATIONS Current Facility-Administered Medications Medication Dose Route Frequency lisinopril 5 mg tab(s) (ZESTRIL) 5 mg ORAL DAILY atorvastatin 80 mg tab(s) (LIPITOR) 80 mg ORAL AT BEDTIME ezetimibe 10 mg tab(s) (ZETIA) 10 mg ORAL DAILY enoxaparin 40 mg injection (LOVENOX) 40 mg SUBCUTANEOUS DAILY NaCl 0.9% iv flush bag 20 mL INTRAVENOUS PRN ondansetron (PF) 4 mg injection (ZOFRAN) 4 mg INTRAVENOUS q 6 H PRN senna-docusate 8.6-50 mg 1 tablet (SENNA-S) 1 tablet ORAL BID polyethylene glycol 3350 17 g packet 17 g ORAL DAILY PRN magnesium oxide 400 mg tab(s) (MAG-OX) 400 mg ORAL DAILY acetaminophen 1,000 mg tab(s) (TYLENOL) 1,000 mg ORAL q 6 H gabapentin 200 mg cap(s) (NEURONTIN) 200 mg ORAL q 12 H morphine 2-4 mg injection 2-4 mg INTRAVENOUS q 2 H PRN albuterol 2.5 mg /3 mL (0.083 %) 2.5 mg (PROVENTIL) 2.5 mg INHALATION q 4 H PRN carvedilol 6.25 mg tab(s) (COREG) 6.25 mg ORAL DAILY aspirin 81 mg chewable tab(s) 81 mg ORAL DAILY metoprolol 5 mg injection (LOPRESSOR) 5 mg INTRAVENOUS q 6 H PRN oxyCODONE IR 5-10 mg tab(s) (ROXICODONE) 5-10 mg ORAL q 4 H PRN Labs: Recent Labs 02/10/24201402/10/24 0521 NA 138 139 K 3.7 4.4 CHLOR 103 104 CO2 25 23 BUN 18 18 CREAT 1.01 0.86 GLUC 114* 136* ANION 10 12 CA 7.5* 8.6 WBC 11.45* 9.92 HB 12.3* 13.2 HCT 38.8* 40.9 PLT 129* 141* Physical Exam: GENERAL: No distress, Alert NEURO: AANDOx3, CN II-XII grossly intact HEENT: Normocephalic, atraumatic LUNGS: Equal chest rise, Unlabored breathing O2 Therapy: Nasal Cannula. Incision sites c/d/I. CT with SS output but no air leak. CARDIAC: Regular rate as above, warm extremities ABDOMEN: Soft, non-tender, non-distended EXTREMITIES: MURRIETA, No deformities, No edema SKIN: Skin color, texture, turgor normal, No rashes or lesions Assessment AND Plan ASSESSMENT AND PLAN: Assessment Active Hospital Problems Diagnosis Date Noted S/P lobectomy of lung 02/09/2024 Assessment: 68 year old male s/p Diagnostic Wedge resection followed by lobectomy on 02/10 Hospital Course/Operations/Procedures: 02/09/2024 Procedure(s): BRONCHOSCOPY FLEXIBLE ADULT THORACOSCOPY SURGICAL W/DIAGNOSTIC WEDGE RESECTION FOLLOWED BY ANATOMIC LUNG RESECTION Plan: - Continue Regular Diet - OOB/IS use - Continue CT to -20 cm suction, daily cxr while in place - PRN pain/nausea control - Floor transfer today - Bowel Regimen Anticipated Discharge Disposition: Home with Self Care Discussed with attending: Dr. Khan superintendent landfill operations for Dr. Tadeo Follow up needs: [facility] SIGNATURE: Hai Aguirre MD PATIENT NAME: Sharonda Flores DATE: February 11, 2024 TIME: 12:48 PM Pager: [phone] Thoracic Service Pager: For questions or concerns Mon-Fri 6a-5p please page [phone]. After 5pm and on Weekends and Holidays, please page [phone] if in ICU or [phone] if on RNF. See my note as well.[facility]07-14-2024 NoteHNO ID: [id number] Author: MARY JO KHAN MD Service: Thoracic Surgery Author Type: Physician Type: Progress Notes Filed: 02/11/2024 10:50 Note Text: Patient seen this AM on rounds with resident and bedside nurse. No air leak at rest. Data, cxr, and careplan reviewed. CXR looks good. A-improving P-OK 4200 today, tube in and on suction today as well.[facility]07-13-2024 NoteHNO ID: [id number] Author: SARA HICKS RPh Service: Pharmacy Author Type: Pharmacist Type: Plan of Care Filed: 02/12/2024 13:51 Note Text: PHARMACY MEDICATION REVIEW Patient Name: Sharonda Flores : 1955 Addendum: medication history reviewed by pharmacist 02/12/2024 Sara Hicks RPh The following medications were updated within the [employer] medication list: Medications ADDED to [employer] medication list Medications CHANGED on [employer] medication list Medications REMOVED from [employer] medication list Additional comments: Verified medication information with e-scripts/dispense report and chart review. Confirmed medications with patient. Patient stated medication list is current. Patient stated not taking any additional medications or supplements. Required follow up actions for nursing: None The below information represents the best possible medication history: Yes Medication history completed by: Certified Diabetes Educator: Linnea Shah (Infantry Officer) Source of history: Patient: Reliability of source: Appears reliable, clearly identified: Medication name, Medication dose, Medication route, and Medication frequency Medication nonadherence identified: No barriers noted Reconciliation completed: Yes Completed Patient interested in Bedside Delivery Services or using [facility] OP Pharmacy at discharge? Unable to assess Preferred outpatient pharmacy: [facility]- [facility]/pharmacy #[id number] [place] [address] [address] [facility]. [phone] [place] [id number] Allergies: Penicillins Hives Prior to Admission Medications Prescriptions Last Dose Informant Patient Reported? Taking? Aspirin 81 mg Tab 02/08/2024 Yes Yes Sig: Take 81 mg by mouth once daily. atorvastatin (LIPITOR) 80 mg tablet 02/08/2024 No Yes Sig: Take 1 tablet by mouth daily at bedtime. For cholesterol. carvedilol (COREG) 6.25 mg tablet 02/08/2024 Yes Yes Sig: Take 6.25 mg by mouth two times a day with meals. ezetimibe (ZETIA) 10 mg tablet 02/08/2024 No Yes Sig: Take 1 tablet by mouth once daily. lisinopril (ZESTRIL) 5 mg tablet 02/08/2024 Yes Yes Sig: Take 5 mg by mouth once daily. nitroglycerin sublingual (NITROQUICK) 0.4 mg SL tablet No Yes Sig: Dissolve 1 tablet under the tongue every 5 minutes as needed. Facility-Administered Medications: None Linnea Shah (Infantry Officer)[id number] 02/10/2024[facility]07-13-2024 NoteHNO ID: [id number] Author: MARY JO KHAN MD Service: Thoracic Surgery Author Type: Physician Type: Progress Notes Filed: 02/10/2024 10:06 Note Text: Patient seen this AM on rounds for RORY. Explained what I could of surgery in response to questions. Data, cxr, and careplan reviewed with resident. A-stable P-as ordered.[facility]07-13-2024 NoteHNO ID: [id number] Author: MARY JO KHAN MD Service: General Surgery Author Type: Physician Type: Progress Notes Filed: 02/10/2024 10:06 Note Text: Thoracic Surgery Progress Note SERVICE DATE: February 10, 2024 Thoracic Service Pager: For questions or concerns Mon-Fri 6a-5p please page [phone]. After 5pm and on Weekends and Holidays, please page [phone] if in ICU or [phone] if on RNF. Subjective SUBJECTIVE: NAEO. Patient having some issues with pain but otherwise doing well. No air leak in the chest tube. On 2L NC. Is ambulating and using his IS. Diet: DIET REGULAR Objective OBJECTIVE: Vitals: Temp (24hrs), Av.4 ?C (97.5 ?F), Min:36 ?C (96.8 ?F), Max:37 ?C (98.6 ?F) BP 115/55 Pulse 69 Temp 36 ?C (96.8 ?F) Resp 15 Ht 167.6 cm (5' 6) Wt 82.7 kg (182 lb 5.1 oz) SpO2 90% BMI 29.43 kg/m? O2 Therapy: Nasal Cannula IANDO: Date 02/09/24699 - 02/10/2465802/10/24699 - 02/11/24 0659 Shift 4977-3649 3039-2333 5691-4695 24 Hour Total 8656-8991 9603-8342 8475-2653 24 Hour Total INTAKE IV 2200 2200 Volume (mL) (ceFAZolin iv piggyback 2 g in D5W (iso-osmotic) 100 mL (ANCEF)) 200 200 Volume (mL) (lactated ringers iv infusion) 1000 1000 Volume (mL) (NaCl 0.9% iv infusion) 1000 1000 Shift Total 2200 2200 OUTPUT Urine 350 200 550 Void (ml) 200 200 OR Urine Output 350 350 Chest Tube 100 80 180 Chest Tube Output (Chest Tube Right Lateral Pleural) 100 80 180 Blood 200 200 Estimated Blood loss 200 200 Shift Total 550 300 80 930 Weight (kg) 81 82.7 82.7 82.7 82.7 82.7 82.7 MEDICATIONS Current Facility-Administered Medications Medication Dose Route Frequency lisinopril 5 mg tab(s) (ZESTRIL) 5 mg ORAL DAILY atorvastatin 80 mg tab(s) (LIPITOR) 80 mg ORAL AT BEDTIME ezetimibe 10 mg tab(s) (ZETIA) 10 mg ORAL DAILY enoxaparin 40 mg injection (LOVENOX) 40 mg SUBCUTANEOUS DAILY NaCl 0.9% iv flush bag 20 mL INTRAVENOUS PRN ondansetron (PF) 4 mg injection (ZOFRAN) 4 mg INTRAVENOUS q 6 H PRN senna-docusate 8.6-50 mg 1 tablet (SENNA-S) 1 tablet ORAL BID polyethylene glycol 3350 17 g packet 17 g ORAL DAILY PRN magnesium oxide 400 mg tab(s) (MAG-OX) 400 mg ORAL DAILY acetaminophen 1,000 mg tab(s) (TYLENOL) 1,000 mg ORAL q 6 H gabapentin 200 mg cap(s) (NEURONTIN) 200 mg ORAL q 12 H morphine 2-4 mg injection 2-4 mg INTRAVENOUS q 2 H PRN albuterol 2.5 mg /3 mL (0.083 %) 2.5 mg (PROVENTIL) 2.5 mg INHALATION q 4 H PRN carvedilol 6.25 mg tab(s) (COREG) 6.25 mg ORAL DAILY aspirin 81 mg chewable tab(s) 81 mg ORAL DAILY metoprolol 5 mg injection (LOPRESSOR) 5 mg INTRAVENOUS q 6 H PRN oxyCODONE IR 5-10 mg tab(s) (ROXICODONE) 5-10 mg ORAL q 4 H PRN Labs: Recent Labs 02/10/24 0521 02/09/24 1528 NA 139 139 K 4.4 4.2 CHLOR 104 106 CO2 23 21* BUN 18 20 CREAT 0.86 0.87 GLUC 136* 163* ANION 12 12 CA 8.6 8.5 WBC 9.92 12.55* HB 13.2 13.6 HCT 40.9 42.2 PLT 141* 144* Physical Exam: GENERAL: No distress, Alert NEURO: AANDOx3, CN II-XII grossly intact HEENT: Normocephalic, atraumatic LUNGS: Equal chest rise, Unlabored breathing O2 Therapy: Nasal Cannula. Incision sites c/d/I. CT with SS output but no air leak. CARDIAC: Regular rate as above, warm extremities ABDOMEN: Soft, non-tender, non-distended EXTREMITIES: MURRIETA, No deformities, No edema SKIN: Skin color, texture, turgor normal, No rashes or lesions Assessment AND Plan ASSESSMENT AND PLAN: Assessment Active Hospital Problems Diagnosis Date Noted S/P lobectomy of lung 02/09/2024 Assessment: 68 year old male s/p Diagnostic Wedge resection followed by lobectomy on 02/10 Hospital Course/Operations/Procedures: 02/09/2024 Procedure(s): BRONCHOSCOPY FLEXIBLE ADULT THORACOSCOPY SURGICAL W/DIAGNOSTIC WEDGE RESECTION FOLLOWED BY ANATOMIC LUNG RESECTION Plan: - Advance to regular diet - Discontinue Arterial line and sher - OOB/IS use - Continue CT to -20 cm suction, daily cxr while in place - PRN pain/nausea control - Keep in the ICU today Anticipated Discharge Disposition: Home with Self Care Discussed with attending: Dr. Khan superintendent landfill operations for Dr. Tadeo Follow up needs: [facility] SIGNATURE: Hai Aguirre MD PATIENT NAME: Sharonda Flores DATE: February 10, 2024 TIME: 10:00 AM Pager: [phone] Thoracic Service Pager: For questions or concerns Mon-Fri 6a-5p please page [phone]. After 5pm and on Weekends and Holidays, please page [phone] if in ICU or [phone] if on RNF. See my note as [facility]07-12-2024 NoteHNO ID: [id number] Author: TIMA HUDSON APRN.SALES ATTENDANT Service: Nursing Author Type: Nurse Tea And Spice Supervisor Type: Anesthesia Procedure Notes Filed: 02/09/2024 10:03 Note Text: ANESTHESIOLOGY PROCEDURE NOTE Airway General Information Procedure Start Time/Medication Administration: 02/09/2024 9:25 AM Procedure End Time: 02/09/2024 9:25 AM Patient location during procedure: OR Timeout Performed Pre-procedure: timeout performed Consent Obtained: Yes Patient identity confirmed: arm band Staffing SALES ATTENDANT: Tima Hudson APRN.SALES ATTENDANT Performed by: SALES ATTENDANT Indications and Patient Condition Indications for airway management: anesthesia Preoxygenated: yes anesthesia circuit Patient position: sniffing Method: asleep Cricoid Pressure: No Manual In-Line Stabilization: No Difficult Mask: No Final Airway Details Final airway type: endotracheal airway Final Endotracheal Airway: ETT - double lumen left Cuffed: yes Successful intubation technique: video laryngoscopy Devices used: Astudillo and intubating stylet Endotracheal tube insertion site: oral Blade: Rishabh Blade size: #4 ETT DL size (fr): 39 Measured from: lips Measurement (cm): 30 Placement verified by: chest auscultation and capnometry Cormack-Lehane Classification: grade I - full view of glottis Number of attempts at approach: 1 SIGNATURE: Tima Hudson APRN.SALES ATTENDANT PATIENT NAME: Sharonda Flores DATE: February 09, 2024 TIME: 10:02 AM CSN: [id number]07[facility]24 NoteHNO ID: [id number] Author: TIMA HUDSON APRN.SALES ATTENDANT Service: Nursing Author Type: Nurse Tea And Spice Supervisor Type: Anesthesia Procedure Notes Filed: 02/09/2024 09:56 Note Text: ANESTHESIOLOGY PROCEDURE NOTE A-Line General Information Procedure Start Time/Medication Administration: 02/09/2024 9:10 AM Procedure End Time: 02/09/2024 9:14 AM Patient location during procedure: OR Timeout Performed Pre-procedure: timeout performed Indications: continuous blood pressure monitoring Staffing Anesthesiologist: Ingris Posey MD Performed by: anesthesiologist Preparation Sterility Preparation: hand hygiene performed prior to procedure, sterile gloves, drapes, and procedure tray, surgical cap used, mask used, sterile drape used during line insertion, skin prep agent completely dried prior to procedure Site Prep: Chloraprep Procedure Details Catheter Type: arterial line Catheter Size: 20 G Catheter Length: 1.75 in Micropuncture Kit Used: No Guidewire Used: No Laterality: left Site: radial artery Ultrasound Guided: No Line Secured: Tegaderm Events Events: patient tolerated procedure well with no complications SIGNATURE: Tima Hudson APRN.CRNA PATIENT NAME: Sharonda Flores DATE: February 09, 2024 TIME: 9:55 AM CSN: [id number]07-12-2024 NoteHNO ID: [id number] Author: TIMA HUDSON APRN.CRNA Service: Nursing Author Type: Nurse Tea And Spice Supervisor Type: Anesthesia Procedure Notes Filed: 02/09/2024 09:51 Note Text: ANESTHESIOLOGY PROCEDURE NOTE Airway General Information Procedure Start Time/Medication Administration: 02/09/2024 9:08 AM Procedure End Time: 02/09/2024 9:08 AM Patient location during procedure: OR Timeout Performed Pre-procedure: timeout performed Consent Obtained: Yes Patient identity confirmed: arm band Staffing SALES ATTENDANT: Tima Hudson APRN.SALES ATTENDANT Performed by: JESSIE Indications and Patient Condition Indications for airway management: anesthesia Preoxygenated: yes anesthesia circuit Patient position: sniffing Method: modified rapid sequence Cricoid Pressure: No Manual In-Line Stabilization: No Difficult Mask: No Final Airway Details Final airway type: endotracheal airway Final Endotracheal Airway: ETT Cuffed: yes Successful intubation technique: video laryngoscopy Devices used: Astudillo and intubating stylet Endotracheal tube insertion site: oral Blade: Rishabh Blade size: #4 ETT size (mm): 9.0 Measured from: lips Measurement (cm): 22 Placement verified by: capnometry Cormack-Lehane Classification: grade I - full view of glottis Number of attempts at approach: 1 SIGNATURE: Tima Hudson APRN.CRNA PATIENT NAME: Sharonda Flores DATE: February 09, 2024 TIME: 9:49 AM CSN: [id number] [facility] Center07-02-2024 Telephone encounter Note* Telephone Encounter - Joanna Nunez RN - 01/30/2024 12:46 PM EDT [facility] 01/16/24. Routed medication to Herlinda White APRN to sign. [id number] Miscellaneous Notes* Telephone Encounter - Joanna Nunez RN - 01/30/2024 12:46 PM EDT [facility] 01/16/24. Routed medication to Herlinda White APRN to sign. * Telephone Encounter - Selene Marinelli - 01/30/2024 12:41 PM EDT carvedilol (Coreg) 6.25 MG tablet [facility] documented in this encounterSAultman Orrville [id number] Telephone encounter Note* Telephone Encounter - Selene Marinelli - 01/30/2024 12:41 PM EDT carvedilol (Coreg) 6.25 MG tablet [facility] [id number] Instructions* Patient Instructions* Fred Mckinney APRN.DISASTER RECOVERY MANAGER - 01/29/2024 8:45 AM EDT [facility] Pre-Admission Patient Instruction You are scheduled for surgery (inpatient) located on the 2nd Floor on: 02/09/24 (your surgery dateis subject to change should there be emergencies prior to your scheduled OR time). Come in the Front Doors / Main Entrance of the hospital. No need to stop at front entrance registration. Please check in to the [facility] (2nd Floor) at: 6 AM Nothing by mouth after midnight: Do not eat or drink anything, including water and coffee, after 12AM on the morning of your surgery. This is important because if you do, your surgery may have to becancelled. Eat a light supper the evening before surgery or follow specific doctor's instructions. Oral hygiene and a shower or bath is required the evening before or the morning of surgery. Use theprescribed Hibiclens body wash supplied to you along with the instruction. Do not chew gum/mints, or use oral spray the morning of surgery. Notify your doctor if you develop a cold, sore throat, fever or other changes in your physical condition. No alcohol 24 hours before or after surgery and refrain from smoking the morning of surgery and immediately following surgery. Leave valuables such as rings, watches and money at home. Remove all make-up and nail israeli beforeadmission. We need to check your circulation. Remove jewelry from all piercings, tongue included, as no metal can go into surgery. Wear loose, comfortable clothing that will accommodate bandages. You will be asked to remove glasses or contacts, and/or your denture prior to surgery. Please bringa case. Your belongings will be kept in an assigned locker until we know your new room after procedure. Please bring your CPAP or BIPAP or any necessary medical equipments, we will keep them in an assigned locker until you are assigned a post-op room. Your length of stay will be determined by your surgeon/surgery team, the anesthesiologist as well as your post of progress. On the morning of surgery, your point of contact will be instructed on communication regarding surgery updates. Please bring a list of any medication you are taking including dose and the condition for which youare being treated. Medications to stop in preparing surgery: Stop lisinopril 24 hours before surgery, last dose 02/07/24 Infection control and prevention: For body- Hibiclens body wash the night before and morning of surgery. If you are positive of MRSA,you would need shower daily with the Hibiclens body solution for 5 days total (you can get additional amount from any local drug store). Nutritional support/Ensure Drinks Instruction (Please continue eating your usual heart healthy diet): 2 protein shakes daily for 5 days before surgery 2 presurgical clear drinks the night before surgery 1 presurgical clear drink 2 hrs before surgery Medications to take with small amount of fluid in the morning of surgery: Aspirin 81 mg Beta Aric (Carvedilol) Tylenol 1000 mg (this prescription has been sent for you to [facility]) If you have respiratory inhaler, please give yourself a treatment prior to come in If you are diabetic, please check you blood sugar prior to come in PLEASE COMPLETE THE SHOWER, FINISH YOUR DRINK AND PRE-OP MEDICATIONS NO LATER THAN 5:30 AM, THANKS. Please have your pre op labs drawn today. Please call office at [phone] or [employer] message me if you have additional questions, Thanks. Fred Mckinney APRN.CNP 01/29/24 documented in this encounterAdena [facility]07-01-2024 NoteHNO ID: [id number] Author: FRED MCKINNEY APRN.CNP Service: ? Author Type: Nurse Practitioner Type: Progress Notes Filed: 01/29/2024 09:11 Note Text: UPDATED HISTORY AND PHYSICAL EXAMINATION SERVICE DATE: 01/29/2024 SERVICE TIME: 8:56 AM The History and Physical (completed in the past 30 days) has been reviewed and the patient has been examined. The contents accurately reflect the patient's condition with the following additions or revisions since the HANDP was completed. HPI: Per Dr. Tadeo on 01/08/24, Mr. Flores is a 68 year old male with past medical history of coronary artery disease status post multiple stents in [address] Tineo, AAA, hypertension, history of smoking cigars, thrombocytopenia, psoriasis presenting to the office for evaluation of a right upper lobe lung nodule. This was identified on screening CT scan of the chest in July, and follow-up CT in October showed that the solid nodule in the right upper lobe lobe of the lung increased in size to 1 cm. PET/CT demonstrated avidity of the nodule with a max SUV of 4.1. Patient obtain PFTs, which are fairly normal, and he underwent bronchoscopy/EBUS and navigational bronchoscopy on 12/15/2023 showing negative mediastinum and nodule pathology showing normal lung tissue with some blood. Patient was referred for surgical lung resection for both diagnosis and treatment. He is a fairly active gentleman with no family history of lung cancer. Patient is scheduled for flexible bronchoscopy, right VATS, right upper lobe wedge resection to send for frozen, cryo nerve block, mediastinal lymph node dissection. If frozen returns as malignancy complete right upper lobe lobectomy to be performed. He presents to the office today for PAT. Interval events: On encounter, pt accompanied alone and reports since seeing Dr. Tadeo on 01/07, there have been no hospitalizations/ED visits . Patient reports the following: Fever/chills: denies Dizziness/lightheadedness/syncope: denies Chest pain/palpitations: denies SOB/cough: denies Sore throat/nasal congestion/rhinitis: denies N/V/D/C/abdominal pain: denies : denies Leg swelling: denies Paresthesias: denies Hand dominance: right Implantable devices: denies Accept blood products: yes Issues with intubation or anesthesia in the past: denies Examination indicates no changes. LUNGS: Lungs clear to auscultation, Good diaphragmatic excursion CARDIAC: Normal S1 and S2; no rubs, murmurs, or gallops EDEMA: none Anesthesia Findings: Planned anesthesia: general Intubation history: no/yes Difficult airway: no/yes Drug interaction under anesthesia Reviewed the following diagnostic tests: CT chest 12/13/23: IMPRESSION: Stable right lung nodules and groundglass opacities. No definite new nodules identified. Bronchoscopy/EBUS and navigational bronchoscopy on 12/15/2023: FINAL DIAGNOSIS A - Lung, Right Upper Lobe, Transbronchial, Aspirate/Fine Needle Aspirate Negative for malignant cells. Benign bronchial cells. B - Lymph Node, Transbronchial, Aspirate/Fine Needle Aspirate - 11RS Negative for malignant cells. Benign lymphoid sample. C - Lymph Node, Transbronchial, Aspirate/Fine Needle Aspirate - 11RI Negative for malignant cells. Benign lymphoid sample. Component FINAL DIAGNOSIS Right lung, upper lobe, transbronchial biopsy: - Predominantly blood with rare clusters of benign respiratory-type epithelium. PFTs on 12/06/2023 demonstrated an FEV1 of 89% predicted and DLCO of 85% predicted. PET/CT on 12/05/2023 showed increased uptake in the right upper lobe lung nodule with max SUV of 4.1. Provisional Diagnosis/Treatment Plan: * No surgery found * RUL nodule Procedure for diagnosis and treatment: Flexible bronchoscopy, right VATS, right upper lobe wedge resection to send for frozen, cryo nerve block, mediastinal lymph node dissection. If frozen returns as malignancy complete right upper lobe lobectomy to be performed. Scheduled on 02/09/[address] Tadeo The risks, benefits and anticipated outcomes of the procedure, the risks and benefits of the alternatives to the procedure, and the roles and tasks of the personnel to be involved, were discussed with the patient by Dr. Tadeo. Consent to be obtained by Dr. Tadeo. - HAND P updated, which is consistent with recent evaluation performed by Dr. Tadeo - Reviewed all pre-op labs, images and reports; Still needs INR, CMP, CBC, TANDS drawn which I encouraged patient to have done today - Pre-op teaching and consultation provided - CHG 4% solution provided to patient along with instructions - Pre-op nutritional drinks were provided - ERAS protocol educated: patient to take Tylenol on DOS - Patient also to take BB and ASA on DOS - Hold lisinopril 24 hours prior to surgery, last dose 02/07/24 - Patient has no questions at this time, contact offered for further concerns/questions CAD (more content not included)...[facility]07-01-2024 History of Present illness Narrative* Fred Mckinney APRN.DISASTER RECOVERY MANAGER - 01/29/2024 8:10 AM EDT UPDATED HISTORY AND PHYSICAL EXAMINATION SERVICE DATE: 01/29/2024 SERVICE TIME: 8:56 AM The History and Physical (completed in the past 30 days) has been reviewed and the patient has beenexamined. The contents accurately reflect the patient's condition with the following additions or revisions since the H&P was completed. HPI: Per Dr. Tadeo on 01/08/24, Mr. Flores is a 68 year old male with past medical history of coronary artery disease status post multiple stents in [address] Tineo, AAA, hypertension, history of smoking cigars, thrombocytopenia, psoriasis presenting to the office for evaluationof a right upper lobe lung nodule. This was identified on screening CT scan of the chest in July, and follow-up CT in October showed that the solid nodule in the right upper lobe lobe of the lung increased in size to 1 cm. PET/CT demonstrated avidity of the nodule with a max SUV of 4.1. Patient obtain PFTs, which are fairly normal, and he underwent bronchoscopy/EBUS and navigational bronchoscopy on 12/15/2023 showing negative mediastinum and nodule pathology showing normal lung tissue with someblood. Patient was referred for surgical lung resection for both diagnosis and treatment. He is a fairly active gentleman with no family history of lung cancer. Patient is scheduled for flexible bronchoscopy, right VATS, right upper lobe wedge resection to send for frozen, cryo nerve block, mediastinal lymph node dissection. If frozen returns as malignancy complete right upper lobe lobectomy to be performed. He presents to the office today for PAT. Interval events: On encounter, pt accompanied alone and reports since seeing Dr. Tadeo on 01/07, there have been no hospitalizations/ED visits . Patient reports the following: Fever/chills: denies Dizziness/lightheadedness/syncope: denies Chest pain/palpitations: denies SOB/cough: denies Sore throat/nasal congestion/rhinitis: denies N/V/D/C/abdominal pain: denies : denies Leg swelling: denies Paresthesias: denies Hand dominance: right Implantable devices: denies Accept blood products: yes Issues with intubation or anesthesia in the past: denies Examination indicates no changes. LUNGS: Lungs clear to auscultation, Good diaphragmatic excursion CARDIAC: Normal S1 and S2; no rubs, murmurs, or gallops EDEMA: none Anesthesia Findings: Planned anesthesia: general Intubation history: no/yes Difficult airway: no/yes Drug interaction under anesthesia Reviewed the following diagnostic tests: CT chest 12/13/23: IMPRESSION: Stable right lung nodules and groundglass opacities. No definite new nodules identified. Bronchoscopy/EBUS and navigational bronchoscopy on 12/15/2023: FINAL DIAGNOSIS A - Lung, Right Upper Lobe, Transbronchial, Aspirate/Fine Needle Aspirate Negative for malignant cells. Benign bronchial cells. B - Lymph Node, Transbronchial, Aspirate/Fine Needle Aspirate - 11RS Negative for malignant cells. Benign lymphoid sample. C - Lymph Node, Transbronchial, Aspirate/Fine Needle Aspirate - 11RI Negative for malignant cells. Benign lymphoid sample. Component FINAL DIAGNOSIS Right lung, upper lobe, transbronchial biopsy: - Predominantly blood with rare clusters of benign respiratory-type epithelium. PFTs on 12/06/2023 demonstrated an FEV1 of 89% predicted and DLCO of 85% predicted. PET/CT on 12/05/2023 showed increased uptake in the right upper lobe lung nodule with max SUV of 4.1. Provisional Diagnosis/Treatment Plan: * No surgery found * RUL nodule Procedure for diagnosis and treatment: Flexible bronchoscopy, right VATS, right upper lobe wedge resection to send for frozen, cryo nerve block, mediastinal lymph node dissection. If frozen returns as malignancy complete right upper lobe lobectomy to be performed. Scheduled on 02/09/[address] Tadeo The risks, benefits and anticipated outcomes of the procedure, the risks and benefits of the alternatives to the procedure, and the roles and tasks of the personnel to be involved, were discussed with the patient by Dr. Tadeo. Consent to be obtained by Dr. Tadeo. - H& P updated, which is consistent with recent evaluation performed by Dr. Tadeo - Reviewed all pre-op labs, images and reports; Still needs INR, CMP, CBC, T&S drawn which I encouraged patient to have done today - Pre-op teaching and consultation provided - CHG 4% solution provided to patient along with instructions - Pre-op nutritional drinks were provided - ERAS protocol educated: patient to take Tylenol on DOS - Patient also to take BB and ASA on DOS - Hold lisinopril 24 hours prior to surgery, last dose 02/07/24 - Patient has no questions at this time, contact offered for further concerns/questions CAD - S/P stents in 2011 - Follows with Dr. Tineo - Cardiac clearance received - On medical management with ASA, statin & BB HTN - Controlled - Follows with cardiology as above - Takes lisinopril and carvedilol This H&P can be found in the Electronic Medical Record dated 01/08/24. SIGNATURE: Fred Mckinney APRN.CNP PATIENT NAME: Sharonda Flores DATE: January 29, 2024 TIME: 8:52 AM PAGER: [phone] documented in this [facility] Telephone encounter Note * Telephone Encounter - Stu Mcdermott MD - 01/27/2024 12:22 PM EDT Lisinopril 5mg daily [facility]illed. [id number] Miscellaneous Notes* Telephone Encounter - Stu Mcdermott MD - 01/27/2024 12:22 PM EDT Lisinopril 5mg daily refilled. * Telephone Encounter - Karen George - 01/27/2024 11:04 AM EDT Name of caller requesting page:Sharonda Phone Number of caller: [phone] Facility requesting page: N/A Reason for Page: Medication refill Provider paged: Dr. Mcdermott Practice Name of paged provider: [facility] Page Placed to #: N/A Time Page was sent or provider contacted: 11:07P Page Content: Patient called in stating he is down to 1 tablet of Lisinopril 5MG and needs a refill. If needed, patient can be reached at [phone] documented in this encounterSAultman Orrville [id number] Telephone encounter Note* Telephone Encounter - Karen George - 01/27/2024 11:04 AM EDT Name of caller requesting page:Sharonda Phone Number of caller: [phone] Facility requesting page: N/A Reason for Page: Medication refill Provider paged: Dr. Mcdermott Practice Name of paged provider: MG Page Placed to #: N/A Time Page was sent or provider contacted: 11:07P Page Content: Patient called in stating he is down to 1 tablet of Lisinopril 5MG and needs a refill. If needed, patient can be reached at [phone] [facility] [id number] Telephone encounter Note* Telephone Encounter - Conrado Yao MA - 01/19/2024 9:12 AM EDT Pt return my call and chose 02/09/24 for surgery. Office visit for presurgical instructions 01/29/24 9am. Pt will go for labs after appt. No fasting required. Bronchoscopy, right VATS RUL wedge resection frozen section, mediastinal lymph node dissection, cyro nerve block 02/09/24 arrival time 6am procedure time 8am @ [facility]. [facility]06-21-[facility] Miscellaneous Notes* Telephone Encounter - Conrado Yao MA - 01/19/2024 9:12 AM EDT Pt return my call and chose 02/09/24 for surgery. Office visit for presurgical instructions 01/29/24 9am. Pt will go for labs after appt. No fasting required. Bronchoscopy, right VATS RUL wedge resection frozen section, mediastinal lymph node dissection, cyro nerve block 02/09/24 arrival time 6am procedure time 8am @ [facility]. * Telephone Encounter - Conrado Yao MA - 01/18/2024 2:16 PM EDT Left message requesting call back to discuss scheduling lung surgery with Dr. Tadeo. Currently schedule for 02/13/24, however there are sooner dates available. documented in this encounterA[facility]06-20-2024 Telephone encounter Note * Telephone Encounter - Conrado Yao MA - 01/18/2024 2:16 PM EDT Left message requesting call back to discuss scheduling lung surgery with Dr. Tadeo. Currently schedule for 02/13/24, however there are sooner dates available. [facility]06-20-[facility] Telephone encounter Note* Telephone Encounter - Conrado Yao MA - 01/18/2024 2:13 PM EDT Received cardiac clearance from Dr. Tineo. Form scanned into. [facility]06-20-2024 Miscellaneous Notes* Telephone Encounter - Conrado Yao MA - 01/18/2024 2:13 PM EDT Received cardiac clearance from Dr. Tineo. Form scanned into. * Telephone Encounter - Conrado Yao MA - 01/09/2024 3:30 PM EDT Business Division Chair Dr. Tineo [phone] fax [phone] cardiac clearance request faxed on 01/09/24. Bronchoscopy, right VATS RUL wedge resection frozen section, mediastinal lymph node dissection, cyro nerve block 02/13/24 documented in this encounterAdena [facility]06-18-2024 History of Present illness Narrative* Becky Tineo MD - 01/16/2024 12:45 PM EDT Images from the original note were not included. [facility] [address] [address] Dept: [phone] Dept Visit type: Established : 1955 Reason for Visit: Annual Exam and Cardiac Clearance Assessment and Plan 1. Mixed hyperlipidemia 2. Coronary artery disease involving chilkoot coronary artery of chilkoot heart without angina pectoris - ECG 12 lead - CLINIC PERFORMED - atorvastatin (Lipitor) 80 MG tablet; Take 1 tablet (80 mg) by mouth every evening., Starting Marjorie 02/08/2024, Normal 3. Essential hypertension This is a very pleasant 68 year-old male with a history of prior PCI, most recently in 2011. His ejection fraction is normal. He is doing quite well with his current medications. he needs to remain on aspirin 81mg daily, lifelong. I have not changed his statin or antihypertensive regimen today. Otherwise he should remain as active as possible and I will see him back in two years, sooner if needed. It was a pleasure seeing your patient in the office today. Please do not hesitate to call me with any questions. Follow up in about 2 years (around 01/15/2026). Subjective HPI Sharonda Flores is a 68 y.o. male with a history of several PCIs, most recently in May 2012. He currently has stents in his LAD, circumflex, distal RCA and a known occlusion of the second diagonal branch. His ejection fraction remains normal. He has done well since that time and continueshis current medications without problem. He remains active without symptoms. Sharonda Flores is here for routine follow up. he Is doing well, having no cardiac symptoms. Review of Systems Constitutional: Negative for activity change, chills, diaphoresis, fatigue and fever. HENT: Negative for nosebleeds and trouble swallowing. Eyes: Negative for discharge and visual disturbance. Respiratory: Negative for apnea, cough, chest tightness, shortness of breath and wheezing. Cardiovascular: Negative for chest pain, palpitations and leg swelling. Gastrointestinal: Negative for abdominal distention, abdominal pain, blood in stool, diarrhea, nausea and vomiting. Endocrine: Negative for cold intolerance and heat intolerance. Genitourinary: Negative for hematuria. Musculoskeletal: Negative for gait problem and myalgias. Skin: Negative for color change and rash. Neurological: Negative for dizziness, seizures, syncope, facial asymmetry, speech difficulty, weakness, light-headedness, numbness and headaches. Hematological: Does not bruise/bleed easily. Psychiatric/Behavioral: Negative for dysphoric mood. No Known Allergies Outpatient Medications Prior to Visit Medication Sig Dispense Refill aspirin 81 MG EC tablet Take 81 mg by mouth daily. ezetimibe (Zetia) 10 MG tablet Take 10 mg by mouth in the morning. nitroglycerin (Nitrostat) 0.4 MG SL tablet DISSOLVE 1 TABLET UNDER THE TONGUE EVERY 5 MINUTES NEEDED. carvedilol (Coreg) 6.25 MG tablet Take 6.25 mg by mouth 2 times daily. lisinopril 5 MG tablet Take 1 tablet (5 mg) by mouth daily. 30 tablet 11 atorvastatin (Lipitor) 80 MG tablet Take 1 tablet (80 mg) by mouth every evening. 30 tablet 11 No facility-administered medications prior to visit. Past Medical History: Diagnosis Date Arrhythmia v-fib/ arrest CAD (coronary artery disease) Hyperlipidemia [place], old Sleep apnea Social History Tobacco Use Smoking status: Former Current packs/day: 0.00 Types: Cigarettes Quit date: 08/17/2011 Years since quittin.4 Smokeless tobacco: Never Tobacco comments: Quit smoking: currently occ cigar Substance Use Topics Alcohol use: No Past Surgical History: Procedure Laterality Date CARDIAC PROCEDURE 03/15/2012 BMS mid dis RCA CARDIAC PROCEDURE 03/2012 REBECCA to mis dist LAD CARDIAC PROCEDURE 05/2012 REBECCA to prox LCx CORONARY ANGIOPLASTY 05/2012 circ, distal RCA, & LAD Family History Problem Relation Name Age of Onset Heart disease Father No Known Problems Mother Objective Vitals: 01/16/24 1236 BP: 128/62 Pulse: 65 Weight: 170 lb 3.2 oz (77.2 kg) Height: 5' 5 (1.651 m) Physical Exam Constitutional: General: He is not in acute distress. Appearance: He is not diaphoretic. HENT: Head: Normocephalic. Nose: Nose normal. Mouth/Throat: Mouth: Mucous membranes are moist. Pharynx: No oropharyngeal exudate. Eyes: General: No scleral icterus. Right eye: No discharge. Left eye: No discharge. Neck: Thyroid: No thyromegaly. Vascular: No carotid bruit or JVD. Cardiovascular: Rate and Rhythm: Normal rate and regular rhythm. Pulses: Normal pulses. Heart sounds: Normal heart sounds. Pulmonary: Effort: Pulmonary effort is normal. Breath sounds: Normal breath sounds. Abdominal: General: Bowel sounds are normal. There is no distension. Palpations: There is no hepatomegaly. Tenderness: There is no abdominal tenderness. Musculoskeletal: General: Normal range of motion. Cervical back: Normal range of motion. Right lower leg: No edema. Left lower leg: No edema. Skin: General: Skin is warm and dry. Neurological: Mental Status: He is oriented to person, place, and time. Psychiatric: Mood and Affect: Mood normal. Behavior: Behavior normal. Data Reviewed and Summarized No results found for: EFBP, PLVEF, LVEFPHYS, LVEF2D, EF Review of tests/labs done/ordered within my specialty: EKG in office: Review of tests/labs done/ordered outside my specialty: Independent interpretation of tests: Becky Tineo MD documented in this [facility]06-11-2024 Telephone encounter Note* Telephone Encounter - Conrado Yao MA - 01/09/2024 3:30 PM EDT Business Division Chair Dr. Tineo [phone] fax [phone] cardiac clearance request faxed on 01/09/24. Bronchoscopy, right VATS RUL wedge resection frozen section, mediastinal lymph node dissection, cyro nerve block 02/13/24 [facility]06-10-2024 History of Present illness Narrative* Nadege Tadeo MD - 01/08/2024 1:00 PM EDT PRIMARY CARE PHYSICIAN: Tima Tello [address] [place] [address] Subjective Chief Complaint No chief complaint on file. HISTORY OF PRESENT ILLNESS: Mr. Flores is a 68 year old male with past medical history of coronary artery disease status post multiple stents in [address] Tineo, AAA, hypertension, history of smoking cigars, thrombocytopenia, psoriasis presenting to the office for evaluation of a right upper lobe lung nodule. This was identified on screening CT scan of the chest in July, and follow-up CT in October showedthat the solid nodule in the right upper lobe lobe of the lung increased in size to 1 cm. PET/CT demonstrated avidity of the nodule with a max SUV of 4.1. Patient obtain PFTs, which are fairly normal, and he underwent bronchoscopy/EBUS and navigational bronchoscopy on 12/15/2023 showing negative mediastinum and nodule pathology showing normal lung tissue with some blood. Patient was referred for surgical lung resection for both diagnosis and treatment. He is a fairly active gentleman with no family history of lung cancer. Review of Systems Constitutional: Negative for chills, fever, malaise/fatigue and weight loss. HENT: Negative for sore throat. Eyes: Negative for blurred vision and double vision. Respiratory: Negative for cough, hemoptysis, shortness of breath, wheezing and stridor. Cardiovascular: Negative for chest pain, palpitations and leg swelling. Gastrointestinal: Negative for abdominal pain, melena, nausea and vomiting. Genitourinary: Negative for flank pain and hematuria. Musculoskeletal: Negative for myalgias. Skin: Negative for rash. Neurological: Negative for dizziness, seizures, loss of consciousness and weakness. Endo/Heme/Allergies: Does not bruise/bleed easily. Objective PAST MEDICAL HISTORY Diagnosis Date Abdominal aortic aneurysm (AAA) without rupture (HCC) 3 x 3.1 cm 05/2021, repeat 1 year. Benign neoplasm of colon Coronary artery disease involving chilkoot coronary artery of chilkoot heart without angina pectoris Dr. Tineo Essential hypertension History of tobacco use Multiple lung nodules on CT 11/09/2023 PET scan ordered Psoriasis [facility] Thrombocytopenia (HCC) Tinnitus of both ears PAST SURGICAL HISTORY Procedure Laterality Date COLONOSCOPY FLX DX W/COLLJ SPEC WHEN PFRMD 10/08/2008 Colonoscopy COLONOSCOPY FLX DX W/COLLJ SPEC WHEN PFRMD 08/03/2021 repeat in 10 years EXTRACTION, ERUPTED TOOTH OR EXPOSED ROOT (ELEVATION AND/OR FORCEPS REMOVAL) wisdom HEART CATHETERIZATION 2012 stent x 4 HEART SURGERY HX PAST SURGICAL HISTORY OF age 6 appendectomy, no rupture PAST SURGICAL HISTORY OF Right 09/2021 cyst removal from chest wall TONSILLECTOMY HX TONSILLECTOMY PRIMARY/SECONDARY <AGE 12 tonsillectomy FAMILY HISTORY Problem Relation Age of Onset Breast Cancer Mother Heart Father details uncertain; ? h/o rheumatic fever Stroke Father details uncertain No Known Problems Brother No Known Problems Daughter No Known Problems Daughter No Known Problems Son No Known Problems Son No Known Problems Maternal Grandmother No Known Problems Maternal Grandfather No Known Problems Paternal Grandmother No Known Problems Paternal Grandfather Diabetes Other none Colon Cancer Other none Prostate Cancer Other none Anesthesia Problems No Family History Social History Tobacco Use Smoking status: Former Packs/day: 1.50 Years: 25.00 Additional pack years: 0.00 Total pack years: 37.50 Types: Cigarettes Quit date: 01/24/2011 Years since quittin.9 Smokeless tobacco: Never Vaping Use Vaping Use: Never used Substance Use Topics Alcohol use: Not Currently Drug use: Yes Types: Marijuana Comment: Twice a month ALLERGIES Allergen Reactions Penicillins Hives Physical Examination Vitals:There were no vitals taken for this visit. Last 2 Encounter Wt Readings: Date: Wt: 12/29/2023 178 lb (80.7 kg) 12/08/2023 178 lb 3.2 oz (80.8 kg) Physical Exam HENT: Head: Normocephalic and atraumatic. Eyes: Pupils: Pupils are equal, round, and reactive to light. Neck: Thyroid: No thyromegaly. Trachea: No tracheal deviation. Cardiovascular: Rate and Rhythm: Normal rate and regular rhythm. Heart sounds: Normal heart sounds. No murmur heard. Pulmonary: Effort: Pulmonary effort is normal. No accessory muscle usage or respiratory distress. Breath sounds: Normal breath sounds. Abdominal: General: There is no distension. Palpations: Abdomen is soft. Tenderness: There is no abdominal tenderness. Musculoskeletal: General: No deformity. Normal range of motion. Cervical back: Normal range of motion and neck supple. Right lower leg: No edema. Left lower leg: No edema. Skin: General: Skin is warm and dry. Neurological: Mental Status: He is alert and oriented to person, place, and time. Cranial Nerves: No cranial nerve deficit. Medications Current Outpatient Medications Medication Sig Dispense Refill atorvastatin (LIPITOR) 80 mg tablet Take 1 tablet by mouth daily at bedtime. For cholesterol. 90 tablet 3 ezetimibe (ZETIA) 10 mg tablet Take 1 tablet by mouth once daily. 90 tablet 3 nitroglycerin sublingual (NITROQUICK) 0.4 mg SL tablet Dissolve 1 tablet under the tongue every 5 minutes as needed. 1 Bottle of 25 0 Aspirin 81 mg Tab Take 81 mg by mouth once daily. carvedilol (COREG) 6.25 mg tablet Take 6.25 mg by mouth once daily. lisinopril (ZESTRIL) 5 mg tablet Take 5 mg by mouth once daily. No current facility-administered medications for this visit. CT chest without IV contrast on 12/13/2023: RESULT: Limitations: None. Lines, tubes, and devices: None. Lung parenchyma and airways: The central airways are patent. A few stable right lung nodules identified. For example, there is a 10 mm nodule in the posterior right upper lobe, series 6 image 53. More medially in the right upper lobe, seen is a 4 mm nodule, series 6 image 147. A 2.5 mm nodule is also noted in the right upper lobe, series 6 image 131. Similar groundglass opacities demonstrated in the posterior right upper lobe, series 6 images 139-162. Also seen are scattered tiny nodules in the bilateral lungs. No definite new nodules identified. No consolidations. There are large pericardial fat pads. Pleural space: No pleural effusion. No pleural thickening. Lower neck, lymph nodes, and mediastinum: The imaged thyroid gland is normal. No lymphadenopathy in the supraclavicular, axillary, mediastinal, or hilar regions. Heart, pericardium, and thoracic vessels: The thoracic aorta and main pulmonary artery are normal in caliber. There are atherosclerotic calcifications in the thoracic aorta. The cardiac chambers are normal in size. Linear and punctate coronary artery atherosclerotic calcifications are noted, although the study is not optimized for coronary assessment. No pericardial effusion or thickening. Bones and soft tissues: No destructive bone lesion. Chest wall soft tissue is unremarkable. Upper abdomen: No abnormality in the imaged upper abdomen. Localizer images: No additional findings. Bronchoscopy/EBUS and navigational bronchoscopy on 12/15/2023: FINAL DIAGNOSIS A - Lung, Right Upper Lobe, Transbronchial, Aspirate/Fine Needle Aspirate Negative for malignant cells. Benign bronchial cells. B - Lymph Node, Transbronchial, Aspirate/Fine Needle Aspirate - 11RS Negative for malignant cells. Benign lymphoid sample. C - Lymph Node, Transbronchial, Aspirate/Fine Needle Aspirate - 11RI Negative for malignant cells. Benign lymphoid sample. Component FINAL DIAGNOSIS Right lung, upper lobe, transbronchial biopsy: - Predominantly blood with rare clusters of benign respiratory-type epithelium. TX/ 12/18/2023 PFTs on 12/06/2023 demonstrated an FEV1 of 89% predicted and DLCO of 85% predicted. PET/CT on 12/05/2023 showed increased uptake in the right upper lobe lung nodule with max SUV of 4.1. Assessment and Plan: Mr. Flores is a 68 year old male with past medical history of coronary artery disease status post multiple stents in [address] Tineo, AAA, hypertension, history of smoking cigars, thrombocytopenia, psoriasis presenting to the office for evaluation of a right upper lobe lung nodule. This was identified on screening CT scan of the chest in July, and follow-up CT in October showedthat the solid nodule in the right upper lobe lobe of the lung increased in size to 1 cm. PET/CT demonstrated avidity of the nodule with a max SUV of 4.1. Patient obtain PFTs, which are fairly normal, and he underwent bronchoscopy/EBUS and navigational bronchoscopy on 12/15/2023 showing negative mediastinum and nodule pathology showing normal lung tissue with some blood. Patient was referred for surgical lung resection for both diagnosis and treatment. He is a fairly active gentleman with no family history of lung cancer. Agree for the need for surgery for diagnosis and treatment. Plan will be for flexible bronchoscopy,right VATS, right upper lobe wedge resection to send for frozen, cryo nerve block, mediastinal lymph node dissection. If frozen returns as malignancy we will perform completion right upper lobe lobectomy. 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 Once cleared, we will schedule surgery and PAT appointment for 1 week prior. Surgical Discussion: I have discussed the benefits, risks, indications, and alternatives to surgerywith the patient. Risks discussed include but are not limited to infection, bleeding, cardiac dysrhythmias, myocardial infarction, blood clots, pulmonary emboli, prolonged air leaks, bleeding or fluid drainage requiring reoperation, pneumonia, wound complications, wound infection, , and blood transfusion with associated risks of AIDS or Hepatitis. Expected OR, ICU, hospitalization, and home recovery times were discussed. Surgical approach was also discussed in detail. Nadege Tadeo MD Cardiothoracic Surgery 01/08/24 documented in this encounterA[facility]24 NoteHNO ID: [id number] Author: NADEGE TADEO MD Service: ? Author Type: Physician Type: Progress Notes Filed: 01/08/2024 13:49 Note Text: PRIMARY CARE PHYSICIAN: Tima Tello [address] [place] [address] Subjective Chief Complaint No chief complaint on file. HISTORY OF PRESENT ILLNESS: Mr. Flores is a 68 year old male with past medical history of coronary artery disease status post multiple stents in [address] Tineo, AAA, hypertension, history of smoking cigars, thrombocytopenia, psoriasis presenting to the office for evaluation of a right upper lobe lung nodule. This was identified on screening CT scan of the chest in July, and follow-up CT in October showed that the solid nodule in the right upper lobe lobe of the lung increased in size to 1 cm. PET/CT demonstrated avidity of the nodule with a max SUV of 4.1. Patient obtain PFTs, which are fairly normal, and he underwent bronchoscopy/EBUS and navigational bronchoscopy on 12/15/2023 showing negative mediastinum and nodule pathology showing normal lung tissue with some blood. Patient was referred for surgical lung resection for both diagnosis and treatment. He is a fairly active gentleman with no family history of lung cancer. Review of Systems Constitutional: Negative for chills, fever, malaise/fatigue and weight loss. HENT: Negative for sore throat. Eyes: Negative for blurred vision and double vision. Respiratory: Negative for cough, hemoptysis, shortness of breath, wheezing and stridor. Cardiovascular: Negative for chest pain, palpitations and leg swelling. Gastrointestinal: Negative for abdominal pain, melena, nausea and vomiting. Genitourinary: Negative for flank pain and hematuria. Musculoskeletal: Negative for myalgias. Skin: Negative for rash. Neurological: Negative for dizziness, seizures, loss of consciousness and weakness. Endo/Heme/Allergies: Does not bruise/bleed easily. Objective PAST MEDICAL HISTORY Diagnosis Date Abdominal aortic aneurysm (AAA) without rupture (HCC) 3 x 3.1 cm 05/2021, repeat 1 year. Benign neoplasm of colon Coronary artery disease involving chilkoot coronary artery of chilkoot heart without angina pectoris Dr. Tineo Essential hypertension History of tobacco use Multiple lung nodules on CT 11/09/2023 PET scan ordered Psoriasis [facility] Thrombocytopenia (HCC) Tinnitus of both ears PAST SURGICAL HISTORY Procedure Laterality Date COLONOSCOPY FLX DX W/COLLJ SPEC WHEN PFRMD 10/08/2008 Colonoscopy COLONOSCOPY FLX DX W/COLLJ SPEC WHEN PFRMD 08/03/2021 repeat in 10 years EXTRACTION, ERUPTED TOOTH OR EXPOSED ROOT (ELEVATION AND/OR FORCEPS REMOVAL) wisdom HEART CATHETERIZATION 2012 stent x 4 HEART SURGERY HX PAST SURGICAL HISTORY OF age 6 appendectomy, no rupture PAST SURGICAL HISTORY OF Right 09/2021 cyst removal from chest wall TONSILLECTOMY HX TONSILLECTOMY PRIMARY/SECONDARY tonsillectomy FAMILY HISTORY Problem Relation Age of Onset Breast Cancer Mother Heart Father details uncertain; ? h/o rheumatic fever Stroke Father details uncertain No Known Problems Brother No Known Problems Daughter No Known Problems Daughter No Known Problems Son No Known Problems Son No Known Problems Maternal Grandmother No Known Problems Maternal Grandfather No Known Problems Paternal Grandmother No Known Problems Paternal Grandfather Diabetes Other none Colon Cancer Other none Prostate Cancer Other none Anesthesia Problems No Family History Social History Tobacco Use Smoking status: Former Packs/day: 1.50 Years: 25.00 Additional pack years: 0.00 Total pack years: 37.50 Types: Cigarettes Quit date: 01/24/2011 Years since quittin.9 Smokeless tobacco: Never Vaping Use Vaping Use: Never used Substance Use Topics Alcohol use: Not Currently Drug use: Yes Types: Marijuana Comment: Twice a month ALLERGIES Allergen Reactions Penicillins Hives Physical Examination Vitals:There were no vitals taken for this visit. Last 2 Encounter Wt Readings: Date: Wt: 12/29/2023 178 lb (80.7 kg) 12/08/2023 178 lb 3.2 oz (80.8 kg) Physical Exam HENT: Head: Normocephalic and atraumatic. Eyes: Pupils: Pupils are equal, round, and reactive to light. Neck: Thyroid: No thyromegaly. Trachea: No tracheal deviation. Cardiovascular: Rate and Rhythm: Normal rate and regular rhythm. Heart sounds: Normal heart sounds. No murmur heard. Pulmonary: Effort: Pulmonary effort is normal. No accessory muscle usage or respiratory distress. Breath sounds: Normal breath sounds. Abdominal: General: There is no distension. Palpations: Abdomen is soft. Tenderness: There is no abdominal tenderness. Musculoskeletal: General: No deformity. Normal range of motion. Cervical back: Normal range of motion and neck supple. Right lower (more content not included)...[facility]06-03-2024 Telephone encounter Note* Telephone Encounter - Shaylee Brito - 01/01/2024 12:14 PM EDT Message relayed to patient [facility] Work Phone: 1(174) 319-399106-03-2024 Miscellaneous Notes* Telephone Encounter - Shaylee Brito - 01/01/2024 12:14 PM EDT Message relayed to patient * Telephone Encounter - Merary Quinones RN - 01/01/2024 10:08 AM EDT I called patient to notify him that it appears that Dr Nunez is waiting until patient consults with surgery to see what the surgeon's plan would be before proceeding with radiation. I had to leave a message on patient's voicemail. * Telephone Encounter - Shaylee Brito - 12/29/2023 3:23 PM EDT Patient called stating he is scheduled for 01/07 - consult for surgery. He states he is to start radiation after. Patient was concerned that Dr. Nunez thought he wasn't interested in radiation. Patient states he is and would like to schedule when able. documented in this encounterA[facility]06-[facility]-2024 Telephone encounter Note * Telephone Encounter - Merary Quinones RN - 01/01/2024 10:08 AM EDT I called patient to notify him that it appears that Dr Nunez is waiting until patient consults with surgery to see what the surgeon's plan would be before proceeding with radiation. I had to leave a message on patient's voicemail. [facility]05-31-20[facility] Telephone encounter Note* Telephone Encounter - Shaylee Brito - 12/29/2023 3:23 PM EDT Patient called stating he is scheduled for 01/07 - consult for surgery. He states he is to start radiation after. Patient was concerned that Dr. Nunez thought he wasn't interested in radiation. Patient states he is and would like to schedule when able. [facility]05-31-[facility] History of Present illness Narrative* Stephen Nunez MD - 12/29/2023 10:55 AM EDT Radiation Oncology - New Patient/Consult Note PATIENT NAME: Sharonda Flores PATIENT REQUESTING PROVIDER: Charo Tsai DIAGNOSIS: PET positive right upper lung nodule. HPI: 68 year old male who presents with above diagnosis, for an opinion regarding the role of radiation therapy in the management of the patient's disease. Final recommendations will be communicated back to the requesting physician by way of the shared medical record, or letter to requesting physician via US mail. 68 year old man who has 37.5 pack-year history of smoking quitting 13 years ago. He had a screening CT chest on 08/03/23. It showed multiple lung nodules with the largest measuring 7.7 mm (9.1 mm x 6.2 mm) in the right upper lung. There was mild ground-glass opacity is present along the lateral margin of this nodule. There were other solid nodule measuring 3.3 mm in the right upper lung and 3 mm in the right upper lung. Follow-up CT chest on 11/06/23 showed that the solid nodule in the right upper lung increased in size to 10.2 mm (11.2 x 9.2 mm). Other right upper lung noduleswere stable measuring 2.5 mm and 4 x 3 mm. PET/CT scan on 12/05/23 showed increased uptake in the right upper lung nodule with max SUV of 4.1 fulfilling quantitative criteria for viable neoplasm. He underwent bronchoscopy on 12/15/23. There are no endobronchial lesions, and no secretions. The sampling site was not visible endoscopically. Robotic bronchoscopy using CT fusion and TBNA of the right upper nodule showed was non- diagnostic. It showed predominantly blood with rare clusters of benign respiratory-type epithelium. EBUS and TBNA of 11RS node and 11RI node were negative for malignant cells. PFT on 12/06/23 showed FEV1 2.48L, 89% predicted and DLCO 85% predicted. ALLERGIES Allergen Reactions Penicillins Hives Current Outpatient Medications on File Prior to Visit Medication Sig atorvastatin (LIPITOR) 80 mg tablet Take 1 tablet by mouth daily at bedtime. For cholesterol. ezetimibe (ZETIA) 10 mg tablet Take 1 tablet by mouth once daily. nitroglycerin sublingual (NITROQUICK) 0.4 mg SL tablet Dissolve 1 tablet under the tongue every 5 minutes as needed. Aspirin 81 mg Tab Take 81 mg by mouth once daily. carvedilol (COREG) 6.25 mg tablet Take 6.25 mg by mouth once daily. lisinopril (ZESTRIL) 5 mg tablet Take 5 mg by mouth once daily. No current facility-administered medications on file prior to visit. PAST MEDICAL HISTORY Diagnosis Date Abdominal aortic aneurysm (AAA) without rupture (HCC) 3 x 3.1 cm 05/2021, repeat 1 year. Benign neoplasm of colon Coronary artery disease involving chilkoot coronary artery of chilkoot heart without angina pectoris Dr. Tineo Essential hypertension History of tobacco use Multiple lung nodules on CT 11/09/2023 PET scan ordered Psoriasis [facility] Thrombocytopenia (HCC) Tinnitus of both ears Prior radiation therapy, collagen vascular disease, or inflammatory bowel disease: No Any implanted or external electric devices? No PAST SURGICAL HISTORY Procedure Laterality Date COLONOSCOPY FLX DX W/COLLJ SPEC WHEN PFRMD 10/08/2008 Colonoscopy COLONOSCOPY FLX DX W/COLLJ SPEC WHEN PFRMD 08/03/2021 repeat in 10 years EXTRACTION, ERUPTED TOOTH OR EXPOSED ROOT (ELEVATION AND/OR FORCEPS REMOVAL) wisdom HEART CATHETERIZATION 2012 stent x 4 HEART SURGERY HX PAST SURGICAL HISTORY OF age 6 appendectomy, no rupture PAST SURGICAL HISTORY OF Right 09/2021 cyst removal from chest wall TONSILLECTOMY HX TONSILLECTOMY PRIMARY/SECONDARY <AGE 12 tonsillectomy FAMILY HISTORY Problem Relation Age of Onset Breast Cancer Mother Heart Father details uncertain; ? h/o rheumatic fever Stroke Father details uncertain No Known Problems Brother No Known Problems Daughter No Known Problems Daughter No Known Problems Son No Known Problems Son No Known Problems Maternal Grandmother No Known Problems Maternal Grandfather No Known Problems Paternal Grandmother No Known Problems Paternal Grandfather Diabetes Other none Colon Cancer Other none Prostate Cancer Other none Anesthesia Problems No Family History Social History Tobacco Use Smoking status: Former Packs/day: 1.50 Years: 25.00 Additional pack years: 0.00 Total pack years: 37.50 Types: Cigarettes Quit date: 01/24/2011 Years since quittin.9 Smokeless tobacco: Never Vaping Use Vaping Use: Never used Substance Use Topics Alcohol use: Not Currently Drug use: Yes Types: Marijuana Comment: Twice a month COMPLETE REVIEW OF SYSTEMS: GENERAL: feeling well without fatigue, no recent change in weight HEENT: denies LANG, change in hearing or vision, no other ENT complaints NECK: denies swelling or pain in neck RESPIRATORY: no cough, no wheezing or shortness of breath CARDIOVASCULAR: h/o [place] in 2012 s/p 4 stents. GI: normal appetite, tolerating PO well, BMs normal, and no abdominal pain : urination is normal MUSCULOSKELETAL: arthritis in hands. SKIN: psoriasis HEMATOLOGY/LYMPHOLOGY: negative for prolonged bleeding, no swollen lymph nodes NEURO: no numbness or paresthesias and no weakness of the extremities PHYSICAL EXAM: VS: BP 131/90 Pulse 69 Temp 36.4 C (97.5 F) (Temporal) Wt 80.7 kg (178 lb) SpO2 98% BMI 28.00 kg/m KPS: 100 General Appearance: Alert and oriented. No acute distress. HEENT: NCAT. Sclera anicteric. EOMI. Neck: Normal ROM. Chest: No respiratory distress. Musculoskeletal: Normal ROM in extremities. Neuro: Speech fluent. Gait normal. No focal deficits. Hematologic: No signs of active bleeding. RADIOLOGY/LABORATORY DATA: see HPI ASSESSMENT AND PLAN: 68 year old man with PET positive right upper lung nodule. It was found on screening CT chest in July and a follow-up CT scan 4 months later showed that itincreased in size from average 7.7 mm to 10.2 mm. Bronchoscopy and biopsy was non-diagnostic but itcould be a sampling error. I discussed further management option. Empirical SBRT can be an option. I went over the rationale, benefits and potential complications of SBRT in detail. He has good PFT results and surgical excisional biopsy can be considered. He is scheduled to see Dr. Nadege Tadeo, a thoracic surgeon, to discuss surgical options on 01/08/24. Thank you very much for allowing us to participate in his care. Signed by: Stephen Nunez MD cc: Tima Tello [address] [place] [address] Charo Tsai [id number] [facility] [id number] documented in this encounterAdena [facility]05-31-2024 Nurse Note* Alba Limon RN - 12/29/2023 9:24 AM EDT Radiation Therapy - Nursing Note (Consult) PATIENT NAME: Sharonda Flores PATIENT December 29, 2023 [facility] [place] FACILITY/LOCATION: [place] Chief Complaint: Lung nodule Reason for visit: Consult. Referring physician: Internal provider Dr Tello Subjective Data: no complaints Additional Data Do you want to see a Sorting Cows Worker? No Are you interested in information about fertility? No Status: Patient is male Stress Scale: On a scale of 0 to 10, what number best describes how much distress you have experienced in the past week?(0 being no distress and 10 being extreme distress) 0 Social work notified: Pt denied need to see social media analyst at this time. SIGNED by: Alba Limon RN [facility]05-31-2024 Nurse Note* Alba Limon RN - 12/29/2023 9:24 AM EDT Radiation Therapy - Nursing Note (Consult) PATIENT NAME: Sharonda Flores PATIENT December 29, 2023 [facility] [place] FACILITY/LOCATION: [place] Chief Complaint: Lung nodule Reason for visit: Consult. Referring physician: Internal provider Dr Tello Subjective Data: no complaints Additional Data Do you want to see a Sorting Cows Worker? No Are you interested in information about fertility? No Status: Patient is male Stress Scale: On a scale of 0 to 10, what number best describes how much distress you have experienced in the past week?(0 being no distress and 10 being extreme distress) 0 Social work notified: Pt denied need to see social media analyst at this time. SIGNED by: Alba Limon RN documented in this encounterAdena [facility]05-24-2024 Telephone encounter Note * Telephone Encounter - Charo Tsai APRN.CNP - 12/22/2023 1:13 PM EDT Spoke with patient and the following results were discussed: Cytology/pathology bronchoscopy 12/15/2023 Results Negative for malignancy Recommendations: Consult RAD ONC and thoracic surgery due to nodule increasing in size and suspicious for malignancy. PET avid 10.2 mm RUL lung nodule. Increased in size form 08/03/2023 CT Chest when it measured 7x7 mm. Case was reviewed with Dr. Fuentes. Patient verbalized understanding of the results and had no other questions or concerns at this time. Charo Tsai APRN.CNP December 22, 2023 1:13 PM [facility]05-24-[facility]24 Miscellaneous Notes* Telephone Encounter - Charo Tsai APRN.CNP - 12/22/2023 1:13 PM EDT Spoke with patient and the following results were discussed: Cytology/pathology bronchoscopy 12/15/2023 Results Negative for malignancy Recommendations: Consult RAD ONC and thoracic surgery due to nodule increasing in size and suspicious for malignancy. PET avid 10.2 mm RUL lung nodule. Increased in size form 08/03/2023 CT Chest when it measured 7x7 mm. Case was reviewed with Dr. Fuentes. Patient verbalized understanding of the results and had no other questions or concerns at this time. Charo Tsai APRN.CNP December 22, 2023 1:13 PM documented in this encounterAdena [facility]05-17-2024 NoteHNO ID: [id number] Author: ANDREA BYRD APRN.SALES ATTENDANT Service: Anesthesiology Author Type: Nurse Tea And Spice Supervisor Type: Anesthesia Procedure Notes Filed: 12/15/2023 09:50 Note Text: ANESTHESIOLOGY PROCEDURE NOTE Airway General Information Procedure Start Time/Medication Administration: 12/15/2023 9:46 AM Procedure End Time: 12/15/2023 9:47 AM Patient location during procedure: OR Staffing Anesthesiologist: Antonio Mcclure MD SALES ATTENDANT: Andrea Byrd APRN.SALES ATTENDANT Performed by: JESSIE Indications and Patient Condition Indications for airway management: anesthesia Patient position: sniffing Method: asleep Final Airway Details Final airway type: supraglottic airway Number of attempts at approach: 1 Final Supraglottic Airway: i-gel Size 5 Seal Adequate: yes Airway not difficult SIGNATURE: Andrea Byrd APRN.CRNA PATIENT NAME: Sharonda Flores DATE: December 15, 2023 TIME: 9:49 AM CSN: [id number] NoteHNO ID: [id number] Author: ANDREA BYRD APRN.CRNA Service: Anesthesiology Author Type: Nurse Tea And Spice Supervisor Type: Anesthesia Procedure Notes Filed: 12/15/2023 11:27 Note Text: ANESTHESIOLOGY PROCEDURE NOTE Airway General Information Procedure Start Time/Medication Administration: 12/15/2023 7:55 AM Procedure End Time: 12/15/2023 7:56 AM Patient location during procedure: OR Patient identity confirmed: arm band, 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 and 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 turbine and patient Staffing Anesthesiologist: Antonio Mcclure MD SALES ATTENDANT: Andrea Byrd APRN.SALES ATTENDANT Performed by: JESSIE Indications and Patient Condition Indications for airway management: anesthesia Preoxygenated: yes anesthesia circuit Patient position: sniffing Method: asleep Difficult Mask: No Airway Accessory: oral airway (100 mm) Final Airway Details Final airway type: endotracheal airway Final Endotracheal Airway: ETT (Jeffery) Cuffed: yes Successful intubation technique: direct laryngoscopy Endotracheal tube insertion site: oral Blade: Rishabh Blade size: #4 ETT size (mm): 8.5 Measured from: lips Measurement (cm): 22 Placement verified by: chest auscultation Cormack-Lehane Classification: grade IIa - partial view of glottis Number of attempts at approach: 1 Airway not difficult Comments Gums, teeth and lips intact post atraumatic intubation. SIGNATURE: Andrea Byrd APRN.CRNA PATIENT NAME: Sharonda Flores DATE: December 15, 2023 TIME: 8:07 AM CSN: [id number] [facility]FaF[facility] Patient Name: Sharonda Flores Procedure Date: 12/15/2023 7:07 AM Date of : 1955 Admit Type: Ambulatory Age: 68 Room: OR 2A Gender: Male Attending MD: Tima Guardado MD, [id number] Procedure: Bronchoscopy Indications: Mediastinal staging of suspected lung cancer., Right upper lobe nodule Providers: Tima Guardado MD (Doctor), Concepcion Merchant RN (Assisting Nurse), Jackie Ellis RN (Assisting Nurse), Ann Hook, COLEEN (Assisting Nurse) Referring MD: Requesting Physician: Patient Profile: Refer to note in patient chart for documentation of history and physical. Imaging Source: PET scan of whole body. Clinical Radiographic Stage: T1, N0, M0. Medicines: General Anesthesia, See the Anesthesia note for documentation of the administered medications Complications: No immediate complications Procedure: Pre-Anesthesia Assessment: - A History and Physical has been performed. Patient meds and allergies have been reviewed. The risks and benefits of the procedure and the sedation options and risks were discussed with the patient. All questions were answered and informed consent was obtained. Patient identification and proposed procedure were verified prior to the procedure by the physician, the nurse, the anesthesiologist and the crate icer in the procedure room. Mental Status Examination: normal. Respiratory Examination: clear to auscultation. CV Examination: normal. ASA Grade Assessment: III - A patient with severe systemic disease. After reviewing the risks and benefits, the patient was deemed in satisfactory condition to undergo the procedure. The anesthesia plan was to use general anesthesia. Immediately prior to administration of medications, the patient was re-assessed for adequacy to receive sedatives. The heart rate, respiratory rate, oxygen saturations, blood pressure, adequacy of pulmonary ventilation, and response to care were monitored throughout the procedure. The physical status of the patient was re-assessed after the procedure. After obtaining informed consent, the Bronchoscope was introduced through the mouth, via the endotracheal tube and advanced to the tracheobronchial tree of both lungs. the Bronchoscope was introduced through the mouth, via the endotracheal tube and advanced to the tracheobronchial tree of both lungs. The procedure was accomplished without difficulty. The patient tolerated the procedure well. Total fluoroscopy time was 6 minutes, 26 seconds. Fluoroscopy radiation dose: 77 mGy. Findings: The endotracheal tube is in good position. The trachea is of normal caliber. The bill is sharp. The tracheobronchial tree was examined to at least the first subsegmental level. Bronchial mucosa and anatomy are normal; there are no endobronchial lesions, and no secretions. Robotic bronchoscopy utilizing the [employer] robot platform was performed. The CT scan was used for planning purposes. A virtual bronchoscopic image was generated using the planning software. The target in the right upper lobe (located in the middle one-third of the lung) was identified and marked. A solid nodule 8 mm in size was found and a pathway was created. CT-body registration was then achieved per standard workflows. Navigation to the lesion was performed. Advanced imaging using c-arm based tomography (CABT) was used to further target the lesion(s). Two spins were done. Based on this radiographic information, adjustments in targeting were made. A ntws-cb-gscvtw (TIL) spin was performed. Eecm-xk-kazspp position was achieved at the end of navigation. Transbronchial needle aspirations of a solid nodule were performed in the right upper lobe using a SuperTrax 21 gauge needle and sent for routine cytology and histopathology examination. The procedure was guided by fluoroscopy. Transbronchial needle aspiration technique was selected because the sampling site was not visible endoscopically. The sampling device penetrated the full thickness of the bronchial wall to obtain the needle aspiration of lung tissue. 10 samples were obtained. Rapid On-Site Evaluation (TOMMY): Preliminary cytology of the lesion in the right upper lobe was non-diagnostic. Once the airway inspection was completed, the standard bronchoscope was withdrawn and the convex probe endobronchial ultrasound (EBUS) bronchoscope was inserted through the same route. A systematic staging of the hilum and mediastinum was performed. Lymph Nodes: The following lymph nodes were evaluated and/or sampled. Lymph node sizing was performed via endobronchial ultrasound for suspected lung cancer. Sampling by transbronchial needle aspiration was also performed using an Olympus GraphiclyiShot 22 gauge needle and sent for routine cytology. - The 11L (interlobar) node was 3.8 mm by EBUS, [address] and non-hy (more content not included)...[id number] History of Present illness Narrative* Modesta Rivera MD - 12/14/2023 9:17 AM EDT VIRTUAL VISIT PROGRESS NOTE This is a virtual visit using [employer] Video Call. It required patient- provider interaction for the medical decision making as documented below. Sharonda Flores is a 68 year old male seen for an enlarging lung nodule. Mr. Flores originally was found to have a 9.1 mm x 6.2 mm RUL lung nodule on 08/03/23 during lung cancer screening. This was followed by CT chest imaging on 11/06/23 which showed that the lung nodule increased in size to 11.2 x 9.2 mm. This was followed by PET imaging on 12/05/23 which showed PET avidityin the RUL lung nodule. No prior CT chest imaging to July. Denies any chest pain, shortness of breath, nausea/vomiting, fever/chills, cough, weight loss, or hemoptysis. +Ex-smoker - cigars. Smoked 10 per week. Quit in 2007. Occupation - Retired. 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 Had some exposure to asbestos in the past. + Cat at home Born in [place]. Lived in [place] the majority of his life. No recent travel history No flu shot + Covid shots x 2 HISTORY REVIEWED (electronic chart updated): PAST MEDICAL HISTORY Diagnosis Date Abdominal aortic aneurysm (AAA) without rupture (HCC) 3 x 3.1 cm 05/2021, repeat 1 year. Benign neoplasm of colon Coronary artery disease involving chilkoot coronary artery of chilkoot heart without angina pectoris Dr. Tineo Essential hypertension History of tobacco use Multiple lung nodules on CT 11/09/2023 PET scan ordered Psoriasis [facility] Thrombocytopenia (HCC) Tinnitus of both ears PAST SURGICAL HISTORY Procedure Laterality Date COLONOSCOPY FLX DX W/COLLJ SPEC WHEN PFRMD 10/08/2008 Colonoscopy COLONOSCOPY FLX DX W/COLLJ SPEC WHEN PFRMD 08/03/2021 repeat in 10 years EXTRACTION, ERUPTED TOOTH OR EXPOSED ROOT (ELEVATION AND/OR FORCEPS REMOVAL) wisdom HEART CATHETERIZATION 2011 stent x 4 HEART SURGERY HX PAST SURGICAL HISTORY OF age 6 appendectomy, no rupture PAST SURGICAL HISTORY OF Right 09/2021 cyst removal from chest wall TONSILLECTOMY HX TONSILLECTOMY PRIMARY/SECONDARY <AGE 12 tonsillectomy FAMILY HISTORY Problem Relation Age of Onset Breast Cancer Mother Heart Father details uncertain; ? h/o rheumatic fever Stroke Father details uncertain No Known Problems Brother No Known Problems Daughter No Known Problems Daughter No Known Problems Son No Known Problems Son No Known Problems Maternal Grandmother No Known Problems Maternal Grandfather No Known Problems Paternal Grandmother No Known Problems Paternal Grandfather Diabetes Other none Colon Cancer Other none Prostate Cancer Other none Anesthesia Problems No Family History Social History Tobacco Use Smoking status: Former Packs/day: 1.50 Years: 25.00 Additional pack years: 0.00 Total pack years: 37.50 Types: Cigarettes Quit date: 01/24/2011 Years since quittin.8 Smokeless tobacco: Never Vaping Use Vaping Use: Never used Substance Use Topics Alcohol use: Not Currently Drug use: Yes Types: Marijuana Comment: Twice a month Current Outpatient Medications Medication Sig atorvastatin (LIPITOR) 80 mg tablet Take 1 tablet by mouth daily at bedtime. For cholesterol. ezetimibe (ZETIA) 10 mg tablet Take 1 tablet by mouth once daily. nitroglycerin sublingual (NITROQUICK) 0.4 mg SL tablet Dissolve 1 tablet under the tongue every 5 minutes as needed. Aspirin 81 mg Tab Take 81 mg by mouth once daily. carvedilol (COREG) 6.25 mg tablet Take 6.25 mg by mouth once daily. lisinopril (ZESTRIL) 5 mg tablet Take 5 mg by mouth once daily. No current facility-administered medications for this visit. ALLERGIES Allergen Reactions Penicillins Hives REVIEW OF SYSTEMS: GENERAL: feeling well without fatigue, no recent change in weight HEENT: denies LANG, change in hearing or vision, no other ENT complaints NECK: denies swelling or pain in neck RESPIRATORY: no cough, no wheezing or shortness of breath CARDIOVASCULAR: no chest pain, no palpitations GI: normal appetite, tolerating PO well, BMs normal, and no abdominal pain MUSCULOSKELETAL: denies any painful or swollen joints, no muscle aches SKIN: no rash PSYCH: denies depressed or anxious mood, sleep is normal HEMATOLOGY/LYMPHOLOGY: negative for prolonged bleeding, no swollen lymph nodes ENDOCRINE: denies cold/heat intolerance, denies polyuria or polydipsia, no goiter NEURO: no numbness or paresthesias and no weakness of the extremities All other ROS: negative PHYSICAL EXAMINATION: VIDEO EXAM: (if completed, performed via video enabled technology) GENERAL: alert and appropriate, in no distress, well-hydrated, well nourished, and happy, smiling, interactive SKIN: no rash noted HEAD: normocephalic, no abnormality or lesion noted EYES: no injection and visual acuity is grossly normal EARS: hearing grossly normal NOSE: external nose normal without rhinorrhea OROPHARYNX: moist mucus membranes NECK: full ROM, no cervical LNs noted RESPIRATORY: breathing non-labored CHEST: equal chest rise with normal respiratory effort ASSESSMENT: Mr. Flores is an ex-smoker who was originally was found to have a 9.1 mm x 6.2 mm RUL lung nodule on 08/03/23. This was followed by CT chest imaging on 11/06/23 which showed that the lung nodule increased in size to 11.2 x 9.2 mm. This was followed by PET imaging on 12/05/23 which showed PET avidity in the RUL lung nodule. We discussed in detail that the etiology of the enlarging PET avid lung nodule is most likely secondary to a primary lung cancer. The recommendation at this time is for a diagnostic robotic bronchoscopy followed by systematic staging of the hilum and mediastinum. PLAN: - Mr. Flores understands the risks and benefits of a diagnostic bronchoscopy and is agreeable with proceeding at this time. There are no contraindications to anesthesia. Further recommendations pending findings from the bronchoscopy. - NPO after midnight tonight in anticipation for a bronchoscopy tomorrow - Labs and EKG reviewed - Not any blood thinners I spent a total of 70 minutes on the date of the service which included preparing to see the patient, [id number] patient care, completing clinical documentation, obtaining and/or reviewing separately obtained history, performing a medically appropriate examination, counseling and educating the pat ient/family/caregiver, ordering medications, tests, or procedures, communicating with other HCPs (not separately reported), independently interpreting results (not separately reported), communicatingresults to the patient/family/caregiver, and care coordination (not separately reported) Modesta Rivera MD December 14, 2023 9:28 AM documented in this encounterA[facility]05-[facility]24 Miscellaneous Notes* Telephone Encounter - Charo Tsai APRN.CNP - 12/13/2023 9:00 AM EDT Attempted to call patient 12/13/2023, no answer. * Telephone Encounter - Charo Tsai APRN.CNP - 12/12/2023 5:05 PM EDT Attempted to call patient, no answer. Charo Tsai APRN.CNP * Telephone Encounter - Brianna Salinas RN - 12/11/2023 3:34 PM EDT No result notes observed. If provider would please state results and call patient back. Thank you. Brianna Salinas RN * Telephone Encounter - Charo Tsai APRN.CNP - 12/11/2023 3:23 PM EDT Left message for pt to call back regarding results. documented in this encounterAden[facility]05-15-2024 Telephone encounter Note * Telephone Encounter - Charo Tsai APRN.CNP - 12/13/2023 9:00 AM EDT Attempted to call patient 12/13/2023, no answer. [facility] Work Phone: 1(155) 425-887705-15-2024 History of Present illness Narrative* Kya Ramirez, RT(R) - 12/13/2023 8:20 AM EDT Radiology Service Progress Note PATIENT NAME: Sharonda Flores DATE OF SERVICE: December 13, 2023 TIME: 3:58 PM PATIENT IDENTITY VERIFICATION COMPLETED USING TWO (2) IDENTIFIERS: Name and Date of confirmedby patient verbally. FALL SCREENING: Has the patient had 2 falls in the last year or 1 fall with injury or currently using an Ambulatory Assistive Device (Walker, Cane, Wheelchair, Crutches, etc.)? No PATIENT GENDER DATA: Male PATIENT RELEVANT IMPLANT DATA REVIEWED: Yes PATIENT PRESENTS WITH AN IMPLANTABLE OR ATTACHED FIREFIGHTER: No RADIOLOGY DEPARTMENT: CT; Exam(s) Completed: Chest PERIPHERAL IV DATA: Not applicable SIGNED BY: RT Lashanw(R) December 13, 2023 3:58 PM documented in this encounterAden[facility]05-14-2024 Telephone encounter Note * Telephone Encounter - Charo Tsai APRN.CNP - 12/12/2023 5:05 PM EDT Attempted to call patient, no answer. Charo Tsai APRN.CNP [facility]05-13-2024 Telephone encounter Note* Telephone Encounter - Brianna Salinas RN - 12/11/2023 3:34 PM EDT No result notes observed. If provider would please state results and call patient back. Thank you. Brianna Salinas RN [facility]05-13-2024 Telephone encounter Note* Telephone Encounter - Charo Tsai APRN.CNP - 12/11/2023 3:23 PM EDT Left message for pt to call back regarding results. [facility]05-10-[facility] Instructions* Patient Instructions* Shaylee Ochoa LPN - 12/08/2023 7:53 AM EDT Screening schedule The following prevention plan is recommended: BP Controlled (<130/80) Never done Advance Directive Discussion Never done Behavioral Health Screening Never done WHAT YOU CAN DO TO PREVENT FALLS Many falls can be prevented. By making some changes, you can lower your chances of falling. Four things YOU can do to prevent falls for you* and your caregiver 1. Begin a regular exercise program Exercise is one of the most important ways to lower your chances of falling. It makes you stronger and helps you feel better. Exercises that improve balance and coordination (like [place] [employer]) are the most helpful. Lack of exercise leads to weakness and increases your chances of falling. Ask your doctor or health care provider about the best type of exercise program for you. 2. Have your health care provider review your medicines Have your doctor or pharmacist review all the medicines you take, even phlk-npx-vyyfjoq medicines. As you get older, the way medicines work in your body can change. Some medicines, or combinations of medicines, can make you sleepy or dizzy andcan cause you to fall. 3. Have your vision checked Have your eyes checked by an eye doctor at least once a year. You may be wearing the wrong glasses or have a condition like glaucoma or cataracts that limits your vision. Poor vision can increase your chances of falling. 4. Make your home safer About half of all falls happen at home. To make your home safer: Remove things you can trip over (like papers, books, clothes, and shoes) from stairs and places where you walk. Remove small throw rugs or use double-sided tape to keep the rugs from slipping. Keep items you use often in cabinets you can reach easily without using a step stool. Have grab bars put in next to your toilet and in the tub or shower. Use non-slip mats in the bathtub and on shower floors. Improve the lighting in your home. As you get older, you need brighter lights to see well. Hang light-weight curtains or shades to reduce glare. Have handrails and lights put in on all staircases. Wear shoes both inside and outside the house. Avoid going barefoot or wearing slippers. For more information, contact: Centers for Disease Control and Prevention www.cdc.gov/injury * This information may not apply if you have certain medical conditions. documented in this encounterAdena [facility]05-10-2024 History of Present illness Narrative* Tima Tello MD - 12/08/2023 7:42 AM EDT Images from the original note were not included. Sharonda Flores is a 68 year old male here for a Medicare wellness visit. Patient is unsure if he has been taking both the Lipitor and Zetia. Will check when he gets home and notify our office. Discussed starting PCSK9 inhibitor if he has been compliant with regimen. Denies angina, SOB, palpitations, LE edema with history of CAD. Managed by Dr. Tineo. Scheduled for bronchoscopy for nodules found on CT scan in October with Dr. More's office. PET scan and repeat CT chest ordered. Medicare Health Risk Assessment General Health Excellent Exercise: Minutes/Day 120 min Exercise: Days/Week 7 days Alcohol: Daily Use Monthly or less Alcohol: Drinks/Day 1 or 2 Alcohol: 6 or more drinks Never Feel off balance No Concerns: Teeth/Dentures No Concerns: Sexual function No Troubled by feelings None of the above Frequency: Eating healthy diet Several days (Once per week) ADLs requiring help None of the above Safety precautions in home/vehicle No (has 2 throw rugs) Smoke, vape, chews tobacco No Difficulty hearing No Difficulty seeing No Current Providers Specialists: I have reviewed specialist-related care of the patient in the medical record. Current care team: Patient Care Team: Tima Tello MD as PCP - General (Family Medicine) Outside specialists seen: Dr. Tineo-Cardiology, pulmonology-Dr. More Medical/Family history review Reviewed and updated problem list, medical/surgical/family/social history, medications, and allergies. Opioid use review Opioid Medications (last 90 days) No data to display Depression screening Depression Screening PHQ-2 Score 06/09/2023 0 Depression screening tool completed and reviewed. Based on score and interview, patient is not at risk for depression. Screening tool discussed with patient, and I recommended no further interventionat this time. Cognitive screening Mini Cog Score: 3 Cognitive screening reviewed and No further action needed (score 3-5). Functional Observation Was the patient's Timed Up & Go test unsteady or ? 12 seconds? No Advance Care Planning Patient did not wish or was not able to name a surrogate decision maker or provide an advance care plan Measurements BP 124/70[recheck[ Pulse 70 Resp 16 Wt 178 lb 3.2 oz (80.8kg) SpO2 97% Vision Screening: Right: Left: Both: with correction Latest Ref Rng 11/29/2023 WBC 3.70 - 11.00 k/uL 4.63 RBC 4.20 - 6.00 m/uL 4.77 Hemoglobin 13.0 - 17.0 g/dL 13.9 Hematocrit 39.0 - 51.0 % 42.7 MCV 80.0 - 100.0 fL 89.5 MCH 26.0 - 34.0 pg 29.1 MCHC 30.5 - 36.0 g/dL 32.6 RDW-CV 11.5 - 15.0 % 12.7 Platelet Count 150 - 400 k/uL 125 (L) MPV 9.0 - 12.7 fL 10.9 Neut% % 66.8 Abs Neut (ANC) 1.45 - 7.50 k/uL 3.09 Lymph% % 19.7 Abs Lymph 1.00 - 4.00 k/uL 0.91 (L) [place]% % 9.5 Abs [place] <0.87 k/uL 0.44 Eosin% % 2.8 Abs Eosin <0.46 k/uL 0.13 Baso% % 0.6 Abs Baso <0.11 k/uL 0.03 Immature Gran % % 0.6 IMMATURE GRANS (ABS) <0.10 k/uL 0.03 NRBC /100 WBC 0.0 Absolute nRBC <0.01 k/uL <0.01 DTYPE Auto Glucose 74 - 99 mg/dL 105 (H) BUN 9 - 24 mg/dL 18 Creatinine 0.73 - 1.22 mg/dL 1.00 Sodium 136 - 144 mmol/L 139 Potassium 3.7 - 5.1 mmol/L 4.3 Chloride 97 - 105 mmol/L 105 CO2 22 - 30 mmol/L 29 Anion Gap 9 - 18 mmol/L 5 (L) Calcium 8.5 - 10.2 mg/dL 9.2 eGFR >=60 mL/min/1.73m 82 Cholesterol, Total <200 mg/dL 230 (H) Triglyceride <150 mg/dL 307 (H) HDL Cholesterol >39 mg/dL 32 (L) Non HDL Cholesterol <130 mg/dL 198 (H) Fasting Time hrs 12 VLDL Cholesterol <30 mg/dL 61 (H) TC:HDL Ratio <5.10 7.19 (H) LDL Cholesterol <100 mg/dL 137 (H) LDL:HDL Ratio <2.54 4.28 (H) The 10-year ASCVD risk score (Patricia HARP, et al., 2019) is: 26.6% Values used to calculate the score: Age: 68 years Sex: Male Is Non- : No Diabetic: No Tobacco smoker: No Systolic Blood Pressure: 136 mmHg Is BP treated: Yes HDL Cholesterol: 32 mg/dL Total Cholesterol: 230 mg/dL ASSESSMENT/PLAN: 1. Medicare annual wellness visit, subsequent - ICD9: V70.0, ICD10: Z00.00 (primary diagnosis) Medicare annual wellness visit, subsequent (Z00.00) - Counseled on healthy diet and regular exercise - Fall avoidance information provided - Personalized prevention plan provided - Discussed need for and benefit of weight loss. BMI 28.04 kg/(m^2) 2. Essential hypertension - ICD9: 401.9, ICD10: I10 - Controlled - Continue current medications - Recommend home blood pressure monitoring, to bring results to next visit - Encouraged sodium restriction, DASH or Mediterranean diet - Recommend regular aerobic exercise 3. Mixed hyperlipidemia - ICD9: 272.2, ICD10: E78.2 - Uncontrolled - Patient to check if he has been taking statin and zetia. If not, will restart and check lipid panel in 3 months. Goal LDL <70. - Counseled on healthy diet and regular exercise - ATORVASTATIN 80 MG TABLET 4. Coronary artery disease involving chilkoot coronary artery of chilkoot heart without angina pectoris- ICD9: 414.01, ICD10: I25.10 Asymptomatic on medical management. F/u with cardiology. 5. Thrombocytopenia (HCC) - ICD9: 287.5, ICD10: D69.6 Stable. 6. Multiple lung nodules on CT - ICD9: 793.19, ICD10: R91.8 F/u with pulmonology for bronchoscopy and PET scan. 7. Tobacco use disorder - ICD9: 305.1, ICD10: F17.200 Quit in 2010. Tima Tello MD documented in this encounterAden[facility]05-08-2024 Procedure note* Rosana Sanchez RPFT - 12/06/2023 8:51 AM EDTAssociated Order(s): SIX MINUTE WALK RESPIRATORY THERAPY SIX MINUTE WALK TEST OXIMETRY REPORT Six Minute Walk Test for This Encounter Oxygen Device Liters FIO2 SpO2% HR Activity Feet Speed (MPH) Flag R/A 97 74 Resting R/A 95 106 Six Minute Walk 1150 2.2 R/A 97 80 Recovery 1 minute post R/A 96 75 Recovery 2 minute post R/A 96 73 Recovery 3 minute post General Information Height Weight Pulse Oximetry Site Oximeter Pre Blood Pressure Post Blood Pressure Total Time Spent (min) 169.8 cm (5' 6.85) 80.7 kg (178 lb) L Index Finger Masimo 124/80 137/72 30 _ Distance Walked (meters) Distance Walked (feet) Male Predicted Walk Distance (feet) Male Lower Limit of Normal (feet) Male % Predicted Total Duration Of The Stops (seconds) 350.52 1150 1617.13 1115.13 71.1 -- _ Lowest SpO2 During 6 Minute Walk Pre-Zina Dyspnea Rating Pre-Zina Fatigue Rating Post Zina Dyspnea Rating Post Zina Fatigue Rating 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 . The patient required Room Air to complete the test. The distance the patient walked in six minutes is within the predicted normal range. This is the first time patient takes the six minute walk test. The patient perceived their dyspnea during the six minute walk test to be 0- Nothing at all on the modified Zina scale. The patient perceived their fatigue during the six minute walk test to be 1-Very slight on the modified Zina scale. I have reviewed the findings and made appropriate revisions as needed. SIGNATURE: Jazmyn Mas MD PATIENT NAME: Sharonda Flores DATE: December 06, 2023 TIME: 12:31 PM [facility]05-08-[facility] Procedure note* Rosana Sanchez RPFT - 12/06/2023 8:51 AM EDTAssociated Order(s): SIX MINUTE WALK RESPIRATORY THERAPY SIX MINUTE WALK TEST OXIMETRY REPORT Six Minute Walk Test for This Encounter Oxygen Device Liters FIO2 SpO2% HR Activity Feet Speed (MPH) Flag R/A 97 74 Resting R/A 95 106 Six Minute Walk 1150 2.2 R/A 97 80 Recovery 1 minute post R/A 96 75 Recovery 2 minute post R/A 96 73 Recovery 3 minute post General Information Height Weight Pulse Oximetry Site Oximeter Pre Blood Pressure Post Blood Pressure Total Time Spent (min) 169.8 cm (5' 6.85) 80.7 kg (178 lb) L Index Finger Masimo 124/80 137/72 30 _ Distance Walked (meters) Distance Walked (feet) Male Predicted Walk Distance (feet) Male Lower Limit of Normal (feet) Male % Predicted Total Duration Of The Stops (seconds) 350.52 1150 1617.13 1115.13 71.1 -- _ Lowest SpO2 During 6 Minute Walk Pre-Zina Dyspnea Rating Pre-Zina Fatigue Rating Post Zina Dyspnea Rating Post Zina Fatigue Rating 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 . The patient required Room Air to complete the test. The distance the patient walked in six minutes is within the predicted normal range. This is the first time patient takes the six minute walk test. The patient perceived their dyspnea during the six minute walk test to be 0- Nothing at all on the modified Zina scale. The patient perceived their fatigue during the six minute walk test to be 1-Very slight on the modified Zina scale. I have reviewed the findings and made appropriate revisions as needed. SIGNATURE: Jazmyn Mas MD PATIENT NAME: Sharonda Flores DATE: December 06, 2023 TIME: 12:31 PM [facility] History of Present illness Narrative* Rosana Sanchez RPFT - 12/06/2023 8:47 AM EDT PULM FUNCTION SMARTBLOCK: Provider: Charo Tsai APRN.DISASTER RECOVERY MANAGER Assisting Tech: Rosana Sanchez RPFT Spirometry: 1 DLCO: 1 LV - Box: 1 6 MW: 1 documented in this encounterA[facility]-2024 Instructions* Patient Instructions* Rosana Villafuerte APRN.DISASTER RECOVERY MANAGER - 11/29/2023 8:07 AM EDT PATIENT PREOPERATIVE INSTRUCTIONS Rene More MD has scheduled you for your procedure at this surgery center: [facility]: [phone] --[id number] [address]. Please check in on the1st floor at registration desk 6. Please read below carefully for your personalized instructions. Arrival Time for Surgery: - The Surgery Center or hospital where you are having surgery will call the afternoon before surgery (or Monday for Monday surgery) with a scheduled arrival time. - If you have not heard by 4 pm, please contact the surgery center above. Dietary Restrictions: - No solid food after midnight. - You may have 12 ounces of clear liquids (water, clear juices such as apple juice or gatorade, carbonated beverages, clear tea, black coffee, jello) until 2 hours before scheduled arrival at facility. - Do not drink any alcohol after midnight the night before your surgery. Medications: Pre-Surgery Med Instructions Medication Instructions atorvastatin (LIPITOR) 80 mg tablet Take the day of surgery with a small sip of water nitroglycerin sublingual (NITROQUICK) 0.4 mg SL tablet If needed Aspirin 81 mg Tab Take the day of surgery with a small sip of water carvedilol (COREG) 6.25 mg tablet Take the day of surgery with a small sip of water lisinopril (ZESTRIL) 5 mg tablet Do not take for 24 hours prior to surgery If you take any medications for erectile dysfunction-Cialis (Tadalafil), Levitra, Staxyn (Vardenafil) Viagra (Sildenenafil please do not take these for 48 hours before surgery. If you start any new medications after today's visit, please contact the surgeon's office. Blood Thinning Medications: - Stop NSAIDS (Ibuprofen, Advil, Aleve, Motrin, Celebrex, Mobic, etc.) 7 days before surgery, as directed by your surgeon. - Continue ASA - Stop Vitamin E, ALL multi-vitamins, herbals and dietary supplements 14 days before surgery. - You may take Tylenol (Acetaminophen) or any of your pain medications that do not contain aspirin or NSAIDS as needed. Important Reminders: - If you use CPAP/BIPAP, bring the machine with you to the surgery center. - If you are prescribed inhalers for breathing, continue using them. -Please be sure to brush your teeth and you can use mouth wash or rinse your mouth if dry. - Candy, mints, and tobacco products are NOT permitted the morning of surgery. - Hearing aids, dentures and glasses may be worn the morning of surgery. - NO jewelry, body piercings, makeup, hairpins or contacts are to be worn the day of surgery. If you develop symptoms such as a fever, cold, or flu, or have other changes to your health within TWO DAYS of scheduled surgery or the morning of surgery, please contact the surgery center above. Personal Belongings: -Please have photo ID and insurance cards. -If you do not have a copy of advance directives on file with us, please bring a copy with you on the day of surgery. - Leave ALL valuables and money at home or with family members. For Outpatient Procedures: - YOU MUST HAVE A RESPONSIBLE MELT HOUSE SUPERVISOR TAKE YOU HOME. A PEER SUPPORT SPECIALIST OR DERMATOLOGY NURSE CANNOT BE MADE A RESPONSIBLE MELT HOUSE SUPERVISOR. - We recommend that a responsible person stays with you overnight to take care of you. - You cannot stay in a hotel alone after outpatient surgery. You will not be permitted to have yoursurgery, if you do not have someone to take care of you. Please be aware that emergency situations arise, which may delay or change your surgical time. If this happens, we will notify you as soon as possible and regret any inconvenience. If you already have an Advance Directive, please fax a copy to [phone] or email to for it to be added to your chart. If you do not have an Advance Directive, you can find the appropriate form and more information at [email or web address]. We recommend that youcomplete the Advance Directive form found on the website and bring it with you the day of your surgery. It can be witnessed and scanned into your chart that day. Rosana Villafuerte APRN.CNP documented in this encounterA[facility] History and physical note * Rosana Villafuerte APRN.CNP - 11/29/2023 8:02 AM EDT HISTORY AND PHYSICAL EXAMINATION SERVICE DATE: 11/29/2023 SERVICE TIME: 8:28 AM PRIMARY CARE PHYSICIAN: Tima Tello MD Assessment Patient has the following medical conditions which may affect diana-operative course: MIXED HYPERLIPIDEMIA Assessment: Complaint on statin therapy. Encouraged lifestyle modifications. Body mass index is 29.79 kg/m . Essential hypertension Assessment: Stable, complaint on rx. Follows with PCP. Last 3 Encounter BP Readings: Date: BP: 11/29/2023 122/80 11/06/2023 110/82 07/11/2023 118/66 Coronary artery disease involving chilkoot coronary artery of chilkoot heart without angina pectoris Assessment: Denies any new or worsening cardiac symptoms. 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 last OV in 2022 per pt. Reports compliance to medication. Stents present, x4, placed in 2011. Recent cardiac testing. ECHO stress 2018: CONCLUSIONS SUMMARY: 1. Stress: The patient experienced no chest pain during stress. Functional capacity is good. 2. Stress ECG conclusions: No stress induced ECG changes suggestive of ischemia. 3. Stress echo: Left ventricular ejection fraction was normal at rest and with stress. There is no evidence for stress-induced ischemia. 4. Normal study after maximal exercise. Abdominal aortic aneurysm (AAA) without rupture (HCC) Assessment: monitored by PCP, last US Aorta 05/2023, stable Thrombocytopenia (HCC) Assessment: pending repeat cbc. Hemoglobin (g/dL) Date Value 06/09/2023 13.9 12/07/2020 15.7 Hematocrit (%) Date Value 06/09/2023 42.2 12/07/2020 48.3 WBC (k/uL) Date Value 06/09/2023 4.93 12/07/2020 4.68 Platelet Count (k/uL) Date Value 06/09/2023 116 12/07/2020 94 PERS HX PENICILLIN ALLERGY Assessment: PCN allergy listed, would benefit from further testing. Consult placed. At risk for sleep apnea Assessment: Elevated STOPBang score of 4. Recommended further sleep testing. Consult placed to sleep medicine. Reeves Activity Status Index: METS: Climb a flight of stairs or walk up a hill (5.50 METs) DASI Score: 5.5 Patient denies any chest pain or undue shortness of breath with the above physical activity. Clinical Frailty Scale: 3. Well, with treated comorbid disease STOP-Bang Score: Snores loudly Has or is being treated for high blood pressure Patient over 50 years old Male patient Denies feeling tired, fatigued, or sleepy during the daytime Has not been observed to stop breathing or choking/gasping during sleep BMI less than or equal to 35 kg/m^2 Does not have a large neck STOP-Bang Score: 4 ANESTHESIA FINDINGS: Intubation History: No history of difficult intubation. No abnormal airway history Significant Anesthesia Considerations: none Airway History: No history of difficult airway No abnormal airway history I - PHYSICAL EVALUATION AIRWAY Patient intubated: No. Tracheostomy tube not present Mallampati: III. TM distance: >3 FB. Neck ROM: full ROM without neurological symptoms. Mouth opening: adequate. Short neck: no. Thick neck: no Jackson present: no Microretrognathia/Micronagthia/Recessed Chin: No DENTAL Dental findings: teeth intact. II - ANESTHESIA PLAN Anesthetic plan additional comments: *PACC/TCI - anesthesia choice. Beta Aric Monitoring Plan Post Procedure Analgesic Plan Prepared for Surgery: optimally prepared for surgery, pending [see comment]. Lab, ekg ordered priorto procedure per per sx Sleep med and PCN testing consulted CONSULTS: Patient does not require consults for optimization at this time Planned Anesthetic: anesthesia choice The Following Tests/Procedures Have Been Initiated: Orders Placed This Encounter CONSULT TO SLEEP MEDICINE - ADULT Standing Status: Future Standing Expiration Date: 11/28/2024 Order Specific Question: Does consulting provider have [facility] Epic access? Answer: Yes CONSULT TO PENICILLIN ALLERGY Order Specific Question: Does consulting provider have [facility] Epic access? Answer: Yes ECG COMPLETE Order Comments: Ordered by an unspecified provider REASON FOR VISIT: Sharonda Flores is a 68 year old male who is scheduled for Procedure(s): FLEX BRONCHOSCOPY W/ NAVIGATIONAL IMAGE GUIDANCE (N/A) BRONCHOSCOPY FLEXIBLE WITH C-ARM (N/A) BRONCHOSCOPY,RIGID/FLEXIBLE W/ FLUORO,W/ENDOBRONCHIAL ULTRASOUND (EBUS) GUIDED TRANSTRACHEAL/ TRANSBRONCHIAL ASPIRATION/BIOPSY,1 OR 2 MEDIASTINAL AND/OR HILAR LYMPH NODE STATIONS/STRUCTURES (N/A) at the request of Rene Ramirez MD for consultation. My final recommendation will be communicated back to the requesting physician by way of shared medical record or letter. Subjective The patient has the following: ACTIVE PROBLEM LIST Personal History of Allergy to Penicillin Tobacco Use Disorder Sprain and Strain of Unspecified Site of Shoulder and Upper Arm Pain in Joint, Ankle and Foot Herpes Simplex Without Mention of Complication Mixed Hyperlipidemia Special Screening for Malignant Neoplasms, Colon Benign Neoplasm of Colon Coronary Artery Disease Involving [place] Coronary Artery of [place] Heart Without Angina Pectoris Essential Hypertension Thrombocytopenia (Hcc) Tinnitus of Both Ears Psoriasis Abdominal Aortic Aneurysm (Aaa) Without Rupture (Hcc) At Risk for Sleep Apnea COVID-19 Immunization Status Postponed - Covid-19 Vaccine () Postponed until 06/09/2024 06/09/2023 Postponed until 06/09/2024 by Tima Tello MD (Declined at this time) 11/23/2021 Postponed until 11/23/2022 by Tima Tello MD (Declined at this time) 12/18/2020 Imm Admin: COVID-19 original vaccine, age 12+ yr, monovalent ([employer] - PURPLE TOP) Only the first 3 history entries have been loaded, but more history exists. CHIEF COMPLAINT: pre op HPI: Patient is a 68 year old male presenting with multiple lung nodules. Noted on CT scan, denies any cough, SOB, weight loss. Former smoker. Patient denies other specific radiating, alleviating, oraggravating factors. REVIEW OF SYSTEMS: General: No weight loss, malaise or fevers. Neurological: Negative for: COREMAKER HELPER tumor, headaches, impaired sensorium, peripheral neuropathy, seizures, TIA and strokes. Respiratory: See HPI. Negative for: asthma, COPD, current cough, dyspnea, home oxygen, orthopnea, tobacco use, URI < 2weeks and obstructive sleep apnea. Cardiovascular: Denies dizziness or syncope. Positive for: abdominal aortic aneurysm, CAD, hyperlipidemia and hypertension Patient's last office visit The following tests and/or procedures were performed: cardiac stents. Negative for: AICD/PPM, angina, anticoagulation therapy, arrhythmia, atrial fibrillation, chest pain, CHF, congenital heart defect, DVT/PE, recent [place], murmur/valvular heart disease, PTCA, PVD, open heart surgery and valve surgery. GI: Negative for: abdominal pain, GERD, GI bleed <30 days, hepatitis, liver disease, nausea and vomiting. : Denies kidney disease Negative for: on dialysis, dysuria, frequent urination, hematuria, renal failure and urinary tract infection. Endocrine: Negative for: diabetes mellitus, hyperthyroidism and hypothyroidism. Hematology: Positive for: thrombocytopenia and chronic anti-coagulation/platelet meds. Patient is on anti-coagulation/platelet medication(s): Aspirin. Negative for: anemia, bruises/bleeds easily, factor V Leiden, hemophilia, von Willebrand disease and transfusion of at least 4 units within 72 hours prior to surgery. Oncology: No history of CA metastasis, chemo within 30 days, or radiotherapy within 90 days. No history of oncological symptoms or problems. Psych: No history of psychiatric symptoms or problems. Musculoskeletal: Negative for joint pain or swelling, back pain or muscle pain. Skin: Negative for lesions, rash and itching. PAST MEDICAL HISTORY Diagnosis Date Abdominal aortic aneurysm (AAA) without rupture (HCC) 3 x 3.1 cm 05/2021, repeat 1 year. Benign neoplasm of colon Coronary artery disease involving chilkoot coronary artery of chilkoot heart without angina pectoris Dr. Tineo Essential hypertension History of tobacco use Multiple lung nodules on CT 11/09/2023 PET scan ordered Psoriasis [facility] Thrombocytopenia (HCC) Tinnitus of both ears PAST SURGICAL HISTORY Procedure Laterality Date COLONOSCOPY FLX DX W/COLLJ SPEC WHEN PFRMD 10/08/2008 Colonoscopy COLONOSCOPY FLX DX W/COLLJ SPEC WHEN PFRMD 08/03/2021 repeat in 10 years EXTRACTION, ERUPTED TOOTH OR EXPOSED ROOT (ELEVATION AND/OR FORCEPS REMOVAL) wisdom HEART CATHETERIZATION 2011 stent x 4 HEART SURGERY HX PAST SURGICAL HISTORY OF age 6 appendectomy, no rupture PAST SURGICAL HISTORY OF Right 09/2021 cyst removal from chest wall TONSILLECTOMY HX TONSILLECTOMY PRIMARY/SECONDARY tonsillectomy FAMILY HISTORY Problem Relation Age of Onset Breast Cancer Mother Heart Father details uncertain; ? h/o rheumatic fever Stroke Father details uncertain No Known Problems Brother No Known Problems Daughter No Known Problems Daughter No Known Problems Son No Known Problems Son No Known Problems Maternal Grandmother No Known Problems Maternal Grandfather No Known Problems Paternal Grandmother No Known Problems Paternal Grandfather Diabetes Other none Colon Cancer Other none Prostate Cancer Other none Anesthesia Problems No Family History Social History Tobacco Use Smoking status: Former Packs/day: 1.50 Years: 25.00 Additional pack years: 0.00 Total pack years: 37.50 Types: Cigarettes Quit date: 01/24/2011 Years since quittin.8 Smokeless tobacco: Never Vaping Use Vaping Use: Never used Substance Use Topics Alcohol use: Not Currently Drug use: Yes Types: Marijuana Comment: Twice a month Prior to Admission medications as of 11/29/23 0811 Medication Sig Last Dose Taking atorvastatin (LIPITOR) 80 mg tablet Take 1 tablet by mouth daily at bedtime. For cholesterol. Taking Yes nitroglycerin sublingual (NITROQUICK) 0.4 mg SL tablet Dissolve 1 tablet under the tongue every 5 minutes as needed. Taking Yes Aspirin 81 mg Tab Take 81 mg by mouth once daily. Taking Yes carvedilol (COREG) 6.25 mg tablet Take 6.25 mg by mouth twice daily with meals. Taking Yes lisinopril (ZESTRIL) 5 mg tablet Take 5 mg by mouth once daily. Taking Yes ezetimibe (ZETIA) 10 mg tablet Take 1 tablet by mouth once daily. Patient not taking: Reported on 11/29/2023 Not Taking No medication comments found. ALLERGIES Allergen Reactions Penicillins Hives Objective PHYSICAL EXAM: General: alert and oriented and healthy appearance. Pertinent negatives noted - not distressed. Skin: normal color, no rash or lesions. HEENT: EOM intact, pupils equal round and pupils reactive to light. Pertinent negatives noted - no carotid bruit. Cardiovascular: regular rate and rhythm, normal S1 and S2, no rub, murmurs, or gallop. Respiratory: normal breath sounds, no wheezes or crackles. No chest wall deformity or tenderness. Abdomen: bowel sounds present and soft. Pertinent negatives noted - not tender. Extremities: no deformity, no edema or tenderness, no joint swelling or clubbing. Neurological: normal cognition and motor skills. Gait normal. No weakness or sensory deficit. PAIN ASSESSMENT: VITALS: BP 122/80 Pulse 69 Temp (Src) 97.4 (Temporal) Resp 14 Ht 5' 5 (1.65m) Wt 179 lb (81.2kg) SpO2 97% BMI 29.79 kg/(m^2). Diagnostic tests reviewed for today's visit: Lab Value Units Date High Low HB 13.9 g/dL 06/09/2023 17.0 13.0 HCT 42.2 % 06/09/2023 51.0 39.0 WBC 4.93 k/uL 06/09/2023 11.00 3.70 PLT 116 k/uL 06/09/2023 400 150 NA 141 mmol/L 06/09/2023 144 136 K 4.4 mmol/L 06/09/2023 5.1 3.7 GLUC 99 mg/dL 06/09/2023 99 74 BUN 16 mg/dL 06/09/2023 24 9 CREAT 0.99 mg/dL 06/09/2023 1.22 0.73 PTSEC No results within date range. INR No results within date range. APTT No results within date range. ALT 19 U/L 06/09/2023 54 10 AST 18 U/L 06/09/2023 40 14 TBILI 0.3 mg/dL 06/09/2023 1.3 0.2 TSH No results within date range. Lab Value Units Date High Low HCGQT No results within date range. UHCG No results within date range. HCG, BODY* No results within date range. Lab Value Units Date High Low ABORHD No results within date range. ABSCREEN No results within date range. No results found for: HBA1C Recent Results (from the past 8760 hour(s)) ECG COMPLETE Collection Time: 11/29/23 8:13 AM Result Value Ventricular Rate 65 Atrial Rate 65 P-R Interval 152 QRS Duration 78 QT Interval 396 QTC Calculation (Bazett) 411 Calculated P [place] 44 Calculated R [place] 17 Calculated T [place] 18 Impression NORMAL SINUS RHYTHM NORMAL ECG No results found for this or any previous visit (from the past 84178 hour(s)). Instructions Given to Patient: Instructions located in the after visit summary. Patient given verbal and written preop instructions and voices comprehension and compliance. SIGNATURE: Rosana Villafuerte APRN.CNP PATIENT NAME: Sharonda Flores DATE: November 29, 2023 TIME: 8:02 AM PAGER[facility]CONTACT #: [facility]-01-[facility] History and physical note* Rosana Villafuerte APRN.CNP - 11/29/2023 8:02 AM EDT HISTORY AND PHYSICAL EXAMINATION SERVICE DATE: 11/29/2023 SERVICE TIME: 8:28 AM PRIMARY CARE PHYSICIAN: Tima Tello MD Assessment Patient has the following medical conditions which may affect diana-operative course: MIXED HYPERLIPIDEMIA Assessment: Complaint on statin therapy. Encouraged lifestyle modifications. Body mass index is 29.79 kg/m . Essential hypertension Assessment: Stable, complaint on rx. Follows with PCP. Last 3 Encounter BP Readings: Date: BP: 11/29/2023 122/80 11/06/2023 110/82 07/11/2023 118/66 Coronary artery disease involving chilkoot coronary artery of chilkoot heart without angina pectoris Assessment: Denies any new or worsening cardiac symptoms. 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 Noman Vásquez, last OV in 2023 per pt. Reports compliance to medication. Stents present, x4, placed in 2011. Recent cardiac testing. ECHO stress 2018: CONCLUSIONS SUMMARY: 1. Stress: The patient experienced no chest pain during stress. Functional capacity is good. 2. Stress ECG conclusions: No stress induced ECG changes suggestive of ischemia. 3. Stress echo: Left ventricular ejection fraction was normal at rest and with stress. There is no evidence for stress-induced ischemia. 4. Normal study after maximal exercise. Abdominal aortic aneurysm (AAA) without rupture (HCC) Assessment: monitored by PCP, last US Aorta 05/2023, stable Thrombocytopenia (HCC) Assessment: pending repeat cbc. Hemoglobin (g/dL) Date Value 06/09/2023 13.9 12/07/2020 15.7 Hematocrit (%) Date Value 06/09/2023 42.2 12/07/2020 48.3 WBC (k/uL) Date Value 06/09/2023 4.93 12/07/2020 4.68 Platelet Count (k/uL) Date Value 06/09/2023 116 12/07/2020 94 PERS HX PENICILLIN ALLERGY Assessment: PCN allergy listed, would benefit from further testing. Consult placed. At risk for sleep apnea Assessment: Elevated STOPBang score of 4. Recommended further sleep testing. Consult placed to sleep medicine. Reeves Activity Status Index: METS: Climb a flight of stairs or walk up a hill (5.50 METs) DASI Score: 5.5 Patient denies any chest pain or undue shortness of breath with the above physical activity. Clinical Frailty Scale: 3. Well, with treated comorbid disease STOP-Bang Score: Snores loudly Has or is being treated for high blood pressure Patient over 50 years old Male patient Denies feeling tired, fatigued, or sleepy during the daytime Has not been observed to stop breathing or choking/gasping during sleep BMI less than or equal to 35 kg/m^2 Does not have a large neck STOP-Bang Score: 4 ANESTHESIA FINDINGS: Intubation History: No history of difficult intubation. No abnormal airway history Significant Anesthesia Considerations: none Airway History: No history of difficult airway No abnormal airway history I - PHYSICAL EVALUATION AIRWAY Patient intubated: No. Tracheostomy tube not present Mallampati: III. TM distance: >3 FB. Neck ROM: full ROM without neurological symptoms. Mouth opening: adequate. Short neck: no. Thick neck: no Jackson present: no Microretrognathia/Micronagthia/Recessed Chin: No DENTAL Dental findings: teeth intact. II - ANESTHESIA PLAN Anesthetic plan additional comments: *PACC/TCI - anesthesia choice. Beta Aric Monitoring Plan Post Procedure Analgesic Plan Prepared for Surgery: optimally prepared for surgery, pending [see comment]. Lab, ekg ordered priorto procedure per per sx Sleep med and PCN testing consulted CONSULTS: Patient does not require consults for optimization at this time Planned Anesthetic: anesthesia choice The Following Tests/Procedures Have Been Initiated: Orders Placed This Encounter CONSULT TO SLEEP MEDICINE - ADULT Standing Status: Future Standing Expiration Date: 11/28/2024 Order Specific Question: Does consulting provider have [facility] Epic access? Answer: Yes CONSULT TO PENICILLIN ALLERGY Order Specific Question: Does consulting provider have [facility] Epic access? Answer: Yes ECG COMPLETE Order Comments: Ordered by an unspecified provider REASON FOR VISIT: Sharonda Flores is a 68 year old male who is scheduled for Procedure(s): FLEX BRONCHOSCOPY W/ NAVIGATIONAL IMAGE GUIDANCE (N/A) BRONCHOSCOPY FLEXIBLE WITH C-ARM (N/A) BRONCHOSCOPY,RIGID/FLEXIBLE W/ FLUORO,W/ENDOBRONCHIAL ULTRASOUND (EBUS) GUIDED TRANSTRACHEAL/ TRANSBRONCHIAL ASPIRATION/BIOPSY,1 OR 2 MEDIASTINAL AND/OR HILAR LYMPH NODE STATIONS/STRUCTURES (N/A) at the request of Rene Ramirez MD for consultation. My final recommendation will be communicated back to the requesting physician by way of shared medical record or letter. Subjective The patient has the following: ACTIVE PROBLEM LIST Personal History of Allergy to Penicillin Tobacco Use Disorder Sprain and Strain of Unspecified Site of Shoulder and Upper Arm Pain in Joint, Ankle and Foot Herpes Simplex Without Mention of Complication Mixed Hyperlipidemia Special Screening for Malignant Neoplasms, Colon Benign Neoplasm of Colon Coronary Artery Disease Involving [place] Coronary Artery of [place] Heart Without Angina Pectoris Essential Hypertension Thrombocytopenia (Hcc) Tinnitus of Both Ears Psoriasis Abdominal Aortic Aneurysm (Aaa) Without Rupture (Hcc) At Risk for Sleep Apnea COVID-19 Immunization Status Postponed - Covid-19 Vaccine ( season) Postponed until 06/09/2024 06/09/2023 Postponed until 06/09/2024 by Tima Tello MD (Declined at this time) 11/23/2021 Postponed until 11/23/2022 by Tima Tello MD (Declined at this time) 12/18/2020 Imm Admin: COVID-19 original vaccine, age 12+ yr, monovalent ([employer] - PURPLE TOP) Only the first 3 history entries have been loaded, but more history exists. CHIEF COMPLAINT: pre op HPI: Patient is a 68 year old male presenting with multiple lung nodules. Noted on CT scan, denies any cough, SOB, weight loss. Former smoker. Patient denies other specific radiating, alleviating, oraggravating factors. REVIEW OF SYSTEMS: General: No weight loss, malaise or fevers. Neurological: Negative for: COREMAKER HELPER tumor, headaches, impaired sensorium, peripheral neuropathy, seizures, TIA and strokes. Respiratory: See HPI. Negative for: asthma, COPD, current cough, dyspnea, home oxygen, orthopnea, tobacco use, URI < 2weeks and obstructive sleep apnea. Cardiovascular: Denies dizziness or syncope. Positive for: abdominal aortic aneurysm, CAD, hyperlipidemia and hypertension Patient's last office visit The following tests and/or procedures were performed: cardiac stents. Negative for: AICD/PPM, angina, anticoagulation therapy, arrhythmia, atrial fibrillation, chest pain, CHF, congenital heart defect, DVT/PE, recent [place], murmur/valvular heart disease, PTCA, PVD, open heart surgery and valve surgery. GI: Negative for: abdominal pain, GERD, GI bleed <30 days, hepatitis, liver disease, nausea and vomiting. : Denies kidney disease Negative for: on dialysis, dysuria, frequent urination, hematuria, renal failure and urinary tract infection. Endocrine: Negative for: diabetes mellitus, hyperthyroidism and hypothyroidism. Hematology: Positive for: thrombocytopenia and chronic anti-coagulation/platelet meds. Patient is on anti-coagulation/platelet medication(s): Aspirin. Negative for: anemia, bruises/bleeds easily, factor V Leiden, hemophilia, von Willebrand disease and transfusion of at least 4 units within 72 hours prior to surgery. Oncology: No history of CA metastasis, chemo within 30 days, or radiotherapy within 90 days. No history of oncological symptoms or problems. Psych: No history of psychiatric symptoms or problems. Musculoskeletal: Negative for joint pain or swelling, back pain or muscle pain. Skin: Negative for lesions, rash and itching. PAST MEDICAL HISTORY Diagnosis Date Abdominal aortic aneurysm (AAA) without rupture (HCC) 3 x 3.1 cm 05/2021, repeat 1 year. Benign neoplasm of colon Coronary artery disease involving chilkoot coronary artery of chilkoot heart without angina pectoris Dr. Tineo Essential hypertension History of tobacco use Multiple lung nodules on CT 11/09/2023 PET scan ordered Psoriasis [facility] Thrombocytopenia (HCC) Tinnitus of both ears PAST SURGICAL HISTORY Procedure Laterality Date COLONOSCOPY FLX DX W/COLLJ SPEC WHEN PFRMD 10/08/2008 Colonoscopy COLONOSCOPY FLX DX W/COLLJ SPEC WHEN PFRMD 08/03/2021 repeat in 10 years EXTRACTION, ERUPTED TOOTH OR EXPOSED ROOT (ELEVATION AND/OR FORCEPS REMOVAL) wisdom HEART CATHETERIZATION 2012 stent x 4 HEART SURGERY HX PAST SURGICAL HISTORY OF age 6 appendectomy, no rupture PAST SURGICAL HISTORY OF Right 09/2021 cyst removal from chest wall TONSILLECTOMY HX TONSILLECTOMY PRIMARY/SECONDARY <AGE 12 tonsillectomy FAMILY HISTORY Problem Relation Age of Onset Breast Cancer Mother Heart Father details uncertain; ? h/o rheumatic fever Stroke Father details uncertain No Known Problems Brother No Known Problems Daughter No Known Problems Daughter No Known Problems Son No Known Problems Son No Known Problems Maternal Grandmother No Known Problems Maternal Grandfather No Known Problems Paternal Grandmother No Known Problems Paternal Grandfather Diabetes Other none Colon Cancer Other none Prostate Cancer Other none Anesthesia Problems No Family History Social History Tobacco Use Smoking status: Former Packs/day: 1.50 Years: 25.00 Additional pack years: 0.00 Total pack years: 37.50 Types: Cigarettes Quit date: 01/24/2011 Years since quittin.8 Smokeless tobacco: Never Vaping Use Vaping Use: Never used Substance Use Topics Alcohol use: Not Currently Drug use: Yes Types: Marijuana Comment: Twice a month Prior to Admission medications as of 11/29/23 0811 Medication Sig Last Dose Taking atorvastatin (LIPITOR) 80 mg tablet Take 1 tablet by mouth daily at bedtime. For cholesterol. Taking Yes nitroglycerin sublingual (NITROQUICK) 0.4 mg SL tablet Dissolve 1 tablet under the tongue every 5 minutes as needed. Taking Yes Aspirin 81 mg Tab Take 81 mg by mouth once daily. Taking Yes carvedilol (COREG) 6.25 mg tablet Take 6.25 mg by mouth twice daily with meals. Taking Yes lisinopril (ZESTRIL) 5 mg tablet Take 5 mg by mouth once daily. Taking Yes ezetimibe (ZETIA) 10 mg tablet Take 1 tablet by mouth once daily. Patient not taking: Reported on 11/29/2023 Not Taking No medication comments found. ALLERGIES Allergen Reactions Penicillins Hives Objective PHYSICAL EXAM: General: alert and oriented and healthy appearance. Pertinent negatives noted - not distressed. Skin: normal color, no rash or lesions. HEENT: EOM intact, pupils equal round and pupils reactive to light. Pertinent negatives noted - no carotid bruit. Cardiovascular: regular rate and rhythm, normal S1 and S2, no rub, murmurs, or gallop. Respiratory: normal breath sounds, no wheezes or crackles. No chest wall deformity or tenderness. Abdomen: bowel sounds present and soft. Pertinent negatives noted - not tender. Extremities: no deformity, no edema or tenderness, no joint swelling or clubbing. Neurological: normal cognition and motor skills. Gait normal. No weakness or sensory deficit. PAIN ASSESSMENT: VITALS: BP 122/80 Pulse 69 Temp (Src) 97.4 (Temporal) Resp 14 Ht 5' 5 (1.65m) Wt 179 lb (81.2kg) SpO2 97% BMI 29.79 kg/(m^2). Diagnostic tests reviewed for today's visit: Lab Value Units Date High Low HB 13.9 g/dL 06/09/2023 17.0 13.0 HCT 42.2 % 06/09/2023 51.0 39.0 WBC 4.93 k/uL 06/09/2023 11.00 3.70 PLT 116 k/uL 06/09/2023 400 150 NA 141 mmol/L 06/09/2023 144 136 K 4.4 mmol/L 06/09/2023 5.1 3.7 GLUC 99 mg/dL 06/09/2023 99 74 BUN 16 mg/dL 06/09/2023 24 9 CREAT 0.99 mg/dL 06/09/2023 1.22 0.73 PTSEC No results within date range. INR No results within date range. APTT No results within date range. ALT 19 U/L 06/09/2023 54 10 AST 18 U/L 06/09/2023 40 14 TBILI 0.3 mg/dL 06/09/2023 1.3 0.2 TSH No results within date range. Lab Value Units Date High Low HCGQT No results within date range. UHCG No results within date range. HCG, BODY* No results within date range. Lab Value Units Date High Low ABORHD No results within date range. ABSCREEN No results within date range. No results found for: HBA1C Recent Results (from the past 8760 hour(s)) ECG COMPLETE Collection Time: 11/29/23 8:13 AM Result Value Ventricular Rate 65 Atrial Rate 65 P-R Interval 152 QRS Duration 78 QT Interval 396 QTC Calculation (Bazett) 411 Calculated P [place] 44 Calculated R [place] 17 Calculated T [place] 18 Impression NORMAL SINUS RHYTHM NORMAL ECG No results found for this or any previous visit (from the past 45151 hour(s)). Instructions Given to Patient: Instructions located in the after visit summary. Patient given verbal and written preop instructions and voices comprehension and compliance. SIGNATURE: Rosana Villafuerte APRN.CNP PATIENT NAME: Sharonda Flores DATE: November 29, 2023 TIME: 8:02 AM PAGER/CONTACT #: documented in this encounterAden[facility]04-26-[facility]24 Telephone encounter Note * Telephone Encounter - Marilee Pride MA - 11/24/2023 1:08 PM EDT Order for PET scan, CT scan results and OV notes faxed to number provided. [facility]04-26-2024 Miscellaneous Notes* Telephone Encounter - Marilee Pride MA - 11/24/2023 1:08 PM EDT Order for PET scan, CT scan results and OV notes faxed to number provided. * Telephone Encounter - Brianna Valdez - 11/24/2023 12:05 PM EDT Serenity mercer [facility] is calling requesting a new order for the PET scan she states there is no DX code on current order and they also need office notes, and they also need the CT report .Please fax to [phone]. Patient is scheduled for Monday11/28/23 need these RAQUEL documented in this encounterAdena [facility]04-26-2024 Telephone encounter Note * Telephone Encounter - Brianna Valdez - 11/24/2023 12:05 PM EDT Serenity from [facility] is calling requesting a new order for the PET scan she states there is no DX code on current order and they also need office notes, and they also need the CT report .Please fax to [phone]. Patient is scheduled for Monday11/28/23 need these RAQUEL [facility]04-22-2024 Telephone encounter Note* Telephone Encounter - Charo Tsai APRN.CNP - 11/20/2023 4:13 PM EDT Per scheduling Brianna ORDONEZ patient declined to schedule PET at [place], and requested to [facility]. The order has been faxed and I left the patient a message to call us when they get scheduled so we can get the results as they will not notify us when he is scheduled or when the results are available. Charo Tsai APRN.CNP [facility] Work Phone: [phone]) 558-236404-22-2024 Miscellaneous Notes* Telephone Encounter - Charo Tsai APRN.CNP - 11/20/2023 4:13 PM EDT Per scheduling Brianna ORDONEZ patient declined to schedule PET at [place], and requested to [facility]. The order has been faxed and I left the patient a message to call us when they get scheduled so we can get the results as they will not notify us when he is scheduled or when the results are available. Charo Tsai APRN.RENEE documented in this encounterAdena [facility] Center04-22-2024 NoteHNO ID: [id number] Author: ?, ?, ? Service: ? Author Type: ? Type: Progress Notes Filed: 11/20/2023 10:12 Note Text: Called, lm on Ask of patient was to ensure VV will work When set up visit/ set up myChart walk through process of CHIQUIS, opening CHIQUIS, and doing the tourial Asked that he call if to ensure visit would would No return call was r/c Follow up call was placed to see if VV will work for patient. Lm on to have patient call in to [facility] upP[id number] NoteHNO ID: [id number] Author: ?, ?, ? Service: ? Author Type: ? Type: Progress Notes Filed: 11/14/2023 14:06 Note Text: Called, and reviewed with patient: Bronchoscopy Request: Please schedule patient for the following: Bronchoscopy Procedures: Galaxy Robot Pre-Procedure visit required: Yes- VV scheduled Visit type: HANDP w/Established Patient Anticipated Procedure Date: Physician Performing Bronchoscopy: Dr. More Needs Labs: Yes, CBC and BMP - scheduled 12/07 Needs EKG: Yes-12/[address]: Yes [facility] Bronchoscopy Protocol Chest CT-12/12 Does the pt need cardiac clearance? No Is he/she on anticoagulants/anti-plt therapy? No Diagnosis/Reason for Bronchoscopy: Growing RUL nodule Referred by: Quin Reviewed by: [facility]04-16-2024 Miscellaneous Notes* Telephone Encounter - Vianney Gruber - 11/14/2023 3:13 PM EDT First attempt at contacting patient, left to schedule * Telephone Encounter - Vianney Gruber - 11/14/2023 3:13 PM EDT Images from the original note were not included. Charo Tsai APRN.DISASTER RECOVERY MANAGER [facility] [place] Scheduling Please schedule tests per location. PET at [place]. PFT and 6 minute walk at [place] location. Thank you Charo documented in this encounterAdena [facility]04-15-2024 NoteHNO ID: [id number] Author: RENE MORE MD Service: ? Author Type: Physician Type: Progress Notes Filed: 11/13/2023 21:52 Note Text: Bronchoscopy Request: Please schedule patient for the following: Bronchoscopy Procedures: Galaxy Robot Pre-Procedure visit required: Yes Visit type: HANDP w/Established Patient Anticipated Procedure Date: Physician Performing Bronchoscopy: Dr. More Needs Labs: Yes, CBC and BMP Needs EKG: Yes Needs CT: Yes [facility] Bronchoscopy Protocol Chest CT Does the pt need cardiac clearance? No Is he/she on anticoagulants/anti-plt therapy? No Diagnosis/Reason for Bronchoscopy: Growing RUL nodule Referred by: Quin Reviewed by: KIMBER More MD November 13, 2023 9:48 [facility]04-15-2024 NoteHNO ID: [id number] Author: RENE MORE MD Service: ? Author Type: Physician Type: Progress Notes Filed: 11/13/2023 21:46 Note Text: Dear Charo, Thank you for this interesting e-consult. I personally reviewed the imaging studies and the chart notes. This is going to be a VERY difficult case. The nodule is central, and it abuts the fissure, and if you look at the airway, it comes off almost at a 90 degree angle from the segmental airway, and that airway is very small. I can take a stab at it, but there are factors associated with this that really drive up the likelihood of cancer, so even if non-diagnostic, I might still send to surgery or SBRT. These factors include: growing size, spiculation, and the biggest of all is the retraction of the fissure. I have submitted this note to our bronchoscopy scheduling team. My next available at is mid-November. Thank you again. Omer More MD 11/13/2023 9:35 [facility]04-15-2024 History of Present illness Narrative* Rene More MD - 11/13/2023 9:48 PM EDT Bronchoscopy Request: Please schedule patient for the following: Bronchoscopy Procedures: Galaxy Robot Pre-Procedure visit required: Yes Visit type: H&P w/Established Patient Anticipated Procedure Date: Physician Performing Bronchoscopy: Dr. More Needs Labs: Yes, CBC and BMP Needs EKG: Yes Needs CT: Yes EMN Bronchoscopy Protocol Chest CT Does the pt need cardiac clearance? No Is he/she on anticoagulants/anti-plt therapy? No Diagnosis/Reason for Bronchoscopy: Growing RUL nodule Referred by: Quin Reviewed by: KIMBER More MD November 13, 2023 9:48 PM documented in this encounterAdena [facility]04-15-2024 History of Present illness Narrative* Rene More MD - 11/13/2023 9:35 PM EDT Dear Charo, Thank you for this interesting e-consult. I personally reviewed the imaging studies and the chart notes. This is going to be a VERY difficultcase. The nodule is central, and it abuts the fissure, and if you look at the airway, it comes off almost at a 90 degree angle from the segmental airway, and that airway is very small. I can take a stab at it, but there are factors associated with this that really drive up the likelihood of cancer,so even if non-diagnostic, I might still send to surgery or SBRT. These factors include: growing size, spiculation, and the biggest of all is the retraction of the fissure. I have submitted this note to our bronchoscopy scheduling team. My next available at is mid-November. Thank you again. Omer More MD 11/13/2023 9:35 PM documented in this encounterAdena [facility] Center04-12-2024 Miscellaneous Notes* Telephone Encounter - Charo Tsai APRN.CNP - 11/10/2023 5:08 PM EDT Patient updated on plan of care for PET-pt prefers [place] location, PFT can be done at [place] location, and robotic bronchoscopy patient prefers at [place] location if possible. Charo Tsai APRN.CNP * Telephone Encounter - Charo Tsai APRN.CNP - 11/10/2023 12:36 PM EDT Left message for pt to call back regarding results. * Telephone Encounter - Charo Tsai APRN.CNP - 11/08/2023 5:22 PM EDT Left message for pt to call back regarding results. LDCT Lung Screen Results LungRADS category: 4B Incidentals: coronary artery calcifications-pt has coronary stents Recommendations: PET, PFT and robotic bronchoscopy Charo Tsai APRN.CNP November 08, 2023 5:22 PM documented in this encounterAdena [facility] Center04-08-2024 Instructions* Patient Instructions* Charo Tsai APRN.CNP - 11/06/2023 3:36 PM EDT The right upper lobe lung nodule we were following up on has increased in size in 3 months. Pendingfinal radiology report, the plan of care is for PET scan. Consider biopsy options. I will contact you after the final report is available and review with the Lung Cancer Screening team. Thank you Charo Tsai CNP documented in this encounterAdena Regional Medical Center04-08-2024 History of Present illness Narrative* Charo TsaiSESAR.DISASTER RECOVERY MANAGER - 11/06/2023 8:30 AM EDT Images from the original note were not included. Chief Complaint: 3 mos follow-up from LDCT scan dated 08/03/2023 for LUNG RADS Category 4AS finding of 7.7 mm solid nodule with ground-glass opacity along th lateral margin. S finding: Severe coronary calcifications with stents. History of Present Illness: Sharonda Flores is a 68 year old male who is presenting today for pulmonary nodule follow-up. Nodule was found through lung cancer screening on LDCT. Patient has a PMH significant for HTN, HLD, CAD with stents, and thrombocytopenia. Patient is a former smoker with a 58.5 pack year history. Patient quit smoking 12 years ago. Since the patient's last visit the patient has not had new medical issues or hospitalizations. No recent respiratory infections/pneumonia. 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. [place] 2011, cardiac arrest x 4. x4 stents. The patient does not require assistance with normal activities of daily living. Modified Medical Research [place] Dyspnea Scale (MMRC) I only get breathless with strenous exercise 0 Patient denies SOB with their daily activity. No wheezing or dyspnea. Patient denies feeling of chest tightness/congestion in the chest. Patient does not have a new or concerning cough, and denies hemoptysis. Patient does not have a chronic daily cough. Denies regular or recent fevers/chills. Patient does not have any significant unintentional weight loss. Patient denies having any respiratory infections or COVID-19 in the past few months. Last 12 Encounter Wt Readings: Date: Wt: 07/11/2023 78.4 kg (172 lb 12.8 oz) 06/09/2023 77.4 kg (170 lb 9.6 oz) 12/02/2022 75.8 kg (167 lb) 11/23/2021 81.8 kg (180 lb 6.4 oz) 08/10/2021 77.8 kg (171 lb 9.6 oz) 08/03/2021 76.2 kg (167 lb 15.9 oz) 06/15/2021 76.2 kg (168 lb) 05/07/2021 71.7 kg (158 lb) 05/05/2021 71 kg (156 lb 9.6 oz) 01/07/2019 68.9 kg (152 lb) 04/02/2018 66 kg (145 lb 6.4 oz) 08/20/2017 69.9 kg (154 lb 3.2 oz) Past Medical History: PAST MEDICAL HISTORY Diagnosis Date Abdominal aortic aneurysm (AAA) without rupture (HCC) 3 x 3.1 cm 05/2021, repeat 1 year. Benign neoplasm of colon Coronary artery disease involving chilkoot coronary artery of chilkoot heart without angina pectoris Dr. Tineo Essential hypertension History of tobacco use Psoriasis [facility] Thrombocytopenia (HCC) Tinnitus of both ears Surgical Hx: PAST SURGICAL HISTORY Procedure Laterality Date COLONOSCOPY FLX DX W/COLLJ SPEC WHEN PFRMD 10/08/2008 Colonoscopy COLONOSCOPY FLX DX W/COLLJ SPEC WHEN PFRMD 08/03/2021 repeat in 10 years EXTRACTION, ERUPTED TOOTH OR EXPOSED ROOT (ELEVATION AND/OR FORCEPS REMOVAL) wisdom HEART CATHETERIZATION 2012 stent x 4 HEART SURGERY HX PAST SURGICAL HISTORY OF age 6 appendectomy, no rupture PAST SURGICAL HISTORY OF Right 09/2021 cyst removal from chest wall TONSILLECTOMY HX TONSILLECTOMY PRIMARY/SECONDARY <AGE 12 tonsillectomy Family Hx: FAMILY HISTORY Problem Relation Age of Onset Breast Cancer Mother Heart Father details uncertain; ? h/o rheumatic fever Stroke Father details uncertain No Known Problems Brother No Known Problems Maternal Grandmother No Known Problems Maternal Grandfather No Known Problems Paternal Grandmother No Known Problems Paternal Grandfather Diabetes Other none Colon Cancer Other none Prostate Cancer Other none No Known Problems Son No Known Problems Son No Known Problems Daughter No Known Problems Daughter Allergies: ALLERGIES Allergen Reactions Penicillins Hives Social History Tobacco Use: 1.5 packs/day, for 25 years. Quit 01/24/2011. Types: Cigarettes Review Of Systems: See HPI for ROS All of the remainder systems were reviewed and negative. PHYSICAL EXAMINATION: BP 110/82 Pulse 74 Resp 16 Ht 5' 6 (1.68m) Wt 176 lb 6.4 oz (80.0kg) SpO2 96% BMI 28.49 kg/(m^2). General appearance: well appearing, in no acute distress, and alert Skin: skin color, texture, turgor normal, no rashes or lesions Nose/Sinuses: Negative Oropharynx: Lips, mucosa, and tongue normal, teeth and gums normal, oropharynx normal Neck: Supple, no adenopathy; thyroid symmetric, normal size Respiratory: lungs clear to auscultation no wheezing or rhonchi Cardiovascular: Negative. RRR without murmur, gallop, or rubs. No ectopy Musculoskeletal: Extremities normal. No deformities, edema, or skin discoloration. Neuro: Oriented X 3 Data Review I have visually reviewed imaging and testing below CT imaging done today was reviewed independently by practitioner and awaiting radiology review. CT was compared to prior CT chest. stable RUL nodule stable RUL nodule RUL nodule is increasing in size Prior PFTS: No textual results found for the specified procedure(s). Assessment and Plan: 1. Pulmonary Nodule: 7 mm solid RUL lung nodule with ground-glass opacity identified on the last CT08/03/2023 is increasing in size, approximately 8 mm. NM PET scan recommended if radiology report is consistent with 8 mm in size. This recommendation is subject to change, pending final radiology report. The patient was counseled on the importance of adherence to LDCT lung cancer screening clinic, impact of comorbidities and ability or willingness to undergo diagnosis and treatment. - SPIROMETRY WITH DILATOR IF OBSTRUCTED; Future - SIX MINUTE WALK ; Future - LUNG VOLUMES; Future - LUNG DIFFUSION CAPACITY (DLCO); Future - NM PET/CT SKULL-THIGH INITIAL; Future 2. Former tobacco use: Continue to abstain from smoking. Charo Tsai APRN.CNP November 06, 2023 I spent a total of 30 minutes on the date of the service which included preparing to see the patient, [id number] patient care, completing clinical documentation, performing a medically appropriate examination, counseling and educating the patient/family/caregiver, ordering medications, tests, or p rocedures, communicating with other HCPs (not separately reported), independently interpreting results (not separately reported), communicating results to the patient/family/caregiver, and care coordination (not separately reported). documented in this encounterAdena [facility] Medical Center04-08-2024 History of Present illness Narrative* Kya Ramirez RT(R) - 11/06/2023 8:00 AM EDT Radiology Service Progress Note PATIENT NAME: Sharonda Flores DATE OF SERVICE: November 06, 2023 TIME: 3:31 PM PATIENT IDENTITY VERIFICATION COMPLETED USING TWO (2) IDENTIFIERS: Name and Date of confirmedby patient verbally. FALL SCREENING: Has the patient had 2 falls in the last year or 1 fall with injury or currently using an Ambulatory Assistive Device (Walker, Cane, Wheelchair, Crutches, etc.)? No PATIENT GENDER DATA: Male PATIENT RELEVANT IMPLANT DATA REVIEWED: Yes PATIENT PRESENTS WITH AN IMPLANTABLE OR ATTACHED FIREFIGHTER: No RADIOLOGY DEPARTMENT: CT; Exam(s) Completed: Chest PERIPHERAL IV DATA: Not applicable SIGNED BY: RT Lashawn(R) November 06, 2023 3:31 PM documented in this encounterAdena Regional Medical Center11-14-2023 Miscellaneous Notes* Telephone Encounter - Alma Linares RN - 06/13/2023 4:55 PM EST Pt notified of new prescription and of need for repeat labs in 3 mons and to try a low cholesterol diet. * Telephone Encounter - Tima Tello MD - 06/13/2023 4:08 PM EST Add on zetia to current regimen to try to bring cholesterol down. Work on low cholesterol diet. Recheck labs in 3 months. * Telephone Encounter - Svetlana Downing LPN - 06/13/2023 2:38 PM EST Patient returned call, given below results. Sharonda is taking Atorvastatin every night. Svetlana Downing LPN * Telephone Encounter - Ramona Jimenez Ma - 06/13/2023 11:26 AM EST See both messages below. * Telephone Encounter - Ramona Jimenez Ma - 06/13/2023 11:26 AM EST ----- Message from Tima Tello MD sent at 06/13/2023 10:13 AM EST ----- Stable low platelets which remain above 100,000. Low risk for bleeding. Will monitor. Cholesterol level is high compared to 3 years ago. Had he been taking Lipitor consistently 2-3 months prior to blood draw? * Telephone Encounter - Ramona Jimenez Ma - 06/13/2023 9:52 AM EST Message left for pt to call back for results. Ramona Jimenez MA * Telephone Encounter - Ramona Jimenez Ma - 06/13/2023 9:49 AM EST ----- Message from Tima Tello MD sent at 06/13/2023 9:34 AM EST ----- Minimal increase in diameter of abdominal aortic aneurysm. Recommend edith Carias in 1 year to monitor. documented in this encounterAdena Regional Medical Center11-14-2023 History of Present illness Narrative* Trisha Emanuel RDMS - 06/13/2023 7:45 AM EST Radiology Service Progress Note PATIENT NAME: Sharonda Flores DATE OF SERVICE: June 13, 2023 TIME: 9:32 AM PATIENT IDENTITY VERIFICATION COMPLETED USING TWO (2) IDENTIFIERS: Name and Date of confirmedby patient verbally. FALL SCREENING: Has the patient had 2 falls in the last year or 1 fall with injury or currently using an Ambulatory Assistive Device (Walker, Cane, Wheelchair, Crutches, etc.)? No PATIENT GENDER DATA: Male PATIENT RELEVANT IMPLANT DATA REVIEWED: Not Applicable RADIOLOGY DEPARTMENT: Ultrasound PERIPHERAL IV DATA: Not applicable SIGNED BY: Trisha Emanuel RDMS RVT June 13, 2023 9:32 AM documented in this [facility] Telephone encounter Note * Telephone Encounter - Enrique Rogers MD - 12/03/2022 3:30 PM EDT Filled his meds, lisinopril and atorvastatin PGY5, Cardiovascular Fellow at 3:32 PM Pager: [phone] [id number] Miscellaneous Notes* Telephone Encounter - Enrique Rogers MD - 12/03/2022 3:30 PM EDT Filled his meds, lisinopril and atorvastatin PGY5, Cardiovascular Fellow at 3:32 PM Pager: [phone] documented in this [facility]05-06-2023 Telephone encounter Note* Telephone Encounter - Tameka Rollins - 12/03/2022 2:33 PM EDT Name of caller requesting page:Sharonda Phone Number of caller: [phone] Facility requesting page: N/a Reason for Page: Patient calling for urgent refill Provider paged: Dr. Rogers Practice Name of paged provider: MG Page Placed to #: N/a Time Page was sent or provider contacted: 2:39pm Page Content: Please call patient at [phone]; patient is in urgent need of a refill. [id number] Miscellaneous Notes* Telephone Encounter - Tameka Rollins - 12/03/2022 2:33 PM EDT Name of caller requesting page:Sharonda Phone Number of caller: [phone] Facility requesting page: N/a Reason for Page: Patient calling for urgent refill Provider paged: Dr. Rogers Practice Name of paged provider: MG Page Placed to #: N/a Time Page was sent or provider contacted: 2:39pm Page Content: Please call patient at [phone]; patient is in urgent need of a refill. documented in this encounterSAultman Orrville [id number] Miscellaneous Notes* Telephone Encounter - Shaylee Dickerson - 12/03/2022 10:29 AM EDT Patient given results and verbalized understanding of instructions given. Shaylee Dickerson * Telephone Encounter - MICHELLE Lee - 12/03/2022 8:10 AM EDT Please call patient and let him know that he tested positive for COVID-19. He may be a candidate for the antiviral. He needs to follow-up with PCP or do an express care virtual visit to discuss antiviral if interested. documented in this encounterA[facility]05-05-2023 Instructions* Patient Instructions* Rosario Doty APRN.[facility] - 12/02/2022 10:23 AM EDT Rest, increase water intake Motrin or Tylenol as needed for fever or pain. Salt water gargles, chloraseptic spray or lozenges as needed for sore throat. Warm beverages, honey. Nasal saline spray as needed Cool mist humidifier at night A cold normally lasts 7-10 days. If your symptoms are lasting longer, develop fever, or worsening by that time instead of improving then return to clinic or follow up with PCP for re-evaluation. covid test ordered You will be notified in 12-24 hours Home isolation until results are back Tylenol (generic acetaminophen) 500 mg-2 tabs every 8 hrs. as needed for fever and aches Ibuprofen 600 mg (3-200mg tablets) every 6 hours -Mucinex (generic is fine) Guaifenesin 1200 mg twice daily to help with cough and to thin out mucus Tessalon Perles 1-2 every 8 hours, do not combine this with robitussin or delsym * Seek medical care immediately, call 911, go to ER if you have chest pain, difficulty breathing, shortness of breath, inability to swallow. documented in this encounterA[facility]05-05-2023 History of Present illness Narrative* Rosario Doty APRN.CNP - 12/02/2022 10:22 AM EDT Subjective The history is provided by the patient. No presentation specialist was used. HPI Sharonda Flores is a 67 year old male who presents today for CC of cough, congestion, body aches, and chills. This started 2.5 days ago. He has used tylenol without relief. Denies any known exposure BP 120/62 Pulse 90 Temp 36.6 C (97.9 F) Resp 18 Wt 75.8 kg (167 lb) SpO2 98% BMI 26.95 kg/m Social History Tobacco Use Smoking status: Former Packs/day: 1.50 Years: 25.00 Pack years: 37.50 Types: Cigarettes Quit date: 01/24/2011 Years since quittin.8 Smokeless tobacco: Never Vaping Use Vaping Use: Never used Substance Use Topics Alcohol use: No Drug use: No PAST MEDICAL HISTORY Diagnosis Date Abdominal aortic aneurysm (AAA) without rupture (HCC) 3 x 3.1 cm 05/2021, repeat 1 year. Benign neoplasm of colon Coronary artery disease involving chilkoot coronary artery of chilkoot heart without angina pectoris Dr. Tineo Essential hypertension History of tobacco use Psoriasis [facility] Thrombocytopenia (HCC) Tinnitus of both ears I have confirmed and edited as necessary, the [facility] Review of Systems Constitutional: Negative for chills and fever. HENT: Negative for congestion, ear pain, sinus pain and sore throat. Respiratory: Positive for cough. Negative for sputum production, shortness of breath and wheezing. Cardiovascular: Negative for chest pain. Musculoskeletal: Negative for myalgias. Neurological: Negative for headaches. Objective Physical Exam Vitals and nursing note reviewed. Constitutional: Appearance: He is not toxic-appearing. HENT: Head: Normocephalic and atraumatic. Right Ear: Tympanic membrane, ear canal and external ear normal. Left Ear: Tympanic membrane, ear canal and external ear normal. Nose: Mucosal edema, congestion and rhinorrhea present. Right Sinus: No maxillary sinus tenderness or frontal sinus tenderness. Left Sinus: No maxillary sinus tenderness or frontal sinus tenderness. Mouth/Throat: Pharynx: Uvula midline. No oropharyngeal exudate or posterior oropharyngeal erythema. Tonsils: No tonsillar abscesses. Cardiovascular: Rate and Rhythm: Normal rate and regular rhythm. Heart sounds: Normal heart sounds. Pulmonary: Effort: Pulmonary effort is normal. Breath sounds: Normal breath sounds. No decreased breath sounds, wheezing, rhonchi or rales. Lymphadenopathy: Head: Right side of head: No submental, submandibular, tonsillar or preauricular adenopathy. Left side of head: No submental, submandibular, tonsillar or preauricular adenopathy. Cervical: No cervical adenopathy. Right cervical: No superficial cervical adenopathy. Left cervical: No superficial cervical adenopathy. Neurological: Mental Status: He is alert. ASSESSMENT/PLAN: 1. URI with cough and congestion - ICD9: 465.9, ICD10: J06.9 - Discussed viral etiology and rationale for treatment. - Symptomatic treatment with prn analgesia - Supportive care with fluids and rest Home isolation Testing ordered Comfort measures discussed - see patient instructions. When to seek higher level of care Notified in 12-24 hours with results, available on 2018 CORONAVIRUS Diagnosis and treatment plan were discussed and questions were answered to the patient's satisfaction. Pt acknowledged understanding of concepts and follow up plan. Specific signs and symptoms that would indicate the need for higher level of care were discussed indetail warranting prompt ER evaluation. Rosario Doty APRN.CNP documented in this encounterAdena [facility] Center04-04-2023 History of Present illness Narrative* Becky Tineo MD - 11/01/2022 1:15 PM EDT Images from the original note were not included. [facility] [address] [facility] [address] Dept: [phone] Dept Loc: [phone] Visit type: Established : 1955 Reason for Visit: Follow-up (2 year follow-up/) Assessment and Plan 1. Hyperlipidemia, unspecified hyperlipidemia type 2. Coronary artery disease involving chilkoot coronary artery of chilkoot heart without angina pectoris - ECG 12 lead - CLINIC PERFORMED 3. Essential hypertension This is a very pleasant 67 year-old male with a history of prior PCI, most recently in 2011. His ejection fraction is normal. He is doing quite well with his current medications. he needs to remain on aspirin 81mg daily, lifelong. I have not changed his statin or antihypertensive regimen today. Otherwise he should remain as active as possible and I will see him back in two year, sooner if needed. It was a pleasure seeing your patient in the office today. Please do not hesitate to call me with any questions. Follow up in about 2 years (around 11/01/2024). Subjective HPI Sharonda Flores is a 67 y.o. male with a history of several PCIs, most recently in May 2012. He currently has stents in his LAD, circumflex, distal RCA and a known occlusion of the second diagonal branch. His ejection fraction remains normal. He has done well since that time and continueshis current medications without problem. He is very active and can work on the yard for several hours per day as well as exercising most days and has no symptoms. Sharonda Flores is here for routine follow up. he Is doing well, having no cardiac symptoms. Review of Systems Constitutional: Negative for activity change, chills, diaphoresis, fatigue and fever. HENT: Negative for nosebleeds and trouble swallowing. Eyes: Negative for discharge and visual disturbance. Respiratory: Negative for apnea, cough, chest tightness, shortness of breath and wheezing. Cardiovascular: Negative for chest pain, palpitations and leg swelling. Gastrointestinal: Negative for abdominal distention, abdominal pain, blood in stool, diarrhea, nausea and vomiting. Endocrine: Negative for cold intolerance and heat intolerance. Genitourinary: Negative for hematuria. Musculoskeletal: Positive for neck pain and neck stiffness. Negative for gait problem and myalgias. Skin: Negative for color change and rash. Neurological: Positive for headaches. Negative for dizziness, seizures, syncope, facial asymmetry, speech difficulty, weakness, light-headedness and numbness. Hematological: Does not bruise/bleed easily. Psychiatric/Behavioral: Negative for dysphoric mood. No Known Allergies Outpatient Medications Prior to Visit Medication Sig Dispense Refill aspirin 81 MG EC tablet Take 81 mg by mouth daily. atorvastatin (Lipitor) 80 MG tablet Take 80 mg by mouth every evening. carvedilol (Coreg) 6.25 MG tablet Take 6.25 mg by mouth 2 times daily. lisinopril 5 MG tablet Take 5 mg by mouth daily. nitroglycerin (Nitrostat) 0.4 MG SL tablet DISSOLVE 1 TABLET UNDER THE TONGUE EVERY 5 MINUTES NEEDED. No facility-administered medications prior to visit. Past Medical History: Diagnosis Date Arrhythmia v-fib/ arrest CAD (coronary artery disease) Hyperlipidemia [place], old Sleep apnea Social History Tobacco Use Smoking status: Former Types: Cigarettes Quit date: 08/17/2011 Years since quittin.2 Smokeless tobacco: Never Tobacco comments: Quit smoking: currently occ cigar Substance Use Topics Alcohol use: No Past Surgical History: Procedure Laterality Date CARDIAC PROCEDURE 03/15/2012 BMS mid dis RCA CARDIAC PROCEDURE 03/2012 REBECCA to mis dist LAD CARDIAC PROCEDURE 05/2012 REBECCA to prox LCx CORONARY ANGIOPLASTY 05/2012 circ, distal RCA, & LAD Family History Problem Relation Name Age of Onset Heart disease Father No Known Problems Mother Objective Vitals: 11/01/22 1310 BP: 102/60 BP Location: Left arm Patient Position: Sitting BP Cuff Size: Adult Pulse: 69 SpO2: 96% Weight: 174 lb (78.9 kg) Height: 5' 5 (1.651 m) Physical Exam Constitutional: General: He is not in acute distress. Appearance: He is not diaphoretic. HENT: Head: Normocephalic. Nose: Nose normal. Mouth/Throat: Mouth: Mucous membranes are moist. Pharynx: No oropharyngeal exudate. Eyes: General: No scleral icterus. Right eye: No discharge. Left eye: No discharge. Neck: Thyroid: No thyromegaly. Vascular: No carotid bruit or JVD. Cardiovascular: Rate and Rhythm: Normal rate and regular rhythm. Pulses: Normal pulses. Heart sounds: Normal heart sounds. Pulmonary: Effort: Pulmonary effort is normal. Breath sounds: Normal breath sounds. Abdominal: General: Bowel sounds are normal. There is no distension. Palpations: There is no hepatomegaly. Tenderness: There is no abdominal tenderness. Musculoskeletal: General: Normal range of motion. Cervical back: Normal range of motion. Right lower leg: No edema. Left lower leg: No edema. Skin: General: Skin is warm and dry. Neurological: Mental Status: He is oriented to person, place, and time. Psychiatric: Mood and Affect: Mood normal. Behavior: Behavior normal. Data Reviewed and Summarized No results found for: EFBP, PLVEF, LVEFPHYS, LVEF2D, EF Review of tests/labs done/ordered within my specialty: EKG in office: Review of tests/labs done/ordered outside my specialty: Independent interpretation of tests: Becky Tineo MD documented in this [facility]05-20-2022 Miscellaneous Notes* Telephone Encounter - Brianna Salinas RN - 12/17/2021 2:44 PM EDT Patient returned call and given provider's message below. Patient agreeable to stopping the pravachol and starting the lipitor. Will recheck labs in 3 months. Brianna Salinas RN * Telephone Encounter - Shaylee Ochoa LPN - 12/16/2021 1:02 PM EDT Letter sent for patient to contact office for update. * Telephone Encounter - Shaylee Ochoa LPN - 12/16/2021 12:53 PM EDT Message left for patient to return call for update and orders. * Telephone Encounter - Shaylee Ochoa LPN - 12/14/2021 10:54 AM EDT Phoned patient and VM left to return call for update on labs and new medication/orders. Advised to request to speak to a nurse for update. * Telephone Encounter - Jazmyn Grullon Ma - 12/08/2021 4:46 PM EDT Left message for patient to call office back Jazmyn Grullon Ma * Telephone Encounter - Tima Tello MD - 12/08/2021 4:27 PM EDT HIV screening negative. Platelets remain low, but not in range to cause spontaneous bleeding. Patient's cholesterol is still high on pravachol 80 mg daily. Recommend changing to high intensity statin Lipitor 80 mg daily and will recheck in 3 months. Work on low cholesterol diet and exercise as able. documented in this encounterAden[facility]05-11-2022 Miscellaneous Notes* Telephone Encounter - Minoo Zaragoza RN - 12/08/2021 2:03 PM EDT Spoke with patient. Given message from provider's office. Patient verbalizes understanding. Minoo Zaragoza RN * Telephone Encounter - Shaylee Loving LPN - 12/08/2021 1:17 PM EDT Left message to call office. 12/08/2021 1:17 PM. Shaylee Loving LPN * Telephone Encounter - Marisa Faulkner LPN - 12/07/2021 6:26 PM EDT Patient telephoned. Message left to call back for update. Marisa Faulkner LPN * Telephone Encounter - Tima Tello MD - 12/07/2021 3:23 PM EDT Repeat BP in good range. No change to regimen. * Telephone Encounter - Joanna Awad LPN - 12/07/2021 3:19 PM EDT Manual Readin/68 Pulse: 80 Reason for blood pressure check - Last BP elevated Patient is: Taking medication as prescribed Yes Took medication today Yes If no, date medication last taken N/A Experiencing side effects No BP was elevated at last appt 11/23/21. No BP medication changes were made at that time. Taking all medications as prescribed. Denies any chest pain, shortness of breath, dizziness, or headaches. No caffeine. Past personal history of tobacco use; no current exposure. Alert and oriented. Pt has been identified by name and birthdate: Yes Allergies reviewed: Yes Latex allergy: no. Medication - prescribed and OTC reviewed and updated: Yes Do you need any prescription refills prior to your next visit: No Health Maintenance: Reviewed and not up to date and provider notified Patient advised to continue with current medications and would be contacted if any further instructions after review by PCP. Joanna Awad LPN documented in this encounterA[facility]05-10-2022 History of Present illness Narrative* Joanna Awad LPN - 12/07/2021 3:18 PM EDT Manual Readin/68 Pulse: 80 Reason for blood pressure check - Last BP elevated Patient is: Taking medication as prescribed Yes Took medication today Yes If no, date medication last taken N/A Experiencing side effects No BP was elevated at last appt 11/23/21. No BP medication changes were made at that time. Taking all medications as prescribed. Denies any chest pain, shortness of breath, dizziness, or headaches. No caffeine. Past personal history of tobacco use; no current exposure. Alert and oriented. Pt has been identified by name and birthdate: Yes Allergies reviewed: Yes Latex allergy: no. Medication - prescribed and OTC reviewed and updated: Yes Do you need any prescription refills prior to your next visit: No Health Maintenance: Reviewed and not up to date and provider notified Patient advised to continue with current medications and would be contacted if any further instructions after review by PCP. Joanna Awad LPN documented in this encounterAdena [facility] Center04-26-2022 History of Present illness Narrative* Tima Tello MD - 11/23/2021 4:45 PM EDT Chief Complaint Patient presents with: F/U 6 months HPI Sharonda Flores is a 66 year old male who presents here today for 6 month follow up. HTN: Mr. Flores indicates that he is feeling well and denies any symptoms referable to elevated blood pressure. Specifically denies headache, chest pain, palpitations, dyspnea and peripheral edema. Patient denies any side effects of his medication(s) and is compliant with their regimen. He does notcheck BP's generally. Sharonda likes to exercise by yard work in the summer. Does not exercise during the winter. He watches his diet for sodium, low fat and low cholesterol most of the time. Last 3 Encounter BP Readings: Date: BP: 11/23/2021 132/76 08/10/2021 122/70 08/03/2021 102/59 CAD s/p stent x4 in 2011: Patient following up with Dr. Tineo for cardiology. Last OV in September 2020 and was told to follow up in 2 years. EF normal. Asymptomatic on current regimen without changes. Needs refill on statin today and nitro due to expiration. Has not ever needed nitro. Following up with [facility] for history of psoriasis. States he has not gotten Cosentyx injection since June because of cost. They are working on getting him a discount. Has not had any flare ups. Cyst removed from right side of chest back in September without complications. History of chronic thrombocytopenia. Evaluated in the past by hematology who told him to call with bleeding symptoms, otherwise no treatment recommended. Denies bleeding/bruising symptoms today. Due for 1st COVID booster. Advised patient to follow up with pharmacy or health department. Given information on shingrix vaccine as well. Past medical history, appointments, medications, allergies reviewed. Previous Medical History PAST MEDICAL HISTORY Diagnosis Date Abdominal aortic aneurysm (AAA) without rupture (HCC) 3 x 3.1 cm 05/2021, repeat 1 year. Benign neoplasm of colon Coronary artery disease involving chilkoot coronary artery of chilkoot heart without angina pectoris Dr. Tineo Essential hypertension History of tobacco use Psoriasis [facility] Thrombocytopenia (HCC) Tinnitus of both ears Previous Surgical History PAST SURGICAL HISTORY Procedure Laterality Date COLONOSCOPY FLX DX W/COLLJ SPEC WHEN PFRMD 10/08/2008 Colonoscopy COLONOSCOPY FLX DX W/COLLJ SPEC WHEN PFRMD 08/03/2021 repeat in 10 years EXTRACTION, ERUPTED TOOTH OR EXPOSED ROOT (ELEVATION AND/OR FORCEPS REMOVAL) wisdom HEART CATHETERIZATION 2011 stent x 4 HEART SURGERY HX PAST SURGICAL HISTORY OF age 6 appendectomy, no rupture TONSILLECTOMY HX TONSILLECTOMY PRIMARY/SECONDARY <AGE 12 tonsillectomy Family History FAMILY HISTORY Problem Relation Age of Onset Breast Cancer Mother Heart Father details uncertain; ? h/o rheumatic fever Stroke Father details uncertain No Known Problems Brother No Known Problems Maternal Grandmother No Known Problems Maternal Grandfather No Known Problems Paternal Grandmother No Known Problems Paternal Grandfather Diabetes Other none Colon Cancer Other none Prostate Cancer Other none No Known Problems Son No Known Problems Son No Known Problems Daughter No Known Problems Daughter Patient Allergies ALLERGIES Allergen Reactions Penicillins Hives Current Medications Current Outpatient Medications on File Prior to Visit Medication Sig Aspirin 81 mg Tab Take 81 mg by mouth once daily. carvedilol (COREG) 6.25 mg tablet Take 6.25 mg by mouth twice daily with meals. lisinopril (PRINIVIL) 5 mg tablet Take 5 mg by mouth once daily. secukinumab (COSENTYX PEN, 2 PENS,) 150 mg/mL Inject 2 mL subcutaneously once every month. (Patientnot taking: Reported on 11/23/2021 ) pravastatin (PRAVACHOL) 80 mg tablet Take 1 tablet by mouth once daily. cyclobenzaprine (FLEXERIL) 10 mg tablet Take 1 tablet by mouth three times daily as needed for muscle spasm. (Patient not taking: Reported on 08/10/2021 ) predniSONE (DELTASONE) 10 mg tablet Take 4 tabs daily for 3 days, then 2 tabs daily for 3 days, then 1 tab daily for 3 days with food. (Patient not taking: Reported on 08/10/2021 ) nitroglycerin sublingual 0.4 mg SL tablet Dissolve 0.4 mg under the tongue every 5 minutes as needed. (Patient not taking: Reported on 11/23/2021 ) No current facility-administered medications on file prior to visit. Social History Social History Tobacco Use Smoking status: Former Smoker Packs/day: 1.50 Years: 25.00 Pack years: 37.50 Types: Cigarettes Quit date: 01/24/2011 Years since quittin.8 Smokeless tobacco: Never Used Vaping Use Vaping Use: Never used Substance Use Topics Alcohol use: No Drug use: No Review of Symptoms REVIEW OF SYSTEMS GENERAL: No weight loss, malaise or fevers RESPIRATORY: Negative for cough, hemoptysis, wheezing, COPD, dyspnea or shortness of breath CARDIOVASCULAR: Negative for chest pain, leg swelling, hypertension, CHF or palpitations GI: No nausea, vomiting, or diarrhea SKIN: Negative for lesions, rash, and itching EXAM: BP 132/70 Pulse 71 Resp 18 Wt 81.8 kg (180 lb 6.4 oz) SpO2 99% BMI 29.12 kg/m General Appearance: Well appearing, alert, in no acute distress, well-hydrated, well nourished.. Skin: Skin color, texture, turgor normal, no suspicious rashes or lesions. Lungs: Lungs clear to auscultation. No wheezing, rhonchi, rales.. Heart: RRR without murmur, gallop, or rubs. No ectopy. Abdomen: Normal abdominal exam, Abdomen soft, non-tender. Bowel sounds normal. No masses, organomegaly. Extremities: No deformities, edema, skin discoloration, clubbing or cyanosis. Good capillary refill. . Health Maintenance List SHINGRIX VACCINE(1 of 2) Never done LUNG CANCER SCREENING Never done LDL CHOLESTEROL due on 10/17/2020 COVID-19 VACCINE(3 - Pfizer risk 4-dose series) due on 01/15/2021 ADVANCE DIRECTIVE DISCUSSION Never done DTAP,TDAP,TD(1 - Tdap) due on 05/07/2022 PNEUMOVAX AGE 65 AND OVER WITH 5YR LOOKBACK(1) due on 05/07/2022 INFLUENZA(Season Ended) due on 03/31/2022 ANNUAL PCP TEAM CHRONIC DISEASE VISIT due on 05/07/2022 DEPRESSION SCREENING due on 05/07/2022 BP CONTROLLED (<130/80) due on 08/10/2022 DIABETES SCREEN due on 12/08/2023 LIPID SCREEN due on 10/17/2024 PROSTATE CANCER SCREENING DISCUSSION due on 05/07/2026 COLORECTAL CANCER SCREENING due on 08/03/2031 ABDOMINAL AORTIC ANEURYSM SCREENING Completed HEPATITIS C SCREENING Completed MENINGOCOCCAL CONJUGATE Aged Out Data reviewed Component Latest Ref Rng & Units 12/07/2020 WBC 3.70 - 11.00 k/uL 4.68 RBC 4.20 - 6.00 m/uL 5.25 Hemoglobin 13.0 - 17.0 g/dL 15.7 Hematocrit 39.0 - 51.0 % 48.3 MCV 80.0 - 100.0 fL 92.0 MCH 26.0 - 34.0 pG 29.9 MCHC 30.5 - 36.0 g/dL 32.5 RDW-CV 11.5 - 15.0 % 13.0 Platelet Count 150 - 400 k/uL 94 (L) MPV 9.0 - 12.7 fL 12.6 Neut% % 67.5 Abs Neut (ANC) 1.45 - 7.50 k/uL 3.14 Lymph% % 19.7 Abs Lymph 1.00 - 4.00 k/uL 0.92 (L) [place]% % 9.6 Abs [place] <0.87 k/uL 0.45 Eosin% % 2.6 Abs Eosin <0.46 k/uL 0.12 Baso% % 0.6 Abs Baso <0.11 k/uL 0.03 Nucleated Reds 0 /100 WBC 0.0 Absolute nRBC <0.01 k/uL <0.01 Diff Type Auto Diff Glucose 74 - 99 mg/dL 90 BUN 9 - 24 mg/dL 17 Creatinine 0.73 - 1.22 mg/dL 0.97 Sodium 136 - 144 mmol/L 140 Potassium 3.7 - 5.1 mmol/L 4.3 Chloride 97 - 105 mmol/L 104 CO2 22 - 30 mmol/L 25 Anion Gap 9 - 18 mmol/L 11 Calcium 8.5 - 10.2 mg/dL 9.1 eGFR- >60 eGFR-All Other Races . >60 Albumin 3.9 - 4.9 g/dL 4.1 Bilirubin, Total 0.2 - 1.3 mg/dL 0.4 Bilirubin, Conjug <0.2 mg/dL <0.2 Alkaline Phosphatase 38 - 113 U/L 72 AST 14 - 40 U/L 17 ALT 10 - 54 U/L 13 Protein, Total 6.3 - 8.0 g/dL 6.9 ASSESSMENT/PLAN: 1. Coronary artery disease involving chilkoot coronary artery of chilkoot heart without angina pectoris- ICD9: 414.01, ICD10: I25.10 (primary diagnosis) Asymptomatic on current regimen. Red flags for re-assessment reviewed with patient in detail. No changes. F/u with cardiology as recommended. - COMP METABOLIC PANEL - LIPID PANEL, NONFASTING - CBC + DIFF 2. Essential hypertension - ICD9: 401.9, ICD10: I10 - suboptimal control - Continue current medication(s) - Encouraged dietary sodium restriction/DASH diet - Recommended regular aerobic exercise. - Follow up in 1 month for BP recheck. - Reviewed risks of HTN and principles of treatment - Goal of BP <130/80 3. Thrombocytopenia (HCC) - ICD9: 287.5, ICD10: D69.6 Asymptomatic. Recheck CBC with diff. 4. Psoriasis - ICD9: 696.1, ICD10: L40.9 Still working on getting Cosentyx approved. No recent flares. F/u with dermatology. 5. History of tobacco use - ICD9: V15.82, ICD10: Z87.891 Continue cessation. 6. Screening for HIV (human immunodeficiency virus) - ICD9: V73.89, ICD10: Z11.4 Has not been screened for HIV as an adult. - HIV 1 2 COMBO(AG/AB),WITH REFLEX TO DIFFERENTIATION [facility]ello [facility] Diagnosis Coronary artery disease involving chilkoot coronary artery of chilkoot heart without angina pectoris- Primary Essential hypertension Unspecified essential hypertension Thrombocytopenia (HCC) Thrombocytopenia, unspecified Psoriasis Other psoriasis History of tobacco use Personal history of tobacco use, presenting hazards to health Screening for HIV (human immunodeficiency virus) Special screening examination for other specified viral diseases documented in this encounter [facility]* Diagnosis Essential hypertension- Primary Unspecified essential hypertension documented in this encounter [facility]* Diagnosis Mixed hyperlipidemia- Primary documented in [facility] noteNo assessment information availableWAultman [facility] Work Phone: Evaluation note* Diagnosis Hyperlipidemia, unspecified hyperlipidemia type- Primary Coronary artery disease involving chilkoot coronary artery of chilkoot heart without angina pectoris Essential hypertension Unspecified essential hypertension [facility] Diagnosis URI with cough and congestion- Primary documented in this encounter [facility]* Diagnosis Hyperlipidemia, mixed- Primary Mixed hyperlipidemia documented in this encounter [facility]* Diagnosis Abdominal aortic aneurysm (AAA) without rupture, unspecified part (HCC) documented in this encounter [facility]* Diagnosis Multiple lung nodules- Primary Other nonspecific abnormal finding of lung field Former tobacco use Personal history of tobacco use, presenting hazards to health Lung nodules Other nonspecific abnormal finding of lung field documented in this encounter [facility]* Diagnosis Lung nodules Other nonspecific abnormal finding of lung field documented in this encounter [facility]* Diagnosis Solid nodule of lung 6 mm to 8 mm in diameter- Primary documented in [facility]* Diagnosis Lung nodule- Primary Solitary pulmonary nodule documented in this encounter [facility]* Diagnosis Lung nodule- Primary Solitary pulmonary nodule documented in this encounter [facility]* Diagnosis Pre-op evaluation- Primary Preoperative examination, unspecified Mixed hyperlipidemia Essential hypertension Unspecified essential hypertension Coronary artery disease involving chilkoot coronary artery of chilkoot heart without angina pectoris Abdominal aortic aneurysm (AAA) without rupture, unspecified part (HCC) Thrombocytopenia (HCC) Thrombocytopenia, unspecified At risk for sleep apnea Penicillin allergy Personal history of allergy to penicillin Personal history of allergy to penicillin Lung nodule Solitary pulmonary nodule * Assessment & Plan Note - Rosana Villafuerte, SESAR.DISASTER RECOVERY MANAGER - 11/29/2023 8:27 AM EDT Associated Problem(s): At risk for sleep apnea Assessment: Elevated STOPBang score of 4. Recommended further sleep testing. Consult placed to sleep medicine. * Assessment & Plan Note - Rosana Villafuerte APRN.CNP - 11/29/2023 8:26 AM EDT Associated Problem(s): Personal history of allergy to penicillin Assessment: PCN allergy listed, would benefit from further testing. Consult placed. * Assessment & Plan Note - Rosana Villafuerte APRN.CNP - 11/29/2023 8:06 AM EDT Associated Problem(s): Thrombocytopenia (HCC) Assessment: pending repeat cbc. Hemoglobin (g/dL) Date Value 06/09/2023 13.9 12/07/2020 15.7 Hematocrit (%) Date Value 06/09/2023 42.2 12/07/2020 48.3 WBC (k/uL) Date Value 06/09/2023 4.93 12/07/2020 4.68 Platelet Count (k/uL) Date Value 06/09/2023 116 12/07/2020 94 * Assessment & Plan Note - Rosana Villafuerte APRN.CNP - 11/29/2023 8:05 AM EDT Associated Problem(s): Abdominal aortic aneurysm (AAA) without rupture (HCC) Assessment: monitored by PCP, last Aorta 05/2023, stable * Assessment & Plan Note - Rosana Villafuerte APRN.CNP - 11/29/2023 8:05 AM EDT Associated Problem(s): Coronary artery disease involving chilkoot coronary artery of chilkoot heart without angina pectoris Assessment: Denies any new or worsening cardiac symptoms. 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 Noman Vásquez, last OV in 2022 per pt. Reports compliance to medication. Stents present, x4, placed in 2011. Recent cardiac testing. ECHO stress 2018: CONCLUSIONS SUMMARY: 1. Stress: The patient experienced no chest pain during stress. Functional capacity is good. 2. Stress ECG conclusions: No stress induced ECG changes suggestive of ischemia. 3. Stress echo: Left ventricular ejection fraction was normal at rest and with stress. There is no evidence for stress-induced ischemia. 4. Normal study after maximal exercise. * Assessment & Plan Note - Rosana Villafuerte APRN.CNP - 11/29/2023 8:04 AM EDT Associated Problem(s): Essential hypertension Assessment: Stable, complaint on rx. Follows with PCP. Last 3 Encounter BP Readings: Date: BP: 11/29/2023 122/80 11/06/2023 110/82 07/11/2023 118/66 * Assessment & Plan Note - Rosana Villafuerte APRN.CNP - 11/29/2023 8:04 AM EDT Associated Problem(s): Mixed hyperlipidemia Assessment: Complaint on statin therapy. Encouraged lifestyle modifications. Body mass index is 29.79 kg/m . [facility] Multiple lung nodules Other nonspecific abnormal finding of lung field Lung nodule Solitary pulmonary nodule [facility] Diagnosis Multiple lung nodules Other nonspecific abnormal finding of lung field Lung nodule Solitary pulmonary nodule [facility] Diagnosis Multiple lung nodules Other nonspecific abnormal finding of lung field Lung nodule Solitary pulmonary nodule [facility] Diagnosis Medicare annual wellness visit, subsequent- Primary Routine general medical examination at a health care facility Essential hypertension Unspecified essential hypertension Mixed hyperlipidemia Coronary artery disease involving chilkoot coronary artery of chilkoot heart without angina pectoris Thrombocytopenia (HCC) Thrombocytopenia, unspecified Multiple lung nodules on CT Tobacco use disorder Lung nodule Solitary pulmonary nodule [facility]* Diagnosis Lung nodule Solitary pulmonary nodule Lung nodule Solitary pulmonary nodule [facility]* Diagnosis Lung nodule- Primary Solitary pulmonary nodule Former tobacco use Personal history of tobacco use, presenting hazards to health Pre-operative respiratory examination [facility]* Diagnosis Multiple lung nodules- Primary Other nonspecific abnormal finding of lung field Former tobacco use Personal history of tobacco use, presenting hazards to health [facility]* Diagnosis Multiple lung nodules Other nonspecific abnormal finding of lung field Former tobacco use Personal history of tobacco use, presenting hazards to health [facility]* Diagnosis Nodule of upper lobe of right lung [R91.1]- Primary [facility]* Diagnosis Nodule of right lung- Primary Solitary pulmonary nodule Nodule of right lung Solitary pulmonary nodule [facility]* Diagnosis Nodule of upper lobe of right lung- Primary Preoperative testing Preoperative examination, unspecified Shortness of breath Nodule of right lung Solitary pulmonary nodule [facility]* Diagnosis Right upper lobe pulmonary nodule- Primary Coronary artery disease involving chilkoot coronary artery of chilkoot heart without angina pectoris H/O heart artery stent Postsurgical percutaneous transluminal coronary angioplasty status Essential hypertension Unspecified essential hypertension Pre-op exam Preoperative examination, unspecified Nodule of right lung Solitary pulmonary nodule [facility]* Diagnosis Coronary artery disease involving chilkoot coronary artery of chilkoot heart without angina pectoris [facility] Diagnosis Mixed hyperlipidemia- Primary Coronary artery disease involving chilkoot coronary artery of chilkoot heart without angina pectoris Essential hypertension Unspecified essential hypertension [facility]* Diagnosis Acute post-operative pain- Primary History of thoracotomy Other postprocedural status Right upper lobe pulmonary nodule [facility]* Diagnosis S/P lobectomy of lung- Primary Other postprocedural status Adenocarcinoma, lung, right (HCC) [facility] Diagnosis S/P lobectomy of lung Other postprocedural status [facility] Diagnosis Cold extremity without peripheral vascular disease- Primary Other symptoms involving skin and integumentary tissues Other specified symptoms and signs involving the circulatory and respiratory systems Pain of toe of right foot Pain in limb Primary lung adenocarcinoma, right (HCC) S/P lobectomy of lung Other postprocedural status Coronary artery disease involving chilkoot coronary artery of chilkoot heart without angina pectoris Essential hypertension Unspecified essential hypertension Pain of toe of right foot Pain in limb [facility] Diagnosis Pre-op evaluation- Primary Preoperative examination, unspecified Mixed hyperlipidemia Essential hypertension Unspecified essential hypertension Coronary artery disease involving chilkoot coronary artery of chilkoot heart without angina pectoris Abdominal aortic aneurysm (AAA) without rupture, unspecified part (HCC) Thrombocytopenia (HCC) Thrombocytopenia, unspecified At risk for sleep apnea Penicillin allergy Personal history of allergy to penicillin Personal history of allergy to penicillin Malignant neoplasm of upper lobe of right lung (HCC)- Primary Malignant neoplasm of upper lobe, bronchus or lung Malignant neoplasm of unspecified part of unspecified bronchus or lung (HCC) [facility] Diagnosis Pre-op evaluation- Primary Preoperative examination, unspecified Mixed hyperlipidemia Essential hypertension Unspecified essential hypertension Coronary artery disease involving chilkoot coronary artery of chilkoot heart without angina pectoris Abdominal aortic aneurysm (AAA) without rupture, unspecified part (HCC) Thrombocytopenia (HCC) Thrombocytopenia, unspecified At risk for sleep apnea Penicillin allergy Personal history of allergy to penicillin Personal history of allergy to penicillin Pain of toe of right foot Pain in limb [facility] Diagnosis Pre-op evaluation- Primary Preoperative examination, unspecified Mixed hyperlipidemia Essential hypertension Unspecified essential hypertension Coronary artery disease involving chilkoot coronary artery of chilkoot heart without angina pectoris Abdominal aortic aneurysm (AAA) without rupture, unspecified part (HCC) Thrombocytopenia (HCC) Thrombocytopenia, unspecified At risk for sleep apnea Penicillin allergy Personal history of allergy to penicillin Personal history of allergy to penicillin PAD (peripheral artery disease) (HCC)- Primary Peripheral vascular disease, unspecified Cold extremity without peripheral vascular disease Other symptoms involving skin and integumentary tissues [facility] Diagnosis Pre-op evaluation- Primary Preoperative examination, unspecified Mixed hyperlipidemia Essential hypertension Unspecified essential hypertension Coronary artery disease involving chilkoot coronary artery of chilkoot heart without angina pectoris Abdominal aortic aneurysm (AAA) without rupture, unspecified part (HCC) Thrombocytopenia (HCC) Thrombocytopenia, unspecified At risk for sleep apnea Penicillin allergy Personal history of allergy to penicillin Personal history of allergy to penicillin Cellulitis of left lower extremity- Primary Cellulitis and abscess of leg, except foot [facility] Diagnosis Pre-op evaluation- Primary Preoperative examination, unspecified Mixed hyperlipidemia Essential hypertension Unspecified essential hypertension Coronary artery disease involving chilkoot coronary artery of chilkoot heart without angina pectoris Abdominal aortic aneurysm (AAA) without rupture, unspecified part (HCC) Thrombocytopenia (HCC) Thrombocytopenia, unspecified At risk for sleep apnea Penicillin allergy Personal history of allergy to penicillin Personal history of allergy to penicillin Left leg cellulitis- Primary Cellulitis and abscess of leg, except foot [facility] Diagnosis Pre-op evaluation- Primary Preoperative examination, unspecified Mixed hyperlipidemia Essential hypertension Unspecified essential hypertension Coronary artery disease involving chilkoot coronary artery of chilkoot heart without angina pectoris Abdominal aortic aneurysm (AAA) without rupture, unspecified part (HCC) Thrombocytopenia (HCC) Thrombocytopenia, unspecified At risk for sleep apnea Penicillin allergy Personal history of allergy to penicillin Personal history of allergy to penicillin Left leg cellulitis- Primary Cellulitis and abscess of leg, except foot [facility] Diagnosis Pre-op evaluation- Primary Preoperative examination, unspecified Mixed hyperlipidemia Essential hypertension Unspecified essential hypertension Coronary artery disease involving chilkoot coronary artery of chilkoot heart without angina pectoris Abdominal aortic aneurysm (AAA) without rupture, unspecified part (HCC) Thrombocytopenia (HCC) Thrombocytopenia, unspecified At risk for sleep apnea Penicillin allergy Personal history of allergy to penicillin Personal history of allergy to penicillin Malignant neoplasm of upper lobe of right lung (HCC)- Primary Malignant neoplasm of upper lobe, bronchus or lung Former cigarette smoker Personal history of tobacco use, presenting hazards to health Pulmonary air trapping [facility] Diagnosis Pre-op evaluation- Primary Preoperative examination, unspecified Mixed hyperlipidemia Essential hypertension Unspecified essential hypertension Coronary artery disease involving chilkoot coronary artery of chilkoot heart without angina pectoris Abdominal aortic aneurysm (AAA) without rupture, unspecified part (HCC) Thrombocytopenia (HCC) Thrombocytopenia, unspecified At risk for sleep apnea Penicillin allergy Personal history of allergy to penicillin Personal history of allergy to penicillin Mixed hyperlipidemia- Primary Essential hypertension Unspecified essential hypertension PAD (peripheral artery disease) ([facility]) Peripheral vascular disease, unspecified Coronary artery disease involving chilkoot coronary artery of chilkoot heart without angina pectoris [facility]* Diagnosis Pre-op evaluation- Primary Preoperative examination, unspecified Mixed hyperlipidemia Essential hypertension Unspecified essential hypertension Coronary artery disease involving chilkoot coronary artery of chilkoot heart without angina pectoris Abdominal aortic aneurysm (AAA) without rupture, unspecified part (HCC) Thrombocytopenia (HCC) Thrombocytopenia, unspecified At risk for sleep apnea Penicillin allergy Personal history of allergy to penicillin Personal history of allergy to penicillin Hyperlipidemia, mixed- Primary Mixed hyperlipidemia [facility]* Diagnosis 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)- Primary Atherosclerosis of chilkoot coronary artery of chilkoot heart with angina pectoris (HCC) Coronary artery disease involving chilkoot coronary artery of chilkoot heart without angina pectoris History of heart artery stent Left shoulder pain, unspecified chronicity Essential hypertension Unspecified essential hypertension Mixed hyperlipidemia PAD (peripheral artery disease) ([facility]) Unspecified peripheral vascular disease [facility] Diagnosis 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)- Primary Atherosclerosis of chilkoot coronary artery of chilkoot heart with angina pectoris (HCC) Coronary artery disease involving chilkoot coronary artery of chilkoot heart without angina pectoris History of heart artery stent Left shoulder pain, unspecified chronicity Essential hypertension Unspecified essential hypertension Mixed hyperlipidemia PAD (peripheral artery disease) (HCC) Unspecified peripheral vascular disease Chest pain, unspecified type [facility] Diagnosis 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) Chest pain, unspecified type [facility] Diagnosis 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) Abnormal stress echocardiogram 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) Abnormal stress echocardiogram [facility] Diagnosis 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)- Primary 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) Chronic total occlusion of coronary artery Chronic left shoulder pain Pain in joint, shoulder region S/P CABG (coronary artery bypass graft) Postsurgical aortocoronary bypass status documented in this encounter [facility] note* Diagnosis Pre-op evaluation- Primary Preoperative examination, unspecified Mixed hyperlipidemia Essential hypertension Unspecified essential hypertension Coronary artery disease involving chilkoot coronary artery of chilkoot heart without angina pectoris Abdominal aortic aneurysm (AAA) without rupture, unspecified part (HCC) Thrombocytopenia (HCC) Thrombocytopenia, unspecified At risk for sleep apnea Penicillin allergy Personal history of allergy to penicillin Personal history of allergy to penicillin Pain- Primary Generalized pain documented in this encounter [facility]* Diagnosis Pre-op evaluation- Primary Preoperative examination, unspecified Mixed hyperlipidemia Essential hypertension Unspecified essential hypertension Coronary artery disease involving chilkoot coronary artery of chilkoot heart without angina pectoris Abdominal aortic aneurysm (AAA) without rupture, unspecified part (HCC) Thrombocytopenia (HCC) Thrombocytopenia, unspecified At risk for sleep apnea Penicillin allergy Personal history of allergy to penicillin Personal history of allergy to penicillin DDD (degenerative disc disease), cervical- Primary Degeneration of cervical intervertebral disc Chronic left shoulder pain Pain in joint, shoulder region DDD (degenerative disc disease), cervical Degeneration of cervical intervertebral disc documented in this encounter [facility]* Diagnosis Pre-op evaluation- Primary Preoperative examination, unspecified Mixed hyperlipidemia Essential hypertension Unspecified essential hypertension Coronary artery disease involving chilkoot coronary artery of chilkoot heart without angina pectoris Abdominal aortic aneurysm (AAA) without rupture, unspecified part (HCC) Thrombocytopenia (HCC) Thrombocytopenia, unspecified At risk for sleep apnea Penicillin allergy Personal history of allergy to penicillin Personal history of allergy to penicillin DDD (degenerative disc disease), cervical Degeneration of cervical intervertebral disc documented in this encounter [facility]* Diagnosis Pre-op evaluation- Primary Preoperative examination, unspecified Mixed hyperlipidemia Essential hypertension Unspecified essential hypertension Coronary artery disease involving chilkoot coronary artery of chilkoot heart without angina pectoris Abdominal aortic aneurysm (AAA) without rupture, unspecified part (HCC) Thrombocytopenia (HCC) Thrombocytopenia, unspecified At risk for sleep apnea Penicillin allergy Personal history of allergy to penicillin Personal history of allergy to penicillin Pain Generalized pain documented in this encounter [facility]* Diagnosis S/P CABG (coronary artery bypass graft)- Primary Postsurgical aortocoronary bypass status 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) Essential hypertension Unspecified essential hypertension Atrial fibrillation, unspecified type (HCC) documented in this encounter [facility] note* Diagnosis Coronary artery disease involving chilkoot coronary artery of chilkoot heart without angina pectoris documented in this encounter [facility] note* Diagnosis S/P CABG (coronary artery bypass graft)- Primary Postsurgical aortocoronary bypass status Essential hypertension Unspecified essential hypertension Atrial fibrillation, unspecified type (HCC) documented in this encounter [facility] note* Diagnosis Pre-op evaluation- Primary Preoperative examination, unspecified Mixed hyperlipidemia Essential hypertension Unspecified essential hypertension Coronary artery disease involving chilkoot coronary artery of chilkoot heart without angina pectoris Abdominal aortic aneurysm (AAA) without rupture, unspecified part (HCC) Thrombocytopenia (HCC) Thrombocytopenia, unspecified At risk for sleep apnea Penicillin allergy Personal history of allergy to penicillin Personal history of allergy to penicillin Malignant neoplasm of unspecified part of unspecified bronchus or lung (HCC)- Primary S/P lobectomy of lung Other postprocedural status documented in this encounter [facility] note* Diagnosis Pre-op evaluation- Primary Preoperative examination, unspecified Mixed hyperlipidemia Essential hypertension Unspecified essential hypertension Coronary artery disease involving chilkoot coronary artery of chilkoot heart without angina pectoris Abdominal aortic aneurysm (AAA) without rupture, unspecified part (HCC) Thrombocytopenia (HCC) Thrombocytopenia, unspecified At risk for sleep apnea Penicillin allergy Personal history of allergy to penicillin Personal history of allergy to penicillin Essential hypertension- Primary Unspecified essential hypertension Hyperlipidemia, mixed Mixed hyperlipidemia Coronary artery disease involving chilkoot coronary artery of chilkoot heart without angina pectoris PAD (peripheral artery disease) (HCC) Peripheral vascular disease, unspecified S/P lobectomy of lung Other postprocedural status S/P triple vessel bypass 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, right (HCC) documented in this encounter [facility] note* Diagnosis S/P CABG (coronary artery bypass graft)- Primary Postsurgical aortocoronary bypass status Essential hypertension Unspecified essential hypertension Atrial fibrillation, unspecified type (HCC) documented in this encounter [facility] note* Diagnosis Pre-op evaluation- Primary Preoperative examination, unspecified Mixed hyperlipidemia Essential hypertension Unspecified essential hypertension Coronary artery disease involving chilkoot coronary artery of chilkoot heart without angina pectoris Abdominal aortic aneurysm (AAA) without rupture, unspecified part (HCC) Thrombocytopenia (HCC) Thrombocytopenia, unspecified At risk for sleep apnea Penicillin allergy Personal history of allergy to penicillin Personal history of allergy to penicillin Pulmonary air trapping- Primary Malignant neoplasm of upper lobe of right lung (HCC) Malignant neoplasm of upper lobe, bronchus or lung Former cigarette smoker Personal history of tobacco use, presenting hazards to health documented [facility] this encounter [facility]* Diagnosis S/P CABG (coronary artery bypass graft)- Primary Postsurgical aortocoronary bypass status documented in this encounter [facility] note* Diagnosis Coronary artery disease involving chilkoot coronary artery of chilkoot heart without angina pectoris- Primary Mixed hyperlipidemia Essential hypertension Unspecified essential hypertension S/P CABG (coronary artery bypass graft) Postsurgical aortocoronary bypass status documented in this encounter [facility] note* Diagnosis Pre-op evaluation- Primary Preoperative examination, unspecified Mixed hyperlipidemia Essential hypertension Unspecified essential hypertension Coronary artery disease involving chilkoot coronary artery of chilkoot heart without angina pectoris Abdominal aortic aneurysm (AAA) without rupture, unspecified part Thrombocytopenia Thrombocytopenia, unspecified At risk for sleep apnea Penicillin allergy Personal history of allergy to penicillin Personal history of allergy to penicillin Malignant neoplasm of unspecified part of unspecified bronchus or lung (HCC) S/P lobectomy of lung Other postprocedural status documented in this encounter [facility] note* Diagnosis Pre-op evaluation- Primary Preoperative examination, unspecified Mixed hyperlipidemia Essential hypertension Unspecified essential hypertension Coronary artery disease involving chilkoot coronary artery of chilkoot heart without angina pectoris Abdominal aortic aneurysm (AAA) without rupture, unspecified part Thrombocytopenia Thrombocytopenia, unspecified At risk for sleep apnea Penicillin allergy Personal history of allergy to penicillin Personal history of allergy to penicillin Primary lung adenocarcinoma, right (HCC)- Primary documented in this encounter [facility] note* Diagnosis Pre-op evaluation- Primary Preoperative examination, unspecified Mixed hyperlipidemia Essential hypertension Unspecified essential hypertension Coronary artery disease involving chilkoot coronary artery of chilkoot heart without angina pectoris Abdominal aortic aneurysm (AAA) without rupture, unspecified part Thrombocytopenia Thrombocytopenia, unspecified At risk for sleep apnea Penicillin allergy Personal history of allergy to penicillin Personal history of allergy to penicillin Chronic constipation- Primary Unspecified constipation Melena Blood in stool Generalized abdominal pain Abdominal pain, generalized documented in this encounter [facility] note* Diagnosis Pre-op evaluation- Primary Preoperative examination, unspecified Mixed hyperlipidemia Essential hypertension Unspecified essential hypertension Coronary artery disease involving chilkoot coronary artery of chilkoot heart without angina pectoris Abdominal aortic aneurysm (AAA) without rupture, unspecified part Thrombocytopenia Thrombocytopenia, unspecified At risk for sleep apnea Penicillin allergy Personal history of allergy to penicillin Personal history of allergy to penicillin Primary lung adenocarcinoma, right (HCC)- Primary documented in this encounter [facility]* Diagnosis Pre-op evaluation- Primary Preoperative examination, unspecified Mixed hyperlipidemia Essential hypertension Unspecified essential hypertension Coronary artery disease involving chilkoot coronary artery of chilkoot heart without angina pectoris Abdominal aortic aneurysm (AAA) without rupture, unspecified part Thrombocytopenia Thrombocytopenia, unspecified At risk for sleep apnea Penicillin allergy Personal history of allergy to penicillin Personal history of allergy to penicillin Nausea- Primary Nausea alone Chronic constipation Unspecified constipation Melena Blood in stool Heart burn Heartburn RUQ abdominal pain Abdominal pain, right upper quadrant documented in this encounter [facility]* Diagnosis Pre-op evaluation- Primary Preoperative examination, unspecified Mixed hyperlipidemia Essential hypertension Unspecified essential hypertension Coronary artery disease involving chilkoot coronary artery of chilkoot heart without angina pectoris Abdominal aortic aneurysm (AAA) without rupture, unspecified part Thrombocytopenia Thrombocytopenia, unspecified At risk for sleep apnea Penicillin allergy Personal history of allergy to penicillin Personal history of allergy to penicillin Pulmonary air trapping- Primary Malignant neoplasm of upper lobe of right lung (HCC) Malignant neoplasm of upper lobe, bronchus or lung Former cigarette smoker Personal history of tobacco use, presenting hazards to health [facility] Diagnosis Pre-op evaluation- Primary Preoperative examination, unspecified Mixed hyperlipidemia Essential hypertension Unspecified essential hypertension Coronary artery disease involving chilkoot coronary artery of chilkoot heart without angina pectoris Abdominal aortic aneurysm (AAA) without rupture, unspecified part Thrombocytopenia Thrombocytopenia, unspecified At risk for sleep apnea Penicillin allergy Personal history of allergy to penicillin Personal history of allergy to penicillin Nausea Nausea alone RUQ abdominal pain Abdominal pain, right upper quadrant documented in this encounter [facility]* Diagnosis Pre-op evaluation- Primary Preoperative examination, unspecified Mixed hyperlipidemia Essential hypertension Unspecified essential hypertension Coronary artery disease involving chilkoot coronary artery of chilkoot heart without angina pectoris Abdominal aortic aneurysm (AAA) without rupture, unspecified part Thrombocytopenia Thrombocytopenia, unspecified At risk for sleep apnea Penicillin allergy Personal history of allergy to penicillin Personal history of allergy to penicillin Chronic constipation Unspecified constipation Melena Blood in stool Nausea Nausea alone Heart burn Heartburn documented in this encounter [facility]* Diagnosis Pre-op evaluation- Primary Preoperative examination, unspecified Mixed hyperlipidemia Essential hypertension Unspecified essential hypertension Coronary artery disease involving chilkoot coronary artery of chilkoot heart without angina pectoris Abdominal aortic aneurysm (AAA) without rupture, unspecified part Thrombocytopenia Thrombocytopenia, unspecified At risk for sleep apnea Penicillin allergy Personal history of allergy to penicillin Personal history of allergy to penicillin Malignant neoplasm of upper lobe of right lung (HCC)- Primary Malignant neoplasm of upper lobe, bronchus or lung Malignant neoplasm of unspecified part of unspecified bronchus or lung (HCC) Chronic post-thoracotomy pain documented in this encounter [facility] note* Diagnosis Pre-op evaluation- Primary Preoperative examination, unspecified Mixed hyperlipidemia Essential hypertension Unspecified essential hypertension Coronary artery disease involving chilkoot coronary artery of chilkoot heart without angina pectoris Abdominal aortic aneurysm (AAA) without rupture, unspecified part Thrombocytopenia Thrombocytopenia, unspecified At risk for sleep apnea Penicillin allergy Personal history of allergy to penicillin Personal history of allergy to penicillin Melena Blood in stool Generalized abdominal pain Abdominal pain, generalized documented in this encounter [facility] note* Diagnosis Coronary artery disease involving chilkoot coronary artery of chilkoot heart without angina pectoris- Primary [facility]* Diagnosis Pre-op evaluation- Primary Preoperative examination, unspecified Mixed hyperlipidemia Essential hypertension Unspecified essential hypertension Coronary artery disease involving chilkoot coronary artery of chilkoot heart without angina pectoris Abdominal aortic aneurysm (AAA) without rupture, unspecified part Thrombocytopenia Thrombocytopenia, unspecified At risk for sleep apnea Penicillin allergy Personal history of allergy to penicillin Personal history of allergy to penicillin RUQ pain- Primary Abdominal pain, right upper quadrant documented in this encounter [facility] note* Diagnosis Pre-op evaluation- Primary Preoperative examination, unspecified Mixed hyperlipidemia Essential hypertension Unspecified essential hypertension Coronary artery disease involving chilkoot coronary artery of chilkoot heart without angina pectoris Abdominal aortic aneurysm (AAA) without rupture, unspecified part Thrombocytopenia Thrombocytopenia, unspecified At risk for sleep apnea Penicillin allergy Personal history of allergy to penicillin Personal history of allergy to penicillin Infrarenal abdominal aortic aneurysm (AAA) without rupture- Primary Atherosclerotic ulcer of aorta Atherosclerosis of aorta Abdominal aortic aneurysm (AAA) without rupture, unspecified part Bilateral carotid artery stenosis Occlusion and stenosis of carotid artery without mention of cerebral infarction Peripheral arterial disease Peripheral vascular disease, unspecified Infrarenal abdominal aortic aneurysm, without rupture [facility] Diagnostic Procedure Only (Routine) - Closed Specialty Diagnoses / Procedures Referred By Reyes t Referred To Contact US IMAGING Diagnoses Abdominal aortic aneurysm (AAA) without rupture, unspecified part (HCC) Procedures US ABD AORTA US RETROPERITONEAL REAL TIME W/IMAGE LIMITED Tima Tello MD [address] [place] [address] [place] [address] Referral ID Status Reason Start Date Expiration Date V isits Requested Visits Authorized [id number] Closed Auto-Generate d Referral 06/09/2023 07/08/2024 1 1 [facility] for referral (narrative)* Outpatient Procedure (Routine) - Pending Review Specialty Diagnoses / Procedures Referred By Contac t Referred To Contact [facility] Diagnoses Multiple lung nodules Procedures LUNG DIFFUSION CAPACITY (DLCO) DIFFUSING CAPACITY Charo Tsai APRN.CNP [address] [place] [address] [address] Referral ID Status Reason Start Date Expiration Date Visits Requested Visits Authorized [id number] Pending Review Auto-Generat ed Referral 11/06/2023 12/05/2024 1 1 * Outpatient Procedure (Routine) - Pending Review Specialty Diagnoses / Procedures Referred By Contac t Referred To [facility] [place] Diagnoses Multiple lung nodules Procedures LUNG VOLUMES Charo Tsai APRN.DISASTER RECOVERY MANAGER [address] [place] [address] [place] [id number] Referral ID Status Reason Start Date Expiration Date Visits Requested Visits Authorized [id number] Pending Review Auto-Generat ed Referral 11/06/2023 12/05/2024 1 1 * Outpatient Procedure (Routine) - Pending Review Specialty Diagnoses / Procedures Referred By Contac t Referred To [facility] [place] Diagnoses Multiple lung nodules Procedures SIX MINUTE WALK CARDIOPULMONARY EXERCISE STRESS Charo Tsai APRN.CNP [address] [place] [address] [facility] [address] [place] [address] Referral ID Status Reason Start Date Expiration Date Visits Requested Visits Authorized [id number] Pending Review Auto-Generat ed Referral 11/06/2023 12/05/2024 1 1 * Outpatient Procedure (Routine) - Pending Review Specialty Diagnoses / Procedures Referred By Contac t Referred To Contact [facility] Diagnoses Multiple lung nodules Procedures SPIROMETRY WITH DILATOR IF OBSTRUCTED BRNCDILAT RSPSE SPMTRY PRE&POST-BRNCDILAT ADMN Charo Tsai APRN.DISASTER RECOVERY MANAGER [address] [place] [address] [facility] [address] [place] [id number] Referral ID Status Reason Start Date Expiration Date Visits Requested Visits Authorized [id number] Pending Review Auto-Generat ed Referral 11/06/2023 12/05/2024 1 1 * Diagnostic Procedure Only (Routine) - Pending Review Specialty Diagnoses / Procedures Referred By Reyes grimes Referred To Contact MOLECULAR & FUNCTIONAL IMAGING Diagnoses Lung nodules Procedures NM PET/CT SKULL-THIGH INITIAL PET IMAGING CT ATTENUATION SKULL BASE MID-THIGH Charo Tsai APRN.DISASTER RECOVERY MANAGER [address] [place] [address] Molecular & Functional Imaging [address] [id number] Referral ID Status Reason Start Date Expiration Date Visits Requested Visits Authorized [id number] Pending Review Auto-Generat ed Referral 11/06/2023 12/05/2024 1 1 [facility] for referral (narrative)* Outpatient Procedure (Urgent) - New Request Specialty Diagnoses / Procedures Referred By Contac t Referred To Contact [facility] Diagnoses Cold extremity without peripheral vascular disease Other specified symptoms and signs involving the circulatory and respiratory systems Procedures PVR ANK PRESS SHIRLEY VAS LAB NON-INVAS PHYSIOLOGIC STD EXTREMITY ART 2 LEVEL Tima Tello MD [address] [place] [address] [facility] [address] [place] [address] Referral ID Status Reason Start Date Expiration Date Visits Requested Visits Authorized [id number] New Request Auto-Generat ed Referral 03/11/2024 03/11/2025 1 1 * Diagnostic Procedure Only (Urgent) - Closed Specialty Diagnoses / Procedures Referred By Contac t Referred To Contact XR IMAGING Diagnoses Pain of toe of right foot Procedures XR FOOT GENERAL 3V AP/LAT/OBL RIGHT RADEX FOOT COMPLETE MINIMUM 3 VIEWS Tima Tello MD [address] [place] [address] [place] [address] Referral ID Status Reason Start Date Expiration Date V isits Requested Visits Authorized [id number] Closed Auto-Generate d Referral 03/11/2024 04/10/2025 1 1 [facility] for referral (narrative)* Diagnostic Procedure Only (Urgent) - Closed Specialty Diagnoses / Procedures Referred By Contac t Referred To Contact XR IMAGING Diagnoses Pain of toe of right foot Procedures XR FOOT GENERAL 3V AP/LAT/OBL RIGHT RADEX FOOT COMPLETE MINIMUM 3 VIEWS Tima Tello MD [address] [place] [address] [place] [address] Referral ID Status Reason Start Date Expiration Date V isits Requested Visits Authorized [id number] Closed Auto-Generate d Referral 03/11/2024 04/10/2025 1 1 [facility] for referral (narrative)* Diagnostic Procedure Only (Routine) - Authorized Specialty Diagnoses / Procedures Referred By Contac t Referred To Contact XR IMAGING Diagnoses Pain Procedures XR SHOULDER GENERAL 3V OR MORE AP/TRUE AP/OTHER LEFT RADEX SHOULDER COMPLETE MINIMUM 2 VIEWS Nan Ng PA-C [address] [place] [address] [place] [address] Referral ID Status Reason Start Date Expiration Date Visits Requested Visits Authorized [id number] Authorized Auto-Generat ed Referral 08/09/2024 09/08/2025 1 1 [facility] for referral (narrative)* Diagnostic Procedure Only (Routine) - Closed Specialty Diagnoses / Procedures Referred By Contac t Referred To Contact XR IMAGING Diagnoses DDD (degenerative disc disease), cervical Procedures XR CERV OTHER 4V AP/LAT/OBL RADEX SPINE CERVICAL 4 OR 5 VIEWS Nan Ng PA-C [address] [place] [address] [place] [address] Referral ID Status Reason Start Date Expiration Date V isits Requested Visits Authorized [id number] Closed Auto-Generate d Referral 08/12/2024 09/11/2025 1 1 [facility] for referral (narrative)* Diagnostic Procedure Only (Routine) - Closed Specialty Diagnoses / Procedures Referred By Contac t Referred To Contact XR IMAGING Diagnoses Pain Procedures XR SHOULDER GENERAL 3V OR MORE AP/TRUE AP/OTHER LEFT RADEX SHOULDER COMPLETE MINIMUM 2 VIEWS Nan Ng PA-C [address] [place] [address] [place] [address] Referral ID Status Reason Start Date Expiration Date V isits Requested Visits Authorized [id number] Closed Auto-Generate d Referral 08/09/2024 09/08/2025 1 1 [facility] for referral (narrative)No reason for referral information availableWAultman [facility] Work Phone: Reason for visit Narrative* Diagnostic Procedure Only (Routine) - Closed Specialty Diagnoses / Procedures Referred By Contac t Referred To Contact XR IMAGING Diagnoses S/P lobectomy of lung Procedures XR CHEST 1V FRONTAL PORT RADIOLOGIC EXAM CHEST SINGLE VIEW Nadege Tadeo MD [address] [place] [address] [place] [address] Referral ID Status Reason Start Date Expiration Date V isits Requested Visits Authorized [id number] Closed Auto-Generate d Referral 02/21/2024 03/15/2025 1 1 [facility] for visit Narrative* Diagnostic Procedure Only (Urgent) - Closed Specialty Diagnoses / Procedures Referred By Contac t Referred To Contact XR IMAGING Diagnoses Pain of toe of right foot Procedures XR FOOT GENERAL 3V AP/LAT/OBL RIGHT RADEX FOOT COMPLETE MINIMUM 3 VIEWS Tima Tello MD [address] [place] [address] [place] [address] Referral ID Status Reason Start Date Expiration Date V isits Requested Visits Authorized [id number] Closed Auto-Generate d Referral 03/11/2024 04/10/2025 1 1 [facility] for visit Narrative* Imaging (Routine) - Closed Specialty Diagnoses / Procedures Referred By Contac t Referred To Contact Cardiology Diagnoses 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) Chest pain, unspecified type Procedures Stress echocardiogram (TTE) exercise with contrast, bubble, strain, and 3D PRN WI ECHO TTHRC R-T 2D W/WO M-MODE COMPLETE REST&ST WI ECHO TTHRC R-T 2D W/WO M-MODE REST&STRS CONT ECG WI DOPPLER ECHOCARD PULSE WAVE W/SPECTRAL DISPLAY WI DOP ECHOCARD COLOR FLOW VELOCITY MAPPING WI CV STRS TST XERS&/OR RX CONT ECG W/O I&R WI CV STRS TST XERS&/OR RX CONT ECG TRCG ONLY WI CV STRS TST XERS&/OR RX CONT ECG I&R ONLY Horace Martinez, PULLER OVER - DISASTER RECOVERY MANAGER [address] [place] [address] Phone: tel: fax: Referral ID Status Reason Start Date Expiration Date Visits Re quested Visits Authorized [id number] Closed 06/11/2024 06/11/[address] 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 for visit Narrative* Diagnostic Procedure Only (Routine) - Closed Specialty Diagnoses / Procedures Referred By Contac t Referred To Contact XR IMAGING Diagnoses DDD (degenerative disc disease), cervical Procedures XR CERV OTHER 4V AP/LAT/OBL RADEX SPINE CERVICAL 4 OR 5 VIEWS Nan Ng PA-C [address] [place] [address] [place] [address] Referral ID Status Reason Start Date Expiration Date V isits Requested Visits Authorized [id number] Closed Auto-Generate d Referral 08/12/2024 09/11/2025 1 1 [facility] for visit Narrative* Diagnostic Procedure Only (Routine) - Closed Specialty Diagnoses / Procedures Referred By Contac t Referred To Contact XR IMAGING Diagnoses Pain Procedures XR SHOULDER GENERAL 3V OR MORE AP/TRUE AP/OTHER LEFT RADEX SHOULDER COMPLETE MINIMUM 2 VIEWS Nan Ng PA-C [address] [place] [address] [place] [address] Referral ID Status Reason Start Date Expiration Date V isits Requested Visits Authorized [id number] Closed Auto-Generate d Referral 08/09/2024 09/08/2025 1 1 [facility] for visit Narrative* Outpatient Procedure (Routine) - Closed Specialty Diagnoses / Procedures Referred By Contac t Referred To Contact [facility] Diagnoses Melena Nausea Heart burn Procedures EGD DIAGNOSTIC ESOPHAGOGASTRODUODENOSC OPY TRANSORAL DIAGNOSTIC Saray Marinelli APRN.DISASTER RECOVERY MANAGER [address] [place] [address] Phone: tel: fax: [facility] [address] [place] [address] Referral ID Status Reason Start Date Expiration Date V isits Requested Visits Authorized [id number] Closed Auto-Generate d Referral 03/21/2025 03/21/2026 1 1 [facility] Summary Purpose Family History No Family History Records Found Relationship Condition Age at Onset Recorded Date/T carina Not Specified Coronary artery disease Unknown Cardiac disease Unknown Myocardial infarction Unknown Malignant neoplasm of breast Unknown Hypertension Unknown Advance Directives No Advanced Directives Records Found Date Activated Date Inactivated Comments 07/25/2024 12:29 PM 07/31/2024 2:11 PM Date Activated Date Inactivated Comments 07/05/2024 8:28 AM 07/05/2024 5:19 PM Documents on File Type Date Recorded Patient Sander Setter Expl anation ACP-Advance Directive ACP-Power of Business Relations Manager Latest Code Status on File Code Status Date Activated Date Inactivated Comments Full Code 07/30/2018 3:32 AM 07/30/2018 6:57 PM Documents on File Type Date Recorded Patient Sander Setter Expl anation Advance Directive(s) 08/03/2021 6:50 AM Documents on File Type Date Recorded Patient Sander Setter Expl anation Advance Directive(s) 02/09/2024 7:32 AM Documents on File Type Date Recorded Patient Sander Setter Expl anation Advance Directive(s) 02/09/2024 7:32 AM Date Activated Date Inactivated Comments 07/05/2024 8:28 AM 07/05/2024 5:19 PM Date Activated Date Inactivated Comments 07/05/2024 8:28 AM 07/05/2024 5:19 PM Date Activated Date Inactivated Comments 07/25/2024 12:29 PM Date Activated Date Inactivated Comments 07/25/2024 12:29 PM 07/31/2024 2:11 PM Date Activated Date Inactivated Comments 07/05/2024 8:28 AM 07/05/2024 5:19 PM Assessments Diagnosis Coronary artery disease involving chilkoot coronary artery of chilkoot heart without angina pectoris Essential hypertension Unspecified essential hypertension Chief Complaint and Reason for Visit Chief Complaint SKIN Chief Complaint Admit Date SKIN March 12, 2025 8: 50am Health Concerns Infection Onset Date Last Indicated Resolved Time COVID-19 Rule-Out 12/02/2022 12/02/2022 Infection Onset Date Last Indicated Resolved Time COVID-19 Confirmed 12/02/2022 12/02/2022 Reason for Referral Specialty Diagnoses / Procedures Referred By Contac t Referred To Contact CT IMAGING Diagnoses Lung nodules Procedures CT LUNG FOLLOWUP WO IVCON DIAGNOSTIC COMPUTED TOMOGRAPHY THORAX W/O CNTRST Charo Tsai, PULLER OVER.DISASTER RECOVERY MANAGER [address] [place] [address] Ct Imaging [id number] Referral ID Status Reason Start Date Expiration Date V isits Requested Visits Authorized [id number] Closed Auto-Generate d Referral 08/03/2023 09/01/2024 1 1 Specialty Diagnoses / Procedures Referred By Contac t Referred To Contact CT IMAGING Diagnoses Lung nodule Procedures CT CHEST WO IVCON DIAGNOSTIC COMPUTED TOMOGRAPHY THORAX W/O CNTRST Rene More MD [address] [address] [address] [place] [id number] Imaging [place] [address] Referral ID Status Reason Start Date Expiration Date Visits Requested Visits Authorized [id number] Pending Review Auto-Generat ed Referral 11/13/2023 12/12/2024 1 1 Specialty Diagnoses / Procedures Referred By Contac t Referred [facility] Diagnoses Lung nodule Procedures ECG COMPLETE ECG ROUTINE ECG W/LEAST 12 LDS W/I&R Rene More MD [address] [facility] [address] [place] [address] [place] [address] Referral ID Status Reason Start Date Expiration Date Visits Requested Visits Authorized [id number] Pending Review Auto-Generat ed Referral 11/13/2023 11/12/2024 1 1 Specialty Diagnoses / Procedures Referred By Contac t Referred To Contact Diagnoses Pre-op evaluation Mixed hyperlipidemia Essential hypertension Coronary artery disease involving chilkoot coronary artery of chilkoot heart without angina pectoris Abdominal aortic aneurysm (AAA) without rupture, unspecified part (HCC) Thrombocytopenia (HCC) At risk for sleep apnea Penicillin allergy Personal history of allergy to penicillin Procedures CONSULT TO SLEEP MEDICINE - ADULT OFFICE/OUTPATIENT [facility] 60 MINUTES Rosana Villafuerte, PULLER OVER.DISASTER RECOVERY MANAGER [address] [place] [address] Referral ID Status Reason Start Date Expiration Date Visits Requested Visits Authorized [id number] Authorized PCP Requested Referral 11/29/2023 11/28/2024 1 1 Specialty Diagnoses / Procedures Referred By Contac t Referred To Contact Radiation Oncology Diagnoses Multiple lung nodules Former tobacco use Procedures RAD/ONC CONSULT OFFICE/OUTPATIENT [facility] 60 MINUTES Charo Tsai, PULLER OVER.DISASTER RECOVERY MANAGER [address] [place] [address] Referral ID Status Reason Start Date Expiration Date Visits Requested Visits Authorized [id number] Authorized PCP Requested Referral 12/22/2023 12/21/2024 1 1 Specialty Diagnoses / Procedures Referred By Contac t Referred To Contact Cardiothoracic Surgery Diagnoses Multiple lung nodules Former tobacco use Procedures CONSULT TO CARDIOTHORACIC SURGERY Charo Tsai, PULLER OVER.DISASTER RECOVERY MANAGER [address] [place] [address] Referral ID Status Reason Start Date Expiration Date Visits Requested Visits Authorized [id number] Ref Not Required PCP Requested Referral 12/22/2023 12/21/2024 1 1 Specialty Diagnoses / Procedures Referred By Contac t Referred To Contact Diagnoses Acute post-operative pain History of thoracotomy Charlene Amaya PULLER OVER.DISASTER RECOVERY MANAGER [address] [place] [address] Referral ID Status Reason Start Date Expiration Date Visits Re quested Visits Authorized [id number] Closed 1 1 Specialty Diagnoses / Procedures Referred By Contac t Referred To Contact Oncology Diagnoses Adenocarcinoma, lung, right (HCC) Procedures CONSULT TO ONCOLOGY OFFICE/OUTPATIENT [facility] 60 MINUTES Shaylee Woods, PULLER OVER.DISASTER RECOVERY MANAGER [address] [place] [address] Referral ID Status Reason Start Date Expiration Date Visits Requested Visits Authorized [id number] Authorized PCP Requested Referral 02/29/2024 02/28/2025 1 1 Specialty Diagnoses / Procedures Referred By Contac t Referred To Contact CT IMAGING Diagnoses Malignant neoplasm of unspecified part of unspecified bronchus or lung (HCC) Procedures CT CHEST W IVCON DIAGNOSTIC COMPUTED TOMOGRAPHY THORAX W/CONTRAST Analy Dumont, DO [address] [place] [address] [place] [address] Referral ID Status Reason Start Date Expiration Date Visits Requested Visits Authorized [id number] Authorized Auto-Generat ed Referral 03/20/2024 04/19/2025 1 1 Specialty Diagnoses / Procedures Referred By Contac t Referred To Contact Vascular Medicine Diagnoses PAD (peripheral artery disease) (HCC) Cold extremity without peripheral vascular disease Procedures CONSULT TO VASCULAR MEDICINE OFFICE/OUTPATIENT [facility] 60 MINUTES Tima Tello MD [address] [place] [address] Referral ID Status Reason Start Date Expiration Date Visits Requested Visits Authorized [id number] Authorized PCP Requested Referral 04/04/2024 04/04/2025 1 1 Specialty Diagnoses / Procedures Referred By Contac t Referred To Contact [facility] Diagnoses DDD (degenerative disc disease), cervical Chronic left shoulder pain Procedures CONSULT TO PHYSICAL THERAPY PHYSICAL THERAPY EVALUATION [facility] 45 MINS Nan Ng PA-C [address] [place] [address] [facility] [address] [place] [address] Referral ID Status Reason Start Date Expiration Date Visits Requested Visits Authorized [id number] Authorized PCP Requested Referral Auto-Generate d Referral 08/12/2024 08/12/2025 99 99 Specialty Diagnoses / Procedures Referred By Contac t Referred To Contact XR IMAGING Diagnoses DDD (degenerative disc disease), cervical Procedures XR CERV OTHER 4V AP/LAT/OBL RADEX SPINE CERVICAL 4 OR 5 VIEWS Nan Ng PA-C [address] [place] [address] [place] [address] Referral ID Status Reason Start Date Expiration Date V isits Requested Visits Authorized [id number] Closed Auto-Generate d Referral 08/12/2024 09/11/2025 1 1 Additional Source Comments (unrecognized sect ion and content) No Status Records FoundNo Status Records FoundNo Status Records FoundNo Status Records FoundNo Status Records FoundNo Status Records FoundNo Status Records FoundNo Status Records Found INFORMATION SOURCE (unrecogn ized section and content) DATE CREATED AUTHOR 10/05/2018 [facility] ([place]) DATE CREATED AUTHOR AUTHOR'S ORGANIZ ATION 10/04/2020 [facility] DATE CREATED AUTHOR AUTHOR'S ORGANIZ ATION 12/20/2023 [facility] DATE CREATED AUTHOR AUTHOR'S ORGANIZ ATION 12/29/2023 [facility] DATE CREATED AUTHOR AUTHOR'S ORGANIZ ATION 03/19/2024 [facility] DATE CREATED AUTHOR AUTHOR'S ORGANIZ ATION 04/15/2025 [facility] DATE CREATED AUTHOR AUTHOR'S ORGANIZ ATION 06/04/2025 [facility] DATE CREATED AUTHOR AUTHOR'S ORGANIZ ATION 06/12/[address] [facility] Source Comments (unrecognize d section and content) In the event this informatio n is protected by the Federal Confidentiality of Alcohol and Drug Abuse Patient Records regulations: The Federal rules restrict any use of the information to criminally investigate or prosecute any alcohol or drug abuse patient.[facility] the event this information is protected by the Federal Confidentiality of Alcohol and Drug Abuse Patient Records regulations: The Federal rules restrict any use of the information to criminally investigate or prosecute any alcohol or drug abuse patient.[facility] CenterIn the event this information is protected by the Federal Confidentiality of Alcohol and Drug Abuse Patient Records regulations: The Federal rules restrict any use of the information to criminally investigate or prosecute any alcohol or drug abuse patient.[facility] CenterIn the event this information is protected by the Federal Confidentiality of Alcohol and Drug Abuse Patient Records regulations: The Federal rules restrict any use of the information to criminally investigate or prosecute any alcohol or drug abuse patient.[facility] CenterIn the event this information is protected by the Federal Confidentiality of Alcohol and Drug Abuse Patient Records regulations: The Federal rules restrict any use of the information to criminally investigate or prosecute any alcohol or drug abuse patient.[facility] CenterIn the event this information is protected by the Federal Confidentiality of Alcohol and Drug Abuse Patient Records regulations: The Federal rules restrict any use of the information to criminally investigate or prosecute any alcohol or drug abuse patient.[facility] CenterIn the event this information is protected by the Federal Confidentiality of Alcohol and Drug Abuse Patient Records regulations: The Federal rules restrict any use of the information to criminally investigate or prosecute any alcohol or drug abuse patient.[facility] CenterIn the event this information is protected by the Federal Confidentiality of Alcohol and Drug Abuse Patient Records regulations: The Federal rules restrict any use of the information to criminally investigate or prosecute any alcohol or drug abuse patient.[facility] CenterIn the event this information is protected by the Federal Confidentiality of Alcohol and Drug Abuse Patient Records regulations: The Federal rules restrict any use of the information to criminally investigate or prosecute any alcohol or drug abuse patient.[facility] CenterIn the event this information is protected by the Federal Confidentiality of Alcohol and Drug Abuse Patient Records regulations: The Federal rules restrict any use of the information to criminally investigate or prosecute any alcohol or drug abuse patient.[facility] CenterIn the event this information is protected by the Federal Confidentiality of Alcohol and Drug Abuse Patient Records regulations: The Federal rules restrict any use of the information to criminally investigate or prosecute any alcohol or drug abuse patient.[facility] CenterIn the event this information is protected by the Federal Confidentiality of Alcohol and Drug Abuse Patient Records regulations: The Federal rules restrict any use of the information to criminally investigate or prosecute any alcohol or drug abuse patient.[facility] CenterIn the event this information is protected by the Federal Confidentiality of Alcohol and Drug Abuse Patient Records regulations: The Federal rules restrict any use of the information to criminally investigate or prosecute any alcohol or drug abuse patient.[facility] CenterIn the event this information is protected by the Federal Confidentiality of Alcohol and Drug Abuse Patient Records regulations: The Federal rules restrict any use of the information to criminally investigate or prosecute any alcohol or drug abuse patient.[facility] CenterIn the event this information is protected by the Federal Confidentiality of Alcohol and Drug Abuse Patient Records regulations: The Federal rules restrict any use of the information to criminally investigate or prosecute any alcohol or drug abuse patient.[facility] CenterIn the event this information is protected by the Federal Confidentiality of Alcohol and Drug Abuse Patient Records regulations: The Federal rules restrict any use of the information to criminally investigate or prosecute any alcohol or drug abuse patient.[facility] CenterIn the event this information is protected by the Federal Confidentiality of Alcohol and Drug Abuse Patient Records regulations: The Federal rules restrict any use of the information to criminally investigate or prosecute any alcohol or drug abuse patient.[facility] CenterIn the event this information is protected by the Federal Confidentiality of Alcohol and Drug Abuse Patient Records regulations: The Federal rules restrict any use of the information to criminally investigate or prosecute any alcohol or drug abuse patient.[facility] CenterIn the event this information is protected by the Federal Confidentiality of Alcohol and Drug Abuse Patient Records regulations: The Federal rules restrict any use of the information to criminally investigate or prosecute any alcohol or drug abuse patient.[facility] CenterIn the event this information is protected by the Federal Confidentiality of Alcohol and Drug Abuse Patient Records regulations: The Federal rules restrict any use of the information to criminally investigate or prosecute any alcohol or drug abuse patient.[facility] CenterIn the event this information is protected by the Federal Confidentiality of Alcohol and Drug Abuse Patient Records regulations: The Federal rules restrict any use of the information to criminally investigate or prosecute any alcohol or drug abuse patient.[facility] CenterIn the event this information is protected by the Federal Confidentiality of Alcohol and Drug Abuse Patient Records regulations: The Federal rules restrict any use of the information to criminally investigate or prosecute any alcohol or drug abuse patient.[facility] CenterIn the event this information is protected by the Federal Confidentiality of Alcohol and Drug Abuse Patient Records regulations: The Federal rules restrict any use of the information to criminally investigate or prosecute any alcohol or drug abuse patient.[facility] CenterIn the event this information is protected by the Federal Confidentiality of Alcohol and Drug Abuse Patient Records regulations: The Federal rules restrict any use of the information to criminally investigate or prosecute any alcohol or drug abuse patient.[facility] CenterIn the event this information is protected by the Federal Confidentiality of Alcohol and Drug Abuse Patient Records regulations: The Federal rules restrict any use of the information to criminally investigate or prosecute any alcohol or drug abuse patient.[facility] CenterIn the event this information is protected by the Federal Confidentiality of Alcohol and Drug Abuse Patient Records regulations: The Federal rules restrict any use of the information to criminally investigate or prosecute any alcohol or drug abuse patient.[facility] CenterIn the event this information is protected by the Federal Confidentiality of Alcohol and Drug Abuse Patient Records regulations: The Federal rules restrict any use of the information to criminally investigate or prosecute any alcohol or drug abuse patient.[facility] the event this information is protected by the Federal Confidentiality of Alcohol and Drug Abuse Patient Records regulations: The Federal rules restrict any use of the information to criminally investigate or prosecute any alcohol or drug abuse patient.[facility] CenterIn the event this information is protected by the Federal Confidentiality of Alcohol and Drug Abuse Patient Records regulations: The Federal rules restrict any use of the information to criminally investigate or prosecute any alcohol or drug abuse patient.[facility] CenterIn the event this information is protected by the Federal Confidentiality of Alcohol and Drug Abuse Patient Records regulations: The Federal rules restrict any use of the information to criminally investigate or prosecute any alcohol or drug abuse patient.[facility]In the event this information is protected by the Federal Confidentiality of Alcohol and Drug Abuse Patient Records regulations: The Federal rules restrict any use of the information to criminally investigate or prosecute any alcohol or drug abuse patient.[facility] CenterIn the event this information is protected by the Federal Confidentiality of Alcohol and Drug Abuse Patient Records regulations: The Federal rules restrict any use of the information to criminally investigate or prosecute any alcohol or drug abuse patient.[facility] CenterIn the event this information is protected by the Federal Confidentiality of Alcohol and Drug Abuse Patient Records regulations: The Federal rules restrict any use of the information to criminally investigate or prosecute any alcohol or drug abuse patient.[facility] CenterIn the event this information is protected by the Federal Confidentiality of Alcohol and Drug Abuse Patient Records regulations: The Federal rules restrict any use of the information to criminally investigate or prosecute any alcohol or drug abuse patient.[facility] CenterIn the event this information is protected by the Federal Confidentiality of Alcohol and Drug Abuse Patient Records regulations: The Federal rules restrict any use of the information to criminally investigate or prosecute any alcohol or drug abuse patient.[facility] CenterIn the event this information is protected by the Federal Confidentiality of Alcohol and Drug Abuse Patient Records regulations: The Federal rules restrict any use of the information to criminally investigate or prosecute any alcohol or drug abuse patient.[facility] CenterIn the event this information is protected by the Federal Confidentiality of Alcohol and Drug Abuse Patient Records regulations: The Federal rules restrict any use of the information to criminally investigate or prosecute any alcohol or drug abuse patient.[facility] CenterIn the event this information is protected by the Federal Confidentiality of Alcohol and Drug Abuse Patient Records regulations: The Federal rules restrict any use of the information to criminally investigate or prosecute any alcohol or drug abuse patient.[facility] CenterIn the event this information is protected by the Federal Confidentiality of Alcohol and Drug Abuse Patient Records regulations: The Federal rules restrict any use of the information to criminally investigate or prosecute any alcohol or drug abuse patient.[facility] CenterIn the event this information is protected by the Federal Confidentiality of Alcohol and Drug Abuse Patient Records regulations: The Federal rules restrict any use of the information to criminally investigate or prosecute any alcohol or drug abuse patient.[facility] CenterIn the event this information is protected by the Federal Confidentiality of Alcohol and Drug Abuse Patient Records regulations: The Federal rules restrict any use of the information to criminally investigate or prosecute any alcohol or drug abuse patient.[facility] CenterIn the event this information is protected by the Federal Confidentiality of Alcohol and Drug Abuse Patient Records regulations: The Federal rules restrict any use of the information to criminally investigate or prosecute any alcohol or drug abuse patient.[facility] CenterIn the event this information is protected by the Federal Confidentiality of Alcohol and Drug Abuse Patient Records regulations: The Federal rules restrict any use of the information to criminally investigate or prosecute any alcohol or drug abuse patient.[facility] CenterIn the event this information is protected by the Federal Confidentiality of Alcohol and Drug Abuse Patient Records regulations: The Federal rules restrict any use of the information to criminally investigate or prosecute any alcohol or drug abuse patient.[facility] CenterIn the event this information is protected by the Federal Confidentiality of Alcohol and Drug Abuse Patient Records regulations: The Federal rules restrict any use of the information to criminally investigate or prosecute any alcohol or drug abuse patient.[facility] CenterIn the event this information is protected by the Federal Confidentiality of Alcohol and Drug Abuse Patient Records regulations: The Federal rules restrict any use of the information to criminally investigate or prosecute any alcohol or drug abuse patient.[facility] CenterIn the event this information is protected by the Federal Confidentiality of Alcohol and Drug Abuse Patient Records regulations: The Federal rules restrict any use of the information to criminally investigate or prosecute any alcohol or drug abuse patient.[facility] CenterIn the event this information is protected by the Federal Confidentiality of Alcohol and Drug Abuse Patient Records regulations: The Federal rules restrict any use of the information to criminally investigate or prosecute any alcohol or drug abuse patient.[facility] CenterIn the event this information is protected by the Federal Confidentiality of Alcohol and Drug Abuse Patient Records regulations: The Federal rules restrict any use of the information to criminally investigate or prosecute any alcohol or drug abuse patient.[facility] CenterIn the event this information is protected by the Federal Confidentiality of Alcohol and Drug Abuse Patient Records regulations: The Federal rules restrict any use of the information to criminally investigate or prosecute any alcohol or drug abuse patient.[facility] CenterIn the event this information is protected by the Federal Confidentiality of Alcohol and Drug Abuse Patient Records regulations: The Federal rules restrict any use of the information to criminally investigate or prosecute any alcohol or drug abuse patient.[facility] CenterIn the event this information is protected by the Federal Confidentiality of Alcohol and Drug Abuse Patient Records regulations: The Federal rules restrict any use of the information to criminally investigate or prosecute any alcohol or drug abuse patient.[facility] CenterIn the event this information is protected by the Federal Confidentiality of Alcohol and Drug Abuse Patient Records regulations: The Federal rules restrict any use of the information to criminally investigate or prosecute any alcohol or drug abuse patient.[facility] CenterIn the event this information is protected by the Federal Confidentiality of Alcohol and Drug Abuse Patient Records regulations: The Federal rules restrict any use of the information to criminally investigate or prosecute any alcohol or drug abuse patient.[facility] Medical CenterIn the event this information is protected by the Federal Confidentiality of Alcohol and Drug Abuse Patient Records regulations: The Federal rules restrict any use of the information to criminally investigate or prosecute any alcohol or drug abuse patient.[facility] CenterIn the event this information is protected by the Federal Confidentiality of Alcohol and Drug Abuse Patient Records regulations: The Federal rules restrict any use of the information to criminally investigate or prosecute any alcohol or drug abuse patient.[facility] CenterIn the event this information is protected by the Federal Confidentiality of Alcohol and Drug Abuse Patient Records regulations: The Federal rules restrict any use of the information to criminally investigate or prosecute any alcohol or drug abuse patient.[facility] CenterIn the event this information is protected by the Federal Confidentiality of Alcohol and Drug Abuse Patient Records regulations: The Federal rules restrict any use of the information to criminally investigate or prosecute any alcohol or drug abuse patient.[facility] CenterIn the event this information is protected by the Federal Confidentiality of Alcohol and Drug Abuse Patient Records regulations: The Federal rules restrict any use of the information to criminally investigate or prosecute any alcohol or drug abuse patient.[facility] CenterIn the event this information is protected by the Federal Confidentiality of Alcohol and Drug Abuse Patient Records regulations: The Federal rules restrict any use of the information to criminally investigate or prosecute any alcohol or drug abuse patient.[facility] CenterIn the event this information is protected by the Federal Confidentiality of Alcohol and Drug Abuse Patient Records regulations: The Federal rules restrict any use of the information to criminally investigate or prosecute any alcohol or drug abuse patient.[facility] CenterIn the event this information is protected by the Federal Confidentiality of Alcohol and Drug Abuse Patient Records regulations: The Federal rules restrict any use of the information to criminally investigate or prosecute any alcohol or drug abuse patient.[facility] CenterIn the event this information is protected by the Federal Confidentiality of Alcohol and Drug Abuse Patient Records regulations: The Federal rules restrict any use of the information to criminally investigate or prosecute any alcohol or drug abuse patient.[facility] CenterIn the event this information is protected by the Federal Confidentiality of Alcohol and Drug Abuse Patient Records regulations: The Federal rules restrict any use of the information to criminally investigate or prosecute any alcohol or drug abuse patient.[facility] CenterIn the event this information is protected by the Federal Confidentiality of Alcohol and Drug Abuse Patient Records regulations: The Federal rules restrict any use of the information to criminally investigate or prosecute any alcohol or drug abuse patient.[facility] CenterIn the event this information is protected by the Federal Confidentiality of Alcohol and Drug Abuse Patient Records regulations: The Federal rules restrict any use of the information to criminally investigate or prosecute any alcohol or drug abuse patient.[facility] CenterIn the event this information is protected by the Federal Confidentiality of Alcohol and Drug Abuse Patient Records regulations: The Federal rules restrict any use of the information to criminally investigate or prosecute any alcohol or drug abuse patient.[facility] CenterIn the event this information is protected by the Federal Confidentiality of Alcohol and Drug Abuse Patient Records regulations: The Federal rules restrict any use of the information to criminally investigate or prosecute any alcohol or drug abuse patient.[facility] CenterIn the event this information is protected by the Federal Confidentiality of Alcohol and Drug Abuse Patient Records regulations: The Federal rules restrict any use of the information to criminally investigate or prosecute any alcohol or drug abuse patient.[facility] CenterIn the event this information is protected by the Federal Confidentiality of Alcohol and Drug Abuse Patient Records regulations: The Federal rules restrict any use of the information to criminally investigate or prosecute any alcohol or drug abuse patient.[facility] CenterIn the event this information is protected by the Federal Confidentiality of Alcohol and Drug Abuse Patient Records regulations: The Federal rules restrict any use of the information to criminally investigate or prosecute any alcohol or drug abuse patient.[facility] CenterIn the event this information is protected by the Federal Confidentiality of Alcohol and Drug Abuse Patient Records regulations: The Federal rules restrict any use of the information to criminally investigate or prosecute any alcohol or drug abuse patient.[facility] CenterIn the event this information is protected by the Federal Confidentiality of Alcohol and Drug Abuse Patient Records regulations: The Federal rules restrict any use of the information to criminally investigate or prosecute any alcohol or drug abuse patient.[facility] CenterIn the event this information is protected by the Federal Confidentiality of Alcohol and Drug Abuse Patient Records regulations: The Federal rules restrict any use of the information to criminally investigate or prosecute any alcohol or drug abuse patient.[facility] CenterIn the event this information is protected by the Federal Confidentiality of Alcohol and Drug Abuse Patient Records regulations: The Federal rules restrict any use of the information to criminally investigate or prosecute any alcohol or drug abuse patient.[facility] CenterIn the event this information is protected by the Federal Confidentiality of Alcohol and Drug Abuse Patient Records regulations: The Federal rules restrict any use of the information to criminally investigate or prosecute any alcohol or drug abuse patient.[facility] CenterIn the event this information is protected by the Federal Confidentiality of Alcohol and Drug Abuse Patient Records regulations: The Federal rules restrict any use of the information to criminally investigate or prosecute any alcohol or drug abuse patient.[facility] the event this information is protected by the Federal Confidentiality of Alcohol and Drug Abuse Patient Records regulations: The Federal rules restrict any use of the information to criminally investigate or prosecute any alcohol or drug abuse patient.[facility] CenterIn the event this information is protected by the Federal Confidentiality of Alcohol and Drug Abuse Patient Records regulations: The Federal rules restrict any use of the information to criminally investigate or prosecute any alcohol or drug abuse patient.[facility] CenterIn the event this information is protected by the Federal Confidentiality of Alcohol and Drug Abuse Patient Records regulations: The Federal rules restrict any use of the information to criminally investigate or prosecute any alcohol or drug abuse patient.[facility]In the event this information is protected by the Federal Confidentiality of Alcohol and Drug Abuse Patient Records regulations: The Federal rules restrict any use of the information to criminally investigate or prosecute any alcohol or drug abuse patient.[facility] CenterIn the event this information is protected by the Federal Confidentiality of Alcohol and Drug Abuse Patient Records regulations: The Federal rules restrict any use of the information to criminally investigate or prosecute any alcohol or drug abuse patient.[facility] CenterIn the event this information is protected by the Federal Confidentiality of Alcohol and Drug Abuse Patient Records regulations: The Federal rules restrict any use of the information to criminally investigate or prosecute any alcohol or drug abuse patient.[facility] CenterIn the event this information is protected by the Federal Confidentiality of Alcohol and Drug Abuse Patient Records regulations: The Federal rules restrict any use of the information to criminally investigate or prosecute any alcohol or drug abuse patient.[facility] CenterIn the event this information is protected by the Federal Confidentiality of Alcohol and Drug Abuse Patient Records regulations: The Federal rules restrict any use of the information to criminally investigate or prosecute any alcohol or drug abuse patient.[facility] CenterIn the event this information is protected by the Federal Confidentiality of Alcohol and Drug Abuse Patient Records regulations: The Federal rules restrict any use of the information to criminally investigate or prosecute any alcohol or drug abuse patient.[facility] Reason for Visit (unrecogniz ed section and content) Reason Comments Radiology CT Specialty Diagnoses / Procedures Referred By Reyes grimes Referred To Contact CT IMAGING Diagnoses Lung nodules Procedures CT LUNG FOLLOWUP WO IVCON DIAGNOSTIC COMPUTED TOMOGRAPHY THORAX W/O CNTRST Charo Tsai, PULLER OVER.DISASTER RECOVERY MANAGER [id number] [facility] [place] [address] Referral ID Status Reason Start Date Expiration Date V isits Requested Visits Authorized [id number] Closed Auto-Generate d Referral 08/03/2023 09/01/2024 1 1 Reason Comments F/U 6 months Reason Comments Blood Pressure Check Reason Comments Results Reason Comments Follow-up 2 year follow-up Reason Comments Cough Chills, bodyaches, H A x2.5 days Reason Onset Date Comments Page out 12/03/2022 Reason Comments Radiology [place] Specialty Diagnoses / Procedures Referred By Reyes grimes Referred To Contact US IMAGING Diagnoses Abdominal aortic aneurysm (AAA) without rupture, unspecified part (HCC) Procedures US ABD AORTA US RETROPERITONEAL REAL TIME W/IMAGE LIMITED Tima Tello MD [address] [place] [address] [place] [address] Referral ID Status Reason Start Date Expiration Date V isits Requested Visits Authorized [id number] Closed Auto-Generate d Referral 06/09/2023 07/08/2024 1 1 Reason Comments Follow Up Reason Comments Bronchoscopy Scheduling Reason Comments Appointment Reason Comments Consult Reason Comments Spirometry Specialty Diagnoses / Procedures Referred By Contac t Referred To Contact [facility] Diagnoses Multiple lung nodules Procedures SPIROMETRY WITH DILATOR IF OBSTRUCTED BRNCDILAT RSPSE SPMTRY PRE&POST-BRNCDILAT ADMN Charo Tsai, SESAR.DISASTER RECOVERY MANAGER [address] [place] [address] [address] Referral ID Status Reason Start Date Expiration Date V isits Requested Visits Authorized [id number] Closed Auto-Generate d Referral 11/06/2023 12/05/2024 1 1 Specialty Diagnoses / Procedures Referred By Contac t Referred To Contact [facility] [place] Diagnoses Multiple lung nodules Procedures SIX MINUTE WALK CARDIOPULMONARY EXERCISE STRESS Charo Tsai, SESAR.DISASTER RECOVERY MANAGER [address] [place] [address] [address] Referral ID Status Reason Start Date Expiration Date V isits Requested Visits Authorized [id number] Closed Auto-Generate d Referral 11/06/2023 12/05/2024 1 1 Specialty Diagnoses / Procedures Referred By Contac t Referred To Contact [facility] [place] Diagnoses Multiple lung nodules Procedures LUNG VOLUMES Charo Tsai, PULLER OVER.DISASTER RECOVERY MANAGER [address] [place] [address] [address] Referral ID Status Reason Start Date Expiration Date V isits Requested Visits Authorized [id number] Closed Auto-Generate d Referral 11/06/2023 12/05/2024 1 1 Specialty Diagnoses / Procedures Referred By Contac t Referred To Contact [facility] Diagnoses Multiple lung nodules Procedures LUNG DIFFUSION CAPACITY (DLCO) DIFFUSING CAPACITY Charo Tsai, SESAR.DISASTER RECOVERY MANAGER [address] [place] [address] Respiratory [place] [address] [place] [address] Referral ID Status Reason Start Date Expiration Date V isits Requested Visits Authorized [id number] Closed Auto-Generate d Referral 11/06/2023 12/05/2024 1 1 Reason Comments Medicare Wellness Exam Reason Comments Radiology CT Specialty Diagnoses / Procedures Referred By Contac t Referred To Contact CT IMAGING Diagnoses Lung nodule Procedures CT CHEST WO IVCON DIAGNOSTIC COMPUTED TOMOGRAPHY THORAX W/O CNTRST Rene More MD [address] [place] [address] Ct Imaging [place] [address] Referral ID Status Reason Start Date Expiration Date V isits Requested Visits Authorized [id number] Closed Auto-Generate d Referral 11/13/2023 12/12/2024 1 1 Reason Comments Results Reason Comments Consult Specialty Diagnoses / Procedures Referred By Contac t Referred To Contact Radiation Oncology Diagnoses Multiple lung nodules Former tobacco use Procedures RAD/ONC CONSULT OFFICE/OUTPATIENT [facility] MDM 60 MINUTES Charo Tsai, SESAR.DISASTER RECOVERY MANAGER [address] [place] [address] Referral ID Status Reason Start Date Expiration Date V isits Requested Visits Authorized [id number] Closed PCP Requested Referral 12/22/2023 12/21/2024 1 1 Reason Comments New Patient Evaluation Rfd by Charo rodríguez for Lung Nodules Reason Comments Cardiac Clearance Received Reason Comments Schedule Surgery Orders Reason Onset Date Comments Med Refill 01/27/2024 Reason Comments Established Patient PAT - lung surgery Reason Onset Date Comments Med Refill 01/30/2024 Reason Comments Annual Exam Cardiac Clearance Reason Comments Medication Request Reason Comments Patient Update Pain medication Reason Comments Post Op 02/09/24 Rt VATS, Upp er Lobectomy Reason Comments Referral Information Reason Comments Follow Up 3 month Reason Comments New Patient Specialty Diagnoses / Procedures Referred By Contac t Referred To Contact Oncology Diagnoses Adenocarcinoma, lung, right (HCC) Procedures CONSULT TO ONCOLOGY OFFICE/OUTPATIENT NEW HIGH MDM 60 MINUTES Shaylee Woods, PULLER OVER.DISASTER RECOVERY MANAGER 1 [facility] [address] [place] [address] Referral ID Status Reason Start Date Expiration Date V isits Requested Visits Authorized [id number] Closed PCP Requested Referral 02/29/2024 02/28/2025 1 1 Reason Comments Results Reason Comments Trauma Spider bite on left leg x 2 days Reason Comments Patient Question Reason Comments Follow Up Left lower extremity spider bite Reason Comments Follow Up Reason Comments fax referral to [facility] Reason Comments Lung Cancer Reason Onset Date Comments Shoulder Pain 06/08/2024 Reason Comments Follow Up 3 monthER f/u Monday , minor chest pain, left arm pain, bad taste. Went to [facility] Reason Comments Hospital Follow-up Chest Pain Reason Onset Date Comments Orders 06/24/2024 Reason Onset Date Comments Surgery Scheduling 07/12/2024 Reason Onset Date Comments Release of Information 08/06/2024 Reason Comments New Pain Numbness Reason Comments Follow-up Reason Onset Date Comments BPCI Outreach 08/16/2024 Reason Onset Date Comments Transitional Care Management Outreach 08/20/2024 Telephone Visit 08/20/2024 Reason Onset Date Comments Med Refill 08/26/2024 Specialty Diagnoses / Procedures Referred By Reyes grimes Referred To Contact CT IMAGING Diagnoses Malignant neoplasm of unspecified part of unspecified bronchus or lung (HCC) Procedures CT CHEST W IVCON DIAGNOSTIC COMPUTED TOMOGRAPHY THORAX W/CONTRAST Analy Dumont, DO [address] [place] [address] Phone: tel: fax: [place] [address] Referral ID Status Reason Start Date Expiration Date V isits Requested Visits Authorized [id number] Closed Auto-Generate d Referral 03/20/2024 04/19/2025 1 1 Reason Comments Established Patient Reason Onset Date Comments Results 09/12/2024 Reason Comments F/U 3 Month Reason Comments Established Patient 4 month follow up Reason Onset Date Comments Transitional Care Management Outreach 10/01/2024 Telephone Visit 10/01/2024 Reason Comments Med Refill Reason Onset Date Comments Transitional Care Management Outreach 10/25/2024 Telephone Visit 10/25/2024 Reason Comments Annual Exam Specialty Diagnoses / Procedures Referred By Contac t Referred To Contact CT IMAGING Diagnoses Malignant neoplasm of unspecified part of unspecified bronchus or lung (HCC) S/P lobectomy of lung Procedures CT CHEST W IVCON DIAGNOSTIC COMPUTED TOMOGRAPHY THORAX W/CONTRAST Hakan Blackwell [address] [place] [address] Phone: tel: fax: [place] [address] Referral ID Status Reason Start Date Expiration Date V isits Requested Visits Authorized [id number] Closed Auto-Generate d Referral 03/09/2025 10/09/2025 1 1 Reason Comments Established Patient Reason Onset Date Comments Population Health Navigation Outreach 03/18/2025 ACO WORKBEMEApril MAHARAJ PCSA Reason Comments Constipation Rectal Problem Reason Onset Date Comments Results 03/20/2025 Reason Comments Rectal Problem blood in stool Specialty Diagnoses / Procedures Referred By Contac t Referred To Contact General Surgery Diagnoses Chronic constipation Melena Procedures OFFICE/OUTPATIENT [facility] 60 MINUTES Tima Tello MD [address] [place] [address] Phone: tel: fax: Referral ID Status Reason Start Date Expiration Date V isits Requested Visits Authorized [id number] Closed PCP Requested Referral 03/19/2025 03/19/2026 1 1 Reason Comments Established Patient 6 month follow up Specialty Diagnoses / Procedures Referred By Contac t Referred To Contact US IMAGING Diagnoses Nausea RUQ abdominal pain Procedures US ABD RIGHT UPPER QUADRANT US ABDOMINAL REAL TIME W/IMAGE LIMITED Saray Marinelli APRN.DISASTER RECOVERY MANAGER [address] [place] [address] Phone: tel: fax: [place] [address] Referral ID Status Reason Start Date Expiration Date V isits Requested Visits Authorized [id number] Closed Auto-Generate d Referral 03/21/2025 04/20/2026 1 1 Specialty Diagnoses / Procedures Referred By Contac t Referred To Contact CT IMAGING Diagnoses Melena Generalized abdominal pain Procedures CT ABD/PEL W IVCON CT ABD & PELVIS W/CONTRAST Tima Tello MD [address] [place] [address] Phone: tel: fax: [place] [address] Referral ID Status Reason Start Date Expiration Date V isits Requested Visits Authorized [id number] Closed Auto-Generate d Referral 03/19/2025 04/18/2026 1 1 Reason Onset Date Comments Med Refill 04/14/2025 Reason Comments Follow Up Follow up to colonos copy Reason Comments New Patient Specialty Diagnoses / Procedures Referred By Contac t Referred To Contact Vascular Surgery Diagnoses Atherosclerotic ulcer of aorta Abdominal aortic aneurysm (AAA) without rupture, unspecified part Procedures OFFICE/OUTPATIENT NEW HIGH MDM 60 MINUTES Tima Tello MD [address] [place] [address] Phone: tel: fax: Referral ID Status Reason Start Date Expiration Date V isits Requested Visits Authorized [id number] Closed PCP Requested Referral 04/11/2025 04/11/2026 1 1 Care Teams (unrecognized sec tion and content) Gasoline Engine Inspector Relationship Specialty Start Date End Date Tima Tello MD [address] [place] [address] PCP - General Family Practice 05/07/21 Gasoline Engine Inspector Relationship Specialty Start Date End Date Tima Tello MD [address] [place] [address] PCP - General Family Practice 05/07/21 Gasoline Engine Inspector Relationship Specialty Start Date End Date Tima Tello MD [address] [place] [address] PCP - General Family Practice 05/07/21 Gasoline Engine Inspector Relationship Specialty Start Date End Date Tima Tello MD [address] [place] [address] PCP - General Family Practice 05/07/21 Team Status: Active Member Role Status Dates Dr. Sebastián Doran MD Family Provider Active Dr. Sebastián Doran MD Primary Care Provider Active Team Status: Inactive Member Role Status Dates Dr. Sebastián Doran MD Primary Care Provider Active Dr. Jose Valderrama MD Attending Provider, Jer briggs Active Gasoline Engine Inspector Relationship Specialty Start Date End Date Shayna Shah, DO [address] [phone] PCP - General 04/22/15 Gasoline Engine Inspector Relationship Specialty Start Date End Date Tima Tello MD [address] [place] [address] PCP - General Family Medicine 05/07/21 Gasoline Engine Inspector Relationship Specialty Start Date End Date Tima Tello MD [address] [place] [address] PCP - General Family Medicine 05/07/21 Gasoline Engine Inspector Relationship Specialty Start Date End Date Shayna Shah DO [address] [phone] PCP - General 04/22/15 Gasoline Engine Inspector Relationship Specialty Start Date End Date Shayna Shah DO [address] [phone] PCP - General 04/22/15 Gasoline Engine Inspector Relationship Specialty Start Date End Date Tima Tello MD [address] [place] [address] PCP - General Family Medicine 05/07/21 Gasoline Engine Inspector Relationship Specialty Start Date End Date Tima Tello MD [address] [place] [address] PCP - General Family Medicine 05/07/21 Gasoline Engine Inspector Relationship Specialty Start Date End Date Tima Tello MD [address] [place] [address] PCP - General Family Medicine 05/07/21 Gasoline Engine Inspector Relationship Specialty Start Date End Date Tima Tello MD [address] [place] [address] PCP - General Family Medicine 05/07/21 Gasoline Engine Inspector Relationship Specialty Start Date End Date Tima Tello MD [address] [place] [address] PCP - General Family Medicine 05/07/21 Gasoline Engine Inspector Relationship Specialty Start Date End Date Tima Tello MD [address] [place] [address] PCP - General Family Medicine 05/07/21 Gasoline Engine Inspector Relationship Specialty Start Date End Date Tima Tello MD [address] [place] [address] PCP - General Family Medicine 05/07/21 Gasoline Engine Inspector Relationship Specialty Start Date End Date Tima Tello MD [address] [place] [address] PCP - General Family Medicine 05/07/21 Gasoline Engine Inspector Relationship Specialty Start Date End Date Tima Tello MD [address] [place] [address] PCP - General Family Medicine 05/07/21 Gasoline Engine Inspector Relationship Specialty Start Date End Date Tima Tello MD [address] [place] [address] PCP - General Family Medicine 05/07/21 Gasoline Engine Inspector Relationship Specialty Start Date End Date Tima Tello MD [address] [place] [address] PCP - General Family Medicine 05/07/21 Gasoline Engine Inspector Relationship Specialty Start Date End Date Tima Tello MD [address] [place] [address] PCP - General Family Medicine 05/07/21 Gasoline Engine Inspector Relationship Specialty Start Date End Date Tima Tello MD [address] [place] [address] PCP - General Family Medicine 05/07/21 Gasoline Engine Inspector Relationship Specialty Start Date End Date Tima Tello MD [address] [place] [address] PCP - General Family Medicine 05/07/21 Gasoline Engine Inspector Relationship Specialty Start Date End Date Tima Tello MD [address] [place] [address] PCP - General Family Medicine 05/07/21 Gasoline Engine Inspector Relationship Specialty Start Date End Date Tima Tello MD [address] [place] [address] PCP - General Family Medicine 05/07/21 Stephen Nunez MD [address] [place] [address] Physician Radiation Oncology 12/28/23 Gasoline Engine Inspector Relationship Specialty Start Date End Date Tima Tello MD [address] [place] [address] PCP - General Family Medicine 05/07/21 Stephen Nunez MD [address] [facility] [place] [place] [address] Physician Radiation Oncology 12/28/23 Gasoline Engine Inspector Relationship Specialty Start Date End Date Tima Tello MD [address] [place] [address] PCP - General Family Medicine 05/07/21 Stephen Nunez MD [address] [place] [address] Physician Radiation Oncology 12/28/23 Gasoline Engine Inspector Relationship Specialty Start Date End Date Tima Tello MD [address] [place] [address] PCP - General Family Medicine 05/07/21 Stephen Nunez MD [address] [place] [address] Physician Radiation Oncology 12/28/23 Gasoline Engine Inspector Relationship Specialty Start Date End Date Tima Tello MD [address] [place] [address] PCP - General Family Medicine 05/07/21 Stephen Nunez MD [address] [place] [address] Physician Radiation Oncology 12/28/23 Becky Tineo MD [address] [place] [address] Cardiology 01/09/24 Gasoline Engine Inspector Relationship Specialty Start Date End Date Tima Tello MD [address] [place] [address] PCP - General Family Medicine 05/07/21 Stephen Nunez MD [address] [place] [address] Physician Radiation Oncology 12/28/23 Becky Tineo MD 95 [facility] 300 [place] [address] Cardiology 01/09/24 Gasoline Engine Inspector Relationship Specialty Start Date End Date Tima Tello MD [facility]0 [place] [address] PCP - General Family Medicine 01/16/24 Gasoline Engine Inspector Relationship Specialty Start Date End Date Tima Tello MD [address] [place] [address] PCP - General Family Medicine 05/07/21 Stephen Nunez MD [address] [place] [address] Physician Radiation Oncology 12/28/23 Becky Tineo MD 95 [facility] 300 [place] [address] Cardiology 01/09/24 Gasoline Engine Inspector Relationship Specialty Start Date End Date Tima Tello MD [facility]0 [place] [address] PCP - General Family Medicine 01/16/24 Gasoline Engine Inspector Relationship Specialty Start Date End Date Tima Tello MD [facility] [place], [place] [address]771 PCP - General Family Medicine 01/16/24 Gasoline Engine Inspector Relationship Specialty Start Date End Date Tima Tello MD [address] [place] [address] PCP - General Family Medicine 05/07/21 Stephen Nunez MD [address] [place] [address] Physician Radiation Oncology 12/28/23 Becky Tineo MD [address] [place] [address] [address] [place] [address] Cardiology 01/09/24 ProviderChavez MD Pastry Decorator 02/14/24 02/27/24 Gasoline Engine Inspector Relationship Specialty Start Date End Date Tima Tello MD [address] [place], [place] [address]4091 PCP - General Family Medicine 05/07/21 Stephen Nunez MD [address] [place] [address] Physician Radiation Oncology 12/28/23 Becky Tineo MD [address] [place] [address] [place] [address] Cardiology 01/09/24 ProviderChavez MD Pastry Decorator 02/14/24 02/27/24 Gasoline Engine Inspector Relationship Specialty Start Date End Date Tima Tello MD [address] [place] [address] PCP - General Family Medicine 05/07/21 Stephen Nunez MD [address] [place] [address] Physician Radiation Oncology 12/28/23 Becky Tineo MD [address] [place] [place] [address] Cardiology 01/09/24 Chavez Mcdowell MD Pastry Decorator 02/14/24 02/27/24 Gasoline Engine Inspector Relationship Specialty Start Date End Date Tima Tello MD [address] [facility] [place] [address] PCP - General Family Medicine 05/07/21 Stephen Nunez MD [address] [facility] [place] [address] Physician Radiation Oncology 12/28/23 Becky Tineo MD [address] [place] [place] [address] Cardiology 01/09/24 Chavez Mcdowell MD Pastry Decorator 02/14/24 02/27/24 Gasoline Engine Inspector Relationship Specialty Start Date End Date Tima Tello MD [address] [facility] [place] [address] PCP - General Family Medicine 05/07/21 Stephen Nunez MD [address] [place] [address] Physician Radiation Oncology 12/28/23 Becky Tineo MD [address] [place] [place] [address] Cardiology 01/09/24 Gasoline Engine Inspector Relationship Specialty Start Date End Date Tima Tello MD [address] [place] [address] PCP - General Family Medicine 05/07/21 Stephen Nunez MD [address] [place] [address] Physician Radiation Oncology 12/28/23 Becky Tineo MD [address] [place] [address] 300 [place] [address] Cardiology 01/09/24 Gasoline Engine Inspector Relationship Specialty Start Date End Date Tima Tello MD [address] [place] [address] PCP - General Family Medicine 05/07/21 Stephen Nunez MD [address] [place] [address] Physician Radiation Oncology 12/28/23 Becky Tineo MD [address] [place] [address] Cardiology 01/09/24 Charo Tsai APRN.CNP [address] [place] [address] Pulmonary Disease 03/04/24 Gasoline Engine Inspector Relationship Specialty Start Date End Date Tima Tello MD [address] [place] [address] PCP - General Family Medicine 05/07/21 Stephen Nunez MD [address] [place] [address] Physician Radiation Oncology 12/28/23 Becky Tineo MD [address] [place] [place] [address] Cardiology 01/09/24 Eagle BridgeCharo, PULLER OVER.DISASTER RECOVERY MANAGER [address] [place] [address] Pulmonary Disease 03/04/24 Gasoline Engine Inspector Relationship Specialty Start Date End Date Tima Tello MD [address] [place] [address] PCP - General Family Medicine 05/07/21 Stephen Nunez MD [address] [place] [address] Physician Radiation Oncology 12/28/23 Becky Tineo MD [address] [place] [place] [address] Cardiology 01/09/24 Eagle BridgeCharo, PULLER OVER.DISASTER RECOVERY MANAGER [address] [place] [address] Pulmonary Disease 03/04/24 Gasoline Engine Inspector Relationship Specialty Start Date End Date Tima Tello MD [address] [place] [address] PCP - General Family Medicine 05/07/21 Stephen Nunez MD [address] [place] [address] Physician Radiation Oncology 12/28/23 Becky Tineo MD [address] [place] [address] Cardiology 01/09/24 Charo Tsai APRN.DISASTER RECOVERY MANAGER [address] [place] [address] Pulmonary Disease 03/04/24 Gasoline Engine Inspector Relationship Specialty Start Date End Date Tima Tello MD [address] [place] [address] PCP - General Family Medicine 05/07/21 Stephen Nunez MD [address] [place] [address] Physician Radiation Oncology 12/28/23 Becky Tineo MD [address] [place] [address] [address] [place] [address] Cardiology 01/09/24 Charo Tsai, SESAR.DISASTER RECOVERY MANAGER [address] [place] [address] Pulmonary Disease 03/04/24 Gasoline Engine Inspector Relationship Specialty Start Date End Date Tima Tello MD [address] [place] [address] PCP - General Family Medicine 05/07/21 Stephen Nunez MD [address] [place] [address] Physician Radiation Oncology 12/28/23 Becky Tineo MD [address] [place] [place] [address] Cardiology 01/09/24 Charo Tsai APRN.DISASTER RECOVERY MANAGER [address] [place] [address] Pulmonary Disease 03/04/24 Gasoline Engine Inspector Relationship Specialty Start Date End Date Tima Tello MD [address] [place] [address] PCP - General Family Medicine 05/07/21 Stephen Nunez MD [address] [place] [address] Physician Radiation Oncology 12/28/23 Becky Tineo MD 95 [facility] [address] [place] [address] Cardiology 01/09/24 Charo Tsai APRN.DISASTER RECOVERY MANAGER [address] [place] [address] Pulmonary Disease 03/04/24 Gasoline Engine Inspector Relationship Specialty Start Date End Date Tima Tello MD [address] [place] [address] PCP - General Family Medicine 05/07/21 Stephen Nunez MD [address] [place] [address] Physician Radiation Oncology 12/28/23 Becky Tineo MD [address] [place] [place] [address] Cardiology 01/09/24 Charo Tsai APRN.DISASTER RECOVERY MANAGER [address] [place] [address] Pulmonary Disease 03/04/24 Gasoline Engine Inspector Relationship Specialty Start Date End Date Tima Tello MD [address] [place] [address] PCP - General Family Medicine 05/07/21 tSephen Nunez MD [address] [place] [address] Physician Radiation Oncology 12/28/23 Becky Tineo MD [address] [place] [address] Cardiology 01/09/24 Charo Tsai PULLER OVER.DISASTER RECOVERY MANAGER [address] [place] [address] Pulmonary Disease 03/04/24 Gasoline Engine Inspector Relationship Specialty Start Date End Date Tima Tello MD [address] [place] [address] PCP - General Family Medicine 05/07/21 Stephen Nunez MD [address] [place] [address] Physician Radiation Oncology 12/28/23 Becky Tineo MD [address] [place] [address] Cardiology 01/09/24 Charo Tsai PULLER OVER.DISASTER RECOVERY MANAGER [address] [place] [address] Pulmonary Disease 03/04/24 Gasoline Engine Inspector Relationship Specialty Start Date End Date Tima Tello MD [address] [place] [address] PCP - General Family Medicine 05/07/21 Stephen Nunez MD [address] [place] [address] Physician Radiation Oncology 12/28/23 Becky Tineo MD [address] [place] [address] Cardiology 01/09/24 Charo Tsai APRN.DISASTER RECOVERY MANAGER [address] [place] [address] Pulmonary Disease 03/04/24 Gasoline Engine Inspector Relationship Specialty Start Date End Date Tima Tello MD [address] [place] [address] PCP - General Family Medicine 01/16/24 Gasoline Engine Inspector Relationship Specialty Start Date End Date Tima Tello MD [address] [place] [address] PCP - General Family Medicine 01/16/24 Gasoline Engine Inspector Relationship Specialty Start Date End Date Tima Tello MD [address] [place] [address] PCP - General Family Medicine 01/16/24 Gasoline Engine Inspector Relationship Specialty Start Date End Date Tima Tello MD [address] [place] [address] PCP - General Family Medicine 01/16/24 Gasoline Engine Inspector Relationship Specialty Start Date End Date Tima Tello MD [address] [place] [address] PCP - General Family Medicine 01/16/24 Gasoline Engine Inspector Relationship Specialty Start Date End Date Tima Tello MD [address] [place] [address] PCP - General Family Medicine 01/16/24 Gasoline Engine Inspector Relationship Specialty Start Date End Date Tima Tello MD [address] [place] [address] PCP - General Family Medicine 01/16/24 Gasoline Engine Inspector Relationship Specialty Start Date End Date Tima Tello MD [address] [place] [address] PCP - General Family Medicine 01/16/24 Gasoline Engine Inspector Relationship Specialty Start Date End Date Tima Tello MD [address] [place] [address] PCP - General Family Medicine 01/16/24 Gasoline Engine Inspector Relationship Specialty Start Date End Date Tima Tello MD [address] [place] [address] PCP - General Family Medicine 01/16/24 Gasoline Engine Inspector Relationship Specialty Start Date End Date Tima Tello MD [address] [place] [address] PCP - General Family Medicine 01/16/24 Gasoline Engine Inspector Relationship Specialty Start Date End Date Tima Tello MD [address] [place] [address] PCP - General Family Medicine 01/16/24 Irma Grant, mall plant caretakerWholesale Account Executive Manager 07/26/24 Gasoline Engine Inspector Relationship Specialty Start Date End Date Tima Tello MD [address] [place] [address] PCP - General Family Medicine 01/16/24 Irma Grant, RN Registered Nurse Wholesale Account Executive Manager 07/26/24 Gasoline Engine Inspector Relationship Specialty Start Date End Date Tima Tello MD [address] [place] [address] PCP - General Family Medicine 05/07/21 Stephen Nunez MD [address] [place] [address] Physician Radiation Oncology 12/28/23 Becky Tineo MD [address] [place] [place] [address] Cardiology 01/09/24 Charo Tsai APRN.DISASTER RECOVERY MANAGER [address] [place] [address] Pulmonary Disease 03/04/24 PodlogarAlejandra APRN.DISASTER RECOVERY MANAGER [address] [place] [address] Pastry Decorator Family Medicine 07/06/24 Gasoline Engine Inspector Relationship Specialty Start Date End Date Tima Tello MD [address] [place] [address] PCP - General Family Medicine 05/07/21 Stephen Nunez MD [address] [place] [address] Physician Radiation Oncology 12/28/23 Becky Tineo MD [address] [place] [address] Cardiology 01/09/24 Charo Tsai SESAR.DISASTER RECOVERY MANAGER [address] [place] [address] Pulmonary Disease 03/04/24 PodlogarAlejandra APRN.DISASTER RECOVERY MANAGER [address] [place] [address] Pastry Decorator Family Medicine 07/06/24 Gasoline Engine Inspector Relationship Specialty Start Date End Date Tima Tello MD [address] [place] [address] PCP - General Family Medicine 05/07/21 Stephen Nunez MD [address] [place] [address] Physician Radiation Oncology 12/28/23 Becky Tineo MD [address] [place] [address] Cardiology 01/09/24 Charo Tsai APRN.DISASTER RECOVERY MANAGER [address] [place] [address] Pulmonary Disease 03/04/24 PodlogarAlejandra APRN.DISASTER RECOVERY MANAGER [address] [place] [address] Pastry Decorator [facility] 07/06/24 Gasoline Engine Inspector Relationship Specialty Start Date End Date Tima Tello MD [address] [place] [address] PCP - General Family Medicine 05/07/21 Stephen Nunez MD [address] [place] [address] Physician Radiation Oncology 12/28/23 Becky Tineo MD [address] [place] [address] Cardiology 01/09/24 Charo Tsai APRN.DISASTER RECOVERY MANAGER [address] [place] [address] Pulmonary Disease 03/04/24 PodlogarAlejandra PULLER OVER.DISASTER RECOVERY MANAGER [address] [place] [address] Pastry Decorator Family Medicine 07/06/24 Gasoline Engine Inspector Relationship Specialty Start Date End Date Tima Tello MD [address] [place] [address] PCP - General Family Medicine 01/16/24 Irma Grant, RN Registered Nurse Wholesale Account Executive Manager 07/26/24 Gasoline Engine Inspector Relationship Specialty Start Date End Date Tima Tello MD [facility] [place], [place] [address]31 PCP - General Family Medicine 01/16/24 Irma Grant, RN Registered Nurse Wholesale Account Executive Manager 07/26/24 Gasoline Engine Inspector Relationship Specialty Start Date End Date Tima Tello MD [address] [place] [address] PCP - General Family Medicine 01/16/24 Irma Grant, RN Registered Nurse Wholesale Account Executive Manager 07/26/24 Gasoline Engine Inspector Relationship Specialty Start Date End Date Tima Tello MD [address] [place] [address] PCP - General Family Medicine 05/07/21 Stephen Nunez MD [address] [place] [address] Physician Radiation Oncology 12/28/23 Becky Tineo MD [address] [place] [address] 300 [place] [address] Cardiology 01/09/24 Charo Tsai, PULLER OVER.DISASTER RECOVERY MANAGER [address] [place] [address] Pulmonary Disease 03/04/24 Podlogar, Alejandra PULLER OVER.DISASTER RECOVERY MANAGER [address] [place] [address] [facility] Gasoline Engine Inspector Relationship Specialty Start Date End Date Tima Tello MD [address] [place] [address] PCP - General Family Medicine 05/07/21 Stephen Nunez MD [address] [place] [address] Physician Radiation Oncology 12/28/23 Becky Tineo MD [address] [place] [address] 300 [place] [address] Cardiology 01/09/24 Charo Tsai, PULLER OVER.DISASTER RECOVERY MANAGER [address] [place] [address] Pulmonary Disease 03/04/24 Podlogar, Alejandra PULLER OVER.DISASTER RECOVERY MANAGER [address] [place] [address] [facility] [place] 07/06/24 Gasoline Engine Inspector Relationship Specialty Start Date End Date Tima Tello MD [address] [place] [address] PCP - General Family Medicine 05/07/21 Stephen Nunez MD [address] [place] [address] Physician Radiation Oncology 12/28/23 Becky Tineo MD [address] [place] [address] Cardiology 01/09/24 Charo Tsai APRN.DISASTER RECOVERY MANAGER [address] [place] [address] Pulmonary Disease 03/04/24 Podlogar, SESAR Roberts.DISASTER RECOVERY MANAGER [address] [place] [address] Pastry Decorator Family Medicine 07/06/24 Gasoline Engine Inspector Relationship Specialty Start Date End Date Tima Tello MD [address] [place] [address] PCP - General Family Medicine 05/07/21 Stephen Nunez MD [address] [place] [address] Physician Radiation Oncology 12/28/23 Becky Tineo MD [address] [place] [address] Cardiology 01/09/24 Charo Tsai APRN.DISASTER RECOVERY MANAGER [address] [place] [address] Pulmonary Disease 03/04/24 PodlogarAlejandra APRN.DISASTER RECOVERY MANAGER [address] [place] [address] Pastry Decorator Family Medicine 07/06/24 Gasoline Engine Inspector Relationship Specialty Start Date End Date Tima Tello MD [address] [facility], [place] [address] PCP - General Family Medicine 05/07/21 Stephen Nunez MD [address] [place] [address] Physician Radiation Oncology 12/28/23 Becky Tineo MD [address] [place] [address] [phone] Cardiology 01/09/24 Charo Tsai PULLER OVER.DISASTER RECOVERY MANAGER [address] [place] [address] Pulmonary Disease 03/04/24 Podlogar, SESAR Roberts.DISASTER RECOVERY MANAGER [address] [place] [address] Pastry Decorator Family Medicine 07/06/24 Gasoline Engine Inspector Relationship Specialty Start Date End Date Tima Tello MD [address] [place] [address] PCP - General Family Medicine 01/16/24 Irma Grant, RN Registered Nurse Wholesale Account Executive Manager 07/26/24 Gasoline Engine Inspector Relationship Specialty Start Date End Date Tima Tello MD [address] [place] [address] PCP - General Family Medicine 01/16/24 Irma Grant, RN Registered Nurse Wholesale Account Executive Manager 07/26/24 Gasoline Engine Inspector Relationship Specialty Start Date End Date Tima Tello MD [address] [place] [address] 245691 PCP - General Family Medicine 01/16/24 Irma Grant, RN Registered Nurse Wholesale Account Executive Manager 07/26/24 Gasoline Engine Inspector Relationship Specialty Start Date End Date Tima Tello MD [address] [place] [address] PCP - General Family Medicine 01/16/24 Irma Grant, RN Registered Nurse Wholesale Account Executive Manager 07/26/24 Gasoline Engine Inspector Relationship Specialty Start Date End Date Tima Tello MD [address] [place] [address] [phone] PCP - General Family Medicine 01/16/24 Irma Grant, RN Registered Nurse Wholesale Account Executive Manager 07/26/24 Gasoline Engine Inspector Relationship Specialty Start Date End Date Tima Tello MD [address] [place] [address] 115261 PCP - General Family Medicine 01/16/24 Irma Grant, RN Registered Nurse Wholesale Account Executive Manager 07/26/24 Gasoline Engine Inspector Relationship Specialty Start Date End Date Tima Tello MD [address] [place] [address] [phone] PCP - General Family Medicine 05/07/21 Stephen Nunez MD [address] [place], [place] 11596[address] Physician Radiation Oncology 12/28/23 Becky Tineo MD [address] [place] [address] Cardiology 01/09/24 Charo Tsai APRN.DISASTER RECOVERY MANAGER [address] [place] [address] Pulmonary Disease 03/04/24 Podlogar, SESAR Roberts.DISASTER RECOVERY MANAGER [address]40 [place] [address] Formerly [facility] 07/06/24 Jenna Richardson APRN.DISASTER RECOVERY MANAGER 1740 [facility], [place] 422361 Former[facility] 01/09/25 Gasoline Engine Inspector Relationship Specialty Start Date End Date Tima Tello MD [address] [facility], [place] 438831 PCP - General Family Medicine 05/07/21 Stephen Nunez MD [address] [place] [address] Physician Radiation Oncology 12/28/23 Becky Tineo MD [address] [place] [address] Cardiology 01/09/24 Charo Tsai APRN.DISASTER RECOVERY MANAGER [address] [place] [address] Pulmonary Disease 03/04/24 Podlogar, SESAR Roberts.DISASTER RECOVERY MANAGER [address] [place] [address] Formerly [facility] 07/06/24 Jenna Richardson APRN.DISASTER RECOVERY MANAGER [address] [place] [address] Pastry Decorator Family [facility] 01/09/25 Gasoline Engine Inspector Relationship Specialty Start Date End Date Tima Tello MD [address] [facility] [place] [address] [phone] PCP - General Family Medicine 05/07/21 Stephen Nunez MD [address] [facility] [place] [address] Physician Radiation Oncology 12/28/23 Becky Tineo MD [address] [place] [address] Cardiology 01/09/24 Charo Tsai PULLER OVER.DISASTER RECOVERY MANAGER [address] [place] [address] Pulmonary Disease 03/04/24 PodlogarAlejandra, PULLER OVER.DISASTER RECOVERY MANAGER [address] [place] [address] [facility] [place] 07/06/24 Jenna Richardson PULLER OVER.DISASTER RECOVERY MANAGER [address] [place] [address] Pastry Decorator [facility] 01/09/25 Gasoline Engine Inspector Relationship Specialty Start Date End Date Tima Tello MD [address] [place] [address] PCP - General Family Medicine 05/07/21 Stephen Nunez MD [address] [place] [address] Physician Radiation Oncology 12/28/23 Becky Tineo MD [address] [place] [address] [address] [place] [address] Cardiology 01/09/24 Charo Tsai APRN.DISASTER RECOVERY MANAGER [address] [place] [address] Pulmonary Disease 03/04/24 Podlogar, SESAR Roberts.DISASTER RECOVERY MANAGER [address] [place] [address] Formerly [facility] 07/06/24 Jenna Richardson APRN.DISASTER RECOVERY MANAGER [address] [place] [address] Formerly [facility] 01/09/25 Gasoline Engine Inspector Relationship Specialty Start Date End Date Tima Tello MD [address] [place] [address] PCP - General Family Medicine 05/07/21 Stephen Nunez MD [address] [place] [address] Physician Radiation Oncology 12/28/23 Becky Tineo MD [address] [place] [address] 300 [place] [address] Cardiology 01/09/24 Charo Tsai APRN.DISASTER RECOVERY MANAGER [address] [place] [address] Pulmonary Disease 03/04/24 Podlogar, SESAR Roberts.DISASTER RECOVERY MANAGER [address] [facility] [place] [address] Formerly [facility] 07/06/24 Jenna Richardson APRN.DISASTER RECOVERY MANAGER [address] [place] [address] Pastry Decorator [facility] 01/09/25 Gasoline Engine Inspector Relationship Specialty Start Date End Date Tima Tello MD [address] [place] [address] PCP - General Family Medicine 05/07/21 Stephen Nunez MD [address] [place] [facility] [place] [address] Physician Radiation Oncology 12/28/23 Becky Tineo MD [address] [place] [address] [id number] Cardiology 01/09/24 Charo Tsai, PULLER OVER.DISASTER RECOVERY MANAGER [address] [place] [facility] [place] [address] Pulmonary Disease 03/04/24 PodlogarAlejandra PULLER OVER.DISASTER RECOVERY MANAGER [address] [place] [address] [facility] Family [facility] 07/06/24 Jenna Richardson, PULLER OVER.DISASTER RECOVERY MANAGER [address] [place] [address] Formerly [facility] 01/09/25 Gasoline Engine Inspector Relationship Specialty Start Date End Date Tima Tello MD [address] [place] [address] PCP - General Family Medicine 05/07/21 Stephen Nunez MD [address] [place] [address] Physician Radiation Oncology 12/28/23 Becky Tineo MD [address] [place] [address] [phone] Cardiology 01/09/24 Charo Tsai, PULLER OVER.DISASTER RECOVERY MANAGER [address] [place], [place] [id number] Pulmonary Disease 03/04/24 PodlogarAlejandra PULLER OVER.DISASTER RECOVERY MANAGER [address] [place], [place] 644[address] Pastry Decorator [facility] 07/06/24 Jenna Richardson, PULLER OVER.DISASTER RECOVERY MANAGER [address] [place], [place] [id number] Formerly [facility] 01/09/25 Team Status: Active Member Role/Relationship Status Dates Dr. Sebastián Doran MD Family Provider Active Dr. Morro Tello MD Primary Care Provider Acti ve Team Status: Inactive Member Role/Relationship Status Dates Dr. Morro Tello MD Primary Care Provider Acti ve Start: March 12, 2025 End: March 12, 2025 Dr. Jose Valderrama MD Attending Provider Active Start: March 12, 2025 End: March 12, 2025 Dr. Jose Valderrama MD Referring Provider Active Start: March 12, 2025 End: March 12, 2025 Gasoline Engine Inspector Relationship Specialty Start Date End Date Tima Tello MD [address] [place], [place] [address] PCP - General Family Medicine 05/07/21 Stephen Nunez MD [address] [place] [address] Physician Radiation Oncology 12/28/23 Becky Tineo MD [address] [place] [address] 300 [place] [address] Cardiology 01/09/24 Charo Tsai APRN.DISASTER RECOVERY MANAGER [address] [place] [address] Pulmonary Disease 03/04/24 Podlogar, SESAR Roberts.DISASTER RECOVERY MANAGER [address] [place] [address] Formerly [facility] 07/06/24 Jenna Richardson APRN.DISASTER RECOVERY MANAGER [address] [place] [address] Formerly [facility] 01/09/25 Gasoline Engine Inspector Relationship Specialty Start Date End Date Tima Tello MD [address] [place] [address] PCP - General Family Medicine 05/07/21 Stephen Nunez MD [address] [place] [address] Physician Radiation Oncology 12/28/23 Becky Tineo MD [address] [place] [address] [address] [place] [address] Cardiology 01/09/24 Charo Tsai APRN.DISASTER RECOVERY MANAGER [address] [place] [address] Pulmonary Disease 03/04/24 Podlogar, SESAR Roberts.DISASTER RECOVERY MANAGER [address] [place] [address] Formerly [facility] 07/06/24 Jenna Richardson APRN.DISASTER RECOVERY MANAGER [address] [place] [address] Pastry Decorator Family Medicine 01/09/25 Gasoline Engine Inspector Relationship Specialty Start Date End Date Tima Tello MD [address] [facility] [place], [place] [address] PCP - General Family Medicine 05/07/21 Stephen Nunez MD [address] [place], [place] [address] Physician Radiation Oncology 12/28/23 Becky Tineo MD [address] [place] [address] [phone] Cardiology 01/09/24 Charo Tsai, PULLER OVER.DISASTER RECOVERY MANAGER [address] [place] [address] Pulmonary Disease 03/04/24 PodlogAlejandra alcala PULLER OVER.DISASTER RECOVERY MANAGER [address] [place] [address] Pastry Decorator Family Medicine 07/06/24 Jenna Richardson PULLER OVER.DISASTER RECOVERY MANAGER [address] [place] [address] Pastry Decorator Family Medicine 01/09/25 Gasoline Engine Inspector Relationship Specialty Start Date End Date Tima Tello MD [address] [place] [address] PCP - General Family Medicine 05/07/21 Stephen Nunez MD [address] [place] [address] Physician Radiation Oncology 12/28/23 Becky Tineo MD [address] [place] [address] [place] [address] Cardiology 01/09/24 Charo Tsai, PULLER OVER.DISASTER RECOVERY MANAGER [address] [place] [address] Pulmonary Disease 03/04/24 Podlogar, Alejandra PULLER OVER.DISASTER RECOVERY MANAGER [address] [facility], [place] [id number] [facility] Family [facility] 07/06/24 Jenna Richardson APRN.DISASTER RECOVERY MANAGER [address] [place] [address] Formerly [facility] 01/09/25 Gasoline Engine Inspector Relationship Specialty Start Date End Date Tima Tello MD [address] [place] [address] PCP - General Family Medicine 05/07/21 Stephen Nunez MD [address] [place] [address] Physician Radiation Oncology 12/28/23 Becky Tineo MD [address] [place] [address] [place] [address] Cardiology 01/09/24 Charo Tsai PULLER OVER.DISASTER RECOVERY MANAGER [address] [place] [facility] [address] Pulmonary Disease 03/04/24 Podlogar, Alejandra PULLER OVER.DISASTER RECOVERY MANAGER [address] [place], [place] [address] Formerly [facility] 07/06/24 Jenna Richardson APRN.DISASTER RECOVERY MANAGER [address] [place], [place] [id number] Formerly [facility] 01/09/25 Gasoline Engine Inspector Relationship Specialty Start Date End Date Tima Tello MD [address] [place], [place] [id number] PCP - General Family Medicine 05/07/21 Stephen Nunez MD [address] [place], [place] [id number] Physician Radiation Oncology 12/28/23 Becky Tineo MD [address] [place] [address] [phone] Cardiology 01/09/24 Charo Tsai APRN.DISASTER RECOVERY MANAGER [address] [place], [place] [id number] Pulmonary Disease 03/04/24 PodlogarAlejandra APRN.DISASTER RECOVERY MANAGER [address] [place], [place] [id number] Formerly [facility] 07/06/24 Jenna Richardson, PULLER OVER.DISASTER RECOVERY MANAGER [address] [place], [place] [address] Formerly [facility] 01/09/25 Goals (unrecognized section and content) Goals may be documented in a n alternate sectionGoals may be documented in an alternate section Scheduled Active and Recently Administ ered Medications (unrecognized section and content) Medication Order 07/03/2024 07/04/2024 07/05/2024 sodium chloride 0.9% (NS) flush 5-40 mL 5-40 mL, IntraVENous, Every 12 hours, First dose on Mon07/05/24 at 0830, Preprocedure, For Line Patency: Peripheral IV = 5 mL; Midline or Central Line = 10 mL/lumen. If following IV push medication, administer flush at same rate as the IV push. Flush volume is determined by type of infusion therapy being given. For non-viscous solutions use: Peripheral IV = 5 mL Midline or Central Line = 10 mL/lumen For viscous solutions (i.e. blood components, parenteral nutrition, contrast media, or after obtaining blood sample) use: Peripheral IV = 10 mL Midline or Central Line = 20 mL/lumen 0830 (Canceled Entry - Provider: Automatic Discharge Provider - Comment: Automatically canceled at discontinue of medication order) PRN Medication Order 07/03/2024 07/04/2024 07/05/2024 iopamidol (Isovue-300) 61 % injection (CANCELED) As needed, Starting on Mon07/05/24 at 1201, Intraprocedure 1201 (Given - Provid er: Enrique Rogers MD) lidocaine (Xylocaine) 1 % injection (CANCELED) As needed, Starting on Mon07/05/24 at 1133, Intraprocedure 1133 (Given - Provid er: Enrique Rogers MD) NITROGLYCERIN 100 MCG / ML IN D5W VIAL FOR INTRA-OP/INTRAPROCEDURE USE (CANCELED) As needed, Starting on Mon07/05/24 at 1134, Intraprocedure 1134 (Given - Provid er: Enrique Rogers MD) sodium chloride 0.9 % infusion 5-250 mL/hr, IntraVENous, PRN, if patient receiving piggyback infusions and maintenance fluids are not ordered OR KVO fluids to protect IV site / prevent frequent line interruptions / long duration, Starting on Mon07/05/24 at 0828, Preprocedure, For piggyback infusion, administer at same rate as piggyback for a total of 25 mL. Enter 25 mL into dose field and piggyback rate into rate field of order. If piggyback is infusing at a rate less than 100 mL/hr, enter 25 mL into dose field and 100 mL/hr into rate field of order. For KVO fluids, enter rate of 20 mL/hr or less into rate field of order. sodium chloride 0.9% (NS) flush 5-40 mL 5-40 mL, IntraVENous, PRN, line care, After every IV line use, Starting on Mon07/05/24 at 0828, Preprocedure, For Line Patency: Peripheral IV = 5 mL; Midline or Central Line = 10 mL/lumen. If following IV push medication, administer flush at same rate as the IV push. Flush volume is determined by type of infusion therapy being given. For non-viscous solutions use: Peripheral IV = 5 mL Midline or Central Line = 10 mL/lumen For viscous solutions (i.e. blood components, parenteral nutrition, contrast media, or after obtaining blood sample) use: Peripheral IV = 10 mL Midline or Central Line = 20 mL/lumen verapamil (Isoptin) injection (CANCELED) As needed, Starting on Mon07/05/24 at 1134, Intraprocedure 1134 (Given - Provid er: Enrique Rogers MD) Scheduled Medication Order 07/29/2024 07/30/2024 07/31/2024 acetaminophen (Tylenol) tablet 1,000 mg 1,000 mg, Oral, Every 8 hours, First dose on Marjorie 07/25/24 at 1400, Recovery & On Unit 0518 (Given - Provider: Latisha Marshall RN)1318 (Given - Provider: Anisa Awad RN)2314 (Given - Provider: Jose Fontanez RN) 0647 (Given - Provider: Jose Fontanez RN)1329 (Given - Provider: Anisa Awad RN)2313 (Given - Provider: Ford Burch RN) 0613 (Given - Provider: Ford Burch RN)1400 (Canceled Entry - Provider: Automatic Discharge Provider - Comment: Automatically canceled at discontinue of medication order) amiodarone (Nexterone) 150 mg/100 mL (premix) (COMPLETED) 150 mg, IntraVENous, Administer over 10 Minutes, Once, On Mon07/30/24 at 0700, For 1 dose, Use in-line filter. Administer through central venous catheter whenever available. Premix 0740 (New Bag - Provider: Anisa Awad RN)0750 (Stopped - Provider: Anisa Awad RN) amiodarone (Pacerone) tablet 400 mg 400 mg, Oral, 2 times daily, First dose on Mon07/31/24 at 0900, For 14 days 0935 (Given - Provid er: Anisa Awad RN) aspirin chewable tablet 81 mg 81 mg, Oral, Daily, First dose on Mon07/26/24 at 0900 0937 (Given - Provider: Anisa Awad RN) 0940 (Given - Provider: Anisa Awad RN) 0934 (Given - Provider: Anisa Awad RN) atorvastatin (Lipitor) tablet 80 mg 80 mg, Oral, Daily, First dose on Mon07/26/24 at 0900 0937 (Given - Provider: Anisa Awad RN) 0940 (Given - Provider: Anisa Awad RN) 0934 (Given - Provider: Anisa Awad RN) chlorhexidine (Peridex) 0.12 % solution 15 mL 15 mL, Mouth/Throat, 2 times daily, First dose on Marjorie 07/25/24 at 1800, For 7 days, Phase II/On Unit, Rinse and spit. Do not swallow. 0937 (Given - Provider: Anisa Awad RN)2054 (Given - Provider: Jose Fontanez RN) 0940 (Given - Provider: Anisa Awad RN)2000 (Given - Provider: Ford Burch RN) 0900 (Not Given - Provider: Anisa Awad RN - Reason: Patient/family refused) clopidogrel (Plavix) tablet 75 mg 75 mg, Oral, Daily, First dose on Mon07/29/24 at 0900 0937 (Given - Provider: Anisa Awad RN) 0940 (Given - Provider: Anisa Awad RN) 0934 (Given - Provider: Anisa Awad RN) furosemide (Lasix) tablet 40 mg (CANCELED) 40 mg, Oral, 2 times daily, First dose on Mon07/28/24 at 0715 0518 (Given - Provider: Latisha Marshall RN)1604 (Given - Provider: Anisa Awad RN) 0648 (Given - Provider: Jose Fontanez RN) Lidocaine 4 % patch 1 patch 1 patch, Topical, Administer over 12 Hours, Daily, First dose on Mon07/25/24 at 1230, Recovery & On Unit, Cut in half and place on both sides of the incision. Patch may remain in place for up to 12 hours in any 24 hour period. 0833 (Medication Removed - Provider: Jose Fontanez RN - Comment: Not on patient when assessed)0937 (Medication Applied - Provider: Anisa Awad RN) 0940 (Medication Applied - Provider: Anisa Awad RN)2139 (Medication Removed - Provider: Ford Burch RN) 0900 (Not Given - Provider: Anisa Awad RN - Reason: Patient/family refused) metoprolol tartrate (Lopressor) tablet 25 mg 25 mg, Oral, 2 times daily, First dose (after last modification) on Mon07/28/24 at 0900, Hold for SBP less than 105 and/or MAPs less than 65 and/or HR less than 60 0937 (Given - Provider: Anisa Awad RN)2051 (Given - Provider: Jose Fontanez RN) 0940 (Given - Provider: Anisa Awad RN)1999 (Given - Provider: Ford Burch, COLEEN) 0934 (Given - Provider: Anisa Awad, COLEEN) mupirocin (Bactroban) 2 % ointment () Nasal, 2 times daily, First dose on Mon07/25/24 at 1800, For 4 days, Phase II/On Unit 0937 (Given - Provider: Anisa Awad, COLEEN) pantoprazole (ProtoNix) EC tablet 40 mg 40 mg, Oral, Daily before breakfast, First dose on Mon07/26/24 at 0630, Do not crush, chew, or split. 0518 (Given - Provider: Latisha Marshall RN) 0600 (Given - Provider: Jose Fontanez RN) 0613 (Given - Provider: Ford Burch RN) polyethylene glycol (PEG) 3350 (Miralax) packet 17 g 17 g, Oral, Daily, First dose on Mon07/26/24 at 0900, Recovery & On Unit, Bowel Regimen - for prevention of constipation. 0940 (Self Administered Via Pump - Provider: Anisa Awad RN) 0940 (Given - Provider: Anisa Awad RN) 0900 (Not Given - Provider: Anisa Awad RN - Reason: Patient/family refused) senna-docusate sodium (Senokot-S) 8.6-50 MG tablet 2 tablet 2 tablet, Oral, Nightly, First dose on Marjorie 07/25/24 at 2100, Recovery & On Unit, Bowel Regimen - for prevention of constipation. 2057 (Given - Provider: Jose Fontanez RN) 1999 (Given - Provider: Ford Burch RN) Continuous Medication Order 07/29/2024 07/30/2024 07/31/2024 amiodarone (Nexterone) 360 mg/200 mL (premix) (CANCELED) 1 mg/min (33.3333 mL/hr, rounded to 33.3 mL/hr), IntraVENous, Continuous, Starting on Mon07/30/24 at 0700, Use in-line filter. Use in-line filter. Give through central venous catheter whenever available. Premix 0740 (New Bag - Provider: Anisa Awad RN)1327 (New Bag - Provider: Anisa Awad RN)1916 (New Bag - Provider: Anisa Awad RN) 0100 (New Bag - Provider: Ford Burch, COLEEN)0630 (Stopped - Provider: Ford Burch RN) PRN Medication Order 07/29/2024 07/30/2024 07/31/2024 albumin human 25 % IV solution 25 g 25 g, IntraVENous, at 60 mL/hr, As needed, fluid bolus challenge PRN: PAD below goal (18) and/or Low BP (less than 90 SBP and/or less than 60 MAP) and/or Low urine output (less than 30ml/hr) per hemodynamic goals, Starting on Marjorie 07/25/24 at 1229, For 2 doses, Phase II/On Unit, To be given in conjunction with PRN 250ml Lactate Ringer Bolus Use if hgb greater than 7.5 and PAD below goal (18) and/or Low BP (less than 90 SBP and/or less than 60 MAP) and/or Low urine output (less than 30ml/hr) per hemodynamic goals If hemodynamic goals unattained, proceed to second fluid bolus challenge If hgb less than 7.5 notify surgeon for orders. calcium gluconate 2000 mg in 100 mL IVPB premix 2,000 mg, IntraVENous, at 50 mL/hr, Administer over 2 Hours, PRN, ionized calcium less than 4.3, Starting on Marjorie 07/25/24 at 1229, Recovery & On Unit, Give 2000 mg for ionized calcium less than 4.3 premix bag dextrose 5 % infusion 100 mL/hr, IntraVENous, PRN, Blood sugar less than 70mg/dL, Starting on Marjorie 07/25/24 at 1229, Recovery & On Unit, Start infusion following administration of dextrose 50% or glucagon. dextrose 50 % solution 12.5 g 12.5 g, IntraVENous, PRN, low blood sugar, Blood glucose less than 70 mg/dL and patient NOT ALERT or NPO., Starting on Marjorie 07/25/24 at 1229, Recovery & On Unit, If patient does not respond within 5 minutes, repeat dose x1. Start D5W at 100 mL/hour until ordering provider can be reached. Repeat blood glucose in 15 minutes. If blood glucose is less than 70 mg/dL, repeat treatment and recheck blood glucose in 15 minutes x2. If using Glucostabilizer, dose as instructed per system. glucagon (human recombinant) injection 1 mg 1 mg, IntraMUSCular, PRN, low blood sugar, Blood glucose less than 70 mg/dL and patient NOT ALERT or NPO and does not have IV access., Starting on Marjorie 07/25/24 at 1229, Recovery & On Unit, After administration, attempt intravenous access and start D5W at 100 mL/hr. Repeat blood glucose in 15 minutes x2 and notify provider. glucose oral gel 15 g 15 g, Oral, As needed, low blood sugar, Starting on Marjorie 07/25/24 at 1229, Recovery & On Unit, If blood glucose less than 50 mg/dL and patient ALERT and NOT NPO, give 2 tubes glucose gel. If blood glucose less than 70 mg/dL and patient ALERT and NOT NPO, give 1 tube glucose gel. Repeat blood glucose in 15 minutes. If blood glucose is less than 70 mg/dL, repeat treatment and recheck blood glucose in 15 minutes x2 and notify provider. ipratropium-albuterol (Duo-Neb) 0.5-2.5 mg/3 mL nebulizer solution 3 mL 3 mL, Nebulization, 3 times daily PRN, wheezing, shortness of breath, Starting on Marjorie 07/25/24 at 1229, Recovery & On Unit lactated ringers bolus 250 mL 250 mL, IntraVENous, at 124 mL/hr, Administer over 121 Minutes, Continuous PRN, fluid bolus challenge: lactated ringers bolus, Starting on Marjorie 07/25/24 at 1229, Phase II/On Unit, To be given in conjunction with PRN 25gm Albumin order Use if hgb greater than 7.5 and PAD below goal (18) and/or Low BP (less than 90 SBP and/or less than 60 MAP) and/or Low urine output (less than 30ml/hr) per hemodynamic goals If hemodynamic goals unattained, proceed to second fluid bolus challenge If hgb less than 7.5 notify surgeon for orders. magnesium hydroxide (Milk of Magnesia) 400 MG/5ML suspension 30 mL 30 mL, Oral, Daily PRN, constipation, Starting on Marjorie 07/25/24 at 1229, Recovery & On Unit, 1st line for treatment of constipation - give scheduled if no bowel movement in past 24 hours magnesium sulfate IVPB 4,000 mg(Linked Group 1) 4,000 mg, IntraVENous, at 25 mL/hr, Administer over 4 Hours, As needed, Per Magnesium Replacement Protocol, Starting on Marjorie 07/25/24 at 1229, Recovery & On Unit, Mg Lab Replacement Action 1.4-1.6 2 gram IVPB x 1 doses 1.0-1.3 4 gram IVPB x 1 doses Less than 1.0 CALL PHYSICIAN and 4 gram IVPB x 1 doses Infuse at 1 gram/hr. Repeat Mag level next AM. Not for use in Patients with CrCl less than 30 mL/min. magnesium sulfate IVPB premix 2,000 mg(Linked Group 1) 2,000 mg, IntraVENous, at 25 mL/hr, Administer over 2 Hours, As needed, Per Magnesium Replacement Protocol, Starting on Marjorie 07/25/24 at 1229, Recovery & On Unit, Mg Lab Replacement Action 1.4-1.6 2 gram IVPB x 1 doses 1.0-1.3 4 gram IVPB x 1 doses Less than 1.0 CALL PHYSICIAN and 4 gram IVPB x 1 doses Infuse at 1 gram/hr. Repeat Mag level next AM. Not for use in Patients with CrCl less than 30 mL/min. methocarbamol (Robaxin) tablet 1,000 mg 1,000 mg, Oral, Every 8 hours PRN, muscle spasms, Starting on Mon07/26/24 at 0621 0947 (Given - Provider: Anisa Awad RN)1807 (Given - Provider: Anisa Awad RN) 0232 (Given - Provider: Jose Fontanez RN)1432 (Given - Provider: Anisa Awad RN)2313 (Given - Provider: Ford Burch RN) naloxone (Narcan) injection 0.4 mg 0.4 mg, IntraVENous, Every 5 min PRN, opioid reversal, respiratory depression, Starting on Mon07/26/24 at 0625, +++ For RR <10, pinpoint pupils, over sedation for opioid reversal - MUST notify superintendent landfill operations provider immediately after first dose, may give IM or SQ if no IV access +++ ondansetron (Zofran) injection 4 mg(Linked Group 2) 4 mg, IntraVENous, Every 6 hours PRN, nausea, vomiting, Starting on Marjorie 07/25/24 at 1229, Recovery & On Unit, 1st Line. Give IV if patient is unable to take orally. If inadequate response within 60 minutes, proceed to next-line agent or contact provider if no further options ordered. 0736 (Given - Provider: Anisa Awad RN) ondansetron ODT (Zofran-ODT) disintegrating tablet 4 mg(Linked Group 2) 4 mg, Oral, Every 8 hours PRN, nausea, vomiting, Starting on Marjorie 07/25/24 at 1229, Recovery & On Unit, 1st Line. If inadequate response within 60 minutes, proceed to next-line agent or contact provider if no further options ordered. Patient should allow tablet to dissolve on tongue. Do not remove from blister pack until just before administering. 0736 (See Alternative - Provider: Anisa Awad RN) oxyCODONE (Roxicodone) immediate release tablet 10 mg(Linked Group 3) 10 mg, Oral, Every 4 hours PRN, severe pain (7-10), Starting on Mon07/28/24 at 1115, Recovery & On Unit 0130 (See Alternative - Provider: Latisha Marshall RN)1318 (See Alternative - Provider: Anisa Awad RN)2053 (See Alternative - Provider: Jose Fontanez RN) 0650 (See Alternative - Provider: Jose Fontanez, COLEEN)1432 (See Alternative - Provider: Anisa Awad RN)1950 (Given - Provider: Ford Burch RN) 0412 (Given - Provider: Ford Burch RN) oxyCODONE (Roxicodone) immediate release tablet 5 mg(Linked Group 3) 5 mg, Oral, Every 6 hours PRN, moderate pain (4-6), Starting on Mon07/28/24 at 1115, Recovery & On Unit 0130 (Given - Provider: Latisha Marshall RN)1318 (Given - Provider: Anisa Awad RN)2052 (Given - Provider: Jose Fontanez RN) 0650 (Given - Provider: Jose Fontanez RN)1432 (Given - Provider: Anisa Awad RN)1950 (See Alternative - Provider: Ford Burch RN) 041 (See Alternative - Provider: Ford Burch RN) potassium chloride 40 mEq in NS 500 mL IVPB (premix)(Linked Group 4) 40 mEq, IntraVENous, at 125 mL/hr, Administer over 4 Hours, 3 times daily PRN, hypokalemia, Starting on Marjorie 07/25/24 at 1229, Recovery & On Unit, For Peripheral Line Use. K Lab Replacement Action 3.1-3.5 20 mEq IVPB x 1 doses 2.7-3.0 40 mEq IVPB x 1 doses less than 2.7 CALL PROVIDER and administer 40 mEq IVPB x 1 dose Infuse at 10 mEq/hr Repeat Potassium lab 1 hour after administration. Protocol not for use in Patients with CrCl less than 30mL/min potassium chloride CR (Klor-Con M10) ER tablet 20 mEq 20 mEq, Oral, PRN, Hypokalemia, Starting on Mon07/26/24 at 0000, Phase II/On Unit, If patient is intubated or not tolerating PO use PRN IV replacement protocol Potassium level Dose LESS than 3.0 = Give 20 mEq x 3 doses 3.0-3.6 = Give 20 mEq x 2 doses Recheck potassium level 2 hour after replacement given, place order for lab under [place]regon If potassium level LESS than 3 after 1st replacement: Call surgeon. Do not crush or break. Do not crush or chew. 030 (Given - Provider: Latisha Marshall, COLEEN)303 (Given - Provider: Latisha Marshall, COLEEN) 410 (Given - Provider: Ford Burch, RN)411 (Given - Provider: Ford Burch RN) Potassium Chloride in NaCl IVPB 20 mEq(Linked Group 4) 20 mEq, IntraVENous, Administer over 2 Hours, Every 8 hours PRN, hypokalemia, Starting on Marjorie 07/25/24 at 1229, Recovery & On Unit, For Peripheral Line Use K Lab Replacement Action 3.1-3.5 20 mEq IVPB x 1 doses 2.7-3.0 40 mEq IVPB x 1 doses less than 2.7 CALL PROVIDER and administer 40 mEq IVPB x 1 dose Infuse at 10 mEq/hr Repeat Potassium lab 1 hour after administration. Protocol not for use in Patients with CrCl less than 30mL/min potassium chloride IVPB 20 mEq(Linked Group 4) 20 mEq, IntraVENous, at 50 mL/hr, Administer over 1 Hours, 3 times daily PRN, hypokalemia, Starting on Marjorie 07/25/24 at 1229, Recovery & On Unit, For Central Line Use Only K Lab Replacement Action 3.1-3.5 20 mEq IVPB x 2 doses 2.7-3.0 20 mEq IVPB x 2 doses (40 mEq Total) less than 2.7 CALL PROVIDER and administer 20 mEq IVPB x 2 doses (40 mEq Total) Infuse at 20 mEq/hr Repeat Potassium lab 1 hour after final administration. Protocol not for use in Patients with CrCl less than 30mL/min For central line administration only. Linked Groups Order Group 1: magnesium sulfate IVPB premix 2,000 mgJump to med 2,000 mg, IntraVENous, at 25 mL/hr, Administer over 2 Hours, As needed, Per Magnesium Replacement Protocol, Starting on Marjorie 07/25/24 at 1229, Recovery & On Unit, Mg Lab Replacement Action 1.4-1.6 2 gram IVPB x 1 doses 1.0-1.3 4 gram IVPB x 1 doses Less than 1.0 CALL PHYSICIAN and 4 gram IVPB x 1 doses Infuse at 1 gram/hr. Repeat Mag level next AM. Not for use in Patients with CrCl less than 30 mL/min. Or magnesium sulfate IVPB 4,000 mgJump to med 4,000 mg, IntraVENous, at 25 mL/hr, Administer over 4 Hours, As needed, Per Magnesium Replacement Protocol, Starting on Marjorie 07/25/24 at 1229, Recovery & On Unit, Mg Lab Replacement Action 1.4-1.6 2 gram IVPB x 1 doses 1.0-1.3 4 gram IVPB x 1 doses Less than 1.0 CALL PHYSICIAN and 4 gram IVPB x 1 doses Infuse at 1 gram/hr. Repeat Mag level next AM. Not for use in Patients with CrCl less than 30 mL/min. Group 2: ondansetron ODT (Zofran-ODT) disintegrating tablet 4 mgJump to med 4 mg, Oral, Every 8 hours PRN, nausea, vomiting, Starting on Marjorie 07/25/24 at 1229, Recovery & On Unit, 1st Line. If inadequate response within 60 minutes, proceed to next-line agent or contact provider if no further options ordered. Patient should allow tablet to dissolve on tongue. Do not remove from blister pack until just before administering. Or ondansetron (Zofran) injection 4 mgJump to med 4 mg, IntraVENous, Every 6 hours PRN, nausea, vomiting, Starting on Marjorie 07/25/24 at 1229, Recovery & On Unit, 1st Line. Give IV if patient is unable to take orally. If inadequate response within 60 minutes, proceed to next-line agent or contact provider if no further options ordered. Group 3: oxyCODONE (Roxicodone) immediate release tablet 5 mgJump to med 5 mg, Oral, Every 6 hours PRN, moderate pain (4-6), Starting on 07/28/24 at 1115, Recovery & On Unit Or oxyCODONE (Roxicodone) immediate release tablet 10 mgJump to med 10 mg, Oral, Every 4 hours PRN, severe pain (7-10), Starting on 07/28/24 at 1115, Recovery & On Unit Group 4: potassium chloride IVPB 20 mEqJump to med 20 mEq, IntraVENous, at 50 mL/hr, Administer over 1 Hours, 3 times daily PRN, hypokalemia, Starting on Marjorie 12/26/24 at 1229, Recovery & On Unit, For Central Line Use Only K Lab Replacement Action 3.1-3.5 20 mEq IVPB x 2 doses 2.7-3.0 20 mEq IVPB x 2 doses (40 mEq Total) less than 2.7 CALL PROVIDER and administer 20 mEq IVPB x 2 doses (40 mEq Total) Infuse at 20 mEq/hr Repeat Potassium lab 1 hour after final administration. Protocol not for use in Patients with CrCl less than 30mL/min For central line administration only. Or Potassium Chloride in NaCl IVPB 20 mEqJump to med 20 mEq, IntraVENous, Administer over 2 Hours, Every 8 hours PRN, hypokalemia, Starting on Marjorie 07/25/24 at 1229, Recovery & On Unit, For Peripheral Line Use K Lab Replacement Action 3.1-3.5 20 mEq IVPB x 1 doses 2.7-3.0 40 mEq IVPB x 1 doses less than 2.7 CALL PROVIDER and administer 40 mEq IVPB x 1 dose Infuse at 10 mEq/hr Repeat Potassium lab 1 hour after administration. Protocol not for use in Patients with CrCl less than 30mL/min Or potassium chloride 40 mEq in NS 500 mL IVPB (premix)Jump to med 40 mEq, IntraVENous, at 125 mL/hr, Administer over 4 Hours, 3 times daily PRN, hypokalemia, Starting on Marjorie 07/25/24 at 1229, Recovery & On Unit, For Peripheral Line Use. K Lab Replacement Action 3.1-3.5 20 mEq IVPB x 1 doses 2.7-3.0 40 mEq IVPB x 1 doses less than 2.7 CALL PROVIDER and administer 40 mEq IVPB x 1 dose Infuse at 10 mEq/hr Repeat Potassium lab 1 hour after administration. Protocol not for use in Patients with CrCl less than 30mL/min FOR RECORDS PERTAINING TO PATIENTS WHO ARE OR HAVE BEEN ENROLLED IN A CHEMICAL DEPENDENCY/SUBSTANCEABUSE PROGRAM, SOME INFORMATION MAY BE OMITTED. This clinical summary was aggregated from multiple sources. Caution should be exercised in using it in the provision of clinical care. This summary normalizes information from multiple sources, and as a consequence, information in this document may materially change the coding, format and clinical context of patient data. In addition, data may be omitted in some cases. CLINICAL DECISIONS SHOULD BE BASED ON THE PRIMARY CLINICAL RECORDS. [facility] [facility]. provides no warranty or guarantee of the accuracy or completeness of information in this document.
== END | disposition home or self-care (01) ==
LOC: CVS 07:09
PROVIDERS: PCP Family Medicine; Referring Provider Physician Assistant; Visit Provider Physician Assistant
DX: I73.9 Peripheral vascular disease, unspecified (principal)
CPT/HCPCS: 93924

== ENCOUNTER 2025-07-26 13:11 | Emergency (ER) | payer MEDICARE, BC, SELFPAY ==
[2025-07-26 13:12] VITALS: BP 165/79; PULSE 84; RESP 16; TEMP 36.8; O2SAT 99; BMI 26.0
--- NOTE | 2025-07-26 13:41 | CT_ITS ---
EXAM: CT Abdomen and Pelvis With Intravenous Contrast CLINICAL INDICATION: RIGHT SIDE ABDOMINAL PAIN AND NAUSEA. APPENDECTOM TECHNIQUE: Axial computed tomography images of the abdomen and pelvis with intravenous contrast. This CT exam was performed using one or more of the following dose reduction techniques: automated exposure control, adjustment of the mA and/or kV according to patient size, and/or use of iterative reconstruction technique. CONTRAST: 100 Isovue 370 RADIATION DOSE: CTDIvol = 13 mGy, DLP = 752 mGy-cm COMPARISON: CT Abdomen Pelvis dated 02/17/2024 FINDINGS: LUNG BASES: Unremarkable. No mass. No consolidation. ABDOMEN: LIVER: Hepatomegaly with fatty infiltration. GALLBLADDER AND BILE DUCTS: Unremarkable. No calcified stones. No ductal dilation. PANCREAS: Unremarkable. No mass. No ductal dilation. SPLEEN: Unremarkable. No splenomegaly. ADRENALS: Unremarkable. No mass. KIDNEYS AND URETERS: Unremarkable. No stones within either kidney. No hydronephrosis. STOMACH AND BOWEL: Apparent wall thickening of the descending colon and sigmoid colon. This could be secondary to underdistention. Underlying mass can not be excluded. Further evaluation with colonoscopy may be beneficial. Fecal retention in the colon consistent with constipation. PELVIS: APPENDIX: No findings to suggest acute appendicitis. BLADDER: Unremarkable. No mass. REPRODUCTIVE: Unremarkable as visualized. ABDOMEN and PELVIS: INTRAPERITONEAL SPACE: Unremarkable. No free air. No significant fluid collection. BONES/JOINTS: No acute fracture. No dislocation. SOFT TISSUES: Unremarkable. VASCULATURE: Scattered calcified and noncalcified plaque of the aorta measuring up to 3.5 cm in the infrarenal segment right common iliac artery measures up to 2.1 cm in diameter. No abdominal aortic aneurysm. LYMPH NODES: Unremarkable. No enlarged lymph nodes. CT/Abdomen/Pelvis W IV Cont ONLY IMPRESSION: 1. Apparent wall thickening of the descending colon and sigmoid colon. This c ould be secondary to underdistention. Underlying mass can not be excluded. Further evaluation with colonoscopy may be beneficia l. 2. Hepatomegaly with fatty infiltration. 3. Scattered calcified and noncalcified plaque of the aorta measuring up to 3. 5 cm in the infrarenal segment right common iliac artery measures up to 2.1 cm in diameter. 4. No obstructive uropathy. 5. Fecal retention in the colon consistent with constipation. Reading Location: [facility]
--- NOTE | 2025-07-26 13:45 | EDS_ITS ---
HPI HPI - GI History of Present Illness Chief Complaint: Abd Pain Informant: patient Abdominal Pain/Flank Pain Onset: Days Context: Gradual Onset Timing: Intermittent Quality: Cramping Location: RUQ and RLQ Current Severity: Mild Maximum Severity: Mild Worsened by: Nothing Relieved by: Nothing Nausea/Vomiting/Emesis GI Symptom: Positive for Nausea; Negative for Vomiting Onset: Days Severity: Mild Diarrhea/Melena/Hematochezia GI Symptom: Positive for - (Constipation); Negative for Diarrhea, Melena or Hematochezia Onset: Days Severity: Mild Associated Symptoms Associated Symptoms: Negative for Dysuria, Frequency, Hematuria or Urgency Narrative Narrative: 70-year-old male prior appendectomy. 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 States he has had abdominal discomfort last several days intermittent nausea no vomiting. Intermittent constipation no diarrhea or fever. No dysuria. No weight change. States when he gets the discomfort is right sides often after he eats. Prior similar symptoms: Yes Recent Illness/Hospitalization: No PFSH PFSH Medical History Former smoker Myocardial infarct History of CAD (coronary artery disease) HTN (hypertension) Lung nodule (~01/2024) Home Medications ?Medication ?Instructions ?Recorded ?Last Taken ?Type aspirin 81 mg capsule 81 mg PO DAILY 02/17/24 Unkn own History atorvastatin 80 mg tablet 80 mg PO DAILY 02/17/24 Unkn own History carvedilol 6.25 mg tablet 6.25 mg PO BID 02/17/24 Unkn own History lisinopril 5 mg tablet 5 mg PO DAILY 02/17/24 Unkno wn History Allergy/AdvReac Type Severity Reaction Status Date / Time Penicillins Allergy Mild Hives Verified 07/26/25 13:13 Family History Other Breast cancer CAD (coronary artery disease) Heart disease Hypertension Myocardial infarction Surgical History Hx of CABG Hx of heart artery stent (~2011) Hx of cardiac catheterization Social History Smoking Status: Former smoker Tobacco: How many years used: 7 ROS ROS ED ROS Narrative Right side abdominal discomfort. Constipation Constitutional Constitutional ED: Denies chills or fever(s) ENT ENT ED: Denies ear pain Cardiovascular Cardiovascular: Denies chest pain Respiratory/Chest Respiratory/Chest: Denies cough or dyspnea Gastrointestinal Gastrointestinal: Reports abdominal pain, constipation and nausea; Denies diarrhea, melena or vomiting Genitourinary Genitourinary ED: Denies dysuria or hematuria Musculoskeletal Musculoskeletal: Denies arthralgias or back pain Integumentary Denies abscess Neurologic Neurologic: Denies headache(s) Psychiatric Psychiatric: Denies anxiety or depression Endocrine Endocrinology: Denies polydipsia Hematologic/Lymphatic Hematologic/Lymphatic: Denies easy bleeding, easy bruising or lymphadenopathy Allergic/Immunologic Allergic/Immunologic ED: Denies mouth swelling, tongue swelling or urticaria EXAM Physical Exam Narrative Exam Narrative: 70-year-old male sitting upright in bed vital signs are stable afebrile no acute distress. H EENT exam pupils round react to light. Moist mucous membranes. Neck nontender. Lungs clear to auscultation bilaterally. Heart regular rhythm rate about 80 no murmur. Chest wall ribs nontender. Abdomen soft nondistended normal bowel sounds without peritoneal signs. Mild right upper quadrant tenderness. No Hobbs sign. Right lower quadrant no tenderness. Left side nontender. No hernia. No mass. No pulsatile mass. No obstruction. Moving all 4 extremities. Nontender no edema. Normal strength. Neurologically is awake alert. Answering questions following commands. Back nontender. Const Vital Signs: 07/26/25 13:12 07/26/25 15:23 07/26/25 15:53 Temperature 98.2 F 98 F Temperature Source Oral Pulse Rate 84 67 77 Respiratory Rate 16 21 H 16 Blood Pressure 165/79 H 132/78 H 142/105 H Blood Pressure Mean 107 96 117 Pulse Ox 99 99 97 Oxygen Delivery Method Room Air Room Air MDM MDM MDM Narrative Medical decision making narrative: 70-year-old male abdominal pain primarily right upper quadrant possible gallbladder disease versus other etiologies. CAT scan and labs. He did not wining for pain or nausea. This could also be secondary to constipation versus other etiologies. Repeat exam at 3:07 PM patient doing well. Still in pain along his right posterior rib cage and flank. Normal exam. Tender to palpation. No discoloration. Abdomen is currently benign. We went over his lab work or waiting on his UA and CAT scan results. Repeat exam at 3:42 PM patient doing well. Most of his pain is along his right lower rib cage. There is a scar there from prior lung surgery. His abdomen is benign. Went over his test results. He will be discharged home. He has Go Lytely at home. History & Record Review Discussion w/independent historian: Patient Additional record(s) reviewed:: Prior outpatient record, Prior ED visit and Prior labs Lab Data Attestation: I reviewed the patient's lab results. Lab results narrative: CBC shows a white count of 5 H&H of 13 and 38. Platelet count 145. Electrolytes unremarkable gap 11. Normal BUN of 13 creatinine 0.9. Glucose 93. Liver enzymes normal. Lipase normal at 29. Labs are consistent with prior. UA negative. 5-10 red cells. No nitrites. No white cells. 2+ bacteria. No urinary symptoms. CAT scan of the abdomen shows chronic changes no acute process. Plaque formation of the aorta. Constipation. Labs: Laboratory Results - last 24 hr 07/26/25 07/26/25 14:02 15:17 WBC 5.3 RBC 4.55 L Hgb 13.2 Hct 38.3 L MCV 84.2 MCH 29.0 MCHC 34.5 RDW Std Deviation 38.7 RDW Coeff of Ollie 12.7 Plt Count 145 L MPV 11.0 Immature Gran % (Auto) 0.800 Neut % (Auto) 78.3 H Lymph % (Auto) 11.1 L [place] % (Auto) 7.7 Eos % (Auto) 1.7 Baso % (Auto) 0.4 Absolute Neuts (auto) 4.2 Absolute Lymphs (auto) 0.59 L Nucleated RBC % 0 Sodium 139 Potassium 4.5 Chloride 104 Carbon Dioxide 24.0 Anion Gap 11 BUN 13 Creatinine 0.92 Estim Creat Clear Calc 64.99 Est GFR (MDRD) Non-Af 90 BUN/Creatinine Ratio 14.0 Glucose 93 Calcium 9.0 Total Bilirubin 0.38 AST 17 ALT 11 Alkaline Phosphatase 88 Total Protein 6.9 Albumin 4.1 Globulin 2.9 Albumin/Globulin Ratio 1.4 Lipase 29 Urine Color Yellow Urine Clarity Clear Urine pH 6.5 Ur Specific [place] 1.010 Urine Protein 15 H Urine Glucose (UA) Normal Urine Ketones Negative Urine Occult Blood 10 H Urine Nitrite Negative Urine Bilirubin Negative Urine Urobilinogen Normal Ur Leukocyte Esterase Negative Urine RBC 5-10 SEEN Urine WBC 0-5 SEEN Ur Squamous Epith Cells 0-5 SEEN Urine Bacteria 2+ Hyaline Casts 0-5 SEEN Urine Mucus 2+ Radiography Diagnostic Testing: Clinical Impression(s) from Imaging Studies Abdomen/Pelvis CT 07/26/25 13:41 IMPRESSION: 1. Apparent wall thickening of the descending colon and sigmoid colon. This could be secondary to underdistention. Underlying mass can not be excluded. Further evaluation with colonoscopy may be beneficial. 2. Hepatomegaly with fatty infiltration. 3. Scattered calcified and noncalcified plaque of the aorta measuring up to 3.5 cm in the infrarenal segment right common iliac artery measures up to 2.1 cm in diameter. 4. No obstructive uropathy. 5. Fecal retention in the colon consistent with constipation. Reading Location: [facility] Discharge Plan Triage Chief Complaint: Abd Pain ED Provider: Karl Ross Dx/Rx/DC Orders Clinical Impression: Abdominal pain, Constipation, History of AR (myocardial infarction) Instructions: ED Constipation (Adult), ED Abdominal Pain Unkn Cause Male... Prescriptions: No Action aspirin 81 mg capsule 81 mg PO DAILY atorvastatin 80 mg tablet 80 mg PO DAILY carvedilol 6.25 mg tablet 6.25 mg PO BID lisinopril 5 mg tablet 5 mg PO DAILY Primary Care Provider: Morro Solorio Referrals: Morro Solorio MD [Primary Care Provider, Family Practice] - 3-5 Days if not improving Activity Restrictions/Additional Instructions: Labs look good. CAT scan was consistent with constipation. Use your GoLytely at home for the constipation. Drink a 10 ounce glasses every 30 minutes so you start having bowel movements. Follow-up with your doctor as needed. If you are having worsening pain or feel worse return. Print Language: Italian Disposition Disposition: Home, Self Care Discharge Date/Time: 07/26/25 15:55
--- OUTSIDE RECORDS SUMMARY | 2025-07-26 14:03 | XMS RPT_ITS | CCD ---
Author Organization [facility] Inform ion Partnership [facility] Care Team Providers Care Digester Hand Name Role Phone WALTER GRESHAM Attending Unavailable [...] Unavailable Tima Tello MD Primary Care Provider Provider Chavez URRUTIA Unavailable Unavailable Fowler PROCESS SUPERVISOR.PAPER PROCESSING MACHINE HELPER, Charo Unavailable TIMA TELLO Primary Care Unavailab [...] Unavailable Juanita RN, Irma Unavailable Unavailable Podlogar PROCESS SUPERVISOR.RENEE, Alejandra Unavailable Dylan PROCESS SUPERVISOR.PAPER PROCESSING MACHINE HELPERJenna Unavailable Lyndsey URRUTIA, Dr. Hooker Primary Care [...] TELLO Primary Care Unavailab le TIMA TELLO Referring Unavailab le GERMANIA TELLOER Arnulfo Primary [...] Plata Referring Unavailable David Petersen Attending Unavailable [facility] Unavailable Roxana Plata Attending Unavailable Roxana Plata Referring Unavailable [facility] Primary [facility] Unavailable Blaze Burnett Attending Unavailable Blaze Burnett Referring Unavailable Jose Valderrama Attending Unavailable Jose Valderrama Referring Unavailable [facility] Unavailable Roxana Plata Attending Unavailable Roxana Plata Referring Unavailable [facility] Primary Care Unavailable Allergies Allergy Classification Reported Allergen(s) Allergy Type Date of Onset Reaction(s) Facility Penicillins (antibiotic) (1 source) Penicillins Drug Allergy 8 [facility] (1 source) Codeine Drug Allergy 7 [facility] Work Phone: (1 source) oxyCODONE Drug Allergy 7 [facility] Work Phone: (5 sources) Penicillins; Translations: [PENICILLINS] Propensity to adverse reactions to drug 8 [facility] Work Phone: (4 sources) Penicillins Propensity to adverse reactions 8 [facility] Work Phone: (20 sources) Penicillins Drug Allergy 8 [facility] (20 sources) Penicillins Propensity to adverse reactions 4 [facility] (15 sources) Penicillins Drug Allergy 8 [facility] (1 source) Penicillins Allergy to substance 4 [facility] (1 source) Penicillins Drug allergy (disorder) 4 [facility] Repository Medications Current Medications Medication Drug Class(es) [...] MG tablet Indications: Coronary artery disease involving kaw coronary artery of kaw heart without angina pectoris Take 1 tablet [...] 1 Bottle by mouth 2 times daily. 62658 mL 1 09/18/2024 10/18/2024 Active pantoprazole 20 [...] crush, chew, or split. polyethylene glycol 3350 53716 mg powder for oral solution (13 sources) [...] specified postprocedural states 20 ml albumin human, mcc 250 mg/ml injection (10 sources) Human Serum [...] Intraprocedure docusate sodium 50 mg / sennosides, mcc 8.6 mg oral tablet (2 sources) Start: [...] 07-25-2024 IntraVENous, As needed, Star ting on Amrjorie 07/25/24 at 0729, Anesthesia Intraprocedure mupirocin 0.02 [...] at 0945, Anesthesia Intraprocedure polyethylene glycol 3350 605353 mg / potassium chloride 2970 mg / sodium bicarbonate 6740 mg / sodium chloride 5860 mg / sodium sulfate 94003 mg powder for oral solution (5 sources) [...] goal of therapy 25 ml protamine sulfate (mcc) 10 mg/ml injection (1 source) Start: 07-25-2024 [...] 20 ml/hr to SP(introducer) and WT on Florence Turner Catheter; once Florence discontinued run at 20 ml/hr through SP(introducer) [...] hour 50 mL/hr, IntraVENous, Continuous, Starting on Marjorie 07/25/24 at 0530, Preprocedure, Upon admission to [...] Coronary atherosclerosis; Translations: [Atherosclerotic heart disease of kaw coronary artery without angina pectoris] Onset: 11-29-2016 [...] Test Name Value Interpretation Reference Range Facility [facility] 06-03-2025 CNOV Office Visit (BLAKE ) -- MARKSHARONDA Romero ([id number]) 1955 M [facility] Date Time Provider Department [...] do not hesitate to send me a Hydrocapsule message or call. Maxine Gould PA-C We [...] for psoriasis. (more content not included)... Normal [facility] CNOVSPon 05-14-2025 CNOVSP Visit (SP) Office (H EMAWS) -- SHARONDA FLORES ([id number]) 1955 [facility] Date Time Provider Department 05/14/25 8:50 AM [...] Abdominal ao (more content not included)... Normal [facility] CNOVon 04-21-2025 CNOV Office Visit (YULIYAWS ) -- SHARONDA FLORES ([id number]) 1955 M [facility] Date Time Provider Department 04/21/25 7:20 AM ALEJANDRA VIRAMONTES During your visit today, we recorded the following information about you: Pulse Blood pressure Weight Height 63/minute 144/87 74.4 kg 1.69 m Alejandra Viramontes APRN.CNP 04/21/2025 3:15 PM Signed 04/21/2025 Patient presents with: Follow Up Results Recording using Wrike software for draft documentation of the visit was discussed with the patient/authorized construction representative; all questions welcomed and answered. Patient/authorized construction representative agreed to proceed SUBJECTIVE: This is a [...] neoplasm of colon Coronary artery disease involving kaw coronary artery of kaw heart without angina pectoris Dr. Tineo Essential [...] block, mediastinal lymph node dissection Psoriasis [facility] S/P lobectomy of lung S/P triple vessel [...] routine visit, sooner if needed Alejandra PodlogSESAR alcala.PAPER PROCESSING MACHINE HELPER Prescription instructions reviewed with patient as applicable. Patient advised if symptoms do not improve or if symptoms worsen sooner, to contact their primary care physician. Potential red flag symptoms discussed with the patient. Reviewed appropriate action plan to take if red flag symptoms occur. Patient agreeable to treatm (more content not included)... Normal [facility] CNOVon 04-15-2025 CNOV Office Visit (GENSWS ) -- SHARONDA FLORES ([id number]) 1955 [facility] Date Time Provider Department 04/15/25 10:00 AM SARAY MARINELLI GENS During your visit today, we recorded the following information about you: Saray Marinelli APRN.CNP 04/15/2025 10:12 AM Signed FOLLOW UP VISIT - ENDOSCOPY Sharonda Flores 1955 [id number] REFERRING PHYSICIAN: No referring provider defined for [...] Date Reviewed: 04/15/2025 Reviewed by: Saray Marinelli APRN.PAPER PROCESSING MACHINE HELPER - Fully Assessed Reason for Visit: Follow [...] (ZETIA) 10 (more content not included)... Normal [facility] CN Office Visit (VASSWS ) -- SHARONDA FLORES ([id number]) 1955 M [facility] Date Time Provider Department 04/15/25 8:30 AM CRISTO LOERAS During your visit today, we recorded the following information about you: Pulse Blood pressure 71/minute 131/76 Cristo Loera, DO 04/15/2025 4:31 PM Signed Heart, Vascular [facility] Thoracic [place] DEPARTMENT OF VASCULAR SURGERY OUTPATIENT VISIT DATE April 15, 2025 OUTPATIENT VISIT TYPE CONSULTATION SERVICE DATE: 04/15/2025 SERVICE TIME: 8:18 AM PRIMARY CARE PHYSICIAN: Tima Tello MD REFERRING PROVIDER: Tima Tello [facility] [address] Consult requested for an opinion regarding the [...] neoplasm of colon Coronary artery disease involving kaw coronary artery of kaw heart without angina pectoris Dr. Tineo Essential [...] block, mediastinal lymph node dissection Psoriasis [facility] S/P lobectomy of lung S/P triple vessel [...] Malaise and (more content not included)... Normal [facility] [id number] 36 Pended rx, PROCESS SUPERVISOR to s ign. BETH Dr. Tineo 11/13/24. CBC completed 03/19/25 Normal [facility] 36 Requesting refill clopidogrel (Plavix) 75 MG tablet [facility] [place] Normal [facility] 36 Discussed with pt, h e is reaching out to Dr. Tineo's office for refills. [facility] 36on 04-13-2025 36 Name of caller: Len Contact phone number: [phone] Relationship to Patient: patient Provider: [facility] Practice: [...] hours to return their call: Yes Normal [facility] CT ABD/PEL W IVCONon 025 CT ABD/PEL W IVCON * * *Final Report* * * DATE OF EXAM: Apr 11 2025 12:04PM [facility] 0530 - CT ABD/PEL W IVCON / [...] aorta. Atherosclerotic ulcer in the abdomen aorta. High Lead Yarder: [facility] Transcribe Date/Time: Apr 11 2025 12:30P Dictated by : JAIRO CARMONA MD This examination was interpreted and the report reviewed and electronically signed by: JAIRO CARMONA MD on Apr 11 2025 12:45PM [facility] [id number] Normal [facility] CT Abdomen and Pelvis W cont rast Ana Rosa 04-11-2025 IMPRESSION: Subcentimeter low-attenuation lesions or cysts in the liver. Bowel wall thickening in the sigmoid colon and descending colon, without adjacent soft tissue stranding or edema. Please clinically correlate. AAA in the distal abdominal aorta. Atherosclerotic ulcer in the abdomen aorta. High Lead Yarder: [facility] Transcribe Date/Time: Apr 11 2025 12:30P Dictated by : JAIRO CARMONA MD This examination was interpreted and the report reviewed and electronically signed by: JAIRO CARMONA MD on Apr 11 2025 12:45PM [facility] DIVISION OF RADIOLOGY * * *Final Report* * * DATE OF EXAM: Apr 11 2025 12:04PM [facility] 0530 - CT ABD/PEL W IVCON / [...] No additional findings. DIVISION OF RADIOLOGY Provider, [facility] - 04/11/2025 * * *Final Report* * * DATE OF EXAM: Apr 11 2025 12:04PM [facility] 0530 - CT ABD/PEL W IVCON / [...] aorta. Atherosclerotic ulcer in the abdomen aorta. High Lead Yarder: [facility] Transcribe Date/Time: Apr 11 2025 12:30P Dictated by : JAIRO CARMONA MD This examination was interpreted and the report reviewed and electronically signed by: JAIRO CARMONA MD on Apr 11 2025 12:45PM EST [facility] Radiology Study observation (narrative) [facility] CT Abdomen and Pelvis W cont rast IVOrdered By: Ccf Provider on 04-11-2025 [facility] CNOVSPon 04-09-2025 CNOVSP Visit (SP) Office (H EMAWS) -- SHAORNDA FLORES ([id number]) 1955 M [facility] Date Time Provider Department 04/09/25 9:10 AM [...] neoplasm of colon Coronary artery disease involving kaw coronary artery of kaw heart without angina pectoris Dr. Tineo (more content not included)... Normal [facility] [id number] 04-08-2025 [id number] HNO ID: [id number] Author: JUANITA GODFREY RN Service: ? Author Type: Registered Nurse Type: [id number] Filed: 04/08/2025 16:17 Note Text: The patient received a copy of Colonoscopy and EGD discharge instructions that contain information for how to contact the physician who performed the procedure and when to seek medical care. Normal [facility]-08-[facility] Name: Sharonda Flores Procedure Date: 04/08/2025 3:07 PM Date of : 1955 Admit Type: Outpatient Age: 69 Gender: Male Note Status: Geodetic Engineer Override Procedure: Colonoscopy Indications: Melena Providers: Mae [...] the patient. Procedure Code(s): --- Professional --- 08903, Colonoscopy, flexible; diagnostic, including collection of specimen(s) by brushing or washing, when performed (separate procedure) Diagnosis Code(s): --- Professional --- K57.30, Diverticulosis of large intestine without perforation or abscess without bleeding K92.1, Melena (includes Hematochezia) K64.8, Other hemorrhoids CPT copyright 2020 [employer]. All rights reserved. The codes documented in this report are preliminary and upon valve repairer reclamation review may be revised to meet current compliance requirements. Attending Participation: I personally performed the entire procedure. Scope In: 3:41:47 PM Scope Out: 3:56:14 PM MD Mae Calvert MD 04/08/2025 4:02 (more content not included)... Normal [facility] EGD Study observation Gasper aleman 04-08-2025 [place] [facility] Gastrointestinal Endoscopy Patient Name: Sharonda Flores Procedure [...] future endoscopies Procedure Code(s): --- Professional --- 85254, Esophagogastroduodenoscopy , flexible, transoral; diagnostic, including col (more content not included)... PROVATION [facility] Flexible sigmoidoscopy study on 04-08-2025 [place] [facility] Gastrointestinal Endoscopy Patient Name: Sharonda Flores Procedure [...] for discussio (more content not included)... PROVATION [facility] HISTORY PHYSICALon HISTORY PHYSICAL HNO ID: [id number] Author: MAE ROBLES MD Service: General Surgery Author Type: Physician Type: H&P Filed: 04/08/2025 13:34 Note Text: HISTORY AND PHYSICAL Sharonda Flores : 1955 REFERRING PHYSICIAN: Tima Tello [facility] [address] CHIEF COMPLAINT: Patient presents with: Rectal Problem: [...] CABG last year. Hx of CABG (06/2024), MD s/p stents (2011), HLD, HTN AND AAA- follow with cardiology On plavix He CP, SOB, dizziness, palpitations, syncope, edema, recent hospitalizations Hx of RUL wedge 01/2024 d/t lung cancer. No chemo or radiation. Sharonda has undergone prior endoscopy. Last colonoscopy was 07/[address]za [address] [facility]. Sedation: Midazolam 5 mg IV, Fentanyl 100 [...] neoplasm of colon Coronary artery disease involving kaw coronary artery of kaw heart without angina pectoris Dr. Tineo Essential [...] block, mediastinal lymph node dissection Psoriasis [facility] S/P lobectomy of lung S/P triple vessel [...] Known P (more content not included)... Normal [facility] No Panel Informationon 04-08 Radiology Study observation (narrative) [facility] Pathology biopsy report Mustapha (Tiss)on 04-08-2025 AP DISCLAIMER Normal [facility] Comment on above: Order Comment: Speci men Type: TISSUE SPECIMENOrdering Facility: [facility] Address: [address] [place] [address] Result Comment: Kathy palomo Developed Test (LDT) Disclaimer: Performance characteristics of immunohistochemical, immunofluorescent, and chromogenic in-situ hybridization tests have been determined by the performing laboratory within the [facility] Department of Pathology and Laboratory Medicine ([facility], [facility], [facility], [facility], [facility], [facility], or [facility]) in a manner consistent with CLIA requirements. One or more of these tests may not have been cleared or approved by the FDA. The [facility] Department of Pathology and Laboratory Medicine is regulated under CLIA as qualified to perform high-complexity testing. These tests are used for clinical purposes. These should not be regarded as investigational or for research. Positive and negative controls stain appropriately. Digital pathology was utilized on all slides in rendering a final diagnosis. Performed By: #### 6 6121-5 ####[facility] LABCLIA [id number] [address] [place] CASE REPORT Normal [facility] Comment on above: Order Comment: Vernon sterling Type: TISSUE SPECIMENOrdering Facility: [facility] Address: [address] [place] [address] Result Comment: Surg ica Pathology Report Case: [id number] Authorizing Provider: Mae Robles MD Collected: 04/08/2025 03:25 PM Ordering Location: Ambulatory Surgery Received: 04/08/2025 05:11 PM Pathologist: Juice Manjarrez MD Specimens: A) - Small Bowel, Duodenum, Biopsy B) - Stomach, Antrum, Biopsy, Antral bx for H/H C) - Stomach, Biopsy, stomach body bx Performed By: #### 6 6121-5 ####[facility] LABCLIA [id number] [address] FINAL DIAGNOSIS Normal [facility] Comment on above: Order Comment: Charlesi asher Type: TISSUE SPECIMENOrdering Facility: [facility] Address: [address] [place] [address] Result Comment: A. S mall bowel, duodenum, [...] 1132 EDT Performed By: #### 6 6121-5 ####[facility] LABCLIA [id number] [address] FINAL PERFORMING LAB Normal [facility] Comment on above: Order Comment: Charlesi asher Type: TISSUE SPECIMENOrdering Facility: [facility] Address: [address] [place] [address] Result Comment: Diag nostic interpretation performed at: [facility], [address] [place], [place] [address] CLIA# [id number] Market Risk Analyst: Bjorn Zuleta MD Performed By: #### 6 6121-5 ####[facility] LABIA [id number] [place] [address] [place] GROSS DESCRIPTION Normal [facility] Comment on above: Order Comment: Speci men Type: TISSUE SPECIMENOrdering Facility: [facility] Address: [address] [place] [address] Result Comment: A. S mall Bowel, Duodenum, [...] 2025 2:38 AM Gross examination performed at [facility], [address] [place] [address] Performed By: #### 6 6121-5 ####[facility] LABIA [id number] [place] [address] [place] Upper GI endoscopy 04-08- 025 Upper GI endoscopy [facility] Gastrointestinal Endoscopy Patient Name: Sharonda Flores Procedure Date: 04/08/2025 3:08 PM Date of : 1955 Admit Type: Outpatient Age: 69 Gender: Male Note Status: Geodetic Engineer Override Procedure: Upper GI endoscopy Indications: Abdominal [...] future endoscopies Procedure Code(s): --- Professional --- 74312, Esophagogastroduodenoscopy , flexible, transoral; diagnostic, including collection of specimen(s) by brushing or washing, when performed (separate procedure) Diagnosis Code(s): --- Professional --- R12, Heartburn CPT copyright 2020 [employer]. All rights reserved. The codes documented in this report are preliminary and upon valve repairer reclamation review may be revised to meet current compliance requirements. Attending Participation: I personally performed the entire procedure. Scope In: 3:24:06 PM Scope Out: 3:33:37 PM MD Mae Calvert MD 04/08/2025 3:38:33 PM This report has been signed electronically by Mae Robles MD Number of Addenda: 0 Note Initiated On: 04/08/2025 3:08 PM Estimated Blood Loss: Estimated blood loss was minimal. Normal [facility] Panel Informationon 03-27 IMPRESSION: 1. Gallbladder is contracted with thickened wall 2. Spleen is mildly enlarged High Lead Yarder: BETTY Transcribe Date/Time: Mar 27 2025 9:55A Dictated by : EIRCA LOPEZ DO This examination was interpreted and the report reviewed and electronically signed by: ERICA LOPEZ DO on Mar 27 2025 10:15AM [facility] DIVISION OF RADIOLOGY Radiology Study observation (narrative) [facility] No Panel InformationOrdered By: Ccf Provider on 03-27-2025 [facility] US ABD RIGHT UPPER QUADRANTo n 03-27-2025 [...] thickened wall 2. Spleen is mildly enlarged High Lead Yarder: [facility] Transcribe Date/Time: Mar 27 2025 9:55A Dictated by : ERICA LOPEZ DO This examination was interpreted and the report reviewed and electronically signed by: ERICA LOPEZ DO on Mar 27 2025 10:15AM EST [id number] Normal [facility] US ABD SPLEEN - NBon 025 [...] thickened wall 2. Spleen is mildly enlarged High Lead Yarder: [facility] Transcribe Date/Time: Mar 27 2025 9:55A Dictated by : ERICA LOPEZ DO This examination was interpreted and the report reviewed and electronically signed by: ERICA LOPEZ DO on Mar 27 2025 10:15AM [facility] US ABD SPLEEN -NBon 03-27-20 US [...] thickened wall 2. Spleen is mildly enlarged High Lead Yarder: [facility] Transcribe Date/Time: Mar 27 2025 9:55A Dictated by : ERICA LOPEZ DO This examination was interpreted and the report reviewed and electronically signed by: ERICA LOPEZ DO on Mar 27 2025 10:15AM EST [id number] Normal [facility] US Abdomen RUQon 03-27-2025 * * [...] portal vein: Unremarkable DIVISION OF RADIOLOGY Provider, [facility] - 03/27/2025 * * *Final Report* * [...] thickened wall 2. Spleen is mildly enlarged High Lead Yarder: [facility] Transcribe Date/Time: Mar 27 2025 9:55A Dictated by : ERICA LOPEZ DO This examination was interpreted and the report reviewed and electronically signed by: ERICA LOPEZ DO on Mar 27 2025 10:15AM EST [facility] CNOVon 03-26-2025 CNOV Office Visit (PULMWS ) -- SHARANSHARONDA HERNANDEZ ([id number]) 1955 [place] [facility] Date Time Provider Department 03/26/25 9:30 AM GISSELLE PHELAN PULMWS During your visit today, we recorded the following information about you: Pulse Respiration Blood pressure Weight 81/minute 15/minute 120/74 73.9 kg Gisselle Phelan, PROCESS SUPERVISOR.PAPER PROCESSING MACHINE HELPER 03/26/2025 10:12 AM Signed Pulmonary Medicine Patients name: Sharonda Flores PCP: Tima Tello MD CC: follow-up HPI: Sharonda Flores is a 69 year old male former 37 pack year smoker, quitting in 2010 with PMH significant for CAD s/p stents, s/p CABG 06/2024, PAD, psoriasis, pulmonary nodules, adenocarcinoma of lung s/p RUL lobectomy 01/2024. No chemotherapy or radiation, follows with oncology. [facility] 08/2024 with stable symptoms. He presents today [...] neoplasm of colon Coronary artery disease involving kaw coronary artery of kaw heart without angina pectoris Dr. Tineo Essential [...] block, mediastinal lymph node dissection Psoriasis [facility] S/P lobectomy of lung S/P triple vessel [...] nodules are visualized. 2. No thoracic lymphadenopathy High Lead Yarder: [facility] Transcribe Date/Time: Mar 18 2025 2:48P [...] swelling. Musculo (more content not included)... Normal [facility] CNOVon 03-21-2025 CNOV Office Visit (GENSWS ) -- SHARONDA FLORES ([id number]) 1955 [facility] Date Time Provider Department 03/21/25 9:00 AM SARAY MARINELLI GENSWS During your visit today, we recorded the following information about you: Pulse Respiration Blood pressure Weight 66/minute 14/minute 151/72 74.2 kg Saray Marinelli APRN.CNP 03/21/2025 9:26 AM Signed HISTORY AND PHYSICAL Sharonda Flores : 1955 REFERRING PHYSICIAN: Tmia Tello [address] [facility] [address] CHIEF COMPLAINT: Patient presents with: Rectal Problem: [...] CABG last year. Hx of CABG (06/2024), MD s/p stents (2011), HLD, HTN AND AAA- follow with cardiology On plavix He CP, SOB, dizziness, palpitations, syncope, edema, recent hospitalizations Hx of RUL wedge 01/2024 d/t lung cancer. No chemo or radiation. Sharonda has undergone prior endoscopy. Last colonoscopy was 07/[address] Ariza [address] [facility]. Sedation: Midazolam 5 mg IV, Fentanyl 100 [...] neoplasm of colon Coronary artery disease involving kaw coronary artery of kaw heart without angina pectoris Dr. Tineo Essential [...] block, mediastinal lymph node dissection Psoriasis [facility] S/P lobectomy of lung S/P triple vessel [...] Father detai (more content not included)... Normal [facility] CBC W Auto Differential pane l (Bld)on 03-19-2025 Basophils (Bld) [#/Vol] 0.04 10*3/uL Normal <0.11 [facility] Comment on above: Order Comment: Speci men Type: BLOOD SPECIMENOrdering Facility: [facility] Address: [address] [place] [address] Performed By: #### 5 7021-8 ####[facility] LABCLIA [id number] [facility] [facility] [address] [place] Basophils/100 WBC (Bld) 0.8 % Normal [facility] Comment on above: Order Comment: Speci men Type: BLOOD SPECIMENOrdering Facility: [facility] Address: [address] [place] [address] Performed By: #### 5 7021-8 ####[facility] LABCLIA [id number] [facility] [place] [address] [place] Differential cell count method Nom (Bld) Auto Normal [facility] Comment on above: Order Comment: Speci men Type: BLOOD SPECIMENOrdering Facility: [facility] Address: [address] [place] [address] Performed By: #### 5 7021-8 ####[facility] LABCLIA [id number] [place] [address] [place] Eosinophils (Bld) [#/Vol] 0.10 10*3/uL Normal <0.46 [facility] Comment on above: Order Comment: Speci men Type: BLOOD SPECIMENOrdering Facility: [facility] Address: [address] [place] [address] Performed By: #### 5 7021-8 ####[facility] LABCLIA [id number] [place] [address] [place] Eosinophils/100 WBC (Bld) 2.1 % Normal [facility] Comment on above: Order Comment: Speci men Type: BLOOD SPECIMENOrdering Facility: [facility] Address: [address] [place] [address] Performed By: #### 5 7021-8 ####[facility] LABCLIA [id number] [place] [address] [place] Erythrocyte distribution width (RBC) [Ratio] 12.7 % Normal 11.5-15.0 [facility] Comment on above: Order Comment: Speci men Type: BLOOD SPECIMENOrdering Facility: [facility] Address: [address] [place] [address] Performed By: #### 5 7021-8 ####[facility] LABCLIA [id number] [place] [address] [place] Hematocrit (Bld) [Volume fraction] 44.4 % Normal 39.0-51.0 [facility] Comment on above: Order Comment: Speci men Type: BLOOD SPECIMENOrdering Facility: [facility] Address: [address] [place] [address] Performed By: #### 5 7021-8 ####[facility] LABCLIA [id number] [place] [address] [place] Hemoglobin (Bld) [Mass/Vol] 14.9 g/dL Normal 13.0-17.0 [facility] Comment on above: Order Comment: Speci men Type: BLOOD SPECIMENOrdering Facility: [facility] Address: [address] [place] [address] Performed By: #### 5 7021-8 ####[facility] LABCLIA [id number] [place] [address] [place] Immature granulocytes (Bld) [#/Vol] 10*3/uL Normal <0.10 [facility] Comment on above: Order Comment: Speci men Type: BLOOD SPECIMENOrdering Facility: [facility] Address: [address] [place] [address] Performed By: #### 5 7021-8 ####[facility] LABCLIA [id number] [place] [address] [place] Immature granulocytes/100 WBC (Bld) 0.4 % Normal [facility] Comment on above: Order Comment: Speci men Type: BLOOD SPECIMENOrdering Facility: [facility] Address: [address] [place] [address] Performed By: #### 5 7021-8 ####[facility] LABCLIA [id number] [place] [address] [place] Lymphocytes (Bld) [#/Vol] 0.90 10*3/uL Low 1.00-4.00 [facility] Comment on above: Order Comment: Speci men Type: BLOOD SPECIMENOrdering Facility: [facility] Address: [address] [place] [address] Performed By: #### 5 7021-8 ####[facility] LABCLIA [id number] [place] [address] [place] Lymphocytes/100 WBC (Bld) 18.6 % Normal [facility] Comment on above: Order Comment: Speci men Type: BLOOD SPECIMENOrdering Facility: [facility] Address: [address] [place] [address] Performed By: #### 5 7021-8 ####[facility] LABCLIA [id number] [place] [address] [place] MCH (RBC) [Entitic mass] 28.9 pg Normal 26.0-34.0 [facility] Comment on above: Order Comment: Speci men Type: BLOOD SPECIMENOrdering Facility: [facility] Address: [address] [place] [address] Performed By: #### 5 7021-8 ####[facility] LABCLIA [id number] [place] [address] [place] MCHC (RBC) [Mass/Vol] 33.6 g/dL Normal 30.5-36.0 [facility] Comment on above: Order Comment: Speci men Type: BLOOD SPECIMENOrdering Facility: [facility] Address: [address] [place] [address] Performed By: #### 5 7021-8 ####[facility] LABCLIA [id number] [place] [address] [place] MCV (RBC) [Entitic vol] 86.2 fL Normal 80.0-100.0 C [facility] Comment on above: Order Comment: Speci men Type: BLOOD SPECIMENOrdering Facility: [facility] Address: [address] [place] [address] Performed By: #### 5 7021-8 ####[facility] LABCLIA [id number] [place] [address] [place] Monocytes (Bld) [#/Vol] 0.45 10*3/uL Normal <0.87 [facility] Comment on above: Order Comment: Speci men Type: BLOOD SPECIMENOrdering Facility: [facility] Address: [address] [place] [address] Performed By: #### 5 7021-8 ####[facility] LABCLIA [id number] [place] [address] [place] Monocytes/100 WBC (Bld) 9.3 % Normal [facility] Comment on above: Order Comment: Speci men Type: BLOOD SPECIMENOrdering Facility: [facility] Address: [address] [place] [address] Performed By: #### 5 7021-8 ####[facility] LABCLIA [id number] [place] [id number] [place] Neutrophils (Bld) [#/Vol] 3.34 10*3/uL Normal 1.45-7.50 [facility] Comment on above: Order Comment: Speci men Type: BLOOD SPECIMENOrdering Facility: [facility] Address: [address] [place] [address] Performed By: #### 5 7021-8 ####[facility] LABCLIA [id number] [place] [address] [place] Neutrophils/100 WBC (Bld) 68.8 % Normal [facility] Comment on above: Order Comment: Speci men Type: BLOOD SPECIMENOrdering Facility: [facility] Address: [address] [place] [address] Performed By: #### 5 7021-8 ####[facility] LABCLIA [id number] [place] [address] [place] Nucleated RBC (Bld) [#/Vol] 10*3/uL Normal <0.01 [facility] Comment on above: Order Comment: Speci men Type: BLOOD SPECIMENOrdering Facility: [facility] Address: [address] [place] [address] Performed By: #### 5 7021-8 ####[facility] LABCLIA [id number] [place] [address] [place] Nucleated RBC/100 WBC (Bld) [Ratio] 0.0 /100 WBC Normal [facility] Comment on above: Order Comment: Speci men Type: BLOOD SPECIMENOrdering Facility: [facility] Address: [address] [place] [address] Performed By: #### 5 7021-8 ####[facility] LABCLIA [id number] [place] [address] [place] Platelet mean volume (Bld) [Entitic vol] 12.2 fL Normal 9.0-12.7 [facility] Comment on above: Order Comment: Speci men Type: BLOOD SPECIMENOrdering Facility: [facility] Address: [address] [place] [address] Performed By: #### 5 7021-8 ####[facility] LABCLIA [id number] [place] [address] [place] Platelets (Bld) [#/Vol] 135 10*3/uL Low 150-400 [facility] Comment on above: Order Comment: Speci men Type: BLOOD SPECIMENOrdering Facility: [facility] Address: [address] [place] [address] Performed By: #### 5 7021-8 ####[facility] LABCLIA [id number] [place] [address] [place] RBC (Bld) [#/Vol] 5.15 10*6/uL Normal 4.20-6.00 [facility] Comment on above: Order Comment: Speci men Type: BLOOD SPECIMENOrdering Facility: [facility] Address: [address] [place] [address] Performed By: #### 5 7021-8 ####[facility] LABIA [id number] [place] [address] [place] WBC (Bld) [#/Vol] 4.85 10*3/uL Normal 3.70-11.00 [facility] Comment on above: Order Comment: Speci men Type: BLOOD SPECIMENOrdering Facility: [facility] Address: [address] [place] [address] Performed By: #### 5 7021-8 ####[facility] LABIA [id number] [place] [address] [place] CNOVon 03-19-2025 CNOV Office Visit (FAMPWS ) -- SHARONDA FLORES ([id number]) 1955 M [facility] Date Time Provider Department 03/19/25 7:20 AM TIMA TELLOPWS During your visit today, we recorded the following information about you: Pulse Blood pressure Weight Height 73/minute 116/68 72 kg 1.69 m Tima Tello MD 03/19/2025 8:06 AM Signed Chief Complaint Patient presents with: Constipation Rectal Problem Recording using ambient AI software for draft documentation of the visit was discussed with the patient/authorized construction representative; all questions welcomed and answered. Patient/authorized construction representative agreed to proceed HPI Sharonda Flores is [...] neoplasm of colon Coronary artery disease involving kaw coronary artery of kaw heart without angina pectoris Dr. Tineo Essential [...] block, mediastinal lymph node dissection Psoriasis [facility] S/P lobectomy of lung S/P triple vessel [...] 30 mg (more content not included)... Normal [facility] Comprehensive metabolic 2000 panelon 03-19-2025 Albumin [Mass/Vol] 4.8 g/dL Normal 3.9-4.9 [facility] Comment on above: Order Comment: Speci men Type: BLOOD SPECIMENOrdering Facility: [facility] Address: [address] [place] [address] [place] [address] Performed By: #### 2 4323-8 ####[facility] LABCLIA [id number] [facility] [place] [id number] [place] ALP [Catalytic activity/Vol] 82 U/L Normal 38-113 [facility] Comment on above: Order Comment: Speci men Type: BLOOD SPECIMENOrdering Facility: [facility] Address: [address] [place] [address] Performed By: #### 2 4323-8 ####[facility] LABCLIA [id number] [facility] [place] [address] [place] ALT [Catalytic activity/Vol] 13 U/L Normal 10-54 [facility] Comment on above: Order Comment: Speci men Type: BLOOD SPECIMENOrdering Facility: [facility] Address: [address] [place] [address] Performed By: #### 2 4323-8 ####[facility] LABCLIA [id number] [place] [id number] [place] Anion gap [Moles/Vol] 11 mmol/L Normal 8-15 [facility] Comment on above: Order Comment: Speci men Type: BLOOD SPECIMENOrdering Facility: [facility] Address: [address] [place] [address] Performed By: #### 2 4323-8 ####[facility] LABCLIA [id number] [place] [id number] [place] AST [Catalytic activity/Vol] 20 U/L Normal 14-40 [facility] Comment on above: Order Comment: Speci men Type: BLOOD SPECIMENOrdering Facility: [facility] Address: [address] [place], [place] [address] Performed By: #### 2 4323-8 ####[facility] LABCLIA [id number] [place] [id number] [place] Bilirubin [Mass/Vol] 0.9 mg/dL Normal 0.2-1.3 [facility] Comment on above: Order Comment: Speci men Type: BLOOD SPECIMENOrdering Facility: [facility] Address: [address] [place] [address] Performed By: #### 2 4323-8 ####[facility] LABCLIA [id number] [facility] [address] [place] [address] [place] Calcium [Mass/Vol] 9.2 mg/dL Normal 8.5-10.2 [facility] Comment on above: Order Comment: Speci men Type: BLOOD SPECIMENOrdering Facility: [facility] Address: [address] [place], [place] [address] Performed By: #### 2 4323-8 ####[facility] LABCLIA [id number] [facility] [address] [place] [address] [place] Chloride [Moles/Vol] 103 mmol/L Normal 98-107 [facility] Comment on above: Order Comment: Speci men Type: BLOOD SPECIMENOrdering Facility: [facility] Address: [address] [place], [place] [address] Performed By: #### 2 4323-8 ####[facility] LABCLIA [id number] [address] [place] [address] [place] CO2 [Moles/Vol] 26 mmol/L Normal 22-30 [facility] Comment on above: Order Comment: Speci men Type: BLOOD SPECIMENOrdering Facility: [facility] Address: [address] [place], [place] [address] Performed By: #### 2 4323-8 ####[facility] LABCLIA [id number] [facility] [address] [place] [address] [place] Creatinine [Mass/Vol] 1.01 mg/dL Normal 0.73-1.22 [facility] Comment on above: Order Comment: Speci men Type: BLOOD SPECIMENOrdering Facility: [facility] Address: [address] [place], [place] [address] Performed By: #### 2 4323-8 ####[facility] LABCLIA [id number] [place] [id number] [place] eGFRcr SerPlBld CKD-EPI 2020 81 mL/min/1.73m??? Normal >=60 [facility] Comment on above: Order Comment: Vernon sterling Type: BLOOD SPECIMENOrdering Facility: [facility] Address: [address] [place] [address] Result Comment: Piedad mated Glomerular Filtration Rate [...] actual GFR. Performed By: #### 2 4323-8 ####[facility] LABIA [id number] [place] [address] [place] Glucose [Mass/Vol] 101 mg/dL High 74-99 [facility] Comment on above: Order Comment: Vernon sterling Type: BLOOD SPECIMENOrdering Facility: [facility] Address: [address] [place] [address] Result Comment: The [place] Diabetes Association (ADA) provides guidance for cutoff [...] Standards of Medical Care in Diabetes 2016, [place] Diabetes Association. Diabetes Care. 2016.39(Suppl 1). Performed By: #### 2 4323-8 ####[facility] LABCLIA [id number] [place] [id number] [place] Potassium [Moles/Vol] 3.8 mmol/L Normal 3.7-5.1 [facility] Comment on above: Order Comment: Speci men Type: BLOOD SPECIMENOrdering Facility: [facility] Address: [address] [place] [address] Performed By: #### 2 4323-8 ####[facility] LABCLIA [id number] [facility] [place] [id number] [place] Protein [Mass/Vol] 7.5 g/dL Normal 6.3-8.0 [facility] Comment on above: Order Comment: Speci men Type: BLOOD SPECIMENOrdering Facility: [facility] Address: [address] [place] [address] Performed By: #### 2 4323-8 ####[facility] LABCLIA [id number] [place] [address] [place] Sodium [Moles/Vol] 140 mmol/L Normal 136-144 [facility] Comment on above: Order Comment: Speci men Type: BLOOD SPECIMENOrdering Facility: [facility] Address: [address] [place] [address] Performed By: #### 2 4323-8 ####[facility] LABCLIA [id number] [address], [place] [address] [place] Urea nitrogen [Mass/Vol] 16 mg/dL Normal 9-24 [facility] Comment on above: Order Comment: Speci men Type: BLOOD SPECIMENOrdering Facility: [facility] Address: [address] [place] [address] Performed By: #### 2 4323-8 ####[facility] LABCLIA [id number] [place] [id number] [place] Hemoccult Stl Ql IAon 2024 Lower GI hemoglobin IA Ql (Stl) Positive Abnormal Negative [facility] Comment on above: Order Comment: Speci men Type: STOOL SPECIMENOrdering Facility: [facility] Address: [address] [place] [address] Performed By: #### 2 9771-3 ####[facility] LABCLIA [id number] [facility] [place] [id number] [place] CNPGisele 03-18-2025 CNPN Telephone (HEMAWS) -- SHARONDA FLORES ([id number]) 1955 M [facility] Date Time Provider Department [...] 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] Order(s):CT CHEST W IVCON [[id number]] Order #: [id number] FUTURE iv contrast (will be provided with [...] USE DISORDER [F17.200] 06/03/2008 SPRAIN SHOULDER/ARM NOS [[id number]] 06/03/2008 JOINT PAIN-ANKLE [M25.579] 06/03/2008 HERPES SIMPLEX NOS [B00.9] 06/03/2008 MIXED HYPERLIPIDEMIA [E78.2] 07/02/2008 SCREENING MAL NEOP-COLON [Z12.11] 10/08/2008 BENIGN NEOPLASM LG BOWEL [D12.6] 10/08/2008 Coronary artery disease involving kaw lacey* Essential hypertension [I10] Thrombocytopenia (HCC) [D69.6] Tinnitus of both ears [H93.13] Psoriasis [L4 (more content not included)... Normal [facility] CNOVSPon 03-17-2025 CNOVSP Visit (SP) Office (H EMAWS) -- SHARONDA FLORES ([id number]) 1955 M [facility] Date Time Provider Department 03/17/25 8:30 AM [...] USE DISORDER [F17.200] 06/03/2008 SPRAIN SHOULDER/ARM NOS [[id number]] 06/03/2008 JOINT PAIN-ANKLE [M25.579] 06/03/2008 HERPES SIMPLEX NOS [B00.9] 06/03/2008 MIXED HYPERLIPIDEMIA [E78.2] 07/02/2008 SCREENING MAL NEOP-COLON [Z12.11] 10/08/2008 BENIGN NEOPLASM LG BOWEL [D12.6] 10/08/2008 Coronary artery disease involving kaw lacey* Essential hypertension [I10] Thrombocytopenia (HCC) [D69.6] Tinnitus of both ears [H93.13] Psoriasis [L40.9] Abdominal aortic aneurysm (AAA) without rupture*06/08/2021 At risk for sleep apnea [Z91.89] 11/29/[address] lung nodules on CT [R91.8] 11/09/2023 Lung nodule [R91.1] 12/15/2023 S/P lobectomy of lung [Z90.2] 02/09/2024 Primary lung adenocarcinoma, right (HCC) [C34.9*03/11/2024 Encounter Status:Closed by ANALY DUMONT on 03/17/25 Normal [facility] Quantiferon TB-Gold+on 03-14 QFT MITOGEN IVAN > 10.00 Normal . [facility] Comment on above: Order Comment: FAX T O [phone] Performed By: #### L 3400.8000 #### [facility] [address] [place], [address] (584) QFT NIL VALUE 0.03 IU/mL Normal . [facility] Comment on above: Order Comment: FAX T O [phone] Performed By: #### L 3400.8000 #### [facility] [address] [place], [place], [address] (947) QFT TB GOLD+ Comment Normal . [facility] Comment on above: Order Comment: FAX T O [phone] Result Comment: Jairo tiFERON-TB Gold Plus is [...] test. Performed By: #### L 3400.8000 #### [facility] [address] [place], [place], [address] QFT TB POS CRIT Negative Normal Negative [facility] Comment on above: Order Comment: FAX T O [phone] Result Comment: No r esponse to M [...] interferon gamma. Chemiluminescence immunoassay methodology Performed at: [facility] [id number] Pack Master: Curt Taylor PhD, Phone: [phone] Performed By: #### L 3400.8000 #### [facility] [address] [place], [place], [address] QFT TB1+ AG IVAN 0.02 IU/mL Normal . [facility] Comment on above: Order Comment: FAX T O [phone] Performed By: #### L 3400.8000 #### [facility] [address] [place], [address] QFT TB2+ AG IVAN 0.02 IU/mL Normal . [facility] Comment on above: Order Comment: FAX T O [phone] Performed By: #### L 3400.8000 #### [facility] [address] [place], [address] Qualitative QuantiFERON-TB g old in tube testOrdered By: Jose Valderrama on 03-12-2025 M. tuberculosis tuberculin stim IFN-g Ql (Bld) 0.02 IU/mL . [facility] CT CHEST W IVCONon CT CHEST W IVCON * * *Final Report* * * DATE OF EXAM: Mar 11 2025 9:08AM [id number] - CT CHEST W IVCON / [...] nodules are visualized. 2. No thoracic lymphadenopathy High Lead Yarder: [facility] Transcribe Date/Time: Mar 18 2025 2:48P Dictated by : JOANNA LYONS MD This examination was interpreted and the report reviewed and electronically signed by: JOANNA LYONS MD on Mar 18 2025 2:57PM EST [id number] Normal [facility] Creatinine and Glomerular fi ltration rate.predicted panel (S/P/Bld)on 03-11-2025 Creatinine [Mass/Vol] 1.04 mg/dL Normal 0.73-1.22 [facility] Comment on above: Order Comment: Charlesi asher Type: BLOOD SPECIMENOrdering Facility: [facility] Address: [address] [place] [address] Performed By: #### 4 5066-8 ####[facility] [id number] [place] [address] [place] eGFRcr SerPlBld CKD-EPI 2020 78 mL/min/1.73m??? Normal >=60 [facility] Comment on above: Order Comment: Vernon sterling Type: BLOOD SPECIMENOrdering Facility: [facility] Address: [address], [place] [address] Result Comment: Piedad mated Glomerular Filtration Rate [...] actual GFR. Performed By: #### 4 5066-8 ####[facility] [id number] [address] OF [facility] 29on 11-13-2024 29 Addended by: BECKY GONZALEZ on: 11/13/2024 02:04 PM Modules accepted: Orders Normal [facility] Office Visiton 11-13-2024 Follow-up visit [id number] Luther Flores 1955 M Date Provider Department Center 11/13/2024 [id number] TINEO [facility] JAIR SHMGCV [address] Family History Problem Relation Age of Onset Heart disease Father No Known Problems Mother Cancer Maternal Grandfather Family Status - Relation Status Age at Father Mother Alive Brother Alive Maternal Grandfather Level of Service:46649 [place] OFFICE/OUTPATIENT ESTABLISHED MOD MDM 30 MIN Reason for Visit and Comments: Annual Exam [83] Normal [facility] Progress Noteon 11-13-2024 Progress Note [facility] [place] [address] [facility] [address] Dept: [phone] Dept Visit type: Established : 1955 Reason for Visit: Annual Exam Assessment and Plan 1. Coronary artery disease involving kaw coronary artery of kaw heart without angina pectoris 2. Mixed hyperlipidemia [...] REMOVAL 02/09/2024 Congenital heart disease Hyperlipidemia Hypertension MD, old [facility] PLACE Sleep apnea NO CPAP [...] 07/05/2024 Performed by Becky Tineo MD at [facility] Cardiac Cath/EP Lab CARDIAC PROCEDURE 03/15/2012 BMS [...] distress. Ap (more content not included)... [facility]on 10-31-2024 Progress Note EMR reviewed. Sharon grimes enrolled in [facility] Ambulatory Cardiac 90-day BPCI Program post-hospital discharge 07/31/24 DX-CABG x3 (GREY-LAD, SVG-Diag, SVG-PDA), LAD endarterectomy [facility], ZARI on 07/25/24 (Dr. Martinez). 90-day outreach made by 10/25/24 VM left. BPCI program is complete able to avoid any re-admissions during 90-day period case closed. Normal [facility] Progress Noteon 10-25-2024 Progress Note 10/25/24 Community Health Worker Patient active with: BPCI RN MARCI Grant Reason for Call: BPCI outreach Chart review completed. Follow up Appointments 11/13 Cardiology Placed a phone call no answer, left voice message stating reason for call. Left contact information for call back. BPCI end call. Normal [facility] Progress Noteon 10-10-2024 Progress Note EMR reviewed. Sharon grimes enrolled in [facility] Ambulatory Cardiac 90-day BPCI Program post-hospital discharge 07/31/24 DX-CABG x3 (GREY-LAD, SVG-Diag, SVG-PDA), LAD endarterectomy LEVH, ZARI on 07/25/24 (Dr. Martinez). 60-day outreach made by CHW 10/01/24 LVM. 90 day future outreach scheduled. Normal [facility] Progress Noteon 10-09-2024 Progress Note [facility]: CT SURGEONS AKR [address] [facility] [address] [facility] [address] Dept: [phone] Dept Loc: [phone] Visit type: Established patient Reason for Visit: [...] to use video. Patient location: Patient Location: [place]. This patient encounter is appropriate and reasonable [...] that they are currently in the state [facility]. If the patient is a minor, permission has been obtained by the parent or guardian for the patient to receive medical care at this visit. Subjective HPI: Sharonda Flores is a 68 y.o. male referred by Dr. Tineo for CABG. Patient's PMHx includes CAD (s/p several PCI, most recently 2011 - LAD, LCx, distal RCA with known KNOT CUTTER D2), preserved LVEF (65%), HTN, HLD, PAD (follows with vascular at [place]), prior tobacco use, pulmonary nodules, adenocarcinoma s/p RUL lobectomy 01/2024 (follows with Pulmonology), and psoriasis. Patient had presented to [place] ED with a sharp pain in the [...] requesting ens (more content not included)... Normal [facility] Progress Noteon 10-01-2024 Progress Note 10/01/24 Community Health Worker Patient active with: BPDARRIUS Grant Chart review completed. Follow up Appointments 10/09 Cardio Thoracic Surgery 11/13 Cardiology Placed a call no answer, left voice message stating reason for call. Left contact information for call back. Outreach scheduled Normal [facility] CNOVon 09-24-2024 CNOV Office Visit (PULMWS ) -- SHARONDA FLORES ([id number]) 1955 M [facility] Date Time Provider Department 09/24/24 8:00 AM GISSELLE PHELAN PULRamyaWS During your visit today, we recorded the following information about you: Pulse Respiration Blood pressure 66/minute 18/minute 118/72 Gisselle Phelan APRN.PAPER PROCESSING MACHINE HELPER 09/24/2024 9:56 AM Signed Pulmonary Medicine Patients [...] neoplasm of colon Coronary artery disease involving kaw coronary artery of kaw heart without angina pectoris Dr. Tineo Essential [...] block, mediastinal lymph node dissection Psoriasis [facility] S/P lobectomy of lung S/P triple vessel [...] in the trachea 3. No thoracic lymphadenopathy High Lead Yarder: BETTY Transcribe Date/Time: Sep 11 2024 9:31A Dictated by : JOANNA LYONS MD This examination was interpreted and the report reviewed and electronically signed by: JOANNA LYONS MD on Sep 11 2024 9:46AM EST Results-Findings * * *Final Report* * * DATE OF EXAM: Sep 06 2024 3:26PM [id number] - CT CHEST W IVCON / [...] likely infec (more content not included)... Normal [facility] CNOVon 09-17-2024 [facility] SHARONDA FLORES ([id number]) 1955 M [facility] Date Time Provider Department 09/17/24 8:20 AM [...] Recently completed CT chest PAD: followed with [facility] on 06/07/2024. No changes in current regime. PAST MEDICAL HISTORY Diagnosis Date Abdominal aortic aneurysm (AAA) without rupture (HCC) 3 x 3.1 cm 05/2021, repeat 1 year. Benign neoplasm of colon Coronary artery disease involving kaw coronary artery of kaw heart without angina pectoris Dr. Tineo Essential [...] block, mediastinal lymph node dissection Psoriasis [facility] S/P lobectomy of lung Thrombocytopenia (HCC) Tinnitus [...] 401.9, IC (more content not included)... Normal [facility] CNOVSPon 09-09-2024 CNOVSP Visit (SP) Office (H EMAWS) -- MARKLUTHERALEJANDRAMingo Heather ([id number]) 1955 M [facility] Date Time Provider Department [...] . Pos (more content not included)... Normal [facility] Progress Noteon 09-09-2024 Progress Note [facility]: CT SURGEONS [place] [address] [facility] [address] [facility] [address] Dept: [phone] Dept Loc: [phone] Visit type: Established patient Reason for Visit: Follow-up Assessment and Plan 1. S/P CABG (coronary artery bypass graft) 2. Essential hypertension 3. Atrial fibrillation, unspecified type (HCC) 07/25/24: Dr. Martinez- CABG x3 (GREY-LAD, SVG-Diag, SVG-PDA), LAD endarterectomy [facility], ZARI Requesting ensure x2 months. -Will send [...] reasonable under the circumstances: Recently assessed in [facility] . The patient has been advised of [...] stated that they are currently in the [facility]. If the patient is a minor, permission has been obtained by the parent or guardian for the patient to receive medical care at this visit. Subjective HPI: Sharonda Flores is a 68 y.o. male referred by Dr. Tineo for CABG. Patient's PMHx includes CAD (s/p several PCI, most recently 2011 - LAD, LCx, distal RCA with known KNOT CUTTER D2), preserved LVEF (65%), HTN, HLD, PAD (follows with vascular at [place]), prior tobacco use, pulmonary nodules, adenocarcinoma s/p RUL lobectomy 01/2024 (follows with Pulmonology), and psoriasis. Patient had presented to [place] ED with a sharp pain in the [...] healing. Pa (more content not included)... Normal [facility] CT CHEST W IVCONon CT CHEST W IVCON * * *Final Report* * * DATE OF EXAM: Sep 06 2024 3:26PM [facility] [id number] - CT CHEST W IVCON / [...] in the trachea 3. No thoracic lymphadenopathy High Lead Yarder[facility] Transcribe Date/Time: Sep 11 2024 9:31A Dictated by : JOANNA LYONS MD This examination was interpreted and the report reviewed and electronically signed by: JOANNA LYONS MD on Sep 11 2024 9:46AM EST [id number] Normal [facility] Lipid 1996 panelon 5 Cholesterol [Mass/Vol] 148 mg/dL Normal <200 [facility] Comment on above: Order Comment: Speci men Type: BLOOD SPECIMENOrdering Facility: [facility] Address: [address] [place] [address] Result Comment: <200 mg/dL, Desirable 200-239 mg/dL, Borderline high >239 mg/dL, High Performed By: #### 2 4331-1 ####[facility] LABCLIA [id number] [facility] [id number] [id number] [place] [address] [place] Cholesterol in HDL [Mass/Vol] 28 mg/dL Low >39 [facility] Comment on above: Order Comment: Charlesi men Type: BLOOD SPECIMENOrdering Facility: [facility] Address: [address] [place] [address] Result Comment: 40-5 9 mg/dL, Acceptable >59 mg/dL, High: Negative risk factor for coronary heart disease <40 mg/dL, Low: Positive risk factor for coronary heart disease Performed By: #### 2 4331-1 ####[facility] LABCLIA [id number] [address] [id number] [place] [address] [place] Cholesterol in LDL [Mass/Vol] 84 mg/dL Normal <100 [facility] Comment on above: Order Comment: Vernon men Type: BLOOD SPECIMENOrdering Facility: [facility] Address: [address] [place] [address] Result Comment: <100 mg/dL, Optimal 100-129 mg/dL, Near optimal/above optimal 130-159 mg/dL, Borderline high 160-189 mg/dL, High >189 mg/dL, Very high Secondary prevention optimal LDL Cholesterol levels are recommended to be < 70 mg/dL Performed By: #### 2 4331-1 ####[facility] LABCLIA [id number] [address] [id number] [place] [address] [place] Cholesterol in LDL/Cholesterol in HDL [Mass ratio] 3.00 {ratio} High <2.54 [facility] Comment on above: Order Comment: Charlesi men Type: BLOOD SPECIMENOrdering Facility: [facility] Address: [address] [place] [address] Result Comment: Lizbeth diaz: 1. National Cholesterol Education Program ATP III Guideline At-A-Glance Quick Desk Reference: National Heart, Lung, and Blood [place]. National Institutes of Health. 2001: NIH Publication No. 01-3305. 2. An International Atherosclerosis Society position paper: global recommendations for the management of dyslipidemia: executive summary, Atherosclerosis. 2014: 232(2):410-413. Performed By: #### 2 4331-1 ####[facility] LABCLIA [id number] [address] [id number] [place] [address] [place] Cholesterol in VLDL [Mass/Vol] 36 mg/dL High <30 [facility] Comment on above: Order Comment: Speci men Type: BLOOD SPECIMENOrdering Facility: [facility] Address: [address] [place] [address] Performed By: #### 2 4331-1 ####[facility] LABCLIA [id number] [address] [id number] [place] [address] [place] Cholesterol non HDL [Mass/Vol] 120 mg/dL Normal <130 [facility] Comment on above: Order Comment: Speci men Type: BLOOD SPECIMENOrdering Facility: [facility] Address: [address] [place] [address] Result Comment: <130 mg/dL, Optimal 130-159 mg/dL, Near optimal/above optimal 160-189 mg/dL, Borderline high 190-219 mg/dL, High >219 mg/dL, Very high Secondary prevention optimal non HDL Cholesterol levels are recommended to be <100 mg/dL Performed By: #### 2 4331-1 ####[facility] LABCLIA [id number] [address] [id number] [id number] Cholesterol.total/Stephanie sterol in HDL [Mass ratio] 5.29 {ratio} High <5.10 [facility] Comment on above: Order Comment: Speci men Type: BLOOD SPECIMENOrdering Facility: [facility] Address: [address] [place] [address] Performed By: #### 2 4331-1 ####[facility] LABCLIA [id number] [address] [id number] [place] [address] [place] FASTING TIME 24 hrs Normal [facility] Comment on above: Order Comment: Speci men Type: BLOOD SPECIMENOrdering Facility: [facility] Address: [address] [place] [address] Performed By: #### 2 4331-1 ####[facility] LABCLIA [id number] [address] [id number] [address] [place] Triglyceride [Mass/Vol] 182 mg/dL High <150 C [facility] Comment on above: Order Comment: Speci men Type: BLOOD SPECIMENOrdering Facility: [facility] Address: [address] [place] [address] Result Comment: <150 mg/dL, Normal 150-199 mg/dL, Borderline high 200-499 mg/dL, High >499 mg/dL, Very high Performed By: #### 2 4331-1 ####[facility] LABCLIA [id number] [address] [id number] [address] [place] Progress Noteon 09-02-2024 [...] clarify? No EMR reviewed. Patient enrolled in [facility] Ambulatory Cardiac 90-day BPCI Program post-hospital discharge 07/31/24 DX-CABG x3 (GREY-LAD, SVG-Diag, SVG-PDA), LAD endarterectomy [facility], ZARI on 07/25/24 (Dr. Martinez). 30-day outreach made spoke with patient reports has a cold with a cough mostly at night, (using pillow to splint chest), denies SOB, instructed patient to call PCP if cough worsens or persists. Patient is still active with [facility]- nursing, PT/OT per patient most likely 2 more visits. Patient inquired about cardiac rehab there is a standing order in place. Patient denies any other health questions at this time. CM to schedule future outreach. Normal [facility] Progress Noteon 08-28-2024 Progress Note [facility]: CT [address] [place] [address] Dept: [phone] Dept Loc: [phone] Visit type: Established patient Reason for Visit: [...] that they are currently in the state [facility]. If the patient is a minor, permission has been obtained by the parent or guardian for the patient to receive medical care at this visit. Subjective HPI: Sharonda Flores is a 68 y.o. male referred by Dr. Tineo for CABG. Patient's PMHx includes CAD (s/p several PCI, most recently 2011 - LAD, LCx, distal RCA with known KNOT CUTTER D2), preserved LVEF (65%), HTN, HLD, PAD (follows with vascular at [place]), prior tobacco use, pulmonary nodules, adenocarcinoma s/p RUL lobectomy 01/2024 (follows with Pulmonology), and psoriasis. Patient had presented to [place] ED with a sharp pain in the [...] Systems Co (more content not included)... Normal [facility] Progress Noteon 08-20-2024 Progress Note 08/20/24 [...] restrictions and he acknowledged. Outreach scheduled Normal [facility] Progress Note Completed 08/20/24 by CHW [...] re-admit to SNF/HHC if needed. Done Normal [facility] Progress Noteon 08-16-2024 Progress Note EMR reviewed. Sharon grimes enrolled in [facility] Ambulatory Cardiac 90-day BPCI Program post-hospital discharge 07/31/24 DX-CABG x3 (GREY-LAD, SVG-Diag, SVG-PDA), LAD endarterectomy [facility], ZARI on 07/25/24 (Dr. Martinez). 14-day outreach [...] 2 week phone call and PRN with [facility]. Future outreach scheduled. Weight restriction measures 1-4 weeks from date of surgery- 10lbs weight restriction: 5-8 weeks from date of surgery- 20lbs weight restriction: 9-12 weeks from date of surgery-30lbs weight restriction approximate end date: Reason for Visit: Follow-up 08/14/24 Assessment and Plan 1. S/P CABG (coronary artery bypass graft) 2. 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 [...] concerns arise. Treatment Team: PCP: Ramya Galvez [facility] Office Visiton 08-14-2024 Follow-up visit [id number] Luther Flores 1955 M Date Provider Department Center 08/14/2024 [id number] FLOWERS [facility] CT None Family History Problem Relation Age of Onset Heart disease Father No Known Problems Mother Cancer Maternal Grandfather Family Status - Relation Status Age at Father Mother Alive Brother Alive Maternal Grandfather Level of Service:254[address] [place] POSTOP FOLLOW UP VISIT RELATED TO ORIGINAL PX Reason for Visit and Comments: Follow-up [[id number]] Normal [facility] Progress Noteon 08-14-2024 Progress Note [facility]: CT SURGEONS [place] [address] [facility] [address] Dept: [phone] Dept Loc: [phone] Visit type: Established patient Reason for Visit: Follow-up Assessment and Plan 1. S/P CABG (coronary artery bypass graft) 2. 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 Essential hypertension 4. Atrial fibrillation, unspecified type ([facility]) 07/25/24: Dr. Martinez- CABG x3 (GREY-LAD, SVG-Diag, [...] - LAD, LCx, distal RCA with known KNOT CUTTER D2), preserved LVEF (65%), HTN, HLD, PAD (follows with vascular at [place]), prior tobacco use, pulmonary nodules, adenocarcinoma s/p RUL lobectomy 01/2024 (follows with Pulmonology), and psoriasis. Patient had presented to [place] ED with a sharp pain in the [...] every morning (befo (more content not included)... [facility] 08-12-2024 [facility] Office Visit (XANDER ) -- SHARONDA FLORES ([id number]) 1955 M [facility] Date Time Provider Department [...] PA-C Department of Orthopaedics Orthopaed[facility] [address] [facility] [address] Dept: [phone] Dept August 12, 2024 CHIEF COMPLAINT: New, [...] was seen by a provider at the [facility] for his shoulder prior to his [...] be due to previous trauma. Clinical correlation High Lead Yarder: BETTY Transcribe Date/Time: Aug 12 2024 1:43P [...] seen. IMPRESSION: Findings as discussed under Results.. High Lead Yarder: BETTY Transcribe Date/Time: Aug 12 2024 1:42P (more content not included)... Normal [facility] XR CERVICAL 4V AP/LAT/OBLon 08-12-2024 XR [...] be due to previous trauma. Clinical correlation High Lead Yarder: BETTY Transcribe Date/Time: Aug 12 2024 1:43P Dictated by : ERICA LOPEZ DO This examination was interpreted and the report reviewed and electronically signed by: ERICA LOPEZ DO on Aug 12 2024 1:45PM EST [id number] Normal [facility] XR Cervical spine AP and Lat eral and obliqueon 08-12-2024 IMPRESSION: Sclerotic appearance of the odontoid process of C2. Etiology uncertain. This can be due to previous trauma. Clinical correlation High Lead Yarder: [facility] Transcribe Date/Time: Aug 12 2024 1:43P [...] are seen. DIVISION OF RADIOLOGY [facility] * * *Final Report* [...] be due to previous trauma. Clinical correlation High Lead Yarder: BETTY Transcribe Date/Time: Aug 12 2024 1:43P Dictated by : ERICA LOPEZ DO This examination was interpreted and the report reviewed and electronically signed by: ERICA LOPEZ DO on Aug 12 2024 1:45PM [facility] Radiology Study observation (narrative) [facility] XR Cervical spine AP and Lat eral and obliqueOrdered By: [facility] Provider on 08-12-2024 [facility] XR SHLDR >/=3V AP/LIZBET AP/OTH R LTon 08-12-2024 XR SHLDR >/=3V AP/LIZBET AP/OTHR LT * * *Final Report* * * DATE OF EXAM: Aug 12 2024 11:00AM [id number] - XR SHLDR >/=3V AP/LIZBET AP/OTHR LT / PROCEDURE REASON: Pain * * * * Physician Interpretation * * * * EXAM(s): XR SHLDR >/=3V AP/ILZBET AP/OTHR LT EXAM DATE/TIME: 08/12/2024 11:00 AM HISTORY: 69 years old Clinical information: Pain PT STATES LEFT SHOULDER PAIN NO INJURY TECHNIQUE: Images: XR SHLDR >/=3V AP/LIZBET AP/OTHR LT Comparison: None. RESULT: Findings: The AC joint is well maintained.. The glenohumeral joint is well maintained. The acromiohumeral interval appears mildly decreased IMPRESSION: Findings as discussed under Results.. High Lead Yarder: BETTY Transcribe Date/Time: Aug 12 2024 1:42P Dictated by : ERICA LOPEZ DO This examination was interpreted and the report reviewed and electronically signed by: ERICA LOPEZ DO on Aug 12 2024 1:43PM EST [id number] Normal [facility] XR Shoulder - left 3 Viewson 08-12-2024 IMPRESSION: Findings as discussed under Results.. High Lead Yarder: PSCArnulfo Transcribe Date/Time: Aug 12 2024 1:42P [...] appears mildly decreased DIVISION OF RADIOLOGY Provider, [facility] - 08/12/2024 * * *Final [...] IMPRESSION IMPRESSION: Findings as discussed under Results.. High Lead Yarder: BETTY Transcribe Date/Time: Aug 12 2024 1:42P Dictated by : ERICA LOPEZ DO This examination was interpreted and the report reviewed and electronically signed by: ERICA LOPEZ DO on Aug 12 2024 1:43PM EST [facility] Radiology Study observation (narrative) [facility] XR Shoulder - left 3 ViewsOr dered By: Candido Provider on 08-12-2024 [facility] Progress Noteon 08-08-2024 Progress Note 08/08/24 1419 [...] Yes (Chronic left shoulder pain- referral to [facility]) Are you missing any Post discharge [...] needed. Done EMR reviewed. Patient enrolled in [facility] Ambulatory Cardiac 90-day BPCI Program post-hospital [...] which Dr. Martinez sent a referral to [place] [facility]. Patient active with [facility] recent call [...] for call. Future outreach scheduled. Telephone 08/06/2024 [facility] Cardiovascular Thoracic Surgery - Sadia Martinez, DO [...] op appt on 08/14/24 with Gerri Flowers APRN-PAPER PROCESSING MACHINE HELPER. Advised patient to start keeping a BP log, and that he should go to the ER/call 911 or call the office if it occurs again, or any new symptoms appear. Patient is asking if he should be seen for a sooner appointment, or keep scheduled appt. Any further instruction or orders to add? RK 08/06/24 2:40 PM Nasra Alfonso routed this conversation to [facility] Ct Surg Chiquis Pool August 07, 2024 SESAR Kelly CNP 08/07/24 1:43 PM Note Keep scheduled appointment. Agree with instructions given. J [facility] 36on 08-07-2024 36 Message released to patient as written. Patient's further questions if applicable: N/A Were all questions from office addressed or relayed to the patient from encounter: Yes [facility] 36 Keep scheduled appointment. Agree with instructions given. [facility] 36on 08-06-2024 36 Pt s/p CABG x3, [...] Any further instruction or orders to add? [facility] Progress Noteon 08-05-2024 Progress Note EMR reviewed. Sharon grimes enrolled in [facility] Ambulatory Cardiac 90-day BPCI Program post-hospital [...] for shoulder pain. Yara Flowers APRN - PAPER PROCESSING MACHINE HELPER Nurse Practitioner Cardiothoracic Surgery Discharge Summary Cosign Needed Date of Service: 07/31/2024 8:40 AM Cosign Needed Discharge Summary: Cardiothoracic Surgery Sharonda Flores, 69 y.o., 1955 ADMIT DATE: 07/25/2024 DISCHARGE DATE: 07/31/2024 VISIT STATUS: Admission CODE STATUS: Full Code DISCHARGING SURGEON: Brooklynn Martinez DO, Office Number: [phone] DISCHARGE DIAGNOSES: CAD s/p multiple PCI's, now [...] TEAM: Primary Care Physician: Tima Tello MD Outpatient Scheduler: Dr. Tineo SURGERY: 07/25/24: Dr. Martinez- CABG x3 (GREY-LAD, SVG-Diag, SVG-PDA), LAD endarterectomy [facility], ZARI HOSPITAL COURSE: Sharonda Flores is a 68 y.o. male referred by Dr. Tineo for CABG. Patient's PMHx includes CAD (s/p several PCI, most recently 2011 - LAD, LCx, distal RCA with known KNOT CUTTER D2), preserved LVEF (65%), HTN, HLD, PAD (follows with vascular at [place]), prior tobacco use, pulmonary nodules, adenocarcinoma s/p RUL lobectomy 01/2024 (follows with Pulmonology), and psoriasis. Patient had presented to [place] ED with a sharp pain in the [...] These medications were (more content not included)... [facility] [id number] 08-01-2024 [id number] Patient Choice Patient Name: SHARONDA FLORES Date of : 1955 [facility] 36on 08-01-2024 36 Spoke to pharmacy an d pt. Reviewed medication list. All questions answered. [facility] Progress Noteon 08-01-2024 Progress Note EMR reviewed. Sharon grimes enrolled in [facility] Ambulatory Cardiac 90-day BPCI Program post-hospital [...] for shoulder pain. Yara Flowers APRN - PAPER PROCESSING MACHINE HELPER Nurse Practitioner Cardiothoracic Surgery Discharge Summary Cosign Needed Date of Service: 07/31/2024 8:40 AM Cosign Needed Discharge Summary: Cardiothoracic Surgery Sharonda Flores, 69 y.o., 1955 ADMIT DATE: 07/25/2024 DISCHARGE DATE: 07/31/2024 VISIT STATUS: Admission CODE STATUS: Full Code DISCHARGING SURGEON: Brooklynn Martinez DO, Office Number: [phone] DISCHARGE DIAGNOSES: CAD s/p multiple PCI's, now [...] TEAM: Primary Care Physician: Tima Tello MD Outpatient Scheduler: Dr. Tineo SURGERY: 07/25/24: Dr. Martinez- CABG x3 (GREY-LAD, SVG-Diag, SVG-PDA), LAD endarterectomy [facility] HOSPITAL COURSE: Sharonda Flores is a 68 y.o. male referred by Dr. Tineo for CABG. Patient's PMHx includes CAD (s/p several PCI, most recently 2011 - LAD, LCx, distal RCA with known KNOT CUTTER D2), preserved LVEF (65%), HTN, HLD, PAD (follows with vascular at [place]), prior tobacco use, pulmonary nodules, adenocarcinoma s/p RUL lobectomy 01/2024 (follows with Pulmonology), and psoriasis. Patient had presented to [place] ED with a sharp pain in the [...] Your Medications These medications were sent to [facility]/pharmacy #[id number] - [place], [place] - [address] (more content not included)... [facility] 3007-31-2024 30 Problem: Pain - Adul t [...] Interventions Goal: Assess Nutritional Intake Outcome: Completed [facility] [id number] 07-31-2024 [id number] [facility] notified of discharge home today. [facility] 36on 07-31-2024 36 Name of caller reque sting page:Paul Phone Number of caller: [phone] Facility requesting page: [facility] Reason for Page: methocarbamol not available in 1000mg Provider paged: heath Segura Name of paged provider: ct surgery Page Placed to #: condominium property manager finder Time Page was sent or provider contacted: 12:22 pm Page Content: Paul with [facility] pharmacy called stating the Methocarbamol 1000 mg is not available. He states the 500 mg is. He is asking for a verbal ok to switch it to the 500 mg. Please call Paul at #[phone]. Thank you. Normal [facility] BASIC METABOLIC PANELon 01-0 Anion gap [Moles/Vol] 11 mmol/L Normal 3-13 [facility] Comment on above: Performed By: #### L AB103, LAB15 ####Carpet Cleaning Technician: MARILEE ALVARADO ([phone])[facility])[address] [place] [address] Calcium [Mass/Vol] 9.3 mg/dL Normal 8.8-10.0 [facility] Comment on above: Performed By: #### L AB103, LAB15 ####Carpet Cleaning Technician: MARILEE ALVARADO ([phone])[facility])[address] [place] [address] Chloride [Moles/Vol] 97 mmol/L Low 98-107 [facility] Comment on above: Performed By: #### L AB103, LAB15 ####Carpet Cleaning Technician: MARILEE ALVARADO ([phone])[facility])[address] [place] [address] CO2 [Moles/Vol] 28 mmol/L Normal 23-31 [facility] Comment on above: Performed By: #### L AB103, LAB15 ####Carpet Cleaning Technician: MARILEE ALVARADO ([phone])[facility])[address] [place] [address] Creatinine [Mass/Vol] 0.96 mg/dL Normal 0.72-1.25 [facility] Comment on above: Performed By: #### L AB103, LAB15 ####Carpet Cleaning Technician: MARILEE ALVARADO ([phone])[facility])[address] [place] [address] [place] GLOMERULAR FILTRATION RATE ML/MIN/1.73 SQ M.PREDICTED 85.6 mL/min/1.73m*2 Normal >60.0 [facility] Comment on above: Result Comment: Calc ulation based on the Chronic Kidney Disease Epidemiology Collaboration (CKD-EPI) equation refit without adjustment for race Performed By: #### L 103, LAB15 ####Carpet Cleaning Technician: MARILEE ALVARADO ([phone])[facility])[address] [place] [address] Glucose [Mass/Vol] 130 mg/dL High 82-115 [facility] Comment on above: Performed By: #### L AB103, LAB15 ####Carpet Cleaning Technician: MARILEE ALVARADO ([phone])[facility])[address] [place] [address] Potassium [Moles/Vol] 3.3 mmol/L Low 3.5-5.1 [facility] Comment on above: Result Comment: [facility] potassium values may be up to 0.5 mmol/L lower than serum values. Performed By: #### L 103, LAB15 ####Carpet Cleaning Technician: MARILEE ALVARADO ([phone])[facility])[address] [place] [address] Sodium [Moles/Vol] 136 mmol/L Normal 136-145 [facility] Comment on above: Performed By: #### L 103, LAB15 ####Carpet Cleaning Technician: MARILEE ALVARADO ([phone])[facility])[address] [place] [address] Urea nitrogen [Mass/Vol] 22 mg/dL Normal 9-23 [facility] Comment on above: Performed By: #### L AB103, LAB15 ####Carpet Cleaning Technician: MARILEE ALVARADO ([phone])[facility])[address] [place] [address] Basic metabolic 1998 panelon 07-31-2024 Anion gap [Moles/Vol] 11 mmol/L 3 - 13 mmol/L [facility] Calcium [Mass/Vol] 9.3 mg/dL 8.8 - 10. 0 mg/dL [facility] Chloride [Moles/Vol] 97 mmol/L Low 98 - 10 7 mmol/L [facility] CO2 [Moles/Vol] 28 mmol/L 23 - 31 mmol/L [facility] Creatinine [Mass/Vol] 0.96 mg/dL 0.72 - 1.25 mg/dL [facility] GFR/1.73 sq M.predicted (S/P/Bld) [Vol rate/Area] 85.6 mL/min - PINF [facility] Comment on above: Calculation based on the Chronic Kidney Disease Epidemiology Collaboration (CKD-EPI) equation refit without adjustment for race Glucose [Mass/Vol] 130 mg/dL High 82 - 115 mg/dL [facility] Interpretation and review of laboratory results Abnormal [facility] Potassium [Moles/Vol] 3.3 mmol/L Low 3.5 - 5.1 mmol/L [facility] Comment on above: Plasma potassium ivan ues may be up to 0.5 mmol/L lower than serum values. Sodium [Moles/Vol] 136 mmol/L 136 - 145 mmol/L [facility] Urea nitrogen [Mass/Vol] 22 mg/dL 9 - 23 mg/dL [facility] CBC (HEMOGRAM)on 07-31-2024 Erythrocyte distribution width (RBC) [Ratio] 13.9 % Normal 11.5-15.0 [facility] Comment on above: Performed By: #### L AB294 ####Carpet Cleaning Technician: MARILEE ALVARADO ([phone])[address] Hematocrit (Bld) [Volume fraction] 27.5 % Low 40.0-52.0 [facility] Comment on above: Performed By: #### L AB294 ####Carpet Cleaning Technician: MARILEE ALVARADO ([phone])[facility])[address] [place] [address] Hemoglobin (Bld) [Mass/Vol] 9.3 g/dL Low 13.0-18.0 [facility] Comment on above: Performed By: #### L AB294 ####Carpet Cleaning Technician: MARILEE ALVARADO ([phone])[facility])[address] [place] [address] MCH (RBC) [Entitic mass] 28.3 pg Normal 26.0-34.0 [facility] Comment on above: Performed By: #### L AB294 ####Carpet Cleaning Technician: MARILEE ALVARADO ([phone])[facility])[address] [place] [address] MCHC 33.8 % Normal 30.5-36.0 [facility] Comment on above: Performed By: #### L AB294 ####Carpet Cleaning Technician: MARILEE ALAVRADO ([phone])[facility])[address] [place] [address] MCV (RBC) [Entitic vol] 83.6 fL Normal 77.0-99.0 S [facility] Comment on above: Performed By: #### L AB294 ####Carpet Cleaning Technician: MARILEE ALVARADO ([phone])[facility])[address] [place] [address] Platelet mean volume (Bld) [Entitic vol] 11.4 fL Normal 9.0-12.7 [facility] Comment on above: Performed By: #### L AB294 ####Carpet Cleaning Technician: MARILEE ALVARADO ([phone])[facility])[address] [place] [address] Platelets (Bld) [#/Vol] 166 10*3/uL Normal 140-440 [facility] Comment on above: Performed By: #### L AB294 ####Carpet Cleaning Technician: MARILEE ALVARADO ([phone])[facility])[address] [place] [address] RBC (Bld) [#/Vol] 3.29 10*6/uL Low 4.40-5.90 [facility] Comment on above: Performed By: #### L AB294 ####Carpet Cleaning Technician: MARILEE ALVARADO ([phone])[facility])[address] [place] [address] WBC (Bld) [#/Vol] 5.2 10*3/uL Normal 3.6-10.7 [facility] Comment on above: Performed By: #### L AB294 ####Carpet Cleaning Technician: MARILEE ALVARADO ([phone])[facility] ([facility])[address] [place] [address] CBC panel Auto (Bld)on 07-31 Erythrocyte distribution width (RBC) [Ratio] 13.9 % 11.5 - 15.0 % [facility] Hematocrit (Bld) [Volume fraction] 27.5 % Low 40.0 - 52.0 % [facility] Hemoglobin (Bld) [Mass/Vol] 9.3 g/dL Low 13.0 - 18.0 g/dL [facility] Interpretation and review of laboratory results Abnormal [facility] MCH (RBC) [Entitic mass] 28.3 pg 26.0 - 34.0 pg [facility] MCHC (RBC) [Mass/Vol] 33.8 % 30.5 - 36.0 % [facility] MCV (RBC) [Entitic vol] 83.6 fL 77.0 - 99.0 fL [facility] Platelet mean volume (Bld) [Entitic vol] 11.4 fL 9.0 - 12.7 fL [facility] Platelets (Bld) [#/Vol] 166 10*3/uL 140 - 440 10*3/uL [facility] RBC (Bld) [#/Vol] 3.29 10*6/uL Low 4.40 - 5.90 10*6/uL [facility] WBC (Bld) [#/Vol] 5.2 10*3/uL 3.6 - 10.7 10*3/uL [facility] Laboratory - Chemistry and C hemistry - challengeon 07-31-2024 Magnesium [Mass/Vol] 1.9 mg/dL 1.6 - 2 .6 mg/dL [facility] MAGNESIUMon 07-31-2024 Magnesium [Mass/Vol] 1.9 mg/dL Normal 1.6-2.6 [facility] Comment on above: Result Comment: MIKE Carr COMMENTS: Higher values can be expected in females during menses. Performed By: #### L AB103, LAB15 ####Carpet Cleaning Technician: MARILEE ALVARADO ([phone])[facility] [place] [address] Magnesium [Mass/Vol]on 07-31 Interpretation and review of laboratory results Normal [facility] Higher values can be expected in females during menses. [facility] No Panel Informationon 07-31 [facility] Nursing Noteon 07-31-2024 Nursing Note 1130- Discharge instructions reviewed with patient including but not limited to medications, follow up appointments, diet, limitations. Patient take by wheelchair to waiting vehicle with brother. Normal [facility] Progress Noteon 07-31-2024 Progress Note OCCUPATIONAL THERAPY [facility] Treatment Note Name/MRN: Sharonda Flores ([id number]) Date of : 1955 Age: 69 y.o. [...] will utilize adaptive techniques to bathe body MD. (Progressing) Start: 07/28/24 Expected End: 08/25/24 Encounter Problems (Resolved) Dressings Lower Extremities Patient will dress lower body MD. (Goal Met) Start: 07/28/24 Expected End: 08/25/24 Resolved: 07/31/24 Toileting Patient will complete toileting tasks at standard toilet with modified independence. (Goal Met) Start: 07/28/24 Expected End: 08/25/24 Resolved: 07/31/24 Therapy Time Individual Co-treatment Time In 0830 Time Out 0900 Minutes 30 Timed Code Treatment Minutes: 30 Minutes (1 self 1 act) SHERIE Phelps [facility] XR CHEST 1 VIEWon 07-31-2024 [...] base as well Report Dictated on Workstation: Dermira Electronically Signed By: Elijah Flynn MD Electronically Signed Date/Time: 07/31/2024 6:59 AM EST [facility] XR Chest Single viewon 07-31 Probable small left pleural effusion. Atelectasis at the left base as well Report Dictated on Workstation: Dermira Electronically Signed By: Elijah Flynn MD Electronically Signed Date/Time: 07/31/2024 6:59 AM [facility] Patient Name: SHARONDA FLORES : 1955 [...] costophrenic angle but the right remains sharp [facility] Elijah Flynn MD - 07/31/2024 [...] Electronically Signed Date/Time: 07/31/2024 6:59 AM EST [facility] Radiology Study observation (narrative) [facility] 30on 07-30-2024 30 Problem: Pain - Adul [...] by Anisa Awad RN Outcome: Progressing Normal [facility] 30 Problem: Pain - Adul t [...] Goal: Assess Nutritional Intake Outcome: Progressing Normal [facility] BASIC METABOLIC PANELon 12 Anion gap [Moles/Vol] 10 mmol/L Normal 3-13 [facility] Comment on above: Performed By: #### L AB15, [id number] ####Carpet Cleaning Technician: MARILEE ALVARADO ([phone])[address] Calcium [Mass/Vol] 9.7 mg/dL Normal 8.8-10.0 [facility] Comment on above: Performed By: #### L AB15, [id number] ####Carpet Cleaning Technician: MARILEE ALVARADO ([phone])[facility])[address] [place] [address] Chloride [Moles/Vol] 99 mmol/L Normal 98-107 [facility] Comment on above: Performed By: #### L AB15, [id number] ####Carpet Cleaning Technician: MARILEE [phone])[facility])[address] [place] [address] CO2 [Moles/Vol] 30 mmol/L Normal 23-31 [facility] Comment on above: Performed By: #### L AB15, [id number] ####Carpet Cleaning Technician: MARILEE ALVARADO ([id number])[facility])[address] [place] [address] Creatinine [Mass/Vol] 0.82 mg/dL Normal 0.72-1.25 [facility] Comment on above: Performed By: #### L AB15, [id number] ####Carpet Cleaning Technician: MARILEE ALVARADO ([phone])[facility])[address] [place] [address] GLOMERULAR FILTRATION RATE ML/MIN/1.73 SQ M.PREDICTED >90.0 Normal >60.0 [facility] Comment on above: Result Comment: Calc ulation based on the Chronic Kidney Disease Epidemiology Collaboration (CKD-EPI) equation refit without adjustment for race Performed By: #### L AB15, [id number] ####Carpet Cleaning Technician: MARILEE ALVARADO ([phone])[facility])[address] [place] [address] [place] Glucose [Mass/Vol] 101 mg/dL Normal 82-115 [facility] Comment on above: Performed By: #### L AB15, [id number] ####Carpet Cleaning Technician: MARILEE ALVARADO ([phone])[facility])[address] [place] [address] Potassium [Moles/Vol] 3.2 mmol/L Low 3.5-5.1 [facility] Comment on above: Result Comment: [facility] potassium values may be up to 0.5 mmol/L lower than serum values. Performed By: #### L AB15, [id number] ####Carpet Cleaning Technician: MARILEE ALVARADO ([phone])[facility])[address] [place] [address] [place] Sodium [Moles/Vol] 139 mmol/L Normal 136-145 [facility] Comment on above: Performed By: #### L AB15, [id number] ####Carpet Cleaning Technician: MARILEE ALVARADO ([phone])[facility])[address] [place] [address] Urea nitrogen [Mass/Vol] 25 mg/dL High 9-23 [facility] Comment on above: Performed By: #### L AB15, [id number] ####Carpet Cleaning Technician: MARILEE ALVARADO ([phone])[facility])[address] [place] [address] Basic metabolic 1998 panelon 07-30-2024 Anion gap [Moles/Vol] 10 mmol/L 3 - 13 mmol/L [facility] Calcium [Mass/Vol] 9.7 mg/dL 8.8 - 10. 0 mg/dL [facility] Chloride [Moles/Vol] 99 mmol/L 98 - 10 7 mmol/L [facility] CO2 [Moles/Vol] 30 mmol/L 23 - 31 mmol/L [facility] Creatinine [Mass/Vol] 0.82 mg/dL 0.72 - 1.25 mg/dL [facility] GFR/1.73 sq M.predicted (S/P/Bld) [Vol rate/Area] - PINF [facility] Comment on above: Calculation based on the Chronic Kidney Disease Epidemiology Collaboration (CKD-EPI) equation refit without adjustment for race Glucose [Mass/Vol] 101 mg/dL 82 - 115 mg/dL [facility] Interpretation and review of laboratory results Abnormal [facility] Potassium [Moles/Vol] 3.2 mmol/L Low 3.5 - 5.1 mmol/L [facility] Comment on above: Plasma potassium ivan ues may be up to 0.5 mmol/L lower than serum values. Sodium [Moles/Vol] 139 mmol/L 136 - 145 mmol/L [facility] Urea nitrogen [Mass/Vol] 25 mg/dL High 9 - 23 mg/dL [facility] CBC (HEMOGRAM)on 07-30-2024 Erythrocyte distribution width (RBC) [Ratio] 13.9 % Normal 11.5-15.0 [facility] Comment on above: Performed By: #### L [id number] #### Carpet Cleaning Technician: MARILEE ALVARADO ([phone]) [facility]) [address] [place] [address] Hematocrit (Bld) [Volume fraction] 28.7 % Low 40.0-52.0 [facility] Comment on above: Performed By: #### L [id number] #### Carpet Cleaning Technician: MARILEE ALVARADO ([id number]) [facility]) [address] [place] [address] Hemoglobin (Bld) [Mass/Vol] 9.6 g/dL Low 13.0-18.0 [facility] Comment on above: Performed By: #### L [id number] #### Carpet Cleaning Technician: MARILEE ALVARADO ([id number]) [facility]) [address] [place] [address] MCH (RBC) [Entitic mass] 28.1 pg Normal 26.0-34.0 [facility] Comment on above: Performed By: #### L [id number] #### Carpet Cleaning Technician: MARILEE ALVARADO ([phone]) [facility]) [address] [place] [address] MCHC 33.4 % Normal 30.5-36.0 [facility] Comment on above: Performed By: #### L [id number] #### Carpet Cleaning Technician: MARILEE ALVARADO ([phone]) [facility]) [address] [place] [address] MCV (RBC) [Entitic vol] 83.9 fL Normal 77.0-99.0 [facility] Comment on above: Performed By: #### L [id number] #### Carpet Cleaning Technician: MARILEE ALVARADO ([phone]) [facility]) [address] [place] [address] Platelet mean volume (Bld) [Entitic vol] 11.4 fL Normal 9.0-12.7 [facility] Comment on above: Performed By: #### L [id number] #### Carpet Cleaning Technician: MARILEE ALVARADO ([phone]) [facility]) [address] [place] [address] Platelets (Bld) [#/Vol] 153 10*3/uL Normal 140-440 [facility] Comment on above: Performed By: #### L [id number] #### Carpet Cleaning Technician: MARILEE ALVARADO ([phone]) [facility]) [address] [place] [address] RBC (Bld) [#/Vol] 3.42 10*6/uL Low 4.40-5.90 [facility] Comment on above: Performed By: #### L [id number] #### Carpet Cleaning Technician: MARILEE ALVARADO ([id number]) [facility]) [address] [place] [address] WBC (Bld) [#/Vol] 5.0 10*3/uL Normal 3.6-10.7 [facility] Comment on above: Performed By: #### L [id number] #### Carpet Cleaning Technician: MARILEE ALVARADO ([phone]) [facility]) [address] [place] [address] CBC panel Auto (Bld)Ordered By: Bere Mas on 07-30-2024 Erythrocyte distribution width (RBC) [Ratio] 13.9 % 11.5 - 15.0 % [facility] Hematocrit (Bld) [Volume fraction] 28.7 % Low 40.0 - 52.0 % [facility] Hemoglobin (Bld) [Mass/Vol] 9.6 g/dL Low 13.0 - 18.0 g/dL [facility] Interpretation and review of laboratory results Abnormal [facility] MCH (RBC) [Entitic mass] 28.1 pg 26.0 - 34.0 pg [facility] MCHC (RBC) [Mass/Vol] 33.4 % 30.5 - 36.0 % [facility] MCV (RBC) [Entitic vol] 83.9 fL 77.0 - 99.0 fL [facility] Platelet mean volume (Bld) [Entitic vol] 11.4 fL 9.0 - 12.7 fL [facility] Platelets (Bld) [#/Vol] 153 10*3/uL 140 - 440 10*3/uL [facility] RBC (Bld) [#/Vol] 3.42 10*6/uL Low 4.40 - 5.90 10*6/uL [facility] WBC (Bld) [#/Vol] 5 10*3/uL 3.6 - 10.7 10*3/uL [facility] Laboratory - Chemistry and C hemistry - challengeon 07-30-2024 Magnesium [Mass/Vol] 1.9 mg/dL 1.6 - 2 .6 mg/dL [facility] MAGNESIUMon 07-30-2024 Magnesium [Mass/Vol] 1.9 mg/dL Normal 1.6-2.6 [facility] Comment on above: Result Comment: MIKE Carr COMMENTS: Higher values can be expected in females during menses. Performed By: #### L AB15, [id number] ####Carpet Cleaning Technician: MARILEE ALVARADO ([phone])[facility] Magnesium [Mass/Vol]on 07-30 Interpretation and review of laboratory results Normal [facility] Higher values can be expected in females during menses. [facility] No Panel Informationon 07-30 [facility] XR CHEST 1 VIEWon 07-30-2024 XR CHEST [...] Signed Date/Time: 07/30/2024 7:59 AM EST Normal [facility] XR Chest Single viewon 07-30 Minimal left basilar atelectasis. Report Dictated on Electronically Signed By: Shayna Patel DO Electronically Signed Date/Time: 07/30/2024 7:59 AM EST [facility] Patient Name: SHARONDA FLORES : [...] contour. BONES/JOINTS: Median sternotomy. No acute fracture. [facility] Shayna Patel DO - 07/30/2024 [...] Electronically Signed Date/Time: 07/30/2024 7:59 AM EST [facility] Radiology Study observation (narrative) [facility] [employer] XR Chest Single viewOrdered By: Shayna Patel on 07-30-2024 [employer] Work Phone: 30on 07-29-2024 30 Problem: Pain [...] Goal: Assess Nutritional Intake Outcome: Progressing Normal [facility] BASIC METABOLIC PANELon 12-3 -2023 Anion gap [Moles/Vol] 9 mmol/L Normal 3-13 [facility] Comment on above: Performed By: #### L AB103, LAB15 ####Carpet Cleaning Technician: MARILEE ALVARADO ([phone])[address] Calcium [Mass/Vol] 9.0 mg/dL Normal 8.8-10.0 [facility] Comment on above: Performed By: #### L AB103, LAB15 ####Carpet Cleaning Technician: MARILEE ALVARADO ([phone])[facility])[address] [place] [address] Chloride [Moles/Vol] 102 mmol/L Normal 98-107 [facility] Comment on above: Performed By: #### L AB103, LAB15 ####Carpet Cleaning Technician: MARILEE ALVARADO ([phone])[facility])[address] [place] [address] CO2 [Moles/Vol] 30 mmol/L Normal 23-31 [facility] Comment on above: Performed By: #### L AB103, LAB15 ####Carpet Cleaning Technician: MARILEE ALVARADO ([phone])[address] Creatinine [Mass/Vol] 0.81 mg/dL Normal 0.72-1.25 [facility] Comment on above: Performed By: #### L AB103, LAB15 ####Carpet Cleaning Technician: MARILEE ALVARADO ([phone])[facility])[address] [place] [address] GLOMERULAR FILTRATION RATE ML/MIN/1.73 SQ M.PREDICTED >90.0 Normal >60.0 [facility] Comment on above: Result Comment: Calc ulation based on the Chronic Kidney Disease Epidemiology Collaboration (CKD-EPI) equation refit without adjustment for race Performed By: #### L AB103, LAB15 ####Carpet Cleaning Technician: MARILEE ALVARADO ([phone])[facility])[address] [place] [address] Glucose [Mass/Vol] 89 mg/dL Normal 82-115 [facility] Comment on above: Performed By: #### L 103, LAB15 ####Carpet Cleaning Technician: MARILEE ALVARADO ([phone])[facility])[address] [place] [address] Potassium [Moles/Vol] 3.4 mmol/L Low 3.5-5.1 [facility] Comment on above: Result Comment: [facility] potassium values may be up to 0.5 mmol/L lower than serum values. Performed By: #### L AB103, LAB15 ####Carpet Cleaning Technician: MARILEE ALVARADO ([phone])[facility])[address] [place] [address] [place] Sodium [Moles/Vol] 141 mmol/L Normal 136-145 [facility] Comment on above: Performed By: #### L AB103, LAB15 ####Carpet Cleaning Technician: MARILEE ALVARADO ([phone])[facility])[address] [place] [address] [place] Urea nitrogen [Mass/Vol] 24 mg/dL High - [facility] Comment on above: Performed By: #### L AB103, LAB15 ####Carpet Cleaning Technician: MARILEE ALVARADO ([phone])[facility])[address] [place] [address] Basic metabolic 1998 panelon 07-29-2024 Anion gap [Moles/Vol] 9 mmol/L 3 - 13 mmol/L [facility] Calcium [Mass/Vol] 9 mg/dL 8.8 - 10. 0 mg/dL [facility] Chloride [Moles/Vol] 102 mmol/L 98 - 10 7 mmol/L [facility] CO2 [Moles/Vol] 30 mmol/L 23 - 31 mmol/L [facility] Creatinine [Mass/Vol] 0.81 mg/dL 0.72 - 1.25 mg/dL [facility] GFR/1.73 sq M.predicted (S/P/Bld) [Vol rate/Area] - PINF [facility] Comment on above: Calculation based on the Chronic Kidney Disease Epidemiology Collaboration (CKD-EPI) equation refit without adjustment for race Glucose [Mass/Vol] 89 mg/dL 82 - 115 mg/dL [facility] Interpretation and review of laboratory results Abnormal [facility] Potassium [Moles/Vol] 3.4 mmol/L Low 3.5 - 5.1 mmol/L [facility] Comment on above: Plasma potassium ivan ues may be up to 0.5 mmol/L lower than serum values. Sodium [Moles/Vol] 141 mmol/L 136 - 145 mmol/L [facility] Urea nitrogen [Mass/Vol] 24 mg/dL High 9 - 23 mg/dL [facility] CBC (HEMOGRAM)on 07-29-2024 Erythrocyte distribution width (RBC) [Ratio] 13.7 % Normal 11.5-15.0 [facility] Comment on above: Performed By: #### L [id number] ####Carpet Cleaning Technician: MARILEE ALVARADO ([phone])[address] Hematocrit (Bld) [Volume fraction] 25.2 % Low 40.0-52.0 [facility] Comment on above: Performed By: #### L [id number] ####Carpet Cleaning Technician: MARILEE ALVARADO ([phone])[address] Hemoglobin (Bld) [Mass/Vol] 8.4 g/dL Low 13.0-18.0 [facility] Comment on above: Performed By: #### L [id number] ####Carpet Cleaning Technician: MARILEE [id number])[facility])[address] [place] [address] IPF 9 Normal [facility] Comment on above: Performed By: #### L [id number] ####Carpet Cleaning Technician: MARILEE ALVARADO ([phone])[facility])[address] [place] [address] MCH (RBC) [Entitic mass] 28.2 pg Normal 26.0-34.0 [facility] Comment on above: Performed By: #### L [id number] ####Carpet Cleaning Technician: MARILEE ALVARADO ([phone])[facility])[address] [place] [address] MCHC 33.3 % Normal 30.5-36.0 [facility] Comment on above: Performed By: #### L [id number] ####Carpet Cleaning Technician: MARILEE ALVARADO ([id number])[facility])[address] [place] [address] MCV (RBC) [Entitic vol] 84.6 fL Normal 77.0-99.0 [facility] Comment on above: Performed By: #### L [id number] ####Carpet Cleaning Technician: MARILEE ALVARADO ([phone])[facility])[address] [place] [address] Platelet mean volume (Bld) [Entitic vol] 12.9 fL High 9.0-12.7 [facility] Comment on above: Performed By: #### L [id number] ####Carpet Cleaning Technician: MARILEE ALVARADO ([phone])[facility])[address] [place] [address] Platelets (Bld) [#/Vol] 94 10*3/uL Low 140-440 S [facility] Comment on above: Performed By: #### L [id number] ####Carpet Cleaning Technician: MARILEE ALVARADO ([phone])[facility])[address] [place] [address] RBC (Bld) [#/Vol] 2.98 10*6/uL Low 4.40-5.90 [facility] Comment on above: Performed By: #### L [id number] ####Carpet Cleaning Technician: MARILEE ALVARADO ([phone])[facility])[address] [place] [address] WBC (Bld) [#/Vol] 4.9 10*3/uL Normal 3.6-10.7 [facility] Comment on above: Performed By: #### L [id number] ####Carpet Cleaning Technician: MARILEE ALVARADO ([phone])[facility] ([facility])[address] [place] [address] CBC panel Auto (Bld)on 07-29 Erythrocyte distribution width (RBC) [Ratio] 13.7 % 11.5 - 15.0 % [facility] Hematocrit (Bld) [Volume fraction] 25.2 % Low 40.0 - 52.0 % [facility] Hemoglobin (Bld) [Mass/Vol] 8.4 g/dL Low 13.0 - 18.0 g/dL [facility] Interpretation and review of laboratory results Abnormal [facility] IPF 9 [facility] MCH (RBC) [Entitic mass] 28.2 pg 26.0 - 34.0 pg [facility] MCHC (RBC) [Mass/Vol] 33.3 % 30.5 - 36.0 % [facility] MCV (RBC) [Entitic vol] 84.6 fL 77.0 - 99.0 fL [facility] Platelet mean volume (Bld) [Entitic vol] 12.9 fL High 9.0 - 12.7 fL [facility] Platelets (Bld) [#/Vol] 94 10*3/uL Low 140 - 440 10*3/uL [facility] RBC (Bld) [#/Vol] 2.98 10*6/uL Low 4.40 - 5.90 10*6/uL [facility] WBC (Bld) [#/Vol] 4.9 10*3/uL 3.6 - 10.7 10*3/uL [facility] ECG 12-LEADon 07-29-2024 ECG 12-LEAD IMPRESSION: Atrial fibrillation with rapid V-rate Repolarization abnormality, prob rate related Electronically Signed On 07-29-2024 12:10:18 EST by Rhea Borrego Normal [facility] [employer] [facility] Laboratory - Chemistry and C hemistry - challengeon 07-29-2024 Potassium [Moles/Vol] 4 mmol/L 3.5 - 5.1 mmol/L [facility] [employer] Comment on above: Plasma potassium ivan ues may be up to 0.5 mmol/L lower than serum values. Magnesium [Mass/Vol] 1.8 mg/dL 1.6 - 2 .6 mg/dL [facility] MAGNESIUMon 07-29-2024 Magnesium [Mass/Vol] 1.8 mg/dL Normal 1.6-2.6 [facility] [employer] [facility] Comment on above: Result Comment: ORDE R COMMENTS: Higher values can be expected in females during menses. Performed By: #### L AB103, LAB15 ####Carpet Cleaning Technician: MARILEE ALVARADO ([phone])[facility] ([address] Magnesium [Mass/Vol]on 07-29 Interpretation and review of laboratory results Normal [facility] [employer] Higher values can be expected in females during menses. [facility] No Panel InformationOrdered By: Rhea Borrego on 07-29-2024 P [place] 0 degrees [employer] Work Phone: MN Interval 0 ms [email or web address] Phone: QRS [place] 27 degrees [email or web address] Phone: QRSD Interval 77 ms [employer] Work Phone: QT Interval 289 ms [employer] Work Phone: QTC Interval 468 ms [employer] Work Phone: T Wave [place] -46 degrees [email or web address] Phone: [employer] Work Phone: No Panel Informationon 07-29 Atrial fibrillation with rapid V-rate Repolarization abnormality, prob rate related Electronically Signed On 07-29-2024 12:10:18 EST by Rhea Borrego CV Rhea Lassiter MD - 07/29/2024 IMPRESSION: Atrial fibrillation with rapid V-rate Repolarization abnormality, prob rate related Electronically Signed On 07-29-2024 12:10:18 EST by Rhea Borrego [facility] Nursing Noteon 07-29-2024 Nursing Note Summary of day shift - Patient ambulated unit 3 times independently during shift; positive for BM; intermittent c/o chest pain treated with PRN meds and rest; patient did not eat much (doesn't care for food selections). Did drink Ensure. Patient anticipating discharge to home tomorrow. Normal [facility] POTASSIUMon 07-29-2024 Potassium [Moles/Vol] 4.0 mmol/L Normal 3.5-5.1 [facility] Comment on above: Result Comment: [facility] potassium values may be up to 0.5 mmol/L lower than serum values. Performed By: #### L [id number] ####Carpet Cleaning Technician: MARILEE ALVARADO ([phone])[facility] ([facility] Potassium [Moles/Vol]on 07-02 Interpretation and review of laboratory results Normal [facility] Progress Noteon 07-29-2024 Progress Note PHYSICAL THERAPY [facility] Treatment Note Name/MRN: Sharonda Flores ([id number]) Date of : 1955 Age: 69 y.o. [...] 14 Minutes (Gait) Lilo Powell PTA Normal [facility] Vital signsOrdered By: Timothy waite Yoselinjose miguel on 07-29-2024 Heart rate 157 /min bpm [facility] [employer] Work Phone: XR CHEST 1 VIEWon 07-29-2024 [...] MD Electronically Signed Date/Time: 07/29/2024 8:34 AM [facility] XR Chest Single viewon 07-29 Trace left pleural effusion. Report Dictated on Electronically Signed By: Juana Bose MD Electronically Signed Date/Time: 07/29/2024 8:34 AM [facility] Patient Name: SHARONDA FLORES : 1955 [...] sternotomy wires. Degenerative change of the spine. [facility] Juana Bose M D - 07/29/2024 Patient Name: SHARON[facility] FLOR[facility] : 1955 [id number] Exam Date/Time: 07/29/2024 05:12 Procedure: XR CHEST [...] Electronically Signed Date/Time: 07/29/2024 8:34 AM EST [facility] Radiology Study observation (narrative) [facility] 30on 07-28-2024 30 Problem: Pain - Adul [...] Goal: Assess Nutritional Intake Outcome: Progressing Normal [facility] BASIC METABOLIC PANELon 12-2 Anion gap [Moles/Vol] 7 mmol/L Normal 3-13 [facility] Comment on above: Performed By: #### L AB15 ####Carpet Cleaning Technician: MARILEE ALVARADO ([phone])[facility] [place] [address] Calcium [Mass/Vol] 9.1 mg/dL Normal 8.8-10.0 [facility] Comment on above: Performed By: #### L AB15 ####Carpet Cleaning Technician: MARILEE ALVARADO ([phone])[facility])[address] [place] [address] Chloride [Moles/Vol] 97 mmol/L Low 98-107 [facility] Comment on above: Performed By: #### L AB15 ####Carpet Cleaning Technician: MARILEE ALVARADO ([phone])[facility] [place] [address] CO2 [Moles/Vol] 33 mmol/L High 23-31 [facility] Comment on above: Performed By: #### L AB15 ####Carpet Cleaning Technician: MARILEE ALVARADO ([phone])[facility])[address] [place] [address] Creatinine [Mass/Vol] 0.82 mg/dL Normal 0.72-1.25 [facility] Comment on above: Performed By: #### L AB15 ####Carpet Cleaning Technician: MARILEE ALVARADO ([id number])[facility])[address] [place] [address] GLOMERULAR FILTRATION RATE ML/MIN/1.73 SQ M.PREDICTED >90.0 Normal >60.0 [facility] Comment on above: Result Comment: Calc ulation based on the Chronic Kidney Disease Epidemiology Collaboration (CKD-EPI) equation refit without adjustment for race Performed By: #### L AB15 ####Carpet Cleaning Technician: MARILEE ALVARADO ([phone])[facility])[address] [place] [address] Glucose [Mass/Vol] 98 mg/dL Normal 82-115 [facility] Comment on above: Performed By: #### L AB15 ####Carpet Cleaning Technician: MARILEE ALVARADO ([phone])[facility])[address] [place] [address] Potassium [Moles/Vol] 3.3 mmol/L Low 3.5-5.1 [facility] Comment on above: Result Comment: [facility] potassium values may be up to 0.5 mmol/L lower than serum values. Performed By: #### L AB15 ####Carpet Cleaning Technician: MARILEE ALVARADO ([phone])[facility])[address] [place] [address] Sodium [Moles/Vol] 137 mmol/L Normal 136-145 [facility] Comment on above: Performed By: #### L AB15 ####Carpet Cleaning Technician: MARILEE ALVARADO ([phone])[facility])[address] [place] [address] [place] Urea nitrogen [Mass/Vol] 24 mg/dL High 9-23 [facility] Comment on above: Performed By: #### L AB15 ####Carpet Cleaning Technician: MARILEE ALVARADO ([phone])[facility])[address] [place] [address] Anion gap [Moles/Vol] 4 mmol/L Normal 3-13 [facility] Comment on above: Performed By: #### L AB103, LAB15 ####Carpet Cleaning Technician: MARILEE ALVARADO ([phone])[facility] [place] [address] [place] Calcium [Mass/Vol] 9.0 mg/dL Normal 8.8-10.0 [facility] Comment on above: Performed By: #### L AB103, LAB15 ####Carpet Cleaning Technician: MARILEE ALVARADO ([phone])[facility])[address] [place] [address] [place] Chloride [Moles/Vol] 101 mmol/L Normal 98-107 [facility] Comment on above: Performed By: #### L AB103, LAB15 ####Carpet Cleaning Technician: MARILEE ALVARADO ([phone])[facility])[address] [place] [address] CO2 [Moles/Vol] 31 mmol/L Normal 23-31 [facility] Comment on above: Performed By: #### L AB103, LAB15 ####Carpet Cleaning Technician: MARILEE ALVARADO ([phone])[facility])[address] [place] [address] Creatinine [Mass/Vol] 0.90 mg/dL Normal 0.72-1.25 [facility] Comment on above: Performed By: #### L AB103, LAB15 ####Carpet Cleaning Technician: MARILEE ALVARADO ([phone])[facility])[address] [place] [address] GLOMERULAR FILTRATION RATE ML/MIN/1.73 SQ M.PREDICTED >90.0 Normal >60.0 [facility] Comment on above: Result Comment: Calc ulation based on the Chronic Kidney Disease Epidemiology Collaboration (CKD-EPI) equation refit without adjustment for race Performed By: #### L CARLOS MANUEL, LAB15 ####Carpet Cleaning Technician: MARIELE ALVARADO ([phone])[facility])[address] [place] [address] [place] Glucose [Mass/Vol] 103 mg/dL Normal 82-115 [facility] Comment on above: Performed By: #### L AB103, LAB15 ####Carpet Cleaning Technician: MARILEE ALVARADO ([phone])[facility])[address] [place] [address] [place] Potassium [Moles/Vol] 3.6 mmol/L Normal 3.5-5.1 [facility] Comment on above: Result Comment: [facility] potassium values may be up to 0.5 mmol/L lower than serum values. Performed By: #### L AB103, LAB15 ####Carpet Cleaning Technician: MARILEE ALVARADO ([phone])[facility])[address] [place] [address] [place] Sodium [Moles/Vol] 136 mmol/L Normal 136-145 [facility] Comment on above: Performed By: #### L AB103, LAB15 ####Carpet Cleaning Technician: MARILEE ALVARADO ([phone])[facility])[address] [place] [address] Urea nitrogen [Mass/Vol] 23 mg/dL Normal 9-23 [facility] Comment on above: Performed By: #### L AB103, LAB15 ####Carpet Cleaning Technician: MARILEE ALVARADO ([phone])[facility] [place] [address] Basic metabolic 1998 panelon 07-28-2024 Anion gap [Moles/Vol] 7 mmol/L 3 - 13 mmol/L [facility] Calcium [Mass/Vol] 9.1 mg/dL 8.8 - 10. 0 mg/dL [facility] Chloride [Moles/Vol] 97 mmol/L Low 98 - 10 7 mmol/L [facility] CO2 [Moles/Vol] 33 mmol/L High 23 - 31 mmol/L [facility] Creatinine [Mass/Vol] 0.82 mg/dL 0.72 - 1.25 mg/dL [facility] GFR/1.73 sq M.predicted (S/P/Bld) [Vol rate/Area] - PINF [facility] Comment on above: Calculation based on the Chronic Kidney Disease Epidemiology Collaboration (CKD-EPI) equation refit without adjustment for race Glucose [Mass/Vol] 98 mg/dL 82 - 115 mg/dL [facility] Interpretation and review of laboratory results Abnormal [facility] Potassium [Moles/Vol] 3.3 mmol/L Low 3.5 - 5.1 mmol/L [facility] Comment on above: Plasma potassium ivan ues may be up to 0.5 mmol/L lower than serum values. Sodium [Moles/Vol] 137 mmol/L 136 - 145 mmol/L [facility] Urea nitrogen [Mass/Vol] 24 mg/dL High 9 - 23 mg/dL [facility] Anion gap [Moles/Vol] 4 mmol/L 3 - 13 mmol/L [facility] Calcium [Mass/Vol] 9 mg/dL 8.8 - 10. 0 mg/dL [facility] Chloride [Moles/Vol] 101 mmol/L 98 - 10 7 mmol/L [facility] CO2 [Moles/Vol] 31 mmol/L 23 - 31 mmol/L [facility] Creatinine [Mass/Vol] 0.9 mg/dL 0.72 - 1.25 mg/dL [facility] GFR/1.73 sq M.predicted (S/P/Bld) [Vol rate/Area] - PINF [facility] Comment on above: Calculation based on the Chronic Kidney Disease Epidemiology Collaboration (CKD-EPI) equation refit without adjustment for race Glucose [Mass/Vol] 103 mg/dL 82 - 115 mg/dL [facility] Potassium [Moles/Vol] 3.6 mmol/L 3.5 - 5.1 mmol/L [facility] Comment on above: Plasma potassium ivan ues may be up to 0.5 mmol/L lower than serum values. Sodium [Moles/Vol] 136 mmol/L 136 - 145 mmol/L [facility] Urea nitrogen [Mass/Vol] 23 mg/dL 9 - 23 mg/dL [facility] CBC (HEMOGRAM)on 07-28-2024 Erythrocyte distribution width (RBC) [Ratio] 14.1 % Normal 11.5-15.0 [facility] Comment on above: Performed By: #### L [id number] #### Carpet Cleaning Technician: MARILEE ALVARADO ([phone]) [facility]) [address] [place] [address] Hematocrit (Bld) [Volume fraction] 24.3 % Low 40.0-52.0 [facility] Comment on above: Performed By: #### L [id number] #### Carpet Cleaning Technician: MARILEE ALVARADO ([phone]) [facility]) [address] [place] [address] Hemoglobin (Bld) [Mass/Vol] 8.1 g/dL Low 13.0-18.0 [facility] Comment on above: Performed By: #### L [id number] #### Carpet Cleaning Technician: MARILEE ALVARADO ([phone]) [facility]) [address] [place] [address] [place] IPF 9 Normal [facility] Comment on above: Performed By: #### L [id number] #### Carpet Cleaning Technician: MARILEE ALVARADO ([phone]) [facility]) [address] [place] [address] MCH (RBC) [Entitic mass] 28.4 pg Normal 26.0-34.0 [facility] Comment on above: Performed By: #### L [id number] #### Carpet Cleaning Technician: MARILEE ALVARADO ([phone]) [facility]) [address] [place] [address] MCHC 33.3 % Normal 30.5-36.0 [facility] Comment on above: Performed By: #### L [id number] #### Carpet Cleaning Technician: MARILEE ALVARADO ([id number]) [facility]) [address] [place] [address] MCV (RBC) [Entitic vol] 85.3 fL Normal 77.0-99.0 [facility] Comment on above: Performed By: #### L [id number] #### Carpet Cleaning Technician: MARILEE ALVARADO ([phone]) [facility]) [address] [place] [address] Platelet mean volume (Bld) [Entitic vol] 12.2 fL Normal 9.0-12.7 [facility] Comment on above: Performed By: #### L [id number] #### Carpet Cleaning Technician: MARILEE ALVARADO ([phone]) [facility]) [address] [place] [address] Platelets (Bld) [#/Vol] 68 10*3/uL Low 140-440 S [facility] Comment on above: Performed By: #### L [id number] #### Carpet Cleaning Technician: MARILEE ALVARADO ([phone]) [facility]) [address] [place] [address] RBC (Bld) [#/Vol] 2.85 10*6/uL Low 4.40-5.90 [facility] Comment on above: Performed By: #### L [id number] #### Carpet Cleaning Technician: MARILEE ALVARADO ([phone]) [facility]) [address] [place] [address] WBC (Bld) [#/Vol] 5.0 10*3/uL Normal 3.6-10.7 [facility] Comment on above: Performed By: #### L [id number] #### Carpet Cleaning Technician: MARILEE ALVARADO ([phone]) [facility] ([facility]) [address] [place] [address] CBC panel Auto (Bld)Ordered By: Nikolai Hillman on 07-28-2024 Erythrocyte distribution width (RBC) [Ratio] 14.1 % 11.5 - 15.0 % [facility] Hematocrit (Bld) [Volume fraction] 24.3 % Low 40.0 - 52.0 % [facility] Hemoglobin (Bld) [Mass/Vol] 8.1 g/dL Low 13.0 - 18.0 g/dL [facility] Interpretation and review of laboratory results Abnormal [facility] IPF 9 [facility] MCH (RBC) [Entitic mass] 28.4 pg 26.0 - 34.0 pg [facility] MCHC (RBC) [Mass/Vol] 33.3 % 30.5 - 36.0 % [facility] MCV (RBC) [Entitic vol] 85.3 fL 77.0 - 99.0 fL [facility] Platelet mean volume (Bld) [Entitic vol] 12.2 fL 9.0 - 12.7 fL [facility] Platelets (Bld) [#/Vol] 68 10*3/uL Low 140 - 440 10*3/uL [facility] RBC (Bld) [#/Vol] 2.85 10*6/uL Low 4.40 - 5.90 10*6/uL [facility] WBC (Bld) [#/Vol] 5 10*3/uL 3.6 - 10.7 10*3/uL [facility] ECG 12-LEADon 07-28-2024 ECG 12-LEAD IMPRESSION: Sinus rhythm Low voltage in precordial leads Electronically Signed On 07-28-2024 08:59:52 EST by Jose Phelan [facility] Laboratory - Chemistry and C hemistry - challengeon 07-28-2024 Magnesium [Mass/Vol] 2.1 mg/dL 1.6 - 2 .6 mg/dL [facility] Laboratory - Coagulationon 1 09-28-2023 aPTT Coag (PPP) [Time] 26.5 s 20.0 - 30.5 s [facility] INR Coag (PPP) [Relative time] 1.1 {INR} 0.9 - 1.1 [facility] Comment on above: Recommended Anticoag ulant Therapy: [...] 12 s 9.0 - 1 2.0 s [facility] MAGNESIUMon 07-28-2024 Magnesium [Mass/Vol] 2.1 mg/dL Normal 1.6-2.6 [facility] Comment on above: Result Comment: MIKE Carr COMMENTS: Higher values can be expected in females during menses. Performed By: #### L AB103, LAB15 ####Carpet Cleaning Technician: MARILEE ALVARADO ([phone])[address] Magnesium [Mass/Vol]on 07-28 Higher values can be expected in females during menses. [facility] No Panel Informationon 07-28 P [place] 41 degrees [facility] [place] Interval 137 ms [facility] QRS [place] 16 degrees [facility] QRSD Interval 72 ms [facility] QT Interval 365 ms [facility] QTC Interval 415 ms [facility] T Wave [place] 1 degrees [facility] Sinus rhythm Low voltage in precordial leads Electronically Signed On 07-28-2024 08:59:52 EST by Jose Antoine MD - 07/28/2024 IMPRESSION: Sinus rhythm Low voltage in precordial leads Electronically Signed On 07-28-2024 08:59:52 EST by Jose Hickman [facility] Interpretation and review of laboratory results Normal [facility] Interpretation and review of laboratory results Normal [facility] PROTIME AND APTTon aPTT Coag (Bld) [Time] 26.5 s Normal 20.0-30.5 [facility] Comment on above: Performed By: #### Urbano [id number] ####Carpet Cleaning Technician: MARILEE ALAVRADO ([phone])[facility])[address] [place] [address] INR Coag (PPP) [Relative time] 1.1 {INR} Normal 0.9-1.1 [facility] Comment on above: Result Comment: Adebayo [...] prevent Myocardial Infarction Performed By: #### Urbano [id number] ####Carpet Cleaning Technician: MARILEE ALVARADO ([phone])[address] PT Coag (PPP) [Time] 12.0 s Normal 9.0-12.0 [facility] Comment on above: Performed By: #### Urbano [id number] ####Carpet Cleaning Technician: MARILEE ALVARADO ([phone])[facility])[address] [place] [address] Progress Noteon 07-28-2024 Progress Note PHYSICAL THERAPY [facility] Treatment Note Name/MRN: Sharonda Flores ([id number]) Date of : 1955 Age: 69 y.o. [...] No instability or LOB noted. Device(s) used: InStaff Ambulation Ambulation 1 Assistive device(s) used: Nezzie [...] 23 Minutes (Gait, TP) Lilo Powell PTA [facility] Progress Note Epicardial pacing wi re pulled without difficulty per protocol. Patient and nurse educated on possible complications. Patient tolerated well. Will continue to monitor. Chest tubes assessed: no air leak, subcutaneous air noted. Chest tubes removed without difficulty and dressing applied. Patient tolerated well. Patient and nurse educated on possible complications to observe for. Will continue to monitor. SESAR Kelly CNP 07/28/24 [facility] Progress Note ------ -- Attestation signed by Mike Mosley MD at 07/28/2024 2:39 PM I have personally performed a face to face diagnostic evaluation on this patient today on 07/28/24. Labs, imaging studies, and electronic medical record notes on [employer] have been reviewed by me. This note documented and discussed by the []nuclear officer []Fellow [x] CHIQUIS reflects my history, [...] b-aric Lasix diuresis as tolerated -- Cardiothoracic Surgery/[facility] Progress Note PATIENT NAME: Sharonda Flores DATE: 07/28/24 HPI: Sharonda Flores is a 68 y.o. male referred by Dr. Tineo for CABG. Patient's PMHx includes CAD (s/p several PCI, most recently 2011 - LAD, LCx, distal RCA with known KNOT CUTTER D2), preserved LVEF (65%), HTN, HLD, PAD (follows with vascular at [place]), prior tobacco use, pulmonary nodules, adenocarcinoma s/p RUL lobectomy 01/2024 (follows with Pulmonology), and psoriasis. Patient had presented to [place] ED with a sharp pain in the [...] is al (more content not included)... Normal [facility] Vital signson 07-28-2024 Heart rate 78 /min bpm [facility] XR CHEST 1 VIEWon 07-28-2024 XR CHEST 1 VIEW [facility] Name[facility] 1955 [id number] Exam Date/Time: 07/28/2024 05:27 Procedure: XR CHEST [...] Signed Date/Time: 07/28/2024 5:52 AM EST Normal [facility] XR Chest Single viewon 07-28 1. Postoperative viky nges. 2. Chest tubes without pneumothorax. 3. Significant improvement in the aeration of the lungs when compared to yesterday's study. Report Dictated on Electronically Signed By: Elijah Bañuelos MD Electronically Signed Date/Time: 07/28/2024 5:52 AM EST [facility] Patient Name: SHARONDA FLORES : 1955 [...] aeration of the lungs has significantly improved. [facility] Elijah Bañuelos MD - 07/28/2024 [...] Electronically Signed Date/Time: 07/28/2024 5:52 AM EST [facility] Radiology Study observation (narrative) [facility] XR Chest Single viewOrdered By: Elijah Bañuelos on 07-28-[address] [facility] [employer] Work Phone: BASIC METABOLIC PANELon 07-01 Anion gap [Moles/Vol] 6 mmol/L Normal 3-13 [facility] Comment on above: Performed By: #### L AB103, LAB15 ####Carpet Cleaning Technician: MARILEE ALVARADO ([phone])[facility])[address] [place] [address] Calcium [Mass/Vol] 8.7 mg/dL Low 8.8-10.0 [facility] Comment on above: Performed By: #### L AB103, LAB15 ####Carpet Cleaning Technician: MARILEE ALVARADO ([phone])[facility] [place] [address] Chloride [Moles/Vol] 106 mmol/L Normal 98-107 [facility] Comment on above: Performed By: #### L AB103, LAB15 ####Carpet Cleaning Technician: MARILEE ALVARADO ([phone])[facility])[address] [place] [address] CO2 [Moles/Vol] 25 mmol/L Normal 23-31 [facility] Comment on above: Performed By: #### L AB103, LAB15 ####Carpet Cleaning Technician: MARILEE ALVARADO ([phone])[facility])[address] [place] [address] Creatinine [Mass/Vol] 0.97 mg/dL Normal 0.72-1.25 [facility] Comment on above: Performed By: #### L AB103, LAB15 ####Carpet Cleaning Technician: MARILEE ALVARADO ([phone])[facility])[address] [place] [address] GLOMERULAR FILTRATION RATE ML/MIN/1.73 SQ M.PREDICTED 84.5 mL/min/1.73m*2 Normal >60.0 [facility] Comment on above: Result Comment: Calc ulation based on the Chronic Kidney Disease Epidemiology Collaboration (CKD-EPI) equation refit without adjustment for race Performed By: #### L AB103, LAB15 ####Carpet Cleaning Technician: MARILEE ALVARADO ([phone])[facility])[address] [place] [address] Glucose [Mass/Vol] 115 mg/dL Normal 82-115 [facility] Comment on above: Performed By: #### L AB103, LAB15 ####Carpet Cleaning Technician: MARILEE ALVARADO ([phone])[facility])[address] [place] [address] Potassium [Moles/Vol] 3.6 mmol/L Normal 3.5-5.1 [facility] Comment on above: Result Comment: [facility] potassium values may be up to 0.5 mmol/L lower than serum values. Performed By: #### L AB103, LAB15 ####Carpet Cleaning Technician: MARILEE ALVARADO ([phone])[facility])[address] [place] [address] Sodium [Moles/Vol] 137 mmol/L Normal 136-145 [facility] Comment on above: Performed By: #### L AB103, LAB15 ####Carpet Cleaning Technician: MARILEE ALVARADO ([phone])[address] Urea nitrogen [Mass/Vol] 22 mg/dL Normal 9-23 [facility] Comment on above: Performed By: #### L AB103, LAB15 ####Carpet Cleaning Technician: MARILEE ALVARADO ([phone])[address] Basic metabolic 1998 panelon 07-27-2024 Anion gap [Moles/Vol] 6 mmol/L 3 - 13 mmol/L [facility] Calcium [Mass/Vol] 8.7 mg/dL Low 8.8 - 10. 0 mg/dL [facility] Chloride [Moles/Vol] 106 mmol/L 98 - 10 7 mmol/L [facility] CO2 [Moles/Vol] 25 mmol/L 23 - 31 mmol/L [facility] Creatinine [Mass/Vol] 0.97 mg/dL 0.72 - 1.25 mg/dL [facility] GFR/1.73 sq M.predicted (S/P/Bld) [Vol rate/Area] 84.5 mL/min - PINF [facility] Comment on above: Calculation based on the Chronic Kidney Disease Epidemiology Collaboration (CKD-EPI) equation refit without adjustment for race Glucose [Mass/Vol] 115 mg/dL 82 - 115 mg/dL [facility] Interpretation and review of laboratory results Abnormal [facility] Potassium [Moles/Vol] 3.6 mmol/L 3.5 - 5.1 mmol/L [facility] Comment on above: Plasma potassium ivan ues may be up to 0.5 mmol/L lower than serum values. Sodium [Moles/Vol] 137 mmol/L 136 - 145 mmol/L [facility] Urea nitrogen [Mass/Vol] 22 mg/dL 9 - 23 mg/dL [facility] CBC (HEMOGRAM)on 07-27-2024 Erythrocyte distribution width (RBC) [Ratio] 14.3 % Normal 11.5-15.0 [facility] Comment on above: Performed By: #### L [id number] ####Carpet Cleaning Technician: MARILEE ALVARADO ([phone])[address] Hematocrit (Bld) [Volume fraction] 28.9 % Low 40.0-52.0 [facility] Comment on above: Performed By: #### L [id number] ####Carpet Cleaning Technician: MARILEE ALVARADO ([phone])[facility])[address] [place] [address] Hemoglobin (Bld) [Mass/Vol] 9.5 g/dL Low 13.0-18.0 [facility] Comment on above: Performed By: #### L [id number] ####Carpet Cleaning Technician: MARILEE ALVARADO ([phone])[facility])[address] [place] [address] [place] IPF 8 Normal [facility] Comment on above: Performed By: #### L [id number] ####Carpet Cleaning Technician: MARILEE ALVARADO ([phone])[facility])[address] [place] [address] MCH (RBC) [Entitic mass] 28.5 pg Normal 26.0-34.0 [facility] Comment on above: Performed By: #### L [id number] ####Carpet Cleaning Technician: MARILEE ALVARADO ([phone])[facility])[address] [place] [address] MCHC 32.9 % Normal 30.5-36.0 [facility] Comment on above: Performed By: #### L [id number] ####Carpet Cleaning Technician: MARILEE ALVARADO ([phone])[facility])[address] [place] [address] MCV (RBC) [Entitic vol] 86.8 fL Normal 77.0-99.0 [facility] Comment on above: Performed By: #### L [id number] ####Carpet Cleaning Technician: MARILEE ALVARADO ([phone])[facility])[address] [place] [address] Platelet mean volume (Bld) [Entitic vol] 12.1 fL Normal 9.0-12.7 [facility] Comment on above: Performed By: #### L [id number] ####Carpet Cleaning Technician: MARILEE ALVARADO ([phone])[facility])[address] [place] [address] Platelets (Bld) [#/Vol] 81 10*3/uL Low 140-440 [facility] Comment on above: Performed By: #### L [id number] ####Carpet Cleaning Technician: MARILEE ALVARADO ([phone])[facility])[address] [place] [address] RBC (Bld) [#/Vol] 3.33 10*6/uL Low 4.40-5.90 [facility] Comment on above: Performed By: #### L [id number] ####Carpet Cleaning Technician: MARILEE ALVARADO ([phone])[facility])[address] [place] [address] WBC (Bld) [#/Vol] 6.4 10*3/uL Normal 3.6-10.7 [facility] Comment on above: Performed By: #### L [id number] ####Carpet Cleaning Technician: MARILEE ALVARADO ([phone])[facility])[address] [place] [address] Erythrocyte distribution width (RBC) [Ratio] 14.6 % Normal 11.5-15.0 [facility] Comment on above: Performed By: #### L [id number] ####Carpet Cleaning Technician: MARIELE ALVARADO ([phone])[address] Hematocrit (Bld) [Volume fraction] 26.2 % Low 40.0-52.0 [facility] Comment on above: Performed By: #### L [id number] ####Carpet Cleaning Technician: MARILEE ALVARADO ([phone])[address] Hemoglobin (Bld) [Mass/Vol] 8.5 g/dL Low 13.0-18.0 [facility] Comment on above: Performed By: #### L [id number] ####Carpet Cleaning Technician: MARILEE ALVARADO ([phone])[address] IPF 6 Normal [facility] Comment on above: Performed By: #### L [id number] ####Carpet Cleaning Technician: MARILEE ALVARADO ([phone])[facility])[address] [place] [address] MCH (RBC) [Entitic mass] 28.1 pg Normal 26.0-34.0 [facility] Comment on above: Performed By: #### L [id number] ####Carpet Cleaning Technician: MARILEE ALVARADO ([phone])[facility])[address] [place] [address] MCHC 32.4 % Normal 30.5-36.0 [facility] Comment on above: Performed By: #### L [id number] ####Carpet Cleaning Technician: MARILEE ALVARADO ([phone])[facility])[address] [place] [address] MCV (RBC) [Entitic vol] 86.8 fL Normal 77.0-99.0 [facility] Comment on above: Performed By: #### L [id number] ####Carpet Cleaning Technician: MARILEE ALVARADO ([phone])[facility])[address] [place] [address] Platelet mean volume (Bld) [Entitic vol] 11.7 fL Normal 9.0-12.7 [facility] Comment on above: Performed By: #### L [id number] ####Carpet Cleaning Technician: MARILEE ALVARADO ([phone])[facility])[address] [place] [address] Platelets (Bld) [#/Vol] 66 10*3/uL Low 140-440 [facility] Comment on above: Performed By: #### L [id number] ####Carpet Cleaning Technician: MARILEE ALVARADO ([phone])[facility])[address] [place] [address] RBC (Bld) [#/Vol] 3.02 10*6/uL Low 4.40-5.90 [facility] Comment on above: Performed By: #### L [id number] ####Carpet Cleaning Technician: MARILEE ALVARADO ([phone])[facility])[address] [place] [address] WBC (Bld) [#/Vol] 5.8 10*3/uL Normal 3.6-10.7 [facility] Comment on above: Performed By: #### L [id number] ####Carpet Cleaning Technician: MARILEE ALVARADO ([phone])[facility])[address] [place] [address] CBC panel Auto (Bld)on 12-28 -2024 Erythrocyte distribution width (RBC) [Ratio] 14.3 % 11.5 - 15.0 % [facility] Hematocrit (Bld) [Volume fraction] 28.9 % Low 40.0 - 52.0 % [facility] Hemoglobin (Bld) [Mass/Vol] 9.5 g/dL Low 13.0 - 18.0 g/dL [facility] Interpretation and review of laboratory results Abnormal [facility] IPF 8 [facility] MCH (RBC) [Entitic mass] 28.5 pg 26.0 - 34.0 pg [facility] MCHC (RBC) [Mass/Vol] 32.9 % 30.5 - 36.0 % [facility] MCV (RBC) [Entitic vol] 86.8 fL 77.0 - 99.0 fL [facility] Platelet mean volume (Bld) [Entitic vol] 12.1 fL 9.0 - 12.7 fL [facility] Platelets (Bld) [#/Vol] 81 10*3/uL Low 140 - 440 10*3/uL [facility] RBC (Bld) [#/Vol] 3.33 10*6/uL Low 4.40 - 5.90 10*6/uL [facility] WBC (Bld) [#/Vol] 6.4 10*3/uL 3.6 - 10.7 10*3/uL [facility] Erythrocyte distribution width (RBC) [Ratio] 14.6 % 11.5 - 15.0 % [facility] Hematocrit (Bld) [Volume fraction] 26.2 % Low 40.0 - 52.0 % [facility] Hemoglobin (Bld) [Mass/Vol] 8.5 g/dL Low 13.0 - 18.0 g/dL [facility] Interpretation and review of laboratory results Abnormal [facility] IPF 6 [facility] MCH (RBC) [Entitic mass] 28.1 pg 26.0 - 34.0 pg [facility] MCHC (RBC) [Mass/Vol] 32.4 % 30.5 - 36.0 % [facility] MCV (RBC) [Entitic vol] 86.8 fL 77.0 - 99.0 fL [facility] Platelet mean volume (Bld) [Entitic vol] 11.7 fL 9.0 - 12.7 fL [facility] Platelets (Bld) [#/Vol] 66 10*3/uL Low 140 - 440 10*3/uL [facility] RBC (Bld) [#/Vol] 3.02 10*6/uL Low 4.40 - 5.90 10*6/uL [facility] WBC (Bld) [#/Vol] 5.8 10*3/uL 3.6 - 10.7 10*3/uL [facility] Laboratory - Chemistry and C hemistry - challengeon 07-27-2024 Glucose [Mass/Vol] 120 mg/dL High 70 - 100 mg/dL [facility] Magnesium [Mass/Vol] 2.2 mg/dL 1.6 - 2 .6 mg/dL [facility] Laboratory - Coagulationon 1 09-27-2023 aPTT Coag (PPP) [Time] 27.1 s 20.0 - 30.5 s [facility] INR Coag (PPP) [Relative time] 1 {INR} 0.9 - 1.1 [facility] Comment on above: Recommended Anticoag ulant Therapy: [...] 11.7 s 9.0 - 1 2.0 s [facility] MAGNESIUMon 07-27-2024 Magnesium [Mass/Vol] 2.2 mg/dL Normal 1.6-2.6 [facility] Comment on above: Result Comment: MIKE Carr COMMENTS: Higher values can be expected in females during menses. Performed By: #### L AB103, LAB15 ####Carpet Cleaning Technician: MARILEE ALVARADO ([phone])[facility] [email or web address] Magnesium [Mass/Vol]on 07-27 Interpretation and review of laboratory results Normal [facility] Higher values can be expected in females during menses. [facility] [employer] No Panel Informationon 07-27 Interpretation and review of laboratory results Abnormal [facility] Performed by: [facility], [address] [address] CLIA ID: [id number] [facility] Interpretation and review of laboratory results Normal [facility] PROTIME AND APTTon aPTT Coag (Bld) [Time] 27.1 s Normal 20.0-30.5 [facility] Comment on above: Performed By: #### L [id number] ####Carpet Cleaning Technician: MARILEE ALVARADO ([phone])[facility])[address] [place] [address] INR Coag (PPP) [Relative time] 1.0 {INR} Normal 0.9-1.1 [facility] Comment on above: Result Comment: Adebayo [...] prevent Myocardial Infarction Performed By: #### L [id number] ####Carpet Cleaning Technician: MARILEE ALVARADO ([phone])[facility])[address] [place] [address] PT Coag (PPP) [Time] 11.7 s Normal 9.0-12.0 [facility] Comment on above: Performed By: #### L [id number] ####Carpet Cleaning Technician: MARILEE ALVARADO ([phone])[facility])[address] [place] [address] Progress Noteon 07-27-2024 Progress Note Department of [employer] Network Administrator al Medicine Division of Endocrinology, Diabetes, & Metabolism Endocrinology Note Patient Name: Sharonda Flores : 1955 AGE: 69 y.o. Room/Bed: T1-109/T1-109 A Admission Date: 07/25/2024 Visit Date: 07/27/2024 Reason for Endocrine Consult: Stress hyperglycemia Provider/Team Requesting Consult: Cardiology PCP: Tima Tello MD Outpt Chain Maker: No ASSESSMENT: Stress induced hyperglycemia Steroid induced [...] g, Oral (more content not included)... Normal [facility] Progress Note ------ -- Attestation signed by Mike Mosley MD at 07/27/2024 11:30 AM I have personally performed a face to face diagnostic evaluation on this patient today on 07/27/24. Labs, imaging studies, and electronic medical record notes on [employer] have been reviewed by me. This note documented and discussed by the []nuclear officer []Fellow [x] CHIQUIS reflects my history, [...] doses to help promote BM -- Cardiothoracic Surgery/[facility] Progress Note PATIENT NAME: Sharonda Flores DATE: 07/27/24 HPI: Sharonda Flores is a 68 y.o. male referred by Dr. Tineo for CABG. Patient's PMHx includes CAD (s/p several PCI, most recently 2011 - LAD, LCx, distal RCA with known KNOT CUTTER D2), preserved LVEF (65%), HTN, HLD, PAD (follows with vascular at [place]), prior tobacco use, pulmonary nodules, adenocarcinoma s/p RUL lobectomy 01/2024 (follows with Pulmonology), and psoriasis. Patient had presented to [place] ED with a sharp pain in the [...] no attila (more content not included)... Normal [facility] XR CHEST 1 VIEWon 07-27-2024 XR [...] MD Electronically Signed Date/Time: 07/27/2024 8:04 AM [facility] Normal [facility] XR Chest Single viewon 07-27 Unchanged moderate-s ized left-sided pleural effusion with pulmonary vascular congestion. No new infiltrate or effusion. Report Dictated on Electronically Signed By: Carlitos Moser MD Electronically Signed Date/Time: 07/27/2024 8:04 AM [facility] Patient Name: SHARONDA FLORES : 1955 [...] line terminates at the cavoatrial junction. OTHER: [facility] Natalia Moser MD - 07/27/2024 Patient Name: [facility] FLORES : 1955 [id number] Exam Date/Time: 07/27/2024 05:24 Procedure: XR CHEST [...] Electronically Signed Date/Time: 07/27/2024 8:04 AM EST [facility] Study observation (narrative) [facility] XR Chest Single viewOrdered By: Natalia Moser on 07-27-2024 [facility] Work Phone: [phone] 07-26-2024 [id number] Superintendent Production following case for Discharge Needs. [facility] [id number] 07-26-2024 [id number] Patient admitted to [facility] ICU s/p CABG x 3 POD # 1. Patient from home alone, is independent, has PCP and prescription coverage. Met with patient at bedside, introduced self and role. Patient agreeable to discharge plan of home with [facility], but does not have anyone to stay with him nor does he plan to stay with anyone. Referral to [facility] for home care. Normal [facility] BASIC METABOLIC PANELon 12-2 Anion gap [Moles/Vol] 6 mmol/L Normal 3-13 [facility] Comment on above: Performed By: #### L AB103, LAB15 ####Carpet Cleaning Technician: MARILEE ALVARADO ([phone])[facility])[address] [place] [address] Calcium [Mass/Vol] 8.5 mg/dL Low 8.8-10.0 [facility] Comment on above: Performed By: #### L AB103, LAB15 ####Carpet Cleaning Technician: MARILEE ALVARADO ([phone])[facility])[address] [place] [address] Chloride [Moles/Vol] 110 mmol/L High 98-107 [facility] Comment on above: Performed By: #### L AB103, LAB15 ####Carpet Cleaning Technician: MARILEE ALVARADO ([phone])[facility])[address] [place] [address] CO2 [Moles/Vol] 23 mmol/L Normal 23-31 [facility] Comment on above: Performed By: #### L AB103, LAB15 ####Carpet Cleaning Technician: MARILEE ALVARADO ([phone])[facility])[address] [place] [address] Creatinine [Mass/Vol] 1.02 mg/dL Normal 0.72-1.25 [facility] Comment on above: Performed By: #### L AB103, LAB15 ####Carpet Cleaning Technician: MARILEE ALVARADO ([phone])[address] GLOMERULAR FILTRATION RATE ML/MIN/1.73 SQ M.PREDICTED 79.6 mL/min/1.73m*2 Normal >60.0 [facility] Comment on above: Result Comment: Calc ulation based on the Chronic Kidney Disease Epidemiology Collaboration (CKD-EPI) equation refit without adjustment for race Performed By: #### L AB103, LAB15 ####Carpet Cleaning Technician: MARILEE ALVARADO ([phone])[facility])[address] [place] [address] Glucose [Mass/Vol] 95 mg/dL Normal 82-115 [facility] Comment on above: Performed By: #### L AB103, LAB15 ####Carpet Cleaning Technician: MARILEE ALVARADO ([phone])[facility])[address] [place] [address] Potassium [Moles/Vol] 4.2 mmol/L Normal 3.5-5.1 [facility] Comment on above: Result Comment: [facility] potassium values may be up to 0.5 mmol/L lower than serum values. Performed By: #### L AB103, LAB15 ####Carpet Cleaning Technician: MARILEE ALVARADO ([phone])[facility])[address] [place] [address] Sodium [Moles/Vol] 139 mmol/L Normal 136-145 [facility] Comment on above: Performed By: #### L AB103, LAB15 ####Carpet Cleaning Technician: MARILEE ALVARADO ([phone])[facility])[address] [place] [address] Urea nitrogen [Mass/Vol] 21 mg/dL Normal 9-23 [facility] Comment on above: Performed By: #### L AB103, LAB15 ####Carpet Cleaning Technician: MARILEE ALVARADO ([phone])[facility])[address] [place] [address] Anion gap [Moles/Vol] 8 mmol/L Normal 3-13 [facility] Comment on above: Performed By: #### L AB103, LAB15 ####Carpet Cleaning Technician: MARILEE ALVARADO ([phone])[facility])[address] [place] [address] Calcium [Mass/Vol] 8.4 mg/dL Low 8.8-10.0 [facility] Comment on above: Performed By: #### L AB103, LAB15 ####Carpet Cleaning Technician: MARILEE ALVARADO ([phone])[facility])[address] [place] [address] Chloride [Moles/Vol] 111 mmol/L High 98-107 [facility] Comment on above: Performed By: #### L AB103, LAB15 ####Carpet Cleaning Technician: MARILEE ALVARADO ([phone])[facility])[address] [place] [address] [place] CO2 [Moles/Vol] 23 mmol/L Normal 23-31 [facility] Comment on above: Performed By: #### L AB103, LAB15 ####Carpet Cleaning Technician: MARILEE ALVARADO ([phone])[facility])[address] [place] [address] Creatinine [Mass/Vol] 1.14 mg/dL Normal 0.72-1.25 [facility] Comment on above: Performed By: #### L AB103, LAB15 ####Carpet Cleaning Technician: MARILEE ALVARADO ([phone])[facility])[address] [place] [address] GLOMERULAR FILTRATION RATE ML/MIN/1.73 SQ M.PREDICTED 69.6 mL/min/1.73m*2 Normal >60.0 [facility] Comment on above: Result Comment: Calc ulation based on the Chronic Kidney Disease Epidemiology Collaboration (CKD-EPI) equation refit without adjustment for race Performed By: #### L AB103, LAB15 ####Carpet Cleaning Technician: MARILEE ALVARADO ([phone])[facility])[address] [place] [address] Glucose [Mass/Vol] 100 mg/dL Normal 82-115 [facility] Comment on above: Performed By: #### L AB103, LAB15 ####Carpet Cleaning Technician: MARILEE ALVARADO ([phone])[facility])[address] [place] [address] Potassium [Moles/Vol] 4.5 mmol/L Normal 3.5-5.1 [facility] Comment on above: Result Comment: [facility] potassium values may be up to 0.5 mmol/L lower than serum values. Performed By: #### L AB103, LAB15 ####Carpet Cleaning Technician: MARILEE ALVARADO ([phone])[facility])[address] [place] [address] Sodium [Moles/Vol] 142 mmol/L Normal 136-145 [facility] Comment on above: Performed By: #### L AB103, LAB15 ####Carpet Cleaning Technician: MARILEE ALVARADO ([phone])[facility] HEALTH ([facility])[address] [place] [address] Urea nitrogen [Mass/Vol] 16 mg/dL Normal 9-23 [facility] Comment on above: Performed By: #### L [id number], [id number] ####Carpet Cleaning Technician: MARILEE ALVARADO ([phone])[address] Basic metabolic 1998 panelon 07-26-2024 Anion gap [Moles/Vol] 6 mmol/L 3 - 13 mmol/L [facility] Calcium [Mass/Vol] 8.5 mg/dL Low 8.8 - 10. 0 mg/dL [facility] Chloride [Moles/Vol] 110 mmol/L High 98 - 10 7 mmol/L [facility] CO2 [Moles/Vol] 23 mmol/L 23 - 31 mmol/L [facility] Creatinine [Mass/Vol] 1.02 mg/dL 0.72 - 1.25 mg/dL [facility] GFR/1.73 sq M.predicted (S/P/Bld) [Vol rate/Area] 79.6 mL/min - PINF [facility] Comment on above: Calculation based on the Chronic Kidney Disease Epidemiology Collaboration (CKD-EPI) equation refit without adjustment for race Glucose [Mass/Vol] 95 mg/dL 82 - 115 mg/dL [facility] Interpretation and review of laboratory results Abnormal [facility] Potassium [Moles/Vol] 4.2 mmol/L 3.5 - 5.1 mmol/L [facility] Comment on above: Plasma potassium ivan ues may be up to 0.5 mmol/L lower than serum values. Sodium [Moles/Vol] 139 mmol/L 136 - 145 mmol/L [facility] Urea nitrogen [Mass/Vol] 21 mg/dL 9 - 23 mg/dL [facility] Anion gap [Moles/Vol] 8 mmol/L 3 - 13 mmol/L [facility] Calcium [Mass/Vol] 8.4 mg/dL Low 8.8 - 10. 0 mg/dL [facility] Chloride [Moles/Vol] 111 mmol/L High 98 - 10 7 mmol/L [facility] CO2 [Moles/Vol] 23 mmol/L 23 - 31 mmol/L [facility] Creatinine [Mass/Vol] 1.14 mg/dL 0.72 - 1.25 mg/dL [facility] GFR/1.73 sq M.predicted (S/P/Bld) [Vol rate/Area] 69.6 mL/min - PINF [facility] Comment on above: Calculation based on the Chronic Kidney Disease Epidemiology Collaboration (CKD-EPI) equation refit without adjustment for race Glucose [Mass/Vol] 100 mg/dL 82 - 115 mg/dL [facility] Interpretation and review of laboratory results Abnormal [facility] Potassium [Moles/Vol] 4.5 mmol/L 3.5 - 5.1 mmol/L [facility] Comment on above: Plasma potassium ivna ues may be up to 0.5 mmol/L lower than serum values. Sodium [Moles/Vol] 142 mmol/L 136 - 145 mmol/L [facility] Urea nitrogen [Mass/Vol] 16 mg/dL 9 - 23 mg/dL [facility] CALCIUM, IONIZEDon CALCIUM IONIZED 4.20 mg/dL Low 4.30-5.20 [facility] Comment on above: Performed By: #### L [id number] #### Carpet Cleaning Technician: MARILEE ALVARADO ([phone]) [facility] [address] [place] [address] PH, IONIZED CALCIUM 7.41 Normal 7.31-7.46 [facility] Comment on above: Performed By: #### L [id number] #### Carpet Cleaning Technician: MARILEE ALVARADO ([phone]) [facility] [address] [place] [address] CBC (HEMOGRAM)on 07-26-2024 Erythrocyte distribution width (RBC) [Ratio] 14.6 % Normal 11.5-15.0 [facility] Comment on above: Performed By: #### L [id number] #### Carpet Cleaning Technician: MARILEE ALVARADO ([phone]) [facility]) [address] [place] [address] Hematocrit (Bld) [Volume fraction] 25.9 % Low 40.0-52.0 [facility] Comment on above: Performed By: #### L [id number] #### Carpet Cleaning Technician: MARILEE ALVARADO ([phone]) [facility]) [address] [place] [address] Hemoglobin (Bld) [Mass/Vol] 8.6 g/dL Low 13.0-18.0 [facility] Comment on above: Performed By: #### L [id number] #### Carpet Cleaning Technician: MARILEE ALVARADO ([phone]) [address] IPF 8 Normal [facility] Comment on above: Performed By: #### L [id number] #### Carpet Cleaning Technician: MARILEE ALVARADO ([phone]) [facility]) [address] [place] [address] MCH (RBC) [Entitic mass] 28.5 pg Normal 26.0-34.0 [facility] Comment on above: Performed By: #### L [id number] #### Carpet Cleaning Technician: MARILEE ALVARADO ([phone]) [facility]) [address] [place] [address] MCHC 33.2 % Normal 30.5-36.0 [facility] Comment on above: Performed By: #### L [id number] #### Carpet Cleaning Technician: MARILEE ALVARADO ([phone]) [facility]) [address] [place] [address] MCV (RBC) [Entitic vol] 85.8 fL Normal 77.0-99.0 [facility] Comment on above: Performed By: #### L [id number] #### Carpet Cleaning Technician: MARILEE ALVARADO ([phone]) [facility]) [address] [place] [address] Platelet mean volume (Bld) [Entitic vol] 12.0 fL Normal 9.0-12.7 [facility] Comment on above: Performed By: #### L [id number] #### Carpet Cleaning Technician: MARILEE ALVARADO ([phone]) [facility]) [address] [place] [address] Platelets (Bld) [#/Vol] 58 10*3/uL Low 140-440 [facility] Comment on above: Performed By: #### L [id number] #### Carpet Cleaning Technician: MARILEE ALVARADO ([phone]) [facility]) [address] [place] [address] RBC (Bld) [#/Vol] 3.02 10*6/uL Low 4.40-5.90 [facility] Comment on above: Performed By: #### L [id number] #### Carpet Cleaning Technician: MARILEE ALVARADO ([phone]) [facility]) [address] [place] [address] WBC (Bld) [#/Vol] 5.0 10*3/uL Normal 3.6-10.7 [facility] Comment on above: Performed By: #### L [id number] #### Carpet Cleaning Technician: MARILEE ALVARADO ([phone]) [facility]) [address] [place] [address] Erythrocyte distribution width (RBC) [Ratio] 14.4 % Normal 11.5-15.0 [facility] Comment on above: Performed By: #### L [id number] ####Carpet Cleaning Technician: MARILEE ALVARADO ([phone])[facility])[address] [place] [address] Hematocrit (Bld) [Volume fraction] 26.2 % Low 40.0-52.0 [facility] Comment on above: Performed By: #### L [id number] ####Carpet Cleaning Technician: MARILEE ALVARADO ([phone])[facility])[address] [place] [address] Hemoglobin (Bld) [Mass/Vol] 8.8 g/dL Low 13.0-18.0 [facility] Comment on above: Performed By: #### L [id number] ####Carpet Cleaning Technician: MARILEE ALVAARDO ([phone])[facility])[address] [place] [address] IPF 8 Normal [facility] Comment on above: Performed By: #### L [id number] ####Carpet Cleaning Technician: MARILEE ALVARADO ([phone])[facility])[address] [place] [address] MCH (RBC) [Entitic mass] 28.8 pg Normal 26.0-34.0 [facility] Comment on above: Performed By: #### L [id number] ####Carpet Cleaning Technician: MARILEE ALVARADO ([phone])[facility])[address] [place] [address] MCHC 33.6 % Normal 30.5-36.0 [facility] Comment on above: Performed By: #### L [id number] ####Carpet Cleaning Technician: MARILEE ALVARADO ([phone])[facility])[address] [place] [address] MCV (RBC) [Entitic vol] 85.6 fL Normal 77.0-99.0 [facility] Comment on above: Performed By: #### L [id number] ####Carpet Cleaning Technician: MARILEE ALVARADO ([phone])[facility])[address] [place] [address] Platelet mean volume (Bld) [Entitic vol] 12.6 fL Normal 9.0-12.7 [facility] Comment on above: Performed By: #### L [id number] ####Carpet Cleaning Technician: MARILEE ALVARADO ([phone])[facility])[address] [place] [address] Platelets (Bld) [#/Vol] 57 10*3/uL Low 140-440 [facility] Comment on above: Performed By: #### L [id number] ####Carpet Cleaning Technician: MARILEE ALVARADO ([phone])[facility])[address] [place] [address] RBC (Bld) [#/Vol] 3.06 10*6/uL Low 4.40-5.90 [facility] Comment on above: Performed By: #### L [id number] ####Carpet Cleaning Technician: MARILEE ALVARADO ([phone])[facility])[address] [place] [address] WBC (Bld) [#/Vol] 4.4 10*3/uL Normal 3.6-10.7 [facility] Comment on above: Performed By: #### L [id number] ####Carpet Cleaning Technician: MARILEE ALVARADO ([phone])[facility])[address] [place] [address] CBC panel Auto (Bld)Ordered By: Tosin Oseguera on 07-26-2024 Erythrocyte distribution width (RBC) [Ratio] 14.6 % 11.5 - 15.0 % [facility] Hematocrit (Bld) [Volume fraction] 25.9 % Low 40.0 - 52.0 % [facility] Hemoglobin (Bld) [Mass/Vol] 8.6 g/dL Low 13.0 - 18.0 g/dL [facility] Interpretation and review of laboratory results Abnormal [facility] IPF 8 [facility] MCH (RBC) [Entitic mass] 28.5 pg 26.0 - 34.0 pg [facility] MCHC (RBC) [Mass/Vol] 33.2 % 30.5 - 36.0 % [facility] MCV (RBC) [Entitic vol] 85.8 fL 77.0 - 99.[address] [facility] Platelet mean volume (Bld) [Entitic vol] 12 fL 9.0 - 12.[address] [facility] Platelets (Bld) [#/Vol] 58 10*3/uL Low 140 - 440 10*3/uL [facility] RBC (Bld) [#/Vol] 3.02 10*6/uL Low 4.40 - 5.90 10*6/uL [facility] WBC (Bld) [#/Vol] 5 10*3/uL 3.6 - 10.7 10*3/uL [facility] CBC panel Auto (Bld)Ordered By: Cherelle Baer on 07-26-2024 Erythrocyte distribution width (RBC) [Ratio] 14.4 % 11.5 - 15.0 % [facility] Hematocrit (Bld) [Volume fraction] 26.2 % Low 40.0 - 52.0 % [facility] Hemoglobin (Bld) [Mass/Vol] 8.8 g/dL Low 13.0 - 18.0 g/dL [facility] Interpretation and review of laboratory results Abnormal [facility] IPF 8 [facility] MCH (RBC) [Entitic mass] 28.8 pg 26.0 - 34.0 pg [facility] MCHC (RBC) [Mass/Vol] 33.6 % 30.5 - 36.0 % [facility] MCV (RBC) [Entitic vol] 85.6 fL 77.0 - 99.0 fL [facility] Platelet mean volume (Bld) [Entitic vol] 12.6 fL 9.0 - 12.7 fL [facility] Platelets (Bld) [#/Vol] 57 10*3/uL Low 140 - 440 10*3/uL [facility] RBC (Bld) [#/Vol] 3.06 10*6/uL Low 4.40 - 5.90 10*6/uL [facility] WBC (Bld) [#/Vol] 4.4 10*3/uL 3.6 - 10.7 10*3/uL [facility] Calcium.ionized [Moles/Vol]o n 07-26-2024 Calcium.ionized (Bld) [Moles/Vol] 4.2 mg/dL Low 4.30 - 5.20 mg/dL [facility] Interpretation and review of laboratory results Abnormal [facility] PH, IONIZED CALCIUM 7.41 7.31 - 7.46 [facility] Consulton 07-26-2024 Consult Nutrition Assessment Type and [...] to assess Fluid Accumulation: Unable to assess Web Methods Developer Strength: Not Performed Nutrition Assessment: Pt with PMH including CAD (s/p several PCI, most recently 2011 - LAD, LCx, distal RCA with known KNOT CUTTER D2), preserved LVEF (65%), HTN, HLD, PAD, prior tobacco use, pulmonary nodules, adenocarcinoma s/p RUL lobectomy 01/2024 (follows with Pulmonology), and Psoriasis presented to [place] ED with a sharp pain in the [...] to be reminded that he was at [facility], also was wondering what time of day it is, states 'I missed a day or two I guess') however he was able to provide limited dietary recall (pt admitted to eating 'unhealthy'): he does not eat/prepare meals at home, often will go through drive-thrus such as [employer] or [employer], at [employer] he will get the 'big breakfast' with [...] RD to trial ONS; provided pt with [employer] Heart Healthy Diet pamphlet and briefly reviewed contents, also provided pt with menu and noted items not permitted on heart healthy diet. Estimated Daily Nutrient Needs: Energy Requirements Based On: Kcal/kg Weight Used for Energy Requirements: Cerulean Weight for Energy Calculation (kg): 62 kg Total Energy Requirements (kcals/day): 2671-8632 kcal/day (25-30 kcal/kg) Weight Used for Protein Requirements: Cerulean Weight in Kg Used for Protein Requirements: 62 kg Estimated Total Protein (g/day): 74-81 gm protein/day (1.2-1.3 gm protein/kg) Estimated Daily Total Fluid (ml/day): per MD Nutrition Related Findings: missing teeth, hypoactive BS, la (more content not included)... Normal [facility] ECG 12-LEADon 07-26-2024 ECG 12-LEAD IMPRESSION: Sinus rhythm Inferior infarct, old Borderline ST elevation, lateral leads Electronically Signed On 07-26-2024 09:47:11 EST by [facility] Vick [facility] ECG 12-LEAD IMPRESSION: Sinus rhythm Low voltage, precordial leads ST elevations, consider pericarditis Electronically Signed On 07-26-2024 09:22:49 EST [facility] FIBRINOGENon 07-26-2024 FIBRINOGEN 352 mg/dL Normal 200-400 [facility] Comment on above: Performed By: #### L [id number], [id number] ####Carpet Cleaning Technician: MARILEE ALVARADO ([phone])[address] Fibrinogen Coag (PPP) [Mass/ Vol]on 07-26-2024 Interpretation and review of laboratory results Normal [facility] Laboratory - Chemistry and C hemistry - challengeon 07-26-2024 Glucose [Mass/Vol] 106 mg/dL High 70 - 100 mg/dL [facility] Magnesium [Mass/Vol] 2.5 mg/dL 1.6 - 2 .6 mg/dL [facility] Glucose [Mass/Vol] 112 mg/dL High 70 - 100 mg/dL [facility] Glucose [Mass/Vol] 101 mg/dL High 70 - 100 mg/dL [facility] Glucose [Mass/Vol] 113 mg/dL High 70 - 100 mg/dL [facility] Glucose [Mass/Vol] 107 mg/dL High 70 - 100 mg/dL [facility] Magnesium [Mass/Vol] 2.6 mg/dL 1.6 - 2 .6 mg/dL [facility] Glucose [Mass/Vol] 98 mg/dL 70 - 100 mg/dL [facility] Laboratory - Coagulationon 1 09-26-2023 aPTT Coag (PPP) [Time] 29.6 s 20.0 - 30.5 s [facility] Fibrinogen Coag (PPP) [Mass/Vol] 352 mg/dL 200 - 400 mg/dL [facility] INR Coag (PPP) [Relative time] 1.1 {INR} 0.9 - 1.1 [facility] Comment on above: Recommended Anticoag ulant Therapy: [...] s High 9.0 - 1 2.[address] [facility] aPTT Coag (PPP) [Time] 34.8 s High 20.0 - 30.5 s [facility] INR Coag (PPP) [Relative time] 1.1 {INR} 0.9 - 1.1 [facility] Comment on above: Recommended Anticoag ulant Therapy: [...] s High 9.0 - 1 2.[address] [facility] MAGNESIUMon 07-26-2024 Magnesium [Mass/Vol] 2.5 mg/dL Normal 1.6-2.6 [facility] Comment on above: Result Comment: MIKE Carr COMMENTS: Higher values can be expected in females during menses. Performed By: #### L [id number], LAB15 ####Carpet Cleaning Technician: MARILEE ALVARADO ([phone])[facility] ([address] Magnesium [Mass/Vol] 2.6 mg/dL Normal 1.6-2.6 [facility] Comment on above: Result Comment: MIKE R COMMENTS: Higher values can be expected in females during menses. Performed By: #### L [id number], LAB15 ####Carpet Cleaning Technician: MARILEE ALVARADO ([phone])[facility] ([facility])[address] [id number] [place] Magnesium [Mass/Vol]on 07-26 Interpretation and review of laboratory results Normal [facility] Higher values can be expected in females during menses. [facility] Interpretation and review of laboratory results Normal [facility] Higher values can be expected in females during menses. [facility] No Panel Informationon 07-26 Interpretation and review of laboratory results Abnormal [facility] Performed by: [facility], [address] [place] [address] CLIA ID: [id number] [facility] Interpretation and review of laboratory results Abnormal [facility] Sinus rhythm Inferior infarct, old Borderline ST elevation, lateral leads Electronically Signed On 07-26-2024 09:47:11 EST by Jose Antoine MD - 07/26/2024 IMPRESSION: Sinus rhythm Inferior infarct, old Borderline ST elevation, lateral leads Electronically Signed On 07-26-2024 09:47:11 EST by Jose Hickman [facility] P [place] 37 degrees [facility] MN Interval 141 ms [facility] QRS [place] 15 degrees [facility] QRSD Interval 69 ms [facility] QT Interval 371 ms [facility] QTC Interval 405 ms [facility] T Wave [place] 2 degrees [facility] Sinus rhythm Low voltage, precordial leads ST elevations, consider pericarditis Electronically Signed On 07-26-2024 09:22:49 EST by Jose Antoine MD - 07/26/2024 IMPRESSION: Sinus rhythm Low voltage, precordial leads ST elevations, consider pericarditis Electronically Signed On 07-26-2024 09:22:49 EST by Jose Hickman [facility] Interpretation and review of laboratory results Abnormal [facility] Performed by: [facility], [address] [place] [id number] CLIA ID: [id number] [facility] Interpretation and review of laboratory results Abnormal [facility] Performed by: [facility], [address] [place] [address] CLIA ID: [id number] [facility] Interpretation and review of laboratory results Abnormal [facility] Performed by: [facility], [address] [place] [address] CLIA ID: [id number] [facility] Interpretation and review of laboratory results Abnormal [facility] Performed by: [facility], [address] [place] [address] CLIA ID: [id number] [facility] Interpretation and review of laboratory results Abnormal [facility] Interpretation and review of laboratory results Normal [facility] Performed by: [facility], [address] [place] [address] CLIA ID: [id number] [facility] [employer] [facility] No Panel InformationOrdered By: Jose Hickman on 07-26-2024 P [place] 69 degrees [facility] Work Phone: [place] Interval 165 ms [facility] Work Phone: QRS [place] 50 degrees [facility] Work Phone: QRSD Interval 94 ms [facility] Work Phone: QT Interval 394 ms [facility] Work Phone: QTC Interval 438 ms [facility] Work Phone: T Wave [place] -15 degrees [facility] Work Phone: [facility] Work Phone: PROTIME AND APTTon aPTT Coag (Bld) [Time] 29.6 s Normal 20.0-30.5 [facility] Comment on above: Performed By: #### L [id number], [id number] ####Carpet Cleaning Technician: MARILEE ALVARADO ([phone])[facility] ([facility])[address] [place] [address] INR Coag (PPP) [Relative time] 1.1 {INR} Normal 0.9-1.1 [facility] Comment on above: Result Comment: Adebayo [...] prevent Myocardial Infarction Performed By: #### L [id number], [id number] ####Carpet Cleaning Technician: MARILEE ALVARADO ([phone])[address] PT Coag (PPP) [Time] 12.1 s High 9.0-12.0 [facility] Comment on above: Performed By: #### L [id number], [id number] ####Carpet Cleaning Technician: MARILEE ALVARADO ([phone])[facility])[address] [place] [address] aPTT Coag (Bld) [Time] 34.8 s High 20.0-30.5 [facility] Comment on above: Performed By: #### L [id number] #### Carpet Cleaning Technician: MARILEE ALVARADO ([phone]) [address] INR Coag (PPP) [Relative time] 1.1 {INR} Normal 0.9-1.1 [facility] Comment on above: Result Comment: Adebayo [...] prevent Myocardial Infarction Performed By: #### L [id number] #### Carpet Cleaning Technician: MARILEE [phone]) [facility] ([facility]) [address] [place] [address] PT Coag (PPP) [Time] 12.4 s High 9.0-12.0 [facility] Comment on above: Performed By: #### L [id number] #### Carpet Cleaning Technician: MARILEE ALVARADO ([phone]) [facility] ([facility]) [address] [place] [address] Progress Noteon 07-26-2024 Progress Note ------ -- Attestation signed by Patsy Telles MD at 07/26/2024 1:14 PM I have personally performed a face to face diagnostic evaluation on this patient. In addition, I have reviewed the resident's/LEAD WEB APPLICATION DEVELOPER/OPERATOR PREFINISH's care plan and agree with those findings [...] imaging are reviewed as detailed in the resident's/LEAD WEB APPLICATION DEVELOPER/OPERATOR PREFINISH's note -- Department of Internal Medicine Division of Endocrinology, Diabetes, & Metabolism Endocrinology Note Patient Name: Sharonda Flores : 1955 AGE: 69 y.o. Room/Bed: T1109/[facility] A Admission Date: 07/25/2024 Visit Date: 07/26/2024 Reason for Endocrine Consult: Stress hyperglycemia Provider/Team Requesting Consult: Cardiology PCP: Tima Tello MD Outpt Chain Maker: No ASSESSMENT: Stress induced hyperglycemia Steroid induced [...] tube i (more content not included)... Normal [facility] Progress Note ------ -- Attestation signed by Mike Mosley MD at 07/26/2024 2:16 PM I have personally performed a face to face diagnostic evaluation on this patient today on 07/26/24. Labs, imaging studies, and electronic medical record notes on [employer] have been reviewed by me. This note documented and discussed by the []nuclear officer []Fellow [x] CHIQUIS reflects my history, [...] - LAD, LCx, distal RCA with known KNOT CUTTER D2), preserved LVEF (65%), HTN, HLD, PAD (follows with vascular at [place]), prior tobacco use, pulmonary nodules, adenocarcinoma s/p RUL lobectomy 01/2024 (follows with Pulmonology), and psoriasis. Patient had presented to [place] ED with a sharp pain in the [...] noted. Neurol (more content not included)... Normal [facility] Vital signsOrdered By: Dimas Hickman on 07-26-2024 Heart rate 74 /min bpm [facility] Work Phone: Vital signson 07-26-2024 Heart rate 71 /min bpm [facility] XR CHEST 1 VIEWon 07-26-2024 XR CHEST [...] on the right Report Dictated on Workstation: [facility]erm[facility] Electronically Signed By: Elijah Flynn MD Electronically Signed Date/Time: 07/26/2024 6:25 AM EST [facility] XR Chest Single viewon 07-26 Left pleural effusio n. No new abnormality on the right Report Dictated on Workstation: Dermira Electronically Signed By: Elijah Flynn MD Electronically Signed Date/Time: 07/26/2024 6:25 AM EST [facility] Patient Name: SHARONDA FLORES : 1955 [...] the right. Right costophrenic angle is sharp. [facility] Elijah Flynn MD - 07/26/2024 Patient [...] Electronically Signed Date/Time: 07/26/2024 6:25 AM EST [facility] Radiology Study observation (narrative) [facility] XR Chest Single viewOrdered By: Elijah Flynn on 07-26-[address] [facility] Work Phone: Arterial Lineon 07-25-2024 DARY [employer]ronic[employer] RN - NARROW GAUGE BRAKEMAN 07/25/2024 9:11 AM Arterial Line: Date/Time: 07/25/2024 [...] procedure well with no complications. Staffing Performed: NARROW GAUGE BRAKEMAN Resident/NARROW GAUGE BRAKEMAN: Dewayne Rodriges APRN - NARROW GAUGE BRAKEMAN [facility] BASIC METABOLIC PANELon -2 Anion gap [Moles/Vol] 7 mmol/L Normal 3-13 [facility] Comment on above: Performed By: #### L [id number] ####Carpet Cleaning Technician: MARILEE ALVARADO ([phone])[address] Calcium [Mass/Vol] 9.4 mg/dL Normal 8.8-10.0 [facility] Comment on above: Performed By: #### L AB15 ####Carpet Cleaning Technician: MARILEE ALVARADO ([phone])[address] Chloride [Moles/Vol] 112 mmol/L High 98-107 [facility] Comment on above: Performed By: #### L AB15 ####Carpet Cleaning Technician: MARILEE ALVARADO ([phone])[facility] ([facility])[address] [place] [address] CO2 [Moles/Vol] 24 mmol/L Normal 23-31 [facility] Comment on above: Performed By: #### L AB15 ####Carpet Cleaning Technician: MARILEE ALVARADO ([phone])[facility])[address] [place] [address] Creatinine [Mass/Vol] 0.94 mg/dL Normal 0.72-1.25 [facility] Comment on above: Performed By: #### L AB15 ####Carpet Cleaning Technician: MARILEE ALVARADO ([phone])[facility])[address] [place] [address] GLOMERULAR FILTRATION RATE ML/MIN/1.73 SQ M.PREDICTED 87.8 mL/min/1.73m*2 Normal >60.0 [facility] Comment on above: Result Comment: Calc ulation based on the Chronic Kidney Disease Epidemiology Collaboration (CKD-EPI) equation refit without adjustment for race Performed By: #### L AB15 ####Carpet Cleaning Technician: MARILEE ALVARADO ([phone])[facility])[address] [place] [address] [place] Glucose [Mass/Vol] 83 mg/dL Normal 82-115 [facility] Comment on above: Performed By: #### L AB15 ####Carpet Cleaning Technician: MARILEE ALVARADO ([phone])[facility])[address] [place] [address] Potassium [Moles/Vol] 3.8 mmol/L Normal 3.5-5.1 [facility] Comment on above: Result Comment: [facility] potassium values may be up to 0.5 mmol/L lower than serum values. Performed By: #### L AB15 ####Carpet Cleaning Technician: MARILEE ALVARADO ([phone])[facility])[address] [place] [address] Sodium [Moles/Vol] 143 mmol/L Normal 136-145 [facility] Comment on above: Performed By: #### L AB15 ####Carpet Cleaning Technician: MARILEE ALVARADO ([phone])[facility] [place] [address] [place] Urea nitrogen [Mass/Vol] 15 mg/dL Normal 9-23 [facility] Comment on above: Performed By: #### L AB15 ####Carpet Cleaning Technician: MARILEE ALVARADO ([phone])[facility] [place] [address] [place] Anion gap [Moles/Vol] 4 mmol/L Normal 3-13 [facility] Comment on above: Performed By: #### L AB113, [id number], LAB15 ####Carpet Cleaning Technician: MARILEE ALVARADO ([phone])[facility] [place] [address] Calcium [Mass/Vol] 10.8 mg/dL High 8.8-10.0 [facility] Comment on above: Performed By: #### L AB113, [id number], LAB15 ####Carpet Cleaning Technician: MARILEE ALVARADO ([phone])[facility] [place] [address] [place] Chloride [Moles/Vol] 113 mmol/L High 98-107 [facility] Comment on above: Performed By: #### L AB113, [id number], LAB15 ####Carpet Cleaning Technician: MARILEE ALVARADO ([phone])[facility] [place] [address] [place] CO2 [Moles/Vol] 23 mmol/L Normal 23-31 [facility] Comment on above: Performed By: #### L AB113, [id number], LAB15 ####Carpet Cleaning Technician: MARILEE ALVARADO ([phone])[facility] [place] [address] [place] Creatinine [Mass/Vol] 0.93 mg/dL Normal 0.72-1.25 [facility] Comment on above: Performed By: #### L AB113, [id number], LAB15 ####Carpet Cleaning Technician: MARILEE ALVARADO ([phone])[facility] [place] [address] [place] GLOMERULAR FILTRATION RATE ML/MIN/1.73 SQ M.PREDICTED 88.9 mL/min/1.73m*2 Normal >60.0 [facility] Comment on above: Result Comment: Calc ulation based on the Chronic Kidney Disease Epidemiology Collaboration (CKD-EPI) equation refit without adjustment for race Performed By: #### L AB113, [id number], LAB15 ####Carpet Cleaning Technician: MARILEE ALVARADO ([phone])[facility])[address] [place] [address] Glucose [Mass/Vol] 120 mg/dL High 82-115 [facility] Comment on above: Performed By: #### L AB113, [id number], LAB15 ####Carpet Cleaning Technician: MARILEE ALVARADO ([phone])[facility])[address] [place] [address] Potassium [Moles/Vol] 4.0 mmol/L Normal 3.5-5.1 [facility] Comment on above: Result Comment: [facility] potassium values may be up to 0.5 mmol/L lower than serum values. Performed By: #### L AB113, [id number], LAB15 ####Carpet Cleaning Technician: MARILEE ALVARADO ([phone])[facility])[address] [place] [address] Sodium [Moles/Vol] 140 mmol/L Normal 136-145 [facility] Comment on above: Performed By: #### L AB113, [id number], LAB15 ####Carpet Cleaning Technician: MARILEE ALVARADO ([phone])[facility])[address] [place] [address] Urea nitrogen [Mass/Vol] 15 mg/dL Normal 9-23 [facility] Comment on above: Performed By: #### L AB113, [id number], LAB15 ####Carpet Cleaning Technician: MARILEE ALVARADO ([phone])[facility])[address] [place] [address] BLOOD GAS ARTERIALon 12-26-2 024 Base excess Calc (Bld) [Moles/Vol] -1.9000 mmol/L Normal -3.0-3.0 [facility] Comment on above: Performed By: #### L AB76 ####Carpet Cleaning Technician: MARILEE ALVARADO ([phone])[facility])[address] [place] [address] CO2 [Moles/Vol] 27.6 mmol/L High 23.0-27.0 [facility] Comment on above: Performed By: #### L AB76 ####Carpet Cleaning Technician: MARILEE ALVARADO ([phone])[facility])[address] [place] [address] HCO3 (Bld) [Moles/Vol] 25.8 mmol/L High 21.0-25.0 [facility] Comment on above: Performed By: #### L AB76 ####Carpet Cleaning Technician: MARILEE ALVARADO ([phone])[facility])[address] [place] [address] Hemoglobin (Bld) [Mass/Vol] 10.4 g/dL Normal Screen only [facility] Comment on above: Performed By: #### L AB76 ####Carpet Cleaning Technician: MARILEE ALVARADO ([phone])[facility])[address] [place] [address] OXYGEN SATURATION (%) IN ARTERIAL BLOOD 98.3 % Normal 95.0-100.0 [facility] Comment on above: Performed By: #### L AB76 ####Carpet Cleaning Technician: MARILEE ALVARADO ([phone])[facility])[address] [place] [address] PCO2 ARTERIAL 58.8 mm Hg High >35.0-<45. 0 [facility] Comment on above: Performed By: #### L AB76 ####Carpet Cleaning Technician: MARILEE ALVARADO ([phone])[address] PH ARTERIAL 7.260 Low 7.350-7.45 0 [facility] Comment on above: Performed By: #### L AB76 ####Carpet Cleaning Technician: MARILEE ALVARADO ([phone])[facility] [address] PO2 ARTERIAL 154.5 mm Hg High 80.0-100.0 [facility] Comment on above: Performed By: #### L AB76 ####Carpet Cleaning Technician: MARILEE ALVARADO ([phone])[facility])[address] [place] [address] SOURCE OF OXYGEN 60% Oxygen Normal [facility] Comment on above: Performed By: #### L AB76 ####Carpet Cleaning Technician: MARILEE ALVARADO ([phone])[facility])[address] [place] [address] Base excess Calc (Bld) [Moles/Vol] -2.2000 mmol/L Normal -3.0-3.0 [facility] Comment on above: Performed By: #### L AB76 ####Carpet Cleaning Technician: MARILEE ALVARADO ([phone])[facility])[address] [place] [address] CO2 [Moles/Vol] 23.7 mmol/L Normal 23.0-27.0 [facility] Comment on above: Performed By: #### L AB76 ####Carpet Cleaning Technician: MARILEE ALVARADO ([phone])[facility])[address] [place] [address] HCO3 (Bld) [Moles/Vol] 22.5 mmol/L Normal 21.0-25.0 [facility] Comment on above: Performed By: #### L AB76 ####Carpet Cleaning Technician: MARILEE ALVARADO ([phone])[facility])[address] [place] [address] Hemoglobin (Bld) [Mass/Vol] 7.6 g/dL Normal Screen only [facility] Comment on above: Performed By: #### L AB76 ####Carpet Cleaning Technician: MARILEE ALVARADO ([phone])[facility])[address] [place] [address] OXYGEN SATURATION (%) IN ARTERIAL BLOOD 98.8 % Normal 95.0-100.0 [facility] Comment on above: Performed By: #### L AB76 ####Carpet Cleaning Technician: MARILEE ALVARADO ([phone])[facility])[address] [place] [address] PCO2 ARTERIAL 37.9 mm Hg Normal >35.0-<45. 0 [facility] Comment on above: Performed By: #### L AB76 ####Carpet Cleaning Technician: MARILEE ALVARADO ([phone])[facility])[address] [place] [address] PH ARTERIAL 7.392 Normal 7.350-7.45 0 [facility] Comment on above: Performed By: #### L AB76 ####Carpet Cleaning Technician: MARILEE ALVARADO ([phone])[facility])[address] [place] [address] PO2 ARTERIAL 339.5 mm Hg High 80.0-100.0 [facility] Comment on above: Performed By: #### L AB76 ####Carpet Cleaning Technician: MARILEE ALVARADO ([phone])[facility])[address] [place] [address] SOURCE OF OXYGEN Vent Normal [facility] Comment on above: Result Comment: 100% Performed By: #### L AB76 ####Carpet Cleaning Technician: MARILEE ALVARADO ([phone])[facility])[address] [place] [address] Basic metabolic 1998 panelon 07-25-2024 Anion gap [Moles/Vol] 7 mmol/L 3 - 13 mmol/L [facility] Calcium [Mass/Vol] 9.4 mg/dL 8.8 - 10. 0 mg/dL [facility] Chloride [Moles/Vol] 112 mmol/L High 98 - 10 7 mmol/L [facility] CO2 [Moles/Vol] 24 mmol/L 23 - 31 mmol/L [facility] Creatinine [Mass/Vol] 0.94 mg/dL 0.72 - 1.25 mg/dL [facility] GFR/1.73 sq M.predicted (S/P/Bld) [Vol rate/Area] 87.8 mL/min - PINF [facility] Comment on above: Calculation based on the Chronic Kidney Disease Epidemiology Collaboration (CKD-EPI) equation refit without adjustment for race Glucose [Mass/Vol] 83 mg/dL 82 - 115 mg/dL [facility] Interpretation and review of laboratory results Abnormal [facility] Potassium [Moles/Vol] 3.8 mmol/L 3.5 - 5.1 mmol/L [facility] Comment on above: Plasma potassium ivan ues may be up to 0.5 mmol/L lower than serum values. Sodium [Moles/Vol] 143 mmol/L 136 - 145 mmol/L [facility] Urea nitrogen [Mass/Vol] 15 mg/dL 9 - 23 mg/dL [facility] Anion gap [Moles/Vol] 4 mmol/L 3 - 13 mmol/L [facility] Calcium [Mass/Vol] 10.8 mg/dL High 8.8 - 10. 0 mg/dL [facility] Chloride [Moles/Vol] 113 mmol/L High 98 - 10 7 mmol/L [facility] CO2 [Moles/Vol] 23 mmol/L 23 - 31 mmol/L [facility] Creatinine [Mass/Vol] 0.93 mg/dL 0.72 - 1.25 mg/dL [facility] GFR/1.73 sq M.predicted (S/P/Bld) [Vol rate/Area] 88.9 mL/min - PINF [facility] Comment on above: Calculation based on the Chronic Kidney Disease Epidemiology Collaboration (CKD-EPI) equation refit without adjustment for race Glucose [Mass/Vol] 120 mg/dL High 82 - 115 mg/dL [facility] Potassium [Moles/Vol] 4 mmol/L 3.5 - 5.1 mmol/L [facility] Comment on above: Plasma potassium ivan ues may be up to 0.5 mmol/L lower than serum values. Sodium [Moles/Vol] 140 mmol/L 136 - 145 mmol/L [facility] Urea nitrogen [Mass/Vol] 15 mg/dL 9 - 23 mg/dL [facility] CALCIUM, IONIZEDon 4 CALCIUM IONIZED 5.90 mg/dL High 4.30-5.20 [facility] Comment on above: Performed By: #### L AB54 ####Carpet Cleaning Technician: MARILEE ALVARADO ([phone])[facility] ([address] PH, IONIZED CALCIUM 7.39 Normal 7.31-7.46 [facility] Comment on above: Performed By: #### L AB54 ####Carpet Cleaning Technician: MARILEE ALVARADO ([phone])[facility])[address] [place] [address] CBC (HEMOGRAM)on 07-25-2024 Erythrocyte distribution width (RBC) [Ratio] 13.2 % Normal 11.5-15.0 [facility] Comment on above: Performed By: #### L [id number] ####Carpet Cleaning Technician: MARILEE ALVARADO ([phone])[facility])[address] [place] [address] Hematocrit (Bld) [Volume fraction] 23.7 % Low 40.0-52.0 [facility] Comment on above: Performed By: #### L [id number] ####Carpet Cleaning Technician: MARILEE ALVARADO ([phone])[facility])[address] [place] [address] Hemoglobin (Bld) [Mass/Vol] 7.9 g/dL Low 13.0-18.0 [facility] Comment on above: Performed By: #### L [id number] ####Carpet Cleaning Technician: MARILEE ALVARADO ([phone])[facility])[address] [place] [address] IPF 7 Normal [facility] Comment on above: Performed By: #### L [id number] ####Carpet Cleaning Technician: MARILEE ALVARADO ([phone])[facility])[address] [place] [address] MCH (RBC) [Entitic mass] 28.3 pg Normal 26.0-34.0 [facility] Comment on above: Performed By: #### L AB294 ####Carpet Cleaning Technician: MARILEE ALVARADO ([phone])[facility])[address] [place] [address] MCHC 33.3 % Normal 30.5-36.0 [facility] Comment on above: Performed By: #### L AB294 ####Carpet Cleaning Technician: MARILEE ALVARADO ([phone])[facility])[address] [place] [address] MCV (RBC) [Entitic vol] 84.9 fL Normal 77.0-99.0 [facility] Comment on above: Performed By: #### L [id number] ####Carpet Cleaning Technician: MARILEE ALVARADO ([phone])[facility])[address] [place] [address] Platelet mean volume (Bld) [Entitic vol] 11.0 fL Normal 9.0-12.7 [facility] Comment on above: Performed By: #### L AB294 ####Carpet Cleaning Technician: MARILEE ALVARADO ([phone])[facility])[address] [place] [address] Platelets (Bld) [#/Vol] 67 10*3/uL Low 140-440 [facility] Comment on above: Performed By: #### L AB294 ####Carpet Cleaning Technician: MARILEE ALVARADO ([phone])[facility])[address] [place] [address] RBC (Bld) [#/Vol] 2.79 10*6/uL Low 4.40-5.90 [facility] Comment on above: Performed By: #### L AB294 ####Carpet Cleaning Technician: MARILEE ALVARADO ([phone])[facility])[address] [place] [address] WBC (Bld) [#/Vol] 5.9 10*3/uL Normal 3.6-10.7 [facility] Comment on above: Performed By: #### L AB294 ####Carpet Cleaning Technician: MARILEE ALVARADO ([phone])[facility])[address] [place] [address] Erythrocyte distribution width (RBC) [Ratio] 13.1 % Normal 11.5-15.0 [facility] Comment on above: Performed By: #### L AB294 ####Carpet Cleaning Technician: MARILEE ALVARADO ([phone])[facility])[address] [place] [address] Hematocrit (Bld) [Volume fraction] 29.3 % Low 40.0-52.0 [facility] Comment on above: Performed By: #### L AB294 ####Carpet Cleaning Technician: MARILEE ALVARADO ([phone])[facility])[address] [place] [address] Hemoglobin (Bld) [Mass/Vol] 9.6 g/dL Low 13.0-18.0 [facility] Comment on above: Performed By: #### L AB294 ####Carpet Cleaning Technician: MARILEE ALVARADO ([phone])[facility])[address] [place] [address] IPF 6 Normal [facility] Comment on above: Performed By: #### L [id number] ####Carpet Cleaning Technician: MARILEE ALVARADO ([phone])[facility])[address] [place] [address] MCH (RBC) [Entitic mass] 28.1 pg Normal 26.0-34.0 [facility] Comment on above: Performed By: #### L AB294 ####Carpet Cleaning Technician: MARILEE ALVARADO ([phone])[facility])[address] [place] [address] MCHC 32.8 % Normal 30.5-36.0 [facility] Comment on above: Performed By: #### L AB294 ####Carpet Cleaning Technician: MARILEE ALVARADO ([phone])[facility])[address] [place] [address] MCV (RBC) [Entitic vol] 85.7 fL Normal 77.0-99.0 S [facility] Comment on above: Performed By: #### L AB294 ####Carpet Cleaning Technician: MARILEE ALVARADO ([phone])[facility])[address] [place] [address] Platelet mean volume (Bld) [Entitic vol] 11.1 fL Normal 9.0-12.7 [facility] Comment on above: Performed By: #### L [id number] ####Carpet Cleaning Technician: MARILEE ALVARADO ([phone])[facility])[address] [place] [address] Platelets (Bld) [#/Vol] 58 10*3/uL Low 140-440 [facility] Comment on above: Performed By: #### L [id number] ####Carpet Cleaning Technician: MARILEE ALVARADO ([phone])[facility])[address] [place] [address] RBC (Bld) [#/Vol] 3.42 10*6/uL Low 4.40-5.90 [facility] Comment on above: Performed By: #### L AB294 ####Carpet Cleaning Technician: MARILEE ALVARADO ([phone])[facility])[address] [place] [address] WBC (Bld) [#/Vol] 5.0 10*3/uL Normal 3.6-10.7 [facility] Comment on above: Performed By: #### L [id number] ####Carpet Cleaning Technician: MARILEE ALVARADO ([phone])[facility])[address] [place] [address] Erythrocyte distribution width (RBC) [Ratio] 13.0 % Normal 11.5-15.0 [facility] Comment on above: Performed By: #### L AB294 ####Carpet Cleaning Technician: MARILEE ALVARADO ([phone])[facility])[address] [place] [address] Hematocrit (Bld) [Volume fraction] 21.2 % Low 40.0-52.0 [facility] Comment on above: Performed By: #### L [id number] ####Carpet Cleaning Technician: MARILEE ALVARADO ([phone])[facility])[address] [place] [address] Hemoglobin (Bld) [Mass/Vol] 7.1 g/dL Low 13.0-18.0 [facility] Comment on above: Performed By: #### L [id number] ####Carpet Cleaning Technician: MARILEE ALVARADO ([phone])[facility])[address] [place] [address] IPF 7 Normal [facility] Comment on above: Performed By: #### L [id number] ####Carpet Cleaning Technician: MARILEE ALVARADO ([phone])[facility])[address] [place] [address] MCH (RBC) [Entitic mass] 28.6 pg Normal 26.0-34.0 [facility] Comment on above: Performed By: #### L [id number] ####Carpet Cleaning Technician: MARILEE ALVARADO ([phone])[facility])[address] [place] [address] MCHC 33.5 % Normal 30.5-36.0 [facility] Comment on above: Performed By: #### L [id number] ####Carpet Cleaning Technician: MARILEE ALVARADO ([phone])[facility])[address] [place] [address] MCV (RBC) [Entitic vol] 85.5 fL Normal 77.0-99.0 [facility] Comment on above: Performed By: #### L [id number] ####Carpet Cleaning Technician: MARILEE ALVARADO ([phone])[facility])[address] [place] [address] Platelet mean volume (Bld) [Entitic vol] 11.1 fL Normal 9.0-12.7 [facility] Comment on above: Performed By: #### L [id number] ####Carpet Cleaning Technician: MARILEE ALVARADO ([phone])[facility])[address] [place] [address] Platelets (Bld) [#/Vol] 58 10*3/uL Low 140-440 S [facility] Comment on above: Performed By: #### L [id number] ####Carpet Cleaning Technician: MARILEE ALVARADO ([phone])[facility])[address] [place] [address] RBC (Bld) [#/Vol] 2.48 10*6/uL Low 4.40-5.90 [facility] Comment on above: Performed By: #### L [id number] ####Carpet Cleaning Technician: MARILEE ALVARADO ([phone])[facility])[address] [place] [address] WBC (Bld) [#/Vol] 5.4 10*3/uL Normal 3.6-10.7 [facility] Comment on above: Performed By: #### L [id number] ####Carpet Cleaning Technician: MARILEE ALVARADO ([phone])[facility])[address] [place] [address] CBC panel Auto (Bld)Ordered By: Mohini Powell on 07-25-2024 Erythrocyte distribution width (RBC) [Ratio] 13.2 % 11.5 - 15.0 % [facility] Hematocrit (Bld) [Volume fraction] 23.7 % Low 40.0 - 52.0 % [facility] Hemoglobin (Bld) [Mass/Vol] 7.9 g/dL Low 13.0 - 18.0 g/dL [facility] Interpretation and review of laboratory results Abnormal [facility] IPF 7 [facility] MCH (RBC) [Entitic mass] 28.3 pg 26.0 - 34.0 pg [facility] MCHC (RBC) [Mass/Vol] 33.3 % 30.5 - 36.0 % [facility] MCV (RBC) [Entitic vol] 84.9 fL 77.0 - 99.0 fL [facility] Platelet mean volume (Bld) [Entitic vol] 11 fL 9.0 - 12.7 fL [facility] Platelets (Bld) [#/Vol] 67 10*3/uL Low 140 - 440 10*3/uL [facility] RBC (Bld) [#/Vol] 2.79 10*6/uL Low 4.40 - 5.90 10*6/uL [facility] WBC (Bld) [#/Vol] 5.9 10*3/uL 3.6 - 10.7 10*3/uL [facility] CBC panel Auto (Bld)Ordered By: Diana Tan on 07-25-2024 Erythrocyte distribution width (RBC) [Ratio] 13.1 % 11.5 - 15.0 % [facility] Hematocrit (Bld) [Volume fraction] 29.3 % Low 40.0 - 52.0 % [facility] Hemoglobin (Bld) [Mass/Vol] 9.6 g/dL Low 13.0 - 18.0 g/dL [facility] Interpretation and review of laboratory results Abnormal [facility] IPF 6 [facility] MCH (RBC) [Entitic mass] 28.1 pg 26.0 - 34.0 pg [facility] MCHC (RBC) [Mass/Vol] 32.8 % 30.5 - 36.0 % [facility] MCV (RBC) [Entitic vol] 85.7 fL 77.0 - 99.0 fL [facility] Platelet mean volume (Bld) [Entitic vol] 11.1 fL 9.0 - 12.7 fL [facility] Platelets (Bld) [#/Vol] 58 10*3/uL Low 140 - 440 10*3/uL [facility] RBC (Bld) [#/Vol] 3.42 10*6/uL Low 4.40 - 5.90 10*6/uL [facility] WBC (Bld) [#/Vol] 5 10*3/uL 3.6 - 10.7 10*3/uL [facility] CBC panel Auto (Bld)Ordered By: Cesar Iglesias on 07-25-2024 Erythrocyte distribution width (RBC) [Ratio] 13 % 11.5 - 15.0 % [facility] Hematocrit (Bld) [Volume fraction] 21.2 % Low 40.0 - 52.0 % [facility] Hemoglobin (Bld) [Mass/Vol] 7.1 g/dL Low 13.0 - 18.0 g/dL [facility] Interpretation and review of laboratory results Abnormal [facility] IPF 7 [facility] MCH (RBC) [Entitic mass] 28.6 pg 26.0 - 34.0 pg [facility] MCHC (RBC) [Mass/Vol] 33.5 % 30.5 - 36.0 % [facility] MCV (RBC) [Entitic vol] 85.5 fL 77.0 - 99.0 fL [facility] Platelet mean volume (Bld) [Entitic vol] 11.1 fL 9.0 - 12.7 fL [facility] Platelets (Bld) [#/Vol] 58 10*3/uL Low 140 - 440 10*3/uL [facility] RBC (Bld) [#/Vol] 2.48 10*6/uL Low 4.40 - 5.90 10*6/uL [facility] WBC (Bld) [#/Vol] 5.4 10*3/uL 3.6 - 10.7 10*3/uL [facility] Calcium.ionized [Moles/Vol]O rdered By: Tonny Swab on 07-25-2024 Calcium.ionized (Bld) [Moles/Vol] 5.9 mg/dL High 4.30 - 5.20 mg/dL [facility] PH, IONIZED CALCIUM 7.39 7.31 - 7.46 [facility] Central Venous Lineon 2023 DARY Veronica RN - NARROW GAUGE BRAKEMAN 07/25/2024 9:11 AM Central Venous Line: Date/Time: [...] procedure well with no complications. Staffing Performed: NARROW GAUGE BRAKEMAN Resident/NARROW GAUGE BRAKEMAN: Dewayne Rodriges APRN - JESSIE [facility] Consulton 07-25-2024 Consult ------ -- Attestation signed by Patsy Telles MD at 07/25/2024 3:39 PM I have personally performed a face to face diagnostic evaluation on this patient. In addition, I have reviewed the resident's/LEAD WEB APPLICATION DEVELOPER/OPERATOR PREFINISH's care plan and agree with those findings [...] imaging are reviewed as detailed in the resident's/LEAD WEB APPLICATION DEVELOPER/OPERATOR PREFINISH's note -- Department of Internal Medicine Division of Endocrinology, Diabetes, & Metabolism Endocrinology Note Patient Name: Sharonda Flores : 1955 AGE: 69 y.o. Room/Bed: T1-109/T1-109 A Admission Date: 07/25/2024 Visit Date: 07/25/2024 Reason for Endocrine Consult: Stress hyperglycemia Provider/Team Requesting Consult: Cardiology PCP: Tima Tello MD Outpt Chain Maker: No ASSESSMENT: Stress induced hyperglycemia Steroid induced [...] q8h chl (more content not included)... Normal [facility] Consult ------ -- Attestation signed by Mike Mosley MD at 07/25/2024 2:53 PM I have personally performed a face to face diagnostic evaluation on this patient today on 07/25/24. Labs, imaging studies, and electronic medical record notes on [employer] have been reviewed by me. This note documented and discussed by the []nuclear officer []Fellow [x] CHIQUIS reflects my history, [...] and extubation later today Transfuse prn -- [facility]: Critical Care Consultation Note Date: 07/25/24 PATIENT NAME: Sharonda Flores : 1955 (69 y.o.) Reason for Consult: Critical Care & Vent Management HPI: Sharonda Flores is a 68 y.o. male referred by Dr. Tineo for CABG. Patient's PMHx includes CAD (s/p several PCI, most recently 2011 - LAD, LCx, distal RCA with known KNOT CUTTER D2), preserved LVEF (65%), HTN, HLD, PAD (follows with vascular at [place]), prior tobacco use, pulmonary nodules, adenocarcinoma s/p RUL lobectomy 01/2024 (follows with Pulmonology), and psoriasis. Patient had presented to [place] ED with a sharp pain in the [...] Conclusion of Hand-off OR CTVICU CO No [place] CI CVP SVR PAP Additional Interventions/Misc during Handoff Review of Systems Unable to perform ROS: Intubated Allergies: Pcn [penicillins] Past Medical History: has a past medical history of Arrhythmia, CAD (coronary artery disease), Cancer (CMS/HCC) (HCC), Congenital heart disease, Hyperlipidemia, Hypertension, MD, old, and Sleep apnea. Past Surgical History: [...] daily. 01/30/24 Yes Jazmyn White APRN - PAPER PROCESSING MACHINE HELPER ezetimibe (Zetia) 10 MG tablet Take 10 mg by mouth every (more content not included)... Normal [facility] FIBRINOGENon 07-25-2024 FIBRINOGEN 92 mg/dL Low 200-400 [facility] Comment on above: Performed By: #### L [id number], [id number] ####Carpet Cleaning Technician: MARILEE ALVARADO ([phone])[facility])[address] [place] [address] FIBRINOGEN 109 mg/dL Low 200-400 [facility] Comment on above: Performed By: #### L [id number], [id number] ####Carpet Cleaning Technician: MARILEE ALVARADO ([phone])[facility])[address] [place] [address] Fibrinogen Coag (PPP) [Mass/ Vol]on 07-25-2024 Interpretation and review of laboratory results Abnormal [facility] Interpretation and review of laboratory results Abnormal [facility] HEMOGLOBIN A1Con 07-25-2024 Glucose [Mass/Vol] 126 mg/dL Normal [facility] Comment on above: Result Comment: MIKE Carr COMMENTS: HbA1c values of 5.7-6.4 percent indicate an increased risk for developing diabetes mellitus. HbA1c values greater than or equal to 6.5 percent are diagnostic of diabetes mellitus. For diagnosis of diabetes in individuals without unequivocal hyperglycemia, results should be confirmed by repeat testing. Performed By: #### L [id number] ####Carpet Cleaning Technician: MARILEE ALVARADO ([phone])[facility])[address] [place] [address] HEMOGLOBIN A1C 6.0 %HbA1C High <5.7 [facility] Comment on above: Result Comment: Norm al less than 5.7% Prediabetes 5.7% to 6.4% Diabetes 6.5% or higher --HgbA1C levels may not be accurate in patients who have renal disease, received recent blood transfusions, are anemic, or who have dyshemoglobinemia. Performed By: #### L AB90 ####Carpet Cleaning Technician: MARILEE ALVARADO ([phone])[facility])[address] [place] [address] HEMOGLOBIN AND HEMATOCRIT, B LOODon 07-25-2024 Hematocrit (Bld) [Volume fraction] 25.8 % Low 40.0-52.0 [facility] Comment on above: Order Comment: Recom mend 1 hour post transfusion Performed By: #### L [id number] ####Carpet Cleaning Technician: MARILEE ALVARADO ([phone])[facility])[address] [place] [address] Hemoglobin (Bld) [Mass/Vol] 8.5 g/dL Low 13.0-18.0 [facility] Comment on above: Order Comment: Recom mend 1 hour post transfusion Performed By: #### L [id number] ####Carpet Cleaning Technician: MARILEE ALVARADO ([phone])[facility])[address] [place] [address] Hemoglobin (Bld) [Mass/Vol]O rdered By: Willie Prince on 07-25-2024 Hematocrit (Bld) [Volume fraction] 25.8 % Low 40.0 - 52.0 % [facility] Interpretation and review of laboratory results Abnormal [facility] Laboratory - Chemistry and C hemistry - challengeon 07-25-2024 Glucose [Mass/Vol] 108 mg/dL High 70 - 100 mg/dL [facility] Glucose [Mass/Vol] 126 mg/dL High 70 - 100 mg/dL [facility] Glucose [Mass/Vol] 134 mg/dL High 70 - 100 mg/dL [facility] Glucose [Mass/Vol] 123 mg/dL High 70 - 100 mg/dL [facility] Glucose [Mass/Vol] 125 mg/dL High 70 - 100 mg/dL [facility] Glucose [Mass/Vol] 122 mg/dL High 70 - 100 mg/dL [facility] Glucose [Mass/Vol] 110 mg/dL High 70 - 100 mg/dL [facility] Glucose [Mass/Vol] 115 mg/dL High 70 - 100 mg/dL [facility] Glucose [Mass/Vol] 114 mg/dL High 70 - 100 mg/dL [facility] Average glucose Estimated from glycated hemoglobin (Bld) [Mass/Vol] 126 mg/dL [facility] Magnesium [Mass/Vol] 5.5 mg/dL High 1.6 - 2 .6 mg/dL [facility] Glucose [Mass/Vol] 87 mg/dL 70 - 100 mg/dL [facility] Base excess Calc (Bld) [Moles/Vol] -2.2000 mmol/L -3.0 - 3.0 mmol/L [facility] CO2 (Bld) [Partial pressure] 37.9 mm[Hg] - PINF [facility] CO2 [Moles/Vol] 23.7 mmol/L 23.0 - 27.0 mmol/L [facility] HCO3 (Bld) [Moles/Vol] 22.5 mmol/L 21.0 - 25.0 mmol/L [facility] Oxygen (Bld) [Partial pressure] 339.5 mm[Hg] High [facility] pH (Bld) 7.392 [pH] 7.350 - 7.450 [facility] Laboratory - Chemistry and C hemistry - challengeOrdered By: Latosha Santos on 07-25-2024 Base excess Calc (Bld) [Moles/Vol] -1.9000 mmol/L -3.0 - 3.0 mmol/L [facility] CO2 (Bld) [Partial pressure] 58.8 mm[Hg] High - PINF [facility] CO2 [Moles/Vol] 27.6 mmol/L High 23.0 - 27.0 mmol/L [facility] HCO3 (Bld) [Moles/Vol] 25.8 mmol/L High 21.0 - 25.0 mmol/L [facility] Oxygen (Bld) [Partial pressure] 154.5 mm[Hg] High [facility] pH (Bld) 7.26 [pH] Low 7.350 - 7.450 [facility] Laboratory - Coagulationon 1 09-25-2023 Fibrinogen Coag (PPP) [Mass/Vol] 92 mg/dL Low 200 - 400 mg/dL [facility] aPTT Coag (PPP) [Time] 29 s 20.0 - 30.5 s [facility] INR Coag (PPP) [Relative time] 1.3 {INR} High 0.9 - 1.1 [facility] Comment on above: Recommended Anticoag ulant Therapy: [...] s High 9.0 - 1 2.0 s [facility] Fibrinogen Coag (PPP) [Mass/Vol] 109 mg/dL Low 200 - 400 mg/dL [facility] aPTT Coag (PPP) [Time] 23.4 s 20.0 - 30.5 s [facility] INR Coag (PPP) [Relative time] 1.6 {INR} High 0.9 - 1.[address] [facility] Comment on above: Recommended Anticoag ulant Therapy: [...] s High 9.0 - 1 2.[address] [facility] Laboratory - Hematology and Cell countsOrdered By: Willie Prince on 07-25-2024 Hemoglobin (Bld) [Mass/Vol] 8.5 g/dL Low 13.0 - 18.0 g/dL [facility] - Hematology and Cell countson 07-25-2024 HbA1c (Bld) [Mass fraction] 6 % High NINF [facility] Comment on above: Normal less than 5.7 % Prediabetes 5.7% to 6.4% Diabetes 6.5% or higher --HgbA1C levels may not be accurate in patients who have renal disease, received recent blood transfusions, are anemic, or who have dyshemoglobinemia. Hemoglobin (Bld) [Mass/Vol] 7.6 g/dL Screen only [facility] Laboratory - Hematology and Cell countsOrdered By: Latosha Santos on 07-25-2024 Hemoglobin (Bld) [Mass/Vol] 10.4 g/dL Screen only [facility] MAGNESIUMon 07-25-2024 Magnesium [Mass/Vol] 5.5 mg/dL High 1.6-2.6 [facility] Comment on above: Result Comment: MIKE Carr COMMENTS: Higher values can be expected in females during menses. Performed By: #### L [id number], [id number], [id number] ####Carpet Cleaning Technician: MARILEE ALVARADO ([id number])[facility] ([facility])[address] [place] [address] Magnesium [Mass/Vol]on 07-25 Higher values can be expected in females during menses. [facility] No Panel Informationon 07-25 Interpretation and review of laboratory results Abnormal [facility] Performed by: [facility], [address] [place] [address] CLIA ID: [id number] [facility] Interpretation and review of laboratory results Abnormal [facility] Performed by: [facility], [address] [place] [address] CLIA ID: [id number] [facility] Interpretation and review of laboratory results Abnormal [facility] Performed by: [facility], [address] [place] [address] CLIA ID: [id number] [facility] Interpretation and review of laboratory results Abnormal [facility] Performed by: [facility], [address] [place] [address] CLIA ID: [id number] [facility] Blood Expiration Date S [facility] Blood Expiration Date S [facility] Crossmatch interpretation COMP [facility] Dispense Status Transfused [facility] Product Blood Type [address] [facility] PRODUCT CODE [id number] [facility] Unit ABO AB [facility] Unit Number [id number] [facility] Unit Number [id number] [facility] RH Positive [facility] Volume 300 mL [facility] Interpretation and review of laboratory results Abnormal [facility] Performed by: [facility], [address] [place] [address] CLIA ID: [id number] [facility] Blood Expiration Date S [facility] Blood Expiration Date S [facility] Dispense Status Transfused [facility] Product Blood Type 6200 [facility] PRODUCT CODE [id number] [facility] ABO A [facility] Number [id number] [facility] Number [id number] [facility] RH Positive [facility] Volume 113 ml [facility] Volume 106 ml [facility] Interpretation and review of laboratory results Abnormal [facility] Performed by: [facility], [address] [place] [address] CLIA ID: [id number] [facility] Interpretation and review of laboratory results Abnormal [facility] Performed by: [facility], [address] [place] [address] CLIA ID: [id number] [facility] Interpretation and review of laboratory results Abnormal [facility] Interpretation and review of laboratory results Abnormal [facility] Performed by: [facility], [address] [place] [address] CLIA ID: [id number] [facility] Interpretation and review of laboratory results Abnormal [facility] Performed by: [facility], [address] [place] [address] CLIA ID: [id number] [facility] Interpretation and review of laboratory results Abnormal [facility] HbA1c values of 5.7- 6.4 percent indicate an increased risk for developing diabetes mellitus. HbA1c values greater than or equal to 6.5 percent are diagnostic of diabetes mellitus. For diagnosis of diabetes in individuals without unequivocal hyperglycemia, results should be confirmed by repeat testing. [facility] Interpretation and review of laboratory results Abnormal [facility] Interpretation and review of laboratory results Normal [facility] Performed by: [facility], [address] [place] [address] CLIA ID: [id number] [facility] Interpretation and review of laboratory results Abnormal [facility] Source Of Oxygen [facility] Comment on above: 100% No Panel InformationOrdered By: Latosha Santos on 07-25-2024 Interpretation and review of laboratory results Abnormal [facility] Source Of Oxygen 60% Oxygen [facility] No Panel InformationOrdered By: Tonny Pedro on 07-25-2024 Interpretation and review of laboratory results Abnormal [facility] Op Noteon 07-25-2024 Op Note Cardiothoracic Surge [...] Intraoperative transesophageal echocardiogram Surgeon: Lico Martinez DO Animal Keeper(s): [x] Yecenia Rodriguez [] Ramya Daniel [] Heather Gonzalez [] Heather Garcia [] Other Anesthesia: General--Dr. Fredi Buchanan Barnworker Groom: Jazmyn Rodgers Total IV fluids: See anesthesia [...] A two team approach was taken. The bilingual office assistant team performed all aspects of [...] was anastomosed (more content not included)... Normal [facility] PHOSPHORUSon 07-25-2024 Phosphate [Mass/Vol] 2.2 mg/dL Low 2.3-4.7 [facility] Comment on above: Performed By: #### L [id number], [id number], LAB15 ####Carpet Cleaning Technician: MARILEE ALVARADO ([phone])[address] PROTIME AND APTTon aPTT Coag (Bld) [Time] 29.0 s Normal 20.0-30.5 [facility] Comment on above: Performed By: #### L [id number], [id number] ####Carpet Cleaning Technician: MARILEE ALVARADO ([id number])[address] INR Coag (PPP) [Relative time] 1.3 {INR} High 0.9-1.1 [facility] Comment on above: Result Comment: Adebayo [...] prevent Myocardial Infarction Performed By: #### L [id number], [id number] ####Carpet Cleaning Technician: MARILEE [phone])[address] PT Coag (PPP) [Time] 14.2 s High 9.0-12.0 [facility] Comment on above: Performed By: #### L [id number], [id number] ####Carpet Cleaning Technician: MARILEE [phone])[facility] [place] [address] aPTT Coag (Bld) [Time] 23.4 s Normal 20.0-30.5 [facility] Comment on above: Performed By: #### L [id number], [id number] ####Carpet Cleaning Technician: MARILEE ALVARADO ([id number])[facility])[address] [place] [address] INR Coag (PPP) [Relative time] 1.6 {INR} High 0.9-1.1 [facility] Comment on above: Result Comment: Adebayo [...] Myocardial Infarction Performed By: #### L [id number], [id number] ####Carpet Cleaning Technician: MARILEE ALVARADO ([phone])[facility])[address] [place] [address] PT Coag (PPP) [Time] 17.8 s High 9.0-12.0 [facility] Comment on above: Performed By: #### L [id number], [id number] ####Carpet Cleaning Technician: MARILEE ALVARADO ([phone])[facility])[address] [place] [address] [place] Phosphate [Moles/Vol]on 07-01 Phosphate [Mass/Vol] 2.2 mg/dL Low 2.3 - 4 .7 mg/dL [facility] Heart Transesophagealon 1 09-25-2023 Left Ventricle: [...] 8. ZARI probe was inserted by the NARROW GAUGE BRAKEMAN with no difficulty. No topical anesthesic. No complications. Saline contrast was given to evaluate for intracardiac shunt. Bubble study was without Valsalva. See anesthesia notes for medications given. Wall Scoring Baseline Score Index: 1.00 The left ventricular wall motion is normal. CV CPACS HEMO US Heart TransesophagealOrde red By: Tara Sainz on 07-25-2024 [employer] Work Phone: XR CHEST 1 VIEWon 07-25-2024 [...] Signed Date/Time: 07/25/2024 2:05 PM EST Normal [facility] [employer] [facility] XR Chest Single viewon 07-25 Mild linear atelecta sis in the left midlung. Report Dictated on Electronically Signed By: Juana Bose MD Electronically Signed Date/Time: 07/25/2024 2:05 PM [facility] RADIOLOGY SYSTEM Patient Name: SHARONDA [...] wires. Mild degenerative change of the spine.. [facility] RADIOLOGY SYSTEM Juana Bose M D - 07/25/2024 Patient Name: [facility] FLORES : 1955 [id number] Exam Date/Time: 07/25/2024 13:12 Procedure: XR CHEST [...] Electronically Signed Date/Time: 07/25/2024 2:05 PM EST [facility] Radiology Study observation (narrative) [facility] XR Chest Single viewOrdered By: Juana Bose on 07-25-2024 [employer] Work Phone: [phone] 07-18-2024 [id number] Medication List Accurate as of July 18, [...] your scheduled surgery time. Please bring your [facility] Surgical folder and medication list with you day of surgery. We encourage you to write down any questions you may have for the surgeon, anesthesiologist, or other members of the surgical team and bring it with you the day of surgery. Please bring photo ID and insurance information. Normal [facility] BLOOD TYPE AND SCREEN GELon 07-18-2024 ABO GROUPING AB Normal [facility] Comment on above: Performed By: #### L [id number] ####Carpet Cleaning Technician: ALEKSANDRA NUNEZ ([phone])[facility]OD [facility] ([facility])[address] RH TYPE IN BLOOD Positive Normal [facility] Comment on above: Performed By: #### L AB276 ####Carpet Cleaning Technician: ALEKSANDRA NUNEZ ([phone])[facility] BLOOD [facility] ([facility])[address] [place] [address] CBC (HEMOGRAM)on 07-18-2024 Erythrocyte distribution width (RBC) [Ratio] 12.9 % Normal 11.5-15.0 [facility] Comment on above: Performed By: #### L AB294 ####Carpet Cleaning Technician: ALEKSANDRA NUNEZ ([phone])[facility] ([facility])[address] [place] [address] Hematocrit (Bld) [Volume fraction] 40.2 % Normal 40.0-52.0 [facility] Comment on above: Performed By: #### L AB294 ####Carpet Cleaning Technician: ALEKSANDRA NUNEZ ([phone])[facility] ([facility])[address] [place] [address] Hemoglobin (Bld) [Mass/Vol] 13.1 g/dL Normal 13.0-18.0 [facility] Comment on above: Performed By: #### L AB294 ####Carpet Cleaning Technician: ALEKSANDRA NUNEZ ([phone])[facility] ([facility])[address] [place] [address] MCH (RBC) [Entitic mass] 27.8 pg Normal 26.0-34.0 [facility] Comment on above: Performed By: #### L AB294 ####Carpet Cleaning Technician: ALEKSANDRA NUNEZ ([phone])[facility] ([facility])[address] MCHC 32.6 % Normal 30.5-36.0 [facility] Comment on above: Performed By: #### L AB294 ####Carpet Cleaning Technician: ALEKSANDRA NUNEZ ([phone])[facility] ([facility])[address] MCV (RBC) [Entitic vol] 85.4 fL Normal 77.0-99.0 [facility] Comment on above: Performed By: #### L AB294 ####Carpet Cleaning Technician: ALEKSANDRA NUNEZ ([phone])[facility] ([facility])[address] Platelet mean volume (Bld) [Entitic vol] 12.1 fL Normal 9.0-12.7 [facility] Comment on above: Performed By: #### L AB294 ####Carpet Cleaning Technician: ALEKSANDRA NUNEZ ([phone])[facility] ([facility])[address] [place] [address] [place] Platelets (Bld) [#/Vol] 133 10*3/uL Low 140-440 [facility] Comment on above: Performed By: #### L AB294 ####Carpet Cleaning Technician: ALEKSANDRA NUNEZ ([phone])[facility] [place] ([facility])[address] RBC (Bld) [#/Vol] 4.71 10*6/uL Normal 4.40-5.90 [facility] Comment on above: Performed By: #### L AB294 ####Carpet Cleaning Technician: ALEKSANDRA NUNEZ ([id number])[facility]ATION[facility] ([facility])[address] WBC (Bld) [#/Vol] 4.5 10*3/uL Normal 3.6-10.7 [facility] Comment on above: Performed By: #### L AB294 ####Carpet Cleaning Technician: ALEKSANDRA NUNEZ ([phone])[facility] ([facility])[address] COMPLETE URINALYSISon 2023 BACTERIA (#/HPF) IN URINE Negative Normal Negative [facility] Comment on above: Performed By: #### L AB347 ####Carpet Cleaning Technician: ALEKSANDRA NUNEZ ([phone])[facility] ([facility])[address] BILIRUBIN, TOTAL PRESENCE IN URINE Negative Normal Negative [facility] Comment on above: Performed By: #### L AB347 ####Carpet Cleaning Technician: ALEKSANDRA NUNEZ ([id number])[facility] ([facility])[address] Clarity (U) Clear Normal Clear [facility] Comment on above: Performed By: #### L AB347 ####Carpet Cleaning Technician: ALEKSANDRA NUNEZ ([phone])[facility] ([facility])[address] Color (U) Yellow Normal Lt. Yellow [facility] Comment on above: Performed By: #### L AB347 ####Carpet Cleaning Technician: ALEKSANDRA NUNEZ ([id number])[facility] ([facility])[address] GLUCOSE (MG/DL) IN URINE Normal Normal Normal (<70) [facility] Comment on above: Performed By: #### L [id number] ####Carpet Cleaning Technician: ALEKSANDRA NUNEZ ([phone])[facility] CENTER (SBHLAB)[address] HEMOGLOBIN PRESENCE IN URINE Negative Normal Negative [facility] Comment on above: Performed By: #### L [id number] ####Carpet Cleaning Technician: ALEKSANDRA NUNEZ ([id number])[facility] ([facility])[address] HYALINE CASTS (#/LPF) IN URINE SEDIMENT BY MICROSCOPY 0-2 Abnormal Negative [facility] Comment on above: Performed By: #### L [id number] ####Carpet Cleaning Technician: ALEKSANDRA PEREZJUNG ([phone])[facility] [place] (SB[facility]AB)[address] Ketones Ql (U) Negative Normal Negative [facility] Comment on above: Performed By: #### L [id number] ####Carpet Cleaning Technician: ALEKSANDRA NUNEZ ([phone])[facility] LEUKOCYTE ESTERASE PRESENCE IN URINE BY TEST STRIP Negative Normal Negative [facility] Comment on above: Performed By: #### L [id number] ####Carpet Cleaning Technician: ALEKSANDRA NUNEZ ([phone])[facility] ([facility])[address] MUCUS (#/LPF) IN URINE SEDIMENT Many Abnormal Negative [facility] Comment on above: Performed By: #### L [id number] ####Carpet Cleaning Technician: ALEKSANDRA NUNEZ ([phone])[facility] ([facility])[address] NITRITE PRESENCE IN URINE Negative Normal Negative [facility] Comment on above: Performed By: #### L [id number] ####Carpet Cleaning Technician: ALEKSANDRA NUNEZ ([id number])[facility] (HLAB)[address] pH (U) 5.5 [pH] Normal 5.0-8.0 [facility] Comment on above: Performed By: #### L [id number] ####Carpet Cleaning Technician: ALEKSANDRA NUNEZ ([id number])[facility] [place] (HLAB)[address] Protein (U) [Mass/Vol] 10 mg/dL Abnormal Negative [facility] Comment on above: Performed By: #### L AB347 ####Carpet Cleaning Technician: ALEKSANDRA NUNEZ ([id number])[facility] [place] (SBHLAB)[address] RBC (#/HPF) IN URINE SEDIMENT 0-2 Normal 0-2 [facility] Comment on above: Performed By: #### L [id number] ####Carpet Cleaning Technician: ALEKSANDRA NUNEZ ([phone])[facility] (SB[facility]AB)[address] Specific gravity (U) [Rel density] 1.028 Normal 1.005-1.03 0 [facility] Comment on above: Performed By: #### L [id number] ####Carpet Cleaning Technician: ALEKSANDRA NUNEZ ([phone])[facility] [place] (SBHLAB)[address] SQUAMOUS EPITHELIAL CELLS (#/HPF) IN URINE SEDIMENT 0-2 Normal 3-5 [facility] Comment on above: Performed By: #### L [id number] ####Carpet Cleaning Technician: ALEKSANDRA NUNEZ ([id number])[facility] ([facility])[address] UROBILINOGEN (MG/DL) IN URINE Normal Normal Normal (0-1) [facility] Comment on above: Performed By: #### L [id number] ####Carpet Cleaning Technician: ALEKSANDRA NUNEZ ([phone])[facility] (SBHLAB)[address] WBC (LEUKOCYTE) (#/HPF) IN URINE SEDIMENT 0-2 Normal 0-5 [facility] Comment on above: Performed By: #### L [id number] ####Carpet Cleaning Technician: ALEKSANDRA NUNEZ ([phone])[facility] (SBHLAB)[address] COMPREHENSIVE METABOLIC PANE Ra 07-18-2024 Albumin [Mass/Vol] 4.0 g/dL Normal 3.4-4.8 [facility] Comment on above: Performed By: #### L AB17 ####Carpet Cleaning Technician: ALEKSANDRA NUNEZ ([phone])[facility] [place] (SBHLAB)[address] ALP [Catalytic activity/Vol] 71 U/L Normal 40-150 [facility] Comment on above: Performed By: #### L AB17 ####Carpet Cleaning Technician: ALEKSANDRA NUNEZ ([phone])[facility] [place] (SBHLAB)[address] ALT [Catalytic activity/Vol] 14 U/L Normal <40 [facility] Comment on above: Performed By: #### L AB17 ####Carpet Cleaning Technician: ALEKSANDRA NUNEZ ([phone])[facility] [place] (SBHLAB)[address] Anion gap [Moles/Vol] 10 mmol/L Normal 3-13 [facility] Comment on above: Performed By: #### L AB17 ####Carpet Cleaning Technician: ALEKSANDRA NUNEZ ([id number])[facility] [place] (SBHLAB)[address] AST [Catalytic activity/Vol] 25 U/L Normal <34 [facility] Comment on above: Performed By: #### L AB17 ####Carpet Cleaning Technician: ALEKSANDRA NUNEZ ([id number])[facility] [place] (SBHLAB)[address] Bilirubin [Mass/Vol] 0.7 mg/dL Normal <1.2 [facility] Comment on above: Performed By: #### L AB17 ####Carpet Cleaning Technician: ALEKSANDRA NUNEZ ([phone])[facility] [place] (SBHLAB)[address] Calcium [Mass/Vol] 9.3 mg/dL Normal 8.8-10.0 [facility] Comment on above: Performed By: #### L AB17 ####Carpet Cleaning Technician: ALEKSANDRA NUNEZ ([id number])[facility] [place] (SBHLAB)[address] [place] [address] [place] Chloride [Moles/Vol] 107 mmol/L Normal 98-107 [facility] Comment on above: Performed By: #### L AB17 ####Carpet Cleaning Technician: ALEKSANDRA NUNEZ ([phone])[facility] ([facility])[address] CO2 [Moles/Vol] 24 mmol/L Normal 23-31 [facility] Comment on above: Performed By: #### L AB17 ####Carpet Cleaning Technician: ALEKSANDRA NUNEZ ([phone])[facility] ([facility])[address] Creatinine [Mass/Vol] 0.94 mg/dL Normal 0.72-1.25 [facility] Comment on above: Performed By: #### L AB17 ####Carpet Cleaning Technician: ALEKSANDRA NUNEZ ([id number])[facility] ([facility])[address] GLOMERULAR FILTRATION RATE ML/MIN/1.73 SQ M.PREDICTED 87.8 mL/min/1.73m*2 Normal >60.0 [facility] Comment on above: Result Comment: Calc ulation based on the Chronic Kidney Disease Epidemiology Collaboration (CKD-EPI) equation refit without adjustment for race Performed By: #### L AB17 ####Carpet Cleaning Technician: ALEKSANDRA NUNEZ ([phone])[facility] ([facility])[address] Glucose [Mass/Vol] 92 mg/dL Normal 82-115 [facility] Comment on above: Performed By: #### L AB17 ####Carpet Cleaning Technician: ALEKSANDRA NUNEZ ([id number])[facility] ([facility])[address] [place] [address] [place] Potassium [Moles/Vol] 4.9 mmol/L Normal 3.5-5.1 [facility] Comment on above: Result Comment: [facility] potassium values may be up to 0.5 mmol/L lower than serum values. Performed By: #### L AB17 ####Carpet Cleaning Technician: ALEKSANDRA NUNEZ ([phone])[facility] (SBHLAB)[address] Protein [Mass/Vol] 7.0 g/dL Normal 6.4-8.3 [facility] Comment on above: Performed By: #### L AB17 ####Carpet Cleaning Technician: ALEKSANDRA NUNEZ ([phone])[facility]ATION[facility]ather [facility] (SBHLAB)[address] Sodium [Moles/Vol] 141 mmol/L Normal 136-145 [facility] Comment on above: Performed By: #### L AB17 ####Carpet Cleaning Technician: ALEKSANDRACHUNG NUNEZ ([id number])[facility] (SBHLAB)[address] Urea nitrogen [Mass/Vol] 14 mg/dL Normal 9-23 [facility] Comment on above: Performed By: #### L AB17 ####Carpet Cleaning Technician: ALEKSANDRA CEJAILDA ([phone])[facility] (SBHLAB)[address] MRSA BY PCRon 07-18-2024 MRSA BY [...] modified and its performance characteristics determined by [facility]. The U. S. Food and Drug Administration has not approved or cleared this test; however, FDA clearance or approval is not currently required for clinical use. The results are not intended to be used as the sole means for clinical diagnosis or patient management decisions. Normal [facility] Comment on above: Performed By: #### L [id number] #### Carpet Cleaning Technician: MARILEE ALVARADO ([id number]) [facility] ([facility]) [address] PROTIME AND APTTon aPTT Coag (Bld) [Time] 24.5 s Normal 20.0-30.5 [facility] Comment on above: Performed By: #### L [id number] ####Carpet Cleaning Technician: ALEKSANDRA NUNEZ ([id number])[facility] ([facility])[address] [place] [address] INR Coag (PPP) [Relative time] 1.0 {INR} Normal 0.9-1.1 [facility] Comment on above: Result Comment: Adebayo [...] prevent Myocardial Infarction Performed By: #### L [id number] ####Carpet Cleaning Technician: ALEKSANDRA NUNEZ ([id number])[facility] ([facility])[address] [place] [address] PT Coag (PPP) [Time] 11.4 s Normal 9.0-12.0 [facility] Comment on above: Performed By: #### L [id number] ####Carpet Cleaning Technician: ALEKSANDRA NUNEZ ([phone])[facility])[address] [place] [address] Progress Noteon 07-18-2024 Progress Note [facility] NILESH Flores : 1955 Primary Care Physician: Tima Tello MD The patient and/or family/surrogate voluntarily agreed to participate in ACP services. Patient?s cognitive capacity: Full Code Status: [x] [FULL CODE - Continue all advanced life support: CPR,intubation,invasive procedures] [_] [DNR-CCA - DO NOT do CPR, intubation] [_] [DNR-FUNERAL CAR CHAUFFEUR - Comfort care only] [_] DNR form [...] and/or family/surrogate. Xander Sandoval PA-C Acute care [facility] 07/18/2024, 1:28 PM [facility] 29on 07-12-2024 29 Addended by: RUDDY EATON on: 07/12/2024 10:40 AM Modules accepted: Orders [facility] 36on 07-12-2024 36 Meds sent and orders placed [facility] Office Visiton 07-10-2024 Follow-up visit [id number] Luther Flores 1955 M Date Provider Department Center 07/10/2024 [id number] [facility] None Family History Problem Relation Age of Onset Heart disease Father No Known Problems Mother Cancer Maternal Grandfather Family Status - Relation Status Age at Father Mother Alive Brother Alive Maternal Grandfather Level of Service:03890 [place] OFFICE/OUTPATIENT [facility] 60 MINUTES (57) Reason for Visit and Comments: New Patient [542] [facility] Progress Noteon 07-10-2024 Progress Note Pre op teaching done with patient. Instructed to hold NSAIDS 7 days prior to surgery. All other medications per [facility] protocol. Pharmacy confirmed. All questions answered. [facility] Progress Note [facility] CARDIOVASCULAR [facility] THORACIC SURGERY [address] [facility] [address] [facility] [address] Dept: [phone] Dept Loc: [phone] Visit type: New Reason for Visit: CAD Assessment: 1. 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 [...] - LAD, LCx, distal RCA with known KNOT CUTTER D2), preserved LVEF (65%), HTN, HLD, PAD (follows with vascular at [place]), prior tobacco use, pulmonary nodules, adenocarcinoma s/p RUL lobectomy 01/2024 (follows with pulmonology), and psoriasis. Pt had presented to [place] ED with a sharp pain in the [...] right VATS lobectomy for lung cancer at [facility]. He has recovered well since then. Past Medical History Past Medical History: Diagnosis Date Arrhythmia v-fib/ arrest CAD (coronary artery disease) Congenital heart disease Hyperlipidemia Hypertension MD, old Sleep apnea Past Surgical History Past Surgical History: Procedure Laterality Date CARDIAC CATHETERIZATION N/A 07/05/2024 Performed by Becky Tineo MD at [facility] Cardiac Cath/EP Lab CARDIAC PROCEDURE 03/15/2012 BMS mid dis RCA CARDIAC PROCEDURE 03/2012 REBECCA to mis dist LAD CARDIAC PROCEDURE 05/2012 REBECCA to prox LCx CORONARY ANGIOPLASTY 05/2012 circ, distal RCA, & LAD Family History Family History Problem Relation Name Age of Onset Heart disease Father Thad No Known Problems Mother Cancer Maternal Grandfather Mother Social History Marital status: Work history: Retired [place] status: Never Served Social History Tobacco Use [...] Positive for (more content not included)... Normal [facility] 36on 07-02-2024 36 Spoke w/pt re: C instructions. Pt requesting instructions via Hydrocapsule. Normal [facility] 36 Prep for proc completed Normal [facility] 36 Called patient to of selina this Monday07/05/2024 and l/m to cmb No auth req per Medicare Normal [facility] Basic metabolic 2000 panelon 06-28-2024 Anion gap [Moles/Vol] 12 mmol/L Normal 8-15 [facility] Comment on above: Order Comment: Speci men Type: BLOOD SPECIMENOrdering Facility: [facility] Address: [address] [place] [address] Performed By: #### 2 4321-2 ####[facility] LABCLIA [id number] [place] [address] [place] Calcium [Mass/Vol] 9.1 mg/dL Normal 8.5-10.2 [facility] Comment on above: Order Comment: Speci men Type: BLOOD SPECIMENOrdering Facility: [facility] Address: [address] [place] [address] Performed By: #### 2 4321-2 ####[facility] LABCLIA [id number] [place] [address] [place] Chloride [Moles/Vol] 104 mmol/L Normal 98-107 [facility] Comment on above: Order Comment: Speci men Type: BLOOD SPECIMENOrdering Facility: [facility] Address: [address] [place] [address] Performed By: #### 2 4321-2 ####[facility] LABCLIA [id number] [place] [id number] [place] CO2 [Moles/Vol] 28 mmol/L Normal 22-30 [facility] Comment on above: Order Comment: Speci men Type: BLOOD SPECIMENOrdering Facility: [facility] Address: [address] [place] [address] Performed By: #### 2 4321-2 ####[facility] LABCLIA [id number] [place] [id number] [place] Creatinine [Mass/Vol] 0.97 mg/dL Normal 0.73-1.22 [facility] Comment on above: Order Comment: Vernon men Type: BLOOD SPECIMENOrdering Facility: [facility] Address: [address] [place] [address] Performed By: #### 2 4321-2 ####[facility] LABCLIA [id number] [place] [id number] [place] Creatinine and Glomerular filtration rate.predicted panel (S/P/Bld) 85 mL/min/1.73m??? Normal >=60 [facility] Comment on above: Order Comment: Vernon sterling Type: BLOOD SPECIMENOrdering Facility: [facility] Address: [address] [place] [address] Result Comment: Piedad mated Glomerular Filtration Rate [...] actual GFR. Performed By: #### 2 4321-2 ####[facility] LABCLIA [id number] [place] [id number] [place] Glucose [Mass/Vol] 88 mg/dL Normal 74-99 [facility] Comment on above: Order Comment: Vernon sterling Type: BLOOD SPECIMENOrdering Facility: [facility] Address: [address] [place] [address] Result Comment: The [place] Diabetes Association (ADA) provides guidance for cutoff [...] Standards of Medical Care in Diabetes 2016, [place] Diabetes Association. Diabetes Care. 2016.39(Suppl 1). Performed By: #### 2 4321-2 ####[facility] LABCLIA [id number] [place] [address] [place] Potassium [Moles/Vol] 4.1 mmol/L Normal 3.7-5.1 [facility] Comment on above: Order Comment: Vernon sterling Type: BLOOD SPECIMENOrdering Facility: [facility] Address: [address] [place] [address] Performed By: #### 2 4321-2 ####[facility] LABCLIA [id number] [place] [address] [place] Sodium [Moles/Vol] 144 mmol/L Normal 136-144 [facility] Comment on above: Order Comment: Vernon sterling Type: BLOOD SPECIMENOrdering Facility: [facility] Address: [address] [place] [address] Performed By: #### 2 4321-2 ####[facility] LABCLIA [id number] [place] [id number] [place] Urea nitrogen [Mass/Vol] 15 mg/dL Normal 9-24 [facility] Comment on above: Order Comment: Vernon sterling Type: BLOOD SPECIMENOrdering Facility: [facility] Address: [address] [place] [address] Performed By: #### 2 4321-2 ####[facility] LABCLIA [id number] [address] [address] [place] CBC panel Auto (Bld)on 06-28 Erythrocyte distribution width (RBC) [Ratio] 12.7 % Normal 11.5-15.0 [facility] Comment on above: Order Comment: Speci men Type: BLOOD SPECIMENOrdering Facility: [facility] Address: [address] [place] [address] Performed By: #### 5 8410-2 ####[facility] STONEKeronNCMARY [id number] [place] [address] [place] Hematocrit (Bld) [Volume fraction] 39.6 % Normal 39.0-51.0 [facility] Comment on above: Order Comment: Speci men Type: BLOOD SPECIMENOrdering Facility: [facility] Address: [address] [place] [address] Performed By: #### 5 8410-2 ####[facility] HOSPITALMIRANDA [id number] [place] [address] [place] Hemoglobin (Bld) [Mass/Vol] 12.7 g/dL Low 13.0-17.0 [facility] Comment on above: Order Comment: Speci men Type: BLOOD SPECIMENOrdering Facility: [facility] Address: [address] [place] [address] Performed By: #### 5 8410-2 ####[facility] HOSPITALMIRANDA [id number] [place] [address] [place] MCH (RBC) [Entitic mass] 27.5 pg Normal 26.0-34.0 [facility] Comment on above: Order Comment: Speci men Type: BLOOD SPECIMENOrdering Facility: [facility] Address: [address] [place] [address] Performed By: #### 5 8410-2 ####[facility] HOS[facility]ITALMIRANDA [id number] [place] [address] [place] MCHC (RBC) [Mass/Vol] 32.1 g/dL Normal 30.5-36.0 [facility] Comment on above: Order Comment: Speci men Type: BLOOD SPECIMENOrdering Facility: [facility] Address: [address] [place] [address] Performed By: #### 5 8410-2 ####[facility] BRANDIEWBRITLIA [id number] [place] [address] [place] MCV (RBC) [Entitic vol] 85.7 fL Normal 80.0-100.0 [facility] Comment on above: Order Comment: Speci men Type: BLOOD SPECIMENOrdering Facility: [facility] Address: [address] [place] [address] Performed By: #### 5 8410-2 ####[facility] HOSPITALBRITLIA [id number] [place] [address] [place] Nucleated RBC (Bld) [#/Vol] 10*3/uL Normal <0.01 [facility] Comment on above: Order Comment: Speci men Type: BLOOD SPECIMENOrdering Facility: [facility] Address: [address] [place] [address] Performed By: #### 5 8410-2 ####[facility] HOSPITALBRITLIA [id number] [place] [address] [place] Platelet mean volume (Bld) [Entitic vol] 11.0 fL Normal 9.0-12.7 [facility] Comment on above: Order Comment: Speci men Type: BLOOD SPECIMENOrdering Facility: [facility] Address: [address] [place] [address] Performed By: #### 5 8410-2 ####[facility] HOSPITALBRITLIA [id number] [place] [address] [place] Platelets (Bld) [#/Vol] 146 10*3/uL Low 150-400 [facility] Comment on above: Order Comment: Speci men Type: BLOOD SPECIMENOrdering Facility: [facility] Address: [address] [place] [address] Performed By: #### 5 8410-2 ####[facility] HOSPITALLIA [id number] [place] [address] [place] RBC (Bld) [#/Vol] 4.62 10*6/uL Normal 4.20-6.00 [facility] Comment on above: Order Comment: Speci men Type: BLOOD SPECIMENOrdering Facility: [facility] Address: [address] [place] [address] Performed By: #### 5 8410-2 ####[facility] [id number] [place] [address] [place] WBC (Bld) [#/Vol] 4.29 10*3/uL Normal 3.70-11.00 [facility] Comment on above: Order Comment: Speci men Type: BLOOD SPECIMENOrdering Facility: [facility] Address: [address] [place] [address] Performed By: #### 5 8410-2 ####[facility] [id number] [place] [address] [place] 36on 06-26-2024 36 Lab orders faxed to PCP office [phone]/confirmed Normal [facility] 36on 06-25-2024 36 Patient reviewed pawan [...] understanding and is agreeable to plan. Normal [facility] 36 [address] to patient[address] He st [...] US's. Patient is agreeable to plan. Normal [facility] 36 Name of caller: Luther bob Contact phone number: [phone] Relationship to Patient: Patient Provider: Dr Tineo Practice: [facility] Chief Complaint/Reason for Call: Patient had Stress Test today and was told he would have to come back as he was unable to finish the test. Please advise patient accordingly. Best time of day caller can be reached: any Patient advised that office/PCP has 24-48 business hours to return their call: No Normal [facility] No Panel InformationOrdered By: Joshua Fonseca on 06-25-2024 Angina Index 0 [email or web address] Phone: Ao Root Index 1.8 cm/m2 [email or web address] Phone: Aortic Root 3.2 cm [email or web address] Phone: Aortic Sinus Valsalva 3.2 cm [employer] Phone: Aortic Sinus Valsalva Index 1.8 cm/m2 [email or web address] Phone: Ascending Aorta 2.5 cm [email or web address] Phone: Ascending Aorta Index 1.4 cm/m2 [employer] Phone: AV Area by Peak Velocity 2.1 cm2 [email or web address] Phone: AV Area by VTI 2.3 cm2 [email or web address] Phone: AV Mean Gradient 4 mmHg [email or web address] Phone: [phone] AV Mean Velocity 0.9 m/s [email or web address] Phone: AV Peak Gradient 7 mmHg [email or web address] Phone: AV Peak Velocity 1.4 m/s [email or web address] Phone: AV Velocity Ratio 0.57 [email or web address] Phone: AV VTI 27.9 cm [email or web address] Phone: JOE/BSA Peak Velocity 1.2 cm2/m2 [employer] Work Phone: JOE/BSA VTI 1.3 cm2/m2 [facility] [employer] Work Phone: Baseline Diastolic BP 84 mmHg [employer] Work Phone: Baseline HR [address] [facility] [employer] Work Phone: Baseline ST Depression 0 mm [facility] Work Phone: Baseline Systolic BP 140 mmHg [employer] Work Phone: EF BP 67 % 55 - 100 % [facility] [employer] Work Phone: Fractional Shortening 2D 43 % 28 - 44 % [facility] [employer] Work Phone: Global Longitudinal Strain -16.5 % [facility] [employer] Work Phone: [phone] Interpretation and review of laboratory results Abnormal [facility] [employer] Phone: IVSd 0.9 cm 0.6 - 1.[address] [facility] [employer] Work Phone: LA Diameter 3.[address] [facility] [employer] Work Phone: LA Size Index 2.19 cm/m2 [facility] [employer] Work Phone: LA Volume 2C 32 mL 18 - [address] [facility] [employer] Work Phone: LA Volume 4C 35 mL 18 - [address] [facility] [employer] Phone: LA Volume A/L [address] [facility] [employer] Work Phone: LA Volume BP 35 mL 18 - [address] [facility] [employer] Work Phone: LA Volume Index 2C 18 mL/m2 16 - 34 mL/m2 [facility] [employer] Work Phone: LA Volume Index 4C 20 mL/m2 16 - 34 mL/m2 [facility] [employer] Work Phone: LA Volume Index A/L 21 mL/m2 16 - 34 mL/m2 [facility] [employer] Work Phone: LA Volume Index BP 20 ml/m2 16 - 34 ml/m2 [facility] [employer] Work Phone: LA/AO Root Ratio 1.[address] [facility] [employer] Work Phone: LV EDV A2C 53 mL [employer] Work Phone: LV EDV A4C 71 mL [employer] Work Phone: LV EDV BP 63 mL Abnormal 67 - 155 mL [employer] Work Phone: LV EDV Index A2C 30 mL/m2 [employer] Work Phone: LV EDV Index A4C 40 mL/m2 [employer] Work Phone: LV EDV Index BP 35 mL/m2 [employer] Work Phone: LV Ejection Fraction A2C 62 % [employer] Work Phone: LV Ejection Fraction A4C 70 % [employer] Work Phone: LV ESV A2C 20 mL [employer] Work Phone: LV ESV A4C 21 mL [employer] Work Phone: LV ESV BP 21 mL Abnormal 22 - 58 mL [employer] Work Phone: LV ESV Index A2C 11 mL/m2 [employer] Work Phone: LV ESV Index A4C 12 mL/m2 [employer] Work Phone: LV ESV Index BP 12 mL/m2 [employer] Work Phone: LV Mass 2D 118.2 g 88 - 224 g [employer] Work Phone: LV Mass 2D Index 66.4 g/m2 49 - 115 g/m2 [employer] Work Phone: LV RWT Ratio 0.5 [employer] Work Phone: LVIDd 4 cm Abnormal 4.2 - 5.9 cm [employer] Work Phone: LVIDd Index 2.25 cm/m2 [employer] Work Phone: LVIDs 2.3 cm [employer] Work Phone: LVIDs Index 1.29 cm/m2 [employer] Work Phone: LVOT Area 3.8 cm2 [facility] Phone: [phone] LVOT Cardiac Output 4.5 liter/mi nu te [facility] Work Phone: [phone] LVOT Diameter 2.[address] [facility] [employer] Work Phone: [phone] LVOT Mean Gradient 1 mmHg [facility] Phone: [phone] LVOT Peak Gradient 2 mmHg [facility] [employer] Work Phone: [phone] LVOT Peak Velocity 0.8 m/s [facility] Phone: [phone] LVOT Stroke Volume Index 35.4 mL/m2 [facility] Phone: [phone] LVOT SV 63.[address] [facility] [employer] Work Phone: [phone] LVOT VTI 16.[address] [facility] [employer] Work Phone: [phone] LVOT:AV VTI Index 0.[address] [facility] [employer] Work Phone: LVPWd 1 cm 0.6 - 1.0 cm [facility] Phone: [phone] Depression (mm) 0.5 mm [facility] Work Phone: [phone] Recovery Stage 1 BP 144/[address] [facility] [employer] Work Phone: Recovery Stage 1 HR 78 bpm [facility] Phone: [phone] Recovery Stage 2 BP 190/82 mmHg [facility] Phone: Recovery Stage 2 Comments headache [facility] [employer] Work Phone: Recovery Stage 2 HR 71 bpm [facility] Work Phone: Recovery Stage 3 BP 180/82 mmHg [facility] Work Phone: Recovery Stage 3 HR 72 bpm [facility] Phone: Recovery Stage 4 BP 148/80 mmHg [facility] Phone: Recovery Stage 4 Comments headache and L shouler ache are resolved [facility] Phone: [phone] Recovery Stage 4 HR 75 bpm [facility] Phone: [phone] Sinotubular Junction 2.2 cm [facility] Work Phone: [phone] Stress Diastolic BP [address] [facility] [employer] Phone: [phone] Stress Peak HR [address] [facility] [employer] Phone: [phone] Stress Percent HR Achieved 71 % [facility] [employer] Phone: [phone] Stress Rate Pressure Product 62218 bpm*mmHg [facility] [employer] Phone: [phone] Depression 0 mm [facility] [employer] Phone: [phone] Stress Stage 1 BP 138/[address] [facility] [employer] Phone: [phone] Stress Stage 1 HR [address] [facility] [employer] Phone: [phone] Stress Stage 2 BP 146/[address] [facility] [employer] Phone: [phone] Stress Stage 2 Comments L shoulder ache 10/[address] [facility] [employer] Phone: [phone] Stress Stage 2 HR 108 bpm [facility] Phone: [phone] Stress Systolic BP [address] [facility] [employer] Phone: Stress Target HR [address] [facility] [employer] Phone: TAPSE 2.1 cm 1.[address] [facility] [employer] Phone: [facility] [employer] Phone: No Panel Informationon 06-25 Study Impression: [...] 06-25-2024 Oxygen saturation in Blood 97 % [facility] [employer] Work Phone: 36on 06-24-2024 36 Received call from Non-invasive radiology stating the Stress Echo that is scheduled for tomorrow 06/25 is not passing medical necessity. *[id number] Normal [facility] Carotid Duplex Ultrasoundon 06-14-[address] [facility] [address] [place] [address] Carotid Duplex Ultrasound 06/14/24 0847 MR#: [id number] Acct: [id number] Name: SHARONDA FLORES Rep #: [id number] : 1955 68 From: David Petersen MD [...] the left vertebral artery. Procedure Carotid Duplex 43265. This is a Carotid Duplex examination using [...] Dictated: 06/14/24 0847 Date Transcribed: 06/17/24 1311 High Lead Yarder: Signed [facility] 36on 06-13-2024 36 Left detailed messag e for patient reviewing PROCESS SUPERVISOR recommendations. [facility] 36 [facility], and I actually discontinued his lisinopril (5 mg) at our visit because his blood pressure was low normal. Perhaps this was another office? PCP maybe? [facility] 36on 06-12-2024 36 Patient called and katia Romo called him when he was on his way home yesterday from his appt stating she wants him to stay on the lisinopril 10mg and she would send to his pharmacy. Nothing there and it's discontinued on his list. [facility] [address] [facility] 36on 06-11-2024 36 Scanned under Media [facility] 36 Requested ED records . Waiting on fax [facility] 37on 06-11-2024 37 Please obtain a Parachute d pressure cuff for home monitoring. You can find these at any local pharmacy, [facility], etc. It should be an upper arm [...] this log to your follow up appointments. [facility] CNPNon 06-11-2024 RENEEN Telephone (FAMPWS) -- SHARONDA FLORES ([id number]) 1955 M [place] Date Time Provider Department [...] [E78.2] Order(s):LIPID PANEL BASIC [SQLIPB] Order #: [id number] FUTURE Prescriptions as of 06/11/2024 - ezetimibe [...] USE DISORDER [F17.200] 06/03/2008 SPRAIN SHOULDER/ARM NOS [[id number]] 06/03/2008 JOINT PAIN-ANKLE [M25.579] 06/03/2008 HERPES SIMPLEX NOS [B00.9] 06/03/2008 MIXED HYPERLIPIDEMIA [E78.2] 07/02/2008 SCREENING MAL NEOP-COLON [Z12.11] 10/08/2008 BENIGN NEOPLASM LG BOWEL [D12.6] 10/08/2008 Coronary artery disease involving kaw lacey* Essential hypertension [I10] Thrombocytopenia (HCC) [D69.6] Tinnitus of both ears [H93.13] Psoriasis [L40.9] Abdominal aortic aneurysm (AAA) without rupture*06/08/2021 At risk for sleep apnea [Z91.89] 11/29/[address] nodules on CT [R91.8] 11/09/2023 Lung nodule [R91.1] 12/15/2023 S/P lobectomy of lung [Z90.2] 02/09/2024 Primary lung adenocarcinoma, right (HCC) [C34.9*03/11/2024 Encounter Status:Closed by TOSIN TREVIZO on 06/11/24 Normal [facility] Office Visiton 06-11-2024 Follow-up visit [id number] Luther Flores 1955 M Date Provider Department Center 06/11/2024 Jack-HORACE MARTINEZ [facility] [address] Family History Problem Relation Age of Onset Heart disease Father No Known Problems Mother Family Status - Relation Status Age at Father Mother Alive Brother Alive Level of Service:49443 [place] OFFICE/OUTPATIENT ESTABLISHED MOD MDM 30 MIN Reason for Visit and Comments: Hospital Follow-up [832] Chest Pain [104495] Normal [facility] Progress Noteon 06-11-2024 Progress Note [facility] - [place] [address] [facility] [address] Dept: [phone] Dept Visit type: Established : 1955 Reason [...] 10 mg daily which he plans to belt picker today. Reviewed lipid panel drawn yesterday with patient, educated on lifestyle interventions to improve triglycerides, LDL and HDL. Continue atorvastatin 80 mg daily and ezetimibe 10 mg daily. Advised patient he needs to be on daily therapy for 3 months before we can repeat lipid panel. PAD (peripheral artery disease) - Patient following with [facility]. R > L DP pulses. Is to schedule further assessment of LLE. Continue ASA 81 mg daily, atorvastatin 80 mg daily, and ezetimibe 10 mg daily. Received records from [facility] following our visit today (scanned in media tab). Assessment and plan below: Follow up in about 1 month (around 07/11/2024). Subjective HPI Sharonda Flores is a 68 year old male, known to Dr. Tineo, with PMHx CAD (s/p several PCI, most recently 2011 - LAD, LCx, distal RCA with known KNOT CUTTER D2), preserved LVEF (65%), HTN, HLD, PAD (follows with vascular at [facility]), prior tobacco use, pulmonary nodules, adenocarcinoma s/p RUL lobectomy 01/2024 (follows with pulmonology), and psoriasis. He contacted our office yesterday after presenting to [place] ER over the weekend with right sided [...] bilateral leg weakness. He was seen by [facility] 06/07/24 and states they found a [...] abdominal pain, (more content not included)... Normal [facility] 36on 06-10-2024 36 Spoke with patient a nd scheduled appt tomorrow Gerri Martinez APRN [facility] 36 Chart and message reviewed. Agree with sooner follow up. I have openings tomorrow if patient is available. Normal [facility] 36 Spoke with patient a nd [...] Martinez APRN to review and advise. Normal [facility] 36 Chart reviewed, BETH Tineo 01/16/24. History of several PCI, 2011, doing well at time of visit and PAD following vascular at [facility]. PCP visit today, patient went to [facility] [...] Marinelli to obtain [facility] notes. Normal [facility] CNOVon 06-10-2024 CNOV Office Visit (FAMPWS ) -- SHARONDA FLORES ([id number]) 1955 M [place] Date Time Provider Department 06/10/24 7:00 AM FORTUNATO JURADO During your visit today, we recorded the following information about you: Fortunato Jurado APRN.CNP 06/11/2024 9:47 AM Addendum Chief Complaint Patient presents with: Follow Up: 3 month ER f/u Monday, minor chest pain, left arm pain, bad taste. Went to [facility] HPI Sharonda Flores is a 68 year old male who presents here today for Chronic Medical Conditions. Patient is here for 3-month follow-up. Taking medications as prescribed with the exception of Zetia. Not sure if he has it at home. Following with pulmonology/oncology for history of malignant neoplasm of the right upper lobe of the lung. Following with vascular at [place] for PAD. Mentions that he went to the emergency room yesterday for right-sided chest pain. Went to [facility]. Troponin is negative. CMP,CBC normal. Chest x-ray [...] was exerting himself/walking. He is calling his clinical informaticist today for follow up. Today, he is [...] I73.9 -Continue with plan to follow-up with [facility]. 4. Coronary artery disease involving kaw coronary artery of kaw heart without angina pectoris - ICD9: 414.01, ICD10: I25.10 -No current complaints of chest pain. He will make an appointment to follow-up with his clinical informaticist. I provided some reassurance that some of his symptoms were at rest. Exam seems to be more musculoskeletal origin. Discussed back to the ER for chest pain or syncope. Fortunato Jurado APRN.RENEE RTO in 3 months, sooner if needed. This note was partly generated using Sc[employer]X voice recognition dictation and may contain some misspelled or inaccurate words missed on review. Fortunato Jurado APRN.CNP 06/10/2024 7:07 AM Signed [facility] Get cholesterol panel Call clinical informaticist to follow up Continue to follow with [...] left arm pain, bad taste. Went to [facility] Primary Visit Diagnosis:Mixed hyperlipidemia [E78.2] Other Visit Diagnoses:Essential hypertension [I10] PAD (peripheral artery disease) (HCC) [I73.9] Coronary artery disease involving kaw coronary artery of kaw heart without angina pectoris [I25.10] Order(s):ezetimibe (ZETIA) 10 mg tabletTake 1 tablet by mouth once daily.Disp: 90 tabletRfl: 3 LIPID PANEL BASIC [SQLIPB] Order #: [id number] FUTURE Prescriptions as of 06/11/2024 - ezetimibe [...] is c (more content not included)... Normal [facility] Lipid 1996 panelon 4 Cholesterol [Mass/Vol] 257 mg/dL High <200 Cl [facility] Comment on above: Order Comment: Speci men Type: BLOOD SPECIMENOrdering Facility: [facility] Address: [address] [place] [address] Result Comment: <200 mg/dL, Desirable 200-239 mg/dL, Borderline high >239 mg/dL, High Performed By: #### 2 4331-1 ####[facility] LABIA [id number] [place] [address] [place] Cholesterol in HDL [Mass/Vol] 30 mg/dL Low >39 [facility] Comment on above: Order Comment: Speci men Type: BLOOD SPECIMENOrdering Facility: [facility] Address: [address] [place] [address] Result Comment: 40-5 9 mg/dL, Acceptable >59 mg/dL, High: Negative risk factor for coronary heart disease <40 mg/dL, Low: Positive risk factor for coronary heart disease Performed By: #### 2 4331-1 ####[facility] LABIA [id number] [place] [address] [place] Cholesterol in LDL [Mass/Vol] 184 mg/dL High <100 [facility] Comment on above: Order Comment: Speci men Type: BLOOD SPECIMENOrdering Facility: [facility] Address: [address] [place] [address] Result Comment: <100 mg/dL, Optimal 100-129 mg/dL, Near optimal/above optimal 130-159 mg/dL, Borderline high 160-189 mg/dL, High >189 mg/dL, Very high Secondary prevention optimal LDL Cholesterol levels are recommended to be < 70 mg/dL Performed By: #### 2 4331-1 ####[facility] LABCLIA [id number] [address] [place] Cholesterol in LDL/Cholesterol in HDL [Mass ratio] 6.13 {ratio} High <2.54 [facility] Comment on above: Order Comment: Speci men Type: BLOOD SPECIMENOrdering Facility: [facility] Address: [address] [place] [address] Result Comment: Lizbeth saraviace: 1. National Cholesterol Education Program ATP III Guideline At-A-Glance Quick Desk Reference: National Heart, Lung, and Blood [place]. National Institutes of Health. 2001: NIH Publication No. 01-3305. 2. An International Atherosclerosis Society position paper: global recommendations for the management of dyslipidemia: executive summary, Atherosclerosis. 2014: 232(2):410-413. Performed By: #### 2 4331-1 ####[facility] LABCLIA [id number] [place] [address] [place] Cholesterol in VLDL [Mass/Vol] 43 mg/dL High <30 [facility] Comment on above: Order Comment: Speci men Type: BLOOD SPECIMENOrdering Facility: [facility] Address: [address] [place] [address] Performed By: #### 2 4331-1 ####[facility] LABCLIA [id number] [place] [address] [place] Cholesterol non HDL [Mass/Vol] 227 mg/dL High <130 [facility] Comment on above: Order Comment: Speci men Type: BLOOD SPECIMENOrdering Facility: [facility] Address: [address] [place] [address] Result Comment: <130 mg/dL, Optimal 130-159 mg/dL, Near optimal/above optimal 160-189 mg/dL, Borderline high 190-219 mg/dL, High >219 mg/dL, Very high Secondary prevention optimal non HDL Cholesterol levels are recommended to be <100 mg/dL Performed By: #### 2 4331-1 ####[facility] LABCLIA [id number] [place] [address] [place] Cholesterol.total/Stephanie sterol in HDL [Mass ratio] 8.57 {ratio} High <5.10 [facility] Comment on above: Order Comment: Speci men Type: BLOOD SPECIMENOrdering Facility: [facility] Address: [address] [place] [address] Performed By: #### 2 4331-1 ####[facility] LABCLIA [id number] [address] STATES OF [facility] FASTING TIME 12 hrs Normal [facility] Comment on above: Order Comment: Speci men Type: BLOOD SPECIMENOrdering Facility: [facility] Address: [address] [place] [address] Performed By: #### 2 4331-1 ####[facility] LABCLIA [id number] [place] [address] [place] Triglyceride [Mass/Vol] 217 mg/dL High <150 C [facility] Comment on above: Order Comment: Speci men Type: BLOOD SPECIMENOrdering Facility: [facility] Address: [address] [place] [address] Result Comment: <150 mg/dL, Normal 150-199 mg/dL, Borderline high 200-499 mg/dL, High >499 mg/dL, Very high Performed By: #### 2 4331-1 ####[facility] LABCLIA [id number] [address] [place] 36on 06-08-2024 36 S: Patient spoke wit h [facility] nurse regarding meds refill s and an [...] sx's 4 days ago. [facility]ses [facility] [place]. R: Referred to the ER for eval. [...] [3] not present now Protocols used: Shoulder [id number] Normal [facility] XR Foot - right AP and Later al and obliqueon 03-11-2024 IMPRESSION: No acute radiographic abnormalities seen in the right foot. High Lead Yarder: BETTY Transcribe Date/Time: Mar 11 2024 8:51A Dictated by : JAIRO CARMONA MD This examination was interpreted and the report reviewed and electronically signed by: JAIRO CARMONA MD on Mar 11 2024 8:55AM [facility] DIVISION OF RADIOLOGY * * *Final Report* [...] swelling. DIVISION OF RADIOLOGY Provider, Candido mckeon [place] - 03/11/2024 * * *Final Report* * [...] radiographic abnormalities seen in the right foot. High Lead Yarder: PSCB Transcribe Date/Time: Mar 11 2024 8:51A Dictated by : JAIRO CARMONA MD This examination was interpreted and the report reviewed and electronically signed by: JAIRO CARMONA MD on Mar 11 2024 8:55AM [facility] Radiology Study observation (narrative) Ramez almodovar [facility] XR Foot - right AP and Later al and obliqueOrdered By: Ccf Provider on 03-11-2024 [facility] (AGVASACC) -- SHARONDA FLORES ([id number]) 1955 [place] Date Time Provider Department 03/04/24 NADEGE TADEO During your visit today, we recorded the following information about you: Conrado Yao MA 03/04/2024 9:[address] Analy Dumont (Oncologist) office phone [phone] fax [phone] [facility] Faxed referral for right lung cancer, 02/29/24 office encounter, 02/09/24 operative report AND pathology on 03/04/24 Allergies As of Date: 03/04/2024 Noted Allergy Reaction PENICILLINS 05/23/2008 4 - Hives Date Reviewed: 02/29/2024 Reviewed by: Dorita Yoon LPN - Fully Assessed Reason for Visit: Referral Information [2832] Prescriptions as of 03/04/2024 - traMADol (ULTRAM) [...] USE DISORDER [F17.200] 06/03/2008 SPRAIN SHOULDER/ARM NOS [[id number]] 06/03/2008 JOINT PAIN-ANKLE [M25.579] 06/03/2008 HERPES SIMPLEX NOS [B00.9] 06/03/2008 MIXED HYPERLIPIDEMIA [E78.2] 07/02/2008 SCREENING MAL NEOP-COLON [Z12.11] 10/08/2008 BENIGN NEOPLASM LG BOWEL [D12.6] 10/08/2008 Coronary artery disease involving kaw lacey* Essential hypertension [I10] Thrombocytopenia (HCC) [D69.6] Tinnitus of both ears [H93.13] Psoriasis [L40.9] Abdominal aortic aneurysm (AAA) without rupture*06/08/2021 At risk for sleep apnea [Z91.89] 11/29/[address] lung nodules on CT [R91.8] 11/09/2023 Lung nodule [R91.1] 12/15/2023 S/P lobectomy of lung [Z90.2] 02/09/2024 Encounter Status:Closed by BISHNU YAO on 03/04/24 [facility] CNPN Telephone (AGVASACC) -- SHARONDA FLORES ([id number]) 1955 M [facility] Date Time Provider Department 03/04/24 CHARLENE AMAYA [...] giving improvement, but not resolving. Contact information: [phone] How call resolved:Encouraged patient to continue regimen, [...] USE DISORDER [F17.200] 06/03/2008 SPRAIN SHOULDER/ARM NOS [[id number]] 06/03/2008 JOINT PAIN-ANKLE [M25.579] 06/03/2008 HERPES SIMPLEX NOS [B00.9] 06/03/2008 MIXED HYPERLIPIDEMIA [E78.2] 07/02/2008 SCREENING MAL NEOP-COLON [Z12.11] 10/08/2008 BENIGN NEOPLASM LG BOWEL [D12.6] 10/08/2008 Coronary artery disease involving kaw lacey* Essential hypertension [I10] Thrombocytopenia (HCC) [D69.6] Tinnitus of both ears [H93.13] Psoriasis [L40.9] Abdominal aortic aneurysm (AAA) without rupture*06/08/2021 At risk for sleep apnea [Z91.89] 11/29/[address] nodules on CT [R91.8] 11/09/2023 Lung nodule [R91.1] 12/15/2023 S/P lobectomy of lung [Z90.2] 02/09/2024 Encounter Status:Closed by CHARLENE AMAYA on 03/04/24 [facility] CNOVon 02-29-2024 CNOV Office Visit (NORMA VITALE) -- SHARONDA FLORES ([id number]) 1955 M [facility] Date Time Provider Department 02/29/24 10:00 AM [facility] During your visit today, we recorded the following information about you: Pulse Respiration Blood pressure Weight 68/minute 16/minute 112/64 76.3 kg Height 1.651 m Shaylee Woods, PROCESS SUPERVISOR.PAPER PROCESSING MACHINE HELPER 02/29/2024 12:56 PM Signed HPI: Per Dr. [...] colon No date: Coronary artery disease involving kaw coronary artery of kaw heart without angina pectoris Comment: Dr. Tineo No date: Essential hypertension No date: History of tobacco use (more content not included)... Normal [facility] XR CHEST 1V FRONTAL PORTon 0 02-29-2024 [...] right hemithorax. A follow-up exam is recommended. High Lead Yarder: PSCB Transcribe Date/Time: Mar 03 2024 8:39A Dictated by : LAINE STILL MD This examination was interpreted and the report reviewed and electronically signed by: LAINE STILL MD on Mar 03 2024 8:40AM EST [id number] Normal [facility] CNPNon 02-22-2024 CNPN Telephone (AGVASSpiderOak) -- SHARONDA FLORES ([id number]) 1955 M [place] Date Time Provider Department [...] medication. Patient states he had to call [facility] who ran tests and he checked-out fine. Patient states he is experiencing right-sided pain of his chest. He was provided refills of oxycodone by [facility] however the pain is starting to feel like it did before. Patient states it feels like a fire cracker. Stoney Talavera LPN February 22, 2024 10:18 AM Stoney Talavera LPN 02/26/2024 7:30 AM Signed See Telephone Encounter from Dr. Francois's OPERATOR PREFINISH, 02/22/2024 10:36AM. Stoney Talavera LPN February 26, [...] USE DISORDER [F17.200] 06/03/2008 SPRAIN SHOULDER/ARM NOS [[id number]] 06/03/2008 JOINT PAIN-ANKLE [M25.579] 06/03/2008 HERPES SIMPLEX NOS [B00.9] 06/03/2008 MIXED HYPERLIPIDEMIA [E78.2] 07/02/2008 SCREENING MAL NEOP-COLON [Z12.11] 10/08/2008 BENIGN NEOPLASM LG BOWEL [D12.6] 10/08/2008 Coronary artery disease involving kaw lacey* Essential hypertension [I10] Thrombocytopenia (HCC) [D69.6] Tinnitus of both ears [H93.13] Psoriasis [L40.9] Abdominal aortic aneurysm (AAA) without rupture*06/08/2021 At risk for sleep apnea [Z91.89] 11/29/[address] lung nodules on CT [R91.8] 11/09/2023 Lung nodule [R91.1] 12/15/2023 S/P lobectomy of lung [Z90.2] 02/09/2024 Encounter Status:Closed by STONEY TALAVERA on 02/26/24 [facility] CNPN Telephone (AGVASACC) -- SHARONDA FLORES ([id number]) 1955 M [place] Date Time Provider Department [...] tried calling him at 02/22/24 9:27am twice ([phone]), it seems like someone answers but no one speaks. 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 Charlene Amaya APRN.PAPER PROCESSING MACHINE HELPER 02/22/2024 10:36 AM Signed HEART and VASCULAR [...] worst. Was dc'd with oxycodone. Contact information: [phone] How call resolved: Instructed to start tylenol 1000mg QID and start flexiril 10mg TID PRN for pain and continue to use oxy prn. Scripts sent to pharmacy Required follow up: Has f/u on 02/28 SIGNATURE: Charlene Amaya APRN.PAPER PROCESSING MACHINE HELPER DATE of SERVICE: 02/22/2024 TIME of SERVICE: [...] USE DISORDER [F17.200] 06/03/2008 SPRAIN SHOULDER/ARM NOS [[id number]] 06/03/2008 JOINT PAIN-ANKLE [M25.579] 06/03/2008 HERPES SIMPLEX NOS [B00.9] 06/03/2008 MIXED HYPERLIPIDEMIA [E78.2] 07/02/2008 SCREENING MAL NEOP-COLON [Z12.11] 10/08/2008 BENIGN NEOPLASM LG BOWEL [D12.6] 10/08/2008 Coronary artery disease involving kaw lacey* Essential hypertension [I10] Thrombocytopenia (HCC) [D69.6] [...] by CHARLENE AMAYA on 02/22/24 [facility] CNDSon 02-14-2024 [facility] HNO ID: [id number] Author: NADEGE TADEO MD Service: General Surgery [...] you become constipated, you may use any jlex-seo-urteywa treatment such as Milk of Magnesia, Sennakot, Prune Juice, Suppositories, etc. in addition to the stool softener/fiber supplement Use acetaminophen (Tylenol) as recommended on the bottle You should use an ubvc-wsw-dheirze stool softener (Docusate sodium) and/or a fiber [...] When: In 2 weeks Nadege Tadeo MD [phone] [facility] [address] PCP Requested Referral Additional Provider to Provider Information: No notes on file Treatment Team: Attending Provider: Nadege Tadeo MD Transitions of Care Critical Issues: None LABS AND PROCEDURES PENDING AT DISCHARGE: No pending results. FOLLOW-UP APPOINTMENTS ALREADY SCHEDULED WITH A [facility] PROVIDER: Future Appointments Date Time Provider Department Center 03/11/2024 7:00 AM Tima Tello MD [facility] ALLERGIES Allergen Reactions Penicillins Hives DISCHARGE MEDICATION: [...] resting com (more content not included)... Normal [facility] XR CHEST 1V FRONTALon 2023 XR CHEST [...] significant additional findings. IMPRESSION: Stable postoperative findings. High Lead Yarder: [facility] Transcribe Date/Time: Feb 14 2024 6:36A Dictated by : FREDI VALLE MD This examination was interpreted and the report reviewed and electronically signed by: FREDI VALLE MD on Feb 14 2024 6:39AM EST [id number] Normal [facility] XR CHEST 1V FRONTALon 2023 XR CHEST [...] removed right chest tube. Otherwise, stable appearance. High Lead Yarder: [facility] Transcribe Date/Time: Feb 14 2024 6:55A Dictated by : ОЛЬГА BARR MD This examination was interpreted and the report reviewed and electronically signed by: ОЛЬГА BARR MD on Feb 14 2024 6:57AM EST [id number] Normal [facility] XR CHEST 1V FRONTAL * * *Final [...] presumed postoperative. Correlate with subsequent chest radiographs. High Lead Yarder: [facility] Transcribe Date/Time: Feb 13 2024 6:55A Dictated by : ELIJAH GONSALEZ MD This examination was interpreted and the report reviewed and electronically signed by: ELIJAH GONSALEZ MD on Feb 13 2024 7:01AM EST [id number] Normal [facility] XR CHEST 1V FRONTALon 2023 XR CHEST [...] cardiomediastinal silhouette. IMPRESSION: No acute radiographic abnormality. High Lead Yarder: [facility] Transcribe Date/Time: Feb 12 2024 10:54A Dictated by : LAZARO PRABHAKAR MD This examination was interpreted and the report reviewed and electronically signed by: LAZARO PRABHAKAR MD on Feb 12 2024 11:02AM EST [id number] Normal [facility] XR CHEST 1V FRONTALon 2023 XR CHEST [...] Other: None. IMPRESSION: No acute radiographic abnormality. High Lead Yarder: BETTY Transcribe Date/Time: Feb 11 2024 6:57A Dictated by : ELIJAH GNOSALEZ MD This examination was interpreted and the report reviewed and electronically signed by: ELIJAH GONSALEZ MD on Feb 11 2024 6:59AM EST [id number] Normal [facility] Basic metabolic 2000 panelon 02-10-2024 Anion gap [Moles/Vol] 10 mmol/L Normal 8-15 [facility] Comment on above: Order Comment: Speci men Type: BLOOD SPECIMENOrdering Facility: [facility] Address: [address] [place] [address] Performed By: #### 2 4321-2 ####[facility] LABORATORYCLIA [id number] [place] [address] [place] Calcium [Mass/Vol] 7.5 mg/dL Low 8.5-10.2 [facility] Comment on above: Order Comment: Speci men Type: BLOOD SPECIMENOrdering Facility: [facility] Address: [address] [place] [address] Performed By: #### 2 4321-2 ####[facility] LABORATORYCLIA [id number] [place] [address] [place] Chloride [Moles/Vol] 103 mmol/L Normal 98-107 [facility] Comment on above: Order Comment: Speci men Type: BLOOD SPECIMENOrdering Facility: [facility] Address: [address] [place] [address] Performed By: #### 2 4321-2 ####[facility] LABORATORYCLIA [id number] [place] [address] [place] CO2 [Moles/Vol] 25 mmol/L Normal 22-30 [facility] Comment on above: Order Comment: Speci men Type: BLOOD SPECIMENOrdering Facility: [facility] Address: [address] [place] [address] Performed By: #### 2 4321-2 ####[facility]ITALCL[facility] [id number] [address] STATES OF [facility] Creatinine [Mass/Vol] 1.01 mg/dL Normal 0.73-1.22 [facility] Comment on above: Order Comment: Vernon sterling Type: BLOOD SPECIMENOrdering Facility: [facility] Address: [address] [place] [address] Performed By: #### 2 4321-2 ####[facility] LABORATORYCLIA [id number] [address] Creatinine and Glomerular filtration rate.predicted panel (S/P/Bld) 81 mL/min/1.73m??? Normal >=60 [facility] Comment on above: Order Comment: Vernon sterling Type: BLOOD SPECIMENOrdering Facility: [facility] Address: [address] [place] [address] Result Comment: Piedad mated Glomerular Filtration Rate [...] actual GFR. Performed By: #### 2 4321-2 ####[facility] LABORATORYCLIA [id number] [address] [place] Glucose [Mass/Vol] 114 mg/dL High 74-99 [facility] Comment on above: Order Comment: Vernon sterling Type: BLOOD SPECIMENOrdering Facility: [facility] Address: [address] [place] [address] Result Comment: The [place] Diabetes Association (ADA) provides guidance for cutoff [...] Standards of Medical Care in Diabetes 2016, [place] [employer]. Diabetes Care. 2016.39(Suppl 1). Performed By: #### 2 4321-2 ####[facility] LABORATORYCLIA [id number] [address] STATES OF [facility] Potassium [Moles/Vol] 3.7 mmol/L Normal 3.7-5.1 [facility] Comment on above: Order Comment: Speci men Type: BLOOD SPECIMENOrdering Facility: [facility] Address: [address] [place] [address] Performed By: #### 2 4321-2 ####[facility] LABORATORYCLIA [id number] [address] [place] Sodium [Moles/Vol] 138 mmol/L Normal 136-144 [facility] Comment on above: Order Comment: Speci asher Type: BLOOD SPECIMENOrdering Facility: [facility] Address: [address] [place] [address] Performed By: #### 2 4321-2 ####[facility] LABORATORYCLIA [id number] [address] [place] Urea nitrogen [Mass/Vol] 18 mg/dL Normal 9-24 [facility] Comment on above: Order Comment: Speci men Type: BLOOD SPECIMENOrdering Facility: [facility] Address: [address] [place] [address] Performed By: #### 2 4321-2 ####[facility] LABORATORYCLIA [id number] [place] [address] [place] Anion gap [Moles/Vol] 12 mmol/L Normal 8-15 [facility] Comment on above: Order Comment: Speci men Type: BLOOD SPECIMENOrdering Facility: [facility] Address: [address] [place] [address] Performed By: #### 2 4321-2 ####[facility] LABORATORYCLIA [id number] [place] [address] [place] Calcium [Mass/Vol] 8.6 mg/dL Normal 8.5-10.2 [facility] Comment on above: Order Comment: Speci men Type: BLOOD SPECIMENOrdering Facility: [facility] Address: [address] [place] [address] Performed By: #### 2 4321-2 ####[facility] LABORATORYCLIA [id number] [place] [address] [place] Chloride [Moles/Vol] 104 mmol/L Normal 98-107 [facility] Comment on above: Order Comment: Speci men Type: BLOOD SPECIMENOrdering Facility: [facility] Address: [address] [place] [address] Performed By: #### 2 4321-2 ####[facility] LABORATORYCLIA [id number] [address] STATES OF [facility] CO2 [Moles/Vol] 23 mmol/L Normal 22-30 [facility] Comment on above: Order Comment: Speci men Type: BLOOD SPECIMENOrdering Facility: [facility] Address: [address] [place] [address] Performed By: #### 2 4321-2 ####[facility] LABORATORYCLIA [id number] [address] [place] Creatinine [Mass/Vol] 0.86 mg/dL Normal 0.73-1.22 [facility] Comment on above: Order Comment: Speci men Type: BLOOD SPECIMENOrdering Facility: [facility] Address: [address] [place] [address] Performed By: #### 2 4321-2 ####[facility] LABORATORYCLIA [id number] [address] Creatinine and Glomerular filtration rate.predicted panel (S/P/Bld) 94 mL/min/1.73m??? Normal >=60 [facility] Comment on above: Order Comment: Speci men Type: BLOOD SPECIMENOrdering Facility: [facility] Address: [address] [place] [address] Result Comment: Piedad mated Glomerular Filtration Rate [...] actual GFR. Performed By: #### 2 4321-2 ####[facility] LABORATORYCLIA [id number] [place] [address] [place] Glucose [Mass/Vol] 136 mg/dL High 74-99 [facility] Comment on above: Order Comment: Vernon sterling Type: BLOOD SPECIMENOrdering Facility: [facility] Address: [address] [place] [address] Result Comment: The [place] Diabetes Association (ADA) provides guidance for cutoff [...] Standards of Medical Care in Diabetes 2016, [place] Diabetes Association. Diabetes Care. 2016.39(Suppl 1). Performed By: #### 2 4321-2 ####[facility] LABORATORYCLIA [id number] [place] [address] [place] Potassium [Moles/Vol] 4.4 mmol/L Normal 3.7-5.1 [facility] Comment on above: Order Comment: Vernon [facility] Type: BLOOD SPECIMENOrdering Facility: [facility] Address: [address] [place] [address] Performed By: #### 2 4321-2 ####[facility] LABORATORYCLIA [id number] [address] STATES OF [facility] Sodium [Moles/Vol] 139 mmol/L Normal 136-144 [facility] Comment on above: Order Comment: Speci men Type: BLOOD SPECIMENOrdering Facility: [facility] Address: [address] [place] [address] Performed By: #### 2 4321-2 ####[facility] LABORATORYCLIA [id number] [address] [place] Urea nitrogen [Mass/Vol] 18 mg/dL Normal 9-24 [facility] Comment on above: Order Comment: Speci men Type: BLOOD SPECIMENOrdering Facility: [facility] Address: [address] [place] [address] Performed By: #### 2 4321-2 ####[facility] LABORATORYCLIA [id number] [address] [place] CBC panel Auto (Bld)on 02-09 Erythrocyte distribution width (RBC) [Ratio] 12.9 % Normal 11.5-15.0 [facility] Comment on above: Order Comment: Speci men Type: BLOOD SPECIMENOrdering Facility: [facility] Address: [address] [place] [address] Performed By: #### 5 8410-2 ####[facility] LABORATORYCLIA [id number] [address] STATES OF [facility] Hematocrit (Bld) [Volume fraction] 38.8 % Low 39.0-51.0 [facility] Comment on above: Order Comment: Speci men Type: BLOOD SPECIMENOrdering Facility: [facility] Address: [address] [place] [address] Performed By: #### 5 8410-2 ####[facility] LABORATORYCLIA [id number] [address] [place] Hemoglobin (Bld) [Mass/Vol] 12.3 g/dL Low 13.0-17.0 [facility] Comment on above: Order Comment: Speci men Type: BLOOD SPECIMENOrdering Facility: [facility] Address: [address] [place], [place] [address] Performed By: #### 5 8410-2 ####[facility] LABORATORYCLIA [id number] [address] MCH (RBC) [Entitic mass] 29.3 pg Normal 26.0-34.0 [facility] Comment on above: Order Comment: Speci men Type: BLOOD SPECIMENOrdering Facility: [facility] Address: [address] [place] [address] Performed By: #### 5 8410-2 ####[facility] LABORATORYCLIA [id number] [address] OF [facility] MCHC (RBC) [Mass/Vol] 31.7 g/dL Normal 30.5-36.0 [facility] Comment on above: Order Comment: Speci men Type: BLOOD SPECIMENOrdering Facility: [facility] Address: [address] [place] [address] Performed By: #### 5 8410-2 ####[facility] LABORATORYCLIA [id number] [address] MCV (RBC) [Entitic vol] 92.4 fL Normal 80.0-100.0 [facility] Comment on above: Order Comment: Speci men Type: BLOOD SPECIMENOrdering Facility: [facility] Address: [address] [place] [address] Performed By: #### 5 8410-2 ####[facility] LABORATORYCLIA [id number] [address] Nucleated RBC (Bld) [#/Vol] 10*3/uL Normal <0.01 [facility] Comment on above: Order Comment: Speci men Type: BLOOD SPECIMENOrdering Facility: [facility] Address: [address] [place] [address] Performed By: #### 5 8410-2 ####[facility] LABORATORYCLIA [id number] [address] Platelet mean volume (Bld) [Entitic vol] 12.6 fL Normal 9.0-12.7 [facility] Comment on above: Order Comment: Speci men Type: BLOOD SPECIMENOrdering Facility: [facility] Address: [address] [place] [address] Performed By: #### 5 8410-2 ####[facility] LABORATORYCLIA [id number] [address] OF [facility] Platelets (Bld) [#/Vol] 129 10*3/uL Low 150-400 [facility] Comment on above: Order Comment: Speci men Type: BLOOD SPECIMENOrdering Facility: [facility] Address: [address] [place] [address] Performed By: #### 5 8410-2 ####[facility] LABORATORYCLIA [id number] [address] OF [facility] RBC (Bld) [#/Vol] 4.20 10*6/uL Normal 4.20-6.00 [facility] Comment on above: Order Comment: Speci men Type: BLOOD SPECIMENOrdering Facility: [facility] Address: [address] [place] [address] Performed By: #### 5 8410-2 ####[facility] LABORATORYCLIA [id number] [address] WBC (Bld) [#/Vol] 11.45 10*3/uL High 3.70-11.00 [facility] Comment on above: Order Comment: Speci men Type: BLOOD SPECIMENOrdering Facility: [facility] Address: [address] [place] [address] Performed By: #### 5 8410-2 ####[facility] LABORATORYCLIA [id number] [address] Erythrocyte distribution width (RBC) [Ratio] 12.8 % Normal 11.5-15.0 [facility] Comment on above: Order Comment: Speci men Type: BLOOD SPECIMENOrdering Facility: [facility] Address: [address] [place] [address] Performed By: #### 5 8410-2 ####[facility] LABORATORYCLIA [id number] [address] Hematocrit (Bld) [Volume fraction] 40.9 % Normal 39.0-51.0 [facility] Comment on above: Order Comment: Speci men Type: BLOOD SPECIMENOrdering Facility: [facility] Address: [address] [place] [address] Performed By: #### 5 8410-2 ####[facility] LABORATORYCLIA [id number] [address] OF [facility] Hemoglobin (Bld) [Mass/Vol] 13.2 g/dL Normal 13.0-17.0 [facility] Comment on above: Order Comment: Speci men Type: BLOOD SPECIMENOrdering Facility: [facility] Address: [address] [place] [address] Performed By: #### 5 8410-2 ####[facility] LABORATORYCLIA [id number] [address] MCH (RBC) [Entitic mass] 29.1 pg Normal 26.0-34.0 [facility] Comment on above: Order Comment: Speci men Type: BLOOD SPECIMENOrdering Facility: [facility] Address: [address] [place] [address] Performed By: #### 5 8410-2 ####[facility] LABORATORYCLIA [id number] [address] [place] MCHC (RBC) [Mass/Vol] 32.3 g/dL Normal 30.5-36.0 [facility] Comment on above: Order Comment: Speci men Type: BLOOD SPECIMENOrdering Facility: [facility] Address: [address] [place] [address] Performed By: #### 5 8410-2 ####[facility] LABORATORYCLIA [id number] [address] MCV (RBC) [Entitic vol] 90.3 fL Normal 80.0-100.0 [facility] Comment on above: Order Comment: Speci men Type: BLOOD SPECIMENOrdering Facility: [facility] Address: [address] [place] [address] Performed By: #### 5 8410-2 ####[facility] LABORATORYCLIA [id number] [address] [place] Nucleated RBC (Bld) [#/Vol] 10*3/uL Normal <0.01 [facility] Comment on above: Order Comment: Speci men Type: BLOOD SPECIMENOrdering Facility: [facility] Address: [address] [place] [address] Performed By: #### 5 8410-2 ####[facility] LABORATORYCLIA [id number] [address] [place] Platelet mean volume (Bld) [Entitic vol] 11.4 fL Normal 9.0-12.7 [facility] Comment on above: Order Comment: Speci men Type: BLOOD SPECIMENOrdering Facility: [facility] Address: [address] [place] [address] Performed By: #### 5 8410-2 ####[facility] LABORATORYCLIA [id number] [address] [place] Platelets (Bld) [#/Vol] 141 10*3/uL Low 150-400 [facility] Comment on above: Order Comment: Speci men Type: BLOOD SPECIMENOrdering Facility: [facility] Address: [address] [place] [address] Result Comment: No c lot detected. Performed By: #### 5 8410-2 ####[facility] LABORATORYCLIA [id number] [address] [place] RBC (Bld) [#/Vol] 4.53 10*6/uL Normal 4.20-6.00 [facility] Comment on above: Order Comment: Speci men Type: BLOOD SPECIMENOrdering Facility: [facility] Address: [address] [place] [address] Performed By: #### 5 8410-2 ####[facility] LABORATORYCLIA [id number] [place] [address] [place] WBC (Bld) [#/Vol] 9.92 10*3/uL Normal 3.70-11.00 [facility] Comment on above: Order Comment: Speci men Type: BLOOD SPECIMENOrdering Facility: [facility] Address: [address] [place], [place] [address] Performed By: #### 5 8410-2 ####[facility] LABORATORYCLIA [id number] [place] [address] [place] XR CHEST 1V [...] Other: None. IMPRESSION: No acute radiographic abnormality. High Lead Yarder: BETTY Transcribe Date/Time: Feb 10 2024 6:27A Dictated by : ELIJAH GONSALEZ MD This examination was interpreted and the report reviewed and electronically signed by: ELIJAH GONSALEZ MD on Feb 10 2024 6:30AM EST [id number] Normal [facility] ALK (D5F3)on 02-09-2024 ALK INTERPRETATION Equivocal Abnormal [facility] Comment on above: Order Comment: Speci men Type: TISSUE SPECIMENOrdering Facility: [facility] Address: [address] [place], [place] [address] Performed By: #### S ####[facility] LABORATORYCLIA [id number] [place] [address] [place]#### [id number], [id number] ####[facility] LABCLIA [id number] [place] [address] [place]#### ROS1, RET, TOPTO, GNDT1, FSHLNG ####[facility] ILLUMINA LIMSCLIA [id number] [place] [address] [place] BIOMARKER METHOD Immunohistochemistry was performed on formalin fixed paraffin-embedded tissue using the rabbit monoclonal antibody [id number] ([employer], [place], [place]) followed by ultrasensitive bright field detection (Optiview with amplification [[employer], [place], [place]]). [facility] Comment on above: Order Comment: Speci men Type: TISSUE SPECIMENOrdering Facility: [facility] Address: [address] [place] [address] Performed By: #### S ####[facility]PITALIA [id number] [place] [address] [place]#### [id number], [id number] ####[facility] LABCLIA [id number] [place] [address] [place]#### ROS1, RET, TOPTO, GNDT1, FSHLNG ####[facility] LIMSCLIA [id number] [place] [address] [place] BLOCK ID [id number] [facility] Comment on above: Order Comment: Speci men Type: TISSUE SPECIMENOrdering Facility: [facility] Address: [address] [place] [address] Performed By: #### S ####[facility] LABORATORYCLIA [id number] [place] [address] [place]#### [id number], [id number] ####[facility] LABCLIA [id number] [place] [address] [place]#### ROS1, RET, TOPTO, GNDT1, FSHLNG ####[facility] LIMSCLIA [id number] [place] [address] [place] [facility] CASE NUMBER [id number] [id number] Normal [facility] Comment on above: Order Comment: Speci men Type: TISSUE SPECIMENOrdering Facility: [facility] Address: [address] [place] [address] Performed By: #### S ####[facility] LABORATORYCLIA [id number] [place] [address] [place]#### [id number], [id number] ####[facility] LABCLIA [id number] [place] [address] [place]#### ROS1, RET, TOPTO, GNDT1, FSHLNG ####[facility] LIMSCLIA [id number] [address] [place] ANES POSTPROC EVALon 024 ANES POSTPROC EVAL HNO ID: [id number] Author: INGRIS POSEY MD Service: Anesthesiology Author Type: Anesthesiologist Type: Anesthesia Postprocedure Evaluation Filed: 02/09/2024 15:28 Note Text: POST ANESTHESIA EVALUATION NOTE : 1955 Procedure Summary Date: 02/09/24 Room / Location: [place] / [place] Anesthesia Start: 905 Anesthesia Stop: 1515 [...] February 09, 2024 TIME: 3:27 PM CSN: [id number] Normal [facility] ANES PRE-OPon 02-09-2024 ANES PRE-OP HNO ID: [id number] Author: INGRIS POSYE MD Service: Anesthesiology Author Type: Anesthesiologist Type: Anesthesia Preprocedure Evaluation Filed: 02/09/2024 07:51 Note Text: ANESTHESIOLOGY DAY OF SURGERY NOTE : 1955 Procedure Information Date/Time: 02/09/24 0800 Procedures: BRONCHOSCOPY FLEXIBLE ADULT (Bronchus) THORACOSCOPY SURGICAL W/DIAGNOSTIC WEDGE RESECTION FOLLOWED BY ANATOMIC LUNG RESECTION (Right: Lung lobe upper) THORACOTOMY ADULT (Right: Chest) Location: [place] [address] [place] [address] OR Surgeons: Nadege Tadeo MD Estimated body [...] and consent discussed: yes. Patient / Responsible Libertarian agrees to proceed: yes Patient / Surrogate [...] February 09, 2024 TIME: 7:50 AM CSN: [id number] Normal [facility] Basic metabolic 2000 panelon 02-09-2024 Anion gap [Moles/Vol] 12 mmol/L Normal 8-15 [facility] Comment on above: Order Comment: Speci men Type: BLOOD SPECIMENOrdering Facility: [facility] Address: [address] [place] [address] Performed By: #### 2 4321-2 ####[facility] LABORATORYCLIA [id number] [place] [address] [place] Calcium [Mass/Vol] 8.5 mg/dL Normal 8.5-10.2 [facility] Comment on above: Order Comment: Speci men Type: BLOOD SPECIMENOrdering Facility: [facility] Address: [facility] [place] [address] Performed By: #### 2 4321-2 ####[facility] LABORATORYCLIA [id number] [place] [address] [place] Chloride [Moles/Vol] 106 mmol/L Normal 98-107 [facility] Comment on above: Order Comment: Speci men Type: BLOOD SPECIMENOrdering Facility: [facility] Address: [address] [place] [address] Performed By: #### 2 4321-2 ####[facility] LABORATORYCLIA [id number] [place] [address] [place] CO2 [Moles/Vol] 21 mmol/L Low 22-30 [facility] Comment on above: Order Comment: Speci men Type: BLOOD SPECIMENOrdering Facility: [facility] Address: [address] [place] [address] Performed By: #### 2 4321-2 ####[facility] LABORATORYCLIA [id number] [place] [address] [place] Creatinine [Mass/Vol] 0.87 mg/dL Normal 0.73-1.22 [facility] Comment on above: Order Comment: Speci men Type: BLOOD SPECIMENOrdering Facility: [facility] Address: [address] [place] [address] Performed By: #### 2 4321-2 ####[facility] LABORATORYCLIA [id number] [address] [place] Creatinine and Glomerular filtration rate.predicted panel (S/P/Bld) 94 mL/min/1.73m??? Normal >=60 [facility] Comment on above: Order Comment: Speci men Type: BLOOD SPECIMENOrdering Facility: [facility] Address: [address] [place] [address] Result Comment: Piedad mated Glomerular Filtration Rate [...] actual GFR. Performed By: #### 2 4321-2 ####[facility] LABORATORYCLIA [id number] [place] [address] [place] Glucose [Mass/Vol] 163 mg/dL High 74-99 [facility] Comment on above: Order Comment: Speci men Type: BLOOD SPECIMENOrdering Facility: [facility] Address: [address] [place] [address] Result Comment: The [place] Diabetes Association (ADA) provides guidance for cutoff [...] Standards of Medical Care in Diabetes 2016, [place] Diabetes Association. Diabetes Care. 2016.39(Suppl 1). Performed By: #### 2 4321-2 ####[facility] LABORATORYCLIA [id number] [place] [address] [place] Potassium [Moles/Vol] 4.2 mmol/L Normal 3.7-5.1 [facility] Comment on above: Order Comment: Speci men Type: BLOOD SPECIMENOrdering Facility: [facility] Address: [address] [place] [id number] Performed By: #### 2 4321-2 ####[facility] LABORATORYCLIA [id number] [place] [id number] [place] Sodium [Moles/Vol] 139 mmol/L Normal 136-144 [facility] Comment on above: Order Comment: Speci men Type: BLOOD SPECIMENOrdering Facility: [facility] Address: [address] [place] [address] Performed By: #### 2 4321-2 ####[facility] LABORATORYCLIA [id number] [place] [id number] [facility] Urea nitrogen [Mass/Vol] 20 mg/dL Normal 9-24 [facility] Comment on above: Order Comment: Speci men Type: BLOOD SPECIMENOrdering Facility: [facility] Address: [address] [place] [address] Performed By: #### 2 4321-2 ####[facility] LABORATORYCLIA [id number] [address] CBC panel Auto (Bld)on 02-08 Erythrocyte distribution width (RBC) [Ratio] 12.6 % Normal 11.5-15.0 [facility] Comment on above: Order Comment: Speci men Type: BLOOD SPECIMENOrdering Facility: [facility] Address: [address] [place] [address] Performed By: #### 5 8410-2 ####[facility] LABORATORYCLIA [id number] [address] Hematocrit (Bld) [Volume fraction] 42.2 % Normal 39.0-51.0 [facility] Comment on above: Order Comment: Speci men Type: BLOOD SPECIMENOrdering Facility: [facility] Address: [address] [place] [address] Performed By: #### 5 8410-2 ####[facility] LABORATORYCLIA [id number] [address] Hemoglobin (Bld) [Mass/Vol] 13.6 g/dL Normal 13.0-17.0 [facility] Comment on above: Order Comment: Speci men Type: BLOOD SPECIMENOrdering Facility: [facility] Address: [address] [place] [address] Performed By: #### 5 8410-2 ####[facility] LABORATORYCLIA [id number] [place] [address] [place] MCH (RBC) [Entitic mass] 28.8 pg Normal 26.0-34.0 [facility] Comment on above: Order Comment: Speci men Type: BLOOD SPECIMENOrdering Facility: [facility] Address: [address] [place] [address] Performed By: #### 5 8410-2 ####[facility] LABORATORYCLIA [id number] [address] STATES OF [facility] MCHC (RBC) [Mass/Vol] 32.2 g/dL Normal 30.5-36.0 [facility] Comment on above: Order Comment: Speci men Type: BLOOD SPECIMENOrdering Facility: [facility] Address: [address] [place] [address] Performed By: #### 5 8410-2 ####[facility] LABORATORYCLIA [id number] [address] OF [facility] MCV (RBC) [Entitic vol] 89.4 fL Normal 80.0-100.0 [facility] Comment on above: Order Comment: Speci men Type: BLOOD SPECIMENOrdering Facility: [facility] Address: [address] [place] [address] Performed By: #### 5 8410-2 ####[facility] LABORATORYCLIA [id number] [address] Nucleated RBC (Bld) [#/Vol] 10*3/uL Normal <0.01 [facility] Comment on above: Order Comment: Speci men Type: BLOOD SPECIMENOrdering Facility: [facility] Address: [address] [place] [address] Performed By: #### 5 8410-2 ####[facility] LABORATORYCLIA [id number] [address] Platelet mean volume (Bld) [Entitic vol] 11.2 fL Normal 9.0-12.7 [facility] Comment on above: Order Comment: Speci men Type: BLOOD SPECIMENOrdering Facility: [facility] Address: [address] [place] [address] Performed By: #### 5 8410-2 ####[facility] LABORATORYCLIA [id number] [address] Platelets (Bld) [#/Vol] 144 10*3/uL Low 150-400 [facility] Comment on above: Order Comment: Speci men Type: BLOOD SPECIMENOrdering Facility: [facility] Address: [address] [place] [address] Performed By: #### 5 8410-2 ####[facility] LABORATORYCLIA [id number] [address] RBC (Bld) [#/Vol] 4.72 10*6/uL Normal 4.20-6.00 [facility] Comment on above: Order Comment: Speci men Type: BLOOD SPECIMENOrdering Facility: [facility] Address: [address] [place] [address] Performed By: #### 5 8410-2 ####[facility] LABORATORYCLIA [id number] [address] WBC (Bld) [#/Vol] 12.55 10*3/uL High 3.70-11.00 [facility] Comment on above: Order Comment: Speci men Type: BLOOD SPECIMENOrdering Facility: [facility] Address: [address] [place] [address] Performed By: #### 5 8410-2 ####[facility] LABORATORYCLIA [id number] [address] ECG COMPLETEon 02-09-2024 ECG COMPLETE Ventricular Rate : 7 9 BPM Atrial Rate : 79 BPM P-R Interval : 132 ms QRS Duration : 78 ms Q-T Interval : 394 ms QTC Calculation(Bazett) : 451 ms Calculated P [place] : 62 degrees Calculated R [place] : 11 degrees Calculated T [place] : 12 degrees NORMAL SINUS RHYTHM INFERIOR INFARCT , AGE UNDETERMINED ABNORMAL ECG NO PREVIOUS ECGS AVAILABLE Confirmed by MD LUCILLE, JAC ([id number]) on 02/11/2024 11:25:43 PM NAME : SHARONDA FLORES PID : [id number] : 1955 Gender : Male Race : ORD : [id number] Procedure Date : Feb 09 2024 15:39:23 Edit Date : Feb 11 2024 23:25:48 Diagnosis: NORMAL SINUS RHYTHM INFERIOR INFARCT , AGE UNDETERMINED ABNORMAL ECG NO PREVIOUS ECGS AVAILABLE Confirmed by MD ADKINS YASSAR ([id number]) on 02/11/2024 11:25:43 PM Test Reason : Post-OP Location : [address] : [place] [address] Overread By : MD ADKINS YASSAR Edited By : MD ADKINS YASSAR Referred By : NADEGE TADEO Acquired by : LOYD [place] Normal [facility] FISH FOR ALK (2P23) FFPET NS CLCon 02-09-2024 FISH FOR ALK (2P23) FFPET NSCLC Normal [facility] Comment on above: Order Comment: Speci men Type: TISSUE SPECIMENOrdering Facility: [facility] Address: [address] [place] [address] Result Comment: FISH for ALK (2p23) FFPET NSCLC Laboratory Accession Number: [id number] Case: [id number] Block/Part ID: C16 Sample Type: FFPET Sample [...] et al. Anaplastic Lymphoma Kinase Inhibition in Gag-Qutws-Eilc Lung Cancer. N Engl J Med 2010;363:5124-4339. 2) Kristin NI, Eric PT, Ekta JENKINS, et al. Molecular Testing Guideline for the Selection of Lung Cancer Patients for EGFR and ALK Tyrosine Kinase Inhibitors: Guideline from the College of [place] Pathologists, Internatonal Association for the Study of Lung Cancer, and Association for Molecular Pathology. J Mol Diagn 2013;15:415-53. 3) NCCN Clinical Practice Guidelines in Oncology: Non-Small Cell Lung Cancer, National Comprehensive Cancer Network, Inc. Available at NCCN.org. 4) Iris SJ, Lance Cordova, Jeff S, et al. Unique clinicopathologic features characterize ALK-rearranged lung adenocarcinoma in the western population. Clin Cancer Res 2009;15:7852-9986. LIMITATIONS: This test will not identify all [...] and its performance characteristics determined by the [facility]'s [facility] Pathology [facility] Medicine [place] ([facility]). It has not been cleared or approved by the FDA. [facility] is regulated under CLIA as qualified to perform high- complexity testing. This test is used for clinical purposes. It should not be regarded as investigational or for research. [place] [address]. CLIA Number: [id number] As reviewed by Marilyn Best MD Performed By: #### S ####[facility] LABORATORYCLIA [id number] [place] [address] [place]#### [id number], [id number] ####[facility] LABCLIA [id number] [place] [address] [place]#### ROS1, RET, TOPTO, GNDT1, FSHLNG ####[facility] LIMSCLIA [id number] [place] [address] [place] FISH FOR RET (10Q11.21)on FISH FOR RET (10Q11.21) Normal [facility] Comment on above: Order Comment: Speci men Type: TISSUE SPECIMENOrdering Facility: [facility] Address: [address], [place] [address] Result Comment: FISH for RET (10q11.21) Laboratory Accession Number: [id number] Case: [id number] Block/Part ID: C16 Sample Type: FFPET Sample [...] specific to the RET gene at 10q11.21 ([place], [place], [place]) was used in this [...] and its performance characteristics determined by the [facility]'s [facility] Pathology and Laboratory Medicine [place] ([facility]). It has not been cleared or approved by the FDA. [facility] is regulated under CLIA as qualified to perform high- complexity testing. This test is used for clinical purposes. It should not be regarded as investigational or for research. Interpretation performed at [facility], [address] [place] [address]. CLIA Number: [id number] As reviewed by Jazmyn Lamar MD, PhD Performed By: #### S ####[facility] LABORATORYCLIA [id number] [address] [place]#### [id number], [id number] ####[facility] LABCLIA [id number] [address]#### ROS1, RET, TOPTO, GNDT1, FSHLNG ####[facility] LIMSCLIA [id number] [address] [place] HISTORY PHYSICALon HISTORY PHYSICAL HNO ID: [id number] Author: NADEGE TADEO MD Service: General Surgery [...] February 09, 2024 TIME: 7:31 AM Normal [facility] MOLECULAR GENETIC DATAon FISH PROBE (LIMS) ROS1 Normal [facility] Comment on above: Order Comment: Speci men Type: TISSUE SPECIMENOrdering Facility: [facility] Address: [address] [place] [address] Performed By: #### S ####[facility] LABORATORYCLIA [id number] [address] [place]#### [id number], [id number] ####[facility] LABCLIA [id number] [place] [address] [place]#### ROS1, RET, TOPTO, GNDT1, FSHLNG ####[facility] LIMSCLIA [id number] [address] [address] [place] FISH PROBE (LIMS) RET Normal [facility] Comment on above: Order Comment: Speci men Type: TISSUE SPECIMENOrdering Facility: [facility] Address: [address] [place] [address] Performed By: #### S ####[facility] LABORATORYCLIA [id number] [place] [address] [place]#### [id number], [id number] ####[facility] LABCLIA [id number] [place] [address] [place]#### ROS1, RET, TOPTO, GNDT1, FSHLNG ####[facility] LIMSCLIA [id number] [place] [address] [place] FISH PROBE (LIMS) ALK Normal [facility] Comment on above: Order Comment: Speci men Type: TISSUE SPECIMENOrdering Facility: [facility] Address: [address] [place] [address] Performed By: #### S ####[facility] LABORATORYCLIA [id number] [place] [address] [place]#### [id number], [id number] ####[facility] LABCLIA [id number] [place] [address] [place]#### ROS1, RET, TOPTO, GNDT1, FSHLNG ####[facility] LIMSCLIA [id number] [place] [id number] [place] FISH RESULT (LIMS) Negative [facility] Comment on above: Order Comment: Speci men Type: TISSUE SPECIMENOrdering Facility: [facility] Address: [address] [place] [address] Performed By: #### S ####[facility] LABORATORYCLIA [id number] [place] [address] [place]#### [id number], [id number] ####[facility] LABCLIA [id number] [address] [place]#### ROS1, RET, TOPTO, GNDT1, FSHLNG ####[facility] LIMSCLIA [id number] [address] STATES OF [facility] OPERATIVE NOon 02-09-2024 OPERATIVE NO HNO ID: [id number] Author: NADEGE TADEO MD Service: Cardiac Surgery Author Type: Physician Type: Operative Report Filed: 02/09/2024 15:17 Note Text: [facility] CARDIO-THORACICSURGERY OPERATIVE/PROCEDURE REPORT LOG ID: [id number] SURGERY/PROCEDURE DATE: 02/09/2024 INCISION/PROCEDURE START TIME: 9:53 AM INCISION CLOSE/PROCEDURE END TIME: 3:04 PM SURGEON(S)/PROCEDURALIST(S ) AND RN MATERNITY(S): Surgeon(s) and Role: * Nadege Tadeo MD - Primary * Leon Flower MD - Resident - Assisting Physician Animal Keeper: Corry Burleson PA-C; Cathi [place] PA-C ANESTHESIA: [...] of Procedure: tolerated well, no immediate complications Catheters/Dewitt/Wires Counts: Final Counts Correct Estimated Blood Loss: 300 mL Specimens: See Specimens below from [employer] Log Extubated in OR: Yes Destination: ICU SURGEON/RN MATERNITY PARTICIPATION: The primary surgeon/proceduralist performed the procedure with assistance. and No qualified Resident/Fellow was available. Manager Civil: Opened: Surgeon present Closed: Indirect supervision Alteration/removal of tissue: Surgeon present Dissected Tissue: Surgeon present Second Assist: Opened: Surgeon present Closed: Indirect supervision Alteration/removal of tissue: Surgeon present Dissected Tissue: Surgeon present SPECIMENS: ID Type Source Tests Collected by Time A : RIGHT UPPER LOBE WEDGE RESECTION Tissue Lung, Right, Wedge Resection SURGICAL PATHOLOGY Nadege Tadeo MD 02/09/2024 10:26 AM B : [...] 3:14 PM AGE: [age] year old Normal [facility] PD-L1 22C3on 02-09-2024 AP BIOMARKER DISCLAIMER Normal [facility] Comment on above: Order Comment: Speci men Type: TISSUE SPECIMENOrdering Facility: [facility] Address: [address] [place] [address] Result Comment: Kathy palomo Developed Test (LDT) Disclaimer: Performance characteristics of immunohistochemical, immunofluorescent and chromogenic in-situ hybridization tests have been determined by the performing laboratory within [facility]???s [facility] Pathology and Laboratory Medicine Department ([facility], [facility], [facility], [facility], [facility], [facility], or [facility]) in a manner consistent with CLIA requirements. One or more of these tests have not been cleared or approved by the FDA. [facility] is regulated under CLIA as qualified to perform high-complexity testing. These tests are used for clinical purposes. They should not be regarded as investigational or for research. Positive and negative controls stain appropriately. Performed By: #### S ####[facility] [id number] [place] [address] [place]#### [id number], [id number] ####[facility] LABCLIA [id number] [place] [address] [place]#### ROS1, RET, TOPTO, GNDT1, FSHLNG ####[facility] LIMSCLIA [id number] [place] [address] [place] AP BLOCK ID [id number] Normal [facility] Comment on above: Order Comment: Speci men Type: TISSUE SPECIMENOrdering Facility: [facility] Address: [address] [place] [address] Performed By: #### S ####[facility] [id number] [place] [address] [place]#### [id number], [id number] ####[facility] LABCLIA [id number] [place] [address] [place]#### ROS1, RET, TOPTO, GNDT1, FSHLNG ####[facility] LIMSCLIA [id number] [place] [address] [place] BIOMARKER INTERPRETATION COMMENT AND REFERENCE RANGE Normal [facility] Comment on above: Order Comment: Speci men Type: TISSUE SPECIMENOrdering Facility: [facility] Address: [address] [place] [address] Result Comment: Inte rpretation standard: TPS: The [...] Product label for additional information. KEYTRUDA - (https://www.Agari.com/prescribing-information/) LIBTAYO - (https://www.Scifiniti/sites/default/files/Libtayo_FPI.pdf ) Performed By: #### S ####[facility] LABORATORYCLIA [id number] [address] [place]#### [id number], [id number] ####[facility] LABCLIA [id number] [address]#### ROS1, RET, TOPTO, GNDT1, FSHLNG ####[facility] LIMSCLIA [id number] [address] Result Comment: Refe rence range for [...] Kinase Inhibitors. Guideline From the College of [place] Pathologists, the International Association for the Study of Lung Cancer, and the Association for Molecular Pathology. Arch Pathol Lab Med. 2018 Mar;142(3):321-346. doi: 10.5858/arpa.2196-1254-LL. Epub 2017Aug 21. PMID: 77425739. 2. Anna DICKSON., Tabatha ROMERO., Amee Cordova., et al. An International Interpretation Study Using the ALK IHC Antibody D5F3 and a Sensitive Detection Kit Demonstrates High Concordance between ALK IHC and ALK FISH and between Evaluators. J Thorac Oncol. 2014 November;9(5):631-8. doi: 10.1097/JTO.1429889018956917. PMID: 41990082; PMCID: LRE4615671. 3. Rod Grimes., Andre Judge, Leatha Ivan, et al. A Sensitive ALK Immunohistochemistry Administrative Professional Diagnostic Test Identifies Patients Eligible for Treatment with Crizotinib. J Thorac Oncol. 2017 November;12(5):804-813. doi: 10.1016/j.jtho.2017.01.020. Epub 2016Aug 28. PMID: 27901483. BIOMARKER METHOD Immunohistochemistry was performed on formalin fixed paraffin-embedded tissue using the mouse monoclonal antibody 22C3 ([employer]; [place], [place]) followed by ultrasensitive bright field detection (Optiview with amplification [[employer], [place]]). [facility] Comment on above: Order Comment: Speci men Type: TISSUE SPECIMENOrdering Facility: [facility] Address: [address] [place] [address] Performed By: #### S ####[facility] LABORATORYCLIA [id number] [place] [address] [place]#### [id number], [id number] ####[facility] LABCLIA [id number] [place] [address] [place]#### ROS1, RET, TOPTO, GNDT1, FSHLNG ####[facility] LIMSCLIA [id number] [place] [address] [place] [facility] CASE NUMBER [id number] [facility] Comment on above: Order Comment: Speci men Type: TISSUE SPECIMENOrdering Facility: [facility] Address: [address] [place] [address] Performed By: #### S ####[facility] LABORATORYCLIA [id number] [place] [address] [place]#### [id number], [id number] ####[facility] LABCLIA [id number] [place] [address] [place]#### ROS1, RET, TOPTO, GNDT1, FSHLNG ####[facility] LIMSCLIA [id number] [place] [address] [place] FINAL PERFORMING LAB Normal [facility] Comment on above: Order Comment: Speci men Type: TISSUE SPECIMENOrdering Facility: [facility] Address: [address] [place] [address] Result Comment: Diag nostic interpretation performed at [facility], [address] [place] [address] CLIA: [id number] Market Risk Analyst: Bjorn Zuleta MD Electronically signed out by: Elver Whitaker MD Performed By: #### S ####[facility] LABORATORYCLIA [id number] [place] [address] [place]#### [id number], [id number] ####[facility] LABCLIA [id number] [place] [address] [place]#### ROS1, RET, TOPTO, GNDT1, FSHLNG ####[facility] LIMSCLIA [id number] [place] [address] [place] FIXATIVE Not Provided Normal [facility] Comment on above: Order Comment: Speci men Type: TISSUE SPECIMENOrdering Facility: [facility] Address: [address] [place] [address] Performed By: #### S ####[facility] LABORATORYCLIA [id number] [place] [address] [place]#### [id number], [id number] ####[facility] LABCLIA [id number] [place] [address] [place]#### ROS1, RET, TOPTO, GNDT1, FSHLNG ####[facility] LIMSCLIA [id number] [place] [address] [place] PD-L1 22C3 TPS (LUNG) INTERPRETATION Positive Abnormal [facility] Comment on above: Order Comment: Speci men Type: TISSUE SPECIMENOrdering Facility: [facility] Address: [address] [place] [address] Performed By: #### S ####[facility] LABORATORYCLIA [id number] [place] [address] [place]#### [id number], [id number] ####[facility] LABCLIA [id number] [place] [address] [place]#### ROS1, RET, TOPTO, GNDT1, FSHLNG ####[facility] LIMSCLIA [id number] [address] [place] PD-L1 TUMOR TYPE Other (See Comment) Normal [facility] Comment on above: Order Comment: Speci men Type: TISSUE SPECIMENOrdering Facility: [facility] Address: [address] [place] [address] Performed By: #### S ####[facility] LABORATORYCLIA [id number] [place] [address] [place]#### [id number], [id number] ####[facility] LABCLIA [id number] [place] [address] [place]#### ROS1, RET, TOPTO, GNDT1, FSHLNG ####[facility] LIMSCLIA [id number] [place] [address] [place] TUMOR PROPORTION SCORE (TPS) 60 Normal [facility] Comment on above: Order Comment: Speci men Type: TISSUE SPECIMENOrdering Facility: [facility] Address: [address] [place] [address] Performed By: #### S ####[facility] LABORATORYCLIA [id number] [place] [address] [place]#### [id number], [id number] ####[facility] LABCLIA [id number] [place] [address] [place]#### ROS1, RET, TOPTO, GNDT1, FSHLNG ####[facility] LIMSCLIA [id number] [address] [place] ROS1 GENE REARRANGEMENTon FISH FOR ROS1 (6Q22) Normal [facility] Comment on above: Order Comment: Speci men Type: TISSUE SPECIMENOrdering Facility: [facility] Address: [address] [place] [address] Result Comment: FISH for ROS1(6q22) Laboratory Accession Number: [id number] Case: [id number] Block/Part ID: C16 Sample Type: FFPET Sample [...] and its performance characteristics determined by the [facility]'s [facility] Pathology and Laboratory Medicine [place] ([facility]). It has not been cleared or approved by the FDA. [facility] is regulated under CLIA as qualified to perform high- complexity testing. This test is used for clinical purposes. It should not be regarded as investigational or for research. Interpretation performed at [facility], [address] [place] [address]. CLIA Number: [id number] As reviewed by Jazmyn Lamar MD, PhD Performed By: #### S ####[facility] LABORATORYCLIA [id number] [place] [address] [place]#### [id number], [id number] ####[facility] LABCLIA [id number] [place] [address] [place]#### ROS1, RET, TOPTO, GNDT1, FSHLNG ####[facility] LIMSCLIA [id number] [place] [id number] [place] SURGICAL PATHOLOGYon 024 BLOCK FOR ADDITIONAL BIOMARKERS/MOLECULAR STUDIES C16 [facility] Comment on above: Order Comment: Speci men Type: TISSUE SPECIMENOrdering Facility: [facility] Address: [address] [place] [address] Performed By: #### S ####[facility] LABORATORYCLIA [id number] [place], [place] [address] [place] [address] [place]#### [id number], [id number] ####[facility] LABCLIA [id number] [address] [place]#### ROS1, RET, TOPTO, GNDT1, FSHLNG ####[facility] LIMSCLIA [id number] [address] [place] CASE REPORT Normal [facility] Comment on above: Order Comment: Speci men Type: TISSUE SPECIMENOrdering Facility: [facility] Address: [address] [place] [address] Result Comment: Surg ica Pathology Report Case: [id number] Authorizing Provider: Nadege Tadeo MD Collected: 02/09/2024 10:26 AM Ordering Location: [facility] Received: 02/09/2024 10:32 AM Pathologist: Mahogany Ascencio DO Intraop: David Marie MD Specimens: A) - Lung, Right, Wedge Resection, RIGHT UPPER LOBE WEDGE RESECTION B) - Lymph Node, level 9 C) - Lung, Right, Lobectomy, Right Upper Lobe D) - Lymph Node, right level 4 E) - Lymph Node, right level 7 Performed By: #### S ####[facility] LABORATORYCLIA [id number] [place], [place] [id number] [place] [address] [place]#### [id number], [id number] ####[facility] LABCLIA [id number] [address]#### ROS1, RET, TOPTO, GNDT1, FSHLNG ####[facility] LIMSCLIA [id number] [address] [place] CLINICAL HISTORY Normal [facility] Comment on above: Order Comment: Speci men Type: TISSUE SPECIMENOrdering Facility: [facility] Address: [address] [place] [address] Result Comment: Pre- op diagnosis: Nodule of right lung [R91.1] Performed By: #### S ####[facility] LABORATORYCLIA [id number] [address] [place]#### [id number], [id number] ####[facility] LABCLIA [id number] [address] [place]#### ROS1, RET, TOPTO, GNDT1, FSHLNG ####[facility] LIMSCLIA [id number] [address] STATES [facility] DIAGNOSIS COMMENT Normal [facility] Comment on above: Order Comment: Speci men Type: TISSUE SPECIMENOrdering Facility: [facility] Address: [address] [place] [address] Result Comment: A. T he tumor in part A shows extensive frozen artifact which limits the morphologic evaluation as well as the evaluation for size,vascular space and pleural invasion. C. Targeted oncology profile (TOP), ALK, PDL1, ROS1 and RET testing will be performed A, C. Dr. Erica Roberts has reviewed this case and agrees with the above diagnosis. Performed By: #### S ####[facility] LABORATORYCLIA [id number] [place] [address] [place]#### [id number], [id number] ####[facility] LABCLIA [id number] [address] [place]#### ROS1, RET, TOPTO, GNDT1, FSHLNG ####[facility] LIMSCLIA [id number] [address] [place] FINAL DIAGNOSIS Normal [facility] Comment on above: Order Comment: Speci men Type: TISSUE SPECIMENOrdering Facility: [facility] Address: [address] [place] [address] Result Comment: A. L brionna, right upper [...] for carcinoma (0/1). Performed By: #### S ####[facility] LABORATORYCLIA [id number] [place] [address] [place]#### [id number], [id number] ####[facility] LABCLIA [id number] [place] [address] [place]#### ROS1, RET, TOPTO, GNDT1, FSHLNG ####[facility] LIMSCLIA [id number] [place] [address] [place] FINAL PERFORMING LAB Normal [facility] Comment on above: Order Comment: Speci men Type: TISSUE SPECIMENOrdering Facility: [facility] Address: [address] [place] [address] Result Comment: Diag nostic interpretation performed at [facility], [address] [place] [address] CLIA# [id number] Market Risk Analyst: David Marie M.D. Performed By: #### S ####[facility] LABORATORYCLIA [id number] [place] [address] [place]#### [id number], [id number] ####[facility] LABCLIA [id number] [address] [place]#### ROS1, RET, TOPTO, GNDT1, FSHLNG ####[facility] LIMSCLIA [id number] [address] [place] GROSS DESCRIPTION Normal [facility] Comment on above: Order Comment: Speci men Type: TISSUE SPECIMENOrdering Facility: [facility] Address: [address] [place] [address] Result Comment: A. L brionna, Right, Wedge [...] wedge is entirely submitted as follows: FS A1-construction representative sections perpendicular to margin A2-remainder of specimen, perpendicular to margin Gross examination performed at [facility], [address] [place] [address] CLIA#[id number] [facility] February 09, 2024 8:44 AM B. Lymph [...] lymph nodes ranging in size 0.3-1.0 cm. Industrial Psychology Professor sections are submitted as follows: C1-bronchial vascular margins C2-resection margin, perpendicular C3-roughened sales representative consultant possible wedge resection site C4-C9 construction representative sections of firm area of small nodules F70-cajhirvk emphysema C11 uninvolved parenchyma F22-ftbw area of parenchymal line of resection C [...] in 1 cassette. Gross examination performed at [facility], [address] [place] [address] CLIA#[id number] [facility] February 12, 2024 10:11 AM Performed By: #### S ####[facility] LABORATORYCLIA [id number] [place] [address] [place]#### [id number], [id number] ####[facility] LABCLIA [id number] [place] [address] [place]#### ROS1, RET, TOPTO, GNDT1, FSHLNG ####[facility] LIMSCLIA [id number] [place] [address] [place] INTRAOPERATIVE DIAGNOSIS Normal [facility] Comment on above: Order Comment: Speci men Type: TISSUE SPECIMENOrdering Facility: [facility] Address: [address] [place] [address] Result Comment: A. L brionna, Right, Wedge Resection FS A1-right upper lobe wedge biopsy: Adenocarcinoma. (Dr. Marie and Dr. Ibarra) Intraoperative examination performed at [facility], [address] [place] [address] CLIA# [id number] Performed By: #### S ####[facility] LABORATORYCLIA [id number] [place] [address] [place]#### [id number], [id number] ####[facility] LABCLIA [id number] [place] [address] [place]#### ROS1, RET, TOPTO, GNDT1, FSHLNG ####[facility] LIMSCLIA [id number] [place] [address] [place] SYNOPTIC REPORT LUNG Normal [facility] Comment on above: Order Comment: Speci men Type: TISSUE SPECIMENOrdering Facility: [facility] Address: [address] [place] [address] Result Comment: LUNG : RESECTION - All [...] pN Category: pN0 Performed By: #### S ####[facility] LABORATORYCLIA [id number] [place], [place] [address] [place] [address]#### [id number], [id number] ####[facility] LABCLIA [id number] [address] [place]#### ROS1, RET, TOPTO, GNDT1, FSHLNG ####[facility] LIMSCLIA [id number] [address] [place] TARGETED ONCOLOGY PANEL NEXT GENERATION SEQUENCING OTHERon 02-09-2024 TARGETED ONCOLOGY PANEL NEXT GENERATION SEQUENCING OTHER Normal [facility] Comment on above: Order Comment: Speci men Type: TISSUE SPECIMENOrdering Facility: [facility] Address: [address] [place] [address] Result Comment: [facility] Targeted Oncology Panel Laboratory Accession Number: [id number] Case #: [id number] Block #: C16 Sample Type: FFPET % [...] genes are reported. 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 TP53 encodes for tumor protein p53, a contract clerk automobile factor involved in DNA damage pathway, cell cycle arrest and apoptosis (PMID: 96151596). Germline mutations occur in cancer predisposition syndrome and Li-Fraumeni syndrome (PMID: 95934167). Somatic missense and loss of function mutations are common in every tumor type and some impart resistance to chemotherapy (PMID: 4247457). Variants of uncertain significance detected: None Detected Regions with coverage <100x: CTNNB1:NM_001904.3:Exon3 chr3:[id number] Range: 76-80; PIK3CA:NM_006218.2:Exon2 chr3:[id number] Range: 96-99; PIK3CA:NM_006218.2:Exon2 chr3:457007910-604913392 Range: 98-99; PIK3CA:NM_006218.2:Exon2 chr3:[id number] Range: 93-99; PIK3CA:NM_006218.2:Exon2 chr3:[id number] Range: 97-99; PIK3CA:NM_006218.2:Exon2 chr3:259517338-717458452 Range: 98-99; PIK3CA:NM_006218.2:Exon2 chr3:[id number] Range: 98-99; PIK3CA:NM_006218.2:Exon2 chr3:062417854-869932628 Range: 96-99; PIK3CA:NM_006218.2:Exon2 chr3:[id number] Range: 97-99; PIK3CA:NM_006218.2:Exon2 chr3:475798392-807986712 Range: 95-99; FGFR3:NM_000142.4:Exon16 chr4:[id number] Range: 89-94; METHODOLOGY: Extracted nucleic acid from the specimen, both DNA and RNA, were subjected to separate targeted amplification reactions, using AmpliSeq custom primers designed by [employer] ([employer], [place], [place]). Hotspots and selected fusions in gene regions listed below were sequenced using Illumina ([place], [place]) 2x150 paired-end cycle chemistry. A customized [...] content not included)... Performed By: #### S ####[facility] [id number] [address]#### [id number], [id number] ####[facility] LABCLIA [id number] [place] [address] [place]#### ROS1, RET, TOPTO, GNDT1, FSHLNG ####[facility] LIMSCLIA [id number] [address] [place] XR CHEST 1V [...] with a right chest tube in place. High Lead Yarder: BETTY Transcribe Date/Time: Feb 09 2024 7:40P Dictated by : LAINE STILL MD This examination was interpreted and the report reviewed and electronically signed by: LAINE STILL MD on Feb 09 2024 7:41PM EST [id number] Normal [facility] CBC panel Auto (Bld)on 01-28 Erythrocyte distribution width (RBC) [Ratio] 12.6 % Normal 11.5-15.0 [facility] Comment on above: Order Comment: Speci men Type: BLOOD SPECIMENOrdering Facility: [facility] Address: [address] [place] [address] Performed By: #### 5 8410-2 ####[facility] LABORATORYCLIA [id number] [address] OF [facility] Hematocrit (Bld) [Volume fraction] 44.5 % Normal 39.0-51.0 [facility] Comment on above: Order Comment: Speci men Type: BLOOD SPECIMENOrdering Facility: [facility] Address: [address] [place] [address] Performed By: #### 5 8410-2 ####[facility] LABORATORYCLIA [id number] [address] OF [facility] Hemoglobin (Bld) [Mass/Vol] 14.2 g/dL Normal 13.0-17.0 [facility] Comment on above: Order Comment: Speci men Type: BLOOD SPECIMENOrdering Facility: [facility] Address: [address] [place] [address] Performed By: #### 5 8410-2 ####[facility] LABORATORYCLIA [id number] [address] MCH (RBC) [Entitic mass] 28.9 pg Normal 26.0-34.0 [facility] Comment on above: Order Comment: Speci men Type: BLOOD SPECIMENOrdering Facility: [facility] Address: [address] [place] [address] Performed By: #### 5 8410-2 ####[facility] LABORATORYCLIA [id number] [address] [place] MCHC (RBC) [Mass/Vol] 31.9 g/dL Normal 30.5-36.0 [facility] Comment on above: Order Comment: Speci men Type: BLOOD SPECIMENOrdering Facility: [facility] Address: [address] [place] [address] Performed By: #### 5 8410-2 ####[facility] LABORATORYCLIA [id number] [address] MCV (RBC) [Entitic vol] 90.4 fL Normal 80.0-100.0 [facility] Comment on above: Order Comment: Speci men Type: BLOOD SPECIMENOrdering Facility: [facility] Address: [address] [place] [address] Performed By: #### 5 8410-2 ####[facility] LABORATORYCLIA [id number] [address] [place] Nucleated RBC (Bld) [#/Vol] 10*3/uL Normal <0.01 [facility] Comment on above: Order Comment: Speci men Type: BLOOD SPECIMENOrdering Facility: [facility] Address: [address] [place] [address] Performed By: #### 5 8410-2 ####[facility] LABORATORYCLIA [id number] [address] [place] Platelet mean volume (Bld) [Entitic vol] 12.2 fL Normal 9.0-12.7 [facility] Comment on above: Order Comment: Speci men Type: BLOOD SPECIMENOrdering Facility: [facility] Address: [address] [place] [address] Performed By: #### 5 8410-2 ####[facility] LABORATORYCLIA [id number] [address] [place] Platelets (Bld) [#/Vol] 144 10*3/uL Low 150-400 [facility] Comment on above: Order Comment: Speci men Type: BLOOD SPECIMENOrdering Facility: [facility] Address: [address] [place] [address] Performed By: #### 5 8410-2 ####[facility] LABORATORYCLIA [id number] [address] [place] RBC (Bld) [#/Vol] 4.92 10*6/uL Normal 4.20-6.00 [facility] Comment on above: Order Comment: Speci men Type: BLOOD SPECIMENOrdering Facility: [facility] Address: [address] [place] [address] Performed By: #### 5 8410-2 ####[facility] LABORATORYCLIA [id number] [address] [place] WBC (Bld) [#/Vol] 5.07 10*3/uL Normal 3.70-11.00 [facility] Comment on above: Order Comment: Speci men Type: BLOOD SPECIMENOrdering Facility: [facility] Address: [address] [place] [address] Performed By: #### 5 8410-2 ####[facility] LABORATORYCLIA [id number] [place] [address] [facility] CNOVon 01-29-2024 CNOV Office Visit ([facility]) -- SHARONDA FLORES ([id number]) 1955 M [place] Date Time Provider Department [...] were provided (more content not included)... Normal [facility] Comprehensive metabolic 2000 panelon 01-29-2024 Albumin [Mass/Vol] 4.4 g/dL Normal 3.9-4.9 [facility] Comment on above: Order Comment: Speci men Type: BLOOD SPECIMENOrdering Facility: [facility] Address: [address] [place] [address] Performed By: #### 2 4323-8 ####[facility] LABORATORYCLIA [id number] [address] STATES OF [facility] ALP [Catalytic activity/Vol] 78 U/L Normal 38-113 [facility] Comment on above: Order Comment: Speci men Type: BLOOD SPECIMENOrdering Facility: [facility] Address: [address] [place] [address] Performed By: #### 2 4323-8 ####[facility] LABORATORYCLIA [id number] [address] [place] ALT With P-5'-P [Catalytic activity/Vol] 18 U/L Normal 10-54 [facility] Comment on above: Order Comment: Speci men Type: BLOOD SPECIMENOrdering Facility: [facility] Address: [address] [place] [address] Performed By: #### 2 4323-8 ####[facility] LABORATORYCLIA [id number] [place] [address] [place] Anion gap [Moles/Vol] 13 mmol/L Normal 8-15 [facility] Comment on above: Order Comment: Speci men Type: BLOOD SPECIMENOrdering Facility: [facility] Address: [address] [place] [address] Performed By: #### 2 4323-8 ####[facility] LABORATORYCLIA [id number] [address] [place] AST With P-5'-P [Catalytic activity/Vol] 17 U/L Normal 14-40 [facility] Comment on above: Order Comment: Speci men Type: BLOOD SPECIMENOrdering Facility: [facility] Address: [address] [place] [address] Performed By: #### 2 4323-8 ####[facility] LABORATORYCLIA [id number] [place] [address] [place] Bilirubin [Mass/Vol] 0.5 mg/dL Normal 0.2-1.3 [facility] Comment on above: Order Comment: Speci men Type: BLOOD SPECIMENOrdering Facility: [facility] Address: [address] [place] [address] Performed By: #### 2 4323-8 ####[facility] LABORATORYCLIA [id number] [address] [place] Calcium [Mass/Vol] 9.3 mg/dL Normal 8.5-10.2 [facility] Comment on above: Order Comment: Speci men Type: BLOOD SPECIMENOrdering Facility: [facility] Address: [address] [place] [address] Performed By: #### 2 4323-8 ####[facility] LABORATORYCLIA [id number] [place] [address] [place] Chloride [Moles/Vol] 104 mmol/L Normal 98-107 [facility] Comment on above: Order Comment: Speci men Type: BLOOD SPECIMENOrdering Facility: [facility] Address: [address] [place] [address] Performed By: #### 2 4323-8 ####[facility] LABORATORYCLIA [id number] [address] [place] CO2 [Moles/Vol] 24 mmol/L Normal 22-30 [facility] Comment on above: Order Comment: Speci men Type: BLOOD SPECIMENOrdering Facility: [facility] Address: [address] [place] [address] Performed By: #### 2 4323-8 ####[facility] [id number] [address] Creatinine [Mass/Vol] 1.04 mg/dL Normal 0.73-1.22 [facility] Comment on above: Order Comment: Speci men Type: BLOOD SPECIMENOrdering Facility: [facility] Address: [address] [place] [address] Performed By: #### 2 4323-8 ####[facility] LABORATORYCLIA [id number] [address] Creatinine and Glomerular filtration rate.predicted panel (S/P/Bld) 78 mL/min/1.73m??? Normal >=60 [facility] Comment on above: Order Comment: Speci men Type: BLOOD SPECIMENOrdering Facility: [facility] Address: [address] [place] [address] Result Comment: Piedad mated Glomerular Filtration Rate [...] actual GFR. Performed By: #### 2 4323-8 ####[facility] LABORATORYCLIA [id number] [place] [address] [place] Glucose [Mass/Vol] 84 mg/dL Normal 74-99 [facility] Comment on above: Order Comment: Speci men Type: BLOOD SPECIMENOrdering Facility: [facility] Address: [address] [place] [address] Result Comment: The [place] Diabetes Association (ADA) provides guidance for cutoff [...] Standards of Medical Care in Diabetes 2016, [place] Diabetes Association. Diabetes Care. 2016.39(Suppl 1). Performed By: #### 2 4323-8 ####[facility] LABORATORYCLIA [id number] [place] [address] [place] Potassium [Moles/Vol] 4.2 mmol/L Normal 3.7-5.1 [facility] Comment on above: Order Comment: Charlesi men Type: BLOOD SPECIMENOrdering Facility: [facility] Address: [address] [place] [address] Performed By: #### 2 4323-8 ####[facility] LABORATORYCLIA [id number] [place] [address] [place] Protein [Mass/Vol] 7.3 g/dL Normal 6.3-8.0 [facility] Comment on above: Order Comment: Speci men Type: BLOOD SPECIMENOrdering Facility: [facility] Address: [address] [place] [address] Performed By: #### 2 4323-8 ####[facility] LABORATORYCLIA [id number] [place] [address] [place] Sodium [Moles/Vol] 141 mmol/L Normal 136-144 [facility] Comment on above: Order Comment: Speci men Type: BLOOD SPECIMENOrdering Facility: [facility] Address: [address] [place] [address] Performed By: #### 2 4323-8 ####[facility] LABORATORYCLIA [id number] [place] [id number] [place] [facility] Urea nitrogen [Mass/Vol] 16 mg/dL Normal 9-24 [facility] Comment on above: Order Comment: Speci men Type: BLOOD SPECIMENOrdering Facility: [facility] Address: [address] [place] [address] Performed By: #### 2 4323-8 ####[facility] LABORATORYCLIA [id number] [address] PT panel Coag (PPP)on 2023 INR Coag (PPP) [Relative time] 1.0 {INR} Normal 0.9-1.3 [facility] Comment on above: Order Comment: Speci men Type: BLOOD SPECIMENOrdering Facility: [facility] Address: [address] [place] [address] Result Comment: Whitney min K Antagonist (VKA) Therapeutic Range: INR 2 to 3 (Target INR of 2.5) Note: For patients treated with VKA drugs, such as warfarin, the [place] [employer] 2012 Guideline recommends [...] Chest 2012, 141:7S-47S January RA et al. [facility] 2017, 70: 252-289 Performed By: #### 3 4528-0 ####[facility] LABORATORYCLIA [id number] [address] [place] PT Coag (PPP) [Time] 10.9 s Normal 9.7-13.0 [facility] Comment on above: Order Comment: Speci men Type: BLOOD SPECIMENOrdering Facility: [facility] Address: [address] [place] [address] Performed By: #### 3 4528-0 ####[facility] LABORATORYCLIA [id number] [address] TYPE AND SCREEN,30 DAYon ABO AB Normal [facility] Comment on above: Order Comment: Speci men Type: BLOOD SPECIMENOrdering Facility: [facility] Address: [address] [place] [address] Performed By: #### T SCR30 ####[facility] BLOOD BANKCLIA [id number] [address] HISTORICAL AB SCR STATUS Negative Normal [facility] Comment on above: Order Comment: Speci men Type: BLOOD SPECIMENOrdering Facility: [facility] Address: [address] [place] [address] Performed By: #### T SCR30 ####[facility] BLOOD BANKCLIA [id number] [address] Rh Nom (Bld) Positive Normal [facility] Comment on above: Order Comment: Speci men Type: BLOOD SPECIMENOrdering Facility: [facility] Address: [address] [place] [address] Performed By: #### T SCR30 ####[facility] BLOOD BANKCLIA [id number] [address] CNPGisele 01-18-2024 CNPN Telephone (AGVASACC) -- SHARONDA FLORES ([id number]) 1955 M [facility] Date Time Provider Department [...] arrival time 6am procedure time 8am @ [facility]. Allergies As of Date: 01/18/2024 Noted Allergy Reaction PENICILLINS 05/23/2008 4 - Hives Date Reviewed: 01/08/2024 Reviewed by: Nadege Tadeo MD - Fully Assessed Reason for Visit: Schedule Surgery [1330] Orders [681] Primary Visit Diagnosis:Nodule of upper lobe of right lung [R91.1] Other Visit Diagnoses:Preoperative testing [Z01.818] Shortness of breath [R06.02] Order(s):COMPLETE BLOOD COUNT [SQCBC] Order #: [id number] FUTURE TYPE AND SCREEN,30 DAY [PCDDZN85] Order #: [id number] FUTURE COMPREHENSIVE METABOLIC PANEL [SQCMP] Order #: [id number] FUTURE PROTHROMBIN TIME [SQPT] Order #: [id number] FUTURE Prescriptions as of 01/19/2024 - atorvastatin [...] USE DISORDER [F17.200] 06/03/2008 SPRAIN SHOULDER/ARM NOS [[id number]] 06/03/2008 JOINT PAIN-ANKLE [M25.579] 06/03/2008 HERPES SIMPLEX NOS [B00.9] 06/03/2008 MIXED HYPERLIPIDEMIA [E78.2] 07/02/2008 SCREENING MAL NEOP-COLON [Z12.11] 10/08/2008 BENIGN NEOPLASM LG BOWEL [D12.6] 10/08/2008 Coronary artery disease involving kaw lacey* Essential hypertension [I10] Thrombocytopenia (HCC) [D69.6] Tinnitus of both ears [H93.13] Psoriasis [L40.9] Abdominal aortic aneurysm (AAA) without rupture*06/08/2021 At risk for sleep apnea [Z91.89] 11/29/[address] lung nodules on CT [R91.8] 11/09/2023 Lung nodule [R91.1] 12/15/2023 Encounter Status:Closed by FRED MCKINNEY on 01/19/24 [facility] CNPGisele 01-09-2024 CNPN Telephone (AGVAS[place]) -- SHARONDA FLORES ([id number]) 1955 M [facility] Date Time Provider Department 01/09/24 NADEGE TADEO During your visit today, we recorded the following information about you: Conrado Yao MA 01/09/2024 3:36 PM Signed Outpatient Scheduler Dr. Tineo [phone] fax [phone] cardiac clearance request faxed on 01/09/24. Bronchoscopy, [...] lung [R91.1] Order(s):SURGICAL REQUEST - ELECTIVE (02/2020) [1275426] Order #: [id number]: 1 Prescriptions as of 01/18/2024 - atorvastatin [...] USE DISORDER [F17.200] 06/03/2008 SPRAIN SHOULDER/ARM NOS [[id number]] 06/03/2008 JOINT PAIN-ANKLE [M25.579] 06/03/2008 HERPES SIMPLEX NOS [B00.9] 06/03/2008 MIXED HYPERLIPIDEMIA [E78.2] 07/02/2008 SCREENING MAL NEOP-COLON [Z12.11] 10/08/2008 BENIGN NEOPLASM LG BOWEL [D12.6] 10/08/2008 Coronary artery disease involving kaw lacey* Essential hypertension [I10] Thrombocytopenia (HCC) [D69.6] Tinnitus of both ears [H93.13] Psoriasis [L40.9] Abdominal aortic aneurysm (AAA) without rupture*06/08/2021 At risk for sleep apnea [Z91.89] 11/29/[address] Multiple lung nodules on CT [R91.8] 11/09/2023 Lung nodule [R91.1] 12/15/2023 Encounter Status:Closed by BISHNU YAO on 01/18/24 Normal [facility] CNCOon 01-08-2024 CNCO Letter Text Normal [facility] CNOVon 01-08-2024 CNOV Office Visit (AGVASA CC) -- SHARONDA FLORES ([id number]) 1955 [facility] Date Time Provider Department 01/08/24 1:00 PM NADEGE TDAEO During your visit today, we recorded the following information about you: Pulse Respiration Blood pressure Weight 68/minute 16/minute 120/64 78.5 kg Height 1.651 m Nadege Tadeo MD 01/08/2024 1:49 PM Signed PRIMARY CARE PHYSICIAN: Tima Tello [facility] [place] [phone] Subjective Chief Complaint No chief complaint on [...] neoplasm of colon Coronary artery disease involving kaw coronary artery of kaw heart without angina pectoris Dr. Tineo Essential hypertension History of tobacco use Multiple lung nodules on CT 11/09/2023 PET scan ordered Psoriasis [facility] Thrombocytopenia (HCC) Tinnitus of both ears PAST [...] respiratory distress. (more content not included)... Normal [facility] CNPNon 12-22-2023 [facility] -- SHARONDA FLORES ([id number]) 1955 M [facility] Date Time Provider Department 12/22/23 CHARO TSAI [facility] During your visit today, we recorded [...] or concerns at this time. Charo Tsai APRN.[facility] December 22, 2023 1:13 PM Allergies As of Date: 12/22/2023 Noted Allergy Reaction PENICILLINS 05/23/2008 4 - Hives Date Reviewed: 12/15/2023 Reviewed by: Charlene Estrada RN - Fully Assessed Reason for Visit: Results [95] Primary Visit Diagnosis:Multiple lung nodules [R91.8] Other Visit Diagnosis:Former tobacco use [Z87.891] Order(s):CONSULT TO CARDIOTHORACIC SURGERY [7461577] Order #: [id number]: 1 FUTURE RAD/ONC CONSULT [9037] Order #: [id number]: 1 FUTURE Prescriptions as of 12/28/2023 - [...] USE DISORDER [F17.200] 06/03/2008 SPRAIN SHOULDER/ARM NOS [[id number]] 06/03/2008 JOINT PAIN-ANKLE [M25.579] 06/03/2008 HERPES SIMPLEX NOS [B00.9] 06/03/2008 MIXED HYPERLIPIDEMIA [E78.2] 07/02/2008 SCREENING MAL NEOP-COLON [Z12.11] 10/08/2008 BENIGN NEOPLASM LG BOWEL [D12.6] 10/08/2008 Coronary artery disease involving kaw lacey* Essential hypertension [I10] Thrombocytopenia (HCC) [D69.6] Tinnitus of both ears [H93.13] Psoriasis [L40.9] Abdominal aortic aneurysm (AAA) without rupture*06/08/2021 At risk for sleep apnea [Z91.89] 11/29/[address] [R91.8] 11/09/2023 Lung nodule [R91.1] 12/15/2023 Encounter Status:Closed by CHARO TSAI on 12/28/23 [facility] ANES POSTPROC EVALon 024 ANES POSTPROC EVAL HNO ID: [id number] Author: ANTONIO MCCLURE MD Service: Anesthesiology Author [...] December 15, 2023 TIME: 12:57 PM CSN: [id number] [facility] ANES PRE-OPon 12-15-2023 ANES PRE-OP HNO ID: [id number] Author: ANTONIO MCCLURE MD Service: Anesthesiology Author [...] rupture (HCC) (+) Coronary artery disease involving kaw coronary artery of kaw heart without angina pectoris (+) Essential hypertension [...] and consent discussed: yes. Patient / Responsible Libertarian agrees to proceed: yes Patient / Surrogate [...] December 15, 2023 TIME: 7:06 AM CSN: [id number] Normal [facility] CYTOLOGY NON-GYNon 4 ADEQUACY INTERPRETATION Normal [facility] Comment on above: Order Comment: Speci men Type: SPECIMEN OBTAINED BY ASPIRATIONOrdering Facility: [facility] Address: [address] [place] [address] Result Comment: A: # 1-5 Non-diagnostic B: #1-4 Non-diagnostic #5 Lymphoid sample C: #1,[address] Dorota Lovett / Deann Corbett Each letter in the above intra-procedural assessment refers to a unique site. The specific site is indicated in the final diagnosis portion of the report. Each number in this assessment references a discrete evaluation episode. Intra-procedural assessment performed at [facility], [address] [place] [address] Performed By: #### C YTONON ####[facility] LABORATORYCLIA [id number] [address] CASE REPORT Normal [facility] Comment on above: Order Comment: Speci men Type: SPECIMEN OBTAINED BY ASPIRATIONOrdering Facility: [facility] Address: [address] [place] [address] Result Comment: [facility] Cytology Report Case: [id number] Authorizing Provider: Tima Guardado MD Collected: 12/15/2023 07:49 AM Ordering Location: [facility] Received: 12/15/2023 10:38 AM Endoscopy - ENDO Pathologist: Sheng Lovett MD Specimens: A) - Lung, Right Upper Lobe, Transbronchial B) - Lymph Node, Transbronchial, 11RS C) - Lymph Node, Transbronchial, 11RI Performed By: #### C YTONON ####[facility] LABORATORYCLIA [id number] [address] FINAL DIAGNOSIS Normal [facility] Comment on above: Order Comment: Speci men Type: SPECIMEN OBTAINED BY ASPIRATIONOrdering Facility: [facility] Address: [address] [place] [address] Result Comment: A - Lung, Right Upper [...] Alcohol Fixed Performed By: #### C YTONON ####[facility] LABORATORYCLIA [id number] [address] FINAL PERFORMING LAB Normal [facility] Comment on above: Order Comment: Speci men Type: SPECIMEN OBTAINED BY ASPIRATIONOrdering Facility: [facility] Address: [address] [place] [address] Result Comment: Tech nical component, gaming host screening performed at [facility], [address] [place] [address] CLIA# [id number] Diagnostic interpretation performed at [facility], [address] [place] [address] CLIA# [id number] Market Risk Analyst: Dewayne Bray M.D. Performed By: #### C YTONON ####[facility] LABORATORYCLIA [id number] [address] [place] GROSS DESCRIPTION Normal [facility] Comment on above: Order Comment: Speci men Type: SPECIMEN OBTAINED BY ASPIRATIONOrdering Facility: [facility] Address: [address] [place] [address] Result Comment: A. L brionna, Right Upper [...] 2 fixed). Performed By: #### C YTONON ####[facility] LABORATORYCLIA [id number] [address] [place] ORDER COMMENT Normal [facility] Comment on above: Order Comment: Speci men Type: SPECIMEN OBTAINED BY ASPIRATIONOrdering Facility: [facility] Address: [address] [place] [address] Result Comment: Pre- op diagnosis: Lung nodule [R91.1] Performed By: #### C YTONON ####[facility] LABORATORYCLIA [id number] [place] [address] [place] NURSING PROGon 12-15-2023 NURSING PROG HNO ID: [id number] Author: CHARLENE ESTRADA RN Service: Nursing Author [...] (RECOMMENDATION): None Electronically Signed By: Charlene Estrada [facility] NURSING PROG HNO ID: [id number] Author: CARITO SOUSA RN Service: Nursing Author [...] (RECOMMENDATION): None Electronically Signed By: Carito Sousa [facility] SURGICAL PATHOLOGYon 024 CASE REPORT [facility] Comment on above: Order Comment: Speci men Type: TISSUE SPECIMENOrdering Facility: [facility] Address: [address] [place] [address] Result Comment: Surg ical Pathology Report Case: [id number] Authorizing Provider: Tima Guardado MD Collected: 12/15/2023 08:33 AM Ordering Location: [facility] Received: 12/15/2023 11:29 AM Endoscopy - ENDO Pathologist: Elver Whitaker V, MD Specimen: Lung, Right Upper Lobe, Transbronchial Biopsy, core needle biopsy Performed By: #### S ####[facility] LABCLIA [id number] [address] OF [facility] CLINICAL HISTORY Normal [facility] Comment on above: Order Comment: Speci men Type: TISSUE SPECIMENOrdering Facility: [facility] Address: [address] [place] [address] Result Comment: Pre- op diagnosis: Lung nodule [R91.1] Performed By: #### S ####[facility] LABCLIA [id number] [address] FINAL DIAGNOSIS Normal [facility] Comment on above: Order Comment: Speci men Type: TISSUE SPECIMENOrdering Facility: [facility] Address: [address] [place] [address] Result Comment: Righ t lung, upper lobe, transbronchial biopsy: - Predominantly blood with rare clusters of benign respiratory-type epithelium. [facility]/ 12/18/2023 Performed By: #### S ####[facility] LABCLIA [id number] [address] FINAL PERFORMING LAB Normal [facility] Comment on above: Order Comment: Speci men Type: TISSUE SPECIMENOrdering Facility: [facility] Address: [address] [place] [address] Result Comment: Diag nostic interpretation performed at [facility], [address] [place] [address] CLIA# [id number] Market Risk Analyst: Bjorn Zuleta M.D. Performed By: #### S ####[facility] LABCLIA [id number] [address] [place] GROSS DESCRIPTION Normal [facility] Comment on above: Order Comment: Speci men Type: TISSUE SPECIMENOrdering Facility: [facility] Address: [address] [place], [place] [address] [address] Result Comment: Moncho staton, Right Upper Lobe, Transbronchial Biopsy Received in formalin are multiple segments of cylindrical tissue aggregating to 2.4 x 0.8 x 0.1 cm, prather-red and of a soft and friable consistency. Totally submitted in one cassette. Gross examination performed at [facility], [address] [place] [address], [address] December 15, 2023 5:04 PM Performed By: #### S ####[facility] LABCLIA [id number] [place] [address] [place] XR CHEST 1V [...] Please see procedure notes for more details High Lead Yarder: PSCB Transcribe Date/Time: Dec 15 2023 10:05A Dictated by : MADIE AUGUST MD This examination was interpreted and the report reviewed and electronically signed by: MADIE AUGUST MD on Dec 15 2023 10:06AM EST [id number] [facility] SIX MINUTE WALKon 12-06-2023 Rosana Sanchez ESTHELA [...] DATE: December 06, 2023 TIME: 8:51 AM [facility] SIX MINUTE WALKOrdered By: Fadi Mas on 12-06-2023 [facility] Work Phone: ECG COMPLETEon 11-29-2023 Atrial Rate 65 BPM [facility] Calculated P [place] 44 degrees [facility] Calculated R [place] 17 degrees [facility] Calculated T [place] 18 degrees [facility] P-R Interval 152 ms [facility] QRS Duration 78 ms [facility] QT Interval 396 ms [facility] QTC Calculation (Bazett) 411 ms [facility] Ventricular Rate 65 BPM [facility] NORMAL SINUS RHYTHM NORMAL ECG Confirmed by MD TURPIN GREGORY () on 11/29/2023 8:41:55 AM [facility] NAME : ALISA FLORES PID : [id number] : 1955 Gender : Male Race : ORD : Procedure Date : Nov 29 2023 08:13:29 Edit Date : Nov 29 2023 08:41:58 Diagnosis: NORMAL SINUS RHYTHM NORMAL ECG Confirmed by MD TURPIN GREGORY () on 11/29/2023 8:41:55 AM Test Reason : Location : 636 : [facility] Overread By : MD TURPIN GREGORY Edited By : MD TURPIN GREGORY Referred By : RENE MORE Acquired by : mima, [facility] CT Lung parenchyma WO manuel taco 11-06-2023 [facility] Anuja 08-03-2023 RENEEN Telephone (PULJ) -- SHARONDA FLORES ([id number]) 1955 M [facility] Date Time Provider Department 08/03/23 CHARO TSAI [facility] During your visit today, we recorded the following information about you: Charo Tsai APRN.CNP 08/03/2023 4:18 PM Signed Spoke with patient and the following results were discussed: LDCT Lung Screen Results LungRADS category: 4A Incidentals: coronary calcifications with stents Recommendations: Follow up CT in 3 mos Case reviewed with [facility] physician champion Dr. Law Foy. Patient [...] nodules [R91.8] Order(s):CT LUNG FOLLOWUP WO LOCOON [[id number]] Order #: [id number] FUTURE Prescriptions as of 08/03/2023 - ezetimibe [...] USE DISORDER [F17.200] 06/03/2008 SPRAIN SHOULDER/ARM NOS [[id number]] 06/03/2008 JOINT PAIN-ANKLE [M25.579] 06/03/2008 HERPES SIMPLEX NOS [B00.9] 06/03/2008 MIXED HYPERLIPIDEMIA [E78.2] 07/02/2008 SCREENING MAL NEOP-COLON [Z12.11] 10/08/2008 BENIGN NEOPLASM LG BOWEL [D12.6] 10/08/2008 Coronary artery disease involving kaw lacey* Essential hypertension [I10] Thrombocytopenia (HCC) [D69.6] Tinnitus of both ears [H93.13] Psoriasis [L40.9] Abdominal aortic aneurysm (AAA) without rupture*06/08/2021 Encounter Status:Closed by CHARO TSAI on 08/03/23 [facility] US ABD AORTAon 06-13-2023 [facility] Qualitative QuantiFERON-TB g old in tube testOrdered By: Dr. Valderrama on 08-23-2022 M. tuberculosis tuberculin stim IFN-g Ql (Bld) 0.04 IU/mL . [facility] Thin prep Papanicolaou smear with manual screeningOrdered By: Dr. Valderrama on 08-23-2022 Thin prep Papanicolaou smear with manual screening Comment . [facility] Comment on above: QuantiFERON-TB Gold Plus is [...] smear with manual screening 0.04 IU/mL . [facility] Thin prep Papanicolaou smear with manual screening 0.05 IU/mL . [facility] Thin prep Papanicolaou smear with manual screening > 10.00 IU/mL . [facility] Thin prep Papanicolaou smear with manual screening Negative Negative [facility] Comment on above: No response to M [...] the productionof interferon gamma. Chemiluminescence immunoassaymethodologyPerformed at: [place] [id number] Director: Curt Taylor PhD, Phone: [phone] Comp Metabolic Panelon 09-30 ALP [Catalytic activity/Vol] 63 U/L Normal 38-126 [facility] Comment on above: Performed By: #### C MP3, LIPD2 #### [facility] [address] [place], [place] ALT [Catalytic activity/Vol] 22 U/L Normal 0-49 [facility] Comment on above: Result Comment: The ALT test is performed by an updated assay method. Please note that the reference intervals have been changed and are now sex specific. Performed By: #### C MP3, LIPD2 #### [facility] [employer] [facility] [address], [place] AST [Catalytic activity/Vol] 29 U/L Normal 15-46 [facility] Comment on above: Performed By: #### C MP3, LIPD2 #### [facility] [address], [place] Bilirubin [Mass/Vol] 0.7 mg/dL Normal 0.2-1.3 [facility] Comment on above: Performed By: #### C MP3, LIPD2 #### [facility] [address] [place] [address] Calcium [Mass/Vol] 9.4 mg/dL Normal 8.4-10.4 [facility] Comment on above: Performed By: #### C MP3, LIPD2 #### [facility] [address] [place] [address] Creatinine [Mass/Vol] 0.81 mg/dL Normal 0.52-1.25 [facility] Comment on above: Performed By: #### C MP3, LIPD2 #### [facility] [address] [place] [address] GFR/1.73 sq M predicted among blacks MDRD (S/P/Bld) [Vol rate/Area] mL/min/{1.73_m2} Normal >60 [facility] Comment on above: Performed By: #### C MP3, LIPD2 #### [facility] [address] [place] [address] GFR/1.73 sq M predicted among non-blacks MDRD (S/P/Bld) [Vol rate/Area] mL/min/{1.73_m2} Normal >60 [facility] Comment on above: Result Comment: KDIG O [...] Performed By: #### C MP3, LIPD2 #### [facility] [employer] [facility] [address] [place] [address] Glucose [Mass/Vol] 77 mg/dL Normal 70-100 [facility] Comment on above: Performed By: #### C MP3, LIPD2 #### [facility] [address] [place], [place] Protein [Mass/Vol] 7.3 g/dL Normal 6.3-8.2 [facility] Comment on above: Performed By: #### C MP3, LIPD2 #### [facility] [address] [place], [place] Urea nitrogen [Mass/Vol] 15 mg/dL Normal 7-20 [facility] Comment on above: Performed By: #### C MP3, LIPD2 #### [facility] [address] [place], [place] Anion gap [Moles/Vol] 3 mmol/L Normal 3-13 [facility] Comment on above: Performed By: #### C MP3, LIPD2 #### [facility] [address] [place], [place] CO2 [Moles/Vol] 30 mmol/L Normal 22-30 [facility] Comment on above: Performed By: #### C MP3, LIPD2 #### [facility] [address] [place], [place] Albumin [Mass/Vol] 4.2 g/dL Normal 3.5-5.0 [facility] Comment on above: Performed By: #### C MP3, LIPD2 #### [facility] [address] [place], [place] Potassium [Moles/Vol] 4.9 mmol/L Normal 3.5-5.1 [facility] Comment on above: Performed By: #### C MP3, LIPD2 #### [facility] [address] [place], [place] Sodium [Moles/Vol] 138 mmol/L Normal 135-145 [facility] Comment on above: Performed By: #### C MP3, LIPD2 #### [facility] [address] [place], [place] Chloride [Moles/Vol] 105 mmol/L Normal 98-107 [facility] Comment on above: Performed By: #### C MP3, LIPD2 #### [facility] [employer] [address] [place] [address] Comprehensive Metabolic Pane ra 09-30-2020 Albumin [Mass/Vol] 4.2 g/dL 3.5 - 5 g/dL [employer] Work Phone: [phone] ALP [Catalytic activity/Vol] 63 U/L 38 - 126 U/L [facility] Work Phone: [phone] ALT [Catalytic activity/Vol] 22 U/L 0 - 49 U/L [facility] Work Phone: [phone] Comment on above: The ALT test is perf ormed by an updated assay method. Please note that the reference intervals have been changed and are now sex specific. Anion gap [Moles/Vol] 3 mmol/L 3 - 13 mmol/L [facility] Work Phone: [phone] AST [Catalytic activity/Vol] 29 U/L 15 - 46 U/L [facility] Work Phone: [phone] Bilirubin Ql (U) 0.7 mg/dL 0.2 - 1.3 mg/dL [facility] Work Phone: [phone] Calcium [Mass/Vol] 9.4 mg/dL 8.4 - 10. 4 mg/dL [facility] Work Phone: [phone] Chloride [Moles/Vol] 105 mmol/L 98 - 10 7 mmol/L [facility] Work Phone: [phone] CO2 [Moles/Vol] 30 mmol/L 22 - 30 mmol/L [facility] Work Phone: [phone] Creatinine [Mass/Vol] 0.81 mg/dL 0.52 - 1.25 mg/dL [facility] Work Phone: [phone] EGFR IF NonAfrican Israeli >90.0 >60 mL/min [facility] Work Phone: [phone] Comment on above: KDIGO guidelines pro vide [...] MDRD (S/P/Bld) [Vol rate/Area] mL/min/{1.73_m2} >60 mL/min [facility] Work Phone: Glucose [Mass/Vol] 77 mg/dL 70 - 100 mg/dL [facility] Work Phone: Potassium [Moles/Vol] 4.9 mmol/L 3.5 - 5.1 mmol/L [facility] Work Phone: [phone] Protein [Mass/Vol] 7.3 g/dL 6.3 - 8.2 g/dL [facility] Work Phone: Sodium [Moles/Vol] 138 mmol/L 135 - 145 mmol/L [facility] Work Phone: [phone] Urea nitrogen [Mass/Vol] 15 mg/dL 7 - 20 mg/dL [facility] Work Phone: Lipid Panelon 09-30-2020 Cholesterol in HDL [Mass/Vol] 34 mg/dL Low 40-[address] [facility] [employer] Comment on above: Performed By: #### C MP3, LIPD2 #### [employer] [address] [place] [address] Cholesterol.total/Stephanie sterol in HDL [Mass ratio] 7 [facility] Comment on above: Result Comment: Ref Range: < 3 Low Risk for CHD 3-6 Mod Risk for CHD > 6 High Risk for CHD Performed By: #### C MP3, LIPD2 #### [employer] [address] [place] [address] Protein [Mass/Vol] 175 mg/dL Abnormal <[address] [facility] [employer] Comment on above: Performed By: #### C MP3, LIPD2 #### [facility] [address] [place] [address] Triglyceride [Mass/Vol] 164 mg/dL Abnormal <150 [facility] Comment on above: Performed By: #### C MP3, LIPD2 #### [facility] [address] [place] [address] Cholesterol [Mass/Vol] 242 mg/dL Abnormal < 200 [facility] Comment on above: Performed By: #### C MP3, LIPD2 #### [facility] [address] [place] [address] Cholesterol [Mass/Vol] 242 mg/dL Abnormal <200 [facility] Work Phone: Cholesterol in HDL [Mass/Vol] 34 mg/dL Low 40 - 60 mg/dL [facility] Work Phone: Cholesterol in LDL [Mass/Vol] 175 mg/dL Abnormal <100 [facility] Work Phone: Cholesterol.total/Stephanie sterol in HDL [Mass ratio] 7 {ratio} [facility] Work Phone: Comment on above: Ref Range: < 3 Low Risk for CHD 3-6 Mod Risk for CHD > 6 High Risk for CHD Interpretation and review of laboratory results Abnormal [facility] Work Phone: Triglyceride [Mass/Vol] 164 mg/dL Abnormal <150 [facility] Work Phone: Otheron 09-30-2020 Test Performed by [facility], [address] [place] [address] [facility] Work Phone: RFon 10-04-2018 Rheumatoid Factor <6.0 Normal [facility] ([place]) Comment on above: Result Comment: RF [...] tests. These results were obtained with the [employer] QUANTA Lite RF IgM MICHELLE. RF IgM values obtained with different manufacturers' assay methods may not be used interchangeably. The magnitude of the reported IgM levels cannot be correlated to an endpoint titer. Performed By: #### C BC, ADIFF, ANEU, B12, FERR, FES, CMP, GFR, FOL, ESR, KIMBERLY, CRP, RF #### [place] [address] ANAon 10-02-2018 Nuclear Ab IF titer (S) 40 {titer} Normal Neg 40 [facility] ([place]) Comment on above: Performed By: #### C BC, ADIFF, ANEU, B12, FERR, FES, CMP, GFR, FOL, ESR, KIMBERLY, CRP, RF #### [place] [address] CRPon 10-02-2018 CRP mass conc 0.53 mg/dL Normal <=0.80 [facility] ([place]) Comment on above: Performed By: #### C BC, ADIFF, ANEU, B12, FERR, FES, CMP, GFR, FOL, ESR, KIMBERLY, CRP, RF #### [place] [address] .Auto Diffon 10-01-2018 Ammonia mass conc (P) 0.40 10 3/mcL Normal 0.09-1.40 [facility] ([place]) Comment on above: Performed By: #### C BC, ADIFF, ANEU, B12, FERR, FES, CMP, GFR, FOL, ESR, KIMBERLY, CRP, RF #### [place] [address] Basophils #/vol (Bld) 0.00 10 3/mcL Normal 0.00-0.27 [facility] ([place]) Comment on above: Performed By: #### C BC, ADIFF, ANEU, B12, FERR, FES, CMP, GFR, FOL, ESR, KIMBERLY, CRP, RF #### [place] [address] Basophils/100 WBC (Bld) 0.5 % Normal 0.0-2.5 A [facility] ([place]) Comment on above: Performed By: #### C BC, ADIFF, ANEU, B12, FERR, FES, CMP, GFR, FOL, ESR, KIMBERLY, CRP, RF #### [address] [address] Eosinophils #/vol (Bld) 0.10 10 3/mcL Normal 0.00-0.65 [facility] ([place]) Comment on above: Performed By: #### C BC, ADIFF, ANEU, B12, FERR, FES, CMP, GFR, FOL, ESR, KIMBERLY, CRP, RF #### [address] [address] Eosinophils/100 WBC (Bld) 2.8 % Normal 0.0-6.0 [facility] ([place]) Comment on above: Performed By: #### C BC, ADIFF, ANEU, B12, FERR, FES, CMP, GFR, FOL, ESR, KIMBERLY, CRP, RF #### [address] [address] Lymphocytes #/vol (Bld) 1.10 10 3/mcL Normal 0.90-4.32 [facility] ([place]) Comment on above: Performed By: #### C BC, ADIFF, ANEU, B12, FERR, FES, CMP, GFR, FOL, ESR, KIMBERLY, CRP, RF #### [address] [address] Lymphocytes/100 WBC (Bld) 24.9 % Normal 20.0-40.0 [facility] ([place]) Comment on above: Performed By: #### C BC, ADIFF, ANEU, B12, FERR, FES, CMP, GFR, FOL, ESR, KIMBERLY, CRP, RF #### [address] [address] Monocytes/100 WBC (Bld) 7.6 % Normal 2.0-13.0 [facility] ([place]) Comment on above: Performed By: #### C BC, ADIFF, ANEU, B12, FERR, FES, CMP, GFR, FOL, ESR, KIMBERLY, CRP, RF #### [address] [address] Neutrophils/100 WBC (Bld) 64.2 % Normal 50.0-75.0 [facility] ([place]) Comment on above: Performed By: #### C BC, ADIFF, ANEU, B12, FERR, FES, CMP, GFR, FOL, ESR, KIMBERLY, CRP, RF #### [address] [address] .GFRon 10-01-2018 GFR Non- >60 Normal [facility] ([place]) Comment on above: Result Comment: [...] GFR, FOL, ESR, KIMBERLY, CRP, RF #### [place] [id number] GFR >60 Normal [facility] ([place]) Comment on above: Result Comment: GFR [...] GFR, FOL, ESR, KIMBERLY, CRP, RF #### [address] [address] .NEUABSon 10-01-2018 Neutrophils #/vol (Bld) 3.00 10 3/mcL Normal 2.25-8.10 [facility] ([place]) Comment on above: Performed By: #### C BC, ADIFF, ANEU, B12, FERR, FES, CMP, GFR, FOL, ESR, KIMBERLY, CRP, RF #### [address] [address] B12on 10-01-2018 Cobalamin (Vitamin B12) mass conc 504 pg/mL Normal 211-911 [facility] ([place]) Comment on above: Performed By: #### C BC, ADIFF, ANEU, B12, FERR, FES, CMP, GFR, FOL, ESR, KIMBERLY, CRP, RF #### [place] [id number] CBCon 10-01-2018 Erythrocyte distribution width Ratio (RBC) 13.8 % Normal 11.5-15.5 [facility] ([place]) Comment on above: Performed By: #### C BC, ADIFF, ANEU, B12, FERR, FES, CMP, GFR, FOL, ESR, KIMBERLY, CRP, RF #### [place] [address] Hematocrit Volume Fraction (Bld) 44.7 % Normal 40.0-52.0 [facility] ([place]) Comment on above: Performed By: #### C BC, ADIFF, ANEU, B12, FERR, FES, CMP, GFR, FOL, ESR, KIMBERLY, CRP, RF #### [place] [address] Hemoglobin mass conc (Bld) 15.2 G/dL Normal 13.0-17.5 [facility] ([place]) Comment on above: Performed By: #### C BC, ADIFF, ANEU, B12, FERR, FES, CMP, GFR, FOL, ESR, KIMBERLY, CRP, RF #### [place] [id number] MCH Entitic mass (RBC) 30.6 pg Normal 27.0-33.0 [facility] ([place]) Comment on above: Performed By: #### C BC, ADIFF, ANEU, B12, FERR, FES, CMP, GFR, FOL, ESR, KIMBERLY, CRP, RF #### [place] [address] MCHC mass conc (RBC) 34.0 G/dL Normal 32.0-36.0 [facility] ([place]) Comment on above: Performed By: #### C BC, ADIFF, ANEU, B12, FERR, FES, CMP, GFR, FOL, ESR, KIMBERLY, CRP, RF #### [place] [address] MCV Entitic volume (RBC) 89.9 fL Normal 81.0-100.0 [facility] ([place]) Comment on above: Performed By: #### C BC, ADIFF, ANEU, B12, FERR, FES, CMP, GFR, FOL, ESR, KIMBERLY, CRP, RF #### [place] [address] Platelet mean volume Entitic volume (Bld) 9.8 fL Normal 6.4-10.5 [facility] ([place]) Comment on above: Performed By: #### C BC, ADIFF, ANEU, B12, FERR, FES, CMP, GFR, FOL, ESR, KIMBERLY, CRP, RF #### [place] [address] Platelets #/vol (Bld) 128 10 3/mcL Low 150-450 A [facility] ([place]) Comment on above: Performed By: #### C BC, ADIFF, ANEU, B12, FERR, FES, CMP, GFR, FOL, ESR, KIMBERLY, CRP, RF #### [place] [address] RBC #/vol (Bld) 4.97 10 6/mcL Normal 4.50-6.00 [facility] ([place]) Comment on above: Performed By: #### C BC, ADIFF, ANEU, B12, FERR, FES, CMP, GFR, FOL, ESR, KIMBERLY, CRP, RF #### [place] [address] WBC #/vol (Bld) 4.60 10 3/mcL Normal 4.50-10.80 [facility] ([place]) Comment on above: Performed By: #### C BC, ADIFF, ANEU, B12, FERR, FES, CMP, GFR, FOL, ESR, KIMBERLY, CRP, RF #### [address] [address] CMPon 10-01-2018 Albumin/Globulin mass ratio 1.2 {ratio} Normal 0.9-1.6 [facility] ([place]) Comment on above: Performed By: #### C BC, ADIFF, ANEU, B12, FERR, FES, CMP, GFR, FOL, ESR, KIMBERLY, CRP, RF #### [address] [address] ALP enzyme act/vol 80 U/L Normal 38-126 [facility] ([place]) Comment on above: Performed By: #### C BC, ADIFF, ANEU, B12, FERR, FES, CMP, GFR, FOL, ESR, KIMBERLY, CRP, RF #### [address] [address] Bili Total 0.2 mg/dL Normal 0.2-1.2 [facility] ([place]) Comment on above: Performed By: #### C BC, ADIFF, ANEU, B12, FERR, FES, CMP, GFR, FOL, ESR, KIMBERLY, CRP, RF #### [address] [address] Creatinine mass conc 0.90 mg/dL Normal 0.60-1.40 [facility] ([place]) Comment on above: Performed By: #### C BC, ADIFF, ANEU, B12, FERR, FES, CMP, GFR, FOL, ESR, KIMBERLY, CRP, RF #### [place] [id number] Globulin mass conc (S) 3.2 G/dL Normal 1.5-3.8 [facility] ([place]) Comment on above: Performed By: #### C BC, ADIFF, ANEU, B12, FERR, FES, CMP, GFR, FOL, ESR, KIMBERLY, CRP, RF #### [address] [address] Protein mass conc 7.1 G/dL Normal 6.0-8.5 [facility] ([place]) Comment on above: Performed By: #### C BC, ADIFF, ANEU, B12, FERR, FES, CMP, GFR, FOL, ESR, KIMBERLY, CRP, RF #### [place] [id number] Urea nitrogen/Creatinine mass ratio 13.3 ratio Normal 10.0-22.0 [facility] ([place]) Comment on above: Performed By: #### C BC, ADIFF, ANEU, B12, FERR, FES, CMP, GFR, FOL, ESR, KIMBERLY, CRP, RF #### [place] [id number] Albumin mass conc 3.9 G/dL Normal 3.2-4.8 [facility] ([place]) Comment on above: Performed By: #### C BC, ADIFF, ANEU, B12, FERR, FES, CMP, GFR, FOL, ESR, KIMBERLY, CRP, RF #### [place] [address] ALT enzyme act/vol 21 U/L Normal 12-55 [facility] ([place]) Comment on above: Performed By: #### C BC, ADIFF, ANEU, B12, FERR, FES, CMP, GFR, FOL, ESR, KIMBERLY, CRP, RF #### [place] [id number] AST enzyme act/vol 12 U/L Normal 8-34 [facility] ([place]) Comment on above: Performed By: #### C BC, ADIFF, ANEU, B12, FERR, FES, CMP, GFR, FOL, ESR, KIMBERLY, CRP, RF #### [place] [id number] Calcium mass conc 9.2 mg/dL Normal 8.4-10.1 [facility] ([place]) Comment on above: Performed By: #### C BC, ADIFF, ANEU, B12, FERR, FES, CMP, GFR, FOL, ESR, KIMBERLY, CRP, RF #### [place] [id number] Chloride molar conc 108 mmol/L Normal 98-110 [facility] ([place]) Comment on above: Performed By: #### C BC, ADIFF, ANEU, B12, FERR, FES, CMP, GFR, FOL, ESR, KIMBERLY, CRP, RF #### [place] [address] CO2 molar conc 30 mmol/L Normal 22-32 [facility] ([place]) Comment on above: Performed By: #### C BC, ADIFF, ANEU, B12, FERR, FES, CMP, GFR, FOL, ESR, KIMBERLY, CRP, RF #### [place] [address] Electrolyte Balance 4.0 mEq/L Normal 4.0-15.0 [facility] ([place]) Comment on above: Performed By: #### C BC, ADIFF, ANEU, B12, FERR, FES, CMP, GFR, FOL, ESR, KIMBERLY, CRP, RF #### [place] [address] Glucose mass conc 77 mg/dL Low 82-115 [facility] ([place]) Comment on above: Performed By: #### C BC, ADIFF, ANEU, B12, FERR, FES, CMP, GFR, FOL, ESR, KIMBERLY, CRP, RF #### [place] [address] Potassium molar conc 4.5 mmol/L Normal 3.5-5.0 [facility] ([place]) Comment on above: Performed By: #### C BC, ADIFF, ANEU, B12, FERR, FES, CMP, GFR, FOL, ESR, KIMBERLY, CRP, RF #### [place] [address] Sodium molar conc 142 mmol/L Normal 136-145 [facility] ([place]) Comment on above: Performed By: #### C BC, ADIFF, ANEU, B12, FERR, FES, CMP, GFR, FOL, ESR, KIMBERLY, CRP, RF #### [place] [address] Urea nitrogen mass conc 12.0 mg/dL Normal 8.0-22.0 A [facility] ([place]) Comment on above: Performed By: #### C BC, ADIFF, ANEU, B12, FERR, FES, CMP, GFR, FOL, ESR, KIMBERLY, CRP, RF #### [place] [id number] ESRon 10-01-2018 ESR Velocity (Bld) 6 mm/h Normal 0-20 [facility] ([place]) Comment on above: Performed By: #### C BC, ADIFF, ANEU, B12, FERR, FES, CMP, GFR, FOL, ESR, KIMBERLY, CRP, RF #### [place] [address] [place] 10-01-2018 Ferritin mass conc 145 ng/mL Normal 26-388 [facility] ([place]) Comment on above: Performed By: #### C BC, ADIFF, ANEU, B12, FERR, FES, CMP, GFR, FOL, ESR, KIMBERLY, CRP, RF #### [place] [address] FESon 10-01-2018 Iron Sat 20 % Normal [facility] ([place]) Comment on above: Performed By: #### C BC, ADIFF, ANEU, B12, FERR, FES, CMP, GFR, FOL, ESR, KIMBERLY, CRP, RF #### [place] [address] TIBC 288 mcg/dL Normal 250-500 [facility] ([place]) Comment on above: Performed By: #### C BC, ADIFF, ANEU, B12, FERR, FES, CMP, GFR, FOL, ESR, KIMBERLY, CRP, RF #### [place] [address] Iron mass conc 58 ug/dL Normal 49-181 [facility] ([place]) Comment on above: Performed By: #### C BC, ADIFF, ANEU, B12, FERR, FES, CMP, GFR, FOL, ESR, KIMBERLY, CRP, RF #### [place] [address] FOLon 10-01-2018 Folate 17.7 ng/mL Normal 1.1-20.0 [facility] ([place]) Comment on above: Performed By: #### C BC, ADIFF, ANEU, B12, FERR, FES, CMP, GFR, FOL, ESR, KIMBERLY, CRP, RF #### [place] [address] Vital Signs Date Time Vital Sign Value Performing Clinician Edel nuñez 04-15-2025 08:25-0400 Diastolic blood pressure 76 mm[Hg] Cristo Loera DO Work Phone: [facility] 04-15-2025 08:25-0400 Heart rate 71 /min Cristo Loera DO Work Phone: [facility] 04-15-2025 08:25-0400 SaO2% (BldA) [Mass fraction] 98 % Cristo Loera DO Work Phone: [facility] 04-15-2025 08:25-0400 Systolic blood pressure 131 mm[Hg] Cristo Loera DO Work Phone: [facility] 04-09-2025 08:56-0400 Body mass index (BMI) [Ratio] 25.49 kg/m2 Analy Giraldoi DO Work Phone: [facility] 04-09-2025 08:56-0400 Body temperature 97.7 [degF] Analy Masci DO Work Phone: [facility] 04-09-2025 08:56-0400 Body weight 72.8 kg Analy Masci DO Work Phone: [facility] 04-09-2025 08:56-0400 Diastolic blood pressure 74 mm[Hg] Analy Masci DO Work Phone: [facility] 04-09-2025 08:56-0400 Heart rate 82 /min Analy Masci DO Work Phone: [facility] 04-09-2025 08:56-0400 SaO2% (BldA) [Mass fraction] 100 % Analy Masci DO Work Phone: [facility] 04-09-2025 08:56-0400 Systolic blood pressure 123 mm[Hg] Analy Masci DO Work Phone: [facility] 04-08-2025 16:35-0400 Diastolic blood pressure 67 mm[Hg] Mae Robles MD Work Phone: [facility] 04-08-2025 16:35-0400 Heart rate 73 /min Mae Robles MD Work Phone: [facility] 04-08-2025 16:35-0400 Respiratory rate 14 /min Mae Robles MD Work Phone: [facility] 04-08-2025 16:35-0400 SaO2% (BldA) [Mass fraction] 97 % Mae Robles MD Work Phone: [facility] 04-08-2025 16:35-0400 Systolic blood pressure 150 mm[Hg] Mae Robles MD Work Phone: [facility] 04-08-2025 14:20-0400 Body mass index (BMI) [Ratio] 25.87 kg/m2 Mae Robles MD Work Phone: [facility] 04-08-2025 14:20-0400 Body temperature 97.39 [degF] Mae Robles MD Work Phone: [facility] 04-08-2025 14:20-0400 Body weight 73.9 kg Mae Robles MD Work Phone: [facility] 03-26-2025 09:09-0400 Body mass index (BMI) [Ratio] 25.88 kg/m2 Gisselle Click PROCESS SUPERVISOR.PAPER PROCESSING MACHINE HELPER Work Phone: [facility] 03-26-2025 09:09-0400 Body weight 73.94 kg Gisselle Click PROCESS SUPERVISOR.PAPER PROCESSING MACHINE HELPER Work Phone: [facility] 03-26-2025 09:09-0400 Diastolic blood pressure 74 mm[Hg] Gisselle Click PROCESS SUPERVISOR.PAPER PROCESSING MACHINE HELPER Work Phone: [facility] 03-26-2025 09:09-0400 Heart rate 81 /min Gisselle Click PROCESS SUPERVISOR.PAPER PROCESSING MACHINE HELPER Work Phone: [facility] 03-26-2025 09:09-0400 Respiratory rate 15 /min Gisselle Click PROCESS SUPERVISOR.PAPER PROCESSING MACHINE HELPER Work Phone: [facility] 03-26-2025 09:09-0400 SaO2% (BldA) [Mass fraction] 100 % Gisselle Click PROCESS SUPERVISOR.PAPER PROCESSING MACHINE HELPER Work Phone: [facility] 03-26-2025 09:09-0400 Systolic blood pressure 120 mm[Hg] Gisselle Virgie PROCESS SUPERVISOR.PAPER PROCESSING MACHINE HELPER Work Phone: [facility] 03-21-2025 08:45-0400 Body mass index (BMI) [Ratio] 25.98 kg/m2 Saray Yves PROCESS SUPERVISOR.PAPER PROCESSING MACHINE HELPER Work Phone: [facility] 03-21-2025 08:45-0400 Body weight 74.21 kg Saray Yves PROCESS SUPERVISOR.PAPER PROCESSING MACHINE HELPER Work Phone: [facility] 03-21-2025 08:45-0400 Diastolic blood pressure 72 mm[Hg] Saray Yves PROCESS SUPERVISOR.PAPER PROCESSING MACHINE HELPER Work Phone: [facility] 03-21-2025 08:45-0400 Heart rate 66 /min Saray Yves PROCESS SUPERVISOR.PAPER PROCESSING MACHINE HELPER Work Phone: [facility] 03-21-2025 08:45-0400 Respiratory rate 14 /min Saray Yves PROCESS SUPERVISOR.PAPER PROCESSING MACHINE HELPER Work Phone: [facility] 03-21-2025 08:45-0400 SaO2% (BldA) [Mass fraction] 99 % Saray Yves PROCESS SUPERVISOR.PAPER PROCESSING MACHINE HELPER Work Phone: [facility] 03-21-2025 08:45-0400 Systolic blood pressure 151 mm[Hg] Saray Yves PROCESS SUPERVISOR.PAPER PROCESSING MACHINE HELPER Work Phone: [facility] 03-19-2025 06:57-0400 Body height 169 cm Tima Tello MD Work Phone: [facility] 03-19-2025 06:57-0400 Body mass index (BMI) [Ratio] 25.22 kg/m2 Tima Tello MD Work Phone: [facility] 03-19-2025 06:57-0400 Body weight 72.03 kg Tima Tello MD Work Phone: [facility] 03-19-2025 06:57-0400 Diastolic blood pressure 68 mm[Hg] Tima Tello MD Work Phone: [facility] 03-19-2025 06:57-0400 Heart rate 73 /min Tima Tello MD Work Phone: [facility] 03-19-2025 06:57-0400 SaO2% (BldA) [Mass fraction] 98 % Tima Tello MD Work Phone: [facility] 03-19-2025 06:57-0400 Systolic blood pressure 116 mm[Hg] Tima Tello MD Work Phone: [facility] 03-17-2025 08:12-0400 Body height 169 cm Analy Kristali DO Work Phone: [facility] 03-17-2025 08:12-0400 Body mass index (BMI) [Ratio] 26.21 kg/m2 Analy Masci DO Work Phone: [facility] 03-17-2025 08:12-0400 Body temperature 97.2 [degF] Analy Masci DO Work Phone: [facility] 03-17-2025 08:12-0400 Body weight 74.84 kg Analy Masci DO Work Phone: [facility] 03-17-2025 08:12-0400 Diastolic blood pressure 80 mm[Hg] Analy Masci DO Work Phone: [facility] 03-17-2025 08:12-0400 Heart rate 65 /min Analy Masci DO Work Phone: [facility] 03-17-2025 08:12-0400 SaO2% (BldA) [Mass fraction] 98 % Analy Masci DO Work Phone: [facility] 03-17-2025 08:12-0400 Systolic blood pressure 143 mm[Hg] Analy Masci DO Work Phone: [facility] 11-13-2024 13:00-0400 Diastolic blood pressure 68 mm[Hg] Becky Tineo MD Work Phone: [facility] [employer] 11-13-2024 13:00-0400 Systolic blood pressure 136 mm[Hg] Becky Tineo MD Work Phone: [facility] 11-13-2024 12:45-0400 Body height 165.1 cm Becky Tineo MD Work Phone: [facility] 11-13-2024 12:45-0400 Body mass index (BMI) [Ratio] 26.13 kg/m2 Becky Tineo MD Work Phone: [facility] 11-13-2024 12:45-0400 Body weight 71.22 kg Becky Tineo MD Work Phone: [facility] 11-13-2024 12:45-0400 Heart rate 66 /min Becky Tineo MD Work Phone: [facility] 11-13-2024 12:45-0400 SaO2% (BldA) [Mass fraction] 98 % Becky Tineo MD Work Phone: [facility] 09-24-2024 07:54-0500 Diastolic blood pressure 72 mm[Hg] Gisselle Click PROCESS SUPERVISOR.PAPER PROCESSING MACHINE HELPER Work Phone: [facility] 09-24-2024 07:54-0500 Heart rate 66 /min Gisselle Click PROCESS SUPERVISOR.PAPER PROCESSING MACHINE HELPER Work Phone: [facility] 09-24-2024 07:54-0500 Respiratory rate 18 /min Gisselle Click PROCESS SUPERVISOR.PAPER PROCESSING MACHINE HELPER Work Phone: [facility] 09-24-2024 07:54-0500 SaO2% (BldA) [Mass fraction] 96 % Gisselle Click PROCESS SUPERVISOR.PAPER PROCESSING MACHINE HELPER Work Phone: [facility] 09-24-2024 07:54-0500 Systolic blood pressure 118 mm[Hg] Gisselle Click PROCESS SUPERVISOR.PAPER PROCESSING MACHINE HELPER Work Phone: [facility] 09-17-2024 08:20-0500 Body mass index (BMI) [Ratio] 23.7 kg/m2 Alejandra Viramontes PROCESS SUPERVISOR.PAPER PROCESSING MACHINE HELPER Work Phone: [facility] 09-17-2024 08:20-0500 Body weight 68.5 kg Alejandra Viramontes PROCESS SUPERVISOR.PAPER PROCESSING MACHINE HELPER Work Phone: [facility] 09-17-2024 08:20-0500 Diastolic blood pressure 68 mm[Hg] Alejandra Podlogar PROCESS SUPERVISOR.PAPER PROCESSING MACHINE HELPER Work Phone: [facility] 09-17-2024 08:20-0500 Heart rate 74 /min Alejandra Podlogar PROCESS SUPERVISOR.PAPER PROCESSING MACHINE HELPER Work Phone: [facility] 09-17-2024 08:20-0500 Respiratory rate 18 /min Alejandra Podlogar PROCESS SUPERVISOR.PAPER PROCESSING MACHINE HELPER Work Phone: [facility] 09-17-2024 08:20-0500 SaO2% (BldA) [Mass fraction] 97 % Alejandra Podlogar PROCESS SUPERVISOR.PAPER PROCESSING MACHINE HELPER Work Phone: [facility] 09-17-2024 08:20-0500 Systolic blood pressure 122 mm[Hg] Alejandra Podlogar PROCESS SUPERVISOR.PAPER PROCESSING MACHINE HELPER Work Phone: [facility] 09-09-2024 08:18-0500 Body mass index (BMI) [Ratio] 23.15 kg/m2 Hakancourtney Blackwell Work Phone: [facility] 09-09-2024 08:18-0500 Body temperature 97.5 [degF] Hakan Blackwell Work Phone: [facility] 09-09-2024 08:18-0500 Body weight 66.91 kg Hakan Blackwell Work Phone: [facility] 09-09-2024 08:18-0500 Diastolic blood pressure 73 mm[Hg] Hakan Blackwell Work Phone: [facility] 09-09-2024 08:18-0500 Heart rate 61 /min Hakan Blackwell Work Phone: [facility] 09-09-2024 08:18-0500 SaO2% (BldA) [Mass fraction] 98 % Hakan Blackwell Work Phone: [facility] 09-09-2024 08:18-0500 Systolic blood pressure 128 mm[Hg] Hakan Francesight Work Phone: [facility] 08-14-2024 11:21-0500 Diastolic blood pressure 61 mm[Hg] Yara Flowers PROCESS SUPERVISOR - PAPER PROCESSING MACHINE HELPER Work Phone: [facility] 08-14-2024 11:21-0500 Heart rate 72 /min Yara Flowers PROCESS SUPERVISOR - PAPER PROCESSING MACHINE HELPER Work Phone: [facility] 08-14-2024 11:21-0500 Systolic blood pressure 100 mm[Hg] Yara Flowers PROCESS SUPERVISOR - PAPER PROCESSING MACHINE HELPER Work Phone: [facility] 07-31-2024 08:00-0500 Body temperature 97.81 [degF] Brooklynn Martinez DO Work Phone: [facility] 07-31-2024 08:00-0500 Diastolic blood pressure 50 mm[Hg] Brooklynn Martinez DO Work Phone: [facility] 07-31-2024 08:00-0500 Heart rate 74 /min Brooklynn Martinez DO Work Phone: [facility] 07-31-2024 08:00-0500 Respiratory rate 16 /min Brooklynn Martinez DO Work Phone: [facility] 07-31-2024 08:00-0500 SaO2% (BldA) [Mass fraction] 97 % Brooklynn Martinez DO Work Phone: [facility] 07-31-2024 08:00-0500 Systolic blood pressure 110 mm[Hg] Brooklynn Martinez DO Work Phone: [facility] 07-31-2024 06:23-0500 Body mass index (BMI) [Ratio] 26.29 kg/m2 Brooklynn Contreraser DO Work Phone: [facility] 07-31-2024 06:23-0500 Body weight 71.67 kg Brooklynn Martinez DO Work Phone: [facility] 07-26-2024 06:55-0500 Body height 165.1 cm Brooklynn Martinez DO Work Phone: [employer] Comment on above: per pt and chart 07-25-2024 13:29-0500 SaO2% (BldA) [Mass fraction] 98.3 % Brooklynn Martinez DO Work Phone: [facility] [employer] 07-25-2024 12:08-0500 SaO2% (BldA) [Mass fraction] 98.8 % Brooklynn Martinez DO Work Phone: [facility] 07-05-2024 14:30-0500 Diastolic blood pressure 105 mm[Hg] Becky Tineo MD Work Phone: [facility] 07-05-2024 14:30-0500 Heart rate 70 /min Becky Tineo MD Work Phone: [facility] 07-05-2024 14:30-0500 Respiratory rate 14 /min Becky Tineo MD Work Phone: [facility] 07-05-2024 14:30-0500 Systolic blood pressure 139 mm[Hg] Becky Tineo MD Work Phone: [facility] 07-05-2024 12:16-0500 Body temperature 96.69 [degF] Bekcy Tineo MD Work Phone: [facility] 07-05-2024 11:07-0500 SaO2% (BldA) [Mass fraction] 100 % Becky Tineo MD Work Phone: [facility] 07-05-2024 08:35-0500 Body height 165.1 cm Becky Tineo MD Work Phone: [facility] 07-05-2024 08:35-0500 Body mass index (BMI) [Ratio] 26.13 kg/m2 Becky Tineo MD Work Phone: [facility] 07-05-2024 08:35-0500 Body weight 71.22 kg Becky Tineo MD Work Phone: [facility] 06-25-2024 10:20-0500 Body height 165.1 cm Horace Becker CNP Work Phone: [facility] 06-25-2024 10:20-0500 Body mass index (BMI) [Ratio] 26.13 kg/m2 Horace Martinez APRN - PAPER PROCESSING MACHINE HELPER Work Phone: [facility] 06-25-2024 10:20-0500 Body weight 71.22 kg Horace Martinez PROCESS SUPERVISOR - PAPER PROCESSING MACHINE HELPER Work Phone: [facility] 06-11-2024 09:51-0500 Diastolic blood pressure 52 mm[Hg] Horace Martinez PROCESS SUPERVISOR - PAPER PROCESSING MACHINE HELPER Work Phone: [facility] 06-11-2024 09:51-0500 Systolic blood pressure 98 mm[Hg] Horace Martinez PROCESS SUPERVISOR - PAPER PROCESSING MACHINE HELPER Work Phone: [facility] 06-11-2024 09:03-0500 Body height 165.1 cm Horace Martinez APRN - PAPER PROCESSING MACHINE HELPER Work Phone: [facility] 06-11-2024 09:03-0500 Body mass index (BMI) [Ratio] 26.19 kg/m2 Horace Martinez APRN - PAPER PROCESSING MACHINE HELPER Work Phone: [facility] 06-11-2024 09:03-0500 Body weight 71.4 kg Horace Martinez APRN - PAPER PROCESSING MACHINE HELPER Work Phone: [facility] 06-11-2024 09:03-0500 Heart rate 64 /min Horace Martinez APRN - PAPER PROCESSING MACHINE HELPER Work Phone: [facility] 06-11-2024 09:03-0500 SaO2% (BldA) [Mass fraction] 95 % Horace Martinez APRN - PAPER PROCESSING MACHINE HELPER Work Phone: [facility] 05-21-2024 08:37-0400 Body mass index (BMI) [Ratio] 25.27 kg/m2 Jazmyn Mas MD Work Phone: [facility] 05-21-2024 08:37-0400 Body temperature 97.7 [degF] Jazmyn Mas MD Work Phone: [facility] 05-21-2024 08:37-0400 Body weight 73.03 kg Jazmyn Mas MD Work Phone: [facility] 05-21-2024 08:37-0400 Diastolic blood pressure 60 mm[Hg] Jazmyn Mas MD Work Phone: [facility] 05-21-2024 08:37-0400 Heart rate 74 /min Jazmyn Mas MD Work Phone: [facility] 05-21-2024 08:37-0400 SaO2% (BldA) [Mass fraction] 96 % Jazmyn Mas MD Work Phone: [facility] 05-21-2024 08:37-0400 Systolic blood pressure 102 mm[Hg] Jazmyn Mas MD Work Phone: [facility] 05-06-2024 15:14-0400 Body mass index (BMI) [Ratio] 25.16 kg/m2 Alejandra Podlogar PROCESS SUPERVISOR.PAPER PROCESSING MACHINE HELPER Work Phone: [facility] 05-06-2024 15:14-0400 Body weight 72.7 kg Alejandra Podlogar PROCESS SUPERVISOR.PAPER PROCESSING MACHINE HELPER Work Phone: [facility] 05-06-2024 15:14-0400 Diastolic blood pressure 58 mm[Hg] Alejandra Podlogar PROCESS SUPERVISOR.PAPER PROCESSING MACHINE HELPER Work Phone: [facility] 05-06-2024 15:14-0400 Heart rate 73 /min Alejandra Podlogar PROCESS SUPERVISOR.PAPER PROCESSING MACHINE HELPER Work Phone: [facility] 05-06-2024 15:14-0400 Respiratory rate 16 /min Alejandra Podlogar PROCESS SUPERVISOR.PAPER PROCESSING MACHINE HELPER Work Phone: [facility] 05-06-2024 15:14-0400 SaO2% (BldA) [Mass fraction] 94 % Alejandra Podlogar PROCESS SUPERVISOR.PAPER PROCESSING MACHINE HELPER Work Phone: [facility] 05-06-2024 15:14-0400 Systolic blood pressure 92 mm[Hg] Alejandra Podlogar PROCESS SUPERVISOR.PAPER PROCESSING MACHINE HELPER Work Phone: [facility] 05-03-2024 11:29-0400 Body mass index (BMI) [Ratio] 24.81 kg/m2 Alejandra Podlogar PROCESS SUPERVISOR.PAPER PROCESSING MACHINE HELPER Work Phone: [facility] 05-03-2024 11:29-0400 Body weight 71.7 kg Alejandra Podlogar PROCESS SUPERVISOR.PAPER PROCESSING MACHINE HELPER Work Phone: [facility] 05-03-2024 11:29-0400 Diastolic blood pressure 68 mm[Hg] Alejandra Podlogar PROCESS SUPERVISOR.PAPER PROCESSING MACHINE HELPER Work Phone: [facility] 05-03-2024 11:29-0400 Heart rate 73 /min Alejandra Podlogar PROCESS SUPERVISOR.PAPER PROCESSING MACHINE HELPER Work Phone: [facility] 05-03-2024 11:29-0400 Respiratory rate 18 /min Alejandra Podlogar PROCESS SUPERVISOR.PAPER PROCESSING MACHINE HELPER Work Phone: [facility] 05-03-2024 11:29-0400 SaO2% (BldA) [Mass fraction] 96 % Alejandra Podlogar PROCESS SUPERVISOR.PAPER PROCESSING MACHINE HELPER Work Phone: [facility] 05-03-2024 11:29-0400 Systolic blood pressure 132 mm[Hg] Alejandra Podlogar PROCESS SUPERVISOR.PAPER PROCESSING MACHINE HELPER Work Phone: [facility] 05-01-2024 15:09-0400 Body mass index (BMI) [Ratio] 25.09 kg/m2 [facility] PROCESS SUPERVISOR.PAPER PROCESSING MACHINE HELPER Work Phone: [facility] 05-01-2024 15:09-0400 Body temperature 97.9 [degF] [facility] PROCESS SUPERVISOR.PAPER PROCESSING MACHINE HELPER Work Phone: [facility] 05-01-2024 15:09-0400 Body weight 72.5 kg [facility] PROCESS SUPERVISOR.PAPER PROCESSING MACHINE HELPER Work Phone: [facility] 05-01-2024 15:09-0400 Diastolic blood pressure 74 mm[Hg] [facility] PROCESS SUPERVISOR.PAPER PROCESSING MACHINE HELPER Work Phone: [facility] 05-01-2024 15:09-0400 Heart rate 76 /min [facility] PROCESS SUPERVISOR.PAPER PROCESSING MACHINE HELPER Work Phone: [facility] 05-01-2024 15:09-0400 Respiratory rate 19 /min Elijah Sanders PROCESS SUPERVISOR.PAPER PROCESSING MACHINE HELPER Work Phone: [facility] 05-01-2024 15:09-0400 SaO2% (BldA) [Mass fraction] 97 % Elijah Sanders PROCESS SUPERVISOR.PAPER PROCESSING MACHINE HELPER Work Phone: [facility] 05-01-2024 15:09-0400 Systolic blood pressure 130 mm[Hg] Elijah Sanders PROCESS SUPERVISOR.PAPER PROCESSING MACHINE HELPER Work Phone: [facility] 03-20-2024 12:36-0400 Body height 170 cm Analy Masci DO Work Phone: [facility] 03-20-2024 12:36-0400 Body mass index (BMI) [Ratio] 24.72 kg/m2 Analy Masci DO Work Phone: [facility] 03-20-2024 12:36-0400 Body temperature 97.59 [degF] Analy Masci DO Work Phone: [facility] 03-20-2024 12:36-0400 Body weight 71.44 kg Analy Masci DO Work Phone: [facility] 03-20-2024 12:36-0400 Diastolic blood pressure 61 mm[Hg] Analy Masci DO Work Phone: [facility] 03-20-2024 12:36-0400 Heart rate 81 /min Analy Masci DO Work Phone: [facility] 03-20-2024 12:36-0400 SaO2% (BldA) [Mass fraction] 98 % Analy Masci DO Work Phone: [facility] 03-20-2024 12:36-0400 Systolic blood pressure 99 mm[Hg] Analy Masci DO Work Phone: [facility] 03-11-2024 07:14-0400 Body mass index (BMI) [Ratio] 26.3 kg/m2 Tima Tello MD Work Phone: [facility] 03-11-2024 07:14-0400 Body weight 71.7 kg Tima Tello MD Work Phone: [facility] 03-11-2024 07:14-0400 Diastolic blood pressure 64 mm[Hg] Tima Tello MD Work Phone: [facility] 03-11-2024 07:14-0400 Heart rate 83 /min Tima Tello MD Work Phone: [facility] 03-11-2024 07:14-0400 Respiratory rate 18 /min Tima Tello MD Work Phone: [facility] 03-11-2024 07:14-0400 SaO2% (BldA) [Mass fraction] 97 % Tima Tello MD Work Phone: [facility] 03-11-2024 07:14-0400 Systolic blood pressure 130 mm[Hg] Tima Tello MD Work Phone: [facility] 02-29-2024 09:50-0400 Body height 165.1 cm Shaylee Woods APRN.PAPER PROCESSING MACHINE HELPER Work Phone: [facility] 02-29-2024 09:50-0400 Body mass index (BMI) [Ratio] 28.01 kg/m2 Shaylee Woods APRN.PAPER PROCESSING MACHINE HELPER Work Phone: [facility] 02-29-2024 09:50-0400 Body weight 76.34 kg Shaylee Woods APRN.PAPER PROCESSING MACHINE HELPER Work Phone: [facility] 02-29-2024 09:50-0400 Diastolic blood pressure 64 mm[Hg] Shaylee Woods APRN.PAPER PROCESSING MACHINE HELPER Work Phone: [facility] 02-29-2024 09:50-0400 Heart rate 68 /min Shaylee Woods APRN.PAPER PROCESSING MACHINE HELPER Work Phone: [facility] 02-29-2024 09:50-0400 Respiratory rate 16 /min Shaylee Woods APRN.PAPER PROCESSING MACHINE HELPER Work Phone: [facility] 02-29-2024 09:50-0400 Systolic blood pressure 112 mm[Hg] Shaylee Woods APRN.PAPER PROCESSING MACHINE HELPER Work Phone: [facility] 01-29-2024 08:22-0400 Body height 167.6 cm Fred Mckinney APRN.PAPER PROCESSING MACHINE HELPER Work Phone: [facility] Comment on above: Patient reports 01-29-2024 08:22-0400 Body mass index (BMI) [Ratio] 27.57 kg/m2 Fred Mckinney APRN.PAPER PROCESSING MACHINE HELPER Work Phone: [facility] 01-29-2024 08:22-0400 Body weight 77.47 kg Fred Mckinney APRN.PAPER PROCESSING MACHINE HELPER Work Phone: [facility] Comment on above: Fully clothed with shoes on. 01-29-2024 08:22-0400 Diastolic blood pressure 60 mm[Hg] Fred Mckinney APRN.PAPER PROCESSING MACHINE HELPER Work Phone: [facility] 01-29-2024 08:22-0400 Heart rate 75 /min Fred Mckinney APRN.PAPER PROCESSING MACHINE HELPER Work Phone: [facility] 01-29-2024 08:22-0400 SaO2% (BldA) [Mass fraction] 97 % Fred Mckinney APRN.PAPER PROCESSING MACHINE HELPER Work Phone: [facility] 01-29-2024 08:22-0400 Systolic blood pressure 100 mm[Hg] Fred Mckinney APRN.PAPER PROCESSING MACHINE HELPER Work Phone: [facility] 01-16-2024 12:36-0400 Body height 165.1 cm Becky Tineo MD Work Phone: [facility] 01-16-2024 12:36-0400 Body mass index (BMI) [Ratio] 28.32 kg/m2 Becky Tineo MD Work Phone: [facility] 01-16-2024 12:36-0400 Body weight 77.2 kg Becky Tineo MD Work Phone: [facility] 01-16-2024 12:36-0400 Diastolic blood pressure 62 mm[Hg] Becky Tineo MD Work Phone: [facility] 01-16-2024 12:36-0400 Heart rate 65 /min Becky Tineo MD Work Phone: [facility] 01-16-2024 12:36-0400 Systolic blood pressure 128 mm[Hg] Becky Tineo MD Work Phone: [facility] 01-08-2024 13:07-0400 Body height 165.1 cm Nadege Tadeo MD Work Phone: [facility] 01-08-2024 13:07-0400 Body mass index (BMI) [Ratio] 28.79 kg/m2 Nadege Tadeo MD Work Phone: [facility] 01-08-2024 13:07-0400 Body weight 78.47 kg Nadege Tadeo MD Work Phone: [facility] 01-08-2024 13:07-0400 Diastolic blood pressure 64 mm[Hg] Nadege Tadeo MD Work Phone: [facility] 01-08-2024 13:07-0400 Heart rate 68 /min Nadege Tadeo MD Work Phone: [facility] 01-08-2024 13:07-0400 Respiratory rate 16 /min Nadege Tadeo MD Work Phone: [facility] 01-08-2024 13:07-0400 Systolic blood pressure 120 mm[Hg] Nadege Tadeo MD Work Phone: [facility] 12-29-2023 09:31-0400 Body mass index (BMI) [Ratio] 28 kg/m2 Stephen Nunez MD Work Phone: [facility] 12-29-2023 09:31-0400 Body temperature 97.5 [degF] Stephen Nunez MD Work Phone: [facility] 12-29-2023 09:31-0400 Body weight 80.74 kg Stephen Nunez MD Work Phone: [facility] 12-29-2023 09:31-0400 Diastolic blood pressure 90 mm[Hg] Stephen Nunez MD Work Phone: [facility] 12-29-2023 09:31-0400 Heart rate 69 /min Stephen Nunez MD Work Phone: [facility] 12-29-2023 09:31-0400 SaO2% (BldA) [Mass fraction] 98 % Stephen Nunez MD Work Phone: [facility] 12-29-2023 09:31-0400 Systolic blood pressure 131 mm[Hg] Stephen Nunez MD Work Phone: [facility] 12-08-2023 08:41-0400 Diastolic blood pressure 70 mm[Hg] Tima Tello MD Work Phone: [facility] Comment on above: recheck 12-08-2023 08:41-0400 Systolic blood pressure 124 mm[Hg] Tima Tello MD Work Phone: [facility] Comment on above: recheck 12-08-2023 07:45-0400 Body mass index (BMI) [Ratio] 28.04 kg/m2 Tima Tello MD Work Phone: [facility] 12-08-2023 07:45-0400 Body weight 80.83 kg Tima Tello MD Work Phone: [facility] 12-08-2023 07:45-0400 Heart rate 70 /min Tima Tello MD Work Phone: [facility] 12-08-2023 07:45-0400 Respiratory rate 16 /min Tima Tello MD Work Phone: [facility] 12-08-2023 07:45-0400 SaO2% (BldA) [Mass fraction] 97 % Tima Tello MD Work Phone: [facility] 12-06-2023 08:47-0400 Body height 169.8 cm Pulm Wstr Work Phone: [facility] 12-06-2023 08:47-0400 Body mass index (BMI) [Ratio] 28 kg/m2 Pulm Wstr Work Phone: [facility] 12-06-2023 08:47-0400 Body weight 80.74 kg Pulm Wstr Work Phone: [facility] 12-06-2023 08:47-0400 Heart rate 74 /min Pulm Wstr Work Phone: [facility] 12-06-2023 08:47-0400 Respiratory rate 14 /min Pulm Wstr Work Phone: [facility] 12-06-2023 08:47-0400 SaO2% (BldA) [Mass fraction] 97 % Pulm Wstr Work Phone: [facility] 11-29-2023 07:55-0400 Body height 165.1 cm Pacc 1 Work Phone: [facility] 11-29-2023 07:55-0400 Body mass index (BMI) [Ratio] 29.79 kg/m2 Pacc 1 Work Phone: [facility] 11-29-2023 07:55-0400 Body temperature 97.39 [degF] Pacc 1 Work Phone: [facility] 11-29-2023 07:55-0400 Body weight 81.19 kg Pacc 1 Work Phone: [facility] 11-29-2023 07:55-0400 Diastolic blood pressure 80 mm[Hg] Pacc 1 Work Phone: [facility] 11-29-2023 07:55-0400 Heart rate 69 /min Pacc 1 Work Phone: [facility] 11-29-2023 07:55-0400 Respiratory rate 14 /min Pacc 1 Work Phone: [facility] 11-29-2023 07:55-0400 SaO2% (BldA) [Mass fraction] 97 % Pacc 1 Work Phone: [facility] 11-29-2023 07:55-0400 Systolic blood pressure 122 mm[Hg] Pacc 1 Work Phone: [facility] 11-06-2023 08:25-0400 Body height 167.6 cm Charo Tsai APRN.CNP Work Phone: [facility] 11-06-2023 08:25-0400 Body weight 80.02 kg Charo Fowler PROCESS SUPERVISOR.PAPER PROCESSING MACHINE HELPER Work Phone: [facility] 11-06-2023 08:25-0400 Diastolic blood pressure 82 mm[Hg] Charo Fowler PROCESS SUPERVISOR.PAPER PROCESSING MACHINE HELPER Work Phone: [facility] 11-06-2023 08:25-0400 Heart rate 74 /min Charo Fowler PROCESS SUPERVISOR.PAPER PROCESSING MACHINE HELPER Work Phone: [facility] 11-06-2023 08:25-0400 Respiratory rate 16 /min Charo Fowler PROCESS SUPERVISOR.PAPER PROCESSING MACHINE HELPER Work Phone: [facility] 11-06-2023 08:25-0400 SaO2% (BldA) [Mass fraction] 96 % Charo Fowler PROCESS SUPERVISOR.PAPER PROCESSING MACHINE HELPER Work Phone: [facility] 11-06-2023 08:25-0400 Systolic blood pressure 110 mm[Hg] Charo Fowler PROCESS SUPERVISOR.PAPER PROCESSING MACHINE HELPER Work Phone: [facility] 12-02-2022 10:10-0400 Body temperature 97.9 [degF] Rosario Lalitha PROCESS SUPERVISOR.PAPER PROCESSING MACHINE HELPER Work Phone: [facility] 12-02-2022 10:10-0400 Body weight 75.75 kg Rosario Lalitha PROCESS SUPERVISOR.PAPER PROCESSING MACHINE HELPER Work Phone: [facility] 12-02-2022 10:10-0400 Diastolic blood pressure 62 mm[Hg] Rosario Lalitha PROCESS SUPERVISOR.PAPER PROCESSING MACHINE HELPER Work Phone: [facility] 12-02-2022 10:10-0400 Heart rate 90 /min Rosario Lalitha PROCESS SUPERVISOR.PAPER PROCESSING MACHINE HELPER Work Phone: [facility] 12-02-2022 10:10-0400 Respiratory rate 18 /min Rosario Lalitha PROCESS SUPERVISOR.PAPER PROCESSING MACHINE HELPER Work Phone: [facility] 12-02-2022 10:10-0400 SaO2% (BldA) [Mass fraction] 98 % Rosario Lalitha PROCESS SUPERVISOR.PAPER PROCESSING MACHINE HELPER Work Phone: [facility] 12-02-2022 10:10-0400 Systolic blood pressure 120 mm[Hg] Rosario Lalitha KABA.PAPER PROCESSING MACHINE HELPER Work Phone: [facility] 11-01-2022 13:10-0400 Body height 165.1 cm Becky Tineo MD Work Phone: [facility] 11-01-2022 13:10-0400 Body mass index (BMI) [Ratio] 28.96 kg/m2 Becky Tineo MD Work Phone: [facility] 11-01-2022 13:10-0400 Body weight 78.93 kg Becky Tineo MD Work Phone: [facility] 11-01-2022 13:10-0400 Diastolic blood pressure 60 mm[Hg] Becky Tineo MD Work Phone: [facility] 11-01-2022 13:10-0400 Heart rate 69 /min Becky Tineo MD Work Phone: [facility] 11-01-2022 13:10-0400 SaO2% (BldA) [Mass fraction] 96 % Becky Tineo MD Work Phone: [facility] 11-01-2022 13:10-0400 Systolic blood pressure 102 mm[Hg] Becky Tineo MD Work Phone: [facility] 12-07-2021 15:22-0400 Diastolic blood pressure 68 mm[Hg] Mi Nurse Work Phone: [facility] 12-07-2021 15:22-0400 Heart rate 80 /min Mi Nurse Work Phone: [facility] 12-07-2021 15:22-0400 Systolic blood pressure 106 mm[Hg] Mi Nurse Work Phone: [facility] 11-23-2021 17:01-0400 Diastolic blood pressure 70 mm[Hg] Tima Tello MD Work Phone: [facility] 11-23-2021 17:01-0400 Systolic blood pressure 132 mm[Hg] Tima Tello MD Work Phone: [facility] 11-23-2021 16:42-0400 Body weight 81.83 kg Tima Tello MD Work Phone: [facility] 11-23-2021 16:42-0400 Heart rate 71 /min Tima Tello MD Work Phone: [facility] 11-23-2021 16:42-0400 Respiratory rate 18 /min Tima Tello MD Work Phone: [facility] 11-23-2021 16:42-0400 SaO2% (BldA) [Mass fraction] 99 % Tima Tello MD Work Phone: [facility] Encounters Encounter Date Encounter Type Care Provider Facility Start: 06-12-2025 ambulatory [facility] Facility[facility] Start: 06-03-2025 End: 06-03-2025 ambulatory TIMA TELLO Facility:[facility] Start: 05-14-2025 End: 05-14-2025 ambulatory TIMA TELLO Facility:[facility] Start: 04-21-2025 End: 04-21-2025 ambulatory GERMANIA Arnulfo TELLO Facility:[facility] Start: 04-15-2025 End: 04-15-2025 ambulatory TIMA TELLO Facility:[facility] Start: 04-15-2025 End: 04-15-2025 Patient encounter procedure Saray Marinelli APRN.CNP Work Phone: General Surgery Comment on above: RUQ pain (Primary Dx ) Infrarenal abdominal aortic aneurysm (AAA) without rupture (Primary Dx); Atherosclerotic ulcer of aorta; Abdominal aortic aneurysm (AAA) without rupture, unspecified part; Bilateral carotid artery stenosis; Peripheral arterial disease; Infrarenal abdominal aortic aneurysm, without rupture Start: 04-15-2025 End: 04-15-2025 ambulatory TIMA TELLO Facility:[facility] Start: 04-14-2025 End: 04-14-2025 Adela Tineo MD Work Phone: [facility] Comment on above: Coronary artery dise ase involving kaw coronary 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 Start: 04-11-2025 End: 04-12-2025 Subsequent hospital visit by physician [facility] Cat Scan Comment on above: Melena [K92.1] Start: 04-09-2025 End: 04-09-2025 Patient encounter procedure Analy Dumont DO Work Phone: Hematology/Oncology Start: 04-09-2025 End: 04-09-2025 ambulatory Analy Dumont DO Work Phone: Hematology/Oncology Comment on above: Malignant neoplasm o f upper lobe of right lung (HCC) (Primary Dx); Malignant neoplasm of unspecified part of unspecified bronchus or lung (HCC); Chronic post-thoracotomy pain Start: 04-08-2025 [facility] Start: 04-08-2025 End: 04-08-2025 Subsequent hospital visit by physician Mae Robles MD Work Phone: Ambulatory Surgery Comment on above: Chronic constipation [K59.09] Start: 03-27-2025 [facility] Facility:[facility] Start: 03-27-2025 End: 03-27-2025 [facility] Work Phone: [facility] Comment on above: Nausea [R11.0] Start: 03-26-2025 End: 03-26-2025 Office outpatient visit 15 minutes Gisselle Phelan APRN.PAPER PROCESSING MACHINE HELPER Work Phone: Pulmonary Medicine Comment on above: Pulmonary air trappi ng (Primary Dx); Malignant neoplasm of upper lobe of right lung (HCC); Former cigarette smoker Start: 03-26-2025 End: 03-26-2025 ambulatory [facility] Facility:[facility] Start: 03-21-2025 End: 03-21-2025 Patient encounter procedure Saray Marinelli APRN.PAPER PROCESSING MACHINE HELPER Work Phone: General Surgery Comment on above: Nausea (Primary Dx); Chronic constipation; Melena; Heart burn; RUQ abdominal pain Start: 03-21-2025 End: 03-21-2025 ambulatory TIMA TELLO Facility:[facility] Start: 03-20-2025 End: 03-20-2025 Follow-up encounter Tima Tello MD Work Phone: [facility] Comment on above: Results Start: 03-19-2025 End: 03-19-2025 ambulatory TIMA TELLO Facility:[facility] Start: 03-19-2025 End: 03-19-2025 Patient encounter procedure Tima Tello MD Work Phone: [facility] Comment on above: Chronic constipation (Primary Dx); Melena; Generalized abdominal pain Start: 03-19-2025 End: 03-19-2025 ambulatory TIMA TELLO Facility:[facility] Start: 03-18-2025 End: 03-18-2025 ambulatory Chad Davies MA [facility] [place] Start: 03-18-2025 End: 03-18-2025 Patient encounter procedure [facility] [place] Comment on above: Population Health Na vigation [...] Phone: Hematology/Oncology Start: 03-17-2025 ambulatory TIMA TELLO Facility:[facility] Start: 03-12-2025 End: 03-12-[address] Morro Tello MD Work Phone: [facility] Start: 03-12-2025 End: 03-12-[address] Jose Valderrama MD -Laboratory [place] Work Phone: Start: 03-11-2025 End: 03-11-2025 Subsequent hospital visit by physician Ct [facility] ([facility]) Work Phone: Cat Scan Comment on above: Malignant neoplasm o f unspecified part of unspecified bronchus or lung (HCC) [C34.90] Start: 03-11-2025 End: 03-12-2025 ambulatory TIMA TELLO Facility:[facility] Start: 01-12-2025 End: 01-13-2025 Refill Yara Flowers APRN - PAPER PROCESSING MACHINE HELPER Work Phone: [facility] Cardiac Thoracic Vascular Intensive Care Unit CTV ICU T1 Start: 12-16-2024 End: 12-16-2024 Refill Yara Flowers PROCESS SUPERVISOR - PAPER PROCESSING MACHINE HELPER Work Phone: [facility] [place] Start: 11-13-2024 End: 11-13-2024 Office outpatient visit 25 minutes Becky Tineo MD Work Phone: [facility] Comment on above: Coronary artery dise ase involving kaw coronary artery of kaw heart without angina pectoris (Primary Dx); Mixed hyperlipidemia; Essential hypertension; S/P CABG (coronary artery bypass graft) Start: 11-13-2024 End: 11-13-2024 ambulatory BECKY TINEO [facility] Start: 10-25-2024 End: 10-25-2024 ambulatory [facility] Start: 10-20-2024 End: 10-21-2024 Refill Yara Flowers PROCESS SUPERVISOR - PAPER PROCESSING MACHINE HELPER Work Phone: [facility] Cardiac Thoracic Vascular Intensive Care Unit CTV ICU T1 Start: 10-09-2024 End: 10-09-2024 Postop follow up visit related to original px Yara Flowers APRN - PAPER PROCESSING MACHINE HELPER Work Phone: [facility] [place] Comment on above: S/P CABG (coronary a rtery bypass graft) (Primary Dx) Start: 10-09-2024 End: 10-09-2024 ambulatory YARA FLOWERS [facility] Start: 10-01-2024 End: 10-01-2024 ambulatory Ivy Gonzalez [facility] Start: 09-24-2024 End: 09-24-2024 ambulatory TIMA TELLO Facility:[facility] Start: 09-24-2024 End: 09-24-2024 Office outpatient visit 15 minutes Gisselle Phelan APRN.PAPER PROCESSING MACHINE HELPER Work Phone: Pulmonary Medicine Comment on above: Pulmonary air trappi ng (Primary Dx); Malignant neoplasm of upper lobe of right lung (HCC); Former cigarette smoker Start: 09-17-2024 End: 09-17-2024 ambulatory TIMA TELLO Facility:[facility] Start: 09-17-2024 End: 09-17-2024 Patient encounter procedure Alejandra Viramontes APRN.PAPER PROCESSING MACHINE HELPER Work Phone: [facility] Comment on above: Essential hypertensi on (Primary Dx); Hyperlipidemia, mixed; Coronary artery disease involving kaw coronary artery of kaw heart without angina pectoris; PAD (peripheral artery disease) (HCC); S/P lobectomy of lung; S/P triple vessel bypass; Primary lung adenocarcinoma, right (HCC) Start: 09-13-2024 ambulatory TIMA TELLO Facility:[facility] Start: 09-12-2024 End: 09-12-2024 Follow-up encounter Hakan Blackwell Work Phone: Hematology/Oncology Start: 09-09-2024 End: 09-09-2024 Postop follow up visit related to original px Yara Flowers PROCESS SUPERVISOR - PAPER PROCESSING MACHINE HELPER Work Phone: [facility] [place] Comment on above: S/P CABG (coronary a rtery bypass graft) (Primary Dx); Essential hypertension; Atrial fibrillation, unspecified type (HCC) Start: 09-09-2024 End: 09-09-2024 ambulatory YARA FLOWERS [facility] Start: 09-09-2024 End: 09-09-2024 ambulatory Hakan Blackwell Work Phone: Hematology/Oncology Comment on above: Malignant neoplasm o f unspecified part of unspecified bronchus or lung (HCC) (Primary Dx); S/P lobectomy of lung Start: 09-09-2024 End: 09-09-2024 Patient encounter procedure Hakan Blackwell Work Phone: Hematology/Oncology Start: 09-06-2024 End: 09-06-2024 ambulatory TIMA TELLO Facility:[facility] Start: 09-06-2024 End: 09-06-2024 Subsequent hospital visit by physician Ct [facility] ([facility]) Work Phone: Cat Scan Comment on above: Malignant neoplasm o f unspecified part of unspecified bronchus or lung (HCC) [C34.90] Start: 09-02-2024 End: 09-02-2024 ambulatory TIMA TELLO Facility:[facility] Start: 08-28-2024 End: 08-28-2024 Postop follow up visit related to original px Yara Flowers PROCESS SUPERVISOR - PAPER PROCESSING MACHINE HELPER Work Phone: [facility] [place] Comment on above: S/P CABG (coronary a rtery bypass graft) (Primary Dx); Essential hypertension; Atrial fibrillation, unspecified type (HCC) Start: 08-28-2024 End: 08-28-2024 ambulatory YARA FLOWERS [facility] Start: 08-26-2024 End: 08-26-2024 Adela Tineo MD Work Phone: [facility] [place] Comment on above: Coronary artery dise ase involving kaw coronary artery of kaw heart without angina pectoris Start: 08-20-2024 End: 08-20-2024 ambulatory Ivy Gonzalez [facility] Start: 08-16-2024 End: 08-16-2024 ambulatory Irma Grant RN [facility] Start: 08-14-2024 End: 08-14-2024 Postop follow up visit related to original px Yara Flowers PROCESS SUPERVISOR - PAPER PROCESSING MACHINE HELPER Work Phone: [facility] [place] Comment on above: S/P CABG (coronary a rtery bypass graft) (Primary Dx); 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); Essential hypertension; Atrial fibrillation, unspecified type (HCC) Start: 08-14-2024 End: 08-14-2024 ambulatory YARA FLOWERS [facility] Start: 08-12-2024 End: 08-12-2024 Subsequent hospital visit by physician Xr [facility] [place] [facility] Work Phone: Radiology Comment on above: DDD (degenerative di sc disease), cervical [M50.30] Start: 08-12-2024 End: 08-12-2024 Patient encounter procedure Nan Ng PA-C Work Phone: Orthopaedics Comment on above: DDD (degenerative di sc disease), cervical (Primary Dx); Chronic left shoulder pain Start: 08-12-2024 End: 08-12-2024 ambulatory TIMA TELLO Facility:[facility] Start: 08-12-2024 End: 08-12-2024 Subsequent hospital visit by physician Xr [facility] [place] [facility] Work Phone: Radiology Comment on above: Pain [R52] Start: 08-09-2024 End: 08-09-2024 Orders Only Nandra Ng PA-C Work Phone: [facility] [place] Comment on above: Pain (Primary Dx) Start: 08-06-2024 End: 08-07-2024 Telephone encounter Brooklynn Martinez DO Work Phone: [facility] [place] Comment on above: Release of Informati on Start: 07-25-2024 End: 07-25-2024 Anesthesia consultation Fredi Buchanan MD Work Phone: [facility] MA[facility] OR Start: 07-25-2024 End: 07-31-2024 Evaluation and management of inpatient Brooklynn Juan GOODMAN Work Phone: [facility] Cardiac Thoracic Vascular Intensive Care Unit CTV ICU T1 Comment on above: S/P CABG (coronary a rtery bypass graft) (Primary Dx); 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); Chronic total occlusion of coronary artery; Chronic left shoulder pain Start: 07-18-2024 End: 07-18-2024 Subsequent hospital visit by physician Meng Xr Exam Room 1 [facility] X-ray Imaging Comment on above: Arrived Start: 07-18-2024 End: 07-18-2024 ambulatory BROOKLYNN MARTINEZ [facility] Start: 07-18-2024 End: 07-18-2024 ambulatory BROOKLYNN MARTINEZ [facility] Start: 07-18-2024 End: 07-18-2024 Encounter for other preprocedural examination BROOKLYNN MARTINEZ [facility] Start: 07-12-2024 End: 07-12-2024 Telephone encounter Brooklynn Martinez DO Work Phone: [facility] [place] Comment on above: Surgery Scheduling Start: 07-11-2024 ambulatory Morro Tello [facility] Start: 07-10-2024 End: 07-10-2024 ambulatory BROOKLYNN MARTINEZ [facility] Start: 07-05-2024 End: 07-05-2024 ambulatory BECKY TINEO [facility] Start: 07-05-2024 End: 07-05-2024 Subsequent hospital visit by physician Becky Tineo MD Work Phone: [facility] Comment on above: 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); Abnormal stress echocardiogram Start: 07-02-2024 End: 07-02-2024 ambulatory Horace Martinez APRN - PAPER PROCESSING MACHINE HELPER Work Phone: [facility] [place] Start: 06-28-2024 End: 06-28-2024 ambulatory TIMA TELLO Facility:[facility] Start: 06-25-2024 End: 06-25-2024 Subsequent hospital visit by physician Horace Martinez APRN - PAPER PROCESSING MACHINE HELPER Work Phone: [facility] [address] [facility] Comment on above: Coronary artery dise ase involving kaw coronary artery of kaw heart with angina pectoris (HCC); Chest pain, unspecified type Start: 06-25-2024 End: 06-25-20[facility] Start: 06-24-[facility]24 End: 06-25-2024 Telephone encounter Horace Becker CNP Work Phone[facility] Comment on above: Orders Start: 06-14-2024 ambulatory Morro Tello Faci lity:[facility] Start: 06-14-2024 End: 06-14-2024 ambulatory Morro Tello Facility:[facility] Start: 06-11-2024 End: 06-11-2024 Telephone encounter Fortunato Jurado APRN.PAPER PROCESSING MACHINE HELPER Work Phone: [facility] Comment on above: Results Start: 06-11-2024 End: 06-11-2024 Office outpatient visit 25 minutes Horace Martinez APRN - PAPER PROCESSING MACHINE HELPER Work Phone: [facility] Comment on above: Coronary artery dise ase involving kaw coronary artery of kaw heart with angina pectoris (HCC) (Primary Dx); 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); Coronary artery disease involving kaw coronary artery of kaw heart without angina pectoris; History of heart artery stent; Left shoulder pain, unspecified chronicity; Essential hypertension; Mixed hyperlipidemia; PAD (peripheral artery disease) (HCC) Coronary artery dise ase involving kaw coronary artery of kaw heart with angina pectoris (HCC) (Primary Dx); 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); Coronary artery disease involving kaw coronary artery of kaw heart without angina pectoris; History of heart artery stent; Left shoulder pain, unspecified chronicity; Essential hypertension; Mixed hyperlipidemia; PAD (peripheral artery disease) (HCC); Chest pain, unspecified type Start: 06-11-2024 End: 06-11-2024 ambulatory [facility] Start: 06-10-2024 End: 06-10-2024 ambulatory TIMA TELLO Facility:[facility] Start: 06-10-2024 End: 06-10-2024 Office outpatient visit 25 minutes Fortunato Jurado APRN.PAPER PROCESSING MACHINE HELPER Work Phone: Family Medicine [place] Comment on above: Mixed hyperlipidemia (Primary Dx); Essential hypertension; PAD (peripheral artery disease) (HCC); Coronary artery disease involving kaw coronary artery of kaw heart without angina pectoris Start: 06-08-2024 End: 06-08-2024 [facility] Start: 06-08-2024 End: 06-08-2024 Patient [...] End: 05-06-2024 Patient encounter procedure Alejandra Viramontes APRN.PAPER PROCESSING MACHINE HELPER Work Phone: [facility] Medicine [place] Comment on above: Left leg cellulitis (Primary Dx) Start: 05-06-2024 End: 05-06-2024 Telephone encounter Tima Tello MD Work Phone: [facility] Medicine [place] Comment on above: fax referral to Katherine Flores Start: 05-03-2024 End: 05-03-2024 Patient encounter procedure Alejandra Viramontes PROCESS SUPERVISOR.PAPER PROCESSING MACHINE HELPER Work Phone: Family Medicine [place] Comment on above: Left leg cellulitis (Primary Dx) Start: 05-01-2024 End: 05-01-2024 Office outpatient visit 25 minutes Elijah Sanders PROCESS SUPERVISOR.PAPER PROCESSING MACHINE HELPER Work Phone: [facility] Comment on above: Cellulitis of left l ower extremity (Primary Dx) Start: 05-01-2024 End: 05-01-2024 Telephone encounter Tima Tello MD Work Phone: Family Medicine [place] Comment on above: Patient Question Start: 04-04-2024 End: 04-05-2024 Telephone encounter Tima Tello MD Work Phone: [facility] Comment on above: Results Start: 03-20-2024 End: [...] Telephone encounter Morro Tello MD Work Phone: [facility] Comment on above: Results Start: 03-11-2024 End: 03-11-2024 Subsequent hospital visit by physician Jose Elias [facility] [place] Work Phone: Radiology Comment on above: Pain of toe of right foot [M79.674] Start: 03-11-2024 End: 03-11-2024 Patient encounter procedure Tima Tello MD Work Phone: [facility] Comment on above: Cold extremity witho ut peripheral vascular disease (Primary Dx); Other specified symptoms and signs involving the circulatory and respiratory systems; Pain of toe of right foot; Primary lung adenocarcinoma, right (HCC); S/P lobectomy of lung; Coronary artery disease involving kaw coronary artery of kaw heart without angina pectoris; Essential hypertension Start: 03-04-2024 Telephone encounter Charlene fernandez APRN.PAPER PROCESSING MACHINE HELPER Work Phone: [facility] Comment on above: Referral Information Start: 02-29-2024 ambulatory [facility] Facility :[facility] Start: 02-29-2024 End: 02-29-2024 Subsequent hospital visit by physician Xr [facility] [facility] Comment on above: S/P lobectomy of katalina g [Z90.2] Start: 02-29-2024 End: 02-29-2024 Patient encounter procedure Shaylee Woods APRN.PAPER PROCESSING MACHINE HELPER Work Phone: [facility] Comment on above: S/P lobectomy of katalina g (Primary Dx); Adenocarcinoma, lung, right (HCC) Start: 02-29-2024 End: 02-29-2024 ambulatory SHAYLEE WOODS Facility:[facility] Start: 02-22-2024 Telephone encounter Nadege caba MD Work Phone: [facility] Comment on above: Patient Update (Pain medication) Start: 02-20-2024 Telephone encounter Chavez Almodovar [facility] Comment on above: [facility] Transition of Care Start: 02-17-2024 Telephone encounter Chavez Almodovar [facility] Comment on above: [facility] Transition of Care Start: 02-16-2024 ambulatory Mackenzie salas RN NURSE BUCKLE [employer]INGER Comment on above: Medication Request Start: 02-16-2024 Telephone encounter Chavez Almodovar [facility] Comment on above: [facility] Transition of Care Start: 02-15-2024 Telephone encounter Chavez Almodovar [facility] Comment on above: [facility] Transition of Care Start: 02-09-2024 End: 02-14-2024 Evaluation and management of inpatient NADEGE TADEO Facility:[facility] Start: 01-30-2024 End: 01-30-2024 Refshawnee Tineo MD Work Phone: [facility] Comment on above: Coronary artery dise ase involving kaw coronary artery of kaw heart without angina pectoris Start: 01-29-2024 End: 01-29-2024 ambulatory TIMA TELLO Facility:[facility] Start: 01-29-2024 Encounter for other preprocedural examination TIMA TELLO [facility] Start: 01-29-2024 End: 01-29-2024 Patient encounter procedure Fred Mckinney APRN.PAPER PROCESSING MACHINE HELPER Work Phone: [facility] Comment on above: Right upper lobe pul monary nodule (Primary Dx); Coronary artery disease involving kaw coronary artery of kaw heart without angina pectoris; H/O heart artery stent; Essential hypertension; Pre-op exam Start: 01-29-2024 End: 01-29-2024 Preprocedural examination done Fred Mckinney APRN.PAPER PROCESSING MACHINE HELPER Work Phone: [facility] Start: 01-29-2024 End: 01-29-2024 ambulatory [facility] Facility:[facility] Start: 01-27-2024 End: 01-27-2024 Telephone encounter Stu Mcdermott MD Work Phone: [facility] Comment on above: Med Refill Start: 01-18-2024 Patient encounter status Nadege Tadeo MD Work Phone: [facility] Start: 01-18-2024 Telephone encounter Nadege caba MD Work Phone: [facility] Comment on above: Schedule Surgery; Or ders Start: 01-16-2024 End: 01-16-2024 Office outpatient visit 25 minutes Becky Tineo MD Work Phone: [facility] Comment on above: Mixed hyperlipidemia (Primary Dx); Coronary artery disease involving kaw coronary artery of kaw heart without angina pectoris; Essential hypertension Start: [...] (Primary Dx) Start: 01-08-2024 End: 01-08-2024 ambulatory [place] [facility] Start: 12-29-2023 Telephone encounter Stephen dAams MD Work Phone: Radiation Oncology Comment on above: Appointment Start: 12-29-2023 End: 12-29-2023 Patient encounter procedure Stephen Nunez MD Work Phone: Radiation Oncology Comment on above: Multiple lung nodule s; Former tobacco use Start: 12-22-2023 Telephone encounter Charo rodríguez PROCESS SUPERVISOR.PAPER PROCESSING MACHINE HELPER Work Phone: [facility] Comment on above: Results Start: 12-15-2023 End: 12-15-2023 ambulatory TIMA GUARDADO Facility:[facility] Start: 12-14-2023 End: 12-14-2023 ambulatory Modesta Rivera MD Work Phone: Pulmonary Medicine Comment on above: Lung nodule (Primary Dx); Former tobacco use; Pre-operative respiratory examination Start: 12-14-2023 End: 12-14-2023 Repair venous blockage Modesta Rivera MD Work Phone: [facility] Start: 12-14-2023 End: 12-14-2023 Telemedicine consultation with patient Modesta Rivera MD Work Phone: Pulmonary Medicine Start: 12-13-2023 End: 12-13-2023 [facility] Work Phone: Cat Scan Comment on above: Lung nodule [R91.1] Start: 12-11-2023 Telephone encounter Charo rodríguez PROCESS SUPERVISOR.PAPER PROCESSING MACHINE HELPER Work Phone: Pulmonary Medicine Comment on above: Results Start: 12-08-2023 End: 12-08-2023 Patient encounter procedure Tima Tello MD Work Phone: [facility] [place] Comment on above: Medicare annual well ness visit, subsequent (Primary Dx); Essential hypertension; Mixed hyperlipidemia; Coronary artery disease involving kaw coronary artery of kaw heart without angina pectoris; Thrombocytopenia (HCC); Multiple lung nodules on CT; Tobacco use disorder Start: 12-06-2023 End: 12-06-2023 ambulatory Pulm Lab [facility] Work Phone: PULM LAB [facility] Comment on above: Spirometry Start: 12-06-2023 End: 12-06-2023 Patient encounter procedure Pulm Lab [facility] Work Phone: PULM LAB [facility] Start: 11-29-2023 End: 11-29-2023 Admission to establishment [facility] [place] [facility] Work Phone: Pre Anesthesia Start: 11-29-2023 End: 11-29-2023 Anesthesia consultation [facility] [place] 1 Work Phone: Pre Anesthesia Comment on above: Pre-op evaluation (P rimary Dx); Mixed hyperlipidemia; Essential hypertension; Coronary artery disease involving kaw coronary artery of kaw heart without angina pectoris; Abdominal aortic aneurysm (AAA) without rupture, unspecified part (HCC); Thrombocytopenia (HCC); At risk for sleep apnea; Penicillin allergy; Personal history of allergy to penicillin Start: 11-29-2023 End: 11-29-2023 Preprocedural examination done [facility] [place] [facility] Work Phone: [facility] Work Phone: Start: 11-24-2023 Telephone encounter Charo Lang rpsbrandon PROCESS SUPERVISOR.PAPER PROCESSING MACHINE HELPER Work Phone: Pulmonary Medicine Start: 11-20-2023 Telephone encounter Charo rodríguez PROCESS SUPERVISOR.PAPER PROCESSING MACHINE HELPER Work Phone: Pulmonary Medicine Comment on above: Appointment Start: 11-14-2023 Telephone encounter Charo rodríguez PROCESS SUPERVISOR.PAPER PROCESSING MACHINE HELPER Work Phone: Pulmonary Medicine Comment on above: Appointment Start: 11-13-2023 ambulatory Rene gregorio MD Work Phone: Pulmonology Comment on above: Bronchoscopy Schedul ing Start: 11-13-2023 Patient encounter procedure Rene More MD Work Phone: Pulmonology Start: 11-08-2023 Telephone encounter Charo rodríguez PROCESS SUPERVISOR.PAPER PROCESSING MACHINE HELPER Work Phone: Pulmonary Medicine Comment on above: Results Start: 11-06-2023 End: 11-06-2023 Patient encounter procedure Charo Tsai PROCESS SUPERVISOR.PAPER PROCESSING MACHINE HELPER Work Phone: Pulmonary Medicine Comment on above: Multiple lung nodule s (Primary Dx); Former tobacco use; Lung nodules Start: 11-06-2023 End: 11-06-2023 Subsequent hospital visit by physician Ct [facility] ([facility]) Work Phone: Cat Scan Comment on above: Lung nodules [R91.8] Start: 06-13-2023 Telephone encounter Morro Tello MD Work Phone: [facility] Comment on above: Results Start: 06-13-2023 End: 06-13-2023 Subsequent hospital visit by physician [facility] 2 Work Phone: Radiology Comment on above: Abdominal aortic ane urysm (AAA) without rupture, unspecified part (HCC) [I71.40] Start: 12-03-2022 Telephone encounter Hugo MARTINEZ Work Phone: [facility] Comment on above: Results Page out Start: 12-02-2022 End: 12-02-2022 Patient encounter procedure Rosario Doty SESAR.PAPER PROCESSING MACHINE HELPER Work Phone: [place] [facility] Comment on above: URI with cough and c ongestion (Primary Dx) Start: 11-01-2022 End: 11-01-2022 Office outpatient visit 25 minutes Becky Tineo MD Work Phone: [facility] Comment on above: Hyperlipidemia, unsp ecified hyperlipidemia type (Primary Dx); Coronary artery disease involving kaw coronary artery of kaw heart without angina pectoris; Essential hypertension Start: 08-23-2022 End: 08-23-2022 ambulatory [facility] Work Phone: Start: 08-23-2022 End: 08-23-2022 Patient encounter procedure [facility] Start: 12-08-2021 Telephone encounter Morro Tello MD Work Phone: [facility] [facility] Comment on above: Results Start: 12-07-2021 End: 12-07-2021 Nursing evaluation of patient and report Mi Nurse Work Phone: [facility] Comment on above: Essential hypertensi on (Primary Dx) Start: 12-07-2021 Telephone encounter Morro Tello MD Work Phone: [facility] Comment on above: Blood Pressure Check Start: 11-23-2021 End: 11-23-2021 Patient encounter procedure Tima Tello MD Work Phone: [facility] Comment on above: Coronary artery dise ase involving kaw coronary artery of kaw heart without angina pectoris (Primary Dx); Essential hypertension; Thrombocytopenia (HCC); Psoriasis; History of tobacco use; Screening for HIV (human immunodeficiency virus) Start: 09-30-2020 End: 09-30-2020 Subsequent hospital visit by physician Becky Tineo Work Phone: [facility] [address] [facility] Comment on above: Coronary artery dise ase involving kaw coronary artery of kaw heart without angina pectoris; Essential hypertension Start: 10-01-2018 End: 10-02-2018 [facility] Facility:A Start: 09-27-2018 Patient encounter procedure [facility] Facility:A Procedures Date Procedure Procedure Detail Performing Clinician Start: 04-11-2025 Ct abdomen & pelvis w/contrast material Tima Tello MD Work Phone: Start: 04-08-2025 Colonoscopy flx dx w/collj spec when pfrmd Saray Marinelli APRN.PAPER PROCESSING MACHINE HELPER Work Phone: Start: 04-08-2025 Esophagogastroduodenoscopy transoral diagnostic Saray Marinelli APRN.PAPER PROCESSING MACHINE HELPER Work Phone: Start: 04-08-2025 Colonoscopy Mae Robles MD Work Phone: Start: 03-27-2025 Us abdominal real time w/image limited Saray Marinelli APRN.PAPER PROCESSING MACHINE HELPER Work Phone: Start: 03-12-2025 In-vitro immunologic test [...] interferon gamma. Chemiluminescence immunoassaymethodologyPerformed at: - [facility] [address] [id number] Director: Curt Taylor PhD, Phone: [phone] Start: 11-13-2024 Ecg routine ecg w/least 12 lds trcg only w/o i&r Becky Tineo MD Work Phone: Start: 09-02-2024 Lipid 1996 panel - Serum or Plasma Ct (I -Stat) Work Phone: Start: 08-12-2024 End: 08-12-2024 Radex spine cervical 4 or 5 views Nan Ng PA-C Work Phone: Start: 07-31-2024 Radiologic exam chest single view Ez Jacksoner PROCESS SUPERVISOR - PAPER PROCESSING MACHINE HELPER Work Phone: Start: 07-31-2024 Basic metabolic panel calcium total Andr ew Louie PROCESS SUPERVISOR - PAPER PROCESSING MACHINE HELPER Work Phone: Start: 07-30-2024 Radiologic exam chest single view Ez Garcia PROCESS SUPERVISOR - PAPER PROCESSING MACHINE HELPER Work Phone: Start: 07-30-2024 Basic metabolic panel calcium total Andr ew Louie PROCESS SUPERVISOR - PAPER PROCESSING MACHINE HELPER Work Phone: Start: 07-29-2024 End: 07-29-2024 Basic metabolic panel calcium total Andr ew Garcia PROCESS SUPERVISOR - PAPER PROCESSING MACHINE HELPER Work Phone: Start: 07-29-2024 Radiologic exam chest single view Ez Garcia PROCESS SUPERVISOR - PAPER PROCESSING MACHINE HELPER Work Phone: Start: 07-28-2024 Basic metabolic panel calcium total Neha rebeca Fitch PROCESS SUPERVISOR - PAPER PROCESSING MACHINE HELPER Work Phone: Start: 07-28-2024 Ecg routine ecg w/least 12 lds trcg only w/o i&r Charlene Fitch PROCESS SUPERVISOR - PAPER PROCESSING MACHINE HELPER Work Phone: Start: 07-28-2024 Radiologic exam chest single view Ez Garcia PROCESS SUPERVISOR - PAPER PROCESSING MACHINE HELPER Work Phone: Start: 07-28-2024 Basic metabolic panel calcium total Andr lorelei Garcia PROCESS SUPERVISOR - PAPER PROCESSING MACHINE HELPER Work Phone: Start: 07-27-2024 Blood count complete automated Charlene Mayers Constantine PROCESS SUPERVISOR - PAPER PROCESSING MACHINE HELPER Work Phone: Start: 07-27-2024 Glucose quantitative blood xcpt reagent strip Brooklynn Martinez DO Work Phone: Start: 07-27-2024 Ecg routine ecg w/least 12 lds trcg only w/o i&r Ez Garcia PROCESS SUPERVISOR - PAPER PROCESSING MACHINE HELPER Work Phone: Start: 07-27-2024 Radiologic exam chest single view Ez Garcia PROCESS SUPERVISOR - PAPER PROCESSING MACHINE HELPER Work Phone: Start: 07-26-2024 Glucose quantitative blood xcpt reagent strip Brooklynn Martinez DO Work Phone: Start: 07-26-2024 End: 07-27-2024 Basic metabolic panel calcium total Neha rebeca Fitch PROCESS SUPERVISOR - PAPER PROCESSING MACHINE HELPER Work Phone: Start: 07-26-2024 Glucose quantitative blood xcpt reagent strip Brooklynn Martinez DO Work Phone: Start: 07-26-2024 Radiologic exam chest single view Ez Garcia PROCESS SUPERVISOR - PAPER PROCESSING MACHINE HELPER Work Phone: Start: 07-26-2024 Blood count complete automated Ez perez PROCESS SUPERVISOR - PAPER PROCESSING MACHINE HELPER Work Phone: Start: 07-26-2024 Ecg routine ecg w/least 12 lds trcg only w/o i&r Ez Garcia PROCESS SUPERVISOR - PAPER PROCESSING MACHINE HELPER Work Phone: Start: 07-26-2024 Glucose quantitative blood xcpt reagent strip Brooklynn Martinez DO Work Phone: Start: 07-26-2024 End: 07-26-2024 Glucose quantitative blood xcpt reagent strip Brooklynn Juan DO Work Phone: Start: 07-26-2024 End: 07-26-2024 Basic metabolic panel calcium total Andr ew Louie PROCESS SUPERVISOR - PAPER PROCESSING MACHINE HELPER Work Phone: Start: 07-25-2024 End: 07-25-2024 Blood count hematocrit Yara Flowers PROCESS SUPERVISOR - PAPER PROCESSING MACHINE HELPER Work Phone: Start: 07-25-2024 End: 07-25-2024 Glucose quantitative blood xcpt reagent strip Brooklynn Martinez DO Work Phone: Start: 07-25-2024 Compatibility each unit electronic Yara Flowers PROCESS SUPERVISOR - PAPER PROCESSING MACHINE HELPER Work Phone: Start: 07-25-2024 End: 07-25-2024 TRANSFUSE RED BLOOD CELLS Yara garza PROCESS SUPERVISOR - PAPER PROCESSING MACHINE HELPER Work Phone: Start: 07-25-2024 Glucose quantitative blood xcpt reagent strip Brooklynn Martinez DO Work Phone: Start: 07-25-2024 Cryoprecipitate each unit Yara garza PROCESS SUPERVISOR - PAPER PROCESSING MACHINE HELPER Work Phone: Start: 07-25-2024 End: 07-25-2024 TRANSFUSE CRYOPRECIPITATE Yara garza PROCESS SUPERVISOR - PAPER PROCESSING MACHINE HELPER Work Phone: Start: 07-25-2024 End: 07-25-2024 Glucose quantitative blood xcpt reagent strip Brooklynn Martinez DO Work Phone: Start: 07-25-2024 End: 07-25-2024 TRANSFUSE CRYOPRECIPITATE Yara garza PROCESS SUPERVISOR - PAPER PROCESSING MACHINE HELPER Work Phone: Start: 07-25-2024 End: 07-25-2024 TRANSFUSE RED BLOOD CELLS Yara garza PROCESS SUPERVISOR - PAPER PROCESSING MACHINE HELPER Work Phone: Start: 07-25-2024 End: 07-25-2024 Blood count complete automated Yaranupur sarmeinto PROCESS SUPERVISOR - PAPER PROCESSING MACHINE HELPER Work Phone: Start: 07-25-2024 WILTON Mosley MD Work Phone: Start: 07-25-2024 Echo transesophag r-t 2d w/prb img acquisj i&r Brooklynn Martinez DO Work Phone: Start: 07-25-2024 Radiologic exam chest single view Ez Garcia PROCESS SUPERVISOR Just Dial PAPER PROCESSING MACHINE HELPER Work Phone: Start: 07-25-2024 Basic metabolic panel calcium total Yara Flowers PROCESS SUPERVISOR [employer] PAPER PROCESSING MACHINE HELPER Work Phone: Start: 07-25-2024 Blood gases any combination ph pco2 po2 co2 hco3 Yara Flowers PROCESS SUPERVISOR [employer] PAPER PROCESSING MACHINE HELPER Work Phone: Start: 07-25-2024 Ecg routine ecg w/least 12 lds trcg only w/o i&r Ez Garcia PROCESS SUPERVISOR Just Dial PAPER PROCESSING MACHINE HELPER Work Phone: Start: 07-25-2024 End: 07-25-2024 Basic metabolic panel calcium total Rich lazaro Martinez DO Work Phone: Start: 07-25-2024 Blood gases any combination ph pco2 po2 co2 hco3 Brooklynn Martinez DO Work Phone: Start: 07-25-2024 ANESTHESIA ARTERIAL LINE PLACEMENT Dewayne Rodriges PROCESS SUPERVISOR - NARROW GAUGE BRAKEMAN Work Phone: Start: 07-25-2024 HCS INTRODUCER - DOUBLE LUMEN Dewayne wong PROCESS SUPERVISOR - NARROW GAUGE BRAKEMAN Work Phone: Start: 07-25-2024 Us vasc access sits vsl patency ndl entry Dewayne Rodriges PROCESS SUPERVISOR - NARROW GAUGE BRAKEMAN Work Phone: Start: 07-25-2024 End: 07-25-2024 Cabg w/arterial graft three arterial grafts Brooklynn Martinez DO Work Phone: Start: 07-25-2024 End: 07-25-2024 Echo transesophag r-t 2d w/prb img acquisj i&r Brooklynn Martinez DO Work Phone: Start: 07-18-2024 Antibody screen BROOKLYNN MARTINEZ Comment on above: Performed By: #### [id number] ####Medical Di bren: ALEKSANDRA NUNEZ ([id number])[facility] ([facility])[address] Start: 07-05-2024 Cardiac catheterization study Horace Ivis Martinez APRN - PAPER PROCESSING MACHINE HELPER Work Phone: Start: 06-25-2024 Echo tthrc r-t 2d w/wo m-mode rest&strs cont ecg Horace Ivis Martinez APRN - PAPER PROCESSING MACHINE HELPER Work Phone: Start: 06-11-2024 Ecg routine ecg w/least 12 lds trcg only w/o i&r Becky Tineo MD Work Phone: Start: 06-10-2024 Lipid 1996 panel - Serum or Plasma Fortunato Jurado APRN.PAPER PROCESSING MACHINE HELPER Work Phone: Start: 03-11-2024 Radex foot complete minimum 3 views Chri phill Tello MD Work Phone: Start: 01-29-2024 Antibody screen TIMA TELLO Comment on above: Order Comment: Specimen Type: BLOOD SPEC IMENOrdering Facility: [facility] Address: [address] [place] [address] Performed By: #### T [id number] ####[facility] [id number] [place] [address] [place] Start: 01-16-2024 Ecg routine ecg w/least 12 lds trcg only w/o i&r Becky Tineo MD Work Phone: Start: 12-08-2023 Adult depression screening assessment Shawn Tadeo MD Work Phone: Start: 12-06-2023 End: 12-06-2023 Brncdilat rspse spmtry pre&post-brncdilat admn Charo Tsai APRN.PAPER PROCESSING MACHINE HELPER Work Phone: Start: 11-29-2023 Ecg routine ecg w/least 12 lds i&r only [facility] Provider Start: 11-29-2023 Lipid 1996 panel - Serum or Plasma Pulm Wstr Work Phone: Start: 11-06-2023 Ct thorax w/o contrast material Charo Polancopster PROCESS SUPERVISOR.PAPER PROCESSING MACHINE HELPER Work Phone: Start: 06-13-2023 Us retroperitoneal real time w/image limited Tima Tello MD Work Phone: Start: 06-09-2023 Lipid 1996 panel - Serum or Plasma Gregorio Tello MD Work Phone: Start: 11-01-2022 Ecg routine ecg w/least 12 lds trcg only w/o i&r Becky Tineo MD Work Phone: Start: 12-07-2021 Lipid 1996 panel - Serum or Plasma Yara Flowers PROCESS SUPERVISOR - PAPER PROCESSING MACHINE HELPER Work Phone: Start: 08-03-2021 [facility] Tima Tello MD Work Phone: Start: 05-07-2021 Adult depression screening assessment aleisha Tello MD Work Phone: Start: 09-30-2020 Comprehensive metabolic panel Becky pavon Work Phone: Start: 09-30-2020 Lipid panel eBcky Tineo Work Phone: Start: 09-30-2020 Lipid 1996 panel - Serum or Plasma Becky Tineo MD Work Phone: H/O: surgery History of thoracotomy Nadege Tadeo MD Work Phone: History of coronary artery bypass grafting S/P CABG (coronary artery bypass graft) Brooklynn Martinez DO Work Phone: History of coronary artery bypass grafting S/P CABG (coronary artery bypass graft) Yara Flowers PROCESS SUPERVISOR - PAPER PROCESSING MACHINE HELPER Work Phone: History of coronary artery bypass grafting S/P CABG (coronary artery bypass graft) Yara Flowers PROCESS SUPERVISOR - PAPER PROCESSING MACHINE HELPER Work Phone: History of coronary artery bypass grafting S/P triple vessel bypass Alejandra Viramontes PROCESS SUPERVISOR.PAPER PROCESSING MACHINE HELPER Work Phone: History of coronary artery bypass grafting S/P CABG (coronary artery bypass graft) Yara Flowers PROCESS SUPERVISOR - PAPER PROCESSING MACHINE HELPER Work Phone: History of coronary artery bypass grafting S/P CABG (coronary artery bypass graft) Yara Flowers PROCESS SUPERVISOR - PAPER PROCESSING MACHINE HELPER Work Phone: History of coronary artery bypass grafting S/P CABG (coronary artery bypass graft) Becky Tineo MD Work Phone: History of placement of stent for coronary artery disease H/O heart artery stent Fred Mckinney PROCESS SUPERVISOR.PAPER PROCESSING MACHINE HELPER Work Phone: History of placement of stent for coronary artery disease History of heart artery stent Horace Martinez PROCESS SUPERVISOR - PAPER PROCESSING MACHINE HELPER Work Phone: Plan of Treatment Date Care Activity Detail Author Start: 04-08-2035 Screening for malignant neoplasm of colon [facility] Start: 08-03-2031 Colonoscopy COLONOSCOPY [facility] Start: 08-03-2031 COLORECTAL CANCER SCREENING COLORECTAL CANCER SCREENING [facility] Start: 08-03-2031 Screening for malignant neoplasm of colon [facility] Start: 2030 RSV Vaccine (1 - 1-dose 75+ series) RSV Vaccine (1 - 1-dose 75+ series) [facility] Start: 09-02-2029 Lipid panel [facility] Start: 06-10-2029 Lipid panel Lipid Screening [facility] Start: 11-28-2028 Lipid panel Lipid Screening [facility] Start: 06-09-2028 Lipid 1996 panel - Serum or Plasma Lipid Screening [facility] Start: 06-09-2028 Lipid panel Lipid Screening [facility] Start: 03-19-2028 Diabetes Screening Diabetes Screening [facility] Start: 07-31-2027 Diabetes Screening Diabetes Screening [facility] Start: 06-28-2027 Diabetes Screening Diabetes Screening [facility] Start: 02-09-2027 Diabetes Screening Diabetes Screening [facility] Start: 01-28-2027 Diabetes Screening Diabetes Screening [facility] Start: 12-07-2026 Lipid panel Lipid Panel [facility] Start: 12-07-2026 LIPID SCREEN LIPID SCREEN [facility] Start: 11-28-2026 Diabetes Screening Diabetes Screening [facility] Start: 06-09-2026 Diabetes Screening Diabetes Screening [facility] Start: 05-07-2026 PROSTATE CANCER SCREENING DISCUSSION PROSTATE CANCER SCREENING DISCUSSION [facility] Start: 05-07-2026 Prostate specific antigen measurement Prostate Cancer Screening Discussion [facility] Start: 03-19-2026 Annual PCP Team Chronic Disease Visit Annual PCP Team Chronic Disease Visit [facility] Start: 03-19-2026 Screening for malignant neoplasm of colon [facility] Start: 11-19-2025 End: 11-19-2025 Patient encounter procedure 11/19/2025 2:15 PM EDT Office Visit [facility] [place] [address] [place] [address] Becky Tineo MD [address] [address] [facility] Start: 11-11-2025 End: 11-11-2025 Patient encounter procedure Vasculary Surgery Comment on above: Dx: Bilateral carotid artery stenosis [I 65.23] Dx: Peripheral arter ial disease [I73.9] Dx: Abdominal aortic aneurysm (AAA) without rupture, unspecified part [I71.40]; Infrarenal abdominal aortic aneurysm, without rupture [I71.43] 6 month follow up Start: 10-13-2025 End: 10-13-2025 ambulatory 10/13/2025 8:00 AM EDT Visit (SP) Office Hematology/Oncology [address] [place] [address] Reanna Cervantes APRN.PAPER PROCESSING MACHINE HELPER [address] [place] [address] 6MO OV Hematology/Oncology Comment on above: 6MO OV Start: 10-08-2025 End: 10-08-2025 ambulatory 10/08/2025 9:10 AM EDT Visit (SP) Office Hematology/Oncology [address] [place] [address] Analy Dumont DO [address] [place] [address] 6MO OV*/ LABS AND CT2/23 Hematology/Oncology Comment on above: 6MO OV*/ LABS AND CT09/22 Start: 10-06-2025 End: 10-06-2025 Patient encounter procedure 10/06/2025 8:40 AM EDT Appointment Cat Scan [address] [place] [address] Dx: Malignant neoplasm of unspecified part of unspecified bronchus or lung (HCC) [C34.90] Cat Scan Comment on above: Dx: Malignant neoplasm of unspecified pa rt of unspecified bronchus or lung (HCC) [C34.90] Start: 10-06-2025 End: 10-06-2025 ambulatory 10/06/2025 8:15 AM EDT Results Only [place] [facility] [address] [place] [address] serum creatnine* [place] [facility] Comment on above: serum creatnine* Start: 09-30-2025 Lipid panel Lipid Panel [facility] Start: 09-29-2025 End: 09-29-2025 Patient encounter procedure 09/29/2025 9:00 AM EST Appointment [facility] Non-Invasive Cardiology [address] [place] [address] Becky Tineo MD 95 [facility] [address] [place] [address] [facility] Non-Invasive Cardiology Start: 09-24-2025 BP Controlled (<130/80) BP Controlled (<130/80) [facility] Start: 09-22-2025 End: 09-22-2025 Patient encounter procedure 09/22/2025 9:20 AM EST Appointment Cat Scan [address] [place] [address] Primary lung adenocarcinoma, 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] Cat Scan Comment on above: Primary lung adenocarcinoma, 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] Start: 09-22-2025 End: 09-22-2025 ambulatory 09/22/2025 9:00 AM EST Results Only [facility] [address] [place] [id number] serum creatnine* [facility] [facility] Comment on above: serum creatnine* Start: 09-17-2025 Annual PCP Team Chronic Disease Visit Annual PCP Team Chronic Disease Visit [facility] Start: 09-17-2025 BP Controlled (<130/80) BP Controlled (<130/80) [facility] Start: 09-09-2025 BP Controlled (<130/80) BP Controlled (<130/80) [facility] Start: 09-02-2025 Hepatitis B surface antibody level LDL Cholesterol [facility] Start: 07-31-2025 Creatinine measurement Creatinine Level [facility] Start: 07-31-2025 Potassium measurement Potassium Level [facility] Start: 07-26-2025 Creatinine measurement Creatinine Level [facility] Start: 07-26-2025 Potassium measurement Potassium Level [facility] Start: 07-25-2025 Diabetes mellitus screening Diabetes Screening [facility] Start: 07-25-2025 Echocardiography Echocardiogram [facility] Start: 07-18-2025 Creatinine measurement Creatinine Level [facility] Start: 07-18-2025 Potassium measurement Potassium Level [facility] Start: 06-10-2025 Annual PCP Team Chronic Disease Visit Annual PCP Team Chronic Disease Visit [facility] Start: 06-10-2025 BP Controlled (<130/80) BP Controlled (<130/80) [facility] Start: 06-10-2025 Covid-19 Vaccine ( season) Covid-19 Vaccine () [facility] Comment on above: Postponed from 03/31/2024 (Declined at t his time) Start: 06-10-2025 Hepatitis B surface antibody level LDL Cholesterol [facility] Start: 05-21-2025 BP Controlled (<130/80) BP Controlled (<130/80) [facility] Start: 05-14-2025 End: 05-14-2025 ambulatory 05/14/2025 8:50 AM EDT Visit (SP) Office Hematology/Oncology [address] [place] [id number] Analy Dumont DO [address] [place] [id number] 4-6WK OV Hematology/Oncology Comment on above: 4-6WK OV Start: 05-06-2025 Annual PCP Team Chronic Disease Visit Annual PCP Team Chronic Disease Visit [facility] Start: 05-06-2025 BP Controlled (<130/80) BP Controlled (<130/80) [facility] Start: 05-03-2025 Annual PCP Team Chronic Disease Visit Annual PCP Team Chronic Disease Visit [facility] Start: 04-21-2025 End: 04-21-2025 Patient encounter procedure 04/21/2025 7:20 AM EDT Office Visit Family Medicine [place] [address] [facility], [place] [id number] PodlogarAlejandra APRN.PAPER PROCESSING MACHINE HELPER [address] [facility] [place], [place] [address] 4 week follow up Family Medicine [place] Comment on above: 4 week follow up [...] Hematology/Oncology [address] [place], [place] [id number] Analy Dumont DO [address] [place], [place] [id number] OV Hematology/Oncology Comment on above: OV Start: 04-08-2025 End: 04-08-2025 Patient encounter procedure 04/08/2025 3:00 PM EDT Appointment Ambulatory Surgery [address] [place], [place] [phone] Mae Robles MD [address] [place] [id number] EGD & Colonoscopy Ambulatory Surgery Comment on above: EGD & Colonoscopy Start: 03-31-2025 COVID-19 Vaccine () COVID-19 Vaccine () [facility] Start: 03-31-2025 Influenza vaccination [facility] Start: 03-27-2025 End: 03-27-2025 Patient encounter procedure 03/27/2025 7:00 AM EDT Appointment Radiology [address] [place], [place] [phone] Nausea [R11.0]; RUQ abdominal pain [R10.11] Radiology Comment on above: Nausea [R11.0]; RUQ abdominal pain [R10. 11] Start: 03-26-2025 End: 03-26-2025 Patient encounter procedure Pulmonary Medicine Comment on above: 6 MTH F/U Start: 03-25-2025 End: 03-25-2025 Patient encounter procedure 03/25/2025 10:15 AM EDT Office Visit General Surgery [address] [place], [place] [phone] Enrique Selby MD [address] [place], [place] [phone] Dx: Chronic constipation [K59.09]; Melena [K92.1] General Surgery Comment on above: Dx: Chronic constipation [K59.09]; Melen a [K92.1] Start: 03-25-2025 End: 03-25-2025 Patient encounter procedure Cat Scan Comment on above: Dx: Melena [K92.1]; Generalized abdomina l pain [R10.84] Start: 03-24-2025 End: 03-24-2025 Patient encounter procedure 03/24/2025 10:30 AM EDT Office Visit Pulmonary Medicine [address] [place], [place] [phone] Jazmyn Mas MD [address] [place] [address] 6 MTH F/U Pulmonary Medicine Comment on above: 6 MTH F/U Start: 03-21-2025 End: 03-21-2025 Patient encounter procedure 03/21/2025 9:00 AM EDT Office Visit General Surgery [address] [place] [address] Saray Marinelli APRN.PAPER PROCESSING MACHINE HELPER [address] [place] [address] Positive Fecal Blood Test General Surgery Comment on above: Positive Fecal Blood Test Start: 03-20-2025 BP Controlled (<130/80) BP Controlled (<130/80) [facility] Start: 03-19-2025 End: 06-18-2025 CBC W Auto Differential panel - Blood [facility] Comment on above: Expected: 03/19/2025, Expires: Start: 03-19-2025 End: 06-18-2025 Comprehensive metabolic 2000 panel - Serum or Plasma [facility] Comment on above: Expected: 03/19/2025, Expires: Start: 03-19-2025 End: 03-19-2025 Patient encounter procedure 03/19/2025 7:20 AM EDT Office Visit Family [facility] [address] [facility] [place] [address] Tima Tello MD [address] [facility] [place] [address] FOLLOW UP Family [facility] Comment on above: FOLLOW UP Start: 03-17-2025 End: 03-17-2025 Patient encounter procedure 03/17/2025 9:40 AM EDT Office Visit Family [facility] [place] [address] [place] [address] Tima Tello MD [address] [facility] [place] [address] 6 month follow up Family Medicine [place] Comment on above: 6 month follow up Start: 03-17-2025 End: 03-17-2025 ambulatory 03/17/2025 8:30 AM EDT Visit (SP) Office Hematology/Oncology [address] [place] [phone] Analy Dumont DO [address] [place] [address] 6MO OV/CT 03/10* Hematology/Oncology Comment on above: 6MO OV/CT 03/10* Start: 03-11-2025 Annual PCP Team Chronic Disease Visit Annual PCP Team Chronic Disease Visit [facility] Start: 03-10-2025 End: 03-10-2025 Patient encounter procedure 03/10/2025 8:40 AM EDT Appointment Cat Scan [address] [place] [phone] Malignant neoplasm of unspecified part of unspecified bronchus or lung (HCC) [C3... Cat Scan Comment on above: Malignant neoplasm of unspecified part o f unspecified bronchus or lung (HCC) [C3... Start: 03-09-2025 End: 06-08-2025 CREATININE BLD CREATININE BLD Lab Routine Malignant neoplasm of unspecified part of unspecified bronchus or lung (HCC) S/P lobectomy of lung Expected: 03/09/2025 (Approximate), Expires: 06/08/2025 [facility] Comment on above: Expected: 03/09/2025 (Approximate), Expi res: 06/08/2025 Start: 03-09-2025 End: 10-09-2025 CT Chest W contrast IV CT CHEST W IVCON Radiology Routine Malignant neoplasm of unspecified part of unspecified bronchus or lung (HCC) S/P lobectomy of lung Expected: 03/09/2025 (Approximate), Expires: 10/09/2025 [facility] Work Phone: Comment on above: Expected: 03/09/2025 (Approximate), Expi res: 10/09/2025 Start: 02-28-2025 BP Controlled (<130/80) BP Controlled (<130/80) [facility] Start: 01-28-2025 BP Controlled (<130/80) BP Controlled (<130/80) [facility] Start: 01-27-2025 Influenza vaccination Influenza Vaccine (#1) [facility] Pitalisa oro Comment on above: Postponed from 03/31/2024 (Declined at t his time) Start: 01-07-2025 BP Controlled (<130/80) BP Controlled (<130/80) [facility] Start: 01-06-2025 Medicare Annual Wellness (AWV) Medicare Annual Wellness (AWV) [facility] Start: 12-12-2024 Screening for malignant neoplasm of lung Lung Cancer Screening [facility] Start: 12-07-2024 Annual PCP Team Chronic Disease Visit Annual PCP Team Chronic Disease Visit [facility] Start: 12-07-2024 Anxiety Screening Anxiety Screening [facility] Start: 12-07-2024 BP Controlled (<130/80) BP Controlled (<130/80) [facility] Start: 12-07-2024 Depression Screening Depression Screening [facility] Start: 12-07-2024 DIABETES SCREEN DIABETES SCREEN [facility] Start: 12-07-2024 Medicare Annual Wellness Visit Medicare Annual Wellness Visit [facility] Start: 11-28-2024 Hepatitis B surface antibody level LDL Cholesterol [facility] Start: 11-13-2024 End: 11-13-2026 Heart Transthoracic Transthoracic echocardiogram (TTE) complete with contrast, bubble, strain, and 3D PRN CV Echocardiography Routine Coronary artery disease involving kaw coronary artery of kaw heart without angina pectoris S/P CABG (coronary artery bypass graft) Expected: 11/13/2024 (Approximate), Expires: 11/13/[address] [facility] [employer] Work Phone: Comment on above: Expected: 11/13/2024 (Approximate), Expi res: 11/13/2026 Start: 11-13-2024 End: 11-13-2024 Patient encounter procedure [facility] Start: 11-05-2024 Screening for malignant neoplasm of lung Lung Cancer Screening [facility] Start: 10-17-2024 LIPID SCREEN LIPID SCREEN [facility] Start: 09-24-2024 End: 09-24-2024 Patient encounter procedure 09/24/2024 8:00 AM EST Office Visit Pulmonary Medicine [address] [place] [address] Gisselle Phelan APRN.PAPER PROCESSING MACHINE HELPER [address] [place] [address] 4 MTH F/U Pulmonary Medicine Comment on above: 4 MTH F/U Start: 09-13-2024 End: 09-13-2024 Patient encounter procedure 09/13/2024 9:00 AM EST Office Visit Family Medicine [place] [address] [place] [address] TannerlogAlejandra alcala APRN.PAPER PROCESSING MACHINE HELPER [address] [place] [address] 3 month follow up Family Medicine [place] [...] or lung (HCC) Expected: 09/02/2024, Expires: 12/02/2024 [facility] Comment on above: Expected: 09/02/2024, Expires: Start: 09-02-2024 End: 09-02-2024 Patient encounter procedure 09/02/2024 8:40 AM EST Appointment Cat Scan [address] [place] [address] Malignant neoplasm of unspecified part of unspecified bronchus or lung (HCC) [C34.90] Cat Scan Comment on above: Malignant neoplasm of unspecified part o f unspecified bronchus or lung (HCC) [C34.90] Start: 09-02-2024 End: 09-02-2024 ambulatory 09/02/2024 8:15 AM EST Results Only [place] [facility] [address] [place] [address] CREATININE(S)* [place] Comment on above: CREATININE(S)* Start: 08-31-2024 End: 11-30-2024 Lipid 1996 panel - Serum or Plasma LIPID PANEL BASIC Lab Routine Hyperlipidemia, mixed Expected: 08/31/2024 (Approximate), Expires: 11/30/2024 [facility] Work Phone: Comment on above: Expected: 08/31/2024 (Approximate), Expi res: 11/30/2024 Start: 08-28-2024 End: 08-28-2024 Telemedicine consultation with patient 08/28/2024 1:00 PM EST Telemedicine [facility] [place] [address] [place] [address] Yara Flowers, PROCESS SUPERVISOR - PAPER PROCESSING MACHINE HELPER [address] [place] [address] [facility] [place] Start: 08-14-2024 End: 08-14-2024 Patient encounter procedure 08/14/2024 11:30 AM EST Office Visit [facility] [place] [address] [place] [address] Yara Flowers, PROCESS SUPERVISOR - PAPER PROCESSING MACHINE HELPER [address] [place] [address] [facility] [place] Start: 08-12-2024 End: 08-12-2024 Patient encounter procedure Radiology Comment on above: lt shoulder lt shoulder pain - r eferral in scanned docs Start: 07-31-2024 Advance Directive Discussion Advance Directive Discussion [facility] Start: 07-25-2024 End: 07-25-2024 Admission to same day surgery center 07/25/2024 7:30 AM EST - 07/25/2024 12:30 PM EST Surgery [facility] OR [address] [place] [phone] Brooklynn Martinez DO [address] [place] [address] CORONARY ARTERY BYPASS GRAFT [73774 (CPT )] [facility] Comment on above: CORONARY ARTERY BYPASS GRAFT [45395 (CPT )] Start: 07-25-2024 End: 07-25-2024 Anesthesia consultation 07/25/2024 7:30 AM EST Anesthesia Event [facility] OR [address] [facility] [place] [phone] Xander Sandoval PA-C [address] [place] [address] [facility] OR Start: 07-25-2024 End: 07-25-2024 Cabg w/arterial graft three arterial grafts CORONARY ARTERY BYPASS GRAFT X3 ARTERIAL GRAFTS 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) 07/25/2024 7:30 AM EST [facility] Operating Room Start: 07-25-2024 End: 07-25-2024 Echo transesophag r-t 2d w/prb img acquisj i&r Echocardiography transesophageal real-time 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) 07/25/2024 7:30 AM EST [facility] Start: 07-25-2024 Subsequent hospital visit by physician 07/25/2024 7:30 AM EST Hospital Encounter [facility] [address] [place] [phone] Brooklynn Martinez DO [address] [place] [address] [facility] OR Start: 07-18-2024 End: 07-18-2024 Admission to establishment 07/18/2024 1:00 PM EST Pre-Admission Testing [facility] Pre-Admit Testing [address] [place] [address] [facility] Pre-Admit Testing Start: 07-10-2024 End: 07-10-2024 Patient encounter procedure 07/10/2024 12:30 PM EST Office Visit [facility] [place] [address] [place] [phone] Brooklynn Martinez DO [address] [address] [facility] [place] Start: 07-05-2024 End: 07-05-2024 Admission to same day surgery center 07/05/2024 10:00 AM EST - 07/05/2024 11:00 AM EST Surgery [facility] Cath/EP Lab [address] [place] [phone] Becky Tineo MD [address] [address] Left heart cath / coronary angiography [facility] Comment on above: Left heart cath / coronary angiography Start: 07-05-2024 Subsequent hospital visit by physician 07/05/2024 10:00 AM EST Hospital Encounter [facility] Cath[facility]EP Lab [address] [place] [address] Becky Tineo MD [address] [address] 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); Abnormal stress echocardiogram [facility] Cath[facility]EP [facility] Comment on above: 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); Abnormal stress echocardiogram Start: 07-04-2024 End: 07-04-2024 Patient encounter procedure 07/04/2024 8:30 AM EST [facility] [address] [place] [phone] Horace Martinez, PROCESS SUPERVISOR - PAPER PROCESSING MACHINE HELPER [address] [place] [phone] [facility] Start: 06-25-2024 End: 06-25-2024 Patient encounter procedure 06/25/2024 8:00 AM EST Appointment [facility] [address] Non-Invasive Cardiology [address] [place] [phone] Horace Martinez, PROCESS SUPERVISOR - PAPER PROCESSING MACHINE HELPER [address] [place] [phone] [facility] [address] Non-Invasive Cardiology Start: 06-11-2024 End: 06-11-2026 Stress echocardiogram (TTE) exercise with contrast, bubble, strain, and 3D PRN [employer] Work Phone: Comment on above: Expected: 06/11/2024 (Approximate), Expi res: 06/11/2026 Start: 06-11-2024 End: 06-11-2024 Patient encounter procedure 06/11/2024 9:30 AM EST Office Visit [facility] [place] [address] [place] [facility] [address] Horace Martinez, PROCESS SUPERVISOR - PAPER PROCESSING MACHINE HELPER [address] [place] [address] [facility] [place] Start: 06-10-2024 End: 09-09-2024 Lipid 1996 panel - Serum or Plasma [facility] Work Phone: Comment on above: Expected: 06/10/2024, Expires: Start: 06-10-2024 End: 06-10-2024 Patient encounter procedure [facility] [place] Comment on above: 3 month follow up Start: 06-09-2024 Annual PCP Team Chronic Disease Visit Annual PCP Team Chronic Disease Visit [facility] Start: 06-09-2024 BP Controlled (<130/80) BP Controlled (<130/80) [facility] Start: 06-09-2024 Covid-19 Vaccine () Covid-19 Vaccine ( season) [facility] Comment on above: Postponed from 03/31/2023 (Declined at t his time) Start: 06-09-2024 Hepatitis B surface antibody level LDL Cholesterol [facility] Start: 06-09-2024 Pneumococcal Vaccine: 65+ (1 - PCV) Pneumococcal Vaccine: 65+ (1 - PCV) [facility] Comment on above: Postponed from 2020 (Declined at t his time) Start: 06-09-2024 Pneumococcal Vaccine: 65+ (1 of 1 - PCV) Pneumococcal Vaccine: 65+ (1 of 1 - PCV) [facility] Comment on above: Postponed from 2020 (Declined at t his time) Start: 06-09-2024 RSV Vaccine (1 - 1-dose 60+ series) RSV Vaccine (1 - 1-dose 60+ series) [facility] Comment on above: Postponed from 2015 (Declined at t his time) Start: 06-09-2024 RSV Vaccine (1 - Risk 60-74 years 1-dose series) RSV Vaccine (1 - Risk 60-74 years 1-dose series) [facility] Comment on above: Postponed from 2015 (Declined at t his time) Start: 06-09-2024 Shingrix Vaccine (1 of 2) Shingrix Vaccine (1 of 2) [facility] Comment on above: Postponed from 2005 (Declined at t his time) Start: 06-09-2024 Urine microalbumin profile DTaP,Tdap,Td Vaccine (1 - Tdap) [facility] Comment on above: Postponed from 1974 (Declined at t his time) Start: 05-21-2024 End: 05-21-2024 Patient encounter procedure 05/21/2024 8:45 AM EDT Office Visit Pulmonary Medicine [address] [place] [address] Jazmyn Mas MD [address] [place] [address] Adenocarcinoma, lung, 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] Pulmonary Medicine Comment on above: Adenocarcinoma, lung, right (HCC) [C34.9 1] Start: 05-06-2024 End: 05-06-2024 Patient encounter procedure 05/06/2024 3:20 PM EDT Office Visit Family [facility] [address] [place], [place] [phone] PodAlejandra chrery APRN.PAPER PROCESSING MACHINE HELPER [address] [place] [address] Follow up Family Medicine [place] Comment on above: Follow up Start: 05-03-2024 End: 05-03-2024 Patient encounter procedure 05/03/2024 11:40 AM EDT Office Visit Family Medicine [place] [address] [place] [address] Alejandra Viramontes APRN.PAPER PROCESSING MACHINE HELPER [address] [facility] [place] [address] urg care follow up Family Medicine [place] Comment on above: urg care follow up Start: 03-31-2024 Covid-19 Vaccine ( season) Covid-19 Vaccine () [facility] Start: 03-31-2024 Covid-19 Vaccine () Covid-19 Vaccine () [facility] Start: 03-31-2024 Influenza vaccination [facility] Start: 03-20-2024 End: 03-20-2024 ambulatory 03/20/2024 1:00 PM EDT Visit (SP) Office Hematology/Oncology [address] [place] [address] Analy Dumont DO [address] [place], [place] [phone] OPERATOR PREFINISH/LUNG CANCER, RT/REF SHAYLEE WOODS/FIRST AVAILABLE* Hematology/Oncology Comment on above: OPERATOR PREFINISH/LUNG CANCER, RT/REF SHAYLEE WOODS/ RST AVAILABLE* Start: 03-11-2024 End: 03-11-2024 Patient encounter procedure 03/11/2024 7:00 AM EDT Office Visit [facility] [place] [address] [facility] [place] [address] Tima Tello MD [address] [place], [place] [phone] 3 month follow up Family [facility] Maharaj Comment on above: 3 month follow up Start: 02-29-2024 End: 02-29-2024 Patient encounter procedure 02/29/2024 10:00 AM EDT Office Visit [facility] [address] [place], [place] [phone] Shaylee Woods APRN.PAPER PROCESSING MACHINE HELPER 1 [facility] [address] [place], [place] [phone] *CXR* 2 week p/o - s/p lobectomy (per [facility]) [facility] Comment on above: *CXR* 2 week p/o - s/p lobectomy (per [facility] ) Start: 02-13-2024 End: 02-13-2024 Admission to same day surgery center 02/13/2024 8:30 AM EDT - 02/13/2024 3:15 PM EDT Surgery [facility] 1 [place] [address] Nadege Tadeo MD 1 [place] [address] BRONCHOSCOPY FLEXIBLE ADULT [facility] Comment on above: BRONCHOSCOPY FLEXIBLE ADULT Start: 02-13-2024 End: 02-13-2024 [facility] incl fluor gdnce dx w/cell washg spx BRONCHOSCOPY FLEXIBLE ADULT Nodule of right lung 02/13/2024 8:30 AM EDT [facility] Start: 02-13-2024 Subsequent hospital visit by physician 02/13/2024 8:30 AM EDT Hospital Encounter [facility] [address] [place] [address] Nadege Tadeo MD [address] [place] [address] Nodule of right lung [R91.1] [facility] [...] PM EDT Surgery [facility] 1 [place] [address] Nadege Tadeo MD [address] [place], [place] [phone] BRONCHOSCOPY FLEXIBLE ADULT [facility] Comment on above: BRONCHOSCOPY FLEXIBLE ADULT Start: 02-09-2024 End: 02-09-2024 [facility] incl fluor gdnce dx w/cell washg spx BRONCHOSCOPY FLEXIBLE ADULT Nodule of right lung 02/09/2024 8:00 AM EDT [facility] Start: 02-09-2024 Subsequent hospital visit by physician 02/09/2024 8:00 AM EDT Hospital Encounter [facility] 1 [place] [address] Nadege Tadeo MD [address] [place], [place] [phone] Nodule of right lung [R91.1] [facility] [...] [facility] 1 [place], [place] [phone] Fred Mckinney APRN.PAPER PROCESSING MACHINE HELPER [address] [place], [place] [phone] PAT 02/09/24 lung surgery [facility] [...] lung Preoperative testing Expected: 01/19/2024, Expires: 04/19/2024 [facility] Work Phone: Comment on above: Expected: 01/19/2024, Expires: 4 Start: 01-19-2024 End: 04-19-2024 Comprehensive metabolic 2000 panel - Serum or Plasma COMPREHENSIVE METABOLIC PANEL Lab Routine Nodule of upper lobe of right lung Preoperative testing Expected: 01/19/2024, Expires: 04/19/2024 [facility] Comment on above: Expected: 01/19/2024, Expires: 4 Start: 01-19-2024 End: 04-19-2024 PT panel - Platelet poor plasma by Coagulation assay PROTHROMBIN TIME Lab Routine Nodule of upper lobe of right lung Preoperative testing Shortness of breath Expected: 01/19/2024, Expires: 04/19/2024 [facility] Comment on above: Expected: 01/19/2024, Expires: 4 Start: 01-19-2024 End: 04-19-2024 TYPE AND SCREEN,30 DAY TYPE AND SCREEN,30 DAY Blood Bank Routine Nodule of upper lobe of right lung Preoperative testing Expected: 01/19/2024, Expires: 04/19/2024 [facility] Comment on above: Expected: 01/19/2024, Expires: 4 Start: 01-08-2024 End: 01-08-2024 Patient encounter procedure 01/08/2024 1:00 PM EDT Office Visit [facility] [address] [place] [address] Nadege Tadeo MD [address] [place] [phone] New Patient Referral from Charo Tsai ([phone]) - Multiple Lung Nodules [facility] Comment on above: New Patient Referral from Adenike Tsai ([phone]) - Multiple Lung Nodules Start: 12-29-2023 End: 12-29-2023 Patient encounter procedure 12/29/2023 9:30 AM EDT Office Visit Radiation Oncology [address] [place], [place] [phone] Stephen Nunez MD [address] [place] [address] Multiple lung nodules [R91.8]; Former tobacco use [Z87.891] Radiation Oncology Comment on above: Multiple lung nodules [R91.8]; Former to bacco use [Z87.891] Start: 12-15-2023 End: 12-15-2023 Admission to same day surgery center [facility] Endoscopy - ENDO Comment on above: FLEX BRONCHOSCOPY W/ NAVIGATIONAL IMAGE GUIDANCE Start: 12-15-2023 End: 12-15-2023 [facility] ebus guided sampl 1/2 node station/strux BRONCHOSCOPY,RIGID/FLEXI BLE W/ FLUORO,W/ENDOBRONCHIAL ULTRASOUND (EBUS) GUIDED TRANSTRACHEAL/ TRANSBRONCHIAL ASPIRATION/BIOPSY,1 OR 2 MEDIASTINAL AND/OR HILAR LYMPH NODE STATIONS/STRUCTURES Lung nodule 12/15/2023 7:30 AM EDT [facility] Start: 12-15-2023 End: 12-15-2023 [facility] incl fluor gdnce dx w/cell washg spx BRONCHOSCOPY FLEXIBLE WITH C-ARM Lung nodule 12/15/2023 7:30 AM EDT [facility] Start: 12-15-2023 End: 12-15-2023 Bronchoscopy w/cptr-asst image-guided navigation FLEX BRONCHOSCOPY W/ NAVIGATIONAL IMAGE GUIDANCE Lung nodule 12/15/2023 7:30 AM EDT [facility] Start: 12-15-2023 Subsequent hospital visit by physician [facility] Endoscopy - ENDO Comment on above: Lung nodule [R91.1] Start: 12-14-2023 End: 12-14-2023 ambulatory 12/14/2023 9:00 AM EDT [facility] Pulmonary Medicine [address] [place] [address] Modesta Rivera MD [address] [place], [place] [phone] PRE BRONCH Pulmonary Medicine Comment on above: PRE BRONCH Start: 12-13-2023 End: 12-13-2023 Patient encounter procedure 12/13/2023 8:20 AM EDT Appointment Cat Scan [address] [place] [address] PRE BRONCH Cat Scan Comment on above: PRE BRONCH Start: 12-08-2023 DIABETES SCREEN DIABETES SCREEN [facility] Start: 12-08-2023 End: 12-08-2023 Nursing evaluation of patient and report 12/08/2023 9:15 AM EDT Nurse Visit Family Medicine [place] [address] [place] [address] Nurse, [place] [address] [place] [address] ekg [facility] [place] Comment on above: ekg Start: 12-08-2023 End: 12-08-2023 Patient encounter procedure 12/08/2023 8:00 AM EDT Office Visit [facility] [place] [address] [place] [address] Tima Tello MD [address] [place] [address] medicare wellness exam [facility] [place] Comment on above: medicare wellness exam Start: 12-08-2023 End: 12-08-2023 ambulatory 12/08/2023 7:15 AM EDT Results Only [facility] [address] [place] [address] [facility] Comment on above: lab Start: 12-06-2023 End: 12-06-2023 ambulatory PULM LAB [facility] Comment on above: Multiple lung nodules [R91.8] Start: 12-03-2023 BP CONTROLLED (<130/80) BP CONTROLLED (<130/80) [facility] Start: 11-29-2023 End: 11-29-2023 Anesthesia consultation 11/29/2023 8:00 AM EDT PAT Pre Anesthesia [address] [place] [address] 1, [facility] [place] [address] [place] [address] FLEX BRONCHOSCOPY W/ NAVIGATIONAL IMAGE GUIDANCE [24818] - Lung - N/A Pre Anesthesia Comment on above: FLEX BRONCHOSCOPY W/ NAVIGATIONAL IMAGE GUIDANCE [[id number]] - Lung - N/A Start: 11-13-2023 End: 02-12-2024 Basic metabolic 2000 panel - Serum or Plasma BASIC METABOLIC PANEL Lab Routine Lung nodule Expected: 11/13/2023, Expires: 02/12/2024 [facility] Work Phone: Comment on above: Expected: 11/13/2023, Expires: 4 Start: 11-13-2023 End: 02-12-2024 CBC W Auto Differential panel - Blood COMPLETE BLOOD COUNT AND DIFFERENTIAL Lab Routine Lung nodule Expected: 11/13/2023, Expires: 02/12/2024 [facility] Work Phone: Comment on above: Expected: 11/13/2023, Expires: Start: 09-13-2023 End: 12-13-2023 Lipid 1996 panel - Serum or Plasma LIPID PANEL BASIC Lab Routine Hyperlipidemia, mixed Expected: 09/13/2023, Expires: 12/13/2023 [facility] Work Phone: Comment on above: Expected: 09/13/2023, Expires: 4 Start: 07-31-2023 Advance Directive Discussion Advance Directive Discussion [facility] Start: 07-31-2023 Behavioral Health Screening Behavioral Health Screening [facility] Start: 03-31-2023 COVID-19 Vaccine ( season) COVID-19 Vaccine () [facility] Start: 03-31-2023 Influenza vaccination [facility] Start: 12-07-2022 BP CONTROLLED (<130/80) BP CONTROLLED (<130/80) [facility] Start: 12-07-2022 Hepatitis B surface antibody level LDL CHOLESTEROL [facility] Start: 12-02-2022 End: 12-16-2022 SARS-CoV-2 (COVID-19) RNA [Presence] in Respiratory specimen by PRESLEY with probe detection [facility] Work Phone: Comment on above: Expected: 12/02/2022, Expires: 3 Start: 11-23-2022 ANNUAL PCP TEAM CHRONIC DISEASE VISIT ANNUAL PCP TEAM CHRONIC DISEASE VISIT [facility] Start: 11-23-2022 COVID-19 VACCINE (3 - Booster for Pfizer series) COVID-19 VACCINE (3 - Booster for Pfizer series) [facility] Comment on above: Postponed from 05/20/2021 (Declined at t his time) Start: 11-23-2022 SHINGRIX VACCINE (1 of 2) SHINGRIX VACCINE (1 of 2) [facility] Comment on above: Postponed from 2005 (Declined at t his time) Start: 07-31-2022 ADVANCE DIRECTIVE DISCUSSION ADVANCE DIRECTIVE DISCUSSION [facility] Start: 07-31-2022 DEPRESSION ASSESSMENT DEPRESSION ASSESSMENT [facility] Start: 05-07-2022 Adult depression screening assessment DEPRESSION SCREENING [facility] Start: 05-07-2022 PNEUMOVAX AGE 65 AND OVER WITH 5YR LOOKBACK (#1) PNEUMOVAX AGE 65 AND OVER WITH 5YR LOOKBACK (#1) [facility] Comment on above: Postponed from 2020 (Declined at t his time) Start: 05-07-2022 Urine microalbumin profile DTAP,TDAP,TD (1 - Tdap) [facility] Comment on above: Postponed from 1974 (Declined at t his time) Start: 03-31-2022 Influenza vaccination INFLUENZA (Season Ended) [facility] Start: 03-10-2022 End: 05-10-2022 Comprehensive metabolic 2000 panel - Serum or Plasma COMP METABOLIC PANEL Lab Routine Mixed hyperlipidemia Expected: 03/10/2022, Expires: 05/10/2022 [facility] Work Phone: Comment on above: Expected: 03/10/2022, Expires: 2 Start: 03-10-2022 End: 05-10-2022 LIPID PANEL BASIC LIPID PANEL BASIC Lab Routine Mixed hyperlipidemia Expected: 03/10/2022, Expires: 05/10/2022 [facility] Work Phone: Comment on above: Expected: 03/10/2022, Expires: 2 Start: 11-23-2021 End: 01-23-2022 CBC W Auto Differential panel - Blood CBC + DIFF Lab Routine Coronary artery disease involving kaw coronary artery of kaw heart without angina pectoris Expected: 11/23/2021, Expires: 01/23/2022 [facility] Work Phone: Comment on above: Expected: 11/23/2021, Expires: 2 Start: 11-23-2021 End: 01-23-2022 Comprehensive metabolic 2000 panel - Serum or Plasma COMP METABOLIC PANEL Lab Routine Coronary artery disease involving kaw coronary artery of kaw heart without angina pectoris Expected: 11/23/2021, Expires: 01/23/2022 [facility] Work Phone: Comment on above: Expected: 11/23/2021, Expires: 2 Start: 11-23-2021 End: 01-23-2022 HIV 1+2 Ab [Presence] in Serum or Plasma by Immunoassay HIV 1 2 COMBO(AG/AB),WITH REFLEX TO DIFFERENTIATION Lab Routine Screening for HIV (human immunodeficiency virus) Expected: 11/23/2021, Expires: 01/23/2022 [facility] Work Phone: Comment on above: Expected: 11/23/2021, Expires: 2 Start: 11-23-2021 End: 01-23-2022 LIPID PANEL, NONFASTING LIPID PANEL, NONFASTING Lab Routine Coronary artery disease involving kaw coronary artery of kaw heart without angina pectoris Expected: 11/23/2021, Expires: 01/23/2022 [facility] Work Phone: Comment on above: Expected: 11/23/2021, Expires: 2 Start: 07-31-2021 ADVANCE DIRECTIVE DISCUSSION ADVANCE DIRECTIVE DISCUSSION [facility] Start: 02-12-2021 COVID-19 Vaccine (3 - Booster for Pfizer series) COVID-19 Vaccine (3 - Booster for Pfizer series) [facility] Start: 02-12-2021 COVID-19 Vaccine (3 - Pfizer series) COVID-19 Vaccine (3 - Pfizer series) [facility] Start: 10-17-2020 Creatinine measurement Creatinine monitoring [facility] Work Phone: Start: 10-17-2020 Hepatitis B surface antibody level LDL CHOLESTEROL [facility] Start: 10-17-2020 Lipid panel Lipid screen [facility] Work Phone: Start: 10-17-2020 Potassium monitoring Potassium monitoring [facility] Work Phone: Start: 2020 Pneumococcal 65+ years Vaccine (1 of 1 - PPSV23) Pneumococcal 65+ years Vaccine (1 of 1 - PPSV23) [facility] Work Phone: Start: 2020 Pneumococcal Vaccine: 65+ (1 of 1 - PCV) Pneumococcal Vaccine: 65+ (1 of 1 - PCV) [facility] Start: 2020 PNEUMOCOCCAL: 65+ (1 - PCV) PNEUMOCOCCAL: 65+ (1 - PCV) [facility] Start: 03-31-2020 Influenza vaccination Flu vaccine (#1) [facility] Work Phone: Start: 2015 RSV Immunization aged 60 or older (1 - 1-dose 60+ series) RSV Immunization aged 60 or older (1 - 1-dose 60+ series) [facility] Start: 2015 RSV Immunization for Adults (1 - Risk 60-74 years 1-dose series) RSV Immunization for Adults (1 - Risk 60-74 years 1-dose series) [facility] Start: 2015 RSV Vaccine (1 - Risk 60-74 years 1-dose series) RSV Vaccine (1 - Risk 60-74 years 1-dose series) [facility] Start: 2010 Influenza vaccination LUNG CANCER SCREENING [facility] Start: 2005 Influenza vaccination LUNG CANCER SCREENING [facility] Start: 2005 Pneumococcal Vaccine: 50+ (1 of 1 - PCV) Pneumococcal Vaccine: 50+ (1 of 1 - PCV) [facility] Start: 2005 Screening for malignant neoplasm of colon Colon cancer screen colonoscopy [facility] Work Phone: Start: 2005 Shingles Vaccine (1 of 2) Shingles Vaccine (1 of 2) [facility] Work Phone: Start: 2005 SHINGRIX VACCINE (1 of 2) SHINGRIX VACCINE (1 of 2) [facility] Start: 2005 Zoster Vaccines (1 of 2) Zoster Vaccines (1 of 2) [facility] Start: 2000 COLOGUARD (FIT-DNA) COLOGUARD (FIT-DNA) [facility] Start: [address] COLONOGRAPHY [facility] Start: 2000 FECAL OCCULT BLOOD FECAL OCCULT BLOOD [facility] Start: 2000 Screening for malignant neoplasm of colon [facility] Start: 2000 SIGMOIDOSCOPY SIGMOIDOSCOPY [facility] Start: 1974 DTaP/Tdap/Td vaccine (1 - Tdap) DTaP/Tdap/Td vaccine (1 - Tdap) [facility] Work Phone: Start: 1974 DTaP/Tdap/Td Vaccines (1 - Tdap) DTaP/Tdap/Td Vaccines (1 - Tdap) [facility] Start: 1974 Pneumococcal Vaccine: 50+ (1 of 2 - PCV) Pneumococcal Vaccine: 50+ (1 of 2 - PCV) [facility] Start: 1974 Pneumococcal Vaccine: 50+ Years (1 of 2 - PCV) Pneumococcal Vaccine: 50+ Years (1 of 2 - PCV) [facility] Start: 1974 Shingrix Vaccine (1 of 2) Shingrix Vaccine (1 of 2) [facility] Start: 1974 Urine microalbumin profile [facility] Start: 1973 BP CONTROLLED (<130/80) BP CONTROLLED (<130/80) [facility] in Start: 1973 Diabetes mellitus screening Diabetes Screening [facility] Start: 1973 Hepatitis C screening Hepatitis C Screening [facility] Start: 1971 COVID-19 Vaccine (1 of 2) COVID-19 Vaccine (1 of 2) [facility] Work Phone: Start: 1970 HIV screening HIV screen [facility] Work Phone: Start: 1967 Depression Screening Depression Screening [facility] Start: 1961 Pneumococcal Vaccine: 65+ Years (1 - PCV) Pneumococcal Vaccine: 65+ Years (1 - PCV) [facility] Start: 1961 Pneumococcal Vaccine: 65+ Years (1 of 2 - PCV) Pneumococcal Vaccine: 65+ Years (1 of 2 - PCV) [facility] Start: 1955 Abdominal aortic aneurysm screening AAA screen [facility] Work Phone: Start: 1955 Echocardiography Echocardiogram [facility] Start: 1955 Hepatitis B Vaccines (1 of 3 - 3-dose series) Hepatitis B Vaccines (1 of 3 - 3-dose series) [facility] Start: 1955 Hepatitis C screening Hepatitis C screen [facility] Work Phone: Start: 1955 Medicare Annual Wellness (AWV) Medicare Annual Wellness (AWV) [facility] Start: 1955 Screening for malignant neoplasm of colon [facility] Start: 1955 Thyroid stimulating hormone measurement TSH Level [facility] Bacteria identified in Wound by Culture ABSCESS AND WOUND CULTURE WITH GRAM STAIN Microbiology Routine Cellulitis of left lower extremity Ordered: 05/01/2024 [facility] Work Phone: Comment on above: Ordered: 05/01/2024 Cardiac catheterizat ion study Cardiac procedure CV Cardiac Cath Routine 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 [employer] Work Phone: End: 04-18-2026 CT Abdomen and Pelvis W contrast IV CT ABD/PEL W IVCON Radiology RAQUEL Melena Generalized abdominal pain 1 Occurrences starting 03/19/2025 until 04/18/2026 [facility] Work Phone: Comment on above: 1 Occurrences starting 03/19/2025 until 04/18/2026 End: 04-19-2025 CT Chest W contrast IV CT CHEST W IVCON Radiology Routine Malignant neoplasm of unspecified part of unspecified bronchus or lung (HCC) 1 Occurrences starting 03/20/2024 until 04/19/2025 [facility] Work Phone: Comment on above: 1 Occurrences starting 03/20/2024 until 04/19/2025 CT Chest W contrast IV CT CHEST W IVCON Radiology Routine Malignant neoplasm of unspecified part of unspecified bronchus or lung (HCC) 09/06/2024 3:26 PM [facility] Work Phone: CT Chest W contrast IV CT CHEST W IVCON Radiology Routine Malignant neoplasm of unspecified part of unspecified bronchus or lung (HCC) S/P lobectomy of lung 03/11/2025 9:08 AM EDT [facility] Work Phone: End: 04-17-2026 CT Chest W contrast IV CT CHEST W IVCON Radiology Routine Primary lung adenocarcinoma, right (HCC) 1 Occurrences starting 03/18/2025 until 04/17/2026 [facility] Work Phone: Comment on above: 1 Occurrences starting 03/18/2025 until 04/17/2026 End: 05-09-2026 CT Chest W contrast IV CT CHEST W IVCON Radiology Routine Malignant neoplasm of unspecified part of unspecified bronchus or lung (HCC) 1 Occurrences starting 04/09/2025 until 05/09/2026 [facility] Work Phone: Comment on above: 1 Occurrences starting 04/09/2025 until 05/09/2026 End: 12-12-2024 CT Chest WO contrast CT CHEST WO IVCON Radiology Routine Lung nodule 1 Occurrences starting 11/13/2023 until 12/12/2024 [facility] Work Phone: Comment on above: 1 Occurrences starting 11/13/2023 until 12/12/2024 CT Chest WO contrast CT CHEST WO IVCON Radiology Routine Lung nodule 12/13/2023 8:37 AM EDT [facility] Work Phone: ECG 12 lead - CLINIC PERFORMED ECG 12 lead - CLINIC PERFORMED CV ECG Routine Coronary artery disease involving kaw coronary artery of kaw heart without angina pectoris 11/01/2022 1:15 PM [employer] Work Phone: ECG 12 lead - CLINIC PERFORMED ECG 12 lead - CLINIC PERFORMED CV ECG Routine Coronary artery disease involving kaw coronary artery of kaw heart without angina pectoris 01/16/2024 12:36 PM [employer] Work Phone: ECG 12 lead - CLINIC PERFORMED ECG 12 lead - CLINIC PERFORMED CV ECG Routine Coronary artery disease involving kaw coronary artery of kaw heart without angina pectoris 06/11/2024 9:08 AM EST [facility] Work Phone: ECG 12 lead - CLINIC PERFORMED ECG 12 lead - CLINIC PERFORMED CV ECG Routine Mixed hyperlipidemia 11/13/2024 12:47 PM EDT [facility] End: 11-12-2024 ECG COMPLETE ECG COMPLETE ECG Routine Lung nodule 1 Occurrences starting 11/13/2023 until 11/12/2024 [facility] Work Phone: Comment on above: 1 Occurrences starting 11/13/2023 until 11/12/2024 End: 03-21-2026 EGD DIAGNOSTIC EGD DIAGNOSTIC Endoscopy Routine Melena Nausea Heart burn 1 Occurrences starting 03/21/2025 until 03/21/2026 [facility] Comment on above: 1 Occurrences starting 03/21/2025 until 03/21/2026 End: 03-21-2026 Flexible sigmoidoscopy study COLONOSCOPY DIAGNOSTIC Endoscopy Routine Chronic constipation 1 Occurrences starting 03/21/2025 until 03/21/2026 [facility] Work Phone: Comment on above: 1 Occurrences starting 03/21/2025 until 03/21/2026 Hemoglobin.gastroint piedad nal.lower [Presence] in Stool by Immunoassay IMMUNOCHEMICAL FECAL OCCULT BLOOD TEST Lab Routine Chronic constipation Melena 03/19/2025 10:00 AM EDT [facility] LEFT HEART CATH / CORONARY ANGIOGRAPHY LEFT HEART CATH / CORONARY ANGIOGRAPHY 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) Abnormal stress echocardiogram [facility] End: 12-05-2024 LUNG DIFFUSION CAPACITY (DLCO) LUNG DIFFUSION CAPACITY (DLCO) PFT Routine Multiple lung nodules 1 Occurrences starting 11/06/2023 until 12/05/2024 [facility] Work Phone: Comment on above: 1 Occurrences starting 11/06/2023 until 12/05/2024 LUNG DIFFUSION CAPAC ITY (DLCO) LUNG DIFFUSION CAPACITY (DLCO) PFT Routine Multiple lung nodules 12/06/2023 8:00 AM EDT [facility] Work Phone: End: 04-25-2026 LUNG DIFFUSION CAPACITY (DLCO) LUNG DIFFUSION CAPACITY (DLCO) PFT Routine Pulmonary air trapping Malignant neoplasm of upper lobe of right lung (HCC) 1 Occurrences starting 03/26/2025 until 04/25/2026 [facility] Comment on above: 1 Occurrences starting 03/26/2025 until 04/25/2026 End: 12-05-2024 LUNG VOLUMES LUNG VOLUMES PFT Routine Multiple lung nodules 1 Occurrences starting 11/06/2023 until 12/05/2024 [facility] Work Phone: Comment on above: 1 Occurrences starting 11/06/2023 until 12/05/2024 LUNG VOLUMES LUNG VOLUMES PFT Routine Multiple lung nodules 12/06/2023 8:00 AM EDT [facility] Work Phone: End: 04-25-2026 LUNG VOLUMES LUNG VOLUMES PFT Routine Pulmonary air trapping Malignant neoplasm of upper lobe of right lung (HCC) 1 Occurrences starting 03/26/2025 until 04/25/2026 [facility] Comment on above: 1 Occurrences starting 03/26/2025 until 04/25/2026 End: 12-05-2024 PET+CT Guidance for localization of tumor of Skull base to mid-thigh-- W [id number] IV NM PET/CT SKULL-THIGH INITIAL Radiology Routine Lung nodules 1 Occurrences starting 11/06/2023 until 12/05/2024 [facility] Work Phone: Comment on above: 1 Occurrences starting 11/06/2023 until 12/05/2024 End: 12-05-2024 SIX MINUTE WALK SIX MINUTE WALK PFT Routine Multiple lung nodules 1 Occurrences starting 11/06/2023 until 12/05/2024 [facility] Work Phone: Comment on above: 1 Occurrences starting 11/06/2023 until 12/05/2024 End: 12-05-2024 SPIROMETRY WITH DILATOR IF OBSTRUCTED SPIROMETRY WITH DILATOR IF OBSTRUCTED PFT Routine Multiple lung nodules 1 Occurrences starting 11/06/2023 until 12/05/2024 [facility] Work Phone: Comment on above: 1 Occurrences starting 11/06/2023 until 12/05/2024 SPIROMETRY WITH DILA TOR IF OBSTRUCTED SPIROMETRY WITH DILATOR IF OBSTRUCTED PFT Routine Multiple lung nodules 12/06/2023 8:00 AM EDT [facility] Work Phone: End: 04-25-2026 SPIROMETRY WITH DILATOR IF OBSTRUCTED SPIROMETRY WITH DILATOR IF OBSTRUCTED PFT Routine Pulmonary air trapping Malignant neoplasm of upper lobe of right lung (HCC) 1 Occurrences starting 03/26/2025 until 04/25/2026 [facility] Work Phone: Comment on above: 1 Occurrences starting 03/26/2025 until 04/25/2026 Tissue Pathology bio psy report [facility] Work Phone: Comment on above: Release Upon Ordering for 1 Occurrences starting 04/08/2025, 1 completed End: 04-20-2026 US Abdomen RUQ US ABD RIGHT UPPER QUADRANT Radiology Routine Nausea RUQ abdominal pain 1 Occurrences starting 03/21/2025 until 04/20/2026 [facility] Comment on above: 1 Occurrences starting 03/21/2025 until 04/20/2026 End: 04-15-2026 US Abdominal Aorta US ABD AORTA COMPLETE [facility] Vascular Lab Routine Abdominal aortic aneurysm (AAA) without rupture, unspecified part Infrarenal abdominal aortic aneurysm, without rupture 1 Occurrences starting 04/15/2025 until 04/15/2026 [facility] Work Phone: Comment on above: 1 Occurrences starting 04/15/2025 until 04/15/2026 End: 04-15-2026 US Carotid arteries - bilateral US CAROTID ARTERIES [facility] Vascular Lab Routine Bilateral carotid artery stenosis 1 Occurrences starting 04/15/2025 until 04/15/2026 [facility] Comment on above: 1 Occurrences starting 04/15/2025 until 04/15/2026 End: 04-15-2026 US Lower extremity artery - bilateral PVR LEG [facility] Vascular Lab Routine Peripheral arterial disease 1 Occurrences starting 04/15/2025 until 04/15/2026 [facility] Comment on above: 1 Occurrences starting 04/15/2025 until 04/15/2026 End: 03-11-2025 US.doppler Extremity arteries - bilateral for physiologic artery study PVR ANK PRESS [facility] Vascular Lab STAT Cold extremity without peripheral vascular disease Other specified symptoms and signs involving the circulatory and respiratory systems 1 Occurrences starting 03/11/2024 until 03/11/2025 [facility] Work Phone: Comment on above: 1 Occurrences starting 03/11/2024 until 03/11/2025 XR Chest 2 Views XR chest 2 view s Imaging Routine Preop examination 07/18/2024 2:15 PM EST [facility] Work Phone: XR Chest Single view XR CHEST 1V FRONTAL PORT Radiology Routine S/P lobectomy of lung 02/29/2024 11:14 AM EDT [facility] Work Phone: End: 09-08-2025 XR Shoulder - left 3 Views XR SHOULDER GENERAL 3V OR MORE AP/TRUE AP/OTHER LEFT Radiology Routine Pain 1 Occurrences starting 08/09/2024 until 09/08/2025 [facility] Work Phone: Comment on above: 1 Occurrences starting 08/09/2024 until 09/08/2025 [facility] Immunizations Immunization Date Immunization Notes Care Provider Fa cili 12-18-2020 COVID-19 vaccine, ag e 12+ yr (PFIZER-BIONTECH - PURPLE TOP) Tima Tello MD Work Phone: [facility] 11-27-2020 COVID-19 vaccine, ag e 12+ yr (PFIZER-BIONTECH - PURPLE TOP) Tima Tello MD Work Phone: [facility] Payers Date Payer Category Payer Self-pay 2020 [facility] DICARE SUPPLEMENT [id number] 2020 Medicare MEDICARE MEDICAR E A AND B [id number] 2020-Present [phone] [place] [address] Medicare [id number] 2020 Medicare [id number] 2020 Medicare supplementa l policy (as second payer) ANTHMERVAT MEDICARE SUPPLEMENT [id number] 2020 Unknown [facility]ELVA [place] DICARE SUPPLEMENT [id number] 2020-Present [phone] [address] [place] [address] Indemnity [id number] 2020 Unknown [id number] 2020 Medicare [id number] 2020 Unknown [id number] 2018 Unknown [id number] 2005 Unknown MED [facility]/ [place] PERS [id number] 1955 Unknown [id number] 1955 Unknown [id number] Unknown [id number] Unknown [id number] Unknown [id number] Unknown [id number] Unknown [id number] Social History Date Type Detail Facility Start: 09-30-2020 End: 05-01-2024 Tobacco smoking status NHIS Former smoker [facility] Work Phone: Start: 1955 End: 08-17-2011 History of tobacco use Current smoker [facility] Phone: Start: 09-30-2020 End: 05-01-2024 Tobacco use and exposure Never used [facility] Work Phone: Start: 09-30-2020 End: 11-13-2024 Alcohol intake Current non-drinker of alcohol (finding) [facility] Work Phone: Start: 08-17-2018 Tobacco Comment currently occ cigar [facility] Work Phone: Start: 1955 Sex Assigned At Not on file [facility] Work Phone: Start: 11-13-2021 End: 11-01-2022 Exposure to SARS-CoV-2 (event) Not sure [facility] Work Phone: Start: 1955 End: 08-17-2011 History of tobacco use Cigarette Smoker [facility] Work Phone: Start: 03-28-2011 End: 07-11-2023 Cigarettes smoked current (pack per day) - Reported 1.5 [facility] Work Phone: Start: 1955 Sex Assigned At Male [facility] Start: 11-01-2022 End: 07-11-2023 Tobacco use panel [facility] Work Phone: Start: 07-01-2012 Adult Depression Screening Assessment 0 [facility] Work Phone: Start: 11-06-2023 End: 04-15-2025 Alcohol intake Ex-drinker (finding) [facility] How often to you hav e a drink containing alcohol? Monthly or less [facility] How many standard drinks containing alcohol do you have on a typical day? 1 or 2 [facility] How often do you hav e 6 or more drinks on 1 occasion? Never [facility] Has the [employer], or [employer] threatened to shut off services in your home in past 12Mo No [facility] (I/We) worried [facility] (my/our) food would run out before (I/we) got money to buy more. Never true [facility] Are you now , , , , never or living with a partner? [facility] How hard is it for y ou to pay for the very basics like food, housing, medical care, and heating Not very hard [facility] Do you feel stress - tense, restless, nervous, or anxious, or unable to sleep at night because your mind is troubled all the time - these days [OSQ] Not at all [facility] (I/We) worried [facility] (my/our) food would run out before (I/we) got money to buy more. Sometimes true [facility] Start: 02-28-2022 Sex Male (finding) Tierra hernandez Start: 07-10-2024 Tobacco use and exposure Former smokeless tobacco user [facility] [employer] End: 1970 History of tobacco use User of smokeless tobacco [facility] Do you feel stress - tense, restless, nervous, or anxious, or unable to sleep at night because your mind is troubled all the time - these days [OSQ] Very much [facility] Medical Equipment Procedure Code Equipment Code Equipment [...] 0 04/09/20 8:52 AM Hugo Hamilton MA [facility] 03-17-2025 Total score [AUDIT-C] 0 03/17/20 8:09 AM HENRIKT Hugo Botello MA [facility] 02-14-2024 Are you deaf, or do you have serious difficulty hearing No 02/14/2024 9:30 AM EDT Juice Oscar RN No [facility] 02-14-2024 Are you blind, or do you have serious difficulty seeing, even when wearing glasses No 02/14/2024 9:30 AM HENRIKT Juice Oscar RN No [facility] 02-14-2024 Do you have serious difficulty walking or climbing stairs No 02/14/2024 9:30 AM EDJuice Zuniga RN No [facility] 02-14-2024 Do you have difficul ty dressing or bathing No 02/14/2024 9:30 AM EDT Juice Oscar RN No [facility] 02-14-2024 Because of a physica l, mental, or emotional condition, do you have difficulty doing errands alone such as visiting a physician's office or shopping No 02/14/2024 9:30 AM EDT Juice Oscar RN No 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 Author Type: Physician Animal Keeper Type: Progress Notes Filed: 06/03/2025 10:50 Note [...] the duodenal b (more content not included)... [facility] 05-14-2025 Note HNO ID: [id number] Author: ANALY DUMONT, DO Service: ? Author [...] neoplasm of colon Coronary artery disease involving kaw coronary artery of kaw heart without angina pectoris Dr. Tineo Essential hypertension Heart a (more content not included)... [facility] 04-21-2025 Note HNO ID: [id number] Author: ALEJANDRA VIRAMONTES APRN.PAPER PROCESSING MACHINE HELPER Service: ? Author Type: Nurse Practitioner Type: Progress Notes Filed: 04/21/2025 15:15 Note Text: 04/21/2025 Patient presents with: Follow Up Results Recording using W[employer] software for draft documentation of the visit was discussed with the patient/authorized construction representative; all questions welcomed and answered. Patient/authorized construction representative agreed to proceed SUBJECTIVE: This is a [...] neoplasm of colon Coronary artery disease involving kaw coronary artery of kaw heart without angina pectoris Dr. Tineo Essential [...] block, mediastinal lymph node dissection Psoriasis [facility] S/P lobectomy of lung S/P triple vessel [...] routine visit, sooner if needed Alejandra PodlogSESAR alcala.PAPER PROCESSING MACHINE HELPER Prescription instructions reviewed with patient as applicable. [...] packs/day: 0.00 Ave (more content not included)... [facility] 04-15-2025 Instructions Saray Marinelli APRN.CNP - [...] any concerning symptoms documented in this encounter [facility] 04-15-2025 History of Presen t illness Narrative FOLLOW UP VISIT - ENDOSCOPY Sharonda Flores 1955 [id number] REFERRING PHYSICIAN: No referring provider defined for [...] Saray Marinelli APRN.RENEE documented in this encounter [facility] 04-15-2025 Note HNO ID: [id number] Author: SARAY MARINELLI APRN.RENEE Service: ? Author Type: Nurse Practitioner Type: Progress Notes Filed: 04/15/2025 10:12 Note Text: FOLLOW UP VISIT - ENDOSCOPY Sharonda Flores 1955 [id number] REFERRING PHYSICIAN: No referring provider defined for [...] needed for worsening/no improvement. Sarayumu Marinelli APRN.RENEE [facility] 04-15-2025 Note HNO ID: [id number] Author: CRISTO LOERA, DO Service: ? Author Type: Physician Type: Progress Notes Filed: 04/15/2025 16:31 Note Text: [facility] [place] DEPARTMENT OF VASCULAR SURGERY OUTPATIENT VISIT DATE April 15, 2025 OUTPATIENT VISIT TYPE CONSULTATION SERVICE DATE: 04/15/2025 SERVICE TIME: 8:18 AM PRIMARY CARE PHYSICIAN: Tima Tello MD REFERRING PROVIDER: Tima Tello [id number] [facility] [id number] Consult requested for an opinion regarding the [...] neoplasm of colon Coronary artery disease involving kaw coronary artery of kaw heart without angina pectoris Dr. Tineo Essential [...] block, mediastinal lymph node dissection Psoriasis [facility] S/P lobectomy of lung S/P triple vessel [...] Positive for sh (more content not included)... [facility] 04-15-2025 History of Presen t illness Narrative Images from the original note were not included. [facility] [place] DEPARTMENT OF VASCULAR SURGERY OUTPATIENT VISIT DATE April 15, 2025 OUTPATIENT VISIT TYPE CONSULTATION SERVICE DATE: 04/15/2025 SERVICE TIME: 8:18 AM PRIMARY CARE PHYSICIAN: Tima Tello MD REFERRING PROVIDER: Tima Tello [id number] [facility] [id number] Consult requested for an opinion regarding the [...] neoplasm of colon Coronary artery disease involving kaw coronary artery of kaw heart without angina pectoris Dr. Tineo Essential [...] block, mediastinal lymph node dissection Psoriasis [facility] S/P lobectomy of lung S/P triple vessel [...] Twice a month documented in this encounter [facility] 04-14-2025 Telephone encounter Note Pended rx, PROCESS SUPERVISOR to sign. BETH Dr. Tineo 11/13/24. CBC completed 03/19/25 [facility] [facility] Miscellaneous Notes Pended rx, PROCESS SUPERVISOR to sign. BETH Dr. Tineo 11/13/24. CBC completed 03/19/25 Requesting refill clopidogrel (Plavix) 75 MG tablet [facility] [place] documented in this encounter [facility] 04-14-2025 Telephone encounter Note Requesting refill clopidogrel (Plavix) 75 MG tablet [facility] [place] [facility] 04-14-2025 Telephone encounter Note Discussed with pt, he is reaching out to Dr. Tineo's office for refills. [facility] 04-14-2025 Miscellaneous Notes Discussed with pt, he is reaching out to Dr. Tineo's office for refills. Name of caller: Len Contact phone number: [phone] Relationship to Patient: [facility] Chief Complaint/Reason for [...] their call: Yes documented in this encounter [facility] 04-13-2025 Telephone encounter Note Name of caller: Len Contact phone number: [phone] Relationship to Patient: patient Provider: [facility] Practice: Cardiothoracic Surgery Chief Complaint/Reason for [...] business hours to return their call: Yes [facility] 04-13-2025 Miscellaneous Notes Name of caller: Len Contact phone number: [phone] Relationship to Patient: patient Provider: [facility] Practice: Cardiothoracic Surgery Chief Complaint/Reason for [...] their call: Yes documented in this encounter [facility] 04-11-2025 History of Presen t illness Narrative [...] PATIENT PRESENTS WITH AN IMPLANTABLE OR ATTACHED ARMATURE TESTER: No ALLERGIES: Reviewed and unchanged CONTRAST ALLERGY: [...] TIME: 2:21 PM documented in this encounter [facility] 04-11-2025 Note HNO ID: [id number] Author: KYA RAMIREZ RT(R) Service: ? Author Type: Material Movers Type: Progress Notes Filed: 04/11/2025 14:21 Note [...] PATIENT PRESENTS WITH AN IMPLANTABLE OR ATTACHED ARMATURE TESTER: No ALLERGIES: Reviewed and unchanged CONTRAST ALLERGY: [...] DATE: April 11, 2025 TIME: 2:21 PM [facility] 04-09-2025 History of Presen t illness [...] neoplasm of colon Coronary artery disease involving kaw coronary artery of kaw heart without angina pectoris Dr. Tineo Essential [...] block, mediastinal lymph node dissection Psoriasis [facility] S/P lobectomy of lung S/P triple vessel [...] which included preparing to see the patient, [id number] patient care, completing clinical documentation, obtaining and/or reviewing separately obtained history, performing a medically appropriate examination, counseling and educating the patient/family/caregiver, ordering medications, tests, or procedures, communicating with other HCPs (not separately reported), and communicating results to the patient/family/caregiver. Analy Dumont DO documented in this encounter [facility] 04-09-2025 Note HNO ID: [id number] Author: ANALY DUMONT DO Service: ? Author [...] neoplasm of colon Coronary artery disease involving kaw coronary artery of kaw heart without angina pectoris Dr. Tineo Essential hypertension Heart attack (HCC) 2011 s/p stents History of tobacco use HLD (hyperlipidemia) Multiple lung nodules on CT 11/09/2023 PET scan ordered PAD (peripheral artery disease) 04/04/2024 Mild to moderate disease LLE on LINH Primary lung adenocarcinoma, (more content not included)... [facility] 04-08-2025 Note Formatting of this n ote might be different from the original. The patient received a copy of Colonoscopy and EGD discharge instructions that contain information for how to contact the physician who performed the procedure and when to seek medical care. [facility] 04-08-2025 Miscellaneous Notes The patient received a copy of Colonoscopy and EGD discharge instructions that contain information for how to contact the physician who performed the procedure and when to seek medical care. documented in this encounter [facility] 04-08-2025 History and physical note HISTORY AND PHYSICAL Sharonda Flores : 1955 REFERRING PHYSICIAN: Tima Tello [address] [facility] [address] CHIEF COMPLAINT: Patient presents with: Rectal Problem: [...] CABG last year. Hx of CABG (06/2024), MD s/p stents (2011), HLD, HTN & AAA- follow with cardiology On plavix He CP, SOB, dizziness, palpitations, syncope, edema, recent hospitalizations Hx of RUL wedge 01/2024 d/t lung cancer. No chemo or radiation. Sharonda has undergone prior endoscopy. Last colonoscopy was 07/[address] Ariza [address] [facility]. Sedation: Midazolam 5 mg IV, Fentanyl 100 [...] neoplasm of colon Coronary artery disease involving kaw coronary artery of kaw heart without angina pectoris Dr. Tineo Essential [...] block, mediastinal lymph node dissection Psoriasis [facility] S/P lobectomy of lung S/P triple vessel [...] edited and updated as necessary. Saray Marinelli APRN.PAPER PROCESSING MACHINE HELPER [facility] Work Phone: 04-08-2025 History and physical note HISTORY AND PHYSICAL Sharonda Flores : 1955 REFERRING PHYSICIAN: Tima Tello [address] [facility] [address] CHIEF COMPLAINT: Patient presents with: Rectal Problem: [...] CABG last year. Hx of CABG (06/2024), MD s/p stents (2011), HLD, HTN & AAA- follow with cardiology On plavix He CP, SOB, dizziness, palpitations, syncope, edema, recent hospitalizations Hx of RUL wedge 01/2024 d/t lung cancer. No chemo or radiation. Sharonda has undergone prior endoscopy. Last colonoscopy was 07/[address] Ariza [address] [facility]. Sedation: Midazolam 5 mg IV, Fentanyl 100 [...] neoplasm of colon Coronary artery disease involving kaw coronary artery of kaw heart without angina pectoris Dr. Tineo Essential [...] block, mediastinal lymph node dissection Psoriasis [facility] S/P lobectomy of lung S/P triple vessel [...] edited and updated as necessary. Saray Marinelli APRN.PAPER PROCESSING MACHINE HELPER documented in this encounter [facility] 03-27-2025 History of Presen t illness Narrative [...] PATIENT PRESENTS WITH AN IMPLANTABLE OR ATTACHED ARMATURE TESTER: No RADIOLOGY DEPARTMENT: Ultrasound PERIPHERAL IV DATA: Not applicable SIGNED BY: Milli England RDMS March 27, 2025 7:41 AM documented in this encounter [facility] 03-27-2025 Note HNO ID: [id number] Author: MILLI ENGLAND RDMS Service: ? Author Type: Material Movers Type: Progress Notes Filed: 03/27/2025 07:41 Note [...] PATIENT PRESENTS WITH AN IMPLANTABLE OR ATTACHED ARMATURE TESTER: No RADIOLOGY DEPARTMENT: Ultrasound PERIPHERAL IV DATA: Not applicable SIGNED BY: Milli England RDMS March 27, 2025 7:41 AM [facility] 03-26-2025 History of Presen t illness [...] neoplasm of colon Coronary artery disease involving kaw coronary artery of kaw heart without angina pectoris Dr. Tineo Essential [...] block, mediastinal lymph node dissection Psoriasis [facility] S/P lobectomy of lung S/P triple vessel [...] nodules are visualized. 2. No thoracic lymphadenopathy High Lead Yarder: PSCB Transcribe Date/Time: Mar 18 2025 2:48P [...] which included preparing to see the patient, [id number] patient care, completing clinical documentation, performing a medically appropriate examination, counseling and educating the patient/family/caregiver, and ordering medications, tests, or procedures. documented in this encounter [facility] 03-26-2025 Note HNO ID: [id number] Author: GISSELLE PHELAN APRN.CNP Service: ? Author [...] neoplasm of colon Coronary artery disease involving kaw coronary artery of kaw heart without angina pectoris Dr. Tineo Essential [...] block, mediastinal lymph node dissection Psoriasis [facility] S/P lobectomy of lung S/P triple vessel [...] nodules are visualized. 2. No thoracic lymphadenopathy High Lead Yarder: PSCB Transcribe Date/Time: Mar 18 2025 2:48P [...] acute distress. Appea (more content not included)... [facility] 03-21-2025 Note HNO ID: [id number] Author: ?, ?, ? Service: ? Author [...] screening? N/A Last Colonoscopy: 08-03-2021 Stan Lewis [facility] 03-21-2025 History of Presen t illness [...] : 1955 REFERRING PHYSICIAN: Tima Tello [address] [facility] [address] CHIEF COMPLAINT: Patient presents with: Rectal Problem: [...] CABG last year. Hx of CABG (06/2024), MD s/p stents (2011), HLD, HTN & AAA- follow with cardiology On plavix He CP, SOB, dizziness, palpitations, syncope, edema, recent hospitalizations Hx of RUL wedge 01/2024 d/t lung cancer. No chemo or radiation. Sharonda has undergone prior endoscopy. Last colonoscopy was 07/[address] Ariza [address] [facility]. Sedation: Midazolam 5 mg IV, Fentanyl 100 [...] neoplasm of colon Coronary artery disease involving kaw coronary artery of kaw heart without angina pectoris Dr. Tineo Essential [...] block, mediastinal lymph node dissection Psoriasis [facility] S/P lobectomy of lung S/P triple vessel [...] Twice a month documented in this encounter [facility] 03-21-2025 Note HNO ID: [id number] Author: SARAY MARINELLI APRN.CNP Service: ? Author Type: Nurse Practitioner Type: Progress Notes Filed: 03/21/2025 09:26 Note Text: HISTORY AND PHYSICAL Sharonda Flores : 1955 REFERRING PHYSICIAN: Tima Tello [address] [facility] [address] CHIEF COMPLAINT: Patient presents with: Rectal Problem: [...] CABG last year. Hx of CABG (06/2024), MD s/p stents (2011), HLD, HTN AND AAA- follow with cardiology On plavix He CP, SOB, dizziness, palpitations, syncope, edema, recent hospitalizations Hx of RUL wedge 01/2024 d/t lung cancer. No chemo or radiation. Sharonda has undergone prior endoscopy. Last colonoscopy was 07/[address] Ariza [address] [facility]. Sedation: Midazolam 5 mg IV, Fentanyl 100 [...] neoplasm of colon Coronary artery disease involving kaw coronary artery of kaw heart without angina pectoris Dr. Tineo Essential [...] block, mediastinal lymph node dissection Psoriasis [facility] S/P lobectomy of lung S/P triple vessel [...] Problems Paternal Grandmother (more content not included)... [facility] 03-20-2025 Telephone encounter Note Spoke with patient and he verbalized understanding. States he takes both an 81 mg baby aspirin and Plavix. Tess Dobson MA [facility] 03-20-2025 Miscellaneous Notes Spoke with patient and [...] Tima Tello MD documented in this encounter [facility] 03-20-2025 Telephone encounter Note ----- Message from [...] 11:03 AM EDT To: Tima Tello MD [facility] 03-20-2025 Telephone encounter Note Patient informed and verbalized understanding. Tess Dobson MA [facility] 03-20-2025 Telephone encounter Note ----- Message from Tima Tello MD sent at 03/20/2025 9:41 AM EDT ----- Normal labs aside from low platelets which are chronic and stable. Awaiting FOBT results and CT scan. Continue treatment as discussed in office. ----- Message ----- From: Lab, Background User Sent: 03/19/2025 2:56 PM EDT To: Tima Tello MD [facility] 03-19-2025 Telephone encounter Note Spoke w pt and this is scheduled as directed. (Order was linked to an another CT ordered by Lyndsey) Rhonda Arroyo [facility] 03-19-2025 Miscellaneous Notes Spoke w pt and [...] Analy Dumont DO documented in this encounter [facility] 03-19-2025 Telephone encounter Note Please schedule CT chest and serum creatinine in 6 mo followed by OV one week later. [facility] 03-19-2025 Telephone encounter Note Orders for CT are signed under this encounter. They were signed when this was previously sent to me. [facility] 03-19-2025 Telephone encounter Note We dont show these orders yet for ct or labs. Rhonda Arroyo [facility] 03-19-2025 Instructions Tima Tello MD - 03/19/2025 [...] chronic health issues documented in this encounter [facility] 03-19-2025 Note HNO ID: [id number] Author: TIMA TELLO MD Service: ? Author Type: Physician Type: Progress Notes Filed: 03/19/2025 08:06 Note Text: Chief Complaint Patient presents with: Constipation Rectal Problem Recording using Wrike software for draft documentation of the visit was discussed with the patient/authorized construction representative; all questions welcomed and answered. Patient/authorized construction representative agreed to proceed HPI Sharonda Flores is [...] neoplasm of colon Coronary artery disease involving kaw coronary artery of kaw heart without angina pectoris Dr. Tineo Essential [...] block, mediastinal lymph node dissection Psoriasis [facility] S/P lobectomy of lung S/P triple vessel [...] mg Tab Take (more content not included)... [facility] 03-19-2025 History of Presen t illness Narrative Chief Complaint Patient presents with: Constipation Rectal Problem Recording using Wrike software for draft documentation of the visit was discussed with the patient/authorized construction representative; all questions welcomed and answered. Patient/authorized construction representative agreed to proceed HPI Sharonda Flores is [...] neoplasm of colon Coronary artery disease involving kaw coronary artery of kaw heart without angina pectoris Dr. Tineo Essential [...] block, mediastinal lymph node dissection Psoriasis [facility] S/P lobectomy of lung S/P triple vessel [...] according to line specific nursing protocol in theMS contrast administration guidelines link. ezetimibe (ZETIA) 10 [...] Twice a month documented in this encounter [facility] 03-18-2025 Telephone encounter Note Thank you. Order filed. [facility] 03-18-2025 Telephone encounter Note Pt notified and voices understanding. Please schedule CT chest and serum creatinine in 6 mo followed by OV one week later. CT pended. Cathi Barfield LPN [facility] 03-18-2025 Telephone encounter Note Let him know CT chest showed no sign of lung cancer. Please schedule for serum Cr CT chest with contrast followed by office visit about a week later in about 6 months. Analy Dumont DO [facility] 03-18-2025 Note HNO ID: [id number] Author: CHAD DAVIES MA Service: ? Author Type: Aerospace Physiological Technician Type: Progress Notes Filed: 03/18/2025 13:22 Note [...] Patient scheduled/pended orders: [facility]NALY [facility]UM[facility] OV Navigation Signature: Chad Davies MA March 18, 2025 1:20 PM [facility] 03-18-2025 History of Presen t illness [...] Patient scheduled/pended orders: Follow-up [facility]ment [facility] - [facility]HEL[facility]TH [facility]UM[facility] - OV Navigation [...] or unnecessary to reach patient: Left message Office Maxhart message sent Navigation Signature: Chad Davies MA March 18, 2025 8:22 AM documented in this encounter [facility] 03-18-2025 Note HNO ID: [id number] Author: CHAD DAVIES MA Service: ? Author Type: Aerospace Physiological Technician Type: Progress Notes Filed: 03/18/2025 13:20 Note [...] Davies MA March 18, 2025 1:00 PM [facility] 03-18-2025 Note HNO ID: [id number] Author: CHAD DAVIES MA Service: ? Author Type: Aerospace Physiological Technician Type: Progress Notes Filed: 03/18/2025 10:07 Note [...] Davies MA March 18, 2025 8:22 AM [facility] 03-18-2025 Note Patient Outreach (RILEY TNAV) SHARONDA FLORES ([id number]) 1955 M [facility] Date Time Provider Department 03/18/25 CHAD DAVIES [...] POPULATION HEALTH NAVIGATION OUTREACH Action/FYI [facility] Topic Due (Y or [...] scheduled/pended orders: Follow-up Appointment 03/19/2025 in [facility] with TIMA TELLO - FOLLOW UP 03/26/2025 in [facility] with GISSELLE PHELAN - 6 [facility] F/U 04/09/2025 in [facility] with ANALY DUMONT - OV Navigation [...] USE DISORDER [F17.200] 06/03/2008 SPRAIN SHOULDER/ARM NOS [[id number]] 06/03/2008 JOINT PAIN-ANKLE [M25.579] 06/03/2008 HERPES SIMPLEX NOS [B00.9] 06/03/2008 MIXED HYPERLIPIDEMIA [E78.2] 07/02/2008 SCREENING MAL NEOP-COLON [Z12.11] 10/08/2008 BENIGN NEOPLASM LG BOWEL [D12.6] 10/08/2008 Coronary artery disease involving kaw lacey* Essential hypertension [I10] Thrombocytopenia (HCC) [D69.6] Tinnitus of both ears [H93.13] Psoriasis [L40.9] Abdominal aortic aneurysm (AAA) without rupture*06/08/2021 At risk for sleep apnea [Z91.89] 11/29/20[address] nodules on CT [R91.8] 11/09/2023 Lung nodule [R91.1] 12/15/2023 S/P lobectomy of lung [Z90.2] 02/09/2024 Primary lung adenocarcinoma, right (HCC) [C34.9*03/11/2024 Encounter Status:Closed by CHAD DAVIES on 03/18/25 [facility] 03-17-2025 History of Presen t illness Narrative Patient left without being seen. Analy Dumont DO documented in this encounter [facility] 03-17-2025 Note HNO ID: [id number] Author: ANALY DUMONT DO Service: ? Author Type: Physician Type: Progress Notes Filed: 03/17/2025 08:34 Note Text: Patient left without being seen. Analy Dumont DO [facility] 03-11-2025 History of Presen t illness [...] PATIENT PRESENTS WITH AN IMPLANTABLE OR ATTACHED ARMATURE TESTER: No ALLERGIES: Reviewed and unchanged CONTRAST ALLERGY: [...] TIME: 1:46 PM documented in this encounter [facility] 03-11-2025 Note HNO ID: [id number] Author: KYA RAMIREZ RT(R) Service: ? Author Type: Material Movers Type: Progress Notes Filed: 03/11/2025 13:46 Note [...] PATIENT PRESENTS WITH AN IMPLANTABLE OR ATTACHED ARMATURE TESTER: No ALLERGIES: Reviewed and unchanged CONTRAST ALLERGY: [...] DATE: March 11, 2025 TIME: 1:46 PM [facility] 11-13-2024 History of Presen t illness Narrative Images from the original note were not included. [facility] CARDIOLOGY - [place] [address] [facility] [address] Dept: [phone] Dept Visit type: Established : 1955 Reason for Visit: Annual Exam Assessment and Plan 1. Coronary artery disease involving kaw coronary artery of kaw heart without angina pectoris 2. Mixed hyperlipidemia [...] REMOVAL 02/09/2024 Congenital heart disease Hyperlipidemia Hypertension MD, old [facility] Sleep apnea NO CPAP [...] Becky Tineo MD documented in this encounter [facility] 11-13-2024 Miscellaneous Notes Addended by: BECKY TINEO on: 11/13/2024 02:04 PM Modules accepted: Orders documented in this encounter [facility] 11-13-2024 Note Addended by: BECKY GNOZALEZ on: 11/13/2024 02:04 PM Modules accepted: Orders [facility] 11-13-2024 Note Addended by: BECKY GONZALEZ on: 11/13/2024 02:04 PM Modules accepted: Orders [facility] 10-25-2024 History of Presen t illness Narrative 10/25/24 Community Health Worker Patient active with: [facility] RN MARCI Grant Reason for Call: [facility] outreach Chart review completed. Follow up Appointments 11/13 Cardiology Placed a phone call no answer, left voice message stating reason for call. Left contact information for call back. [facility] end call. documented in this encounter [facility] 10-09-2024 History of Presen t illness Narrative Images from the original note were not included. [facility]: [facility] [address] [facility] [address] Dept: [phone] Dept Loc: [phone] Visit type: Established patient Reason for Visit: [...] stated that they are currently in the [facility]. If the patient is a minor, permission has been obtained by the parent or guardian for the patient to receive medical care at this visit. Subjective HPI: Sharonda Flores is a 68 y.o. male referred by Dr. Tineo for CABG. Patient's PMHx includes CAD (s/p several PCI, most recently 2011 - LAD, LCx, distal RCA with known KNOT CUTTER D2), preserved LVEF (65%), HTN, HLD, PAD (follows with vascular at [place]), prior tobacco use, pulmonary nodules, adenocarcinoma s/p RUL lobectomy 01/2024 (follows with Pulmonology), and psoriasis. Patient had presented to [place] ED with a sharp pain in the [...] 1 Bottle by mouth 2 times daily. 65883 mL 1 No facility-administered medications prior to visit. Past Medical History: Diagnosis Date Arrhythmia v-fib/ arrest CAD (coronary artery disease) Cancer (CMS/HCC) (HCC) LUNG UPPER RIGHT - SURGERY FOR REMOVAL 02/09/2024 Congenital heart disease Hyperlipidemia Hypertension MD, old 2011- [facility] Sleep apnea NO CPAP WORN Objective Patient reported: Failed to redirect to the Timeline version of the [employer] Smart[employer]. There were no vitals filed for [...] SESAR Muniz CNP documented in this encounter [facility] 10-01-2024 History of Presen t illness Narrative 10/01/24 Community Health Worker Patient active with: [facility] RN MARCI Grant Chart review completed. Follow up Appointments 10/09 Cardio Thoracic Surgery 11/13 Cardiology Placed a call no answer, left voice message stating reason for call. Left contact information for call back. Outreach scheduled documented in this encounter [facility] 09-24-2024 History of Presen t illness Narrative [...] neoplasm of colon Coronary artery disease involving kaw coronary artery of kaw heart without angina pectoris Dr. Tineo Essential [...] block, mediastinal lymph node dissection Psoriasis [facility] S/P lobectomy of lung S/P triple vessel [...] in the trachea 3. No thoracic lymphadenopathy High Lead Yarder[facility] Transcribe Date/Time: Sep 11 2024 9:31A Dictated by : JOANNA LYONS MD This examination was interpreted and the report reviewed and electronically signed by: JOANNA LYONS MD on Sep 11 2024 9:46AM EST Results-Findings * * *Final Report* * * DATE OF EXAM: Sep 06 2024 3:26PM [id number] - CT CHEST W IVCON / [...] which included preparing to see the patient, [id number] patient care, completing clinical documentation, performing a medically appropriate examination, counseling and educating the patient/family/caregiver, and communicating results to the patient/family/caregiver. documented in this encounter [facility] 09-24-2024 Note HNO ID: [id number] Author: GISSELLE PHELAN APRN.CNP Service: ? Author [...] neoplasm of colon Coronary artery disease involving kaw coronary artery of kaw heart without angina pectoris Dr. Tineo Essential hypertension Heart attack (HCC) 2011 s/p stents History of tobacco use HLD (hyperlipidemia) Multiple lung nodules on CT 11/09/2023 PET scan ordered PAD (peripheral artery disease) ([facility]) 04/04/2024 Mild to moderate disease LLE on LINH Primary lung adenocarcinoma, right (HCC) RUL,s/p 02/09/24 flexible bronchoscopy, right VATS, right upper lobe wedge resection, cryo nerve block, mediastinal lymph node dissection Psoriasis [facility] S/P lobectomy of lung S/P triple vessel [...] in the trachea 3. No thoracic lymphadenopathy High Lead Yarder: PSCB Transcribe Date/Time: Sep 11 2024 9:31A Dictated by : JOANNA LYONS MD This examination was interpreted and the report reviewed and electronically signed by: JOANNA LYONS MD on Sep 11 2024 9:46AM EST Results-Findings * * *Final Report* * * DATE OF EXAM: Sep 06 2024 3:26PM [id number] - CT CHEST W IVCON / [...] in the s (more content not included)... [facility] 09-17-2024 History of Presen t illness [...] Recently completed CT chest PAD: followed with [facility] on 06/07/2024. No changes in current regime. PAST MEDICAL HISTORY Diagnosis Date Abdominal aortic aneurysm (AAA) without rupture (HCC) 3 x 3.1 cm 05/2021, repeat 1 year. Benign neoplasm of colon Coronary artery disease involving kaw coronary artery of kaw heart without angina pectoris Dr. Tineo Essential [...] block, mediastinal lymph node dissection Psoriasis [facility] S/[facility] lobectomy of lung Thrombocytopenia (HCC) Tinnitus [...] issues arise. 3. Coronary artery disease involving kaw coronary artery of kaw heart without angina pectoris - ICD9: 414.01, [...] oncology as scheduled in February Alejandra Viramontes APRN.PAPER PROCESSING MACHINE HELPER Prescription instructions reviewed with patient as applicable. [...] 4 - Moderate documented in this encounter [facility] 09-17-2024 Note HNO ID: [id number] Author: ALEJANDRA VIRAMONTES APRN.RENEE Service: ? Author [...] Recently completed CT chest PAD: followed with [facility] on 06/07/2024. No changes in current regime. PAST MEDICAL HISTORY Diagnosis Date Abdominal aortic aneurysm (AAA) without rupture (HCC) 3 x 3.1 cm 05/2021, repeat 1 year. Benign neoplasm of colon Coronary artery disease involving kaw coronary artery of kaw heart without angina pectoris Dr. Tineo Essential [...] block, mediastinal lymph node dissection Psoriasis [facility] S/P lobectomy of lung Thrombocytopenia (HCC) Tinnitus [...] or lesions to exposed skin Latest Ref [facility] 09/02/2024 Cholesterol, Total <200 mg/dL 148 Triglyceride [...] - Follow up (more content not included)... [facility] 09-12-2024 Telephone encounter Note Pt called back. Info relayed and pt verbalized understanding. Teresa Cortes MA [facility] 09-12-2024 Miscellaneous Notes Pt called back. Info relayed and pt verbalized understanding. Teresa Cortes MA documented in this encounter [facility] 09-09-2024 History of Presen t illness Narrative Images from the original note were not included. [facility]: [facility] [address] [facility] [address] Dept: [phone] Dept Loc: [phone] Visit type: Established patient Reason for Visit: [...] reasonable under the circumstances: Recently assessed in [facility] . The patient has been advised of [...] that they are currently in the state [facility]. If the patient is a minor, permission has been obtained by the parent or guardian for the patient to receive medical care at this visit. Subjective HPI: Sharonda Flores is a 68 y.o. male referred by Dr. Tineo for CABG. Patient's PMHx includes CAD (s/p several PCI, most recently 2011 - LAD, LCx, distal RCA with known KNOT CUTTER D2), preserved LVEF (65%), HTN, HLD, PAD (follows with vascular at [facility]), prior tobacco use, pulmonary nodules, adenocarcinoma s/p RUL lobectomy 01/2024 (follows with Pulmonology), and psoriasis. Patient had presented to [place] ED with a sharp pain in the [...] REMOVAL 02/09/2024 Congenital heart disease Hyperlipidemia Hypertension MD, old 2011- [facility] Sleep apnea NO CPAP WORN Objective Patient reported: Failed to redirect to the Timeline version of the [employer] SmartLink. There were no vitals filed for [...] SESAR Muniz CNP documented in this encounter [facility] 09-09-2024 Note HNO ID: [id number] Author: HAKAN BLACWKELL, ? Service: ? Author Type: Nurse Practitioner [...] neoplasm of colon Coronary artery disease involving kaw coronary artery of kaw heart without (more content not included)... [facility] 09-09-2024 History of Presen t illness [...] neoplasm of colon Coronary artery disease involving kaw coronary artery of kaw heart without angina pectoris Dr. Tineo Essential [...] block, mediastinal lymph node dissection Psoriasis [facility] S/P lobectomy of lung Thrombocytopenia (HCC) Tinnitus [...] or concerns in the meantime. Hakan Blackwell APRN.PAPER PROCESSING MACHINE HELPER I spent a total of 30 minutes on the date of the service which included preparing to see the patient, [id number] patient care, completing clinical documentation, obtaining and/or [...] of this patient. documented in this encounter [facility] 09-06-2024 History of Presen t illness Narrative [...] PATIENT PRESENTS WITH AN IMPLANTABLE OR ATTACHED ARMATURE TESTER: No ALLERGIES: Reviewed and unchanged CONTRAST ALLERGY: [...] TIME: 3:58 PM documented in this encounter [facility] 09-06-2024 Note HNO ID: [id number] Author: KYA RAMIREZ RT(R) Service: ? Author Type: Material Movers Type: Progress Notes Filed: 09/06/2024 15:58 Note [...] PATIENT PRESENTS WITH AN IMPLANTABLE OR ATTACHED ARMATURE TESTER: No ALLERGIES: Reviewed and unchanged CONTRAST ALLERGY: [...] DATE: September 06, 2024 TIME: 3:58 PM [facility] 08-28-2024 History of Presen t illness Narrative Images from the original note were not included. [facility]: [facility] [address] [facility] [address] [facility] [address] Dept: [phone] Dept Loc: [phone] Visit type: Established patient Reason for Visit: [...] that they are currently in the state [facility]. If the patient is a minor, permission has been obtained by the parent or guardian for the patient to receive medical care at this visit. Subjective HPI: Sharonda Flores is a 68 y.o. male referred by Dr. Tineo for CABG. Patient's PMHx includes CAD (s/p several PCI, most recently 2011 - LAD, LCx, distal RCA with known KNOT CUTTER D2), preserved LVEF (65%), HTN, HLD, PAD (follows with vascular at [facility]), prior tobacco use, pulmonary nodules, adenocarcinoma s/p RUL lobectomy 01/2024 (follows with Pulmonology), and psoriasis. Patient had presented to [place] ED with a sharp pain in the [...] REMOVAL 02/09/2024 Congenital heart disease Hyperlipidemia Hypertension MD, old 2011- [facility] Sleep apnea NO CPAP WORN Objective Patient reported: Failed to redirect to the Timeline version of the [employer] SmartLink. There were no vitals filed for [...] SESAR Muniz CNP documented in this encounter [facility] 08-20-2024 Note 08/20/24 104 General Care Management Assessment completed with: Patient Enrolled in care management program: Yes Living arrangement: Alone Type of residence: Private residence Home care services: No Equipment used at home: None Communication device: Yes Bed or wheelchair confined: No Medication adherence problem: No Difficulty keeping appointments: No [facility] 08-20-2024 History of Presen t illness [...] if needed. Done documented in this encounter [facility] 08-16-2024 History of Presen t illness Narrative EMR reviewed. Patient enrolled in [facility]ulatory Cardiac 90-day BPCI Program post-hospital [...] week phone call and PRN with [facility]. Future outreach scheduled. Weight restriction measures 1-4 weeks from date of surgery- 10lbs weight restriction: 5-8 weeks from date of surgery- 20lbs weight restriction: 9-12 weeks from date of surgery-30lbs weight restriction approximate end date: Reason for Visit: Follow-up 08/14/24 Assessment and Plan 1. S/P CABG (coronary artery bypass graft) 2. 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 [...] PCP: Ramya Galvez documented in this encounter [facility] 08-14-2024 History of Presen t illness Narrative Images from the original note were not included. [facility]: [facility] [address] [facility] [address] Dept: [phone] Dept Loc: [phone] Visit type: Established patient Reason for Visit: Follow-up Assessment and Plan 1. S/P CABG (coronary artery bypass graft) 2. 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 [...] - LAD, LCx, distal RCA with known KNOT CUTTER D2), preserved LVEF (65%), HTN, HLD, PAD (follows with vascular at [facility]), prior tobacco use, pulmonary nodules, adenocarcinoma s/p RUL lobectomy 01/2024 (follows with Pulmonology), and psoriasis. Patient had presented to [place] ED with a sharp pain in the [...] REMOVAL 02/09/2024 Congenital heart disease Hyperlipidemia Hypertension MD, old 2011- [facility] Sleep apnea NO CPAP WORN Objective Patient reported: Failed to redirect to the Timeline version of the Kik SmartLink. Vitals: 08/14/24 1121 BP: 100/61 Pulse: [...] to office visit Yara Flowers APRN - PAPER PROCESSING MACHINE HELPER documented in this encounter [facility] 08-12-2024 Note HNO ID: [id number] Author: NAN NG PA-C Service: ? Author Type: Physician Animal Keeper Type: Progress Notes Filed: 08/12/2024 15:37 Note Text: Nan Ng PA-C Department of Orthopaedics Orthopaedics [address] [place] [address] Dept: [phone] Dept August 12, 2024 CHIEF COMPLAINT: New, [...] was seen by a provider at the [facility] for his shoulder prior to his [...] be due to previous trauma. Clinical correlation High Lead Yarder: BETTY Transcribe Date/Time: Aug 12 2024 1:43P [...] seen. IMPRESSION: Findings as discussed under Results.. High Lead Yarder: BETTY Transcribe Date/Time: Aug 12 2024 1:42P [...] NO INJURY TECHNIQUE: (more content not included)... [facility] 08-12-2024 History of Presen t illness Narrative Nan Ng PA-C Department of Orthopaedics Orthopaedics [address] [facility] [address] Dept: [phone] Dept August 12, 2024 CHIEF COMPLAINT: New, [...] was seen by a provider at the [facility] for his shoulder prior to his [...] be due to previous trauma. Clinical correlation High Lead Yarder: BETTY Transcribe Date/Time: Aug 12 2024 1:43P [...] seen. IMPRESSION: Findings as discussed under Results.. High Lead Yarder: BETTY Transcribe Date/Time: Aug 12 2024 1:42P [...] anxiety) This note was partially generated using Scint-X voice recognition system, and there may be [...] Tianna Rachel LPN documented in this encounter [facility] 08-12-2024 Note HNO ID: [id number] Author: TIANNA RACHEL LPN Service: ? Author Type: LICENSED NURSE Type: Progress Notes Filed: 08/12/2024 15:37 Note Text: AMB ROOMING INTAKE FLOWSHEET DATA Pain Pain Level: 10 Pain Location: Shoulder-Left Description: Aching, Sore Duration Amount of Time: 7 Duration Units: Months Frequency: Intermittent Intervention/Comfort measure: Reposition, Relaxation Patient presents with: Left Shoulder - New, Pain, Numbness Tianna Rachel LPN [facility] 08-12-2024 History of Presen t illness [...] PATIENT PRESENTS WITH AN IMPLANTABLE OR ATTACHED ARMATURE TESTER: No RADIOLOGY DEPARTMENT: General X-ray: Exam(s) Completed: Spine X-Ray(s): Cervical AP / LAT / OBL Upper Extremity X-Ray(s): Shoulder, AP / TRUE AP / AXILLARY left PERIPHERAL IV DATA: Not applicable SIGNED BY: RT Maurice(Bruno) August 12, 2024 9:35 PM documented in this encounter [facility] 08-12-2024 Note HNO ID: [id number] Author: SHAYLEE WALTERS RT(R) Service: ? Author [...] PATIENT PRESENTS WITH AN IMPLANTABLE OR ATTACHED ARMATURE TESTER: No RADIOLOGY DEPARTMENT: General X-ray: Exam(s) Completed: Spine X-Ray(s): Cervical AP / LAT / OBL Upper Extremity X-Ray(s): Shoulder, AP / TRUE AP / AXILLARY left PERIPHERAL IV DATA: Not applicable SIGNED BY: RT Maurice(R) August 12, 2024 9:35 PM [facility] 08-07-2024 Telephone encounter Note Message released to patient as written. Patient's further questions if applicable: N/A Were all questions from office addressed or relayed to the patient from encounter: Yes [facility] 08-07-2024 Miscellaneous Notes Message released to patient [...] orders to add? documented in this encounter [facility] 08-07-2024 Telephone encounter Note Keep scheduled appointment. Agree with instructions given. [email or web address] Phone: 08-06-2024 Telephone encounter Note Pt s/p [...] Any further instruction or orders to add? [facility] 07-31-2024 Nurse Note 1130- Discharge instructions reviewed with patient including but not limited to medications, follow up appointments, diet, limitations. Patient take by wheelchair to waiting vehicle with brother. [facility] 07-31-2024 Nurse Note 1130- Discharge instructions reviewed [...] to home tomorrow. documented in this encounter [facility] 07-31-2024 Plan of care note Problem: Pain [...] Interventions Goal: Assess Nutritional Intake Outcome: Completed [facility] 07-31-2024 Miscellaneous Notes Problem: Pain - Adult [...] Interventions Goal: Assess Nutritional Intake Outcome: Completed [facility] notified of discharge home today. Patient Choice Patient Name: SHARONDA FLORES Date of : 1955 All Providers Sent Referral Name: [facility] Phone: [phone] Address: [address] [place] [address] Start PACC Note Home Health Referral Educated patient on Home Care and services available. Patient offered choice of available HHC and agreeable to SN/PT services with [facility]. Care Types: [...] is noted as yes - consider a INTERVENTIONAL TECHNOLOGIST evaluation once the patient returns home. START PATIENT REGISTRATION INFORMATION Order Information Order Signing Physician: Brooklynn Martinez DO Service Ordered RN ?: Yes Service Ordered PT ?: Yes Service Ordered OT ?: No Service Ordered ST ?: No Service Ordered INTERVENTIONAL TECHNOLOGIST?:No Service Ordered SHOVEL HANDLE ASSEMBLER?: No Following Physician: Brooklynn Martinez DO Following Physician Overseeing Physician: Brooklynn Martinez DO (Required for Residents only) Agreeable to Follow? Yes Date/Time of Call 07/30/24 12:18 PM, Spoke with: kira alarconcourbano Care Coordination Same Day SOC?: No Primary Care Physician: Tima Tello MD Primary Care Physician Primary Care Physician Address: [address] [place] [address] Visit Instructions: N/A Service Discharge Location Type: Home with Home Care Service Facility Name: N/A Service Floor Facility: N/A Service Room No: N/A Demographics Patient Last Name: Mark Patient First Name: Sharonda Language/Communication Barrier: no Service Address: [address] Service City: [place] Service ST: [place] Service ZIP: [address] Service Other phone numbers: Telephone Information: Emergency Contact: Extended Emergency Contact Information Primary Emergency Contact: Douglas Flores Address: 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 Activity/Weight Bearing: -Up with assistance: up in chair for all meals, ambulate 3-4 times a day -Stretching exercises per PT discharge instructions Discharge Date: pending Referral Source-PACC: (Hospital/Unit): [facility] / T1-109/T1-109 A End PACC Note Problem: [...] Interventions Goal: Assess Nutritional Intake Outcome: Progressing Superintendent Production following case for Discharge Needs. Patient admitted to [facility] ICU s/p CABG x 3 POD # 1. Patient from home alone, is independent, has PCP and prescription coverage. Met with patient at bedside, introduced self and role. Patient agreeable to discharge plan of home with [facility], but does not have anyone to stay with him nor does he plan to stay with anyone. Referral to [facility] for home care. Cardiothoracic Surgery Operative Report [...] Intraoperative transesophageal echocardiogram Surgeon: Lico Martinez DO Animal Keeper(s): [x] Yecenia Rodriguez [] Ramya Daniel [] Heather Gonzalez [] Heather Garcia [] Other Anesthesia: General--Dr. Fredi Buchanan Barnworker Groom: Jazmyn Rodgers Total IV fluids: See anesthesia [...] A two team approach was taken. The bilingual office assistant team performed all aspects of [...] midline with heavy steel wires in a [id number] fashion. The soft tissues were closed in [...] FACS Cardiothoracic Surgery documented in this encounter [facility] 07-31-2024 History of Presen t illness Narrative Images from the original note were not included. OCCUPATIONAL THERAPY [facility] Treatment Note Name/MRN: Sharonda Flores ([id number]) Date of : 1955 Age: 69 y.o. [...] will utilize adaptive techniques to bathe body MD. (Progressing) Start: 07/28/24 Expected End: 08/25/24 Encounter Problems (Resolved) Dressings Lower Extremities Patient will dress lower body MD. (Goal Met) Start: 07/28/24 Expected End: 08/25/24 [...] the original note were not included. Cardiothoracic Surgery/[facility] Progress Note PATIENT NAME: Sharonda Flores DATE: 07/30/24 HPI: Sharonda Flores is a 68 y.o. male referred by Dr. Tineo for CABG. Patient's PMHx includes CAD (s/p several PCI, most recently 2011 - LAD, LCx, distal RCA with known KNOT CUTTER D2), preserved LVEF (65%), HTN, HLD, PAD (follows with vascular at [facility]), prior tobacco use, pulmonary nodules, adenocarcinoma s/p RUL lobectomy 01/2024 (follows with Pulmonology), and psoriasis. Patient had presented to [place] ED with a sharp pain in the [...] BB EF: 07/25/2024- 55% Blood Conservation: Transfused Outpatient Scheduler: Dr. Tineo Cosigned by Tho Stephens DO at 07/30/2024 12:13 PM EST Images from the original note were not included. PHYSICAL THERAPY [facility] Treatment Note Name/MRN: Sharonda Flores ([id number]) Date of : 1955 Age: 69 y.o. [...] - LAD, LCx, distal RCA with known KNOT CUTTER D2), preserved LVEF (65%), HTN, HLD, PAD (follows with vascular at [facility]), prior tobacco use, pulmonary nodules, adenocarcinoma s/p RUL lobectomy 01/2024 (follows with Pulmonology), and psoriasis. Patient had presented to [place] ED with a sharp pain in the [...] concern is shoulder pain. Long discussion with OPERATOR PREFINISH yesterday about OP referrals. Review of Systems [...] shoulder issue. -Office will help coordinate in [place]. GI prophy: PO protonix DVT prophy:TEDs, SCDs, [...] BB EF: 07/25/2024- 55% Blood Conservation: Transfused Outpatient Scheduler: Dr. Tineo Cosigned by Tho Stephens DO at 07/29/2024 11:41 AM EST Images from the original note were not included. PHYSICAL THERAPY [facility] Treatment Note Name/MRN: Sharonda Flores ([id number]) Date of : 1955 Age: 69 y.o. [...] No instability or LOB noted. Device(s) used: InStaff Ambulation Ambulation 1 Assistive device(s) used: InStaff Assist level: SBA Distance (ft): 370ft Quality [...] original note were not included. OCCUPATIONAL THERAPY [facility] Initial Evaluation Name/MRN: Sharonda Flores ([id number]) Evaluation Date: 07/28/2024 Date of : 1955 [...] PRN upon discharge. Admitting Diagnosis: CAD of kaw artery Performance Deficits /Impairments: Increased Pain, Decreased [...] v-fib/ arrest CAD (coronary artery disease) Cancer ([facility]/HCC) ([facility]) LUNG UPPER RIGHT - SURGERY FOR REMOVAL 02/09/2024 Congenital heart disease Hyperlipidemia Hypertension MD, old 2011- [facility] Sleep apnea NO CPAP WORN Past Surgical History: Past Surgical History: Procedure Laterality Date ADENOIDECTOMY APPENDECTOMY CARDIAC CATHETERIZATION N/A 07/05/2024 Performed by Becky Tineo MD at [facility] Cardiac Cath/EP Lab CARDIAC PROCEDURE 03/15/2012 BMS mid dis RCA CARDIAC PROCEDURE 03/2012 REBECCA to mis dist LAD CARDIAC PROCEDURE 05/2012 REBECCA to prox LCx COLONOSCOPY CORONARY ANGIOPLASTY 05/2012 circ, distal RCA, & LAD TONSILLECTOMY Admission Diagnosis: Patient Active Problem List Diagnosis Date Noted 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 Start: 07/28/24 Expected End: 08/25/24 Dressings Lower Extremities Patient will dress lower body MD. Start: 07/28/24 Expected End: 08/25/24 Toileting Patient will complete toileting tasks at standard toilet with modified independence. Start: 07/28/24 Expected End: 08/25/24 Therapy Time Individual Co-Treatment Co-Evaluation Time In 0806 Time Out 0820 Minutes 14 Orquidea Corley OT Patient's Occupational Therapy Plan of Care supervision is transferred to a [facility] Therapy Services Occupational Therapist. Goals and/or treatment plan was established in collaboration with patient/family/other representatives. Images from the original note were not included. Cardiothoracic Surgery/[facility] Progress Note PATIENT NAME: Sharonda Flores DATE: 07/28/24 HPI: Sharonda Flores is a 68 y.o. male referred by Dr. Tineo for CABG. Patient's PMHx includes CAD (s/p several PCI, most recently 2011 - LAD, LCx, distal RCA with known KNOT CUTTER D2), preserved LVEF (65%), HTN, HLD, PAD (follows with vascular at [facility]), prior tobacco use, pulmonary nodules, adenocarcinoma s/p RUL lobectomy 01/2024 (follows with Pulmonology), and psoriasis. Patient had presented to [place] ED with a sharp pain in the [...] EF: 07/25/2024- 55% Blood Conservation: transfused postop Outpatient Scheduler: Dr. Tineo Cosigned by Mike Mosley MD at 07/28/2024 2:39 PM EST Associated attestation - Mike Mosley MD - 07/28/2024 2:39 PM EST I have personally performed a face to face diagnostic evaluation on this patient today on 07/28/24. Labs, imaging studies, and electronic medical record notes on [employer] have been reviewed by me. This note documented and discussed by the []nuclear officer []Fellow [x] CHIQUIS reflects my history, [...] Flores : 1955 AGE: 69 y.o. Room[facility]/T1109 A Admission Date: 07/25/2024 Visit Date: 07/27/2024 Reason for Endocrine Consult: Stress hyperglycemia Provider/Team Requesting Consult: Cardiology PCP: Tima Tello MD Outpt Chain Maker: No ASSESSMENT: Stress induced hyperglycemia Steroid induced [...] CHOLHDLRATIO 6.78 10/21/2019 No results found for: [id number] No results found for: TSH, A5HOKRD, O5FZABZ, THYROIDAB Radiology reportsas per the Radiologist Radiology: POCT glucose meter Result Date: 07/25/2024 Performed by: [facility] [place] [facility], [address] [place] [address] CLIA ID: [id number] History/Other: Past Medical History: Past Medical History: Diagnosis Date Arrhythmia v-fib/ arrest CAD (coronary artery disease) Cancer (CMS/HCC) (HCC) LUNG UPPER RIGHT - SURGERY FOR REMOVAL 02/09/2024 Congenital heart disease Hyperlipidemia Hypertension MD, old 2011- [facility] Sleep apnea NO CPAP WORN Past Surgical History: Past Surgical History: Procedure Laterality Date ADENOIDECTOMY APPENDECTOMY CARDIAC CATHETERIZATION N/A 07/05/2024 Performed by Becky Tineo MD at [facility] Cardiac Cath/EP Lab CARDIAC PROCEDURE 03/15/2012 BMS [...] the original note were not included. Cardiothoracic Surgery/[facility] Progress Note PATIENT NAME: Sharonda Flores DATE: 07/27/24 HPI: Sharonda Flores is a 68 y.o. male referred by Dr. Tineo for CABG. Patient's PMHx includes CAD (s/p several PCI, most recently 2011 - LAD, LCx, distal RCA with known KNOT CUTTER D2), preserved LVEF (65%), HTN, HLD, PAD (follows with vascular at [place]), prior tobacco use, pulmonary nodules, adenocarcinoma s/p RUL lobectomy 01/2024 (follows with Pulmonology), and psoriasis. Patient had presented to [place] ED with a sharp pain in the [...] EF: 07/25/2024- 55% Blood Conservation: transfused postop Outpatient Scheduler: Dr. Tineo Cosigned by Mike Mosley MD at 07/27/2024 11:30 AM EST Associated attestation - Mike Mosley MD - 07/27/2024 11:30 AM EST I have personally performed a face to face diagnostic evaluation on this patient today on 07/27/24. Labs, imaging studies, and electronic medical record notes on [employer] have been reviewed by me. This note documented and discussed by the []nuclear officer []Fellow [x] CHIQUIS reflects my history, [...] original note were not included. PHYSICAL THERAPY [facility] Initial Evaluation Name/MRN: Sharonda Flores ([id number]) Evaluation Date: 07/26/2024 Date of : 1955 Admission Date: 07/25/2024 5:14 AM Age: 69 y.o. Room/Bed: T1-109/T1-109 A Discharge Recommendation: Continue to assess pending progress, Home with assist PRN Equipment Needed: No Assessment IMPRESSION: 69 y.o. pt admitted to [facility] for CAD, s/p CABG x3 07/25. They were Min A for bed mobility, CGA for transfers, and CGA for ambulation. 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 Currently limited d/t fatigue. Would anticipate home [...] arrest CAD (coronary artery disease) Cancer (CMS/HCC) ([facility]) LUNG UPPER RIGHT - SURGERY FOR REMOVAL 02/09/2024 Congenital heart disease Hyperlipidemia Hypertension MD, old 2011- [facility] Sleep apnea NO CPAP WORN Past Surgical History: Past Surgical History: Procedure Laterality Date ADENOIDECTOMY APPENDECTOMY CARDIAC CATHETERIZATION N/A 07/05/2024 Performed by Becky Tineo MD at [facility] Cardiac Cath/EP Lab CARDIAC PROCEDURE 03/15/2012 BMS mid dis RCA CARDIAC PROCEDURE 03/2012 REBECCA to mis dist LAD CARDIAC PROCEDURE 05/2012 REBECCA to prox LCx COLONOSCOPY CORONARY ANGIOPLASTY 05/2012 circ, distal RCA, & LAD TONSILLECTOMY Admission Diagnosis: Patient Active Problem List Diagnosis Date Noted 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) 06/25/2024 Abnormal stress echocardiogram 06/25/2024 Chest pain 07/30/2018 Hypotension 10/27/2017 Atypical chest pain 10/27/2017 Hyperlipidemia 10/27/2017 Jaw pain 10/27/2017 Coronary artery disease involving kaw coronary artery of kaw heart without angina pectoris 11/29/2016 Medical Precautions: [...] Responsibilities: Independent Receives Help From: None Active Captain/Check Airman: Yes Occupation: retired Prior Level of Function [...] to sit: Contact Guard Chair x1 at [facility], cues for sequencing Ambulation Ambulation 1 Assistive [...] of Care supervision is transferred to a [facility] Physical Therapist. Goals and/or treatment plan was established in collaboration with patient/family/other representatives. Department of Internal Medicine Division of Endocrinology, Diabetes, & Metabolism Endocrinology Note Patient Name: Sharonda Flores : 1955 AGE: 69 y.o. Room/Bed: T1-109/T1-109 A Admission Date: 07/25/2024 Visit Date: 07/26/2024 Reason for Endocrine Consult: Stress hyperglycemia Provider/Team Requesting Consult: Cardiology PCP: Tima Tello MD Outpt Chain Maker: No ASSESSMENT: Stress induced hyperglycemia Steroid induced [...] ringers, 250 mL, Last Rate: Stopped (07/25/24 1698) sodium chloride, 20 mL/hr, Last Rate: 20 [...] CHOLHDLRATIO 6.78 10/21/2019 No results found for: QOAO26SYJ No results found for: TSH, X7LHLQM, V5UOXQW, THYROIDAB Radiology reportsas per the Radiologist Radiology: POCT glucose meter Result Date: 07/25/2024 Performed by: [facility] [place] [facility], [address] [place] [address] CLIA ID: [id number] History/Other: Past Medical History: Past Medical History: Diagnosis Date Arrhythmia v-fib/ arrest CAD (coronary artery disease) Cancer (CMS/HCC) (HCC) LUNG UPPER RIGHT - SURGERY FOR REMOVAL 02/09/2024 Congenital heart disease Hyperlipidemia Hypertension MD, old [facility] Sleep apnea NO CPAP WORN Past Surgical History: Past Surgical History: Procedure Laterality Date ADENOIDECTOMY APPENDECTOMY CARDIAC CATHETERIZATION N/A 07/05/2024 Performed by Becky Tineo MD at [facility] Cardiac Cath/EP Lab CARDIAC PROCEDURE 03/15/2012 BMS [...] patient. In addition, I have reviewed the resident's/LEAD WEB APPLICATION DEVELOPER/OPERATOR PREFINISH's care plan and agree with those findings [...] imaging are reviewed as detailed in the resident's/LEAD WEB APPLICATION DEVELOPER/OPERATOR PREFINISH's note Images from the original note were not included. Cardiothoracic Surgery/CCM Progress Note PATIENT NAME: Sharonda Flores DATE: 07/26/24 HPI: Sharonda Flores is a 68 y.o. male referred by Dr. Tineo for CABG. Patient's PMHx includes CAD (s/p several PCI, most recently 2011 - LAD, LCx, distal RCA with known KNOT CUTTER D2), preserved LVEF (65%), HTN, HLD, PAD (follows with vascular at [place]), prior tobacco use, pulmonary nodules, adenocarcinoma s/p RUL lobectomy 01/2024 (follows with Pulmonology), and psoriasis. Patient had presented to [place] ED with a sharp pain in the [...] EF: 07/25/2024- 55% Blood Conservation: transfused postop Outpatient Scheduler: Dr. Tineo Cosigned by Mike Mosley MD at 07/26/2024 2:16 PM EST Associated attestation - Mike Mosley MD - 07/26/2024 2:16 PM EST I have personally performed a face to face diagnostic evaluation on this patient today on 07/26/24. Labs, imaging studies, and electronic medical record notes on [facility] have been reviewed by me. This note documented and discussed by the []nuclear officer []Fellow [x] CHIQUIS reflects my history, [...] On ASA, statin Wean O2 as tolerated [facility] Progress Note Spontaneous Awakening [...] 07/25/24 1156 07/25/24 1313 PHART 7.392 7.260* HSH7RCW 37.9 58.8* PO2ART 339.5* 154.5* UFQ9CFR 22.5 25.8* Z3CGHBPH Vent 60% Oxygen Does this patient meet criteria for termination of mechanical ventilation Yes- Notified physician below Name of physician notified via secure chat or in person : Mike Mosley MD (NA if patient did not meet criteria) Comments: Thank you for involving Respiratory in the care of this patient, documented in this encounter [facility] 07-31-2024 Note Formatting of this n ote might be different from the original. [facility]. [facility] 07-31-2024 Note Formatting of this n ote might be different from the original. [facility] notified of discharge home today. [facility] 07-31-2024 Note Formatting of this n ote might be different from the original. Patient Choice Patient Name: SHARONDA FLORES Date of : 1955 All Providers Sent Referral Name: [facility] Phone: [phone] Address: [address] [place] [address] [facility] 07-31-2024 Note Formatting of this n ote might be different from the original. Patient Choice Patient Name: SHARONDA FLORES Date of : 1955 All Providers Sent Referral Name: [facility] Phone: [phone] Address: [address] [place] [address] [facility] 07-31-2024 Hospital Discharg e instructions Yara Flowers, PROCESS SUPERVISOR - PAPER PROCESSING MACHINE HELPER - 07/31/2024 8:45 AM EST Images from the original note were not included. [facility]: Cardiothoracic Surgery [address] [place] [address] [address] [facility] #[phone] Notify us if the following occur - [...] Address: [place] [address] [facility] Mobile Relation: Other Past Surgical History: Past Surgical History: Procedure Laterality Date ADENOIDECTOMY APPENDECTOMY CARDIAC CATHETERIZATION N/A 07/05/2024 Performed by Becky Tineo MD at [facility] Cardiac Cath/EP Lab CARDIAC PROCEDURE 03/15/2012 BMS mid dis RCA CARDIAC PROCEDURE 03/2012 REBECCA to mis dist LAD CARDIAC PROCEDURE 05/2012 REBECCA to prox LCx COLONOSCOPY CORONARY ANGIOPLASTY 05/2012 circ, distal RCA, & LAD TONSILLECTOMY Immunization History: Immunization History Administered Date(s) Administered Pfizer SARS-CoV-2 Vaccination 11/27/2020, 12/18/2020 Active Problems: Medical Problems Problem List * (Principal) 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) Hypotension Atypical chest pain Hyperlipidemia Jaw pain Coronary artery disease involving kaw coronary artery of kaw heart without angina pectoris Chest pain Abnormal [...] (156 lb) Mental Status: {YUE Patient Mental Status:50068} IV Access: {YUE IV Access:75621} Nursing Mobility/ADLs: Walking {RHONA ADL:::Independent} Transfer {RHONA ADL:45499::Independent} Bathing {RHONA ADL:59200::Independent} Dressing {RHONA ADL:99768::Independent} Toileting {RHONA ADL:00869::Independent} Feeding {RHONA ADL:76303::Independent} Side Seam Machine Operator {RHONA ADL:16601::Independent} Med Delivery {yes/no:59614} Wound Care Documentation and Therapy: Wound/Incision 07/25/24 [...] Number of days: 5 Elimination: Continence: Bowel: {yes/no:29069} Bladder: {yes/no:69447} Urinary Catheter: {YUE Urinary Catheter:19661} Colostomy/Ileostomy/Ileal Conduit: {YES / NO:13765} Date of Last BM: Intake/Output Summary (Last 24 hours) at 07/30/2024 1218 Last data filed at 07/30/2024 1215 Gross per 24 hour Intake 360 ml Output 125 ml Net 235 ml I/O last 3 completed shifts: In: 1380 (19.1 mL/kg) [P.O.:1380] Out: 575 (8 mL/kg) [Urine:575 (0.2 mL/kg/hr)] Weight: 72.2 kg Safety Concerns: {YUE Safety Concerns:09811} Impairments/Disabilities: {YUE Impairments/Disabilities:74327} Nutrition Therapy: Current Nutrition Therapy: {YUE Diet List:92276} Routes of Feeding: {routes of feedin} Liquids: {liquid consistency:24251} Daily Fluid Restriction: {daily fluid restriction:66526} Last Modified Barium Swallow with Video (Video Swallowing Test): {done not done:44142} Treatments at the Time of Hospital Discharge: Respiratory Treatments: Oxygen Therapy: {Therapy; copd oxygen:21635} Ventilator: {YUE Ventilator:25275} Rehab Therapies: {GEN THERAPY DISCIPLINE SCAL:6791324} Weight Bearing Status/Restrictions: {POD WEIGHT BEARIN} Other Medical Equipment (for information only, NOT a DME order): {Assistive Devices DME:34386} Other Treatments: Patient's personal belongings (please select all that are sent with patient): {YUE Patient Belongings:45175} RN SIGNATURE: {E-signature:92202} CASE MANAGEMENT/SOCIAL WORK SECTION Inpatient Status Date: Discharging to Facility/ Agency Name: [facility] Address: [address] [place] [address] Dialysis Facility (if applicable) Name: Address: Dialysis Schedule: Phone: Fax: Vegetable Inspector/Riveter Hand signature: {E-signature:76732} PHYSICIAN SECTION Name: Sharonda Flores Prognosis: {Rehab Prognosis:90848} Condition at Discharge: {Patient Condition:69993} Rehab Potential (if transferring to Rehab): {Rehab Prognosis:89041} Recommended Labs or Other Treatments After Discharge: The individual is being admitted to a nursing facility directly from an [facility] or a unit of a [facility] that is not operated by or licensed by [facility] under section 5119.14 or 5160-3-15.1 5 The individual requires the level of services provided by a nursing facility for the condition for which he or she was treated in the hospital and, Physician Certification: I certify the above information and transfer of Sharonda Flores is necessary for the continuing treatment of the diagnosis listed and that he requires {YUE Level of Care:62111} for {greater less than:40020} 30 days. Update Admission H&P: {YUE Changes in H&P:92258} PHYSICIAN SIGNATURE: {E-signature:54314} documented in this encounter [facility] 07-31-2024 Note Discharge Summary: C ardiothoracic Surgery Sharonda Flores, 69 y.o., 1955 ADMIT DATE: 07/25/2024 DISCHARGE DATE: 07/31/2024 VISIT STATUS: Admission CODE STATUS: Full Code DISCHARGING SURGEON: Brooklynn Martinez DO, Office Number: [phone] DISCHARGE DIAGNOSES: CAD s/p multiple PCI's, now [...] TEAM: Primary Care Physician: Tima Tello MD Outpatient Scheduler: Dr. Tineo SURGERY: 07/25/24: Dr. Martinez- CABG x3 (GREY-LAD, SVG-Diag, SVG-PDA), LAD endarterectomy [facility] COURSE: Sharonda Flores is a 68 y.o. male referred by Dr. Tineo for CABG. Patient's PMHx includes CAD (s/p several PCI, most recently 2011 - LAD, LCx, distal RCA with known KNOT CUTTER D2), preserved LVEF (65%), HTN, HLD, PAD (follows with vascular at [place]), prior tobacco use, pulmonary nodules, adenocarcinoma s/p RUL lobectomy 01/2024 (follows with Pulmonology), and psoriasis. Patient had presented to [place] ED with a sharp pain in the [...] Your Medications These medications were sent to [facility]/pharmacy #[id number] - [place], [place] - [address] [place] [address] acetaminophen 500 MG tablet amiodarone 200 MG [...] up. 75 ARCH (more content not included)... [facility] 07-30-2024 Note Formatting of this n ote is different from the original. Start PACC Note Home Health Referral Educated patient on Home Care and services available. Patient offered choice of available HHC and agreeable to SN/PT services with [facility] - Home Care. Care Types: [...] is noted as yes - consider a INTERVENTIONAL TECHNOLOGIST evaluation once the patient returns home. START PATIENT REGISTRATION INFORMATION Order Information Order Signing Physician: Brooklynn Martinez, DO Service Ordered RN ?: Yes Service Ordered PT ?: Yes Service Ordered OT ?: No Service Ordered ST ?: No Service Ordered INTERVENTIONAL TECHNOLOGIST?:No Service Ordered SHOVEL HANDLE ASSEMBLER?: No Following Physician: Brooklynn Martinez DO Following Physician Overseeing Physician: Brooklynn Martinez DO (Required for Residents only) Agreeable to Follow? Yes Date/Time of Call 07/30/24 12:18 PM, Spoke with: cts protcol Care Coordination Same Day SOC?: No Primary Care Physician: Tima Tello MD Primary Care Physician Primary Care Physician Address: [address] [facility] / [facility] [address] Visit Instructions: N/A Service Discharge Location Type: Home with Home Care Service Facility Name: N/A Service Floor Facility: N/A Service Room No: N/A Demographics Patient Last Name: Mark Patient First Name: Sharonda Language/Communication Barrier: no Service Address: [address] Service City: [place] Service ST: [place] Service ZIP: [address] Service Other phone numbers: Telephone Information: Emergency Contact: Extended Emergency Contact Information Primary Emergency Contact: Douglas Flores Address: 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 Activity/Weight Bearing: -Up with assistance: up in chair for all meals, ambulate 3-4 times a day -Stretching exercises per PT discharge instructions Discharge Date: pending Referral Source-PACC: (Hospital/Unit): [facility] / / A End PACC Note [facility] 07-30-2024 Note Formatting of this n ote is different from the original. Start PACC Note Home Health Referral Educated patient on Home Care and services available. Patient offered choice of available HHC and agreeable to SN/PT services with [facility] - Home Care. Care Types: [...] is noted as yes - consider a INTERVENTIONAL TECHNOLOGIST evaluation once the patient returns home. START PATIENT REGISTRATION INFORMATION Order Information Order Signing Physician: Brooklynn Martinez DO Service Ordered RN ?: Yes Service Ordered PT ?: Yes Service Ordered OT ?: No Service Ordered ST ?: No Service Ordered INTERVENTIONAL TECHNOLOGIST?:No Service Ordered SHOVEL HANDLE ASSEMBLER?: No Following Physician: Brooklynn Martinez DO Following Physician Overseeing Physician: Brooklynn Martinez DO (Required for Residents only) Agreeable to Follow? Yes Date/Time of Call 07/30/24 12:18 PM, Spoke with: kira protcol Care Coordination Same Day SOC?: No Primary Care Physician: Tima Tello MD Primary Care Physician Primary Care Physician Address: [address] [facility] / [facility] [address] Visit Instructions: N/A Service Discharge Location Type: Home with Home Care Service Facility Name: N/A Service Floor Facility: N/A Service Room No: N/A Demographics Patient Last Name: Mark Patient First Name: Sharonda Language/Communication Barrier: no Service Address: [address] Service City: [facility] ST: [place] Service ZIP: [address] Service Other phone numbers: Telephone Information: Emergency Contact: Extended Emergency Contact Information Primary Emergency Contact: MarkDouglas Address: 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 Activity/Weight Bearing: -Up with assistance: up in chair for all meals, ambulate 3-4 times a day -Stretching exercises per PT discharge instructions Discharge Date: pending Referral Source-PACC: (Hospital/Unit): [facility] / T1-109/T1109 A End PACC Note [facility] 07-30-2024 Note Start PACC Note Home Health Referral Educated patient on Home Care and services available. Patient offered choice of available HHC and agreeable to SN/PT services with [facility] - Home Care. Care Types: [...] is noted as yes - consider a INTERVENTIONAL TECHNOLOGIST evaluation once the patient returns home. START PATIENT REGISTRATION INFORMATION Order Information Order Signing Physician: Brooklynn Martinez DO Service Ordered RN ?: Yes Service Ordered PT ?: Yes Service Ordered OT ?: No Service Ordered ST ?: No Service Ordered INTERVENTIONAL TECHNOLOGIST?:No Service Ordered SHOVEL HANDLE ASSEMBLER?: No Following Physician: Brooklynn Martinez DO Following Physician Overseeing Physician: Brooklynn Maritnez DO (Required for Residents only) Agreeable to Follow? Yes Date/Time of Call 07/30/24 12:18 PM, Spoke with: kira protcol Care Coordination Same Day SOC?: No Primary Care Physician: Tima Tello MD Primary Care Physician Primary Care Physician Address: [address] [place] [address] / [facility] [address] Visit Instructions: N/A Service Discharge Location Type: Home with Home Care Service Facility Name: N/A Service Floor Facility: N/A Service Room No: N/A Demographics Patient Last Name: Mark Patient First Name: Sharonda Language/Communication Barrier: no Service Address: [address] Service City: [facility] ST: [place] Service ZIP: [address] Service Other phone numbers: Telephone Information: Emergency Contact: Extended Emergency Contact Information Primary Emergency Contact: MarkDouglas Address: 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 Activity/Weight Bearing: -Up with assistance: up in chair for all meals, ambulate 3-4 times a day -Stretching exercises per PT discharge instructions Discharge Date: pending Referral Source-PACC: (Hospital/Unit): [facility] / T1/T1 A End PACC Note [facility] 07-30-2024 Plan of care note Problem: [...] 07/30/2024932 by Anisa Awad RN Outcome: Progressing [facility] 07-30-2024 Plan of care note Problem: Pain [...] Interventions Goal: Assess Nutritional Intake Outcome: Progressing [facility] 07-30-2024 Note Formatting of this n ote might be different from the original. Care Management Progress Note Patient remains in CTV ICU s/p CABG x 3 POD # 5. Episodes of Afib overnight, plan for Amio bolus and drip x 24 hr. Hopefully for dc tomorrow. DCP-home with [facility] following Length of Stay (Days): 5 GMLOS: 8.1 [facility] 07-30-2024 Note Formatting of this n ote might be different from the original. Care Management Progress Note Patient remains in [facility]V ICU s/p CABG x 3 POD # 5. Episodes of Afib overnight, plan for Amio bolus and drip x 24 hr. Hopefully for dc tomorrow. DCP-home with [facility]IL[facility] following Length of Stay (Days): 5 GMLOS: 8.1 [facility] 07-30-2024 Note Care Management Prog ress Note Patient remains in [facility]V ICU s/p CABG x 3 POD # 5. Episodes of Afib overnight, plan for Amio bolus and drip x 24 hr. Hopefully for dc tomorrow. DCP-home with [facility] following Length of Stay (Days): 5 GMLOS: 8.1 [facility] 07-30-2024 Note Cardiothoracic Surge ry/CCM Progress Note PATIENT NAME: Sharonda Flores DATE: 07/30/24 HPI: Sharonda Flores is a 68 y.o. male referred by Dr. Tineo for CABG. Patient's PMHx includes CAD (s/p several PCI, most recently 2011 - LAD, LCx, distal RCA with known KNOT CUTTER D2), preserved LVEF (65%), HTN, HLD, PAD (follows with vascular at [place]), prior tobacco use, pulmonary nodules, adenocarcinoma s/p RUL lobectomy 01/2024 (follows with Pulmonology), and psoriasis. Patient had presented to [place] ED with a sharp pain in the [...] of the p (more content not included)... [facility] 07-29-2024 Nurse Note Summary of day shift - Patient ambulated unit 3 times independently during shift; positive for BM; intermittent c/o chest pain treated with PRN meds and rest; patient did not eat much (doesn't care for food selections). Did drink Ensure. Patient anticipating discharge to home tomorrow. [facility] 07-29-2024 Plan of care note Problem: Pain [...] Interventions Goal: Assess Nutritional Intake Outcome: Progressing [facility] 07-29-2024 Consult note Formatting of th is note might be different from the original. Received referral and reviewed chart. Phase II Cardiopulmonary Rehab Referral discussed with Sharonda Flores. Patient prefers cardiopulmonary rehab at [facility]. Given information on program at preferred location. [facility] 07-29-2024 Note Received referral an d reviewed chart. Phase II Cardiopulmonary Rehab Referral discussed with Sharonda Flores. Patient prefers cardiopulmonary rehab at [facility]. Given information on program at preferred location. [facility] 07-29-2024 Consult note Formatting of th is note might be different from the original. Received referral and reviewed chart. Phase II Cardiopulmonary Rehab Referral discussed with Sharonda Flores. Patient prefers cardiopulmonary rehab at [facility]. Given information on program at preferred location. [...] hemoglobin A1c- 6.0%; RD provided pt with [facility]'s post-op heart healthy diet pamphlet, suspect [...] to assess Fluid Accumulation: Unable to assess Web Methods Developer Strength: Not Performed Nutrition Assessment: Pt with PMH including CAD (s/p several PCI, most recently 2011 - LAD, LCx, distal RCA with known KNOT CUTTER D2), preserved LVEF (65%), HTN, HLD, PAD, prior tobacco use, pulmonary nodules, adenocarcinoma s/p RUL lobectomy 01/2024 (follows with Pulmonology), and Psoriasis presented to [place] ED with a sharp pain in the [...] to be reminded that he was at [facility], also was wondering what time of day it is, states 'I missed a day or two I guess') however he was able to provide limited dietary recall (pt admitted to eating 'unhealthy'): he does not eat/prepare meals at home, often will go through drive-thrus such as [employer] or [employer], at [employer] he will get the 'big breakfast' with [...] RD to trial ONS; provided pt with [employer]'s Heart Healthy Diet pamphlet and briefly reviewed contents, also provided pt with menu and noted items not permitted on heart healthy diet. Estimated Daily Nutrient Needs: Energy Requirements Based On: Kcal/kg Weight Used for Energy Requirements: Cerulean Weight for Energy Calculation (kg): 62 kg Total Energy Requirements (kcals/day): 7908-2743 kcal/day (25-30 kcal/kg) Weight Used for Protein Requirements: Cerulean Weight in Kg Used for Protein Requirements: [...] to fluid but to 'lack of exercise') Cerulean Body Weight (lbs) (Calculated): 136 lbs Cerulean Body Weight (Kg) (Calculated): 62 kg Weight [...] Ashanti Peace RD Contact: Secure chat or *[phone] Associated Order(s): IP CONSULT TO CARDIAC REHAB [...] Consult: Cardiology PCP: Tima Tello MD Outpt Chain Maker: No ASSESSMENT: Stress induced hyperglycemia Steroid induced [...] CHOLHDLRATIO 6.78 10/21/2019 No results found for: [id number] No results found for: TSH, E9LKROQ, T0IWFNB, THYROIDAB Radiology reportsas per the Radiologist Radiology: POCT glucose meter Result Date: 07/25/2024 Performed by: [facility] [place], [address] [place] [address] CLIA ID: [id number] History/Other: Past Medical History: Past Medical History: Diagnosis Date Arrhythmia v-fib/ arrest CAD (coronary artery disease) Cancer (CMS/HCC) (HCC) LUNG UPPER RIGHT - SURGERY FOR REMOVAL 02/09/2024 Congenital heart disease Hyperlipidemia Hypertension MD, old 2011- [facility] Sleep apnea NO CPAP WORN Past Surgical History: Past Surgical History: Procedure Laterality Date ADENOIDECTOMY APPENDECTOMY CARDIAC CATHETERIZATION N/A 07/05/2024 Performed by Becky Tineo MD at [facility] Cardiac Cath/EP Lab CARDIAC PROCEDURE 03/15/2012 BMS [...] patient. In addition, I have reviewed the resident's/LEAD WEB APPLICATION DEVELOPER/OPERATOR PREFINISH's care plan and agree with those findings [...] imaging are reviewed as detailed in the resident's/LEAD WEB APPLICATION DEVELOPER/OPERATOR PREFINISH's note Images from the original note were not included. [facility]: Critical Care Consultation Note Date: 07/25/24 PATIENT NAME: Sharonda Flores : 1955 (69 y.o.) Reason for Consult: Critical Care & Vent Management HPI: Sharonda Flores is a 68 y.o. male referred by Dr. Tineo for CABG. Patient's PMHx includes CAD (s/p several PCI, most recently 2011 - LAD, LCx, distal RCA with known KNOT CUTTER D2), preserved LVEF (65%), HTN, HLD, PAD (follows with vascular at [place]), prior tobacco use, pulmonary nodules, adenocarcinoma s/p RUL lobectomy 01/2024 (follows with Pulmonology), and psoriasis. Patient had presented to [place] ED with a sharp pain in the [...] Conclusion of Hand-off OR CTVICU CO No Florence CI CVP SVR PAP Additional Interventions/Misc during Handoff Review of Systems Unable to perform ROS: Intubated Allergies: Pcn [penicillins] Past Medical History: has a past medical history of Arrhythmia, CAD (coronary artery disease), Cancer (CMS/HCC) (HCC), Congenital heart disease, Hyperlipidemia, Hypertension, MD, old, and Sleep apnea. Past Surgical History: [...] Plavix tomorrow AM for endarterectomy - No Florence, okay to check VBG and Ozzie if [...] studies, and electronic medical record notes on [employer] have been reviewed by me. This note documented and discussed by the []nuclear officer []Fellow [x] CHIQUIS reflects my history, [...] today Transfuse prn documented in this encounter [facility] 07-29-2024 Note Cardiothoracic Surge ry/CCM Progress Note PATIENT NAME: Sharonda Flores DATE: 07/29/24 HPI: Sharonda Flores is a 68 y.o. male referred by Dr. Tineo for CABG. Patient's PMHx includes CAD (s/p several PCI, most recently 2011 - LAD, LCx, distal RCA with known KNOT CUTTER D2), preserved LVEF (65%), HTN, HLD, PAD (follows with vascular at [place]), prior tobacco use, pulmonary nodules, adenocarcinoma s/p RUL lobectomy 01/2024 (follows with Pulmonology), and psoriasis. Patient had presented to [place] ED with a sharp pain in the [...] concern is shoulder pain. Long discussion with OPERATOR PREFINISH yesterday about OP referrals. Review of Systems [...] the laboratory an (more content not included)... [facility] 07-28-2024 Plan of care note Problem: [...] Interventions Goal: Assess Nutritional Intake Outcome: Progressing [facility] 07-28-2024 Note OCCUPATIONAL THERAPY [facility] Initial Evaluation Name/MRN: Sharonda Flores ([id number]) Evaluation Date: 07/28/2024 Date of : 1955 [...] PRN upon discharge. Admitting Diagnosis: CAD of kaw artery Performance Deficits /Impairments: Increased Pain, Decreased [...] REMOVAL 02/09/2024 Congenital heart disease Hyperlipidemia Hypertension MD, old 2011- [facility] Sleep apnea NO CPAP WORN Past Surgical History: Past Surgical History: Procedure Laterality Date ADENOIDECTOMY APPENDECTOMY CARDIAC CATHETERIZATION N/A 07/05/2024 Performed by Becky Tineo MD at [facility] Cardiac Cath/EP Lab CARDIAC PROCEDURE 03/15/2012 BMS mid dis RCA CARDIAC PROCEDURE 03/2012 REBECCA to mis dist LAD CARDIAC PROCEDURE 05/2012 REBECCA to prox LCx COLONOSCOPY CORONARY ANGIOPLASTY 05/2012 circ, distal RCA, & LAD TONSILLECTOMY Admission Diagnosis: Patient Active Problem List Diagnosis Date Noted 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 [facility] 07-26-2024 Note Formatting of this n ote might be different from the original. Superintendent Production following case for Discharge Needs. [facility] 07-26-2024 Note Formatting of this n ote might be different from the original. Superintendent Production following case for Discharge Needs. [facility] 07-26-2024 Note Formatting of this n ote might be different from the original. Patient admitted to [facility] ICU s/p CABG x 3 POD # 1. Patient from home alone, is independent, has PCP and prescription coverage. Met with patient at bedside, introduced self and role. Patient agreeable to discharge plan of home with [facility], but does not have anyone to stay with him nor does he plan to stay with anyone. Referral to [facility] for home care. [facility] 12-27-2024 Note Formatting of this n ote might be different from the original. Patient admitted to [facility] ICU s/p CABG x 3 POD # 1. Patient from home alone, is independent, has PCP and prescription coverage. Met with patient at bedside, introduced self and role. Patient agreeable to discharge plan of home with [facility], but does not have anyone to stay with him nor does he plan to stay with anyone. Referral to [facility] for home care. [facility] 07-26-2024 Consult note Associated Order (s): IP [...] hemoglobin A1c- 6.0%; RD provided pt with [facility]'s post-op heart healthy diet pamphlet, suspect [...] to assess Fluid Accumulation: Unable to assess Web Methods Developer Strength: Not Performed Nutrition Assessment: Pt with PMH including CAD (s/p several PCI, most recently 2011 - LAD, LCx, distal RCA with known KNOT CUTTER D2), preserved LVEF (65%), HTN, HLD, PAD, prior tobacco use, pulmonary nodules, adenocarcinoma s/p RUL lobectomy 01/2024 (follows with Pulmonology), and Psoriasis presented to [place] ED with a sharp pain in the [...] to be reminded that he was at [facility], also was wondering what time of day it is, states 'I missed a day or two I guess') however he was able to provide limited dietary recall (pt admitted to eating 'unhealthy'): he does not eat/prepare meals at home, often will go through drive-thrus such as [employer] or [employer], at [employer] he will get the 'big breakfast' with [...] RD to trial ONS; provided pt with [employer]'s Heart Healthy Diet pamphlet and briefly reviewed contents, also provided pt with menu and noted items not permitted on heart healthy diet. Estimated Daily Nutrient Needs: Energy Requirements Based On: Kcal/kg Weight Used for Energy Requirements: Cerulean Weight for Energy Calculation (kg): 62 kg Total Energy Requirements (kcals/day): 5168-5669 kcal/day (25-30 kcal/kg) Weight Used for Protein Requirements: Cerulean Weight in Kg Used for Protein Requirements: [...] to fluid but to 'lack of exercise') Cerulean Body Weight (lbs) (Calculated): 136 lbs Cerulean Body Weight (Kg) (Calculated): 62 kg Weight [...] Ashanti Peace RD Contact: Secure chat or *[phone] [facility] 07-26-2024 Note PHYSICAL THERAPY [facility] Initial Evaluation Name/MRN: Sharonda Flores ([id number]) Evaluation Date: 07/26/2024 Date of : 1955 Admission Date: 07/25/2024 5:14 AM Age: 69 y.o. Room/Bed: T1-109/T1-109 A Discharge Recommendation: Continue to assess pending progress, Home with assist PRN Equipment Needed: No Assessment IMPRESSION: 69 y.o. pt admitted to [facility] for CAD, s/p CABG x3 07/25. They were Min A for bed mobility, CGA for transfers, and CGA for ambulation. 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 Currently limited d/t fatigue. Would anticipate home [...] REMOVAL 02/09/2024 Congenital heart disease Hyperlipidemia Hypertension MD, old 2011- [facility] Sleep apnea NO CPAP WORN Past Surgical History: Past Surgical History: Procedure Laterality Date ADENOIDECTOMY APPENDECTOMY CARDIAC CATHETERIZATION N/A 07/05/2024 Performed by Becky Tineo MD at [facility] Cardiac Cath/EP Lab CARDIAC PROCEDURE 03/15/2012 BMS mid dis RCA CARDIAC PROCEDURE 03/2012 REBECCA to mis dist LAD CARDIAC PROCEDURE 05/2012 REBECCA to prox LCx COLONOSCOPY CORONARY ANGIOPLASTY 05/2012 circ, distal RCA, & LAD TONSILLECTOMY Admission Diagnosis: Patient Active Problem List Diagnosis Date Noted 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 walked outside of room) Plan Pt (more content not included)... [facility] 07-26-2024 Consult note Associated Order (s): IP CONSULT TO CARDIAC REHAB Received referral and reviewed chart. Unable to discuss Phase II Cardiopulmonary Rehab Referral with Sharonda Flores at this time. Will follow to discuss program when appropriate. Patient will be contacted at home if discharged prior to discussion. [facility] 07-26-2024 Note Received referral an d reviewed chart. Unable to discuss Phase II Cardiopulmonary Rehab Referral with Sharonda Flores at this time. Will follow to discuss program when appropriate. Patient will be contacted at home if discharged prior to discussion. [facility] 07-25-2024 Note [facility] Department Progress Note Spontaneous Awakening [...] 07/25/24 1156 07/25/24 1313 PHART 7.392 7.260* NOG4UGT 37.9 58.8* PO2ART 339.5* 154.5* YAN5XRK 22.5 25.8* D2DJLLDA Vent 60% Oxygen Does this patient meet criteria for termination of mechanical ventilation Yes- Notified physician below Name of physician notified via secure chat or in person : Mike Mosley MD (NA if patient did not meet criteria) Comments: Thank you for involving Respiratory in the care of this patient, [facility] 07-25-2024 Anesthesiology Postoperative evaluation and management note Patient: Sharonda Flores Procedure Summary Date: 07/25/24 Room / Location: [facility] Operating Room Anesthesia Start: 728 Anesthesia Stop: 1240 Procedures: CORONARY ARTERY BYPASS GRAFT (Chest) TRANSESOPHAGEAL ECHOCARDIOGRAM Diagnosis: Atherosclerotic heart disease of kaw coronary artery with other forms of angina [...] opportunity for questions and acknowledgement of understanding. [employer] Phone: 07-25-2024 Note Patient: Sharonda mohan Procedure Summary Date: 07/25/24 Room / Location: [address] Operating Room Anesthesia Start: 728 Anesthesia Stop: 1241 Procedures: CORONARY ARTERY BYPASS GRAFT (Chest) TRANSESOPHAGEAL ECHOCARDIOGRAM Diagnosis: 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) Surgeons: Brooklynn Martinez DO Responsible Provider: rFedi Buchanan MD Anesthesia Type: general ASA Status: [...] opportunity for questions and acknowledgement of understanding. [facility] 07-25-2024 Surgical operatio n note Patient: Sharonda Flores Procedure Summary Date: 07/25/24 Room / Location: [address] Operating Room Anesthesia Start: 728 Anesthesia Stop: 124 Procedures: CORONARY ARTERY BYPASS GRAFT (Chest) TRANSESOPHAGEAL ECHOCARDIOGRAM Diagnosis: Atherosclerotic heart disease of kaw coronary artery with other forms of angina [...] procedure well with no complications. Staffing Performed: NARROW GAUGE BRAKEMAN Resident/NARROW GAUGE BRAKEMAN: SESAR Veronica CRNA Associated Order(s): Arterial Line [...] procedure well with no complications. 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) (+) Hyperlipidemia Past Medical History: Past Medical History: No date: Arrhythmia Comment: v-fib/ arrest No date: CAD (coronary artery disease) No date: Cancer (CMS/HCC) (HCC) Comment: LUNG UPPER RIGHT - SURGERY FOR REMOVAL 02/09/2024 No date: Congenital heart disease No date: Hyperlipidemia No date: Hypertension No date: MD, old Comment: [facility] No date: Sleep apnea Comment: NO CPAP WORN Past Surgical History: Past Surgical History: No date: ADENOIDECTOMY No date: APPENDECTOMY 07/05/2024: CARDIAC CATHETERIZATION; N/A Comment: Performed by Becky Tineo MD at [facility] Cardiac Cath/EP Lab 03/15/2012: CARDIAC PROCEDURE Comment: [...] Additional Equipment Requests documented in this encounter [facility] 07-25-2024 Miscellaneous Notes Patient: Sharonda Flores Procedure Summary Date: 07/25/24 Room / Location: [address] Operating Room Anesthesia Start: 728 Anesthesia Stop: 124 Procedures: CORONARY ARTERY BYPASS GRAFT (Chest) TRANSESOPHAGEAL ECHOCARDIOGRAM Diagnosis: Atherosclerotic heart disease of kaw coronary artery with other forms of angina [...] has been met. documented in this encounter [facility] 07-25-2024 Note Formatting of this n ote is different from the original. Patient: Sharonda Flores Procedure Summary Date: 07/25/24 Room / Location: [address] Operating Room Anesthesia Start: 728 Anesthesia Stop: 1241 Procedures: CORONARY ARTERY BYPASS GRAFT (Chest) TRANSESOPHAGEAL ECHOCARDIOGRAM Diagnosis: Atherosclerotic heart disease of kaw coronary artery with other forms of angina [...] once all PACU criteria has been met. [facility] 07-25-2024 Note Patient: Sharonda mohan Procedure Summary Date: 07/25/24 Room / Location: [address] Operating Room Anesthesia Start: 728 Anesthesia Stop: 1241 Procedures: CORONARY ARTERY BYPASS GRAFT (Chest) TRANSESOPHAGEAL ECHOCARDIOGRAM Diagnosis: Atherosclerotic heart disease of kaw coronary artery with other forms of angina [...] once all PACU criteria has been met. [facility] 07-25-2024 Consult note Associated Order (s): IP CONSULT TO ENDOCRINOLOGY Department of Internal Medicine Division of Endocrinology, Diabetes, & Metabolism Endocrinology Note Patient Name: Sharonda Flores : 1955 AGE: 69 y.o. Room/Bed: T1-109/T1109 A Admission Date: 07/25/2024 Visit Date: 07/25/2024 Reason for Endocrine Consult: Stress hyperglycemia Provider/Team Requesting Consult: Cardiology PCP: Tima Tello MD Outpt Chain Maker: No ASSESSMENT: Stress induced hyperglycemia Steroid induced [...] CHOLHDLRATIO 6.78 10/21/2019 No results found for: [id number] No results found for: TSH, R4PVVXP, Q6QFLTC, THYROIDAB Radiology reportsas per the Radiologist Radiology: POCT glucose meter Result Date: 07/25/2024 Performed by: [employer] [place] [facility], [address] [place] [address] CLIA ID: [id number] History/Other: Past Medical History: Past Medical History: Diagnosis Date Arrhythmia v-fib/ arrest CAD (coronary artery disease) Cancer (CMS/HCC) (HCC) LUNG UPPER RIGHT - SURGERY FOR REMOVAL 02/09/2024 Congenital heart disease Hyperlipidemia Hypertension MD, old 2012- [facility] Sleep apnea NO CPAP WORN Past Surgical History: Past Surgical History: Procedure Laterality Date ADENOIDECTOMY APPENDECTOMY CARDIAC CATHETERIZATION N/A 07/05/2024 Performed by Becky Tineo MD at [facility] Cardiac Cath/EP Lab CARDIAC PROCEDURE 03/15/2012 BMS [...] patient. In addition, I have reviewed the resident's/LEAD WEB APPLICATION DEVELOPER/OPERATOR PREFINISH's care plan and agree with those findings [...] imaging are reviewed as detailed in the resident's/LEAD WEB APPLICATION DEVELOPER/OPERATOR PREFINISH's note [facility] 07-25-2024 Procedure anesthe shivam Narrative Procedure Name [...] Imelda Bustillo RN documented in this encounter [id number] Anesthesiology procedure note* Anesthesia Procedure Notes - [...] procedure well with no complications. Staffing Performed: NARROW GAUGE BRAKEMAN Resident/NARROW GAUGE BRAKEMAN: SESAR Veronica CRNA [facility]12-26-2024 NoteCentral Venous Line: Date/Time: 07/25/2024 7:55 AM [...] well with no complications. Staffing Performed: JESSIE Resident/NARROW GAUGE BRAKEMAN: Dewayne Rodriges APRN [facility]12-26-2024 Anesthesiology procedure note* Anesthesia Procedure Notes [...] well with no complications. Staffing Performed: JESSIE Resident/NARROW GAUGE BRAKEMAN: SESAR Veronica CRNA [id number] NoteArterial Line: Date/Time: 07/25/2024 9:42 AM An [...] well with no complications. Staffing Performed: JESSIE Resident/NARROW GAUGE BRAKEMAN: Dewayne Rodriges APRN [facility]12-26-2024 Consult note* SESAR Ybarra CNP - [...] - LAD, LCx, distal RCA with known KNOT CUTTER D2), preserved LVEF (65%), HTN, HLD, PAD (follows with vascular at [place]), prior tobacco use, pulmonary nodules, adenocarcinoma s/p RUL lobectomy 01/2024 (follows with Pulmonology), and psoriasis. Patient had presented to [place] ED with a sharp pain in the [...] Conclusion of Hand-off OR CTVICU CO No Florence CI CVP SVR PAP Additional Interventions/Misc during Handoff Review of Systems Unable to perform ROS: Intubated Allergies: Pcn [penicillins] Past Medical History: has a past medical history of Arrhythmia, CAD (coronary artery disease), Cancer (CMS/HCC) (HCC), Congenital heart disease, Hyperlipidemia, Hypertension, MD, old, and Sleep apnea. Past Surgical History: [...] chew. 06/25/24 06/25/25 Yes Horace L. Michelle, PROCESS SUPERVISOR - PAPER PROCESSING MACHINE HELPER mupirocin (Bactroban) 2 % ointment Apply liberal amount per nostril the night before surgery and then again the morning of surgery Patient not taking: Reported on 07/25/2024 07/12/24 Jose Eaton, PROCESS SUPERVISOR - RENEE nitroglycerin (Nitrostat) 0.4 MG SL [...] Plavix tomorrow AM for endarterectomy - No Florence, okay to check VBG and Ozzie if [...] studies, and electronic medical record notes on [employer] have been reviewed by me. This note documented and discussed by the []nuclear officer []Fellow [x] CHIQUIS reflects my history, [...] SBT and extubation later today Transfuse prn [id number] Note* Op Note - Brooklynn Martinez DO [...] Intraoperative transesophageal echocardiogram Surgeon: Lico Martinez DO Animal Keeper(s): [x] Yecenia Rodriguez [] Ramya Daniel [] Heather Gonzalez [] Heather Garcia [] Other Anesthesia: General--Dr. Fredi Buchanan Barnworker Groom: Jazmyn Rodgers Total IV fluids: See anesthesia [...] A two team approach was taken. The bilingual office assistant team performed all aspects of [...] midline with heavy steel wires in a kmyjyx-[id number]-snioj fashion. The soft tissues were closed in layers with running absorbable sutures. The procedure was then terminated. At the end of the procedure all thesponge and sharp counts were correct. Disposition: The patient having tolerated the procedure well was taken in stable condition to the [facility]U. He will be monitored closely as to outputs and hemodynamics. Lico Martinez DO [facility] Cardiothoracic Surgery [id number] Note* Op Note - Brooklynn Martinez DO [...] Intraoperative transesophageal echocardiogram Surgeon: Lico Martinez DO Animal Keeper(s): [x] Yecenia Rodriguez [] Ramya Daniel [] Heather Gonzalez [] Heather Garcia [] Other Anesthesia: General--Dr. Fredi Buchanan Barnworker Groom: Jazmyn Rodgers Total IV fluids: See anesthesia [...] A two team approach was taken. The bilingual office assistant team performed all aspects of [...] midline with heavy steel wires in a [id number] fashion. The soft tissues were closed in layers with running absorbable sutures. The procedure was then terminated. At the end of the procedure all thesponge and sharp counts were correct. Disposition: The patient having tolerated the procedure well was taken in stable condition to the HLU. He will be monitored closely as to outputs and hemodynamics. Lico Martinez DO [facility] Cardiothoracic Surgery [facility]12-26-2024 Attending History and physical note* Brooklynn Martinez DO - 07/25/2024 7:00 AM EST H&P reviewed. The patient was examined and there are no changes to the H&P. Will proceed with CABG today. Lico Martinez DO [facility] Cardiothoracic Surgery Source Note - Brooklynn Martinez DO - 07/10/2024 12:30 PM EST Images from the original note were not included. [facility] CARDIOVASCULAR & THORACIC SURGERY [address] [facility] [address] Dept: [phone] Dept Loc: [phone] Visit type: New Reason for Visit: CAD Assessment: 1. 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 [...] - LAD, LCx, distal RCA with known KNOT CUTTER D2), preserved LVEF (65%), HTN, HLD, PAD (follows with vascular at [place]), prior tobacco use, pulmonary nodules, adenocarcinoma s/p RUL lobectomy 01/2024 (follows with pulmonology), and psoriasis. Pt had presented to [place] ED with a sharp pain in the [...] right VATS lobectomy for lung cancer at [facility]. He has recovered well since then. Past Medical History Past Medical History: Diagnosis Date Arrhythmia v-fib/ arrest CAD (coronary artery disease) Congenital heart disease Hyperlipidemia Hypertension MD, old Sleep apnea Past Surgical History Past Surgical History: Procedure Laterality Date CARDIAC CATHETERIZATION N/A 07/05/2024 Performed by Becky Tineo MD at [facility] Cardiac Cath/EP Lab CARDIAC PROCEDURE 03/15/2012 BMS [...] short with minimal disease LAD with a KNOT CUTTER of the proximal stent, the distal vessel fills by faint collaterals, likely from D1,and fills back to the stent partially to the mid vessel D1 likely has a severe ostial lesion of 70%, is takes off just before the KNOT CUTTER Circumflex has a patent proximal stent OM1 [...] Tima Tello MD Cardiology: MD Lico Mccollum, [facility] Cardiothoracic Surgery Disclaimer INFORMED CONSENT:The nature [...] This note may have been dictated using Kavam.[employer] Practice Edition 2.6 and/or Agoraf[employer] Voice Recognition Feature. The document was proofread, however unrecognized voice recognition contract clerk automobile errors may be present. [facility] [employer] Work Phone: [phone] 696-386712-26-2024 NoteH&P reviewed. The patient was examined and there are no changes to the H&P. Will proceed with CABG today. Lico Martinez DO [facility] History and physical note* Brooklynn Martinez DO - 07/25/2024 7:00 AM EST H&P reviewed. The patient was examined and there are no changes to the H&P. Will proceed with CABG today. Lico Martinez DO FACS Cardiothoracic Surgery Source Note - Brooklynn Martinez DO - 07/10/2024 12:30 PM EST Images from the original note were not included. [facility] CARDIOVASCULAR & THORACIC SURGERY [address] [facility] [address] Dept: [phone] Dept Loc: [phone] Visit type: New Reason for Visit: CAD Assessment: 1. 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 [...] - LAD, LCx, distal RCA with known KNOT CUTTER D2), preserved LVEF (65%), HTN, HLD, PAD (follows with vascular at [place]), prior tobacco use, pulmonary nodules, adenocarcinoma s/p RUL lobectomy 01/2024 (follows with pulmonology), and psoriasis. Pt had presented to [place] ED with a sharp pain in the [...] right VATS lobectomy for lung cancer at [facility]. He has recovered well since then. Past Medical History Past Medical History: Diagnosis Date Arrhythmia v-fib/ arrest CAD (coronary artery disease) Congenital heart disease Hyperlipidemia Hypertension MD, old Sleep apnea Past Surgical History Past Surgical History: Procedure Laterality Date CARDIAC CATHETERIZATION N/A 07/05/2024 Performed by Becky Tineo MD at [facility] Cardiac Cath/EP Lab CARDIAC PROCEDURE 03/15/2012 BMS mid dis RCA CARDIAC PROCEDURE 03/2012 REBECCA to mis dist LAD CARDIAC PROCEDURE 05/2012 REBECCA to prox LCx CORONARY ANGIOPLASTY 05/2012 circ, distal RCA, & LAD Family History Family History Problem Relation Name Age of Onset Heart disease Father Thad No Known Problems Mother Cancer Maternal Grandfather Mother Social History Marital status: Work history: Retired [place] status: Never Served Social History Tobacco Use [...] short with minimal disease LAD with a KNOT CUTTER of the proximal stent, the distal vessel fills by faint collaterals, likely from D1,and fills back to the stent partially to the mid vessel D1 likely has a severe ostial lesion of 70%, is takes off just before the KNOT CUTTER Circumflex has a patent proximal stent OM1 [...] Tello MD Cardiology: MD Lico Mccollum DO [facility] Cardiothoracic Surgery Disclaimer INFORMED CONSENT:The nature [...] This note may have been dictated using Kavam.com Practice Edition 2.6 and/or Agorafy Voice Recognition Feature. The document was proofread, however unrecognized voice recognition contract clerk automobile errors may be present. documented in this [facility]12-19-2024 Anesthesiology Preoperative evaluation and management note* Anesthesia Preprocedure Evaluation - Dewayne Rodriges APRN - NARROW GAUGE BRAKEMAN - 07/18/2024 1:26 PM EST Patient: Sharonda Flores Procedure Information Date/Time: 07/25/24 0730 Procedures: CORONARY ARTERY BYPASS GRAFT (Chest) - 7:30 am, 5 hours TRANSESOPHAGEAL ECHOCARDIOGRAM Location: [facility] OR [address] [place] [address] Operating Room Surgeons: Brooklynn Martinez DO Relevant Problems Cardio (+) Coronary artery disease involving kaw coronary artery of kaw heart without angina pectoris (+) 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) (+) Hyperlipidemia Past Medical History: Past Medical History: No date: Arrhythmia Comment: v-fib/ arrest No date: CAD (coronary artery disease) No date: Cancer (CMS/HCC) (HCC) Comment: LUNG UPPER RIGHT - SURGERY FOR REMOVAL 02/09/2024 No date: Congenital heart disease No date: Hyperlipidemia No date: Hypertension No date: MD, old Comment: STENTS PLACE No date: Sleep apnea Comment: NO CPAP WORN Past Surgical History: Past Surgical History: No date: ADENOIDECTOMY No date: APPENDECTOMY 07/05/2024: CARDIAC CATHETERIZATION; N/A Comment: Performed by Becky Tineo MD at [facility] Cardiac Cath/EP Lab 03/15/2012: CARDIAC PROCEDURE Comment: [...] 9:28 AM Equipment Requests: Additional Equipment Requests [id number] NotePatient: Sharonda Flores Procedure Information Date/Time: 07/25/24729 Procedures: CORONARY ARTERY BYPASS GRAFT (Chest) - 7:30 am, 5 hours TRANSESOPHAGEAL ECHOCARDIOGRAM Location: [address] Operating Room Surgeons: Brooklynn Martinez, DO Relevant Problems Cardio (+) Coronary artery disease involving kaw coronary artery of kaw heart without angina pectoris (+) 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) (+) Hyperlipidemia Past Medical History: Past Medical History: No date: Arrhythmia Comment: v-fib/ arrest No date: CAD (coronary artery disease) No date: Cancer (CMS/HCC) (HCC) Comment: LUNG UPPER RIGHT - SURGERY FOR REMOVAL 02/09/2024 No date: Congenital heart disease No date: Hyperlipidemia No date: Hypertension No date: MD, old Comment: STENTS PLACE No date: Sleep apnea Comment: NO CPAP WORN Past Surgical History: Past Surgical History: No date: ADENOIDECTOMY No date: APPENDECTOMY 07/05/2024: CARDIAC CATHETERIZATION; N/A Comment: Performed by Becky Tineo MD at [facility] Cardiac Cath/EP Lab 03/15/2012: CARDIAC PROCEDURE Comment: [...] 07/06/2024 9:28 AM Equipment Requests: [facility] NoteComprehensive PreSurgical History and Physical ? Name: Sharonda Flores : 1955 (Age-69 y.o.) Date of Service: Pt seen/examined on 07/18/2024 Procedure Information Date/Time: 07/25/24729 Procedures: CORONARY ARTERY BYPASS GRAFT (Chest) - 7:30 am, 5 hours TRANSESOPHAGEAL ECHOCARDIOGRAM Location: [facility] OR [address] [place] [address] Operating Room Surgeons: Brooklynn Martinez DO Chief [...] cardiopulmonary testing. 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 Pt had presented to [place] ED with a sharp pain in the [...] right VATS lobectomy for lung cancer at [facility]. He has recovered well since then. Pt [...] date: Hyperlipidemia No date: Hypertension No date: MD, old Comment: STENTS PLACE No date: Sleep apnea Comment: NO CPAP WORN Past Surgical History: Past Surgical History: No date: ADENOIDECTOMY No date: APPENDECTOMY 07/05/2024: CARDIAC CATHETERIZATION; N/A Comment: Performed by Becky Tineo MD at [facility] Cardiac Cath/EP Lab 03/15/2012: CARDIAC PROCEDURE Comment: BMS mid dis RCA 03/2012: CARDIAC PROCEDURE Comment: REBECCA to mis dist LAD 05/2012: CARDIAC PROCEDURE Comment: REBECCA to pro (more content not included)...[facility] 07-12-2024 Note* Addendum Note - SESAR Hauser CNP - 07/12/2024 10:40 AM ESTAddended by: RUDDY EATON on: 07/12/2024 10:40 AM Modules accepted: Orders [facility] [id number] Miscellaneous Notes* Addendum Note - SESAR Hauser [...] yes Date if yes: 07/18/24 1:00 pm [facility] Date of Surgery/Procedure: 07/25/24 7:30 am Medications: [] Hold as directed by CTS: [x] Per PAT protocol Medication needed prescribed: [] None [x] Nasal ointment and mouth rinse [] Other: documented in this [facility]12-13-2024 Telephone encounter Note* Telephone Encounter - SESAR Hauser CNP - 07/12/2024 10:39 AM EST Meds sent and orders placed [facility] [id number] NotePrep for Procedure Order Request: 07/12/24 Surgeon: Dr. Martinez Surgery/Procedure: CABG, ZARI Diagnosis: CAD Plan Admit: yes PAT Appointment: yes Date if yes: 07/18/24 1:00 pm [facility] Date of Surgery/Procedure: 07/25/24 7:30 am Medications: [] Hold as directed by CTS: [x] Per PAT protocol Medication needed prescribed: [] None [x] Nasal ointment and mouth rinse [] Other: [facility]12-13-2024 Telephone encounter Note* Telephone Encounter - Shira [...] Nasal ointment and mouth rinse [] Other: [facility] [id number] [facility] CARDIOVASCULAR & THORACIC SURGERY [address] [facility] [address] Dept: [phone] Dept Loc: [phone] Visit type: New Reason for Visit: CAD Assessment: 1. 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 [...] - LAD, LCx, distal RCA with known KNOT CUTTER D2), preserved LVEF (65%), HTN, HLD, PAD (follows with vascular at [place]), prior tobacco use, pulmonary nodules, adenocarcinoma s/p RUL lobectomy 01/2024 (follows with pulmonology), and psoriasis. Pt had presented to [place] ED with a sharp pain in the [...] right VATS lobectomy for lung cancer at [facility]. He has recovered well since then. Past Medical History Past Medical History: Diagnosis Date Arrhythmia v-fib/ arrest CAD (coronary artery disease) Congenital heart disease Hyperlipidemia Hypertension MD, old Sleep apnea Past Surgical History Past Surgical History: Procedure Laterality Date CARDIAC CATHETERIZATION N/A 07/05/2024 Performed by Becky Tineo MD at [facility] Cardiac Cath/EP Lab CARDIAC PROCEDURE 03/15/2012 BMS mid dis RCA CARDIAC PROCEDURE 03/2012 REBECCA to mis dist LAD CARDIAC PROCEDURE 05/2012 REBECCA to prox LCx CORONARY ANGIOPLASTY 05/2012 circ, distal RCA, & LAD Family History Family History Problem Relation Name Age of Onset Heart disease Father Thad No Known Problems Mother Cancer Maternal Grandfather Mother Social History Marital status: Work history: Retired [place] status: Never Served Social History Tobacco Use [...] exertion). Cardiovascular: Positive for (more content not included)...[facility]12-06-[facility] Hospital Discharge instructions* Discharge Instructions* Jyotiheather Vasques APRN - PAPER PROCESSING MACHINE HELPER - 07/05/2024 12:32 PM EST DISCHARGE INSTRUCTIONS PROCEDURE SITE Call your doctor with any medication questions or if you notice any side effects from your medications. If you are unable to fill your medications, please call your Outpatient Scheduler immediately. The office number is located with [...] WITH YOUR FOLLOW-UP APPOINTMENT. documented in this [facility]12-06-2024 Attending History and physical note* Becky [...] dated 06/11/[address] Tineo. [facility] CARDIOLOGY [address] [address] Dept: [phone] Dept Visit type: Established : 1955 Reason [...] 10 mg daily which he plans to belt picker today. Reviewed lipid panel drawn yesterday with patient, educated on lifestyle interventions to improve triglycerides, LDL and HDL. Continue atorvastatin 80 mg daily and ezetimibe 10 mg daily. Advised patient he needs to be on daily therapy for 3 months before we can repeat lipid panel. PAD (peripheral artery disease) - Patient following with [facility]. R > L DP pulses. Is to schedule further assessment of LLE. Continue ASA 81 mg daily, atorvastatin 80 mg daily, and ezetimibe 10 mg daily. Received records from [facility] ER following our visit today (scanned in media tab). Assessment and plan below: Follow up in about 1 month (around 07/11/2024). Subjective HPI Sharonda Flores is a 68 year old male, known to Dr. Tineo, with PMHx CAD (s/p several PCI, most recently 2011 - LAD, LCx, distal RCA with known KNOT CUTTER D2), preserved LVEF (65%), HTN, HLD, PAD (follows with vascular at [facility] [place]), prior tobacco use, pulmonary nodules, adenocarcinoma s/p RUL lobectomy 01/2024 (follows with pulmonology), and psoriasis. He contacted our office yesterday after presenting to [place] ER over the weekend with right sided [...] bilateral leg weakness. He was seen by [facility] 06/07/24 and states they found a [...] v-fib/ arrest CAD (coronary artery disease) Hyperlipidemia MD, old Sleep apnea Social History Tobacco Use [...] RAMAN Ozuna Nurse Practitioner in Interventional Cardiology [facility] - Cardiology Signed PC to patient. [...] Tineo MD at 07/05/2024 10:18 PM EST [facility] [id number] NoteH&P reviewed. The patient was examined and there are no changes to the H&P.[facility]12-06-20[facility] History and physical note* Becky Tineo [...] dated 06/11/[address] Tineo. [facility] CARDIOLOGY - [address] [address] Dept: [phone] Dept Visit type: Established : 1955 Reason [...] 10 mg daily which he plans to belt picker today. Reviewed lipid panel drawn yesterday with patient, educated on lifestyle interventions to improve triglycerides, LDL and HDL. Continue atorvastatin 80 mg daily and ezetimibe 10 mg daily. Advised patient he needs to be on daily therapy for 3 months before we can repeat lipid panel. PAD (peripheral artery disease) - Patient following with [facility]. R > L DP pulses. Is to schedule further assessment of LLE. Continue ASA 81 mg daily, atorvastatin 80 mg daily, and ezetimibe 10 mg daily. Received records from [facility] ER following our visit today (scanned in media tab). Assessment and plan below: Follow up in about 1 month (around 07/11/2024). Subjective HPI Sharonda Flores is a 68 year old male, known to Dr. Tineo, with PMHx CAD (s/p several PCI, most recently 2011 - LAD, LCx, distal RCA with known KNOT CUTTER D2), preserved LVEF (65%), HTN, HLD, PAD (follows with vascular at [place]), prior tobacco use, pulmonary nodules, adenocarcinoma s/p RUL lobectomy 01/2024 (follows with pulmonology), and psoriasis. He contacted our office yesterday after presenting to [place] ER over the weekend with right sided [...] bilateral leg weakness. He was seen by [facility] 06/07/24 and states they found a [...] v-fib/ arrest CAD (coronary artery disease) Hyperlipidemia MD, old Sleep apnea Social History Tobacco Use [...] RAMAN Ozuna Nurse Practitioner in Interventional Cardiology [facility] - Cardiology Signed PC to patient. [...] at 07/05/2024 10:18 PM EST documented in [facility]12-03-2024 Note Attestation signed by Becky Tineo MD [...] procedure. Sharonda Flores is scheduled for a [facility] with Dr. Tineo on 07/05/24 Eva Protocol: No No contrast allergy H+ P copied to chart from Horace Martinez APRN's progress note dated 06/11/[address] Tineo. [facility] CARDIOLOGY - [address] [address] Dept: [phone] Dept Visit type: Established : 1955 Reason [...] 10 mg daily which he plans to belt picker today. Reviewed lipid panel drawn yesterday with patient, educated on lifestyle interventions to improve triglycerides, LDL and HDL. Continue atorvastatin 80 mg daily and ezetimibe 10 mg daily. Advised patient he needs to be on daily therapy for 3 months before we can repeat lipid panel. PAD (peripheral artery disease) - Patient following with [facility]. R > L DP pulses. Is to schedule further assessment of LLE. Continue ASA 81 mg daily, atorvastatin 80 mg daily, and ezetimibe 10 mg daily. Received records from [facility] ER following our visit today (scanned in media tab). Assessment and plan below: Follow up in about 1 month (around 07/11/2024). Subjective HPI Sharonda Flores is a 68 year old male, known to Dr. Tineo, with PMHx CAD (s/p several PCI, most recently 2011 - LAD, LCx, distal RCA with known KNOT CUTTER D2), preserved LVEF (65%), HTN, HLD, PAD (follows with vascular at [place]), prior tobacco use, pulmonary nodules, adenocarcinoma s/p RUL lobectomy 01/2024 (follows with pulmonology), and psoriasis. He contacted our office yesterday after presenting to [place] ER over the weekend with right sided [...] last week) and bilater (more content not included)...[facility] 07-02-2024 Note Attestation signed by Becky [...] procedure. Sharonda Flores is scheduled for a [facility] with Dr. Tineo on [facility] Protocol: No No contrast allergy H+ P copied to chart from Horace Martinez APRN's progress note dated 06/11/[address] Tineo. [facility] CARDIOLOGY [address] [address] Dept: [phone] Dept Visit type: Established : 1955 Reason [...] 10 mg daily which he plans to belt picker today. Reviewed lipid panel drawn yesterday with patient, educated on lifestyle interventions to improve triglycerides, LDL and HDL. Continue atorvastatin 80 mg daily and ezetimibe 10 mg daily. Advised patient he needs to be on daily therapy for 3 months before we can repeat lipid panel. PAD (peripheral artery disease) - Patient following with [facility]. R > L DP pulses. Is to schedule further assessment of LLE. Continue ASA 81 mg daily, atorvastatin 80 mg daily, and ezetimibe 10 mg daily. Received records from [facility] ER following our visit today (scanned in media tab). Assessment and plan below: Follow up in about 1 month (around 07/11/2024). Subjective HPI Sharonda Flores is a 68 year old male, known to Dr. Tineo, with PMHx CAD (s/p several PCI, most recently 2011 - LAD, LCx, distal RCA with known KNOT CUTTER D2), preserved LVEF (65%), HTN, HLD, PAD (follows with vascular at [place]), prior tobacco use, pulmonary nodules, adenocarcinoma s/p RUL lobectomy 01/2024 (follows with pulmonology), and psoriasis. He contacted our office yesterday after presenting to [place] ER over the weekend with right sided [...] last week) and bilater (more content not included)...[facility] 07-02-2024 NoteDx: I25.118 & R94.39 Procedure: LHC Date/Time: 07/05/2024 at 10:00a Surgeon: TREMAYNE Location: [facility] Admission: OP Anesthesia: n/a Patient agreeable to above date/time. On PB calendar and no auth req per Medicare. Requested on Snapboard. I cancelled Ileana's appt on 07/04/24[facility] Telephone encounter Note* Telephone Encounter - Shonna Moreland - 06/24/2024 10:08 AM EST Received call from Non-invasive radiology stating the Stress Echo that is scheduled for tomorrow 06/25 is not passing medical necessity. *[id number] [facility] [id number] Miscellaneous Notes* Telephone Encounter - Shonna Moreland - 06/24/2024 10:08 AM EST Received call from Non-invasive radiology stating the Stress Echo that is scheduled for tomorrow 06/25 is not passing medical necessity. *[id number] documented in this encounterSWood County [id number] Telephone encounter Note* Telephone Encounter - Selene Marinelli - 06/11/2024 11:23 AM EST Scanned under Media [facility] [id number] Miscellaneous Notes* Telephone Encounter - Selene Marinelli - 06/11/2024 11:23 AM EST Scanned under Media * Telephone Encounter - Selene Marinelli - 06/11/2024 9:07 AM EST Requested ED records. Waiting on fax * Telephone Encounter - Joanna Nunez RN [...] - 06/10/2024 10:16 AM EST Chart reviewed, [facility] Dr. Tineo 01/16/24. History of several PCI, 2011, doing well at time of visit and PAD following vascular at [facility]. PCP visit today, patient went to [place] ER yesterday for right sided chest pain, [...] patient to discuss. Deann Marinelli to obtain [place] ER notes. * Telephone Encounter - Velia [...] [3] not present now Protocols used: Shoulder [id number] documented in this [facility]11-12-2024 Telephone encounter Note* Telephone Encounter - Tosin Trevizo LPN - 06/11/2024 10:38 AM EST Patient notified. Verbalized understanding. [facility]11-12-2024 Miscellaneous Notes* Telephone Encounter - Tosin Trevizo [...] team. Fortunatoterrie Jurado APRN.CNP documented in this encounterAshtab[facility]11-12-20[facility] Telephone encounter Note * Telephone Encounter - [...] with his PCP team. Fortunato Jurado APRN.CNP [facility]11-12-2024 History of Present illness Narrative* Horace Martinez APRN - RENEE - 06/11/2024 9:30 AM EST Images from the original note were not included. [facility] CARDIOLOGY - [address] [address] Dept: [phone] Dept Visit type: Established : 1955 Reason [...] 10 mg daily which he plans to belt picker today. Reviewed lipid panel drawn yesterday with patient, educated on lifestyle interventions to improve triglycerides, LDL and HDL. Continue atorvastatin 80 mg daily and ezetimibe 10 mg daily. Advised patient he needs to be on daily therapy for 3 months before we can repeat lipid panel. PAD (peripheral artery disease) - Patient following with [facility]. R > L DP pulses. Is to schedule further assessment of LLE. Continue ASA 81 mg daily, atorvastatin 80 mg daily, and ezetimibe 10 mg daily. Received records from [facility] following our visit today (scanned in media tab). Assessment and plan below: Follow up in about 1 month (around 07/11/2024). Subjective HPI Sharonda Flores is a 68 year old male, known to Dr. Tineo, with PMHx CAD (s/p several PCI, most recently 2011 - LAD, LCx, distal RCA with known KNOT CUTTER D2), preserved LVEF (65%), HTN, HLD, PAD (follows with vascular at [place]), prior tobacco use, pulmonary nodules, adenocarcinoma s/p RUL lobectomy 01/2024 (follows with pulmonology), and psoriasis. He contacted our office yesterday after presenting to [place] ER over the weekend with right sided [...] bilateral leg weakness. He was seen by [facility] 06/07/24 and states they found a [...] v-fib/ arrest CAD (coronary artery disease) Hyperlipidemia MD, old Sleep apnea Social History Tobacco Use [...] RAMAN Ozuna Nurse Practitioner in Interventional Cardiology [facility] - Cardiology documented in this [facility]11[facility]12-2024 History of Present illness Narrative* SESAR Pierson CNP - 06/11/2024 9:30 AM EST Images from the original note were not included. [facility] CARDI[facility] - [address] [address] Dept: [phone] Dept Visit type: Established : 1955 Reason [...] 10 mg daily which he plans to belt picker today. Reviewed lipid panel drawn yesterday with patient, educated on lifestyle interventions to improve triglycerides, LDL and HDL. Continue atorvastatin 80 mg daily and ezetimibe 10 mg daily. Advised patient he needs to be on daily therapy for 3 months before we can repeat lipid panel. PAD (peripheral artery disease) - Patient following with [facility]. R > L DP pulses. Is to schedule further assessment of LLE. Continue ASA 81 mg daily, atorvastatin 80 mg daily, and ezetimibe 10 mg daily. Received records from [facility] ER following our visit today (scanned in media tab). Assessment and plan below: Follow up in about 1 month (around 07/11/2024). Subjective HPI Sharonda Flores is a 68 year old male, known to Dr. Tineo, with PMHx CAD (s/p several PCI, most recently 2011 - LAD, LCx, distal RCA with known KNOT CUTTER D2), preserved LVEF (65%), HTN, HLD, PAD (follows with vascular at [facility]), prior tobacco use, pulmonary nodules, adenocarcinoma s/p RUL lobectomy 01/2024 (follows with pulmonology), and psoriasis. He contacted our office yesterday after presenting to [place] ER over the weekend with right sided [...] bilateral leg weakness. He was seen by [facility] 06/07/24 and states they found a [...] v-fib/ arrest CAD (coronary artery disease) Hyperlipidemia MD, old Sleep apnea Social History Tobacco Use [...] RAMAN Ozuna Nurse Practitioner in Interventional Cardiology [facility] - Cardiology documented in this [facility]11[facility]12[facility] Instructions* Patient Instructions* SESAR Pierson CNP - 06/11/2024 9:30 AM EST Please obtain a blood pressure cuff for home monitoring. You can find these at any local pharmacy, [facility], etc. It should be an upper arm [...] your follow up appointments. documented in this [facility] Instructions* Patient Instructions* SESAR Pierson CNP - 06/11/2024 9:30 AM EST Please obtain a blood pressure cuff for home monitoring. You can find these at any local pharmacy, [facility], etc. It should be an upper arm [...] your follow up appointments. documented in this encounterSWood County [id number] Telephone encounter Note* Telephone Encounter - Selene Marinelli - 06/11/2024 9:07 AM EST Requested ED records. Waiting on fax [id number] Telephone encounter Note* Telephone Encounter - Joanna Nunez RN - 06/10/2024 2:59 PM EST Spoke with patient and scheduled appt tomorrow Gerri Martinez APRN [place] [id number] Miscellaneous Notes* Telephone Encounter - Joanna Nunez [...] - 06/10/2024 10:16 AM EST Chart reviewed, [facility] Dr. Tineo 01/16/24. History of several PCI, 2011, doing well at time of visit and PAD following vascular at [facility]. PCP visit today, patient went to [place] ER yesterday for right sided chest pain, [...] patient to discuss. Deann Marinelli to obtain [place] ER notes. * Telephone Encounter - Velia [...] [3] not present now Protocols used: Shoulder [id number] documented in this [facility]11[facility] Telephone encounter Note* Telephone Encounter - SESAR Pierson CNP - 06/10/2024 2:43 PM EST Chart and message reviewed. Agree with sooner follow up. I have openings tomorrow if patient is available. [email or web address] Phone: [phone] 600-587511-11-2024 Telephone encounter Note* Telephone Encounter - Joanna [...] Gerri Martinez APRN to review and advise. [facility] [id number] Telephone encounter Note* Telephone Encounter - Joanna Nunez RN - 06/10/2024 10:16 AM EST Chart reviewed, [facility] Dr. Tineo 01/16/24. History of several PCI, 2011, doing well at time of visit and PAD following vascular at [facility]. PCP visit today, patient went to [place] ER yesterday for right sided chest pain, [...] patient to discuss. Deann Marinelli to obtain [place] ER notes. [facility] [id number] Instructions* Patient Instructions* Fortunato Jurado APRN.CNP - 06/10/2024 7:07 AM EST Pipo sent Get cholesterol panel Call clinical informaticist to follow up Continue to follow with vascular medicine If you get chest pain or pass, you go back to the ER. See Dr. Tello is back in 3 months. Fortunato Jurado APRN.CNP documented in this encounterAshtabula [facility] Hospital11-11-2024 History of Present illness Narrative* Fortunato Jurado APRN.CNP - 06/10/2024 7:00 AM EST Chief Complaint Patient presents with: Follow Up: 3 month ER f/u Monday, minor chest pain, left arm pain, bad taste. Went to [facility] HPI Sharonda Flores is a 68 year old male who presents here today for Chronic Medical Conditions. Patient is here for 3-month follow-up. Taking medications as prescribed. Following with pulmonology/oncology for history of malignant neoplasm of the right upper lobe of the lung. Following with vascular at [place] for PAD. Mentions that he went to the emergency room yesterday for right-sided chest pain. Went to [facility]. Troponin is negative. CMP,CBC normal. Chest x-ray [...] exerting hi mself/walking. He is calling his clinical informaticist today for follow up. Today, he is [...] I73.9 -Continue with plan to follow-up with [facility]. 4. Coronary artery disease involving kaw coronary artery of kaw heart without angina pectoris- ICD9: 414.01, ICD10: I25.10 -No current complaints of chest pain. He will make an appointment to follow-up with his clinical informaticist. I provided some reassurance that some of his symptoms were at rest. Exam seems to be more musculoskeletal origin. Discussed back to the ER for chest pain or syncope. Fortunato Jurado APRN.CNP RTO in 3 months, sooner if needed. This note was partly generated using Scint-X voice recognition dictation and may contain some misspelled or inaccurate words missed on review. documented in this encounterAshtabula General Hospital11-11-2024 NoteHNO ID: [id number] Author: FORTUNATO JURADO APRN.CNP Service: ? Author Type: Nurse Practitioner Type: Progress Notes Filed: 06/11/2024 09:47 Note Text: Chief Complaint Patient presents with: Follow Up: 3 month ER f/u Monday, minor chest pain, left arm pain, bad taste. Went to [facility] HPI Sharonda Flores is a 68 year old male who presents here today for Chronic Medical Conditions. Patient is here for 3-month follow-up. Taking medications as prescribed with the exception of Zetia. Not sure if he has it at home. Following with pulmonology/oncology for history of malignant neoplasm of the right upper lobe of the lung. Following with vascular at [place] for PAD. Mentions that he went to the emergency room yesterday for right-sided chest pain. Went to [facility]. Troponin is negative. CMP,CBC normal. Chest x-ray [...] was exerting himself/walking. He is calling his clinical informaticist today for follow up. Today, he is [...] I73.9 -Continue with plan to follow-up with [facility]. 4. Coronary artery disease involving kaw coronary artery of kaw heart without angina pectoris - ICD9: 414.01, ICD10: I25.10 -No current complaints of chest pain. He will make an appointment to follow-up with his clinical informaticist. I provided some reassurance that some of his symptoms were at rest. Exam seems to be more musculoskeletal origin. Discussed back to the ER for chest pain or syncope. Fortunato Jurado APRN.PAPER PROCESSING MACHINE HELPER RTO in 3 months, sooner if needed. This note was partly generated using Scint-X voice recognition dictation and may contain some misspelled or inaccurate words missed on review.[facility]11-09-2024 Telephone encounter Note* Telephone Encounter - Velia Morgan RN - 06/08/2024 6:29 AM EST S: Patient spoke with [facility] nurse regarding meds refill s and an appointment request. B: Onset of symptoms on and off for several months. [facility] 01/21. A: L shoulder is aching and [...] sx's 4 days ago. Uses [facility] in [place]. R: Referred to the ER for eval. [...] [3] not present now Protocols used: Shoulder [id number] Miscellaneous Notes* Telephone Encounter - Velia Morgan RN - 06/08/2024 6:29 AM EST S: Patient spoke with [facility] nurse regarding meds refill s and an appointment request. B: Onset of symptoms on and off for several months. [facility] 01/21. A: L shoulder is aching and [...] sx's 4 days ago. Uses [facility] in [place]. R: Referred to the ER for eval. [...] [3] not present now Protocols used: Shoulder [id number]-MF documented in this [facility]10[facility] History of Present illness Narrative* Jazmyn Mas MD - 05/21/2024 8:45 AM EDT Images from the original note were not included. . [facility] [place] Note Patient name: Sharonda Flores PCP: Tima Tello MD Referring Physician: Shaylee Woods CC: Lung cancer HPI: Sharonda Flores 68 year old male former 37 pack year smoker, quitting in 2010 with PMH significant for CAD s/p stents, PAD, psoriasis, pulmonary nodules, adenocarcinoma of lung s/p RUL lobectomy 01/2024, patient is new to [place]. Participating in lung cancer screening program, multiple pulmonary nodules with note of an enlarging RUL semisolid nodule. EBUS biopsy did not show definitive cancer. Status post right upper lobectomy with final pathologic stage [id number]. No chemotherapy or radiation. Being seen by [...] DATE OF EXAM: Dec 13 2023 8:37AM [id number] - CT CHEST WO IVCON / [...] neoplasm of colon Coronary artery disease involving kaw coronary artery of kaw heart without angina pectoris Dr. Tineo Essential [...] block, mediastinal lymph node dissection Psoriasis [facility] S/P lobectomy of lung Thrombocytopenia (HCC) Tinnitus [...] initiating inhaled therapy Jazmyn Mas MD [facility] [place] documented in this encounterAshtabula General Hospital10-15-2024 Telephone encounter Note * Telephone Encounter - Shaylee Ochoa LPN - 05/14/2024 3:17 PM EDT Contacted Marisa at [facility] and advised neither Dr Tello Or Dr Dumont noted any contraindications with medication. She stated she would update Dr Valderrama. Contacted patient and updated him aswell. Shaylee Ochoa LPN [facility]10-15-2024 Miscellaneous Notes* Telephone Encounter - Shaylee Ochoa LPN - 05/14/2024 3:17 PM EDT Contacted Marisa at [facility] and advised neither Dr Tello Or Dr [...] report that Dr. Jose Hassan with [facility] would like to place patient on Cosentyx for psoriasis but given his history of lung nodules and cancer Dr. Hassan wanted him to check with PCP to see if that would be ok for him to be prescribed. Contact number for patient: [phone] Contact number for [facility]: [phone] Jocelyn Dumont RN documented in this encounterAshtabula General Hospital10-15-2024 Telephone encounter Note * Telephone Encounter - Analy Dumont DO - 05/14/2024 12:41 PM EDT No contraindication for Cosentyx given history of lung cancer. Analy Dumont DO [facility]10-15-2024 Telephone encounter Note* Telephone Encounter - Tima Tello MD - 05/14/2024 10:55 AM EDT I am not seeing a contraindication for history of lung cancer or lung nodules for Cosentyx. I will forward this message to his oncologist to see if they have concerns with him starting this medication now. [facility]10-15-20[facility] Telephone encounter Note* Telephone Encounter - Jocelyn Dumont RN - 05/14/2024 9:54 AM EDT Patient calls to report that Dr. Jose Hassan with [facility] would like to place patient on Cosentyx for psoriasis but given his history of lung nodules and cancer Dr. Hassan wanted him to check with PCP to see if that would be ok for him to be prescribed. Contact number for patient: [phone] Contact number for [facility]: [phone] Jocelyn Dumont RN [facility]10-07-2024 Telephone encounter Note* Telephone Encounter - Monique Reilly LPN - 05/06/2024 4:51 PM EDT Patient calling he said he phoned [facility] and they did not have his referral information. Patient said he wanted to see Vascular at [facility], Told him [facility], he did not have phonenumber or fax number. Phoned [phone] and fax number is [phone]. Printed face sheet, referral, office notes, xray and testing faxed as requested. [facility]10-07-2024 Miscellaneous Notes* Telephone Encounter - Monique Reilly LPN - 05/06/2024 4:51 PM EDT Patient calling he said he phoned [facility] and they did not have his referral information. Patient said he wanted to see Vascular at [facility], Told him [facility], he did not have phonenumber or fax number. Phoned [phone] and fax number is [phone]. Printed face sheet, referral, office notes, xray and testing faxed as requested. documented in this encounterAshtabula General Hospital10-07-2024 History of Present illness Narrative* Alejandra Viramontes APRN.PAPER PROCESSING MACHINE HELPER - 05/06/2024 3:15 PM EDT 05/06/2024 Patient presents with: Follow Up SUBJECTIVE: This is a 68 year old that is here today for Above Complaints. Seen in [facility] Care on 05/01/2024 for left lower [...] neoplasm of colon Coronary artery disease involving kaw coronary artery of kaw heart without angina pectoris Dr. Tineo Essential hypertension Heart attack (HCC) 2011 History of tobacco use Multiple lung nodules on CT 11/09/2023 PET scan ordered PAD (peripheral artery disease) (HCC) 04/04/2024 Mild to moderate disease LLE on LINH Primary lung adenocarcinoma, right (HCC) RUL,s/p 02/09/24 flexible bronchoscopy, right VATS, right upper lobe wedge resection, cryo nerve block, mediastinal lymph node dissection Psoriasis [facility] S/P lobectomy of lung Thrombocytopenia (HCC) Tinnitus [...] Level: 3 - Low documented in this encounterAshtabula General Hospital10-04-2024 History of Present illness Narrative* Alejandra Viramontes APRN.CNP - 05/03/2024 11:40 AM EDT 05/03/2024 Patient presents with: Follow Up: Left lower extremity spider bite SUBJECTIVE: This is a 68 year old that is here today for Above Complaints. Seen in [facility] Care on 05/01/2024 for left lower [...] neoplasm of colon Coronary artery disease involving kaw coronary artery of kaw heart without angina pectoris Dr. Tineo Essential hypertension Heart attack (HCC) 2011 History of tobacco use Multiple lung nodules on CT 11/09/2023 PET scan ordered PAD (peripheral artery disease) (HCC) 04/04/2024 Mild to moderate disease LLE on LINH Primary lung adenocarcinoma, right (HCC) RUL,s/p 02/09/24 flexible bronchoscopy, right VATS, right upper lobe wedge resection, cryo nerve block, mediastinal lymph node dissection Psoriasis [facility] S/P lobectomy of lung Thrombocytopenia (HCC) Tinnitus [...] Level: 4 - Moderate documented in this encounterAshtabula General Hospital10-02-2024 Telephone encounter Note * Telephone Encounter - Marisa Faulkner LPN - 05/01/2024 4:04 PM EDT Patient stopped into the office this day. Asking in regards to vascular medicine scheduling. Patient voiced he would like to be seen at [facility] Vascular med. Order and demographics faxed to central scheduling. Requested they call patient to schedule. Patient instructed to call [facility] scheduling if he doesnot hear from them in 3 days. Patient voices understanding. Marisa Faulkner LPN [facility]10-02-2024 Miscellaneous Notes* Telephone Encounter - Marisa Faulkner LPN - 05/01/2024 4:04 PM EDT Patient stopped into the office this day. Asking in regards to vascular medicine scheduling. Patient voiced he would like to be seen at [facility] Vascular med. Order and demographics faxed to central scheduling. Requested they call patient to schedule. Patient instructed to call [facility] scheduling if he doesnot hear from them in 3 days. Patient voices understanding. Marisa Faulkner LPN documented in this encounterAshtabula General Hospital10-02-2024 History of Present illness Narrative* Elijah Sanders, SEASR.PAPER PROCESSING MACHINE HELPER - 05/01/2024 3:11 PM EDT Images from [...] neoplasm of colon Coronary artery disease involving kaw coronary artery of kaw heart without angina pectoris Dr. Tineo Essential hypertension Heart attack (HCC) 2011 History of tobacco use Multiple lung nodules on CT 11/09/2023 PET scan ordered PAD (peripheral artery disease) (HCC) 04/04/2024 Mild to moderate disease LLE on LINH Primary lung adenocarcinoma, right (HCC) RUL,s/p 02/09/24 flexible bronchoscopy, right VATS, right upper lobe wedge resection, cryo nerve block, mediastinal lymph node dissection Psoriasis [facility] S/P lobectomy of lung Thrombocytopenia (HCC) Tinnitus [...] of care. This note was generated using Scint-X software. It may contain errors in wording, punctuation, or spelling. Elijah Sanders APRN.RENEE documented in this encounterAshtabula General Hospital09-06-2024 Telephone encounter Note * Telephone Encounter - Brianna Salinas RN - 04/05/2024 11:53 AM EDT Patient returned call and given provider's message below and patient verbalized understanding. Jackie Salinas RN [facility]09-06-2024 Miscellaneous Notes* Telephone Encounter - Brianna Salinas [...] with Vascular Medicine and was transferred to manager support services to make appt. Patient would like PCP [...] vascular for further evaluation. documented in this encounterAshtabula General Hospital09-06-2024 Telephone encounter Note * Telephone Encounter - Tima Tello MD - 04/05/2024 11:46 AM EDT Unless he develops pain in his calf with walking, color change, or cold extremity I would not change his regimen at this point. I would have him follow up with vascular as ordered and call if symptoms worsen. [facility]09-06-2024 Telephone encounter Note* Telephone Encounter - Brianna Salinas RN - 04/05/2024 11:29 AM EDT Patient given provider's message below. Patient agreeable to schedule with Vascular Medicine and was transferred to manager support services to make appt. Patient would like PCP to know that his symptoms continue; Having hot and cold sensations in both feet, more so in his right foot, and curious that it may be nerve related since his recent lung procedure. No swelling or changes in color to feet. Please advise patient further, if appropriate. Thank you. [facility]09-05-2024 Telephone encounter Note* Telephone Encounter - Shaylee Ochoa LPN - 04/04/2024 4:15 PM EDT Message left for patient to return call to review results. Shaylee Ochoa LPN [facility]09-05-2024 Telephone encounter Note* Telephone Encounter - Tima Tello MD - 04/04/2024 12:21 PM EDT Patient's Ankle Brachial index shows normal blood flow to the right extremity. The left extremity shows mild to moderate occlusive disease. He is already taking ASA and statin. Will refer to vascular for further evaluation. [facility]08-21-20[facility] History of Present illness Narrative* Analy Dumont [...] testing will be performed A, C. Dr. Eriac Roberts has reviewed this case and agrees [...] colon No date: Coronary artery disease involving kaw coronary artery of kaw heart without angina pectoris Comment: Dr. Tineo No date: Essential hypertension 2012: Heart attack (HCC) No date: History of tobacco use 11/09/2023: Multiple lung nodules on CT Comment: PET scan ordered No date: Primary lung adenocarcinoma, right (HCC) Comment: RUL,s/p 02/09/24 flexible bronchoscopy, right VATS, right upper lobe wedge resection, cryo nerve block, mediastinal lymph node dissection No date: Psoriasis Comment: [facility] No date: S/P lobectomy of lung No [...] which included preparing to see the patient, [id number] patient care, completing clinical documentation, obtaining and/or reviewing separately obtained history, performing a medically appropriate examination, counseling and educating the pat ient/family/caregiver, ordering medications, tests, or procedures, communicating with other HCPs (not separately reported), and communicating results to the patient/family/caregiver. Analy Dumont DO documented in this encounterAshtabula General Hospital08-13-2024 Telephone encounter Note * Telephone Encounter - Shaylee Ochoa LPN - 03/12/2024 2:29 PM EDT Phoned patient and updated him with results. Patient voiced understanding. Shaylee Ochoa LPN [facility]08-13-2024 Miscellaneous Notes* Telephone Encounter - Shaylee Ochoa [...] for fracture or dislocation. documented in this encounterAshtabula General Hospital08-12-2024 Telephone encounter Note * Telephone Encounter - Shaylee Ochoa LPN - 03/11/2024 3:13 PM EDT ----- Message from Tima Tello MD sent at 03/11/2024 9:15 AM EDT ----- Xray of the right foot negative for fracture or dislocation. [facility]08-12-2024 History of Present illness Narrative* Alfredo Gan [...] PATIENT PRESENTS WITH AN IMPLANTABLE OR ATTACHED ARMATURE TESTER: No RADIOLOGY DEPARTMENT: General X-ray: Exam(s) Completed: Lower Extremity X- Ray(s): Foot, Right and Wt. Bearing PERIPHERAL IV DATA: Not applicable SIGNED BY: RT Jose Carlos(R) March 11, 2024 8:30 AM documented in this encounterAshtabula General Hospital08-12-2024 History of Present illness Narrative* Tima Tello [...] colon No date: Coronary artery disease involving kaw coronary artery of kaw heart without angina pectoris Comment: Dr. Tineo No date: Essential hypertension No date: History of tobacco use 11/09/2023: Multiple lung nodules on CT Comment: PET scan ordered No date: Psoriasis Comment: [facility] No date: Thrombocytopenia (HCC) No date: Tinnitus [...] surgery recommendations. 6. Coronary artery disease involving kaw coronary artery of kaw heart without angina pectoris- ICD9: 414.01, ICD10: I25.10 Asymptomatic on medical management. 7. Essential hypertension - ICD9: 401.9, ICD10: I10 - Controlled - Continue current medications - Recommend home blood pressure monitoring, to bring results to next visit - Encouraged sodium restriction, DASH or Mediterranean diet - Recommend regular aerobic exercise Tima Tello MD documented in this encounterAshtabula General Hospital08-05-2024 Telephone encounter Note * Telephone Encounter - Conrado Yao MA - 03/04/2024 9:[address] Analy Dumont (Oncologist) office phone [phone] fax [phone] [facility] Faxed referral for right lung cancer, 02/29/24 office encounter, 02/09/24 operative report & pathology on 03/04/24 [facility]08-05-2024 Miscellaneous Notes* Telephone Encounter - Conrado Yao MA - 03/04/2024 9:[address] Analy Dumont (Oncologist) office phone [phone] fax [phone] [facility] Faxed referral for right lung cancer, 02/29/24 office encounter, 02/09/24 operative report & pathology on 03/04/24 documented in this encounterAshtabula General Hospital08-05-2024 Telephone encounter Note * Telephone Encounter - [...] giving improvement, but not resolving. Contact information: [phone] How call resolved:Encouraged patient to continue regimen, add ice/heat to site and lidocaine patches. Required follow up: Patient to follow up on Monday with phone call on how pain doing. SIGNATURE: Charlene Amaya APRN.CNP DATE of SERVICE: 03/04/2024 TIME of SERVICE: 9:04 AM [facility] Work Phone: [phone] Miscellaneous Notes* Telephone Encounter - Charlene Amaya APRN.PAPER PROCESSING MACHINE HELPER - 03/04/2024 9:03 AM EDT Images from [...] giving improvement, but not resolving. Contact information: [phone] How call resolved:Encouraged patient to continue regimen, add ice/heat to site and lidocaine patches. Required follow up: Patient to follow up on Monday with phone call on how pain doing. SIGNATURE: Charlene Amaya APRN.CNP DATE of SERVICE: 03/04/2024 TIME of SERVICE: 9:04 AM documented in this encounterAs[facility]08-[facility]24 Instructions* Patient Instructions* Shaylee Woods APRN.CNP - [...] with your main providers, they are you clinical informaticist , primary care doctor for medications refills/questions and future health management. REFERRALS PLACED TO PULMONOLOGY AND ONCOLOGY TODAY. You need to see both in follow up You can follow up with cardiac surgery team on as needed basis. Please don't hesitate to contact us if you have any concerns/questions: [phone] Thanks for coming in to see me today. Shaylee Woods APRN.CNP documented in this encounterAshtabula [facility] Hospital08-01-2024 NoteHNO ID: [id number] Author: SHAYLEE WOODS APRN.CNP Service: ? Author [...] colon No date: Coronary artery disease involving kaw coronary artery of kaw heart without angina pectoris Comment: Dr. Tineo No date: Essential hypertension No date: History of tobacco use 11/09/2023: Multiple lung nodules on CT Comment: PET scan ordered No date: Psoriasis Comment: [facility] No date: Thrombocytopenia (HCC) No date: Tinnitus of both ears PAST SURGICAL HISTORY 10/08/2008: COLONOSCOPY FLX DX W/COLLJ SPEC WHEN PFRMD Comment: Colonoscopy 08/03/2021 (more content not included)...[facility]08-01-2024 History of Present illness Narrative* Shaylee Woods, SESAR.PAPER PROCESSING MACHINE HELPER - 02/29/2024 9:45 AM EDT HPI: Per [...] colon No date: Coronary artery disease involving kaw coronary artery of kaw heart without angina pectoris Comment: Dr. Tineo No date: Essential hypertension No date: History of tobacco use 11/09/2023: Multiple lung nodules on CT Comment: PET scan ordered No date: Psoriasis Comment: [facility] No date: Thrombocytopenia (HCC) No date: Tinnitus [...] - referrals placed to oncology and pulmonology ([facility]). Reviewed at length with pt and brother [...] 29, 2024, 9:45 AM documented in this encounterAshtabula [facility]07-29-2024 Telephone encounter Note * Telephone Encounter - Stoney Talavera LPN - 02/26/2024 7:30 AM EDT See Telephone Encounter from Dr. Francois's OPERATOR PREFINISH, 02/22/2024 10:36AM. Stoney Talavera LPN February 26, 2024 7:30 AM [facility]07-29-[facility]24 Miscellaneous Notes* Telephone Encounter - Stoney Talavera LPN - 02/26/2024 7:30 AM EDT See Telephone Encounter from Dr. Francois's OPERATOR PREFINISH, 02/22/2024 10:36AM. Stoney Talavera LPN February 26, [...] medication. Patient states he had to call [facility] who ran tests and he checked-out fine. Patient states he is experiencing right-sided pain of his chest. He was provided refills of oxycodone by [facility] however the pain is starting to feel like it did before. Patient states it feels like a fire cracker. Stoney Talavera LPN February 22, 2024 10:18 AM documented in this encounterAshtabula General Hospital07-25-2024 Telephone encounter Note * Telephone Encounter - [...] medication. Patient states he had to call [facility] who ran tests and he checked-out fine. Patient states he is experiencing right-sided pain of his chest. He was provided refills of oxycodone by [facility] however the pain is starting to feel like it did before. Patient states it feels like a fire cracker. Stoney Talavera LPN February 22, 2024 10:18 AM [facility]07[facility] Telephone encounter Note* Telephone Encounter - Charlene Amaya APRN.PAPER PROCESSING MACHINE HELPER - 02/22/2024 10:15 AM EDT Images from [...] worst. Was dc'd with oxycodone. Contact information: [phone] How call resolved: Instructed to start tylenol 1000mg QID and start flexiril 10mg TID PRN for pain and continue to use oxy prn. Scripts sent to pharmacy Required follow up: Has f/u on 02/28 SIGNATURE: Charlene Amaya APRN.CNP DATE of SERVICE: 02/22/2024 TIME of SERVICE: 10:15 AM [facility] Miscellaneous Notes* Telephone Encounter - Charlene Amaya [...] worst. Was dc'd with oxycodone. Contact information: [phone] How call resolved: Instructed to start tylenol [...] tried calling him at 02/22/24 9:27am twice ([phone]), it seems like someone answers but no one speaks. 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 documented in this encounterAshtabula General Hospital07-25-2024 Telephone encounter Note * Telephone Encounter - Conrado Yao MA - 02/22/2024 9:29 AM EDT Mr. Quijano left voicemail 02/22/24 8:29am stating he is pain and having cold sweats because of pain. He also said if he didn't hear back from our office soon, he was going to urgent care. I tried calling him at 02/22/24 9:27am twice ([phone]), it seems like someone answers but no one speaks. 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 [facility]07-[facility] Telephone encounter Note* Telephone Encounter - Chavez - 02/20/2024 6:00 PM EDT Record ID: [id number] Patient name: Sharonda Flores Date: February 20, [...] [facility] It seems you [...] any questions or concerns.Thank you for [facility]! -> Great! Now we are in a [...] noticed them? -> Worse To reach Nurse personnel generalist manager via phone, please call [ ](tel:[phone]) or toll-free at [ ](tel:[phone]). Thank you for your time and allowing us to care for you. We will check in on you over the next four weeks to ensure you continue to recover and support your needs. Inthe meantime, please reach out to your PCP for any questions or concerns.Thank you for choosing [facility]! -> Thank you for your time and allowing us to care for you. We will check in on you over the next fourweeks to ensure you continue to recover and support your needs. In the meantime, please reach out to your PCP for any questions or concerns.Thank you for choosing [facility]! -> Thank you for your time and allowing us to care for you. We will check in on you over the next fourweeks to ensure you continue to recover and support your needs. In the meantime, please reach out to your PCP for any questions or concerns.Thank you for choosing [facility]! -> Thank you for your time and allowing us to care for you. We will check in on you over the next fourweeks to ensure you continue to recover and support your needs. In the meantime, please reach out to your PCP for any questions or concerns.Thank you for choosing [facility]! -> Thank you for your time and allowing us to care for you. We will check in on you over the next fourweeks to ensure you continue to recover and support your needs. In the meantime, please reach out to your PCP for any questions or concerns.Thank you for choosing [facility]! -> Thank you for your time and allowing us to care for you. We will check in on you over the next fourweeks to ensure you continue to recover and support your needs. In the meantime, please reach out to your PCP for any questions or concerns.Thank you for choosing [facility]! -> [facility] Miscellaneous Notes* Telephone Encounter - Chavez - 02/20/2024 6:00 PM EDT Record ID: [id number] Patient name: Sharonda Flores Date: February 20, [...] [facility] It seems you [...] any questions or concerns.Thank you for choosing [facility]! -> Great! Now we are in a [...] noticed them? -> Worse To reach Nurse personnel generalist manager via phone, please call [ ](tel:[phone]) or toll-free at [ ](tel:[phone]). Thank you for your time and allowing us to care for you. We will check in on you over the next four weeks to ensure you continue to recover and support your needs. Inthe meantime, please reach out to your PCP for any questions or concerns.Thank you for choosing [facility]! -> Thank you for your time and allowing us to care for you. We will check in on you over the next fourweeks to ensure you continue to recover and support your needs. In the meantime, please reach out to your PCP for any questions or concerns.Thank you for choosing [facility]! -> Thank you for your time and allowing us to care for you. We will check in on you over the next fourweeks to ensure you continue to recover and support your needs. In the meantime, please reach out to your PCP for any questions or concerns.Thank you for choosing [facility]! -> Thank you for your time and allowing us to care for you. We will check in on you over the next fourweeks to ensure you continue to recover and support your needs. In the meantime, please reach out to your PCP for any questions or concerns.Thank you for choosing [facility]! -> Thank you for your time and allowing us to care for you. We will check in on you over the next fourweeks to ensure you continue to recover and support your needs. In the meantime, please reach out to your PCP for any questions or concerns.Thank you for choosing [facility]! -> Thank you for your time and allowing us to care for you. We will check in on you over the next fourweeks to ensure you continue to recover and support your needs. In the meantime, please reach out to your PCP for any questions or concerns.Thank you for choosing [facility]! -> documented in this encounterAshtabula General Hospital07-20-2024 Telephone encounter Note * Telephone Encounter - Chavez - 02/17/2024 7:29 AM EDT Record ID: [id number] Patient name: Sharonda Flores Date: February 17, [...] [facility]. It seems you [...] any questions or concerns.Thank you for choosing [facility]! -> Great! Now we are in a [...] noticed them? -> Worse To reach Nurse personnel generalist manager via phone, please call [ ](tel:[phone]) or toll-free at [ ](tel:[phone]). Thank you for your time and allowing us to care for you. We will check in on you over the next four weeks to ensure you continue to recover and support your needs. Inthe meantime, please reach out to your PCP for any questions or concerns.Thank you for choosing [facility]! -> Thank you for your time and allowing us to care for you. We will check in on you over the next fourweeks to ensure you continue to recover and support your needs. In the meantime, please reach out to your PCP for any questions or concerns.Thank you for choosing [facility]! -> Thank you for your time and allowing us to care for you. We will check in on you over the next fourweeks to ensure you continue to recover and support your needs. In the meantime, please reach out to your PCP for any questions or concerns.Thank you for choosing [facility]! -> Thank you for your time and allowing us to care for you. We will check in on you over the next fourweeks to ensure you continue to recover and support your needs. In the meantime, please reach out to your PCP for any questions or concerns.Thank you for choosing [facility]! -> Thank you for your time and allowing us to care for you. We will check in on you over the next fourweeks to ensure you continue to recover and support your needs. In the meantime, please reach out to your PCP for any questions or concerns.Thank you for choosing [facility]! -> [facility]07-[facility] Miscellaneous Notes* Telephone Encounter - Chavez - 02/17/2024 7:29 AM EDT Record ID: [id number] Patient name: Sharonda Flores Date: February 17, [...] [facility] It seems you [...] any questions or concerns.Thank you for choosing [facility]! -> Great! Now we are in a [...] noticed them? -> Worse To reach Nurse personnel generalist manager via phone, please call [ ](tel:[phone]) or toll-free at [ ](tel:[phone]). Thank you for your time and allowing us to care for you. We will check in on you over the next four weeks to ensure you continue to recover and support your needs. Inthe meantime, please reach out to your PCP for any questions or concerns.Thank you for choosing [facility]! -> Thank you for your time and allowing us to care for you. We will check in on you over the next fourweeks to ensure you continue to recover and support your needs. In the meantime, please reach out to your PCP for any questions or concerns.Thank you for choosing [facility]! -> Thank you for your time and allowing us to care for you. We will check in on you over the next fourweeks to ensure you continue to recover and support your needs. In the meantime, please reach out to your PCP for any questions or concerns.Thank you for choosing [facility]! -> Thank you for your time and allowing us to care for you. We will check in on you over the next fourweeks to ensure you continue to recover and support your needs. In the meantime, please reach out to your PCP for any questions or concerns.Thank you for choosing [facility]! -> Thank you for your time and allowing us to care for you. We will check in on you over the next fourweeks to ensure you continue to recover and support your needs. In the meantime, please reach out to your PCP for any questions or concerns.Thank you for choosing [facility]! -> documented in this encounterAshtabula [facility] Hospital07-20-2024 Telephone encounter Note * Telephone Encounter - Chavez - 02/17/2024 5:21 AM EDT Record ID: [id number] Patient name: Sharonda Flores Date: February 17, [...] [facility] It seems you [...] any questions or concerns.Thank you for choosing [facility]! -> Great! Now we are in a [...] noticed them? -> Worse To reach Nurse personnel generalist manager via phone, please call [ ](tel:[phone]) or toll-free at [ ](tel:[phone]). Thank you for your time and allowing us to care for you. We will check in on you over the next four weeks to ensure you continue to recover and support your needs. Inthe meantime, please reach out to your PCP for any questions or concerns.Thank you for choosing [facility]! -> Thank you for your time and allowing us to care for you. We will check in on you over the next fourweeks to ensure you continue to recover and support your needs. In the meantime, please reach out to your PCP for any questions or concerns.Thank you for choosing [facility]! -> Thank you for your time and allowing us to care for you. We will check in on you over the next fourweeks to ensure you continue to recover and support your needs. In the meantime, please reach out to your PCP for any questions or concerns.Thank you for choosing [facility]! -> Thank you for your time and allowing us to care for you. We will check in on you over the next fourweeks to ensure you continue to recover and support your needs. In the meantime, please reach out to your PCP for any questions or concerns.Thank you for choosing [facility]! -> [facility]07-20-[facility] Miscellaneous Notes* Telephone Encounter - Chavez - 02/17/2024 5:21 AM EDT Record ID: [id number] Patient name: Sharonda Flores Date: February 17, [...] [facility] It seems you [...] any questions or concerns.Thank you for choosing [facility]! -> Great! Now we are in a [...] noticed them? -> Worse To reach Nurse personnel generalist manager via phone, please call [ ](tel:[phone]) or toll-free at [ ](tel:[phone]). Thank you for your time and allowing us to care for you. We will check in on you over the next four weeks to ensure you continue to recover and support your needs. Inthe meantime, please reach out to your PCP for any questions or concerns.Thank you for choosing [facility]! -> Thank you for your time and allowing us to care for you. We will check in on you over the next fourweeks to ensure you continue to recover and support your needs. In the meantime, please reach out to your PCP for any questions or concerns.Thank you for choosing [facility]! -> Thank you for your time and allowing us to care for you. We will check in on you over the next fourweeks to ensure you continue to recover and support your needs. In the meantime, please reach out to your PCP for any questions or concerns.Thank you for choosing [facility]! -> Thank you for your time and allowing us to care for you. We will check in on you over the next fourweeks to ensure you continue to recover and support your needs. In the meantime, please reach out to your PCP for any questions or concerns.Thank you for choosing [facility]! -> documented in this encounterAshtabula [facility] Hospital07-20-2024 Telephone encounter Note * Telephone Encounter - Chavez - 02/17/2024 5:20 AM EDT Record ID: [id number] Patient name: Sharonda Flores Date: February 17, [...] within two weeks of being discharged from [facility] to oversee your recovery. It seems you [...] any questions or concerns.Thank you for choosing [facility]! -> Great! Now we are in a [...] noticed them? -> Worse To reach Nurse personnel generalist manager via phone, please call [ ](tel:[phone]) or toll-free at [ ](tel:[phone]). Thank you for your time and allowing us to care for you. We will check in on you over the next four weeks to ensure you continue to recover and support your needs. Inthe meantime, please reach out to your PCP for any questions or concerns.Thank you for choosing [facility]! -> Thank you for your time and allowing us to care for you. We will check in on you over the next fourweeks to ensure you continue to recover and support your needs. In the meantime, please reach out to your PCP for any questions or concerns.Thank you for choosing [facility]! -> Thank you for your time and allowing us to care for you. We will check in on you over the next fourweeks to ensure you continue to recover and support your needs. In the meantime, please reach out to your PCP for any questions or concerns.Thank you for choosing [facility]! -> [facility]07-[facility] Telephone encounter Note* Telephone Encounter - Chavez - 02/17/2024 5:20 AM EDT Record ID: [id number] Patient name: Sharonda Flores Date: February 17, [...] [facility] It seems you [...] any questions or concerns.Thank you for choosing [facility]! -> Great! Now we are in a [...] noticed them? -> Worse To reach Nurse personnel generalist manager via phone, please call [ ](tel:[phone]) or toll-free at [ ](tel:[phone]). Thank you for your time and allowing us to care for you. We will check in on you over the next four weeks to ensure you continue to recover and support your needs. Inthe meantime, please reach out to your PCP for any questions or concerns.Thank you for choosing [facility]! -> Thank you for your time and allowing us to care for you. We will check in on you over the next fourweeks to ensure you continue to recover and support your needs. In the meantime, please reach out to your PCP for any questions or concerns.Thank you for choosing [facility]! -> [facility]07-20[facility] Miscellaneous Notes* Telephone Encounter - Chavez - 02/17/2024 5:20 AM EDT Record ID: [id number] Patient name: Sharonda Flores Date: February 17, [...] within [facility] It seems you [...] any questions or concerns.Thank you for choosing [facility]! -> Great! Now we are in a [...] noticed them? -> Worse To reach Nurse personnel generalist manager via phone, please call [ ](tel:[phone]) or toll-free at [ ](tel:[phone]). Thank you for your time and allowing us to care for you. We will check in on you over the next four weeks to ensure you continue to recover and support your needs. Inthe meantime, please reach out to your PCP for any questions or concerns.Thank you for choosing [facility]! -> Thank you for your time and allowing us to care for you. We will check in on you over the next fourweeks to ensure you continue to recover and support your needs. In the meantime, please reach out to your PCP for any questions or concerns.Thank you for choosing [facility]! -> Thank you for your time and allowing us to care for you. We will check in on you over the next fourweeks to ensure you continue to recover and support your needs. In the meantime, please reach out to your PCP for any questions or concerns.Thank you for choosing [facility]! -> documented in this encounterAshtabula [facility]07-20-2024 Miscellaneous Notes* Telephone Encounter - Chavez - 02/17/2024 5:20 AM EDT Record ID: [id number] Patient name: Sharonda Flores Date: February 17, [...] within [facility] It seems you [...] any questions or concerns.Thank you for choosing [facility]! -> Great! Now we are in a [...] noticed them? -> Worse To reach Nurse personnel generalist manager via phone, please call [ ](tel:[phone]) or toll-free at [ ](tel:[phone]). Thank you for your time and allowing us to care for you. We will check in on you over the next four weeks to ensure you continue to recover and support your needs. Inthe meantime, please reach out to your PCP for any questions or concerns.Thank you for choosing [facility]! -> Thank you for your time and allowing us to care for you. We will check in on you over the next fourweeks to ensure you continue to recover and support your needs. In the meantime, please reach out to your PCP for any questions or concerns.Thank you for choosing [facility]! -> documented in this encounterAshtabula [facility]07-20-2024 Telephone encounter Note * Telephone Encounter - Chavez - 02/17/2024 5:19 AM EDT Record ID: [id number] Patient name: Sharonda Flores Date: February 17, [...] within [facility]. It seems you [...] any questions or concerns.Thank you for choosing [facility]! -> Great! Now we are in a [...] noticed them? -> Worse To reach Nurse personnel generalist manager via phone, please call [ ](tel:[phone]) or toll-free at [ ](tel:[phone]). Thank you for your time and allowing us to care for you. We will check in on you over the next four weeks to ensure you continue to recover and support your needs. Inthe meantime, please reach out to your PCP for any questions or concerns.Thank you for choosing [facility]! -> [facility]07-20-2024 Miscellaneous Notes* Telephone Encounter - Chavez - 02/17/2024 5:19 AM EDT Record ID: [id number] Patient name: Sharonda Flores Date: February 17, [...] within two weeks of being discharged from [facility] to oversee your recovery. It seems you [...] any questions or concerns.Thank you for choosing [facility]! -> Great! Now we are in a [...] noticed them? -> Worse To reach Nurse personnel generalist manager via phone, please call [ ](tel:[phone]) or toll-free at [ ](tel:[phone]). Thank you for your time and allowing us to care for you. We will check in on you over the next four weeks to ensure you continue to recover and support your needs. Inthe meantime, please reach out to your PCP for any questions or concerns.Thank you for choosing [facility]! -> documented in this encounterAshtabula [facility] Hospital07-19-2024 Telephone encounter Note * Telephone Encounter - Chavez - 02/16/2024 10:00 PM EDT Record ID: [id number] Patient name: Sharonda Flores Date: February 16, [...] [facility]. It seems you [...] any questions or concerns.Thank you for choosing [facility]! -> Great! Now we are in a [...] since you first noticed them? -> Worse [facility]07-19-2024 Miscellaneous Notes* Telephone Encounter - Chavez - 02/16/2024 10:00 PM EDT Record ID: [id number] Patient name: Sharonda Flores Date: February 16, [...] [facility]. It seems you [...] any questions or concerns.Thank you for choosing [facility]! -> Great! Now we are in a [...] noticed them? -> Worse documented in this encounterAshtabula General Hospital07-19-2024 Telephone encounter Note * Telephone Encounter - Mackenzie Lozano RN - 02/16/2024 5:10 PM EDT Patient calling regarding pain medication following recent hospitalization, lung lobectomy. Conferenced to Dr. Nadege Tadeo Answering Service [ ] to speak with provider condominium property manager for Cardiovascular Surgery. Advised GO TO THE EMERGENCY ROOM OR CALL 911 IF: * You develop any new symptoms * Your condition worsens * You are concerned or anxious about your condition for any other reason. [facility]07-19-2024 Miscellaneous Notes* Telephone Encounter - Mackenzie Lozano RN - 02/16/2024 5:10 PM EDT Patient calling regarding pain medication following recent hospitalization, lung lobectomy. Conferenced to Dr. Nadege Tadeo Answering Service [ ] to speak with provider condominium property manager for Cardiovascular Surgery. Advised GO TO THE EMERGENCY ROOM OR CALL 911 IF: * You develop any new symptoms * Your condition worsens * You are concerned or anxious about your condition for any other reason. documented in this encounterAshtabula General Hospital07-18-2024 Telephone encounter Note * Telephone Encounter - Chavez - 02/15/2024 1:15 PM EDT Record ID: [id number] Patient name: Sharonda Flores Date: February 15, [...] [facility]. It seems you have a follow up appointment scheduled, are you able to attend? -> Yes [facility]07-18-2024 Miscellaneous Notes* Telephone Encounter - Sabiharadha - 02/15/2024 1:15 PM EDT Record ID: [id number] Patient name: Sharonda Flores Date: February 15, [...] [facility]. It seems you have a follow up appointment scheduled, are you able to attend? -> Yes documented in this encounterAshtabula General Hospital2024 NoteHNO ID: [id number] Author: ASHANTI DESAI CPhT Service: Pharmacy Author Type: Archery Equipment Hay Sorter Type: Plan of Care Filed: 02/14/2024 10:43 Note Text: PHARMACY BEDSIDE DELIVERY SERVICE Patient Name: Sharonda Flores The marked outpatient medications were Filled at: [place] and delivered to the patient's bedside to [...] or your Primary Care Provider. Ashanti Desai [facility] PAGER: Ashanti Desai [phone] 02/14/24 10:43 AM February 14, 2024 10:42 [facility]07-16-2024 NoteHNO ID: [id number] Author: ALLEN DURANT DO Service: General Surgery Author Type: Resident Type: Plan of Care Filed: 02/13/2024 13:42 Note Text: Plan of care CT removed at bedside. Patient tolerated will. Occlusive dressing placed over the top. Post-pull CXR ordered for 4:30pm Allen Durant DO February 13, 2024 1:42 [facility]07-16-2024 NoteHNO ID: [id number] Author: NADEGE TADEO MD Service: General Surgery Author Type: Physician Type: Progress Notes Filed: 02/13/2024 13:59 Note Text: Thoracic Surgery Progress Note SERVICE DATE: February 13, 2024 Thoracic Service Pager: For questions or concerns Mon-Fri 6a-5p please page [phone]. After 5pm and on Weekends and Holidays, please page [phone] if in ICU or [phone] if on RNF. Subjective SUBJECTIVE: Patient seen [...] 02/13/24 0659 02/13/24699 - 02/14/24 0659 Shift 5457-3104 6609-9614 2414-0320 24 Hour Total 6165-4517 1087-3943 0839-4043 24 Hour Total INTAKE PO 480 240 [...] with attending: Dr. Tadeo Follow up needs: [facility] SIGNATURE: Allen Durant DO PATIENT NAME: Sharonda Flores DATE: February 13, 2024 TIME: 1:38 PM Pager: [phone] Thoracic Service Pager: For questions or concerns Mon-Mon 6a-5p please page [phone]. After 5pm and on Weekends and Holidays, [...] complaining of pain around (more content not included)...[facility]07-15-2024 NoteHNO ID: [id number] Author: ASHANTI DESAI CPhT Service: Pharmacy Author Type: Archery Equipment Hay Sorter Type: Plan of Care Filed: 02/12/2024 16:39 Note Text: Pharmacy Discharge Medication Service: This patient has elected to receive their discharge prescriptions through the [facility] Bedside Prescription Delivery program. Please send all discharge medications to [facility] on 2nd floor. If patient is being discharged to a longterm facility, acute rehab, or inpatient facility they will no longer be eligible for bedside delivery. If you have any questions, please call us at [phone]. Thank you. Ashanti Desai CPhT 02/12/24 4:39 [facility]07-15-2024 NoteHNO ID: [id number] Author: PEGGY BILLS RN Service: Care Management [...] Current Advance Directive: Health Care Power of Coal Grader In Chart: Yes Up To Date and Valid: Yes Current Living Arrangements and Support Lives with: Alone Type of Residence: Private Residence (House) Support: Family members How do you manage to accomplish the following: Independent: Ambulation;Bathe/Shower;Meals/Meal Prep;Going to the bathroom;Dress;Medication Management;Transportation to appointments/community Current Services/Equipment Current Post-Acute Service(s): None Discharge Planning Patient Goal(s): Be able to go home [place] of Choice Explained: [place] of Choice Given: No Reason Not Given: [...] that he lives at home alone 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 Plan for pt to return home when medically stable. Per notes pt with chest tube intact. CM to follow for transitional needs. SIGNATURE: Peggy Bills RN PATIENT NAME: Sharonda Flores DATE: February 12, 2024 TIME: 3:34 PM CONTACT #: [phone] [facility] Hospital07-15-2024 Note HNO ID: [id number] Author: NADEGE TADEO MD Service: General Surgery Author Type: Physician Type: Progress Notes Filed: 02/12/2024 11:40 Note Text: Thoracic Surgery Progress Note SERVICE DATE: February 12, 2024 Thoracic Service Pager: For questions or concerns Mon-Mon 6a-5p please page [phone]. After 5pm and on Weekends and Holidays, please page [phone] if in ICU or [phone] if on [...] Date 02/11/24699 - 02/12/2465802/12/24699 - 02/13/2459 Shift 5123-7080 1710-8584 4519-7765 24 Hour Total 2425-5718 6904-4728 4182-2122 24 Hour Total INTAKE PO 440 440 [...] with attending: Dr. Tadeo Follow up needs: [facility] SIGNATURE: Allen Durant DO PATIENT NAME: Sharonda Flores DATE: February 12, 2024 TIME: 7:45 AM Pager: [phone] Thoracic Service Pager: For questions or concerns Mon-Fri 6a-5p please page [phone]. After 5pm and on Weekends and Holidays, [...] TIME OF SERVICE: 11:39 (more content not included)...[facility]07-14-2024 NoteHNO ID: [id number] Author: MARY JO KHAN MD Service: General [...] Date 02/10/24699 - 02/11/2465802/11/24699 - 02/12/2459 Shift 9441-1651 8460-3902 5121-6918 24 Hour Total 3695-2508 6839-0080 9285-4506 24 Hour Total INTAKE PO 450 300 200 950 240 240 PO 450 300 200 950 240 240 IV 1000 1000 Volume (mL) (NaCl 0.9% 1,000 mL iv bolus) 1000 1000 Shift Total 450 4532 777 5135 240 240 OUTPUT Urine 450 716 941 6270 Void (ml) 450 254 054 2245 Chest Tube 50 60 120 230 Chest Tube Output (Chest Tube Right Lateral Pleural) 50 60 120 230 # of BMs Number of BMs 0 x 0 x Shift Total 500 654 916 4601 Weight (kg) 82.7 82.7 77.9 77.9 77.9 [...] Self Care Discussed with attending: Dr. Khan condominium property manager for Dr. Tadeo Follow up needs: [facility] SIGNATURE: Hai Aguirre MD PATIENT NAME: Sharonda Flores DATE: February 11, 2024 TIME: 12:48 PM Pager: [phone] Thoracic Service Pager: For questions or concerns Mon-Fri 6a-5p please page [phone]. After 5pm and on Weekends and Holidays, please page [phone] if in ICU or [phone] if on RNF. See my note as well.[facility]07-14-2024 NoteHNO ID: [id number] Author: MARY JO KHAN MD Service: Thoracic Surgery Author Type: Physician Type: Progress Notes Filed: 02/11/2024 10:50 Note Text: Patient seen this AM on rounds with resident and bedside nurse. No air leak at rest. Data, cxr, and careplan reviewed. CXR looks good. A-improving P-OK 4200 today, tube in and on suction today as well.[facility]07-13-2024 NoteHNO ID: [id number] Author: SARA HICKS RPh Service: Pharmacy Author Type: Pharmacist Type: Plan of Care Filed: 02/12/2024 13:51 Note Text: PHARMACY MEDICATION REVIEW Patient Name: Sharonda Flores : 1955 Addendum: medication history reviewed by pharmacist 02/12/2024 Sara Hicks RPh The following medications were updated within the [employer]UE [employer]ING [employer]PER medication list: Medications ADDED to [employer] medication list Medications CHANGED on [employer]ING DIPPER medication list Medications REMOVED from [employer] medication list Additional comments: Verified medication information with e-scripts/dispense report and chart review. Confirmed medications with patient. Patient stated medication list is current. Patient stated not taking any additional medications or supplements. Required follow up actions for nursing: None The below information represents the best possible medication history: Yes Medication history completed by: Material Movers: Linnea Shah (Clinical Advisor) Source of history: Patient: Reliability of source: Appears reliable, clearly identified: Medication name, Medication dose, Medication route, and Medication frequency Medication nonadherence identified: No barriers noted Reconciliation completed: Yes Completed Patient interested in Bedside Delivery Services or using CC OP Pharmacy at discharge? Unable to assess Preferred outpatient pharmacy: [facility]/pharmacy #[id number] [place] [address] [address] [facility]. [phone] [place] [phone] Allergies: Penicillins Hives Prior to Admission Medications [...] as needed. Facility-Administered Medications: None Linnea Shah (Clinical Advisor)[id number] 02/10/2024[facility]07-13-2024 NoteHNO ID: [id number] Author: MARY JO KHAN MD Service: Thoracic Surgery Author Type: Physician Type: Progress Notes Filed: 02/10/2024 10:06 Note Text: Patient seen this AM on rounds for RORY. Explained what I could of surgery in response to questions. Data, cxr, and careplan reviewed with resident. A-stable P-as ordered.[facility]07-13-2024 NoteHNO ID: [id number] Author: MARY JO KHAN MD Service: General [...] 02/09/24699 - 02/10/2465802/10/24699 - 02/11/24 0659 Shift 5057-8832 9792-0418 6087-0725 24 Hour Total 0972-4729 3122-6410 9813-2889 24 Hour Total INTAKE IV 2200 2200 [...] Self Care Discussed with attending: Dr. Khan condominium property manager for Dr. Tadeo Follow up needs: [facility] SIGNATURE: Hai Aguirre MD PATIENT NAME: Sharonda Flores DATE: February 10, 2024 TIME: 10:00 AM Pager: [phone] Thoracic Service Pager: For questions or concerns Mon-Fri 6a-5p please page [phone]. After 5pm and on Weekends and Holidays, please page [phone] if in ICU or [phone] if on RNF. See my note as [facility]07-12-2024 NoteHNO ID: [id number] Author: TIMA HUDSON APRN.NARROW GAUGE BRAKEMAN Service: Nursing Author Type: Nurse Imaging Aide Type: Anesthesia Procedure Notes Filed: 02/09/2024 10:03 Note Text: ANESTHESIOLOGY PROCEDURE NOTE Airway General Information Procedure Start Time/Medication Administration: 02/09/2024 9:25 AM Procedure End Time: 02/09/2024 9:25 AM Patient location during procedure: OR Timeout Performed Pre-procedure: timeout performed Consent Obtained: Yes Patient identity confirmed: arm band Staffing NARROW GAUGE BRAKEMAN: Tima Hudson APRN.NARROW GAUGE BRAKEMAN Performed by: NARROW GAUGE BRAKEMAN Indications and Patient Condition Indications for airway [...] attempts at approach: 1 SIGNATURE: Tima Hudson APRN.NARROW GAUGE BRAKEMAN PATIENT NAME: Sharonda Flores DATE: February 09, 2024 TIME: 10:02 AM CSN: [id number] [facility] Center07-12-2024 NoteHNO ID: [id number] Author: TIMA HUDSON APRN.NARROW GAUGE BRAKEMAN Service: Nursing Author Type: Nurse Imaging Aide Type: Anesthesia Procedure Notes Filed: 02/09/2024 09:56 [...] February 09, 2024 TIME: 9:55 AM CSN: [id number] Parish Medical Center07-12-2024 NoteHNO ID: [id number] Author: TIMA HUDSON APRN.CRNA Service: Nursing Author Type: Nurse Imaging Aide Type: Anesthesia Procedure Notes Filed: 02/09/2024 09:51 Note Text: ANESTHESIOLOGY PROCEDURE NOTE Airway General Information Procedure Start Time/Medication Administration: 02/09/2024 9:08 AM Procedure End Time: 02/09/2024 9:08 AM Patient location during procedure: OR Timeout Performed Pre-procedure: timeout performed Consent Obtained: Yes Patient identity confirmed: arm band Staffing NARROW GAUGE BRAKEMAN: Tima Hudson APRN.NARROW GAUGE BRAKEMAN Performed by: JESSIE Indications and Patient Condition [...] February 09, 2024 TIME: 9:49 AM CSN: [id number] Parish Medical Center07-02-2024 Telephone encounter Note* Telephone Encounter - Joanna Nunez RN - 01/30/2024 12:46 PM EDT BETH PB 01/16/24. Routed medication to Herlinda White APRN to sign. [facility] [id number] Miscellaneous Notes* Telephone Encounter - Joanna Nunez RN - 01/30/2024 12:46 PM EDT BETH PB 01/16/24. Routed medication to Herlinda White APRN to sign. * Telephone Encounter - Selene Marinelli - 01/30/2024 12:41 PM EDT carvedilol (Coreg) 6.25 MG tablet [facility] documented in this encounterSWood County HospitalRmtkgq43-30-6267 Telephone encounter Note* Telephone Encounter - Selene Marinelli - 01/30/2024 12:41 PM EDT carvedilol (Coreg) 6.25 MG tablet [facility] [place] [facility] HospitalAyrhlw74-21-5407 Instructions* Patient Instructions* Fred Mckinney APRN.PAPER PROCESSING MACHINE HELPER - 01/29/2024 8:45 AM EDT [facility] Pre-Admission Patient Instruction You are scheduled for surgery (inpatient) located on the 2nd Floor on: 02/09/24 (your surgery dateis subject to change should there be emergencies prior to your scheduled OR time). Come in the Front Doors / Main Entrance of the hospital. No need to stop at front entrance registration. Please check in to the [facility] (2nd Floor) at: 6 AM Nothing [...] at home. Remove all make-up and nail micronesian beforeadmission. We need to check your circulation. [...] prescription has been sent for you to [facility]) If you have respiratory inhaler, please give yourself a treatment prior to come in If you are diabetic, please check you blood sugar prior to come in PLEASE COMPLETE THE SHOWER, FINISH YOUR DRINK AND PRE-OP MEDICATIONS NO LATER THAN 5:30 AM, THANKS. Please have your pre op labs drawn today. Please call office at [phone] or Hydrocapsule message me if you have additional questions, Thanks. Fred Mckinney APRN.CNP 01/29/24 documented in this encounterAshtabula [facility]07-01-2024 NoteHNO ID: [id number] Author: FRED MCKINNEY APRN.CNP Service: ? Author [...] for further concerns/questions CAD (more content not included)...[facility]07-01-2024 History of Present illness Narrative* Fred Mckinney APRN.PAPER PROCESSING MACHINE HELPER - 01/29/2024 8:10 AM EDT UPDATED HISTORY AND PHYSICAL EXAMINATION SERVICE DATE: 01/29/2024 SERVICE TIME: 8:56 AM The History and Physical (completed in the past 30 days) has been reviewed and the patient has beenexamined. The contents accurately reflect the patient's condition with the following additions or revisions since the H&P was completed. HPI: Per Dr. Tadoe on 01/08/24, Mr. Flores is a 68 [...] January 29, 2024 TIME: 8:52 AM PAGER: [phone] documented in this encounterAshtabula [facility] Hospital06-29-2024 Telephone encounter Note * Telephone Encounter - Stu Mcdermott MD - 01/27/2024 12:22 PM EDT Lisinopril 5mg daily refilled. [facility] [id number] Miscellaneous Notes* Telephone Encounter - Stu Mcdermott MD - 01/27/2024 12:22 PM EDT Lisinopril 5mg daily refilled. * Telephone Encounter - Karne George - 01/27/2024 11:04 AM EDT Name of caller requesting page:Sharonda Phone Number of caller: [phone] Facility requesting page: N/A Reason for Page: Medication refill Provider paged: Dr. Mcdermott Practice Name of paged provider: [facility] Page Placed to #: N/A Time Page was sent or provider contacted: 11:07P Page Content: Patient called in stating he is down to 1 tablet of Lisinopril 5MG and needs a refill. If needed, patient can be reached at [phone] documented in this encounterSWood County HospitalNivytp11-80-9894 Telephone encounter Note* Telephone Encounter - Karen George - 01/27/2024 11:04 AM EDT Name of caller requesting page:Sharonda Phone Number of caller: [phone] Facility requesting page: N/A Reason for Page: Medication refill Provider paged: Dr. Mcdermott Practice Name of paged provider: MG Page Placed to #: N/A Time Page was sent or provider contacted: 11:07P Page Content: Patient called in stating he is down to 1 tablet of Lisinopril 5MG and needs a refill. If needed, patient can be reached at [phone] [facility] HospitalVvrwff27-50-9538 Telephone encounter Note* Telephone Encounter - Conrado Yao MA - 01/19/2024 9:12 AM EDT Pt return my call and chose 02/09/24 for surgery. Office visit for presurgical instructions 01/29/24 9am. Pt will go for labs after appt. No fasting required. Bronchoscopy, right VATS RUL wedge resection frozen section, mediastinal lymph node dissection, cyro nerve block 02/09/24 arrival time 6am procedure time 8am @ [facility]. [facility]06-21-2024 Miscellaneous Notes* Telephone Encounter - Conrado Yao MA - 01/19/2024 9:12 AM EDT Pt return my call and chose 02/09/24 for surgery. Office visit for presurgical instructions 01/29/24 9am. Pt will go for labs after appt. No fasting required. Bronchoscopy, right VATS RUL wedge resection frozen section, mediastinal lymph node dissection, cyro nerve block 02/09/24 arrival time 6am procedure time 8am @ [facility]. * Telephone Encounter - Conrado Yao MA - 01/18/2024 2:16 PM EDT Left message requesting call back to discuss scheduling lung surgery with Dr. Tadeo. Currently schedule for 02/13/24, however there are sooner dates available. documented in this encounterAshtabula General Hospital06-20-2024 Telephone encounter Note * Telephone Encounter - Conrado Yao MA - 01/18/2024 2:16 PM EDT Left message requesting call back to discuss scheduling lung surgery with Dr. Tadeo. Currently schedule for 02/13/24, however there are sooner dates available. [facility]06-20-2024 Telephone encounter Note* Telephone Encounter - Conrado Yao MA - 01/18/2024 2:13 PM EDT Received cardiac clearance from Dr. Tineo. Form scanned into. [facility]06-20-2024 Miscellaneous Notes* Telephone Encounter - Conrado Yao MA - 01/18/2024 2:13 PM EDT Received cardiac clearance from Dr. Tineo. Form scanned into. * Telephone Encounter - Conrado Yao MA - 01/09/2024 3:30 PM EDT Outpatient Scheduler Dr. Tineo [phone] fax [phone] cardiac clearance request faxed on 01/09/24. Bronchoscopy, right VATS RUL wedge resection frozen section, mediastinal lymph node dissection, cyro nerve block 02/13/24 documented in this encounterAshtabula General Hospital06-18-2024 History of Present illness Narrative* Becky Tineo MD - 01/16/2024 12:45 PM EDT Images from the original note were not included. [facility] [address] [address] Dept: [phone] Dept Visit type: Established : 1955 Reason for Visit: Annual Exam and Cardiac Clearance Assessment and Plan 1. Mixed hyperlipidemia 2. Coronary artery disease involving kaw coronary artery of kaw heart without angina pectoris - ECG 12 [...] v-fib/ arrest CAD (coronary artery disease) Hyperlipidemia MD, old Sleep apnea Social History Tobacco Use [...] tests: Becky Tineo MD documented in this [facility]06-11-2024 Telephone encounter Note* Telephone Encounter - Conrado Yao MA - 01/09/2024 3:30 PM EDT Outpatient Scheduler Dr. Tineo [phone] fax [phone] cardiac clearance request faxed on 01/09/24. Bronchoscopy, right VATS RUL wedge resection frozen section, mediastinal lymph node dissection, cyro nerve block 02/13/24 [facility]06-10-2024 History of Present illness Narrative* Nadege Tadeo MD - 01/08/2024 1:00 PM EDT PRIMARY CARE PHYSICIAN: Tima Tello [address] [place] [address] Subjective Chief Complaint No chief complaint on [...] neoplasm of colon Coronary artery disease involving kaw coronary artery of kaw heart without angina pectoris Dr. Tineo Essential hypertension History of tobacco use Multiple lung nodules on CT 11/09/2023 PET scan ordered Psoriasis [facility] Thrombocytopenia (HCC) Tinnitus of both ears PAST [...] with rare clusters of benign respiratory-type epithelium. [place]/ 12/18/2023 PFTs on 12/06/2023 demonstrated an FEV1 [...] the patient will need clearance from his clinical informaticist for the procedure. Once cleared, we will [...] MD Cardiothoracic Surgery 01/08/24 documented in this encounterAshtabula General Hospital06-10-2024 NoteHNO ID: [id number] Author: NADGEE TADEO MD Service: ? Author Type: Physician Type: Progress Notes Filed: 01/08/2024 13:49 Note Text: PRIMARY CARE PHYSICIAN: Tima Tello [address] [place] [address] Subjective Chief Complaint No chief complaint on [...] neoplasm of colon Coronary artery disease involving kaw coronary artery of kaw heart without angina pectoris Dr. Tineo Essential hypertension History of tobacco use Multiple lung nodules on CT 11/09/2023 PET scan ordered Psoriasis [facility] Thrombocytopenia (HCC) Tinnitus of both ears PAST [...] neck supple. Right lower (more content not included)...[facility]06-[facility] Telephone encounter Note* Telephone Encounter - Shaylee Brito - 01/01/2024 12:14 PM EDT Message relayed to patient [facility] Work Phone: 1(229) 143-486806-03-2024 Miscellaneous Notes* Telephone Encounter - Shaylee Brito [...] to schedule when able. documented in this encounterAshtabula General Hospital06-03-2024 Telephone encounter Note * Telephone Encounter - Merary Quinones RN - 01/01/2024 10:08 AM EDT I called patient to notify him that it appears that Dr Nunez is waiting until patient consults with surgery to see what the surgeon's plan would be before proceeding with radiation. I had to leave a message on patient's voicemail. [facility]05-31-2024 Telephone encounter Note* Telephone Encounter - Shaylee Brito - 12/29/2023 3:23 PM EDT Patient called stating he is scheduled for 01/07 - consult for surgery. He states he is to start radiation after. Patient was concerned that Dr. Nunez thought he wasn't interested in radiation. Patient states he is and would like to schedule when able. [facility]05-31-2024 History of Present illness Narrative* Stephen Nunez [...] neoplasm of colon Coronary artery disease involving kaw coronary artery of kaw heart without angina pectoris Dr. Tineo Essential hypertension History of tobacco use Multiple lung nodules on CT 11/09/2023 PET scan ordered Psoriasis [facility] Thrombocytopenia (HCC) Tinnitus of both ears Prior [...] wheezing or shortness of breath CARDIOVASCULAR: h/o MD in 2012 s/p 4 stents. GI: normal [...] by: Stephen Nunez MD cc: Tima Tello [address] [place] [address] Charo Tsai [address] [place] [facility] [address] documented in this encounterAshtabula General Hospital05-31-2024 Nurse Note* Alba Limon RN - 12/29/2023 9:24 AM EDT Radiation Therapy - Nursing Note (Consult) PATIENT NAME: Sharonda Flores PATIENT December 29, 2023 [facility] FACILITY/LOCATION: [place] Chief Complaint: Lung nodule Reason for visit: Consult. Referring physician: Internal provider Dr Tello Subjective Data: no complaints Additional Data Do you want to see a Music Therapist? No Are you interested in information about fertility? No Status: Patient is male Stress Scale: On a scale of 0 to 10, what number best describes how much distress you have experienced in the past week?(0 being no distress and 10 being extreme distress) 0 Social work notified: Pt denied need to see psychotherapist social worker at this time. SIGNED by: Alba Limon RN [facility]05-31-2024 Nurse Note* Alba Limon RN - 12/29/2023 9:24 AM EDT Radiation Therapy - Nursing Note (Consult) PATIENT NAME: Sharonda Flores PATIENT December 29, 2023 [facility] FACILITY/LOCATION: [place] Chief Complaint: Lung nodule Reason for visit: Consult. Referring physician: Internal provider Dr Tello Subjective Data: no complaints Additional Data Do you want to see a Music Therapist? No Are you interested in information about fertility? No Status: Patient is male Stress Scale: On a scale of 0 to 10, what number best describes how much distress you have experienced in the past week?(0 being no distress and 10 being extreme distress) 0 Social work notified: Pt denied need to see psychotherapist social worker at this time. SIGNED by: Alba Limon RN documented in this encounterAshtabula General Hospital05-24-2024 Telephone encounter Note * Telephone Encounter - [...] Tsai APRN.CNP December 22, 2023 1:13 PM [facility]05-24-2024 Miscellaneous Notes* Telephone Encounter - Charo Tsai [...] 22, 2023 1:13 PM documented in this encounterAshtabula General Hospital05-17-2024 NoteHNO ID: [id number] Author: ANDREA BYRD APRN.NARROW GAUGE BRAKEMAN Service: Anesthesiology Author Type: Nurse Imaging Aide Type: Anesthesia Procedure Notes Filed: 12/15/2023 09:50 Note Text: ANESTHESIOLOGY PROCEDURE NOTE Airway General Information Procedure Start Time/Medication Administration: 12/15/2023 9:46 AM Procedure End Time: 12/15/2023 9:47 AM Patient location during procedure: OR Staffing Anesthesiologist: Antonio Mcclure MD NARROW GAUGE BRAKEMAN: Andrea Byrd APRN.NARROW GAUGE BRAKEMAN Performed by: JESSIE Indications and Patient Condition Indications for airway management: anesthesia Patient position: sniffing Method: asleep Final Airway Details Final airway type: supraglottic airway Number of attempts at approach: 1 Final Supraglottic Airway: i-gel Size 5 Seal Adequate: yes Airway not difficult SIGNATURE: Andrea Byrd APRN.CRNA PATIENT NAME: Sharonda Flores DATE: December 15, 2023 TIME: 9:49 AM CSN: [id number] NoteHNO ID: [id number] Author: ANDREA BYRD APRN.CRNA Service: Anesthesiology Author Type: Nurse Imaging Aide Type: Anesthesia Procedure Notes Filed: 12/15/2023 11:27 Note Text: ANESTHESIOLOGY PROCEDURE NOTE Airway General Information Procedure Start Time/Medication Administration: 12/15/2023 7:55 AM Procedure End Time: 12/15/2023 7:56 AM Patient location during procedure: OR Patient identity confirmed: arm band, care engineering team supervisor and patient Staffing Anesthesiologist: Antonio Mcclure MD NARROW GAUGE BRAKEMAN: Andrea Byrd APRN.NARROW GAUGE BRAKEMAN Performed by: JESSIE Indications and Patient Condition [...] December 15, 2023 TIME: 8:07 AM CSN: [id number] [facility] Name: Sharonda Flores Procedure Date: 12/15/2023 7:07 AM Date of : 1955 Admit Type: Ambulatory Age: 68 Room: OR 2A Gender: Male Attending MD: Tima Guardado MD, [id number] Procedure: Bronchoscopy Indications: Mediastinal staging of suspected [...] physician, the nurse, the anesthesiologist and the rn complex care in the procedure room. Mental Status Examination: [...] and no secretions. Robotic bronchoscopy utilizing the [email or web address] robot platform was performed. The CT scan [...] information, adjustments in targeting were made. A hmhq-eo-yusyax (TIL) spin was performed. Eiim-vl-uzwahf position was achieved at the end of [...] aspiration was also performed using an Olympus TripeeseiShot 22 gauge needle and sent for routine cytology. - The 11L (interlobar) node was 3.8 mm by EBUS, [address] and non-hy (more content not included)...[id number] History of Present illness Narrative* Modesta Rivera MD - 12/14/2023 9:17 AM EDT VIRTUAL VISIT PROGRESS NOTE This is a virtual visit using [employer] Call. It required patient- provider interaction [...] - Retired. 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 Had some exposure to asbestos in the past. + Cat at home Born in [place]. Lived in [place] the majority of his life. No recent travel history No flu shot + Covid shots x 2 HISTORY REVIEWED (electronic chart updated): PAST MEDICAL HISTORY Diagnosis Date Abdominal aortic aneurysm (AAA) without rupture (HCC) 3 x 3.1 cm 05/2021, repeat 1 year. Benign neoplasm of colon Coronary artery disease involving kaw coronary artery of kaw heart without angina pectoris Dr. Tineo Essential hypertension History of tobacco use Multiple lung nodules on CT 11/09/2023 PET scan ordered Psoriasis [facility] Thrombocytopenia (HCC) Tinnitus of both ears PAST [...] which included preparing to see the patient, iwhc-la-deku patient care, completing clinical documentation, obtaining and/or reviewing separately obtained history, performing a medically appropriate examination, counseling and educating the pat ient/family/caregiver, ordering medications, tests, or procedures, communicating with other HCPs (not separately reported), independently interpreting results (not separately reported), communicatingresults to the patient/family/caregiver, and care coordination (not separately reported) Modesta Rivera MD December 14, 2023 9:28 AM documented in this encounterAshtabula General Hospital05-15-2024 Miscellaneous Notes* Telephone Encounter - Charo Tsai [...] call back regarding results. documented in this encounterAshtabula General Hospital05-15-2024 Telephone encounter Note * Telephone Encounter - Charo Tsai APRN.CNP - 12/13/2023 9:00 AM EDT Attempted to call patient 12/13/2023, no answer. [facility] Work Phone: 1(615) 810-513005-15-2024 History of Present illness Narrative* Kya Ramirez, [...] PATIENT PRESENTS WITH AN IMPLANTABLE OR ATTACHED ARMATURE TESTER: No RADIOLOGY DEPARTMENT: CT; Exam(s) Completed: Chest PERIPHERAL IV DATA: Not applicable SIGNED BY: RT Lashawn(R) December 13, 2023 3:58 PM documented in this encounterAshtabula General Hospital05-14-2024 Telephone encounter Note * Telephone Encounter - Charo Tsai APRN.CNP - 12/12/2023 5:05 PM EDT Attempted to call patient, no answer. Charo Tsai APRN.CNP [facility]05-13-2024 Telephone encounter Note* Telephone Encounter - Brianna Salinas RN - 12/11/2023 3:34 PM EDT No result notes observed. If provider would please state results and call patient back. Thank you. Brianna Salinas RN [facility]05-13-2024 Telephone encounter Note* Telephone Encounter - Charo Tsai APRN.CNP - 12/11/2023 3:23 PM EDT Left message for pt to call back regarding results. [facility]05-10-2024 Instructions* Patient Instructions* Shaylee Ochoa LPN - [...] review all the medicines you take, even sgld-alk-jtwedaq medicines. As you get older, the way [...] have certain medical conditions. documented in this encounterAshtabula General Hospital05-10-2024 History of Present illness Narrative* Tima Tello [...] Lymph 1.00 - 4.00 k/uL 0.91 (L) [place]% % 9.5 Abs [place] <0.87 k/uL 0.44 Eosin% % 2.8 Abs [...] MG TABLET 4. Coronary artery disease involving kaw coronary artery of kaw heart without angina pectoris- ICD9: 414.01, ICD10: I25.10 Asymptomatic on medical management. F/u with cardiology. 5. Thrombocytopenia (HCC) - ICD9: 287.5, ICD10: D69.6 Stable. 6. Multiple lung nodules on CT - ICD9: 793.19, ICD10: R91.8 F/u with pulmonology for bronchoscopy and PET scan. 7. Tobacco use disorder - ICD9: 305.1, ICD10: F17.200 Quit in 2010. Tima Tello MD documented in this encounterAshtabula General Hospital05-08-2024 Procedure note* Rosana Sanchez RPFT - 12/06/2023 [...] DATE: December 06, 2023 TIME: 12:31 PM [facility]05-08-2024 Procedure note* Rosana Sanchez RPFT - 12/06/2023 [...] 2023 TIME: 12:31 PM documented in this encounterAshtabula General Hospital05-08-2024 History of Present illness Narrative* Rosana Sanchez RPFT - 12/06/2023 8:47 AM EDT PULM FUNCTION SMARTBLOCK: Provider: Charo Tsai APRN.PAPER PROCESSING MACHINE HELPER Assisting Tech: Rosana Sanchez RPFT Spirometry: 1 DLCO: 1 LV - Box: 1 6 MW: 1 documented in this encounterAshtabula General Hospital05-01-2024 Instructions* Patient Instructions* Rosana Villafuerte APRN.PAPER PROCESSING MACHINE HELPER - 11/29/2023 8:07 AM EDT PATIENT PREOPERATIVE INSTRUCTIONS Rene More MD has scheduled you for your procedure at this [facility]: [phone] --[address] [address]. Please check in on the1st floor at [...] Procedures: - YOU MUST HAVE A RESPONSIBLE RETAIL GENERAL MANAGER TAKE YOU HOME. A TOOL GRINDER OPERATOR SURFACE OR WASH DRILLER HELPER CANNOT BE MADE A RESPONSIBLE RETAIL GENERAL MANAGER. - We recommend that a responsible person [...] Advance Directive, please fax a copy to [phone] or email to for it to be [...] day. Rosana Villafuerte APRN.CNP documented in this encounterAshtabula General Hospital05-01-2024 History and physical note * Rosana Villafuerte [...] 110/82 07/11/2023 118/66 Coronary artery disease involving kaw coronary artery of kaw heart without angina pectoris Assessment: Denies any new or worsening cardiac symptoms. [facility] in [facility]22 per pt. Reports [...] Neoplasm of Colon Coronary Artery Disease Involving [place] Coronary Artery of [place] Heart Without Angina Pectoris Essential Hypertension Thrombocytopenia [...] COVID-19 original vaccine, age 12+ yr, monovalent (City [employer] - PURPLE TOP) Only the first 3 [...] loss, malaise or fevers. 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 Tineo Essential hypertension History of tobacco use Multiple lung nodules on CT 11/09/2023 PET scan ordered Psoriasis [facility] Thrombocytopenia (HCC) Tinnitus of both ears PAST [...] 396 QTC Calculation (Bazett) 411 Calculated P [place] 44 Calculated R [place] 17 Calculated T [place] 18 Impression NORMAL SINUS RHYTHM NORMAL ECG No results found for this or any previous visit (from the past 26018 hour(s)). Instructions Given to Patient: Instructions located in the after visit summary. Patient given verbal and written preop instructions and voices comprehension and compliance. SIGNATURE: Rosana Villafuerte APRN.CNP PATIENT NAME: Sharonda Flores DATE: November 29, 2023 TIME: 8:02 AM PAGER/CONTACT #: [facility]05-01-[facility]24 History and physical note* Rosana Villafuerte APRN.CNP [...] 110/82 07/11/2023 118/66 Coronary artery disease involving kaw coronary artery of kaw heart without angina pectoris Assessment: Denies any new or worsening cardiac symptoms. Follows clinical informaticist, Dr. Noman Vásquez, last OV in 2023 [...] Neoplasm of Colon Coronary Artery Disease Involving [place] Coronary Artery of [place] Heart Without Angina Pectoris Essential Hypertension Thrombocytopenia [...] COVID-19 original vaccine, age 12+ yr, monovalent (City [employer] - PURPLE TOP) Only the first 3 [...] loss, malaise or fevers. 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 Tineo Essential hypertension History of tobacco use Multiple lung nodules on CT 11/09/2023 PET scan ordered Psoriasis [facility] Thrombocytopenia (HCC) Tinnitus of both ears PAST [...] 396 QTC Calculation (Bazett) 411 Calculated P [place] 44 Calculated R [place] 17 Calculated T [place] 18 Impression NORMAL SINUS RHYTHM NORMAL ECG No results found for this or any previous visit (from the past 39921 hour(s)). Instructions Given to Patient: Instructions located in the after visit summary. Patient given verbal and written preop instructions and voices comprehension and compliance. SIGNATURE: Rosana Villafuerte APRN.CNP PATIENT NAME: Sharonda Flores DATE: November 29, 2023 TIME: 8:02 AM PAGER/CONTACT #: documented in this encounterAshtabula General Hospital04-26-2024 Telephone encounter Note * Telephone Encounter - Marilee Pride MA - 11/24/2023 1:08 PM EDT Order for PET scan, CT scan results and OV notes faxed to number provided. [facility]04-26-2024 Miscellaneous Notes* Telephone Encounter - Marilee Pride MA - 11/24/2023 1:08 PM EDT Order for PET scan, CT scan results and OV notes faxed to number provided. * Telephone Encounter - Brianna Valdez - 11/24/2023 12:05 PM EDT Serenity mercer [facility] is calling requesting a new order for the PET scan she states there is no DX code on current order and they also need office notes, and they also need the CT report .Please fax to [phone]. Patient is scheduled for Monday11/28/23 need these RAQUEL documented in this encounterAshtabula General Hospital04-26-2024 Telephone encounter Note * Telephone Encounter - Brianna Valdez - 11/24/2023 12:05 PM EDT Serenity from [facility] is calling requesting a new order for the PET scan she states there is no DX code on current order and they also need office notes, and they also need the CT report .Please fax to [phone]. Patient is scheduled for Monday11/28/23 need these RAQUEL [facility]04-22-2024 Telephone encounter Note* Telephone Encounter - Charo Tsai APRN.CNP - 11/20/2023 4:13 PM EDT Per scheduling Brianna ORDONEZ patient declined to schedule PET at [place], and requested to [facility]. The order has been faxed and I left the patient a message to call us when they get scheduled so we can get the results as they will not notify us when he is scheduled or when the results are available. Charo Tsai APRN.CNP [facility] Work Phone: 1(958) 966-742004-22-2024 Miscellaneous Notes* Telephone Encounter - Charo Tsai APRN.CNP - 11/20/2023 4:13 PM EDT Per scheduling Brianna ORDONEZ patient declined to schedule PET at [place], and requested to [facility]. The order has been faxed and I left the patient a message to call us when they get scheduled so we can get the results as they will not notify us when he is scheduled or when the results are available. Charo Tsai APRN.RENEE documented in this encounterAshtabula General Hospital04-22-2024 NoteHNO ID: [id number] Author: ?, ?, ? Service: ? Author [...] to have patient call in to follow upFitchburg General HospitalImujnxqn58-81-5458 NoteHNO ID: [id number] Author: ?, ?, ? Service: ? Author [...] 12/07 Needs EKG: Yes-12/[address]: Yes [facility] Bronchoscopy Protocol Chest CT-12/12 Does the pt need cardiac clearance? No Is he/she on anticoagulants/anti-plt therapy? No Diagnosis/Reason for Bronchoscopy: Growing RUL nodule Referred by: Quin Reviewed by: [facility]04-16-2024 Miscellaneous Notes* Telephone Encounter - Vianney Gruber - 11/14/2023 3:13 PM EDT First attempt at contacting patient, left to schedule * Telephone Encounter - Vianney Gruber - 11/14/2023 3:13 PM EDT Images from the original note were not included. Charo Tsai APRN.PAPER PROCESSING MACHINE HELPER [facility] [place] Scheduling Please schedule tests per location. PET at [place]. PFT and 6 minute walk at [place] location. Thank you Charo documented in this encounterAshtabula General Hospital04-15-2024 NoteHNO ID: [id number] Author: RENE MORE MD Service: ? Author [...] KIMBER More MD November 13, 2023 9:48 [facility]04-15-2024 NoteHNO ID: [id number] Author: RENE MORE MD Service: ? Author [...] you again. Omer More MD 11/13/2023 9:35 [facility]04-15-2024 History of Present illness Narrative* [...] 13, 2023 9:48 PM documented in this encounterAshtabula General Hospital04-15-2024 History of Present illness Narrative* Rene More [...] MD 11/13/2023 9:35 PM documented in this encounterAshtabula General Hospital04-12-2024 Miscellaneous Notes* Telephone Encounter - Charo Tsai APRN.CNP - 11/10/2023 5:08 PM EDT Patient updated on plan of care for PET-pt prefers [place] location, PFT can be done at [place] location, and robotic bronchoscopy patient prefers at [place] location if possible. Charo Tsai APRN.CNP * [...] 08, 2023 5:22 PM documented in this encounterAshtabula General Hospital04-08-2024 Instructions* Patient Instructions* Charo Tsai APRN.CNP - [...] you Charo Tsai CNP documented in this encounterAshtabula General Hospital04-08-2024 History of Present illness Narrative* Charo TsaiSESAR.PAPER PROCESSING MACHINE HELPER - 11/06/2023 8:30 AM EDT Images from [...] or hospitalizations. No recent respiratory infections/pneumonia. Saw clinical informaticist [address] Dr[address] Tineo at [facility]. MD 2011, cardiac arrest x 4. x4 stents. The patient does not require assistance with normal activities of daily living. Modified Medical Research [place] Dyspnea Scale (MMRC) I only get breathless [...] neoplasm of colon Coronary artery disease involving kaw coronary artery of kaw heart without angina pectoris Dr. Tineo Essential hypertension History of tobacco use Psoriasis [facility] Thrombocytopenia (HCC) Tinnitus of both ears Surgical [...] which included preparing to see the patient, nsbf-jc-rgjo patient care, completing clinical documentation, performing a medically appropriate examination, counseling and educating the patient/family/caregiver, ordering medications, tests, or p rocedures, communicating with other HCPs (not separately reported), independently interpreting results (not separately reported), communicating results to the patient/family/caregiver, and care coordination (not separately reported). documented in this encounterAshtabula General Hospital04-08-2024 History of Present illness Narrative* Kya Ramirez [...] PATIENT PRESENTS WITH AN IMPLANTABLE OR ATTACHED ARMATURE TESTER: No RADIOLOGY DEPARTMENT: CT; Exam(s) Completed: Chest PERIPHERAL IV DATA: Not applicable SIGNED BY: RT Lashawn(R) November 06, 2023 3:31 PM documented in this encounterAshtabula General Hospital11-14-2023 Miscellaneous Notes* Telephone Encounter - Alma Linares [...] 1 year to monitor. documented in this encounterAshtabula General Hospital11-14-2023 History of Present illness Narrative* Trisha Emanuel [...] 13, 2023 9:32 AM documented in this encounterAshtabula General Hospital05-06-2023 Telephone encounter Note * Telephone Encounter - Enrique Rogers MD - 12/03/2022 3:30 PM EDT Filled his meds, lisinopril and atorvastatin PGY5, Cardiovascular Fellow at 3:32 PM Pager: [phone] [facility] [id number] Miscellaneous Notes* Telephone Encounter - Enrique Rogers MD - 12/03/2022 3:30 PM EDT Filled his meds, lisinopril and atorvastatin PGY5, Cardiovascular Fellow at 3:32 PM Pager: [phone] documented in this [facility]05-06-2023 Telephone encounter Note* Telephone Encounter - Tameka Rollins - 12/03/2022 2:33 PM EDT Name of caller requesting page:Sharonda Phone Number of caller: [phone] Facility requesting page: N/a Reason for Page: Patient calling for urgent refill Provider paged: Dr. Rogers Practice Name of paged provider: MG Page Placed to #: N/a Time Page was sent or provider contacted: 2:39pm Page Content: Please call patient at [phone]; patient is in urgent need of a refill. [facility] HospitalReevgw23-21-4006 Miscellaneous Notes* Telephone Encounter - Tameka Rollins - 12/03/2022 2:33 PM EDT Name of caller requesting page:Sharonda Phone Number of caller: [phone] Facility requesting page: N/a Reason for Page: Patient calling for urgent refill Provider paged: Dr. Rogers Practice Name of paged provider: MG Page Placed to #: N/a Time Page was sent or provider contacted: 2:39pm Page Content: Please call patient at [phone]; patient is in urgent need of a refill. documented in this encounterSWood County HospitalSmakix19-58-5440 Miscellaneous Notes* Telephone Encounter - Shaylee Dickerson [...] discuss antiviral if interested. documented in this encounterAshtabula General Hospital05-05-2023 Instructions* Patient Instructions* Rosario Doty APRN.[facility] - 12/02/2022 10:23 AM EDT Rest, increase [...] breath, inability to swallow. documented in this encounterAshtabula General Hospital05-05-2023 History of Present illness Narrative* Rosario Doty APRN.CNP - 12/02/2022 10:22 AM EDT Subjective The history is provided by the patient. No speech language assistant was used. HPI Sharonda Flores is a [...] neoplasm of colon Coronary artery disease involving kaw coronary artery of kaw heart without angina pectoris Dr. Tineo Essential hypertension History of tobacco use Psoriasis [facility] Thrombocytopenia (HCC) Tinnitus of both ears I have confirmed and edited as necessary, the [facility] Review of Systems Constitutional: Negative for [...] evaluation. Rosario Doty APRN.CNP documented in this encounterAshtabula General Hospital04-04-2023 History of Present illness Narrative* Becky Tineo MD - 11/01/2022 1:15 PM EDT Images from the original note were not included. [facility] CARDIOLOGY [address] [facility] [id number] Dept: [phone] Dept Loc: [phone] Visit type: Established : 1955 Reason for Visit: Follow-up (2 year follow-up/) Assessment and Plan 1. Hyperlipidemia, unspecified hyperlipidemia type 2. Coronary artery disease involving kaw coronary artery of kaw heart without angina pectoris - ECG 12 [...] v-fib/ arrest CAD (coronary artery disease) Hyperlipidemia MD, old Sleep apnea Social History Tobacco Use [...] tests: Becky Tineo MD documented in this [facility]05-20-2022 Miscellaneous Notes* Telephone Encounter - Brianna [...] and exercise as able. [facility]* Telephone Encounter - Minoo Zaragoza [...] PCP. Joanna Awad LPN [facility] History of Present illness Narrative* Joanna Awad [...] PCP. Joanna Awad LPN [facility] History of Present illness Narrative* Tima Tello [...] ever needed nitro. Following up with [facility] for history of psoriasis. States he has [...] neoplasm of colon Coronary artery disease involving kaw coronary artery of kaw heart without angina pectoris Dr. Tineo Essential hypertension History of tobacco use Psoriasis [facility] Thrombocytopenia (HCC) Tinnitus of both ears Previous [...] Lymph 1.00 - 4.00 k/uL 0.92 (L) [place]% % 9.6 Abs [place] <0.87 k/uL 0.45 [place]% % 2.6 Abs [...] 6.9 ASSESSMENT/PLAN: 1. Coronary artery disease involving kaw coronary artery of kaw heart without angina pectoris- ICD9: 414.01, ICD10: [...] DIFFERENTIATION Tima Tello MD [facility] Diagnosis Coronary artery disease involving kaw coronary artery of kaw heart without angina pectoris- Primary Essential hypertension Unspecified essential hypertension Thrombocytopenia (HCC) Thrombocytopenia, unspecified Psoriasis Other psoriasis History of tobacco use Personal history of tobacco use, presenting hazards to health Screening for HIV (human immunodeficiency virus) Special screening examination for other specified viral diseases documented in this encounter [facility]* Diagnosis Essential hypertension- Primary Unspecified essential hypertension documented in this encounter [facility]* Diagnosis Mixed hyperlipidemia- Primary documented in this encounter [facility] noteNo assessment information availableWWood [facility] Hospital Work Phone: Evaluation note* Diagnosis Hyperlipidemia, unspecified hyperlipidemia type- Primary Coronary artery disease involving kaw coronary artery of kaw heart without angina pectoris Essential hypertension Unspecified essential hypertension [facility] Diagnosis URI with cough and congestion- Primary documented in this encounter [facility]* Diagnosis Hyperlipidemia, mixed- Primary Mixed hyperlipidemia documented in this encounter [facility]* Diagnosis Abdominal aortic aneurysm (AAA) without rupture, unspecified part (HCC) documented in this [facility]* Diagnosis Multiple lung nodules- Primary Other nonspecific abnormal finding of lung field Former tobacco use Personal history of tobacco use, presenting hazards to health Lung nodules Other nonspecific abnormal finding of lung field documented in this encounter [facility] note* Diagnosis Lung nodules Other nonspecific abnormal finding of lung field documented in this encounter [facility] note* Diagnosis Solid nodule of lung 6 mm to 8 mm in diameter- Primary documented in this encounter [facility] note* Diagnosis Lung nodule- Primary Solitary pulmonary nodule documented in this encounter [facility] note* Diagnosis Lung nodule- Primary Solitary pulmonary nodule documented in this encounter [facility] note* Diagnosis Pre-op evaluation- Primary Preoperative examination, unspecified Mixed hyperlipidemia Essential hypertension Unspecified essential hypertension Coronary artery disease involving kaw coronary artery of kaw heart without angina pectoris Abdominal aortic aneurysm (AAA) without rupture, unspecified part (HCC) Thrombocytopenia (HCC) Thrombocytopenia, unspecified At risk for sleep apnea Penicillin allergy Personal history of allergy to penicillin Personal history of allergy to penicillin Lung nodule Solitary pulmonary nodule * Assessment & Plan Note - Rosana Villafuerte, SESAR.PAPER PROCESSING MACHINE HELPER - 11/29/2023 8:27 AM EDT Associated Problem(s): [...] EDT Associated Problem(s): Coronary artery disease involving kaw coronary artery of kaw heart without angina pectoris Assessment: Denies any new or worsening cardiac symptoms. Follows clinical informaticist, Dr. Noman Vásquez, last OV in 2022 [...] 29.79 kg/m . [facility] Diagnosis Multiple lung nodules Other nonspecific abnormal finding of lung field Lung nodule Solitary pulmonary nodule [facility] Diagnosis Multiple lung nodules Other nonspecific abnormal finding of lung field Lung nodule Solitary pulmonary nodule [facility] Diagnosis Multiple lung nodules Other nonspecific abnormal finding of lung field Lung nodule Solitary pulmonary nodule [facility]* Diagnosis Medicare annual wellness visit, subsequent- Primary Routine general medical examination at a health care facility Essential hypertension Unspecified essential hypertension Mixed hyperlipidemia Coronary artery disease involving kaw coronary artery of kaw heart without angina pectoris Thrombocytopenia (HCC) Thrombocytopenia, unspecified Multiple lung nodules on CT Tobacco use disorder Lung nodule Solitary pulmonary nodule documented [facility]* Diagnosis Lung nodule Solitary pulmonary nodule Lung nodule Solitary pulmonary nodule documented [facility] this [facility]* Diagnosis Lung nodule- Primary Solitary pulmonary nodule Former tobacco use Personal history of tobacco use, presenting hazards to health Pre-operative respiratory examination documented [facility] this [facility]* Diagnosis Multiple lung nodules- Primary Other nonspecific abnormal finding of lung field Former tobacco use Personal history of tobacco use, presenting hazards to health documented in this encounter [facility]* Diagnosis Multiple lung nodules Other nonspecific abnormal finding of lung field Former tobacco use Personal history of tobacco use, presenting hazards to health documented in this [facility]* Diagnosis Nodule of upper lobe of right lung [R91.1]- Primary documented in this [facility]* Diagnosis Nodule of right lung- Primary Solitary pulmonary nodule Nodule of right lung Solitary pulmonary nodule documented [facility]* Diagnosis Nodule of upper lobe of right lung- Primary Preoperative testing Preoperative examination, unspecified Shortness of breath Nodule of right lung Solitary pulmonary nodule documented [facility]* Diagnosis Right upper lobe pulmonary nodule- Primary Coronary artery disease involving kaw coronary artery of kaw heart without angina pectoris H/O heart artery stent Postsurgical percutaneous transluminal coronary angioplasty status Essential hypertension Unspecified essential hypertension Pre-op exam Preoperative examination, unspecified Nodule of right lung Solitary pulmonary nodule documented [facility] this [facility]* Diagnosis Coronary artery disease involving kaw coronary artery of kaw heart without angina pectoris [facility] Diagnosis Mixed hyperlipidemia- Primary Coronary artery disease involving kaw coronary artery of kaw heart without angina pectoris Essential hypertension Unspecified essential hypertension [facility]* Diagnosis Acute post-operative pain- Primary History of thoracotomy Other postprocedural status Right upper lobe pulmonary nodule documented [facility] this [facility]* Diagnosis S/P lobectomy of lung- Primary Other postprocedural status Adenocarcinoma, lung, right (HCC) documented in this encounter [facility]* Diagnosis S/P lobectomy of lung Other postprocedural status documented [facility]* Diagnosis Cold extremity without peripheral vascular disease- Primary Other symptoms involving skin and integumentary tissues Other specified symptoms and signs involving the circulatory and respiratory systems Pain of toe of right foot Pain in limb Primary lung adenocarcinoma, right (HCC) S/P lobectomy of lung Other postprocedural status Coronary artery disease involving kaw coronary artery of kaw heart without angina pectoris Essential hypertension Unspecified essential hypertension Pain of toe of right foot Pain in limb documented [facility]* Diagnosis Pre-op evaluation- Primary Preoperative examination, unspecified Mixed hyperlipidemia Essential hypertension Unspecified essential hypertension Coronary artery disease involving kaw coronary artery of kaw heart without angina pectoris Abdominal aortic aneurysm [...] or lung (HCC) documented in this [facility]* Diagnosis Pre-op evaluation- Primary Preoperative examination, unspecified Mixed hyperlipidemia Essential hypertension Unspecified essential hypertension Coronary artery disease involving kaw coronary artery of kaw heart without angina pectoris Abdominal aortic aneurysm (AAA) without rupture, unspecified part (HCC) Thrombocytopenia (HCC) Thrombocytopenia, unspecified At risk for sleep apnea Penicillin allergy Personal history of allergy to penicillin Personal history of allergy to penicillin Pain of toe of right foot Pain in limb documented [facility]* Diagnosis Pre-op evaluation- Primary Preoperative examination, unspecified Mixed hyperlipidemia Essential hypertension Unspecified essential hypertension Coronary artery disease involving kaw coronary artery of kaw heart without angina pectoris Abdominal aortic aneurysm (AAA) without rupture, unspecified part (HCC) Thrombocytopenia (HCC) Thrombocytopenia, unspecified At risk for sleep apnea Penicillin allergy Personal history of allergy to penicillin Personal history of allergy to penicillin PAD (peripheral artery disease) (HCC)- Primary Peripheral vascular disease, unspecified Cold extremity without peripheral vascular disease Other symptoms involving skin and integumentary tissues [facility] Diagnosis Pre-op evaluation- Primary Preoperative examination, unspecified Mixed hyperlipidemia Essential hypertension Unspecified essential hypertension Coronary artery disease involving kaw coronary artery of kaw heart without angina pectoris Abdominal aortic aneurysm (AAA) without rupture, unspecified part (HCC) Thrombocytopenia (HCC) Thrombocytopenia, unspecified At risk for sleep apnea Penicillin allergy Personal history of allergy to penicillin Personal history of allergy to penicillin Cellulitis of left lower extremity- Primary Cellulitis and abscess of leg, except foot documented [facility]* Diagnosis Pre-op evaluation- Primary Preoperative examination, unspecified Mixed hyperlipidemia Essential hypertension Unspecified essential hypertension Coronary artery disease involving kaw coronary artery of kaw heart without angina pectoris Abdominal aortic aneurysm (AAA) without rupture, unspecified part (HCC) Thrombocytopenia (HCC) Thrombocytopenia, unspecified At risk for sleep apnea Penicillin allergy Personal history of allergy to penicillin Personal history of allergy to penicillin Left leg cellulitis- Primary Cellulitis and abscess of leg, except foot [facility]* Diagnosis Pre-op evaluation- Primary Preoperative examination, unspecified Mixed hyperlipidemia Essential hypertension Unspecified essential hypertension Coronary artery disease involving kaw coronary artery of kaw heart without angina pectoris Abdominal aortic aneurysm (AAA) without rupture, unspecified part (HCC) Thrombocytopenia (HCC) Thrombocytopenia, unspecified At risk for sleep apnea Penicillin allergy Personal history of allergy to penicillin Personal history of allergy to penicillin Left leg cellulitis- Primary Cellulitis and abscess of leg, except foot documented [facility]* Diagnosis Pre-op evaluation- Primary Preoperative examination, unspecified Mixed hyperlipidemia Essential hypertension Unspecified essential hypertension Coronary artery disease involving kaw coronary artery of kaw heart without angina pectoris Abdominal aortic aneurysm [...] Pulmonary air trapping documented [facility]* Diagnosis Pre-op evaluation- Primary Preoperative examination, unspecified Mixed hyperlipidemia Essential hypertension Unspecified essential hypertension Coronary artery disease involving kaw coronary artery of kaw heart without angina pectoris Abdominal aortic aneurysm (AAA) without rupture, unspecified part (HCC) Thrombocytopenia (HCC) Thrombocytopenia, unspecified At risk for sleep apnea Penicillin allergy Personal history of allergy to penicillin Personal history of allergy to penicillin Mixed hyperlipidemia- Primary Essential hypertension Unspecified essential hypertension PAD (peripheral artery disease) ([facility]) Peripheral vascular disease, unspecified Coronary artery disease involving kaw coronary artery of kaw heart without angina pectoris documented [facility] this encounter [facility]* Diagnosis Pre-op evaluation- Primary Preoperative examination, unspecified Mixed hyperlipidemia Essential hypertension Unspecified essential hypertension Coronary artery disease involving kaw coronary artery of kaw heart without angina pectoris Abdominal aortic aneurysm (AAA) without rupture, unspecified part (HCC) Thrombocytopenia (HCC) Thrombocytopenia, unspecified At risk for sleep apnea Penicillin allergy Personal history of allergy to penicillin Personal history of allergy to penicillin Hyperlipidemia, mixed- Primary Mixed hyperlipidemia documented in this encounter [facility]* Diagnosis 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)- Primary 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) Coronary artery disease involving kaw coronary artery of kaw heart without angina pectoris History of heart artery stent Left shoulder pain, unspecified chronicity Essential hypertension Unspecified essential hypertension Mixed hyperlipidemia PAD (peripheral artery disease) ([facility]) Unspecified peripheral vascular disease [facility] 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)- Primary 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) Coronary artery disease involving kaw coronary artery of kaw heart without angina pectoris History of heart artery stent Left shoulder pain, unspecified chronicity Essential hypertension Unspecified essential hypertension Mixed hyperlipidemia PAD (peripheral artery disease) (HCC) Unspecified peripheral vascular disease Chest pain, unspecified type [facility] Diagnosis 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) Chest pain, unspecified type [facility] Diagnosis 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) Abnormal stress echocardiogram 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) Abnormal stress echocardiogram [facility] Diagnosis 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)- Primary 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) Chronic total occlusion of coronary artery Chronic left shoulder pain Pain in joint, shoulder region S/P CABG (coronary artery bypass graft) Postsurgical aortocoronary bypass status documented in [facility]* Diagnosis Pre-op evaluation- Primary Preoperative examination, unspecified Mixed hyperlipidemia Essential hypertension Unspecified essential hypertension Coronary artery disease involving kaw coronary artery of kaw heart without angina pectoris Abdominal aortic aneurysm (AAA) without rupture, unspecified part (HCC) Thrombocytopenia (HCC) Thrombocytopenia, unspecified At risk for sleep apnea Penicillin allergy Personal history of allergy to penicillin Personal history of allergy to penicillin Pain- Primary Generalized pain documented in this encounter [facility] note* Diagnosis Pre-op evaluation- Primary Preoperative examination, unspecified Mixed hyperlipidemia Essential hypertension Unspecified essential hypertension Coronary artery disease involving kaw coronary artery of kaw heart without angina pectoris Abdominal aortic aneurysm [...] cervical intervertebral disc documented in this encounter [facility] note* Diagnosis Pre-op evaluation- Primary Preoperative examination, unspecified Mixed hyperlipidemia Essential hypertension Unspecified essential hypertension Coronary artery disease involving kaw coronary artery of kaw heart without angina pectoris Abdominal aortic aneurysm (AAA) without rupture, unspecified part (HCC) Thrombocytopenia (HCC) Thrombocytopenia, unspecified At risk for sleep apnea Penicillin allergy Personal history of allergy to penicillin Personal history of allergy to penicillin DDD (degenerative disc disease), cervical Degeneration of cervical intervertebral disc documented in this encounter [facility]* Diagnosis Pre-op evaluation- Primary Preoperative examination, unspecified Mixed hyperlipidemia Essential hypertension Unspecified essential hypertension Coronary artery disease involving kaw coronary artery of kaw heart without angina pectoris Abdominal aortic aneurysm (AAA) without rupture, unspecified part (HCC) Thrombocytopenia (HCC) Thrombocytopenia, unspecified At risk for sleep apnea Penicillin allergy Personal history of allergy to penicillin Personal history of allergy to penicillin Pain Generalized pain documented in this encounter [facility] note* Diagnosis S/P CABG (coronary artery bypass graft)- Primary 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) Essential hypertension Unspecified essential hypertension Atrial fibrillation, unspecified type (HCC) documented in this encounter [facility]* Diagnosis Coronary artery disease involving kaw coronary artery of kaw heart without angina pectoris documented in this [facility]* Diagnosis S/P CABG (coronary artery bypass graft)- Primary Postsurgical aortocoronary bypass status Essential hypertension Unspecified essential hypertension Atrial fibrillation, unspecified type (HCC) documented in this encounter [facility] note* Diagnosis Pre-op evaluation- Primary Preoperative examination, unspecified Mixed hyperlipidemia Essential hypertension Unspecified essential hypertension Coronary artery disease involving kaw coronary artery of kaw heart without angina pectoris Abdominal aortic aneurysm (AAA) without rupture, unspecified part (HCC) Thrombocytopenia (HCC) Thrombocytopenia, unspecified At risk for sleep apnea Penicillin allergy Personal history of allergy to penicillin Personal history of allergy to penicillin Malignant neoplasm of unspecified part of unspecified bronchus or lung (HCC)- Primary S/P lobectomy of lung Other postprocedural status documented in this [facility]* Diagnosis Pre-op evaluation- Primary Preoperative examination, unspecified Mixed hyperlipidemia Essential hypertension Unspecified essential hypertension Coronary artery disease involving kaw coronary artery of kaw heart without angina pectoris Abdominal aortic aneurysm (AAA) without rupture, unspecified part (HCC) Thrombocytopenia (HCC) Thrombocytopenia, unspecified At risk for sleep apnea Penicillin allergy Personal history of allergy to penicillin Personal history of allergy to penicillin Essential hypertension- Primary Unspecified essential hypertension Hyperlipidemia, mixed Mixed hyperlipidemia Coronary artery disease involving kaw coronary artery of kaw heart without angina pectoris PAD (peripheral artery disease) (HCC) Peripheral vascular disease, unspecified S/P lobectomy of lung Other postprocedural status S/P triple vessel bypass 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, right (HCC) documented in this encounter [facility] note* Diagnosis S/P CABG (coronary artery bypass graft)- Primary Postsurgical aortocoronary bypass status Essential hypertension Unspecified essential hypertension Atrial fibrillation, unspecified type (HCC) documented in this encounter [facility]* Diagnosis Pre-op evaluation- Primary Preoperative examination, unspecified Mixed hyperlipidemia Essential hypertension Unspecified essential hypertension Coronary artery disease involving kaw coronary artery of kaw heart without angina pectoris Abdominal aortic aneurysm [...] hazards to health [facility]* Diagnosis S/P CABG (coronary artery bypass graft)- Primary Postsurgical aortocoronary bypass status documented in [facility]* Diagnosis Coronary artery disease involving kaw coronary artery of kaw heart without angina pectoris- Primary Mixed hyperlipidemia Essential hypertension Unspecified essential hypertension S/P CABG (coronary artery bypass graft) Postsurgical aortocoronary bypass status documented in this encounter [facility]* Diagnosis Pre-op evaluation- Primary Preoperative examination, unspecified Mixed hyperlipidemia Essential hypertension Unspecified essential hypertension Coronary artery disease involving kaw coronary artery of kaw heart without angina pectoris Abdominal aortic aneurysm (AAA) without rupture, unspecified part Thrombocytopenia Thrombocytopenia, unspecified At risk for sleep apnea Penicillin allergy Personal history of allergy to penicillin Personal history of allergy to penicillin Malignant neoplasm of unspecified part of unspecified bronchus or lung (HCC) S/P lobectomy of lung Other postprocedural status [facility] Hospital note* Diagnosis Pre-op evaluation- Primary Preoperative examination, unspecified Mixed hyperlipidemia Essential hypertension Unspecified essential hypertension Coronary artery disease involving kaw coronary artery of kaw heart without angina pectoris Abdominal aortic aneurysm (AAA) without rupture, unspecified part Thrombocytopenia Thrombocytopenia, unspecified At risk for sleep apnea Penicillin allergy Personal history of allergy to penicillin Personal history of allergy to penicillin Primary lung adenocarcinoma, right (HCC)- Primary documented in this encounter [facility] note* Diagnosis Pre-op evaluation- Primary Preoperative examination, unspecified Mixed hyperlipidemia Essential hypertension Unspecified essential hypertension Coronary artery disease involving kaw coronary artery of kaw heart without angina pectoris Abdominal aortic aneurysm (AAA) without rupture, unspecified part Thrombocytopenia Thrombocytopenia, unspecified At risk for sleep apnea Penicillin allergy Personal history of allergy to penicillin Personal history of allergy to penicillin Chronic constipation- Primary Unspecified constipation Melena Blood in stool Generalized abdominal pain Abdominal pain, generalized documented in this encounter [facility] note* Diagnosis Pre-op evaluation- Primary Preoperative examination, unspecified Mixed hyperlipidemia Essential hypertension Unspecified essential hypertension Coronary artery disease involving kaw coronary artery of kaw heart without angina pectoris Abdominal aortic aneurysm (AAA) without rupture, unspecified part Thrombocytopenia Thrombocytopenia, unspecified At risk for sleep apnea Penicillin allergy Personal history of allergy to penicillin Personal history of allergy to penicillin Primary lung adenocarcinoma, right (HCC)- Primary documented [facility] encounter [facility]* Diagnosis Pre-op evaluation- Primary Preoperative examination, unspecified Mixed hyperlipidemia Essential hypertension Unspecified essential hypertension Coronary artery disease involving kaw coronary artery of kaw heart without angina pectoris Abdominal aortic aneurysm (AAA) without rupture, unspecified part Thrombocytopenia Thrombocytopenia, unspecified At risk for sleep apnea Penicillin allergy Personal history of allergy to penicillin Personal history of allergy to penicillin Nausea- Primary Nausea alone Chronic constipation Unspecified constipation Melena Blood in stool Heart burn Heartburn RUQ abdominal pain Abdominal pain, right upper quadrant documented in this encounter [facility]* Diagnosis Pre-op evaluation- Primary Preoperative examination, unspecified Mixed hyperlipidemia Essential hypertension Unspecified essential hypertension Coronary artery disease involving kaw coronary artery of kaw heart without angina pectoris Abdominal aortic aneurysm [...] hazards to health [facility] Diagnosis Pre-op evaluation- Primary Preoperative examination, unspecified Mixed hyperlipidemia Essential hypertension Unspecified essential hypertension Coronary artery disease involving kaw coronary artery of kaw heart without angina pectoris Abdominal aortic aneurysm (AAA) without rupture, unspecified part Thrombocytopenia Thrombocytopenia, unspecified At risk for sleep apnea Penicillin allergy Personal history of allergy to penicillin Personal history of allergy to penicillin Nausea Nausea alone RUQ abdominal pain Abdominal pain, right upper quadrant documented in this encounter [facility]* Diagnosis Pre-op evaluation- Primary Preoperative examination, unspecified Mixed hyperlipidemia Essential hypertension Unspecified essential hypertension Coronary artery disease involving kaw coronary artery of kaw heart without angina pectoris Abdominal aortic aneurysm (AAA) without rupture, unspecified part Thrombocytopenia Thrombocytopenia, unspecified At risk for sleep apnea Penicillin allergy Personal history of allergy to penicillin Personal history of allergy to penicillin Chronic constipation Unspecified constipation Melena Blood in stool Nausea Nausea alone Heart burn Heartburn documented in this encounter [facility]* Diagnosis Pre-op evaluation- Primary Preoperative examination, unspecified Mixed hyperlipidemia Essential hypertension Unspecified essential hypertension Coronary artery disease involving kaw coronary artery of kaw heart without angina pectoris Abdominal aortic aneurysm [...] Chronic post-thoracotomy pain documented in this encounter [facility] note* Diagnosis Pre-op evaluation- Primary Preoperative examination, unspecified Mixed hyperlipidemia Essential hypertension Unspecified essential hypertension Coronary artery disease involving kaw coronary artery of kaw heart without angina pectoris Abdominal aortic aneurysm (AAA) without rupture, unspecified part Thrombocytopenia Thrombocytopenia, unspecified At risk for sleep apnea Penicillin allergy Personal history of allergy to penicillin Personal history of allergy to penicillin Melena Blood in stool Generalized abdominal pain Abdominal pain, generalized documented in this encounter [facility] note* Diagnosis Coronary artery disease involving kaw coronary artery of kaw heart without angina pectoris- Primary [facility]* Diagnosis Pre-op evaluation- Primary Preoperative examination, unspecified Mixed hyperlipidemia Essential hypertension Unspecified essential hypertension Coronary artery disease involving kaw coronary artery of kaw heart without angina pectoris Abdominal aortic aneurysm (AAA) without rupture, unspecified part Thrombocytopenia Thrombocytopenia, unspecified At risk for sleep apnea Penicillin allergy Personal history of allergy to penicillin Personal history of allergy to penicillin RUQ pain- Primary Abdominal pain, right upper quadrant documented in this encounter [facility] note* Diagnosis Pre-op evaluation- Primary Preoperative examination, unspecified Mixed hyperlipidemia Essential hypertension Unspecified essential hypertension Coronary artery disease involving kaw coronary artery of kaw heart without angina pectoris Abdominal aortic aneurysm [...] aneurysm, without rupture [facility] Diagnostic Procedure Only (Routine) - Closed Specialty Diagnoses / Procedures Referred By Reyes t Referred To Contact US IMAGING Diagnoses Abdominal aortic aneurysm (AAA) without rupture, unspecified part (HCC) Procedures US ABD AORTA US RETROPERITONEAL REAL TIME W/IMAGE LIMITED Tima Tello MD [address] [place] [address] [place] [address] Referral ID Status Reason Start Date Expiration Date V isits Requested Visits Authorized [id number] Closed Auto-Generate d Referral 06/09/2023 07/08/2024 1 1 [facility] for referral (narrative)* Outpatient Procedure (Routine) - Pending Review Specialty Diagnoses / Procedures Referred By Contac t Referred To Contact [facility] Diagnoses Multiple lung nodules Procedures LUNG DIFFUSION CAPACITY (DLCO) DIFFUSING CAPACITY Charo Tsai APRN.CNP [address] [place] [address] [address] Referral ID Status Reason Start Date Expiration Date Visits Requested Visits Authorized [id number] Pending Review Auto-Generat ed Referral 11/06/2023 12/05/2024 1 1 * Outpatient Procedure (Routine) - Pending Review Specialty Diagnoses / Procedures Referred By Contac t Referred To [facility] [place] Diagnoses Multiple lung nodules Procedures LUNG VOLUMES Charo Tsai APRN.PAPER PROCESSING MACHINE HELPER [address] [place] [address] [place] [id number] Referral ID Status Reason Start Date Expiration Date Visits Requested Visits Authorized [id number] Pending Review Auto-Generat ed Referral 11/06/2023 12/05/2024 1 1 * Outpatient Procedure (Routine) - Pending Review Specialty Diagnoses / Procedures Referred By Contac t Referred To [facility] [place] Diagnoses Multiple lung nodules Procedures SIX MINUTE WALK CARDIOPULMONARY EXERCISE STRESS Charo Tsai APRN.CNP [address] [place] [address] Res[facility] [place] [address] [place] [address] Referral ID Status Reason Start Date Expiration Date Visits Requested Visits Authorized [id number] Pending Review Auto-Generat ed Referral 11/06/2023 12/05/2024 1 1 * Outpatient Procedure (Routine) - Pending Review Specialty Diagnoses / Procedures Referred By Contac t Referred To Contact [facility] Diagnoses Multiple lung nodules Procedures SPIROMETRY WITH DILATOR IF OBSTRUCTED BRNCDILAT RSPSE SPMTRY PRE&POST-BRNCDILAT ADMN Charo Tsai APRN.PAPER PROCESSING MACHINE HELPER [address] [place] [address] [facility] [address] [place] [address] Referral ID Status Reason Start Date Expiration Date Visits Requested Visits Authorized [id number] Pending Review Auto-Generat ed Referral 11/06/2023 12/05/2024 1 1 * Diagnostic Procedure Only (Routine) - Pending Review Specialty Diagnoses / Procedures Referred By Reyes grimes Referred To Contact MOLECULAR & FUNCTIONAL IMAGING Diagnoses Lung nodules Procedures NM PET/CT SKULL-THIGH INITIAL PET IMAGING CT ATTENUATION SKULL BASE MID-THIGH Charo Tsai APRN.PAPER PROCESSING MACHINE HELPER [address] [place] [address] Molecular & Functional Imaging [address] [place] [id number] Referral ID Status Reason Start Date Expiration Date Visits Requested Visits Authorized [id number] Pending Review Auto-Generat ed Referral 11/06/2023 12/05/2024 1 1 [facility] for referral (narrative)* Outpatient Procedure (Urgent) - New Request Specialty Diagnoses / Procedures Referred By Contac t Referred To Contact [facility] Diagnoses Cold extremity without peripheral vascular disease Other specified symptoms and signs involving the circulatory and respiratory systems Procedures PVR ANK PRESS SHIRLEY VAS LAB NON-INVAS PHYSIOLOGIC STD EXTREMITY ART 2 LEVEL Tima Tello MD [address] [place] [address] [facility] [place] [address] [place] [address] Referral ID Status Reason Start Date Expiration Date Visits Requested Visits Authorized [id number] New Request Auto-Generat ed Referral 03/11/2024 03/11/2025 1 1 * Diagnostic Procedure Only (Urgent) - Closed Specialty Diagnoses / Procedures Referred By Contac t Referred To Contact XR IMAGING Diagnoses Pain of toe of right foot Procedures XR FOOT GENERAL 3V AP/LAT/OBL RIGHT RADEX FOOT COMPLETE MINIMUM 3 VIEWS Tima Tello MD [address] [place] [address] [place] [address] Referral ID Status Reason Start Date Expiration Date V isits Requested Visits Authorized [id number] Closed Auto-Generate d Referral 03/11/2024 04/10/2025 1 1 [facility] for referral (narrative)* Diagnostic Procedure Only (Urgent) - Closed Specialty Diagnoses / Procedures Referred By Contac t Referred To Contact XR IMAGING Diagnoses Pain of toe of right foot Procedures XR FOOT GENERAL 3V AP/LAT/OBL RIGHT RADEX FOOT COMPLETE MINIMUM 3 VIEWS Tima Tello MD [address] [place] [address] [place] [address] Referral ID Status Reason Start Date Expiration Date V isits Requested Visits Authorized [id number] Closed Auto-Generate d Referral 03/11/2024 04/10/2025 1 1 [facility] for referral (narrative)* Diagnostic Procedure Only (Routine) - Authorized Specialty Diagnoses / Procedures Referred By Contac t Referred To Contact XR IMAGING Diagnoses Pain Procedures XR SHOULDER GENERAL 3V OR MORE AP/TRUE AP/OTHER LEFT RADEX SHOULDER COMPLETE MINIMUM 2 VIEWS Nan Ng PA-C [address] [place] [address] [place] [address] Referral ID Status Reason Start Date Expiration Date Visits Requested Visits Authorized [id number] Authorized Auto-Generat ed Referral 08/09/2024 09/08/2025 1 1 [facility] for referral (narrative)* Diagnostic Procedure Only (Routine) - Closed Specialty Diagnoses / Procedures Referred By Contac t Referred To Contact XR IMAGING Diagnoses DDD (degenerative disc disease), cervical Procedures XR CERV OTHER 4V AP/LAT/OBL RADEX SPINE CERVICAL 4 OR 5 VIEWS Nan Ng PA-C [address] [place] [address] [place] [address] Referral ID Status Reason Start Date Expiration Date V isits Requested Visits Authorized [id number] Closed Auto-Generate d Referral 08/12/2024 09/11/2025 1 1 [facility] for referral (narrative)* Diagnostic Procedure Only (Routine) - Closed Specialty Diagnoses / Procedures Referred By Contac t Referred To Contact XR IMAGING Diagnoses Pain Procedures XR SHOULDER GENERAL 3V OR MORE AP/TRUE AP/OTHER LEFT RADEX SHOULDER COMPLETE MINIMUM 2 VIEWS Nan Ng PA-C [address] [place] [address] [place] [address] Referral ID Status Reason Start Date Expiration Date V isits Requested Visits Authorized [id number] Closed Auto-Generate d Referral 08/09/2024 09/08/2025 1 1 [facility] for referral (narrative)No reason for referral [facility] Work Phone: Reason for visit Narrative* Diagnostic Procedure Only (Routine) - Closed Specialty Diagnoses / Procedures Referred By Contac t Referred To Contact XR IMAGING Diagnoses S/P lobectomy of lung Procedures XR CHEST 1V FRONTAL PORT RADIOLOGIC EXAM CHEST SINGLE VIEW Nadgee Tadeo MD [address] [place] [address] [place] [address] Referral ID Status Reason Start Date Expiration Date V isits Requested Visits Authorized [id number] Closed Auto-Generate d Referral 02/21/2024 03/15/2025 1 1 [facility] for visit Narrative* Diagnostic Procedure Only (Urgent) - Closed Specialty Diagnoses / Procedures Referred By Contac t Referred To Contact XR IMAGING Diagnoses Pain of toe of right foot Procedures XR FOOT GENERAL 3V AP/LAT/OBL RIGHT RADEX FOOT COMPLETE MINIMUM 3 VIEWS Tima Tello MD [address] [place] [address] [place] [address] Referral ID Status Reason Start Date Expiration Date V isits Requested Visits Authorized [id number] Closed Auto-Generate d Referral 03/11/2024 04/10/2025 1 1 [facility] for visit Narrative* Imaging (Routine) - Closed Specialty Diagnoses / Procedures Referred By Contac t Referred To Contact Cardiology Diagnoses 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) Chest pain, unspecified type Procedures Stress echocardiogram (TTE) exercise with contrast, bubble, strain, and 3D PRN MN ECHO TTHRC R-T 2D W/WO M-MODE COMPLETE REST&ST MN ECHO TTHRC R-T 2D W/WO M-MODE REST&STRS CONT ECG MN DOPPLER ECHOCARD PULSE WAVE W/SPECTRAL DISPLAY MN DOP ECHOCARD COLOR FLOW VELOCITY MAPPING MN CV STRS TST XERS&/OR RX CONT ECG W/O I&R MN CV STRS TST XERS&/OR RX CONT ECG TRCG ONLY MN CV STRS TST XERS&/OR RX CONT ECG I&R ONLY Horace Martinez, PROCESS SUPERVISOR - PAPER PROCESSING MACHINE HELPER [address] [place] [address] Phone: tel: fax: Referral ID Status Reason Start Date Expiration Date Visits Re quested Visits Authorized [id number] Closed 06/11/2024 06/11/2025 1 1 [facility] for visit Narrative* Auth/Cert (Routine) Specialty Diagnoses / Procedures [facility] To Contact Diagnoses 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 for visit Narrative* Auth/Cert (Routine) Specialty Diagnoses / Procedures Referred By [facility] t Referred To Contact Diagnoses 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) Procedures MN CABG W/ARTERIAL GRAFT THREE ARTERIAL GRAFTS MN ECHO TRANSESOPHAG R-T 2D W/PRB IMG ACQUISJ I&R CORONARY ARTERY BYPASS GRAFT TRANSESOPHAGEAL ECHOCARDIOGRAM Brooklynn Martinez, DO [address] [place] [address] Phone: tel: fax: Referral ID Status Reason Start Date Expiration Date Visits Re quested Visits Authorized [id number] 07/11/2024 1 1 [facility] for visit Narrative* Auth/Cert (Routine) Specialty Diagnoses / Procedures Referred By [facility] t Referred To Contact Diagnoses 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) Procedures MN CABG W/ARTERIAL GRAFT THREE ARTERIAL GRAFTS MN ECHO TRANSESOPHAG R-T 2D W/PRB IMG ACQUISJ I&R CORONARY ARTERY BYPASS GRAFT TRANSESOPHAGEAL ECHOCARDIOGRAM Brooklynn Martinez, DO [address] [place] [address] Phone: tel: fax: Referral ID Status Reason Start Date Expiration Date Visits Re quested Visits Authorized [id number] 07/11/2024 1 1 [facility] for visit Narrative* Diagnostic Procedure Only (Routine) - Closed Specialty Diagnoses / Procedures Referred By Contac t Referred To Contact XR IMAGING Diagnoses DDD (degenerative disc disease), cervical Procedures XR CERV OTHER 4V AP/LAT/OBL RADEX SPINE CERVICAL 4 OR 5 VIEWS Nan Ng PA-C [address] [place] [address] [place] [address] Referral ID Status Reason Start Date Expiration Date V isits Requested Visits Authorized [id number] Closed Auto-Generate d Referral 08/12/2024 09/11/2025 1 1 [facility] for visit Narrative* Diagnostic Procedure Only (Routine) - Closed Specialty Diagnoses / Procedures Referred By Contac t Referred To Contact XR IMAGING Diagnoses Pain Procedures XR SHOULDER GENERAL 3V OR MORE AP/TRUE AP/OTHER LEFT RADEX SHOULDER COMPLETE MINIMUM 2 VIEWS Nan Ng PA-C [address] [place] [address] [place] [address] Referral ID Status Reason Start Date Expiration Date V isits Requested Visits Authorized [id number] Closed Auto-Generate d Referral 08/09/2024 09/08/2025 1 1 [facility] for visit Narrative* Outpatient Procedure (Routine) - Closed Specialty Diagnoses / Procedures Referred By Contac t Referred To Contact [facility] Diagnoses Melena Nausea Heart burn Procedures EGD DIAGNOSTIC ESOPHAGOGASTRODUODENOSC OPY TRANSORAL DIAGNOSTIC Saray Marinelli APRN.PAPER PROCESSING MACHINE HELPER [address] [place] [address] Phone: tel: fax: [facility] [address] [place] [address] Referral ID Status Reason Start Date Expiration Date V isits Requested Visits Authorized [id number] Closed Auto-Generate d Referral 03/21/2025 03/21/2026 1 1 [facility] Summary Purpose Family History No Family History [...] Documents on File Type Date Recorded 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 ACP-Advance Directive ACP-Power of Coal Grader Latest Code Status on File Code Status Date Activated Date Inactivated Comments Full Code 07/30/2018 3:32 AM 07/30/2018 6:57 PM Documents on File Type Date Recorded 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 Advance Directive(s) 08/03/2021 6:50 AM Documents on File Type Date Recorded 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 Advance Directive(s) 02/09/2024 7:32 AM Documents on File Type Date Recorded 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 Advance Directive(s) 02/09/2024 7:32 AM [...] PM Assessments Diagnosis Coronary artery disease involving kaw coronary artery of kaw heart without angina pectoris Essential hypertension Unspecified [...] COMPUTED TOMOGRAPHY THORAX W/O CNTRST Charo Tsai, PROCESS SUPERVISOR.PAPER PROCESSING MACHINE HELPER [address] [place] [address] Ct [address] [facility] Referral ID Status Reason Start Date Expiration Date V isits Requested Visits Authorized [id number] Closed Auto-Generate d Referral 08/03/2023 09/01/2024 1 1 Specialty Diagnoses / Procedures Referred By Contac t Referred To Contact CT IMAGING Diagnoses Lung nodule Procedures CT CHEST WO IVCON DIAGNOSTIC COMPUTED TOMOGRAPHY THORAX W/O CNTRST Rene More [facility] [address] [facility] [place] [id number] Imaging [place] [address] Referral ID Status Reason Start Date Expiration Date Visits Requested Visits Authorized [id number] Pending Review Auto-Generat ed Referral 11/13/2023 12/12/2024 1 1 Specialty Diagnoses / Procedures Referred By Contac t Referred To Contact [facility] Diagnoses Lung nodule Procedures ECG COMPLETE ECG ROUTINE ECG W/LEAST 12 LDS W/I&R Rene More [facility] [address] [facility] [facility] [place] [address] [place] [address] Referral ID Status Reason Start Date Expiration Date Visits Requested Visits Authorized [id number] Pending Review Auto-Generat ed Referral 11/13/2023 11/12/2024 1 1 Specialty Diagnoses / Procedures Referred By Contac t Referred To Contact Diagnoses Pre-op evaluation Mixed hyperlipidemia Essential hypertension Coronary artery disease involving kaw coronary artery of kaw heart without angina pectoris Abdominal aortic aneurysm (AAA) without rupture, unspecified part (HCC) Thrombocytopenia (HCC) At risk for sleep apnea Penicillin allergy Personal history of allergy to penicillin Procedures CONSULT TO SLEEP MEDICINE - ADULT OFFICE/OUTPATIENT [facility] 60 MINUTES Rosana Villafuerte, PROCESS SUPERVISOR.PAPER PROCESSING MACHINE HELPER [address] [place] [address] Referral ID Status Reason Start Date Expiration Date Visits Requested Visits Authorized [id number] Authorized PCP Requested Referral 11/29/2023 11/28/2024 1 1 Specialty Diagnoses / Procedures Referred By Contac t Referred To Contact Radiation Oncology Diagnoses Multiple lung nodules Former tobacco use Procedures RAD/ONC CONSULT OFFICE/OUTPATIENT [facility] 60 MINUTES Charo Tsai, PROCESS SUPERVISOR.PAPER PROCESSING MACHINE HELPER [address] [place] [address] Referral ID Status Reason Start Date Expiration Date Visits Requested Visits Authorized [id number] Authorized PCP Requested Referral 12/22/2023 12/21/2024 1 1 Specialty Diagnoses / Procedures Referred By Contac t Referred To Contact Cardiothoracic Surgery Diagnoses Multiple lung nodules Former tobacco use Procedures CONSULT TO CARDIOTHORACIC SURGERY Charo Tsai, PROCESS SUPERVISOR.PAPER PROCESSING MACHINE HELPER [address] [place] [address] Referral ID Status Reason Start Date Expiration Date Visits Requested Visits Authorized [id number] Ref Not Required PCP Requested Referral 12/22/2023 12/21/2024 1 1 Specialty Diagnoses / Procedures Referred By Contac t Referred To Contact Diagnoses Acute post-operative pain History of thoracotomy Charlene Amaya PROCESS SUPERVISOR.PAPER PROCESSING MACHINE HELPER [address] [facility] [facility] [address] [address] [place] [address] Referral ID Status Reason Start Date Expiration Date Visits Re quested Visits Authorized [id number] Closed 1 1 Specialty Diagnoses / Procedures Referred By Contac t Referred To Contact Oncology Diagnoses Adenocarcinoma, lung, right (HCC) Procedures CONSULT TO ONCOLOGY OFFICE/OUTPATIENT [facility] 60 MINUTES Shaylee Woods, PROCESS SUPERVISOR.PAPER PROCESSING MACHINE HELPER [address] [place] [address] Referral ID Status Reason Start Date Expiration Date Visits Requested Visits Authorized [id number] Authorized PCP Requested Referral 02/29/2024 02/28/2025 1 1 Specialty Diagnoses / Procedures Referred By Contac t Referred To Contact CT IMAGING Diagnoses Malignant neoplasm of unspecified part of unspecified bronchus or lung (HCC) Procedures CT CHEST W IVCON DIAGNOSTIC COMPUTED TOMOGRAPHY THORAX W/CONTRAST Analy Dumont, DO [address] [place] [address] [place] [address] Referral ID Status Reason Start Date Expiration Date Visits Requested Visits Authorized [id number] Authorized Auto-Generat ed Referral 03/20/2024 04/19/2025 1 1 Specialty Diagnoses / Procedures Referred By Contac t Referred To Contact Vascular Medicine Diagnoses PAD (peripheral artery disease) (HCC) Cold extremity without peripheral vascular disease Procedures CONSULT TO VASCULAR MEDICINE OFFICE/OUTPATIENT [facility] MDM 60 MINUTES Tima Tello MD [address] [place] [address] Referral ID Status Reason Start Date Expiration Date Visits Requested Visits Authorized [id number] Authorized PCP Requested Referral 04/04/2024 04/04/2025 1 1 Specialty Diagnoses / Procedures Referred By Contac t Referred To Contact [facility] Diagnoses DDD (degenerative disc disease), cervical Chronic left shoulder pain Procedures CONSULT TO PHYSICAL THERAPY PHYSICAL THERAPY EVALUATION [facility] 45 MINS Nan Ng PA-C [address] [place] [address] [facility] [place] [address] [place] [address] Referral ID Status Reason Start Date Expiration Date Visits Requested Visits Authorized [id number] Authorized PCP Requested Referral Auto-Generate d Referral 08/12/2024 08/12/2025 99 99 Specialty Diagnoses / Procedures Referred By Contac t Referred To Contact XR IMAGING Diagnoses DDD (degenerative disc disease), cervical Procedures XR CERV OTHER 4V AP/LAT/OBL RADEX SPINE CERVICAL 4 OR 5 VIEWS Nan Ng PA-C [address] [place] [address] [place] [address] Referral ID Status Reason Start Date Expiration Date V isits Requested Visits Authorized [id number] Closed Auto-Generate d Referral 08/12/2024 09/11/2025 1 1 Additional Source Comments (unrecognized sect ion and content) No Status Records FoundNo Status Records FoundNo Status Records FoundNo Status Records FoundNo Status Records FoundNo Status Records FoundNo Status Records FoundNo Status Records Found INFORMATION SOURCE (unrecogn ized section and content) DATE CREATED AUTHOR 10/05/2018 [facility] ([place]) DATE CREATED AUTHOR AUTHOR'S ORGANIZ ATION 10/04/[address] [facility] DATE CREATED AUTHOR AUTHOR'S ORGANIZ ATION [facility]2023 [facility] DATE CREATED AUTHOR AUTHOR'S ORGANIZ ATION 12/29/2023 [facility] DATE CREATED AUTHOR AUTHOR'S ORGANIZ ATION 03/19/2024 [facility] DATE CREATED AUTHOR AUTHOR'S ORGANIZ ATION 04/15/2025 [facility] DATE CREATED AUTHOR AUTHOR'S ORGANIZ ATION 06/04/2025 [facility] DATE CREATED AUTHOR AUTHOR'S ORGANIZ ATION 06/12/2025 [facility] Source Comments (unrecognize d section and content) In the event this informatio n is protected by the Federal Confidentiality of Alcohol and Drug Abuse Patient Records regulations: The Federal rules restrict any use of the information to criminally investigate or prosecute any alcohol or drug abuse patient.[facility] the event this information is protected by the Federal Confidentiality of Alcohol and Drug Abuse Patient Records regulations: The Federal rules restrict any use of the information to criminally investigate or prosecute any alcohol or drug abuse patient.[facility] the event this information is protected by the Federal Confidentiality of Alcohol and Drug Abuse Patient Records regulations: The Federal rules restrict any use of the information to criminally investigate or prosecute any alcohol or drug abuse patient.[facility]In the event this information is protected by the Federal Confidentiality of Alcohol and Drug Abuse Patient Records regulations: The Federal rules restrict any use of the information to criminally investigate or prosecute any alcohol or drug abuse patient.[facility] HospitalIn the event this information is protected by the Federal Confidentiality of Alcohol and Drug Abuse Patient Records regulations: The Federal rules restrict any use of the information to criminally investigate or prosecute any alcohol or drug abuse patient.[facility] HospitalIn the event this information is protected by the Federal Confidentiality of Alcohol and Drug Abuse Patient Records regulations: The Federal rules restrict any use of the information to criminally investigate or prosecute any alcohol or drug abuse patient.[facility] HospitalIn the event this information is protected by the Federal Confidentiality of Alcohol and Drug Abuse Patient Records regulations: The Federal rules restrict any use of the information to criminally investigate or prosecute any alcohol or drug abuse patient.[facility] HospitalIn the event this information is protected by the Federal Confidentiality of Alcohol and Drug Abuse Patient Records regulations: The Federal rules restrict any use of the information to criminally investigate or prosecute any alcohol or drug abuse patient.[facility] HospitalIn the event this information is protected by the Federal Confidentiality of Alcohol and Drug Abuse Patient Records regulations: The Federal rules restrict any use of the information to criminally investigate or prosecute any alcohol or drug abuse patient.[facility] HospitalIn the event this information is protected by the Federal Confidentiality of Alcohol and Drug Abuse Patient Records regulations: The Federal rules restrict any use of the information to criminally investigate or prosecute any alcohol or drug abuse patient.[facility] HospitalIn the event this information is protected by the Federal Confidentiality of Alcohol and Drug Abuse Patient Records regulations: The Federal rules restrict any use of the information to criminally investigate or prosecute any alcohol or drug abuse patient.[facility] HospitalIn the event this information is protected by the Federal Confidentiality of Alcohol and Drug Abuse Patient Records regulations: The Federal rules restrict any use of the information to criminally investigate or prosecute any alcohol or drug abuse patient.[facility] HospitalIn the event this information is protected by the Federal Confidentiality of Alcohol and Drug Abuse Patient Records regulations: The Federal rules restrict any use of the information to criminally investigate or prosecute any alcohol or drug abuse patient.[facility] HospitalIn the event this information is protected by the Federal Confidentiality of Alcohol and Drug Abuse Patient Records regulations: The Federal rules restrict any use of the information to criminally investigate or prosecute any alcohol or drug abuse patient.[facility] HospitalIn the event this information is protected by the Federal Confidentiality of Alcohol and Drug Abuse Patient Records regulations: The Federal rules restrict any use of the information to criminally investigate or prosecute any alcohol or drug abuse patient.[facility] HospitalIn the event this information is protected by the Federal Confidentiality of Alcohol and Drug Abuse Patient Records regulations: The Federal rules restrict any use of the information to criminally investigate or prosecute any alcohol or drug abuse patient.[facility] HospitalIn the event this information is protected by the Federal Confidentiality of Alcohol and Drug Abuse Patient Records regulations: The Federal rules restrict any use of the information to criminally investigate or prosecute any alcohol or drug abuse patient.[facility] HospitalIn the event this information is protected by the Federal Confidentiality of Alcohol and Drug Abuse Patient Records regulations: The Federal rules restrict any use of the information to criminally investigate or prosecute any alcohol or drug abuse patient.[facility] HospitalIn the event this information is protected by the Federal Confidentiality of Alcohol and Drug Abuse Patient Records regulations: The Federal rules restrict any use of the information to criminally investigate or prosecute any alcohol or drug abuse patient.[facility] HospitalIn the event this information is protected by the Federal Confidentiality of Alcohol and Drug Abuse Patient Records regulations: The Federal rules restrict any use of the information to criminally investigate or prosecute any alcohol or drug abuse patient.[facility] HospitalIn the event this information is protected by the Federal Confidentiality of Alcohol and Drug Abuse Patient Records regulations: The Federal rules restrict any use of the information to criminally investigate or prosecute any alcohol or drug abuse patient.[facility] HospitalIn the event this information is protected by the Federal Confidentiality of Alcohol and Drug Abuse Patient Records regulations: The Federal rules restrict any use of the information to criminally investigate or prosecute any alcohol or drug abuse patient.[facility] HospitalIn the event this information is protected by the Federal Confidentiality of Alcohol and Drug Abuse Patient Records regulations: The Federal rules restrict any use of the information to criminally investigate or prosecute any alcohol or drug abuse patient.[facility] HospitalIn the event this information is protected by the Federal Confidentiality of Alcohol and Drug Abuse Patient Records regulations: The Federal rules restrict any use of the information to criminally investigate or prosecute any alcohol or drug abuse patient.[facility] HospitalIn the event this information is protected by the Federal Confidentiality of Alcohol and Drug Abuse Patient Records regulations: The Federal rules restrict any use of the information to criminally investigate or prosecute any alcohol or drug abuse patient.[facility] HospitalIn the event this information is protected by the Federal Confidentiality of Alcohol and Drug Abuse Patient Records regulations: The Federal rules restrict any use of the information to criminally investigate or prosecute any alcohol or drug abuse patient.[facility] HospitalIn the event this information is protected by the Federal Confidentiality of Alcohol and Drug Abuse Patient Records regulations: The Federal rules restrict any use of the information to criminally investigate or prosecute any alcohol or drug abuse patient.[facility] the event this information is protected by the Federal Confidentiality of Alcohol and Drug Abuse Patient Records regulations: The Federal rules restrict any use of the information to criminally investigate or prosecute any alcohol or drug abuse patient.[facility] HospitalIn the event this information is protected by the Federal Confidentiality of Alcohol and Drug Abuse Patient Records regulations: The Federal rules restrict any use of the information to criminally investigate or prosecute any alcohol or drug abuse patient.[facility] HospitalIn the event this information is protected by [...] or prosecute any alcohol or drug abuse patient.[facility] HospitalIn the event this information is protected by the Federal Confidentiality of Alcohol and Drug Abuse Patient Records regulations: The Federal rules restrict any use of the information to criminally investigate or prosecute any alcohol or drug abuse patient.[facility] HospitalIn the event this information is protected by the Federal Confidentiality of Alcohol and Drug Abuse Patient Records regulations: The Federal rules restrict any use of the information to criminally investigate or prosecute any alcohol or drug abuse patient.[facility] HospitalIn the event this information is protected by the Federal Confidentiality of Alcohol and Drug Abuse Patient Records regulations: The Federal rules restrict any use of the information to criminally investigate or prosecute any alcohol or drug abuse patient.[facility] HospitalIn the event this information is protected by the Federal Confidentiality of Alcohol and Drug Abuse Patient Records regulations: The Federal rules restrict any use of the information to criminally investigate or prosecute any alcohol or drug abuse patient.[facility] HospitalIn the event this information is protected by the Federal Confidentiality of Alcohol and Drug Abuse Patient Records regulations: The Federal rules restrict any use of the information to criminally investigate or prosecute any alcohol or drug abuse patient.[facility] HospitalIn the event this information is protected by the Federal Confidentiality of Alcohol and Drug Abuse Patient Records regulations: The Federal rules restrict any use of the information to criminally investigate or prosecute any alcohol or drug abuse patient.[facility] HospitalIn the event this information is protected by the Federal Confidentiality of Alcohol and Drug Abuse Patient Records regulations: The Federal rules restrict any use of the information to criminally investigate or prosecute any alcohol or drug abuse patient.[facility] HospitalIn the event this information is protected by the Federal Confidentiality of Alcohol and Drug Abuse Patient Records regulations: The Federal rules restrict any use of the information to criminally investigate or prosecute any alcohol or drug abuse patient.[facility] HospitalIn the event this information is protected by the Federal Confidentiality of Alcohol and Drug Abuse Patient Records regulations: The Federal rules restrict any use of the information to criminally investigate or prosecute any alcohol or drug abuse patient.[facility] HospitalIn the event this information is protected by the Federal Confidentiality of Alcohol and Drug Abuse Patient Records regulations: The Federal rules restrict any use of the information to criminally investigate or prosecute any alcohol or drug abuse patient.[facility] HospitalIn the event this information is protected by the Federal Confidentiality of Alcohol and Drug Abuse Patient Records regulations: The Federal rules restrict any use of the information to criminally investigate or prosecute any alcohol or drug abuse patient.[facility] HospitalIn the event this information is protected by the Federal Confidentiality of Alcohol and Drug Abuse Patient Records regulations: The Federal rules restrict any use of the information to criminally investigate or prosecute any alcohol or drug abuse patient.[facility] HospitalIn the event this information is protected by the Federal Confidentiality of Alcohol and Drug Abuse Patient Records regulations: The Federal rules restrict any use of the information to criminally investigate or prosecute any alcohol or drug abuse patient.[facility] HospitalIn the event this information is protected by the Federal Confidentiality of Alcohol and Drug Abuse Patient Records regulations: The Federal rules restrict any use of the information to criminally investigate or prosecute any alcohol or drug abuse patient.[facility] HospitalIn the event this information is protected by the Federal Confidentiality of Alcohol and Drug Abuse Patient Records regulations: The Federal rules restrict any use of the information to criminally investigate or prosecute any alcohol or drug abuse patient.[facility] HospitalIn the event this information is protected by the Federal Confidentiality of Alcohol and Drug Abuse Patient Records regulations: The Federal rules restrict any use of the information to criminally investigate or prosecute any alcohol or drug abuse patient.[facility] HospitalIn the event this information is protected by the Federal Confidentiality of Alcohol and Drug Abuse Patient Records regulations: The Federal rules restrict any use of the information to criminally investigate or prosecute any alcohol or drug abuse patient.[facility] HospitalIn the event this information is protected by the Federal Confidentiality of Alcohol and Drug Abuse Patient Records regulations: The Federal rules restrict any use of the information to criminally investigate or prosecute any alcohol or drug abuse patient.[facility] HospitalIn the event this information is protected by the Federal Confidentiality of Alcohol and Drug Abuse Patient Records regulations: The Federal rules restrict any use of the information to criminally investigate or prosecute any alcohol or drug abuse patient.[facility] HospitalIn the event this information is protected by the Federal Confidentiality of Alcohol and Drug Abuse Patient Records regulations: The Federal rules restrict any use of the information to criminally investigate or prosecute any alcohol or drug abuse patient.[facility] HospitalIn the event this information is protected by the Federal Confidentiality of Alcohol and Drug Abuse Patient Records regulations: The Federal rules restrict any use of the information to criminally investigate or prosecute any alcohol or drug abuse patient.[facility] HospitalIn the event this information is protected by the Federal Confidentiality of Alcohol and Drug Abuse Patient Records regulations: The Federal rules restrict any use of the information to criminally investigate or prosecute any alcohol or drug abuse patient.[facility] HospitalIn the event this information is protected by the Federal Confidentiality of Alcohol and Drug Abuse Patient Records regulations: The Federal rules restrict any use of the information to criminally investigate or prosecute any alcohol or drug abuse patient.[facility] HospitalIn the event this information is protected by the Federal Confidentiality of Alcohol and Drug Abuse Patient Records regulations: The Federal rules restrict any use of the information to criminally investigate or prosecute any alcohol or drug abuse patient.[facility] HospitalIn the event this information is protected by the Federal Confidentiality of Alcohol and Drug Abuse Patient Records regulations: The Federal rules restrict any use of the information to criminally investigate or prosecute any alcohol or drug abuse patient.[facility] HospitalIn the event this information is protected by the Federal Confidentiality of Alcohol and Drug Abuse Patient Records regulations: The Federal rules restrict any use of the information to criminally investigate or prosecute any alcohol or drug abuse patient.[facility] HospitalIn the event this information is protected by the Federal Confidentiality of Alcohol and Drug Abuse Patient Records regulations: The Federal rules restrict any use of the information to criminally investigate or prosecute any alcohol or drug abuse patient.[facility] HospitalIn the event this information is protected by the Federal Confidentiality of Alcohol and Drug Abuse Patient Records regulations: The Federal rules restrict any use of the information to criminally investigate or prosecute any alcohol or drug abuse patient.[facility] HospitalIn the event this information is protected by the Federal Confidentiality of Alcohol and Drug Abuse Patient Records regulations: The Federal rules restrict any use of the information to criminally investigate or prosecute any alcohol or drug abuse patient.[facility] HospitalIn the event this information is protected by the Federal Confidentiality of Alcohol and Drug Abuse Patient Records regulations: The Federal rules restrict any use of the information to criminally investigate or prosecute any alcohol or drug abuse patient.[facility] HospitalIn the event this information is protected by the Federal Confidentiality of Alcohol and Drug Abuse Patient Records regulations: The Federal rules restrict any use of the information to criminally investigate or prosecute any alcohol or drug abuse patient.[facility] HospitalIn the event this information is protected by the Federal Confidentiality of Alcohol and Drug Abuse Patient Records regulations: The Federal rules restrict any use of the information to criminally investigate or prosecute any alcohol or drug abuse patient.[facility] HospitalIn the event this information is protected by the Federal Confidentiality of Alcohol and Drug Abuse Patient Records regulations: The Federal rules restrict any use of the information to criminally investigate or prosecute any alcohol or drug abuse patient.[facility] HospitalIn the event this information is protected by the Federal Confidentiality of Alcohol and Drug Abuse Patient Records regulations: The Federal rules restrict any use of the information to criminally investigate or prosecute any alcohol or drug abuse patient.[facility] HospitalIn the event this information is protected by the Federal Confidentiality of Alcohol and Drug Abuse Patient Records regulations: The Federal rules restrict any use of the information to criminally investigate or prosecute any alcohol or drug abuse patient.[facility] HospitalIn the event this information is protected by the Federal Confidentiality of Alcohol and Drug Abuse Patient Records regulations: The Federal rules restrict any use of the information to criminally investigate or prosecute any alcohol or drug abuse patient.[facility] HospitalIn the event this information is protected by the Federal Confidentiality of Alcohol and Drug Abuse Patient Records regulations: The Federal rules restrict any use of the information to criminally investigate or prosecute any alcohol or drug abuse patient.[facility] HospitalIn the event this information is protected by the Federal Confidentiality of Alcohol and Drug Abuse Patient Records regulations: The Federal rules restrict any use of the information to criminally investigate or prosecute any alcohol or drug abuse patient.[facility] HospitalIn the event this information is protected by the Federal Confidentiality of Alcohol and Drug Abuse Patient Records regulations: The Federal rules restrict any use of the information to criminally investigate or prosecute any alcohol or drug abuse patient.[facility] HospitalIn the event this information is protected by the Federal Confidentiality of Alcohol and Drug Abuse Patient Records regulations: The Federal rules restrict any use of the information to criminally investigate or prosecute any alcohol or drug abuse patient.[facility] HospitalIn the event this information is protected by the Federal Confidentiality of Alcohol and Drug Abuse Patient Records regulations: The Federal rules restrict any use of the information to criminally investigate or prosecute any alcohol or drug abuse patient.[facility] HospitalIn the event this information is protected by the Federal Confidentiality of Alcohol and Drug Abuse Patient Records regulations: The Federal rules restrict any use of the information to criminally investigate or prosecute any alcohol or drug abuse patient.[facility] HospitalIn the event this information is protected by the Federal Confidentiality of Alcohol and Drug Abuse Patient Records regulations: The Federal rules restrict any use of the information to criminally investigate or prosecute any alcohol or drug abuse patient.[facility] HospitalIn the event this information is protected by the Federal Confidentiality of Alcohol and Drug Abuse Patient Records regulations: The Federal rules restrict any use of the information to criminally investigate or prosecute any alcohol or drug abuse patient.[facility] HospitalIn the event this information is protected by the Federal Confidentiality of Alcohol and Drug Abuse Patient Records regulations: The Federal rules restrict any use of the information to criminally investigate or prosecute any alcohol or drug abuse patient.[facility] HospitalIn the event this information is protected by the Federal Confidentiality of Alcohol and Drug Abuse Patient Records regulations: The Federal rules restrict any use of the information to criminally investigate or prosecute any alcohol or drug abuse patient.[facility] the event this information is protected by the Federal Confidentiality of Alcohol and Drug Abuse Patient Records regulations: The Federal rules restrict any use of the information to criminally investigate or prosecute any alcohol or drug abuse patient.[facility] HospitalIn the event this information is protected by the Federal Confidentiality of Alcohol and Drug Abuse Patient Records regulations: The Federal rules restrict any use of the information to criminally investigate or prosecute any alcohol or drug abuse patient.[facility] HospitalIn the event this information is protected by [...] or prosecute any alcohol or drug abuse patient.[facility] HospitalIn the event this information is protected by the Federal Confidentiality of Alcohol and Drug Abuse Patient Records regulations: The Federal rules restrict any use of the information to criminally investigate or prosecute any alcohol or drug abuse patient.[facility] HospitalIn the event this information is protected by the Federal Confidentiality of Alcohol and Drug Abuse Patient Records regulations: The Federal rules restrict any use of the information to criminally investigate or prosecute any alcohol or drug abuse patient.[facility] HospitalIn the event this information is protected by the Federal Confidentiality of Alcohol and Drug Abuse Patient Records regulations: The Federal rules restrict any use of the information to criminally investigate or prosecute any alcohol or drug abuse patient.[facility] HospitalIn the event this information is protected by the Federal Confidentiality of Alcohol and Drug Abuse Patient Records regulations: The Federal rules restrict any use of the information to criminally investigate or prosecute any alcohol or drug abuse patient.[facility] HospitalIn the event this information is protected by the Federal Confidentiality of Alcohol and Drug Abuse Patient Records regulations: The Federal rules restrict any use of the information to criminally investigate or prosecute any alcohol or drug abuse patient.[facility] Reason for Visit (unrecogniz ed section and content) Reason Comments Radiology CT Specialty Diagnoses / Procedures Referred By Reyes grimes Referred To Contact CT IMAGING Diagnoses Lung nodules Procedures CT LUNG FOLLOWUP WO IVCON DIAGNOSTIC COMPUTED TOMOGRAPHY THORAX W/O CNTRST Charo Tsai, PROCESS SUPERVISOR.PAPER PROCESSING MACHINE HELPER [id number] Imaging [place] [address] Referral ID Status Reason Start Date Expiration Date V isits Requested Visits Authorized [id number] Closed Auto-Generate d Referral 08/03/2023 09/01/2024 1 [...] TIME W/IMAGE LIMITED Tima Tello MD [address] [place] [address] [place] [address] Referral ID Status Reason Start Date Expiration Date V isits Requested Visits Authorized [id number] Closed Auto-Generate d Referral 06/09/2023 07/08/2024 1 1 Reason Comments Follow Up Reason Comments Bronchoscopy Scheduling Reason Comments Appointment Reason Comments Consult Reason Comments Spirometry Specialty Diagnoses / Procedures Referred By Contac t Referred To Contact [facility] Diagnoses Multiple lung nodules Procedures SPIROMETRY WITH DILATOR IF OBSTRUCTED BRNCDILAT RSPSE SPMTRY PRE&POST-BRNCDILAT ADMN Charo Tsai, SESAR.PAPER PROCESSING MACHINE HELPER [address] [place] [address] [address] Referral ID Status Reason Start Date Expiration Date V isits Requested Visits Authorized [id number] Closed Auto-Generate d Referral 11/06/2023 12/05/2024 1 1 Specialty Diagnoses / Procedures Referred By Contac t Referred To Contact [facility] Diagnoses Multiple lung nodules Procedures SIX MINUTE WALK CARDIOPULMONARY EXERCISE STRESS Charo Tsai, SESAR.PAPER PROCESSING MACHINE HELPER [address] [place] [address] [address] Referral ID Status Reason Start Date Expiration Date V isits Requested Visits Authorized [id number] Closed Auto-Generate d Referral 11/06/2023 12/05/2024 1 1 Specialty Diagnoses / Procedures Referred By Contac t Referred To Contact [facility] Diagnoses Multiple lung nodules Procedures LUNG VOLUMES Charo Tsai, PROCESS SUPERVISOR.PAPER PROCESSING MACHINE HELPER [address] [place] [address] [address] Referral ID Status Reason Start Date Expiration Date V isits Requested Visits Authorized [id number] Closed Auto-Generate d Referral 11/06/2023 12/05/2024 1 1 Specialty Diagnoses / Procedures Referred By Contac t Referred To Contact [facility] Diagnoses Multiple lung nodules Procedures LUNG DIFFUSION CAPACITY (DLCO) DIFFUSING CAPACITY Charo Tsai, SESAR.PAPER PROCESSING MACHINE HELPER [address] [place] [address] Respiratory [place] [address] [place] [address] Referral ID Status Reason Start Date Expiration Date V isits Requested Visits Authorized [id number] Closed Auto-Generate d Referral 11/06/2023 12/05/2024 1 1 Reason Comments Medicare Wellness Exam Reason Comments Radiology CT Specialty Diagnoses / Procedures Referred By Contac t Referred To Contact CT IMAGING Diagnoses Lung nodule Procedures CT CHEST WO IVCON DIAGNOSTIC COMPUTED TOMOGRAPHY THORAX W/O CNTRST Rene More MD [address] [place] [address] Ct Imaging [place] [address] Referral ID Status Reason Start Date Expiration Date V isits Requested Visits Authorized [id number] Closed Auto-Generate d Referral 11/13/2023 12/12/2024 1 1 Reason Comments Results Reason Comments Consult Specialty Diagnoses / Procedures Referred By Contac t Referred To Contact Radiation Oncology Diagnoses Multiple lung nodules Former tobacco use Procedures RAD/ONC CONSULT OFFICE/OUTPATIENT [facility] MDM 60 MINUTES Charo Tsai, SESAR.PAPER PROCESSING MACHINE HELPER [address] [place] [address] Referral ID Status Reason Start Date Expiration Date V isits Requested Visits Authorized [id number] Closed PCP Requested Referral 12/22/2023 12/21/2024 1 [...] NEW HIGH MDM 60 MINUTES Shaylee Woods, PROCESS SUPERVISOR.PAPER PROCESSING MACHINE HELPER 1 [facility] [address] [place] [address] Referral ID Status Reason Start Date Expiration Date V isits Requested Visits Authorized [id number] Closed PCP Requested Referral 02/29/2024 02/28/2025 1 1 Reason Comments Results Reason Comments Trauma Spider bite on left leg x 2 days Reason Comments Patient Question Reason Comments Follow Up Left lower extremity spider bite Reason Comments Follow Up Reason Comments fax referral to [facility] Reason Comments Lung Cancer Reason Onset Date Comments Shoulder Pain 06/08/2024 Reason Comments Follow Up 3 monthER f/u Monday , minor chest pain, left arm pain, bad taste. Went to [facility] Reason Comments Hospital Follow-up Chest Pain [...] W/CONTRAST Analy Dumont, DO [address] [place] [address] Phone: tel: fax: [place] [address] Referral ID Status Reason Start Date Expiration Date V isits Requested Visits Authorized [id number] Closed Auto-Generate d Referral 03/20/2024 04/19/2025 1 [...] W/CONTRAST Hakan Blackwell [address] [place] [address] Phone: tel: fax: [place] [address] Referral ID Status Reason Start Date Expiration Date V isits Requested Visits Authorized [id number] Closed Auto-Generate d Referral 03/09/2025 10/09/2025 1 1 Reason Comments Established Patient Reason Onset Date Comments Population Health Navigation Outreach 03/18/2025 [facility] [place] [facility]SA Reason Comments Constipation Rectal Problem Reason Onset Date Comments Results 03/20/2025 Reason Comments Rectal Problem blood in stool Specialty Diagnoses / Procedures Referred By Contac t Referred To Contact General Surgery Diagnoses Chronic constipation Melena Procedures OFFICE/OUTPATIENT [facility] 60 MINUTES Tima Tello MD [address] [place] [address] Phone: tel: fax: Referral ID Status Reason Start Date Expiration Date V isits Requested Visits Authorized [id number] Closed PCP Requested Referral 03/19/2025 03/19/2026 1 1 Reason Comments Established Patient 6 month follow up Specialty Diagnoses / Procedures Referred By Contac t Referred To Contact US IMAGING Diagnoses Nausea RUQ abdominal pain Procedures US ABD RIGHT UPPER QUADRANT US ABDOMINAL REAL TIME W/IMAGE LIMITED Saray Marinelli APRN.PAPER PROCESSING MACHINE HELPER [address] [place] [address] Phone: tel: fax: [place] [address] Referral ID Status Reason Start Date Expiration Date V isits Requested Visits Authorized [id number] Closed Auto-Generate d Referral 03/21/2025 04/20/2026 1 1 Specialty Diagnoses / Procedures Referred By Contac t Referred To Contact CT IMAGING Diagnoses Melena Generalized abdominal pain Procedures CT ABD/PEL W IVCON CT ABD & PELVIS W/CONTRAST Tima Tello MD [address] [place] [address] Phone: tel: fax: [place] [address] Referral ID Status Reason Start Date Expiration Date V isits Requested Visits Authorized [id number] Closed Auto-Generate d Referral 03/19/2025 04/18/2026 1 [...] MDM 60 MINUTES Tima Tello MD [address] [place] [address] Phone: tel: fax: Referral ID Status Reason Start Date Expiration Date V isits Requested Visits Authorized [id number] Closed PCP Requested Referral 04/11/2025 04/11/2026 1 1 Care Teams (unrecognized sec tion and content) Digester Hand Relationship Specialty Start Date End Date Tima Tello MD [address] [place] [address] PCP - General Family Practice 05/07/21 Digester Hand Relationship Specialty Start Date End Date Tima Tello MD [address] [place] [address] PCP - General Family Practice 05/07/21 Digester Hand Relationship Specialty Start Date End Date Tima Tello MD [address] [place] [address] PCP - General Family Practice 05/07/21 Digester Hand Relationship Specialty Start Date End Date Tima Tello MD [address] [place] [address] PCP - General Family Practice 05/07/21 Team Status: Active Member Role Status Dates Dr. Sebastián Doran MD Family Provider Active Dr. Sebastián Doran MD Primary Care Provider Active Team Status: Inactive Member Role Status Dates Dr. Sebastián Doran MD Primary Care Provider Active Dr. Jose Valderrama MD Attending Provider, Jer brgigs Active Digester Hand Relationship Specialty Start Date End Date Shayna Shah, DO [address] [phone] PCP - General 04/22/15 Digester Hand Relationship Specialty Start Date End Date Tima Tello MD [address] [place] [address] PCP - General Family Medicine 05/07/21 Digester Hand Relationship Specialty Start Date End Date Tima Tello MD [address] [place] [address] PCP - General Family Medicine 05/07/21 Digester Hand Relationship Specialty Start Date End Date Shayna Shah DO [address] [phone] PCP - General 04/22/15 Digester Hand Relationship Specialty Start Date End Date Shayna Shah DO [address] [phone] PCP - General 04/22/15 Digester Hand Relationship Specialty Start Date End Date Tima Tello MD [address] [place] [address] PCP - General Family Medicine 05/07/21 Digester Hand Relationship Specialty Start Date End Date Tima Tello MD [address] [place] [address] PCP - General Family Medicine 05/07/21 Digester Hand Relationship Specialty Start Date End Date Tima Tello MD [address] [place] [address] PCP - General Family Medicine 05/07/21 Digester Hand Relationship Specialty Start Date End Date Tima Tello MD [address] [facility] [place] [address] PCP - General Family Medicine 05/07/21 Digester Hand Relationship Specialty Start Date End Date Tima Tello MD [address] [place] [address] PCP - General Family Medicine 05/07/21 Digester Hand Relationship Specialty Start Date End Date Tima Tello MD [address] [facility] [place] [address] PCP - General Family Medicine 05/07/21 Digester Hand Relationship Specialty Start Date End Date Tima Tello MD [address] [place] [address] PCP - General Family Medicine 05/07/21 Digester Hand Relationship Specialty Start Date End Date Tima Tello MD [address] [facility] [place] [address] PCP - General Family Medicine 05/07/21 Digester Hand Relationship Specialty Start Date End Date Tima Tello MD [address] [facility] [place] [address] PCP - General Family Medicine 05/07/21 Digester Hand Relationship Specialty Start Date End Date Tima Tello MD [address] [facility] [place] [address] PCP - General Family Medicine 05/07/21 Digester Hand Relationship Specialty Start Date End Date Tima Tello MD [address] [facility] [place] [address] PCP - General Family Medicine 05/07/21 Digester Hand Relationship Specialty Start Date End Date Tima Tello MD [address] [facility] [place] [address] PCP - General Family Medicine 05/07/21 Digester Hand Relationship Specialty Start Date End Date Tima Tello MD [address] [facility] [place] [address] PCP - General Family Medicine 05/07/21 Digester Hand Relationship Specialty Start Date End Date Tima Tello MD [address] [facility] [place] [address] PCP - General Family Medicine 05/07/21 Digester Hand Relationship Specialty Start Date End Date Tima Tello MD [address] [facility] [place] [address] PCP - General Family Medicine 05/07/21 Digester Hand Relationship Specialty Start Date End Date Tima Tello MD [address] [facility] [place] [address] PCP - General Family Medicine 05/07/21 Stephen Nunez MD [address] [place] [address] Physician Radiation Oncology 12/28/23 Digester Hand Relationship Specialty Start Date End Date Tima Tello MD [address] [facility] [place] [address] PCP - General Family Medicine 05/07/21 Stephen Nunez MD [address] [facility] [place] [address] Physician Radiation Oncology 12/28/23 Digester Hand Relationship Specialty Start Date End Date Tima Tello MD [address] [place] [address] PCP - General Family Medicine 05/07/21 Stephen Nunez MD [address] [place] [address] Physician Radiation Oncology 12/28/23 Digester Hand Relationship Specialty Start Date End Date Tima Tello MD [address] [place] [address] PCP - General Family Medicine 05/07/21 Stephen Nunez MD [address] [place] [address] Physician Radiation Oncology 12/28/23 Digester Hand Relationship Specialty Start Date End Date Tima Tello MD [address] [place] [address] PCP - General Family Medicine 05/07/21 Stephen Nunez MD [address] [place] [address] Physician Radiation Oncology 12/28/23 Becky Tineo MD [address] [place] [address] Cardiology 01/09/24 Digester Hand Relationship Specialty Start Date End Date Tima Tello MD [address] [place] [address] PCP - General Family Medicine 05/07/21 Stephen Nunez MD [address] [place] [address] Physician Radiation Oncology 12/28/23 Becky Tineo MD [address] [facility] [address] [place] [address] Cardiology 01/09/24 Digester Hand Relationship Specialty Start Date End Date Tima Tello MD [facility] [place] [address] PCP - General Family Medicine 01/16/24 Digester Hand Relationship Specialty Start Date End Date Tima Tello MD [address] [place] [address] PCP - General Family Medicine 05/07/21 Stephen Nunez MD [address] [place] [address] Physician Radiation Oncology 12/28/23 Becky Tineo MD [address] [facility] [address] [place] [address] Cardiology 01/09/24 Digester Hand Relationship Specialty Start Date End Date Tima Tello MD [facility] [place] [address] PCP - General Family Medicine 01/16/24 Digester Hand Relationship Specialty Start Date End Date Tima Tello MD [facility] [place], [place] [address] PCP - General Family Medicine 01/16/24 Digester Hand Relationship Specialty Start Date End Date Tima Tello MD [address] [place] [address] PCP - General Family Medicine 05/07/21 Stephen Nunez MD [address] [place] [address] Physician Radiation Oncology 12/28/23 Becky Tineo MD [address] [place] [address] [address] [place] [address] Cardiology 01/09/24 ProviderChavez MD Rotary Driller Prospecting 02/14/24 02/27/24 Digester Hand Relationship Specialty Start Date End Date Tima Tello MD [address] [place], [place] 304921 PCP - General Family Medicine 05/07/21 Stephen Nunez MD [address] [place] [address] Physician Radiation Oncology 12/28/23 Becky Tineo MD [address] [place] [address] Cardiology 01/09/24 ProviderChavez MD Rotary Driller Prospecting 02/14/24 02/27/24 Digester Hand Relationship Specialty Start Date End Date Tima Tello MD [address] [place] [address] PCP - General Family Medicine 05/07/21 Stephen Nunez MD [address] [place] [address] Physician Radiation Oncology 12/28/23 Becky Tineo MD [address] [place] [address] Cardiology 01/09/24 Chavez Mcdowell MD Rotary Driller Prospecting 02/14/24 02/27/24 Digester Hand Relationship Specialty Start Date End Date Tima Tello MD [address] [facility] [place] [address] PCP - General Family Medicine 05/07/21 Stephen Nunez MD [address] [facility] [place] [address] Physician Radiation Oncology 12/28/23 Becky Tineo MD [address] [place] [place] [address] Cardiology 01/09/24 Chavez Mcdowell MD Rotary Driller Prospecting 02/14/24 02/27/24 Digester Hand Relationship Specialty Start Date End Date Tima Tello MD [address] [facility] [place] [address] PCP - General Family Medicine 05/07/21 Stephen Nnuez MD [address] [place] [address] Physician Radiation Oncology 12/28/23 Becky Tineo MD [address] [place] [address] Cardiology 01/09/24 Digester Hand Relationship Specialty Start Date End Date Tima Tello MD [address] [place] [address] PCP - General Family Medicine 05/07/21 Stephen Nunez MD [address] [place] [address] Physician Radiation Oncology 12/28/23 Becky Tineo MD [address] [place] [address] [address] [place] [address] Cardiology 01/09/24 Digester Hand Relationship Specialty Start Date End Date Tima Tello MD [address] [place] [address] PCP - General Family Medicine 05/07/21 Stephen Nunez MD [address] [place] [address] Physician Radiation Oncology 12/28/23 Becky Tineo MD [address] [place] [address] Cardiology 01/09/24 Charo Tsai APRN.CNP [address] [place] [address] Pulmonary Disease 03/04/24 Digester Hand Relationship Specialty Start Date End Date Tima Tello MD [address] [place] [address] PCP - General Family Medicine 05/07/21 Stephen Nunez MD [address] [place] [address] Physician Radiation Oncology 12/28/23 Becky Tineo MD [address] [place] [address] Cardiology 01/09/24 FowlerCharo, PROCESS SUPERVISOR.PAPER PROCESSING MACHINE HELPER [address] [place] [address] Pulmonary Disease 03/04/24 Digester Hand Relationship Specialty Start Date End Date Tima Tello MD [address] [place] [address] PCP - General Family Medicine 05/07/21 Stephen Nunez MD [address] [place] [address] Physician Radiation Oncology 12/28/23 Becky Tineo MD [address] [place] [address] Cardiology 01/09/24 FowlerCharo, PROCESS SUPERVISOR.PAPER PROCESSING MACHINE HELPER [address] [place] [address] Pulmonary Disease 03/04/24 Digester Hand Relationship Specialty Start Date End Date Tima Tello MD [address] [place] [address] PCP - General Family Medicine 05/07/21 Stephen Nunez MD [address] [place] [address] Physician Radiation Oncology 12/28/23 Becky Tineo MD [address] [place] [address] Cardiology 01/09/24 Charo Tsai APRN.PAPER PROCESSING MACHINE HELPER [address] [place] [address] Pulmonary Disease 03/04/24 Digester Hand Relationship Specialty Start Date End Date Tima Tello MD [address] [place] [address] PCP - General Family Medicine 05/07/21 Stephen Nunez MD [address] [place] [address] Physician Radiation Oncology 12/28/23 Becky Tineo MD [address] [place] [address] [address] [place] [address] Cardiology 01/09/24 Charo Tsai, SESAR.PAPER PROCESSING MACHINE HELPER [address] [place] [address] Pulmonary Disease 03/04/24 Digester Hand Relationship Specialty Start Date End Date Tima Tello MD [address] [place] [address] PCP - General Family Medicine 05/07/21 Stephen Nunez MD [address] [place] [address] Physician Radiation Oncology 12/28/23 Becky Tineo MD [address] [place] [address] Cardiology 01/09/24 Charo Tsai APRN.PAPER PROCESSING MACHINE HELPER [address] [place] [address] Pulmonary Disease 03/04/24 Digester Hand Relationship Specialty Start Date End Date Tima Tello MD [address] [place] [address] PCP - General Family Medicine 05/07/21 Stephen Nunez MD [address] [place] [address] Physician Radiation Oncology 12/28/23 Becky Tineo MD [address] [facility] [address] [place] [address] Cardiology 01/09/24 Charo Tsai APRN.PAPER PROCESSING MACHINE HELPER [address] [place] [address] Pulmonary Disease 03/04/24 Digester Hand Relationship Specialty Start Date End Date Tima Tello MD [address] [place] [address] PCP - General Family Medicine 05/07/21 Stephen Nunez MD [address] [place] [address] Physician Radiation Oncology 12/28/23 Becky Tineo MD [address] [place] [address] Cardiology 01/09/24 Charo Tsai APRN.PAPER PROCESSING MACHINE HELPER [address] [place] [address] Pulmonary Disease 03/04/24 Digester Hand Relationship Specialty Start Date End Date Tima Tello MD [address] [place] [address] PCP - General Family Medicine 05/07/21 Stephen Nunez MD [address] [place] [address] Physician Radiation Oncology 12/28/23 Becky Tineo MD [address] [place] [address] Cardiology 01/09/24 Charo Tsai PROCESS SUPERVISOR.PAPER PROCESSING MACHINE HELPER [address] [place] [address] Pulmonary Disease 03/04/24 Digester Hand Relationship Specialty Start Date End Date Tima Tello MD [address] [place] [address] PCP - General Family Medicine 05/07/21 Stephen Nunez MD [address] [place] [address] Physician Radiation Oncology 12/28/23 Becky Tineo MD [address] [place] [address] Cardiology 01/09/24 Charo Tsai PROCESS SUPERVISOR.PAPER PROCESSING MACHINE HELPER [address] [place] [address] Pulmonary Disease 03/04/24 Digester Hand Relationship Specialty Start Date End Date Tima Tello MD [address] [place] [address] PCP - General Family Medicine 05/07/21 Stephen Nunez MD [address] [place] [address] Physician Radiation Oncology 12/28/23 Becky Tineo MD [address] [place] [address] Cardiology 01/09/24 Charo Tsai APRN.PAPER PROCESSING MACHINE HELPER [address] [place] [address] Pulmonary Disease 03/04/24 Digester Hand Relationship Specialty Start Date End Date Tima Tello MD [address] [place] [address] PCP - General Family Medicine 01/16/24 Digester Hand Relationship Specialty Start Date End Date Tima Tello MD [address] [place] [address] PCP - General Family Medicine 01/16/24 Digester Hand Relationship Specialty Start Date End Date Tima Tello MD [address] [place] [address] PCP - General Family Medicine 01/16/24 Digester Hand Relationship Specialty Start Date End Date Tima Tello MD [address] [place] [address] PCP - General Family Medicine 01/16/24 Digester Hand Relationship Specialty Start Date End Date Tima Tello MD [address] [place] [address] PCP - General Family Medicine 01/16/24 Digester Hand Relationship Specialty Start Date End Date Tima Tello MD [address] [place] [address] PCP - General Family Medicine 01/16/24 Digester Hand Relationship Specialty Start Date End Date Tima Tello MD [address] [place] [address] PCP - General Family Medicine 01/16/24 Digester Hand Relationship Specialty Start Date End Date Tima Tello MD [address] [place] [address] PCP - General Family Medicine 01/16/24 Digester Hand Relationship Specialty Start Date End Date Tima Tello MD [address] [place] [address] PCP - General Family Medicine 01/16/24 Digester Hand Relationship Specialty Start Date End Date Tima Tello MD [address] [place] [address] PCP - General Family Medicine 01/16/24 Digester Hand Relationship Specialty Start Date End Date Tima Tello MD [address] [place] [address] PCP - General Family Medicine 01/16/24 Digester Hand Relationship Specialty Start Date End Date Tima Tello MD [address] [place] [address] PCP - General Family Medicine 01/16/24 Irma Grant, corporate communications specialistHigh Tension Tester Manager 07/26/24 Digester Hand Relationship Specialty Start Date End Date Tima Tello MD [address] [place] [address] PCP - General Family Medicine 01/16/24 Irma Grant, RN Registered Nurse High Tension Tester Manager 07/26/24 Digester Hand Relationship Specialty Start Date End Date Tima Tello MD [address] [place] [address] PCP - General Family Medicine 05/07/21 Stephen Nunez MD [address] [place] [address] Physician Radiation Oncology 12/28/23 Becky Tineo MD [address] [place] [address] Cardiology 01/09/24 Charo Tsai APRN.PAPER PROCESSING MACHINE HELPER [address] [place] [address] Pulmonary Disease 03/04/24 PodlogarAlejandra APRN.PAPER PROCESSING MACHINE HELPER [address] [place] [address] Rotary Driller Prospecting Family Medicine 07/06/24 Digester Hand Relationship Specialty Start Date End Date Tima Tello MD [address] [place] [address] PCP - General Family Medicine 05/07/21 Stephen Nunez MD [address] [place] [address] Physician Radiation Oncology 12/28/23 Becky Tineo MD [address] [place] [address] Cardiology 01/09/24 Charo Tsai SESAR.PAPER PROCESSING MACHINE HELPER [address] [place] [address] Pulmonary Disease 03/04/24 PodlogarAlejandra APRN.PAPER PROCESSING MACHINE HELPER [address] [place] [address] Rotary Driller Prospecting Family Medicine 07/06/24 Digester Hand Relationship Specialty Start Date End Date Tima Tello MD [address] [place] [address] PCP - General Family Medicine 05/07/21 Stephen Nunez MD [address] [place] [address] Physician Radiation Oncology 12/28/23 Becky Tineo MD [address] [place] [address] Cardiology 01/09/24 Charo Tsai APRN.PAPER PROCESSING MACHINE HELPER [address] [place] [address] Pulmonary Disease 03/04/24 PodlogarAlejandra APRN.PAPER PROCESSING MACHINE HELPER [address] [place] [address] Rotary Driller Prospecting [facility] 07/06/24 Digester Hand Relationship Specialty Start Date End Date Tima Tello MD [address] [place] [address] PCP - General Family Medicine 05/07/21 Stephen Nunez MD [address] [place] [address] Physician Radiation Oncology 12/28/23 Becky Tineo MD [address] [place] [address] Cardiology 01/09/24 Charo Tsai APRN.PAPER PROCESSING MACHINE HELPER [address] [place] [address] Pulmonary Disease 03/04/24 PodlogarAlejandra PROCESS SUPERVISOR.PAPER PROCESSING MACHINE HELPER [address] [place] [address] Rotary Driller Prospecting Family Medicine 07/06/24 Digester Hand Relationship Specialty Start Date End Date Tima Tello MD [address] [place] [address] PCP - General Family Medicine 01/16/24 Irma Grant, RN Registered Nurse High Tension Tester Manager 07/26/24 Digester Hand Relationship Specialty Start Date End Date Tima Tello MD [facility] [place], [place] 456241 PCP - General Family Medicine 01/16/24 Irma Grant, RN Registered Nurse High Tension Tester Manager 07/26/24 Digester Hand Relationship Specialty Start Date End Date Tima Tello MD [address] [place] [address] PCP - General Family Medicine 01/16/24 Irma Grant, RN Registered Nurse High Tension Tester Manager 07/26/24 Digester Hand Relationship Specialty Start Date End Date Tima Tello MD [address] [place] [address] PCP - General Family Medicine 05/07/21 Stephen Nunez MD [address] [place] [address] Physician Radiation Oncology 12/28/23 Becky Tineo MD [address] [place] [address] 300 [place] [address] Cardiology 01/09/24 Charo Tsai, PROCESS SUPERVISOR.PAPER PROCESSING MACHINE HELPER [address] [place] [address] Pulmonary Disease 03/04/24 Podlogar, Alejandra PROCESS SUPERVISOR.PAPER PROCESSING MACHINE HELPER [address] [place] [address] [facility] 07/[facility] Digester Hand Relationship Specialty Start Date End Date Tima Tello MD [address] [place] [address] PCP - General Family Medicine 05/07/21 Stephen Nunez MD [address] [place] [address] Physician Radiation Oncology 12/28/23 Becky Tineo MD [address] [place] [address] 300 [place] [address] Cardiology 01/09/24 Charo Tsai, PROCESS SUPERVISOR.PAPER PROCESSING MACHINE HELPER [address] [place] [address] Pulmonary Disease 03/04/24 Podlogar, Alejandra PROCESS SUPERVISOR.PAPER PROCESSING MACHINE HELPER [address] [place] [address] Rotary [facility]iller [facility] 07/06/24 Digester Hand Relationship Specialty Start Date End Date Tima Tello MD [address] [place] [address] PCP - General Family Medicine 05/07/21 Stephen Nunez MD [address] [place] [address] Physician Radiation Oncology 12/28/23 Becky Tineo MD [address] [place] [address] Cardiology 01/09/24 Charo Tsai APRN.PAPER PROCESSING MACHINE HELPER [address] [place] [address] Pulmonary Disease 03/04/24 Podlogar, SESAR Roberts.PAPER PROCESSING MACHINE HELPER [address] [place] [address] Rotary Driller Prospecting Family Medicine 07/06/24 Digester Hand Relationship Specialty Start Date End Date Tima Tello MD [address] [place] [address] PCP - General Family Medicine 05/07/21 Stephen Nunez MD [address] [place] [address] Physician Radiation Oncology 12/28/23 Becky Tineo MD [address] [place] [address] Cardiology 01/09/24 Charo Tsai APRN.PAPER PROCESSING MACHINE HELPER [address] [place] [address] Pulmonary Disease 03/04/24 PodlogarAlejandra APRN.PAPER PROCESSING MACHINE HELPER [address] [facility] [place] [address] Rotary Driller Prospecting Family Medicine 07/06/24 Digester Hand Relationship Specialty Start Date End Date Tima Tello MD [address] [facility], [place] 6325[address] PCP - General Family Medicine 05/07/21 Stephen Nunez MD [address] [place] [address] Physician Radiation Oncology 12/28/23 Becky Tineo MD [address] [place] [address] [phone] Cardiology 01/09/24 Charo Tsai PROCESS SUPERVISOR.PAPER PROCESSING MACHINE HELPER [address] [place] [address] Pulmonary Disease 03/04/24 Podlogar, SESAR Roberts.PAPER PROCESSING MACHINE HELPER [address] [place] [address] Rotary Driller Prospecting Family Medicine 07/06/24 Digester Hand Relationship Specialty Start Date End Date Tima Tello MD [address] [place] [address] PCP - General Family Medicine 01/16/24 Irma Grant, RN Registered Nurse High Tension Tester Manager 07/26/24 Digester Hand Relationship Specialty Start Date End Date Tima Tello MD [address] [place] [address] PCP - General Family Medicine 01/16/24 Irma Grant, RN Registered Nurse High Tension Tester Manager 07/26/24 Digester Hand Relationship Specialty Start Date End Date Tima Tello MD [address] [place] [address] 119131 PCP - General Family Medicine 01/16/24 Irma Grant, RN Registered Nurse High Tension Tester Manager 07/26/24 Digester Hand Relationship Specialty Start Date End Date Tima Tello MD [address] [place] [address] PCP - General Family Medicine 01/16/24 Irma Grant, RN Registered Nurse High Tension Tester Manager 07/26/24 Digester Hand Relationship Specialty Start Date End Date Tima Tello MD [address] [place] [address] 684231 PCP - General Family Medicine 01/16/24 Irma Grant, RN Registered Nurse High Tension Tester Manager 07/26/24 Digester Hand Relationship Specialty Start Date End Date Tima Tello MD [address] [place] [address] [phone] PCP - General Family Medicine 01/16/24 Irma Grant, RN Registered Nurse High Tension Tester Manager 07/26/24 Digester Hand Relationship Specialty Start Date End Date Tima Tello MD [address] [place] [address] 160341 PCP - General Family Medicine 05/07/21 Stephen Nunez MD [address] [place], [place] [phone] Physician Radiation Oncology 12/28/23 Becky Tineo MD [address] [place] [address] Cardiology 01/09/24 Charo Tsai APRN.PAPER PROCESSING MACHINE HELPER [address] [place] [address] Pulmonary Disease 03/04/24 Podlogar, SESAR Roberts.PAPER PROCESSING MACHINE HELPER [address] [facility] [place] [address] [facility] 07/06/24 Jenna Richardson APRN.PAPER PROCESSING MACHINE HELPER [address] [facility] [place], [place] 88[address]91 [facility] 01/09/25 Digester Hand Relationship Specialty Start Date End Date Tima Tello MD [address] [facility] [place], [place] 76[address] PCP - General Family Medicine 05/07/21 Stephen Nunez MD [address] [place] [address] Physician Radiation Oncology 12/28/23 Becky Tineo MD [address] [place] [address] Cardiology 01/09/24 Charo Tsai APRN.PAPER PROCESSING MACHINE HELPER [address] [place] [address] Pulmonary Disease 03/04/24 Podlogar, SESAR Roberts.PAPER PROCESSING MACHINE HELPER [address] [facility] [place] [address] [facility] 07/06/24 Jenna Richardson APRN.PAPER PROCESSING MACHINE HELPER [address] [facility] [place] [address] Rotary Driller Prospecting Family [facility] 01/09/25 Digester Hand Relationship Specialty Start Date End Date Tima Tello MD [address] [facility] [place] [address] [phone] PCP - General Family Medicine 05/07/21 Stephen Nunez MD [address] [facility] [place] [address] Physician Radiation Oncology 12/28/23 Becky Tineo MD [address] [place] [address] Cardiology 01/09/24 Charo Tsai PROCESS SUPERVISOR.PAPER PROCESSING MACHINE HELPER [address] [place] [address] Pulmonary Disease 03/04/24 PodlogarAlejandra, PROCESS SUPERVISOR.PAPER PROCESSING MACHINE HELPER [address] [facility] [place] [address] Rotary Driller [facility] 07/06/24 Jenna Richardson PROCESS SUPERVISOR.PAPER PROCESSING MACHINE HELPER [address] [place] [address] Rotary Driller Prospecting [facility] 01/09/25 Digester Hand Relationship Specialty Start Date End Date Tima Tello MD [address] [facility] [place] [address] PCP - General Family Medicine 05/07/21 Stephen Nunez MD [address] [place] [address] Physician Radiation Oncology 12/28/23 Becky Tineo MD [address] [place] [address] [address] [place] [address] Cardiology 01/09/24 Charo Tsai APRN.PAPER PROCESSING MACHINE HELPER [address] [place] [address] Pulmonary Disease 03/04/24 Podlogar, SESAR Roberts.PAPER PROCESSING MACHINE HELPER [address] [facility] [place] [address] [facility] 07/06/24 Jenna Richardson APRN.PAPER PROCESSING MACHINE HELPER [address] [place] [address] [facility] 01/09/25 Digester Hand Relationship Specialty Start Date End Date Tima Tello MD [address] [facility] [place] [address] PCP - General Family Medicine 05/07/21 Stephen Nunez MD [address] [place] [address] Physician Radiation Oncology 12/28/23 Becky Tineo MD [address] [place] [address] 300 [place] [address] Cardiology 01/09/24 Charo Tsai APRN.PAPER PROCESSING MACHINE HELPER [address] [place] [address] Pulmonary Disease 03/04/24 Podlogar, SESAR Roberts.PAPER PROCESSING MACHINE HELPER [address] [facility] [place] [address] [facility] 07/06/24 Jenna Richardson APRN.PAPER PROCESSING MACHINE HELPER [address] [place] [address] Rotary Driller Prospecting [facility] 01/09/25 Digester Hand Relationship Specialty Start Date End Date Tima Tello MD [address] [facility] [place] [address] PCP - General Family Medicine 05/07/21 Stephen Nunez MD [address] [place] [place] [address] Physician Radiation Oncology 12/28/23 Bceky Tineo MD [address] [place] [address] [phone] Cardiology 01/09/24 Charo Tsai, PROCESS SUPERVISOR.PAPER PROCESSING MACHINE HELPER [address] [place] [address] Pulmonary Disease 03/04/24 PodlogarAlejandra PROCESS SUPERVISOR.PAPER PROCESSING MACHINE HELPER [address] [facility] [place] [address] [facility] Family [facility] 07/06/24 Jenna Richardson, PROCESS SUPERVISOR.PAPER PROCESSING MACHINE HELPER [address] [place] [address] [facility] 01/09/25 Digester Hand Relationship Specialty Start Date End Date Tima Tello MD [address] [place] [address] PCP - General Family Medicine 05/07/21 Stephen Nunez MD [address] [place] [address] Physician Radiation Oncology 12/28/23 Becky Tineo MD [address] [place] [address] [phone] Cardiology 01/09/24 Charo Tsai, PROCESS SUPERVISOR.PAPER PROCESSING MACHINE HELPER [address] [place], [place] [phone] Pulmonary Disease 03/04/24 PodlogarAlejandra PROCESS SUPERVISOR.PAPER PROCESSING MACHINE HELPER [address] [place], [place] [id number] Rotary Driller Prospecting [facility] 07/06/24 Jenna Richardson, PROCESS SUPERVISOR.PAPER PROCESSING MACHINE HELPER [address] [place], [place] [phone] [facility] 01/09/25 Team Status: Active Member Role/Relationship Status [...] March 12, 2025 End: March 12, 2025 Digester Hand Relationship Specialty Start Date End Date Tima Tello MD [address] [place], [place] [id number] PCP - General Family Medicine 05/07/21 Stephen Nunez MD [address] [place] [address] Physician Radiation Oncology 12/28/23 Becky Tineo MD [address] [place] [address] [address] [place] [address] Cardiology 01/09/24 Charo Tsai APRN.PAPER PROCESSING MACHINE HELPER [address] [place] [address] Pulmonary Disease 03/04/24 Podlogar, SESAR Roberts.PAPER PROCESSING MACHINE HELPER [address] [facility] [place] [address] [facility] 07/06/24 Jenna Richardson APRN.PAPER PROCESSING MACHINE HELPER [address] [facility] [place] [address] [facility] 01/09/25 Digester Hand Relationship Specialty Start Date End Date Tima Tello MD [address] [facility] [place] [address] PCP - General Family Medicine 05/07/21 Stephen Nunez MD [address] [place] [address] Physician Radiation Oncology 12/28/23 Becky Tineo MD [address] [place] [address] [address] [place] [address] Cardiology 01/09/24 Cahro Tsai APRN.PAPER PROCESSING MACHINE HELPER [address] [place] [address] Pulmonary Disease 03/04/24 Podlogar, SESAR Roberts.PAPER PROCESSING MACHINE HELPER [address] [facility] [place] [address] [facility] 07/06/24 Jenna Richardson APRN.PAPER PROCESSING MACHINE HELPER [address] [facility] [place] [address] Rotary Driller Prospecting Family [facility] 01/09/25 Digester Hand Relationship Specialty Start Date End Date Tima Tello MD [address] [facility] [place], [place] 33[address] PCP - General Family Medicine 05/07/21 Stephen Nunez MD [address] [place], [place] 878871 Physician Radiation Oncology 12/28/23 Becky Tinoe MD [address] [place] [address] [phone] Cardiology 01/09/24 Charo Tsai, PROCESS SUPERVISOR.PAPER PROCESSING MACHINE HELPER [address] [place] [address] Pulmonary Disease 03/04/24 PodlogAlejandra alcala PROCESS SUPERVISOR.PAPER PROCESSING MACHINE HELPER [address] [facility] [place] [address] Rotary Driller Prospecting [facility] 07/06/24 Jenna Richardson PROCESS SUPERVISOR.PAPER PROCESSING MACHINE HELPER [address] [facility] [place] [address] Rotary Driller Prospecting Family Medicine 01/09/25 Digester Hand Relationship Specialty Start Date End Date Tima Tello MD [address] [facility] [place] [address] PCP - General Family Medicine 05/07/21 Stephen Nunez MD [address] [place] [address] Physician Radiation Oncology 12/28/23 Becky Tineo MD [address] [facility] [address] [place] [address] Cardiology 01/09/24 Charo Tsai, PROCESS SUPERVISOR.PAPER PROCESSING MACHINE HELPER [address] [place] [address] Pulmonary Disease 03/04/24 Podlogar, Alejandra PROCESS SUPERVISOR.PAPER PROCESSING MACHINE HELPER [address] [facility] [place] [address] [facility] Family [facility] 07/06/24 Jenna Richardson APRN.PAPER PROCESSING MACHINE HELPER [address] [place] [address] [facility] 01/09/25 Digester Hand Relationship Specialty Start Date End Date Tima Tello MD [address] [place] [address] PCP - General Family Medicine 05/07/21 Stephen Nunez MD [address] [place] [address] Physician Radiation Oncology 12/28/23 Becky Tineo MD [address] [facility] [address] [place] [address] Cardiology 01/09/24 Charo Tsai PROCESS SUPERVISOR.PAPER PROCESSING MACHINE HELPER [address] [facility] [place] [address] Pulmonary Disease 03/04/24 Podlogar, Alejandra PROCESS SUPERVISOR.PAPER PROCESSING MACHINE HELPER [address] [place], [place] 809811 [facility] 07/06/24 Jenna Richardson APRN.PAPER PROCESSING MACHINE HELPER [address] [place], [place] [phone] [facility] 01/09/25 Digester Hand Relationship Specialty Start Date End Date Tima Tello MD [address] [place], [place] [phone] PCP - General Family Medicine 05/07/21 Stephen Nunez MD [address] [place], [place] [phone] Physician Radiation Oncology 12/28/23 Becky Tineo MD [address] [place] [address] [phone] Cardiology 01/09/24 Charo Tsai APRN.PAPER PROCESSING MACHINE HELPER [address] [place], [place] [phone] Pulmonary Disease 03/04/24 PodlogarAlejandra APRN.PAPER PROCESSING MACHINE HELPER [address] [place], [place] [phone] [facility] 07/06/24 Jenna Richardson, PROCESS SUPERVISOR.PAPER PROCESSING MACHINE HELPER [address] [place], [place] 166891 [facility] 01/09/25 Goals (unrecognized section and content) Goals [...] sedation for opioid reversal - MUST notify condominium property manager provider immediately after first dose, may give [...] before administering. 0736 (See Alternative - Provider: Anias Awad RN) oxyCODONE (Roxicodone) immediate release tablet [...] BE BASED ON THE PRIMARY CLINICAL RECORDS. [facility]. provides no warranty or guarantee of the accuracy or completeness of information in this document.
[2025-07-26] MEDS: 0.9% Normal Saline (1000mL) 1,000 ML 999 ML IV (14:04)
[2025-07-26 14:10] LABS: Hematocrit 38.3 % (40-54); Hemoglobin 13.2 g/dL (13.0-16.5); Immature Granulocytes Count 0.040 X10^3/uL (0.0-0.0); Mean Corp Hgb Conc 34.5 g/dL (32-36); Mean Corpuscular Volume 84.2 fL (80-94); Mean Platelet Vol. 11.0 fl (6.2-12.0); NRBC Flagged by Analyzer 0 % (0-5); POSITIVE DIFFERENTIAL YES; Platelet Count 145 K/mm3 (150-450); RBC Distribution Width CV 12.7 % (11.6-14.6); RBC Distribution Width SD 38.7 fl (35.1-43.9); Red Blood Count 4.55 M/mm3 (4.6-6.2); White Blood Count 5.3 K/mm3 (4.4-11.0)
[2025-07-26 14:45] LABS: AST(SGOT) 17 U/L (<=37); Alanine Aminotransfer ALT/SGPT 11 U/L (<=46); Albumin, Serum 4.1 g/dL (3.4-4.8); Alkaline Phosphatase 88 U/L (40-129); Anion Gap 11 (7-18); BUN 13 mg/dL (4-19); BUN/Creat Ratio 14.0 RATIO (10-20); Calcium,Total 9.0 mg/dL (7.6-11.0); Carbon Dioxide 24.0 mmol/L (20.0-29.0); Chloride 104 mmol/L (96-106); Estimated Creatinine Clearance 64.99 ml/min (50-250); Globulin 2.9 g/dL (2.2-4.2); Glucose 93 mg/dL (70-99); Lipase 29 U/L (13-75); Potassium 4.5 mmol/L (3.5-5.1)
[2025-07-26 15:23] VITALS: BP 132/78; PULSE 67; RESP 21; O2SAT 99
[2025-07-26 15:23] LABS: Color, Urine Yellow (Yellow); Glucose, Dipstick Normal (Normal); Ketone-Dipstick Negative (Negative); Leukocyte Esterase-Dipstick Negative /ul (Negative); Nitrite-Dipstick Negative (Negative); Occult Blood-Urine 10 /ul (Negative); Protein-Dipstick 15 mg/dl (Negative); Specific Gravity, Urine 1.010 (1.002-1.030); Urine Bilirubin Dipstick Negative (Negative)
[2025-07-26 15:51] LABS: Mucous, Urine 2+ /hpf (<or=2+)
[2025-07-26 15:53] VITALS: BP 142/105; PULSE 77; RESP 16; TEMP 36.6; O2SAT 97
[2025-07-26 15:53] LABS: Red Blood Cells-Urine 5-10 SEEN /hpf (0-5); Squamous Epithelial Cells - UA 0-5 SEEN /hpf (0-5)
== END 2025-07-26 15:55 | disposition home or self-care (01) ==
PROVIDERS: Emergency Provider Emergency Medicine; PCP Family Medicine; Visit Provider Emergency Medicine
DX: R10.9 Unspecified abdominal pain (principal); I25.10 Atherosclerotic heart disease of native coronary artery without angina pectoris; I25.2 Old myocardial infarction; K59.00 Constipation, unspecified; Z95.5 Presence of coronary angioplasty implant and graft; Z87.891 Personal history of nicotine dependence; Z95.1 Presence of aortocoronary bypass graft
CPT/HCPCS: 74177; 80053; 81001; 83690; 85025; 96360; 96361; 99283; Q9967; A4216